=== PATIENT | female | born 1970 | race African-American/Black ===

== ENCOUNTER 2019-10-15 02:01 | Day surgery (SDC) | payer OTHER, SELFPAY ==
[2019-10-13 12:51] VITALS: BMI 37.4
--- NOTE | 2019-10-15 10:00 | WPDANESEPPF ---
Anes - Initial Pre Proc Eval Procedure: Operation Date: 10/15/19 10:00 Proposed Procedures p Esophagogastroduodenoscopy - Randall Bartholomew MD Date/Time: 10/15/19 10:00 Surgeon: Randall Bartholomew MD Pre Op Diagnosis: Epigastric Pain Patient Data Age: 49 Gender: F Height: 5 ft 5 in Weight: 102 kg Allergies Allergy/AdvReac Type Severity Reaction Status Date / Time adhesive tape Allergy Unknown Rash Verified 10/15/19 10:00 Home Medications Medication Instructions Recorded Confirmed Type alprazolam 0.5 mg PO QAM 10/13/19 10/13/19 History cyclobenzaprine 10 mg PO TID PRN 10/13/19 10/13/19 History ergocalciferol (vitamin D2) 50,000 unit PO WEEKLY 10/13/19 10/13/19 History estradiol 1 g VAGINAL 5XW 10/13/19 10/13/19 History hydrocodone-acetaminophen 1 tablet PO TID 10/13/19 10/13/19 History hydroxychloroquine 200 mg PO BID 10/13/19 10/13/19 History levothyroxine 50 mcg PO QAM 10/13/19 10/13/19 History lisinopril 40 mg PO QAM 10/13/19 10/13/19 History metoprolol succinate 200 mg PO HS 10/13/19 10/13/19 History pregabalin 150 mg PO BID 10/13/19 10/13/19 History quetiapine 50 mg PO HS 10/13/19 10/13/19 History ranitidine HCl 150 mg PO BID PRN 10/13/19 10/13/19 History risperidone 1 mg PO BID 10/13/19 10/13/19 History trazodone 150 mg PO HS 10/13/19 10/13/19 History venlafaxine 225 mg PO QAM 10/13/19 10/13/19 History Patient hx anesthesia problems: none Family hx anesthesia problems: none PMFSH Family History Family History Other Family history of malignant neoplasm Hypertension Social History Social History Smoking status: Never smoker Alcohol intake: never Anes - Eval Final PreProcedure Day of Procedure 10/15/19 10:00 Patient weight: obese Heart: regular rate and rhythm Lungs: clear to auscultation Airway: Mallampati scale class II Neurological: alert and oriented ASA classification: III Emergent: no Anesthetic plan: proceed Anesthesia type and monitoring: general GIVS and standard monitoring Informed Consent: The patient's anesthetic plan and its attendant risks and benefits were discussed with the patient/family/POA. Questions were solicited and answers provided to the satisfaction of the patient/family/POA.
[2019-10-15] MEDS: AMPICILLIN 2 GM/NS 100 ML 2 GM/100 ML BAG IVPB (10:03)
[2019-10-15 10:04] VITALS: BMI 37.0
--- NOTE | 2019-10-15 10:13 | PM.HPGS ---
History of Present Illness History of Present Illness Consent: Risks, benefits, and alternatives have been discussed and questions answered. Patient agrees to proceed with procedure. Chief complaint: Epigastric Pain Narrative: Chela Mcnulty is a 49 year old female who developed severe epigastric pain last week. She was seen in emergency room. CT scan was unremarkable that she was told by the emergency room that she needed EGD because there was possibly ?a hole? now she has persistent pain which becomes worse after eating. [facility] Family History Family History Other Family history of malignant neoplasm Hypertension Social History Social History Smoking status: Never smoker Alcohol intake: never Meds Home Medications and Allergies Home Medications Medication Instructions Recorded Confirmed Type alprazolam 0.5 mg PO QAM 10/13/19 10/13/19 History cyclobenzaprine 10 mg PO TID PRN 10/13/19 10/13/19 History ergocalciferol (vitamin D2) 50,000 unit PO WEEKLY 10/13/19 10/13/19 History estradiol 1 g VAGINAL 5XW 10/13/19 10/13/19 History hydrocodone-acetaminophen 1 tablet PO TID 10/13/19 10/13/19 History hydroxychloroquine 200 mg PO BID 10/13/19 10/13/19 History levothyroxine 50 mcg PO QAM 10/13/19 10/13/19 History lisinopril 40 mg PO QAM 10/13/19 10/13/19 History metoprolol succinate 200 mg PO HS 10/13/19 10/13/19 History pregabalin 150 mg PO BID 10/13/19 10/13/19 History quetiapine 50 mg PO HS 10/13/19 10/13/19 History ranitidine HCl 150 mg PO BID PRN 10/13/19 10/13/19 History risperidone 1 mg PO BID 10/13/19 10/13/19 History trazodone 150 mg PO HS 10/13/19 10/13/19 History venlafaxine 225 mg PO QAM 10/13/19 10/13/19 History Allergies Allergy/AdvReac Type Severity Reaction Status Date / Time adhesive tape Allergy Unknown Rash Verified 10/15/19 10:00 Exam Const: General: alert Orientation/consciousness: patient oriented x3 Resp: Auscultation: clear to auscultation bilaterally Cardio: Rhythm: regular rhythm GI: GI Palp: Yes Soft to palpation and No Tenderness to palpation present (GI) Neuro: General: patient oriented x3 Assessment and Plan Assessment and plan (1) Epigastric pain: Code(s): R10.13 - Epigastric pain Status: Acute Assessment and Plan: EGD with possible biopsy or dilatation or cautery.
[2019-10-15] MEDS: LACTATED RINGERS 1,000 ML 150 ML IV CONT (10:15)
[2019-10-15 10:37] VITALS: BP 118/66; PULSE 83; RESP 22; O2SAT 100
[2019-10-15 10:47] VITALS: BP 140/75; PULSE 83; RESP 22; O2SAT 100
[2019-10-15 10:57] VITALS: BP 163/77; PULSE 83; RESP 22; O2SAT 100
[2019-10-15] MEDS: HEPARIN SOD FLUSH 500 UNITS/5 ML SYRINGE IV PUSH (11:10)
== END 2019-10-15 11:21 | disposition home or self-care (01) ==
PROVIDERS: PCP Internal Medicine Infectious Disease; Visit Provider Internal Medicine Gastroenterology
PROC: 0DJ08ZZ Inspection of Upper Intestinal Tract, Via Natural or Artificial Opening Endoscopic (ICD-10-PCS; CPT 43235; principal; 2019-10-15 10:00)
DX: K21.0 Gastro-esophageal reflux disease with esophagitis (principal); I10 Essential (primary) hypertension; E66.9 Obesity, unspecified; Z68.37 Body mass index [BMI] 37.0-37.9, adult
CPT/HCPCS: 43239; 88305; J0290; J2704; J7120

== ENCOUNTER 2020-04-08 17:22 | Outpatient (CLI) | payer OTHER, SELFPAY ==
[2020-04-08 17:43] LABS: Basophils Percent Auto 0.6 % (0.2-1.2); Eosinophils Absolute Auto 0.2 K/mm3 (0-0.3); Eosinophils Percent Auto 2.5 % (0-4.4); Hematocrit 32.6 % (37.0-47.0); Immature Granulocyte Absolute 0.02 K/mm3 (0.00-0.031); Immature Granulocyte Percent A 0.3 % (0-0.5); Lymphocytes Percent Auto 42.8 % (18.3-44.2); Mean Corpuscular HGB Conc 30.7 g/dl (32-36); Mean Corpuscular Hemoglobin 23.9 pg (26-34); Mean Platelet Volume 8.9 fl (7.4-10.4); Monocytes Absolute Auto 0.6 K/mm3 (0.1-0.6); Monocytes Percent Auto 8.3 % (2.6-8.5); Neutrophils Absolute Auto 3.1 K/mm3 (1.3-6.7); Neutrophils Percent Auto 45.5 % (45.5-73.1); Platelet Count Result 295 k/mm3 (150-375); Red Blood Count 4.18 M/mm3 (4.2-5.4); Red Cell Distribution Width 18.6 % (11.5-14.5); White Blood Count 6.8 K/mm3 (4.5-10.0)
[2020-04-08 17:57] LABS: Alanine Aminotransferase 21 U/L (4-35); Albumin Level 3.9 g/dL (3.5-5.1); Alkaline Phosphatase 76 U/L (38-126); Anion Gap 10.3 mmol/L (7-16); Aspartate Amino Transferase 30 U/L (14-36); Bilirubin,Total 0.2 mg/dL (0.2-1.3); Blood Urea Nitrogen 8 mg/dL (7-17); Calcium 9.1 mg/dL (8.4-10.2); Carbon Dioxide 27 mmol/L (22-30); Chloride 104 mmol/L (98-107); Estimated Glomerular Filt Rate > 60; Glucose 98 mg/dL (65-105); Potassium 4.3 mmol/L (3.4-5.0); Sodium 137 mmol/L (137-145)
[2020-04-13 06:03] LABS: CA 27.29 15 U/mL (<38)
== END 2020-04-08 17:23 | disposition home or self-care (01) ==
PROVIDERS: PCP Internal Medicine Infectious Disease; Visit Provider Internal Medicine Hematology & Oncology
DX: C50.412 Malignant neoplasm of upper-outer quadrant of left female breast (principal); Z17.0 Estrogen receptor positive status [ER+]
CPT/HCPCS: 36415; 80053; 85025; 86300

== ENCOUNTER 2020-05-31 01:03 | Outpatient (CLI) | payer OTHER, SELFPAY ==
[2020-05-31 18:01] LABS: SARS-CoV-2 RNA PCR Negative
== END 2020-05-31 01:04 | disposition home or self-care (01) ==
LOC: ANHCOVIDDT 01:04
PROVIDERS: PCP Internal Medicine Infectious Disease; Visit Provider Orthopaedic Surgery
DX: Z01.812 Encounter for preprocedural laboratory examination (principal); Z20.828 Contact with and (suspected) exposure to other viral communicable diseases
CPT/HCPCS: 87635; C9803; U0003

== ENCOUNTER 2020-06-01 19:56 | Emergency (ER) | payer OTHER, SELFPAY ==
--- NOTE | ~2020-06-01 | CT_ITS ---
EXAMINATION: CT abdomen pelvis w con DATE: 06/01/2020 22:46 INDICATION: Right-sided abdominal pain. TECHNIQUE: Computed tomography (CT) of the abdomen and pelvis was performed with 100 mL Omnipaque-350 intravenous contrast. Automated exposure control and iterative reconstruction technique were employe d. The dose-length product was 967.57 mGy-cm. COMPARISON: 03/21/2018 FINDINGS: Minimal atelectasis in the dependent lower lobes. Heart size is normal. No pericardial or pleural eff usion. Bilateral breast implants. Distal tip of a central venous catheter at the superior cavoatrial junction. Cholecystectomy clips at the gallbladder fossa. Liver, pancreas, bilateral adrenal glands a nd kidneys are normal. A few small splenic calcifications consistent with old granulomatous disease. No abnormal bowel wall thickening or obstruction. Fluid in the small bowel and throughout the ascendi ng and transverse colon consistent with diarrhea. Appendix is not visualized and reportedly surgicall y absent. Bladder is normal. The uterus is not identified and has likely been surgically resected. No free intraperitoneal gas or fluid. No pathologically enlarged abdominal or pelvic lymphadenopathy. P ostoperative changes with scarring and surgical clips along the anterior pelvic wall. Moderate to sev ere lower lumbar facet osteoarthritis most prominent on the right at L4-L5. Otherwise mild lumbar spo ndylosis. IMPRESSION: 1. Fluid throughout the nondilated small bowel and proximal half of the colon consistent with diarrhe a. Correlate clinically for enteritis. Reviewed, dictated and finalized at location [facility]. IMPRESSION: 1. Fluid throughout the nondilated small bowel and proximal half of the colon c onsistent with diarrhea. Correlate clinically for enteritis.
--- NOTE | ~2020-06-01 | XR_ITS ---
EXAMINATION: XR chest 1V portable DATE: 06/01/2020 21:51 INDICATION: Port catheter positioning check TECHNIQUE: frontal view of the chest was obtained. COMPARISON: Chest radiograph dated 08/05/2019 FINDINGS: Right internal jugular central venous port catheter with distal tip near the superior cavoatrial junc tion. Subtle opacity left costophrenic angle. Calcified nodule at the left apex consistent with old g ranulomatous disease. No pulmonary edema, pleural effusion or pneumothorax. The cardiomediastinal conchita houette is normal. Reverse left total shoulder arthroplasty. IMPRESSION: 1. Mild opacity at the lateral left lung base most likely lingular atelectasis although differential includes pneumonia. Reviewed, dictated and finalized at location [facility].
[2020-06-01 20:00] VITALS: BP 156/101; PULSE 115; RESP 19; TEMP 36.1; O2SAT 98
[2020-06-01 20:35] LABS: Add Urine Microscopic? YES; Appearance Urine Clear (Clear); Bilirubin Urine Negative (Negative); Blood Urine 1+ (Negative); Color Urine Straw (Yellow); Glucose Urine UA Negative (Negative); Ketones Urine Negative (Negative); Leukocyte Esterase Ur Trace LEU/UL (Negative); Mucus Urine Rare /lpf; Nitrate Urine Negative (Negative); Protein Urine Negative (Negative); RBC Urine 0-2 /hpf (0-2); Specific Grav Ur 1.016 (1.001-1.035); Squamous Epithelial Cell Urine Few /hpf (Few); Urobilinogen Urine Negative mg/dL (<2.0); WBC Urine 0-3 /hpf
[2020-06-01 21:05] VITALS: BP 140/101; PULSE 95; RESP 12; O2SAT 96
[2020-06-01 21:47] LABS: Basophils Percent Auto 0.5 % (0.2-1.2); Eosinophils Absolute Auto 0.1 K/mm3 (0-0.3); Eosinophils Percent Auto 2.1 % (0-4.4); Hematocrit 37.5 % (37.0-47.0); Hemoglobin 11.9 g/dL (12.0-15.0); Immature Granulocyte Absolute 0.01 K/mm3 (0.00-0.031); Immature Granulocyte Percent A 0.2 % (0-0.5); Lymphocytes Absolute Auto 2.28 K/mm3 (0.9-3.2); Mean Corpuscular HGB Conc 31.7 g/dl (32-36); Mean Corpuscular Hemoglobin 25.8 pg (26-34); Mean Corpuscular Volume 81.2 fl (80-100); Mean Platelet Volume 8.9 fl (7.4-10.4); Monocytes Absolute Auto 0.4 K/mm3 (0.1-0.6); Monocytes Percent Auto 7.5 % (2.6-8.5); Neutrophils Percent Auto 50.7 % (45.5-73.1); Platelet Count Result 252 k/mm3 (150-375); Red Blood Count 4.62 M/mm3 (4.2-5.4); Red Cell Distribution Width 17.2 % (11.5-14.5); White Blood Count 5.8 K/mm3 (4.5-10.0)
[2020-06-01] MEDS: MORPHINE SULFATE (*CRX) 4 MG/ML INJ IV PUSH ×2 (21:51→23:17)
[2020-06-01 21:59] LABS: Alanine Aminotransferase 20 U/L (4-35); Albumin Level 4.1 g/dL (3.5-5.1); Alkaline Phosphatase 74 U/L (38-126); Anion Gap 9 mmol/L (8-16); Aspartate Amino Transferase 29 U/L (14-36); Bilirubin,Total 0.4 mg/dL (0.2-1.3); Blood Urea Nitrogen 16 mg/dL (7-17); Calcium 9.2 mg/dL (8.4-10.2); Carbon Dioxide 28 mmol/L (22-30); Chloride 104 mmol/L (98-107); Estimated CRCL calculation 83 ml/min; Estimated Glomerular Filt Rate > 60; Glucose 86 mg/dL (65-105); Lipase 209 U/L (23-300); Potassium 3.9 mmol/L (3.4-5.0); Sodium 141 mmol/L (137-145)
--- NOTE | 2020-06-01 22:03 | ED.GENADULT ---
HPI - General Adult General Chief complaint: Back Pain/Injury Stated complaint: right flank pain Time Seen by Provider: 06/01/20 20:59 History of Present Illness HPI narrative: Patient is a 50-year-old female who presents ER with right-sided abdominal pain. Is in very lateral aspect of the abdomen inferior to the ribs. No radiation. Worse with twisting and moving. No nausea/vomiting. No urinary frequency urgency. She has had no dysuria. No previous kidney stones. Reports her gallbladder is been removed. Patient has had surgery on that part of her body from previous breast cancer issues. Related Data Home Medications Medication Instructions Recorded Confirmed alprazolam 0.5 mg PO QAM 10/13/19 05/18/20 cyclobenzaprine 10 mg PO TID PRN 10/13/19 05/18/20 ergocalciferol (vitamin D2) 50,000 unit PO WEEKLY 10/13/19 05/18/20 hydrocodone-acetaminophen 1 tablet PO TID PRN 10/13/19 05/18/20 hydroxychloroquine 200 mg PO DAILY 10/13/19 05/18/20 levothyroxine 50 mcg PO QAM 10/13/19 05/18/20 lisinopril 40 mg PO QAM 10/13/19 05/18/20 metoprolol succinate 200 mg PO HS 10/13/19 05/18/20 quetiapine 300 mg PO HS 10/13/19 05/18/20 trazodone 150 mg PO HS 10/13/19 05/18/20 venlafaxine 225 mg PO QAM 10/13/19 05/18/20 ferrous sulfate 325 mg PO DAILY 05/18/20 05/18/20 pregabalin [Lyrica] 300 mg PO BID 05/18/20 05/18/20 Allergies Allergy/AdvReac Type Severity Reaction Status Date / Time adhesive tape Allergy Unknown Rash Verified 05/18/20 13:26 Review of Systems Review of Systems: All systems reviewed & are unremarkable except as noted in HPI and below Constitutional: Constitutional: Denies fever(s) and Denies weakness ENT: Denies nasal congestion and Denies sore throat Cardiovascular: Cardiovascular: Denies chest pain, Denies rapid heart rate and Denies radiating jaw, neck or arm pain Respiratory: Respiratory: Denies cough, Denies dyspnea and Denies wheezing Gastrointestinal: Gastrointestinal: Reports abdominal pain, Reports diarrhea, Denies nausea and Denies vomiting Genitourinary: Genitourinary: Denies nocturia and Denies dysuria PMFSH Social History Social History Smoking status: Never smoker Smokeless tobacco user: chewing tobacco Second hand tobacco smoke exposure: No Additional smoking assessment comments: chewed tobacco occassionally as a teen Alcohol intake: unknown Substance use: never Gender identity (if verbalized by the patient): Female Spiritual care concerns: No Exam Narrative: Exam Narrative: GENERAL: Well-appearing, well-nourished, and in no acute distress. HEAD: Normocephalic, atraumatic. CHEST: Clear to auscultation. No respiratory distress. HEART: Regular rate and rhythm. Normal peripheral pulses. ABDOMEN: Soft, tender palpation right lateral abdomen in the mid axillary line without guarding, nondistended. EXTREMITIES: Normal range of motion. No edema. SKIN: Warm, dry, no rash. NEURO: Alert and oriented x3. PSYCH: Normal mood and affect. Course Course Emergency Course: Informed of results. Patient has had diarrhea in the ER. Discharge home. Vital Signs Vital signs: Vital Signs Temperature 97 F L 06/01/20 20:00 Pulse Rate 115 H 06/01/20 20:00 Respiratory Rate 06/01/20 20:00 Blood Pressure 156/101 H 06/01/20 20:00 Pulse Oximetry 98 06/01/20 20:00 Temperature 97 F L 06/01/20 20:00 Pulse Rate 78 06/01/20 23:28 Respiratory Rate 06/01/20 23:28 Blood Pressure 133/87 06/01/20 23:28 Pulse Oximetry 99 06/01/20 23:28 Medical Decision Making Vital Signs Vital Signs: Vital Signs Temperature 97 F L 06/01/20 20:00 Pulse Rate 115 H 06/01/20 20:00 Respiratory Rate 06/01/20 20:00 Blood Pressure 156/101 H 06/01/20 20:00 Pulse Oximetry 98 06/01/20 20:00 Temperature 97 F L 06/01/20 20:00 Pulse Rate 78 06/01/20 23:28 Respiratory Rate 19 06/01/20 23:28 Blood Pressure 133/
--- NOTE | 2020-06-01 22:51 | PC.NURSE ---
Pt requesting more pain medication. ERP notified.
[2020-06-01] MEDS: CENTRAL LINE FLUSH 10 ML IV PUSH (23:08)
[2020-06-01] MEDS: DICYCLOMINE HCL 10 MG CAPSULE 20 MG PO (23:18)
[2020-06-01 23:28] VITALS: BP 133/87; PULSE 78; RESP 19; O2SAT 99
[2020-06-01 23:50] VITALS: BP 131/80; PULSE 77; RESP 12; O2SAT 97
[2020-06-01] MEDS: HEPARIN SOD FLUSH 500 UNITS/5 ML SYRINGE IV PUSH (23:53)
== END 2020-06-01 23:50 | disposition home or self-care (01) ==
PROVIDERS: Emergency Provider Emergency Medicine; PCP Internal Medicine Infectious Disease
DX: K52.9 Noninfective gastroenteritis and colitis, unspecified (principal); R10.9 Unspecified abdominal pain; Z87.891 Personal history of nicotine dependence; R91.8 Other nonspecific abnormal finding of lung field
CPT/HCPCS: 36415; 71045; 74177; 80053; 81001; 83690; 85025; 96374; 96376; 99284; A9270; J2270; Q9967

== ENCOUNTER 2020-07-16 17:55 | Emergency (ER) | payer OTHER, SELFPAY ==
[2020-07-16] VITALS (7 sets, daily range): BP systolic 123–135; BP diastolic 78–97; PULSE 74–96; RESP 14–18; TEMP 36.6; O2SAT 97–99
--- NOTE | ~2020-07-16 | CT_ITS ---
EXAMINATION: CT abdomen pelvis w con DATE: 07/16/2020 20:20 INDICATION: Generalized abdominal pain, lower central abdominal pain. Nausea. TECHNIQUE: Computed tomography (CT) of the abdomen and pelvis was performed with 100 cc Omnipaque 350 intravenous contrast. Automated exposure control and iterative reconstruction technique were employe d. Exam dose: 1022.71 mGy-cm total exam DLP. COMPARISON: 06/01/2020 CT abdomen pelvis FINDINGS: Mild groundglass infiltrates and/or atelectasis in the lower lung zones. Bilateral breast implants. Mild cardiomegaly. No pericardial or pleural effusion. Status post cholecystectomy. No bile duct or pancreatic duct dilatation. No hepatic, splenic, pancrea tic, and adrenal or renal space-occupying mass lesion is detected. No urinary tract calculus or hydro ureteronephrosis. The urinary bladder is unremarkable. Status post hysterectomy. There is a prominent amount of fecal material within the colon but no evidence of bowel obstruction, bowel wall thickening, pneumatosis or intraperitoneal free air. Small fat-containing umbilical hernia. Lower anterior pelvic wall repair. Included skeletal structures are unremarkable. IMPRESSION: Mild groundglass infiltrates and/or atelectasis in the lower lung zones Status post cholecystectomy Status post hysterectomy Mild cardiomegaly Reviewed, dictated and finalized at [facility]. Reviewed, dictated and finalized at location [facility]. 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
[2020-07-16 18:59] LABS: Basophils Percent Auto 0.5 % (0.2-1.2); Eosinophils Absolute Auto 0.1 K/mm3 (0-0.3); Eosinophils Percent Auto 1.4 % (0-4.4); Hematocrit 36.9 % (37.0-47.0); Hemoglobin 11.9 g/dL (12.0-15.0); Immature Granulocyte Absolute 0.02 K/mm3 (0.00-0.031); Immature Granulocyte Percent A 0.3 % (0-0.5); Lymphocytes Absolute Auto 2.06 K/mm3 (0.9-3.2); Mean Corpuscular HGB Conc 32.2 g/dl (32-36); Mean Corpuscular Hemoglobin 26.7 pg (26-34); Mean Corpuscular Volume 82.7 fl (80-100); Mean Platelet Volume 8.4 fl (7.4-10.4); Monocytes Absolute Auto 0.5 K/mm3 (0.1-0.6); Monocytes Percent Auto 6.9 % (2.6-8.5); Neutrophils Absolute Auto 4.6 K/mm3 (1.3-6.7); Neutrophils Percent Auto 62.9 % (45.5-73.1); Platelet Count Result 293 k/mm3 (150-375); Red Blood Count 4.46 M/mm3 (4.2-5.4); Red Cell Distribution Width 16.4 % (11.5-14.5); White Blood Count 7.4 K/mm3 (4.5-10.0)
[2020-07-16 19:04] LABS: Add Urine Microscopic? YES; Appearance Urine Clear (Clear); Bilirubin Urine Negative (Negative); Blood Urine Negative (Negative); Color Urine Yellow (Yellow); Glucose Urine UA Negative (Negative); Ketones Urine Negative (Negative); Leukocyte Esterase Ur 1+ LEU/UL (Negative); Mucus Urine Rare /lpf; Nitrate Urine Negative (Negative); Protein Urine Negative (Negative); RBC Urine 0-2 /hpf (0-2); Specific Grav Ur 1.014 (1.001-1.035); Squamous Epithelial Cell Urine Few /hpf (Few); Urobilinogen Urine Negative mg/dL (<2.0)
[2020-07-16 19:14] LABS: Alanine Aminotransferase 21 U/L (4-35); Albumin Level 4.1 g/dL (3.5-5.1); Alkaline Phosphatase 69 U/L (38-126); Anion Gap 10 mmol/L (8-16); Aspartate Amino Transferase 27 U/L (14-36); Bilirubin,Total 0.3 mg/dL (0.2-1.3); Blood Urea Nitrogen 19 mg/dL (7-17); Carbon Dioxide 25 mmol/L (22-30); Chloride 103 mmol/L (98-107); Estimated CRCL calculation 82 ml/min; Estimated Glomerular Filt Rate > 60; Glucose 109 mg/dL (65-105); Lipase 128 U/L (23-300); Potassium 4.2 mmol/L (3.4-5.0); Sodium 138 mmol/L (137-145)
--- NOTE | 2020-07-16 19:20 | PC.NURSE ---
REPORT TO DARRON GRANADOS AT THIS TIME, HE HAS ASSUMED PT CARE.
[2020-07-16] MEDS: LACTATED RINGERS 1,000 ML 999 ML IV CONT (19:41)
[2020-07-16] MEDS: ONDANSETRON INJ 4 MG/2 ML VIAL IV PUSH (19:42)
[2020-07-16] MEDS: HYDROmorphone HCL INJ (*CRX) 1 MG/ML SYR IV PUSH (19:42)
--- NOTE | 2020-07-16 19:49 | ED.ABDPAIN ---
HPI - Abdominal Pain General Chief Complaint: Abdominal Pain Stated Complaint: abd pain Time Seen by Provider: 07/16/20 19:03 Source: patient Mode of arrival: ambulatory Limitations: no limitations History of Present Illness HPI narrative: This patient is a 50 year old female who presents for evaluation of mid abdominal pain since Sunday. She developed sudden onset pain after having a bowel movement. Her pain has remained constant since Sunday. She has associated nausea but no vomiting. She reports her last bowel movement was 2 days ago but she is passing flatus. She denies fever or chills. She has been taking her chronic hydrocodone and tylenol for her pain without relief. MD elicited complaint: abdominal pain Pain Consistency: constant Related Data Home Medications Medication Instructions Recorded Confirmed alprazolam 0.5 mg PO QAM 10/13/19 05/18/20 cyclobenzaprine 10 mg PO TID PRN 10/13/19 05/18/20 ergocalciferol (vitamin D2) 50,000 unit PO WEEKLY 10/13/19 05/18/20 hydrocodone-acetaminophen 1 tablet PO TID PRN 10/13/19 05/18/20 hydroxychloroquine 200 mg PO DAILY 10/13/19 05/18/20 levothyroxine 50 mcg PO QAM 10/13/19 05/18/20 lisinopril 40 mg PO QAM 10/13/19 05/18/20 metoprolol succinate 200 mg PO HS 10/13/19 05/18/20 quetiapine 300 mg PO HS 10/13/19 05/18/20 trazodone 150 mg PO HS 10/13/19 05/18/20 venlafaxine 225 mg PO QAM 10/13/19 05/18/20 ferrous sulfate 325 mg PO DAILY 05/18/20 05/18/20 pregabalin [Lyrica] 300 mg PO BID 05/18/20 05/18/20 Allergies Allergy/AdvReac Type Severity Reaction Status Date / Time adhesive tape Allergy Unknown Rash Verified 07/16/20 18:09 Review of Systems Review of Systems: All systems reviewed & are unremarkable except as noted in HPI and below Constitutional: Constitutional: Denies chills and Denies fever(s) Gastrointestinal: Gastrointestinal: Reports abdominal pain, Reports nausea and Denies vomiting Genitourinary: Genitourinary: Denies hematuria, Denies dysuria and Denies vaginal discharge Musculoskeletal: Musculoskeletal: Denies back pain [facility] Past Medical History Medical History Breast cancer HTN (hypertension) Lupus (systemic lupus erythematosus) Sepsis Surgical History Surgical History (Updated 07/16/20 @ 19:53 by Cristine Weldon MD) H/O mastectomy H/O: hysterectomy Family History Family History Other Family history of malignant neoplasm Hypertension Social History Social History Smoking status: Never smoker Smokeless tobacco user: chewing tobacco Second hand tobacco smoke exposure: No Additional smoking assessment comments: chewed tobacco occassionally as a teen Alcohol intake: unknown Substance use: never Gender identity (if verbalized by the patient): Female Spiritual care concerns: No Exam Const: General: no acute distress and alert Orientation/consciousness: patient oriented x3 HENMT: Head: atraumatic Face and sinus: face symmetric Mouth: Yes Normal oral and palatal mucosa present and Yes oropharynx normal Eyes: EOM: EOMs intact bilaterally Chest: Chest palpation & inspection: normal inspection of the chest Resp: Effort & Inspection: normal respiratory effort and no retractions Auscultation: clear to auscultation bilaterally Cardio: Rate: regular rate Rhythm: regular rhythm Heart sounds: no murmurs GI: GI Palp: Yes Soft to palpation, Yes Tenderness to palpation present (GI) (Diffuse), No Guarding due to palpation present (GI), No Rigid due to palpation, No Hernia present and No Palpable mass present Skin: General skin exam: normal color Rashes: no rashes Neuro: General: patient oriented x3 and moves all extremities Psych: Mental Status: mental status grossly normal Affect: normal affect Course Vital Signs Vital signs: Vital Signs T
--- NOTE | 2020-07-16 19:55 | ED.ABDPAIN ---
HPI - Abdominal Pain General Chief Complaint: Abdominal Pain Stated Complaint: abd pain Time Seen by Provider: 07/16/20 19:03 Source: patient Mode of arrival: ambulatory Limitations: no limitations History of Present Illness HPI narrative: This patient is a 50 year old female who presents for mid abdominal pain since Sunday. She states this pain started after having a bowel movement, and it has remained constant. She has been taking hydrocodone and tylenol for her pain without relief. She reports nausea but no vomiting. Her last bowel movement was 2 days ago but she reports she is passing flatus. She denies similar pain in the past. MD elicited complaint: abdominal pain Pain Consistency: constant Related Data Home Medications Medication Instructions Recorded Confirmed alprazolam 0.5 mg PO QAM 10/13/19 05/18/20 cyclobenzaprine 10 mg PO TID PRN 10/13/19 05/18/20 ergocalciferol (vitamin D2) 50,000 unit PO WEEKLY 10/13/19 05/18/20 hydrocodone-acetaminophen 1 tablet PO TID PRN 10/13/19 05/18/20 hydroxychloroquine 200 mg PO DAILY 10/13/19 05/18/20 levothyroxine 50 mcg PO QAM 10/13/19 05/18/20 lisinopril 40 mg PO QAM 10/13/19 05/18/20 metoprolol succinate 200 mg PO HS 10/13/19 05/18/20 quetiapine 300 mg PO HS 10/13/19 05/18/20 trazodone 150 mg PO HS 10/13/19 05/18/20 venlafaxine 225 mg PO QAM 10/13/19 05/18/20 ferrous sulfate 325 mg PO DAILY 05/18/20 05/18/20 pregabalin [Lyrica] 300 mg PO BID 05/18/20 05/18/20 Allergies Allergy/AdvReac Type Severity Reaction Status Date / Time adhesive tape Allergy Unknown Rash Verified 07/16/20 18:09 Review of Systems Review of Systems: All systems reviewed & are unremarkable except as noted in HPI and below Constitutional: Constitutional: Denies chills and Denies fever(s) Cardiovascular: Cardiovascular: Denies chest pain Respiratory: Respiratory: Denies cough and Denies dyspnea Gastrointestinal: Gastrointestinal: Reports abdominal pain, Denies diarrhea, Reports nausea and Denies vomiting Genitourinary: Genitourinary: Denies nocturia and Denies dysuria [facility] Past Medical History Medical History (Updated 07/17/20 @ 00:00 by Cornelia Whitney) Breast cancer HTN (hypertension) Lupus (systemic lupus erythematosus) Sepsis Surgical History Surgical History (Updated 07/16/20 @ 19:53 by Cristine Weldon MD) H/O mastectomy H/O: hysterectomy Family History Family History Other Family history of malignant neoplasm Hypertension Social History Social History Smoking status: Never smoker Smokeless tobacco user: chewing tobacco Second hand tobacco smoke exposure: No Additional smoking assessment comments: chewed tobacco occassionally as a teen Alcohol intake: unknown Substance use: never Gender identity (if verbalized by the patient): Female Spiritual care concerns: No Exam Const: General: no acute distress and alert Orientation/consciousness: patient oriented x3 HENMT: Head: atraumatic Face and sinus: face symmetric Throat: posterior oropharynx normal Eyes: EOM: EOMs intact bilaterally Resp: Effort & Inspection: normal respiratory effort and no retractions Auscultation: clear to auscultation bilaterally Cardio: Rate: regular rate Rhythm: regular rhythm Heart sounds: no murmurs GI: GI Palp: Yes Soft to palpation, Yes Tenderness to palpation present (GI) (Diffuse), No Guarding due to palpation present (GI), No Rigid due to palpation and No Hernia present Auscultation: Hypoactive bowel sounds present Skin: General skin exam: normal color Rashes: no rashes Neuro: General: patient oriented x3 and moves all extremities Psych: Mental Status: mental status grossly normal Affect: normal affect Course Reevaluation(s) Reevaluation #1: I discussed with patient about labs and CT . CT shows constipation.She reports she takes a pil
[2020-07-16] MEDS: DICYCLOMINE HCL INJ 20 MG/2 ML VIAL IM (20:58)
[2020-07-16] MEDS: HEPARIN SOD FLUSH 500 UNITS/5 ML SYRINGE (21:43)
== END 2020-07-16 22:00 | disposition home or self-care (01) ==
PROVIDERS: Emergency Medicine; Emergency Provider General Practice; PCP Internal Medicine Infectious Disease
DX: K59.00 Constipation, unspecified (principal); R10.9 Unspecified abdominal pain; M32.9 Systemic lupus erythematosus, unspecified; I10 Essential (primary) hypertension; Z85.3 Personal history of malignant neoplasm of breast; Z90.10 Acquired absence of unspecified breast and nipple; F17.220 Nicotine dependence, chewing tobacco, uncomplicated; I51.7 Cardiomegaly; R91.8 Other nonspecific abnormal finding of lung field
CPT/HCPCS: 36415; 74177; 80053; 81001; 83690; 85025; 96361; 96372; 96374; 96375; 99284; J0500; J1170; J2405; J7120; Q9967

== ENCOUNTER 2020-09-05 18:53 | Emergency (ER) | payer OTHER, SELFPAY ==
--- NOTE | ~2020-09-05 | XR_ITS ---
EXAMINATION: XR chest 1V portable INDICATION: Cough TECHNIQUE: Portable AP chest at 1933 hours COMPARISON: 06/01/2020 FINDINGS: A right internal jugular Port-A-Cath ends with its tip in the distal superior vena cava. Th ere are airspace opacities of the mid and lower lung zones. A mild diffuse interstitial pattern is pr esent. The heart size is normal. Changes of left total shoulder arthroplasty are noted. IMPRESSION: 1. Mild diffuse interstitial pattern and airspace opacities of the mid and lower lung zones which cou ld reflect pulmonary edema and/or pneumonia. Reviewed, dictated and finalized at location A. ERTY CLAIMS MANAGER IMPRESSION: 1. Mild diffuse interstitial pattern and airspace opacities of the mid and lowe r lung zones which could reflect pulmonary edema and/or pneumonia.
[2020-09-05 18:54] VITALS: BP 138/89; PULSE 113; RESP 20; TEMP 37.1; O2SAT 98
[2020-09-05 19:18] VITALS: BP 115/75; PULSE 85; RESP 16; O2SAT 98
--- NOTE | 2020-09-05 19:40 | ED.URI ---
HPI - URI/Sore Throat General Chief Complaint: Upper Respiratory Infection Stated Complaint: fever/covid s/sx Time Seen by Provider: 09/05/20 19:11 Source: patient Mode of arrival: ambulatory Limitations: clinical condition History of Present Illness HPI Narrative: Patient is a 50-year-old female who presents complaining of cough, body aches, chills, and fatigue x3 days. She reports adult son tested positive last week, and has been tested positive yesterday for Covid. Patient is tearful. She denies taking [id number] medications at this time. MD elicited complaint: cough Related Data Home Medications Medication Instructions Recorded Confirmed alprazolam 0.5 mg PO QAM 10/13/19 05/18/20 cyclobenzaprine 10 mg PO TID PRN 10/13/19 05/18/20 ergocalciferol (vitamin D2) 50,000 unit PO WEEKLY 10/13/19 05/18/20 hydrocodone-acetaminophen 1 tablet PO TID PRN 10/13/19 05/18/20 hydroxychloroquine 200 mg PO DAILY 10/13/19 05/18/20 levothyroxine 50 mcg PO QAM 10/13/19 05/18/20 lisinopril 40 mg PO QAM 10/13/19 05/18/20 metoprolol succinate 200 mg PO HS 10/13/19 05/18/20 quetiapine 300 mg PO HS 10/13/19 05/18/20 trazodone 150 mg PO HS 10/13/19 05/18/20 venlafaxine 225 mg PO QAM 10/13/19 05/18/20 ferrous sulfate 325 mg PO DAILY 05/18/20 05/18/20 pregabalin [Lyrica] 300 mg PO BID 05/18/20 05/18/20 Allergies Allergy/AdvReac Type Severity Reaction Status Date / Time adhesive tape Allergy Unknown Rash Verified 07/16/20 18:09 Review of Systems Review of Systems: Narrative: CONSTITUTIONAL: Reports fever, chills, and generalized body aches. EYES: Denies visual changes, redness, or discharge. ENT: Denies rhinorrhea, congestion, sore throat, or otalgia. CARDIOVASCULAR: Denies chest pain, palpitations, or edema. RESPIRATORY: Reports cough and mild dyspnea. GASTROINTESTINAL: Denies abdominal pain, nausea, vomiting, or diarrhea. GENITOURINARY: Denies dysuria or hematuria. SKIN: Denies rash or itching. MUSCULOSKELETAL: Denies back pain, joint pain, or myalgia. NEUROLOGIC: Denies headache, numbness, dizziness, or weakness. PSYCHIATRIC: Denies anxiety or depression. [facility] Past Medical History Medical History Breast cancer HTN (hypertension) Lupus (systemic lupus erythematosus) Sepsis Surgical History Surgical History (Updated 07/16/20 @ 19:53 by Cristine Weldon MD) H/O mastectomy H/O: hysterectomy Family History Family History Other Family history of malignant neoplasm Hypertension Social History Social History Smoking status: Never smoker Smokeless tobacco user: chewing tobacco Second hand tobacco smoke exposure: No Additional smoking assessment comments: chewed tobacco occassionally as a teen Alcohol intake: unknown Substance use: never Gender identity (if verbalized by the patient): Female Spiritual care concerns: No Exam Narrative: Exam Narrative: GENERAL: Well-appearing, well-nourished, and in no acute distress. HEAD: Normocephalic, atraumatic. EYES: No redness or drainage. ENT: Mucous membranes pink and moist. CHEST: No respiratory distress. HEART: Regular rate and rhythm. No murmur appreciated. Normal peripheral pulses. EXTREMITIES: Normal range of motion. No edema. SKIN: Warm, dry, no rash. NEURO: No focal deficits. Alert and oriented x3. Gait steady. PSYCH: Normal affect. No signs of depression or anxiety. Course Vital Signs Vital signs: Vital Signs Temperature 37.1 C 09/05/20 18:54 Pulse Rate 113 H 09/05/20 18:54 Respiratory Rate 20 09/05/20 18:54 Blood Pressure 138/89 09/05/20 18:54 Pulse Oximetry 98 09/05/20 18:54 Temperature 37.1 C 09/05/20 18:54 Pulse Rate 85 09/05/20 19:18 Respiratory Rate 16 09/05/20 19:18 Blood Pressure 115/75 09/05/20 19:18 Pulse Oximetry 98 09/05/20 19:18 Re
[2020-09-05 20:14] VITALS: BP 130/90; PULSE 89; RESP 22; O2SAT 96
[2020-09-06 18:50] LABS: SARS-CoV-2 RNA PCR Positive
== END 2020-09-05 20:17 | disposition home or self-care (01) ==
PROVIDERS: Emergency Provider Nurse Practitioner; PCP Internal Medicine Infectious Disease
DX: U07.1 COVID-19 (principal); J06.9 Acute upper respiratory infection, unspecified; I10 Essential (primary) hypertension; M32.9 Systemic lupus erythematosus, unspecified; Z90.10 Acquired absence of unspecified breast and nipple; Z85.3 Personal history of malignant neoplasm of breast; Z87.891 Personal history of nicotine dependence; R91.8 Other nonspecific abnormal finding of lung field
CPT/HCPCS: 71045; 99283; C9803; U0003

== ENCOUNTER 2021-02-16 18:18 | Emergency (ER) | payer OTHER, SELFPAY ==
--- NOTE | ~2021-02-16 | XR_ITS ---
XR hand RT min 3V DATE: 02/16/2021 19:02 INDICATION: Right hand pain for 2 weeks, mainly of the third digit TECHNIQUE: 3 views of right hand COMPARISON: None FINDINGS: No fracture, dislocation, periosteal reaction or bone destruction. Mild osteoarthritic changes are noted at the first carpometacarpal, first metacarpophalangeal and shun e interphalangeal joints including the distal interphalangeal joints of the second through fourth dig its. IMPRESSION: Polyarticular osteoarthritis, most prominent at the distal interphalangeal joint of third digit Reviewed, dictated and finalized at location A. IMPRESSION: Polyarticular osteoarthritis, most prominent at the distal interpha langeal joint of third digit
[2021-02-16 18:41] VITALS: BP 148/72; PULSE 87; RESP 18; TEMP 36.1; O2SAT 100
--- NOTE | 2021-02-16 19:27 | ED.GENADULT ---
HPI - General Adult General Chief complaint: Extremity Problem,Nontraumatic Stated complaint: right hand swelling Time Seen by Provider: 02/16/21 18:51 Source: patient and RN notes reviewed Mode of arrival: ambulatory Limitations: no limitations History of Present Illness HPI narrative: Patient is a 50-year-old female who presents with right middle digit finger for the last 2-1/2 weeks denies injury or trauma notes aching pain worse with touch and palpation to involve the digit patient has not been seen for this complaint she has taken her home narcotics and pain medication with minimal improvement patient on arrival does not appear distressed denies other injuries or complaints Related Data Home Medications Medication Instructions Recorded Confirmed alprazolam 0.5 mg PO QAM 10/13/19 05/18/20 cyclobenzaprine 10 mg PO TID PRN 10/13/19 05/18/20 ergocalciferol (vitamin D2) 50,000 unit PO WEEKLY 10/13/19 05/18/20 hydrocodone-acetaminophen 1 tablet PO TID PRN 10/13/19 05/18/20 hydroxychloroquine 200 mg PO DAILY 10/13/19 05/18/20 levothyroxine 50 mcg PO QAM 10/13/19 05/18/20 lisinopril 40 mg PO QAM 10/13/19 05/18/20 metoprolol succinate 200 mg PO HS 10/13/19 05/18/20 quetiapine 300 mg PO HS 10/13/19 05/18/20 trazodone 150 mg PO HS 10/13/19 05/18/20 venlafaxine 225 mg PO QAM 10/13/19 05/18/20 ferrous sulfate 325 mg PO DAILY 05/18/20 05/18/20 pregabalin [Lyrica] 300 mg PO BID 05/18/20 05/18/20 Allergies Allergy/AdvReac Type Severity Reaction Status Date / Time adhesive tape Allergy Unknown Rash Verified 02/16/21 18:43 Review of Systems Review of Systems: All systems reviewed & are unremarkable except as noted in HPI and below PMFSH Past Medical History Medical History Breast cancer HTN (hypertension) Lupus (systemic lupus erythematosus) Sepsis Surgical History Surgical History H/O mastectomy H/O: hysterectomy Family History Family History Other Family history of malignant neoplasm Hypertension Social History Social History Smoking status: Never smoker Smokeless tobacco user: chewing tobacco Second hand tobacco smoke exposure: No Additional smoking assessment comments: chewed tobacco occassionally as a teen Alcohol intake: unknown Substance use: never Gender identity (if verbalized by the patient): Female Spiritual care concerns: No Exam Narrative: Exam Narrative: GENERAL: Well-appearing, well-nourished, and in no acute distress. HEAD: Normocephalic, atraumatic. EYES: PERRLA and EOMI. ENT: Nares clear, no rhinorrhea or epistaxis. Mucous membranes moist. CHEST: Clear to auscultation. No respiratory distress. No wheezes rales or rhonchi HEART: Regular rate and rhythm. No murmur heard. EXTREMITIES: Patient with tenderness to palpation of the right middle phalanx there is no deformity there is no pain in the hand or the wrist SKIN: Warm, dry, no rash. NEURO: No focal deficits. Alert and oriented x3. Neurovascularly intact PSYCH: Normal mood and affect. Course Course Emergency Course: Patient in the room no distress aware of case findings treatment plan and diagnosis agreeing to follow-up as instructed or to return if symptoms worsen or concerns made aware of case findings to include x-ray placed in metal finger splint and Kiko wrap Vital Signs Vital signs: Vital Signs Temperature 97.0 F L 02/16/21 18:41 Pulse Rate 87 02/16/21 18:41 Respiratory Rate 18 02/16/21 18:41 Blood Pressure 148/72 H 02/16/21 18:41 Pulse Oximetry 100 02/16/21 18:41 Temperature 97.0 F L 02/16/21 18:41 Pulse Rate 87 02/16/21 18:41 Respiratory Rate 18 02/16/21 18:41 Blood Pressure 148/72 H 02/16/21 18:41 Pulse Oximetry 100 02/16/21 18:41 Medical Decision Making
== END 2021-02-16 19:41 | disposition home or self-care (01) ==
PROVIDERS: Emergency Provider Family Medicine; PCP Internal Medicine Infectious Disease
DX: M79.644 Pain in right finger(s) (principal); I10 Essential (primary) hypertension; Z85.3 Personal history of malignant neoplasm of breast; M32.9 Systemic lupus erythematosus, unspecified; Z90.10 Acquired absence of unspecified breast and nipple; Z87.891 Personal history of nicotine dependence; M19.041 Primary osteoarthritis, right hand
CPT/HCPCS: 29130; 73130; 99283

== ENCOUNTER 2021-03-08 17:55 | Emergency (ER) | payer OTHER, SELFPAY ==
[2021-03-08 18:59] VITALS: BP 164/111; PULSE 90; RESP 18; TEMP 36.9; O2SAT 99
[2021-03-08 21:01] VITALS: BP 169/96; PULSE 95; RESP 22; TEMP 36.4; O2SAT 100
--- NOTE | 2021-03-08 21:33 | PC.NURSE ---
RN Rounding on pt. rooms. pt. called out Excuse me, I have been here longer than those patients are you my nurse and are you going to come see me? RN informed pt. that everyone is going to be seen and RN would be there shortly. 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 pt. 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
--- NOTE | 2021-03-08 22:00 | PC.NURSE ---
RN and office automation technician attempted to close pt. door multiple times for pt. privacy. pt. repeatedly opened her door saying she was claustrophobic.
--- NOTE | 2021-03-08 22:28 | PC.NURSE ---
Pt. stopped RN saying how many more people are in front of me the doctor done skipped me ten times. RN educated pt. that patients are seen and tx based on acuity not first come first serve. pt. states well tell the doctor to come see me please. 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 pt. say well i want to leave let me sign out. Per CRIS PRETTY paperwork does not need to be obtained since the pt. has not been seen by a doctor. pt. ambulated out of ed w/ steady gait and no acute distress.
== END 2021-03-08 23:05 | disposition left against medical advice (07) ==
PROVIDERS: Emergency Provider Emergency Medicine; PCP Internal Medicine Infectious Disease
DX: M54.2 Cervicalgia (principal)
CPT/HCPCS: 99199

== ENCOUNTER 2021-03-14 17:48 | Outpatient (CLI) | payer OTHER, SELFPAY ==
--- NOTE | ~2021-03-14 | XR_ITS ---
EXAMINATION: XR cervical spine 4-5V EXAM DATE: 03/14/2021 18:21 INDICATION: Cervicalgia. TECHNIQUE: Cervical spine frontal, lateral, lateral swimmers, and open-mouth odontoid projections. C omparison is made to prior examination from 04/28/2013. FINDINGS: Interval disc replacement at C5-6. There are moderate-sized endplate osteophytes at C4-5, mild at C3-4. Overall mild to moderate cervical arthropathy. Mild reversal of normal cervical lordosi s. Prevertebral soft tissue and pre-dens space are within normal limits. The odontoid process is inta ct. The lateral masses of C1 line up with C2. Lung apices unremarkable. IMPRESSION: 1. C5-6 disc replacement. 2. Mild to moderate cervical spondylosis. 3. Reversal of normal cervical lordosis. Reviewed, dictated and finalized at location A.
--- NOTE | ~2021-03-14 | XR_ITS ---
EXAMINATION: XR chest 2V EXAM DATE: 03/14/2021 18:21 INDICATION: Cervicalgia. History of pneumonia. TECHNIQUE: Frontal and lateral projections of the chest obtained and reviewed. Comparison is made to prior examination from 09/05/2020. FINDINGS: Resolution of previously seen pneumonia. There is right-sided portacatheter, IJ approach. T here is a left shoulder replacement. Cervical disc replacement. There are cholecystectomy clips. No c onfluent consolidation, pneumothorax or pleural effusion suspected. Cardiomediastinal silhouette is n ormal. Bones are unremarkable. IMPRESSION: 1. No acute cardiopulmonary findings. Reviewed, dictated and finalized at location A.
== END 2021-03-14 17:49 | disposition home or self-care (01) ==
PROVIDERS: PCP Internal Medicine Infectious Disease; Visit Provider Nurse Practitioner Adult Health
DX: Z87.01 Personal history of pneumonia (recurrent) (principal); M47.892 Other spondylosis, cervical region
CPT/HCPCS: 71046; 72050

== ENCOUNTER 2021-04-21 16:08 | Emergency (ER) | payer OTHER, SELFPAY ==
--- NOTE | ~2021-04-21 | XR_ITS ---
XR lumbar spine 2-3V DATE: 04/21/2021 21:53 INDICATION: Lumbar pain. History of malignancy TECHNIQUE: AP, lateral, coned lateral lumbosacral views COMPARISON: 11/30/2017 lumbar spine FINDINGS: There is degenerative disc disease, mild at L1-2, moderate at L2-3 and L3-4, mild at L4-5. There is prominent degenerative change at the apophyseal joints at L4-5 and L5-S1. No fracture or bone destruction or spondylolisthesis. The lumbar pedicles are intact. The sacroiliac joints are intact. Surgical clips, right upper quadrant, consistent with cholecystectomy. Bilateral surgical clips overl nathan the pelvis. IMPRESSION: Mild to moderate degenerative changes Reviewed, dictated and finalized at location A.
--- NOTE | ~2021-04-21 | XR_ITS ---
XR chest 2V DATE: 04/21/2021 23:26 INDICATION: Shortness of breath TECHNIQUE: PA and lateral views COMPARISON: 03/14/2021 2 view chest FINDINGS: Right internal jugular central venous Port-A-Cath; catheter tip overlies superior vena cava . C5-6 cervical disks replacement. Left glenohumeral joint replacement. Normal heart size. There is old pulmonary granulomatous disease including left upper lobe calcified p ulmonary granuloma and calcified left hilar and aortic pulmonary window nodes. No pulmonary infiltrate or consolidation, pleural effusion or pulmonary vascular congestion or pneumo thorax is detected. Status post cholecystectomy. IMPRESSION: No active cardiopulmonary disease Reviewed, dictated and finalized at location A.
[2021-04-21 16:20] VITALS: BP 138/95; PULSE 78; RESP 16; TEMP 37.2; O2SAT 100
[2021-04-21 18:24] LABS: Add Urine Microscopic? YES; Appearance Urine Clear (Clear); Bilirubin Urine Negative (Negative); Blood Urine Negative (Negative); Color Urine Yellow (Yellow); Glucose Urine UA Negative (Negative); Ketones Urine Negative (Negative); Leukocyte Esterase Ur Trace LEU/UL (Negative); Mucus Urine Rare /lpf; Nitrate Urine Negative (Negative); Protein Urine Negative (Negative); RBC Urine 0-2 /hpf (0-2); Specific Grav Ur 1.015 (1.001-1.035); Squamous Epithelial Cell Urine Occasional /hpf (Few); Urobilinogen Urine Negative mg/dL (<2.0); WBC Urine 0-3 /hpf
[2021-04-21 20:07] VITALS: BP 163/90; PULSE 64; TEMP 36.7; O2SAT 100
[2021-04-21 21:11] VITALS: BP 158/101; PULSE 63; RESP 18; O2SAT 100
--- NOTE | 2021-04-21 21:53 | ED.BACK ---
HPI - Back Pain/Injury General Chief Complaint: Back Pain/Injury Stated Complaint: weakness, right hip/leg pain Time Seen by Provider: 04/21/21 21:30 History of Present Illness HPI Narrative: Patient presents low back pain. Reports symptoms present for the past 3 days. She first noticed symptoms when she was outside walking a lot and then developed a limp on the right leg due to pain. Her symptoms got progressively worse so she came in for evaluation. She wears prior history of degenerative disc and had a procedure done in her back. She denies any focal numbness or weakness she denies any difficulty with bowel or bladder control. She had similar low back pain radiating down her leg before thought to be sciatica but has been doing well since. She reports a history of malignancy denies any IV drug use, fevers Related Data Home Medications Medication Instructions Recorded Confirmed alprazolam 0.5 mg PO QAM 10/13/19 05/18/20 cyclobenzaprine 10 mg PO TID PRN 10/13/19 05/18/20 ergocalciferol (vitamin D2) 50,000 unit PO WEEKLY 10/13/19 05/18/20 hydrocodone-acetaminophen 1 tablet PO TID PRN 10/13/19 05/18/20 hydroxychloroquine 200 mg PO DAILY 10/13/19 05/18/20 levothyroxine 50 mcg PO QAM 10/13/19 05/18/20 lisinopril 40 mg PO QAM 10/13/19 05/18/20 metoprolol succinate 200 mg PO HS 10/13/19 05/18/20 quetiapine 300 mg PO HS 10/13/19 05/18/20 trazodone 150 mg PO HS 10/13/19 05/18/20 venlafaxine 225 mg PO QAM 10/13/19 05/18/20 ferrous sulfate 325 mg PO DAILY 05/18/20 05/18/20 pregabalin [Lyrica] 300 mg PO BID 05/18/20 05/18/20 Allergies Allergy/AdvReac Type Severity Reaction Status Date / Time adhesive tape Allergy Unknown Rash Verified 04/21/21 21:24 Review of Systems Review of Systems: CONSTITUTIONAL: Denies fever, chills, or sweats. EYES: Denies visual changes, redness, or discharge. ENT: Denies rhinorrhea, congestion, sore throat, or otalgia. CARDIOVASCULAR: Denies chest pain, palpitations, or edema. RESPIRATORY: Denies cough or dyspnea. GASTROINTESTINAL: Denies abdominal pain, nausea, vomiting, or diarrhea. GENITOURINARY: Denies dysuria or hematuria. SKIN: Denies rash or itching. MUSCULOSKELETAL: Denies joint pain, or myalgia. NEUROLOGIC: Denies headache, numbness, dizziness, or weakness. PSYCHIATRIC: Denies anxiety or depression. All systems reviewed & are unremarkable except as noted in HPI and below PMFSH Past Medical History Medical History Breast cancer HTN (hypertension) Lupus (systemic lupus erythematosus) Sepsis Surgical History Surgical History H/O mastectomy H/O: hysterectomy Family History Family History Other Family history of malignant neoplasm Hypertension Social History Social History Smoking status: Never smoker Smokeless tobacco user: chewing tobacco Second hand tobacco smoke exposure: No Additional smoking assessment comments: chewed tobacco occassionally as a teen Alcohol intake: unknown Substance use: never Gender identity (if verbalized by the patient): Female Spiritual care concerns: No Exam Narrative: GENERAL: Well-appearing, well-nourished, and in no acute distress. HEAD: Normocephalic, atraumatic. EYES: PERRLA and EOMI. ENT: Nares clear, no rhinorrhea or epistaxis. Mucous membranes moist. NECK: Supple. No masses. No JVD EXTREMITIES: 5 out of 5 strength in bilateral lower extremities sensation intact to light touch. SKIN: Warm, dry, no rash. NEURO: No focal deficits. Alert and oriented x3. PSYCH: Normal mood and affect. Course Reevaluation(s) Reevaluation #1: Resutls reviewed with patient pain is better conctrolled pt comfortable with the outpatient plan. Date: 04/22/21 Time: 00:09 Vital Signs Vital signs: Vital Signs Temperature 37.2 C
[2021-04-21] MEDS: KETOROLAC 15 MG/ML VIAL (*BKC) IV PUSH (22:15)
[2021-04-21 22:17] LABS: Basophils Percent Auto 0.5 % (0.2-1.2); Eosinophils Absolute Auto 0.1 K/mm3 (0-0.3); Hematocrit 33.9 % (37.0-47.0); Hemoglobin 10.6 g/dL (12.0-15.0); Immature Granulocyte Absolute 0.01 K/mm3 (0.00-0.031); Immature Granulocyte Percent A 0.2 % (0-0.5); Lymphocytes Absolute Auto 2.42 K/mm3 (0.9-3.2); Lymphocytes Percent Auto 43.8 % (18.3-44.2); Mean Corpuscular HGB Conc 31.3 g/dl (32-36); Mean Corpuscular Hemoglobin 27.1 pg (26-34); Mean Corpuscular Volume 86.7 fl (80-100); Mean Platelet Volume 8.7 fl (7.4-10.4); Monocytes Absolute Auto 0.6 K/mm3 (0.1-0.6); Neutrophils Absolute Auto 2.4 K/mm3 (1.3-6.7); Neutrophils Percent Auto 42.5 % (45.5-73.1); Platelet Count Result 261 k/mm3 (150-375); Red Blood Count 3.91 M/mm3 (4.2-5.4); White Blood Count 5.5 K/mm3 (4.5-10.0)
[2021-04-21 22:26] LABS: Alanine Aminotransferase 22 U/L (4-35); Alkaline Phosphatase 70 U/L (38-126); Anion Gap 4 mmol/L (8-16); Aspartate Amino Transferase 32 U/L (14-36); Bilirubin,Total 0.2 mg/dL (0.2-1.3); Blood Urea Nitrogen 14 mg/dL (7-17); Calcium 9.2 mg/dL (8.4-10.2); Carbon Dioxide 29 mmol/L (22-30); Chloride 102 mmol/L (98-107); Estimated CRCL calculation 79 ml/min; Estimated Glomerular Filt Rate > 60; Glucose 88 mg/dL (65-110); Potassium 3.6 mmol/L (3.4-5.0); Sodium 135 mmol/L (137-145)
[2021-04-21 22:45] VITALS: TEMP 36.7
[2021-04-21] MEDS: MORPHINE SULFATE (*CRX) 4 MG/ML INJ IV PUSH (22:53)
[2021-04-21 22:54] VITALS: BP 143/91; PULSE 78; RESP 20; O2SAT 99
[2021-04-22 00:15] VITALS: BP 166/81; PULSE 54; RESP 18; O2SAT 100
[2021-04-22] MEDS: HEPARIN SODIUM LOCK FLUSH 500 UNITS/5 ML VIAL (00:20)
== END 2021-04-22 00:40 | disposition home or self-care (01) ==
PROVIDERS: Emergency Medicine; Emergency Provider Emergency Medicine; PCP Internal Medicine Infectious Disease
DX: M54.41 Lumbago with sciatica, right side (principal); Z85.3 Personal history of malignant neoplasm of breast; I10 Essential (primary) hypertension; M32.9 Systemic lupus erythematosus, unspecified; Z90.10 Acquired absence of unspecified breast and nipple; Z87.891 Personal history of nicotine dependence
CPT/HCPCS: 36415; 71046; 72100; 80053; 81001; 85025; 96374; 96375; 99284; J1642; J1885; J2270

== ENCOUNTER 2021-05-14 19:42 | Emergency (ER) | payer OTHER, SELFPAY ==
[2021-05-14 19:45] VITALS: BP 159/102; PULSE 63; RESP 18; TEMP 36.6; O2SAT 100
--- NOTE | 2021-05-14 22:00 | ED.GENADULT ---
HPI - General Adult General Chief complaint: Neck Pain/Injury Stated complaint: Neck,back,leg pain with headache Time Seen by Provider: 05/14/21 20:23 Source: patient Mode of arrival: ambulatory Limitations: no limitations History of Present Illness HPI narrative: Patient with history of cervical disc injury and surgery 4 years ago presented with increase in pain with radiation down her arm that has worsened today. Patient denies recent trauma or injury to her neck. Patient states that she took Tylenol ibuprofen and hydrocodone prior to arrival but her symptoms did not remit. Patient denies trouble with swallowing or loss of range of motion. Related Data Home Medications Medication Instructions Recorded Confirmed alprazolam 0.5 mg PO QAM 10/13/19 05/18/20 cyclobenzaprine 10 mg PO TID PRN 10/13/19 05/18/20 ergocalciferol (vitamin D2) 50,000 unit PO WEEKLY 10/13/19 05/18/20 hydrocodone-acetaminophen 1 tablet PO TID PRN 10/13/19 05/18/20 hydroxychloroquine 200 mg PO DAILY 10/13/19 05/18/20 levothyroxine 50 mcg PO QAM 10/13/19 05/18/20 lisinopril 40 mg PO QAM 10/13/19 05/18/20 metoprolol succinate 200 mg PO HS 10/13/19 05/18/20 quetiapine 300 mg PO HS 10/13/19 05/18/20 trazodone 150 mg PO HS 10/13/19 05/18/20 venlafaxine 225 mg PO QAM 10/13/19 05/18/20 ferrous sulfate 325 mg PO DAILY 05/18/20 05/18/20 pregabalin [Lyrica] 300 mg PO BID 05/18/20 05/18/20 buspirone mg 05/14/21 omeprazole 05/14/21 Allergies Allergy/AdvReac Type Severity Reaction Status Date / Time adhesive tape Allergy Unknown Rash Verified 05/14/21 19:56 Review of Systems Review of Systems: CONSTITUTIONAL: Denies fever, chills, or sweats. EYES: Denies visual changes, redness, or discharge. ENT: Denies rhinorrhea, congestion, sore throat, or otalgia. CARDIOVASCULAR: Denies chest pain, palpitations, or edema. RESPIRATORY: Denies cough or dyspnea. GASTROINTESTINAL: Denies abdominal pain, nausea, vomiting, or diarrhea. GENITOURINARY: Denies dysuria or hematuria. SKIN: Denies rash or itching. MUSCULOSKELETAL: Reports radicular neck pain denies NEUROLOGIC: Denies headache, numbness, dizziness, or weakness. PSYCHIATRIC: Denies anxiety or depression. [facility] Past Medical History Medical History (Updated 05/14/21 @ 22:07 by Val Courtney PA-C) Breast cancer Depression GERD (gastroesophageal reflux disease) History of blood transfusion HTN (hypertension) Lupus (systemic lupus erythematosus) Sepsis Thyroid disease Surgical History Surgical History (Updated 05/05/21 @ 15:59 by Carol Valentin) H/O mastectomy H/O: hysterectomy History of appendectomy History of carpal tunnel release History of cholecystectomy Port-A-Cath in place S/P bilateral breast implants S/P cervical spinal fusion S/P shoulder surgery S/P trigger finger release Family History Family History Other Family history of malignant neoplasm Hypertension Social History Social History Smoking status: Never smoker Smokeless tobacco user: chewing tobacco Second hand tobacco smoke exposure: No Additional smoking assessment comments: chewed tobacco occassionally as a teen Alcohol intake: unknown Substance use: never Gender identity (if verbalized by the patient): Female Spiritual care concerns: No Exam Narrative: GENERAL: Well-appearing, well-nourished, and in no acute distress. HEAD: Normocephalic, atraumatic. EYES: PERRLA and EOMI. ENT: Nares clear, no rhinorrhea or epistaxis. Mucous membranes moist. Oropharynx without tonsillar hypertrophy exudate or other lesions. Bilateral TMs pearly aguilera nonbulging NECK: Supple. No adenopathy or masses. No pain with palpation of cervical spine. CHEST: Clear to auscultation. No respiratory distress. No wheezes rales or rhonchi HEART: Regular rate and rhythm. No murmur heard. Normal peripheral pulses. EXTREM
[2021-05-14] MEDS: KETOROLAC 30 MG/ML VIAL (*BKC) IM (22:11)
[2021-05-14] MEDS: methylPREDNISolone SOD SUCC 125 MG VIAL IM (22:11)
[2021-05-14 22:23] VITALS: BP 146/78; PULSE 77; RESP 18; O2SAT 100
== END 2021-05-14 22:23 | disposition home or self-care (01) ==
PROVIDERS: Emergency Provider Emergency Medicine
DX: M54.12 Radiculopathy, cervical region (principal); I10 Essential (primary) hypertension; M32.9 Systemic lupus erythematosus, unspecified; E07.9 Disorder of thyroid, unspecified; K21.9 Gastro-esophageal reflux disease without esophagitis; F32.9 Major depressive disorder, single episode, unspecified; Z85.3 Personal history of malignant neoplasm of breast; Z90.10 Acquired absence of unspecified breast and nipple; Z98.1 Arthrodesis status; Z87.891 Personal history of nicotine dependence; M25.562 Pain in left knee; M25.561 Pain in right knee; W18.39XA Other fall on same level, initial encounter
CPT/HCPCS: 96372; 99284; J1885; J2930

== ENCOUNTER 2021-06-15 15:17 | Outpatient (CLI) | payer OTHER, SELFPAY ==
[2021-06-15 15:56] LABS: Basophils Percent Auto 0.7 % (0.2-1.2); Eosinophils Absolute Auto 0.1 K/mm3 (0-0.3); Eosinophils Percent Auto 1.3 % (0-4.4); Hematocrit 39.9 % (37.0-47.0); Hemoglobin 12.7 g/dL (12.0-15.0); Immature Granulocyte Absolute 0.01 K/mm3 (0.00-0.031); Immature Granulocyte Percent A 0.2 % (0-0.5); Lymphocytes Absolute Auto 2.45 K/mm3 (0.9-3.2); Lymphocytes Percent Auto 40.5 % (18.3-44.2); Mean Corpuscular HGB Conc 31.8 g/dl (32-36); Mean Corpuscular Hemoglobin 27.3 pg (26-34); Mean Corpuscular Volume 85.8 fl (80-100); Monocytes Absolute Auto 0.5 K/mm3 (0.1-0.6); Monocytes Percent Auto 7.4 % (2.6-8.5); Neutrophils Percent Auto 49.9 % (45.5-73.1); Platelet Count Result 247 k/mm3 (150-375); Red Blood Count 4.65 M/mm3 (4.2-5.4); Red Cell Distribution Width 14.7 % (11.5-14.5); White Blood Count 6.1 K/mm3 (4.5-10.0)
[2021-06-15 16:12] LABS: Partial Thromboplastin Time 23.8 SECONDS (22.3-36.8)
== END 2021-06-15 15:18 | disposition home or self-care (01) ==
PROVIDERS: PCP Internal Medicine Infectious Disease; Visit Provider Surgery
DX: T82.9XXA Unspecified complication of cardiac and vascular prosthetic device, implant and graft, initial encounter (principal); Z01.818 Encounter for other preprocedural examination
CPT/HCPCS: 36415; 85025; 85610; 85730

== ENCOUNTER 2021-06-22 01:07 | Day surgery (SDC) | payer OTHER, SELFPAY ==
[2021-06-15 09:31] VITALS: BMI 32.8
--- NOTE | ~2021-06-22 | XR_ITS ---
XR chest port-a-cath/central 06/22/2021 12:36 Indication: Adjusted catheter site. Dyspnea. Procedure: AP portable chest Comparison: Comparison to multiple prior studies sequentially, with oldest reviewed study dated 06/01. Findings: Bibasilar airspace disease, compatible with pneumonia. No pleural effusion or pneumothorax. Portacatheter tip in the SVC. There is a left shoulder arthroplasty. Impression: 1: Bibasilar airspace disease, compatible with pneumonia. Reviewed, dictated and finalized at location B. Impression: 1: Bibasilar airspace disease, compatible with pneumonia.
[2021-06-22 09:20] VITALS: BP 133/73; PULSE 61; RESP 18; TEMP 36.6; O2SAT 99
[2021-06-22] MEDS: LACTATED RINGERS 1,000 ML 30 ML IV CONT (09:50)
[2021-06-22] MEDS: KETOROLAC 15 MG/ML VIAL (*BKC) IV PUSH (10:00)
--- NOTE | 2021-06-22 10:02 | WPDANESEPPF ---
Anes - Initial Pre Proc Eval Procedure: Operation Date: 06/22/21 11:00 Proposed Procedures p Repair Central Venous Access Device with Port - Jonn Huerta DO Date/Time: 06/22/21 10:02 Surgeon: Jonn Huerta DO Pre Op Diagnosis: port malfunction Patient Data Age: 51 Gender: F Height: 1.65 m Weight: 89.7 kg Last Vital Signs Temp 36.6 C 06/22/21 09:20 Pulse 61 06/22/21 09:20 Resp 18 06/22/21 09:20 BP 133/73 06/22/21 09:20 Pulse Ox 99 06/22/21 09:20 Allergies Allergy/AdvReac Type Severity Reaction Status Date / Time adhesive tape Allergy Unknown Rash Verified 06/22/21 09:32 Home Medications Medication Instructions Recorded Confirmed Type cyclobenzaprine 10 mg PO TID PRN 10/13/19 06/22/21 History ergocalciferol (vitamin D2) 50,000 unit PO WEEKLY 10/13/19 06/22/21 History hydrocodone-acetaminophen 1 tablet PO TID PRN 10/13/19 06/22/21 History hydroxychloroquine 200 mg PO DAILY 10/13/19 06/22/21 History levothyroxine 50 mcg PO QAM 10/13/19 06/22/21 History lisinopril 40 mg PO QAM 10/13/19 06/22/21 History metoprolol succinate 200 mg PO HS 10/13/19 06/22/21 History trazodone 150 mg PO HS 10/13/19 06/22/21 History venlafaxine 225 mg PO QAM 10/13/19 06/22/21 History pregabalin [Lyrica] 300 mg PO BID 05/18/20 06/22/21 History polyethylene glycol 3350 [Miralax] 17 g PO BID PRN #119 g 07/16/20 06/22/21 Rx omeprazole 40 mg PO DAILY 05/14/21 06/22/21 History Patient hx anesthesia problems: none Family hx anesthesia problems: none Results Review: All pre-operative results and documents have been reviewed as part of the pre-operative evaluation. [facility] Past Medical History Medical History Breast cancer Depression GERD (gastroesophageal reflux disease) History of blood transfusion HTN (hypertension) Lupus (systemic lupus erythematosus) Sepsis Thyroid disease Surgical History Surgical History H/O mastectomy H/O: hysterectomy History of appendectomy History of carpal tunnel release History of cholecystectomy Port-A-Cath in place S/P bilateral breast implants S/P cervical spinal fusion S/P shoulder surgery S/P trigger finger release Family History Family History Other Family history of malignant neoplasm Hypertension Social History Social History Smoking status: Never smoker Smokeless tobacco user: chewing tobacco Second hand tobacco smoke exposure: No Additional smoking assessment comments: chewed tobacco occassionally as a teen Alcohol intake: never Substance use: never Substance use type: does not use Living arrangements: with family Gender identity (if verbalized by the patient): Female Spiritual care concerns: No Anes - Eval Final PreProcedure Day of Procedure 06/22/21 10:02 Patient weight: obese Heart: regular rate and rhythm Lungs: clear to auscultation Airway: Mallampati scale class II Neurological: alert and oriented Last oral intake: >/= 8 hours ASA classification: III Emergent: no Anesthetic plan: proceed Anesthesia type and monitoring: general GIVS and standard monitoring Results Review: All pre-operative results and documents have been reviewed as part of the pre-operative evaluation. Informed Consent: The patient's anesthetic plan and its attendant risks and benefits were discussed with the patient/family/POA. Questions were solicited and answers provided to the satisfaction of the patient/family/POA.
--- NOTE | 2021-06-22 11:26 | WPDHPUPDATE1 ---
History and Physical Update Update Date/Time: 06/22/21 11:26 History and Physical has been reviewed, including an updated exam of the patient. There are NO changes in the patient's condition. Risks, benefits, and alternatives have been discussed and questions answered. Patient agrees to proceed with procedure.
[2021-06-22] MEDS: ceFAZolin 2 GM/D5W 50 ML 2 GM/50 ML BAG IVPB (11:35)
[2021-06-22] MEDS: LIDO 1%/EPINEPHRINE 1:100,000 50 ML VIAL 10 ML INFILTRATE (11:55)
[2021-06-22] MEDS: HEPARIN SODIUM 5,000 UNITS/ML VIAL 5000 UNITS IRRIGATION (11:55)
[2021-06-22] MEDS: HEPARIN SODIUM, PORCINE 10,000 UNITS/10 ML VIAL 3000 UNITS IV PUSH (12:02)
--- NOTE | 2021-06-22 12:16 | W.PM.PROC2 ---
Procedure Note - Detailed Date of Procedure 06/22/21 Pre-op Diagnosis port malfunction Post-op Diagnosis same Procedure Performed Repair of central venous access device with port Surgeon Jonn Huerta, DO Anesthesia MAC and local (1% lidocaine with epinephrine) Indications This is a 51-year-old woman who presented with frequent problems accessing her right internal jugular Port-A-Cath. The port has been in place for several years, and she is still occasionally needs to have the port accessed because she has poor peripheral venous access for blood draws. The previous x-ray showed that the port tubing appeared in proper position, but the port itself appeared slightly flipped. Discussions were made with the patient about treatment options and decision was made to proceed with repair of central venous access device with port. Findings The right IJ port was identified on the right chest. The port itself appeared to be being pushed slightly cephalad by her breast implants. It was also causing the port to be slightly flipped. The port was removed from its capsule and the capsule was excised and discarded. The port was then repositioned slightly more superior and lateral to where it was sitting just below the inferior margin of the clavicle. This appeared to be proper position without any kinks and the port was aspirated and flushed and appeared to be functioning without difficulty. The port was then secured in place using 3-0 Prolene sutures. An x-ray will be obtained in recovery to ensure that it appears in proper position. Description of Procedure Procedure as well as risks, benefits, and alternatives were discussed with the patient. Written consent was obtained and placed in chart prior to procedure. Patient was brought back to surgical suite. She was placed supine on operating table. Time-out was done to confirm patient and procedure. IV sedation was then administered by the anesthesia department. Her right chest and neck area was prepped and draped in sterile fashion using chlorhexidine prep. 1% lidocaine with epinephrine was infiltrated directly over the port. A 3 cm incision was then made over the port using a 15 blade scalpel. Electrocautery was used for hemostasis and for dissection down through the subcutaneous tissue. The port was encountered and this was carefully freed from the surrounding adhesive capsule. The sutures holding the port place were cut away using suture scissors. This freed up the port completely from within the subcutaneous pocket. The adhesive capsule was then carefully excised using electrocautery. It was noted that the breast implant was just inferior and deep to the port. Care was taken to avoid any injury to the breast implant during the procedure. I then created a pocket just superior and lateral to the breast implant where the port could be placed directly on the pectoral fascia. Once this pocket was created, I placed the port where it was going to be secured and ensured that there were no kinks along the path of the catheter tubing. The port was then secured in place using 3-0 Prolene simple interrupted sutures. The port was then accessed with a Carballo needle. It was aspirated and flushed with heparinized saline. The port functioned with ease. It was then hep-locked with Hep-Lock solution. Alejo's fascia was then reapproximated using 3-0 Vicryl simple interrupted sutures. The skin was then reapproximated using 4-0 Monocryl running subcuticular suture. Exofin glue was then applied on top. The patient was then awakened from anesthesia and transferred to recovery. Chest x-ray was ordered to confirm adequate positioning of the port. Estimated Blood Loss 5 Complications No immediate complications Condition stable Disposition same day
[2021-06-22 12:17] VITALS: BP 127/55; PULSE 68; RESP 12; O2SAT 93
--- NOTE | 2021-06-22 12:28 | SUR.PHASEII ---
Patient getting portable x-ray now.
[2021-06-22 12:35] VITALS: O2SAT 95
[2021-06-22 12:45] VITALS: BP 111/62; PULSE 66
[2021-06-22] MEDS: oxyCODONE HCL (*CRX) 5 MG TAB IR PO (12:50)
[2021-06-22] MEDS: fentaNYL CITRATE INJ (*CRX) 100 MCG/2 ML VIAL 25 MCG IV PUSH (13:07)
--- NOTE | 2021-06-22 13:40 | SUR.PHASEII ---
Patient noncompliant. She tore off her hospital band, got dressed when RN told her not to yet, took off the monitors, and didn't want her discharge paperwork. Patient requested IV pain medicine after RN gave a pain pill in outpatient as well.
== END 2021-06-22 13:21 | disposition home or self-care (01) ==
PROVIDERS: PCP Internal Medicine Infectious Disease; Visit Provider Surgery
PROC: (CPT 36576; principal; 2021-06-22 11:00)
DX: T82.898A Other specified complication of vascular prosthetic devices, implants and grafts, initial encounter (principal); Y83.8 Other surgical procedures as the cause of abnormal reaction of the patient, or of later complication, without mention of misadventure at the time of the procedure; I10 Essential (primary) hypertension; M32.9 Systemic lupus erythematosus, unspecified; K21.9 Gastro-esophageal reflux disease without esophagitis; E07.9 Disorder of thyroid, unspecified; F32.9 Major depressive disorder, single episode, unspecified; Z85.3 Personal history of malignant neoplasm of breast; Z98.82 Breast implant status; Z90.13 Acquired absence of bilateral breasts and nipples; Z98.1 Arthrodesis status; E66.9 Obesity, unspecified; Z68.32 Body mass index [BMI] 32.0-32.9, adult
CPT/HCPCS: 36576; A9270; J0690; J1644; J1885; J2250; J2370; J2405; J2704; J3010; J7030; J7120

== ENCOUNTER 2021-08-05 16:07 | Outpatient (CLI) | payer OTHER, SELFPAY ==
[2021-08-05 17:06] LABS: Alanine Aminotransferase 26 U/L (4-35); Albumin Level 4.1 g/dL (3.5-5.1); Alkaline Phosphatase 64 U/L (38-126); Anion Gap 9 mmol/L (8-16); Aspartate Amino Transferase 32 U/L (14-36); Bilirubin,Total 0.4 mg/dL (0.2-1.3); Blood Urea Nitrogen 19 mg/dL (7-17); Calcium 9.2 mg/dL (8.4-10.2); Carbon Dioxide 25 mmol/L (22-30); Chloride 105 mmol/L (98-107); Estimated Glomerular Filt Rate > 60; Glucose 93 mg/dL (65-110); Sodium 139 mmol/L (137-145)
[2021-08-05 17:07] LABS: Basophils Percent Auto 0.5 % (0.2-1.2); Eosinophils Absolute Auto 0.1 K/mm3 (0-0.3); Eosinophils Percent Auto 1.5 % (0-4.4); Hematocrit 38.3 % (37.0-47.0); Hemoglobin 12.2 g/dL (12.0-15.0); Immature Granulocyte Absolute 0.01 K/mm3 (0.00-0.031); Immature Granulocyte Percent A 0.2 % (0-0.5); Lymphocytes Absolute Auto 2.53 K/mm3 (0.9-3.2); Lymphocytes Percent Auto 42.5 % (18.3-44.2); Mean Corpuscular HGB Conc 31.9 g/dl (32-36); Mean Corpuscular Hemoglobin 27.4 pg (26-34); Mean Corpuscular Volume 86.1 fl (80-100); Mean Platelet Volume 9.1 fl (7.4-10.4); Monocytes Absolute Auto 0.5 K/mm3 (0.1-0.6); Monocytes Percent Auto 8.2 % (2.6-8.5); Neutrophils Absolute Auto 2.8 K/mm3 (1.3-6.7); Neutrophils Percent Auto 47.1 % (45.5-73.1); Platelet Count Result 235 k/mm3 (150-375); Red Blood Count 4.45 M/mm3 (4.2-5.4); Red Cell Distribution Width 14.9 % (11.5-14.5)
[2021-08-10 06:30] LABS: CA 15-3 11 U/mL (<32)
== END 2021-08-05 16:08 | disposition home or self-care (01) ==
LOC: ANHLAB 16:10
PROVIDERS: PCP Internal Medicine Infectious Disease; Visit Provider Internal Medicine Hematology & Oncology
DX: C50.412 Malignant neoplasm of upper-outer quadrant of left female breast (principal); Z17.0 Estrogen receptor positive status [ER+]
CPT/HCPCS: 36415; 80053; 85025; 86300

== ENCOUNTER 2021-08-19 10:48 | Outpatient (CLI) | payer OTHER, SELFPAY ==
--- NOTE | ~2021-08-19 | XR_ITS ---
EXAMINATION: XR hand BI arthritis min 3V, XR wrist RT min 3V, XR wrist LT min 3V EXAM DATE: 08/19/2021 11:09 INDICATION: Bilateral hand, wrist pain. Osteoarthritis. TECHNIQUE: Right hand frontal, lateral and oblique projections obtained and reviewed. Left hand fron candy, lateral and oblique projections obtained and reviewed. Right wrist frontal, frontal with ulnar d eviation, oblique and lateral projections obtained and reviewed. Left wrist frontal, frontal with uln ar deviation, oblique and lateral projections obtained and reviewed. Catchers projection of both hand s. Compared to prior right hand x-ray 02/16/2021. FINDINGS: Right hand and wrist: There is mild to moderate right 3rd distal interphalangeal joint primary osteoa rthritis. There are no bony erosions identified. Scapholunate joint space is maintained. Left hand and wrist: There is mild to moderate left 4th distal interphalangeal primary osteoarthritis . Minimal osteoarthritis at the other distal interphalangeal joints. Scapholunate joint space is ashia ntained. There are no bony erosions identified. IMPRESSION: 1. Mild to moderate right 3rd and left 4th DIP osteoarthritis. 2. Unremarkable wrists. Reviewed, dictated and finalized at location B. MAN IMPRESSION: 1. Mild to moderate right 3rd and left 4th DIP osteoarthritis. 2. Unremarkable wrists. IMPRESSION: 1. Mild to moderate right 3rd and left 4th DIP osteoarthritis. 2. Unremarkable wrists.
== END 2021-08-19 10:49 | disposition home or self-care (01) ==
LOC: ANHIMG 10:52
PROVIDERS: PCP Internal Medicine Infectious Disease; Visit Provider Plastic Surgery
DX: M19.041 Primary osteoarthritis, right hand (principal); M19.031 Primary osteoarthritis, right wrist; M19.042 Primary osteoarthritis, left hand
CPT/HCPCS: 73110; 73130

== ENCOUNTER 2021-09-25 16:11 | Emergency (ER) | payer OTHER, SELFPAY ==
--- NOTE | ~2021-09-25 | XR_ITS ---
EXAMINATION: XR hip RT 2V w AP pelvis INDICATION: Right hip pain TECHNIQUE: AP view the pelvis and two views of the right hip are obtained. COMPARISON: None available FINDINGS: Bone alignment is normal. There is no fracture. Mild lower lumbar spondylosis is noted. The re are surgical clips in the pelvis. IMPRESSION: 1. No acute osseous abnormality. Reviewed, dictated and finalized at location F. ISSION ASSOCIATE
--- NOTE | ~2021-09-25 | XR_ITS ---
EXAMINATION: XR lumbar spine 2-3V DATE: 09/25/2021 17:39 INDICATION: Low back pain TECHNIQUE: Anteroposterior and lateral views of the lumbar spine, and cone-down lateral view of the l umbosacral junction were obtained. COMPARISON: 04/21/2021 FINDINGS: There is no fracture, dislocation, or subluxation. There is unchanged moderate loss of inte rvertebral disc space height at L2-3 and L3-4 and mild loss of disc space height at L1-2 and L4-5. Th e vertebral body heights are maintained. Small degenerative osteophytes project from the anterior end plates of multiple vertebral bodies. There is moderate facet osteoarthritis of the lower lumbar spine . IMPRESSION: 1. Mild lumbar spondylosis without acute findings or significant interval change. Reviewed, dictated and finalized at location F. ECTION TELLER IMPRESSION: 1. Mild lumbar spondylosis without acute findings or significant interval villela mariusz
[2021-09-25 16:16] VITALS: BP 154/90; PULSE 71; RESP 16; TEMP 36.8; O2SAT 99
--- NOTE | 2021-09-25 17:28 | ED.GENADULT ---
HPI - General Adult General Chief complaint: Back Pain/Injury Stated complaint: R leg pain Time Seen by Provider: 09/25/21 16:23 Source: patient Mode of arrival: ambulatory Limitations: no limitations History of Present Illness HPI narrative: Patient presents for evaluation of low back pain with radiation into the right lower extremity. Symptom onset approximately 2 weeks ago, without identified precipitating cause or injury. Pain did worsen in the last 6 days, although there was not any event which seemed to cause worsening pain. Pain is constant, rated 10 out of 10 in severity, with radiation through posterior lateral aspect of right lower extremity which seems to stop at the knee. Specific movements make the symptoms worse. No paresthesias. No bowel incontinence. No saddle anesthesia. She did have an episode of urinary incontinence last night and the night before but also experienced dysuria. She is taking hydrocodone, which she takes for chronic left shoulder and bilateral knee pain. She is also taking Lyrica. These medications do not seem to alleviate her symptoms. She has a sensation that the pain seems to catch . No additional complaints or concerns. Related Data Home Medications Medication Instructions Recorded Confirmed cyclobenzaprine 10 mg PO TID PRN 10/13/19 08/16/21 ergocalciferol (vitamin D2) 50,000 unit PO WEEKLY 10/13/19 08/16/21 hydrocodone-acetaminophen 1 tablet PO TID PRN 10/13/19 08/16/21 hydroxychloroquine 200 mg PO DAILY 10/13/19 08/16/21 levothyroxine 50 mcg PO QAM 10/13/19 08/16/21 lisinopril 40 mg PO QAM 10/13/19 08/16/21 metoprolol succinate 200 mg PO HS 10/13/19 08/16/21 trazodone 150 mg PO HS 10/13/19 08/16/21 venlafaxine 225 mg PO QAM 10/13/19 08/16/21 pregabalin [Lyrica] 300 mg PO BID 05/18/20 08/16/21 omeprazole 40 mg PO DAILY 05/14/21 08/16/21 Allergies Allergy/AdvReac Type Severity Reaction Status Date / Time adhesive tape Allergy Unknown Rash Verified 08/16/21 11:15 Review of Systems Review of Systems: CONSTITUTIONAL: Denies fever, chills, or sweats. EYES: Denies visual changes, redness, or discharge. ENT: Denies rhinorrhea, congestion, sore throat, or otalgia. CARDIOVASCULAR: Denies chest pain, palpitations, or edema. RESPIRATORY: Denies cough or dyspnea. GASTROINTESTINAL: Denies abdominal pain, nausea, vomiting, or diarrhea. GENITOURINARY: Reports dysuria and two episodes of urinary incontinence. Denies hematuria, frequency or hesitancy. SKIN: Denies rash or itching. MUSCULOSKELETAL: Reports low back pain with radiation into right lower extremity. Reports chronic left shoulder and bilateral knee pain NEUROLOGIC: Denies headache, numbness, dizziness, or weakness. PSYCHIATRIC: Denies anxiety or depression. [facility] Past Medical History Medical History Breast cancer Depression GERD (gastroesophageal reflux disease) History of blood transfusion HTN (hypertension) Lupus (systemic lupus erythematosus) Sepsis Thyroid disease Surgical History Surgical History (Updated 09/25/21 @ 17:29 by MICHEL Landaverde, BC) H/O mastectomy H/O: hysterectomy History of appendectomy History of carpal tunnel release History of cholecystectomy History of knee replacement Port-A-Cath in place S/P bilateral breast implants S/P cervical spinal fusion S/P shoulder surgery S/P trigger finger release Family History Family History Other Family history of malignant neoplasm Hypertension Social History Social History Smoking status: Never smoker Smokeless tobacco user: chewing tobacco Second hand tobacco smoke exposure: No Additional smoking assessment comments: chewed tobacco occassionally as a teen Alcohol intake: never Substance use: never Substance use type: does not use Gender identity (if verbal
[2021-09-25] MEDS: methylPREDNISolone SOD SUCC 125 MG VIAL IM (17:59)
[2021-09-25] MEDS: HYDROcodone/acetaminophen (*CRX) 10-325 MG TABLET 1 TAB PO (17:59)
[2021-09-25] MEDS: diazePAM (*CRX) 5 MG TABLET PO (18:10)
[2021-09-25 18:22] LABS: Add Urine Microscopic? YES; Appearance Urine Clear (Clear); Bilirubin Urine Negative (Negative); Blood Urine Negative (Negative); Color Urine Yellow (Yellow); Glucose Urine UA Negative (Negative); Ketones Urine Negative (Negative); Leukocyte Esterase Ur Negative LEU/UL (Negative); Mucus Urine Rare /lpf; Nitrate Urine Negative (Negative); Protein Urine Negative (Negative); Specific Grav Ur 1.018 (1.001-1.035); Squamous Epithelial Cell Urine Few /hpf (Few); Urobilinogen Urine Negative mg/dL (<2.0); WBC Urine 0-3 /hpf
--- NOTE | 2021-09-25 21:09 | PC.NURSE ---
1999- bladder scan post void <60mls unon multiple attempts
== END 2021-09-25 21:05 | disposition home or self-care (01) ==
PROVIDERS: Emergency Provider Nurse Practitioner; PCP Internal Medicine Infectious Disease
DX: M47.26 Other spondylosis with radiculopathy, lumbar region (principal); I10 Essential (primary) hypertension; M32.9 Systemic lupus erythematosus, unspecified; E07.9 Disorder of thyroid, unspecified; K21.9 Gastro-esophageal reflux disease without esophagitis; Z85.3 Personal history of malignant neoplasm of breast; Z90.13 Acquired absence of bilateral breasts and nipples; Z96.659 Presence of unspecified artificial knee joint; Z98.1 Arthrodesis status; Z87.891 Personal history of nicotine dependence
CPT/HCPCS: 72100; 73502; 81001; 96372; 99284; A9270; J2930

== ENCOUNTER 2021-10-24 12:22 | Emergency (ER) | payer OTHER, SELFPAY ==
--- NOTE | ~2021-10-24 | CT_ITS ---
EXAMINATION: CT cervical spine wo con DATE: 10/24/2021 15:23 INDICATION: Neck pain TECHNIQUE: Computed tomography (CT) of the cervical spine was performed without intravenous contrast. The dose-length product (DLP) was 518.36 mGy-cm. Automated exposure control and iterative reconstruc tion technique were employed. COMPARISON: 04/14/2010 FINDINGS: There are changes of anterior fusion at C5-6. The vertebral body heights and alignment are normal. The odontoid is intact. There is no fracture. The prevertebral soft tissues are normal. Small degenerative osteophytes project from the anterior endplates of multiple vertebral bodies. A right i nternal jugular dialysis catheter is noted. There is fibrous stranding of the posterior C1 ring. IMPRESSION: 1. Mild cervical spondylosis without acute findings or significant interval change. Reviewed, dictated and finalized at location F. R SERVICES COORDINATOR IMPRESSION: 1. Mild cervical spondylosis without acute findings or significant interval mel nge.
--- NOTE | ~2021-10-24 | XR_ITS ---
EXAMINATION: XR wrist LT min 3V DATE: 10/24/2021 15:34 INDICATION: Left wrist pain and swelling TECHNIQUE: Posteroanterior, ulnar deviation, oblique, and lateral views of the left wrist were obtain ed. COMPARISON: none FINDINGS: 2 mm ulnar positive variance. Alignment is otherwise normal. There is subtle lucency and sclerosis at the ulnar side of the proximal lunate suggesting cystic change related to ulnocarpal impaction. No f racture. Joint spaces are normal. Mild soft tissue swelling about the ulnar side of the wrist along t he region of the extensor carpi ulnaris tendon. IMPRESSION: 1. 2 mm ulnar positive variance with suggestion of cystic change related to ulnocarpal impaction at t he ulnar side of the proximal lunate. 2. Mild soft tissue swelling at the ulnar side of the wrist region of the extensor carpi ulnaris tend on. Reviewed, dictated and finalized at location A. EGE SPECIALIST IMPRESSION: 1. 2 mm ulnar positive variance with suggestion of cystic change related to uln ocarpal impaction at the ulnar side of the proximal lunate. 2. Mild soft tissue swelling at the ulnar side of the wrist region of the exten sor carpi ulnaris tendon.
[2021-10-24 12:47] VITALS: BP 116/74; PULSE 78; RESP 16; TEMP 37.3; O2SAT 98
[2021-10-24 14:54] VITALS: BP 108/72; PULSE 77; TEMP 36.7; O2SAT 96
[2021-10-24] MEDS: KETOROLAC (*BKC) 60 MG/2 ML VIAL IM (15:36)
[2021-10-24] MEDS: diazePAM (*CRX) 5 MG TABLET PO (15:36)
--- NOTE | 2021-10-24 15:57 | ED.NECK ---
HPI - Neck Pain/Injury General Chief Complaint: Neck Pain/Injury Stated Complaint: L hand pain, neck pain Time Seen by Provider: 10/24/21 14:59 Source: patient and RN notes reviewed Mode of arrival: ambulatory Limitations: no limitations History of Present Illness HPI Narrative: This is a 51 year old female with history of breast cancer in past and chronic pain syndrome who presents for evaluation of neck pain and left wrist pain. Patient reports she has been evaluated by pain management for neck pain. She just finished physical therapy due to her neck pain. She states her pain was resolving but this morning she woke up with neck pain. Her pain is located along posterior muscles . She is having difficulty turning her neck due to pain. She denies focal weakness, numbness or tingling. She denies any trauma. She denies headache, cough , fever. She does wrist left wrist pain that start today as well. She denies arm swelling or weakness Related Data Home Medications Medication Instructions Recorded Confirmed cyclobenzaprine 10 mg PO TID PRN 10/13/19 10/11/21 ergocalciferol (vitamin D2) 50,000 unit PO WEEKLY 10/13/19 10/11/21 hydrocodone-acetaminophen 1 tablet PO TID PRN 10/13/19 10/11/21 hydroxychloroquine 200 mg PO DAILY 10/13/19 10/11/21 levothyroxine 50 mcg PO QAM 10/13/19 10/11/21 lisinopril 40 mg PO QAM 10/13/19 10/11/21 venlafaxine 225 mg PO QAM 10/13/19 10/11/21 pregabalin [Lyrica] 300 mg PO BID 05/18/20 10/11/21 Allergies Allergy/AdvReac Type Severity Reaction Status Date / Time adhesive tape Allergy Unknown Rash Verified 10/11/21 15:11 Review of Systems Review of Systems: All systems reviewed & are unremarkable except as noted in HPI and below PMFSH Past Medical History Medical History Breast cancer Depression GERD (gastroesophageal reflux disease) History of blood transfusion HTN (hypertension) Lupus (systemic lupus erythematosus) Sepsis Thyroid disease Surgical History Surgical History H/O mastectomy H/O: hysterectomy History of appendectomy History of carpal tunnel release History of cholecystectomy History of knee replacement Port-A-Cath in place S/P bilateral breast implants S/P cervical spinal fusion S/P shoulder surgery S/P trigger finger release Family History Family History Other Family history of malignant neoplasm Hypertension Social History Social History Smoking status: Never smoker Smokeless tobacco user: chewing tobacco Second hand tobacco smoke exposure: No Additional smoking assessment comments: chewed tobacco occassionally as a teen Alcohol intake: never Substance use: never Substance use type: does not use Gender identity (if verbalized by the patient): Female Spiritual care concerns: No Exam Const: General: no acute distress and alert Orientation/consciousness: patient oriented x3 Eyes: Pupils: Equal, round and reactive pupils present EOM: EOMs intact bilaterally Neck: Neck: no lymphadenopathy and no meningeal signs Thyroid: thyroid normal Chest: Chest palpation & inspection: normal inspection of the chest Resp: Effort & Inspection: normal respiratory effort and no retractions Auscultation: clear to auscultation bilaterally Cardio: Rate: regular rate Rhythm: regular rhythm Heart sounds: no murmurs GI: GI Palp: Yes Soft to palpation, No Tenderness to palpation present (GI) and No Guarding due to palpation present (GI) Auscultation: normal bowel sounds Back/Spine/Pelvis: Cervical Spine: cervical muscular tenderness and pain with cervical ROM Skin: General skin exam: normal color Rashes: no rashes Neuro: General: patient oriented x3 and moves all extremities Extrem: Other: left wrist with TTP dorsally ulnar
[2021-10-24 17:14] VITALS: BP 107/68; PULSE 75; RESP 18; O2SAT 99
[2021-10-24 17:54] LABS: SARS-CoV-2 RNA PCR Negative
== END 2021-10-24 17:15 | disposition home or self-care (01) ==
LOC: ANHED 15:47
PROVIDERS: Emergency Provider General Practice; PCP Internal Medicine Infectious Disease
DX: M79.12 Myalgia of auxiliary muscles, head and neck (principal); M25.532 Pain in left wrist; Z20.822 Contact with and (suspected) exposure to COVID-19; I10 Essential (primary) hypertension; M32.9 Systemic lupus erythematosus, unspecified; E07.9 Disorder of thyroid, unspecified; K21.9 Gastro-esophageal reflux disease without esophagitis; F32.A Depression, unspecified; Z90.10 Acquired absence of unspecified breast and nipple; Z85.3 Personal history of malignant neoplasm of breast; Z96.659 Presence of unspecified artificial knee joint; Z98.1 Arthrodesis status; F17.220 Nicotine dependence, chewing tobacco, uncomplicated; M47.812 Spondylosis without myelopathy or radiculopathy, cervical region; R93.6 Abnormal findings on diagnostic imaging of limbs
CPT/HCPCS: 72125; 73110; 96372; 99284; A9270; C9803; J1885; U0003; U0005

== ENCOUNTER 2021-10-25 10:24 | Outpatient (CLI) | payer OTHER, SELFPAY ==
--- NOTE | ~2021-10-25 | XR_ITS ---
MODIFIED ESOPHAGRAM HISTORY: Dysphagia. TECHNIQUE: Modified barium esophagram was performed on 10/25/2021. I administered fluoroscopy and perf ormed the exam with speech pathologist. Patient was seated for lateral fluoroscopic imaging for lakhwinder stion of thin liquids, pudding, solids and quantified amounts, followed by thin liquids in uncontroll ed amounts. This was recorded on tape. A single fluoroscopic spot image was also recorded. The amount of fluoroscopy time used during this procedure was 2.0 minutes. FINDINGS: Oral stage: Adequate function. Pharyngeal stage: Adequate function. Cervical/esophageal stage: Adequate function. Incidentally noted C5-C6 prosthetic disc. IMPRESSION: Patient tolerated regular consistency oral feedings in the upright position. Please maulik elate with speech pathologist findings and specific feeding recommendations. Reviewed, dictated and finalized at location A. NSED EMBALMER IMPRESSION: Patient tolerated regular consistency oral feedings in the upright position. Please correlate with speech pathologist findings and specific feedi ng recommendations.
--- NOTE | 2021-10-26 11:03 | STOPEVAL ---
MODIFIED BARIUM SWALLOW EVALUATION: Thank you for referring Chela Mcnulty to [facility].? Attending Provider: Randall Bartholomew MD Modified Barium Swallow Evaluation Recent Swallowing History Reports Dysphagia Yes: choking and gagging; can' t breathe when it feels something is stuck Duration of Dysphagia many years Other Factors Impacting Dysphagia Head/Neck Surgery History of Pneumonia No Reported Difficult Consistencies Solids Intake Method Prior to Swallow Oral Evaluation Diet Prior to Swallow Evaluation Regular, Level 7 Liquid Consistency Prior to Swallow Thin (0) Evaluation Consistency Solid Consistency Method of Presentation Spoon Oral Preparatory Symptoms None Oral Phase Symptoms None Pharyngeal Phase Symptoms None Severity of Vallecular Residue None - 0% No Residue Severity of Pyriform Sinus Residue None - 0% No Residue 8 Point Laryngeal Penetration-Aspiration Material Does Not Enter Airway Scale Cervical/Esophageal Symptoms None Mixed Consistency Method of Presentation Spoon Oral Preparatory Symptoms None Oral Phase Symptoms None Pharyngeal Phase Symptoms None Severity of Vallecular Residue None - 0% No Residue Severity of Pyriform Sinus Residue None - 0% No Residue 8 Point Laryngeal Penetration-Aspiration Material Does Not Enter Airway Scale Cervical/Esophageal Symptoms None Pureed Consistency Method of Presentation Spoon Oral Preparatory Symptoms None Oral Phase Symptoms None Pharyngeal Phase Symptoms None Severity of Vallecular Residue None - 0% No Residue Severity of Pyriform Sinus Residue None - 0% No Residue 8 Point Laryngeal Penetration-Aspiration Material Does Not Enter Airway Scale Cervical/Esophageal Symptoms None Thin Uncontrolled 2 Method of Presentation Straw Oral Preparatory Symptoms None Oral Phase Symptoms None Pharyngeal Phase Symptoms None Severity of Vallecular Residue None - 0% No Residue Severity of Pyriform Sinus Residue None - 0% No Residue 8 Point Laryngeal Penetration-Aspiration Material Does Not Enter Airway Scale Cervical/Esophageal Symptoms None Thin Uncontrolled 1 Method of Presentation Cup Oral Preparatory Symptoms None Oral Phase Symptoms None Pharyngeal Phase Symptoms None Severity of Vallecular Residue None - 0% No Residue Severity of Pyriform Sinus Residue None - 0% No Residue 8 Point Laryngeal Penetration-Aspiration Material Does Not Enter Airway Scale Cervical/Esophageal Symptoms None Thin 5 mL Method of Presentation Spoon Oral Preparatory Symptoms None O
== END 2021-10-25 10:25 | disposition home or self-care (01) ==
LOC: ANHIMG 10:25
PROVIDERS: PCP Internal Medicine Infectious Disease; Visit Provider Internal Medicine Gastroenterology
DX: R13.10 Dysphagia, unspecified (principal)
CPT/HCPCS: 92611

== ENCOUNTER 2021-12-01 13:05 | Outpatient (CLI) | payer OTHER, SELFPAY | END 2021-12-01 13:06 | disposition home or self-care (01) | LOC: ANHAUDIO 13:06 | PROVIDERS: PCP Internal Medicine Infectious Disease; Referring Provider Otolaryngology; Visit Provider Otolaryngology | DX: H91.90 Unspecified hearing loss, unspecified ear (principal) | CPT/HCPCS: 92557; 92567 ==

== ENCOUNTER 2021-12-23 13:20 | Outpatient (CLI) | payer OTHER, SELFPAY ==
--- NOTE | ~2021-12-23 | CT_ITS ---
EXAMINATION: CT pelvis w con DATE: 12/23/2021 14:08 INDICATION: Suprapubic swelling/pain. TECHNIQUE: High resolution computed tomography (CT) of the pelvis was performed with 100 mL Omnipaque -350 intravenous contrast. Additional sagittal and coronal reconstructions were performed. Automated exposure control and iterative reconstruction technique were employed. The dose-length product was 69 6.01 mGy-cm. COMPARISON: None FINDINGS: Postoperative changes along the anterior pelvic wall which could be related to prior panniculectomy. No ventral hernia or abnormal suprapubic masses or fluid collections identified. Bladder is normal. T he uterus is not identified and has likely been surgically resected. Minimal likely physiologic free fluid in the posterior pelvis. Visualized portions bowels are unremarkable with no obstruction. No pa thologically enlarged pelvic or inguinal lymphadenopathy. Moderate to severe bilateral lower lumbar f acet osteoarthritis. Mild bilateral sacroiliac osteoarthritis. IMPRESSION: 1. Postoperative changes along the anterior pelvic wall suggestive of prior panniculectomy. No ventra l hernia or other abnormal masses or fluid collections identified. Reviewed, dictated and finalized at location A. IMPRESSION: 1. Postoperative changes along the anterior pelvic wall suggestive of prior soria niculectomy. No ventral hernia or other abnormal masses or fluid collections id entified.
[2021-12-23 13:48] LABS: Estimated Glomerular Filt Rate > 60
== END 2021-12-23 13:21 | disposition home or self-care (01) ==
LOC: ANHIMG 13:24
PROVIDERS: PCP Internal Medicine Infectious Disease; Visit Provider Nurse Practitioner
DX: R19.00 Intra-abdominal and pelvic swelling, mass and lump, unspecified site (principal)
CPT/HCPCS: 72193; Q9967

== ENCOUNTER 2022-01-06 16:52 | Emergency (ER) | payer OTHER, SELFPAY ==
--- NOTE | ~2022-01-06 | XR_ITS ---
XR chest 2V DATE: 01/06/2022 17:33 INDICATION: Cough, congestion, recent pneumonia. Hypertension. TECHNIQUE: PA and lateral views COMPARISON: 06/22/2021 portable upright AP chest FINDINGS: Right Port-A-Cath catheter tip is situated near superior cavoatrial junction. Left reverse glenohumeral joint replacement. Lower cervical spine surgical fusion. Normal heart size. No hilar or mediastinal enlargement. No pulmonary infiltrate or consolidation, ple ural effusion or pulmonary vascular congestion or pneumothorax. IMPRESSION: No active cardiopulmonary disease Reviewed, dictated and finalized at location A.
--- NOTE | ~2022-01-06 | XR_ITS ---
EXAMINATION: XR lumbar spine 2-3V DATE: 01/06/2022 18:33 INDICATION: Low back pain. TECHNIQUE: 3 views of lumbar spine were obtained. COMPARISON: Lumbar spine radiographs 09/25/2021 FINDINGS: Bone alignment is normal. Vertebral body heights are normal. There is mildly decreased disc height from L2-L3 through L4-L5. There is multilevel facet joint osteoarthritis, severe at multiple levels. Surgical clips in the right upper quadrant are likely from cholecystectomy. IMPRESSION: 1. Mild lumbar spondylosis. Reviewed, dictated and finalized at location A. IMPRESSION: 1. Mild lumbar spondylosis.
[2022-01-06 17:10] VITALS: BP 160/93; PULSE 67; RESP 18; TEMP 36.9; O2SAT 99
--- NOTE | 2022-01-06 17:13 | ECG_ITS ---
Measurements Intervals [place] Rate: 64 P: 53 SD: 188 QRS: -16 QRSD: 97 T: 31 QT: 371 QTc: 385 Interpretive Statements SINUS RHYTHM POSSIBLE LEFT ATRIAL ENLARGEMENT POSSIBLE LEFT VENTRICULAR HYPERTROPHY CANNOT RULE OUT SEPTAL INFARCT, AGE INDETERMINATE MINIMAL Q WAVES- HIGH LATERAL LEADS BORDERLINE ST-T WAVE ABNORMALITY- DIFFUSE LEADS ABNORMAL ECG Electronically Signed On 01-06-2022 19:47:31 CDT by Scottie Montgomery D.O.
--- NOTE | 2022-01-06 17:46 | PC.NURSE ---
Pt also has c/o right low back pain that radiates down her RLE
--- NOTE | 2022-01-06 18:23 | ED.URI ---
HPI - URI/Sore Throat General Chief Complaint: Upper Respiratory Infection Stated Complaint: cough and horseness Time Seen by Provider: 01/06/22 17:55 Source: patient Mode of arrival: ambulatory Limitations: no limitations History of Present Illness HPI Narrative: This is a 51 year old female that presents to the ER for cold symptoms present over the last couple of days. Reports cough, congestion, hoarseness. Reports she has chest pain with coughing. Also reports she slipped and sustained a ground-level fall yesterday. Reports landing on her bottom. She did not hit her head or lose consciousness. Reports that she has had some low back pain radiating down the right leg. Denies fever, shortness of breath, numbness or weakness. Related Data Home Medications Medication Instructions Recorded Confirmed cyclobenzaprine 10 mg PO TID PRN 10/13/19 10/11/21 ergocalciferol (vitamin D2) 50,000 unit PO WEEKLY 10/13/19 10/11/21 hydrocodone-acetaminophen 1 tablet PO TID PRN 10/13/19 10/11/21 hydroxychloroquine 200 mg PO DAILY 10/13/19 10/11/21 levothyroxine 50 mcg PO QAM 10/13/19 10/11/21 lisinopril 40 mg PO QAM 10/13/19 10/11/21 venlafaxine 225 mg PO QAM 10/13/19 10/11/21 pregabalin [Lyrica] 300 mg PO BID 05/18/20 10/11/21 Allergies Allergy/AdvReac Type Severity Reaction Status Date / Time adhesive tape Allergy Unknown Rash Verified 10/11/21 15:11 Review of Systems Review of Systems: CONSTITUTIONAL: Denies fever ENT: Reports congestion CARDIOVASCULAR: Reports chest pain. Denies edema. RESPIRATORY: Reports cough. Denies dyspnea. MUSCULOSKELETAL: Reports back pain, and myalgia. NEUROLOGIC: Denies numbness, or weakness. All systems reviewed & are unremarkable except as noted in HPI and below PMFSH Past Medical History Medical History Breast cancer Depression GERD (gastroesophageal reflux disease) History of blood transfusion HTN (hypertension) Lupus (systemic lupus erythematosus) Sepsis Thyroid disease Surgical History Surgical History H/O mastectomy H/O: hysterectomy History of appendectomy History of carpal tunnel release History of cholecystectomy History of knee replacement Port-A-Cath in place S/P bilateral breast implants S/P cervical spinal fusion S/P shoulder surgery S/P trigger finger release Family History Family History Other Family history of malignant neoplasm Hypertension Social History Social History Smoking status: Never smoker Smokeless tobacco user: chewing tobacco Second hand tobacco smoke exposure: No Additional smoking assessment comments: chewed tobacco occassionally as a teen Alcohol intake: never Substance use: never Substance use type: does not use Gender identity (if verbalized by the patient): Female Spiritual care concerns: No Exam Narrative: GENERAL: Well-appearing, well-nourished, and in no acute distress. HEAD: Normocephalic, atraumatic. EYES: EOMI. ENT: Nares clear, no rhinorrhea or epistaxis. Mucous membranes moist. Oropharynx without tonsillar hypertrophy exudate or other lesions. Bilateral TMs pearly aguilera non-bulging NECK: Supple. No adenopathy or masses. CHEST: Clear to auscultation. No respiratory distress. No wheezes rales or rhonchi HEART: Regular rate and rhythm. No murmur heard. Normal peripheral pulses. BACK: No midline spinal tenderness EXTREMITIES: Normal range of motion. No edema. Strength equal in bilateral lower extremities (5/5) SKIN: Warm, dry, no rash. NEURO: No focal deficits. Alert and oriented x3. PSYCH: Normal mood and affect Course Vital Signs Vital signs: Vital Signs Temperature 98.4 F 01/06/22 17:10 Pulse Rate 67 01/06/22 17:10 Respiratory Rate 18 01/06/22 17:10 Blood Pressure 160/93 H 01/06/22 17:10
[2022-01-06] MEDS: ACETAMINOPHEN 500 MG TABLET 1000 MG PO (19:01)
[2022-01-06 19:02] LABS: Basophils Percent Auto 0.6 % (0.2-1.2); Eosinophils Absolute Auto 0.2 K/mm3 (0-0.3); Eosinophils Percent Auto 2.8 % (0-4.4); Hematocrit 38.2 % (37.0-47.0); Hemoglobin 11.9 g/dL (12.0-15.0); Immature Granulocyte Absolute 0.02 K/mm3 (0.00-0.031); Immature Granulocyte Percent A 0.3 % (0-0.5); Lymphocytes Absolute Auto 2.39 K/mm3 (0.9-3.2); Lymphocytes Percent Auto 37.2 % (18.3-44.2); Mean Corpuscular HGB Conc 31.2 g/dl (32-36); Mean Corpuscular Hemoglobin 26.3 pg (26-34); Mean Corpuscular Volume 84.5 fl (80-100); Monocytes Absolute Auto 0.6 K/mm3 (0.1-0.6); Neutrophils Absolute Auto 3.2 K/mm3 (1.3-6.7); Neutrophils Percent Auto 49.1 % (45.5-73.1); Platelet Count Result 228 k/mm3 (150-375); Red Blood Count 4.52 M/mm3 (4.2-5.4); Red Cell Distribution Width 14.8 % (11.5-14.5); White Blood Count 6.4 K/mm3 (4.5-10.0)
[2022-01-06] MEDS: KETOROLAC 30 MG/ML VIAL (*BKC) IV PUSH (19:02)
[2022-01-06] MEDS: KETOROLAC (*BKC) 60 MG/2 ML VIAL IM (19:04)
[2022-01-06 19:14] LABS: Alanine Aminotransferase 21 U/L (4-35); Albumin Level 4.2 g/dL (3.5-5.1); Alkaline Phosphatase 76 U/L (38-126); Anion Gap 7 mmol/L (8-16); Aspartate Amino Transferase 35 U/L (14-36); Bilirubin,Total 0.3 mg/dL (0.2-1.3); Blood Urea Nitrogen 12 mg/dL (7-17); Calcium 8.6 mg/dL (8.4-10.2); Carbon Dioxide 27 mmol/L (22-30); Chloride 105 mmol/L (98-107); Estimated CRCL calculation 80 ml/min; Estimated Glomerular Filt Rate > 60; Glucose 78 mg/dL (65-110); Potassium 4.1 mmol/L (3.4-5.0); Sodium 139 mmol/L (137-145)
[2022-01-06 19:20] LABS: Influenza A QL RT-PCR Negative (Negative); Influenza B QL RT-PCR Negative (Negative); SARS-CoV-2 RNA PCR Negative
[2022-01-06 19:26] LABS: Troponin I < 0.012 ng/mL (0.000-0.034)
[2022-01-06] MEDS: HEPARIN SODIUM LOCK FLUSH 500 UNITS/5 ML VIAL (20:19)
== END 2022-01-06 20:24 | disposition home or self-care (01) ==
PROVIDERS: Emergency Medicine; Physician Assistant; Emergency Provider Emergency Medicine; PCP Internal Medicine Infectious Disease
DX: B34.9 Viral infection, unspecified (principal); M54.41 Lumbago with sciatica, right side; Z20.822 Contact with and (suspected) exposure to COVID-19; I10 Essential (primary) hypertension; M32.9 Systemic lupus erythematosus, unspecified; E07.9 Disorder of thyroid, unspecified; K21.9 Gastro-esophageal reflux disease without esophagitis; F32.A Depression, unspecified; Z85.3 Personal history of malignant neoplasm of breast; Z90.10 Acquired absence of unspecified breast and nipple; Z96.659 Presence of unspecified artificial knee joint; Z98.1 Arthrodesis status; Z87.891 Personal history of nicotine dependence; M47.816 Spondylosis without myelopathy or radiculopathy, lumbar region; W01.0XXA Fall on same level from slipping, tripping and stumbling without subsequent striking against object, initial encounter
CPT/HCPCS: 36415; 71046; 72100; 80053; 84484; 85025; 87502; 93005; 96372; 96374; 99284; A9270; C9803; J1642; J1885; U0003; U0005

== ENCOUNTER 2022-02-06 12:55 | Outpatient (CLI) | payer OTHER, SELFPAY ==
[2022-02-06 13:26] LABS: Basophils Percent Auto 0.7 % (0.2-1.2); Eosinophils Absolute Auto 0.1 K/mm3 (0-0.3); Eosinophils Percent Auto 2.2 % (0-4.4); Hematocrit 39.8 % (37.0-47.0); Immature Granulocyte Absolute 0.01 K/mm3 (0.00-0.031); Immature Granulocyte Percent A 0.2 % (0-0.5); Lymphocytes Absolute Auto 2.08 K/mm3 (0.9-3.2); Lymphocytes Percent Auto 38.7 % (18.3-44.2); Mean Corpuscular HGB Conc 32.7 g/dl (32-36); Mean Corpuscular Hemoglobin 26.8 pg (26-34); Mean Corpuscular Volume 82.1 fl (80-100); Monocytes Absolute Auto 0.3 K/mm3 (0.1-0.6); Monocytes Percent Auto 6.3 % (2.6-8.5); Neutrophils Absolute Auto 2.8 K/mm3 (1.3-6.7); Neutrophils Percent Auto 51.9 % (45.5-73.1); Platelet Count Result 253 k/mm3 (150-375); Red Blood Count 4.85 M/mm3 (4.2-5.4); Red Cell Distribution Width 15.2 % (11.5-14.5); White Blood Count 5.4 K/mm3 (4.5-10.0)
[2022-02-06 13:44] LABS: Alanine Aminotransferase 22 U/L (6-35); Albumin Level 4.5 g/dL (3.5-5.1); Alkaline Phosphatase 70 U/L (38-126); Anion Gap 11 mmol/L (8-16); Aspartate Amino Transferase 25 U/L (14-36); Bilirubin,Total 0.3 mg/dL (0.2-1.3); Blood Urea Nitrogen 23 mg/dL (7-17); Calcium 8.9 mg/dL (8.4-10.2); Carbon Dioxide 24 mmol/L (22-30); Chloride 106 mmol/L (98-107); Estimated Glomerular Filt Rate > 60; Glucose 118 mg/dL (65-110); Potassium 3.5 mmol/L (3.4-5.0); Sodium 141 mmol/L (137-145)
[2022-02-10 06:22] LABS: CA 15-3 11 U/mL (<32)
== END 2022-02-06 12:56 | disposition home or self-care (01) ==
LOC: ANHLAB 12:57
PROVIDERS: PCP Internal Medicine Infectious Disease; Visit Provider Internal Medicine Hematology & Oncology
DX: C50.412 Malignant neoplasm of upper-outer quadrant of left female breast (principal); Z17.0 Estrogen receptor positive status [ER+]
CPT/HCPCS: 36415; 80053; 85025; 86300

== ENCOUNTER 2022-03-21 13:59 | Outpatient (RCR) | payer OTHER, SELFPAY | END 2022-03-21 23:59 | disposition home or self-care (01) | LOC: ANHAUDIO 13:59 | PROVIDERS: PCP Internal Medicine Infectious Disease; Visit Provider Internal Medicine Infectious Disease | DX: Z46.1 Encounter for fitting and adjustment of hearing aid (principal) | CPT/HCPCS: 99199 ==

== ENCOUNTER 2022-04-17 20:23 | Emergency (ER) | payer OTHER, SELFPAY ==
--- NOTE | ~2022-04-17 | XR_ITS ---
EXAMINATION: XR hip RT 2V w AP pelvis DATE: 04/17/2022 21:20 INDICATION: Pain radiating from the low back to the right hip. TECHNIQUE: An anteroposterior view of the pelvis and 2 views of right hip were obtained. COMPARISON: Pelvis and right hip radiographs 09/25/2021 FINDINGS: Bone alignment is normal. No fracture. There is mild osteoarthritis of the hips. There is m ild lumbar spondylosis. Surgical clips overlie the pelvis. IMPRESSION: 1. Mild osteoarthritis of the hips. Reviewed, dictated and finalized at location A.
--- NOTE | ~2022-04-17 | CT_ITS ---
EXAMINATION: CT lumbar spine wo con DATE: 04/17/2022 21:11 INDICATION: Right-sided low back pain. TECHNIQUE: Computed tomography (CT) of the lumbar spine was performed without intravenous contrast. A utomated exposure control and iterative reconstruction technique were employed. The dose-length produ ct was 1140.79 mGy-cm. COMPARISON: None FINDINGS: There are changes of cholecystectomy. Bone alignment is normal. Vertebral body heights are normal. There is mildly decreased disc height at L2-L3, L3-L4, and L4-L5. The following disc levels a re specifically discussed: L1-L2: The disc does not extend beyond the endplate margin. There is severe right and moderate left f acet joint osteoarthritis. There is no neural foraminal stenosis. There is no central canal stenosis. L2-L3: The disc is bulging. There is moderate right and severe left facet joint osteoarthritis. There is mild bilateral neural foraminal stenosis. There is mild central canal stenosis. L3-L4: The disc is bulging. There is severe bilateral facet joint osteoarthritis. There is mild bilat eral neural foraminal stenosis. There is mild central canal stenosis. L4-L5: The disc is bulging. There is severe bilateral facet joint osteoarthritis. There is mild bilat eral neural foraminal stenosis. There is mild central canal stenosis. L5-S1: The disc is bulging. There is severe bilateral facet joint osteoarthritis. There is mild right and moderate left neural foraminal stenosis. There is mild central canal stenosis. IMPRESSION: 1. Moderate lumbar spondylosis. Reviewed, dictated and finalized at location A.
[2022-04-17 20:15] VITALS: BP 176/113; PULSE 66; RESP 18; TEMP 36.4; O2SAT 98
--- NOTE | 2022-04-17 21:00 | ED.FALL ---
HPI - Fall General Chief Complaint: Fall Stated Complaint: GLF WITH HIP INJURY Time Seen by Provider: 04/17/22 20:37 History of Present Illness HPI Narrative: 52-year-old female brought in by ambulance secondary to a fall at a local store. She states she feels like she stepped on something that was when she slipped and fell. She landed on her right buttock. Before this she was already having some pain into her lower back. Now it seems to be worse and pain to the buttock with some radiation down the right leg. Hurts with any movement of the right lower extremity. She is already had bilateral knee replacements in the past. Did not hit her head had no loss of consciousness. She is got a history of breast cancer. Has a port in place. Related Data Home Medications Medication Instructions Recorded Confirmed cyclobenzaprine 10 mg tablet 10 mg PO TID PRN Muscle Pain 10/13/19 10/11/21 ergocalciferol (vitamin D2) 1,250 50,000 unit PO WEEKLY 10/13/19 10/11/21 mcg (50,000 unit) capsule hydrocodone 5 mg-acetaminophen 325 1 tablet PO TID PRN pain 10/13/19 10/11/21 mg tablet hydroxychloroquine 200 mg tablet 200 mg PO DAILY 10/13/19 10/11/21 levothyroxine 50 mcg tablet 50 mcg PO QAM 10/13/19 10/11/21 lisinopril 40 mg tablet 40 mg PO QAM 10/13/19 10/11/21 venlafaxine 225 mg tablet,extended 225 mg PO QAM 10/13/19 10/11/21 release 24 hr pregabalin 300 mg capsule (Lyrica) 300 mg PO BID 05/18/20 10/11/21 Allergies Allergy/AdvReac Type Severity Reaction Status Date / Time adhesive tape Allergy Unknown Rash Verified 04/17/22 20:25 Review of Systems Review of Systems: CONSTITUTIONAL: Denies fever, chills, or sweats. EYES: Denies visual changes, redness, or discharge. ENT: Denies rhinorrhea, congestion, sore throat, or otalgia. CARDIOVASCULAR: Denies chest pain, palpitations, or edema. RESPIRATORY: Denies cough or dyspnea. GASTROINTESTINAL: Denies abdominal pain, nausea, vomiting, or diarrhea. GENITOURINARY: Denies dysuria or hematuria. SKIN: Denies rash or itching. MUSCULOSKELETAL: Pain to the lower lumbar back more on the right side. Also pain to the right hip region. NEUROLOGIC: Denies headache, numbness, or weakness. PSYCHIATRIC: Denies anxiety or depression. [facility] Past Medical History Medical History Breast cancer Depression GERD (gastroesophageal reflux disease) History of blood transfusion HTN (hypertension) Lupus (systemic lupus erythematosus) Sepsis Thyroid disease Surgical History Surgical History H/O mastectomy H/O: hysterectomy History of appendectomy History of carpal tunnel release History of cholecystectomy History of knee replacement Port-A-Cath in place S/P bilateral breast implants S/P cervical spinal fusion S/P shoulder surgery S/P trigger finger release Family History Family History Other Family history of malignant neoplasm Hypertension Social History Social History Smoking status: Never smoker Smokeless tobacco user: chewing tobacco Second hand tobacco smoke exposure: No Additional smoking assessment comments: chewed tobacco occassionally as a teen Alcohol intake: never Substance use: never Substance use type: does not use Gender identity (if verbalized by the patient): Female Spiritual care concerns: No Exam Narrative: APPEARANCE: Patient appears to be in mild distress secondary to pain. She is obese.. Head Normocephalic and atraumatic. EYES: PERRLA/EOMI, conjunctivae clear. NOSE: Normal with no drainage EARS:TMS clear with [place], with good light reflex. THROAT: Pharynx clear, no exudate. NECK: Supple. No adenopathy, no masses. RESPIRATORY: Airway patent, respirations nonlabored. Clear to auscultation bilaterally, no rales, rhonchi, wheezing. CARDI
--- NOTE | 2022-04-17 21:03 | PC.NURSE ---
PT in catscan / xray at this time.
[2022-04-17] MEDS: KETOROLAC (*BKC) 60 MG/2 ML VIAL IM (21:27)
[2022-04-17] MEDS: CYCLOBENZAPRINE HCL 10 MG TABLET PO (21:28)
[2022-04-17 21:31] VITALS: BP 167/98; PULSE 65; RESP 17; O2SAT 99
== END 2022-04-17 22:42 | disposition home or self-care (01) ==
PROVIDERS: Emergency Provider Emergency Medicine; PCP Internal Medicine Infectious Disease
DX: M51.36 Other intervertebral disc degeneration, lumbar region (principal); S70.01XA Contusion of right hip, initial encounter; F32.9 Major depressive disorder, single episode, unspecified; K21.9 Gastro-esophageal reflux disease without esophagitis; I10 Essential (primary) hypertension; M32.9 Systemic lupus erythematosus, unspecified; Z85.3 Personal history of malignant neoplasm of breast; W01.0XXA Fall on same level from slipping, tripping and stumbling without subsequent striking against object, initial encounter
CPT/HCPCS: 72131; 73502; 96372; 99284; A9270; J1885

== ENCOUNTER 2022-06-13 16:16 | Emergency (ER) | payer OTHER, SELFPAY ==
--- NOTE | ~2022-06-13 | CT_ITS ---
EXAMINATION: CT abd pelvis lumbar w con DATE: 06/13/2022 21:40 INDICATION: flank pain, sepsis TECHNIQUE: Computed tomography (CT) of the lumbar spine, abdomen and pelvis was performed with 100 mL Omnipaque-350 intravenous contrast. Automated exposure control and iterative reconstruction techniqu e were employed. The dose-length product was 1284.40 mGy-cm. COMPARISON: CT lumbar spine 04/17/2022. CT abdomen and pelvis 07/16/2020. FINDINGS: Lower thorax: Right axillary and breast scarring. Bilateral implants. Liver: Normal. Biliary/Gallbladder: Gallbladder is absent. No bile duct dilation. Pancreas: No mass or duct dilation. Spleen: Normal. Adrenals:No mass. Kidneys: No mass, stone, or hydronephrosis. GI tract: Distal esophageal and gastric wall edema. No small or large bowel dilation. Appendix not vi sualized. Mesentery/Peritoneum: No ascites, mass, or free air. Retroperitoneum: No mass. Atherosclerotic abdominal aortic and/or arterial calcifications. Pelvis: Wall thickening with incomplete distention of the bladder. Small volume free pelvic fluid. . Soft Tissues: Soft tissues and body wall unremarkable. Lumbar spine: 5 nonrib-bearing lumbar-type vertebral bodies. Severe multilevel facet arthropathy. No severe central canal or neural foraminal narrowing. Additional visualized bones: No acute osseous finding. IMPRESSION: Esophagitis/gastritis. Cystitis versus incomplete bladder distention. Reviewed, dictated and finalized at location K.
--- NOTE | ~2022-06-13 | XR_ITS ---
EXAM: XR shoulder LT min 2V DATE: 06/13/2022 19:44 HISTORY: left shoulder pain, hx of surgery . COMPARISON: X-ray chest, same date and 01/06/2022. FINDINGS: Interbody device in the cervical spine. Left shoulder arthroplasty, humeral and glenoid com ponents are aligned, without abnormal perihilar hardware lucency or hardware fracture. Normal mineral ization. No osseous fracture or dislocation. No lytic or blastic lesion. Possible soft tissue swellin g about the shoulder. IMPRESSION: Left shoulder arthroplasty, without definite radiographic evidence of hardware-related co mplication, noting that sensitivity would be increased if post operative films are available for comp arison. Reviewed, dictated and finalized at location K. IMPRESSION: Left shoulder arthroplasty, without definite radiographic evidence of hardware-related complication, noting that sensitivity would be increased if post operative films are available for comparison.
--- NOTE | ~2022-06-13 | XR_ITS ---
EXAMINATION: XR chest 1V portable Exam Date/Time: 06/13/2022 19:15 CDT HISTORY: fever AND EXISTING PORT A CATH Comparison: 01/06/2022. RESULT: Lines, tubes, and devices: Accessed implanted port in the right chest, terminates at the cavoatrial junction. Partially visualized left shoulder arthroplasty Lungs and pleura: Low lung volumes with crowding. Cardiomediastinal silhouette: Stable. Other: No acute osseous or upper abdominal finding. IMPRESSION: No acute cardiopulmonary process. Reviewed, dictated and finalized at location K.
[2022-06-13 16:23] VITALS: BP 106/64; PULSE 95; RESP 23; TEMP 38.4; O2SAT 98
[2022-06-13 16:56] LABS: Basophils Absolute Auto 0.1 K/mm3 (0.0-0.1); Basophils Percent Auto 0.4 % (0.2-1.2); Eosinophils Percent Auto 0.3 % (0-4.4); Hematocrit 36.1 % (37.0-47.0); Hemoglobin 11.7 g/dL (12.0-15.0); Immature Granulocyte Absolute 0.05 K/mm3 (0.00-0.031); Immature Granulocyte Percent A 0.4 % (0-0.5); Lymphocytes Absolute Auto 1.59 K/mm3 (0.9-3.2); Lymphocytes Percent Auto 12.6 % (18.3-44.2); Mean Corpuscular HGB Conc 32.4 g/dl (32-36); Mean Corpuscular Hemoglobin 27.3 pg (26-34); Mean Corpuscular Volume 84.1 fl (80-100); Mean Platelet Volume 8.9 fl (7.4-10.4); Monocytes Percent Auto 8.2 % (2.6-8.5); Neutrophils Absolute Auto 9.9 K/mm3 (1.3-6.7); Neutrophils Percent Auto 78.1 % (45.5-73.1); Platelet Count Result 268 k/mm3 (150-375); Red Blood Count 4.29 M/mm3 (4.2-5.4); Red Cell Distribution Width 15.2 % (11.5-14.5); White Blood Count 12.6 K/mm3 (4.5-10.0)
[2022-06-13 17:04] LABS: Lactic Acid Reflex 2.4 mmol/L (0.7-2.0)
[2022-06-13 17:05] LABS: Add Urine Microscopic? YES; Appearance Urine Clear (Clear); Bacteria Urine Trace /hpf; Bilirubin Urine Negative (Negative); Blood Urine Negative (Negative); Color Urine Straw (Yellow); Glucose Urine UA Negative (Negative); Ketones Urine Negative (Negative); Leukocyte Esterase Ur 1+ LEU/UL (Negative); Mucus Urine Rare /lpf; Nitrate Urine Negative (Negative); Protein Urine Negative (Negative); Squamous Epithelial Cell Urine Rare /hpf (Few); Urobilinogen Urine Negative mg/dL (<2.0); WBC Urine 0-3 /hpf
[2022-06-13 17:06] LABS: Specific Grav Ur 1.003 (1.001-1.035)
[2022-06-13 17:07] LABS: INR 1.2; Prothrombin Time 14.7 Seconds (11.1-14.7)
[2022-06-13 17:08] LABS: Partial Thromboplastin Time 29.2 SECONDS (22.3-36.8)
[2022-06-13 17:21] LABS: Alanine Aminotransferase 27 U/L (6-35); Albumin Level 4.3 g/dL (3.5-5.1); Alkaline Phosphatase 92 U/L (38-126); Anion Gap 12 mmol/L (8-16); Aspartate Amino Transferase 29 U/L (14-36); Bilirubin,Total 0.9 mg/dL (0.2-1.3); Blood Urea Nitrogen 12 mg/dL (7-17); Calcium 9.2 mg/dL (8.4-10.2); Carbon Dioxide 25 mmol/L (22-30); Chloride 99 mmol/L (98-107); Estimated CRCL calculation 73 ml/min; Estimated Glomerular Filt Rate > 60; Glucose 98 mg/dL (65-110); Potassium 3.8 mmol/L (3.4-5.0); Sodium 136 mmol/L (137-145)
[2022-06-13 17:59] LABS: CRP 33.9 mg/dL (<1.0)
--- NOTE | 2022-06-13 19:05 | ED.FEVER ---
HPI - Fever General Chief Complaint: Fever Stated Complaint: fever, chills Time Seen by Provider: 06/13/22 18:52 Source: patient Mode of arrival: ambulatory Limitations: no limitations History of Present Illness HPI Narrative: The patient is a 52-year-old female with history of breast cancer (currently in remission), lupus, hypertension, hypothyroidism, recent left shoulder replacement with Dr. Mariano Guzmán in April 2022, presenting to the emergency department for evaluation of left shoulder pain, fever, myalgias. Patient reports that she has had worsening left shoulder pain with difficulty moving the left shoulder over the past 72 hours. Patient reports fever, chills, severe aching pain in the left shoulder. Patient reports that she is also having myalgias including back pain. She denies chest pain or shortness of breath. She denies rhinorrhea, congestion, sore throat. No recent sick contacts. She denies dysuria or hematuria. Patient denies any rashes or lesions. She reports the left shoulder is warm, mildly red. She has not been able to range the left arm secondary to pain. She denies elbow or wrist pain. Related Data Home Medications Medication Instructions Recorded Confirmed cyclobenzaprine 10 mg tablet 10 mg PO TID PRN Muscle Pain 10/13/19 10/11/21 ergocalciferol (vitamin D2) 1,250 50,000 unit PO WEEKLY 10/13/19 10/11/21 mcg (50,000 unit) capsule hydrocodone 5 mg-acetaminophen 325 1 tablet PO TID PRN pain 10/13/19 10/11/21 mg tablet hydroxychloroquine 200 mg tablet 200 mg PO DAILY 10/13/19 10/11/21 levothyroxine 50 mcg tablet 50 mcg PO QAM 10/13/19 10/11/21 lisinopril 40 mg tablet 40 mg PO QAM 10/13/19 10/11/21 venlafaxine 225 mg tablet,extended 225 mg PO QAM 10/13/19 10/11/21 release 24 hr pregabalin 300 mg capsule (Lyrica) 300 mg PO BID 05/18/20 10/11/21 Allergies Allergy/AdvReac Type Severity Reaction Status Date / Time adhesive tape Allergy Unknown Rash Verified 04/17/22 20:25 Review of Systems Review of Systems: CONSTITUTIONAL: Reports fever and chills EYES: Denies visual changes, redness, or discharge. ENT: Denies rhinorrhea, congestion, sore throat, or otalgia. CARDIOVASCULAR: Denies chest pain, palpitations, or edema. RESPIRATORY: Denies cough or dyspnea. GASTROINTESTINAL: Denies abdominal pain, reports nausea without vomiting GENITOURINARY: Denies dysuria or hematuria. SKIN: Denies rash or itching. MUSCULOSKELETAL: Reports back pain, reports left shoulder pain, reports myalgias NEUROLOGIC: Denies headache, numbness, or weakness. [facility] Past Medical History Medical History Breast cancer Depression GERD (gastroesophageal reflux disease) History of blood transfusion HTN (hypertension) Lupus (systemic lupus erythematosus) Sepsis Thyroid disease Surgical History Surgical History H/O mastectomy H/O: hysterectomy History of appendectomy History of carpal tunnel release History of cholecystectomy History of knee replacement Port-A-Cath in place S/P bilateral breast implants S/P cervical spinal fusion S/P shoulder surgery S/P trigger finger release Family History Family History Other Family history of malignant neoplasm Hypertension Social History Social History Smoking status: Never smoker Smokeless tobacco user: chewing tobacco Second hand tobacco smoke exposure: No Additional smoking assessment comments: chewed tobacco occassionally as a teen Alcohol intake: never Substance use: never Substance use type: does not use Gender identity (if verbalized by the patient): Female Spiritual care concerns: No Exam Narrative: GENERAL: Awake, alert, conversant, ill-appearing HEAD: Normocephalic, atraumatic. EYES: PERRLA and EOMI. ENT: Nares clear,
[2022-06-13 19:50] LABS: Influenza A QL RT-PCR Negative (Negative); Influenza B QL RT-PCR Negative (Negative); SARS-CoV-2 RNA PCR Negative
[2022-06-13 19:53] LABS: Reflex Lactic Acid Yes or No Add Lactic
[2022-06-13 20:17] LABS: Lactic Acid 2.8 mmol/L (0.7-2.0)
[2022-06-13 20:40] LABS: Erythrocyte Sedimentation Rate 65 mm/hr (0-20)
[2022-06-13] MEDS: ONDANSETRON INJ 4 MG/2 ML VIAL IV PUSH (20:49)
[2022-06-13] MEDS: MORPHINE SULFATE (*CRX) 4 MG/ML INJ IV PUSH (20:49)
[2022-06-13] MEDS: HYDROmorphone HCL INJ (*CRX) 1 MG/ML SYR 0.5 MG IV PUSH (22:21)
--- NOTE | 2022-06-14 00:03 | PC.NURSE ---
[id number] mechanic from [facility] calls to inform this RN that phone report was not given prior to arrival. Nurse caring for pt is no longer on duty. This RN provided phone report
== END 2022-06-13 22:47 | disposition short-term general hospital (02) ==
PROVIDERS: Emergency Provider Emergency Medicine; PCP Internal Medicine Infectious Disease
DX: A41.9 Sepsis, unspecified organism (principal); R65.20 Severe sepsis without septic shock; M00.812 Arthritis due to other bacteria, left shoulder; Z20.822 Contact with and (suspected) exposure to COVID-19; E03.9 Hypothyroidism, unspecified; I10 Essential (primary) hypertension; K21.9 Gastro-esophageal reflux disease without esophagitis; M32.9 Systemic lupus erythematosus, unspecified; F32.A Depression, unspecified; Z85.3 Personal history of malignant neoplasm of breast; Z96.612 Presence of left artificial shoulder joint; Z90.10 Acquired absence of unspecified breast and nipple; Z96.659 Presence of unspecified artificial knee joint; Z98.1 Arthrodesis status; Z87.891 Personal history of nicotine dependence; K20.90 Esophagitis, unspecified without bleeding; K29.70 Gastritis, unspecified, without bleeding; R93.41 Abnormal radiologic findings on diagnostic imaging of renal pelvis, ureter, or bladder
CPT/HCPCS: 36415; 71045; 72132; 73030; 74177; 80053; 81001; 83605; 85025; 85610; 85652; 85730; 86140; 87040; 87502; 96361; 96365; 96375; 99285; C9803; J0692; J1170; J2270; J2405; J3370; J7030; Q9967; U0003; U0005

== ENCOUNTER 2022-10-10 13:03 | Outpatient (CLI) | payer OTHER, SELFPAY ==
[2022-10-10 13:59] LABS: Basophils Percent Auto 0.7 % (0.2-1.2); Eosinophils Absolute Auto 0.2 K/mm3 (0-0.3); Hematocrit 38.8 % (37.0-47.0); Immature Granulocyte Absolute 0.02 K/mm3 (0.00-0.031); Immature Granulocyte Percent A 0.3 % (0-0.5); Lymphocytes Absolute Auto 2.13 K/mm3 (0.9-3.2); Lymphocytes Percent Auto 36.9 % (18.3-44.2); Mean Corpuscular HGB Conc 30.9 g/dl (32-36); Mean Corpuscular Hemoglobin 25.5 pg (26-34); Mean Corpuscular Volume 82.6 fl (80-100); Mean Platelet Volume 8.5 fl (7.4-10.4); Monocytes Absolute Auto 0.4 K/mm3 (0.1-0.6); Monocytes Percent Auto 7.6 % (2.6-8.5); Neutrophils Absolute Auto 2.9 K/mm3 (1.3-6.7); Neutrophils Percent Auto 50.5 % (45.5-73.1); Platelet Count Result 256 k/mm3 (150-375); Red Cell Distribution Width 18.9 % (11.5-14.5); White Blood Count 5.8 K/mm3 (4.5-10.0)
[2022-10-10 14:17] LABS: Alanine Aminotransferase 26 U/L (6-35); Albumin Level 4.5 g/dL (3.5-5.1); Alkaline Phosphatase 86 U/L (38-126); Anion Gap 7 mmol/L (8-16); Aspartate Amino Transferase 28 U/L (14-36); Bilirubin,Total 0.5 mg/dL (0.2-1.3); Blood Urea Nitrogen 22 mg/dL (7-17); Calcium 9.3 mg/dL (8.4-10.2); Carbon Dioxide 25 mmol/L (22-30); Chloride 103 mmol/L (98-107); Estimated Glomerular Filt Rate > 60; Glucose 95 mg/dL (65-110); Potassium 4.1 mmol/L (3.4-5.0); Sodium 135 mmol/L (137-145)
[2022-10-14 04:16] LABS: CA 15-3 14 U/mL (<32)
== END 2022-10-10 13:04 | disposition home or self-care (01) ==
LOC: ANHLAB 13:04
PROVIDERS: PCP Internal Medicine Infectious Disease; Visit Provider Internal Medicine Hematology & Oncology
DX: C50.412 Malignant neoplasm of upper-outer quadrant of left female breast (principal); Z17.0 Estrogen receptor positive status [ER+]
CPT/HCPCS: 36415; 80053; 85025; 86300

== ENCOUNTER 2022-10-17 13:33 | Outpatient (CLI) | payer OTHER, SELFPAY ==
[2022-10-17 14:29] LABS: Immunoglobulin A 212 mg/dL (70-400); Immunoglobulin G 2337 mg/dL (700-1600); Immunoglobulin M 102 mg/dL (40-230)
[2022-10-20 20:07] LABS: Kappa\\Lambda Light Chains 1.23 (0.26-1.65); Lambda Light Chain 26.2 mg/L (5.7-26.3)
[2022-10-20 21:34] LABS: Albumin 4.3 g/dL (3.8-4.8); Alpha 1 Globulin 0.3 g/dL (0.2-0.3); Alpha 2 Globulin 0.8 g/dL (0.5-0.9); Beta 1 Globulin 0.5 g/dL (0.4-0.6); Protein, Total 8.4 g/dL (6.1-8.1)
== END 2022-10-17 13:34 | disposition home or self-care (01) ==
LOC: ANHLAB 13:34
PROVIDERS: PCP Internal Medicine Infectious Disease; Visit Provider Internal Medicine Hematology & Oncology
DX: R77.9 Abnormality of plasma protein, unspecified (principal)
CPT/HCPCS: 36415; 82784; 83883; 84155; 84165

== ENCOUNTER 2022-11-24 20:21 | Emergency (ER) | payer OTHER, SELFPAY ==
--- NOTE | ~2022-11-24 | XR_ITS ---
XR shoulder RT min 2V DATE: 11/24/2022 20:47 INDICATION: Right shoulder pain. No known injury. Rotator cuff surgery 2 years ago. TECHNIQUE: 4 views COMPARISON: None FINDINGS: There is resection of the lateral aspect of the right clavicle. No fracture or dislocation, periosteal reaction or bone destruction or abnormal soft tissue calcifica tion. IMPRESSION: Postoperative change of the lateral right clavicle Reviewed, dictated and finalized at location A.
[2022-11-24 20:24] VITALS: BP 127/70; PULSE 88; RESP 20; TEMP 36.9; O2SAT 99
--- NOTE | 2022-11-24 20:38 | ED.EXTPRO ---
HPI - Extremity Problem General Chief complaint: Extremity Problem,Nontraumatic Stated complaint: right arm pain Time Seen by Provider: 11/24/22 20:24 History of Present Illness HPI Narrative: This is a 52-year-old female with past medical history of hypertension, who presents the emergency department complaining of sharp, 8/10 right shoulder pain for the past week, worse in the last day. She states the pain is aggravated by movement, particularly lifting objects. The pain radiates towards the right arm and does not move to the chest. It is not exacerbated with physical or emotional exertion. Related Data Home Medications Medication Instructions Recorded Confirmed cyclobenzaprine 10 mg tablet 10 mg PO TID PRN Muscle Pain 10/13/19 10/11/21 ergocalciferol (vitamin D2) 1,250 50,000 unit PO WEEKLY 10/13/19 10/11/21 mcg (50,000 unit) capsule hydrocodone 5 mg-acetaminophen 325 1 tablet PO TID PRN pain 10/13/19 10/11/21 mg tablet hydroxychloroquine 200 mg tablet 200 mg PO DAILY 10/13/19 10/11/21 levothyroxine 50 mcg tablet 50 mcg PO QAM 10/13/19 10/11/21 lisinopril 40 mg tablet 40 mg PO QAM 10/13/19 10/11/21 venlafaxine 225 mg tablet,extended 225 mg PO QAM 10/13/19 10/11/21 release 24 hr pregabalin 300 mg capsule (Lyrica) 300 mg PO BID 05/18/20 10/11/21 Allergies Allergy/AdvReac Type Severity Reaction Status Date / Time adhesive tape Allergy Unknown Rash Verified 11/24/22 20:22 Review of Systems Review of Systems: CONSTITUTIONAL: Denies fever, chills, or sweats. CARDIOVASCULAR: Denies chest pain, palpitations, or edema. RESPIRATORY: Denies cough or dyspnea. GASTROINTESTINAL: Denies abdominal pain, nausea, vomiting, or diarrhea. GENITOURINARY: Denies dysuria or hematuria. SKIN: Denies rash or itching. MUSCULOSKELETAL: Right shoulder pain denies back pain, or myalgia. NEUROLOGIC: Denies headache, numbness, dizziness, or weakness. PSYCHIATRIC: Denies anxiety or depression. [facility] Past Medical History Medical History Breast cancer Depression GERD (gastroesophageal reflux disease) History of blood transfusion HTN (hypertension) Lupus (systemic lupus erythematosus) Sepsis Thyroid disease Surgical History Surgical History H/O mastectomy H/O: hysterectomy History of appendectomy History of carpal tunnel release History of cholecystectomy History of knee replacement Port-A-Cath in place S/P bilateral breast implants S/P cervical spinal fusion S/P shoulder surgery S/P trigger finger release Family History Family History Other Family history of malignant neoplasm Hypertension Social History Social History Smoking status: Never smoker Smokeless tobacco user: chewing tobacco Second hand tobacco smoke exposure: No Additional smoking assessment comments: chewed tobacco occassionally as a teen Alcohol intake: never Substance use: never Substance use type: does not use Living arrangements: with family Gender identity (if verbalized by the patient): Female Spiritual care concerns: No Exam Narrative: GENERAL: Well-appearing, well-nourished, and in no acute distress. HEAD: Normocephalic, atraumatic. EYES: PERRLA and EOMI. NECK: Supple. No adenopathy or masses. No carotid bruits or JVD CHEST: Clear to auscultation. No respiratory distress. No wheezes rales or rhonchi HEART: Regular rate and rhythm. No murmur heard. Normal peripheral pulses. ABDOMEN: Soft, nontender, nondistended, normal active bowel sounds. EXTREMITIES: Tender to palpation over the anterior aspect of the right shoulder, at the insertion of pectoral muscles and biceps. Tenderness exacerbated with flexion of the right arm at the elbow against resistance. Coke can test positive. Range of motion of the
[2022-11-24] MEDS: oxyCODONE HCL (*CRX) 5 MG TAB IR PO (20:53)
[2022-11-24] MEDS: LIDOCAINE 5% PATCH 1 PATCH TRANSDERM (21:30)
[2022-11-24 21:40] VITALS: BP 130/82; PULSE 85; RESP 16; O2SAT 100
== END 2022-11-24 21:40 | disposition home or self-care (01) ==
PROVIDERS: Emergency Provider Preventive Medicine Aerospace Medicine; PCP Internal Medicine Infectious Disease
DX: M25.511 Pain in right shoulder (principal); I10 Essential (primary) hypertension; M32.9 Systemic lupus erythematosus, unspecified; E07.9 Disorder of thyroid, unspecified; F32.A Depression, unspecified; Z85.3 Personal history of malignant neoplasm of breast; K21.9 Gastro-esophageal reflux disease without esophagitis; Z98.1 Arthrodesis status
CPT/HCPCS: 73030; 99283; A9270

== ENCOUNTER 2023-01-22 15:23 | Emergency (ER) | payer OTHER, SELFPAY ==
--- NOTE | ~2023-01-22 | CT_ITS ---
EXAMINATION: CT abdomen pelvis w con DATE: 01/22/2023 22:40 INDICATION: Abdominal pain TECHNIQUE: Computed tomography (CT) of the abdomen and pelvis was performed with 100 mL Omnipaque-350 intravenous contrast. Automated exposure control and iterative reconstruction technique were employe d. The dose-length product was 967.91 mGy-cm. COMPARISON: 06/13/2022. FINDINGS: Lower thorax: Bilateral breast implants. Right axillary scar. Stable lymph node along the lateral mar gin of the right breast implant. Liver: Normal. Biliary/Gallbladder: Gallbladder is absent. No bile duct dilation. Pancreas: No mass or duct dilation. Spleen: Normal. Adrenals:No mass. Kidneys: No mass, stone, or hydronephrosis. GI tract: Mild distal esophageal and gastric wall edema No small or large bowel dilation. Appendix no t visualized. No inflammatory change in the right lower quadrant. Mesentery/Peritoneum: No ascites, mass, or free air. Retroperitoneum: No mass. Atherosclerotic abdominal aortic and/or arterial calcifications. Pelvis: Mild wall thickening in a partially distended urinary bladder. Absent uterus. Trace free pelv ic fluid. Soft Tissues: Small uncomplicated umbilical hernia. Lower abdominal scar. Bones: No acute osseous finding. IMPRESSION: Esophagitis/gastritis. Cystitis versus incomplete bladder distention. Reviewed, dictated and finalized at location K.
[2023-01-22 15:35] VITALS: BP 138/95; PULSE 71; RESP 18; TEMP 36.5; O2SAT 99
[2023-01-22 15:53] LABS: Basophils Absolute Auto 0.1 K/mm3 (0.0-0.1); Basophils Percent Auto 0.8 % (0.2-1.2); Eosinophils Absolute Auto 0.2 K/mm3 (0-0.3); Eosinophils Percent Auto 2.5 % (0-4.4); Hematocrit 40.9 % (37.0-47.0); Immature Granulocyte Absolute 0.01 K/mm3 (0.00-0.031); Immature Granulocyte Percent A 0.2 % (0-0.5); Lymphocytes Absolute Auto 2.29 K/mm3 (0.9-3.2); Lymphocytes Percent Auto 38.2 % (18.3-44.2); Mean Corpuscular HGB Conc 31.8 g/dl (32-36); Mean Corpuscular Hemoglobin 26.1 pg (26-34); Mean Corpuscular Volume 82.1 fl (80-100); Mean Platelet Volume 8.5 fl (7.4-10.4); Monocytes Absolute Auto 0.5 K/mm3 (0.1-0.6); Monocytes Percent Auto 8.3 % (2.6-8.5); Platelet Count Result 317 k/mm3 (150-375); Red Blood Count 4.98 M/mm3 (4.2-5.4); Red Cell Distribution Width 16.6 % (11.5-14.5)
[2023-01-22 15:59] LABS: Appearance Urine Cloudy (Clear); Bacteria Urine Rare /hpf; Bilirubin Urine Negative (Negative); Blood Urine Negative (Negative); Color Urine Dark Yellow (Yellow); Glucose Urine UA Negative (Negative); Ketones Urine Trace mg/dL (Negative); Leukocyte Esterase Ur 3+ LEU/UL (Negative); Nitrate Urine Negative (Negative); Non Pathogenic Casts 0-2; Protein Urine Negative (Negative); RBC Urine 0-2 /hpf (0-2); Specific Grav Ur 1.015 (1.001-1.035); Squamous Epithelial Cell Urine Many /hpf (Few); Urobilinogen Urine 0.2 mg/dL (<2.0); WBC Urine 51-100 /hpf; pH Urine 6.5 (5.0-9.0)
[2023-01-22 16:00] LABS: Alanine Aminotransferase 31 U/L (6-35); Albumin Level 4.7 g/dL (3.5-5.1); Alkaline Phosphatase 78 U/L (38-126); Anion Gap 8 mmol/L (8-16); Aspartate Amino Transferase 30 U/L (14-36); Bilirubin,Total 0.5 mg/dL (0.2-1.3); Blood Urea Nitrogen 12 mg/dL (7-17); Calcium 9.3 mg/dL (8.4-10.2); Carbon Dioxide 27 mmol/L (22-30); Chloride 103 mmol/L (98-107); Estimated CRCL calculation 82 ml/min; Estimated Glomerular Filt Rate > 60; Glucose 96 mg/dL (65-110); Lipase 104 U/L (23-300); Potassium 4.5 mmol/L (3.4-5.0); Sodium 138 mmol/L (137-145)
[2023-01-22 16:23] LABS: Add Urine Microscopic? YES
[2023-01-22 20:27] VITALS: BP 161/87; PULSE 70; RESP 19; TEMP 36.7; O2SAT 98
[2023-01-22 20:28] VITALS: PULSE 71; RESP 19; O2SAT 97
[2023-01-22 21:16] VITALS: BP 145/72; PULSE 77; RESP 23; O2SAT 98
--- NOTE | 2023-01-22 21:58 | ED.GENADULT ---
HPI - General Adult General Chief complaint: Abdominal Pain Stated complaint: abd pain Time Seen by Provider: 01/22/23 20:21 History of Present Illness HPI narrative: This is a 52-year-old female presenting ED with a chief complaint of abdominal pain. Patient states that she has been having crampy abdominal pain in center of her stomach for 3 days. Is nonradiating, 9 out 10 intensity and getting worse. She has never experienced pain like this and there are no exacerbating or alleviating factors. Is associated with nausea and she reports a fever of 101 2 days ago. Last bowel movement was earlier today today and was diarrhea, non-bloody. Patient denies dysuria but does have increased urinary urgency and frequency. She also has some right-sided flank pain x 1 week. Related Data Home Medications Medication Instructions Recorded Confirmed cyclobenzaprine 10 mg tablet 10 mg PO TID PRN Muscle Pain 10/13/19 10/11/21 ergocalciferol (vitamin D2) 1,250 50,000 unit PO WEEKLY 10/13/19 10/11/21 mcg (50,000 unit) capsule hydrocodone 5 mg-acetaminophen 325 1 tablet PO TID PRN pain 10/13/19 10/11/21 mg tablet hydroxychloroquine 200 mg tablet 200 mg PO DAILY 10/13/19 10/11/21 levothyroxine 50 mcg tablet 50 mcg PO QAM 10/13/19 10/11/21 lisinopril 40 mg tablet 40 mg PO QAM 10/13/19 10/11/21 venlafaxine 225 mg tablet,extended 225 mg PO QAM 10/13/19 10/11/21 release 24 hr pregabalin 300 mg capsule (Lyrica) 300 mg PO BID 05/18/20 10/11/21 Allergies Allergy/AdvReac Type Severity Reaction Status Date / Time adhesive tape Allergy Unknown Rash Verified 01/22/23 20:41 [facility] Past Medical History Medical History Breast cancer Depression GERD (gastroesophageal reflux disease) History of blood transfusion HTN (hypertension) Lupus (systemic lupus erythematosus) Sepsis Thyroid disease Surgical History Surgical History H/O mastectomy H/O: hysterectomy History of appendectomy History of carpal tunnel release History of cholecystectomy History of knee replacement Port-A-Cath in place S/P bilateral breast implants S/P cervical spinal fusion S/P shoulder surgery S/P trigger finger release Family History Family History Other Family history of malignant neoplasm Hypertension Social History Social History Smoking status: Never smoker Smokeless tobacco user: chewing tobacco Second hand tobacco smoke exposure: No Additional smoking assessment comments: chewed tobacco occassionally as a teen Alcohol intake: never Substance use: never Substance use type: does not use Living arrangements: with family Gender identity (if verbalized by the patient): Female Spiritual care concerns: No Exam Narrative: APPEARANCE: No apparent distress. Head: atraumatic. EYES: EOMI, NOSE: Atraumatic NECK: Trachea midline RESPIRATORY: No increased rate of breathing, CTA be CARDIOVASCULAR: RRR, No peripheral edema ABDOMINAL: Abdomen is diffusely tender with no guarding or rebound. Right CVA tenderness. MUSCULOSKELETAl: No obvious deformities NEURO: Alert. Moving 4/4 extremities SKIN:: Warm, dry. Normal color PSYCHIATRIC: Normal affect Course Vital Signs Vital signs: Vital Signs Temperature 97.7 F 01/22/23 15:35 Pulse Rate 71 01/22/23 15:35 Respiratory Rate 18 01/22/23 15:35 Blood Pressure 138/95 H 01/22/23 15:35 Pulse Oximetry 99 01/22/23 15:35 Temperature 98.1 F 01/22/23 20:27 Pulse Rate 77 01/22/23 21:16 Respiratory Rate 23 H 01/22/23 21:16 Blood Pressure 145/72 H 01/22/23 21:16 Pulse Oximetry 98 01/22/23 21:16 Medical Decision Making MDM Narrative Medical decision making narrative: -Presentation: 52-year-old female presenting with abdominal pain
[2023-01-22] MEDS: SODIUM CHLORIDE 0.9% IV 2,000 ML 999 ML IV CONT (22:24)
[2023-01-22] MEDS: KETOROLAC 15 MG/ML VIAL (*BKC) IV PUSH (22:26)
[2023-01-22] MEDS: FAMOTIDINE 20 MG/2 ML VIAL IV PUSH (23:08)
[2023-01-22] MEDS: HYDROcodone/acetaminophen (*CRX) 5-325 MG TABLET 1 TAB PO (23:08)
[2023-01-22] MEDS: ONDANSETRON INJ 4 MG/2 ML VIAL IV PUSH (23:08)
[2023-01-23 00:42] VITALS: BP 138/70; PULSE 78; RESP 15; O2SAT 100
== END 2023-01-23 | disposition home or self-care (01) ==
PROVIDERS: Emergency Medicine; Emergency Provider Emergency Medicine; PCP Internal Medicine Infectious Disease
DX: N39.0 Urinary tract infection, site not specified (principal); K29.70 Gastritis, unspecified, without bleeding; G89.29 Other chronic pain; F32.A Depression, unspecified; K21.9 Gastro-esophageal reflux disease without esophagitis; I10 Essential (primary) hypertension; M32.9 Systemic lupus erythematosus, unspecified; Z85.3 Personal history of malignant neoplasm of breast
CPT/HCPCS: 36415; 74177; 80053; 81001; 83690; 85025; 87077; 87086; 87088; 96365; 96366; 96375; 99284; A9270; J0131; J0696; J1885; J2405; J7030; Q9967

== ENCOUNTER 2023-02-22 23:40 | Emergency (ER) | payer OTHER, SELFPAY ==
[2023-02-22 23:44] VITALS: BP 119/78; PULSE 83; RESP 14; TEMP 36.6; O2SAT 95
--- NOTE | 2023-02-22 23:49 | PC.NURSE ---
upon completion of pt. triage. pt. states I don't want to wait all day, I think I'm going to go home PT. ambulated out of ed w/ steady gait. no signs of distress.
== END 2023-02-22 23:49 | disposition left against medical advice (07) ==
PROVIDERS: PCP Internal Medicine Infectious Disease
DX: R10.31 Right lower quadrant pain (principal)
CPT/HCPCS: 99199

== ENCOUNTER 2023-03-09 20:49 | Emergency (ER) | payer OTHER, SELFPAY ==
[2023-03-09] VITALS (10 sets, daily range): BP systolic 146–152; BP diastolic 93–94; PULSE 86; RESP 15; TEMP 36.6; O2SAT 79–100
--- NOTE | ~2023-03-09 | CT_ITS ---
EXAMINATION: CT abdomen pelvis w con DATE: 03/09/2023 22:06 INDICATION: abdominal pain TECHNIQUE: Computed tomography (CT) of the abdomen and pelvis was performed with 100 mL Omnipaque-350 intravenous contrast. Automated exposure control and iterative reconstruction technique were employe d. The dose-length product was 1325.27 mGy-cm. COMPARISON: 01/22/2023. FINDINGS: Lower thorax: Bilateral breast augmentation. Mild peripheral groundglass and reticular opacities. Liver: Normal. Biliary/Gallbladder: Gallbladder is absent. No bile duct dilation. Pancreas: No mass or duct dilation. Spleen: Granulomatous calcifications. Adrenals:No mass. Kidneys: Subcentimeter right midpole hypodensity, too small to characterize but most likely represent s a cyst. No mass, stone, or hydronephrosis. GI tract: Small hiatal hernia. Mild distal esophageal and gastric wall edema No small or large bowel dilation. The appendix is not visualized. Mesentery/Peritoneum: No ascites, mass, or free air. Retroperitoneum: No mass. Atherosclerotic abdominal aortic and/or arterial calcifications. Pelvis: Absent uterus. Mild bladder wall thickening in a partially distended urinary bladder.. Soft Tissues: Small fat-containing uncomplicated umbilical hernia. Diffuse abdominal subcutaneous str anding/scar. Bones: No acute osseous finding. IMPRESSION: Mild/early changes of pneumonitis/fibrosis in the lower lungs, may represent a UIP pattern of disease . Mild esophagitis/gastritis. Cystitis versus incomplete bladder distention. Reviewed, dictated and finalized at location K. IMPRESSION: Mild/early changes of pneumonitis/fibrosis in the lower lungs, may represent a UIP pattern of disease. Mild esophagitis/gastritis. Cystitis versus incomplete bladder distention.
--- NOTE | ~2023-03-09 | CT_ITS ---
EXAMINATION: CT brain wo con DATE: 03/09/2023 21:53 INDICATION: headache . TECHNIQUE: Computed tomography (CT) of the head was performed without intravenous contrast. The mA wa s adjusted according to patient size. Iterative reconstruction technique was employed. The dose-lengt h product was 605.33 mGy-cm. COMPARISON: 08/05/2019. FINDINGS: No acute intracranial hemorrhage or extra-axial fluid collection. No hydrocephalus, mass, or herniation. No acute ischemic infarct. Unremarkable dural venous sinus attenuation. No acute osseous abnormality. The aerated spaces are clear. IMPRESSION: No acute intracranial process. Reviewed, dictated and finalized at location K.
[2023-03-09 21:24] LABS: Add Urine Microscopic? YES; Appearance Urine Clear (Clear); Bacteria Urine None Seen /hpf; Bilirubin Urine Negative (Negative); Blood Urine Negative (Negative); Color Urine Yellow (Yellow); Glucose Urine UA Negative (Negative); Ketones Urine Negative (Negative); Leukocyte Esterase Ur Trace LEU/UL (Negative); Need Manual Microscopic Reviewed; Nitrate Urine Negative (Negative); Non Pathogenic Casts 0-2; Protein Urine Negative (Negative); RBC Urine 0-2 /hpf (0-2); Specific Grav Ur 1.005 (1.001-1.035); Squamous Epithelial Cell Urine Few /hpf (Few); Urobilinogen Urine 0.2 mg/dL (<2.0); WBC Urine 0-5 /hpf
[2023-03-09 21:31] LABS: Basophils Absolute Auto 0.1 K/mm3 (0.0-0.1); Basophils Percent Auto 0.8 % (0.2-1.2); Eosinophils Absolute Auto 0.3 K/mm3 (0-0.3); Eosinophils Percent Auto 4.4 % (0-4.4); Hematocrit 39.3 % (37.0-47.0); Hemoglobin 12.4 g/dL (12.0-15.0); Immature Granulocyte Absolute 0.01 K/mm3 (0.00-0.031); Immature Granulocyte Percent A 0.2 % (0-0.5); Lymphocytes Absolute Auto 2.25 K/mm3 (0.9-3.2); Lymphocytes Percent Auto 35.7 % (18.3-44.2); Mean Corpuscular HGB Conc 31.6 g/dl (32-36); Mean Corpuscular Hemoglobin 26.3 pg (26-34); Mean Corpuscular Volume 83.4 fl (80-100); Mean Platelet Volume 8.7 fl (7.4-10.4); Monocytes Absolute Auto 0.5 K/mm3 (0.1-0.6); Monocytes Percent Auto 7.8 % (2.6-8.5); Neutrophils Absolute Auto 3.2 K/mm3 (1.3-6.7); Neutrophils Percent Auto 51.1 % (45.5-73.1); Platelet Count Result 366 k/mm3 (150-375); Red Blood Count 4.71 M/mm3 (4.2-5.4); Red Cell Distribution Width 15.8 % (11.5-14.5); White Blood Count 6.3 K/mm3 (4.5-10.0)
--- NOTE | 2023-03-09 21:34 | ED.GENADULT ---
HPI - General Adult General Chief complaint: Nausea/Vomiting/Diarrhea Stated complaint: vomiting, sweaty, lower back pain Time Seen by Provider: 03/09/23 21:13 History of Present Illness HPI narrative: Patient 52-year-old female who presents the emergency department with chief complaint of headache nausea vomiting and abdominal pain. Patient reports that she recently had a liposuction procedure to provide material for a reconstructive breast procedure patient states that she has been having a headache for several days reports that she also has been getting nauseated with this patient reports that she had a low-grade fever today that resolved with Tylenol patient denies nuchal rigidity and denies photophobia. Patient reports that she has not had any diarrhea but does report that she has diffuse discomfort throughout her abdomen. Related Data Home Medications Medication Instructions Recorded Confirmed cyclobenzaprine 10 mg tablet 10 mg PO TID PRN Muscle Pain 10/13/19 02/13/23 ergocalciferol (vitamin D2) 1,250 50,000 unit PO WEEKLY 10/13/19 02/13/23 mcg (50,000 unit) capsule hydrocodone 5 mg-acetaminophen 325 1 tablet PO TID PRN pain 10/13/19 02/13/23 mg tablet hydroxychloroquine 200 mg tablet 200 mg PO DAILY 10/13/19 02/13/23 levothyroxine 50 mcg tablet 50 mcg PO QAM 10/13/19 02/13/23 lisinopril 40 mg tablet 40 mg PO QAM 10/13/19 02/13/23 venlafaxine 225 mg tablet,extended 225 mg PO QAM 10/13/19 02/13/23 release 24 hr pregabalin 300 mg capsule (Lyrica) 300 mg PO BID 05/18/20 02/13/23 Allergies Allergy/AdvReac Type Severity Reaction Status Date / Time adhesive tape Allergy Unknown Rash Verified 03/09/23 20:49 Review of Systems Review of Systems: A 10 system review of systems was completed on the patient and is negative except for what is stated in the HPI. Nursing and ancillary documentation was reviewed. [facility] Past Medical History Medical History Breast cancer Depression GERD (gastroesophageal reflux disease) History of blood transfusion HTN (hypertension) Lupus (systemic lupus erythematosus) Sepsis Thyroid disease Surgical History Surgical History H/O mastectomy H/O: hysterectomy History of appendectomy History of carpal tunnel release History of cholecystectomy History of knee replacement Port-A-Cath in place S/P bilateral breast implants S/P cervical spinal fusion S/P shoulder surgery S/P trigger finger release Family History Family History Other Family history of malignant neoplasm Hypertension Social History Social History Smoking status: Never smoker Smokeless tobacco user: chewing tobacco Second hand tobacco smoke exposure: No Additional smoking assessment comments: chewed tobacco occassionally as a teen Alcohol intake: never Substance use: never Substance use type: does not use Living arrangements: with family Gender identity (if verbalized by the patient): Female Spiritual care concerns: No Exam Narrative: GENERAL: Well-appearing, well-nourished, and in no acute distress. HEAD: Normocephalic, atraumatic. EYES: PERRLA and EOMI. ENT: Nares clear, no rhinorrhea or epistaxis. Mucous membranes moist. NECK: Supple. CHEST: Clear to auscultation. No respiratory distress. HEART: Regular rate and rhythm. No murmur heard. Normal peripheral pulses. ABDOMEN: Soft, diffusely tender to palpation, nondistended, normal active bowel sounds. EXTREMITIES: Normal range of motion. No edema. SKIN: Warm, dry, no rash. NEURO: No focal deficits. Alert and oriented x3. PSYCH: Normal mood and affect. Course Vital Signs Vital signs: Vital Signs Temperature 36.6 C 03/09/23 20:50 Pulse Rate 86 03/09/23 20:50 Resp
[2023-03-09 21:43] LABS: Alanine Aminotransferase 30 U/L (6-35); Albumin Level 4.5 g/dL (3.5-5.1); Alkaline Phosphatase 78 U/L (38-126); Anion Gap 9 mmol/L (8-16); Aspartate Amino Transferase 44 U/L (14-36); Bilirubin,Total 0.7 mg/dL (0.2-1.3); Blood Urea Nitrogen 13 mg/dL (7-17); Calcium 9.8 mg/dL (8.4-10.2); Carbon Dioxide 28 mmol/L (22-30); Chloride 106 mmol/L (98-107); Estimated CRCL calculation 75 ml/min; Estimated Glomerular Filt Rate > 60; Glucose 114 mg/dL (65-110); Lipase 116 U/L (23-300); Magnesium 2.1 mg/dL (1.6-2.3); Potassium 3.9 mmol/L (3.4-5.0); Sodium 143 mmol/L (137-145)
[2023-03-09] MEDS: diphenhydrAMINE HCl INJ 50 MG/ML VIAL IV PUSH (22:14)
[2023-03-09] MEDS: PROCHLORPERAZINE EDISYLATE 10 MG/2 ML VIAL IV PUSH (22:14)
[2023-03-09] MEDS: SODIUM CHLORIDE 0.9% IV 1,000 ML 999 ML IV CONT (22:14)
--- NOTE | 2023-03-09 23:05 | PC.NURSE ---
This RN assumed care of patient.
[2023-03-10 00:27] LABS: Reflex Lactic Acid Yes or No Add Lactic
== END 2023-03-09 23:36 | disposition home or self-care (01) ==
PROVIDERS: Emergency Medicine; Emergency Provider Emergency Medicine; PCP Internal Medicine Infectious Disease
DX: R11.2 Nausea with vomiting, unspecified (principal); R51.9 Headache, unspecified; R10.9 Unspecified abdominal pain; K21.9 Gastro-esophageal reflux disease without esophagitis; F32.A Depression, unspecified; I10 Essential (primary) hypertension; M32.9 Systemic lupus erythematosus, unspecified; E07.9 Disorder of thyroid, unspecified; Z85.3 Personal history of malignant neoplasm of breast; Z90.13 Acquired absence of bilateral breasts and nipples; Z90.710 Acquired absence of both cervix and uterus; Z96.659 Presence of unspecified artificial knee joint; Z90.49 Acquired absence of other specified parts of digestive tract; Z98.1 Arthrodesis status
CPT/HCPCS: 36415; 70450; 74177; 80053; 81001; 83605; 83690; 83735; 85025; 85055; 96361; 96374; 96375; 99284; J0780; J1200; J7030; Q9967

== ENCOUNTER 2023-03-17 13:42 | Outpatient (CLI) | payer OTHER, SELFPAY ==
--- NOTE | ~2023-03-17 | MR_ITS ---
EXAMINATION: MR lumbar spine wo con DATE: 03/17/2023 14:21 INDICATION: Spinal stenosis with neurogenic claudication. Low back pain. Bilateral sciatica. TECHNIQUE: Magnetic resonance imaging (MRI) of the lumbar spine was performed without intravenous con trast. Sequences included sagittal T2-weighted FSE, sagittal T2-weighted FS FSE, sagittal T1-weighted FSE, and axial T2-weighted FSE. COMPARISON: Lumbar spine MRI 07/25/2016 FINDINGS: Bone alignment is normal. There is mild chronic anterior wedging of T12 vertebral body. The re is mildly decreased disc height at L2-L3. The distal spinal cord signal intensity is normal. The c onus medullaris is at T12-L1. The following disc levels are specifically discussed: L1-L2: The disc does not extend beyond the endplate margin. There is severe right and moderate left f acet joint osteoarthritis. There is no neural foraminal stenosis. There is no central canal stenosis. L2-L3: The disc is bulging. There is severe bilateral facet joint osteoarthritis. There is mild bilat eral neural foraminal stenosis. There is mild central canal stenosis. L3-L4: The disc is bulging. There is severe bilateral facet joint osteoarthritis. There is mild bilat eral neural foraminal stenosis. There is mild central canal stenosis. L4-L5: The disc is bulging. There is severe bilateral facet joint osteoarthritis. There is mild bilat eral neural foraminal stenosis. There is no central canal stenosis. L5-S1: The disc is bulging. There is severe bilateral facet joint osteoarthritis. There is mild bilat eral neural foraminal stenosis. There is mild central canal stenosis. IMPRESSION: 1. Mild lumbar spondylosis, slightly worsened from 07/25/2016. Reviewed, dictated and finalized at location E.
== END 2023-03-17 13:43 | disposition home or self-care (01) ==
PROVIDERS: PCP Internal Medicine Infectious Disease; Visit Provider Nurse Practitioner Adult Health
DX: M48.062 Spinal stenosis, lumbar region with neurogenic claudication (principal); M47.896 Other spondylosis, lumbar region
CPT/HCPCS: 72148

== ENCOUNTER 2023-04-18 13:55 | Emergency (ER) | payer OTHER, SELFPAY ==
--- NOTE | ~2023-04-18 | XR_ITS ---
EXAMINATION: XR chest 2V DATE: 04/18/2023 14:16 INDICATION: Cough TECHNIQUE: Frontal and lateral views of the chest are obtained COMPARISON: 06/13/2022 FINDINGS: The lungs are free of acute opacities. No pleural effusion or pneumothorax. The cardiomedia stinal silhouette is normal. There is mild thoracic spondylosis. A right internal jugular Port-A-Cath has been removed. There are changes of left shoulder arthroplasty. Surgical clips in the right upper quadrant are likely from prior cholecystectomy. IMPRESSION: 1. No acute cardiopulmonary abnormality. Reviewed, dictated and finalized at location B.
[2023-04-18 14:02] VITALS: BP 129/77; PULSE 62; RESP 12; TEMP 36.6
--- NOTE | 2023-04-18 14:13 | PC.NURSE ---
pt to XRAY via wheelchair at this time
[2023-04-18 14:51] LABS: Influenza A QL RT-PCR Negative (Negative); Influenza B QL RT-PCR Negative (Negative); RSV RNA, RT-PCR Negative (Negative); SARS-CoV-2 RNA PCR Positive (Negative)
--- NOTE | 2023-04-18 15:01 | ED.URI ---
HPI - URI/Sore Throat General Chief Complaint: Upper Respiratory Infection Stated Complaint: Cough, Rib pain, SOB Time Seen by Provider: 04/18/23 14:03 History of Present Illness HPI Narrative: 53-year-old female history of depression, GERD, breast cancer, hypertension, lupus and thyroid disease presents to the emergency room for evaluation of cough, chest discomfort, shortness of breath and body aches. Patient states that she has been taking NSAIDs and her oxycodone for symptoms with little relief. Related Data Home Medications Medication Instructions Recorded Confirmed cyclobenzaprine 10 mg tablet 10 mg PO TID PRN Muscle Pain 10/13/19 02/13/23 ergocalciferol (vitamin D2) 1,250 50,000 unit PO WEEKLY 10/13/19 02/13/23 mcg (50,000 unit) capsule hydrocodone 5 mg-acetaminophen 325 1 tablet PO TID PRN pain 10/13/19 02/13/23 mg tablet hydroxychloroquine 200 mg tablet 200 mg PO DAILY 10/13/19 02/13/23 levothyroxine 50 mcg tablet 50 mcg PO QAM 10/13/19 02/13/23 lisinopril 40 mg tablet 40 mg PO QAM 10/13/19 02/13/23 venlafaxine 225 mg tablet,extended 225 mg PO QAM 10/13/19 02/13/23 release 24 hr pregabalin 300 mg capsule (Lyrica) 300 mg PO BID 05/18/20 02/13/23 Allergies Allergy/AdvReac Type Severity Reaction Status Date / Time adhesive tape Allergy Unknown Rash Verified 04/18/23 14:08 Review of Systems Review of Systems: CONSTITUTIONAL: Denies fever, chills, or sweats. EYES: Denies visual changes, redness, or discharge. ENT: Denies rhinorrhea, congestion, sore throat, or otalgia. CARDIOVASCULAR: Denies chest pain, palpitations, or edema. RESPIRATORY: Denies cough or dyspnea. GASTROINTESTINAL: Denies abdominal pain, nausea, vomiting, or diarrhea. GENITOURINARY: Denies dysuria or hematuria. SKIN: Denies rash or itching. MUSCULOSKELETAL: Reports myalgias NEUROLOGIC: Denies headache, numbness, dizziness, or weakness. PSYCHIATRIC: Denies anxiety or depression. [facility] Past Medical History Medical History Breast cancer Depression GERD (gastroesophageal reflux disease) History of blood transfusion HTN (hypertension) Lupus (systemic lupus erythematosus) Sepsis Thyroid disease Surgical History Surgical History H/O mastectomy H/O: hysterectomy History of appendectomy History of carpal tunnel release History of cholecystectomy History of knee replacement Port-A-Cath in place S/P bilateral breast implants S/P cervical spinal fusion S/P shoulder surgery S/P trigger finger release Family History Family History Other Family history of malignant neoplasm Hypertension Social History Social History Smoking status: Never smoker Smokeless tobacco user: chewing tobacco Second hand tobacco smoke exposure: No Additional smoking assessment comments: chewed tobacco occassionally as a teen Alcohol intake: never Substance use: never Substance use type: does not use Living arrangements: with family Gender identity (if verbalized by the patient): Female Spiritual care concerns: No Exam Narrative: GENERAL: ill-appearing, well-nourished, no physical limitations, and in no acute distress. HEAD: Normocephalic, atraumatic. EYES: Conjunctivae normal, PERRLA and EOMI. CHEST: Clear to auscultation. No respiratory distress. No wheezes rales or rhonchi. No tenderness. HEART: Regular rate and rhythm. No murmur heard. Normal peripheral pulses. EXTREMITIES: Normal range of motion. No edema. No clubbing or cyanosis SKIN: Warm, dry, no rash. No noted wounds NEURO: No focal deficits. Alert and oriented x3. MAEW. CN's II-XI intact bilaterally, normal gait PSYCH: Cooperative. Normal mood and affect. Course Vital Signs Vital signs: Vital Signs Temperature 36.6 C 04/18/23 14:0
[2023-04-18 15:37] VITALS: BP 152/84; PULSE 88; RESP 16; O2SAT 99
== END 2023-04-18 15:38 | disposition home or self-care (01) ==
LOC: ANHED 15:10
PROVIDERS: Emergency Provider Nurse Practitioner Family; PCP Internal Medicine Infectious Disease
DX: U07.1 COVID-19 (principal); I10 Essential (primary) hypertension; E07.9 Disorder of thyroid, unspecified; K21.9 Gastro-esophageal reflux disease without esophagitis; F32.A Depression, unspecified; Z85.3 Personal history of malignant neoplasm of breast; M32.9 Systemic lupus erythematosus, unspecified; F17.220 Nicotine dependence, chewing tobacco, uncomplicated; Z96.659 Presence of unspecified artificial knee joint; Z90.10 Acquired absence of unspecified breast and nipple; Z90.710 Acquired absence of both cervix and uterus; Z90.49 Acquired absence of other specified parts of digestive tract; Z98.1 Arthrodesis status
CPT/HCPCS: 71046; 87637; 99283

== ENCOUNTER 2023-06-18 12:50 | Emergency (ER) | payer OTHER, SELFPAY ==
[2023-06-18] VITALS (27 sets, daily range): BP systolic 98–146; BP diastolic 49–89; PULSE 71–86; RESP 12–22; TEMP 36.6; O2SAT 92–100
--- NOTE | ~2023-06-18 | CT_ITS ---
EXAMINATION: CT brain w con DATE: 06/18/2023 16:18 INDICATION: Seizure TECHNIQUE: Computed tomography (CT) of the head was performed with 100 CC Omnipaque 350 intravenous c ontrast. The mA was adjusted according to patient size. Iterative reconstruction technique was employ ed. Exam dose: 605.33 mGy-cm total exam DLP. COMPARISON: 03/09/2023 CT brain FINDINGS: No intracranial mass lesion or hemorrhage or cerebrovascular accident is detected. No midli ne shift or mass effect. Normal ventricular size. No subdural or epidural hematoma. The mastoid air cells and included paranasal sinuses are normally developed and aerated. No fracture or bone destruction of the cranial vault. There are some chronic ossicles at the superior aspect of the odontoid process of C2, also present on 03/09/2023, corticated. IMPRESSION: No significant intracranial abnormality Reviewed, dictated and finalized at [facility]. Reviewed, dictated and finalized at location [facility].
--- NOTE | ~2023-06-18 | XR_ITS ---
EXAMINATION: XR ribs LT 2V w CXR 2V DATE: 06/18/2023 15:56 INDICATION: Left rib pain. TECHNIQUE: Frontal and lateral views of the chest and 2 views on 3 radiographs of the left ribs were obtained. COMPARISON: Chest 2 views 04/18/2023 FINDINGS: CHEST TWO VIEWS: The lung volumes are small. A calcified left lung nodule and calcified left hilar an d mediastinal lymph nodes are consistent with old granulomatous disease. No pleural effusion or pneum othorax. The heart size is normal. There is a disc replacement in cervical spine. There is a left fredo ulder arthroplasty. Surgical clips in the right upper quadrant are likely from cholecystectomy. LEFT RIBS: There is no rib fracture. IMPRESSION: 1. No rib fracture. Reviewed, dictated and finalized at location [facility]. IMPRESSION: 1. No rib fracture.
--- NOTE | ~2023-06-18 | CT_ITS ---
EXAMINATION: CT abdomen pelvis w con DATE: 06/18/2023 16:17 INDICATION: Epigastric and suprapubic pain. Diarrhea. TECHNIQUE: Computed tomography (CT) of the abdomen and pelvis was performed with 100 mL Omnipaque 350 intravenous contrast. Automated exposure control and iterative reconstruction technique were employe d. The dose-length product was 886.26 mGy-cm. COMPARISON: CT abdomen and pelvis 03/09/2023 FINDINGS: The visualized portions of the lung bases demonstrate mild atelectasis and mild chronic gideon g disease. No pleural effusion. The heart size is normal. No pericardial effusion. There are bilatera l breast implants. The liver is normal. There are changes of cholecystectomy. Calcifications in the s pleen are consistent with old granulomatous disease. The pancreas, adrenal glands, and kidneys are no rmal. There are no dilated loops of bowel. The appendix is not visualized. Aortic atherosclerosis is noted. There are no pathologically enlarged lymph nodes. There is no free intraperitoneal fluid. Ther e is chronic subcutaneous fat stranding in the anterior abdomen which may be changes of abdominoplast y. There is mild thoracic and lumbar spondylosis. IMPRESSION: 1. No specific etiology for the patient's symptoms. 2. Stable mild chronic lung disease. Reviewed, dictated and finalized at location [facility].
--- NOTE | 2023-06-18 13:08 | ECG_ITS ---
Measurements Intervals Adams Rate: 74 P: 55 WY: 177 QRS: -10 QRSD: 98 T: 66 QT: 392 QTc: 436 Interpretive Statements SINUS RHYTHM POSSIBLE LEFT ATRIAL ENLARGEMENT [-0.1mV P-WAVE IN V1/V2] POSSIBLE LEFT VENTRICULAR HYPERTROPHY [VOLTAGE CRITERIA PLUS LAE OR QRS WIDENING] NONSPECIFIC T-WAVE ABNORMALITY ABNORMAL ECG COMPARED TO ECG 01/06/2022 17:18:03 T-WAVE ABNORMALITY NOW PRESENT Electronically Signed On 06-18-2023 17:08:57 CDT by Arden Dove M.D.
[2023-06-18 13:38] LABS: Appearance Urine Cloudy (Clear); Bacteria Urine None Seen /hpf; Bilirubin Urine 1+ (Negative); Blood Urine Negative (Negative); Color Urine Dark Yellow (Yellow); Glucose Urine UA Negative (Negative); Ketones Urine Trace mg/dL (Negative); Leukocyte Esterase Ur 1+ LEU/UL (Negative); Nitrate Urine Negative (Negative); Protein Urine Trace mg/dL (Negative); Specific Grav Ur 1.032 (1.001-1.035); Squamous Epithelial Cell Urine Many /hpf (Few); Urobilinogen Urine 0.2 mg/dL (<2.0); pH Urine 5.5 (5.0-9.0)
[2023-06-18 14:15] LABS: Add Urine Microscopic? YES
--- NOTE | 2023-06-18 15:26 | ED.ABDPAIN ---
HPI - Abdominal Pain General Chief Complaint: Abdominal Pain <Sheri Cortez PA-C - Last Filed: 06/18/23 16:21> Stated Complaint: abd pain <Sheri Cortez PA-C - Last Filed: 06/18/23 16:21> Time Seen by Provider: 06/18/23 15:12 <Sheri Cortez PA-C - Last Filed: 06/18/23 16:21> History of Present Illness HPI narrative: 53 y/o female with a history of left-sided breast cancer, GERD, hypertension, s/p cholecystectomy reports for evaluation for intermittent epigastric and suprapubic abdominal pain x1 month. Patient states the abdominal pain is worse with movement and after eating. She reports associated nausea and 3 episodes of diarrhea daily as well as urinary frequency. She is also reporting pain to her left chest wall in her mid axillary line for the past 2 days. Denies recent injury or trauma. She also is complaining of a knot to her right lower extremity. Again denies recent injury or trauma. She denies fever, chest pain or shortness of breath, vomiting, body aches, dysuria, cough or congestion. <Sheri Cortez PA-C - Last Filed: 06/18/23 16:21> Related Data Home Medications: Home Medications Medication Instructions Recorded Confirmed cyclobenzaprine 10 mg tablet 10 mg PO TID PRN Muscle Pain 10/13/19 02/13/23 ergocalciferol (vitamin D2) 1,250 50,000 unit PO WEEKLY 10/13/19 02/13/23 mcg (50,000 unit) capsule hydrocodone 5 mg-acetaminophen 325 1 tablet PO TID PRN pain 10/13/19 02/13/23 mg tablet hydroxychloroquine 200 mg tablet 200 mg PO DAILY 10/13/19 02/13/23 levothyroxine 50 mcg tablet 50 mcg PO QAM 10/13/19 02/13/23 lisinopril 40 mg tablet 40 mg PO QAM 10/13/19 02/13/23 venlafaxine 225 mg tablet,extended 225 mg PO QAM 10/13/19 02/13/23 release 24 hr pregabalin 300 mg capsule (Lyrica) 300 mg PO BID 05/18/20 02/13/23 <Sheri Cortez PA-C - Last Filed: 06/18/23 16:21> Allergies/Adverse Reactions: Allergies Allergy/AdvReac Type Severity Reaction Status Date / Time adhesive tape Allergy Unknown Rash Verified 06/18/23 16:44 <Sheri Cortez PA-C - Last Filed: 06/18/23 16:21> Review of Systems Review of Systems: CONSTITUTIONAL: Denies fever, chills EYES: Denies visual changes, redness, or discharge. ENT: Denies rhinorrhea, congestion, sore throat, or otalgia. CARDIOVASCULAR: See HPI RESPIRATORY: Denies cough or dyspnea. GASTROINTESTINAL: See HPI GENITOURINARY: See HPI SKIN: Denies rash or itching. MUSCULOSKELETAL: See HPI NEUROLOGIC: Denies headache, numbness, dizziness, or weakness. PSYCHIATRIC: Denies anxiety or depression. <Sheri Cortez PA-C - Last Filed: 06/18/23 16:21> [facility] Past Medical History Medical History: Medical History Breast cancer Depression GERD (gastroesophageal reflux disease) History of blood transfusion HTN (hypertension) Lupus (systemic lupus erythematosus) Sepsis Thyroid disease <Sheri Cortez PA-C - Last Filed: 06/18/23 16:21> Surgical History Surgical History: Surgical History H/O mastectomy H/O: hysterectomy History of appendectomy History of carpal tunnel release History of cholecystectomy History of knee replacement Port-A-Cath in place S/P bilateral breast implants S/P cervical spinal fusion S/P shoulder surgery S/P trigger finger release <Sheri Cortez PA-C - Last Filed: 06/18/23 16:21> Family History Family History: Family History Other Family history of malignant neoplasm Hypertension <Sheri Cortez PA-C - Last Filed: 06/18/23 16:21> Social History Social History: Social History Smoking status: Never smoker Smokeless tobacco user: chewing tobacco Second hand tobacco smoke exposure: No Additional smoking assessme
[2023-06-18] MEDS: FAMOTIDINE 20 MG/2 ML VIAL IV PUSH (15:37)
[2023-06-18] MEDS: ONDANSETRON INJ 4 MG/2 ML VIAL IV PUSH (15:37)
[2023-06-18] MEDS: ACETAMINOPHEN 500 MG TABLET 1000 MG PO (15:37)
[2023-06-18 15:52] LABS: Alanine Aminotransferase 24 U/L (6-35); Albumin Level 4.4 g/dL (3.5-5.1); Alkaline Phosphatase 69 U/L (38-126); Anion Gap 7 mmol/L (8-16); Aspartate Amino Transferase 33 U/L (14-36); Basophils Percent Auto 0.7 % (0.2-1.2); Bilirubin,Total 0.5 mg/dL (0.2-1.3); Blood Urea Nitrogen 18 mg/dL (7-17); Calcium 8.9 mg/dL (8.4-10.2); Carbon Dioxide 24 mmol/L (22-30); Chloride 105 mmol/L (98-107); Eosinophils Absolute Auto 0.2 K/mm3 (0-0.3); Estimated CRCL calculation 66 ml/min; Estimated Glomerular Filt Rate > 60; Glucose 94 mg/dL (65-110); Hematocrit 37.2 % (37.0-47.0); Hemoglobin 11.5 g/dL (12.0-15.0); Immature Granulocyte Absolute 0.02 K/mm3 (0.00-0.031); Immature Granulocyte Percent A 0.3 % (0-0.5); Lipase 93 U/L (23-300); Lymphocytes Absolute Auto 2.44 K/mm3 (0.9-3.2); Lymphocytes Percent Auto 40.5 % (18.3-44.2); Mean Corpuscular HGB Conc 30.9 g/dl (32-36); Mean Corpuscular Hemoglobin 25.1 pg (26-34); Mean Corpuscular Volume 81.2 fl (80-100); Mean Platelet Volume 8.5 fl (7.4-10.4); Monocytes Absolute Auto 0.5 K/mm3 (0.1-0.6); Monocytes Percent Auto 8.3 % (2.6-8.5); Neutrophils Absolute Auto 2.9 K/mm3 (1.3-6.7); Neutrophils Percent Auto 47.2 % (45.5-73.1); Platelet Count Result 296 k/mm3 (150-375); Potassium 4.9 mmol/L (3.4-5.0); Red Blood Count 4.58 M/mm3 (4.2-5.4); Red Cell Distribution Width 17.4 % (11.5-14.5); Sodium 136 mmol/L (137-145)
[2023-06-18 15:56] LABS: Magnesium 2.1 mg/dL (1.6-2.3)
[2023-06-18 16:09] LABS: Troponin I < 0.012 ng/mL (0.000-0.034)
--- NOTE | 2023-06-18 16:13 | ED.ABDPAIN ---
HPI - Abdominal Pain General Chief Complaint: Abdominal Pain Stated Complaint: abd pain Time Seen by Provider: 06/18/23 15:12 Related Data Home Medications Medication Instructions Recorded Confirmed cyclobenzaprine 10 mg tablet 10 mg PO TID PRN Muscle Pain 10/13/19 02/13/23 ergocalciferol (vitamin D2) 1,250 50,000 unit PO WEEKLY 10/13/19 02/13/23 mcg (50,000 unit) capsule hydrocodone 5 mg-acetaminophen 325 1 tablet PO TID PRN pain 10/13/19 02/13/23 mg tablet hydroxychloroquine 200 mg tablet 200 mg PO DAILY 10/13/19 02/13/23 levothyroxine 50 mcg tablet 50 mcg PO QAM 10/13/19 02/13/23 lisinopril 40 mg tablet 40 mg PO QAM 10/13/19 02/13/23 venlafaxine 225 mg tablet,extended 225 mg PO QAM 10/13/19 02/13/23 release 24 hr pregabalin 300 mg capsule (Lyrica) 300 mg PO BID 05/18/20 02/13/23 Allergies Allergy/AdvReac Type Severity Reaction Status Date / Time adhesive tape Allergy Unknown Rash Verified 06/18/23 12:51 PMFSH Past Medical History Medical History Breast cancer Depression GERD (gastroesophageal reflux disease) History of blood transfusion HTN (hypertension) Lupus (systemic lupus erythematosus) Sepsis Thyroid disease Surgical History Surgical History H/O mastectomy H/O: hysterectomy History of appendectomy History of carpal tunnel release History of cholecystectomy History of knee replacement Port-A-Cath in place S/P bilateral breast implants S/P cervical spinal fusion S/P shoulder surgery S/P trigger finger release Family History Family History Other Family history of malignant neoplasm Hypertension Social History Social History Smoking status: Never smoker Smokeless tobacco user: chewing tobacco Second hand tobacco smoke exposure: No Additional smoking assessment comments: chewed tobacco occassionally as a teen Alcohol intake: never Substance use: never Substance use type: does not use Living arrangements: with family Gender identity (if verbalized by the patient): Female Spiritual care concerns: No Course Vital Signs Vital signs: Vital Signs Temperature 97.9 F 06/18/23 13:05 Pulse Rate 84 06/18/23 13:05 Respiratory Rate 20 06/18/23 13:05 Blood Pressure 121/88 06/18/23 13:05 Pulse Oximetry 98 06/18/23 13:05 Oxygen Delivery Room Air 06/18/23 13:05 Temperature 97.9 F 06/18/23 13:05 Pulse Rate 78 06/18/23 15:58 Respiratory Rate 13 06/18/23 15:58 Blood Pressure 127/64 06/18/23 15:58 Pulse Oximetry 97 06/18/23 15:58 Oxygen Delivery Room Air 06/18/23 13:05 MDM - Abdominal Pain Lab Data 06/18/23 15:32 06/18/23 15:32 Labs: Lab Results 06/18/23 06/18/23 06/18/23 Range/Units 13:27 15:32 15:32 WBC 6.0 (4.5-10.0) K/mm3 RBC 4.58 (4.2-5.4) M/mm3 Hgb 11.5 L (12.0-15.0) g/dL Hct 37.2 (37.0-47.0) % MCV 81.2 (80-100) fl MCH 25.1 L (26-34) pg MCHC 30.9 L (32-36) g/dl RDW 17.4 H (11.5-14.5) % Plt Count 296 (150-375) k/mm3 MPV 8.5 (7.4-10.4) fl Immature Gran % (Auto) 0.3 (0-0.5) % Neut % (Auto) 47.2 (45.5-73.1) % Lymph % (Auto) 40.5 (18.3-44.2) % [place] % (Auto) 8.3 (2.6-8.5) % Eos % (Auto) 3.0 (0-4.4) % Baso % (Auto) 0.7 (0.2-1.2) % Lymph # (Auto) 2.44 (0.9-3.2) K/mm3 [place] # (Auto) 0.5 (0.1-0.6) K/mm3 Eos # (Auto) 0.2 (0-0.3) K/mm3 Baso # (Auto) 0.0 (0.0-0.1) K/mm3 Abs Immat Gran (auto) 0.02 (0.00-0.031) K/mm3 Absolute Neuts (auto) 2.9 (1.3-6.7) K/mm3 Absolute Nucleated RBC 0.0 (0.0-0.012) K/mm3 Nucleated RBC % 0.0 (0.0-0.2) % Sodium 136 L (137-145) mmol/L Potassium 4.9 (3.4-5.0) mmol/L Chloride 105 (98-107) mmol/L Carbon Di
[2023-06-18] MEDS: MORPHINE SULFATE (*CRX) 2 MG/ML INJ IV PUSH (16:44)
--- NOTE | 2023-06-18 18:27 | PC.NURSE ---
1826-ATTEMPTED TO DISCHARGE PATIENT. ASKED PATIENT IF SHE WAS FEELING BETTER. PATIENT STATED SHE WAS FEELING BETTER BUT WANTED AN EXPLANATION TO WHY MY BODY IS JUMPING . STATES IT IS HER ENTIRE BODY AND IT HAS BEEN GOING ON FOR TWO DAYS. REASSURED PATIENT I WOULD SPEAK WITH ERP. I SPOKE TO ERP WHO STATES THIS COMPLAINT IS NOT A SEIZURE. ERP SPOKE TO PATIENT AND WILL ORDER ADDITIONAL PAIN MEDICATIONS.
[2023-06-18] MEDS: MORPHINE SULFATE (*CRX) 2 MG/ML INJ 1 MG IV PUSH (18:43)
== END 2023-06-18 19:32 | disposition home or self-care (01) ==
PROVIDERS: Emergency Medicine; Physician Assistant; Emergency Provider Emergency Medicine; PCP Internal Medicine Infectious Disease
DX: N39.0 Urinary tract infection, site not specified (principal); I10 Essential (primary) hypertension; M32.9 Systemic lupus erythematosus, unspecified; E07.9 Disorder of thyroid, unspecified; K21.9 Gastro-esophageal reflux disease without esophagitis; Z96.659 Presence of unspecified artificial knee joint; Z85.3 Personal history of malignant neoplasm of breast; Z87.891 Personal history of nicotine dependence; Z90.49 Acquired absence of other specified parts of digestive tract; Z90.10 Acquired absence of unspecified breast and nipple; Z90.710 Acquired absence of both cervix and uterus; Z98.1 Arthrodesis status; J98.4 Other disorders of lung
CPT/HCPCS: 36415; 70460; 71046; 71100; 74177; 80053; 81001; 83690; 83735; 84484; 85025; 87086; 87088; 87147; 93005; 96374; 96375; 96376; 99284; A9270; J2270; J2405; Q9967

== ENCOUNTER 2023-07-10 12:50 | Outpatient (CLI) | payer OTHER, SELFPAY ==
[2023-07-10 13:18] LABS: Basophils Percent Auto 0.6 % (0.2-1.2); Eosinophils Absolute Auto 0.3 K/mm3 (0-0.3); Eosinophils Percent Auto 4.7 % (0-4.4); Hematocrit 36.5 % (37.0-47.0); Hemoglobin 11.3 g/dL (12.0-15.0); Immature Granulocyte Absolute 0.02 K/mm3 (0.00-0.031); Immature Granulocyte Percent A 0.3 % (0-0.5); Lymphocytes Absolute Auto 2.65 K/mm3 (0.9-3.2); Lymphocytes Percent Auto 41.5 % (18.3-44.2); Mean Corpuscular Hemoglobin 24.6 pg (26-34); Mean Corpuscular Volume 79.5 fl (80-100); Mean Platelet Volume 8.5 fl (7.4-10.4); Monocytes Absolute Auto 0.6 K/mm3 (0.1-0.6); Monocytes Percent Auto 9.4 % (2.6-8.5); Neutrophils Absolute Auto 2.8 K/mm3 (1.3-6.7); Neutrophils Percent Auto 43.5 % (45.5-73.1); Platelet Count Result 304 k/mm3 (150-375); Red Blood Count 4.59 M/mm3 (4.2-5.4); Red Cell Distribution Width 18.6 % (11.5-14.5); White Blood Count 6.4 K/mm3 (4.5-10.0)
[2023-07-10 13:28] LABS: Alanine Aminotransferase 34 U/L (6-35); Albumin Level 4.5 g/dL (3.5-5.1); Alkaline Phosphatase 73 U/L (38-126); Anion Gap 7 mmol/L (8-16); Aspartate Amino Transferase 49 U/L (14-36); Bilirubin,Total 0.5 mg/dL (0.2-1.3); Blood Urea Nitrogen 13 mg/dL (7-17); Carbon Dioxide 27 mmol/L (22-30); Chloride 104 mmol/L (98-107); Estimated Glomerular Filt Rate > 60; Glucose 82 mg/dL (65-110); Potassium 4.3 mmol/L (3.4-5.0); Sodium 138 mmol/L (137-145)
[2023-07-14 09:53] LABS: CA 15-3 12 U/mL (<32)
== END 2023-07-10 12:51 | disposition home or self-care (01) ==
PROVIDERS: PCP Internal Medicine Infectious Disease; Visit Provider Internal Medicine Hematology & Oncology
DX: C50.412 Malignant neoplasm of upper-outer quadrant of left female breast (principal); Z17.0 Estrogen receptor positive status [ER+]
CPT/HCPCS: 36415; 80053; 85025; 86300

== ENCOUNTER 2023-07-13 18:28 | Emergency (ER) | payer OTHER, SELFPAY ==
[2023-07-13 18:39] VITALS: BP 98/59; PULSE 87; RESP 16; TEMP 36.5; O2SAT 98
[2023-07-13 18:42] VITALS: BP 98/59; PULSE 87; RESP 16; TEMP 36.5; O2SAT 98
--- NOTE | 2023-07-13 19:02 | ED.BACK ---
HPI - Back Pain/Injury General Chief Complaint: Extremity Problem,Nontraumatic Stated Complaint: Left Hand/Lower Back Pain Time Seen by Provider: 07/13/23 18:45 Source: patient Mode of arrival: ambulatory Limitations: no limitations History of Present Illness HPI Narrative: Linda is a 53-year-old female patient presenting to the clinic today with complaints of left wrist and low back pain. She reports left wrist/hand pain is been going on x4 days in the low back has been going on for few days as well. She reports she is having right-sided back pain with pain radiating down the right leg. Denies any known injury to her wrist/hand or her back. She denies any saddle anesthesia or loss of bowel bladder. Related Data Home Medications Medication Instructions Recorded Confirmed venlafaxine 225 mg tablet,extended 225 mg PO QAM 10/13/19 07/13/23 release 24 hr pregabalin 300 mg capsule (Lyrica) 300 mg PO BID 05/18/20 07/13/23 aripiprazole 2 mg tablet 2 mg PO DAILY 07/09/23 07/13/23 buspirone 15 mg tablet 15 mg PO BID 07/09/23 07/13/23 famotidine 10 mg tablet 10 mg PO DAILY 07/09/23 07/13/23 Allergies Allergy/AdvReac Type Severity Reaction Status Date / Time adhesive tape Allergy Unknown Rash Verified 07/13/23 18:40 [facility] Past Medical History Medical History Breast cancer Depression GERD (gastroesophageal reflux disease) History of blood transfusion HTN (hypertension) Lupus (systemic lupus erythematosus) Sepsis Thyroid disease Surgical History Surgical History H/O mastectomy H/O: hysterectomy History of appendectomy History of carpal tunnel release History of cholecystectomy History of knee replacement Port-A-Cath in place S/P bilateral breast implants S/P cervical spinal fusion S/P shoulder surgery S/P trigger finger release Family History Family History Other Family history of malignant neoplasm Hypertension Social History Social History Smoking status: Never smoker Second hand tobacco smoke exposure: No Additional smoking assessment comments: chewed tobacco occassionally as a teen Alcohol intake: never Substance use: never Substance use type: does not use Lack of Transportation: No Lack of Food: Sometimes True Current Housing: I Have Housing Concerned About Future Housing: No Difficulty Paying Gas/Electric Bills: No Difficulty Paying for Meds: No Currently Unemployed: No Education: Don't Know Living arrangements: with family Occupation/Education: unemployed Gender identity (if verbalized by the patient): Female Spiritual care concerns: No Comments At the time of my signature, I reviewed and agree with the nursing past medical, surgical, social, and family history. There is no relevant family history pertinent to the patient complaint. Exam Narrative: General: Well-developed, morbidly obese, in no apparent distress Head: Normocephalic, atraumatic. Cardio: Regular rate and rhythm, s1 and s2 normal, no murmur appreciated. Resp: Clear to auscultation bilaterally, no rhonchi, rales, wheezing or rubs. Musculoskeletal: No deformity, mild swelling to the left wrist noted when compared to the right, tender to palpation over the left wrist and proximal hand, positive Yu test, positive Tinel's, grossly normal range of motion with pain, left professor of anthropology strength weaker than the right, tender to palpation over the right lower back- over the musculature, bilateral lower muscle strength strong and equal, negative foot drop, patellar reflexes 1+ bilaterally, straight leg test positive on the right at approximately 60?, peripheral pulse strong, no edema, no cyanosis, normal gait and station Course Course Emergency Course: Portions of t
[2023-07-13 19:10] VITALS: BP 100/61; PULSE 85
== END 2023-07-13 19:10 | disposition home or self-care (01) ==
PROVIDERS: Emergency Provider Nurse Practitioner Family; PCP Internal Medicine Infectious Disease
DX: M77.8 Other enthesopathies, not elsewhere classified (principal); R30.0 Dysuria; M54.41 Lumbago with sciatica, right side; F32.A Depression, unspecified; K21.9 Gastro-esophageal reflux disease without esophagitis; I10 Essential (primary) hypertension; M32.9 Systemic lupus erythematosus, unspecified; E07.9 Disorder of thyroid, unspecified; Z85.3 Personal history of malignant neoplasm of breast; Z90.13 Acquired absence of bilateral breasts and nipples
CPT/HCPCS: 81003; 87086; 87088; 99213; G0463

== ENCOUNTER 2023-10-11 11:47 | Outpatient (CLI) | payer OTHER, SELFPAY ==
[2023-10-11 13:34] LABS: Basophils Absolute Auto 0.1 K/mm3 (0.0-0.1); Basophils Percent Auto 0.6 % (0.2-1.2); Eosinophils Absolute Auto 0.2 K/mm3 (0-0.3); Eosinophils Percent Auto 2.9 % (0-4.4); Hematocrit 37.6 % (37.0-47.0); Hemoglobin 11.9 g/dL (12.0-15.0); Immature Granulocyte Absolute 0.04 K/mm3 (0.00-0.031); Immature Granulocyte Percent A 0.5 % (0-0.5); Lymphocytes Absolute Auto 2.72 K/mm3 (0.9-3.2); Lymphocytes Percent Auto 32.9 % (18.3-44.2); Mean Corpuscular HGB Conc 31.6 g/dl (32-36); Mean Corpuscular Hemoglobin 26.1 pg (26-34); Mean Corpuscular Volume 82.5 fl (80-100); Monocytes Absolute Auto 0.9 K/mm3 (0.1-0.6); Monocytes Percent Auto 10.3 % (2.6-8.5); Neutrophils Absolute Auto 4.4 K/mm3 (1.3-6.7); Neutrophils Percent Auto 52.8 % (45.5-73.1); Platelet Count Result 279 k/mm3 (150-375); Red Blood Count 4.56 M/mm3 (4.2-5.4); Red Cell Distribution Width 16.1 % (11.5-14.5); White Blood Count 8.3 K/mm3 (4.5-10.0)
[2023-10-11 13:43] LABS: Albumin Level 4.4 g/dL (3.5-5.1); Estimated Glomerular Filt Rate > 60; Glucose 85 mg/dL (65-110)
[2023-10-11 13:46] LABS: Urine Cotinine NEGATIVE
[2023-10-11 17:18] LABS: Hemoglobin A1C 5.7 % (<5.7)
== END 2023-10-11 11:48 | disposition home or self-care (01) ==
LOC: ANHSURGERY 11:50
PROVIDERS: PCP Internal Medicine Infectious Disease; Visit Provider Orthopaedic Surgery
DX: T84.012A Broken internal right knee prosthesis, initial encounter (principal)
CPT/HCPCS: 80307; 82040; 82565; 82947; 83036; 85025; 86850; 86900; 86901

== ENCOUNTER 2023-10-29 03:35 | Day surgery (SDC) | payer OTHER, SELFPAY ==
[2023-10-11 11:55] VITALS: BMI 36.8
[2023-10-11 12:15] VITALS: BP 164/108; PULSE 70; RESP 16; TEMP 37.2; O2SAT 95
--- NOTE | 2023-10-11 12:44 | PC.NURSE ---
Addendum entered by Olimpia Colbert RN 10/25/23 09:51: PT TO ARRIVE AT 0600 ON 10/29/23 FOR SURGERY AT 0730. PT HAS BEEN HOLDING ASPIRIN AND VITAMINS/SUPPLEMENTS. Original Note: Report to the Outpatient Waiting Room, entrance under the green pavilion located off [facility], at time _6:00AM on date __10/22/23 . Planned Procedure Time: __7:30AM . Time changes happen often and if your time is changed the preop area will call you the afternoon before. - You and your visitor will be asked to self-screen and do not enter if you have any COVID symptoms. - A mask is optional within the hospital at this time. Patients may have clear liquids (water, carbonated beverages, clear teas, apple juice) until 3 hours prior to surgery with a maximum of 20 ounces. - No food from midnight until time of surgery. Take the following medications with a SIP of water the morning of surgery: __ARIPIPRAZOLE, BUSPIRONE, PREGABALIN,VENLAFAXINE, METOPROLOL,NIFEDIPINE. HYDROCODONE NEEDED DO NOT STOP ANY OF YOUR OTHER PRESCRIPTION MEDICATIONS PRIOR TO SURGERY ?EXCEPT THE FOLLOWING Medications to discontinue per physician __HOLD ASPIRIN AND ALL VITAMINS/SUPPLEMENTS 7 DAYS PRE-OP PER DR GUERRA Date to take last dose___10/14/23 Please no make-up, nail swazi, hairspray, perfume, deodorant, or body powder the day of surgery. No jewelry (including any body piercings) or valuables the day of surgery, leave them at home. Please take a shower or bath the night before, or the morning of, surgery with an antibacterial soap. Wear comfortable, loose fitting clothing. Children are encouraged to wear pajamas. - Jewelry must be removed prior to entering the operating room. Rings and piercings that are not removed may be cut off. - The hospital will not accept responsibility for valuables. - Please leave all valuables, including medications, at home the day of surgery. If you are going home after surgery, a licensed tow motor driver must drive you home. - NO public transportation without another adult if you receive anesthesia. - We recommend that an adult stay with you for 24 hours following discharge. - We also recommend that you do not drive, make important decision, drink alcoholic beverages, or take any drugs that were not prescribed by your health care provider for at least 24 hours after your discharge time. Follow any additional instructions given to you from your surgeon. If you or anyone in your household have experienced Covid symptoms in the past week, please notify your surgeon or the nurse liaison at the phone number below for possible testing. Telephone instructions given to ___PATIENT and asked if any additional questions and then verbalized understanding. Patient advised to call surgeon office or pre surgery nurse liaison [phone] if any additional questions.
--- NOTE | 2023-10-17 07:19 | PM.IMHP ---
H&P: HPI History of Present Illness Date/Time: 10/17/23 07:19 Chief Complaint: Painful right total knee arthroplasty Narrative: Patient underwent total knee arthroplasty bilaterally 4-5 years ago. She is loose in the joint and the knee appears to be unstable. She prevents for presents for revision of her right total knee with a polyethylene exchange. Review of Systems Review of Systems: CONSTITUTIONAL: Denies fever, chills EYES: Denies visual changes, redness, or discharge. ENT: Denies rhinorrhea, congestion, sore throat, or otalgia. CARDIOVASCULAR: See HPI RESPIRATORY: Denies cough or dyspnea. GASTROINTESTINAL: See HPI GENITOURINARY: See HPI SKIN: Denies rash or itching. MUSCULOSKELETAL: See HPI NEUROLOGIC: Denies headache, numbness, dizziness, or weakness. PSYCHIATRIC: Denies anxiety or depression. [facility] Past Medical History Medical History (Updated 07/14/23 @ 00:00 by Cornelia Whitney) Breast cancer Depression GERD (gastroesophageal reflux disease) History of blood transfusion HTN (hypertension) Lupus (systemic lupus erythematosus) Sepsis Thyroid disease Surgical History Surgical History (Updated 07/23/23 @ 11:49 by Ginette Sampson [facility]) H/O mastectomy H/O: hysterectomy History of appendectomy History of carpal tunnel release History of cholecystectomy History of knee replacement 2014 Port-A-Cath in place S/P bilateral breast implants S/P cervical spinal fusion S/P shoulder surgery S/P trigger finger release Family History Family History Other Family history of malignant neoplasm Hypertension Social History Social History Smoking status: Never smoker Second hand tobacco smoke exposure: No Additional smoking assessment comments: chewed tobacco occassionally as a teen Alcohol intake: never Substance use: never Substance use type: does not use Lack of Transportation: No Lack of Food: Sometimes True Current Housing: I Have Housing Concerned About Future Housing: No Difficulty Paying Gas/Electric Bills: No Difficulty Paying for Meds: No Currently Unemployed: No Education: Don't Know Living arrangements: with family Additional living arrangements comments: HUSB AND GRANDSON Occupation/Education: unemployed Gender identity (if verbalized by the patient): Female Spiritual care concerns: No Meds Home Medications and Allergies Home Medications Medication Instructions Recorded Confirmed Type venlafaxine 225 mg tablet,extended 225 mg PO QAM 10/13/19 10/11/23 History release 24 hr pregabalin 300 mg capsule (Lyrica) 300 mg PO BID 05/18/20 10/11/23 History aripiprazole 2 mg tablet 2 mg PO QAM 07/09/23 10/11/23 History buspirone 15 mg tablet 15 mg PO BID 07/09/23 10/11/23 History anastrozole 1 mg tablet 1 mg PO DAILY 10/11/23 10/11/23 History aspirin 325 mg tablet 325 mg PO DAILY 10/11/23 10/11/23 History cyclobenzaprine 10 mg tablet 10 mg PO TID PRN Muscle Spasm 10/11/23 10/11/23 History famotidine 20 mg tablet 20 mg PO QAM 10/11/23 10/11/23 History ferrous sulfate 325 mg (65 mg 325 mg PO DAILY 10/11/23 10/11/23 History iron) tablet (FeroSul) hydrocodone 5 mg-acetaminophen 325 1 tablet PO Q6-8H PRN Pain 10/11/23 10/11/23 History mg tablet hydroxyzine HCl 50 mg tablet 100 mg PO HS 10/11/23 10/11/23 History ketoconazole 2 % topical cream 1 applic topical DAILY 10/11/23 10/11/23 History lisinopril 40 mg tablet 40 mg PO QAM 10/11/23 10/11/23 History metoprolol succinate 200 mg 200 mg PO QAM 10/11/23 10/11/23 History tablet,extended release 24 hr multivitamin 1 tablet PO DAILY 10/11/23 10/11/23 History nifedipine 30 mg tablet,extended 30 mg PO QAM 10/11/23 10/11/23 History release trazodone 150 mg tablet 150 mg PO HS 10/11/23 10/11/23 History vitamin E 1,000 unit tablet 1 tablet PO DAILY 10/11/23 10/11/23 History All
--- NOTE | 2023-10-23 13:25 | PM.IMHP ---
H&P: HPI History of Present Illness Date/Time: 10/23/23 13:25 Chief Complaint: Patient presents for right knee pain from a failed total knee arthroplasty. She has laxity of the knee. Review of Systems Musculoskeletal: Musculoskeletal: Reports arthralgias and Reports joint swelling PMF Past Medical History Medical History (Updated 07/14/23 @ 00:00 by Cornelia Whitney) Breast cancer Depression GERD (gastroesophageal reflux disease) History of blood transfusion HTN (hypertension) Lupus (systemic lupus erythematosus) Sepsis Thyroid disease Surgical History Surgical History (Updated 07/23/23 @ 11:49 by Ginette Sampson, [facility]) H/O mastectomy H/O: hysterectomy History of appendectomy History of carpal tunnel release History of cholecystectomy History of knee replacement 2014 Port-A-Cath in place S/P bilateral breast implants S/P cervical spinal fusion S/P shoulder surgery S/P trigger finger release Family History Family History Other Family history of malignant neoplasm Hypertension Social History Social History Smoking status: Never smoker Second hand tobacco smoke exposure: No Additional smoking assessment comments: chewed tobacco occassionally as a teen Alcohol intake: never Substance use: never Substance use type: does not use Lack of Transportation: No Lack of Food: Sometimes True Current Housing: I Have Housing Concerned About Future Housing: No Difficulty Paying Gas/Electric Bills: No Difficulty Paying for Meds: No Currently Unemployed: No Education: Don't Know Living arrangements: with family Additional living arrangements comments: HUSB AND GRANDSON Occupation/Education: unemployed Gender identity (if verbalized by the patient): Female Spiritual care concerns: No Meds Home Medications and Allergies Home Medications Medication Instructions Recorded Confirmed Type venlafaxine 225 mg tablet,extended 225 mg PO QAM 10/13/19 10/11/23 History release 24 hr pregabalin 300 mg capsule (Lyrica) 300 mg PO BID 05/18/20 10/11/23 History aripiprazole 2 mg tablet 2 mg PO QAM 07/09/23 10/11/23 History buspirone 15 mg tablet 15 mg PO BID 07/09/23 10/11/23 History anastrozole 1 mg tablet 1 mg PO DAILY 10/11/23 10/11/23 History aspirin 325 mg tablet 325 mg PO DAILY 10/11/23 10/11/23 History cyclobenzaprine 10 mg tablet 10 mg PO TID PRN Muscle Spasm 10/11/23 10/11/23 History famotidine 20 mg tablet 20 mg PO QAM 10/11/23 10/11/23 History ferrous sulfate 325 mg (65 mg 325 mg PO DAILY 10/11/23 10/11/23 History iron) tablet (FeroSul) hydrocodone 5 mg-acetaminophen 325 1 tablet PO Q6-8H PRN Pain 10/11/23 10/11/23 History mg tablet hydroxyzine HCl 50 mg tablet 100 mg PO HS 10/11/23 10/11/23 History ketoconazole 2 % topical cream 1 applic topical DAILY 10/11/23 10/11/23 History lisinopril 40 mg tablet 40 mg PO QAM 10/11/23 10/11/23 History metoprolol succinate 200 mg 200 mg PO QAM 10/11/23 10/11/23 History tablet,extended release 24 hr multivitamin 1 tablet PO DAILY 10/11/23 10/11/23 History nifedipine 30 mg tablet,extended 30 mg PO QAM 10/11/23 10/11/23 History release trazodone 150 mg tablet 150 mg PO HS 10/11/23 10/11/23 History vitamin E 1,000 unit tablet 1 tablet PO DAILY 10/11/23 10/11/23 History Allergies Allergy/AdvReac Type Severity Reaction Status Date / Time adhesive tape AdvReac Unknown Rash, Verified 10/11/23 11:59 REDNESS, BURNING Exam Narrative: On exam she has 1 0 to 120?. She has got mild laxity in both flexion and extension particularly flexion. The knee wobbled just a bit as she stretches the ligaments are warm the plastic. Eyes: General: appearance normal, both eyes and all related structures Neck: Neck: supple Resp: Effort & Inspection: normal respiratory effort Cardio: Rate: re
--- NOTE | 2023-10-25 09:53 | PC.NURSE ---
Pt states no changes in medications or health history since initial interview. New pre-op instructions reviewed with pt. Pt denies further questions at this time.
[2023-10-29] VITALS (17 sets, daily range): BP systolic 107–151; BP diastolic 56–90; PULSE 60–96; RESP 12–18; TEMP 36.2–37.2; O2SAT 92–100
--- NOTE | ~2023-10-29 | XR_ITS ---
EXAMINATION: [id number] DATE: 10/29/2023 09:24 INDICATION: Total right knee arthroplasty revision. Postop. TECHNIQUE: 2 views of right knee were obtained. COMPARISON: None. FINDINGS: There is a total right knee arthroplasty with patellar resurfacing in near-anatomic alignme nt. No fracture. No knee joint effusion. Anterior skin hollie are noted. IMPRESSION: 1. Total right knee arthroplasty in near-anatomic alignment. Reviewed, dictated and finalized at location A. [facility]
[2023-10-29] MEDS: ACETAMINOPHEN 500 MG TABLET 1000 MG PO ×3 (06:30→21:01)
--- NOTE | 2023-10-29 06:53 | WPDHPUPDATE1 ---
History and Physical Update Update Date/Time: 10/29/23 06:53 History and Physical has been reviewed, including an updated exam of the patient. There are NO changes in the patient's condition. Risks, benefits, and alternatives have been discussed and questions answered. Patient agrees to proceed with procedure. Higher risk surgery with the patient's history of infection and other medical problems. She understands.
[2023-10-29] MEDS: LACTATED RINGERS 1,000 ML 30 ML IV CONT (07:00)
[2023-10-29] MEDS: VANCOMYCIN 1,500 MG/NS 500 ML BAG 250 MG IVPB (07:10)
[2023-10-29] MEDS: TRANEXAMIC ACID 1,000MG/ISO100 1,000 MG/100 ML BAG 200 MG IVPB (07:10)
--- NOTE | 2023-10-29 07:14 | WPDANESEPPF ---
Anes - Initial Pre Proc Eval Procedure: Operation Date: 10/29/23 07:30 Proposed Procedures p Right Total Knee Revision - Ankur Espinal MD Date/Time: 10/29/23 07:14 Surgeon: Ankur Espinal MD Pre Op Diagnosis: failed Right TKA Patient Data Age: 53 Gender: F Height: 1.65 m Weight: 100.3 kg Last Vital Signs Temp 37.2 C 10/11/23 12:15 Pulse 70 10/11/23 12:15 Resp 16 10/11/23 12:15 BP 164/108 H 10/11/23 12:15 Pulse Ox 95 10/11/23 12:15 O2 Del Method Room Air 10/11/23 12:15 Allergies Allergy/AdvReac Type Severity Reaction Status Date / Time adhesive tape AdvReac Unknown Rash, Verified 10/25/23 09:54 REDNESS, BURNING Home Medications Medication Instructions Recorded Confirmed Type venlafaxine 225 mg tablet,extended 225 mg PO QAM 10/13/19 10/25/23 History release 24 hr pregabalin 300 mg capsule (Lyrica) 300 mg PO BID 05/18/20 10/25/23 History aripiprazole 2 mg tablet 2 mg PO QAM 07/09/23 10/25/23 History buspirone 15 mg tablet 15 mg PO BID 07/09/23 10/25/23 History anastrozole 1 mg tablet 1 mg PO DAILY 10/11/23 10/25/23 History aspirin 325 mg tablet 325 mg PO DAILY 10/11/23 10/25/23 History cyclobenzaprine 10 mg tablet 10 mg PO TID PRN Muscle Spasm 10/11/23 10/25/23 History famotidine 20 mg tablet 20 mg PO QAM 10/11/23 10/25/23 History ferrous sulfate 325 mg (65 mg 325 mg PO DAILY 10/11/23 10/25/23 History iron) tablet (FeroSul) hydrocodone 5 mg-acetaminophen 325 1 tablet PO Q6-8H PRN Pain 10/11/23 10/25/23 History mg tablet hydroxyzine HCl 50 mg tablet 100 mg PO HS 10/11/23 10/25/23 History ketoconazole 2 % topical cream 1 applic topical DAILY 10/11/23 10/25/23 History lisinopril 40 mg tablet 40 mg PO QAM 10/11/23 10/25/23 History metoprolol succinate 200 mg 200 mg PO QAM 10/11/23 10/25/23 History tablet,extended release 24 hr multivitamin 1 tablet PO DAILY 10/11/23 10/25/23 History nifedipine 30 mg tablet,extended 30 mg PO QAM 10/11/23 10/25/23 History release trazodone 150 mg tablet 150 mg PO HS 10/11/23 10/25/23 History vitamin E 1,000 unit tablet 1 tablet PO DAILY 10/11/23 10/25/23 History rivaroxaban 10 mg tablet (Xarelto) 10 mg PO DAILY PE prophylaxis s/p 10/25/23 Rx joint replacement surgery 10 days #10 tabs Patient hx anesthesia problems: none Family hx anesthesia problems: none Results Review: All pre-operative results and documents have been reviewed as part of the pre-operative evaluation. [facility] Past Medical History Medical History Breast cancer Depression GERD (gastroesophageal reflux disease) History of blood transfusion HTN (hypertension) Lupus (systemic lupus erythematosus) Sepsis Thyroid disease Surgical History Surgical History H/O mastectomy H/O: hysterectomy History of appendectomy History of carpal tunnel release History of cholecystectomy History of knee replacement 2014 Port-A-Cath in place S/P bilateral breast implants S/P cervical spinal fusion S/P shoulder surgery S/P trigger finger release Family History Family History Other Family history of malignant neoplasm Hypertension Social History Social History Smoking status: Never smoker Second hand tobacco smoke exposure: No Additional smoking assessment comments: chewed tobacco occassionally as a teen Alcohol intake: never Substance use: never Substance use type: does not use Lack of Transportation: No Lack of Food: Sometimes True Current Housing: I Have Housing Concerned About Future Housing: No Difficulty Paying Gas/Electric Bills: No Difficulty Paying for Meds: No Currently Unemployed: No Education: Don't Know Living arrangements: with family Additional living arrangements commen
[2023-10-29] MEDS: SODIUM CHLORIDE 0.9% IV 37.7 ML, MORPHINE SULFATE INJ (*CRX) 2 MG, ROPivacaine HCL 1% 2... INFILTRATE (08:08)
[2023-10-29] MEDS: ceFAZolin 2 GM/D5W 50 ML 2 GM/50 ML BAG IVPB ×3 (08:11→23:45)
--- NOTE | 2023-10-29 08:30 | P.OP_ITS ---
Procedure Note - Detailed Date of Procedure 10/29/23 Pre-op Diagnosis Failed Right TKA Post-op Diagnosis Same Procedure Performed Revision right total knee. Surgeon Ankur Espinal MD [employer] Anesthesia General Indications Pain and laxity Description of Procedure Patient brought to operating room #8. A general anesthetic was administered. She was sterilely prepped and draped in usual manner. The old incision reopened. Dissection carried down to the fascia. Medial parapatellar incision made. Onlya mild amount of fluid found in the knee. This was sent for culture. A tissue culture ws sent as well because she has had previous infection in her shoulder. I then opened up the knee and removed the liner. The liner was a 12 millimeter . It she had obvious laxity with this liner. I inserted a 14 trial this gave excellent stability and motion. I used a 14AS poly and impacted that into place and locked it. This gave excellent stability motion in all directions. The wound irrigated. Hemostasis obtained. Closed with #2 Vicryl, #2 Quill, 2-0 Vicryl and hollie. A sterile dressing was applied. Patient left the operating in satisfactory condition. [employer] Estimated Blood Loss 50 Drains No Packing No Pathology Yes Complications No immediate complications [facility] Billing Surgery - Charge Forward: Surgery Billing (Revision Right Total Knee [id number])
[2023-10-29] MEDS: HYDROmorphone HCL INJ (*CRX) 1 MG/ML SYR 0.5 MG IV PUSH ×4 (09:16→09:52)
[2023-10-29] MEDS: diphenhydrAMINE HCl INJ 50 MG/ML VIAL 25 MG IV PUSH (11:00)
--- NOTE | 2023-10-29 11:39 | ADMGEN ---
This patient, Chela Mcnulty, was admitted to Medical Room [facility]- at 1130. Patient/family oriented to hospital policies and general routines including ID bracelet, bed and alarms, visiting hours, pain management, procedures, bathroom and other care routines, personal items, smoking policy, room service/diet, and visiting hours. Information on how to activate the Rapid Response Team has been discussed. Patient/Family are encouraged to report perceived risks to care and to ask questions if they do not understand what they are told or what they should do.
[2023-10-29] MEDS: SENNA/DOCUSATE SODIUM TABLET 2 TAB PO ×2 (11:54→16:22)
[2023-10-29] MEDS: PREGABALIN (*CRX) 75 MG CAPSULE 300 MG PO ×2 (11:54→16:22)
[2023-10-29] MEDS: ASPIRIN 325 MG TABLET PO (11:54)
[2023-10-29] MEDS: METOPROLOL SUCCINATE EXT REL 100 MG TABCR 200 MG PO (11:54)
[2023-10-29] MEDS: busPIRone HCL 5 MG TABLET 15 MG PO ×2 (11:54→20:46)
[2023-10-29] MEDS: VENLAFAXINE HCL XR 75 MG CAP.ER.24H 225 MG PO (11:54)
[2023-10-29] MEDS: ANASTROZOLE (*CHEMO) 1 MG TABLET PO (11:54)
[2023-10-29] MEDS: SODIUM CHLORIDE 0.9% IV 1,000 ML 125 ML IV CONT (11:55)
[2023-10-29] MEDS: polyethylene glycoL 3350 17 GM POWD.PACK PO (11:55)
[2023-10-29] MEDS: NIFEdipine 30 MG TAB.ER.24 PO (11:55)
[2023-10-29] MEDS: FAMOTIDINE 20 MG TABLET PO (11:55)
[2023-10-29] MEDS: ARIPiprazole 2 MG TABLET PO (11:55)
[2023-10-29] MEDS: HYDROcodone/acetaminophen (*CRX) 5-325 MG TABLET 1 TAB PO ×3 (11:56→23:44)
--- NOTE | 2023-10-29 14:25 | WPDCN ---
Assessment and Plan Assessment and plan (1) Failed total knee arthroplasty: Code(s): T84.018A - Broken internal joint prosthesis, other site, initial encounter; Z96.659 - Presence of unspecified artificial knee joint Status: Acute Assessment and Plan: Postoperative day 0 status post revision right total knee. Wound care, pain control, and DVT prophylaxis deferred to Dr. Espinal. (2) Hypertension: Code(s): I10 - Essential (primary) hypertension Status: Acute Assessment and Plan: Blood pressures were reviewed and they have been stable postoperative Resume lisinopril 40 mg daily, metoprolol 200 mg daily, and nifedipine 30 mg daily. (3) Gastroesophageal reflux disease: Code(s): K21.9 - Gastro-esophageal reflux disease without esophagitis Status: Acute Assessment and Plan: Continue famotidine 20 mg daily. (4) Iron deficiency anemia: Code(s): D50.9 - Iron deficiency anemia, unspecified Status: Acute Assessment and Plan: Continue ferrous sulfate 325 mg daily. Check hemoglobin and hematocrit in a.m. (5) History of breast cancer: Code(s): Z85.3 - Personal history of malignant neoplasm of breast Status: Acute Assessment and Plan: Continue anastrozole 1 mg daily. Plan Thank you for allowing us to participate in this patient's care. Please do not hesitate to contact us with any questions. HPI Data of Consult Date/Time: 10/29/23 14:25 Requesting Physician: Ankur Espinal MD Consult Narrative Reason for consult: Medical management. Narrative: This is a 54-year-old female who presented today for revision of a failed right total knee arthroplasty. The hospitalist service has been consulted for help managing her medical conditions which include history of breast cancer, hypertension, lupus, sleep apnea, iron deficiency anemia, and anxiety. Surgery was performed under general anesthesia with no immediate complications documented and an estimated blood loss of 50 mL. Postoperatively, pain is pretty well controlled and she is only taking her usual dose of home pain medications. She denies fever, chills, sweats, chest pain, shortness a breath, nausea, and vomiting. No paresthesias, skin color, or temperature changes distal to the surgical site. Regarding her chronic medical conditions, she believes they are well controlled on home medications. She has a diagnosis of sleep apnea but does not use a CPAP at nighttime. No history of DVT/PE. Review of Systems Review of Systems: Twelve systems were reviewed and are negative except for as per HPI. [facility] Past Medical History Medical History Breast cancer Status post bilateral mastectomy and chemo radiation. Depression Gastroesophageal reflux disease Hypertension Iron deficiency anemia History of blood transfusion. Sepsis Systemic lupus erythematosus Thyroid disease Surgical History Surgical History History of appendectomy History of arthroplasty of right knee History of arthroscopy of right knee History of bilateral mastectomy History of carpal tunnel release History of cholecystectomy History of endoscopic sinus surgery History of fusion of cervical spine History of hysterectomy History of repair of right rotator cuff Port-A-Cath in place Status post transverse rectus abdominis muscle flap breast reconstruction Status post trigger finger release Family History Family History Other Family history of malignant neoplasm Hypertension Social History Social History (Updated 10/30/23 @ 00:24 by Yennifer Chase PA-C) Social History: Surrogate medical decision maker: Domingo Mcnulty, spouse. Code status: Full code. Smoking status: Never smoker Second hand tobacco smoke exposure:
[2023-10-29] MEDS: CYCLOBENZAPRINE HCL 10 MG TABLET PO ×2 (15:09→21:59)
[2023-10-29] MEDS: hydrOXYzine HCL 25 MG TABLET 100 MG PO (20:47)
[2023-10-29] MEDS: traZODone HCL 50 MG TABLET 150 MG PO (20:47)
[2023-10-30 04:58] VITALS: BP 114/58; PULSE 97; RESP 16; TEMP 37.1; O2SAT 95
[2023-10-30 05:29] LABS: Basophils Percent Auto 0.2 % (0.2-1.2); Eosinophils Percent Auto 0.1 % (0-4.4); Hematocrit 34.1 % (37.0-47.0); Hemoglobin 10.5 g/dL (12.0-15.0); Immature Granulocyte Absolute 0.03 K/mm3 (0.00-0.031); Immature Granulocyte Percent A 0.3 % (0-0.5); Lymphocytes Absolute Auto 2.37 K/mm3 (0.9-3.2); Lymphocytes Percent Auto 25.3 % (18.3-44.2); Mean Corpuscular HGB Conc 30.8 g/dl (32-36); Mean Corpuscular Hemoglobin 26.3 pg (26-34); Mean Corpuscular Volume 85.3 fl (80-100); Mean Platelet Volume 8.9 fl (7.4-10.4); Monocytes Absolute Auto 0.8 K/mm3 (0.1-0.6); Neutrophils Absolute Auto 6.1 K/mm3 (1.3-6.7); Neutrophils Percent Auto 65.1 % (45.5-73.1); Platelet Count Result 286 k/mm3 (150-375); Red Cell Distribution Width 16.5 % (11.5-14.5); White Blood Count 9.4 K/mm3 (4.5-10.0)
[2023-10-30] MEDS: HYDROcodone/acetaminophen (*CRX) 5-325 MG TABLET 1 TAB PO ×3 (05:32→17:46)
[2023-10-30 05:38] LABS: Anion Gap 8 mmol/L (8-16); Blood Urea Nitrogen 13 mg/dL (7-17); Calcium 8.4 mg/dL (8.4-10.2); Carbon Dioxide 26 mmol/L (22-30); Chloride 106 mmol/L (98-107); Estimated CRCL calculation 80 ml/min; Estimated Glomerular Filt Rate > 60; Glucose 141 mg/dL (65-110); Magnesium 2.1 mg/dL (1.6-2.3); Potassium 3.8 mmol/L (3.4-5.0); Sodium 140 mmol/L (137-145)
--- NOTE | 2023-10-30 07:05 | PM.PNORT ---
Progress Note: A&P Assessment and Plan (1) History of knee replacement procedure of right knee: Code(s): Z96.651 - Presence of right artificial knee joint Status: Acute Assessment and Plan: Patient underwent the revision right total knee. A basically we did a poly swap. This point she would she is stable and can be dismissed home. Despite follow up 10 to 14 days for sutures out. Dismissal medications Gully, Doxycycline, as well as Flexeril. Subjective Subjective Date/Time Seen: 10/30/23 07:05 Post Op day: 1 Principal diagnosis: Revision right total knee Review of Systems Musculoskeletal: Musculoskeletal: Reports arthralgias and Reports joint swelling Exam Narrative: Dressing is intact. Patient is wiggling her toes. Objective Data Vital Signs Vital Signs: Vital Signs - 24 hr 10/29/23 09:04 10/29/23 09:15 10/29/23 09:30 Temperature 98.9 F Pulse Rate 79 67 69 Respiratory Rate 12 12 18 Blood Pressure 151/79 H 107/59 L 132/78 Pulse Oximetry 100 98 99 Oxygen Delivery Simple Face Mask Nasal Cannula Nasal Cannula Oxygen Flow Rate 8 2 2 10/29/23 09:45 10/29/23 10:00 10/29/23 10:15 Temperature Pulse Rate 68 62 77 Respiratory Rate 12 12 18 Blood Pressure 133/86 111/86 146/90 H Pulse Oximetry 99 100 98 Oxygen Delivery Nasal Cannula Nasal Cannula Nasal Cannula Oxygen Flow Rate 2 2 2 10/29/23 10:30 10/29/23 10:45 10/29/23 11:00 Temperature Pulse Rate 64 69 60 Respiratory Rate 12 18 12 Blood Pressure 118/71 120/72 120/70 Pulse Oximetry 100 99 100 Oxygen Delivery Nasal Cannula Nasal Cannula Nasal Cannula Oxygen Flow Rate 2 2 2 10/29/23 11:10 10/29/23 11:43 10/29/23 12:04 Temperature Pulse Rate 68 76 Respiratory Rate 12 16 Blood Pressure 118/71 133/82 Pulse Oximetry 100 92 Oxygen Delivery Nasal Cannula Room Air Oxygen Flow Rate 2 10/29/23 11:58 10/29/23 12:28 10/29/23 13:53 Temperature 97.4 F L 97.3 F L Pulse Rate 69 65 Respiratory Rate 16 18 Blood Pressure 136/80 140/56 L Pulse Oximetry 93 97 Oxygen Delivery Room Air Oxygen Flow Rate 10/29/23 18:08 02/26/24 20:58 10/29/23 23:51 Temperature 97.2 F L 98.2 F 98.8 F Pulse Rate 85 96 84 Respiratory Rate 18 16 16 Blood Pressure 142/76 H 126/72 142/84 H Pulse Oximetry 96 92 92 Oxygen Delivery Oxygen Flow Rate 10/30/23 04:58 Temperature 98.7 F Pulse Rate 97 Respiratory Rate 16 Blood Pressure 114/58 L Pulse Oximetry 95 Oxygen Delivery Oxygen Flow Rate Intake/Output Intake/Output: Intake & Output 10/27/23 10/28/23 10/29/23 10/30/23 23:59 23:59 23:59 23:59 Intake Total 3380 800 Output Total 600 Balance 2780 800 Meds/Results Medications: Active Medications Generic Name Dose Route Start Last Admin Trade Name Freq PRN Reason Stop Dose Admin Acetaminophen 1,000 mg 10/29/23 11:13 10/29/23 21:01 Acetaminophen 500 Mg Tablet PO 1,000 mg Q6H PRN Administration Pain Rated 1-3 Hydrocodone Bitart/Acetaminophen 1 tab 10/29/23 11:13 10/30/23 05:32 Hydrocodone/Acetaminophen (*Crx) 5-325 Mg Tablet PO 1 tab Q6-8H PRN Administration Pain 4-10 Anastrozole 1 mg 10/29/23 11:45 10/29/23 11:54 Anastrozole (*Chemo) 1 Mg Tablet PO 1 mg DAILY HIEU Administration Aripiprazole 2 mg 10/29/23 11:13 10/29/23 11:55 Aripiprazole 2 Mg Tablet PO 2 mg QAM HIEU Administration Aspirin 325 mg 10/29/23 11:13 10/29/23 11:54 Aspirin 325 Mg Tablet PO 325 mg DAILY HIEU Administration Buspirone HCl 15 mg 10/29/23 11:13 10/29/23 20:46 Buspirone Hcl 5 Mg Tablet PO 15 mg Q12HR HIEU Administration Cyclobenzaprine HCl 10 mg 10/29/23 11:13 10/29/23 21:59 Cyclobenzaprine Hcl 10 Mg Tablet PO 10 mg TID PRN Administration Muscle Spasm Famotidine 20 mg 10/29/23 11:13 10/29/23 11:55 Famotidine 20 Mg Tablet PO 20 mg QAM HIEU Administration Ferrous Sulfate 325 mg 10/30/23 09:00 Ferrous Stone
--- NOTE | 2023-10-30 07:08 | PM.DS ---
DS: Admitting Diagnosis Discharge Date 10/29/23 Admitting Diagnosis Failed right total knee DS: Discharge Diagnosis Discharge Diagnosis (1) History of knee replacement procedure of right knee: Code(s): Z96.651 - Presence of right artificial knee joint Status: Acute Plan Revision right total knee DS: Summary Hospital Course Hospital Course: Patient underwent revision total knee arthroplasty on the right for instability. I essentially did a polyethylene exchange and sent the cultures she had very little fluid in the knee. At the end of the procedure the knee was rock stable. Time Spent with Patient Time attestation: Total time spent providing and/or coordinating discharge services: DS: Data Data Completed and Pending Labs on day of discharge: Labs from last 24 hours 10/30/23 10/29/23 04:53 07:14 WBC 9.4 RBC 4.00 L Hgb 10.5 L Hct 34.1 L MCV 85.3 MCH 26.3 MCHC 30.8 L RDW 16.5 H Plt Count 286 MPV 8.9 Immature Gran % (Auto) 0.3 Neut % (Auto) 65.1 Lymph % (Auto) 25.3 [place] % (Auto) 9.0 H Eos % (Auto) 0.1 Baso % (Auto) 0.2 Lymph # (Auto) 2.37 [place] # (Auto) 0.8 H Eos # (Auto) 0.0 Baso # (Auto) 0.0 Abs Immat Gran (auto) 0.03 Absolute Neuts (auto) 6.1 Absolute Nucleated RBC 0.0 Nucleated RBC % 0.0 Sodium 140 Potassium 3.8 Chloride 106 Carbon Dioxide 26 Anion Gap 8 BUN 13 Creatinine 0.80 Estim Creat Clear Calc 80 Estimated GFR > 60 Glucose 141 H Calcium 8.4 Magnesium 2.1 Blood Type B Positive Antibody Screen Negative Discharge Plan Discharge Patient Disposition: Home, Self-Care Discharge Instructions: Dr. Ankur Espinal M.D [id number] [address] POST-OPERATIVE DISCHARGE INSTRUCTIONS TOTAL KNEE ARTHROPLASTY 1. When resting, do not rest in the chair.When resting, lie on your back, with back flat on the couch or bed, with leg elevated above heart to minimize swelling. You may put a pillow under your head. . Significant swelling could indicate a blood clot and if this occurs call the office (or go to the ER) to have a venous ultrasound. Therefore, do not rest in a chair. 2. At least five times a day spend several minutes stretching your knee into flexion while sitting in the chair and also stretching your knee out straight The abilities to bend your knee fulling and straighten your knee fully are two most important knee functions to focus on during your recovery. 3. It is ok to sit in chair to eat, use the toilet and receive a guest and to do your stretching exercises, but, sitting in a chair will cause your leg to swell. Therefore, avoid additional time sitting in the chair. and don't rest in the chair. 4. Wound Care: Nursing will give you an additional Mepilex dressing at the time of discharge. Patient to remove the dressing and apply a new Mepilex dressing at home 7 days after surgery and leave the dressing on until seen in office. 5. May shower with a Mepilex dressing in place.The water will run off the dressing. 6. Unless you are told otherwise, you may put full weight on your operated leg. Use a walker for balance and practice walking as normally as you can, ideally for a few minutes every hour while you are awake. 7. I would advise against putting ice packs on your knee incision. Ice constricts blood flow which can impar healing of the knee incision. IMPORTANT: Remember not to sit in the chair for more than 30 minutes at a time. As a rule, during the first 14 days after surgery, only sit in the chair to work on the chair knee bending stretch exercise, for meals or for use of the restroom. Sitting in the chair promotes significant swelling in the knee and leg which will make your knee stiff and more painful and which simulates having a blood clot in the veins of the leg. If this type of significant diffuse swelling occurs, an ultrasound at the hospital
--- NOTE | 2023-10-30 07:11 | WPDANESPN ---
Anes - Prog Note Post-Op Date/Time: 10/30/23 07:11 Cardiovascular status: normal Respiratory status: normal Airway patency: baseline Mental status: baseline Post-Op hydration status: normal Vital Signs: Last Vital Signs Temp 98.7 F 10/30/23 04:58 Pulse 97 10/30/23 04:58 Resp 16 10/30/23 04:58 BP 114/58 L 10/30/23 04:58 Pulse Ox 95 10/30/23 04:58 O2 Del Method Room Air 10/29/23 13:53 O2 Flow Rate 2 10/29/23 11:10 Pain Score (VAS): 9 I/O: Intake & Output 10/29/23 10/29/23 10/30/23 15:59 23:59 07:59 Intake Total 1390 1989 800 Output Total 600 Balance 790 1989 Laboratory Tests 10/30/23 04:53 10/30/23 04:53 10/29/23 10/30/23 07:14 04:53 WBC 9.4 RBC 4.00 L Hgb 10.5 L Hct 34.1 L MCV 85.3 MCH 26.3 MCHC 30.8 L RDW 16.5 H Plt Count 286 MPV 8.9 Immature Gran % (Auto) 0.3 Neut % (Auto) 65.1 Lymph % (Auto) 25.3 [place] % (Auto) 9.0 H Eos % (Auto) 0.1 Baso % (Auto) 0.2 Lymph # (Auto) 2.37 [place] # (Auto) 0.8 H Eos # (Auto) 0.0 Baso # (Auto) 0.0 Abs Immat Gran (auto) 0.03 Absolute Neuts (auto) 6.1 Absolute Nucleated RBC 0.0 Nucleated RBC % 0.0 Sodium 140 Potassium 3.8 Chloride 106 Carbon Dioxide 26 Anion Gap 8 BUN 13 Creatinine 0.80 Estim Creat Clear Calc 80 Estimated GFR > 60 Glucose 141 H Calcium 8.4 Magnesium 2.1 Blood Type B Positive Antibody Screen Negative Post-procedural complaints: none Patient Feedback: Patient satisfied with anesthetic care.
[2023-10-30 08:58] VITALS: BP 115/55; PULSE 81; TEMP 37.2; O2SAT 94
--- NOTE | 2023-10-30 09:15 | PCOTNOTE ---
The patient treatment was not able to be completed. Patient reports 10/10 pain and waiting on pain medication. Will plan to continue treatment per plan of care.
[2023-10-30] MEDS: busPIRone HCL 5 MG TABLET 15 MG PO (09:26)
[2023-10-30] MEDS: ACETAMINOPHEN 500 MG TABLET 1000 MG PO ×2 (09:27→15:23)
[2023-10-30] MEDS: CYCLOBENZAPRINE HCL 10 MG TABLET PO ×2 (09:27→15:24)
[2023-10-30] MEDS: ASPIRIN 325 MG TABLET PO (09:28)
[2023-10-30] MEDS: lisinopriL 20 MG TABLET 40 MG PO (09:28)
[2023-10-30] MEDS: FERROUS SULFATE 325 MG TABLET DR PO (09:28)
[2023-10-30] MEDS: PREGABALIN (*CRX) 75 MG CAPSULE 300 MG PO ×2 (09:28→17:40)
[2023-10-30] MEDS: NIFEdipine 30 MG TAB.ER.24 PO (09:29)
[2023-10-30] MEDS: ARIPiprazole 2 MG TABLET PO (09:29)
[2023-10-30] MEDS: polyethylene glycoL 3350 17 GM POWD.PACK PO (09:29)
[2023-10-30] MEDS: SENNA/DOCUSATE SODIUM TABLET 2 TAB PO ×2 (09:29→17:40)
[2023-10-30] MEDS: VENLAFAXINE HCL XR 75 MG CAP.ER.24H 225 MG PO (09:29)
[2023-10-30] MEDS: RIVAROXABAN 10 MG TABLET PO (09:29)
[2023-10-30] MEDS: FAMOTIDINE 20 MG TABLET PO (09:29)
[2023-10-30] MEDS: ANASTROZOLE (*CHEMO) 1 MG TABLET PO (09:29)
[2023-10-30] MEDS: ceFAZolin 2 GM/D5W 50 ML 2 GM/50 ML BAG IVPB (09:30)
[2023-10-30 09:33] VITALS: PULSE 88
[2023-10-30] MEDS: METOPROLOL SUCCINATE EXT REL 100 MG TABCR 200 MG PO (09:33)
[2023-10-30 12:58] VITALS: BP 125/68; PULSE 78; RESP 18; TEMP 36.7; O2SAT 94
[2023-10-30 15:23] VITALS: TEMP 36.7
== END 2023-10-30 18:30 | disposition home or self-care (01) ==
LOC: ANHSURGERY 06:14 → ANH2MED 11:30
PROVIDERS: PCP Internal Medicine Infectious Disease; Visit Provider Orthopaedic Surgery
PROC: (CPT 27487; principal; 2023-10-29 07:30)
DX: T84.022A Instability of internal right knee prosthesis, initial encounter (principal); D50.9 Iron deficiency anemia, unspecified; I10 Essential (primary) hypertension; M32.9 Systemic lupus erythematosus, unspecified; E07.9 Disorder of thyroid, unspecified; K21.9 Gastro-esophageal reflux disease without esophagitis; F32.A Depression, unspecified; Z85.3 Personal history of malignant neoplasm of breast; Y83.8 Other surgical procedures as the cause of abnormal reaction of the patient, or of later complication, without mention of misadventure at the time of the procedure; Z92.21 Personal history of antineoplastic chemotherapy; Z90.13 Acquired absence of bilateral breasts and nipples; Z92.3 Personal history of irradiation; Z98.1 Arthrodesis status; Z79.811 Long term (current) use of aromatase inhibitors
CPT/HCPCS: 27486; 36415; 73560; 80048; 83735; 85025; 86850; 86900; 86901; 87070; 87075; 87205; 97110; 97116; 97161; 97165; 97535; A9270; C1713; J0171; J0690; J1100; J1170; J1200; J1885; J2250; J2270; J2371; J2405; J2704; J2795; J3010; J3370; J7030; J7120

== ENCOUNTER 2024-01-03 13:00 | Outpatient (RCR) | payer OTHER, SELFPAY ==
--- NOTE | 2023-11-05 14:17 | PTOPEVAL1 ---
Assessment and note entered by Lázaro Girard, PT Evaluation Information Assessment Status Evaluation Diagnosis Right TKA Revision, Knee pain, Altered Gait Onset 10/29/23 Subjective Information Reports that she has been walking a bit without a cane. She has been losing sleep at night as she is having pain at night and with increased activity. She has history of back pain and surgery on sathya feet which also are affecting her walking. She has been using a walker following her foot surgery. She has stairs in her house and is able to use them but struggles. Reported Pain Level Pain Score 9: Self Report Assessment PT Clinical Summary Patient presents with signs and symptoms typical of total knee revision. Demonstrates edema, weakness, pain, and loss of ROM in both directions . Will benefit from skilled therapy to address deficits to normalize gait pattern and restore functional pain free mobility. Plan of Care Interventions Electrical Stimulation,Gait Training,Manual Therapy,Neuro Re-education,Therapeutic Activities, Therapeutic Exercise PT Services Indicated Yes Treatment Frequency and 2x/week for 12 visits Duration These treatments will address the objective and functional deficits as defined above. The patient will be advanced safely and appropriately in order for the patient to progress towards his/her prior level of function. Additional exercises will be introduced and as well as a comprehensive home exercise program upon discharge, if needed, ?to ensure carryover of functional gains achieved in the clinic. This treatment plan has been reviewed and agreement upon by the patient.
--- NOTE | 2023-11-05 14:17 | OPREHPOC ---
Outpatient Therapy Plan of Care This is a Multidisciplinary Plan of Care that may contain components documented by all disciplines (PT, OT, and ST.) PT Problem 1 PT Problem #1 Knowledge Deficit PT Goal 1 Goal [place] with HEP Target Visit 4 PT Problem 2 PT Problem #2 Pain PT Goal 1 Goal Ambulate for 300' or greater with no pain greater than 3/10 Target Visit 12 PT Problem 3 PT Problem #3 Edema PT Goal 1 Goal Demonstrate 1.5+ cm reduction in knee line edema indicating soft tissue healing Target Visit 12 PT Problem 4 PT Problem #4 Impaired Range of Motion PT Goal 1 Goal Demonstrate 0 degrees of R knee extension to achieve terminal stance of gait Target Visit 12 PT Goal 2 Goal Demonstrate 120 degrees of R knee flexion ROM to improve foot clearance with stairs Target Visit 12 PT Problem 5 PT Problem #5 Impaired Strength PT Goal 1 Goal Improve sathya hip flexion strength to 4+/5 to improve foot clearance Target Visit 12 PT Goal 2 Goal Improve R knee extension strength to 5/5 to improve stability with walking and ADLs Target Visit 12
--- NOTE | 2023-12-06 13:00 | PCPTNOTE ---
Pt canceled and did not give a reason.
--- NOTE | 2023-12-20 13:09 | PCPTNOTE ---
Pt canceled this date. AKS
--- NOTE | 2023-12-25 13:20 | PCPTNOTE ---
Pt canceled due to pain complaints.
--- NOTE | 2024-01-03 13:53 | PTOPEVAL1 ---
Assessment and note entered by Rodolfo Brown Evaluation Information Assessment Status Discharge Diagnosis right TKA revision, knee pain, altered gait Onset 10/29/23 Subjective Information Pt. reports she has been limited due to having been placed NWB on the left foot. She reports that she has been having complications from a prior foot surgery and will need to undergo a second surgery to remove hardware from her foot. She states that she will be having her foot surgery next week. she states that her right knee is a little better since beginning therapy. She states that she has not been exercising often with the right knee due to her complication with her foot. She states that she would like to be discharge from PT as she will be limited due to her upcoming left foot surgery. Reported Pain Level Pain Score 7: Self Report Assessment PT Clinical Summary Pt. progress is hindered due to recently being placed NWB over the left ankle. Pt. demonstrates excellent progress in regards to strength and ROM at the right knee and has met majority of goals in relationship to the knee. At this time pt. will continue with NWB exercise program she was provided on this date until her surgery next week. Plan of Care Interventions Electrical Stimulation,Gait Training,Manual Therapy,Neuro Re-education,Therapeutic Activities, Therapeutic Exercise PT Services Indicated No Treatment Frequency and 2x/week for 12 visits Duration These treatments will address the objective and functional deficits as defined above. The patient will be advanced safely and appropriately in order for the patient to progress towards his/her prior level of function. Additional exercises will be introduced and as well as a comprehensive home exercise program upon discharge, if needed, ?to ensure carryover of functional gains achieved in the clinic. This treatment plan has been reviewed and agreement upon by the patient.
== END 2024-01-03 14:05 | disposition home or self-care (01) ==
LOC: ANHPT 13:00
PROVIDERS: PCP Internal Medicine Infectious Disease; Visit Provider Orthopaedic Surgery
DX: Z48.89 Encounter for other specified surgical aftercare (principal); Z96.651 Presence of right artificial knee joint
CPT/HCPCS: 97014; 97016; 97110; 97140; 97161; 97530; 99199; G0283

== ENCOUNTER 2024-02-15 19:54 | Emergency (ER) | payer OTHER, SELFPAY ==
--- NOTE | ~2024-02-15 | XR_ITS ---
SINGLE AP VIEW PELVIS Ordering provider: Clem Munguia MD History: . Fall . Comparison: April 17, 2022 FINDINGS: BONES: No acute fracture or dislocation. HIP JOINT SPACES: Normal. SACROILIAC JOINT SPACES/LUMBAR SPINE: The sacroiliac joint spaces are normal. Mild degenerative [place] of the visualized lower lumbar spine. PUBIC SYMPHYSIS: Normal. SOFT TISSUES: Normal. IMPRESSION: No acute osseous abnormality pelvis. Reviewed, dictated and finalized at location [facility].
--- NOTE | ~2024-02-15 | CT_ITS ---
CT lumbar spine wo con Ordering provider: Clem Munguia MD History: 53 years Female with . Lower back pain, fall . Comparison: June 13, 2022 Technique: CT lumbar spine without contrast. Radiation reduction technique utilized. DLP 1131.1mGy. FINDINGS: VERTEBRAE: Normal height and alignment. No subluxation or visible acute fracture. DISC SPACES: Narrowing of the disc L2-L3, L3-L4. Vacuum phenomena seen and L5-S1. Multilevel facet j oint disease. T12-L1: No stenosis. L1-L2: No stenosis. L2-L3: No stenosis. Mild disc bulge. L3-L4: No stenosis. Mild diffuse disc bulge L4-L5: No stenosis. Mild diffuse disc bulge L5-S1: No stenosis. Diffuse disc bulge with bilateral narrowing of the foramina and the root dona john PARASPINOUS SOFT TISSUES: Mild atheromatous disease of the abdominal aorta. Bilateral sacroiliacs. IMPRESSION: Multilevel degenerative disc disease with multilevel disc bulges and no significant stenosis. Narrowi ng of the foramina with root compression at the level of L5-S1. Reviewed, dictated and finalized at location [facility]. IMPRESSION: Multilevel degenerative disc disease with multilevel disc bulges and no signifi cant stenosis. Narrowing of the foramina with root compression at the level of L5-S1.
[2024-02-15 20:07] VITALS: BP 143/80; PULSE 88; RESP 16; TEMP 36.6; O2SAT 97
[2024-02-15] MEDS: ACETAMINOPHEN 500 MG TABLET 1000 MG PO (21:14)
[2024-02-15] MEDS: KETOROLAC 30 MG/ML VIAL (*BKC) IM (21:14)
--- NOTE | 2024-02-15 22:44 | ED.GENADULT ---
HPI - General Adult General Chief complaint: Fall Stated complaint: head pain, back pain Time Seen by Provider: 02/15/24 20:44 History of Present Illness HPI narrative: this is a 53-year-old female with chronic pain syndromes on chronic opiate therapy presenting for lower back and head pain. Patient says she fell 2 days ago. She now has a bandlike pain across her lower back. She has been able to ambulate without difficulty and she has no urinary or bowel problems. No weakness to her lower extremities. Patient also has tenderness to her scalp. She has not struck her head. it is painful to touch her scalp. No redness or erythema or swelling. Related Data Home Medications Medication Instructions Recorded Confirmed venlafaxine 225 mg tablet,extended 225 mg PO QAM 10/13/19 11/29/23 release 24 hr pregabalin 300 mg capsule (Lyrica) 300 mg PO BID 05/18/20 11/29/23 aripiprazole 2 mg tablet 2 mg PO QAM 07/09/23 11/29/23 buspirone 15 mg tablet 15 mg PO BID 07/09/23 11/29/23 anastrozole 1 mg tablet 1 mg PO DAILY 10/11/23 11/29/23 aspirin 325 mg tablet 325 mg PO DAILY 10/11/23 11/29/23 famotidine 20 mg tablet 20 mg PO QAM 10/11/23 11/29/23 ferrous sulfate 325 mg (65 mg 325 mg PO DAILY 10/11/23 11/29/23 iron) tablet (FeroSul) hydroxyzine HCl 50 mg tablet 100 mg PO HS 10/11/23 11/29/23 ketoconazole 2 % topical cream 1 applic topical DAILY 10/11/23 11/29/23 lisinopril 40 mg tablet 40 mg PO QAM 10/11/23 11/29/23 metoprolol succinate 200 mg 200 mg PO QAM 10/11/23 11/29/23 tablet,extended release 24 hr multivitamin 1 tablet PO DAILY 10/11/23 11/29/23 nifedipine 30 mg tablet,extended 30 mg PO QAM 10/11/23 11/29/23 release trazodone 150 mg tablet 150 mg PO HS 10/11/23 11/29/23 vitamin E 1,000 unit tablet 1 tablet PO DAILY 10/11/23 11/29/23 hydrocodone bitartrate 20 mg 20 mg PO DAILY 11/29/23 11/29/23 tablet,crush resist,extended rel. 24hr (Hysingla ER) Allergies Allergy/AdvReac Type Severity Reaction Status Date / Time adhesive tape AdvReac Unknown Rash, Verified 11/29/23 10:08 REDNESS, BURNING PMFSH Past Medical History Medical History Breast cancer Status post bilateral mastectomy and chemo radiation. Depression Gastroesophageal reflux disease Hypertension Iron deficiency anemia History of blood transfusion. Sepsis Systemic lupus erythematosus Thyroid disease Surgical History Surgical History History of appendectomy History of arthroplasty of right knee History of arthroscopy of right knee History of bilateral mastectomy History of carpal tunnel release History of cholecystectomy History of endoscopic sinus surgery History of fusion of cervical spine History of hysterectomy History of knee surgery 11/08/23- Rev right TKA History of repair of right rotator cuff Port-A-Cath in place Status post transverse rectus abdominis muscle flap breast reconstruction Status post trigger finger release Family History Family History Other Family history of malignant neoplasm Hypertension Social History Social History Social History: Surrogate medical decision maker: Domingo Mcnulty, spouse. Code status: Full code. Smoking status: Never smoker Second hand tobacco smoke exposure: No Additional smoking assessment comments: chewed tobacco occassionally as a teen Alcohol intake: never Substance use: never Substance use type: does not use Do You Feel Safe in your Home?: Yes Lack of Transportation: No Lack of Food: Never True Current Housing: I Have Housing Concerned About Future Housing: No Difficulty Paying Gas/Electric Bills: No Difficulty Paying for Meds: No Currently Unemployed: YES Education: High School Diploma/GED Difficulty w/ Childcare or Family Care:
[2024-02-15 22:58] VITALS: BP 114/70; PULSE 81; RESP 19; O2SAT 95
== END 2024-02-15 23:07 | disposition home or self-care (01) ==
PROVIDERS: Emergency Provider Emergency Medicine; PCP Internal Medicine Infectious Disease
DX: M54.50 Low back pain, unspecified (principal); G89.4 Chronic pain syndrome; D50.9 Iron deficiency anemia, unspecified; M32.9 Systemic lupus erythematosus, unspecified; E07.9 Disorder of thyroid, unspecified; F32.A Depression, unspecified; Z98.1 Arthrodesis status; Z96.651 Presence of right artificial knee joint; Z85.3 Personal history of malignant neoplasm of breast; Z92.21 Personal history of antineoplastic chemotherapy; Z92.3 Personal history of irradiation; Z87.891 Personal history of nicotine dependence; Z90.13 Acquired absence of bilateral breasts and nipples; Z90.49 Acquired absence of other specified parts of digestive tract; M51.36 Other intervertebral disc degeneration, lumbar region; Z79.899 Other long term (current) drug therapy; Z79.82 Long term (current) use of aspirin
CPT/HCPCS: 72131; 72170; 96372; 99284; A9270; J1885

== ENCOUNTER 2024-04-07 16:24 | Outpatient (CLI) | payer OTHER, SELFPAY ==
[2024-04-07 16:54] LABS: Basophils Percent Auto 0.5 % (0.2-1.2); Eosinophils Absolute Auto 0.1 K/mm3 (0-0.3); Hematocrit 42.8 % (37.0-47.0); Hemoglobin 13.2 g/dL (12.0-15.0); Immature Granulocyte Absolute 0.01 K/mm3 (0.00-0.031); Immature Granulocyte Percent A 0.2 % (0-0.5); Lymphocytes Absolute Auto 2.15 K/mm3 (0.9-3.2); Lymphocytes Percent Auto 36.4 % (18.3-44.2); Mean Corpuscular HGB Conc 30.8 g/dl (32-36); Mean Corpuscular Hemoglobin 27.3 pg (26-34); Mean Corpuscular Volume 88.6 fl (80-100); Mean Platelet Volume 8.5 fl (7.4-10.4); Monocytes Absolute Auto 0.4 K/mm3 (0.1-0.6); Monocytes Percent Auto 6.9 % (2.6-8.5); Neutrophils Absolute Auto 3.3 K/mm3 (1.3-6.7); Platelet Count Result 260 k/mm3 (150-375); Red Blood Count 4.83 M/mm3 (4.2-5.4); Red Cell Distribution Width 15.6 % (11.5-14.5); White Blood Count 5.9 K/mm3 (4.5-10.0)
[2024-04-07 18:36] LABS: Alanine Aminotransferase 23 U/L (6-35); Albumin Level 4.7 g/dL (3.5-5.1); Alkaline Phosphatase 75 U/L (38-126); Anion Gap 14 mmol/L (4-12); Aspartate Amino Transferase 29 U/L (14-36); Bilirubin,Total 0.5 mg/dL (0.2-1.3); Blood Urea Nitrogen 12 mg/dL (7-17); Calcium 9.1 mg/dL (8.4-10.2); Carbon Dioxide 23 mmol/L (22-30); Chloride 100 mmol/L (98-107); Estimated Glomerular Filt Rate > 60; Glucose 122 mg/dL (65-110); Potassium 3.6 mmol/L (3.4-5.0); Sodium 137 mmol/L (137-145)
[2024-04-09 05:54] LABS: CA 15-3 10 U/mL (<32)
== END 2024-04-07 16:25 | disposition home or self-care (01) ==
LOC: ANHLAB 16:27
PROVIDERS: PCP Internal Medicine Infectious Disease; Visit Provider Internal Medicine Hematology & Oncology
DX: C50.412 Malignant neoplasm of upper-outer quadrant of left female breast (principal); Z17.0 Estrogen receptor positive status [ER+]
CPT/HCPCS: 36415; 80053; 85025; 86300

== ENCOUNTER 2024-04-17 17:18 | Emergency (ER) | payer OTHER, SELFPAY ==
[2024-04-17 17:19] VITALS: BP 161/81; PULSE 69; RESP 20; TEMP 36.4; O2SAT 98
--- NOTE | 2024-04-17 17:28 | ED.SKABFB ---
HPI - Skin/Abscess/Foreign Bdy General Chief complaint: Skin/Abscess/Foreign Body Stated complaint: abcess on inner r thigh Time Seen by Provider: 04/17/24 17:27 Source: patient Mode of arrival: ambulatory Limitations: no limitations History of Present Illness HPI narrative: Patient is a 54 y/o female who presents to the ED with c/o abscess. Patient reports she 1st noticed a small abscess to her right inner thigh today while showering. States the area is very painful. Worse with movement. States her attempted to pop the abscess, but was not able to express any drainage. denies history of similar abscesses. Denies fevers. Denies history of diabetes. Related Data Home Medications Medication Instructions Recorded Confirmed venlafaxine 225 mg tablet,extended 225 mg PO QAM 10/13/19 11/29/23 release 24 hr pregabalin 300 mg capsule (Lyrica) 300 mg PO BID 05/18/20 11/29/23 aripiprazole 2 mg tablet 2 mg PO QAM 07/09/23 11/29/23 buspirone 15 mg tablet 15 mg PO BID 07/09/23 11/29/23 anastrozole 1 mg tablet 1 mg PO DAILY 10/11/23 11/29/23 aspirin 325 mg tablet 325 mg PO DAILY 10/11/23 11/29/23 famotidine 20 mg tablet 20 mg PO QAM 10/11/23 11/29/23 ferrous sulfate 325 mg (65 mg 325 mg PO DAILY 10/11/23 11/29/23 iron) tablet (FeroSul) hydroxyzine HCl 50 mg tablet 100 mg PO HS 10/11/23 11/29/23 ketoconazole 2 % topical cream 1 applic topical DAILY 10/11/23 11/29/23 lisinopril 40 mg tablet 40 mg PO QAM 10/11/23 11/29/23 metoprolol succinate 200 mg 200 mg PO QAM 10/11/23 11/29/23 tablet,extended release 24 hr multivitamin 1 tablet PO DAILY 10/11/23 11/29/23 nifedipine 30 mg tablet,extended 30 mg PO QAM 10/11/23 11/29/23 release trazodone 150 mg tablet 150 mg PO HS 10/11/23 11/29/23 vitamin E 1,000 unit tablet 1 tablet PO DAILY 10/11/23 11/29/23 hydrocodone bitartrate 20 mg 20 mg PO DAILY 11/29/23 11/29/23 tablet,crush resist,extended rel. 24hr (Hysingla ER) Allergies Allergy/AdvReac Type Severity Reaction Status Date / Time adhesive tape AdvReac Unknown Rash, Verified 04/17/24 17:43 REDNESS, BURNING Review of Systems Review of Systems: All systems reviewed & are unremarkable except as noted in HPI. All systems reviewed & are unremarkable except as noted in HPI and below PMFSH Past Medical History Medical History Breast cancer Status post bilateral mastectomy and chemo radiation. Depression Gastroesophageal reflux disease Hypertension Iron deficiency anemia History of blood transfusion. Sepsis Systemic lupus erythematosus Thyroid disease Surgical History Surgical History History of appendectomy History of arthroplasty of right knee History of arthroscopy of right knee History of bilateral mastectomy History of carpal tunnel release History of cholecystectomy History of endoscopic sinus surgery History of fusion of cervical spine History of hysterectomy History of knee surgery 11/08/23- Rev right TKA History of repair of right rotator cuff Port-A-Cath in place Status post transverse rectus abdominis muscle flap breast reconstruction Status post trigger finger release Family History Family History Other Family history of malignant neoplasm Hypertension Social History Social History Social History: Surrogate medical decision maker: Domingo [place], spouse. Code status: Full code. Smoking status: Never smoker Second hand tobacco smoke exposure: No Additional smoking assessment comments: chewed tobacco occassionally as a teen Alcohol intake: never Substance use: never Substance use type: does not use Do You Feel Safe in your Home?: Yes Lack of Transportation: No Lack of Food: Never True Current Housing: I Have H
[2024-04-17] MEDS: HYDROcodone/acetaminophen (*CRX) 5-325 MG TABLET 1 TAB PO (17:40)
[2024-04-17] MEDS: SULFAMETHOXAZOLE/TRIMETHOPRIM 800/160 MG DS TABLET 1 TAB PO (17:40)
== END 2024-04-17 18:30 | disposition home or self-care (01) ==
PROVIDERS: Emergency Provider Physician Assistant; PCP Internal Medicine Infectious Disease
DX: L02.415 Cutaneous abscess of right lower limb (principal); Z85.3 Personal history of malignant neoplasm of breast; F32.A Depression, unspecified; K21.9 Gastro-esophageal reflux disease without esophagitis; I10 Essential (primary) hypertension; D64.9 Anemia, unspecified
CPT/HCPCS: 10060; 87070; 87081; 87205; 99283; A9270

== ENCOUNTER 2024-04-26 17:31 | Emergency (ER) | payer OTHER, SELFPAY ==
--- NOTE | ~2024-04-26 | CT_ITS ---
EXAMINATION: CT brain wo con DATE: 04/27/2024 04:30 INDICATION: Intractable headache. TECHNIQUE: Computed tomography (CT) of the head was performed without intravenous contrast. The mA wa s adjusted according to patient size. Iterative reconstruction technique was employed. The dose-lengt h product was 605.33 mGy-cm. COMPARISON: Head CT 06/18/2023 FINDINGS: There is no intracranial hemorrhage, acute infarction, or abnormal intracranial mass lesion . The ventricles are normal in size. There is minimal mucosal thickening in the paranasal sinuses. Th e mastoid air cells are normal. The orbits are normal. IMPRESSION: 1. Normal brain. Reviewed, dictated and finalized at location [facility]. IMPRESSION: 1. Normal brain.
[2024-04-26 17:50] VITALS: BP 170/102; PULSE 88; RESP 16; TEMP 36.8; O2SAT 98
[2024-04-26 21:35] VITALS: BP 180/104; PULSE 79; RESP 17; O2SAT 100
--- NOTE | 2024-04-27 01:33 | ED.NAVMDI ---
HPI - Nausea/Vomiting/Diarrhea General Chief complaint: Nausea/Vomiting/Diarrhea Stated complaint: headache, abd pain, n/v Time Seen by Provider: 04/27/24 01:31 Source: patient and family Mode of arrival: ambulatory Limitations: no limitations History of Present Illness HPI Narrative: Patient presents with complaing of a headache, abdominal pain, nausea, vomiting, and chills of 2 weeks duration. She used to get headaches a long time ago but states that this feels different. Has been trying Tylenol sinus tablets, allergy pills. Had initially presented to [facility] for symptoms where she states her blood pressure was elevated. She was roomed but after waiting some time in the room without seeing a nurse or provider, she stepped out into the [facility] and they seemed confused about who she was and that she was there so she left to come here. No photophobia but headache is associated with phonophobia. No vomiting. Also having rhinrrorhea and some epigastric abdominal pain as well as a cough. No trauma, not on anticoagulation. Had had a borderline fever. No sick contacts. Endorses the back of her head hearing. No unilateral symptoms. Related Data Home Medications Medication Instructions Recorded Confirmed venlafaxine 225 mg tablet,extended 225 mg PO QAM 10/13/19 11/29/23 release 24 hr pregabalin 300 mg capsule (Lyrica) 300 mg PO BID 05/18/20 11/29/23 aripiprazole 2 mg tablet 2 mg PO QAM 07/09/23 11/29/23 buspirone 15 mg tablet 15 mg PO BID 07/09/23 11/29/23 anastrozole 1 mg tablet 1 mg PO DAILY 10/11/23 11/29/23 aspirin 325 mg tablet 325 mg PO DAILY 10/11/23 11/29/23 famotidine 20 mg tablet 20 mg PO QAM 10/11/23 11/29/23 ferrous sulfate 325 mg (65 mg 325 mg PO DAILY 10/11/23 11/29/23 iron) tablet (FeroSul) hydroxyzine HCl 50 mg tablet 100 mg PO HS 10/11/23 11/29/23 ketoconazole 2 % topical cream 1 applic topical DAILY 10/11/23 11/29/23 lisinopril 40 mg tablet 40 mg PO QAM 10/11/23 11/29/23 metoprolol succinate 200 mg 200 mg PO QAM 10/11/23 11/29/23 tablet,extended release 24 hr multivitamin 1 tablet PO DAILY 10/11/23 11/29/23 nifedipine 30 mg tablet,extended 30 mg PO QAM 10/11/23 11/29/23 release trazodone 150 mg tablet 150 mg PO HS 10/11/23 11/29/23 vitamin E 1,000 unit tablet 1 tablet PO DAILY 10/11/23 11/29/23 hydrocodone bitartrate 20 mg 20 mg PO DAILY 11/29/23 11/29/23 tablet,crush resist,extended rel. 24hr (Hysingla ER) Allergies Allergy/AdvReac Type Severity Reaction Status Date / Time adhesive tape AdvReac Unknown Rash, Verified 04/17/24 17:43 REDNESS, BURNING PMFSH Past Medical History Medical History Breast cancer Status post bilateral mastectomy and chemo radiation. Depression Gastroesophageal reflux disease Hypertension Iron deficiency anemia History of blood transfusion. Sepsis Systemic lupus erythematosus Thyroid disease Surgical History Surgical History History of appendectomy History of arthroplasty of right knee History of arthroscopy of right knee History of bilateral mastectomy History of carpal tunnel release History of cholecystectomy History of endoscopic sinus surgery History of fusion of cervical spine History of hysterectomy History of knee surgery 11/08/23- Rev right TKA History of repair of right rotator cuff Port-A-Cath in place Status post transverse rectus abdominis muscle flap breast reconstruction Status post trigger finger release Family History Family History Other Family history of malignant neoplasm Hypertension Social History Social History Social History: Surrogate medical decision maker: Domingo Mcnulty, spouse. Code status: Full code. Smoking status: Never smoker Second hand tobacco smoke exposure: No Additiona
[2024-04-27] MEDS: diphenhydrAMINE HCl INJ 50 MG/ML VIAL 25 MG IV PUSH (03:00)
[2024-04-27] MEDS: PROCHLORPERAZINE EDISYLATE 10 MG/2 ML VIAL IV PUSH (03:00)
[2024-04-27] MEDS: KETOROLAC 15 MG/ML VIAL (*BKC) IV PUSH (03:00)
[2024-04-27] MEDS: ACETAMINOPHEN 500 MG TABLET 1000 MG PO (03:01)
[2024-04-27 03:04] LABS: Add Urine Microscopic? YES; Appearance Urine Clear (Clear); Bacteria Urine None Seen /hpf; Bilirubin Urine Negative (Negative); Blood Urine Negative (Negative); Color Urine Yellow (Yellow); Glucose Urine UA Negative (Negative); Ketones Urine Negative (Negative); Leukocyte Esterase Ur Trace LEU/UL (Negative); Nitrate Urine Negative (Negative); Non Pathogenic Casts 0-2; Protein Urine Negative (Negative); RBC Urine 0-2 /hpf (0-2); Specific Grav Ur 1.013 (1.001-1.035); Squamous Epithelial Cell Urine None Seen /hpf (Few); Urobilinogen Urine 0.2 mg/dL (<2.0); WBC Urine 0-5 /hpf (0-3); pH Urine 6.5 (5.0-9.0)
[2024-04-27] MEDS: SODIUM CHLORIDE 0.9% IV 1,000 ML 999 ML IV CONT (03:26)
[2024-04-27 04:21] LABS: Influenza A QL RT-PCR Negative (Negative); Influenza B QL RT-PCR Negative (Negative); RSV RNA, RT-PCR Negative (Negative); SARS-CoV-2 RNA PCR Negative (Negative)
[2024-04-27] MEDS: MAGNESIUM SULF 1 GM/D5W 100 ML 1 GM/100 ML BAG IVPB (05:05)
[2024-04-27 05:18] LABS: Basophils Percent Auto 0.5 % (0.2-1.2); Eosinophils Absolute Auto 0.1 K/mm3 (0-0.3); Eosinophils Percent Auto 1.7 % (0-4.4); Hematocrit 39.6 % (37.0-47.0); Hemoglobin 12.4 g/dL (12.0-15.0); Immature Granulocyte Absolute 0.02 K/mm3 (0.00-0.031); Immature Granulocyte Percent A 0.3 % (0-0.5); Lymphocytes Absolute Auto 2.49 K/mm3 (0.9-3.2); Lymphocytes Percent Auto 39.3 % (18.3-44.2); Mean Corpuscular HGB Conc 31.3 g/dl (32-36); Mean Corpuscular Hemoglobin 26.9 pg (26-34); Mean Corpuscular Volume 85.9 fl (80-100); Mean Platelet Volume 8.4 fl (7.4-10.4); Monocytes Absolute Auto 0.5 K/mm3 (0.1-0.6); Monocytes Percent Auto 7.1 % (2.6-8.5); Neutrophils Absolute Auto 3.2 K/mm3 (1.3-6.7); Neutrophils Percent Auto 51.1 % (45.5-73.1); Platelet Count Result 256 k/mm3 (150-375); Red Blood Count 4.61 M/mm3 (4.2-5.4); Red Cell Distribution Width 15.6 % (11.5-14.5); White Blood Count 6.3 K/mm3 (4.5-10.0)
[2024-04-27 05:29] LABS: Magnesium 1.9 mg/dL (1.6-2.3)
[2024-04-27 05:44] LABS: Alanine Aminotransferase 19 U/L (6-35); Albumin Level 4.3 g/dL (3.5-5.1); Alkaline Phosphatase 76 U/L (38-126); Anion Gap 13 mmol/L (4-12); Aspartate Amino Transferase 27 U/L (14-36); Bilirubin,Total 0.6 mg/dL (0.2-1.3); Blood Urea Nitrogen 6 mg/dL (7-17); Calcium 8.8 mg/dL (8.4-10.2); Carbon Dioxide 25 mmol/L (22-30); Chloride 104 mmol/L (98-107); Estimated CRCL calculation 71 ml/min; Estimated Glomerular Filt Rate > 60; Glucose 103 mg/dL (65-110); Lipase 114 U/L (23-300); Potassium 3.7 mmol/L (3.4-5.0); Sodium 142 mmol/L (137-145)
[2024-04-27 05:53] VITALS: BP 127/91; PULSE 94; RESP 16; O2SAT 100
[2024-04-27 05:57] VITALS: PULSE 77; RESP 20; TEMP 36.6; O2SAT 99
[2024-04-27] MEDS: dexAMETHasone 2 MG TABLET 10 MG PO (05:59)
== END 2024-04-27 06:11 | disposition home or self-care (01) ==
PROVIDERS: Emergency Provider Student in an Organized Health Care Education/Training Program; PCP Internal Medicine Infectious Disease
DX: R51.9 Headache, unspecified (principal); I10 Essential (primary) hypertension; D50.9 Iron deficiency anemia, unspecified; M32.10 Systemic lupus erythematosus, organ or system involvement unspecified; E07.9 Disorder of thyroid, unspecified; K21.9 Gastro-esophageal reflux disease without esophagitis; Z96.651 Presence of right artificial knee joint; Z98.1 Arthrodesis status; Z85.3 Personal history of malignant neoplasm of breast; Z92.3 Personal history of irradiation; Z92.21 Personal history of antineoplastic chemotherapy; Z87.891 Personal history of nicotine dependence; Z90.13 Acquired absence of bilateral breasts and nipples; Z90.49 Acquired absence of other specified parts of digestive tract; Z79.82 Long term (current) use of aspirin; Z79.899 Other long term (current) drug therapy
CPT/HCPCS: 36415; 70450; 80053; 81001; 83690; 83735; 85025; 87637; 96361; 96365; 96375; 99284; A9270; J0780; J1200; J1885; J3475; J7030; J8540

== ENCOUNTER 2024-05-09 16:44 | Outpatient (CLI) | payer OTHER, SELFPAY ==
--- NOTE | ~2024-05-09 | CT_ITS ---
EXAMINATION:CT diagnostic chest wo con DATE: 05/09/2024 16:59 INDICATION: Dyspnea on exertion. Cough. TECHNIQUE: Computed tomography (CT) of the chest was performed without intravenous contrast. Automate d exposure control and iterative reconstruction technique were employed. The dose-length product (DLP ) was 292.45 mGy-cm. COMPARISON: None. FINDINGS: The lungs demonstrate mild atelectasis. Calcified left lung nodules and calcified left alex r lymph nodes are consistent with old granulomatous disease. No pleural effusion. There is a left fredo ulder arthroplasty. Breast implants are noted. There are changes of cholecystectomy. Calcifications i n the spleen are consistent with old granulomatous disease. There is mild thoracic spondylosis. IMPRESSION: 1. No significant cardiopulmonary disease. Reviewed, dictated and finalized at location A.
== END 2024-05-09 16:45 | disposition home or self-care (01) ==
LOC: ANHIMG 16:45
PROVIDERS: PCP Internal Medicine Infectious Disease; Visit Provider Internal Medicine Pulmonary Disease
DX: T78.40XA Allergy, unspecified, initial encounter (principal); R05.9 Cough, unspecified; D89.9 Disorder involving the immune mechanism, unspecified; C50.912 Malignant neoplasm of unspecified site of left female breast; J43.9 Emphysema, unspecified; R06.09 Other forms of dyspnea
CPT/HCPCS: 71250

== ENCOUNTER 2024-05-19 10:14 | Outpatient (CLI) | payer OTHER, SELFPAY ==
--- NOTE | 2024-05-20 09:17 | WPDPFTINT ---
PFT Procedure Performed PFT Procedure Performed Spirometry with Pre/Post Bronchodilator Plethysmography (Lung Vol) Diffusing Cap (DLCO) Flow Vol Loop PFT Interpretation Lung volumes were measured using body plethysmography. The reduced expiratory reserve volume (ERV) may be attributed to obesity. The other lung volumes are unremarkable. Spirometry results demonstrated normal expiratory flow rates and a FEV1 to FVC ratio of 77%. After bronchodilator administration, there was no significant change in expiratory flow rates. Lung diffusion capacity was normal at 93% of the predicted value, and the flow-volume loop showed no abnormalities. Impression: Spirometry, lung volumes, and lung diffusion capacity all within the normal range.
== END 2024-05-19 10:15 | disposition home or self-care (01) ==
LOC: ANHPFT 10:14
PROVIDERS: PCP Internal Medicine Infectious Disease; Visit Provider Internal Medicine Pulmonary Disease
DX: R05.9 Cough, unspecified (principal); R06.09 Other forms of dyspnea; D89.9 Disorder involving the immune mechanism, unspecified; T78.40XA Allergy, unspecified, initial encounter; C50.912 Malignant neoplasm of unspecified site of left female breast
CPT/HCPCS: 94060; 94726; 94729

== ENCOUNTER 2024-05-24 14:49 | Emergency (ER) | payer OTHER, SELFPAY ==
--- NOTE | ~2024-05-24 | CT_ITS ---
EXAMINATION: CT abdomen pelvis w con DATE: 05/24/2024 20:18 INDICATION: Right-sided abdominal pain TECHNIQUE: Computed tomography (CT) of the abdomen and pelvis was performed with 100 CC Omnipaque 350 intravenous contrast. Automated exposure control and iterative reconstruction technique were employe d. Exam dose: 878.51 mGy-cm total exam DLP. COMPARISON: 06/18/2023 CT abdomen pelvis FINDINGS: There is minimal bilateral dependent lower lobe atelectasis. The included lung bases are cl ear of infiltrate or consolidation. Mild cardiomegaly. No pericardial or pleural effusion. Bilateral breast implants. Diffuse hepatic steatosis. No hepatic space-occupying mass lesion. Status post cholecystectomy. No bile duct or pancreatic duct dilatation. No pancreatic mass lesion or calcification. Small spleen with calcified splenic granulomas. Normal morphology of the adrenal glands. No renal mass lesion or urinary tract calculus is noted on either side. No hydroureteronephrosis. The urinary bladder is relatively evacuated, essentially unremarkable. Status post hysterectomy. There is atherosclerotic calcification but normal caliber of the abdominal aorta. No intraperitoneal or retroperitoneal or pelvic mass lesion or adenopathy or ascites is noted. No bowel obstruction. The cecum extends down into the lower posterior right pelvis. The appendix is n ot visualized. No intraperitoneal free air. Small fat-containing umbilical hernia. No suspicious osteolytic or osteoblastic lesions. Prominent degenerative change of the lumbar apophyseal joints. IMPRESSION: Mild cardiomegaly Hepatic steatosis Status post cholecystectomy Status post hysterectomy Reviewed, dictated and finalized at [facility]. Reviewed, dictated and finalized at location [facility].
[2024-05-24 14:58] VITALS: BP 156/114; PULSE 101; RESP 18; TEMP 36.5; O2SAT 100
--- NOTE | 2024-05-24 16:24 | PC.NURSE ---
This RN attempted peripheral IV access x1 with no success. Pt states Char usually does my IVs. I'm a hard stick. Vascular access called to bedside for peripheral IV placement.
--- NOTE | 2024-05-24 16:52 | ED.ABDPAIN ---
HPI - Abdominal Pain General Chief Complaint: Abdominal Pain <Deric Finch MD - Last Filed: 05/25/24 10:31> Stated Complaint: right flank pain <Deric Finch MD - Last Filed: 05/25/24 10:31> Time Seen by Provider: 05/24/24 15:50 <Deric Finch MD - Last Filed: 05/25/24 10:31> History of Present Illness HPI narrative: Patient is a 54-year-old female who presents to the emergency department this afternoon complaining of right upper quadrant and right flank. Patient states that this pain started approximately 2 weeks ago and has been progressively getting worse. She is also complaining of diarrhea associated with the pain and states that she has been going to the bathroom approximately 5-6 times per day. Admits to mild nausea and vomiting, denies any chest pain or shortness of breath and denies any urinary symptoms including dysuria or hematuria. No additional symptoms or concerns at this time. <Deric Finch MD - Last Filed: 05/25/24 10:31> Related Data Home Medications: Home Medications Medication Instructions Recorded Confirmed venlafaxine 225 mg tablet,extended 225 mg PO QAM 10/13/19 11/29/23 release 24 hr pregabalin 300 mg capsule (Lyrica) 300 mg PO BID 05/18/20 11/29/23 aripiprazole 2 mg tablet 2 mg PO QAM 07/09/23 11/29/23 buspirone 15 mg tablet 15 mg PO BID 07/09/23 11/29/23 anastrozole 1 mg tablet 1 mg PO DAILY 10/11/23 11/29/23 aspirin 325 mg tablet 325 mg PO DAILY 10/11/23 11/29/23 famotidine 20 mg tablet 20 mg PO QAM 10/11/23 11/29/23 ferrous sulfate 325 mg (65 mg 325 mg PO DAILY 10/11/23 11/29/23 iron) tablet (FeroSul) hydroxyzine HCl 50 mg tablet 100 mg PO HS 10/11/23 11/29/23 ketoconazole 2 % topical cream 1 applic topical DAILY 10/11/23 11/29/23 lisinopril 40 mg tablet 40 mg PO QAM 10/11/23 11/29/23 metoprolol succinate 200 mg 200 mg PO QAM 10/11/23 11/29/23 tablet,extended release 24 hr multivitamin 1 tablet PO DAILY 10/11/23 11/29/23 nifedipine 30 mg tablet,extended 30 mg PO QAM 10/11/23 11/29/23 release trazodone 150 mg tablet 150 mg PO HS 10/11/23 11/29/23 vitamin E 1,000 unit tablet 1 tablet PO DAILY 10/11/23 11/29/23 hydrocodone bitartrate 20 mg 20 mg PO DAILY 11/29/23 11/29/23 tablet,crush resist,extended rel. 24hr (Hysingla ER) <Deric Finch MD - Last Filed: 05/25/24 10:31> Allergies/Adverse Reactions: Allergies Allergy/AdvReac Type Severity Reaction Status Date / Time adhesive tape AdvReac Unknown Rash, Verified 04/17/24 17:43 REDNESS, BURNING <Deric Finch MD - Last Filed: 05/25/24 10:31> Review of Systems Review of Systems: All systems are reviewed and are negative unless stated otherwise in the HPI. <Deric Finch MD - Last Filed: 05/25/24 10:31> PMFSH Past Medical History Medical History: Medical History Breast cancer Status post bilateral mastectomy and chemo radiation. Depression Gastroesophageal reflux disease Hypertension Iron deficiency anemia History of blood transfusion. Sepsis Systemic lupus erythematosus Thyroid disease <Deric Finch MD - Last Filed: 05/25/24 10:31> Surgical History Surgical History: Surgical History History of appendectomy History of arthroplasty of right knee History of arthroscopy of right knee History of bilateral mastectomy History of carpal tunnel release History of cholecystectomy History of endoscopic sinus surgery History of fusion of cervical spine History of hysterectomy History of knee surgery 11/08/23- Rev right TKA History of repair of right rotator cuff Port-A-Cath in place Status post transverse rectus abdominis muscle flap breast reconstruction Status post trigger finger release <Deric Finch MD - Last Filed: 05/25/24 10:31> Family History Family History: Family History (Reviewed 05/05
[2024-05-24 17:31] LABS: Basophils Percent Auto 0.4 % (0.2-1.2); Eosinophils Absolute Auto 0.1 K/mm3 (0-0.3); Eosinophils Percent Auto 0.8 % (0-4.4); Hematocrit 42.8 % (37.0-47.0); Immature Granulocyte Absolute 0.02 K/mm3 (0.00-0.031); Immature Granulocyte Percent A 0.3 % (0-0.5); Lymphocytes Absolute Auto 3.03 K/mm3 (0.9-3.2); Lymphocytes Percent Auto 42.4 % (18.3-44.2); Mean Corpuscular HGB Conc 32.7 g/dl (32-36); Mean Corpuscular Hemoglobin 28.2 pg (26-34); Mean Corpuscular Volume 86.3 fl (80-100); Mean Platelet Volume 8.9 fl (7.4-10.4); Monocytes Absolute Auto 0.6 K/mm3 (0.1-0.6); Neutrophils Absolute Auto 3.4 K/mm3 (1.3-6.7); Neutrophils Percent Auto 48.1 % (45.5-73.1); Platelet Count Result 283 k/mm3 (150-375); Red Blood Count 4.96 M/mm3 (4.2-5.4); Red Cell Distribution Width 16.5 % (11.5-14.5); White Blood Count 7.1 K/mm3 (4.5-10.0)
--- NOTE | 2024-05-24 17:41 | PC.NURSE ---
Pt c/o 06/12 right side abdominal pain. Pt requesting pharmacological intervention. MD Finch notified. See MAR.
[2024-05-24 17:53] VITALS: BP 172/93; PULSE 70; RESP 16; O2SAT 99
[2024-05-24] MEDS: ONDANSETRON INJ 4 MG/2 ML VIAL IV PUSH ×2 (17:53→19:34)
[2024-05-24] MEDS: MORPHINE SULFATE (*CRX) 4 MG/ML INJ IV PUSH (17:54)
--- NOTE | 2024-05-24 19:11 | PC.NURSE ---
Pt upset about delay in CT scan. Pt educated that it was d/t lab work needed for scan clotting. Lab re-drawn. Pt continues to complain of 10/10 pain despite intervention. MD Finch at bedside speaking with pt. See MAR for additional intervention. Pt thanked staff for addressing her concerns.
[2024-05-24 19:33] VITALS: BP 170/105; PULSE 76; RESP 20; O2SAT 96
[2024-05-24] MEDS: HYDROmorphone HCL INJ (*CRX) 1 MG/ML SYR 0.5 MG IV PUSH ×2 (19:34→21:20)
[2024-05-24 19:35] LABS: Alanine Aminotransferase 44 U/L (6-35); Albumin Level 4.4 g/dL (3.5-5.1); Alkaline Phosphatase 77 U/L (38-126); Anion Gap 11 mmol/L (4-12); Aspartate Amino Transferase 44 U/L (14-36); Bilirubin,Total 0.4 mg/dL (0.2-1.3); Blood Urea Nitrogen 13 mg/dL (7-17); Calcium 9.1 mg/dL (8.4-10.2); Carbon Dioxide 25 mmol/L (22-30); Chloride 104 mmol/L (98-107); Estimated CRCL calculation 71 ml/min; Estimated Glomerular Filt Rate > 60; Glucose 100 mg/dL (65-110); Lipase 92 U/L (23-300); Magnesium 2.1 mg/dL (1.6-2.3); Potassium 4.3 mmol/L (3.4-5.0); Sodium 140 mmol/L (137-145)
--- NOTE | 2024-05-24 19:40 | PC.NURSE ---
CT notified that CMP has resulted and pt is ready for scan.
--- NOTE | 2024-05-24 20:22 | PC.NURSE ---
Pt had a full hysterectomy. Pt states I just peed and is unable to provide urine sample at this time. CT notified.
[2024-05-24 21:21] VITALS: BP 159/90; PULSE 73; RESP 16; O2SAT 98
[2024-05-24 21:24] LABS: Add Urine Microscopic? NO; Appearance Urine Clear (Clear); Bilirubin Urine Negative (Negative); Blood Urine Negative (Negative); Color Urine Yellow (Yellow); Glucose Urine UA Negative (Negative); Ketones Urine Negative (Negative); Leukocyte Esterase Ur Negative LEU/UL (Negative); Nitrate Urine Negative (Negative); Protein Urine Negative (Negative); Specific Grav Ur > 1.045 (1.001-1.035); Urobilinogen Urine 0.2 mg/dL (<2.0)
[2024-05-24] MEDS: BELLADONNA ALK/PHENOB ELIX 10 ML, MAG HYDROX/ALUMINUM HYD/SIMETH 30 ML, LIDOCAINE HCL 2... PO (22:05)
[2024-05-24 23:12] VITALS: BP 150/82; PULSE 84; RESP 16; O2SAT 96
== END 2024-05-24 23:15 | disposition home or self-care (01) ==
PROVIDERS: Emergency Provider Emergency Medicine; PCP Internal Medicine Infectious Disease
DX: R10.11 Right upper quadrant pain (principal); I10 Essential (primary) hypertension; M32.9 Systemic lupus erythematosus, unspecified; D50.9 Iron deficiency anemia, unspecified; K21.9 Gastro-esophageal reflux disease without esophagitis; E07.9 Disorder of thyroid, unspecified; Z85.3 Personal history of malignant neoplasm of breast; Z98.1 Arthrodesis status; Z96.651 Presence of right artificial knee joint; Z87.891 Personal history of nicotine dependence; Z90.49 Acquired absence of other specified parts of digestive tract; Z90.13 Acquired absence of bilateral breasts and nipples; Z90.710 Acquired absence of both cervix and uterus; I51.7 Cardiomegaly; K76.0 Fatty (change of) liver, not elsewhere classified
CPT/HCPCS: 36415; 74177; 80053; 81003; 83690; 83735; 85025; 96374; 96375; 96376; 99284; A9270; J1170; J2270; J2405; Q9967

== ENCOUNTER 2024-05-27 07:58 | Outpatient (CLI) | payer OTHER, SELFPAY ==
[2024-05-27] MEDS: METHACHOLINE CHLORIDE 18 ML VIAL.NEB INHALATION (10:32)
--- NOTE | 2024-05-27 11:24 | P.METCHAL_ITS ---
Methacholine Procedure Perform Procedure Performed Methacholine Challenge Methacholine Challenge Methacholine Challenge: This is a methacholine challenge test. The test was performed and interpreted in accordance with the 2017 ERS technical standard, endorsed by the ATS, using the GLI 2012 reference equations. Testing was performed with increasing doses of nebulized methacholine following a quadrupling dosage protocol. The methacholine dose was delivered via the [employer] nebulizer using a 1-minutes tidal breathing protocol. The best post-methacholine FEV1 values were used to determine the change from the post diluent FEV1. The delivered dose of methacholine was used to calculate the provocative dose causing a 20% fall in FEV1 (PD20). Findings: Baseline FEV1 2.30 L, 98% predicted. Post diluent FEV1 2.32 L Post 1.81 mcg methacholine FEV1 2.25 L, decreased 3% Post 7.26 mcg methacholine FEV1 2.24 L, decreased 3% Post 29.03 mcg methacholine FEV1 2.06 L, decreased 11% Post 116.1 mcg methacholine FEV1 2.13 L, decreased 13% Post 464.4 mcg methacholine FEV1 1.80 L, decreased 23% Post albuterol nebulization FEV1 2.11 L Impression: The PD20 is 322 mcg which is categorized as borderline airway hyperresponsiveness. There are no prior methacholine challenge studies for comparison
== END 2024-05-27 07:59 | disposition home or self-care (01) ==
LOC: ANHPFT 08:00
PROVIDERS: PCP Internal Medicine Infectious Disease; Visit Provider Internal Medicine Pulmonary Disease
DX: R06.09 Other forms of dyspnea (principal); R05.9 Cough, unspecified; T78.40XA Allergy, unspecified, initial encounter; D89.9 Disorder involving the immune mechanism, unspecified; C50.912 Malignant neoplasm of unspecified site of left female breast; J43.9 Emphysema, unspecified
CPT/HCPCS: 94070; J7674

== ENCOUNTER 2024-09-16 13:21 | Outpatient (CLI) | payer OTHER, SELFPAY ==
[2024-09-16 15:46] LABS: Basophils Percent Auto 0.6 % (0.2-1.2); Eosinophils Absolute Auto 0.1 K/mm3 (0-0.3); Eosinophils Percent Auto 2.1 % (0-4.4); Hematocrit 39.9 % (37.0-47.0); Hemoglobin 12.9 g/dL (12.0-15.0); Immature Granulocyte Absolute 0.03 K/mm3 (0.00-0.031); Immature Granulocyte Percent A 0.4 % (0-0.5); Lymphocytes Percent Auto 38.5 % (18.3-44.2); Mean Corpuscular HGB Conc 32.3 g/dl (32-36); Mean Corpuscular Hemoglobin 27.8 pg (26-34); Mean Platelet Volume 8.5 fl (7.4-10.4); Monocytes Absolute Auto 0.5 K/mm3 (0.1-0.6); Monocytes Percent Auto 7.7 % (2.6-8.5); Neutrophils Absolute Auto 3.4 K/mm3 (1.3-6.7); Neutrophils Percent Auto 50.7 % (45.5-73.1); Platelet Count Result 288 k/mm3 (150-375); Red Blood Count 4.64 M/mm3 (4.2-5.4); Red Cell Distribution Width 15.3 % (11.5-14.5); White Blood Count 6.8 K/mm3 (4.5-10.0)
[2024-09-16 16:08] LABS: Urine Cotinine NEGATIVE
[2024-09-16 16:14] LABS: Albumin Level 4.6 g/dL (3.5-5.1); Estimated Glomerular Filt Rate > 60; Glucose 99 mg/dL (65-110)
[2024-09-16 16:56] LABS: MRSA (PCR) NOT DETECTED (NOT DETECTE)
[2024-09-16 18:54] LABS: Hemoglobin A1C 6.3 % (<5.7)
== END 2024-09-16 13:22 | disposition home or self-care (01) ==
LOC: ANHSURGERY 13:23
PROVIDERS: PCP Internal Medicine Infectious Disease; Visit Provider Orthopaedic Surgery
DX: T84.093A Other mechanical complication of internal left knee prosthesis, initial encounter (principal)
CPT/HCPCS: 80307; 82040; 82565; 82947; 83036; 85025; 87641

== ENCOUNTER 2024-10-02 11:13 | Inpatient (IN) | payer OTHER, SELFPAY ==
[2024-09-16 14:00] VITALS: BMI 38.5
[2024-09-16 14:24] VITALS: BP 149/84; PULSE 80; RESP 16; TEMP 36.6; O2SAT 97
--- NOTE | 2024-09-16 14:54 | PC.NURSE ---
Report to the Outpatient Waiting Room, entrance under the green pavilion located off [facility], at time ___6:00AM____ on date ___10/01/24____. Planned Procedure Time: ___7:30AM .? Time changes happen often and if your time is changed the preop area will call you the afternoon before. - You and your visitor will be asked to self-screen and do not enter if you have any COVID symptoms. Please call surgeon if you need to reschedule. - A mask is optional within the hospital at this time. Patients may have clear liquids (water, carbonated beverages, clear teas, apple juice) until 3 hours prior to surgery with a maximum of 20 ounces. - No food from midnight until time of surgery and no smoking. This includes no chewing gum, candy or mints. Take only the following medications with a SIP of water on the morning of surgery: __ARIPIPRAZOLE, BUPROPION, BUSPIRONE, NIFEDIPINE, VENLAFAXINE. MAY USE ALBUTEROL INHALER AND ONDANSETRON NEEDED DO NOT STOP ANY OF YOUR OTHER PRESCRIPTION MEDICATIONS PRIOR TO SURGERY EXCEPT THE FOLLOWING Medications to discontinue per physician ____HOLD MELOXICAM (NSAIDS) AND VITAMINS/SUPPLEMENTS 7 DAYS PRE-OP - LAST DOSE 09/23/24 Please no make-up, nail kiswahili, hairspray, perfume, deodorant, or body powder the day of surgery.? No jewelry (including any body piercings) or valuables the day of surgery, leave them at home.? Please take a shower or bath the night before, or the morning of, surgery with an antibacterial soap.? Wear comfortable, loose fitting clothing.? Children are encouraged to wear pajamas. - Jewelry must be removed prior to entering the operating room.? Rings and piercings that are not removed may be cut off. - The hospital will not accept responsibility for valuables.? - Please leave all valuables, including medications, at home the day of surgery. If you are going home after surgery, a licensed pizza driver must drive you home.? - NO public transportation without another adult if you receive anesthesia. - We recommend that an adult stay with you for 24 hours following discharge. - We also recommend that you do not drive, make important decision, drink alcoholic beverages, or take any drugs that were not prescribed by your health care provider for at least 24 hours after your discharge time. Follow any additional instructions given to you from your surgeon. Telephone instructions given to ____PATIENT & HUSBAND and asked if any additional questions and then verbalized understanding. Patient advised to call surgeon office or pre surgery nurse liaison [phone] if any additional questions.
--- NOTE | 2024-09-30 07:36 | P.HP_ITS ---
H&P: HPI History of Present Illness Date/Time: 09/30/24 07:36 Chief Complaint: Patient is status post total knee arthroplasty on the left. She has a painful left knee with some instability. She has failed conservative treatment like the knee revised. Review of Systems Musculoskeletal: Musculoskeletal: Reports arthralgias, Reports joint swelling and Reports stiffness [facility] Past Medical History Medical History Iron deficiency anemia History of blood transfusion. Hypertension Systemic lupus erythematosus Gastroesophageal reflux disease Thyroid disease Depression Breast cancer Status post bilateral mastectomy and chemo radiation. Sepsis Surgical History Surgical History History of knee surgery 11/08/23- Rev right TKA History of arthroplasty of right knee History of hysterectomy History of repair of right rotator cuff History of arthroscopy of right knee Status post trigger finger release History of fusion of cervical spine Status post transverse rectus abdominis muscle flap breast reconstruction History of endoscopic sinus surgery History of bilateral mastectomy History of appendectomy History of cholecystectomy History of carpal tunnel release Port-A-Cath in place Family History Family History Other Family history of malignant neoplasm Hypertension Social History Social History (Updated 08/12/24 @ 13:40 by Ginette Sampson CMA) Social History: Surrogate medical decision maker: Domingo Mcnulty, spouse. Code status: Full code. Smoking status: Never smoker Second hand tobacco smoke exposure: No Additional smoking assessment comments: chewed tobacco occassionally as a teen Alcohol intake: never Substance use: never Substance use type: does not use Do You Feel Safe in your Home?: Yes Lack of Transportation: No Lack of Food: Never True Current Housing: I Have Housing Concerned About Future Housing: No Difficulty Paying Gas/Electric Bills: No Difficulty Paying for Meds: No Currently Unemployed: No Education: High School Diploma/GED Difficulty w/ Childcare or Family Care: No Living arrangements: with family Additional living arrangements comments: [facility] Occupation/Education: unemployed Spiritual care concerns: No Meds Home Medications and Allergies Home Medications ?Medication ?Instructions ?Recorded ?Confirmed ?Type venlafaxine 225 mg tablet,extended 225 mg PO QAM 10/13/19 09/16/24 History release 24 hr aripiprazole 2 mg tablet 2 mg PO QAM 07/09/23 09/16/24 History buspirone 15 mg tablet 15 mg PO TID 07/09/23 09/16/24 History famotidine 20 mg tablet 20 mg PO QAM 10/11/23 09/16/24 History ferrous sulfate 325 mg (65 mg 325 mg PO DAILY 10/11/23 09/16/24 History iron) tablet (FeroSul) hydroxyzine HCl 50 mg tablet 100 mg PO HS 10/11/23 09/16/24 History ketoconazole 2 % topical cream 1 applic topical DAILY 10/11/23 09/16/24 History lisinopril 40 mg tablet 40 mg PO QAM 10/11/23 09/16/24 History multivitamin 1 tablet PO DAILY 10/11/23 09/16/24 History nifedipine 30 mg tablet,extended 30 mg PO QAM 10/11/23 09/16/24 History release trazodone 150 mg tablet 150 mg PO HS 10/11/23 09/16/24 History vitamin E 1,000 unit tablet 1 tablet PO DAILY 10/11/23 09/16/24 History acetaminophen 500 mg capsule 1,000 mg (2 x 500 mg) PO Q6H PRN 04/27/24 09/16/24 Rx pain #20 caps albuterol sulfate 90 mcg/actuation 2 puff inhalation Q4-6H PRN 09/16/24 09/16/24 History aerosol inhaler shortness of breath or wheezing bupropion HCl 150 mg 24 hr tablet, 150 mg PO .MORNING 09/16/24 09/16/24 History extended release meloxicam 15 mg tablet 15 mg PO QAM PRN pain 09/16/24 09/16/24 History metoprolol succinate 100 mg 100 mg PO HS 09/16/24 09/16/24 History tablet,extended release 24 hr mirtazapine 15 mg tablet 15 mg PO HS 09/16/24 09/16/24 History omeprazole 40 mg capsule,delayed 40 mg PO QAM 09/16/24 09/16/24 History release ondansetron HCl 8 mg tablet 8 mg PO Q12H PRN nausea and 09/16/24 09/16/24 History vomiting Allergies Allergy/AdvReac Type Severity Reaction Status Date / Time meperidine AdvReac Severe HEADACHE Verified 09/16/24 14:50 scopolamine AdvReac Severe Headache Verified 09/16/24 14:49 adhesive tape AdvReac Unknown Rash, Verified 09/16/24 14:04 REDNESS, BURNING silver (From Tegaderm AG AdvReac BLISTER/REDNESS Verified 09/16/24 14:04 Mesh) AT SITE Exam Narrative: Patient has pain with manipulation of her left knee. The knee rocks a little bit she has a moderate drawer. She exhibits signs of flexion instability. She walks with an antalgic gait. Eyes: General: appearance normal, both eyes and all related structures Neck: Neck: supple Resp: Effort & Inspection: normal respiratory effort Cardio: Rate: regular rate Rhythm: regular rhythm Assessment and Plan Assessment and plan (1) Failed total left knee replacement: Code(s): T84.093A - Other mechanical complication of internal left knee prosthesis, initial encounter Status: Acute Assessment and Plan: Patient has what appears to be flexion instability of her left knee. The knee appears to be lax particularly in flexion. I have it discussed treatment options with her in detail she would like to consider revision. If possible we will try for a poly swap. I have discussed this with her in detail risks benefits limitations and alternatives. Will proceed per her request. She understands it complete revision may be necessary.
[2024-10-01] VITALS (19 sets, daily range): BP systolic 134–187; BP diastolic 76–110; PULSE 75–91; RESP 12–20; TEMP 35.7–36.8; O2SAT 93–100; BMI 38.3
--- OUTSIDE RECORDS SUMMARY | 2024-10-01 01:27 | XMS_ITS | Clinical Summary ---
Author Organization [facility] Address [address] [place] [address] Phone Care Team Providers Care Skills Instructor Name Role Phone LEILANI MABRY, NILESH Primary Care Provider [phone] Reason for Visit and Chief Complaint The Chief Complaint is: FU MEDS ~ADDED TYLENOL 500, TAKING #2 BID Problems Includes: Problems addressed during this encounter and other active Problems Current Visit Onset Date Resolved Date Provider Charla jones Status Chronic Pain Syndrome 07/31/2023 HARLEEN COULTER PMHNP Active Last Documented On 3 1:32PM ; [facility] Plan of Treatment Education and Decision Aids were provided during visit for: Pill Count: two HYSINGLA Last Documented On 4 11:00AM ; [facility] Pill Count: HYDROCODONE ~out of medication Last Documented On 4 11:43AM ; [facility] Assessments Includes: Assessments from this encounter Findings - Systemic lupus erythematosus [M32.9 - Systemic lupus erythematosus, unspecified] - Last Documented On 12/17/2023 1:18PM ; [facility] - Sacroiliitis [M46.1 - Sacroiliitis, not elsewhere classified] - Last Documented On 12/17/2023 1:18PM ; [facility] - Lumbar spondylosis with radiculopathy [M47.26 - Other spondylosis with radiculopathy, lumbar region] - Last Documented On 12/17/2023 1:18PM ; [facility] - Lumbar stenosis with neurogenic claudication [M48.062 - Spinal stenosis, lumbar region with neurogenic claudication] - Last Documented On 12/17/2023 1:18PM ; [facility] - Fibromyalgia [M79.7 - Fibromyalgia] - Last Documented On 12/17/2023 1:18PM ; [facility] - Chronic pain syndrome [G89.4 - Chronic pain syndrome] - Last Documented On 12/17/2023 1:18PM ; [facility] - long-term use of opiate analgesic [Z79.891 - 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 of opiate analgesic] - Last Documented On 12/17/2023 1:18PM ; [facility] Instructions Includes: Instructions from this encounter Education and Decision Aids were provided during visit for: Pill Count: two HYSINGLA Last Documented On 4 11:00AM ; [facility] Pill Count: HYDROCODONE ~out of medication Last Documented On 4 11:43AM ; [facility] Medical Equipment - Implanted Devices Includes: Current Devices No Medical Equipment Recorded Medications Includes: Medications discussed during this encounter and other current Medications Discontinued / Stopped on this date FELISHA SENIOR on 11/14/2023 Hysingla ER 20 MG Oral Table t ER 24 Hour Abuse-Deterrent Provider: FELISHA SENIOR Diagnosis: Spinal stenosis, lumbar region with neurogenic claudication Last Documented On 4 11:11AM By FELISHA SENIOR ; [facility] New / Renewed during this visit FELISHA SENIOR on 12/17/2023 Hysingla ER 20 MG Oral Table t ER 24 Hour Abuse-Deterrent Provider: FELISHA SENIOR 30 day supply: 30 tablet, 0 refills Diagnosis: Spinal stenosis, lumbar region with neurogenic claudication 1 tablet q 24 hours [facility] [address] [facility], [phone] - Last Documented On 4 2:27PM By FELISHA SENIOR ; [facility] Current Medications (continue as prescribed) Narcan 4 MG/0.1ML Nasal Liquid 01/21/2024 [facility] Diagnosis: Spinal stenosis, lumbar region with neurogenic claudication as directed Last Documented On 4 2:31PM [facility] Hysingla ER 20 MG Oral Table t ER 24 Hour Abuse-Deterrent 01/21/2024 [facility] Diagnosis: Spinal stenosis, lumbar region with neurogenic claudication 1 tablet q 24 hours Last Documented On 4 2:31PM [facility] oxyCODONE-Acetaminophen 10-325 MG Oral Tablet 01/15/20 Provider: Diagnosis: Last Documented On 02/01/2024 8:52AM By Lilli MAK ; [facility] traZODone HCl 100 MG Oral Tablet 11/02/2023 Provider : Diagnosis: Last Documented On 4 10:13AM By Lilli MAK ; [facility] Cyclobenzaprine HCl 10 MG Oral Tablet 10/29/2023 Pro vider: REFUGIO AMARO MD Diagnosis: Last Documented On 4 10:15AM By Lilli MAK ; [facility] Ketoconazole 2% External Cream 10/29/2023 Provider: REFUGIO AMARO MD Diagnosis: Last Documented On 4 10:15AM By Lilli MAK ; [facility] hydrOXYzine HCl 50 MG Oral Tablet 10/26/2023 Provide r: Diagnosis: Last Documented On 4 10:16AM By Lilli MAK ; [facility] Anastrozole 1 MG Oral Tablet 10/24/2023 Provider: Diagnosis: Last Documented On 4 10:16AM By Lilli MAK ; [facility] FeroSul 325 (65 Fe) MG Oral Tablet 10/24/2023 Provid er: Diagnosis: Last Documented On 4 10:18AM By Lilli MAK ; [facility] Venlafaxine HCl ER 225 MG Oral Tablet Extended R elease 24 Hour 10/23/2023 Provider: Diagnosis: Last Documented On 4 10:18AM By Lilli MAK ; [facility] Pregabalin 200 MG Oral Capsule 10/08/2023 Provider: FELISHA WU Diagnosis: Fibromyalgia TAKE 1 CAPSULE BY MOUTH TWICE DAILY Last Documented On 4 1:51PM By FELISHA SENIOR ; [facility] Omeprazole 40 MG Oral Capsule Delayed Release 08/11/20 Provider: Diagnosis: Last Documented On 4 10:17AM By Lilli MAK ; [facility] Lisinopril 40 MG Oral Tablet 04/11/2023 Provider: REFUGIO AMARO MD Diagnosis: Last Documented On 3 10:40AM By Lilli MAK ; [facility] Famotidine 20 MG Oral Tablet 01/23/2023 Provider: Diagnosis: Last Documented On 02/05/2023 4:01PM By Lilli MAK ; [facility] ARIPiprazole 2 MG Oral Tablet 01/09/2023 Provider: Diagnosis: Last Documented On 02/05/2023 4:04PM By Lilli MAK ; [facility] busPIRone HCl 15 MG Oral Tablet 09/20/2022 Provider: Diagnosis: Last Documented On 02/05/2023 4:05PM By Lilli MAK ; [facility] NIFEdipine ER 30 MG Oral Tab let Extended Release 24 Hour 05/04/2022 Provider: REFUGIO AMARO MD Diagnosis: Last Documented On 05/09/2022 3:25PM By Lilli MAK ; [facility] Metoprolol Succinate ER 200M G Oral Tablet Extended Release 24 Hour 10/03/2018 Provider: Diagnosis: Last Documented On 9 3:00PM By VENKAT MAK ; [facility] Medications Administered Includes: Administered Medications from this encounter No Administered Medications Recorded Vital Signs Includes: Vital Signs from this encounter Vital Name 12/17/2023 10:57A Temp-Oral (F) 98.6 Height (in) 65 Weight (lb) 215 Body Mass Index 35.8 Body Surface Area 2 Pain Level 8 Last Documented: On 12/17/2023 10:59A M ; [facility] Results Includes: Results discussed during this encounter No Results Recorded For Specified Dates History of Present Illness Includes: History of Present Illness from this encounter HPI - Allergy list reviewed - Allergy list reviewed - Problem list reviewed - Medication reconciliation performed - Medication list reviewed - Prescription Drug Monitoring Program website checked. 11/20/23 - How much of the medication are you taking a day? ONCE A DAY - Last dose of medication? THIS MORNING - Last drug screen appropriate 10/08/23 This visit was conducted with use of interactive audio and video telecommunication system with real time communication between the patient and the provider. All concerns discussed and addressed without physical examination completed. If at any time it was felt patient should be evaluated in the clinic, further arrangements would of been made. Verbal patient consent for visit obtained today. Discussion: Patient is a follow-up for medication. Hysingla 20 mg is prescribed. She had questioned benefit. We discussed increasing Tylenol to 3000 mg per day for additional relief. She has started taking 1 500 mg in the morning and 1 500 mg in the p.m. She reports misunderstanding the direction I had given her. I would like for her to increase Tylenol before considering increasing overall opioid dosage. She was given clear instructions today and voiced understanding. She is also awaiting either knee or foot surgery in the next month. I would like to avoid escalating long- acting opioids prior to the surgery. She continues other medications as prescribed. Prior visit: Patient is a follow up for chronic back pain. Spinal cord stimulation leads were pulled one week ago. She felt it was only 50% effective though there is some question of motivation to remain on opioid medication.She was converted to Hysingla 20mg last month. She questions if it is helping although taking the same dosage of hydrocodone as she has responded to for years, only in once daily ER dosing. She reports taking it only once per day doesn't seem like it will help as she is used to taking it four times daily. We discussed the dosage is similar to that she has always taken, minus tylenol. She can add tylenol up to 3000mg per day. She admits lack of efficacy on her part is likely related to going to once daily dosing. She will continue with medication and we will revisit in 3-4 weeks. Prior note 11/23/23 Dr. Gallardo: Patient returns today 7 days after initiation of a spinal cord summation trial using 28 contact [employer] percutaneous leads. His replacement. Guidance. Patient tolerated the procedure well. Despite multiple efforts approved reprogramming, and a report back to the [employer] packaging sales representative that she was getting approximate 75% overall improvement, she now states today that she only had about 50% improvement in her typical low back and lower 70 pain. She denies any benefit to her bilateral knee pain and notes that she has other joints that are also painful. Ultimately, she does not feel she has had a substantial response and does not feel her response warrants moving forward permanent implantation. Furthermore, she is somewhat concerned about the possibility of infection given her diagnosis of lupus and her history of sepsis after undergoing other minor procedures. Despite our efforts to explain that this would be a low risk and that we would take every precaution to avoid this including preprocedural antibiotic therapy, MRI say testing and close evaluation, she was not reassured. Ultimately, the patient is more interested in getting offer her Hysingla and back onto her hydrocodone. This may be her primary motivation. Failure to respond to spinal cord stimulation may be as a result of this motivation however there is a long history of reduced response to spinal cord stimulation with significant nociceptive pain from arthritic conditions which may also explain her lack of benefit overall. Regardless, she is not interested in moving forward with permanent implantation. Certainly can discuss intrathecal pain pump as an option although she still somewhat concerned about the risk of infection. Patient will return to SHARON Massey discuss medication options or any additional therapies that may be appropriate. Leads were removed intact today without difficulty. No evidence of infection. Lead insertion sites were clean. Triple antibiotic ointment and gauze dressing were applied. Patient will sponge but only for a did an additional 48 hours and can return to showers. She will avoid soaking for a week. PRIOR VISIT (11/07/23): Patient presents in follow up for H & P prior to spinal cord stimulator trial. She describes low back pain with pain radiating to the right lower extremity. Pain worsens with activity, standing and walking. She underwent right knee revision 10/29/23 and is currently in therapy. She tolerated anesthesia with this procedure without difficulties. She has no new health concerns. No shortness of breath, chest pain or stroke like symptoms. I will obtain labs done just prior to this procedure. There was no ekg or chest xray done. We discussed the procedure and she is prepared to proceed. Questions answered. [place] prescription 2/29 from surgeon. Patient reports she didn't pick this up from the pharmacy. However, pharmacy confirms this medication was picked up. I questioned where this medication was and let her know it was picked up from the pharmacy. She states she doesn't know where it was, maybe she took it to the police station, but admits she looks at all medication she takes to the police station for turn in and doesn't recall this being one of them. She is going to check at home and call office. Past note: Ms. Mcnulty returns in follow-up for medication management as well as further discussion of spinal cord stimulation for intractable low back pain with lower extremity. She has discussed option for spinal cord stimulation with Dr. Gallardo and met necessary requirements of psychological evaluation and meeting with the [employer] packaging sales representative. Psychological evaluation revealed no barriers to proceeding with stimulator trial. Patient has failed extensive conservative treatment including steroid injections, multiple rounds of physical therapy (with increased pain), lumbar medial branch blocks, oral and topical analgesics and is currently prescribed opioid analgesics with modest benefit. She does mild lumbar stretches as tolerated 1-2 times per week. Oswestry disability score of 27 (54%); pain limits most of her daily activities. We further discussed stimulator trial/implant process today. She is ready to move forward. She has some concerns that opioid medication will be taken away with the stimulator trial. Reassured patient that the ultimate goal is to reduce opioid requirement in this would be evaluated once the trial/implant is complete. She will need a refill of hydrocodone today. [place] RETAIL EVENT ASSISTANT appropriate. Last UDS appropriate, this will be repeated today. Past note 07/12/23 (Dr. Gallardo): Patient returns in follow-up to discuss spinal cord stimulation as an option for control of her recalcitrant low back and lower extremity pain in a lumbosacral distribution. She is failed to respond epidural steroid injections, physical therapy, lumbar facet medial branch blocks, oral and topical analgesics as well as oral opioid analgesics which are modestly effective in the management of her symptoms. She is interested in pursuing alternative options that would help her reduce reliance on opioid analgesics in the future. We discussed at length the process, expected outcomes and response, risks, benefits and alternatives to spinal cord stimulation as a treatment strategy for her chronic pain. She is provided with additional education information for personal review as well. Appropriate questions were elicited, asked and answered. Her was with her today and participated in this discussion. She understands that we would need to initiate the process with psychological evaluation to ensure candidacy for the device. Once appropriately completed, can proceed with insurance preauthorization. That time we can conduct a trial. Trial was discussed in detail the patient. If the trial is successful for 7 days, she can opt to move forward with permanent placement. That time we can either refer her to surgical consult for paddle lead placement or can move forward with percutaneous lead placement through our facility for permanent implantation. She is in agreement and would like to move forward with the initial steps. Will refer her to Harleen Coulter NP in the psychiatry department for initial psychological screening. Once this is completed and appropriate, we will submit for authorization through her insurance carrier. If approved, we will schedule her for a two lead [employer] spinal cord simulation trial under fluoroscopic guidance. Of note, [place] prescription monitoring database was reviewed and found to be appropriate. There is no evidence of opioid misuse, abuse, addiction or diversion. She is no history of substance abuse, uncontrolled anxiety or depression. PRIOR VISIT (07/05/23): Patient returns in follow-up for medication management. She suffers from chronic low back pain as well as poly arthralgia. Lumbar symptoms radiate to the bilateral lower extremities and predominantly L5 dermatomal pattern. She has failed lumbar epidural injections recently and lumbar medial branch blocks were ineffective in December 2022. Radicular symptoms have been more pronounced the last 6 months. Symptoms worsen with prolonged standing and walking. She has failed physical therapy. Patient requires narcotic medication at this time to control symptoms. We have discussed spinal cord stimulation and she has an appointment next week to further discuss this with Dr. Gallardo. Hydrocodone is used 4 times per day with modest benefit. She would like to continue this medication. She denies any side effects. Last UDS appropriate. We will repeat this today. [facility] appropriate. She has exhibited no signs of misuse or abuse of medication. Past note: Patient presents in follow-up to review imaging and consider treatment options. She continues to complain of right-sided low back pain with pain to the right lower extremity and and L4-5 dermatomal pattern. She denies sensory or motor changes. Pain is limiting her ability to stand or walk any distance. Patient feels pain is progressively worsening. She has done physical therapy multiple times in the past with no benefit. MRI discussed and recommend right L4-5, L5-S1 transforaminal epidural. I have fully answered her questions today. She continues hydrocodone as needed with mild to modest benefit. Less relief as of late. Medication is causing no side effects and does typically help her maintain function levels. Past note: Patient presents in follow-up for medication management. She suffers from chronic pain, particularly low back pain. She does have chronic shoulder pain and has been under the care of an orthopedic for several months. She is currently in physical therapy for this complaint. Low back pain has been worse the last 4-5 months. Pain radiates to the right posterior lateral lower extremity. Symptoms worsen with activity, walking and standing. She has continued home exercises, but formal physical therapy done multiple times in the past has proven to be ineffective. CT scan done in 2021 does show a degree of stenosis. I would like in MRI to better evaluate nerve root compression. Once this is completed, will consider a right sided lumbar epidural injection. She is needing a refill of hydrocodone. She uses this medication 4 times per day with modest benefit. She also takes pregabalin twice daily. Medication allows her to maintain function levels. [place] RETAIL EVENT ASSISTANT is appropriate. UDS was appropriate Past note: Patient presents in follow up for chronic pain. She complains of increased shoulder pain. She has been to the ER for shoulder pain. They gave her lidocaine patches and they are helping some. She has a follow up with ortho this week. Low back has been hurting worse and travels into the buttock. This worsens with activity, walking, standing. She has continued home exercises provided by therapy and myself over 6 months ago. These are providing minimal relief. We had waiting to proceed with lumbar injections until she had healed from left shoulder surgery. She would like to proceed. We discussed medial branch blocks with progression to RF ablation based on response. Past note: Patient presents in follow up for chronic pain. She has increased right sided low back/buttock pain since fall in April. This travels into the posterior thigh on the left. She has attempted lumbar stretches for last 3 months with no benefit. Pain is worse with sitting. She had another shoulder surgery June and is doing some better. We discussed a SI joint injection and she would like to proceed. Hydrocodone is used four times per day with benefit. [place]. Patient is on oral antibiotics until October r/t infection in the shoulder in June. She is under the care of infectious disease. I will obtain these notes before proceeding with any injection. She will call back with his name. Past note: F/U neck and shoulder pain and medication refills. Neck pain remains unchanged. She had a shoulder scope yesterday and anticipates further shoulder surgery once she meets with the surgeon. She also had foot surgery to remove hardware since last visit. We had held off on cervical MBB due to cardiac cath, which she states was ok. We will still need to get this confirmed; however, at this point I would recommend she wait to proceed with cervical treatment until after she is done with her shoulder. Hydrocodone is used four times per day as needed. This helps and allows her to maintain function levels. She was given short prescription of oxycodone post surgery and notified the office of this prescription. Imaging: All relevant imaging available was personally reviewed with the patient today with the following tests and results noted: MRI L spine 04/16/2020: bilateral facet hypertrophy L2-S1, worse at mild foraminal stenosis L 4-S1, moderate right foraminal stenosis L 4-5. X-ray L spine 03/24/2020: multilevel degenerative changes, including degenerative disc disease. Facet arthrosis. MRI L spine 03/17/23: severe bilateral facet osteoarthritis L2-S1. Mild bilateral neural foraminal stenosis L2-S1 mild central canal stenosis L2-3, L3-4 and L5- S1. Spondylosis has slightly worsened since 2016 Location for visit: Provider: Privacy of provider's office. [address] [place] [id number] Patient: Patient personal setting Total time spent with patient via telecommunication minutes Social History Description Last Updated Tobacco non-user 11/07/2023 Last Documented On 4 10:56AM ; [facility] Alcohol 07/31/2023 Last Documented On 4 10:56AM ; [facility] Consuming 5 or more drinks per day None 07/31/2023 Last Documented On 4 10:56AM ; [facility] Current nonsmoker 07/31/2023 Last Documented On 4 10:56AM ; [facility] Drug use 07/31/2023 Last Documented On 4 10:56AM ; [facility] Lives with spouse 07/31/2023 Last Documented On 4 10:56AM ; [facility] Non-smoker 07/31/2023 Last Documented On 4 10:56AM ; [facility] Number of times used recreat ional drug/ prescription drug for nonmedical reason. None 07/31/2023 Last Documented On 4 10:56AM ; [facility] Smoking status : Never smoker 08/07/2019 Last Documented On 4 10:56AM ; [facility] Currently 10/03/2018 Last Documented On 4 10:56AM ; [facility] Procedures and Surgical History Includes: Procedures from this encounter Procedures Code Diagnosis Performing Provider Service Location Service Date CLINIC VISIT [id number] Other spondylosi s with radiculopathy, lumbar region, Systemic lupus erythematosus, unspecified, 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 of opiate analgesic, Spinal stenosis, lumbar region with neurogenic claudication FELISHA R[facility] 12/17/2023 Last Documented On 4 12:11PM ; [facility] use of tobacco assessment performed 1000F Last Documented On 4 10:59AM ; [facility] review of medications documented 1160F Last Documented On 4 10:59AM ; [facility] Clinical summary provided to patient via portal/mailed. ~ Patient understands and agrees with treatment plan. Questions answered Last Documented On 4 11:43AM ; [facility] Medical History Includes: Medical History addressed during this encounter Description Last Updated Reviewed and Unchanged 10/10/2019 Last Documented On 4 10:56AM ; [facility] Currently wearing eyeglasses 10/03/2018 Last Documented On 4 10:56AM ; [facility] Previously 3 time(s) 10/03/2018 Last Documented On 4 10:56AM ; [facility] History of arthritis 10/03/2018 Last Documented On 4 10:56AM ; [facility] History of cancer 10/03/2018 Last Documented On 4 10:56AM ; [facility] History of hypertension 10/03/2018 Last Documented On 4 10:56AM ; [facility] Family History Includes: Family History addressed during this encounter No Family History Recorded Review of Systems Includes: Review of Systems from this encounter Systemic: No fever and no chills. Cardiovascular: No chest pain or discomfort. Pulmonary: No dyspnea. Gastrointestinal: No constipation. Musculoskeletal: Lower back pain. Neurological: No motor disturbances and no sensory disturbances. Psychological: No anxiety and no depression. Skin: No rash. Mental Status Includes: Mental Status from this encounter Description Oriented to time, place, and person No anxiety Functional Status Includes: Functional Status from this encounter No Functional Status Recorded Physical Exam Includes: Physical Exam from this encounter Allergies Includes: Active Allergies Substance Type Reaction Onset Date Resolved Date Statu s Adhesive Tape 1 x5yd Allergy 07/31/2023 Active Last Documented On 4 8:53AM ; [facility] Encounters Encounter Provider Location Date Check-In Time Check-Out Time Diagnosis [facility] FELISHA SENIOR [facility] 12/17/19 24 10:55AM 11:15AM Systemic Lupus Erythematosus,Chr onic Pain Syndrome,Sacroili itis,Fibromyalgia ,Spinal Stenosis Lumbar with Neurogenic Claudication,Spon dylosis with Radiculopathy Lumbar Region,Correction Use of Opiate Analgesic Insurance Includes: Active Insurance Policies Plan Name Member ID Group # Subscriber Relationship Effect nieves Dates 1 - [facility] [id number] KATHY MCNULTY Self Clinical Notes Includes: Clinical Notes from this encounter * Progress note Date Encounter Last Documented by 12/17/2023 TELEHEALTH Last documented on 12/17/2023; 1:18 PM, FELISHA SENIOR; [facility] Active Problems & Conditions - Chronic Pain Syndrome Chief Complaint The Chief Complaint is: FU MEDS ADDED TYLENOL 500, TAKING #2 BID. History of Present Illness - Allergy list reviewed - Allergy list reviewed - Problem list reviewed - Medication reconciliation performed - Medication list reviewed - Prescription Drug Monitoring Program website checked. 11/20/23 - How much of the medication are you taking a day? ONCE A DAY - Last dose of medication? THIS MORNING - Last drug screen appropriate 10/08/23 This visit was conducted with use of interactive audio and video telecommunication system with real time communication between the patient and the provider. All concerns discussed and addressed without physical examination completed. If at any time it was felt patient should be evaluated in the clinic, further arrangements would of been made. Verbal patient consent for visit obtained today. Discussion: Patient is a follow-up for medication. Hysingla 20 mg is prescribed. She had questioned benefit. We discussed increasing Tylenol to 3000 mg per day for additional relief. She has started taking 1 500 mg in the morning and 1 500 mg in the p.m. She reports misunderstanding the direction I had given her. I would like for her to increase Tylenol before considering increasing overall opioid dosage. She was given clear instructions today and voiced understanding. She is also awaiting either knee or foot surgery in the next month. I would like to avoid escalating long- acting opioids prior to the surgery. She continues other medications as prescribed. Prior visit: Patient is a follow up for chronic back pain. Spinal cord stimulation leads were pulled one week ago. She felt it was only 50% effective though there is some question of motivation to remain on opioid medication.She was converted to Hysingla 20mg last month. She questions if it is helping although taking the same dosage of hydrocodone as she has responded to for years, only in once daily ER dosing. She reports taking it only once per day doesn't seem like it will help as she is used to taking it four times daily. We discussed the dosage is similar to that she has always taken, minus tylenol. She can add tylenol up to 3000mg per day. She admits lack of efficacy on her part is likely related to going to once daily dosing. She will continue with medication and we will revisit in 3-4 weeks. Prior note 11/23/23 Dr. Gallardo: Patient returns today 7 days after initiation of a spinal cord summation trial using 28 contact [employer] percutaneous leads. His replacement. Guidance. Patient tolerated the procedure well. Despite multiple efforts approved reprogramming, and a report back to the [employer] packaging sales representative that she was getting approximate 75% overall improvement, she now states today that she only had about 50% improvement in her typical low back and lower 70 pain. She denies any benefit to her bilateral knee pain and notes that she has other joints that are also painful. Ultimately, she does not feel she has had a substantial response and does not feel her response warrants moving forward permanent implantation. Furthermore, she is somewhat concerned about the possibility of infection given her diagnosis of lupus and her history of sepsis after undergoing other minor procedures. Despite our efforts to explain that this would be a low risk and that we would take every precaution to avoid this including preprocedural antibiotic therapy, MRI say testing and close evaluation, she was not reassured. Ultimately, the patient is more interested in getting offer her Hysingla and back onto her hydrocodone. This may be her primary motivation. Failure to respond to spinal cord stimulation may be as a result of this motivation however there is a long history of reduced response to spinal cord stimulation with significant nociceptive pain from arthritic conditions which may also explain her lack of benefit overall. Regardless, she is not interested in moving forward with permanent implantation. Certainly can discuss intrathecal pain pump as an option although she still somewhat concerned about the risk of infection. Patient will return to Essence Rothman, ANP discuss medication options or any additional therapies that may be appropriate. Leads were removed intact today without difficulty. No evidence of infection. Lead insertion sites were clean. Triple antibiotic ointment and gauze dressing were applied. Patient will sponge but only for a did an additional 48 hours and can return to showers. She will avoid soaking for a week. PRIOR VISIT (11/07/23): Patient presents in follow up for H & P prior to spinal cord stimulator trial. She describes low back pain with pain radiating to the right lower extremity. Pain worsens with activity, standing and walking. She underwent right knee revision 10/29/23 and is currently in therapy. She tolerated anesthesia with this procedure without difficulties. She has no new health concerns. No shortness of breath, chest pain or stroke like symptoms. I will obtain labs done just prior to this procedure. There was no ekg or chest xray done. We discussed the procedure and she is prepared to proceed. Questions answered. [place] she had [place] a prescription from surgeon. Patient reports she didn't pick this up from the pharmacy. However, pharmacy confirms this medication was picked up. I questioned where this medication was and let her know it was picked up from the pharmacy. She states she doesn't know where it was, maybe she took it to the police station, but admits she looks at all medication she takes to the police station for turn in and doesn't recall this being one of them. She is going to check at home and call office. Past note: Ms. Mcnulty returns in follow-up for medication management as well as further discussion of spinal cord stimulation for intractable low back pain with lower extremity. She has discussed option for spinal cord stimulation with Dr. Gallardo and met necessary requirements of psychological evaluation and meeting with the [employer] packaging sales representative. Psychological evaluation revealed no barriers to proceeding with stimulator trial. Patient has failed extensive conservative treatment including steroid injections, multiple rounds of physical therapy (with increased pain), lumbar medial branch blocks, oral and topical analgesics and is currently prescribed opioid analgesics with modest benefit. She does mild lumbar stretches as tolerated 1-2 times per week. Oswestry disability score of 27 (54%); pain limits most of her daily activities. We further discussed stimulator trial/implant process today. She is ready to move forward. She has some concerns that opioid medication will be taken away with the stimulator trial. Reassured patient that the ultimate goal is to reduce opioid requirement in this would be evaluated once the trial/implant is complete. She will need a refill of hydrocodone today. [place] [employer]ISTANT appropriate. Last UDS appropriate, this will be repeated today. Past note 07/12/23 (Dr. Gallardo): Patient returns in follow-up to discuss spinal cord stimulation as an option for control of her recalcitrant low back and lower extremity pain in a lumbosacral distribution. She is failed to respond epidural steroid injections, physical therapy, lumbar facet medial branch blocks, oral and topical analgesics as well as oral opioid analgesics which are modestly effective in the management of her symptoms. She is interested in pursuing alternative options that would help her reduce reliance on opioid analgesics in the future. We discussed at length the process, expected outcomes and response, risks, benefits and alternatives to spinal cord stimulation as a treatment strategy for her chronic pain. She is provided with additional education information for personal review as well. Appropriate questions were elicited, asked and answered. Her was with her today and participated in this discussion. She understands that we would need to initiate the process with psychological evaluation to ensure candidacy for the device. Once appropriately completed, can proceed with insurance preauthorization. That time we can conduct a trial. Trial was discussed in detail the patient. If the trial is successful for 7 days, she can opt to move forward with permanent placement. That time we can either refer her to surgical consult for paddle lead placement or can move forward with percutaneous lead placement through our facility for permanent implantation. She is in agreement and would like to move forward with the initial steps. Will refer her to Harleen Coulter NP in the psychiatry department for initial psychological screening. Once this is completed and appropriate, we will submit for authorization through her insurance carrier. If approved, we will schedule her for a two lead [employer] spinal cord simulation trial under fluoroscopic guidance. Of note, [place] prescription monitoring database was reviewed and found to be appropriate. There is no evidence of opioid misuse, abuse, addiction or diversion. She is no history of substance abuse, uncontrolled anxiety or depression. PRIOR VISIT (07/05/23): Patient returns in follow-up for medication management. She suffers from chronic low back pain as well as poly arthralgia. Lumbar symptoms radiate to the bilateral lower extremities and predominantly L5 dermatomal pattern. She has failed lumbar epidural injections recently and lumbar medial branch blocks were ineffective in December 2022. Radicular symptoms have been more pronounced the last 6 months. Symptoms worsen with prolonged standing and walking. She has failed physical therapy. Patient requires narcotic medication at this time to control symptoms. We have discussed spinal cord stimulation and she has an appointment next week to further discuss this with Dr. Gallardo. Hydrocodone is used 4 times per day with modest benefit. She would like to continue this medication. She denies any side effects. Last UDS appropriate. We will repeat this today. [facility] appropriate. She has exhibited no signs of misuse or abuse of medication. Past note: Patient presents in follow-up to review imaging and consider treatment options. She continues to complain of right-sided low back pain with pain to the right lower extremity and and L4-5 dermatomal pattern. She denies sensory or motor changes. Pain is limiting her ability to stand or walk any distance. Patient feels pain is progressively worsening. She has done physical therapy multiple times in the past with no benefit. MRI discussed and recommend right L4-5, L5-S1 transforaminal epidural. I have fully answered her questions today. She continues hydrocodone as needed with mild to modest benefit. Less relief as of late. Medication is causing no side effects and does typically help her maintain function levels. Past note: Patient presents in follow-up for medication management. She suffers from chronic pain, particularly low back pain. She does have chronic shoulder pain and has been under the care of an orthopedic for several months. She is currently in physical therapy for this complaint. Low back pain has been worse the last 4-5 months. Pain radiates to the right posterior lateral lower extremity. Symptoms worsen with activity, walking and standing. She has continued home exercises, but formal physical therapy done multiple times in the past has proven to be ineffective. CT scan done in 2021 does show a degree of stenosis. I would like in MRI to better evaluate nerve root compression. Once this is completed, will consider a right sided lumbar epidural injection. She is needing a refill of hydrocodone. She uses this medication 4 times per day with modest benefit. She also takes pregabalin twice daily. Medication allows her to maintain function levels. [place] [employer] EVENT ASSISTANT is appropriate. UDS was appropriate Past note: Patient presents in follow up for chronic pain. She complains of increased shoulder pain. She has been to the ER for shoulder pain. They gave her lidocaine patches and they are helping some. She has a follow up with ortho this week. Low back has been hurting worse and travels into the buttock. This worsens with activity, walking, standing. She has continued home exercises provided by therapy and myself over 6 months ago. These are providing minimal relief. We had waiting to proceed with lumbar injections until she had healed from left shoulder surgery. She would like to proceed. We discussed medial branch blocks with progression to RF ablation based on response. Past note: Patient presents in follow up for chronic pain. She has increased right sided low back/buttock pain since fall in April. This travels into the posterior thigh on the left. She has attempted lumbar stretches for last 3 months with no benefit. Pain is worse with sitting. She had another shoulder surgery June and is doing some better. We discussed a SI joint injection and she would like to proceed. Hydrocodone is used four times per day with benefit. [place]. Patient is on oral antibiotics until October r/t infection in the shoulder in June. She is under the care of infectious disease. I will obtain these notes before proceeding with any injection. She will call back with his name. Past note: F/U neck and shoulder pain and medication refills. Neck pain remains unchanged. She had a shoulder scope yesterday and anticipates further shoulder surgery once she meets with the surgeon. She also had foot surgery to remove hardware since last visit. We had held off on cervical MBB due to cardiac cath, which she states was ok. We will still need to get this confirmed; however, at this point I would recommend she wait to proceed with cervical treatment until after she is done with her shoulder. Hydrocodone is used four times per day as needed. This helps and allows her to maintain function levels. She was given short prescription of oxycodone post surgery and notified the office of this prescription. Imaging: All relevant imaging available was personally reviewed with the patient today with the following tests and results noted: MRI L spine 04/16/2020: bilateral facet hypertrophy L2-S1, worse at mild foraminal stenosis L 4-S1, moderate right foraminal stenosis L 4-5. X-ray L spine 03/24/2020: multilevel degenerative changes, including degenerative disc disease. Facet arthrosis. MRI L spine 03/17/23: severe bilateral facet osteoarthritis L2-S1. Mild bilateral neural foraminal stenosis L2-S1 mild central canal stenosis L2-3, L3-4 and L5- S1. Spondylosis has slightly worsened since 2016 Past Medical/Surgical History Reported: Medical: Currently wearing eyeglasses. : Previously 3 time(s). Diagnoses: Systemic hypertension. Arthritis. Cancer Reviewed and Unchanged. Current Medication - Anastrozole 1 MG Oral Tablet One tablet daily 30 days, 0 refills - ARIPiprazole 2 MG Oral Tablet One tablet daily 30 days, 0 refills - busPIRone HCl 15 MG Oral Tablet One tablet three times a day 30 days, 0 refills - Cyclobenzaprine HCl 10 MG Oral Tablet One tablet four times a day 14 days, 0 refills - Famotidine 20 MG Oral Tablet One tablet twice a day 30 days, 0 refills - FeroSul 325 (65 Fe) MG Oral Tablet One tablet daily 30 days, 0 refills - hydrOXYzine HCl 50 MG Oral Tablet One tablet daily 30 days, 0 refills - Ketoconazole 2% External Cream as directed 7 days, 0 refills - Lisinopril 40 MG Oral Tablet One tablet daily 90 days, 0 refills - Metoprolol Succinate ER 200MG Oral Tablet Extended Release 24 Hour 200 MG 0 days, 0 refills - NIFEdipine ER 30 MG Oral Tablet Extended Release 24 Hour One tablet daily 30 days, 0 refills - Omeprazole 40 MG Oral Capsule Delayed Release 1 capsule daily 30 days, 0 refills - Pregabalin 200 MG Oral Capsule TAKE 1 CAPSULE BY MOUTH TWICE DAILY, 30 days, 2 refills - traZODone HCl 100 MG Oral Tablet One tablet at bed time 30 days, 0 refills - Venlafaxine HCl ER 225 MG Oral Tablet Extended Release 24 Hour One tablet daily 30 days, 0 refills Social History Tobacco use: Current nonsmoker, non-smoker, and smoking status: Never smoker. Alcohol: Alcohol alcohol use six or more drinks per day 5 or more drinks per day None. Drug Use: Drug use Number of times used recreational drug/ prescription drug for nonmedical reason. None. Housing And Economic Circumstances: Lives with spouse. Marital: Currently . Allergies - Adhesive Tape 1 x5yd Review Of Systems Systemic: No fever and no chills. Cardiovascular: No chest pain or discomfort. Pulmonary: No dyspnea. Gastrointestinal: No constipation. Musculoskeletal: Lower back pain. Neurological: No motor disturbances and no sensory disturbances. Psychological: No anxiety and no depression. Skin: No rash. Physical Findings - Vitals taken 12/17/2023 10:57 am Temp-Oral 98.6 F Height 65 in Weight 215 lbs Body Mass Index 35.8 kg/m2 Body Surface Area 2 m2 Pain Level 8 Pain Level Note LOW BACK, LEFT FOOT, RIGHT KNEE General Appearance: - Normal. - In no acute distress. Neurological: - Oriented to time, place, and person. Psychiatric: - Mood was appropriate to the affect. Vital signs self reported by patient. Full exam not completed with telehealth visit Assessment - Systemic lupus erythematosus [M32.9 - Systemic lupus erythematosus, unspecified] - Sacroiliitis [M46.1 - Sacroiliitis, not elsewhere classified] - Lumbar spondylosis with radiculopathy [M47.26 - Other spondylosis with radiculopathy, lumbar region] - Lumbar stenosis with neurogenic claudication [M48.062 - Spinal stenosis, lumbar region with neurogenic claudication] - Fibromyalgia [M79.7 - Fibromyalgia] - Chronic pain syndrome [G89.4 - Chronic pain syndrome] - long-term use of opiate analgesic [Z79.891 - long-term (current) use of opiate analgesic] Therapy - Clinical summary provided to patient via portal/mailed. Patient understands and agrees with treatment plan. Questions answered. Counseling/Education - Pill Count: two HYSINGLA - Pill Count: HYDROCODONE out of medication Discussed Will continue chronic opioid therapy. Reports improvement in pain. Patient is able to maintain function levels with use of medication management. Reports no adverse side effects. Patient advised of risks and benefits of medication- including tolerance, dependence, addiction, constipation, itching, allergic reactions, sedation, impairment, respiratory depression or failure, development of hyperalgesia Patient was instructed on taking medication correctly; storing medication securely; disposing of medication properly and to never share medication. Increase Tylenol to 3000 mg per day before considering any increase in opioid. Follow-up one month Plan StartCited - Spinal stenosis, lumbar region with neurogenic claudication Hysingla ER 20 MG tablet 1 tablet q 24 hours, 30 days, 0 refills EndCited Practice Management Use of tobacco assessment performed Review of medications documented. Health Reminders - Assess BMI satisfied 12/17/2023. - Assess Need for CT Lung Screen satisfied 12/17/2023. - Assess Tobacco Use satisfied 12/17/2023. User Defined 27 Location for visit: Provider: Privacy of provider's office. [address] [place] [address].[place] [address] Patient: Patient personal setting Total time spent with patient via telecommunication minutes
--- OUTSIDE RECORDS SUMMARY | 2024-10-01 01:27 | XMS_ITS ---
Care Plan - [facility] Created on: October 01, 2024 KATHY MENDENHALL : 1970 Sex: Female Author Organization [facility] Address [address] [place] [address] Phone Care Team Providers Care Industrial Engineering Manager Name Role Phone NILESH DUKE MD Primary Care Provider [phone]
--- OUTSIDE RECORDS SUMMARY | 2024-10-01 01:27 | XMS_ITS | Encounter Summary ---
Author Organization [facility] Address [address] [place] [address] Care Team Providers Care Milling Machine Tender Name Role Phone Key Tolliver MD Primary Care Provider Reason for Visit * Reason Comments Medication Refill Encounter Details Date Type Department Care Team ([facility] Contact Info) Description 11/20/2021 [facility] [id number] [place] [place] [address] Rodolfo Truong MD [address] [place], [place] [id number] Social History Tobacco Use Types Packs/Day Years Used Date Smoking Tobacco: Never Smokeless Tobacco: Never Alcohol Use Standard Drinks/Week Comments No 0 (1 standard drink = 0.6 oz pur e alcohol) Comments No Sex and Gender Information Value Date Recorded Sex Assigned at Not on file Legal Sex Female 1:52 PM RN WELLNESS Gender Identity Not on file Sexual Orientation Not on file documented as of this encounter Plan of Treatment Upcoming Encounters Date Type Department Care Team ([facility] Contact Info) Description 04/14/2025 11:30 AM CDT Office Visit [facility] Oncology and Hematology - [place] [address] [facility] [address] [place] [address] Evan Willis MD [address] [facility] [address] [place] [address] 08/17/2025 1:00 PM RN WELLNESS Office Visit [facility] Plastic Surgery at the [facility] [address] [place] [address] Rodolfo Truong MD [address] [facility] [address] [place] [address] documented as of this encounter Visit Diagnoses Not on filedocumented in this encounter Care Teams Milling Machine Tender Relationship Specialty [place] [address] [place] [address] PCP - General Internal Medicine 11/05/18 documented as of this encounter
--- OUTSIDE RECORDS SUMMARY | 2024-10-01 01:27 | XMS_ITS | Clinical Summary ---
Author Organization [facility] Address [address] [place], [place] [address] [address] Care Team Providers Care Kiln Stacker Name Role Phone Key Tolliver MD Primary Care Provider [phone] Allergies Active Allergy Reactions Criticality Noted Date Comments Adhesive Tape-Silicones Rash,Itching,Other (See Comments) High 09/12/2016 SKIN TURNED RED, AND LOOKED LIKE A BURN, TEGADERM HAD THE WORSE REACTION TEGADERM TEGADERM Other reaction(s): Other (See Comments) SKIN TURNED RED, AND LOOKED LIKE A BURN, TEGADERM HAD THE WORSE REACTION Medications cyclobenzaprine (FLEXERIL) 10 mg tablet 3 times daily as needed. 9 Active pregabalin (LYRICA) 150 mg Capsule Take 150 mg by mouth daily. Active metoprolol succinate (TOPROL XL) 200 mg Extended Release 24 hour tablet Take by mouth daily after supper. 9 Active lisinopriL (PRINIVIL) 40 mg tablet Take by mouth. 9 Active venlafaxine 225 mg Extended Release 24 hour tablet 225 mg. 9 Active venlafaxine (Effexor XR) 150 mg Extended Release 24 hour capsuleIndicati ons:Malignant neoplasm of upper-outer quadrant of left breast in female, estrogen receptor positive (CMS/HCC) Take 1 Capsule (150 mg) by mouth daily. 30 Capsule 5 1 Active estradioL (ESTRACE) 0.01% (0.1 mg/g) vaginal cream Insert 1 Gram vaginally. 1 Active busPIRone (BUSPAR) 10 mg tablet Take 10 mg by mouth. 1 Active hydrOXYzine HCL (ATARAX) 50 mg tablet TAKE 1 TABLET BY MOUTH EVERY DAY AT BEDTIME Active traZODone (DESYREL) 150 mg tablet Take 150 mg by mouth daily at bedtime. 3 Active anastrozole (ARIMIDEX) 1 mg tablet anastrozole 1 mg tablet TAKE 1 TABLET BY MOUTH EVERY DAY 90 Tablet 2 3 Active FeroSuL 325 mg (65 mg iron) tablet take 1 tablet by mouth daily 90 Tablet 1 4 Active vitamin E 1,000 unit Capsule Take 1,000 Units by mouth daily. Active omega-3 fatty acids-fish oil 300-1,000 mg Capsule Take by mouth daily. Active multivitamin,tx -iron-ca-min (THERA-M) 27-0.4 mg Tablet Take 1 Tablet by mouth daily. Active acetaminophen (TYLENOL) 325 mg tablet Active ARIPiprazole (ABILIFY) 2 mg tablet TAKE 1 TABLET BY MOUTH EVERY DAY AFTER A MEAL Active celecoxib (CeleBREX) 200 mg capsule Take 1 Capsule by mouth daily. 3 Active buPROPion HCL (WELLBUTRIN SR) 150 mg Sustained Release 12 hour tablet Take 150 mg by mouth 2 times daily. Active NIFEdipine (PROCARDIA XL) 30 mg Extended Release 24 hour tablet Take 30 mg by mouth daily. Active famotidine (PEPCID) 20 mg tablet Take 20 mg by mouth 2 times daily. Active omeprazole (PriLOSEC) 40 mg Capsule, Delayed Release(E.C.) Take 40 mg by mouth daily. Active oxyCODONE-aceta minophen (PERCOCET) 7.5-325 mg TabletIndicatio ns:Personal history of malignant neoplasm of breast,Personal history of radiation therapy,Acquire d absence of bilateral breasts and nipples Take 1 Tablet by mouth every 4 hours as needed for moderate pain Max Daily Amount: 6 Tablets 30 Tablet 4 Active naloxone (NARCAN) 4 mg/spray [place], Non-Aerosol EMERGENCY USE ONLY: Administer 1 spray (4 mg) in one nostril one time. May repeat in alternating nostrils every 2-3 min until responsive or EMS arrives. 2 Each 3 4 Active oxyCODONE (ROXICODONE) 5 mg tabletIndicatio ns:Personal history of malignant neoplasm of breast Take 1 Tablet (5 mg) by mouth every 4 hours as needed for Pain. 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 12/19/2018 Personal history of radiation therapy 12/19/2018 Aromatase inhibitor use 12/19/2018 History of antineoplastic chemotherapy 9 Obesity (BMI 35.0-39.9 without comorbidity) 12/02 Malignant neoplasm of upper- outer quadrant of left breast in female, estrogen receptor positive 09/13/2016 Benign hypertension 09/13/2016 Acquired hypothyroidism 09/13/2016 Chronic bronchitis 09/13/2016 Situational depression 09/13/2016 Personal history of malignant neoplasm of breast Resolved Problems Problem Noted Date Diagnosed Date Resolved Date Postoperative anemia due to acute blood loss 0 11/27/2019 Lump of left breast 02/27/2019 08/11/20 19 Personal history of irradiat ion, presenting hazards to health 02/17/2020 Encounters Date Type Department Care Team Description 09/16/2024 External Device Data STL ABSTRACTION Provider, Abstract 09/02/2024 Telephone [facility] Plastic Surgery at the [address] [place] [address] Rodolfo Truong MD confirming appointment and insurance 08/18/2024 Telephone [facility] and Hematology - [place] [address] [address] [address] Evan Willis MD Missing ID 08/11/2024 1:00 PM CREW BOAT OPERATOR Office Visit [facility] at the [place] [address] [facility] [address] [address] [facility] [address] [address] [place] [address] Dedra Tillman PA Postoperative follow-up (Primary Dx) 08/11/2024 Refill [facility] at the [facility] [address] [place] [address] Dedra Tillman PA Personal history of malignant neoplasm of breast (Primary Dx) 07/28/2024 8:45 AM CREW BOAT OPERATOR Anesthesia Event [facility] Operating Room [address] [place] [address] Simin Bowie MD 07/28/2024 8:27 AM CREW BOAT OPERATOR - 07/28/2024 10:12 AM CREW BOAT OPERATOR Surgery [facility] Operating Room [address] [place] [address] Rodolfo Truong MD BREAST MAMMARY IMPLANTS REMOVAL OR EXCHANGE 07/28/2024 6:41 AM CREW BOAT OPERATOR - 07/28/2024 12:38 PM CREW BOAT OPERATOR Hospital Encounter [facility] [address] [facility] [address] [facility] [place] [address] Rodolfo Truong MD Personal history of breast cancer Discharge Disposition: Home or Self Care from Last 3 Months Immunizations Immunization Administration Dates Next Due Influenza Seasonal Unspecified Formulation IM Family History Medical History Relation Name Comments Diabetes Maternal Grandmother Unknown Mother murdered Relation Name Status Comments Father Alive Maternal Grandmother Mother Sister Alive Social History Tobacco Use Types Packs/Day Years Used Date Smoking Tobacco: Never Smokeless Tobacco: Never Tobacco Cessation:Counseling Given: Not Answered Alcohol Use Standard Drinks/Week Comments No 0 (1 standard drink = 0.6 oz pur e alcohol) Feeling Safe Answer Date Recorded Are you in a relationship wi th someone who hurts you emotionally and/or physically? No 07/28/2024 Food Insecurity Answer Date Recorded Social/Environmental Concerns No concerns Transportation Needs Answer Date Record ed Social/Environmental Concerns No concerns Housing Stability Answer Date Recorded Social/Environmental Concerns No concerns Utility Needs Answer Date Recorded Social/Environmental Concerns No concerns Comments No Sex and Gender Information Value Date Recorded Sex Assigned at Not on file Legal Sex Female 1:52 PM CREW BOAT OPERATOR Gender Identity Not on file Sexual Orientation Not on file Last Filed Vital Signs Vital Sign Reading Time Taken Comments Blood Pressure 153/86 08/11/2024 12:55 PM CREW BOAT OPERATOR Pulse 88 07/28/2024 12:10 PM CREW BOAT OPERATOR Temperature 36.3 ??C (97.4 ??F) 07/28/2024 12:[address] Respiratory Rate 20 07/28/2024 12:10 PM CREW BOAT OPERATOR Oxygen Saturation 94% 07/28/2024 12:10 PM CREW BOAT OPERATOR Inhaled Oxygen Concentration - - Weight 104.8 kg (231 lb) 08/11/2024 12:55 PM CREW BOAT OPERATOR Height 165.1 cm (5' 5 ) 08/11/2024 12:55 PM CREW BOAT OPERATOR Body Mass Index 38.44 08/11/2024 12:55 PM CREW BOAT OPERATOR Plan of Treatment Upcoming Encounters Date Type Department Care Team (Late st Contact Info) Description 04/14/2025 11:30 AM CDT Office Visit [facility] - [place] [address] [facility] [address] [place] [address] Evan Willis MD [address] [facility] [address] [place] [address] 08/17/2025 1:00 PM CREW BOAT OPERATOR Office Visit [facility] Surgery at the [facility] [address] [facility] [address] [place] [address] Rodolfo Truong MD [address] [facility] [address] [place], [place] [phone] Health Maintenance Due Date Last Done Comments Pre-Diabetes and Diabetes Screening 1969 HEPATITIS B VACCINES (1 of 3 - 19+ 3-dose series) 1988 Preventative Visit-Managed Medicaid 1988 CERVICAL CANCER SCREENING 1999 FIT-DNA Q 3 years 2014 FIT/FOBT Q 1 year 2014 Flex Sig/CT Colonography Q 5 years 2014 ZOSTER VACCINE (1 of 2) 2019 INFLUENZA VACCINE (#1) 2024 9, 05/15/2018, 07/20/2017, Additional history exists BREAST CANCER SCREENING 04/09/2025 04/09/20 24, 03/31/2024, 02/22/2023, Additional history exists COLORECTAL SCREENING 01/01/2027 01/01/2017, 06/23/20 11 Colorectal Cancer Screening 01/01/2027 DTAP/TDAP/TD VACCINES (2 - T d or Tdap) 09/11/2027 09/11/2017 Medical Devices Implanted Type Area Wolf Hunter Device Identifier Shelf Expiration Date Model / Serial / Lot Spray Operator Clip Surgiclip Ii Yordan 9.75in [id number] - [id number] Implanted:Qty: 1 on 10/23/2019 by Rodolfo Truong MD at [facility] Clip N/A: Breast MEDTRONIC - COVIDIEN [id number] 06/02/2024 [id number] / / [id number] Natrelle Inspira Softtouch Breast Implant Implanted:Qty: 1 on 07/28/2024 by Rodolfo Truong MD at [facility] Other Right: Breast [employer]ERGAN- MEDICAL [id number] 10/08/2028 SSX-750 / [id number] / Natrelle Inspira Softtouch Breast Implant Implanted:Qty: 1 on 07/28/2024 by Rodolfo Truong MD at [facility] Other Left: Breast [employer]ERGAN- MEDICAL [id number] 07/16/2026 SS-745 / [id number] / Description:Both Allergan Im plants Requisition,[id number]. Knee Replacement-Yves Plate/ Screws Of Neck Left Shoulder Replacement Explanted Type Area Wolf Hunter Device Identifier Shelf Expiration Date Model / Serial / Lot Tissue Slot Machine Floor Person W/ Suture Tabs Implanted:Qty: 1 on 10/23/2019 by Rodolfo Truong MD at [facility] Explanted:Qty: 1 on 04/06/2020 at [facility] Mammary Left: Breast [employer]ERGAN- MEDICAL [id number] 07/07/2024 133S-MX-1 3-T / [id number] / Description:Filled with 120m l 0.9% NaCl Both Allergan tissue expanders are processed on requisition [id number]. Tissue Slot Machine Floor Person With Suture Tabs Implanted:Qty: 1 on 10/23/2019 by Rodolfo Truong MD at [facility] Explanted:Qty: 1 on 04/06/2020 at [facility] Mammary Right: Breast [employer]- MEDICAL 04/25/2024 133S-MX-1 3-T / [id number] / Description:Requisition # [id number] Natrelle Inspira Softtouch Breast Implant 450cc Implanted:Qty: 1 on 04/06/2020 by Rodolfo Truong MD at [facility] Explanted:Qty: 1 on 08/16/2020 at [facility] Mammary Left: Breast [employer]- MEDICAL [id number] 08/17/2024 SSF-450 / [id number] / Description:Both Allergan Br east Implants are processed on requisition [id number]. Natrelle Inspira Softtouch Breast Implant 525cc Implanted:Qty: 1 on 04/06/2020 by Rodolfo Truong MD at [facility] Explanted:Qty: 1 on 08/16/2020 at [facility] Mammary Right: Breast [employer]ERGAN- MEDICAL [id number] 12/29/2023 SSX-525 / [id number] / Description:Requisition # [id number]. Natrelle Inspira Soft Touch Ssf-560 Implanted:Qty: 1 on 08/16/2020 at [facility] Explanted:Qty: 1 on 02/22/2023 by Rodolfo Truong MD at [facility] Right: Breast [employer]GAN- MEDICAL [id number] 06/21/2024 SSF-560 / [id number] / Description:Requisition # [id number] left breast Imp Breast Inspira Ssx 700ml Ssx-700 - [id number] Explanted:Qty: 1 on 02/22/2023 at [facility] Right: Breast [employer]- MEDICAL 01/04/2026 SSX-700 / [id number] / Natrelle Inspira Softtouch Ssx-615 Implanted:Qty: 1 on 08/16/2020 at [facility] Explanted:Qty: 1 on 02/22/2023 by Rodolfo Truong MD at [facility] Right: Breast [employer]GAN- MEDICAL [id number] 10/15/2024 SSX-615 / [id number] / Description:both Allergan re placement breast implants are processed on requisition [id number]. Imp Breast Inspira Ssf 650ml Ssf-650 - [id number] Implanted:Qty: 1 on 02/22/2023 by [facility] Explanted:Qty: 1 on 07/28/2024 by Rodolfo Truong MD at [facility] Mammary Left: Breast [employer]- MEDICAL 09/11/2027 SSF-650 / [id number] / Imp Breast Inspira Ssx 615ml Ssx-615 - [id number] Implanted:Qty: 1 on 02/22/2023 by [facility] at [facility] Explanted:Qty: 1 on 07/28/2024 by Rodolfo Truong MD at [facility] Mammary Right: Breast [employer]- MEDICAL 10/15/2024 SSX-615 / [id number] / Description:Original implant placed on 08/16/2020 was explanted today but surgeon reimplanted after trying alteratives unsuccessfully. Procedures Procedure Name Priority Date/Time Associated Diagnosis Comments UT INSJ/RPLCMT BREAST IMPLANT May MASTECTOMY 07/28/2024 8:27 AM CREW BOAT OPERATOR Personal history of breast cancer S/P bilateral mastectomy Personal history of radiation exposure POC GLUCOSE Routine 07/28/2024 7:37 AM CREW BOAT OPERATOR ENDOSCOPY, COLON, SCREENING Routine 01/01/2017 MAMMO BILAT DIAGNOSTIC Routine 05/07/2013 from Last 3 Months or Most Recently Relevant to Health Maintenance Results * (ABNORMAL) POC GLUCOSE (07/28/2024 7:37 AM CREW BOAT OPERATOR) GLUCOSE POC 131(H) 74 - 99 mg/dL 07/28/2024 7:37 AM CREW BOAT OPERATOR [facility] SPECIMEN SOURCE, GLUCOSE POC Whole Blood 07/28/2024 7:37 AM CREW BOAT OPERATOR [facility] Blood, whole 07/28/2024 7:37 AM CREW BOAT OPERATOR 07/28/2024 7:45 AM CREW BOAT OPERATOR Rodolfo Truong MD POINT OF CARE TESTING Fi nal Result [facility] CLIA# [id number] [address] [place] [address] * ENDOSCOPY, COLON, SCREENING (01/01/2017) M Brenda Delgado MD GI PROCEDURE ORDERABLES Edited Result - Final [facility] * MAMMO BILAT DIAGNOSTIC (05/07/2013) Anatomical Region Laterality Modality Breast Bilateral Other us Abstract Provider MAMMO ORDERABLES Final Result from Last 3 Months or Most Recently Relevant to Health Maintenance Insurance [facility] MEDICAID RX [place] [employer] (INTERNAL) [facility] Plans RX [employer] Medicaid RX [employer] [facility] [employer] Commercial GENERIC PA[employer]OR [employer] MEDICAID Advance Directives For more information, please contact: [phone] * Full Code (Latest Code Status on File) Date Activated Date Inactivated Comments 09/07/2021 8:04 AM 09/07/2021 5:23 PM * Full Code Date Activated Date Inactivated Comments 02/21/2021 8:31 PM 02/22/2021 7:06 PM * Full Code Date Activated Date Inactivated Comments 04/06/2020 5:32 AM 04/06/2020 1:46 PM * Full Code Date Activated Date Inactivated Comments 10/23/2019 2:10 PM 10/27/2019 4:55 PM * Full Code Date Activated Date Inactivated Comments 10/23/2019 8:44 AM 10/23/2019 2:10 PM Care Teams Kiln Stacker Relationship Specialty Start Date End Date Key Tolliver MD [address] [place] [address] PCP - General Internal Medicine 11/05/18
--- OUTSIDE RECORDS SUMMARY | 2024-10-01 01:27 | XMS_ITS | Clinical Summary ---
Author Organization [facility] Address [address] [place] [address] Phone Care Team Providers Care Business Segment Manager Name Role Phone NILESH DUKE MD Primary Care Provider [phone] Reason for Visit and Chief Complaint * PHONE CALL Problems Includes: Problems addressed during this encounter and other active Problems All Visits Onset Date Resolved Date Provider Condition S tatus Chronic Pain Syndrome 07/31/2023 NURY ECHAVARRIA PMHNP Active Last Documented On 3 1:32PM ; [facility] Plan of Treatment No Plan of Treatment Recorded Assessments Includes: Assessments from this encounter No Assessments Recorded Medical Equipment - Implanted Devices Includes: Current Devices No Medical Equipment Recorded Medications Includes: Medications discussed during this encounter and other current Medications Current Medications (continue as prescribed) Narcan 4 MG/0.1ML Nasal Liquid 01/21/2024 Provider: FELISHA SENIOR Diagnosis: Spinal stenosis, lumbar region with neurogenic claudication as directed Last Documented On 4 2:31PM By FELISHA WUBC ; [facility] Hysingla ER 20 MG Oral Table t ER 24 Hour Abuse-Deterrent 01/21/2024 Provider: FELISHA FREEMAN ANP-BC Diagnosis: Spinal stenosis, lumbar region with neurogenic claudication 1 tablet q 24 hours Last Documented On 4 2:31PM By FELISHA SENIOR ; [facility] oxyCODONE-Acetaminophen 10-325 MG Oral Tablet 01/15/20 24 Provider: Diagnosis: Last Documented On 02/01/2024 8:52AM By Lilli MAK ; [facility] traZODone HCl 100 MG Oral Tablet 11/02/2023 Provider : Diagnosis: Last Documented On 4 10:13AM By Lilli MAK ; [facility] Cyclobenzaprine HCl 10 MG Oral Tablet 10/29/2023 Pro vider: REFUGIO AMARO MD Diagnosis: Last Documented On 4 10:15AM By Lilli MAK ; [facility] Ketoconazole 2% External Cream 10/29/2023 Provider: REFUGIO AMARO MD Diagnosis: Last Documented On 4 10:15AM By Lilli MAK ; [facility] hydrOXYzine HCl 50 MG Oral Tablet 10/26/2023 Provide r: Diagnosis: Last Documented On 4 10:16AM By Lilli MAK ; [facility] Anastrozole 1 MG Oral Tablet 10/24/2023 Provider: Diagnosis: Last Documented On 4 10:16AM By Lilli MAK ; [facility] FeroSul 325 (65 Fe) MG Oral Tablet 10/24/2023 Provid er: Diagnosis: Last Documented On 4 10:18AM By Lilli MAK ; [facility] Venlafaxine HCl ER 225 MG Oral Tablet Extended R elease 24 Hour 10/23/2023 Provider: Diagnosis: Last Documented On 4 10:18AM By Lilli MAK ; [facility] Pregabalin 200 MG Oral Capsule 10/08/2023 Provider: FELISHA SENIOR Diagnosis: Fibromyalgia TAKE 1 CAPSULE BY MOUTH TWICE DAILY Last Documented On 4 1:51PM By FELISHA SENIOR ; [facility] Omeprazole 40 MG Oral Capsule Delayed Release 08/11/20 Provider: Diagnosis: Last Documented On 4 10:17AM By Lilli MAK ; [facility] Lisinopril 40 MG Oral Tablet 04/11/2023 Provider: REFUGIO AMARO MD Diagnosis: Last Documented On 3 10:40AM By Lilli MAK ; [facility] Famotidine 20 MG Oral Tablet 01/23/2023 Provider: Diagnosis: Last Documented On 02/05/2023 4:01PM By Lilli MAK ; [facility] ARIPiprazole 2 MG Oral Tablet 01/09/2023 Provider: Diagnosis: Last Documented On 02/05/2023 4:04PM By Lilli MAK ; [facility] busPIRone HCl 15 MG Oral Tablet 09/20/2022 Provider: Diagnosis: Last Documented On 02/05/2023 4:05PM By Lilli MAK ; [facility] NIFEdipine ER 30 MG Oral Tab let Extended Release 24 Hour 05/04/2022 Provider: REFUGIO AMARO MD Diagnosis: Last Documented On 05/09/2022 3:25PM By Lilli MAK ; [facility] Metoprolol Succinate ER 200M G Oral Tablet Extended Release 24 Hour 10/03/2018 Provider: Diagnosis: Last Documented On 9 3:00PM By VENKAT MAK ; [facility] Medications Administered Includes: Administered Medications from this encounter No Administered Medications Recorded Results Includes: Results discussed during this encounter No Results Recorded For Specified Dates History of Present Illness Includes: History of Present Illness from this encounter No History of Present Illness Recorded Social History Description Last Updated Tobacco non-user 11/07/2023 Last Documented On 4 11:54AM ; [facility] Alcohol 07/31/2023 Last Documented On 4 11:54AM ; [facility] Consuming 5 or more drinks per day None 07/31/2023 Last Documented On 4 11:54AM ; [facility] Current nonsmoker 07/31/2023 Last Documented On 4 11:54AM ; [facility] Drug use 07/31/2023 Last Documented On 4 11:54AM ; [facility] Lives with spouse 07/31/2023 Last Documented On 4 11:54AM ; [facility] Non-smoker 07/31/2023 Last Documented On 4 11:54AM ; [facility] Number of times used recreat ional drug/ prescription drug for nonmedical reason. None 07/31/2023 Last Documented On 4 11:54AM ; [facility] Smoking status : Never smoker 08/07/2019 Last Documented On 4 11:54AM ; [facility] Currently 10/03/2018 Last Documented On 4 11:54AM ; [facility] Medical History Includes: Medical History addressed during this encounter Description Last Updated Reviewed and Unchanged 10/10/2019 Last Documented On 4 11:54AM ; [facility] Currently wearing eyeglasses 10/03/2018 Last Documented On 4 11:54AM ; [facility] Previously 3 time(s) 10/03/2018 Last Documented On 4 11:54AM ; [facility] History of arthritis 10/03/2018 Last Documented On 4 11:54AM ; [facility] History of cancer 10/03/2018 Last Documented On 4 11:54AM ; [facility] History of hypertension 10/03/2018 Last Documented On 4 11:54AM ; [facility] Family History Includes: Family History addressed during this encounter No Family History Recorded Review of Systems Includes: Review of Systems from this encounter No Review of Systems Recorded Mental Status Includes: Mental Status from this encounter No Mental Status Recorded Functional Status Includes: Functional Status from this encounter No Functional Status Recorded Physical Exam Includes: Physical Exam from this encounter No Physical Exam Recorded Allergies Includes: Active Allergies Substance Type Reaction Onset Date Resolved Date Statu s Adhesive Tape 1 x5yd Allergy 07/31/2023 Active Last Documented On 4 8:53AM ; [facility] Encounters Encounter Provider Location Date Check-In Time Check-Out Time Diagnosis * PHONE CALL FELISHA SENIOR 12/21/2023 11:54AM 11:59PM Insurance Includes: Active Insurance Policies Plan Name Member ID Group # Subscriber Relationship Effect nieves Dates - [facility] [id number] KATHY Sanchez Clinical Notes Includes: Clinical Notes from this encounter * Progress note Date Encounter Last Documented by 12/21/2023 * PHONE CALL Last documented on 12/28/2023; 8:42 AM, FELISHA GIBSON ANP-; [facility] Active Problems & Conditions - Chronic Pain Syndrome Chief Complaint Phone Call - Chief Concern: reason for call:pt wanted to let you know she was given tramadol, i just picked it up but tramadol doesn't do anything for me , she just wanted you to be aware she was given this rx, liborios pt phone # for return call:[phone] date/initials:12/21/23, kms. Past Medical/Surgical History Reported: Medical: Currently wearing [...] tablet daily 30 days, 0 refills - Hysingla ER 20 MG Oral Tablet ER 24 Hour Abuse-Deterrent 1 tablet q 24 hours, 30 days, 0 refills - Ketoconazole 2% [...] . Allergies - Adhesive Tape 1 x5yd Health Reminders - Assess Need for CT Lung Screen satisfied 12/21/2023. - Assess Tobacco Use satisfied 12/21/2023.
--- OUTSIDE RECORDS SUMMARY | 2024-10-01 01:27 | XMS_ITS | Clinical Summary ---
Author Organization [facility] Address [address] [place] [address] Phone Care Team Providers Care Locate Technician Name Role Phone Key Tolliver MD Primary Care Provider Allergies No known active allergies Medications No known medications Social History Tobacco Use Types Packs/Day Years Used Date Smoking Tobacco: Never Alcohol Use Standard Drinks/Week Comments Not Currently 0 (1 standard drink = 0.6 oz pur e alcohol) Comments No Sex and Gender Information Value Date Recorded Sex Assigned at Not on file Legal Sex Female 11:30 PM CDT Gender Identity Not on file Sexual Orientation Not on file Last Filed Vital Signs Vital Sign Reading Time Taken Comments Blood Pressure 127/67 03/14/2020 9:53 PM CDT Pulse 77 03/14/2020 9:53 PM CDT Temperature 37.1 ??C (98.8 ??F) 03/14/2020 8:05 PM CD T Respiratory Rate 13 03/14/2020 9:53 PM CDT Oxygen Saturation 97% 03/14/2020 9:53 PM CDT Inhaled Oxygen Concentration - - Weight 65.8 kg (145 lb) 03/14/2020 8:05 PM CDT Height 165.1 cm (5' 5 ) 03/14/2020 8:05 PM CDT Body Mass Index 24.13 03/14/2020 8:05 PM CDT Plan of Treatment Health Maintenance Due Date Last Done Comments Hepatitis C Virus (HCV) Screening 1969 Mammogram Unilateral 1969 TdaP Immunization 1969 Hepatitis B Immunization (1 of 3 - 19+ 3-dose series) 1988 Colonoscopy 2014 Colorectal Cancer Screening 2014 Cologuard 2019 Immunochemical Fecal Occult Blood 2019 Pneumococcal Immunization (5 0+ years) (1 of 1 - PCV) 2019 Zoster Immunization (1 of 2) 2019 Influenza Immunization (#1) 2024 SARS-COV-2 Immunization ( season) 2024 08/03/2021, 12/25/2020, 12/02/2020 Respiratory Syncytial Virus (RSV) Immunization (Adult) (1 - 1-dose 75+ series) 2044 Meningococcal Immunization (ACWY) Aged Out No longer eligible b ased on patient's age to complete this topic Pneumococcal Immunization Combined Aged Out No longer eligible b ased on patient's age to complete this topic Rotavirus Immunization Aged Out No lo nger eligible based on patient's age to complete this topic Insurance MEDICAID [employer] Care Teams Locate Technician Relationship Specialty Start Date End Date Key Tolliver MD [address] [place] [address] PCP - General Internal Medicine 03/14/20
--- OUTSIDE RECORDS SUMMARY | 2024-10-01 01:28 | XMS_ITS | Clinical Summary ---
Author Organization [facility] Address [address] [place] [address] Phone Care Team Providers Care Finance Director Name Role Phone LEILANI MABRY, NILESH Primary Care Provider [phone] Reason for Visit and Chief Complaint RX ISSUE/REFILL Problems Includes: Problems addressed during this encounter and other active Problems All Visits Onset Date Resolved Date Provider Condition S tatus Chronic Pain Syndrome 07/31/2023 NURY ECHAVARRIA PMHNP Active Last Documented On 3 1:32PM ; [facility] Plan of Treatment No Plan [...] On 4 2:31PM By FELISHA WUBC ; [facility] Hysingla ER 20 MG Oral Table t ER 24 Hour Abuse-Deterrent 01/21/2024 Provider: FELISHA HERRERA-BC Diagnosis: Spinal stenosis, lumbar region with neurogenic claudication 1 tablet q 24 hours Last Documented On 4 2:31PM By FELISHA SENIOR ; [facility] oxyCODONE-Acetaminophen 10-325 MG Oral Tablet 05/14/20 24 Provider: Diagnosis: Last Documented On 02/01/2024 8:52AM By Lilli MAK ; [facility] traZODone HCl 100 MG Oral Tablet 11/02/2023 Provider : Diagnosis: Last Documented On 4 10:13AM By Lilli MAK ; [facility] Cyclobenzaprine HCl 10 MG Oral Tablet 10/29/2023 Pro vider: REFUGIO AMARO MD Diagnosis: Last Documented On 4 10:15AM By Lilli MAK ; [facility] Ketoconazole 2% External Cream 10/29/2023 Provider: REFUGIO AMARO MD Diagnosis: Last Documented On 4 10:15AM By Lilli MAK ; [facility] hydrOXYzine HCl 50 MG Oral Tablet 10/26/2023 Provide r: Diagnosis: Last Documented On 4 10:16AM By Lilli MAK ; [facility] Anastrozole 1 MG Oral Tablet 10/24/2023 Provider: Diagnosis: Last Documented On 4 10:16AM By Lilli MAK ; [facility] FeroSul 325 (65 Fe) MG Oral Tablet 10/24/2023 Provid er: Diagnosis: Last Documented On 4 10:18AM By Lilli MAK ; [facility] Venlafaxine HCl ER 225 MG Oral Tablet Extended R elease 24 Hour 10/23/2023 Provider: Diagnosis: Last Documented On 4 10:18AM By Lilli MAK ; [facility] Pregabalin 200 MG Oral Capsule 10/08/2023 Provider: FELISHA SENIOR Diagnosis: Fibromyalgia TAKE 1 CAPSULE BY MOUTH TWICE DAILY Last Documented On 4 1:51PM By FELISHA SENIOR ; [facility] Omeprazole 40 MG Oral Capsule Delayed Release 08/11/20 Provider: Diagnosis: Last Documented On 4 10:17AM By Lilli MAK ; [facility] Lisinopril 40 MG Oral Tablet 04/11/2023 Provider: REFUGIO AMARO MD Diagnosis: Last Documented On 3 10:40AM By Lilli MAK ; [facility] Famotidine 20 MG Oral Tablet 01/23/2023 Provider: Diagnosis: Last Documented On 02/05/2023 4:01PM By Lilli MAK ; [facility] ARIPiprazole 2 MG Oral Tablet 01/09/2023 Provider: Diagnosis: Last Documented On 02/05/2023 4:04PM By Lilli MAK ; [facility] busPIRone HCl 15 MG Oral Tablet 09/20/2022 Provider: Diagnosis: Last Documented On 02/05/2023 4:05PM By Lilli MAK ; [facility] NIFEdipine ER 30 MG Oral Tab let Extended Release 24 Hour 05/04/2022 Provider: REFUGIO AMARO MD Diagnosis: Last Documented On 05/09/2022 3:25PM By Lilli MAK ; [facility] Metoprolol Succinate ER 200M G Oral Tablet Extended Release 24 Hour 10/03/2018 Provider: Diagnosis: Last Documented On 9 3:00PM By VENKAT MAK ; [facility] Medications Administered Includes: Administered Medications from this encounter No Administered Medications Recorded Results Includes: Results discussed during this encounter No Results Recorded For Specified Dates History of Present Illness Includes: History of Present Illness from this encounter No History of Present Illness Recorded Social History Description Last Updated Tobacco non-user 11/07/2023 Last Documented On 4 2:03PM ; [facility] Alcohol 07/31/2023 Last Documented On 4 2:03PM ; [facility] Consuming 5 or more drinks per day None 07/31/2023 Last Documented On 4 2:03PM ; [facility] Current nonsmoker 07/31/2023 Last Documented On 4 2:03PM ; [facility] Drug use 07/31/2023 Last Documented On 4 2:03PM ; [facility] Lives with spouse 07/31/2023 Last Documented On 4 2:03PM ; [facility] Non-smoker 07/31/2023 Last Documented On 4 2:03PM ; [facility] Number of times used recreat ional drug/ prescription drug for nonmedical reason. None 07/31/2023 Last Documented On 4 2:03PM ; [facility] Smoking status : Never smoker 08/07/2019 Last Documented On 4 2:03PM ; [facility] Currently 10/03/2018 Last Documented On 4 2:03PM ; [facility] Medical History Includes: Medical History addressed during this encounter Description Last Updated Reviewed and Unchanged 10/10/2019 Last Documented On 4 2:03PM ; [facility] Currently wearing eyeglasses 10/03/2018 Last Documented On 4 2:03PM ; [facility] Previously 3 time(s) 10/03/2018 Last Documented On 4 2:03PM ; [facility] History of arthritis 10/03/2018 Last Documented On 4 2:03PM ; [facility] History of cancer 10/03/2018 Last Documented On 4 2:03PM ; [facility] History of hypertension 10/03/2018 Last Documented On 4 2:03PM ; [facility] Family History Includes: Family History addressed during [...] Active Last Documented On 4 8:53AM ; [facility] Encounters Encounter Provider Location Date Check-In Time Check-Out Time Diagnosis RX ISSUE/REFILL FELISHA HERRERA-TAMIKO 12/14/2023 2:04PM 11:59PM Insurance Includes: Active Insurance Policies Plan Name Member ID Group # Subscriber Relationship Effect nieves Dates 1 - [facility] [id number] KATHY Sanchez Clinical Notes Includes: Clinical Notes from this encounter * Progress note Date Encounter Last Documented by 12/14/2023 RX ISSUE/REFILL Last documented on 12/17/2023; 2:39 PM, FELISHA GIBSON ANP-; [facility] Active Problems & Conditions - Chronic Pain Syndrome Chief Complaint Phone Call - Chief Concern: Reason for call:RX REFILL Patient is requesting a refill on HYSINGLA ER 20 ~How is medication taken? DAILY ~How many are left?6 Risk Assessment Score: LOW ~[place]11/20/23 Last Office Visit: 11/30/23 TH ~ pt phone # for Return call: ~Last Drug Screen:10/08/23 ~Date/Initials: 12/14/23 CB. Past Medical/Surgical History Reported: Medical: Currently wearing [...] Assess Need for CT Lung Screen satisfied 12/14/2023. - Assess Tobacco Use satisfied 12/14/2023.
--- OUTSIDE RECORDS SUMMARY | 2024-10-01 01:28 | XMS_ITS | Clinical Summary ---
Author Organization [facility] Address [address] [place] [address] Phone Care Team Providers Care Expense Clerk Name Role Phone LEILANI MABRY, NILESH Primary Care Provider [phone] Reason for Visit and Chief Complaint RX ISSUE/REFILL Problems Includes: Problems addressed during this encounter and other active Problems All Visits Onset Date Resolved Date Provider Condition S tatus Chronic Pain Syndrome 07/31/2023 NURY ECHAVARRIA PMHNP Active Last Documented On 3 1:32PM ; [facility] Plan of Treatment No Plan of [...] On 4 2:31PM By FELISHA WUBC ; [facility] Hysingla ER 20 MG Oral Table t ER 24 Hour Abuse-Deterrent 01/21/2024 Provider: FELISHA HERRERA-BC Diagnosis: Spinal stenosis, lumbar region with neurogenic claudication 1 tablet q 24 hours Last Documented On 4 2:31PM By FELISHA SENIOR ; [facility] oxyCODONE-Acetaminophen 10-325 MG Oral Tablet 05/14/20 24 Provider: Diagnosis: Last Documented On 02/01/2024 8:52AM By Lilli MAK ; [facility] traZODone HCl 100 MG Oral Tablet 11/02/2023 Provider : Diagnosis: Last Documented On 4 10:13AM By Lilli MAK ; [facility] Cyclobenzaprine HCl 10 MG Oral Tablet 10/29/2023 Pro vider: REFUGIO AMARO MD Diagnosis: Last Documented On 4 10:15AM By Lilli MAK ; [facility] Ketoconazole 2% External Cream 10/29/2023 Provider: REFUGIO AMARO MD Diagnosis: Last Documented On 4 10:15AM By Lilli MAK ; [facility] hydrOXYzine HCl 50 MG Oral Tablet 10/26/2023 Provide r: Diagnosis: Last Documented On 4 10:16AM By Lilli MAK ; [facility] Anastrozole 1 MG Oral Tablet 10/24/2023 Provider: Diagnosis: Last Documented On 4 10:16AM By Lilli MAK ; [facility] FeroSul 325 (65 Fe) MG Oral Tablet 10/24/2023 Provid er: Diagnosis: Last Documented On 4 10:18AM By Lilli MAK ; [facility] Venlafaxine HCl ER 225 MG Oral Tablet Extended R elease 24 Hour 10/23/2023 Provider: Diagnosis: Last Documented On 4 10:18AM By Lilli MAK ; [facility] Pregabalin 200 MG Oral Capsule 10/08/2023 Provider: FELISHA SENIOR Diagnosis: Fibromyalgia TAKE 1 CAPSULE BY MOUTH TWICE DAILY Last Documented On 4 1:51PM By FELISHA SENIOR ; [facility] Omeprazole 40 MG Oral Capsule Delayed Release 08/11/20 Provider: Diagnosis: Last Documented On 4 10:17AM By Lilli MAK ; [facility] Lisinopril 40 MG Oral Tablet 04/11/2023 Provider: REFUGIO AMARO MD Diagnosis: Last Documented On 3 10:40AM By Lilli MAK ; [facility] Famotidine 20 MG Oral Tablet 01/23/2023 Provider: Diagnosis: Last Documented On 02/05/2023 4:01PM By Lilli MAK ; [facility] ARIPiprazole 2 MG Oral Tablet 01/09/2023 Provider: Diagnosis: Last Documented On 02/05/2023 4:04PM By Lilli MAK ; [facility] busPIRone HCl 15 MG Oral Tablet 09/20/2022 Provider: Diagnosis: Last Documented On 02/05/2023 4:05PM By Lilli MAK ; [facility] NIFEdipine ER 30 MG Oral Tab let Extended Release 24 Hour 05/04/2022 Provider: REFUGIO AMARO MD Diagnosis: Last Documented On 05/09/2022 3:25PM By Lilli MAK ; [facility] Metoprolol Succinate ER 200M G Oral Tablet Extended Release 24 Hour 10/03/2018 Provider: Diagnosis: Last Documented On 9 3:00PM By VENKAT MAK ; [facility] Medications Administered Includes: Administered Medications from this encounter No Administered Medications Recorded Results Includes: Results discussed during this encounter No Results Recorded For Specified Dates History of Present Illness Includes: History of Present Illness from this encounter No History of Present Illness Recorded Social History Description Last Updated Tobacco non-user 11/07/2023 Last Documented On 4 1:35PM ; [facility] Alcohol 07/31/2023 Last Documented On 4 1:35PM ; [facility] Consuming 5 or more drinks per day None 07/31/2023 Last Documented On 4 1:35PM ; [facility] Current nonsmoker 07/31/2023 Last Documented On 4 1:35PM ; [facility] Drug use 07/31/2023 Last Documented On 4 1:35PM ; [facility] Lives with spouse 07/31/2023 Last Documented On 4 1:35PM ; [facility] Non-smoker 07/31/2023 Last Documented On 4 1:35PM ; [facility] Number of times used recreat ional drug/ prescription drug for nonmedical reason. None 07/31/2023 Last Documented On 4 1:35PM ; [facility] Smoking status : Never smoker 08/07/2019 Last Documented On 4 1:35PM ; [facility] Currently 10/03/2018 Last Documented On 4 1:35PM ; [facility] Medical History Includes: Medical History addressed during this encounter Description Last Updated Reviewed and Unchanged 10/10/2019 Last Documented On 4 1:35PM ; [facility] Currently wearing eyeglasses 10/03/2018 Last Documented On 4 1:35PM ; [facility] Previously 3 time(s) 10/03/2018 Last Documented On 4 1:35PM ; [facility] History of arthritis 10/03/2018 Last Documented On 4 1:35PM ; [facility] History of cancer 10/03/2018 Last Documented On 4 1:35PM ; [facility] History of hypertension 10/03/2018 Last Documented On 4 1:35PM ; [facility] Family History Includes: Family History [...] Active Last Documented On 4 8:53AM ; [facility] Encounters Encounter Provider Location Date Check-In Time Check-Out Time Diagnosis RX ISSUE/REFILL FELISHA HERERRA-TAMIKO 01/18/2024 1:35PM 11:59PM Insurance Includes: Active Insurance Policies Plan Name Member ID Group # Subscriber Relationship Effect nieves Dates 1 - [facility] [id number] KATHY Sanchez Clinical Notes Includes: Clinical Notes from this encounter * Progress note Date Encounter Last Documented by 01/18/2024 RX ISSUE/REFILL Last documented on 01/21/2024; 2:27 PM, FELISHA GIBSON ANP-; [facility] Active Problems & Conditions - Chronic Pain Syndrome Chief Complaint Phone Call - Chief Concern: Reason for call:RX REFILL PT CALLED AFTER LUNCH ON SUNDAY. SHE IS AWARE YOU ARE OUT AND WILL NT GET THIS UNTIL SUNDAY. PT ALSO SAID SHE GOT HER OXYCODONE FILLED PRESCRIBED BY DR BARRIOS AND WAS TOLD BY YOU SHE SHOULD TAKE IT WITH HER HYSINGLA. I DO NOT SEE ANY NOTE SAYING . I TOLD PT WE NEEDED TO CHECK WITH YOU . Patient is requesting a refill on HYSINGLA ER 20 ~How is medication taken? DAILY ~How many are left?1 Risk Assessment Score: ~[place]19[place]23 Last Office Visit: 12/17/23 ~ pt phone # for Return call: ~Last Drug Screen:10/08/23 ~Date/Initials: 01/18/24 CB. Past Medical/Surgical History Reported: Medical: Currently [...] . Allergies - Adhesive Tape 1 x5yd Plan StartCited - Spinal stenosis, lumbar region with neurogenic claudication Hysingla ER 20 MG tablet 1 tablet q 24 hours, 30 days, 0 refills Narcan 4 MG/0.1ML each as directed, 30 days, 0 refills EndCited Health Reminders - Assess Need for CT Lung Screen satisfied 01/18/2024. - Assess Tobacco Use satisfied 01/18/2024.
--- OUTSIDE RECORDS SUMMARY | 2024-10-01 01:28 | XMS_ITS | Encounter Summary ---
Author Organization [facility] Address [address] [place] [address] Care Team Providers Care Premises Technician Name Role Phone Key Tolliver MD Primary Care Provider [phone] Reason for Visit * Reason Comments Medication Refill Encounter Details Date Type Department Care Team ([facility] Contact Info) Description 05/11/2020 [facility] [id number] [facility] [address] [place] [address] Rodolfo Truong MD [address] [facility] [address] [place] [address] Malignant neoplasm of upper-outer quadrant of left breast in female, estrogen receptor positive (CMS/HCC) Social History Tobacco Use Types Packs/Day Years Used Date Smoking Tobacco: Never Smokeless Tobacco: Never Alcohol Use Standard Drinks/Week Comments No 0 (1 standard drink = 0.6 oz pur e alcohol) Comments No Sex and Gender Information Value Date Recorded Sex Assigned at Not on file Legal Sex Female 1:52 PM RETURNING OFFICER Gender Identity Not on file Sexual Orientation Not on file COVID-19 Exposure Response Date Recorded In the last month, have you been in contact with someone who was confirmed or suspected to have Coronavirus / COVID-19? No / Unsure 04/29/2020 10:13 AM CDT documented as of this encounter Plan of Treatment Upcoming Encounters Date Type Department Care Team (Late Contact Info) Description 04/14/2025 11:30 AM CDT Office Visit [facility] Oncology and Hematology - [address] [place] [address] Evan Willis MD [address] [place] [address] 08/17/2025 1:00 PM RETURNING OFFICER Office Visit [facility] Plastic Surgery at the [facility] [address] [place] [id number] Rodolfo Truong MD [address] [facility] [address] [place], [place] [id number] documented as of this encounter Visit Diagnoses Diagnosis Malignant neoplasm of upper-outer quadrant of left breast in female, estrogen receptor positive (CMS/HCC) documented in this encounter Care Teams Premises Technician Relationship Specialty Start Date End Date Key Tolliver MD [address] [place] [address] PCP - General Internal Medicine 11/05/18 documented as of this encounter
--- OUTSIDE RECORDS SUMMARY | 2024-10-01 01:28 | XMS_ITS | Clinical Summary ---
Author Organization [facility] Address [address] [place] [address] [place] [address] Care Team Providers Care [employer] Consultant Name Role Phone Unavailable Primary Care Provider Unavailabl e Allergies Active Allergy Reactions Criticality Noted Date Comments Tape Rash Low 09/12/2016 Medications anastrozole 1 MG tablet TAKE 1 TABLET(1 MG) BY MOUTH DAILY 7 Active cholecalciferol (D3-50) 03867 units capsule Take 100,000 Units by mouth once a week. Active cyclobenzaprine 10 MG tablet TK 1/2 TO 1 T PO TID PRN 8 Active ferrous sulfate, 65 mg elemental, 325 (65 FE) MG tablet Take 325 mg by mouth. Active fluoxetine 20 MG capsule TK 2 CS PO QAM AND 1 C PO Q AFTERNOON 0 8 Active fluticasone propionate 50 MCG/ACT nasal spray U 1 SPR NASALLY D 0 8 Active hydroxychloroqu ine 200 MG tablet TAKE 1 TABLET BY MOUTH TWICE DAILY 8 Active levothyroxine 50 MCG tablet Take 50 mcg by mouth. Active lisinopril 20 MG tablet TK 1 T PO QD 8 Active metoprolol tartrate 100 MG tablet TK 1 T PO QD WITH A MEAL 8 Active multi vitamin/mineral s (VITAMINS/WEAVER DOBBY LOOM ALS) tablet Take 1 tablet by mouth. Active omeprazole 40 MG capsule TK ONE C PO QAM 8 Active trazodone 50 MG tablet Take 50 mg by mouth. Active venlafaxine 24 hr 75 MG 24 hr capsule TAKE 1 CAPSULE(75 MG) BY MOUTH DAILY 11/21/201 8 Active Active Problems Problem Noted Date Diagnosed Date Lumbar radiculopathy 08/01/2018 Family History Medical History Relation Comments Diabetes Maternal Grandfather Hypertension Maternal Grandfather Relation Status Comments Maternal Grandfather Social History Tobacco Use Types Packs/Day Years Used Date Smoking Tobacco: Never Smokeless Tobacco: Never Alcohol Use Standard Drinks/Week Comments No 0 (1 standard drink = 0.6 oz pur e alcohol) AUDIT-C Answer Date Recorded Frequency of Alcohol Consumption Never 08/01/2018 Average Number of Drinks Not on file 018 Frequency of Binge Drinking Not on file 07/05 Comments No Sex and Gender Information Value Date Recorded Sex Assigned at Not on file Legal Sex Female 7:50 PM CDT Gender Identity Not on file Sexual Orientation Not on file Last Filed Vital Signs Vital Sign Reading Time Taken Comments Blood Pressure 146/90 08/01/2018 1:02 PM FIRE INSPECTOR Pulse 89 08/01/2018 1:02 PM FIRE INSPECTOR Temperature 36.6 ??C (97.9 ??F) 08/01/2018 1:02 PM CS T Respiratory Rate 20 08/01/2018 1:02 PM FIRE INSPECTOR Oxygen Saturation 100% 08/01/2018 1:02 PM FIRE INSPECTOR Inhaled Oxygen Concentration - - Weight 88 kg (194 lb) 08/01/2018 1:02 PM FIRE INSPECTOR Height 167.6 cm (5' 6 ) 08/01/2018 1:02 PM FIRE INSPECTOR Body Mass Index 31.31 08/01/2018 1:02 PM FIRE INSPECTOR Plan of Treatment Health Maintenance Due Date Last Done Comments Colorectal Cancer Screening Colonoscopy (10 Years) 1969 Annual Physical 1972 Hepatitis C 1987 Hepatitis B Vaccines (1 of 3 - 19+ 3-dose series) 1988 Mammogram Screening 2009 Zoster Vaccines (1 of 2) 2019 COVID-19 Vaccine (2023-2 5 season) 2024 Influenza Adult (#1) 2024 05/15/2018, 07/20/2017 DTaP, Tdap and Td Vaccines ( 2 - Td or Tdap) 09/11/2027 09/11/2017 Meningococcal B Vaccine Aged Out No l onger eligible based on patient's age to complete this topic Meningococcal Vaccine Aged Out No leonel claudia eligible based on patient's age to complete this topic Pneumococcal Vaccine: Pediatrics (0 to 5 Years) and At-Risk Patients (6 to 64 Years) Aged Out No longer eligible b ased on patient's age to complete this topic RSV Immunizations Under 20 Months Aged Out No longer eligible b ased on patient's age to complete this topic Insurance
--- OUTSIDE RECORDS SUMMARY | 2024-10-01 01:28 | XMS_ITS | Encounter Summary ---
Author Organization [facility] Address [address] [place] [address] Care Team Providers Care Child Care Development Specialist Name Role Phone Key Tolliver MD Primary Care Provider [phone] Reason for Visit * Reason Comments Medication Refill Encounter Details Date Type Department Care Team ([facility] Contact Info) Description 11/05/2019 Refill [facility] Plastic Surgery and Burn [address] [address] Rodolfo Truong MD [address] [address] [place] [address] Social History Tobacco Use Types Packs/Day Years Used Date Smoking Tobacco: Never Smokeless Tobacco: Never Alcohol Use Standard Drinks/Week Comments No 0 (1 standard drink = 0.6 oz pur e alcohol) Comments No Sex and Gender Information Value Date Recorded Sex Assigned at Not on file Legal Sex Female 1:52 PM ELEMENTARY SCHOOL REGISTRAR Gender Identity Not on file Sexual Orientation Not on file documented as of this encounter Plan of Treatment Upcoming Encounters Date Type Department Care Team (Late Contact Info) Description 04/14/2025 11:30 AM CDT Office Visit [facility] Oncology and Hematology - [address] [address] [place] [address] Evan Willis MD [address] [facility] [address] [place] [address] 08/17/2025 1:00 PM ELEMENTARY SCHOOL REGISTRAR Office Visit [facility] Plastic Surgery at the [facility] [address] [address] [address] [place] [address] Rodolfo Truong MD [address] [facility] [address] [place] [address] documented as of this encounter Visit Diagnoses Not on filedocumented in this encounter Care Teams Child Care Development Specialist Relationship Specialty Start Date End Date Key Tolliver MD [address] [place] [address] PCP - General Internal Medicine 11/05/18 documented as of this encounter
--- OUTSIDE RECORDS SUMMARY | 2024-10-01 01:28 | XMS_ITS | CONTINUITY OF CARE DOCUMENT ---
Author Name elie delgadillo Address Unknown Organization [facility] Address [address] [place] [address] Phone [phone] Care Team Providers Care Prime Minister Name Role Phone Charles Kingston MD Unavailable [phone] RIGOBERTO SNOWDEN DPM Unavailable REFUGIO AMARO MD Unavailable PROBLEMS Condition Status Date Provider Notes Obesity active Josh Agarwal FAMILY HISTORY OF ISCHEMIC HEART DISEASE completed - Charles Kingston MD CAD-09/13 CATH NEG EF 60 completed - Charles Hernandez i, MD DYSPNEA ON EXERTION completed - Charles Kingston MD SINUS TACHYCARDIA active Brina Devi Family History of CVA or Stroke: completed - Charles Kingston MD Osteoporosis, drug-induced active Clay hyatt MD Stage IIIB ER pos Invasive ductal carcinoma, left breast active Clay Byrne MD COPD active Charles Kingston MD Hypothyroidism active Josh Agarwal Pulmonary hypertension active Charles Dsouza Lupus active Charles Kingstno MD Hypertension active Charles Kingston MD Abnormal EKG active Josh Agarwal Exposure to COVID-19 coronavirus active Charles Kingston MD Shortness of breath active Charles Kingston MD Family History of Hypertension: completed - Charles Kingston MD Family History of Hyperlipidemia: completed - Charles Kingston MD CHEST PAIN-08/12 STRESS ECHO NEG completed - Charles Kingston MD ENCOUNTERS Date Type Provider Location Encounter Diag nosis - In-person encounter Office Visit Charles Kingston MD [facility] Shortness of breath - In-person encounter Office Visit Charles Kingston MD [facility] - In-person encounter Office Visit Charles Kingston MD [facility] - In-person encounter Office Visit Charles Kingston MD [facility] Exposure to COVID-19 coronavirus - In-person encounter Office Visit Charles Kingston MD [facility] CHEST PAIN-08/12 STRESS ECHO NEGDYSPNEA ON EXERTIONAbnormal EKG - In-person encounter Office Visit Charles Kingston MD [facility] Pulmonary hypertensionLupusHypertension - In-person encounter Office Visit Charles Kingston MD [facility] FAMILY HISTORY OF ISCHEMIC HEART DISEASEFamily History of CVA or Stroke:COPDHypothyroidism - In-person encounter Office Visit Clay Byrne MD [facility] - In-person encounter Office Visit Charles Kingston MD [facility] - In-person encounter Office Visit Charles Kingston MD [facility] CAD-09/13 CATH NEG EF 60Family History of Hyperlipidemia:Family History of Hypertension: - In-person encounter Office Visit Clay Byrne MD [facility] Osteoporosis, drug-inducedStage IIIB ER pos Invasive ductal carcinoma, left breast - In-person encounter Office Visit Charles Kingston MD [facility] - In-person encounter Office Visit Charles Kingston MD [facility] SINUS TACHYCARDIA - In-person encounter Office Visit Charles Kingston MD [facility] VITAL SIGNS Date Observation Value Provider Body Mass Index (Ratio) 36.61 kg/m2 Sami Mitchell blood pressure, cuff size regular Fredy Reid blood pressure, diastolic 98 mm[Hg] Fredy dominguez Reid blood pressure, systolic 138 mm[Hg] Ayan Reid pulse rate 67 /min Ellen Reid weight E&M 220 [lb_av] Ellen Reid oxygen saturation, oximetry 98 % Ellen Reid respiratory rate E&M 12 /min Ellen Reid height E&M 65 [in_i] Ellenisabelle Reid Body Mass Index (Ratio) 36.94 kg/m2 Davide aguirre Demetrius blood pressure, diastolic 86 mm[Hg] Li nkLogic blood pressure, systolic 132 mm[Hg] Katt kLogic pulse rate 73 /min Preston y blood pressure, cuff size regular Ja rret blood pressure, diastolic 86 mm[Hg] Ja rret blood pressure, systolic 132 mm[Hg] Jar ret oxygen saturation, oximetry 95 % Preston respiratory rate E&M 16 /min Preston weight E&M 222 [lb_av] Preston y height E&M 65 [in_i] Preston da y Body Mass Index (Ratio) 35.77 kg/m2 Marianne Caceres blood pressure, diastolic 94 mm[Hg] Sa ra Lane blood pressure, systolic 158 mm[Hg] Hector a Lane oxygen saturation, oximetry 95 % Payton [address] respiratory rate E&M 19 /min Payton Si ms pulse rate 82 /min Payton Lane blood pressure, cuff size large Sa ra Lane weight E&M 215 [lb_av] Payton Lane height E&M 65 [in_i] Payton Lane Body Mass Index (Ratio) 34.61 kg/m2 Marianne gould Anayelimeyer blood pressure, diastolic 104 mm[Hg] Li nkLogic blood pressure, systolic 162 mm[Hg] Katt kLogic blood pressure, cuff size large Ke rri Gruenenfelder blood pressure, diastolic 104 mm[Hg] Ke rri Gruenenfelder blood pressure, systolic 162 mm[Hg] Negrita Garrisonnfelder oxygen saturation, oximetry 97 % Kerry Bladimirnfelder respiratory rate E&M 18 /min Kerry G rajienenfelder pulse rate 91 /min Kerry Rodrigoe lder weight E&M 208 [lb_av] Kerry Karinenfe lder height E&M 65 [in_i] Kerry Karinenfe lder Body Mass Index (Ratio) 35.77 kg/m2 Artur micki Stefano blood pressure, diastolic 88 mm[Hg] Abelardo beasley Stefano blood pressure, systolic 127 mm[Hg] Racheal high Stefano weight E&M 215 [lb_av] Josh Lundb erg height E&M 65 [in_i] Josh Pontaba erg Body Mass Index (Ratio) 38.60 kg/m2 Artur micki Stefano blood pressure, cuff size regular Cy nthallie Stovall blood pressure, diastolic 78 mm[Hg] Cy nthia Wilman blood pressure, systolic 142 mm[Hg] Pratibha thirebekah Stovall oxygen saturation, oximetry 96 % Lalita Stovall respiratory rate E&M 16 /min Lalita Stovall pulse rate 80 /min Lalita martinez weight E&M 232 [lb_av] Lalita Phelps l height E&M 65 [in_i] Lalita Phelps l blood pressure, resting Yes [facility] Body Mass Index (Ratio) 34.28 kg/m2 Artur [facility] blood pressure, diastolic 90 mm[Hg] Da ton Arab blood pressure, systolic 158 mm[Hg] Dac ia Lise oxygen saturation, oximetry 97 % Hellen Lise respiratory rate E&M 16 /min Hellen V oss pulse rate 73 /min Hellen Lise weight E&M 206 [lb_av] Hellen Lise height E&M 65 [in_i] Hellen Lise blood pressure, diastolic 90 mm[Hg] Ke becki Dania blood pressure, systolic 130 mm[Hg] Negrita Najera pulse rate 76 /min Kerry Villalta lder oxygen saturation, oximetry 96 % Kerry Najera respiratory rate E&M 16 /min Kerry mejia Body Mass Index (Ratio) 34.11 kg/m2 Kymberly Najera weight E&M 205 [lb_av] Kerry Villalta lder Body Mass Index (Ratio) 34.08 kg/m2 DomingaHarleen Albarran weight E&M 204.8 [lb_av] Kirill diaz blood pressure, diastolic 88 mm[Hg] Me nagelsa Hernandez blood pressure, systolic 130 mm[Hg] Sarina Ng pulse rate 70 /min Leonie Ng oxygen saturation, oximetry 98 % Leonie Ng respiratory rate E&M 15 /min Leonie Booneann Body Mass Index (Ratio) 32.78 kg/m2 Ayana houser Ng weight E&M 197 [lb_av] Leonie Ng blood pressure, diastolic 89 mm[Hg] Me herminio Gibson blood pressure, systolic 140 mm[Hg] Sarina Gibson pulse rate 91 /min Leonie Gibson oxygen saturation, oximetry 97 % Leonie Gibson respiratory rate E&M 16 /min Leonie Gibson Body Mass Index (Ratio) 34.74 kg/m2 Ayana Gibson weight E&M 208.8 [lb_av] Leonie Gibson blood pressure, diastolic 100 mm[Hg] Sourav rickMaria Eugeniakaren SánchezAlbarran blood pressure, systolic 148 mm[Hg] Enma Sánchezenson pulse rate 87 /min Kirill Sánchezsophia rossi oxygen saturation, oximetry 97 % Kirill Albarran respiratory rate E&M 16 /min Pedro Albarran Body Mass Index (Ratio) 34.68 kg/m2 Naya Canseco Albarran weight E&M 208.4 [lb_av] KirillHarleen Sánchez emily Body Mass Index (Ratio) 36.44 kg/m2 Traylor i Dania blood pressure, diastolic, left arm 86 mm [Hg] Kerry Dania blood pressure, systolic, left arm 132 mm [Hg] Kerry Karinenano blood pressure, diastolic, right arm 82 m m[Hg] Kerry Grbismarknenano blood pressure, systolic, right arm 128 m m[Hg] Kerry Gruenenfemiliano blood pressure, diastolic 86 mm[Hg] Ke rri Karinenano blood pressure, systolic 132 mm[Hg] Ker ri Karinenano pulse rate 89 /min Kerry Villalta lder oxygen saturation, oximetry 96 % Kerry Wallacelasthung respiratory rate E&M 16 /min Kerry Abreu rajimarlenyemiliano weight E&M 219 [lb_av] Kerry Villalta lder Body Mass Index (Ratio) 36.07 kg/m2 Marge hyde Mina blood pressure, diastolic 83 mm[Hg] Len sommers Mina blood pressure, systolic 119 mm[Hg] Justin jackson Mina pulse rate 108 /min Kyle Mina oxygen saturation, oximetry 96 % Kyle Mina respiratory rate E&M 20 /min Kyle Mina weight E&M 216 [lb_av] Kyle Mina height E&M 65 [in_i] Kyle Mina blood pressure, diastolic, left arm 69 mm [Hg] Maxine O'Jesse blood pressure, systolic, left arm 117 mm [Hg] Maxine O'Jesse blood pressure, diastolic, right arm 74 m m[Hg] Maxine O'Jesse blood pressure, systolic, right arm 119 m m[Hg] Maxine O'Jesse blood pressure, diastolic 69 mm[Hg] Ma jaquelineha O'Jesse blood pressure, systolic 117 mm[Hg] Enma amezquita O'Jesse pulse rate 91 /min Maxine O'Jesse oxygen saturation, oximetry 97 % Maxine O'Jesse respiratory rate E&M 16 /min Maxine O'Jesse weight E&M 175 [lb_av] Maxine O'Jesse ALLERGIES Allergy Name Onset Date Reaction Criticality Status ADHESIVE TAPE High Criticality activ e RESULTS Date Observation Value Provider Reference Range Interpretation Location prothrombin time (patient) 10.1 s [facility] 9.1-12.0 international normalized ratio (INR) 0.9 [facility] 0.9-1.2 lipoprotein, beta, serum, point, quantitative, calculated 161 mg/dL [facility] 0-99 High HDL cholesterol, serum 60 mg/dL [facility] >39 triglyceride, serum, random 118 mg/dL [facility] 0-149 cholesterol, serum 242 mg/dL [facility] 100-199 High calcium, serum 9.5 mg/dL [facility] 8.7-10.2 carbon dioxide, venous blood 24 mmol/L [facility] 20-29 chloride, serum 103 mmol/L [facility] 96-106 potassium, serum 4.4 mmol/L [facility] 3.5-5.2 sodium, serum 142 mmol/L [facility] [id number] 3320/02/ 17 urea nitrogen/creatinine ratio, serum 18 [facility] 9-23 eGFR if 79 mL/min/{1 .73_m2} [facility] >59 eGFR if not 68 mL/min/{1 .73_m2} [facility] >59 creatinine, serum 0.96 mg/dL [facility] 0.57-1.00 urea nitrogen, blood 17 mg/dL [facility] 6-24 blood glucose, random 92 mg/dL [facility] 65-99 basophil count, absolute 0.0 x10E3/uL [facility] 0.0-0.2 Eosinophil Absolute Count 0.1 X10E3/UL [facility] 0.0-0.4 monocyte count, blood, automated 0.4 X10E3/UL [facility] 0.1-0.9 lymphocyte count, blood, automated 2.2 X10E3/UL [facility] 0.7-3.1 Absolute Neutrophils 2.0 X10E3/UL [facility] 1.4-7.0 basophils as percent of blood leukocytes 1 % [facility] Not Estab. eosinophils as percent of blood leukocytes 2 % [facility] Not Estab. monocytes as percent of blood leukocytes 8 % [facility] Not Estab. lymphocytes as percent of blood leukocytes 47 % [facility] Not Estab. neutrophils as percent of blood leukocytes 42 % [facility] Not Estab. platelet count 276 X10E3/UL [facility] 353-045 5433/02/ 17 red blood cell distribution width 14.0 % [facility] 11.7-15.4 mean corpuscular hemoglobin concentration, RBC 32.1 G/DL [facility] 31.5-35.7 mean corpuscular hemoglobin, RBC 26.4 pg [facility] 26.6-33.0 Low mean corpuscular volume, RBC 83 fL [facility] 79-97 hematocrit, blood 39.0 % [facility] 34.0-46.6 hemoglobin, blood 12.5 g/dL [facility] 11.1-15.9 erythrocyte (RBC) count 4.73 X10E6/UL [facility] 3.77-5.28 leukocyte count, blood 4.8 X10E3/UL [facility] 3.4-10.8 LDL cholesterol, serum 164.8 mg/dL Josh [facility] hemoglobin A1C, blood, as % of total hemoglobin 5.8 % Charles Kingston MD very low density lipoproteins 34.2 mg/dL [facility] 5.0 - 40.0 LDL/HDL (low-density lipoprotein/high-den sity lipoprotein) ratio 2.9 RATIO [facility] - lipoprotein, beta, serum, point, quantitative, calculated 164.8 (?) [facility] 0.0 - 100.0 High HDL cholesterol, serum 56.0 mg/dL [facility] 45.0 - 65.0 cholesterol, serum 255.0 mg/dL [facility] 0.0 - 200.0 High triglyceride, serum, fasting 171.0 mg/dL [facility] 0.0 - 150.0 High urea nitrogen/creatinine ratio, serum 16.3 [facility] - Estimated Glomerular Filtration Rate (calc) 81.7 (?) [facility] 59.0 - chloride, serum 101.8 mmol/L [facility] 98.0 - 107.0 potassium, serum 4.8 mmol/L [facility] 3.5 - 5.1 sodium, serum 143.0 mmol/L [facility] 136.0 - 145.0 creatinine, serum 0.8 mg/dL [facility] 0.5 - 1.0 carbon dioxide, venous blood 20.0 mmol/L [facility] 22.0 - 29.0 Low calcium, serum 10.1 mg/dL [facility] 8.6 - 10.2 urea nitrogen, blood 13.0 mg/dL [facility] 6.0 - 20.0 blood glucose, random 99.0 mg/dL [facility] 74.0 - 99.0 red blood cell distribution width, size density 50.4 fL [facility] - immature granulocytes, percentage of total cells, blood 0.2 % [facility] - nucleated red blood cells as percent of blood leukocytes 0.0 % [facility] - red blood cell (erythrocyte) count, per high power field 0.0 10*3/UL [facility] - eosinophils as percent of blood leukocytes 0.8 % [facility] - neutrophils as percent of blood leukocytes 58.0 % [facility] - Absolute Neutrophils 2.8 CELLS/UL [facility] 1.5 - 7.8 basophils as percent of blood leukocytes 0.4 % [facility] - Absolute Basophils 0.0 CELLS/UL [facility] 0.0 - 0.2 monocytes as percent of blood leukocytes 6.3 % [facility] - Absolute Monocytes 0.3 CELLS/UL [facility] 0.2 - 1.0 lymphocytes as percent of blood leukocytes 34.3 % [facility] - Absolute Lymphocytes 1.6 CELLS/UL [facility] 0.9 - 3.9 mean platelet volume 9.9 (?) [facility] - platelet count 270.0 THOUSAND/ UL [facility] 100.0 - 400.0 mean corpuscular hemoglobin concentration, RBC 30.8 G/DL [facility] 31.0 - 38.0 Low mean corpuscular hemoglobin, RBC 26.9 pg [facility] 25.0 - 35.0 mean corpuscular volume, RBC 87.3 fL [facility] 75.0 - 100.0 hematocrit, blood 43.2 % [facility] 35.0 - 55.0 hemoglobin, blood 13.3 g/dL [facility] 11.5 - 16.5 erythrocyte count, whole blood 5.0 MILLION/U L [facility] 3.5 - 5.5 prothrombin time (patient) 10.1 s [facility] 9.0 - 11.5 international normalized ratio (INR) 0.9 [facility] 0.9 - 1.1 B-type natriuretic peptide 11.7 pg/mL Frank Starkey alanine aminotransferase (SGPT), serum 28 1/L [facility] aspartate aminotransferase (SGOT), serum 18 1/L [facility] creatinine, serum 1.10 mg/dL [facility] urea nitrogen, blood 13.6 mg/dL [facility] carbon dioxide, serum, total 27 mmol/L [facility] chloride, serum 101 mmol/L [facility] potassium, serum 3.7 mmol/L [facility] sodium, serum 138 mmol/L [facility] platelet count 325 10*3/uL Naya Robledo RN hematocrit, blood 38.8 % Naya Robledo RN hemoglobin, blood 13.0 g/dL Naya Robledo RN erythrocyte (RBC) count 4.62 10*6/mm3 Naya Robledo RN leukocyte count, blood 9.3 10*3/mm3 Naya Robledo RN HISTORY OF MEDICATION USE Medication Status Instructions Dates Provider Indications Com ments trazodone 150 mg tablet active Ellen Reid metoprolol succinate 100 mg tablet extended release 24 hr completed Take 1 tablet by mouth once a day 05/13 Ann Rudd metoprolol succinate 200 mg tablet extended release 24 hr completed TAKE 1 TABLET BY MOUTH EVERY DAY 05/13 - 05/13 Ann Rudd FeroSul 325 mg (65 mg iron) tablet active Mackenzie GARCIAP aripiprazole 2 mg tablet active Mackenzie GARCIAP famotidine 20 mg tablet active Mackenzie GARCIAP metoprolol succinate 100 mg tablet extended release 24 hr completed TAKE 1 TABLET BY MOUTH EVERY DAY - 05/13 Ann Rudd metoprolol succinate 200 mg tablet extended release 24 hr completed Take 1 tablet by mouth once a day 04/27 - 04/27 Charles Kingston MD trazodone 150 mg tablet completed TAKE 1 TABLET BY MOUTH EVERY NIGHT AT BEDTIME - 06/02 Ellen Reid estradiol 0.01% (0.1 mg/gram) cream completed INSERT 1 GRAM VAGINALLY TWICE A WEEK - 06/02 Ellen Reid oxybutynin chloride 10 mg tablet extended release 24hr completed TAKE 1 TABLET BY MOUTH ONCE DAILY - 12/02 Mackenzie PEARSON buspirone 10 mg tablet active by mouth twice a day Kerry Najera hydrocodone-acetamin ophen 5-325 mg tablet completed by mouth every six hours - 06/02 Ellen Reid pregabalin 300 mg capsule completed by mouth once a day - 12/02 Mackenzie PEARSON venlafaxine 225 mg tablet extended release 24hr active by mouth once a day Kerry Najera anastrozole 1 mg tablet active Take 1 once a day 09/25 Hellen Lezama venlafaxine 75 mg tablet completed Take 1 once a day 09/25 - 04/27 Hellen Lezama tramadol 50 mg tablet completed Take 1 twice a day 09/25 - 04/27 Hellen Lezama NITROSTAT 0.4 MG SUBLINGUAL TABLET SUBLINGUAL completed One tab. under tongue as needed. May repeat twice in 10 minutes. 03/08 - 04/11 Hellen Lezama LEUPROLIDE ACETATE 1 MG/0.2ML INJECTION KIT completed once a month - 04/11 Hellen Lezama LAXATIVE TABLET completed as needed - 06/02 Ellen Reid DULOXETINE HCL 30 MG ORAL CAPSULE DELAYED RELEASE PARTICLES completed once daily - 04/11 Hellen Lezama cyclobenzaprine 10 mg tablet active three times a day Kirill Albarran lisinopril 40 mg tablet active 1 tablet once a day 09/25 Charles Kingston MD gabapentin 100 mg capsule completed 1 tablet three times a day - 04/27 Kirill Albarran TAMOXIFEN CITRATE 10 MG ORAL TABLET completed take one pill a day 05/27 - 04/11 Kirill Albarran BACLOFEN 10 MG ORAL TABLET completed take as directed 05/27 - 04/11 Hellen Lezama omeprazole 40 mg capsule,delayed release(DR/EC) completed Take 1 capsule once a day - 12/02 Mackenzie Porter [employer] NORCO 10-325 MG ORAL TABLET completed TAKE DIRECTED - 04/11 Hellen Lezama FERROUS GLUCONATE 325 (36 FE) MG TABS completed TAKE ONE TAB DAILY - 04/11 Hellen Lezama NYSTATIN 254991 UNIT/ML MOUTH/THROAT SUSPENSION completed TAKE DIRECTED - 04/11 Kerry Najera metoprolol succinate 200 mg tablet extended release 24 hr completed 1 tablet once a day 09/25 - 04/27 Charles Kingston MD Synthroid 50 mcg tablet active Take 1 tablet once a day Kerry Grconstance XANAX 0.5 MG ORAL TABLET completed TAKE ONE TAB BY MOUTH TWICE DAILY - 04/11 Kirill Albarran hydroxychloroquine 200 mg tablet completed Take 1 tablet by mouth once a day 09/04 - 12/02 Mackenzie Ventimiglia [facility] VITAMIN D (ERGOCALCIFEROL) 76622 UNIT ORAL CAPSULE completed 2 caps once a week - 04/11 Hellenthea Lezama LEXAPRO 10 MG ORAL TABLET completed 1 tab by mouth daily - 04/11 LenDaltonrenetta Mina RANITIDINE HCL 150 MG ORAL TABLET completed 1 tab by mouth twice daily - 04/11 LenDaltonrenetta Enriquez ZOCOR 40 MG ORAL TABLET completed 1 tab by mouth daily - 04/11 Kyle Enriquez LISINOPRIL-HYDROCHLO ROTHIAZIDE 10-12.5 MG ORAL TABLET completed 1 tab by mouth daily - 04/11 Kyle Enriquez BALSALAZIDE DISODIUM 750 MG ORAL CAPSULE completed 3 tab by mouth three times daily - 04/11 Kyle Enriquez SOCIAL HISTORY Date Observation Value Provider personal history of marijuana use no Charles Kingston MD drug use no Charles Kingston MD alcohol use no Charles Kingston MD smoking status Never smoker Charles Dsouza personal history of marijuana use no Mackenzie Ventimiglia [facility] drug use no Mackenzie Ventimig tonny [facility] alcohol use no Mackenzie Ventimig tonny [facility] smoking status Never smoker Mackenzie Ventim iglia [facility] social history reviewed E&M i ewed - no changes required Leisa Caceres number of grandchildren Charles Caceres social history E&M Marital Statu s: L joel with family/friends E thnicity: A lcohol Use - no D rug Use - no Smoking History: P atient has never smoked. Charles Kingston MD social history reviewed E&M revi ewed - no changes required Charles Kingston MD physical exercise, frequency, days per week no Kerry Najera caffeine use, averag e drinks per day 0 /d Kerry Najera smoking status Never smoker Kerry martniez social history reviewed E&M revi ewed - no changes required Josh Agarwal physical exercise, frequency, days per week no Lalita Stovall alcohol use, average drinks per day none Lalita Stovall alcohol use no Lalita Lenin martinez caffeine use, averag e drinks per day 0 /d Lalita Stovall smoking status Never smoker Lalita Macie anderson physical exercise, frequency, days per week no Hellen Lise alcohol use, average drinks per day none Hellen Lise alcohol use no Hellen Lise caffeine use, averag e drinks per day 0 /d Charles Kingston MD smoking status Never smoker Hellen Lise social history reviewed E&M revi ewed - no changes required Charles Kingston MD social history E&M Marital Statu s: L joel with family/friends E thnicity: A lcohol Use - no D rug Use - no Smoking History: Areli snow has never smoked. Charles Kingston MD physical exercise, frequency, days per week no Kerry Najera alcohol use, average drinks per day none Kerry Najera alcohol use no Kerry smith caffeine use, averag e drinks per day no Kerry Najera smoking status Never smoker Kerry martinez social history reviewed E&M revi ewed - no changes required Clay Byrne MD number of grandchildren Clay Byrne MD Josh Stefano social history reviewed E&M revi ewed - no changes required Charles Kingston MD social history E&M Marital Statu s: L joel with family/friends E thnicity: A lcohol Use - no D rug Use - no Smoking History: Patient has never smoked. Charles Kingston MD physical exercise, frequency, days per week no Leonie Hernandez alcohol use, average drinks per day none Leonie Ng alcohol use no Leonie Ng caffeine use, averag e drinks per day no Leonie Booneann smoking status Never smoker Leonie Ochoa karen social history E&M Marital Statu s: L joel with family/friends E thnicity: A lcohol Use - no D rug Use - no Smoking History: P atmicheline has never smoked. Charles Kingston MD smoking status Never smoker Charles Dsouza social history reviewed E&M revi ewed - no changes required Charles Kingston MD social history reviewed E&M revi ewed - no changes required Clay Byrne MD physical exercise, frequency, days per week no Clay Byrne MD alcohol use, average drinks per day none Clay Byrne MD caffeine use, averag e drinks per day no Clay Byrne MD smoking status Never smoker Clay Byrne MD social history E&M Marital Statu s: L joel with family/friends E thnicity: A lcohol Use - no D rug Use - no Smoking History: P atmicheline has never smoked. Clay Byrne MD alcohol use no Clay Dsouza social history reviewed E&M revi ewed - no changes required Brina Devi alcohol use no Kerry smith smoking status Never smoker Kerry martinez social history reviewed E&M reviewed Charles Kingston MD smoking status never smoker Leonie Ochoa karen social history E&M Marital Statu s: Hemant maldonado with family/friends E thnicity: Lauro Hogue RN social history reviewed E&M reviewed Lauro Hogue RN physical exercise, frequency, days per week no [facility] caffeine use, averag e drinks per day no [facility] alcohol use, average drinks per day none [facility] smoking [facility] Date Observation Value Provider assessment of judgme nt and insight E&M Alert and oriented to time, place and person. Mood and affect are normal. Brina Devi assessment of judgme nt and insight E&M Alert and oriented to time, place and person. Mood and affect are normal. Lauro Hogue [employer] HISTORY Family Member Condition First Female Cousin Family History of Br east Cancer Uncle Family History of Ot her Cancer Father Family History of Mi graine: Father Family History of Hy pertension: Father Family History of Hy perlipidemia: Father Family History of CV A or Stroke: Father Family History of Ar thritis: INSURANCE PROVIDERS Payer name Policy type / Coverage type Jerrell red libertarian [place] [employer] MEDICAID (2) Medicaid [id number] ADVANCE DIRECTIVES Name Date DISCUSSED - NO DECISION MADE TREATMENT PLAN Date Name Performer [id number], B P today: 158/94 P rior BP: 162/104 (04/27/2021) Labs Reviewed: C reat: 0.8 (05/11/2016) C hol: 255.0 (05/11/2016) HDL: 56.0 (05/11/2016) T.0 (05/11/2016) Her updated medication list for this problem includes: Metoprolol Succinate 200 Mg Tablet Extended Release 24 Hr (Metoprolol succinate) ..... Take 1 tablet by mouth once a day Lisinopril 40 Mg Tablet (Lisinopril) ..... 1 tablet once a day Leisa Caceres [id number],S, W eight loss advised Leisa Caceres [id number],C, H er updated medication list for this problem includes: Synthroid 50 Mcg Tablet (Levothyroxine) ..... Take 1 tablet once a day Leisa Caceres [id number],C,S till very dyspneic. CT of the chest showed COPD, but no other findings. Echo showed pulmonary hypertension (systolic in the 50s). Renal artery duplex was negative. In view of her continued symptoms and finding of pulmonary hypertension, will proceed to R/L cardiac cath. ProBNP was normal. Leisa Caceres [id number],C,S till very dyspneic. CT of the chest showed COPD, but no other findings. Echo showed pulmonary hypertension (systolic in the 50s). Renal artery duplex was negative. In view of her continued symptoms and finding of pulmonary hypertension, will proceed to R/L cardiac cath. ProBNP was normal. Leisa Caceres [id number],C,Weight loss a dvised Leisa Caceres [id number],C, P FT's showed mild obstructive disease. I recommend pulmonary consultation. Charles Kingston MD [id number],W, For unknown reason she stopped her metoprolol and her BP was markedly elevated today. Will resume metoprolol ER 200mg daily. Will check renal artery duplex and echo. Will obtain chest CT with contrast. B P today: 162/104 P rior BP: 127/88 (07/05/2020) Labs Reviewed: C reat: 0.8 (05/11/2016) C hol: 255.0 (05/11/2016) HDL: 56.0 (05/11/2016) T.0 (05/11/2016) The following medications were removed from the medication list: Metoprolol Succinate 200 Mg Tablet Extended Release 24 Hr (Metoprolol succinate) ..... 1 tablet once a day Her updated medication list for this problem includes: Metoprolol Succinate 200 Mg Tablet Extended Release 24 Hr (Metoprolol succinate) ..... Take 1 tablet by mouth once a day Lisinopril 40 Mg Tablet (Lisinopril) ..... 1 tablet once a day Charles Kingston MD [id number],N,P t had COVID a few months ago. She complains of progressive dyspnea that started a few weeks ago. Will obtain chest CT with contrast. Charles Kingston MD Cardiology:This visi t has been a part of the consistent, comprehensive, and ongoing management of the chronic medical condition(s) listed above for the patient. Her updated medication list for this problem includes: Metoprolol Succinate 100 Mg Tablet Extended Release 24 Hr (Metoprolol succinate) ..... Take 1 tablet by mouth once a day Lisinopril 40 Mg Tablet (Lisinopril) ..... 1 tablet once a day BP today: 138/98 P rior BP: 132/86 (12/03/2023) Labs Reviewed: C reat: 0.96 (10/20/2021) C hol: 242 (10/20/2021) HDL: 60 (10/20/2021) LDL: 161 (10/20/2021) T (10/20/2021) Charles Kingston MD Cardiology Charles Kingston MD Cardiology:on replac ement therapy Charles Kingston MD Cardiology:Continue following with her pulmonary MD for SOB Charles Kingston MD Cardiology:weight loss encourage d Mackenzie Porter [facility] Cardiology:reported on previous CT chest w ill refer to pulmonary Mackenziemadelaine Porter [facility] Cardiology:BP contro lled c ontinue present medication regimen H er updated medication list for this problem includes: Metoprolol Succinate 100 Mg Tablet Extended Release 24 Hr (Metoprolol succinate) ..... Take 1 tablet by mouth every day Lisinopril 40 Mg Tablet (Lisinopril) ..... 1 tablet once a day Mackenzie Porter [facility] Cardiology:only mild per [facility] w ill update echo Mackenziemadelaine Porter [facility] Cardiology: B P today: 158/94 P rior BP: 162/104 (04/27/2021) Labs Reviewed: C reat: 0.8 (05/11/2016) C hol: 255.0 (05/11/2016) HDL: 56.0 (05/11/2016) T.0 (05/11/2016) & #13;Her updated medication list for this problem includes: Metoprolol Succinate 200 Mg Tablet Extended Release 24 Hr (Metoprolol succinate) ..... Take 1 tablet by mouth once a day Lisinopril 40 Mg Tablet (Lisinopril) ..... 1 tablet once a day Leisa Caceres Cardiology: W eight loss advised Leisa Caceres Cardiology: H er updated medication list for this problem includes: Synthroid 50 Mcg Tablet (Levothyroxine) ..... Take 1 tablet once a day Leisa Caceres Cardiology:Still enio y dyspneic. CT of the chest showed COPD, but no other findings. Echo showed pulmonary hypertension (systolic in the 50s). Renal artery duplex was negative. In view of her continued symptoms and finding of pulmonary hypertension, will proceed to R/L cardiac cath. ProBNP was normal. Leisa Caceres Cardiology:Still enio y dyspneic. CT of the chest showed COPD, but no other findings. Echo showed pulmonary hypertension (systolic in the 50s). Renal artery duplex was negative. In view of her continued symptoms and finding of pulmonary hypertension, will proceed to R/L cardiac cath. ProBNP was normal. Leisa Caceres Cardiology Follow up :Weight los s advised Leisa Caceres Cardiology Follow up : P FT's showed mild obstructive disease. I recommend pulmonary consultation. Charles Kingston MD Cardiology Follow up : For unknown reason she stopped her metoprolol and her BP was markedly elevated today. Will resume metoprolol ER 200mg daily. Will check renal artery duplex and echo. Will obtain chest CT with contrast. B P today: 162/104 P rior BP: 127/88 (07/05/2020) Labs Reviewed: C reat: 0.8 (05/11/2016) C hol: 255.0 (05/11/2016) HDL: 56.0 (05/11/2016) T.0 (05/11/2016) The following medications were removed from the medication list: Metoprolol Succinate 200 Mg Tablet Extended Release 24 Hr (Metoprolol succinate) ..... 1 tablet once a day & #13;Her updated medication list for this problem includes: Metoprolol Succinate 200 Mg Tablet Extended Release 24 Hr (Metoprolol succinate) ..... Take 1 tablet by mouth once a day Lisinopril 40 Mg Tablet (Lisinopril) ..... 1 tablet once a day Charles Kingston MD Cardiology Follow up :Pt had COVID a few months ago. She complains of progressive dyspnea that started a few weeks ago. Will obtain chest CT with contrast. Charles Kingston MD Telehealth:She has g ained some weight and we encouraged her to try to lose weight. [facility] Telehealth:Continues to f/u with oncology. [facility] Telehealth:She was t old her HR was high at her oncologist's office but denies chest pain, SOB or palpitations. Continues on Toprol 200mg daily. [facility] Telehealth:BP today (provided by the pt): 127/88 P rior BP: 142/78 (03/12/2019) Her updated medication list for this problem includes: Lisinopril 40 Mg Oral Tablet (Lisinopril) ..... One tab. daily Metoprolol Succinate Er 200 Mg Oral Tablet Extended Release 24 Hour (Metoprolol succinate) ..... One tab. daily [facility] Cardiology follow up :BP today: 142/78 P rior BP: 158/90 (09/25/2018) Her updated medication list for this problem includes: Lisinopril 40 Mg Oral Tablet (Lisinopril) ..... One tab. daily Metoprolol Succinate Er 200 Mg Oral Tablet Extended Release 24 Hour (Metoprolol succinate) ..... One tab. daily [facility] Cardiology follow up :Preop EKG was performed and T-wave inversions were noted. Review of her chart shows these are not new changes. She had a normal cardiac cath in 2016. [facility] Cardiology follow up :Pt is a candidate for shoulder surgery. She jt not have chest pain or SOB. Preop EKG was performed and T-wave inversions were noted. Review of her chart shows these are not new changes. She had a normal cardiac cath in 2016. She is clear for shoulder surgery. [facility] Cardiology follow up :BP today: 158/90 P rior BP: 130/90 (06/19/2016) Her updated medication list for this problem includes: Lisinopril 40 Mg Oral Tablet (Lisinopril) ..... One tab. daily Metoprolol Succinate Er 200 Mg Oral Tablet Extended Release 24 Hour (Metoprolol succinate) ..... One tab. daily [facility] Cardiology follow up :Orders: C omplete Echo (CPT-04437) F VC - 48091 (33475) F RC - 86563 (61630) D LCO - 02238 (27207) 9 9215 HIGH Complex (CPT-34810) P ulmonology (*) [facility] Cardiology follow up :Orders: E KG (CPT-65224) C omplete Echo (CPT-54135) F VC - 40998 (14634) F RC - 19576 (94320) D LCO - 28436 (59185) P ulmonology (*) [facility] Cardiology Follow up:Cardiac cat h was normal. Charles Kingston MD Cardiology Follow up :PFT's showed mild obstructive disease. I recommend pulmonary consultation. Charles Kingston MD Cardiology Follow up :Cardiac cath was normal. PFT's showed mild obstructive disease. I recommend pulmonary consultation. Charles Kingston MD Hem/Onc:As above, sh e is overdue for DEXA scan. Orders: D exa Scan (dexa) 9 9214 MOD Complex (CPT-69976) Clay Byrne MD Hem/Onc:The patient is on adjuvant hormonal therapy with montly leuprolide injections since 2012. She was intolerant tamoxifen secondary to 'passing out episodes'. She will conitnue adjuvant hormonal therapy for at least 5 years. She is overdue for a repeat DEXA scan. She will return in 4 months for follow up. Orders: S NOMED-CT: [id number] Current Medications Documented (SCT-[id number]) C BC (INCLUDES DIFF/PLT) (6399) C OMPREHENSIVE METABOLIC PANEL W/EGFR (94460) V itamin D, 25 Hydroxy (217991) 9 9214 MOD Complex (CPT-57862) Clay Byrne MD Cardiology:Continues to have the same symptoms. Stress echo was negative however 2D echo showed segmental wall motion abnormalities that may indicate CAD. Will proceed to cardiac cath. Josh Agarwal Cardiology:Continues to have the same symptoms. Stress echo was negative however 2D echo showed segmental wall motion abnormalities that may indicate CAD. Will proceed to cardiac cath. Josh Agarwal Cardiology:Associated with chest pain. Charles Kingston MD Cardiology:Orders: C omplete Echo (CPT-97690) S TR - Nuclear (90799) Charles Kingston MD Hem/Onc:Refer back t o Dr. Kingston for evaluation of chest pain. O rders: 9 9245 HIGH Complex (CPT-12187) Clay Byrne MD Hem/Onc:Repeat DEXA scan as patient is on adjuvant antihormonal therapy. 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 She is currently on antihormonal therapy with lupron given side effects of tamoxifen. She will continue monthly leuprolide 3.75 mg IM injections. The patient last DEXA scan was performed in 2012. She will be scheduled for a repeat DEXA scan to rule out drug induced osteoporosis. Orders: 9 9245 HIGH Complex (CPT-97418) Clay Byrne MD Date Name Pulmonology Pulmonology Complete Echo PROTHROMBIN TIME WIT H INR LIPID PANEL CBC (INCLUDES DIFF/P LT) BASIC METABOLIC PANE L W/EGFR Cardiac Cath - L/R - GC BASIC METABOLIC PANE L W/EGFR PROBNP, N TERMINAL CT Chest with contra st Renal Artery Duplex Complete Echo DLCO - 48939 FRC - 94049 FVC - 62205 Complete Echo Vitamin D, 25 Hydrox y COMPREHENSIVE METABO LIC PANEL W/EGFR CBC (INCLUDES DIFF/P LT) Dexa Scan PROTHROMBIN TIME WIT H INR CBC (INCLUDES DIFF/P LT) LIPID PANEL BASIC METABOLIC PANE L W/EGFR Cardiac Cath - Left - GC DLCO - 76597 FRC - 41469 FVC - 64214 STR - Nuclear Complete Echo Dexa Scan B TYPE NATRIURETIC P EPTIDE (BNP) Mobile Cardiac Tele Complete Echo Cardiac Cath - GC HISTORY OF PROCEDURES Procedure Date Procedure Name Provider Procedure Notes S tatus Complex e/m visit add on Charles Kingston MD completed EKG Charles Kingston MD completed EKG Charles Kingston MD completed FVC / MVV with bronchodilator - 83868 Charles Kingston MD completed FRC - 36079 Charles Kingston MD completed SpO2 w/o 6min walk/titration Charles Kingston MD completed DLCO - 41893 Charles Kingston MD complete d EKG Charles Kingston MD completed SNOMED-CT: 816801624 377625 Current Medications Documented Charles Kingston MD completed SNOMED-CT: 457244906 655124 Current Medications Documented Clay Byrne MD completed FVC - 70124 Charles Kingston MD completed FRC - 35072 Charles Kingston MD completed DLCO - 84004 Charles Kingston MD complete d SNOMED-CT: 415239978 704864 Current Medications Documented Charles Kingston MD completed SNOMED-CT: 87638329 Physical Exam, Performed: Pulse Exam of Foot Charles Kingston MD completed EKG Charles Kingston MD completed SNOMED-CT: 930422718 099117 Current Medications Documented Charles Kingston MD completed SNOMED-CT: 271220760 629290 Current Medications Documented Clay Byrne MD completed EKG Charles Kingston MD completed
--- OUTSIDE RECORDS SUMMARY | 2024-10-01 01:28 | XMS_ITS | Data Portability ---
Author Organization [place] - [facility] [employer], Main Office Address [address] [place] [address] Care Team Providers Care Fruit Distributor Name Role Phone KEY AMARO Primary Care Provider KEY AMARO Referring Provider Assessment Encounter Date Assessment Date Assessment LastModified by Organization Details LastModified Time 05/22/2023 05/22/2023 Linda huyen kn ee pain. She is ready to have her knees revised. She would like to consider hopefully just a poly swap. Her sed rate CRP were up a bit but not bad. We will get an aspiration make sure there is nothing else going on. If the aspiration is negative it is probably safe just to change the poly. I will see her back after the aspiration is done we will discuss surgery once again for revising. ray Not available 05/22/2023 15:19:28 04/28/2024 04/28/2024 Assessment: Cough Dyspnea Plan: The following were reviewed and explained to the patient: primary care/referral note PFT 10/14/18 nl FEV1/FVC, FEV1 2.26 L (91%), BD 40 mL = 1%, TLC 4.00 L (75%), DLCO 101%, DLCO /VA 127% Chest CT 07/20/21 mild apical emphysema 2-D echocardiogram 12/25/23 EF 60%, mild LAE As per [facility] pulmonology, she no longer has BIANCA per study in 2022. Cough/Dyspnea workup will be done as follows: Respiratory allergen panel for [facility] Serum IgE Serum total IgG, IgG1, IgG2, IgG3, IgG4 Uwjfe-2-qcssatamiw n phenotype and level TB stimulated gamma interferon B-type natriuretic peptide (BNP) Eosinophil count Methacholine challenge testing Chest CT Advised to continue not to smoke. The patient does not know how to accurately administer the inhaler. Today, the patient was shown how to take this medication. The proper technique for delivering this medication was instructed. The patient expressed a clear understanding and demonstrated back how to use this medication. Without the proper technique, the patient will not reap the benefits of the treatment as the contents of the inhaler will not reach the lower airways as intended to be. Adherence to therapy is advocated. Nonadherence may lead to treatment failure, further progression of the condition, and other complications. Hospitals admissions are often the result of individuals not taking prescription medications accurately. Alternatively, greater adherence to medication regimens have shown to lower rates of hospitalization and decrease total medical costs in patients with chronic medical conditions. Advocated influenza vaccination annually and pneumonia vaccination TOMMIE. Advocated weight loss through diet and exercise. Patient's ideal body weight according to height and gender is up to 135 lbs. Encouraged patient to adjust caloric intake to maintain/achieve ideal body weight, emphasizing on fruits, vegetables, whole grains, and fat-free or low-fat products. These include lean meats, poultry, fish, beans, eggs, and nuts and foods that are low in saturated fats, trans-fats, cholesterol, salt (sodium), and glycemic index. Stressed the importance of regular exercise up to the patient's capacity limits. In this case, we recommend regular (3 x a week or more) weight lifting or other resistance exercise. Patient to monitor BP daily and bring records to PCP for further management. Follow-up: 1 week after methacholine challenge testing Not available 04/28/2024 11:07:51 06/25/2024 06/25/2024 Assessment: Methacholine (+) mild intermittent asthma Mild OSHS, HI = 2 Plan: The following were reviewed and explained to the patient: [facility] diagnostic sleep study 06/24/14 sleep onset = 2.5 minutes, REM onset = 75.5 minutes, AHI = 10, supine AHI = 13, REM AHI = 47, PLMI = 0.0 [facility] titration sleep study 07/13/14 sleep onset = 8 minutes, REM onset = 68.5 minutes, ResMed medium AirFit P10 nasal pillows at 12 cmH2O, PLMI = 0.0 PFT 10/14/18 nl FEV1/FVC, FEV1 2.26 L (91%), BD 40 mL = 1%, TLC 4.00 L (75%), DLCO 101%, DLCO /VA 127% [facility] diagnostic sleep study 07/04/21 sleep onset = 14.5 minutes, REM onset = 266 minutes, HI = 2, PLMI = [address] 07/20/21 mild apical emphysema Chest CT 05/09/24 no acute disease Methacholine challenge 05/27/24 (+) methacholine challenge at level 5 2-D echocardiogram 12/25/23 EF 60%, mild LAE Lab data 04/28/24 multiple environmental allergies The patient is cleared for contemplated breast implant surgery and general anesthesia under Dr. Rodolfo Truong, . The patient will bring inhaler for perioperative use. Aggressive pulmonary toilet is recommended to clear airways of mucus and other secretions by deep breathing, incentive spirometry, postural drainage and percussion. Oxygen supplementation may be necessary to keep saturation between 89-94%. General information on bronchial asthma was covered. Educational video was shown. Peak flow meter usage instructed. Patient's personal best peak flow today is 320 L/min. Patient will monitor peak flow daily at a set time and again when symptoms of chest tightness, cough, dyspnea or wheezing occur. Patient will bring peak flow record to subsequent visits. The color of a traffic light will guide the patient's use of asthma medications: (1) Green means Go Zone. Peak flow: above 80% of personal best. Symptoms: Breathing is good, no cough or wheeze present, patient sleeps through the night and can work and play. Plan: Patient will continue the use of preventative medicine. (2) Yellow means Caution Zone. Peak flow: between 50-80% of personal best. Symptoms: Presence of first signs of a cold, exposure to known trigger, mild wheeze, tight chest and coughing especially night. Plan: Patient will add quick-relief medicine to preventative medicine. (3) Red means Danger Zone. Peak flow: below 50% of personal best. Symptoms: Asthma is getting worse quickly and medicine is not helping, breathing is hard and fast, nose opens widely when breathing, ribs showing when breathing, and patient cannot speak in full sentences. Plan: Patient will get help from a physician immediately. Advised to continue not to smoke. Start albuterol HFA as needed. The patient does not know how to accurately administer the inhaler. Today, the patient was shown how to take this medication. The proper technique for delivering this medication was instructed. The patient expressed a clear understanding and demonstrated back how to use this medication. Without the proper technique, the patient will not reap the benefits of the treatment as the contents of the inhaler will not reach the lower airways as intended to be. Adherence to therapy is advocated. Nonadherence may lead to treatment failure, further progression of the condition, and other complications. Hospitals admissions are often the result of individuals not taking prescription medications accurately. Alternatively, greater adherence to medication regimens have shown to lower rates of hospitalization and decrease total medical costs in patients with chronic medical conditions. Advocated influenza vaccination annually and pneumonia vaccination TOMMIE. Advocated weight loss through diet and exercise. Patient's ideal body weight according to height and gender is up to 135 lbs. Encouraged patient to adjust caloric intake to maintain/achieve ideal body weight, emphasizing on fruits, vegetables, whole grains, and fat-free or low-fat products. These include lean meats, poultry, fish, beans, eggs, and nuts and foods that are low in saturated fats, trans-fats, cholesterol, salt (sodium), and glycemic index. Stressed the importance of regular exercise up to the patient's capacity limits. In this case, we recommend regular (3 x a week or more) weight lifting or other resistance exercise. Patient to monitor BP daily and bring records to PCP for further management. Follow-up: 3 months, September 2024 Not available 06/25/2024 10:53:23 09/24/2024 09/24/2024 Assessment: Methacholine (+) mild persistent asthma Mild OSHS, HI = 2 Plan: The following were reviewed and explained to the patient: [facility] diagnostic sleep study 06/24/14 sleep onset = 2.5 minutes, REM onset = 75.5 minutes, AHI = 10, supine AHI = 13, REM AHI = 47, PLMI = 0.0 [facility] titration sleep study 07/13/14 sleep onset = 8 minutes, REM onset = 68.5 minutes, ResMed medium AirFit P10 nasal pillows at 12 cmH2O, PLMI = 0.0 [facility] diagnostic sleep study 07/04/21 sleep onset = 14.5 minutes, REM onset = 266 minutes, HI = 2, PLMI = 0 PFT 10/14/18 nl FEV1/FVC, FEV1 2.26 L (91%), BD 40 mL = 1%, TLC 4.00 L (75%), DLCO 101%, DLCO /VA 127% Methacholine challenge 05/27/24 (+) methacholine challenge at level [address] 07/20/21 mild apical emphysema Chest CT 05/09/24 no acute disease 2-D echocardiogram 12/25/23 EF 60%, mild LAE Lab data 04/28/24 multiple environmental allergies The patient will bring inhaler for perioperative use. Aggressive pulmonary toilet is recommended to clear airways of mucus and other secretions by deep breathing, incentive spirometry, postural drainage and percussion. Oxygen supplementation may be necessary to keep saturation between 89-94%. General information on bronchial asthma was covered. Educational video was shown. Patient will monitor peak flow daily at a set time and again when symptoms of chest tightness, cough, dyspnea or wheezing occur. Patient will bring peak flow record to subsequent visits. The color of a traffic light will guide the patient's use of asthma medications: (1) Green means Go Zone. Peak flow: above 80% of personal best. Symptoms: Breathing is good, no cough or wheeze present, patient sleeps through the night and can work and play. Plan: Patient will continue the use of preventative medicine. (2) Yellow means Caution Zone. Peak flow: between 50-80% of personal best. Symptoms: Presence of first signs of a cold, exposure to known trigger, mild wheeze, tight chest and coughing especially night. Plan: Patient will add quick-relief medicine to preventative medicine. (3) Red means Danger Zone. Peak flow: below 50% of personal best. Symptoms: Asthma is getting worse quickly and medicine is not helping, breathing is hard and fast, nose opens widely when breathing, ribs showing when breathing, and patient cannot speak in full sentences. Plan: Patient will get help from a physician immediately. Advised to continue not to smoke. Continue albuterol HFA as needed. Start Flovent 44 mcg 2 puffs BID. Gargle after use. The patient does not know how to accurately administer the inhalers. Today, the patient was shown how to take these medications. The proper technique for delivering these medications was instructed. The patient expressed a clear understanding and demonstrated back how to use these medications. Without the proper technique, the patient will not reap the benefits of these medications as the contents will not reach the lower airways as intended to be. Adherence to therapy is advocated. Nonadherence may lead to treatment failure, further progression of the condition, and other complications. Hospitals admissions are often the result of individuals not taking prescription medications accurately. Alternatively, greater adherence to medication regimens have shown to lower rates of hospitalization and decrease total medical costs in patients with chronic medical conditions. Advocated influenza vaccination annually and pneumonia vaccination TOMMIE. Advocated weight loss through diet and exercise. Patient's ideal body weight according to height and gender is up to 135 lbs. Encouraged patient to adjust caloric intake to maintain/achieve ideal body weight, emphasizing on fruits, vegetables, whole grains, and fat-free or low-fat products. These include lean meats, poultry, fish, beans, eggs, and nuts and foods that are low in saturated fats, trans-fats, cholesterol, salt (sodium), and glycemic index. Stressed the importance of regular exercise up to the patient's capacity limits. In this case, we recommend regular (3 x a week or more) weight lifting or other resistance exercise. Patient to monitor BP daily and bring records to PCP for further management. Follow-up: 3 months, December 2024 Not available 09/24/2024 15:29:43 Plan of Treatment Reminders Order Date Submit Date Provider Last Modified By Organization Details Last Modified Time Details Appointments [facility] 15 2024 02:45P Cory Wilson MD Not available Not available Not available Any 15 2024 11:30A Cory Wilson MD Not available Not available Not available Any 2024 02:00P Cory Conteh MD Not available Not available Not available Lab alpha-1- antitryp sin (aat) phenotyp e, serum [email or web address] [place] [address] (Lab), [address] [place], [address], 08/13/2024 14:27:37 BNP (B-type natriure tic peptide) , serum or plasma [facility] [address] [place], [address], 04/28/2024 14:35:58 ige, total, serum 2023 024 2 [facility] (Lab), [address] [place], [address], 08/13/2024 14:27:37 tb (M tubercul osis), ifn-gamm a symone, blood 2023 024 [place] [address] 2 [facility] (Lab), [address] [place], [address], 08/13/2024 14:27:38 eosinoph il count, manual, blood (OBS) 2023 024 [place] [address] 2 [facility] (Lab), [address] [place], [address], 08/13/2024 14:27:38 igg subclass es 1+2+3+4, serum 2023 024 [email or web address] 2 [facility] (Lab), [address] [place], [address], 08/13/2024 14:27:38 respirat ory allergen panel, [facility] A, serum [email or web address] (Lab), [address] [place], [address], 08/13/2024 14:27:38 respirat ory allergen panel - [facility] b 2023 024 2 [facility] (Lab), [address] [place], [address], 08/13/2024 14:27:38 Referral None recorded . Procedures None recorded . Surgeries None recorded . Imaging CT, chest, w/o contrast 2023 024 [facility], [address], [address], 05/13/2024 10:59:19 Medication Orders famotidi ne 40 mg tablet [address] [id number], [address] [place], [place], [id number], 04/25/2024 11:04:35 albutero l sulfate HFA 90 mcg/actu ation aerosol inhaler 2023 024 [id number], [address] [place], [place], [id number], 06/25/2024 10:53:10 albutero l sulfate HFA 90 mcg/actu ation aerosol inhaler 2024 025 [facility] #46045, [address] [place], [place], [id number], 09/24/2024 15:31:56 Flovent HFA 44 mcg/actu ation aerosol inhaler 2024 025 [facility] #43507, [address] [place], [place], [id number], 09/24/2024 15:31:53 Patient TargetsNo targets recorded. Patient Instructions Encounter Date Encounter Id Patient Instructions Last Modified By Organization Details Last Modified Time 02/06/2024 [id number] PT WITRH GERD . TRY OMEPRAZOLE 20 MG OTC , OR TRY FAMOTIDINE 40 MG BID . F/U IN 3 MTHS . [email or web address] Not available 02/06/2024 14:41:56 04/28/2024 [id number] methacholine challenge* EWA Not available 06/19/2024 16:29:29 Reason for Referral None Reported. Results Created Date Observation Date Name Description Value Unit Range Abnormal Flag Note LastModifiedBy Organization Detail LastModifiedTime 05/18/2005/18/2023 C REACT BELLA PROTE IN,UL TRA SENS C-reactive protein 0.75 mg/dL 0.0-0. 5 high Not Available [facility] (Lab) [address] [place], [address], 05/18/2023 15:55:00 05/18/20 23 05/18/2023 SEDIM ENTAT ION RATE erythrocyte sedimentatio n rate 15 mm/HR 0-20 Not Available [facility] (Lab) [address] [place], [address], 05/18/2023 16:10:53 07/04/2007/04/[address] W/DIF F-AUT O color LIGHT- YELLOW Not Available [facility] (Lab) [address] [place], [address], 07/04/2023 13:43:53 07/04/20 23 07/04/[address] W/DIF F-AUT O appearance TURBID abnormal Not Available [facility] (Lab) [address] [place], [address], 07/04/2023 13:43:53 07/04/20 23 07/04/[address] W/DIF F-AUT O volume 1 mL Not Available [facility] (Lab) [address] [place], [address], 07/04/2023 13:43:53 07/04/20 23 07/04/[address] W/DIF F-AUT O WBC, body fluid 2275 /uL Not Available [facility] (Lab) [address] [place], [address], 07/04/2023 13:43:53 07/04/20 23 07/04/[address] W/DIF F-AUT O WBC body fluid-DNR 2.275 Not Available [facility] (Lab) [address] [place], [address], 07/04/2023 13:43:53 07/04/2007/04/[address] W/DIF F-AUT O RBC, body fluid 6000 /uL Not Available [facility] (Lab) [address] [place], [address], 07/04/2023 13:43:53 07/04/20 23 07/04/[address] W/DIF F-AUT O RBC body fluid-DNR 0.006 Not Available [facility] (Lab) [address] [place], [address], 07/04/2023 13:43:53 07/04/2007/04/[address] W/DIF F-AUT O source SYNOVI AL abnormal Not Available [facility] (Lab) [address] [place], [address], 07/04/2023 13:43:53 07/04/2007/04/[address] W/DIF F-AUT O color LIGHT- YELLOW Not Available [facility] (Lab) [address] [place], [address], 07/04/2023 14:45:27 07/04/20 23 07/04/[address] W/DIF F-AUT O appearance TURBID abnormal Not Available [facility] (Lab) [address] [place], [address], 07/04/2023 14:45:27 07/04/20 23 07/04/[address] W/DIF F-AUT O volume 1 mL Not Available [facility] (Lab) [address] [place], [address], 07/04/2023 14:45:27 07/04/20 23 07/04/[address] W/DIF F-AUT O WBC, body fluid 2275 /uL Not Available [facility] (Lab) [address] [place], [address], 07/04/2023 14:45:27 07/04/20 23 07/04/[address] W/DIF F-AUT O WBC body fluid-DNR 2.275 Not Available [facility] (Lab) [address] [place], [address], 07/04/2023 14:45:27 07/04/20 23 07/04/[address] W/DIF F-AUT O RBC, body fluid 6000 /uL Not Available [facility] (Lab) [address] [place], [address], 07/04/2023 14:45:27 07/04/20 23 07/04/[address] W/DIF F-AUT O RBC body fluid-DNR 0.006 Not Available [facility] (Lab) [address] [place], [address], 07/04/2023 14:45:27 07/04/20 23 07/04/[address] W/DIF F-AUT O % poly 14 % Not Available [facility] (Lab) [address] [place], [address], 07/04/2023 14:45:27 07/04/20 23 07/04/[address] W/DIF F-AUT O % mono 86 % Not Available [facility] (Lab) [address] [place], [address], 07/04/2023 14:45:27 07/04/2007/04/[address] W/DIF F-AUT O source SYNOVI AL abnormal Not Available [facility] (Lab) [address] [place], [address], 07/04/2023 14:45:27 05/17/20 23 05/16/2023 XR, knee No observ ation record ed. [email or web address] Not Available 2022 17:12:54 07/05/20 23 07/04/2023 US guide d asp/i nj knee RT [facility] [address], [place] [address] [phone] Patishagufta t Name: CHELA SUMNER Access ion #: [id number] Sex: F : 1969 8 Locati on: RAD Attend ing Physic kathi: BUDDY COLLAZO Orderi ng Physic kathi: BUDDY COLLAZO Exam Date: 023 9:55 AM Exam Name: US GUIDED ASP/IN J KNEE RT Admitt ing Diagno sis(es ): RADIOL OGY REPORT - FINAL EXAM: US GUIDED ASP/IN J KNEE RT HISTOR Y: Right knee aspira tion 53-yea r-old female with right total knee arthro plasty , aspira tion to evalua te for possib le infect ion prior to total knee arthro plasty revisi on. COMPAR ANTONIO: Radiog raphs dated 2022. TECHNI QUE: EXPLAN ATION: The patien t was valeriano t to the ultras ound suite and placed in supine positi on on the ultras ound bed. Risks and benefi ts of knee aspira tion were discus sed with the patien t, includ ing risks of bleedi ng, infect ion, and allerg ic reacti on. The patien t agreed to procee d, giving inform ed consen t. The skin of the right knee was marked , and the patien t agreed this was the correc t side. Time-o ut was perfor med. Page 1 of 2 [facility] CHELA SUMNER Access ion #: [id number] Sex: F : 1969 8 Exam Date: 023 9:55 AM Exam Name: US GUIDED ASP/IN J KNEE RT Admitt ing Diagno sis(es ): PROCED URE: The right knee was preppe d and draped steril jenny with Betadi ne. The skin and subcut aneous tissue s of the supero latera l aspect of the right knee were anesth etized with 1% lidoca ine withou t epinep hrine. An 22 gauge spinal needle was advanc ed in the right knee suprap atella r pouch. Multip le perman ent sonogr aphic images were obtain ed before and during the proced ure. A total of 4 ml of fluid were obtain ed from the right knee joint. Follow ing the aspira tion, the needle was remove d. The skin was cleans ed, and a small bandag e was placed . The patien t tolera ivonne the proced ure well, and there were no immedi ate compli cation s. The aspira ivonne fluid was placed into cultur e tubes and a labora tory tube for cultur e and other labora tory analys is. IMPRES TONE: 1. Succes sful right knee aspira tion, obtain ing 4 ml fluid. 2. Labora tory analys is and cultur e are pendin g. Create d and electr onical ly signed by: Yadiel cortes MD Signed Date: 10:24 AM (CT) Dictat ed by: Yadiel cortes MD DD: 10:24 AM (CT) DT: 10:24 AM (CT) Page [address] (Imaging) [address] [place], [address], 07/05/2023 12:09:44 07/14/2007/14/2023 XR, wrist No observ ation record ed. [address] [place], [address], 07/16/2023 08:42:57 07/14/2007/14/2023 XR, lumba r spine No observ ation record ed. [address] [place], [address], 07/16/2023 08:43:12 04/28/20 24 12/25/2023 US, echoc ardio gram, trans thora cic, compl ete No observ ation record ed. [facility] Not Available 2023 12:21:25 04/28/20 24 07/20/2021 CT, chest , w/ contr ast No observ ation record ed. [facility] Not Available 2023 12:21:25 04/28/20 24 10/14/2018 compl ete PFT w/ [facility] say metry * No observ ation record ed. [facility] Not Available 2023 12:21:25 04/28/20 24 06/24/2014 polys omnog amina, diagn ostic , 6 yrs or older No observ ation record ed. [facility] Not Available 2023 14:24:00 04/28/20 24 07/13/2014 polys omnog amina, titra tion study No observ ation record ed. [facility] Not Available 2023 14:24:00 05/13/20 24 05/09/2024 CT, chest , w/o contr ast No observ ation record ed. [facility] [address] [facility], [place], [address], 05/13/2024 10:59:19 06/19/2005/27/2024 katt rain enge* No observ ation record ed. [facility] (Cardiology & Emg) [address] [place] [address] [place] [address], [id number], 06/19/2024 16:29:29 Result Notes None recorded. Problems Name Problem SNOMED Code Status Onset Date Resolution Date Notes Provider Name and Address Organization Details Recorded Time Acquired bilateral pes planus 3720877696637 9109 Active 2021 Not Available [facility] 3 04:18:31 History of total knee arthroplas ty 1724468140860 Active 2019 Not Available [facility] 3 04:18:31 Trigger finger of left hand 3698665424490 9107 Active 2020 Not Available [facility] 3 04:18:31 Trigger finger of right hand 0460126979764 9101 Active 2019 Not Available [facility] 3 04:18:31 Lupus erythemato rambo 175911266 Active Not Available [facility] 3 04:18:31 Osteoarthr itis of knee 003530686 Active Not Available [facility] 3 04:18:31 Hypertensi ve disorder 17899558 Active Not Available [facility] 3 04:18:32 Hypothyroi dism 55838281 Active Not Available [facility] 3 04:18:32 Acid reflux 962697272 Active Not Available [facility] [facility] 04:18:32 Urge incontinen ce of urine [id number] Active 2022 Not Available [facility] 3 04:18:32 Gastroesop hageal reflux disease without esophagiti s [id number] Active 2022 Not Available [facility] 3 04:18:31 Mild intermitte nt asthma [id number] Active 2023 Vinnie Conteh MD [address] [place], [address] , [facility] 4 10:52:19 Mild persistent asthma [id number] Active 2024 Vinnie Conteh MD [address], [place], [address] , [employer] [facility] 5 15:28:14 Notes:Medical History: Depre ssion/Anxiety COVID infection Rhinitis Eosinophils 50/uL Early REM onset Obesity Methacholine (+) mild intermittent asthma Mild restrictive airflow impairment Hypothyroidism Hyperlipidemia Hypertension EF 60% NATALIA Fatty liver Granulomatous disease (lung, spleen) Urge urinary incontinence SLE Sepsis 2018 Vit D deficiency Osteoporosis Thoracolumbar DDD Pes planus Bilateral trigger finger Procedure History: T&A 2001 Appendectomy 2003 Cholecystectomy 2004 ANN 2007 EGD 2011 Colonoscopy 2011 Left MRM for stage IIIB 2013 Right prophylactic mastectomy 2013 Chemotherapy/Radiation therapy 2014 Right total knee arthroplasty 2015 Left total knee arthroplasty 2016 Cardiac catheterization 2016 BSO 2017 Right foot surgery 2018 Left shoulder arthroplasties 2019, 2020 Bilateral breast implants 2020, 2023 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 Procedures Surgical History Date Name Laterality Status Provider Name and Address Organization Details Recorded Time Hysterectomy completed Not Available [facility] 11/01/2022 09:13:16 Rotator cuff surgery completed Not Available [facility] 11/01/2022 09:13:16 Knee Replacement completed Not Available [facility] 11/01/2022 09:13:16 Carpal tunnel surgery completed Not Available [facility] 11/01/2022 09:13:16 excision of bilateral breasts completed Not Available [facility] 09:13:16 Foot Surgery completed Not Available [facility] 11/01/2022 09:13:16 Endoscopy completed Not Available [facility] 0 11/01/2022 09:13:16 colonoscopy completed Not Available [facility] 11/01/2022 09:13:16 Breast Implants completed Payton Bryson MA [place] - [facility] [employer] [facility] 09/24/2024 15:15:52 Imaging Results Imaging Date Name Status LastModified by Organization Details LastModified Time 05/16/2023 XR, knee completed [facility] Information no t available 05/17/2023 17:12:54 07/04/2023 US guided asp/inj knee RT completed ass4 [facility] (Imaging) [address] [place], [address], 07/05/2023 12:09:44 07/14/2023 XR, wrist completed ass4 [facility] [address] [place], [address], 07/16/2023 08:42:57 07/14/2023 XR, lumbar spine completed ass4 [facility] [address] [place], [address], 07/16/2023 08:43:12 12/25/2023 US, echocardiogram, transthoracic, complete completed [facility] Information not available 04/28/2024 12:21:25 07/20/2021 CT, chest, w/ contrast completed [facility] Information not available 04/28/2024 12:21:25 10/14/2018 complete PFT w/ post bronchodilator spirometry* completed [facility] Information not available 04/28/2024 12:21:25 06/24/2014 polysomnogram, diagnostic, 6 yrs or older completed [facility] Information not available 04/28/2024 14:24:00 07/13/2014 polysomnogram, titration study completed [facility] Information not available 04/28/2024 14:24:00 05/09/2024 CT, chest, w/o contrast completed [facility] [address] [place] [address], [address], 05/13/2024 10:59:19 05/27/2024 methacholine challenge* completed [facility] ([facility] [address], [place], [address], 06/19/2024 16:29:29 Procedure Notes None recorded. Medical Equipment None Reported. Allergies Allergen ID Allergen Name Allergen Category Reaction Reaction Severity Criticality Documentation Date Start Date Code Code System Note Provider Name and Address Organization Details Recorded Time 00612 adhesive tape environme nt,medica tion Not available Not available Not available 04/28/2024 [address] [address] [place], [place] [facility] [email or web address] 10:29:30 Medications Name Sig Start Date Stop Date Status Note LastModified by Organization Details LastModified Time celecoxib 200 mg capsule TAKE 1 CAPSULE BY MOUTH EVERY DAY 04/25 completed Not Available Not Available Not Available cyclobenzap rine 10 mg tablet TAKE 1 TABLET BY MOUTH THREE TIMES DAILY NEEDED FOR MUSCLE SPASM 04/28 completed Not Available Not Available Not Available amoxicillin 500 mg capsule TAKE 1 CAPSULE BY MOUTH TWICE DAILY FOR 5 DAYS 06/01 completed Not Available Not Available Not Available cefazolin 1 gram solution for injection 09/07 completed Not Available Not Available Not Available fluconazole 100 mg tablet 06/19 completed Not Available Not Available Not Available silver sulfadiazin e 1 % topical cream 06/19 completed Not Available Not Available Not Available anastrozole 1 mg tablet TAKE 1 TABLET BY MOUTH DAILY active Not Available Not Available No t Available promethazin e-DM 6.25 mg-15 mg/5 mL oral syrup TAKE 5 ML BY MOUTH EVERY 4 TO 6 HOURS NEEDED FOR COUGH 04/25 completed Not Available Not Available Not Available nystatin 100,000 unit/mL oral suspension 06/19 completed Not Available Not Available Not Available venlafaxine ER 37.5 mg capsule,ext ended release 24 hr TK 1 C PO QAM active Not Available Not Available No t Available acetaminoph en 325 mg tablet 04/25 completed Not Available Not Available Not Available prednisone 10 mg tablet TAKE 1 TAB BY MOUTH 3 TIMES DAILY X 3 DAYS, THEN 1 TAB TWICE DAILY X 2 DAYS, THEN 1 TAB ONCE X 1 DAY 06/01 completed Not Available Not Available Not Available venlafaxine ER 75 mg capsule,ext ended release 24 hr TK 2 CS PO QD active Not Available Not Available No t Available ketoconazol e 2 % shampoo APPLY TOPICALLY TO WET HAIR AND LEAVE IN FOR 30 MINUTES THEN RINSE OUT THREE DAYS A WEEK active Not Available Not Available No t Available quetiapine 300 mg tablet TAKE 1 TABLET BY MOUTH EVERY DAY AT BEDTIME active Not Available Not Available No t Available clindamycin HCl 300 mg capsule TK ONE C PO Q 6 H active Not Available Not Available No t Available Normal Saline Flush 0.9 % injection syringe 06/19 completed Not Available Not Available Not Available trazodone 50 mg tablet TAKE 1 TABLET BY MOUTH EVERY DAY AT BEDTIME 04/25 completed Not Available Not Available Not Available polyethylen e glycol 3350 17 gram oral powder packet 06/19 completed Not Available Not Available Not Available oxybutynin chloride ER 10 mg tablet,exte nded release 24 hr TAKE 1 TABLET BY MOUTH ONCE DAILY 06/01 completed Not Available Not Available Not Available azithromyci n 250 mg tablet TAKE 2 TABLETS BY MOUTH TODAY, THEN TAKE 1 TABLET DAILY FOR 4 DAYS 11/05 completed Not Available Not Available Not Available aspirin 325 mg tablet TAKE 1 TABLET BY MOUTH DAILY 09/24 completed Not Available Not Available Not Available ibuprofen 800 mg tablet TAKE 1 TABLET BY MOUTH THREE TIMES DAILY NEEDED FOR PAIN 09/07 completed Not Available Not Available Not Available metoprolol tartrate 100 mg tablet TK 1 T PO DAILY WITH A MEAL 05/03 completed Not Available Not Available Not Available fluconazole 150 mg tablet 06/19 completed Not Available Not Available Not Available levetiracet am 500 mg tablet 06/19 completed Not Available Not Available Not Available ranitidine 300 mg tablet 06/19 completed Not Available Not Available Not Available cephalexin 250 mg capsule 06/19 completed Not Available Not Available Not Available hydrocodone 5 mg-acetamin ophen 325 mg tablet TAKE 1 TABLET BY MOUTH EVERY 6 HOURS NEEDED FOR SEVERE PAIN. MAX 4 PER DAY 04/25 completed Not Available Not Available Not Available ondansetron HCl 8 mg tablet TAKE 1 TABLET BY MOUTH EVERY 8 HOURS NEEDED FOR NAUSEA OR VOMITING 08/31 completed Not Available Not Available Not Available meloxicam 15 mg tablet TAKE 1 TABLET BY MOUTH DAILY active Not Available Not Available No t Available metoprolol succinate ER 200 mg tablet,exte nded release 24 hr TAKE 1 TABLET BY MOUTH EVERY DAY 06/25 completed Not Available Not Available Not Available phenazopyri dine 200 mg tablet TK 1 T PO TID active Not Available Not Available No t Available Elidel 1 % topical cream 06/19 completed Not Available Not Available Not Available lisinopril 20 mg tablet TK 1 T PO QD 05/03 completed Not Available Not Available Not Available ondansetron HCl 4 mg tablet TAKE 1 TABLET BY MOUTH EVERY 6 HOURS NEEDED FOR NAUSEA OR VOMITING active Not Available Not Available No t Available famotidine 40 mg tablet TAKE 1 TABLET BY MOUTH TWICE DAILY 04/25 completed Not Available Not Available Not Available prednisone 20 mg tablet TAKE 1 TABLET BY MOUTH TWICE DAILY 06/01 completed Not Available Not Available Not Available metoprolol succinate ER 100 mg tablet,exte nded release 24 hr TAKE 1 TABLET BY MOUTH DAILY active Not Available Not Available No t Available quetiapine 200 mg tablet TK 1 T PO QD HS active Not Available Not Available No t Available terconazole 0.8 % vaginal cream 05/03 completed Not Available Not Available Not Available permethrin 5 % topical cream 06/19 completed Not Available Not Available Not Available clindamycin HCl 150 mg capsule 05/03 completed Not Available Not Available Not Available venlafaxine ER 150 mg capsule,ext ended release 24 hr 06/15 completed Not Available Not Available Not Available penicillin V potassium 500 mg tablet TAKE 1 TABLET BY MOUTH TWICE DAILY FOR 10 DAYS DIRECTED 04/25 completed Not Available Not Available Not Available risperidone 0.25 mg tablet 05/03 completed Not Available Not Available Not Available lidocaine HCl 2 % mucosal jelly APPLY TO THE AFFECTED AREA BID active Not Available Not Available No t Available hydroxyzine HCl 50 mg tablet TAKE 2 TABLETS BY MOUTH EVERY DAY AT BEDTIME 04/28 completed Not Available Not Available Not Available nifedipine ER 30 mg tablet,exte nded release TAKE 1 TABLET BY MOUTH EVERY DAY DIRECTED active Not Available Not Available No t Available acetaminoph en 300 mg-codeine 30 mg tablet TAKE 1 TABLET BY MOUTH EVERY 6 HOURS NEEDED FOR PAIN 08/31 completed Not Available Not Available Not Available prochlorper azine maleate 10 mg tablet 06/19 completed Not Available Not Available Not Available ciprofloxac in 500 mg tablet TK 1 T PO Q 12 HOURS FOR 7 DAYS 06/19 completed Not Available Not Available Not Available sulfamethox azole 800 mg-trimetho prim 160 mg tablet TAKE 1 TABLET BY MOUTH EVERY 12 HOURS FOR 7 DAYS 04/28 completed Not Available Not Available Not Available hydrocodone 10 mg-acetamin ophen 325 mg tablet TK 1 T PO TID PRN P 06/19 completed Not Available Not Available Not Available omeprazole 40 mg capsule,del ayed release TAKE 1 CAPSULE BY MOUTH TWICE DAILY 04/28 completed Not Available Not Available Not Available tramadol 50 mg tablet TAKE 1 TABLET BY MOUTH EVERY 6 HOURS NEEDED FOR PAIN 04/28 completed Not Available Not Available Not Available quetiapine 100 mg tablet TK 1 T PO ATN FOR 14 DAYS 06/19 completed Not Available Not Available Not Available acetaminoph en 500 mg tablet TAKE 1 TABLET BY MOUTH EVERY 6 HOURS NEEDED FOR FEVER OR PAIN 05/01 completed Not Available Not Available Not Available amoxicillin 500 mg tablet 06/25 completed Not Available Not Available Not Available vancomycin 125 mg capsule TK ONE C PO QID FOR 10 DAYS active Not Available Not Available No t Available lidocaine-p rilocaine 2.5 %-2.5 % topical cream 06/19 completed Not Available Not Available Not Available ketorolac 10 mg tablet 01/03 completed Not Available Not Available Not Available prednisone 10 mg tablets in a dose pack Take 1 tab by mouth, 3 times a day for 3 daysTake 1 tab by mouth 2 times a day for 2 daysTake 1 tab by mouth once a day for 1 day 06/01 completed Not Available Not Available Not Available cefadroxil 500 mg capsule TAKE 1 CAPSULE BY MOUTH EVERY 12 HOURS FOR 7 DAYS 08/31 completed Not Available Not Available Not Available risperidone 2 mg tablet active Not Available Not Available Not Available meloxicam 7.5 mg tablet 06/19 completed Not Available Not Available Not Available oxycodone-a cetaminophe n 5 mg-325 mg tablet TAKE 1 TO 2 TABLETS BY MOUTH EVERY 4 HOURS NEEDED FOR PAIN 09/07 completed Not Available Not Available Not Available zinc sulfate 50 mg zinc (220 mg) tablet TAKE 1 TABLET BY MOUTH EVERY DAY 04/28 completed Not Available Not Available Not Available alprazolam 0.5 mg tablet TK 1 T PO BID 01/03 completed Not Available Not Available Not Available rifampin 300 mg capsule TAKE 1 CAPSULE BY MOUTH TWICE DAILY FOR 36 DAYS 09/07 completed Not Available Not Available Not Available ceftriaxone 1 gram solution for injection 06/19 completed Not Available Not Available Not Available amoxicillin 875 mg tablet TK 1 T PO BID 06/19 completed Not Available Not Available Not Available alprazolam 0.25 mg tablet 06/19 completed Not Available Not Available Not Available famotidine 20 mg tablet 1 TAB AT BED TIME active Not Available Not Available No t Available metoclopram zarina 5 mg tablet TK 1 T PO Q 6 H PRN FOR NAUSEA/ VOMITING active Not Available Not Available No t Available methocarbam ol 750 mg tablet TAKE 1 TABLET BY MOUTH EVERY 6 HOURS NEEDED FOR MUSCLE SPASMS 04/25 completed Not Available Not Available Not Available Nitrostat 0.4 mg sublingual tablet DISSOLVE 1 T PO UNDER THE TONGUE PRN MAY REPEAT TWICE IN 10 MINUTES active Not Available Not Available No t Available oxycodone-a cetaminophe n 10 mg-325 mg tablet TAKE 1 TABLET BY MOUTH EVERY 6 HOURS NEEDED FOR PAIN 04/28 completed Not Available Not Available Not Available trazodone 100 mg tablet TAKE 1 TABLET BY MOUTH EVERY DAY AT BEDTIME 04/25 completed Not Available Not Available Not Available dicyclomine 20 mg tablet TK 1 T PO QID active Not Available Not Available No t Available Kenalog 10 mg/mL suspension for injection In office injection administe red by the provider 01/03 completed ND: [id number] [phone] Not Available Not Available Not Available amitriptyli ne 10 mg tablet TK 1 T PO HS 06/19 completed Not Available Not Available Not Available phenazopyri dine 100 mg tablet TK 1 T PO TID active Not Available Not Available No t Available baclofen 10 mg tablet TK 1 T PO TID 06/19 completed Not Available Not Available Not Available doxycycline monohydrate 100 mg capsule TK 1 C PO BID 06/19 completed Not Available Not Available Not Available levothyroxi ne 50 mcg tablet TAKE 1 TABLET BY MOUTH EVERY DAY 09/07 completed Not Available Not Available Not Available hydrocodone 7.5 mg-acetamin ophen 325 mg tablet TAKE 1 TABLET BY MOUTH EVERY 4 HOURS NEEDED FOR PAIN 04/28 completed Not Available Not Available Not Available bisacodyl 10 mg rectal suppository TK UTD 06/19 completed Not Available Not Available Not Available cephalexin 500 mg capsule TAKE 1 CAPSULE BY MOUTH EVERY 8 HOURS FOR 10 DAYS 04/25 completed Not Available Not Available Not Available pantoprazol e 40 mg tablet,alisha yed release TAKE 1 TABLET BY MOUTH DAILY 04/25 completed Not Available Not Available Not Available venlafaxine 37.5 mg tablet 06/19 completed Not Available Not Available Not Available hyoscyamine sulfate 0.125 mg tablet TK 1 T PO QID PRF UPSET STOMACH active Not Available Not Available No t Available trazodone 150 mg tablet TAKE 1 TABLET BY MOUTH EVERY NIGHT AT BEDTIME active Not Available Not Available No t Available tobramycin 0.3 % eye drops 05/03 completed Not Available Not Available Not Available ranitidine 150 mg tablet TK 1 T PO QID 05/03 completed Not Available Not Available Not Available dexamethaso ne 4 mg tablet 06/19 completed Not Available Not Available Not Available buspirone 10 mg tablet TAKE 1 TABLET BY MOUTH TWICE DAILY WITH MEALS 06/15 completed Not Available Not Available Not Available lisinopril 10 mg tablet TK 1 T PO QD 06/19 completed Not Available Not Available Not Available prednisone 50 mg tablet 05/03 completed Not Available Not Available Not Available lidocaine 5 % topical patch APPLY 1 PATCH TOPICALLY DAILY *LEAVE ON MOST PAINFUL AREA FOR UP TO 12 HOURS 12/11 completed Not Available Not Available Not Available oxycodone 5 mg capsule TAKE 1 CAPSULE BY MOUTH EVERY 12 HOURS NEEDED FOR PAIN active Not Available Not Available No t Available metoprolol tartrate 50 mg tablet 06/19 completed Not Available Not Available Not Available docusate sodium 100 mg capsule TAKE 1 CAPSULE BY MOUTH DAILY 04/25 completed Not Available Not Available Not Available gabapentin 300 mg capsule 05/03 completed Not Available Not Available Not Available lidocaine HCl 2 % mucosal solution 06/19 completed Not Available Not Available Not Available omeprazole 20 mg capsule,del ayed release TAKE 1 CAPSULE BY MOUTH TWICE DAILY active Not Available Not Available No t Available aspirin 81 mg chewable tablet CHEW AND SWALLOW 1 TABLET BY MOUTH TWICE DAILY active Not Available Not Available No t Available hydroxyzine HCl 25 mg tablet TK 1 T PO Q 6 H PRN active Not Available Not Available No t Available codeine 10 mg-guaifene sin 100 mg/5 mL oral liquid TAKE 10ML( 2 TEASPOONF ULS) BY MOUTH EVERY 4-6 HOURS NEEDED FOR COUGH/CON GESTION 11/10 completed Not Available Not Available Not Available mirtazapine 15 mg tablet TAKE 1 TABLET BY MOUTH EVERY DAY AT BEDTIME FOR DEPRESSIO N OR INSOMNIA active Not Available Not Available No t Available gabapentin 100 mg capsule TK 1 C PO TID 05/03 completed Not Available Not Available Not Available ergocalcife rol (vitamin D2) 1,250 mcg (50,000 unit) capsule TAKE ONE CAPSULE BY MOUTH ONCE A WEEK WITH A MEAL 04/25 completed Not Available Not Available Not Available fluocinolon e 0.01 % topical solution APPLY TOPICALLY TO THE SCALP 1 TO 2 TIMES DAILY NEEDED FOR ITCHING 08/31 completed Not Available Not Available Not Available hydroxychlo roquine 200 mg tablet TAKE 1 TABLET BY MOUTH EVERY DAY 09/07 completed Not Available Not Available Not Available ibuprofen 600 mg tablet TAKE 1 TABLET BY MOUTH EVERY 6 HOURS NEEDED FOR PAIN 08/31 completed Not Available Not Available Not Available polyethylen e glycol 3350 17 gram/dose oral powder active Not Available Not Available Not Available levofloxaci n 500 mg tablet active Not Available Not Available Not Available oxycodone-a cetaminophe n 7.5 mg-325 mg tablet 09/24 completed Not Available Not Available Not Available estradiol 0.01% (0.1 mg/gram) vaginal cream INSERT 1 GRAM VAGINALLY TWICE A WEEK 12/11 completed Not Available Not Available Not Available methylpredn isolone 4 mg tablets in a dose pack FOLLOW PACKAGE DIRECTION S 04/25 completed Not Available Not Available Not Available albuterol sulfate HFA 90 mcg/actuati on aerosol inhaler Inhale 1 puff every 4 hours by inhalatio n route as needed. 2024 active Not Available Not Available Not Avai lable ketoconazol e 2 % topical cream APPLY TOPICALLY TO FACE 1 TO 2 TIMES DAILY FOR RASH 08/31 completed Not Available Not Available Not Available oxybutynin chloride 5 mg tablet TAKE 1 TABLET BY MOUTH TWICE DAILY DIRECTED 04/25 completed Not Available Not Available Not Available ceftriaxone 10 gram solution for injection 06/19 completed Not Available Not Available Not Available lisinopril 40 mg tablet TAKE 1 TABLET BY MOUTH EVERY DAY active Not Available Not Available No t Available ondansetron 4 mg disintegrat ing tablet DISSOLVE 1 TABLET UNDER TONGUE EVERY 8 HOURS NEEDED FOR NAUSEA AND VOMITING 04/25 completed Not Available Not Available Not Available fluoxetine 20 mg capsule TK 2 CS PO QAM AND 1 C PO Q AFTERNOON 06/19 completed Not Available Not Available Not Available fluticasone propionate 50 mcg/actuati on nasal spray,suspe nsion U 1 SPR NASALLY D 06/19 completed Not Available Not Available Not Available risperidone 1 mg tablet TK 1 T PO BID active Not Available Not Available No t Available colestipol 1 gram tablet TAKE 2 TABLETS BY MOUTH EVERY DAY IN THE MORNING 09/07 completed Not Available Not Available Not Available doxycycline hyclate 100 mg tablet TAKE 1 TABLET BY MOUTH DAILY 04/25 completed Not Available Not Available Not Available dicyclomine 10 mg capsule TAKE 1 CAPSULE BY MOUTH THREE TIMES DAILY active Not Available Not Available No t Available tamoxifen 20 mg tablet TK 1 T PO D 06/19 completed Not Available Not Available Not Available naproxen 500 mg tablet TAKE 1 TABLET BY MOUTH TWICE DAILY WITH FOOD 09/07 completed Not Available Not Available Not Available diazepam 5 mg tablet TAKE 1 TABLET BY MOUTH EVERY 8 HOURS NEEDED FOR SPASMS OR DISCOMFOR T 12/11 completed Not Available Not Available Not Available metoclopram zarina 10 mg tablet active Not Available Not Available Not Available amoxicillin 875 mg-potassiu m clavulanate 125 mg tablet TK 1 T PO BID FOR 10 DAYS 06/19 completed Not Available Not Available Not Available buspirone 15 mg tablet TAKE 1 TABLET BY MOUTH THREE TIMES DAILY WITH MEALS active Not Available Not Available No t Available oxycodone 5 mg tablet TAKE 1 TABLET BY MOUTH EVERY 4 HOURS NEEDED FOR PAIN 09/24 completed Not Available Not Available Not Available hydroxyzine pamoate 25 mg capsule TK ONE C PO QID active Not Available Not Available No t Available neomycin-po lymyxin-hyd rocort 3.5 mg-10,000 unit/mL-1 % ear drops,susp 05/03 completed Not Available Not Available Not Available Poly-Iron 150 mg iron capsule 06/19 completed Not Available Not Available Not Available ciprofloxac in 0.3 %-dexametha sone 0.1 % ear drops,suspe nsion INSTILL 4 DROPS IN AD BID 09/24 completed Not Available Not Available Not Available bupropion HCl XL 150 mg 24 hr tablet, extended release TAKE 1 TABLET BY MOUTH EVERY DAY IN THE MORNING FOR DEPRESSIO N active Not Available Not Available No t Available nitrofurant oin monohydrate /macrocryst als 100 mg capsule TAKE 1 CAPSULE BY MOUTH EVERY 12 HOURS FOR 5 DAYS DIRECTED 04/25 completed Not Available Not Available Not Available duloxetine 30 mg capsule,del ayed release TK 1 C PO QD 06/19 completed Not Available Not Available Not Available lactulose 10 gram/15 mL oral solution 06/19 completed Not Available Not Available Not Available Flovent HFA 44 mcg/actuati on aerosol inhaler Inhale 2 puffs twice a day by inhalatio n route. 2024 active Not Available Not Available Not Avai lable pregabalin 75 mg capsule TAKE 1 CAPSULE BY MOUTH TWICE DAILY 06/15 completed Not Available Not Available Not Available pregabalin 150 mg capsule TAKE 1 CAPSULE BY MOUTH TWICE DAILY 06/01 completed Not Available Not Available Not Available pregabalin 200 mg capsule TAKE 1 CAPSULE BY MOUTH TWICE DAILY 04/28 completed Not Available Not Available Not Available chlorhexidi ne gluconate 0.12 % mouthwash RINSE AND GARGLE 15 ML BY MOUTH TWICE DAILY 06/01 completed Not Available Not Available Not Available Amitiza 24 mcg capsule TK 1 C PO BID active Not Available Not Available No t Available lidocaine (PF) 10 mg/mL (1 %) injection solution In office injection administe red by the provider 01/03 completed [facility]: [phone] [phone] [phone] Not Available Not Available Not Available aripiprazol e 2 mg tablet TAKE 1 TABLET BY MOUTH EVERY DAY AFTER A MEAL 04/28 completed Not Available Not Available Not Available quetiapine 50 mg tablet TK 1 T PO QD HS active Not Available Not Available No t Available heparin, porcine (PF) 10 unit/mL intravenous syringe 06/19 completed Not Available Not Available Not Available peg 3350 240 gram-electr olytes 22.72 gram-6.72 g-5.84 g powdr for soln 06/19 completed Not Available Not Available Not Available FeroSul 325 mg (65 mg iron) tablet TAKE 1 TABLET BY MOUTH DAILY active Not Available Not Available No t Available omeprazole 20 mg tablet,alisha yed release TK 1 TO 2 TS PO QD BEFORE A MEAL 06/19 completed Not Available Not Available Not Available oxycodone 20 mg tablet 06/19 completed Not Available Not Available Not Available venlafaxine ER 225 mg tablet,exte nded release 24 hr TAKE 1 TABLET BY MOUTH EVERY DAY IN THE MORNING active Not Available Not Available No t Available Suprep Bowel Prep Kit 17.5 gram-3.13 gram-1.6 gram oral solution DIRECTED 12/07 completed Not Available Not Available Not Available Xarelto 10 mg tablet TAKE 1 TABLET BY MOUTH EVERY DAY 04/28 completed Not Available Not Available Not Available Stimulant Laxative Plus 8.6 mg-50 mg tablet TAKE 1 TABLET BY MOUTH ONCE DAILY active Not Available Not Available No t Available Hysingla ER 20 mg tablet, crush resistant, extended release TAKE 1 TABLET BY MOUTH EVERY 24 HOURS 04/28 completed Not Available Not Available Not Available naloxone 4 mg/actuatio n nasal spray ADMINISTE R 1 SPRAY IN EVERY NOSTRIL. MAY REPEAT ALTERNATE . NOSTILS EVERY 2-3 MINS UNTIL RESPONSIV E active Not Available Not Available No t Available Vitals Date Recorded Body height Body mass index (BMI) Body weight Provider Name and Address Organization Details Last Updated DateTime 05/22/2023 165.1 cm 36.6 kg/m2 96862.32 g AUBREE Pickering - [facility] 05/22/2023 14:49:16 Date Recorded Body height Body mass index (BMI) Body weight Heart rate Oxygen saturation Oxygen saturation in Arterial blood by Pulse oximetry Systolic blood pressure Diastolic blood pressure Provider Name and Address Organization Details Last Updated DateTime 4 165.1 cm 36.6 kg/m2 34777.3 2 g 82 /min 99 % 99 % 132 mm[Hg] 82 mm[Hg] AUBREE Lee [facility] [employer] 14:13:45 Date Recorded Body height Body mass index (BMI) Body weight Body temperature Heart rate Oxygen saturation Oxygen saturation in Arterial blood by Pulse oximetry Systolic blood pressure Diastolic blood pressure Provider Name and Address Organization Details Last Updated DateTime 4 165.1 cm 35.3 kg/m2 11648.5 8 g 98.1 [degF] 74 /min 97 % 97 % 126 mm[Hg] 74 mm[Hg] Payton Bryson MA [facility] [employer] [facility] 4 10:36:49 Date Recorded Heart rate Respiratory rate Provider N josette and Address Organization Details Last Updated DateTime 04/28/2024 74 /min 15 /min Vinnie Conteh MD [address], [place], [address], [facility] [employer] [facility] 04/28/2024 10:49:37 Date Recorded Body height Body mass index (BMI) Body weight Heart rate Oxygen saturation Oxygen saturation in Arterial blood by Pulse oximetry Body temperature Systolic blood pressure Diastolic blood pressure Provider Name and Address Organization Details Last Updated DateTime 4 165.1 cm 37.1 kg/m2 423259. 1 g 68 /min 97 % 97 % 98.3 [degF] 124 mm[Hg] 70 mm[Hg] Jada Crow CMA [facility] [employer] 4 10:27:02 Date Recorded Heart rate Respiratory rate Provider N josette and Address Organization Details Last Updated DateTime 06/25/2024 68 /min 15 /min Vinnie Conteh MD [address], [address], [place], [address], [facility] [employer] [facility] 06/25/2024 10:51:58 Date Recorded Body height Body mass index (BMI) Body weight Body temperature Heart rate Oxygen saturation Oxygen saturation in Arterial blood by Pulse oximetry Systolic blood pressure Diastolic blood pressure Provider Name and Address Organization Details Last Updated DateTime 165.1 cm 39.1 kg/m2 420315. 21 g 97.8 [degF] 72 /min 98 % 98 % 118 mm[Hg] 82 mm[Hg] Payton Bryson MA [facility] 15:18:41 Date Recorded Heart rate Respiratory rate Provider Karen finch and Address Organization Details Last Updated DateTime 09/24/2024 72 /min 15 /min Vinnie Conteh MD [address] [facility], [facility] [address], [place], [address], [facility] 09/24/2024 15:34:46 Social History Question Answer Notes LastModified by Organizat ion Details LastModified Time Tobacco Smoking Status Never Smoker Not Available [employer] 11/01/2022 09:13:04 Do You Have An Advance Directive? No [id number] Information not available 11/01/2022 What Is Your Level Of Alcohol Consumption? None [id number] Information not available 11/01/2022 What Is Your Level Of Caffeine Consumption? None [id number] Information not available 11/01/2022 In The 14 Days Before Symptom Onset, Have You Had Close Contact With A Laboratory-confirm ed COVID-19 While That Case Was Ill? No [id number] Information not available 11/01/2022 In The 14 Days Before Symptom Onset, Have You Had Close Contact With A Person Who Is Under Investigation For COVID-19 While That Person Was Ill? No [id number] Information not available 11/01/2022 Are You Currently Employed? No Information not available 04/28/2024 What Type Of Diet Are You Following? REGULAR [id number] Information not available 11/01/2022 Do You Have An Electrostatic Air Filter? Yes Information not available 04/28/2024 Do You Have A Humidifier? Yes Information not available 04/28/2024 Do You Have Moisture Problems In Your Home? No Information not available 04/28/2024 What Was The Date Of Your Most Recent Tobacco Screening? 09/24/2024 Information not available 09/24/2024 Do You Have Any Pets? No Information not available 04/28/2024 What Is Your Relationship Status? [id number] Information not available 11/01/2022 Do You Use Your Seat Belt Or Car Seat Routinely? Yes Information not available 04/28/2024 Do You Have Smoke And Carbon Monoxide Detectors In Your Home? Yes Information not available 04/28/2024 Are You Passively Exposed To Smoke? No Information no t available 04/28/2024 Do You Feel Stressed (tense, Restless, Nervous, Or Anxious, Or Unable To Sleep At Night)? [id number] Information not available 04/28/2024 Do You Use Any Illicit Or Recreational Drugs? No [id number] Information not available 11/01/2022 Do You Use Sunscreen Routinely? No Information not available 04/28/2024 Has Tobacco Cessation Counseling Been Provided? No [id number] Information not available 11/01/2022 Have You Recently Traveled Abroad? No [id number] Information not available 11/01/2022 Do You Or Have You Ever Used Any Other Forms Of Tobacco Or Nicotine? No [id number] Information not available 11/01/2022 Sex: Female Functional Status Question Answer Note LastModified by Organizat ion Details LastModified Time What is your exercise level? None [id number] Information not available 11/01/2022 Mental Status None recorded. Family History Relationship Description Onset Age of this Age Resolved Age Notes LastModified by Organization Details LastModified Time Maternal Grandmother Heart disease [id number] Not available 11/01/2022 09:13:17 Maternal Aunt Heart disease [id number] Not available 11/01/2022 09:13:17 Father Migraine Not available 0 04/25/2024 13:11:10 Father Hypertensive disorder Not available 2023 13:11:19 Father Hyperlipidem ia Not available 2023 13:11:30 Father Osteoarthrit is Not available 2023 13:11:50 Paternal Grandmother Malignant tumor of breast Not available 2023 10:56:51 Paternal Aunt Malignant tumor of colon Not available 2023 10:57:16 Maternal Uncle Malignant tumor of larynx Not available 2023 10:57:28 Maternal Uncle Malignant tumor of prostate Not available 2023 10:57:39 Daughter Asthma Not available 1 10:41:36 Medical History Condition Response BLINDNESS N KIDNEY STONES N MRSA N CARPAL TUNNEL SYNDROME N LUNG DISEASE/DISORDER N HISTORY OF DRUG ABUSE N RADIATION / CHEMOTHERAPY N COPD N SPORTS INJURY N ANKLE PAIN N BLOOD DISEASES N SCHIZOPHRENIA N SHINGLES N SHOULDER PAIN N BOWEL PROBLEMS N DEPRESSION (INCLUDING POST ) Y STROKE/TIA N ULCERS N KNEE PAIN N BENIGN PROSTATIC HYPERPLASIA N OBESITY N GERD/NAUSEA N ANEURYSM N URINARY/BLADDER/KIDNEY PROBLEMS N CORONARY ARTERY DISEASE (CAD) N ADDICTION CONCERNS N USE OF BLOOD THINNERS N SKIN PROBLEMS N EMPHYSEMA N MUSCLE,JOINT OR BONE PROBLEMS N DVT N STOMACH ULCERS N BLOOD CLOTS N USE OF NSAIDS N CONCUSSION OR SPINAL TRAUMA N NEUROPATHY N AIDS/HIV N FRACTURES N HYPERTENSION Y ELBOW PAIN N TOURETTE'S N Metal allergy N ANXIETY DISORDER N BLOOD TRANSFUSION N ANEMIA/BLOOD DISORDER Y BIPOLAR DISORDER N BRONCHITIS N OSTEOARTHRITIS N TUBERCULOSIS N FOOT PROBLEM N HEART VALVE DISORDERS N ALLERGIES/HAYFEVER N SOFT TISSUE INJURY N INFECTIOUS DISEASE N HEART ARRHYTHMIA N INSOMNIA N HIGH CHOLESTEROL / HYPERLIPIDEMIA N RHEUMATOID ARTHRITIS N EDEMA N CHRONIC PAIN SYNDROME N CAROTID BLOCKAGE N BACK / NECK PROBLEMS N HAVE YOU BEEN HOSPITALIZED OR SEEN IN [facility] IN THE PAST YEAR ? N BURSITIS N HERNIATED DISC N DIALYSIS N FIBROMYALGIA N OSTEOPOROSIS N ARTHRITIS Y NO SIGNIFICANT PAST MEDICAL HISTORY N PERIPHERAL NEUROPATHY N DIABETES, TYPE N HEARTBURN / REFLUX N HEPATITIS / LIVER DISEASE N GOUT N ALZHEIMER'S DISEASE N SLEEP DISORDER N HERPES N HEADACHES/MIGRAINES N SEIZURES/EPILEPSY N VASCULAR DISEASE N Blood Disorder N HIP PAIN N DIZZINESS N HEAD TRAUMA OR INJURY N HEART DISEASE/HEART PROBLEMS N MULTIPLE SCLEROSIS N CANCER: SPECIFY Y CARDIAC ARRHYTHMIA N ANESTHESIA COMPLICATIONS N ATRIAL FIBRILLATION N AUTOIMMUNE DISEASE N Gynecological HistoryNo gynecological history recorded. Obstetrics History GPAL:G 0 P 0 0 0 0 Past Encounters Encounter ID Performer Location Encounter Start Date Encounter Closed Date Diagnosis/Indication Diagnosis SNOMED-CT Code Diagnosis ICD10 Code Diagnosis Note [id number] [facility] [address] [place] [address] 01/25/2021 00:00:00 01/25/2021 16:40:12 [id number] [facility] [address] [place] [address] 04/05/2021 00:00:00 04/05/2021 14:39:42 [id number] [facility] [address] [place] [address] 04/12/2021 00:00:00 04/12/2021 15:46:41 [id number] [facility] [address] [place] [address] 04/19/2021 00:00:00 04/19/2021 14:45:42 [id number] [facility] [address] [place] [address] 05/17/2021 00:00:00 05/31/2021 09:08:02 [id number] _ATHENA_M IGRATION_ DEFAULT_1 _1 , 06/15/2021 00:00:00 06/15/2021 15:14:16 [id number] [facility] [address] [place] [address] 06/21/2021 00:00:00 06/21/2021 14:32:55 [id number] [facility] [address] [place] [address] 08/02/2021 00:00:00 08/08/2021 14:20:31 [id number] [facility] [address] [place] [address] 09/15/2021 00:00:00 09/15/2021 14:30:27 [id number] [facility] [address] [place] [address] 11/17/2021 00:00:00 11/17/2021 15:28:48 [id number] [facility] [place] [address] [place] [address] 12/01/2021 00:00:00 12/01/2021 18:07:39 [id number] [facility] [place] [address] [place] [address] 01/03/2022 00:00:00 01/03/2022 17:30:11 [id number] [facility] [address] [place] [address] 01/26/2022 00:00:00 01/27/2022 07:31:45 [id number] [facility] [address] [place] [address] 02/02/2022 00:00:00 02/03/2022 09:58:36 [id number] [facility] [address] [place] [address] 03/23/2022 00:00:00 03/24/2022 10:00:09 [id number] [facility] [address] [place] [address] 04/04/2022 00:00:00 04/04/2022 15:46:20 [id number] [facility] [address] [place] [address] 06/29/2022 00:00:00 06/29/2022 13:11:09 [id number] [facility] [address] [place] [address] 09/07/2022 00:00:00 09/07/2022 14:14:38 [id number] Ankur Espinal MD [facility] [address] [place] [address] 11/02/2022 14:09:04 11/02/2022 15:07:21 Low back pain 072740465 M54.50 Mechanical complication of implant 322344660 T85.698D Knee joint painful on movement 639124527 M25.569 Spinal hernan nosis of lumbar region 57329832 M48.061 History of left total knee replacement 2511249131 280528 Z96.652 History of right total knee replacement 6942133727 410039 Z96.651 Pain of ri ght shoulder joint 6816470330 2566739 M25.511 Tendinitis of right rotator cuff 8202263035 4488414 M67.813 [id number] Scott Lucas MD [facility] Urology [address], [address] [place] [address] 12/11/2022 14:05:05 12/11/2022 14:38:46 Urge incontinence of urine 49444942 N39.41 Negative ua, low residual, went over options, will try Gemtesa 75 mg a day. [id number] Henna Wilson MD [facility] General Surgery [address] [place], [place] [address]., [facility] [address] [place] [address] 03/14/2023 15:49:07 04/04/2023 13:12:05 Gastroesophageal reflux disease without esophagitis 665139745 K21.9 [id number] Ankur Espinal MD [facility] [place] [address] [place] [address] 03/29/2023 13:07:35 03/29/2023 13:36:11 Low back pain 203144550 M54.50 History of bilateral total knee replacement 9600148196 572834 Z96.653 Bilateral sacroiliac joint pain 3033950326 8528258 M53.3 [id number] Henna Wilson MD [facility] General Surgery [address] [place] [address] Ave[address] [place] [address] 05/16/2023 15:06:28 05/16/2023 15:28:25 Gastroesophageal reflux disease without esophagitis 268933850 K21.9 [id number] MELODIE Abdalla [facility] [address] [place] [address] 05/17/2023 13:06:34 05/17/2023 14:32:54 Pain of right knee joint 1408849943 26045 M25.561 History of bilateral total knee replacement 4893200157 666488 Z96.653 History of right total knee replacement 3637850383 292482 Z96.651 Mechanical complication of implant 183999665 T85.698A T84.039A [id number] Ankur Espinal MD [facility] [place] [address] [place] [address] 05/22/2023 14:43:07 05/22/2023 15:21:27 History of total knee arthroplasty 2400384496 105 Z96.667 [id number] Henna Wilson MD [facility] General Surgery [address] [place] [address] 02/06/2024 14:11:19 02/06/2024 14:44:49 Gastroesophageal reflux disease without esophagitis 750925549 K21.9 [id number] Vinnie Conteh MD [address] [address] 04/28/2024 10:17:28 04/29/2024 08:48:30 Dyspnea on exertion 73922603 R06.09 R05.9 T78.40XA D89.9 C50.912 J43.9 [id number] Vinnie Conteh MD [address] [address] 06/25/2024 10:05:36 06/25/2024 12:53:26 Mild intermittent asthma 784890716 J45.20 [id number] Vinnie Conteh MD [address] [address] 09/24/2024 15:04:24 09/29/2024 14:54:32 Mild persistent asthma 266620151 J45.30 Health Concerns Section Related Observation LastModified by Organization Detai ls LastModified Time None Recorded Concern Status LastModified by Organization Details LastModified Time None Recorded Advance Directives Directive N: Payers Encounter Date Sequence Insurance Name Policy Number Policy Casarez Covered Member ID Casarez Member ID Guarantor Name 05/22/2023 1 [facility] ON OR AFTER 03/03/21 (MEDICAID REPLACEMENT - HMO) Chela Mcnulty [id number] Chela Mcnulty 02/06/2024 1 [facility] ON OR AFTER 03/03/21 (MEDICAID REPLACEMENT - HMO) Chela Mcnulty [id number] Chela Mcnulty 04/28/2024 1 [facility] ON OR AFTER 03/03/21 (MEDICAID REPLACEMENT - HMO) Chela Mcnulty [id number] Chela Mcnulty 06/25/2024 1 [facility] ON OR AFTER 03/03/21 (MEDICAID REPLACEMENT - HMO) Chela Mcnulty [id number] Chela Mcnulty 09/24/2024 1 [facility] ON OR AFTER 03/03/21 (MEDICAID REPLACEMENT - HMO) Chela Mcnulty [id number] Chela Mcnulty Notes Date Note Type Note Provider Name and Address Organization Details Recorded Time 05/22/2023 text/html Patient returns knee pain right greater than left. She has pain in both knees worse with activity somewhat relieved by rest. She has laxity in the knee and has would like to consider revision total knee. Ankur Espinal MD [address] [facility], [facility] [address], [place], [address], [facility] 05/22/2023 15:19:53 02/06/2024 text/html CHELA WAS SEEN IN THE OFFICE TODASY FOR A F/U. PT HAS GERD AND WAS RXED OMEPRAZOLE 40 MG . PT REPORTS THAT INS DENIED IT . SHE DOES NOT HAVE THE MONEY TO BUY IT . SO SHE IS NOT TAKING IT ANY MORE . PT C/O CONSTIPATION . EPIGASTRIC PAIN . SHE TAKES FAMOTIDINE 20 MG AT BED TIME . Henna Wilson MD [address] [facility], [facility] [address], [place], [address], [facility] 02/06/2024 14:42:19 04/28/2024 text/html Primary care/Ref erring provider: Key Amaro MD; Charles Kingston MD Patient is here to go over shortness of breath evaluation/management. Initial development of shortness of breath: 1988Duration of shortness of breath: 30 yearsCondition of shortness of breath: worseningTiming of shortness of breath: noneFrequency: 3 times a dayLimits activities: yesAggravating factors: walking, going up a 7-step staircase, wipingAlleviating factors: rest Modified [employer] [place] (mMRC) Dyspnea Scale - Grade 2Grade 0 ? I only get breathless with strenuous exercise? .Grade 1 ? I get short of breath when hurrying on the level or walking up a slight hill? .Grade 2 ? I walk slower than people of the same age on the level because of breathlessness or have to stop for breath when walking at my own pace on the level? .Grade 3 ? I stop for breath after walking about 100 yards or after a few minutes on the level? .Grade 4 ? I am too breathless to leave the house? or ? I am breathless when dressing? . Treatment history:None Other symptoms:Drooling: noDysarthria: noNeck pain: noOdynophagia: noDysphagia: noWeak mastication: noFacial weakness: noNasal speech: noProtruding tongue: noProductive cough: noWheezing: noChest tightness: yesOrthopnea: noFrequent throat clearing or swallowing: noPalpitations: noHeartburn: noEdema: no Environmental exposures:Nicotine smoke: neverPaint: noDye: noDust mites: yesMold: noDamp basement: noWood burning stove: noAnimal dander: noCockroaches: noPollen: yesArsenic: noAsbestos: noBeryllium: noCadmium: noChromium: noCoal smoke: noDiesel fumes: noNickel: noSilica: noSoot: no EPWORTH SLEEPINESS SCALE (ESS) CHANCE OF DOZING SCORE0 = would never doze1 = slight chance of dozing2 = moderate chance of dozing3 = high chance of dozing SITUATION AND CHANCE OF DOZINGSitting and reading - 3Watching television - 3Sitting inactive in a public place (e.g. a theater or meeting) - 0As a passenger in a car for an hour without a break - 0Lying down to rest in the afternoon when circumstances permit - 0Sitting and talking to someone - 0Sitting quietly after lunch without alcohol - 0In a car, while stopped for a few minutes in the traffic - 0TOTAL SCORE 6Subjectively, patient has a slight chance of dozing. Vinnie Conteh MD [address], [address], [place], [address], [place] [facility] [place] [facility] 04/28/2024 11:11:12 06/25/2024 text/html Primary care/Ref erring provider: Key Amaro MD; Charles Kingston MD Patient is here to go over her lab data, chest CT and methacholine challenge testing as part of her shortness of breath evaluation/management. Initial development of shortness of breath: 1988Duration of shortness of breath: 30 yearsCondition of shortness of breath: worseningTiming of shortness of breath: noneFrequency: 3 times a dayLimits activities: yesAggravating factors: walking, going up a 7-step staircase, wipingAlleviating factors: rest Modified [employer] [place] (mMRC) Dyspnea Scale - Grade 2Grade 0 ? I only get breathless with strenuous exercise? .Grade 1 ? I get short of breath when hurrying on the level or walking up a slight hill? .Grade 2 ? I walk slower than people of the same age on the level because of breathlessness or have to stop for breath when walking at my own pace on the level? .Grade 3 ? I stop for breath after walking about 100 yards or after a few minutes on the level? .Grade 4 ? I am too breathless to leave the house? or ? I am breathless when dressing? . Treatment history:None Other symptoms:Drooling: noDysarthria: noNeck pain: noOdynophagia: noDysphagia: noWeak mastication: noFacial weakness: noNasal speech: noProtruding tongue: noProductive cough: noWheezing: noChest tightness: yesOrthopnea: noFrequent throat clearing or swallowing: noPalpitations: noHeartburn: noEdema: no Environmental exposures:Nicotine smoke: neverPaint: noDye: noDust mites: yesMold: noDamp basement: noWood burning stove: noAnimal dander: noCockroaches: noPollen: yesArsenic: noAsbestos: noBeryllium: noCadmium: noChromium: noCoal smoke: noDiesel fumes: noNickel: noSilica: noSoot: no EPWORTH SLEEPINESS SCALE (ESS) CHANCE OF DOZING SCORE0 = would never doze1 = slight chance of dozing2 = moderate chance of dozing3 = high chance of dozing SITUATION AND CHANCE OF DOZINGSitting and reading -0Watching television - 0Sitting inactive in a public place (e.g. a theater or meeting) - 0As a passenger in a car for an hour without a break - 0Lying down to rest in the afternoon when circumstances permit - 0Sitting and talking to someone - 0Sitting quietly after lunch without alcohol - 1In a car, while stopped for a few minutes in the traffic - 0TOTAL SCORE 1Subjectively, patient has a slight chance of dozing. Vinnie Conteh MD [address] [place] [address], [id number] [place] [facility] [employer] 06/25/2024 10:55:39 09/24/2024 text/html Primary care/Ref erring provider: Key Amaro MD; Charles Kingston MD Patient is here to go over her asthma management. Initial development of shortness of breath: 1988Duration of shortness of breath: 30 yearsCondition of shortness of breath: worseningTiming of shortness of breath: noneFrequency: 3 times a dayLimits activities: yesAggravating factors: walking, going up a 7-step staircase, wipingAlleviating factors: rest Modified [employer] [place] (mMRC) Dyspnea Scale - Grade 2Grade 0 ? I only get breathless with strenuous exercise? .Grade 1 ? I get short of breath when hurrying on the level or walking up a slight hill? .Grade 2 ? I walk slower than people of the same age on the level because of breathlessness or have to stop for breath when walking at my own pace on the level? .Grade 3 ? I stop for breath after walking about 100 yards or after a few minutes on the level? .Grade 4 ? I am too breathless to leave the house? or ? I am breathless when dressing? . Patient's personal best peak flow has increased from 320 to 350 L/min. Treatment history: Albuterol HFA as needed since 2014, uses every day as needed Other symptoms:Drooling: noDysarthria: noNeck pain: noOdynophagia: noDysphagia: noWeak mastication: noFacial weakness: noNasal speech: noProtruding tongue: noProductive cough: noWheezing: noChest tightness: yesOrthopnea: noFrequent throat clearing or swallowing: noPalpitations: noHeartburn: noEdema: no Environmental exposures:Nicotine smoke: neverPaint: noDye: noDust mites: yesMold: noDamp basement: noWood burning stove: noAnimal dander: noCockroaches: noPollen: yesArsenic: noAsbestos: noBeryllium: noCadmium: noChromium: noCoal smoke: noDiesel fumes: noNickel: noSilica: noSoot: no EPWORTH SLEEPINESS SCALE (ESS) CHANCE OF DOZING SCORE0 = would never doze1 = slight chance of dozing2 = moderate chance of dozing3 = high chance of dozing SITUATION AND CHANCE OF DOZINGSitting and reading -0Watching television - 1Sitting inactive in a public place (e.g. a theater or meeting) - 0As a passenger in a car for an hour without a break - 0Lying down to rest in the afternoon when circumstances permit - 1Sitting and talking to someone - 0Sitting quietly after lunch without alcohol - 1In a car, while stopped for a few minutes in the traffic - 0TOTAL SCORE 3Subjectively, patient has a slight chance of dozing. Vinnie Conteh MD [address] [facility], [facility] [address], [place], [address], [facility] [employer] 09/24/2024 15:34:56 OBGyn Episode No OBEpisode recorded.
--- OUTSIDE RECORDS SUMMARY | 2024-10-01 01:28 | XMS_ITS | Clinical Summary ---
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 Warehousing Manager Name Role Phone LEILANI MABRY, NILESH Primary Care Provider [phone] Reason for Visit and Chief Complaint The Chief Complaint is: 1 MO FU Problems Includes: Problems addressed during this encounter and other active Problems Current Visit Onset Date Resolved Date Provider Charla jones Status Chronic Pain Syndrome 07/31/2023 HARLEEN COULTER PMHNP Active Last Documented On 3 1:32PM ; [facility] Plan of Treatment Education and Decision Aids were provided during visit for: Pill Count: 25 HYSINGLA Last Documented On 4 8:54AM ; [facility] Pill Count: two HYSINGLA Last Documented On 4 9:14AM ; [facility] Pill Count: HYDROCODONE ~out of medication Last Documented On 4 9:14AM ; [facility] Assessments Includes: Assessments from this encounter Findings - Systemic lupus erythematosus [M32.9 - Systemic lupus erythematosus, unspecified] - Last Documented On 02/01/2024 9:17AM ; [facility] - Sacroiliitis [M46.1 - Sacroiliitis, not elsewhere classified] - Last Documented On 02/01/2024 9:17AM ; [facility] - Lumbar spondylosis with radiculopathy [M47.26 - Other spondylosis with radiculopathy, lumbar region] - Last Documented On 02/01/2024 9:17AM ; [facility] - Lumbar stenosis with neurogenic claudication [M48.062 - Spinal stenosis, lumbar region with neurogenic claudication] - Last Documented On 02/01/2024 9:17AM ; [facility] - Fibromyalgia [M79.7 - Fibromyalgia] - Last Documented On 02/01/2024 9:17AM ; [facility] - Chronic pain syndrome [G89.4 - Chronic pain syndrome] - Last Documented On 02/01/2024 9:17AM ; [facility] - [facility] use of opiate analgesic [Z79.891 - [facility] (current) use of opiate analgesic] - Last Documented On 02/01/2024 9:17AM ; [facility] Instructions Includes: Instructions from this encounter Education and Decision Aids were provided during visit for: Pill Count: 25 HYSINGLA Last Documented On 8:54AM ; [facility] Pill Count: two HYSINGLA Last Documented On 9:14AM ; [facility] Pill Count: HYDROCODONE ~out of medication Last Documented On 9:14AM ; [facility] Medical Equipment - Implanted Devices Includes: Current Devices No Medical Equipment Recorded Medications Includes: Medications discussed during this encounter and other current Medications Current Medications (continue as prescribed) Narcan 4 MG/0.1ML Nasal Liquid 01/21/2024 Provider: FELISHA SENIOR Diagnosis: Spinal stenosis, lumbar region with neurogenic claudication as directed Last Documented On 4 2:31PM By FELISHA SENIOR ; [facility] Hysingla ER 20 MG Oral Table t ER 24 Hour Abuse-Deterrent 01/21/2024 Provider: FELISHA SENIOR Diagnosis: Spinal stenosis, lumbar region with neurogenic claudication 1 tablet q 24 hours Last Documented On 4 2:31PM By FELISHA SENIOR ; [facility] oxyCODONE-Acetaminophen 10-325 MG Oral Tablet 01/15/20 Provider: Diagnosis: Last Documented On 02/01/2024 8:52AM By Lilli MAK ; [facility] traZODone HCl 100 MG Oral Tablet 11/02/2023 Provider : Diagnosis: Last Documented On 4 10:13AM By Lilli MAK ; [facility] Cyclobenzaprine HCl 10 MG Oral Tablet 10/29/2023 Pro vider: REFUGIO AMARO MD Diagnosis: Last Documented On 4 10:15AM By Lilli MAK ; [facility] Ketoconazole 2% External Cream 10/29/2023 Provider: REFUGIO AMARO MD Diagnosis: Last Documented On 4 10:15AM By Lilli MAK ; [facility] hydrOXYzine HCl 50 MG Oral Tablet 10/26/2023 Provide r: Diagnosis: Last Documented On 4 10:16AM By Lilli MAK ; [facility] Anastrozole 1 MG Oral Tablet 10/24/2023 Provider: Diagnosis: Last Documented On 4 10:16AM By Lilli MAK ; [facility] FeroSul 325 (65 Fe) MG Oral Tablet 10/24/2023 Provid er: Diagnosis: Last Documented On 4 10:18AM By Lilli MAK ; [facility] Venlafaxine HCl ER 225 MG Oral Tablet Extended R elease 24 Hour 10/23/2023 Provider: Diagnosis: Last Documented On 4 10:18AM By Lilli MAK ; [facility] Pregabalin 200 MG Oral Capsule 10/08/2023 Provider: FELISHA HERRERA- Diagnosis: Fibromyalgia TAKE 1 CAPSULE BY MOUTH TWICE DAILY Last Documented On 4 1:51PM By FELISHA SENIOR ; [facility] Omeprazole 40 MG Oral Capsule Delayed Release 08/11/20 Provider: Diagnosis: Last Documented On 4 10:17AM By Lilli MAK ; [facility] Lisinopril 40 MG Oral Tablet 04/11/2023 Provider: REFUGIO AMARO MD Diagnosis: Last Documented On 3 10:40AM By Lilli MAK ; [facility] Famotidine 20 MG Oral Tablet 01/23/2023 Provider: Diagnosis: Last Documented On 02/05/2023 4:01PM By Lilli MAK ; [facility] ARIPiprazole 2 MG Oral Tablet 01/09/2023 Provider: Diagnosis: Last Documented On 02/05/2023 4:04PM By Lilli MAK ; [facility] busPIRone HCl 15 MG Oral Tablet 09/20/2022 Provider: Diagnosis: Last Documented On 02/05/2023 4:05PM By Lilli MAK ; [facility] NIFEdipine ER 30 MG Oral Tab let Extended Release 24 Hour 05/04/2022 Provider: REFUGIO AMARO MD Diagnosis: Last Documented On 05/09/2022 3:25PM By Lilli MAK ; [facility] Metoprolol Succinate ER 200M G Oral Tablet Extended Release 24 Hour 10/03/2018 Provider: Diagnosis: Last Documented On 9 3:00PM By VENKAT MAK ; [facility] Medications Administered Includes: Administered Medications from this encounter No Administered Medications Recorded Vital Signs Includes: Vital Signs from this encounter Vital Name 02/01/2024 08:50A Temp-Oral (F) 98.6 Height (in) 65 Weight (lb) 215 Body Mass Index 35.8 Body Surface Area 2 Pain Level 8 Last Documented: On 02/01/2024 8:51AM ; [facility] Results Includes: Results discussed during this encounter No Results Recorded For Specified Dates History of Present Illness Includes: History of Present Illness from this encounter HPI - Allergy list reviewed - Allergy list reviewed - Problem list reviewed - Medication reconciliation performed - Medication list reviewed - Prescription Drug Monitoring Program website checked. 01/21/24 - Prescription Drug Monitoring Program website checked. 11/20/23 - How much of the medication are you taking a day? ONCE A DAY - Last dose of medication? TODAY - Last dose of medication? THIS MORNING [...] obtained today. Discussion: Patient is a follow-up on medication. She is prescribed Hysingla 20 mg once daily for chronic neck and low back pain. Recently, she underwent foot surgery and has been prescribed oxycodone 10/325 mg by the surgeon. She did notify the office. She is taking this typically 3 times daily. She is still having quite a bit of foot pain. She had a follow-up with orthopedic surgeon this week and plans another follow-up in one month. For now, she will continue with current dosing regimen. She was prescribed Narcan with last prescription. We will follow-up in office in one month. Prior visit 12/17/23: Patient is a follow-up for medication. Hysingla [...] month. I would like to avoid escalating long-acting opioids prior to the surgery. She continues [...] spinal cord summation trial using 28 contact [employer] percutaneous leads. His replacement. Guidance. Patient tolerated the procedure well. Despite multiple efforts approved reprogramming, and a report back to the [employer] career services representative that she was getting approximate 75% [...] home and call office. Past note: Ms. Mendenhall returns in follow-up for medication management as well as further discussion of spinal cord stimulation for intractable low back pain with lower extremity. She has discussed option for spinal cord stimulation with Dr. Gallardo and met necessary requirements of psychological evaluation and meeting with the [employer] career services representative. Psychological evaluation revealed no barriers to [...] will need a refill of hydrocodone today. [place] CUSTOMER RELATIONS COORDINATOR appropriate. Last UDS appropriate, this will be [...] simulation trial under fluoroscopic guidance. Of note, [place] prescription monitoring database was reviewed and found [...] UDS appropriate. We will repeat this today. [facility] appropriate. She has exhibited no signs of [...] allows her to maintain function levels. [place] CUSTOMER RELATIONS COORDINATOR is appropriate. UDS was appropriate Past note: [...] for visit: Provider: Privacy of provider's office. [address] [place] [address] Patient: Patient personal setting Total time spent with patient via telecommunication 15 minutes Social History Description Last Updated Tobacco non-user 11/07/2023 Last Documented On 4 8:46AM ; [facility] Alcohol 07/31/2023 Last Documented On 4 8:46AM ; [facility] Consuming 5 or more drinks per day None 07/31/2023 Last Documented On 4 8:46AM ; [facility] Current nonsmoker 07/31/2023 Last Documented On 4 8:46AM ; [facility] Drug use 07/31/2023 Last Documented On 4 8:46AM ; [facility] Lives with spouse 07/31/2023 Last Documented On 4 8:46AM ; [facility] Non-smoker 07/31/2023 Last Documented On 4 8:46AM ; [facility] Number of times used recreat ional drug/ prescription drug for nonmedical reason. None 07/31/2023 Last Documented On 4 8:46AM ; [facility] Smoking status : Never smoker 08/07/2019 Last Documented On 4 8:46AM ; [facility] Currently 10/03/2018 Last Documented On 4 8:46AM ; [facility] Procedures and Surgical History Includes: Procedures from this encounter Procedures Code Diagnosis Performing Provider Service Location Service Date CLINIC VISIT ([employer]IA 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 ~ Patient understands and agrees with treatment plan. Questions answered Last Documented On 4 9:13AM ; [facility] Medical History Includes: Medical History addressed during this encounter Description Last Updated Reviewed and Unchanged 10/10/2019 Last Documented On 4 8:46AM ; [facility] Currently wearing eyeglasses 10/03/2018 Last Documented On 4 8:46AM ; [facility] Previously 3 time(s) 10/03/2018 Last Documented On 4 8:46AM ; [facility] History of arthritis 10/03/2018 Last Documented On 4 8:46AM ; [facility] History of cancer 10/03/2018 Last Documented On 4 8:46AM ; [facility] History of hypertension 10/03/2018 Last Documented On 4 8:46AM ; [facility] Family History Includes: Family History addressed [...] Active Last Documented On 4 8:53AM ; [facility] Encounters Encounter Provider Location Date Check-In Time Check-Out Time Diagnosis [facility]LE[facility] FELISHA SENIOR [facility] 02/01/20 24 9:00AM 9:23AM Systemic Lupus Erythematosus,Chr onic Pain Syndrome,Sacroili itis,Fibromyalgia ,Spinal Stenosis Lumbar with Neurogenic Claudication,Spon dylosis with Radiculopathy Lumbar Region,Skilled Nursing Use of Opiate Analgesic Insurance Includes: Active Insurance Policies Plan Name Member ID Group # Subscriber Relationship Effect nieves Dates 1 - [employer] [facility] [id number] KATHY MENDENHALL Self Clinical Notes Includes: Clinical Notes from this encounter * Progress note Date Encounter Last Documented by 02/01/2024 TELEHEALTH Last documented on 02/01/2024; 9:17 AM, FELISHA SENIOR; [facility] Active Problems & Conditions - Chronic Pain Syndrome Chief Complaint The Chief Complaint is: 1 MO FU. History of Present Illness - Allergy list reviewed - Allergy list reviewed - Problem list reviewed - Medication reconciliation performed - Medication list reviewed - Prescription Drug Monitoring Program website checked. 01/21/24 - Prescription Drug Monitoring Program website checked. 11/20/23 - How much of the medication are you taking a day? ONCE A DAY - Last dose of medication? TODAY - Last dose of medication? THIS MORNING [...] obtained today. Discussion: Patient is a follow-up on medication. She is prescribed Hysingla 20 mg once daily for chronic neck and low back pain. Recently, she underwent foot surgery and has been prescribed oxycodone 10/325 mg by the surgeon. She did notify the office. She is taking this typically 3 times daily. She is still having quite a bit of foot pain. She had a follow-up with orthopedic surgeon this week and plans another follow-up in one month. For now, she will continue with current dosing regimen. She was prescribed Narcan with last prescription. We will follow-up in office in one month. Prior visit 12/17/23: Patient is a follow-up for medication. Hysingla [...] month. I would like to avoid escalating long-acting opioids prior to the surgery. She continues [...] spinal cord summation trial using 28 contact [employer] percutaneous leads. His replacement. Guidance. Patient tolerated the procedure well. Despite multiple efforts approved reprogramming, and a report back to the [employer] career services representative that she was getting approximate 75% [...] home and call office. Past note: Ms. Mendenhall returns in follow-up for medication management as well as further discussion of spinal cord stimulation for intractable low back pain with lower extremity. She has discussed option for spinal cord stimulation with Dr. Gallardo and met necessary requirements of psychological evaluation and meeting with the [employer] career services representative. Psychological evaluation revealed no barriers to [...] will need a refill of hydrocodone today. [facility] appropriate. Last UDS appropriate, this will be [...] simulation trial under fluoroscopic guidance. Of note, [place] prescription monitoring database was reviewed and found [...] UDS appropriate. We will repeat this today. [facility] appropriate. She has exhibited no signs of [...] Medication allows her to maintain function levels. [place] CUSTOMER RELATIONS COORDINATOR is appropriate. UDS was appropriate Past note: [...] 200 MG 0 days, 0 refills - Narcan 4 MG/0.1ML Nasal Liquid as directed, 30 days, 0 refills - NIFEdipine ER 30 MG Oral Tablet Extended Release 24 Hour One tablet daily 30 days, 0 refills - Omeprazole 40 MG Oral Capsule Delayed Release 1 capsule daily 30 days, 0 refills - oxyCODONE-Acetaminophen 10-325 MG Oral Tablet 1 every 6 hours as needed 10 days, 0 refills - Pregabalin 200 MG [...] No rash. Physical Findings - Vitals taken 02/01/2024 08:50 am Temp-Oral 98.6 F Height 65 in Weight 215 lbs Body Mass Index 35.8 kg/m2 Body Surface Area 2 m2 Pain Level 8 Pain Level Note LEFT FOOT General Appearance: - Normal. - In no [...] syndrome [G89.4 - Chronic pain syndrome] - [facility] use of opiate analgesic [Z79.891 - [facility] (current) use of opiate analgesic] Therapy - Clinical summary provided to patient via portal/mailed. Patient understands and agrees with treatment plan. Questions answered. Counseling/Education - Pill Count: 25 HYSINGLA - Pill Count: two HYSINGLA - Pill [...] medication properly and to never share medication. Follow-up in office one month Call when refill needed. Practice Management Use of tobacco assessment performed Review of medications documented. Health Reminders - Assess BMI satisfied 02/01/2024. - Assess Need for CT Lung Screen satisfied 02/01/2024. - Assess Tobacco Use satisfied 02/01/2024. User Defined 27 Location for visit: Provider: Privacy of provider's office. [address] [place] [id number] Patient: Patient personal setting Total time spent with patient via telecommunication 15 minutes
--- OUTSIDE RECORDS SUMMARY | 2024-10-01 01:29 | XMS_ITS | Referral Summary ---
Author Organization [facility] Address [address] [place] [address] Care Team Providers Care Retort Fireman Name Role Phone Key Tolliver MD Primary Care Provider Pablo Liriano MD Unavailable [phone] Evan Willis MD Unavailable [phone] Charles Kingston MD Unavailable Source Comments [facility],non-owned Affiliates and Associated Physician Practices is amultiple site organization consisting of ambulatory clinics and hospital sitesin [place], [place], [place] and [place]. This disclosure is being madepursuant to the Care Everywhere program and may not contain all information available regarding this patient. Last updated 18.[facility] Encounters Date Type Department Care Team Description 09/17/2024 11:19 AM ASSOCIATE DOCTOR - 09/17/2024 11:59 PM ASSOCIATE DOCTOR Hospital Encounter [facility] [address] [place] [phone] Discharge Disposition: Home or Self Care 09/17/2024 Travel 09/17/2024 11:00 AM ASSOCIATE DOCTOR Office Visit [facility] - Rheumatology [address] [facility] [address] [facility] [place] [phone] Ev Lowery MD Positive double stranded 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 (Primary Dx); Primary osteoarthritis of both hands; Positive JENNIFER (antinuclear antibody); Polyarthralgia 09/16/2024 Travel 07/18/2024 Refill [facility] - Orthopedics [address] [facility] [place] [phone] Deni Chavez MD Refill Request 07/16/2024 Orders Only [facility] - Orthopedic Surgery [address] [place] [address] Zechariah Soto LPN 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 from Last 3 Months Allergies Active Allergy Reactions Criticality Noted Date Comments Adhesive Sensitivity Rash,Skin Reactions High 2016 TEGADERM Other reaction(s): SKIN TURNED RED, AND LOOKED LIKE A BURN, TEGADERM HAD THE WORSE REACTION Medications * Be aware that medications may not be up to date on this document. Alwaysverify current medications with the patient. Medication Sig Dispensed Refills Start Date End Date Status Venlafaxine HCl (VENLAFAXINE ER 24HR) 225 MG tablet Take 1 (one) tablet by mouth daily with breakfast 4 07/01/2019 Active cyclobenzaprine (Flexeril) 10 MG tablet TAKE 1 TABLET BY MOUTH TWICE DAILY NEEDED FOR MUSCLE SPASMS 60 tablet 1 04/26/2022 Active ARIPiprazole (Abilify) 2 MG tablet Take by mouth once daily Active hydrOXYzine HCl (Atarax) 50 MG tablet Take 2 (two) tablets by mouth at bedtime 04/16/2023 Active lisinopril (Prinivil; Zestril) 40 MG tablet Take 1 (one) tablet by mouth once daily Active NIFEdipine CR 24hr (Adalat CC) 30 MG tablet Take 1 (one) tablet by mouth once daily Active pantoprazole EC (Protonix) 40 MG tablet Take 1 (one) tablet by mouth once daily 04/15/2023 Active omeprazole (PriLOSEC) 40 MG capsule Take 1 (one) capsule by mouth 2 times daily Active celecoxib (CeleBREX) 200 MG capsule Take 1 (one) capsule by mouth once daily 03/19/2023 Active methocarbamol (Robaxin) 750 MG tablet Take 1 (one) tablet by mouth every 6 hours as needed for Muscle Spasms 20 tablet 08/10/2023 Active anastrozole (Arimidex) 1 MG tablet Take 1 (one) tablet by mouth once daily 07/17/2023 Active busPIRone (Buspar) 15 MG tablet Take 1 (one) tablet by mouth 3 times daily with meals 05/08/2023 Active ferrous sulfate 325 (65 FE) MG tablet Take 1 (one) tablet by mouth once daily 07/17/2023 Active metoprolol succinate XL 24hr (Toprol XL) 200 MG tablet metoprolol succinate 200 mg tablet extended release 24 hr 07/03/2022 Active traZODone (Desyrel) 150 MG tablet Take 1 (one) tablet by mouth at bedtime 07/18/2023 Active docusate sodium (Colace) 100 MG capsule Take 1 (one) capsule by mouth once daily 30 capsule 01/15/2024 Active naloxone HCl (Narcan) 4 MG/0.1ML nasal spray CALL 911. SPR CONTENTS OF ONE SPRAYER (0.1ML) INTO ONE NOSTRIL. REPEAT IN 2-3 MIN IF SYMPTOMS OF OPIOID EMERGENCY PERSIST, ALTERNATE NOSTRILS Active aspirin (Aspirin) 325 MG tablet Take 1 (one) tablet by mouth once daily 35 tablet 02/20/2024 Active ketoconazole (Nizoral) 2 % shampooIndications :Seborrheic dermatitis Apply to wet hair, leave on for 3 minutes, then rinse; three times weekly. 30 days supply 112 mL 5 03/05/2024 Active Additional Information Patient not taking.Reported on 03/18/2024 ketoconazole (Nizoral) 2 % creamIndications:S eborrheic dermatitis Apply to face 1-2 times daily for rash. 30 days supply. 60 g 3 03/05/2024 Active Additional Information Patient not taking.Reported on 03/18/2024 fluocinolone (Dermotic) 0.01 % otic oilIndications:Ousmane orrheic dermatitis Apply to ears 1-2 times daily as needed for itching. 20 mL 3 03/05/2024 Active Additional Information Patient not taking.Reported on 03/18/2024 fluocinolone acetonide (Synalar) 0.01 % solutionIndication s:Seborrheic dermatitis Apply to scalp 1-2 times daily as needed for itching. 30 days supply. 60 mL 3 03/05/2024 Active Additional Information Patient not taking.Reported on 03/18/2024 buPROPion XL 24hr (Wellbutrin-XL) 150 MG tablet Take 1 (one) tablet by mouth once daily 02/27/2024 Active oxyCODONE, immediate release, (Roxicodone) 5 MG tabletIndications: Orthopedic aftercare Take 1 (one) tablet by mouth every 6 hours as needed for Pain 12 tablet 03/21/2024 Active ondansetron (Zofran) 8 MG tablet Take 1 (one) tablet by mouth every 8 hours as needed for Nausea/Vomiting 42 tablet 1 04/30/2024 Active meloxicam (Mobic) 15 MG tablet TAKE 1 TABLET BY MOUTH DAILY 30 tablet 09/01/2024 Active acetaminophen-code ine (Tylenol #3) 300-30 MG tablet Take 1 (one) tablet by mouth every 6 hours as needed pain 06/13/2024 Active famotidine (Pepcid) 20 MG tablet Take 1 (one) tablet by mouth at bedtime 09/14/2024 Active fish oil/omega-3 fatty acids (Promega;Cardi-Ome ga 3) 1000 MG capsule Take by mouth once daily Active Active Problems Problem Noted Date Diagnosed Date Failed orthopedic implant, initial encounter Incontinence of feces 05/03/2023 05/03/2023 Crampy pain 05/03/2023 05/03/2023 Nausea 05/03/2023 05/03/2023 Peptic ulcer 05/03/2023 05/03/2023 Acid reflux 05/03/2023 05/03/2023 Lupus erythematosus 05/03/2023 05/03/2023 Hypertensive disorder 05/03/2023 05/03/2023 Gastroesophageal reflux disease without esophagi tis 03/14/2023 05/03/2023 Urge incontinence of urine 12/11/202205/03 Arthralgia of right knee 11/01/2022 023 Tendinitis of right rotator cuff 11/01/2022 05/03/2023 Pain in joint of right shoulder 11/01/2022 05/03/2023 Mechanical complication of implant 11/01/2022 05/03/2023 Encounter for care related to Port-a-Cath 2021 Pyogenic arthritis of left s houlder region, due to unspecified organism 06/13/2022 Postoperative visit 01/27/2022 05/03/2023 Acquired pes planus of both feet 12/01/2021 05/03/2023 Orthopedic hardware present 12/01/2021 083 09/2022 Foot pain 12/01/2021 05/03/2023 Pain of both sacroiliac joints 06/21/2021 0 05/03/2023 Pain of right sacroiliac joint 06/21/2021 0 05/03/2023 Infectious disease contact 04/27/2021 Other viral disease contact 04/27/202104/05 Contact with and (suspected) exposure to other viral communicable diseases 04/27/2021 08/09/2023 Trigger finger of left hand 04/19/2021 0809/2022 Family history of stroke 03/30/2021 Family history of hypertension 03/30/2021 Family history of hyperlipidemia 03/30/2021 Atherosclerotic heart diseas e of [place] coronary artery without angina pectoris 03/30/2021 Chest pain, unspecified 03/30/2021 S/P reverse total shoulder arthroplasty, right 0 03/30/2020 Disorder of skin of trunk 03/25/2020 Accidental fall 03/25/2020 Adhesive capsulitis of shoulder 03/25/2020 Brachial neuritis 03/25/2020 Lateral epicondylitis 03/25/2020 Encounter for removal of sutures 03/25/2020 Disorder of shoulder 03/25/2020 Disorder of lower extremity 03/25/2020 Low back pain 03/25/2020 Sprain of sacroiliac ligament 03/25/2020 Derangement of knee 03/25/2020 Overexertion and strenuous movements 03/25/2020 Personal history of irradiat ion, presenting hazards to health 03/25/2020 Primary localized osteoarthritis of pelvic regio n and thigh 03/25/2020 Recurrent dislocation of shoulder region 020 Spinal stenosis of lumbar region 03/25/2020 Shoulder joint pain 03/25/2020 Infection associated with prosthesis of left fredo ulder joint 03/25/2020 Bicipital tenosynovitis 03/25/2020 Disorder of sacrum 03/25/2020 Spinal enthesopathy 03/25/2020 Radiotherapy follow-up 03/25/2020 Postoperative pain 03/25/2020 Pain in limb 03/25/2020 Osteoarthritis of knee 03/25/2020 Knee pain 03/25/2020 Tear of lateral cartilage or meniscus of knee, c urrent 03/25/2020 Arthropathy of hand 03/25/2020 Lumbosacral spondylosis without myelopathy 03/25 Lesion of ulnar nerve 03/25/2020 Infection of venous access port 03/25/2020 Fever, unknown origin 03/25/2020 Enthesopathy of hip region 03/25/2020 Disorder of rotator cuff 03/25/2020 Degeneration of intervertebral disc 03/25/2020 Joint replaced by other means 03/25/2020 Pes planus 03/25/2020 History of total knee arthroplasty 01/27/2020 Symptomatic hypotension 10/24/2019 Trigger finger of right hand 09/11/2019 Pes planovalgus, acquired, right 08/19/2019 Pes planovalgus, acquired, left 08/19/2019 Tightness of both gastrocnemius muscles 08/19/20 19 Subfibular impingement of right lower extremity 08/19/2019 Abnormal EKG 03/12/2019 Muscle spasm 01/09/2019 Shoulder stiffness, left 01/03/2019 Acquired absence of bilateral breasts and nipple s 12/19/2018 Aromatase inhibitor use 12/19/2018 History of antineoplastic chemotherapy 9 Obesity (BMI 35.0-39.9 without comorbidity) 12/02 History of external beam radiation therapy 12/19 History of therapeutic radiation 12/19/2018 Lupus 09/25/2018 Pulmonary hypertension 09/25/2018 Hypertension 09/25/2018 Lumbar radiculopathy 08/01/2018 Myalgia 07/17/2018 Chronic pain 07/17/2018 Encounter for medication monitoring 07/17/2018 Mass of colon 05/12/2018 Pleurisy 03/13/2018 Dysuria 03/13/2018 Positive JENNIFER (antinuclear antibody) 01/18/2018 Pulmonary hypertension 01/18/2018 Arthralgia 01/18/2018 Streptococcal arthritis of knee 10/07/2017 Exacerbation of systemic lupus 10/05/2017 Chronic constipation 09/11/2017 Obstructive sleep apnea 09/11/2017 Depression 09/11/2017 Staphylococcal arthritis of right elbow 07/29/20 17 Cellulitis of forearm, right 07/20/2017 Encounter for monitoring of hydroxychloroquine t herapy 12/25/2016 Chronic bronchitis 09/13/2016 Situational depression 09/13/2016 Malignant neoplasm of upper- outer quadrant of left breast in female, estrogen receptor positive 09/13/2016 Benign hypertension 09/13/2016 Acquired hypothyroidism 09/13/2016 Hypothyroidism 06/19/2016 Chronic obstructive pulmonary disease 06/19/2016 Drug-induced osteoporosis 02/08/2016 Malignant neoplasm of unspec ified site of left female breast 02/08/2016 Hypergammaglobulinemia 09/04/2015 ESR raised 09/04/2015 Vitamin D insufficiency 08/23/2015 History of malignant neoplasm of breast 08/23/20 15 Chronic neck and back pain 11/19/2014 Sinus tachycardia 02/18/2014 Obesity 02/18/2014 GERD (gastroesophageal reflux disease) 3 Malignant neoplasm of breast 05/15/2013 Abdominal pain 05/15/2013 Infected prosthetic knee joint, initial encounte r Streptococcal arthritis of left shoulder Gastrocnemius equinus of right lower extremity Posterior tibial tendinitis of right lower extre mity Chronic left shoulder pain S/P reverse total shoulder arthroplasty, left Failed orthopedic implant Closed displaced fracture of left acromial proce ss Resolved Problems Problem Noted Date Diagnosed Date Resolved Date Diarrhea 05/03/2023 05/03/2023 05/31/2023 UTI (urinary tract infection) 02/02/2016 04/08/2020 Immunizations Name Administration Dates Next Due INFLUENZA VACCINE, TRIV. (AF LURIA, FLUZONE TRIVALENT; 6MO+) (IIV3) 07/04/2019 FLU VACCINE TRI IIV3 SPLIT IM (FLUVIRIN) 014 FLU VACCINE TRI IIV3 SPLIT PF IM (FLUVIRIN) 07/04 INFLUENZA VACCINE 06/17/2020 INFLUENZA VACCINE, QUADR. (F LUZONE; FLULAVAL; FLUARIX; AFLURIA QUADRIVALENT; 6MO+), 0.5 ML (IIV4) 05/15/2018 TDAP (7yrs+) 09/11/2017 Social History Tobacco Use Types Packs/Day Years Used Date Smoking Tobacco: Never Smokeless Tobacco: Never Alcohol Use Standard Drinks/Week Comments No 0 (1 standard drink = 0.6 oz pur e alcohol) AUDIT-C Answer Date Recorded Q1: How often do you have a drink containing alcohol? Never 07/07/2022 Q2: How many drinks containi ng alcohol do you have on a typical day when you are drinking? Patient does not drink Q3: How often do you have si x or more drinks on one occasion? Never 07/07/2022 PHQ-2 Answer Date Recorded PHQ2 TOTAL SCORE 0 05/01/2022 Hunger Vital Sign Answer Date Recorded Within the past 12 months, y ou worried that your food would run out before you got the money to buy more. Never true 07/07/20 22 Within the past 12 months, t he food you bought just didn't last and you didn't have money to get more. Never true 07/07/2022 Sex and Gender Information Value Date Recorded Sex Assigned at Not on file Gender Identity Not on file Sexual Orientation Not on file Last Filed Vital Signs Vital Sign Reading Time Taken Comments Blood Pressure 135/91 09/17/2024 11:02 AM ASSOCIATE DOCTOR Pulse 82 09/17/2024 10:56 AM ASSOCIATE DOCTOR Temperature 36.3 ??C (97.3 ??F) 09/17/2024 10:[address] Respiratory Rate 14 01/17/2024 11:17 AM CDT Oxygen Saturation 95% 03/18/2024 3:10 PM CDT Inhaled Oxygen Concentration 21% 03/21/2019 3 :09 AM CDT Weight 105.7 kg (233 lb) 09/17/2024 10:56 AM ASSOCIATE DOCTOR Height 165.1 cm (5' 5 ) 09/17/2024 10:56 AM ASSOCIATE DOCTOR Body Mass Index 38.77 09/17/2024 10:56 AM ASSOCIATE DOCTOR Functional Status Functional Status Response Date of Assess ment Is person deaf or have serious hearing difficult y? No 06/14/2022 Is person blind or have serious difficulty seein g? No 06/14/2022 Does person have serious dif ficulty walking/climbing stairs? No 06/14/2022 Does person have difficulty dressing/bathing? No 06/14/2022 Does person have difficulty doing errands alone? No 06/14/2022 Cognitive Status Response Date of Assessm ent Does person have difficulty concentrating/remembering/making decisions? No 06/14/2022 Plan of Treatment Upcoming Encounters Date Type Department Care Team (Late st Contact Info) Description 03/11/2025 11:20 AM CDT Office Visit [facility] - Rheumatology [address] [place] [address], [place] [phone] Ev Lowery MD [address] [place] [address] [place] [phone] Goals Goal Patient Goal Type Associated Problems Recent Progress Patient-Stated? Author Mobility General Improving( 1:50 PM CDT) No Coreen Muñoz, DARRON Note: Expected end date: 12/01/2020 The goal is to maintain or improve your mobility at the optimum level for you. Interventions: Mobility General Worsening( 1:20 PM ASSOCIATE DOCTOR) No Lilo Kaminski, DARRON Note: Expected end date: 11/17/2019 The goal is to maintain or improve your mobility at the optimum level for you. Interventions: PAIN General No Shira Sun Note: Expected end date: 01/18/2020 Patient's pain/discomfort is manageable. Interventions: Medical Devices Implanted Type Area Locum Tenens Device Identifier Shelf Expiration Date Model / Serial / Lot Cmnt Bone Plc R+Ggnta 40gm Lf Grn Implanted:Qty: 1 on 10/11/2017 by Rajendra Ingram MD at [facility] Left: Knee [employer] 12/01/2020 [id number] / / [id number] Description:12 BEADS IN LEFT KNEE ON VICRYL SUTURE 21 BEADS IN RIGHT KNEE ON VICRYL SUTURE Brng [id number] Vngrd Arcm Kn Ant Stab Implanted:Qty: 1 on 10/16/2017 by Rajendra Ingram MD at [facility] Left: Knee [employer] 06/09/2022 [id number] / / Brng [id number] Vngrd Arcm Kn Ant Stab Implanted:Qty: 1 on 10/16/2017 by Rajendra Ingram MD at [facility] Right: Knee [employer] 07/25/2022 [id number] / / Cmpnt Tibtry Bmt As Mx Kn Intlk Prm Lck Implanted:Qty: 1 on 10/16/2017 by Rajendra Ingram MD at [facility] Left: Knee [employer] 07/11/2027 [id number] / / Cmpnt Tibtry Bmt As Mx Kn Intlk Prm Lck Implanted:Qty: 1 on 10/16/2017 by Rajendra Ingram MD at [facility] Right: Knee [employer] 06/17/2027 [id number] / / Kam Kn Tot Rev 50% Of 2014 Implanted:Qty: 1 on 10/16/2017 by Rajendra Ingram MD at [facility] Wan [employer]omet KR2 KNEE TO T REV WAN BILL ONLY / / Cmpnt Glnd 38mm Std Glenosphere Sckt Geovany Implanted:Qty: 1 on 03/19/2019 by Pablo Liriano MD at [facility] Left: Shoulder [employer] Inc 11/01/2023 [id number] / / Description:DXTND GLENOSPHER E STD N63UC--84/22 LG Dxtend Mod Cent Epi 1 Ocampo Implanted:Qty: 1 on 03/19/2019 by Pablo Liriano MD at [facility] Left: Shoulder 01/01/2024 1307-20-101 / / Description:delta xtend mudu lar centered epiphysis Global Unite Std Stem Sz 8 Implanted:Qty: 1 on 03/19/2019 by Pablo Liriano MD at [facility] Left: Shoulder 08/02/2027 1100-08-100 / / Description:global unite por ocoat standard stem Dxtend Stand Pe Cup D38 +3mm Implanted:Qty: 1 on 03/19/2019 by Pablo Liriano MD at [facility] Left: Shoulder 1307-38-203 / / [id number] Description:Delta xtend lyudmila ral PE cup standard Sys Shld Tot Arthroplst Rev Implanted:Qty: 1 on 03/19/2019 by Pablo Liriano MD at [facility] Left: Shoulder [employer] S4 DEPUY / / Cmpnt Glnd 27mm Std Geovany Xtend Metaglene Implanted:Qty: 1 on 03/19/2019 by Pablo Liriano MD at [facility] Left: Shoulder [employer] 12/02/2023 1307-60-000 / / Description:DXTEND METAGLENE Dxtend Screw Lock D4.5x36mm Implanted:Qty: 1 on 03/19/2019 by Pablo Liriano MD at [facility] Left: Shoulder 12/02/2023 1307-90-036 / / Description:PACK ACL TISSUE FX CSTM SRG PRC DISP Screw 4.5mm 30mm Shldr Glnd Lck Geovany Implanted:Qty: 1 on 03/19/2019 by Pablo Liriano MD at [facility] Left: Shoulder [employer] 01/01/2024 1307-90-030 / / Description:DXTEND SCREW LOC K D4.5B32FD--95/22 LG 6.5mm Canellous Screw Implanted:Qty: 1 on 10/25/2020 by Anjelica Gutierres MD at [facility] Right: Ankle [employer] 486-55-01 / / 6.5mm Cancellous Screw Implanted:Qty: 1 on 10/25/2020 by Anjelica Gutierres MD at [facility] Right: Ankle [employer] / / Cortical Screw 2.7mm Implanted:Qty: 1 on 10/25/2020 by Anjelica Gutierres MD at [facility] Right: Ankle [employer] 29-0017-085-35 / / Screw 3.5mm 32mm 2.5mm Slf-Tap Sm Hex Implanted:Qty: 2 on 10/25/2020 by Anjelica Gutierres MD at [facility] Right: Ankle [employer] [id number] / / Screw 3.5mm 45mm 2.5mm Slf-Tap Sm Hex Implanted:Qty: 1 on 10/25/2020 by Anjelica Gutierres MD at [facility] Right: Ankle [employer] [id number] / / Graft Bone Alfs + Dbm 1cc Algrf Pst Implanted:Qty: 1 on 10/25/2020 by Anjelica Gutierres MD at [facility] Right: Ankle Allosource 04/08/2021 [id number] / / [id number] Bsplt Glnd 30mm Rsp Shldr P2 Strl Lf Implanted:Qty: 1 on 04/26/2022 by Mariano Guzmán MD at [facility] Left: Shoulder [employer] 03/23/2028 508-32-204 / / [id number] Screw 5mm 14mm Shldr Lck Rsp Glnd Bsplt Implanted:Qty: 1 on 04/26/2022 by Mariano Guzmán MD at [facility] Left: Shoulder [employer] 03/25/2028 506-03-114 / / [id number] Screw 5mm 14mm Shldr Lck Rsp Glnd Bsplt Implanted:Qty: 1 on 04/26/2022 by Mariano Guzmán MD at [facility] Left: Shoulder [employer] 04/05/2028 506-03-114 / / [id number] Screw 5mm 30mm Shldr Lck Rsp Glnd Bsplt Implanted:Qty: 1 on 04/26/2022 by Mariano Guzmán MD at [facility] Left: Shoulder [employer] 03/13/2028 506-03-130 / / [id number] Screw 5mm 30mm Shldr Lck Rsp Glnd Bsplt Implanted:Qty: 1 on 04/26/2022 by Mariano Guzmán MD at [facility] Left: Shoulder [employer] 03/18/2028 506-03-130 / / [id number] Cmnt Bone Djo Srg Cblt 40gm Hvisc Strl Implanted:Qty: 1 on 04/26/2022 by Mariano Guzmán MD at [facility] Left: Shoulder [employer] 03/16/2023 600-15-000 / / [id number] Head Glnd 32mm Rsp Ntrl Shldr Rtn Screw Implanted:Qty: 1 on 04/26/2022 by Mariano Guzmán MD at [facility] Left: Shoulder [employer] 03/22/2028 508-32-101 / / [id number] Ins Sckt Rsp Djo Srg +4mm Hum Hxe+ Implanted:Qty: 1 on 04/26/2022 by Mariano Guzmán MD at [facility] Left: Shoulder [employer] 12/26/2026 509-01-432 / / [id number] Humeral Stem Reverse Size 8mm X 108mm Implanted:Qty: 1 on 04/26/2022 by Mariano Guzmán MD at [facility] Left: Shoulder [employer] 10/05/2027 530-08-108 / / [id number] Rstrc Cmnt Cl Ct 10mm Implanted:Qty: 1 on 04/26/2022 by Mariano Guzmán MD at [facility] Left: Shoulder [employer] 07/03/2024 415-00-100 / / [id number] Rsp Humeral Socket Insert 32mm Semi-Constrain ed Implanted:Qty: 1 on 06/14/2022 by Mariano Guzmán MD at [facility] Left: Shoulder [employer] 08/12/2026 509-01-032 / / [id number] Spcr Hum Djo Srg Rsp +8mm Mnblck Strl Lf Implanted:Qty: 1 on 06/14/2022 by Mariano Guzmán MD at [facility] Left: Shoulder [employer] 04/12/2028 510-08-000 / / [id number] Head Glnd 32mm Rsp Ntrl Shldr Rtn Screw Implanted:Qty: 1 on 06/14/2022 by Mariano Guzmán MD at [facility] Left: Shoulder [employer] 05/17/2028 508-32-101 / / [id number] Screws Implanted:Qty: 1 on 08/10/2023 by Jace Muller MD at [facility] Left: Ankle AR-8935-32 / / Description:3.0-4.0 ARTHREX VENDOR TRAY Screw Implanted:Qty: 1 on 08/10/2023 by Jace Muller MD at [facility] Left: Ankle Arthrex Inc AR-8940-34 / / Description:3.0-4.0 ARTHREX TRAY Kit Bngf 3cc Aug Inj Implanted:Qty: 1 on 01/14/2024 by Jace Muller MD at [facility] Left: Ankle PingSt[employer] Inc 08/30/2026 [id number] / / [id number] Graft Bone Ignite 2 Mini 4cc Pwr Mx - [id number] Implanted:Qty: 1 on 01/14/2024 by Jace Muller MD at [facility] Left: Ankle PingStamp Inc 07/19/2028 [id number] / [id number] / Allosync Pure 5cc Implanted:Qty: 1 on 01/14/2024 by Jace Muller MD at [facility] Left: Ankle Arthrex Inc 08/20/2028 ABS-2009- / / [id number] 7.0 Screw 55 Implanted:Qty: 1 on 01/14/2024 by Jace Muller MD at [facility] Left: Ankle Ar[employer] Inc AR-8770-5H / / 7.0 Screw 40 Implanted:Qty: 1 on 01/14/2024 by Jace Muller MD at [facility] Left: Ankle Ar[employer] Inc AR-8770-40H / / Explanted Type Area Locum Tenens Device Identifier Shelf Expiration Date Model / Serial / Lot Cortical Screw 3.5mm Explanted:Qty: 1 on 10/25/[address] [facility] Right: Ankle [employer] [id number] / / 4.0mm Screw Explanted:Qty: 1 on 08/10/2023 at [facility] Left: Ankle AR-8940-32 / / Screw 3mm 20mm T10 Ft Slf-Tap Lck Strdr Explanted:Qty: 1 on 08/10/2023 by Felipe Bourne MD at [facility] Left: Ankle Ar[employer] Inc AR-8933L-20 / / Screw 3mm 18mm Va Slf-Tap Sld Lck Ankl Explanted:Qty: 1 on 08/10/2023 by Felipe Bourne MD at [facility] Left: Ankle [employer] AR-8933V-18 / / Wire K .062in 6in Fx 2 Troc Explanted:Qty: 2 on 08/10/2023 at [facility] Left: Ankle [employer] [id number] / / Screw 3.5mm 28mm T15 Ft Slf-Tap Sld Hxlb Implanted:Qty: 1 on 08/10/2023 by Jace Muller MD at [facility] Explanted:Qty: 1 on 01/14/2024 by Jace Muller MD at [facility] Left: Ankle Ar[employer] Inc AR-8935CL-2 8 / / Screw 3.5mm 26mm T15 Ft Slf-Tap Sld Hxlb Implanted:Qty: 1 on 08/10/2023 by Jace Muller MD at [facility] Explanted:Qty: 1 on 01/14/2024 by Jace Muller MD at [facility] Left: Ankle Ar[employer] Inc AR-8935CL-2 6 / / Plate Calc 7.5mm Stp Bone Implanted:Qty: 1 on 08/10/2023 by Jace Muller MD at [facility] Explanted:Qty: 1 on 01/14/2024 by Jace Muller MD at [facility] Left: Ankle [employer] [id number] / / 3.5mm Locking Screw Implanted:Qty: 1 on 08/10/2023 by Jace Muller MD at [facility] Explanted:Qty: 1 on 01/14/2024 by Jace Muller MD at [facility] Left: Ankle [id number] 4 / / Description:3.0-4.0 [employer] Screw 3mm 16mm Va Slf-Tap Sld Lck Ankl Implanted:Qty: 1 on 08/10/2023 by Felipe Bourne MD at [facility] Explanted:Qty: 1 on 01/14/2024 by Jace Muller MD at [facility] Left: Ankle [employer] [id number] / / Screw 3mm 20mm Va Slf-Tap Sld Lck Ankl Implanted:Qty: 1 on 08/10/2023 by Felipe Bourne MD at [facility] Explanted:Qty: 1 on 01/14/2024 by Jace Muller MD at [facility] Left: Ankle [employer] [id number] / / Procedures Procedure Name Priority Date/Time Associated Diagnosis Comments URINALYSIS W/MICROSCOPIC REFLEX TO CULTURE Routine 09/17/2024 12:11 PM ASSOCIATE DOCTOR Positive double stranded 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 PROTEIN CREATININE RATIO URINE RANDOM PNL Routine 09/17/2024 12:11 PM ASSOCIATE DOCTOR Positive double stranded 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 CULTURE URINE Routine 09/17/2024 12:11 PM ASSOCIATE DOCTOR Positive double stranded 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 DNA ANTIBODY DS CRITHIDIA TITER Routine 09/17/2024 12:09 PM ASSOCIATE DOCTOR Positive double stranded 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 COMPREHENSIVE METABOLIC PANEL Routine 09/17/2024 12:09 PM ASSOCIATE DOCTOR Positive double stranded 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 CBC W AUTO DIFFERENTIAL Routine 09/17/2024 12:09 PM ASSOCIATE DOCTOR Positive double stranded 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 DNA ANTIBODY DOUBLE STRANDED Routine 09/17/2024 12:09 PM ASSOCIATE DOCTOR Positive double stranded 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 ANTIBODY + HIV P24 AG PANEL AM Draw 10/12/2017 4:43 AM ASSOCIATE DOCTOR HEPATITIS C ANTIBODY Routine 12/27/2015 5:08 PM CDT from Last 3 Months or Most Recently Relevant to Health Maintenance Results * (ABNORMAL) URINALYSIS W/MICROSCOPIC REFLEX TO CULTURE (09/17/2024 12:11 PM ASSOCIATE DOCTOR) Color UA Delilah(A) Straw, Yellow 09/17/2024 12:45 PM ASSOCIATE DOCTOR [facility] Clarity UA Slt Cloudy(A) Clear 09/17/2024 12:45 PM ASSOCIATE DOCTOR [facility] Specific [place] UA 1.032(H) 1.005 - 1.030 09/17/2024 12:45 PM [facility] pH UA 5.0 5.0 - 8.0 pH 09/17/2024 12:45 PM [facility] Protein UA Negative Negative 09/17/2024 12:45 PM ASSOCIATE DOCTOR [facility] Glucose UA Negative Negative 09/17/2024 12:45 PM ASSOCIATE DOCTOR [facility] Ketone UA Negative Negative 09/17/2024 12:45 PM ASSOCIATE DOCTOR [facility] Bilirubin UA Negative Negative 09/17/2024 12:45 PM ASSOCIATE DOCTOR [facility] Blood UA Negative Negative 09/17/2024 12:45 PM [facility] Nitrite UA Negative Negative 09/17/2024 12:45 PM [facility] Leukocyte Esterase 1+(A) Negative 09/17/2024 12:45 PM ASSOCIATE DOCTOR [facility] Urobilinogen UA Negative Negative mg/dL 09/17/2024 12:45 PM ASSOCIATE DOCTOR [facility] RBC UA 3-5 None Seen, 0-2, 3-5 /HPF 09/17/2024 12:45 PM [facility] WBC UA 11-20(A) None Seen, 0-5 /HPF 09/17/2024 12:45 PM [facility] Bacteria UA Trace(A) None /HPF 09/17/2024 12:45 PM [facility] Squamous Epithelial Cells UA >20(A) None Seen, 0-2, 3-5 /HPF 09/17/2024 12:45 PM [facility] Mucus UA 4+ /LPF 09/17/2024 12:45 PM [facility] Hyaline Casts UA 6-10(A) None Seen, 0-2 /LPF 09/17/2024 12:45 PM [facility] Urine URINE SPECIMEN OBTAINED BY CLEAN CATCH PROCEDURE / Unknown Collection / Unknown 09/17/2024 12:11 PM ASSOCIATE DOCTOR 09/17/2024 12:[address] [facility] - 09/17/2024 12:45 PM ASSOCIATE DOCTOR Lab Status, Culture Reflex Indicated. Ev Lowery MD LAB - URINALYSIS ORD ERABLES [facility] [address] [place] [address], [facility] [phone] * (ABNORMAL) CULTURE URINE (09/17/2024 12:11 PM ASSOCIATE DOCTOR) Culture Urine 50,000-100,000 CFU/mL Streptococcus agalactiae (Group B)(A) 09/19/2024 2:45 AM ASSOCIATE DOCTOR [facility] Culture Urine <10,000 CFU/mL urogenital isabell 09/19/2024 2:45 AM ASSOCIATE DOCTOR [facility] Urine URINE SPECIMEN OBTAINED BY CLEAN CATCH PROCEDURE / Unknown Collection / Unknown 09/17/2024 12:11 PM ASSOCIATE DOCTOR 09/17/2024 12:45 PM ASSOCIATE DOCTOR Narrative [facility] - 09/19/2024 2:45 AM ASSOCIATE DOCTOR Susceptibility testing of penicillin, other beta-lactam antibiotics, and vancomycin is not necessary for beta-hemolytic streptococci groups A,B,C and G because resistant strains have not been recognized. Ev Lowery MD LAB - MICROBIOLOGY O RDERABLES [facility] [address] [place] [address], [facility] [phone] * PROTEIN CREATININE RATIO URINE RANDOM PNL (09/17/2024 12:11 PM ASSOCIATE DOCTOR) Pathologist [facility] Protein Urine 28 Not Established mg/dL 09/17/2024 1:06 PM ASSOCIATE DOCTOR [facility] Creatinine Urine 373.79 Not Established mg/dL 09/17/2024 1:06 PM ASSOCIATE DOCTOR [facility] Protein/Creati nine Ratio Urine 0.07 <0.10 09/17/2024 1:06 PM ASSOCIATE DOCTOR [facility] Urine URINE SPECIMEN OBTAINED BY CLEAN CATCH PROCEDURE / Unknown Collection / Unknown 09/17/2024 12:11 PM ASSOCIATE DOCTOR 09/17/2024 12:24 PM ASSOCIATE DOCTOR Ev Lowery MD LAB - URINE CHEMISTR Y ORDERABLES Performing Organization Address City/[facility]/ZIP Co de Phone Number [facility] [address] [place] [address], [facility] [phone] * DNA ANTIBODY DS CRITHIDIA TITER (09/17/2024 12:09 PM ASSOCIATE DOCTOR) dsDNA Antibody IgG <1:10 <1:10 2024 6:12 AM ASSOCIATE DOCTOR [facility] ([facility]) Comment: INTERPRETIVE INFORMATION: Double-Stranded DNA (dsDNA) Antibody, IgG by IFA (using Crithidia luciliae) Positivity for anti-double stranded DNA (anti-dsDNA) IgG antibody is a diagnostic criterion of systemic lupus erythematosus (SLE). The presence of the anti-dsDNA IgG antibody is identified by IFA titer (Crithidia luciliae indirect fluorescent test [AYO'). AYO is highly specific for SLE with a sensitivity of 50-60 percent. Some patients with early or inactive SLE may be positive for anti-dsDNA IgG by JOAQUÍN but negative by AYO. If the AYO result is negative but the patient has a positive JOAQUÍN and clinical suspicion remains, consider antinuclear antibody (JENNIFER) testing by IFA. Additional information and recommendations for testing may be found at [email or web address]. Performed By: [facility] [address] [place] [address] Therapeutic Support Staff: Bogdan Garcia MD, PhD CLIA Number: [id number] Blood BLOOD SPECIMEN / Unknown Lab Venipuncture / Unknown 09/17/2024 12:09 PM ASSOCIATE DOCTOR 09/17/2024 12:24 PM ASSOCIATE DOCTOR Ev Lowery MD LAB - SEROLOGY ORDER [place]USANNE [employer] [facility]) [address] [place] [phone], [facility] * DNA ANTIBODY DOUBLE STRANDED (09/17/2024 12:09 PM ASSOCIATE DOCTOR) Pathologist [facility] dsDNA Antibody 4 0 - 24 IU 09/19/2024 8:29 PM ASSOCIATE DOCTOR [facility] [employer] ([facility]) Comment: INTERPRETIVE INFORMATION: Double-Stranded DNA (dsDNA) Ab IgG JOAQUÍN ??24 IU or less........Negative ??25-30 IU.............Borderline Positive ??30-60 IU.............Low Positive ??60-200 IU............Positive ??201 IU or greater....Strong Positive Positivity for anti-double stranded DNA (anti-dsDNA) IgG antibody is a diagnostic criterion of systemic lupus erythematosus (SLE). Specimens are initially screened by enzyme-linked immunosorbent assay (JOAQUÍN). If ordered as reflex ([id number]), positive JOAQUÍN results (>24 IU) will be reflexed to a highly specific IFA titer (Crithidia luciliae indirect fluorescent test [AYO') for confirmation. Some patients with early or inactive SLE may be positive for anti-dsDNA IgG by JOAQUÍN but negative by AYO. If the patient is negative by AYO but positive by JOAQUÍN and clinical suspicion remains, consider antinuclear antibody (JENNIFER) testing by IFA. Additional information and recommendations for testing may be found at https://[email or web address]/[email or web address]-[email or web address]. Performed By: [facility] [employer] [address] [place] [address] Therapeutic Support Staff: Bogdan Garcia MD, PhD CLIA Number: [id number] Blood BLOOD SPECIMEN / Unknown Lab Venipuncture / Unknown 09/17/2024 12:09 PM ASSOCIATE DOCTOR 09/17/2024 12:24 PM ASSOCIATE DOCTOR Ev Lowery MD LAB - HEMATOLOGY ORD ERABLES [facility] ([facility]) [address] [place] [address], [facility] * (ABNORMAL) CBC WITH DIFFERENTIAL (09/17/2024 12:09 PM ASSOCIATE DOCTOR) WBC 4.9 4.0 - 10.7 x10E9/L 09/17/2024 12:35 PM [facility] RBC Count 4.85 3.90 - 5.20 x10E12/L 09/17/2024 12:35 PM [facility] Hemoglobin 13.2 11.9 - 15.8 g/dL 09/17/2024 12:35 PM [facility] Hematocrit 40.4 34.8 - 46.1 % 09/17/2024 12:35 PM [facility] MCV 83.3 80.0 - 98.0 fL 09/17/2024 12:35 PM [facility] MCH 27.2 26.7 - 33.6 pg 09/17/2024 12:35 PM [facility] MCHC 32.7 31.7 - 36.3 g/dL 09/17/2024 12:35 PM [facility] RDW-CV 15.5(H) 11.3 - 14.8 % 09/17/2024 12:35 PM [facility] Platelet Count 291 150 - 420 x10E9/L 09/17/2024 12:35 PM [facility] MPV 8.6 7.8 - 11.4 fL 09/17/2024 12:35 PM [facility] Neutrophil % 54.0 41.0 - 74.0 % 09/17/2024 12:35 PM [facility] Lymphocyte % 35.9 17.0 - 47.0 % 09/17/2024 12:35 PM [facility] Monocyte % 6.5 3.0 - 11.0 % 09/17/2024 12:35 PM [facility] Eosinophil % 2.8 0.0 - 7.0 % 09/17/2024 12:35 PM [facility] Basophil % 0.4 0.0 - 1.6 % 09/17/2024 12:35 PM [facility] Immature Granulocytes % 0.4 0.0 - 1.0 % 09/17/2024 12:35 PM [facility] Neutrophil Absolute 2.66 1.60 - 7.50 x10E9/L 09/17/2024 12:35 PM [facility] Lymphocyte Absolute 1.77 1.00 - 4.40 x10E9/L 09/17/2024 12:35 PM [facility] Monocyte Absolute 0.32 0.15 - 1.00 x10E9/L 09/17/2024 12:35 PM [facility] Eosinophil Absolute 0.14 0.00 - 0.60 x10E9/L 09/17/2024 12:35 PM [facility] Basophil Absolute 0.02 0.00 - 0.13 x10E9/L 09/17/2024 12:35 PM [facility] Blood BLOOD SPECIMEN / Unknown Lab Venipuncture / Unknown 09/17/2024 12:09 PM ASSOCIATE DOCTOR 09/17/2024 12:29 PM [facility] Ev Lowery MD LAB - HEMATOLOGY ORD ERABLES [facility] [address] [place] [phone], [facility] [phone] * (ABNORMAL) COMPREHENSIVE METABOLIC PANEL (09/17/2024 12:09 PM ASSOCIATE DOCTOR) BUN 17 7 - 26 mg/dL 09/17/2024 1:09 PM [facility] Creatinine 1.03(H) 0.56 - 0.96 mg/dL 09/17/2024 1:09 PM [facility] Sodium 139 136 - 145 mmol/L 09/17/2024 1:09 PM [facility] Potassium 3.9 3.5 - 4.5 mmol/L 09/17/2024 1:09 PM [facility] Chloride 103 98 - 107 mmol/L 09/17/2024 1:09 PM [facility] CO2 24 22 - 29 mmol/L 09/17/2024 1:09 PM [facility] Glucose 98 70 - 99 mg/dL 09/17/2024 1:09 PM [facility] Calcium 9.4 8.4 - 10.2 mg/dL 09/17/2024 1:09 PM [facility] Protein Total 8.2 6.0 - 8.3 g/dL 09/17/2024 1:09 PM [facility] Albumin 4.1 3.4 - 5.0 g/dL 09/17/2024 1:09 PM [facility] Bilirubin Total 0.4 0.2 - 1.2 mg/dL 09/17/2024 1:09 PM [facility] Alkaline Phosphatase 82 40 - 150 U/L 09/17/2024 1:09 PM [facility] ALT 30 5 - 55 U/L 09/17/2024 1:09 PM [facility] AST 32 5 - 34 U/L 09/17/2024 1:09 PM [facility] Anion Gap 12 6 - 16 09/17/2024 1:09 PM [facility] BUN/Creatinine Ratio 17 7 - 23 09/17/2024 1:09 PM [facility] Osmolality Calculated 290 275 - 295 mOsm/kg 09/17/2024 1:09 PM [facility] Albumin/Globulin Ratio 1.0(L) 1.1 - 2.3 09/17/2024 1:09 PM [facility] eGFR by CKD-EPI 64(L) >=90 mL/min/1.7 3 m2 09/17/2024 1:09 PM [facility] Blood BLOOD SPECIMEN / Unknown Lab Venipuncture / Unknown 09/17/2024 12:09 PM ASSOCIATE DOCTOR 09/17/2024 12:29 PM ASSOCIATE DOCTOR Ev Lowery MD LAB - CHEMISTRY [place] [facility] [address] [place] [address], [facility] [phone] * HIV-1 HIV-2 ANTIBODY + HIV P24 AG PANEL (10/12/2017 4:43 AM ASSOCIATE DOCTOR) Pathologist [facility] HIV1/2 Ab + P24 Ag Non Reactive Non Reactive 10/12/2017 11:04 AM ASSOCIATE DOCTOR [facility] Blood BLOOD SPECIMEN / Unknown Venipuncture / Unknown 10/12/2017 4:43 AM ASSOCIATE DOCTOR 10/12/2017 4:57 AM ASSOCIATE DOCTOR Narrative [facility] - 10/12/2017 11:04 AM ASSOCIATE DOCTOR No Laboratory evidence of HIV infection. Singh Moyer MD LAB - CHEMISTRY ORDERABLES Performing Organization Address [facility] Co de Phone Number [facility] [address] [place] [address] * HEPATITIS C ANTIBODY (12/27/2015 5:08 PM CDT) Pathologist [facility] Hepatitis C Antibody Non-react [facility] Comment: Hepatitis C Antibody screen indicates no serologic evidence of past or current infection with Hepatitis C Virus. Patients with unexplained liver disease who are immunocompromised or suspected of having acute Hepatitis C infection may benefit from Nucleic Acid Test (ANNA) for Hepatitis C Viral RNA to confirm Hepatitis C status. Blood specimen (specimen) BLOOD SPECIMEN / Unknown 12/27/2015 5:08 PM CDT 12/27/2015 6:07 PM CDT Citlaly Avalos MD LAB - CHEMISTRY [place] [facility] [address] [place] [address], [facility] [phone] from Last 3 Months or Most Recently Relevant to Health Maintenance Advance Directives * Full Code (Latest Code Status on File) Date Activated Date Inactivated Comments 01/14/2024 11:06 AM 01/17/2024 5:36 PM * Full Code Date Activated Date Inactivated Comments 07/07/2022 6:06 AM 07/10/2022 6:44 PM * Full Code Date Activated Date Inactivated Comments 06/14/2022 7:39 PM 06/20/2022 3:24 PM * Full Code Date Activated Date Inactivated Comments 06/14/2022 12:21 AM 06/14/2022 7:39 PM * Full Code Date Activated Date Inactivated Comments 04/26/2022 8:14 PM 04/27/2022 6:26 PM Care Teams [employer] Relationship Specialty Start Date End Date Key Tolliver MD [address] [place], [place] [phone] PCP - General 10/22/18 Pablo Liriano MD [address] [place], [place] [phone] Orthopedic Surgery 05/22/19 Evan Willis MD [address] [place] [phone] Medical Oncologist Medical Oncology 11/02/21 Charles Kingston MD [address] [place] [phone] Outsole Compressor Cardiology 11/03/21
--- OUTSIDE RECORDS SUMMARY | 2024-10-01 01:29 | XMS_ITS | Clinical Summary ---
Author Organization [facility] Address [address] [place] [address] Care Team Providers Care Chief Nursing Executive Name Role Phone Key Tolliver MD Primary Care Provider Pablo Liriano MD Unavailable Evan Willis MD Unavailable [phone] Charles Kingston MD Unavailable Source Comments [facility],non-owned Affiliates and Associated Physician Practices is amultiple site organization consisting of ambulatory clinics and hospital sitesin [place], [place], [place] and [place]. This disclosure is being madepursuant to the Care Everywhere program and may not contain all information available regarding this patient. Last updated 18.[facility] Allergies Active Allergy Reactions Criticality Noted Date [...] Port-a-Cath 2021 Pyogenic arthritis of left s ulder region, due to unspecified organism 06/13/2022 Postoperative visit 01/27/2022 05/03/2023 Acquired pes planus of both feet 12/01/2021 05/03/2023 Orthopedic hardware present 12/01/202104/05 Foot pain 12/01/2021 05/03/2023 Pain of both sacroiliac joints 06/21/2021 0 05/03/2023 Pain of right sacroiliac joint 06/21/2021 0 05/03/2023 Infectious disease contact 04/27/2021 Other viral disease contact 04/27/202104/05 Contact with and (suspected) exposure to other viral communicable diseases 04/27/2021 08/09/2023 Trigger finger of left hand 04/19/202104/05 Family history of stroke 03/30/2021 Family history of hypertension 03/30/2021 Family history of hyperlipidemia 03/30/2021 Atherosclerotic heart diseas e of [place] coronary artery without angina pectoris 03/30/2021 Chest [...] 05/31/2023 UTI (urinary tract infection) 02/02/2016 04/08/2020 Encounters Date Type Department Care Team Description 09/17/2024 11:19 AM DIESEL ENGINE I PIPE FITTER - 09/17/2024 11:59 PM DIESEL ENGINE I PIPE FITTER Hospital Encounter [facility]RAW [facility] [address] [place] [phone] Discharge Disposition: Home or Self Care 09/17/2024 11:00 AM DIESEL ENGINE I PIPE FITTER Office Visit [facility] - Rheumatology [address] [place] [address], [facility] [place] [phone] Ev Lowery MD Positive double stranded 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 (Primary Dx); Primary osteoarthritis of both hands; Positive JENNIFER (antinuclear antibody); Polyarthralgia 09/17/2024 Travel 09/16/2024 Travel 07/18/2024 Refill [facility] - Orthopedics [address] [place] [phone] Deni Chavez MD Refill Request 07/16/2024 Orders Only [facility] - Orthopedic Surgery [address] [facility], [facility] [address] [place] [address] Zechariah Soto LPN 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 (AF LURIA, FLUZONE TRIVALENT; 6MO+) (IIV3) 07/04/2019 FLU VACCINE TRI IIV3 SPLIT IM (FLUVIRIN) 014 FLU VACCINE TRI IIV3 SPLIT PF IM (FLUVIRIN) 07/04 INFLUENZA VACCINE 06/17/2020 INFLUENZA VACCINE, QUADR. (F LUZONE; FLULAVAL; FLUARIX; AFLURIA QUADRIVALENT; 6MO+), 0.5 ML (IIV4) 05/15/2018 TDAP (7yrs+) 09/11/2017 Family History Medical History Relation Name Comments Hypertension Father CAD (Coronary Artery Disease) Maternal Aunt Diabetes - Type 2 Maternal Aunt Sleep Disorder - Other Maternal Aunt None Known Mother Relation Name Status Comments Father Maternal Aunt Mother Social History Tobacco Use Types Packs/Day Years [...] Comments Blood Pressure 135/91 09/17/2024 11:02 AM DIESEL ENGINE I PIPE FITTER Pulse 82 09/17/2024 10:56 AM DIESEL ENGINE I PIPE FITTER Temperature 36.3 ??C (97.3 ??F) 09/17/2024 10:[address] Respiratory Rate 14 01/17/2024 11:17 AM CDT Oxygen Saturation 95% 03/18/2024 3:10 PM CDT Inhaled Oxygen Concentration 21% 03/21/2019 3 :09 AM CDT Weight 105.7 kg (233 lb) 09/17/2024 10:56 AM DIESEL ENGINE I PIPE FITTER Height 165.1 cm (5' 5 ) 09/17/2024 10:56 AM DIESEL ENGINE I PIPE FITTER Body Mass Index 38.77 09/17/2024 10:56 AM DIESEL ENGINE I PIPE FITTER Plan of Treatment Upcoming Encounters Date Type Department Care Team (Late st Contact Info) Description 03/11/2025 11:20 AM CDT Office Visit [facility] - Rheumatology [address] [place] [address], [place] [address] Ev Lowery MD [address] [place] [address] [place] [address] Health Maintenance Due Date Last Done Comments COLOGUARD (AGES 45-75) - COLON CA SCREENING [address] COLONOGRAPHY - COLON CA SCREENING 1969 FIT - COLON CA SCREENING 1969 FLEX SIG - COLON CA SCREENING 1969 PAP SMEAR 1969 HEPATITIS B VACCINE (1 of 3 - 19+ 3-dose series) 1988 PNEUMOCOCCAL VACCINE 50+ (1 of 2 - PCV) 1988 PNEUMOCOCCAL VACCINE (1 of 2 - PCV) 1988 MAMMOGRAM 05/12/2015 05/12/2013, 05/07/2013 ZOSTER VACCINE (1 of 2) 2019 COVID-19 VACCINE (1 - 2023- season) 2024 INFLUENZA VACCINE (#1) 2024 0, 07/04/2019, 05/15/2018, Additional history exists DEPRESSION SCREENING 09/03/2024 07/18/2022, 07/06/2022, 06/27/2022, Additional history exists COLONOSCOPY - COLON CA SCREENING 01/01/2027 01/01/2017 Colorectal Cancer Screening 01/01/2027 DTAP/TDAP/TD VACCINES (2 - Td or Tdap) 09/11/2027 09/11/2017 SCREENING FOR DIABETES 09/17/2027 5, 07/30/2023, 07/08/2022, Additional history exists HEPATITIS C SCREENING Completed 12/27/2015 HIV SCREENING Completed 10/12/2017 HIB VACCINE Aged Out No longer eligi ble based on patient's age to complete this topic HPV VACCINE Aged Out No longer eligi ble based on patient's age to complete this topic MENINGOCOCCAL (Group B) VACCINE Aged Out No longer eligible based on patient's age to complete this topic MENINGOCOCCAL VACCINE Aged Out No leonel claudia eligible based on patient's age to complete this topic Goals Goal Patient Goal Type Associated Problems Recent Progress Patient-Stated? Author Mobility General Improving( 1:50 PM CDT) No Coreen Muñoz, RN Note: Expected end date: 12/01/2020 The goal is to maintain or improve your mobility at the optimum level for you. Interventions: Mobility General Worsening( 1:20 PM DIESEL ENGINE I PIPE FITTER) No Lilo Kaminski, DARRON Note: Expected end date: 11/17/2019 The goal is to maintain or improve your mobility at the optimum level for you. Interventions: PAIN General No Shira Sun Note: Expected end date: 01/18/2020 Patient's pain/discomfort is manageable. Interventions: Medical Devices Implanted Type Area Shade Cloth Finisher Device Identifier Shelf Expiration Date Model / Serial / Lot Cmnt Bone Plc R+Ggnta 40gm Lf Grn Implanted:Qty: 1 on 10/11/2017 by Rajendra Ingram MD at [facility] [place] Left: Knee [employer] 12/01/2020 [id number] / / [id number] Description:12 BEADS IN LEFT KNEE ON VICRYL SUTURE 21 BEADS IN RIGHT KNEE ON VICRYL SUTURE Brng [id number] Vngrd Arcm Kn Ant Stab Implanted:Qty: 1 on 10/16/2017 by Rajendra Ingram MD at [facility] [place] Left: Knee [employer] 06/09/2022 [id number] / / Brng [id number] Vngrd Arcm Kn Ant Stab Implanted:Qty: 1 on 10/16/2017 by Rajendra Ingram MD at [facility] [place] Right: Knee [employer] 07/25/2022 [id number] / / Cmpnt Tibtry Bmt As Mx Kn Intlk Prm Lck Implanted:Qty: 1 on 10/16/2017 by Rajendra Ingram MD at [facility] [place] Left: Knee [employer] 07/11/2027 [id number] / / Cmpnt Tibtry Bmt As Mx Kn Intlk Prm Lck Implanted:Qty: 1 on 10/16/2017 by Rajendra Ingram MD at [facility] [place] Right: Knee [employer] 06/17/2027 [id number] / / Kam Kn Tot Rev 50% Of 2014 Implanted:Qty: 1 on 10/16/2017 by Rajendra Ingram MD at [facility] Wan [employer] KR2 KNEE TO T REV WAN BILL ONLY / / Cmpnt Glnd 38mm Std Glenosphere Sckt Geovany Implanted:Qty: 1 on 03/19/2019 by Pablo Liriano MD at [facility] [place] Left: Shoulder [employer] 11/01/2023 [id number] / / Description:DXTND GLENOSPHER E STD [id number]--35/22 LG Dxtend Mod Cent Epi 1 Ocampo Implanted:Qty: 1 on 03/19/2019 by Pablo Liriano MD at [facility] [place] Left: Shoulder 01/01/2024 1307-20-101 / / Description:delta xtend mudu lar centered epiphysis Global Unite Std Stem Sz 8 Implanted:Qty: 1 on 03/19/2019 by Pablo Liriano MD at [facility] [place] Left: Shoulder 08/02/2027 1100-08-100 / / Description:global unite por ocoat standard stem Dxtend Stand Pe Cup D38 +3mm Implanted:Qty: 1 on 03/19/2019 by Pablo Liriano MD at [facility] [place] Left: Shoulder 1307-38-203 / / [id number] Description:Delta xtend lyudmila ral PE cup standard Sys Shld Tot Arthroplst Rev Implanted:Qty: 1 on 03/19/2019 by Pablo Liriano MD at [facility] [place] Left: Shoulder [employer] S4 DEPUY / / Cmpnt Glnd 27mm Std Geovany Xtend Metaglene Implanted:Qty: 1 on 03/19/2019 by Pablo Liriano MD at [facility] [place] Left: Shoulder [employer] 12/02/2023 1307-60-000 / / Description:DXTEND METAGLENE Dxtend Screw Lock D4.5x36mm Implanted:Qty: 1 on 03/19/2019 by Pablo Liriano MD at [facility] [place] Left: Shoulder 12/02/2023 1307-90-036 / / Description:PACK ACL TISSUE FX CSTM SRG PRC DISP Screw 4.5mm 30mm Shldr Glnd Lck Geovany Implanted:Qty: 1 on 03/19/2019 by Pablo Liriano MD at [facility] [place] Left: Shoulder [employer] 01/01/2024 1307-90-030 / / Description:DXTEND SCREW LOC K D4.6S44SK--99/22 LG 6.5mm Canellous Screw Implanted:Qty: 1 on 10/25/2020 by Anjelica Gutierres MD at [facility] [place] Right: Ankle [employer] 486-55-01 / / 6.5mm Cancellous Screw Implanted:Qty: 1 on 10/25/2020 by Anjelica Gutierres MD at [facility] [place] Right: Ankle [employer] / / Cortical Screw 2.7mm Implanted:Qty: 1 on 10/25/2020 by Anjelica Gutierres MD at [facility] [place] Right: Ankle [employer] 70-4462-178-35 / / Screw 3.5mm 32mm 2.5mm Slf-Tap Sm Hex Implanted:Qty: 2 on 10/25/2020 by Anjelica Gutierres MD at [facility] [place] Right: Ankle [employer] [id number] / / Screw 3.5mm 45mm 2.5mm Slf-Tap Sm Hex Implanted:Qty: 1 on 10/25/2020 by Anjelica Gutierres MD at [facility] [place] Right: Ankle [employer] [id number] / / Graft Bone Alfs + Dbm 1cc Algrf Pst Implanted:Qty: 1 on 10/25/2020 by Anjelica Gutierres MD at [facility] [place] Right: Ankle [employer] 04/08/2021 [id number] / / [id number] Bsplt Glnd 30mm Rsp Shldr P2 Strl Lf Implanted:Qty: 1 on 04/26/2022 by Mariano Guzmán MD at [facility] Left: Shoulder [employer] 03/23/2028 508-32-204 / / [id number] Screw 5mm 14mm Shldr Lck Rsp Glnd Bsplt Implanted:Qty: 1 on 04/26/2022 by aMriano Guzmán MD at [facility] Left: Shoulder [employer] 03/25/2028 506-03-114 / / [id number] Screw 5mm 14mm Shldr Lck Rsp Glnd Bsplt Implanted:Qty: 1 on 04/26/2022 by Mariano Guzmán MD at [facility] Left: Shoulder [employer] 04/05/2028 506-03-114 / / [id number] Screw 5mm 30mm Shldr Lck Rsp Glnd Bsplt Implanted:Qty: 1 on 04/26/2022 by Mariano Guzmán MD at [facility] Left: Shoulder [employer] 03/13/2028 506-03-130 / / [id number] Screw 5mm 30mm Shldr Lck Rsp Glnd Bsplt Implanted:Qty: 1 on 04/26/2022 by Mariano Guzmán MD at [facility] Left: Shoulder [employer] 03/18/2028 506-03-130 / / [id number] Cmnt Bone Djo Srg Cblt 40gm Hvisc Strl Implanted:Qty: 1 on 04/26/2022 by Mariano Guzmán MD at [facility] Left: Shoulder [employer] 03/16/2023 600-15-000 / / [id number] Head Glnd 32mm Rsp Ntrl Shldr Rtn Screw Implanted:Qty: 1 on 04/26/2022 by Mariano Guzmán MD at [facility] Left: Shoulder [employer] 03/22/2028 508-32-101 / / [id number] Ins Sckt Rsp Djo Srg +4mm Hum Hxe+ Implanted:Qty: 1 on 04/26/2022 by Mariano Guzmán MD at [facility] Left: Shoulder [employer] 12/26/2026 509-01-432 / / [id number] Humeral Stem Reverse Size 8mm X 108mm Implanted:Qty: 1 on 04/26/2022 by Mariano Guzmán MD at [facility] Left: Shoulder [employer] 10/05/2027 530-08-108 / / [id number] Rstrc Cmnt Cl Ct 10mm Implanted:Qty: 1 on 04/26/2022 by Mariano Guzmán MD at [facility] Left: Shoulder [employer] 07/03/2024 415-00-100 / / [id number] Rsp Humeral Socket Insert 32mm Semi-Constrain ed Implanted:Qty: 1 on 06/14/2022 by Mariano Guzmán MD at [facility] Left: Shoulder [employer] 08/12/2026 509-01-032 / / [id number] Spcr Hum Djo Srg Rsp +8mm Mnblck Strl Lf Implanted:Qty: 1 on 06/14/2022 by Mariano Guzmán MD at [facility] Left: Shoulder [employer] 04/12/2028 510-08-000 / / [id number] Head Glnd 32mm Rsp Ntrl Shldr Rtn Screw Implanted:Qty: 1 on 06/14/2022 by Mariano Guzmán MD at [facility] Left: Shoulder [employer] 05/17/2028 508-32-101 / / [id number] Screws Implanted:Qty: 1 on 08/10/2023 by Jace Muller MD at [facility] Left: Ankle AR-8935-32 / / Description:3.0-4.0 ARTHREX VENDOR TRAY Screw Implanted:Qty: 1 on 08/10/2023 by Jace Muller MD at [facility] Left: Ankle Ar[employer]rex Inc AR-8940-34 / / Description:3.0-4.0 ARTHREX TRAY Kit Bngf 3cc Aug Inj Implanted:Qty: 1 on 01/14/2024 by Jace Muller MD at [facility] Left: Ankle [employer] 08/30/2026 [id number] / / [id number] Graft Bone Ignite 2 Mini 4cc Pwr Mx - [id number] Implanted:Qty: 1 on 01/14/2024 by Jace Muller MD at [facility] Left: Ankle [employer] 07/19/2028 [id number] / [id number] / Allosync Pure 5cc Implanted:Qty: 1 on 01/14/2024 by Jace Muller MD at [facility] Left: Ankle [employer] Inc 08/20/2028 ABS / / [id number] 7.0 Screw 55 Implanted:Qty: 1 on 01/14/2024 by Jace Muller MD at [facility] Left: Ankle [employer] Inc AR-8770-5H / / 7.0 Screw 40 Implanted:Qty: 1 on 01/14/2024 by Jace Muller MD at [facility] Left: Ankle [employer] AR-8770-40H / / Explanted Type Area Shade Cloth Finisher Device Identifier Shelf Expiration Date Model / Serial / Lot Cortical Screw 3.5mm Explanted:Qty: 1 on 10/25/2020 at [facility] [place] Right: Ankle [employer] 00-4835-036 -01 / / 4.0mm Screw Explanted:Qty: 1 on 08/10/2023 at [facility] Left: Ankle AR-8940-32 / / Screw 3mm 20mm T10 Ft Slf-Tap Lck Strdr Explanted:Qty: 1 on 08/10/2023 by Felipe Bourne MD at [facility] Left: Ankle [employer] AR-8933L-20 / / Screw 3mm 18mm Va Slf-Tap Sld Lck Ankl Explanted:Qty: 1 on 08/10/2023 by Felipe Bourne MD at [facility] Left: Ankle [employer] AR-8933V-18 / / Wire K .062in 6in Fx 2 Troc Explanted:Qty: 2 on 08/10/2023 at [facility] Left: Ankle [employer] [id number] / / Screw 3.5mm 28mm T15 Ft Slf-Tap Sld Hxlb Implanted:Qty: 1 on 08/10/2023 by Jace Muller MD at [facility] Explanted:Qty: 1 on 01/14/2024 by Jace Muller MD at [facility] Left: Ankle [employer] AR-8935CL-2 8 / / Screw 3.5mm 26mm T15 Ft Slf-Tap Sld Hxlb Implanted:Qty: 1 on 08/10/2023 by Jace Muller MD at [facility] Explanted:Qty: 1 on 01/14/2024 by Jace Muller MD at [facility] Left: Ankle [employer] AR-8935CL-2 6 / / Plate Calc 7.5mm Stp Bone Implanted:Qty: 1 on 08/10/2023 by Jace Muller MD at [facility] Explanted:Qty: 1 on 01/14/2024 by Jace Muller MD at [facility] Left: Ankle [employer] AR-8949-075 / / 3.5mm Locking Screw Implanted:Qty: 1 on 08/10/2023 by Jace Muller MD at [facility] Explanted:Qty: 1 on 01/14/2024 by Jace Muller MD at [facility] Left: Ankle AR-8935CL-2 4 / / Description:3.0-4.0 ARTHREX VENDOR TRAY Screw 3mm 16mm Va Slf-Tap Sld Lck Ankl Implanted:Qty: 1 on 08/10/2023 by Felipe Bourne MD at [facility] Explanted:Qty: 1 on 01/14/2024 by Jace Muller MD at [facility] Left: Ankle [employer] AR-8933V-16 / / Screw 3mm 20mm Va Slf-Tap Sld Lck Ankl Implanted:Qty: 1 on 08/10/2023 by Felipe Bourne MD at [facility] Explanted:Qty: 1 on 01/14/2024 by Jace Muller MD at [facility] Left: Ankle [employer] AR-8933V-20 / / Procedures Procedure Name Priority Date/Time Associated Diagnosis Comments URINALYSIS W/MICROSCOPIC REFLEX TO CULTURE Routine 09/17/2024 12:11 PM DIESEL ENGINE I PIPE FITTER Positive double stranded 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 PROTEIN CREATININE RATIO URINE RANDOM PNL Routine 09/17/2024 12:11 PM DIESEL ENGINE I PIPE FITTER Positive double stranded 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 CULTURE URINE Routine 09/17/2024 12:11 PM DIESEL ENGINE I PIPE FITTER Positive double stranded 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 DNA ANTIBODY DS CRITHIDIA TITER Routine 09/17/2024 12:09 PM DIESEL ENGINE I PIPE FITTER Positive double stranded 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 COMPREHENSIVE METABOLIC PANEL Routine 09/17/2024 12:09 PM DIESEL ENGINE I PIPE FITTER Positive double stranded 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 CBC W AUTO DIFFERENTIAL Routine 09/17/2024 12:09 PM DIESEL ENGINE I PIPE FITTER Positive double stranded 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 DNA ANTIBODY DOUBLE STRANDED Routine 09/17/2024 12:09 PM DIESEL ENGINE I PIPE FITTER Positive double stranded 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 ANTIBODY + HIV P24 AG PANEL AM Draw 10/12/2017 4:43 AM DIESEL ENGINE I PIPE FITTER HEPATITIS C ANTIBODY Routine 12/27/2015 5:08 PM CDT from Last 3 Months or Most Recently Relevant to Health Maintenance Results * (ABNORMAL) URINALYSIS W/MICROSCOPIC REFLEX TO CULTURE (09/17/2024 12:11 PM DIESEL ENGINE I PIPE FITTER) Color UA Delilah(A) Straw, Yellow 09/17/2024 12:45 PM [facility] Clarity UA Slt Cloudy(A) Clear 09/17/2024 12:45 PM [facility] Specific [place] UA 1.032(H) 1.005 - 1.030 09/17/2024 12:45 PM [facility] pH UA 5.0 5.0 - 8.0 pH 09/17/2024 12:45 PM [facility] Protein UA Negative Negative 09/17/2024 12:45 PM [facility] Glucose UA Negative Negative 09/17/2024 12:45 PM [facility] Ketone UA Negative Negative 09/17/2024 12:45 PM [facility] Bilirubin UA Negative Negative 09/17/2024 12:45 PM [facility] Blood UA Negative Negative 09/17/2024 12:45 PM [facility] Nitrite UA Negative Negative 09/17/2024 12:45 PM [facility] Leukocyte Esterase 1+(A) Negative 09/17/2024 12:45 PM [facility] Urobilinogen UA Negative Negative mg/dL 09/17/2024 12:45 PM [facility] RBC UA 3-5 None Seen, 0-2, 3-5 /HPF 09/17/2024 12:45 PM [facility] WBC UA 11-20(A) None Seen, 0-5 /HPF 09/17/2024 12:45 PM [facility] Bacteria UA Trace(A) None /HPF 09/17/2024 12:45 PM [facility] Squamous Epithelial Cells UA >20(A) None Seen, 0-2, 3-5 /HPF 09/17/2024 12:45 PM [facility] Mucus UA 4+ /LPF 09/17/2024 12:45 PM DIESEL ENGINE I PIPE FITTER [facility] Hyaline Casts UA 6-10(A) None Seen, 0-2 /LPF 09/17/2024 12:45 PM DIESEL ENGINE I PIPE FITTER [facility] Urine URINE SPECIMEN OBTAINED BY CLEAN CATCH PROCEDURE / Unknown Collection / Unknown 09/17/2024 12:11 PM DIESEL ENGINE I PIPE FITTER 09/17/2024 12:24 PM DIESEL ENGINE I PIPE FITTER Narrative [facility] - 09/17/2024 12:45 PM DIESEL ENGINE I PIPE FITTER Lab Status, Culture Reflex Indicated. Ev Lowery MD LAB - URINALYSIS ORD ERABLES Performing Organization Address City/[facility]/ZIP Co de Phone Number [facility] [address] [place] [address], [facility] [phone] * (ABNORMAL) CULTURE URINE (09/17/2024 12:11 PM DIESEL ENGINE I PIPE FITTER) Culture Urine 50,000-100,000 CFU/mL Streptococcus agalactiae (Group B)(A) 09/19/2024 2:45 AM DIESEL ENGINE I PIPE FITTER [facility] Culture Urine <10,000 CFU/mL urogenital isabell 09/19/2024 2:45 AM DIESEL ENGINE I PIPE FITTER [facility] Urine URINE SPECIMEN OBTAINED BY CLEAN CATCH PROCEDURE / Unknown Collection / Unknown 09/17/2024 12:11 PM DIESEL ENGINE I PIPE FITTER 09/17/2024 12:45 PM DIESEL ENGINE I PIPE FITTER Narrative [facility] - 09/19/2024 2:45 AM DIESEL ENGINE I PIPE FITTER Susceptibility testing of penicillin, other beta-lactam antibiotics, and vancomycin is not necessary for beta-hemolytic streptococci groups A,B,C and G because resistant strains have not been recognized. Ev Lowery MD LAB - MICROBIOLOGY O RDERABLES [facility] [address] [place] [address], [facility] [phone] * PROTEIN CREATININE RATIO URINE RANDOM PNL (09/17/2024 12:11 PM DIESEL ENGINE I PIPE FITTER) Protein Urine 28 Not Established mg/dL 09/17/2024 1:06 PM DIESEL ENGINE I PIPE FITTER [facility] Creatinine Urine 373.79 Not Established mg/dL 09/17/2024 1:06 PM DIESEL ENGINE I PIPE FITTER [facility] Protein/Creati nine Ratio Urine 0.07 <0.10 09/17/2024 1:06 PM DIESEL ENGINE I PIPE FITTER [facility] Urine URINE SPECIMEN OBTAINED BY CLEAN CATCH PROCEDURE / Unknown Collection / Unknown 09/17/2024 12:11 PM DIESEL ENGINE I PIPE FITTER 09/17/2024 12:24 PM DIESEL ENGINE I PIPE FITTER Ev Lowery MD LAB - URINE CHEMISTR Y ORDERABLES [facility] [address] [place] [id number], [facility] [phone] * DNA ANTIBODY DS CRITHIDIA TITER (09/17/2024 12:09 PM DIESEL ENGINE I PIPE FITTER) dsDNA Antibody IgG <1:10 <1:10 2024 6:12 AM DIESEL ENGINE I PIPE FITTER [facility]) Comment: INTERPRETIVE INFORMATION: Double-Stranded DNA (dsDNA) [...] recommendations for testing may be found at [email or web address]. Performed By: [facility] [address] [place] [id number] Wet Finisher Wool: Bogdan Garcia MD, PhD CLIA Number: [id number] Blood BLOOD SPECIMEN / Unknown Lab Venipuncture / Unknown 09/17/2024 12:09 PM DIESEL ENGINE I PIPE FITTER 09/17/2024 12:24 PM DIESEL ENGINE I PIPE FITTER Ev Lowery MD LAB - SEROLOGY ORDER SUSANNE Performing Organization Address City/[facility] Co de Phone Number [facility]) [address] * DNA ANTIBODY DOUBLE STRANDED (09/17/2024 12:09 PM DIESEL ENGINE I PIPE FITTER) dsDNA Antibody 4 0 - 24 IU 09/19/2024 8:29 PM DIESEL ENGINE I PIPE FITTER [facility] ([facility]) Comment: INTERPRETIVE INFORMATION: Double-Stranded DNA (dsDNA) Ab IgG JOAQUÍN ??24 IU or less........Negative ??25-30 IU.............Borderline Positive ??30-60 IU.............Low Positive ??60-200 IU............Positive ??201 IU or greater....Strong Positive Positivity for anti-double stranded DNA (anti-dsDNA) IgG antibody is a diagnostic criterion of systemic lupus erythematosus (SLE). Specimens are initially screened by enzyme-linked immunosorbent assay (JOAQUÍN). If ordered as reflex ([id number]), positive JOAQUÍN results (>24 IU) will be [...] recommendations for testing may be found at [email or web address]. Performed By: [facility] [address] [place] [address] Wet Finisher Wool: Bogdan Garcia MD, PhD CLIA Number: [id number] Blood BLOOD SPECIMEN / Unknown Lab Venipuncture / Unknown 09/17/2024 12:09 PM DIESEL ENGINE I PIPE FITTER 09/17/2024 12:24 PM DIESEL ENGINE I PIPE FITTER Ev Lowery MD LAB - HEMATOLOGY ORD ERABLES [facility] ([facility]) [address] [place] [address] * (ABNORMAL) CBC WITH DIFFERENTIAL (09/17/2024 12:09 PM [facility]) [facility] WBC 4.9 4.0 - 10.7 x10E9/L 09/17/2024 12:35 PM [facility] RBC Count 4.85 3.90 - 5.20 x10E12/L 09/17/2024 12:35 PM [facility] Hemoglobin 13.2 11.9 - 15.8 g/dL 09/17/2024 12:35 PM [facility] Hematocrit 40.4 34.8 - 46.1 % 09/17/2024 12:35 PM [facility] MCV 83.3 80.0 - 98.0 fL 09/17/2024 12:35 PM [facility] MCH 27.2 26.7 - 33.6 pg 09/17/2024 12:35 PM [facility] MCHC 32.7 31.7 - 36.3 g/dL 09/17/2024 12:35 PM [facility] RDW-CV 15.5(H) 11.3 - 14.8 % 09/17/2024 12:35 PM [facility] Platelet Count 291 150 - 420 x10E9/L 09/17/2024 12:35 PM [facility] MPV 8.6 7.8 - 11.4 fL 09/17/2024 12:35 PM [facility] Neutrophil % 54.0 41.0 - 74.0 % 09/17/2024 12:35 PM [facility] Lymphocyte % 35.9 17.0 - 47.0 % 09/17/2024 12:35 PM [facility] Monocyte % 6.5 3.0 - 11.0 % 09/17/2024 12:35 PM [facility] Eosinophil % 2.8 0.0 - 7.0 % 09/17/2024 12:35 PM [facility] Basophil % 0.4 0.0 - 1.6 % 09/17/2024 12:35 PM [facility] Immature Granulocytes % 0.4 0.0 - 1.0 % 09/17/2024 12:35 PM [facility] Neutrophil Absolute 2.66 1.60 - 7.50 x10E9/L 09/17/2024 12:35 PM [facility] Lymphocyte Absolute 1.77 1.00 - 4.40 x10E9/L 09/17/2024 12:35 PM [facility] Monocyte Absolute 0.32 0.15 - 1.00 x10E9/L 09/17/2024 12:35 PM [facility] Eosinophil Absolute 0.14 0.00 - 0.60 x10E9/L 09/17/2024 12:35 PM [facility] Basophil Absolute 0.02 0.00 - 0.13 x10E9/L 09/17/2024 12:35 PM [facility] Blood BLOOD SPECIMEN / Unknown Lab Venipuncture / Unknown 09/17/2024 12:09 PM [employer] 09/17/2024 12:29 PM [facility] Ev Lowery MD LAB - HEMATOLOGY ORD ERABLES [facility] [address] [place] [address], [facility] [phone] * (ABNORMAL) COMPREHENSIVE METABOLIC PANEL (09/17/2024 12:09 PM [facility]) BUN 17 7 - 26 mg/dL 09/17/2024 1:09 PM [facility] Creatinine 1.03(H) 0.56 - 0.96 mg/dL 09/17/2024 1:09 PM [facility] Sodium 139 136 - 145 mmol/L 09/17/2024 1:09 PM [facility] Potassium 3.9 3.5 - 4.5 mmol/L 09/17/2024 1:09 PM [facility] Chloride 103 98 - 107 mmol/L 09/17/2024 1:09 PM [facility] CO2 24 22 - 29 mmol/L 09/17/2024 1:09 PM [facility] Glucose 98 70 - 99 mg/dL 09/17/2024 1:09 PM [facility] Calcium 9.4 8.4 - 10.2 mg/dL 09/17/2024 1:09 PM [facility] Protein Total 8.2 6.0 - 8.3 g/dL 09/17/2024 1:09 PM [facility] Albumin 4.1 3.4 - 5.0 g/dL 09/17/2024 1:09 PM [facility] Bilirubin Total 0.4 0.2 - 1.2 mg/dL 09/17/2024 1:09 PM [facility] Alkaline Phosphatase 82 40 - 150 U/L 09/17/2024 1:09 PM [facility] ALT 30 5 - 55 U/L 09/17/2024 1:09 PM [facility] AST 32 5 - 34 U/L 09/17/2024 1:09 PM [facility] Anion Gap 12 6 - 16 09/17/2024 1:09 PM [facility] BUN/Creatinine Ratio 17 7 - 23 09/17/2024 1:09 PM [facility] Osmolality Calculated 290 275 - 295 mOsm/kg 09/17/2024 1:09 PM [facility] Albumin/Globulin Ratio 1.0(L) 1.1 - 2.3 09/17/2024 1:09 PM [facility] eGFR by CKD-EPI 64(L) >=90 mL/min/1.7 3 m2 09/17/2024 1:09 PM [facility] Blood BLOOD SPECIMEN / Unknown Lab Venipuncture / Unknown 09/17/2024 12:09 PM [employer] 09/17/2024 12:29 PM [facility] Ev Lowery MD LAB - CHEMISTRY [facility] Organization Address City/State/ZIP Co de Phone Number [facility] [address] [place] [address], [facility] [phone] * HIV-1 HIV-2 ANTIBODY + HIV P24 AG PANEL (10/12/2017 4:43 AM [facility]) HIV1/2 Ab + P24 Ag Non Reactive Non Reactive 10/12/2017 11:04 AM [facility] Blood BLOOD SPECIMEN / Unknown Venipuncture / Unknown 10/12/2017 4:43 AM [employer] 10/12/2017 4:57 AM [employer] Narrative [facility] - 10/12/2017 11:04 AM [employer] No Laboratory evidence of HIV infection. Singh Moyer MD LAB - CHEMISTRY ORDERABLES [facility] [address] [place] [place] [address] * HEPATITIS C ANTIBODY (12/27/2015 5:08 PM CDT) Hepatitis C Antibody Non-react nieves Non-reac tive [facility] Comment: Hepatitis C Antibody screen indicates no [...] Avalos MD LAB - CHEMISTRY [place] [address] [phone] from Last 3 Months or Most Recently [...] 8:14 PM 04/27/2022 6:26 PM Care Teams Chief Nursing Executive Relationship Specialty Start Date End Date Key Tolliver MD [address] [place], [place] [phone] PCP - General 10/22/18 Pablo Liriano MD [address] [place] [address] [phone] Orthopedic Surgery 05/22/19 Evan Willis MD [address] [place] [address] [phone] Medical Oncologist Medical Oncology 11/02/21 Charles Kingston MD [address] [place] [phone] Home Health Registered Nurse Cardiology 11/03/21
--- OUTSIDE RECORDS SUMMARY | 2024-10-01 01:30 | XMS_ITS ---
Author Organization [facility] Address [address] 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 Past Plans No past plan information found. Radiation Treatments * No radiation treatments are documented for this patient in [facility]. Treatments may have been administered in another system. Lifetime Dose Tracking * Chemical Lifetime Dose Automatic Entry Manual Entr y Dose Length Product 810 mGy-cm 810 mGy-cm 0 mGy-cm Resolved Problems Problem Noted Date Diagnosed Date Resolved Date Diarrhea 05/03/2023 05/03/2023 05/31/2023 UTI (urinary tract infection) 02/02/2016 04/08/2020
--- OUTSIDE RECORDS SUMMARY | 2024-10-01 01:30 | XMS_ITS | Patient Health Summary ---
Author Organization [facility] Address [address] [place] [address] Care Team Providers Care Internal Sales Name Role Phone Key Tolliver MD Primary Care Provider Pablo Liriano MD Unavailable [phone] Evan Willis MD Unavailable [phone] Charles Kingston MD Unavailable Note from [facility],non-owned Affiliates and Associated Physician Practices is amultiple site organization consisting of ambulatory clinics and hospital sitesin [place], [place], [place] and [place]. This disclosure is being madepursuant to the Care Everywhere program and may not contain all information available regarding this patient. Last updated 18.[facility] Allergies * Adhesive Sensitivity(Rash,Skin Reactions) -High Criticality * Hydromorphone(Itching) -Medium Criticality,Inactive * Latex(Rash) -Medium Criticality,Inactive * Latex(Unknown),Inactive * Morphine(Itching) -Medium Criticality,Inactive Medications * Be aware that medications may not be up to date on this document. Alwaysverify current medications with the patient. * Venlafaxine HCl (VENLAFAXINE ER 24HR) 225 MG tablet(Started 07/01/2019) Take 1 (one) tablet by mouth daily with breakfast 4 refills left * cyclobenzaprine (Flexeril) 10 MG tablet(Started 04/26/2022) TAKE 1 TABLET BY MOUTH TWICE DAILY NEEDED FOR MUSCLE SPASMS 1 refill by 04/26/2023 * ARIPiprazole (Abilify) 2 MG tablet Take by mouth once daily * hydrOXYzine HCl (Atarax) 50 MG tablet(Started 04/16/2023) Take 2 (two) tablets by mouth at bedtime * lisinopril (Prinivil; Zestril) 40 MG tablet Take 1 (one) tablet by mouth once daily * NIFEdipine CR 24hr (Adalat CC) 30 MG tablet Take 1 (one) tablet by mouth once daily * pantoprazole EC (Protonix) 40 MG tablet(Started 04/15/2023) Take 1 (one) tablet by mouth once daily * omeprazole (PriLOSEC) 40 MG capsule Take 1 (one) capsule by mouth 2 times daily * celecoxib (CeleBREX) 200 MG capsule(Started 03/19/2023) Take 1 (one) capsule by mouth once daily * methocarbamol (Robaxin) 750 MG tablet(Started 08/10/2023) Take 1 (one) tablet by mouth every 6 hours as needed for Muscle Spasms * anastrozole (Arimidex) 1 MG tablet(Started 07/17/2023) Take 1 (one) tablet by mouth once daily * busPIRone (Buspar) 15 MG tablet(Started 05/08/2023) Take 1 (one) tablet by mouth 3 times daily with meals * ferrous sulfate 325 (65 FE) MG tablet(Started 07/17/2023) Take 1 (one) tablet by mouth once daily * metoprolol succinate XL 24hr (Toprol XL) 200 MG tablet(Started 07/03/2022) metoprolol succinate 200 mg tablet extended release 24 hr * traZODone (Desyrel) 150 MG tablet(Started 07/18/2023) Take 1 (one) tablet by mouth at bedtime * docusate sodium (Colace) 100 MG capsule(Started 01/15/2024) Take 1 (one) capsule by mouth once daily * naloxone HCl (Narcan) 4 MG/0.1ML nasal spray CALL 911. SPR CONTENTS OF ONE SPRAYER (0.1ML) INTO ONE NOSTRIL. REPEAT IN 2-3 MIN IF SYMPTOMS OF OPIOID EMERGENCY PERSIST, ALTERNATE NOSTRILS * aspirin (Aspirin) 325 MG tablet(Started 02/20/2024) Take 1 (one) tablet by mouth once daily * ketoconazole (Nizoral) 2 % shampoo(Started 03/05/2024) Apply to wet hair, leave on for 3 minutes, then rinse; three times weekly. 30 days supply 5 refills by 03/05/2025 * ketoconazole (Nizoral) 2 % cream(Started 03/05/2024) Apply to face 1-2 times daily for rash. 30 days supply. 3 refills by 03/05/2025 * fluocinolone (Dermotic) 0.01 % otic oil(Started 03/05/2024) Apply to ears 1-2 times daily as needed for itching. 3 refills by 03/05/2025 * fluocinolone acetonide (Synalar) 0.01 % solution(Started 03/05/2024) Apply to scalp 1-2 times daily as needed for itching. 30 days supply. 3 refills by 03/05/2025 * buPROPion XL 24hr (Wellbutrin-XL) 150 MG tablet(Started 02/27/2024) Take 1 (one) tablet by mouth once daily * oxyCODONE, immediate release, (Roxicodone) 5 MG tablet(Started 03/21/2024) Take 1 (one) tablet by mouth every 6 hours as needed for Pain * ondansetron (Zofran) 8 MG tablet(Started 04/30/2024) Take 1 (one) tablet by mouth every 8 hours as needed for Nausea/Vomiting 1 refill by 04/30/2025 * meloxicam (Mobic) 15 MG tablet(Started 09/01/2024) TAKE 1 TABLET BY MOUTH DAILY * acetaminophen-codeine (Tylenol #3) 300-30 MG tablet(Started 06/13/2024) Take 1 (one) tablet by mouth every 6 hours as needed pain * famotidine (Pepcid) 20 MG tablet(Started 09/14/2024) Take 1 (one) tablet by mouth at bedtime * fish oil/omega-3 fatty acids (Promega;Cardi-Turton 3) 1000 MG capsule Take by mouth once daily Active Problems Problem Noted Date Diagnosed Date [...] hyperlipidemia 03/30/2021 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 (AFLURIA, FLUZONE TRIVALENT; 6MO+) (IIV3)(Given 07/04/2019) * FLU VACCINE TRI IIV3 SPLIT IM (FLUVIRIN)(Given 07/04/2014) * FLU VACCINE TRI IIV3 SPLIT PF IM (FLUVIRIN)(Given 07/20/2017) * INFLUENZA VACCINE(Given 06/17/2020) * INFLUENZA VACCINE, QUADR. (FLUZONE; FLULAVAL; FLUARIX; AFLURIA QUADRIVALENT; 6MO+), 0.5 ML (IIV4)(Given 05/15/2018) * TDAP (7yrs+)(Given 09/11/2017) Social History Tobacco Use Types Packs/Day Years [...] Comments Blood Pressure 135/91 09/17/2024 11:02 AM [facility] Pulse 82 09/17/2024 10:56 AM [facility] Temperature 36.3 ??C (97.3 ??F) 09/17/2024 10:[address] Respiratory Rate 14 01/17/2024 11:17 AM CDT Oxygen Saturation 95% 03/18/2024 3:10 PM CDT Inhaled Oxygen Concentration 21% 03/21/2019 3 :09 AM CDT Weight 105.7 kg (233 lb) 09/17/2024 10:56 AM [facility] Height 165.1 cm (5' 5 ) 09/17/2024 10:56 AM [facility] Body Mass Index 38.77 09/17/2024 10:56 AM [facility] Medical Devices Implanted Type Area Plastic Worker Device Identifier Shelf Expiration Date Model / Serial / Lot Cmnt Bone Plc R+Ggnta 40gm Lf Grn Implanted:Qty: 1 on 10/11/2017 by Rajendra Ingram MD at [facility] Left: Knee [employer] 12/01/2020 [id number] / / [id number] Description:12 BEADS IN LEFT KNEE ON VICRYL SUTURE 21 BEADS IN RIGHT KNEE ON VICRYL SUTURE Brng [id number] Vngrd Arcm Kn Ant Stab Implanted:Qty: 1 on 10/16/2017 by Rajendra Ingram MD at [facility] Left: Knee [employer] 06/09/2022 [id number] / / Brng [id number] Vngrd Arcm Kn Ant Stab Implanted:Qty: 1 on 10/16/2017 by Rajendra Ingram MD at [facility] Right: Knee [employer] 07/25/2022 [id number] / / Cmpnt Tibtry Bmt As Mx Kn Intlk Prm Lck Implanted:Qty: 1 on 10/16/2017 by Rajendra Ingram MD at [facility] Left: Knee [employer] 07/11/2027 [id number] / / Cmpnt Tibtry Bmt As Mx Kn Intlk Prm Lck Implanted:Qty: 1 on 10/16/2017 by Rajendra Ingram MD at [facility] Right: Knee [employer] 06/17/2027 [id number] / / Kam Kn Tot Rev 50% Of 2014 Implanted:Qty: 1 on 10/16/2017 by Rajendra Ingram MD at [facility] Wan [employer] [id number] KNEE TO T REV WAN BILL ONLY / / Cmpnt Glnd 38mm Std Glenosphere Sckt Geovany Implanted:Qty: 1 on 03/19/2019 by Pablo Liriano MD at [facility] Left: Shoulder [employer] 11/01/2023 [id number] / / Description:DXTND GLENOSPHER E STD N24LA--25/22 LG Dxtend Mod Cent Epi 1 Ocampo Implanted:Qty: 1 on 03/19/2019 by Pablo Liriano MD at [facility] Left: Shoulder 01/01/2024 1307-20-101 / / Description:delta xtend mudu lar centered epiphysis Global Unite Std Stem Sz 8 Implanted:Qty: 1 on 03/19/2019 by Pablo Liriano MD at [facility] Left: Shoulder 08/02/2027 1100-08-100 / / Description:global unite por ocoat standard stem Dxtend Stand Pe Cup D38 +3mm Implanted:Qty: 1 on 03/19/2019 by Pablo Liriano MD at [facility] Left: Shoulder 1307-38-203 / / [id number] Description:Delta xtend lyudmila ral PE cup standard Sys Shld Tot Arthroplst Rev Implanted:Qty: 1 on 03/19/2019 by Pablo Liriano MD at [facility] Left: Shoulder [employer] S4 DEPUY / / Cmpnt Glnd 27mm Std Geovany Xtend Metaglene Implanted:Qty: 1 on 03/19/2019 by Pablo Liriano MD at [facility] Left: Shoulder [employer] 12/02/2023 1307-60-000 / / Description:DXTEND METAGLENE Dxtend Screw Lock D4.5x36mm Implanted:Qty: 1 on 03/19/2019 by Pablo Liriano MD at [facility] Left: Shoulder 12/02/2023 1307-90-036 / / Description:PACK ACL TISSUE FX CSTM SRG PRC DISP Screw 4.5mm 30mm Shldr Glnd Lck Geovany Implanted:Qty: 1 on 03/19/2019 by Pablo Liriano MD at [facility] Left: Shoulder [employer] 01/01/2024 1307-90-030 / / Description:DXTEND SCREW LOC K D4.4U20NW--94/22 LG 6.5mm Canellous Screw Implanted:Qty: 1 on 10/25/2020 by Anjelica Gutierres MD at [facility] Right: Ankle [employer] 486-55-01 / / 6.5mm Cancellous Screw Implanted:Qty: 1 on 10/25/2020 by Anjelica Gutierres MD at [facility] Right: Ankle [employer] / / Cortical Screw 2.7mm Implanted:Qty: 1 on 10/25/2020 by Anjelica Gutierres MD at [facility] Right: Ankle [employer] [id number] / / Screw 3.5mm 32mm 2.5mm Slf-Tap Sm Hex Implanted:Qty: 2 on 10/25/2020 by Anjelica Gutierres MD at [facility] Right: Ankle [employer] [id number] / / Screw 3.5mm 45mm 2.5mm Slf-Tap Sm Hex Implanted:Qty: 1 on 10/25/2020 by Anjelica Gutierres MD at [facility] Right: Ankle [employer] [id number] / / Graft Bone Alfs + Dbm 1cc Algrf Pst Implanted:Qty: 1 on 10/25/2020 by Anjelica Gutierres MD at [facility] Right: Ankle [employer] 04/08/2021 [id number] / / [id number] Bsplt Glnd 30mm Rsp Shldr P2 Strl Lf Implanted:Qty: 1 on 04/26/2022 by Mariano Guzmán MD at [facility] Left: Shoulder [employer] 03/23/2028 508-32-204 / / [id number] Screw 5mm 14mm Shldr Lck Rsp Glnd Bsplt Implanted:Qty: 1 on 04/26/2022 by Mariano Guzmán MD at [facility] Left: Shoulder [employer] 03/25/2028 506-03-114 / / [id number] Screw 5mm 14mm Shldr Lck Rsp Glnd Bsplt Implanted:Qty: 1 on 04/26/2022 by Mariano Guzmán MD at [facility] Left: Shoulder [employer] 04/05/2028 506-03-114 / / [id number] Screw 5mm 30mm Shldr Lck Rsp Glnd Bsplt Implanted:Qty: 1 on 04/26/2022 by Mariano Guzmán MD at [facility] Left: Shoulder [employer] 03/13/2028 506-03-130 / / [id number] Screw 5mm 30mm Shldr Lck Rsp Glnd Bsplt Implanted:Qty: 1 on 04/26/2022 by Mariano Guzmán MD at [facility] Left: Shoulder [employer] 03/18/2028 506-03-130 / / [id number] Cmnt Bone Djo Srg Cblt 40gm Hvisc Strl Implanted:Qty: 1 on 04/26/2022 by Mariano Guzmán MD at [facility] Left: Shoulder [employer] 03/16/2023 600-15-000 / / [id number] Head Glnd 32mm Rsp Ntrl Shldr Rtn Screw Implanted:Qty: 1 on 04/26/2022 by Mariano Guzmán MD at [facility] Left: Shoulder [employer] 03/22/2028 508-32-101 / / [id number] Ins Sckt Rsp Djo Srg +4mm Hum Hxe+ Implanted:Qty: 1 on 04/26/2022 by Mariano Guzmán MD at [facility] Left: Shoulder [employer] 12/26/2026 509-01-432 / / [id number] Humeral Stem Reverse Size 8mm X 108mm Implanted:Qty: 1 on 04/26/2022 by Mariano Guzmán MD at [facility] Left: Shoulder [employer] 10/05/2027 530-08-108 / / [id number] Rstrc Cmnt Cl Ct 10mm Implanted:Qty: 1 on 04/26/2022 by Mariano Guzmán MD at [facility] Left: Shoulder [employer] 07/03/2024 415-00-100 / / [id number] Rsp Humeral Socket Insert 32mm Semi-Constrain ed Implanted:Qty: 1 on 06/14/2022 by Mariano Guzmán MD at [facility] Left: Shoulder [employer] 08/12/2026 509-01-032 / / [id number] Spcr Hum Djo Srg Rsp +8mm Mnblck Strl Lf Implanted:Qty: 1 on 06/14/2022 by Mariano Guzmán MD at [facility] Left: Shoulder [employer] 04/12/2028 510-08-000 / / [id number] Head Glnd 32mm Rsp Ntrl Shldr Rtn Screw Implanted:Qty: 1 on 06/14/2022 by Mariano Guzmán MD at [facility] Left: Shoulder [employer] 05/17/2028 508-32-101 / / [id number] Screws Implanted:Qty: 1 on 08/10/2023 by Jace Muller MD at [facility] Left: Ankle AR-8935-32 / / Description:3.0-4.0 ARTHREX VENDOR TRAY Screw Implanted:Qty: 1 on 08/10/2023 by Jace Muller MD at [facility] Left: Ankle Ar[employer] Inc AR-8940-34 / / Description:3.0-4.0 ARTHREX TRAY Kit Bngf 3cc Aug Inj Implanted:Qty: 1 on 01/14/2024 by Jace Muller MD at [facility] Left: Ankle [employer] Inc 08/30/2026 [id number] / / [id number] Graft Bone Ignite 2 Mini 4cc Pwr Mx - [id number] Implanted:Qty: 1 on 01/14/2024 by Jace Muller MD at [facility] Left: Ankle [employer] 07/19/2028 [id number] / [id number] / Allosync Pure 5cc Implanted:Qty: 1 on 01/14/2024 by Jace Muller MD at [facility] Left: Ankle Arthrex Inc 08/20/2028 / / [id number] 7.0 Screw 55 Implanted:Qty: 1 on 01/14/2024 by Jace Muller MD at [facility] Left: Ankle Ar[employer] Inc AR-8770-5H / / 7.0 Screw 40 Implanted:Qty: 1 on 01/14/2024 by Jace Muller MD at [facility] Left: Ankle [employer] AR-8770-40H / / Explanted Type Area Plastic Worker Device Identifier Shelf Expiration Date Model / Serial / Lot Cortical Screw 3.5mm Explanted:Qty: 1 on 10/25/2020 at [facility] Right: Ankle [employer] [id number] / / 4.0mm Screw Explanted:Qty: 1 on 08/10/2023 at [facility] Left: Ankle AR-8940-32 / / Screw 3mm 20mm T10 Ft Slf-Tap Lck Strdr Explanted:Qty: 1 on 08/10/2023 by Felipe Bourne MD at [facility] Left: Ankle [employer] AR-8933L-20 / / Screw 3mm 18mm Va Slf-Tap Sld Lck Ankl Explanted:Qty: 1 on 08/10/2023 by Felipe Bourne MD at [facility] Left: Ankle [employer] AR-8933V-18 / / Wire K .062in 6in Fx 2 Troc Explanted:Qty: 2 on 08/10/2023 at [facility] Left: Ankle [employer] [id number] / / Screw 3.5mm 28mm T15 Ft Slf-Tap Sld Hxlb Implanted:Qty: 1 on 08/10/2023 by Jace Muller MD at [facility] Explanted:Qty: 1 on 01/14/2024 by Jace Muller MD at [facility] Left: Ankle Ar[employer] Inc AR-8935CL-2 8 / / Screw 3.5mm 26mm T15 Ft Slf-Tap Sld Hxlb Implanted:Qty: 1 on 08/10/2023 by Jace Muller MD at [facility] Explanted:Qty: 1 on 01/14/2024 by Jace Muller MD at [facility] Left: Ankle [employer] Inc AR-8935CL-2 6 / / Plate Calc 7.5mm Stp Bone Implanted:Qty: 1 on 08/10/2023 by Jace Muller MD at [facility] Explanted:Qty: 1 on 01/14/2024 by Jace Muller MD at [facility] Left: Ankle [employer] AR-8949-075 / / 3.5mm Locking Screw Implanted:Qty: 1 on 08/10/2023 by Jace Muller MD at [facility] Explanted:Qty: 1 on 01/14/2024 by Jace Muller MD at [facility] Left: Ankle AR-8935CL-2 4 / / Description:3.0-4.0 ARTHREX VENDOR TRAY Screw 3mm 16mm Va Slf-Tap Sld Lck Ankl Implanted:Qty: 1 on 08/10/2023 by Felipe Bourne MD at [facility] Explanted:Qty: 1 on 01/14/2024 by Jace Muller MD at [facility] Left: Ankle [employer] AR-8933V-16 / / Screw 3mm 20mm Va Slf-Tap Sld Lck Ankl Implanted:Qty: 1 on 08/10/2023 by Felipe Bourne MD at [facility] Explanted:Qty: 1 on 01/14/2024 by Jace Muller MD at 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 * COMPREHENSIVE METABOLIC PANEL(Performed 09/17/2024) Performed for Positive double stranded 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 * CBC W AUTO DIFFERENTIAL(Performed 09/17/2024) Performed for Positive double stranded 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 * DNA ANTIBODY DOUBLE STRANDED(Performed 09/17/2024) Performed for Positive double stranded 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 * XR CALCANEUS LEFT 2VW OR MORE(Performed 05/08/2024) Performed for Orthopedic aftercare * XR FOOT LEFT WT BEARING 3VW(Performed 05/08/2024) Performed for Orthopedic aftercare * XR FOOT LEFT WT BEARING 3VW(Performed 03/19/2024) Performed for Orthopedic aftercare * XR CALCANEUS LEFT 2VW OR MORE(Performed 03/19/2024) Performed for Orthopedic aftercare * XR FOOT LEFT WT BEARING 3VW(Performed 02/20/2024) Performed for Orthopedic aftercare * XR CALCANEUS LEFT 2VW OR MORE(Performed 02/20/2024) Performed for Orthopedic aftercare * DNA ANTIBODY DS CRITHIDIA TITER(Performed 02/12/2024) Performed for Positive JENNIFER (antinuclear antibody) * TEIXEIRA/CABLE TELEVISION INSTALLER (GIAN) ANTIBODY IGG(Performed 02/12/2024) Performed for Positive JENNIFER (antinuclear antibody) * SS-A (SJOGREN'S) 52+60 ANTIBODIES(Performed 02/12/2024) Performed for Positive JENNIFER (antinuclear antibody) * URINALYSIS W/MICROSCOPIC REFLEX TO CULTURE(Performed 02/12/2024) Performed for Positive JENNIFER (antinuclear antibody) * SS-B (SJOGREN'S) ANTIBODY(Performed 02/12/2024) Performed for Positive JENNIFER (antinuclear antibody) * COMPLEMENT C4(Performed 02/12/2024) Performed for Positive JENNIFER (antinuclear antibody) * COMPLEMENT C3(Performed 02/12/2024) Performed for Positive JENNIFER (antinuclear antibody) * CHROMATIN ANTIBODY(Performed 02/12/2024) Performed for Positive JENNIFER (antinuclear antibody) * JENNIFER BLOOD SCREEN W/REFLEX TITER(Performed 02/12/2024) Performed for Positive JENNIFER (antinuclear antibody) * DNA ANTIBODY DOUBLE STRANDED(Performed 02/12/2024) Performed for Positive JENNIFER (antinuclear antibody) * PROTEIN CREATININE RATIO URINE RANDOM PNL(Performed 02/12/2024) Performed for Positive JENNIFER (antinuclear antibody) * XR CALCANEUS LEFT 2VW OR MORE(Performed 01/30/2024) Performed for Orthopedic aftercare * XR FOOT LEFT 3VW OR MORE(Performed 01/30/2024) Performed for Orthopedic aftercare * CARDIAC RHYTHM STRIP ORDER(Performed 01/18/2024) * IMAGING/RADIOLOGY/XRAY RESULTS ORDER(Performed 01/18/2024) * URINALYSIS REFLEX MICROSCOPIC REFLEX CULTURE(Performed 01/16/2024) Performed for Urge incontinence of urine * XR FOOT LEFT 3VW OR MORE(Performed 01/14/2024) Performed for Failed orthopedic implant, 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[facility]) * XR CALCANEUS LEFT 2VW OR MORE(Performed 01/14/2024) Performed for Failed orthopedic implant, 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[facility]) * FL ANITA SURGERY(Performed 01/14/2024) Performed for Left foot pain * CULTURE FUNGUS OTHER+FUNGUS SMEAR(Performed 01/14/2024) Performed for Diagnosis unknown * CULTURE TISSUE+GRAM STAIN(Performed 01/14/2024) Performed for Diagnosis unknown * CULTURE AFB+SMEAR(Performed 01/14/2024) Performed for Diagnosis unknown * PERIPHERAL BLOCK(Performed 01/14/2024) * PERIPHERAL BLOCK(Performed 01/14/2024) * OH OSTEOTOMY HEEL BONE(Performed 01/14/2024) * OH REMOVAL DEEP IMPLANT(Performed 01/14/2024) * XR FOOT RIGHT WT BEARING 3VW(Performed 12/18/2023) Performed for Right foot pain * C-REACTIVE PROTEIN(Performed 12/18/2023) Performed for Mechanical complication associated with orthopedic device, sequela * ERYTHROCYTE SEDIMENTATION RATE(Performed 12/18/2023) Performed for Mechanical complication associated with orthopedic device, sequela * XR CALCANEUS LEFT 2VW OR MORE(Performed 12/13/2023) Performed for Acquired pes planus, left * XR FOOT LEFT WT BEARING 3VW(Performed 12/13/2023) Performed for Acquired pes planus, left * XR FOOT LEFT WT BEARING 3VW(Performed 09/27/2023) Performed for Acquired pes planus, left * XR CALCANEUS LEFT 2VW OR MORE(Performed 09/27/2023) Performed for Orthopedic aftercare * XR CALCANEUS LEFT 2VW OR MORE(Performed 08/23/2023) Performed for Acquired pes planus, left * XR FOOT LEFT 3VW OR MORE(Performed 08/23/2023) Performed for Acquired pes planus, left * LARYNGEAL MASK AIRWAY(Performed 08/10/2023) * [place] OSTEOTOMY HEEL BONE(Performed 08/10/2023) Performed for Subluxation of tarsal joint of right foot, initial encounter, Equinus deformity of foot * PERIPHERAL BLOCK(Performed 08/10/2023) * PERIPHERAL BLOCK(Performed 08/10/2023) * PT-INR SLH(Performed 07/30/2023) Performed for Right foot pain * CBC W AUTO DIFFERENTIAL(Performed 07/30/2023) Performed for Right foot pain * BASIC METABOLIC PANEL (CALCIUM TOTAL)(Performed 07/30/2023) Performed for Right foot pain * EKG 12-LEAD(Performed 07/30/2023) Performed for Right foot pain * XR SHOULDER LEFT 2VW OR MORE(Performed 07/17/2023) Performed for 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 * XR CALCANEUS LEFT 2VW OR MORE(Performed 07/04/2023) Performed for Acquired pes planus, left * XR FOOT LEFT WT BEARING 3VW(Performed 07/04/2023) Performed for Acquired pes planus, left * XR ANKLE LEFT 3VW OR MORE(Performed 07/04/2023) Performed for Acquired pes planus, left * MRI FOOT RIGHT WO CONTRAST(Performed 07/01/2023) Performed for Pes planovalgus, acquired, right * MRI FOOT RIGHT WO CONTRAST(Performed 05/27/2023) Performed for Pes planovalgus, acquired, right * CT FOOT RIGHT WO CONTRAST(Performed 04/09/2023) Performed for Right foot pain, Pes planovalgus, acquired, right * XR FOOT RIGHT WT BEARING 3VW(Performed 03/29/2023) Performed for Right foot pain * XR ANKLE RIGHT 3VW OR MORE(Performed 03/29/2023) Performed for Right foot pain * XR LUMBAR SPINE 2 OR 3VW(Performed 03/19/2023) Performed for Low back pain, unspecified back pain laterality, unspecified chronicity, unspecified whether sciatica present * XR SHOULDER LEFT 2VW OR MORE(Performed 01/30/2023) Performed for 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 * XR SHOULDER LEFT 2VW OR MORE(Performed 12/21/2022) Performed for 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 * XR SHOULDER RIGHT 2VW OR MORE(Performed 09/28/2022) Performed for Chronic right shoulder pain * XR SHOULDER LEFT 2VW OR MORE(Performed 09/28/2022) Performed for 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, Infection of prosthetic shoulder joint, 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[facility]) * XR SHOULDER LEFT 2VW OR MORE(Performed 07/18/2022) Performed for 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, Infection of prosthetic shoulder joint, 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[facility]) * REMOVAL CENTRAL VENOUS CATH/PORT (ANY TYPE)(Performed 07/09/2022) * CULTURE HARDWARE(Performed 07/09/2022) Performed for Undiagnosed disease or syndrome present, Infection of venous access port, initial encounter * CBC W/O DIFFERENTIAL(Performed 07/08/2022) Performed for Closed displaced fracture of acromial process of left scapula, initial encounter * BASIC METABOLIC PANEL (CALCIUM TOTAL)(Performed 07/08/2022) Performed for Benign hypertension, Closed displaced fracture of acromial process of left scapula, initial encounter * CULTURE BLOOD(Performed 07/07/2022) Performed for Cellulitis of forearm, right * CULTURE BLOOD(Performed 07/07/2022) Performed for Cellulitis of forearm, right * COMPREHENSIVE METABOLIC PANEL(Performed 07/06/2022) * CBC W AUTO DIFFERENTIAL(Performed 07/06/2022) * URINALYSIS REFLEX MICROSCOPIC REFLEX CULTURE(Performed 07/06/2022) * XR CHEST 2VW(Performed 07/06/2022) Performed for Flank pain * CT RENAL STONE(Performed 07/06/2022) Performed for Flank pain * XR SHOULDER LEFT 2VW OR MORE(Performed 06/27/2022) Performed for 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 * CARDIAC RHYTHM STRIP ORDER(Performed 06/21/2022) * BASIC METABOLIC PANEL (CALCIUM TOTAL)(Performed 06/20/2022) * CBC W AUTO DIFFERENTIAL(Performed 06/20/2022) * DIFFERENTIAL MANUAL(Performed 06/19/2022) * MAGNESIUM BLOOD(Performed 06/19/2022) * BASIC METABOLIC PANEL (CALCIUM TOTAL)(Performed 06/19/2022) * CBC W AUTO DIFFERENTIAL(Performed 06/19/2022) * VANCOMYCIN LEVEL TROUGH(Performed 06/18/2022) * GLUCOSE - POINT OF CARE(Performed 06/18/2022) * BASIC METABOLIC PANEL (CALCIUM TOTAL)(Performed 06/18/2022) * HOME CPAP/BIPAP FOR HOSP USE: NOCTURNAL 02(Performed 06/18/2022) * HOME CPAP/BIPAP FOR HOSP USE: NOCTURNAL 02(Performed 06/17/2022) * HOME CPAP/BIPAP FOR HOSP USE: NOCTURNAL 02(Performed 06/16/2022) * MRI LUMBAR SPINE WWO CONTRAST(Performed 06/15/2022) Performed for Sepsis, due to unspecified organism, unspecified whether acute organ dysfunction present (HCC) * MRI THORACIC SPINE WWO CONT(Performed 06/15/2022) Performed for Sepsis, due to unspecified organism, unspecified whether acute organ dysfunction present (HCC) * VANCOMYCIN LEVEL TROUGH(Performed 06/15/2022) * C-REACTIVE PROTEIN(Performed 06/15/2022) * ERYTHROCYTE SEDIMENTATION RATE(Performed 06/15/2022) * COMPREHENSIVE METABOLIC PANEL(Performed 06/15/2022) * CBC W/O DIFFERENTIAL(Performed 06/15/2022) * HOME CPAP/BIPAP FOR HOSP USE: NOCTURNAL 02(Performed 06/15/2022) * XR SHOULDER LEFT 2VW OR MORE(Performed 06/14/2022) 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) * CULTURE FUNGUS OTHER+FUNGUS SMEAR(Performed 06/14/2022) Performed for Diagnosis unknown * CULTURE TISSUE+GRAM STAIN(Performed 06/14/2022) Performed for Diagnosis unknown * CULTURE AFB+SMEAR(Performed 06/14/2022) Performed for Diagnosis unknown * CULTURE ANAEROBE(Performed 06/14/2022) Performed for Diagnosis unknown * CULTURE FUNGUS OTHER+FUNGUS SMEAR(Performed 06/14/2022) Performed for Diagnosis unknown * CULTURE TISSUE+GRAM STAIN(Performed 06/14/2022) Performed for Diagnosis unknown * CULTURE AFB+SMEAR(Performed 06/14/2022) Performed for Diagnosis unknown * CULTURE ANAEROBE(Performed 06/14/2022) Performed for Diagnosis unknown * CULTURE FUNGUS OTHER+FUNGUS SMEAR(Performed 06/14/2022) Performed for Diagnosis unknown * CULTURE TISSUE+GRAM STAIN(Performed 06/14/2022) Performed for Diagnosis unknown * CULTURE AFB+SMEAR(Performed 06/14/2022) Performed for Diagnosis unknown * CULTURE ANAEROBE(Performed 06/14/2022) Performed for Diagnosis unknown * CULTURE HARDWARE(Performed 06/14/2022) * OH RECONSTR TOTAL SHOULDER IMPLANT(Performed 06/14/2022) * CULTURE BLOOD(Performed 06/14/2022) * CULTURE BLOOD(Performed 06/14/2022) * COMPREHENSIVE METABOLIC PANEL(Performed 06/14/2022) * C-REACTIVE PROTEIN(Performed 06/14/2022) * ERYTHROCYTE SEDIMENTATION RATE(Performed 06/14/2022) * CBC W AUTO DIFFERENTIAL(Performed 06/14/2022) * XR SHOULDER LEFT 2VW OR MORE(Performed 06/06/2022) Performed for S/P reverse total shoulder arthroplasty, left * XR SHOULDER LEFT 2VW OR MORE(Performed 05/11/2022) Performed for S/P reverse total shoulder arthroplasty, left * CARDIAC RHYTHM STRIP ORDER(Performed 05/01/2022) * IMAGING/RADIOLOGY/XRAY RESULTS ORDER(Performed 05/01/2022) * HGB HCT PANEL(Performed 04/27/2022) * CREATININE BLOOD(Performed 04/26/2022) * XR SHOULDER LEFT 1VW(Performed 04/26/2022) Performed for S/P reverse total shoulder arthroplasty, left, Chronic left shoulder pain * FL ANITA SURGERY(Performed 04/26/2022) Performed for Pain * CULTURE ANAEROBE(Performed 04/26/2022) Performed for Aftercare following bilateral shoulder joint replacement surgery * CULTURE ANAEROBE(Performed 04/26/2022) Performed for Aftercare following bilateral shoulder joint replacement surgery * CULTURE WOUND+GRAM STAIN(Performed 04/26/2022) Performed for Aftercare following bilateral shoulder joint replacement surgery * CULTURE ANAEROBE(Performed 04/26/2022) Performed for Aftercare following bilateral shoulder joint replacement surgery * CULTURE TISSUE+GRAM STAIN(Performed 04/26/2022) Performed for S/P reverse total shoulder arthroplasty, left * CULTURE HARDWARE(Performed 04/26/2022) Performed for S/P reverse total shoulder arthroplasty, left * CULTURE TISSUE+GRAM STAIN(Performed 04/26/2022) Performed for S/P reverse total shoulder arthroplasty, left * CULTURE TISSUE+GRAM STAIN(Performed 04/26/2022) Performed for S/P reverse total shoulder arthroplasty, left * CULTURE ANAEROBE(Performed 04/26/2022) Performed for Aftercare following bilateral shoulder joint replacement surgery * CULTURE ANAEROBE(Performed 04/26/2022) Performed for Aftercare following bilateral shoulder joint replacement surgery * CULTURE FUNGUS OTHER+FUNGUS SMEAR(Performed 04/26/2022) Performed for Aftercare following bilateral shoulder joint replacement surgery * CULTURE FLUID+GRAM STAIN(Performed 04/26/2022) Performed for Aftercare following bilateral shoulder joint replacement surgery * CULTURE AFB+SMEAR(Performed 04/26/2022) Performed for Aftercare following bilateral shoulder joint replacement surgery * CULTURE ANAEROBE(Performed 04/26/2022) Performed for Aftercare following bilateral shoulder joint replacement surgery * ARTHROPLASTY TOTAL SHOULDER REVISION(Performed 04/26/2022) Performed for Z96.612 * PERIPHERAL BLOCK(Performed 04/26/2022) * COMPREHENSIVE METABOLIC PANEL(Performed 04/20/2022) Performed for Pre-op testing * CBC W AUTO DIFFERENTIAL(Performed 04/20/2022) Performed for Pre-op testing * EKG 12-LEAD(Performed 04/20/2022) Performed for Pre-op testing * CARDIAC RHYTHM STRIP ORDER(Performed 02/10/2022) * IMAGING/RADIOLOGY/XRAY RESULTS ORDER(Performed 02/09/2022) * CULTURE TISSUE+GRAM STAIN(Performed 02/08/2022) Performed for Diagnosis unknown * CULTURE ANAEROBE(Performed 02/08/2022) Performed for Diagnosis unknown * CULTURE TISSUE+GRAM STAIN(Performed 02/08/2022) Performed for Diagnosis unknown * CULTURE ANAEROBE(Performed 02/08/2022) Performed for Diagnosis unknown * CULTURE TISSUE+GRAM STAIN(Performed 02/08/2022) Performed for Diagnosis unknown * CULTURE ANAEROBE(Performed 02/08/2022) Performed for Diagnosis unknown * CULTURE TISSUE+GRAM STAIN(Performed 02/08/2022) Performed for Diagnosis unknown * CULTURE ANAEROBE(Performed 02/08/2022) Performed for Diagnosis unknown * OH SHOULDER ARTHROSCOPY(Performed 02/08/2022) * PERIPHERAL BLOCK(Performed 02/08/2022) * XR CERVICAL SPINE 2 OR 3VW(Performed 12/26/2021) Performed for Cervicalgia * XR CHEST 2VW(Performed 12/26/2021) Performed for Systemic lupus erythematosus, unspecified SLE type, unspecified organ involvement status (HCC), Right hip pain, Cough * XR PELVIS W BILAT HIP 2VW(Performed 12/26/2021) Performed for Systemic lupus erythematosus, unspecified SLE type, unspecified organ involvement status (HCC), Right hip pain, Cough * URINALYSIS W/MICROSCOPIC NO CULTURE(Performed 12/26/2021) Performed for Systemic lupus erythematosus, unspecified SLE type, unspecified organ involvement status (HCC), Right hip pain, Cough, Cervicalgia * CULTURE URINE(Performed 12/26/2021) Performed for Systemic lupus erythematosus, unspecified SLE type, unspecified organ involvement status (HCC), Right hip pain, Cough, Cervicalgia * COMPLEMENT C4(Performed 12/26/2021) Performed for Systemic lupus erythematosus, unspecified SLE type, unspecified organ involvement status (HCC), Right hip pain, Cough, Cervicalgia * COMPLEMENT C3(Performed 12/26/2021) Performed for Systemic lupus erythematosus, unspecified SLE type, unspecified organ involvement status (HCC), Right hip pain, Cough, Cervicalgia * CBC W AUTO DIFFERENTIAL(Performed 12/26/2021) Performed for Systemic lupus erythematosus, unspecified SLE type, unspecified organ involvement status (HCC), Right hip pain, Cough, Cervicalgia * COMPREHENSIVE METABOLIC PANEL(Performed 12/26/2021) Performed for Systemic lupus erythematosus, unspecified SLE type, unspecified organ involvement status (HCC), Right hip pain, Cough, Cervicalgia * ERYTHROCYTE SEDIMENTATION RATE(Performed 12/26/2021) Performed for Systemic lupus erythematosus, unspecified SLE type, unspecified organ involvement status (HCC), Right hip pain, Cough, Cervicalgia * C-REACTIVE PROTEIN(Performed 12/26/2021) Performed for Systemic lupus erythematosus, unspecified SLE type, unspecified organ involvement status (HCC), Right hip pain, Cough, Cervicalgia * OH DRAIN/INJECT LARGE JOINT/BURSA(Performed 10/04/2021) Performed for Pain due to left shoulder joint prosthesis ([facility]) * LAB RESULTS ORDER(Performed 09/28/2021) * FL JOINT INJECTION OR ASPIRATE(Performed 09/09/2021) Performed for Closed displaced fracture of acromial process of left scapula with delayed healing, subsequent encounter * PROC INJECTION JOINT (SMALL/INTERMED/MAJOR)(Performed 07/28/2021) Performed for Closed displaced fracture of acromial process of left scapula with delayed healing, subsequent encounter * CT SHOULDER LEFT WO CONTRAST(Performed 07/08/2021) Performed for Closed displaced fracture of acromial process of left scapula with delayed healing, subsequent encounter * OH POLYSOM 6/> YRS 4/> SHAYNA(Performed 07/05/2021) Performed for BIANCA (obstructive sleep apnea) * XR SHOULDER LEFT 2VW OR MORE(Performed 06/24/2021) Performed for S/P reverse total shoulder arthroplasty, left, Closed nondisplaced fracture of acromial process of left scapula with routine healing, subsequent encounter * XR FOOT RIGHT 3VW OR MORE(Performed 06/06/2021) Performed for Pes planovalgus, acquired, right, Gastrocnemius equinus of right lower extremity * XR CALCANEUS RIGHT 2VW OR MORE(Performed 06/06/2021) Performed for Pes planovalgus, acquired, right, Gastrocnemius equinus of right lower extremity * XR LUMBAR SPINE 2 OR 3VW(Performed 05/16/2021) Performed for Back pain, unspecified back location, unspecified back pain laterality, unspecified chronicity * CT CERVICAL SPINE WO CONTRAST(Performed 05/13/2021) Performed for Neck pain * XR CHEST 2VW(Performed 05/13/2021) Performed for Neck pain * XR SHOULDER LEFT 2VW OR MORE(Performed 05/11/2021) Performed for S/P reverse total shoulder arthroplasty, left, Left shoulder pain, unspecified chronicity * COMPREHENSIVE METABOLIC PANEL(Performed 04/22/2021) * CBC W AUTO DIFFERENTIAL(Performed 04/22/2021) * XR SHOULDER LEFT 2VW OR MORE(Performed 03/30/2021) Performed for S/P reverse total shoulder arthroplasty, left * XR CALCANEUS RIGHT 2VW OR MORE(Performed 01/20/2021) Performed for Pes planovalgus, acquired, right, Gastrocnemius equinus of right lower extremity, Subfibular impingement of right lower extremity * XR FOOT RIGHT 3VW OR MORE(Performed 01/20/2021) Performed for Pes planovalgus, acquired, right, Gastrocnemius equinus of right lower extremity, Subfibular impingement of right lower extremity * COMPLEMENT C4(Performed 12/10/2020) Performed for Polyarthralgia, Positive JENNIFER (antinuclear antibody), Systemic lupus erythematosus, unspecified SLE type, unspecified organ involvement status (HCC), High risk medication use * COMPLEMENT C3(Performed 12/10/2020) Performed for Polyarthralgia, Positive JENNIFER (antinuclear antibody), Systemic lupus erythematosus, unspecified SLE type, unspecified organ involvement status (HCC), High risk medication use * VITAMIN D 25-HYDROXY(Performed 12/10/2020) Performed for Polyarthralgia, Positive JENNIFER (antinuclear antibody), Systemic lupus erythematosus, unspecified SLE type, unspecified organ involvement status (HCC), High risk medication use * CBC W AUTO DIFFERENTIAL(Performed 12/10/2020) Performed for Polyarthralgia, Positive JENNIFER (antinuclear antibody), Systemic lupus erythematosus, unspecified SLE type, unspecified organ involvement status (HCC), High risk medication use * ERYTHROCYTE SEDIMENTATION RATE(Performed 12/10/2020) Performed for Polyarthralgia, Positive JENNIFER (antinuclear antibody), Systemic lupus erythematosus, unspecified SLE type, unspecified organ involvement status (HCC), High risk medication use * C-REACTIVE PROTEIN(Performed 12/10/2020) Performed for Polyarthralgia, Positive JENNIFER (antinuclear antibody), Systemic lupus erythematosus, unspecified SLE type, unspecified organ involvement status (HCC), High risk medication use * COMPREHENSIVE METABOLIC PANEL(Performed 12/10/2020) Performed for Polyarthralgia, Positive JENNIFER (antinuclear antibody), Systemic lupus erythematosus, unspecified SLE type, unspecified organ involvement status (HCC), High risk medication use * XR FOOT RIGHT WT BEARING 3VW(Performed 12/10/2020) Performed for Posterior tibial tendinitis of right lower extremity, Gastrocnemius equinus of right lower extremity, Pes planus, unspecified laterality * XR SACRUM AND COCCYX(Performed 12/10/2020) Performed for Polyarthralgia * XR CERVICAL SPINE 2 OR 3VW(Performed 12/10/2020) Performed for Polyarthralgia * CARDIAC RHYTHM STRIP ORDER(Performed 10/29/2020) * CARDIAC STRESS TEST ORDER(Performed 10/28/2020) * IMAGING/RADIOLOGY/XRAY RESULTS ORDER(Performed 10/28/2020) * CBC W/O DIFFERENTIAL(Performed 10/26/2020) Performed for S/P reverse total shoulder arthroplasty, right * BASIC METABOLIC PANEL (CALCIUM TOTAL)(Performed 10/26/2020) Performed for S/P reverse total shoulder arthroplasty, right * FL ANITA SURGERY(Performed 10/25/2020) Performed for Pain * ENDOTRACHEAL TUBE NOTE(Performed 10/25/2020) * PERIPHERAL BLOCK(Performed 10/25/2020) * OH GASTROCNEMIUS RECESSION(Performed 10/25/2020) Performed for Diagnosis unknown * COMPLEMENT C4(Performed 08/31/2020) Performed for Positive JENNIFER (antinuclear antibody), Systemic lupus erythematosus, unspecified SLE type, unspecified organ involvement status (HCC), Long-term use of Plaquenil, Encounter for medicationmonitoring, Arthralgia, unspecified joint * COMPLEMENT C3(Performed 08/31/2020) Performed for Positive JENNIFER (antinuclear antibody), Systemic lupus erythematosus, unspecified SLE type, unspecified organ involvement status (HCC), Long-term use of Plaquenil, Encounter for medicationmonitoring, Arthralgia, unspecified joint * URINALYSIS REFLEX TO MICROSCOPIC NO CULTURE(Performed 08/31/2020) Performed for Positive JENNIFER (antinuclear antibody), Systemic lupus erythematosus, unspecified SLE type, unspecified organ involvement status (HCC), Long-term use of Plaquenil, Encounter for medicationmonitoring, Arthralgia, unspecified joint * CBC W AUTO DIFFERENTIAL(Performed 08/31/2020) Performed for Positive JENNIFER (antinuclear antibody), Systemic lupus erythematosus, unspecified SLE type, unspecified organ involvement status (HCC), Long-term use of Plaquenil, Encounter for medicationmonitoring, Arthralgia, unspecified joint * ERYTHROCYTE SEDIMENTATION RATE(Performed 08/31/2020) Performed for Positive JENNIFER (antinuclear antibody), Systemic lupus erythematosus, unspecified SLE type, unspecified organ involvement status (HCC), Long-term use of Plaquenil, Encounter for medicationmonitoring, Arthralgia, unspecified joint * C-REACTIVE PROTEIN(Performed 08/31/2020) Performed for Positive JENNIFER (antinuclear antibody), Systemic lupus erythematosus, unspecified SLE type, unspecified organ involvement status (HCC), Long-term use of Plaquenil, Encounter for medicationmonitoring, Arthralgia, unspecified joint * COMPREHENSIVE METABOLIC PANEL(Performed 08/31/2020) Performed for Positive JENNIFER (antinuclear antibody), Systemic lupus erythematosus, unspecified SLE type, unspecified organ involvement status (HCC), Long-term use of Plaquenil, Encounter for medicationmonitoring, Arthralgia, unspecified joint * XR FOOT RIGHT 3VW OR MORE(Performed 06/08/2020) Performed for Pes planovalgus, acquired, right * MRI ANKLE RIGHT WO CONTRAST(Performed 05/24/2020) Performed for Pes planovalgus, acquired, right * MRI FOOT RIGHT WO CONTRAST(Performed 05/24/2020) Performed for Pes planovalgus, acquired, right * URINALYSIS REFLEX TO MICROSCOPIC NO CULTURE(Performed 03/30/2020) Performed for Positive JENNIFER (antinuclear antibody), Systemic lupus erythematosus, unspecified SLE type, unspecified organ involvement status (HCC), Long-term use of Plaquenil * ERYTHROCYTE SEDIMENTATION RATE(Performed 03/30/2020) Performed for Positive JENNIFER (antinuclear antibody), Systemic lupus erythematosus, unspecified SLE type, unspecified organ involvement status (HCC), Long-term use of Plaquenil * C-REACTIVE PROTEIN(Performed 03/30/2020) Performed for Positive JENNIFER (antinuclear antibody), Systemic lupus erythematosus, unspecified SLE type, unspecified organ involvement status (HCC), Long-term use of Plaquenil * COMPREHENSIVE METABOLIC PANEL(Performed 03/30/2020) Performed for Positive JENNIFER (antinuclear antibody), Systemic lupus erythematosus, unspecified SLE type, unspecified organ involvement status (HCC), Long-term use of Plaquenil * CBC W AUTO DIFFERENTIAL(Performed 03/30/2020) Performed for Positive JENNIFER (antinuclear antibody), Systemic lupus erythematosus, unspecified SLE type, unspecified organ involvement status (HCC), Long-term use of Plaquenil * XR SHOULDER LEFT 2VW OR MORE(Performed 03/30/2020) Performed for S/P reverse total shoulder arthroplasty, left, S/P reverse total shoulder arthroplasty, right * CT FOOT RIGHT WO CONTRAST(Performed 11/19/2019) Performed for Pes planovalgus, acquired, right * XR FOOT RIGHT 3VW OR MORE(Performed 10/21/2019) Performed for Pes planovalgus, acquired, right * XR ANKLE RIGHT 3VW OR MORE(Performed 10/21/2019) Performed for Pes planovalgus, acquired, right * XR ANKLE LEFT 2VW(Performed 10/21/2019) Performed for Pain * XR CERVICAL SPINE 2 OR 3VW(Performed 10/20/2019) Performed for Neck pain * XR SPINE ENTIRE 2 OR 3VW(Performed 10/20/2019) Performed for Neck pain * URINALYSIS REFLEX TO MICROSCOPIC NO CULTURE(Performed 09/30/2019) Performed for Positive JENNIFER (antinuclear antibody), Encounter for medication monitoring, Arthralgia,unspecified joint, Systemic lupus erythematosus, unspecified SLE type, unspecified organ involvement status (HCC) * VITAMIN D 25-HYDROXY(Performed 09/30/2019) Performed for Vitamin D deficiency * TEIXEIRA (SM) ANTIBODY GIAN(Performed 09/30/2019) Performed for Positive JENNIFER (antinuclear antibody), Encounter for medication monitoring, Arthralgia,unspecified joint, Systemic lupus erythematosus, unspecified SLE type, unspecified organ involvement status (HCC) * ERYTHROCYTE SEDIMENTATION RATE(Performed 09/30/2019) Performed for Positive JENNIFER (antinuclear antibody), Encounter for medication monitoring, Arthralgia,unspecified joint, Systemic lupus erythematosus, unspecified SLE type, unspecified organ involvement status (HCC) * C-REACTIVE PROTEIN(Performed 09/30/2019) Performed for Positive JENNIFER (antinuclear antibody), Encounter for medication monitoring, Arthralgia,unspecified joint, Systemic lupus erythematosus, unspecified SLE type, unspecified organ involvement status (HCC) * COMPREHENSIVE METABOLIC PANEL(Performed 09/30/2019) Performed for Positive JENNIFER (antinuclear antibody), Encounter for medication monitoring, Arthralgia,unspecified joint, Systemic lupus erythematosus, unspecified SLE type, unspecified organ involvement status (HCC) * CBC W AUTO DIFFERENTIAL(Performed 09/30/2019) Performed for Positive JENNIFER (antinuclear antibody), Encounter for medication monitoring, Arthralgia,unspecified joint, Systemic lupus erythematosus, unspecified SLE type, unspecified organ involvement status (HCC) * CABLE TELEVISION INSTALLER ANTIBODY(Performed 09/30/2019) Performed for Positive JENNIFER (antinuclear antibody), Encounter for medication monitoring, Arthralgia,unspecified joint, Systemic lupus erythematosus, unspecified SLE type, unspecified organ involvement status (HCC) * SS-B (SJOGREN'S) ANTIBODY(Performed 09/30/2019) Performed for Positive JENNIFER (antinuclear antibody), Encounter for medication monitoring, Arthralgia,unspecified joint, Systemic lupus erythematosus, unspecified SLE type, unspecified organ involvement status (HCC) * SS-A (SJOGREN'S) ANTIBODY(Performed 09/30/2019) Performed for Positive JENNIFER (antinuclear antibody), Encounter for medication monitoring, Arthralgia,unspecified joint, Systemic lupus erythematosus, unspecified SLE type, unspecified organ involvement status (HCC) * RHEUMATOID FACTOR BLOOD QUANTITATIVE(Performed 09/30/2019) Performed for Positive JENNIFER (antinuclear antibody), Encounter for medication monitoring, Arthralgia,unspecified joint, Systemic lupus erythematosus, unspecified SLE type, unspecified organ involvement status (HCC) * CYCLIC CITRUL PEPTIDE ANTIBODY IGG/IGA (CCP)(Performed 09/30/2019) Performed for Positive JENNIFER (antinuclear antibody), Encounter for medication monitoring, Arthralgia,unspecified joint, Systemic lupus erythematosus, unspecified SLE type, unspecified organ involvement status (HCC) * CHROMATIN ANTIBODY(Performed 09/30/2019) Performed for Positive JENNIFER (antinuclear antibody), Encounter for medication monitoring, Arthralgia,unspecified joint, Systemic lupus erythematosus, unspecified SLE type, unspecified organ involvement status (HCC) * HISTONE ANTIBODY(Performed 09/30/2019) Performed for Positive JENNIFER (antinuclear antibody), Encounter for medication monitoring, Arthralgia,unspecified joint, Systemic lupus erythematosus, unspecified SLE type, unspecified organ involvement status (HCC) * DNA ANTIBODY DOUBLE STRANDED(Performed 09/30/2019) Performed for Positive JENNIFER (antinuclear antibody), Encounter for medication monitoring, Arthralgia,unspecified joint, Systemic lupus erythematosus, unspecified SLE type, unspecified organ involvement status (HCC) * COMPLEMENT C4(Performed 09/30/2019) Performed for Positive JENNIFER (antinuclear antibody), Encounter for medication monitoring, Arthralgia,unspecified joint, Systemic lupus erythematosus, unspecified SLE type, unspecified organ involvement status (HCC) * COMPLEMENT C3(Performed 09/30/2019) Performed for Positive JENNIFER (antinuclear antibody), Encounter for medication monitoring, Arthralgia,unspecified joint, Systemic lupus erythematosus, unspecified SLE type, unspecified organ involvement status (HCC) * JENNIFER BLOOD SCREEN W/REFLEX TITER(Performed 09/30/2019) Performed for Positive JENNIFER (antinuclear antibody), Encounter for medication monitoring, Arthralgia,unspecified joint, Systemic lupus erythematosus, unspecified SLE type, unspecified organ involvement status (HCC) * XR FOOT LEFT 3VW OR MORE(Performed 09/30/2019) Performed for Systemic lupus erythematosus, unspecified SLE type, unspecified organ involvement status (HCC), Polyarthralgia * XR HAND RIGHT 3VW OR MORE(Performed 09/30/2019) Performed for Systemic lupus erythematosus, unspecified SLE type, unspecified organ involvement status (HCC), Polyarthralgia * XR HAND LEFT 3VW OR MORE(Performed 09/30/2019) Performed for Systemic lupus erythematosus, unspecified SLE type, unspecified organ involvement status (HCC), Polyarthralgia * XR FOOT RIGHT 3VW OR MORE(Performed 09/30/2019) Performed for Systemic lupus erythematosus, unspecified SLE type, unspecified organ involvement status (HCC), Polyarthralgia * XR CERVICAL SPINE 2 OR 3VW(Performed 06/24/2019) Performed for Postop check * CBC W AUTO DIFFERENTIAL(Performed 05/22/2019) Performed for S/P reverse total shoulder arthroplasty, left * ERYTHROCYTE SEDIMENTATION RATE(Performed 05/22/2019) Performed for S/P reverse total shoulder arthroplasty, left * C-REACTIVE PROTEIN(Performed 05/22/2019) Performed for S/P reverse total shoulder arthroplasty, left * XR SHOULDER LEFT 2VW OR MORE(Performed 05/22/2019) Performed for Postop check * XR SPINE ENTIRE 2 OR 3VW(Performed 05/14/2019) Performed for Back pain, unspecified back location, unspecified back pain laterality, unspecified chronicity * XR LUMBAR SPINE 2 OR 3VW(Performed 05/07/2019) Performed for Low back pain, unspecified back pain laterality, unspecified chronicity, with sciatica presence unspecified * XR SHOULDER LEFT 2VW OR MORE(Performed 04/01/2019) Performed for Osteoarthritis of left glenohumeral joint, Surgery follow-up examination * IMAGING/RADIOLOGY/XRAY RESULTS ORDER(Performed 03/24/2019) * CBC W AUTO DIFFERENTIAL(Performed 03/21/2019) * BASIC METABOLIC PANEL (CALCIUM TOTAL)(Performed 03/21/2019) * URINE MICROSCOPIC ONLY REFLEX TO CULTURE(Performed 03/20/2019) * URINALYSIS REFLEX MICROSCOPIC REFLEX CULTURE(Performed 03/20/2019) * CULTURE URINE(Performed 03/20/2019) * CBC W AUTO DIFFERENTIAL(Performed 03/20/2019) * BASIC METABOLIC PANEL (CALCIUM TOTAL)(Performed 03/20/2019) * XR SHOULDER LEFT 1VW(Performed 03/19/2019) Performed for Shoulder stiffness, left * PERIPHERAL BLOCK(Performed 03/19/2019) * ENDOTRACHEAL TUBE NOTE(Performed 03/19/2019) * ARTHROPLASTY TOTAL SHOULDER (REVERSE)(Performed 03/19/2019) Performed for Diagnosis unknown * XR CHEST 2VW(Performed 2019) Performed for Pre-op testing * EKG 12-LEAD(Performed 2019) Performed for Pre-op testing * PT-INR(Performed 2019) Performed for Pre-op testing * HEMOGLOBIN A1C(Performed 2019) Performed for Pre-op testing * NICOTINE + METABOLITES URINE(Performed 2019) Performed for Pre-op testing * COMPREHENSIVE METABOLIC PANEL(Performed 2019) Performed for Pre-op testing * CBC W AUTO DIFFERENTIAL(Performed 2019) Performed for Pre-op testing * CULTURE MSSA/MRSA(Performed 2019) Performed for Pre-op testing * CARDIAC RHYTHM STRIP ORDER(Performed 01/09/2019) * PERIPHERAL BLOCK(Performed 01/04/2019) * BASIC METABOLIC PANEL (CALCIUM TOTAL)(Performed 01/04/2019) Performed for Hypertension, unspecified type * CBC W AUTO DIFFERENTIAL(Performed 01/04/2019) Performed for Hypertension, unspecified type * CULTURE FUNGUS OTHER+FUNGUS SMEAR(Performed 01/03/2019) Performed for Diagnosis unknown * CULTURE TISSUE+GRAM STAIN(Performed 01/03/2019) Performed for Diagnosis unknown * CULTURE AFB+SMEAR(Performed 01/03/2019) Performed for Diagnosis unknown * CULTURE ANAEROBE(Performed 01/03/2019) Performed for Diagnosis unknown * CULTURE FUNGUS OTHER+FUNGUS SMEAR(Performed 01/03/2019) Performed for Diagnosis unknown * CULTURE TISSUE+GRAM STAIN(Performed 01/03/2019) Performed for Diagnosis unknown * CULTURE AFB+SMEAR(Performed 01/03/2019) Performed for Diagnosis unknown * CULTURE ANAEROBE(Performed 01/03/2019) Performed for Diagnosis unknown * CULTURE FUNGUS OTHER+FUNGUS SMEAR(Performed 01/03/2019) Performed for Diagnosis unknown * CULTURE FLUID+GRAM STAIN(Performed 01/03/2019) Performed for Diagnosis unknown * CULTURE AFB+SMEAR(Performed 01/03/2019) Performed for Diagnosis unknown * CULTURE ANAEROBE(Performed 01/03/2019) Performed for Diagnosis unknown * ENDOTRACHEAL TUBE NOTE(Performed 01/03/2019) * ARTHROSCOPY SHOULDER ACROMIOPLASTY /SUBACROMIAL DECOMPRESSION(Performed 01/03/2019) Performed for Diagnosis unknown * TYPE + SCREEN PANEL(Performed 01/03/2019) * MRI SHOULDER LEFT WO CONTRAST(Performed 12/31/2018) Performed for Chronic left shoulder pain * US JOINT INJECTION OR ASPIRATE(Performed 11/01/2018) Performed for Pain in joint of left shoulder * XR SHOULDER LEFT 2VW OR MORE(Performed 10/22/2018) Performed for Left shoulder pain, unspecified chronicity * MAGNESIUM BLOOD(Performed 05/15/2018) * CBC W/O DIFFERENTIAL(Performed 05/15/2018) * COMPREHENSIVE METABOLIC PANEL(Performed 05/15/2018) * MAGNESIUM BLOOD(Performed 05/14/2018) * COMPREHENSIVE METABOLIC PANEL(Performed 05/14/2018) * CBC W/O DIFFERENTIAL(Performed 05/14/2018) * XR ABDOMEN KUB PORTABLE(Performed 05/13/2018) Performed for Mass of colon * URINALYSIS REFLEX TO MICROSCOPIC NO CULTURE(Performed 05/13/2018) * ERYTHROCYTE SEDIMENTATION RATE(Performed 05/13/2018) * C-REACTIVE PROTEIN(Performed 05/13/2018) * CULTURE BLOOD(Performed 05/13/2018) * CULTURE BLOOD(Performed 05/13/2018) * LACTIC ACID BLOOD(Performed 05/13/2018) * CBC W AUTO DIFFERENTIAL(Performed 05/13/2018) * PT-INR [facility](Performed 05/13/2018) * PHOSPHORUS BLOOD(Performed 05/13/2018) * MAGNESIUM BLOOD(Performed 05/13/2018) * COMPREHENSIVE METABOLIC PANEL(Performed 05/13/2018) * LAB RESULTS ORDER(Performed 04/19/2018) * LAB RESULTS ORDER(Performed 04/03/2018) * LAB RESULTS ORDER(Performed 04/03/2018) * LAB RESULTS ORDER(Performed 04/03/2018) * LAB RESULTS ORDER(Performed 04/03/2018) * LAB RESULTS ORDER(Performed 04/03/2018) * MRI LUMBAR SPINE WO CONTRAST(Performed 12/11/2017) Performed for Infected prosthetic knee joint, 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[facility]), Streptococcal arthritis of left shoulder (HCC) * MRI THORACIC SPINE WO CONTRAST(Performed 12/11/2017) Performed for Infected prosthetic knee joint, 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[facility]), Streptococcal arthritis of left shoulder (HCC) * CREATININE BLOOD - POINT OF CARE (IP)(Performed 12/11/2017) Performed for Infected prosthetic knee joint, 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[facility]) * ERYTHROCYTE SEDIMENTATION RATE(Performed 11/08/2017) * LIPASE BLOOD(Performed 11/08/2017) * COMPREHENSIVE METABOLIC PANEL(Performed 11/08/2017) * CBC W AUTO DIFFERENTIAL(Performed 11/08/2017) * XR CHEST 2VW(Performed 11/08/2017) * LAB RESULTS ORDER(Performed 10/29/2017) * CARDIAC RHYTHM STRIP ORDER(Performed 10/29/2017) * URINALYSIS REFLEX MICROSCOPIC REFLEX CULTURE(Performed 10/25/2017) * CULTURE BLOOD(Performed 10/25/2017) * CBC W AUTO DIFFERENTIAL(Performed 10/25/2017) * MRI LUMBAR SPINE WWO CONTRAST(Performed 10/24/2017) Performed for Bacteremia, Acute low back pain, unspecified back pain laterality, with sciatica presence unspecified * CBC W AUTO DIFFERENTIAL(Performed 10/24/2017) * BASIC METABOLIC PANEL (CALCIUM TOTAL)(Performed 10/23/2017) * CBC W AUTO DIFFERENTIAL(Performed 10/23/2017) * CBC W AUTO DIFFERENTIAL(Performed 10/22/2017) * BASIC METABOLIC PANEL (CALCIUM TOTAL)(Performed 10/21/2017) * CBC W AUTO DIFFERENTIAL(Performed 10/21/2017) * CBC W AUTO DIFFERENTIAL(Performed 10/20/2017) * CULTURE BLOOD(Performed 10/20/2017) * CULTURE BLOOD(Performed 10/19/2017) * CK BLOOD(Performed 10/19/2017) * CBC W AUTO DIFFERENTIAL(Performed 10/19/2017) * BASIC METABOLIC PANEL (CALCIUM TOTAL)(Performed 10/19/2017) * CBC W AUTO DIFFERENTIAL(Performed 10/18/2017) * BASIC METABOLIC PANEL (CALCIUM TOTAL)(Performed 10/18/2017) * MRI SHOULDER LEFT WWO CONT(Performed 10/17/2017) Performed for Streptococcal arthritis of left shoulder (HCC) * HGB HCT PANEL(Performed 10/17/2017) * PREPARE RBC LEUKOREDUCED UNIT(Performed 10/17/2017) * TYPE + SCREEN PANEL(Performed 10/17/2017) * HGB HCT PANEL(Performed 10/17/2017) * COAGULATION PANEL W D-DIMER(Performed 10/17/2017) * PREPARE RBC LEUKOREDUCED UNIT(Performed 10/17/2017) * CBC W AUTO DIFFERENTIAL(Performed 10/17/2017) * BASIC METABOLIC PANEL (CALCIUM TOTAL)(Performed 10/17/2017) * HGB HCT PANEL(Performed 10/16/2017) * PT-INR(Performed 10/16/2017) * CBC W/O DIFFERENTIAL(Performed 10/16/2017) * ENDOTRACHEAL TUBE NOTE(Performed 10/16/2017) * REMOVAL DRUG DELIVERY IMPLANT(Performed 10/16/2017) Performed for Diagnosis unknown * ARTHROPLASTY TOTAL KNEE REVISION(Performed 10/16/2017) Performed for Diagnosis unknown * IRRIGATION AND DEBRIDEMENT KNEE WITH WOUND CLOSURE(Performed 10/16/2017) Performed for Diagnosis unknown * BASIC METABOLIC PANEL (CALCIUM TOTAL)(Performed 10/16/2017) * CBC W AUTO DIFFERENTIAL(Performed 10/16/2017) * GLUCOSE - POINT OF CARE(Performed 10/15/2017) * GLUCOSE - POINT OF CARE(Performed 10/15/2017) * BASIC METABOLIC PANEL (CALCIUM TOTAL)(Performed 10/15/2017) * CBC W AUTO DIFFERENTIAL(Performed 10/15/2017) * GLUCOSE - POINT OF CARE(Performed 10/14/2017) * GLUCOSE - POINT OF CARE(Performed 10/14/2017) * BASIC METABOLIC PANEL (CALCIUM TOTAL)(Performed 10/14/2017) * CBC W AUTO DIFFERENTIAL(Performed 10/14/2017) * GLUCOSE - POINT OF CARE(Performed 10/13/2017) * GLUCOSE - POINT OF CARE(Performed 10/13/2017) * TRANSFUSE RED BLOOD CELL LEUKOREDUCED UNIT(S)(Performed 10/13/2017) * GLUCOSE - POINT OF CARE(Performed 10/13/2017) * PREPARE RBC LEUKOREDUCED UNIT(Performed 10/13/2017) * GLUCOSE - POINT OF CARE(Performed 10/13/2017) * BASIC METABOLIC PANEL (CALCIUM TOTAL)(Performed 10/13/2017) * CBC W AUTO DIFFERENTIAL(Performed 10/13/2017) * GLUCOSE - POINT OF CARE(Performed 10/12/2017) * CULTURE FUNGUS OTHER+FUNGUS SMEAR(Performed 10/12/2017) Performed for Diagnosis unknown * CULTURE TISSUE+GRAM STAIN(Performed 10/12/2017) Performed for Diagnosis unknown * CULTURE AFB+SMEAR(Performed 10/12/2017) Performed for Diagnosis unknown * CULTURE ANAEROBE(Performed 10/12/2017) Performed for Diagnosis unknown * ENDOTRACHEAL TUBE NOTE(Performed 10/12/2017) * ARTHROSCOPY SHOULDER DEBRIDEMENT/SYNOVECTOMY/TENOTOMY(Performed 10/12/2017) Performed for Diagnosis unknown * GLUCOSE - POINT OF CARE(Performed 10/12/2017) * PT PTT PANEL(Performed 10/12/2017) * HIV-1 HIV-2 ANTIBODY + HIV P24 AG PANEL(Performed 10/12/2017) * BASIC METABOLIC PANEL (CALCIUM TOTAL)(Performed 10/12/2017) * CBC W AUTO DIFFERENTIAL(Performed 10/12/2017) * GLUCOSE - POINT OF CARE(Performed 10/11/2017) * CULTURE FUNGUS OTHER+FUNGUS SMEAR(Performed 10/11/2017) Performed for Diagnosis unknown * CULTURE WOUND+GRAM STAIN(Performed 10/11/2017) Performed for Diagnosis unknown * CULTURE AFB+SMEAR(Performed 10/11/2017) Performed for Diagnosis unknown * CULTURE ANAEROBE(Performed 10/11/2017) Performed for Diagnosis unknown * CULTURE FUNGUS OTHER+FUNGUS SMEAR(Performed 10/11/2017) Performed for Diagnosis unknown * CULTURE WOUND+GRAM STAIN(Performed 10/11/2017) Performed for Diagnosis unknown * CULTURE AFB+SMEAR(Performed 10/11/2017) Performed for Diagnosis unknown * CULTURE ANAEROBE(Performed 10/11/2017) Performed for Diagnosis unknown * ENDOTRACHEAL TUBE NOTE(Performed 10/11/2017) * PLACEMENT/CHANGE WOUND VAC(Performed 10/11/2017) Performed for Diagnosis unknown * IRRIGATION/DEBRIDEMENT KNEE WITH PLACEMENT ANTIBIOTIC BEAD/SPACER(Performed 10/11/2017) Performed for Diagnosis unknown * ARTHROTOMY KNEE WITH SYNOVECTOMY ANTERIOR OR POSTERIOR(Performed 10/11/2017) Performed for Diagnosis unknown * GLUCOSE - POINT OF CARE(Performed 10/11/2017) * TYPE + SCREEN PANEL(Performed 10/11/2017) * DIFFERENTIAL MANUAL(Performed 10/11/2017) * BASIC METABOLIC PANEL (CALCIUM TOTAL)(Performed 10/11/2017) * CBC W AUTO DIFFERENTIAL(Performed 10/11/2017) * PT-INR(Performed 10/11/2017) * GLUCOSE - POINT OF CARE(Performed 10/10/2017) * EKG 12-LEAD(Performed 10/10/2017) Performed for Bacteremia * US EXTREMITY LEFT LTD NONVASC(Performed 10/10/2017) Performed for Streptococcal arthritis of knee, unspecified laterality (HCC) * PT PTT PANEL(Performed 10/10/2017) Performed for 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, unspecified laterality (HCC) * ECHOCARDIOGRAM TRANSESOPHAGEAL(Performed 10/10/2017) Performed for Bacteremia * GLUCOSE - POINT OF CARE(Performed 10/10/2017) * DIFFERENTIAL MANUAL(Performed 10/10/2017) * CBC W AUTO DIFFERENTIAL(Performed 10/10/2017) * TSH REFLEX FREE T4(Performed 10/10/2017) * RENAL FUNCTION PANEL(Performed 10/10/2017) * MAGNESIUM BLOOD(Performed 10/10/2017) * GLUCOSE - POINT OF CARE(Performed 10/10/2017) * GLUCOSE - POINT OF CARE(Performed 10/10/2017) * GLUCOSE - POINT OF CARE(Performed 10/09/2017) * GLUCOSE - POINT OF CARE(Performed 10/09/2017) * TRANSFUSE RED BLOOD CELL LEUKOREDUCED UNIT(S)(Performed 10/09/2017) * CT CHEST ABDOMEN PELVIS W CONT(Performed 10/09/2017) Performed for 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, unspecified laterality (HCC) * GLUCOSE - POINT OF CARE(Performed 10/09/2017) * PREPARE RBC LEUKOREDUCED UNIT(Performed 10/09/2017) * TRANSFUSE RED BLOOD CELL LEUKOREDUCED UNIT(S)(Performed 10/09/2017) * GLUCOSE - POINT OF CARE(Performed 10/09/2017) * TYPE + SCREEN PANEL(Performed 10/09/2017) * PREPARE RBC LEUKOREDUCED UNIT(Performed 10/09/2017) * BLOOD TYPE VERIFICATION(Performed 10/09/2017) * DIFFERENTIAL MANUAL(Performed 10/09/2017) * FERRITIN(Performed 10/09/2017) * IRON + TRANSFERRIN PANEL(Performed 10/09/2017) * RENAL FUNCTION PANEL(Performed 10/09/2017) * MAGNESIUM BLOOD(Performed 10/09/2017) * CBC W AUTO DIFFERENTIAL(Performed 10/09/2017) * GLUCOSE - POINT OF CARE(Performed 10/08/2017) * GLUCOSE - POINT OF CARE(Performed 10/08/2017) * XR ABD OBSTRUCTION SERIES 2VW(Performed 10/08/2017) Performed for Ileus (HCC) * GLUCOSE - POINT OF CARE(Performed 10/08/2017) * ECHOCARDIOGRAM 2D WITH DOPPLER(Performed 10/08/2017) Performed for Bacteremia * GLUCOSE - POINT OF CARE(Performed 10/08/2017) * DIFFERENTIAL MANUAL(Performed 10/08/2017) * MAGNESIUM BLOOD(Performed 10/08/2017) * RENAL FUNCTION PANEL(Performed 10/08/2017) * CBC W AUTO DIFFERENTIAL(Performed 10/08/2017) * CULTURE VRE(Performed 10/08/2017) * CULTURE MRSA(Performed 10/08/2017) * CULTURE MRSA(Performed 10/08/2017) * CULTURE BLOOD(Performed 10/08/2017) * XR CHEST 1VW PORTABLE(Performed 10/07/2017) * CULTURE ANAEROBE(Performed 10/07/2017) * CULTURE AEROBIC(Performed 10/07/2017) * CULTURE ANAEROBE(Performed 10/07/2017) * CULTURE AEROBIC(Performed 10/07/2017) * CULTURE AEROBIC(Performed 10/07/2017) * CULTURE BLOOD(Performed 10/07/2017) * CULTURE BLOOD(Performed 10/07/2017) * PTT [facility](Performed 10/07/2017) * PT-INR [facility](Performed 10/07/2017) * DIFFERENTIAL MANUAL(Performed 10/07/2017) * CBC W AUTO DIFFERENTIAL(Performed 10/07/2017) * MAGNESIUM BLOOD(Performed 10/07/2017) * PHOSPHORUS BLOOD(Performed 10/07/2017) * COMPREHENSIVE METABOLIC PANEL(Performed 10/07/2017) * CBC W AUTO DIFFERENTIAL(Performed 10/07/2017) * CULTURE ANAEROBE(Performed 10/06/2017) * CULTURE ANAEROBE(Performed 10/06/2017) * CULTURE AEROBIC(Performed 10/06/2017) * CULTURE AEROBIC(Performed 10/06/2017) * CULTURE ANAEROBE(Performed 10/06/2017) * CULTURE AEROBIC(Performed 10/06/2017) * CULTURE ANAEROBE(Performed 10/06/2017) * CULTURE AEROBIC(Performed 10/06/2017) * PATHOLOGY SMEAR BODY FLUID(Performed 10/06/2017) * PATHOLOGY SMEAR BODY FLUID(Performed 10/06/2017) * CRYSTAL INDENTIFICATION SYNOVIAL FLUID(Performed 10/06/2017) * CRYSTAL INDENTIFICATION SYNOVIAL FLUID(Performed 10/06/2017) * CELL COUNT W DIFF W CRYSTALS SYNOVIAL(Performed 10/06/2017) * CELL COUNT W DIFF W CRYSTALS SYNOVIAL(Performed 10/06/2017) * DIFFERENTIAL MANUAL FLUID(Performed 10/06/2017) * DIFFERENTIAL MANUAL FLUID(Performed 10/06/2017) * CELL COUNT W DIFF W CRYSTALS SYNOVIAL(Performed 10/06/2017) * CELL COUNT W DIFF W CRYSTALS SYNOVIAL(Performed 10/06/2017) * CULTURE ANAEROBE(Performed 10/06/2017) * CULTURE AEROBIC(Performed 10/06/2017) * CROSSMATCH RBC LEUKOREDUCED(Performed 10/06/2017) * TYPE + SCREEN PANEL(Performed 10/06/2017) * DIFFERENTIAL MANUAL(Performed 10/06/2017) * CBC W AUTO DIFFERENTIAL(Performed 10/06/2017) * HISTONE ANTIBODY(Performed 10/06/2017) * BETA-2 GLYCOPROTEIN 1 ANTIBODY IGA(Performed 10/06/2017) * BETA-2 GLYCOPROTEIN 1 ANTIBODY IGM(Performed 10/06/2017) * BETA-2 GLYCOPROTEIN 1 ANTIBODY IGG(Performed 10/06/2017) * PROTEIN ELECTROPHORESIS WO INTERP BLOOD(Performed 10/06/2017) * CARDIOLIPIN ANTIBODY IGA(Performed 10/06/2017) * CARDIOLIPIN ANTIBODY IGG(Performed 10/06/2017) * CARDIOLIPIN ANTIBODY IGM(Performed 10/06/2017) * LUPUS ANTICOAGULANT PANEL(Performed 10/06/2017) * ANGIOTENSIN CONVERTING ENZYME BLOOD(Performed 10/06/2017) * ALDOLASE(Performed 10/06/2017) * CHROMATIN ANTIBODY(Performed 10/06/2017) * RIBOSOMAL P PROTEIN ANTIBODY(Performed 10/06/2017) * RPR(Performed 10/06/2017) * SCLERODERMA 70 (SCL) ANTIBODY(Performed 10/06/2017) * CABLE TELEVISION INSTALLER ANTIBODY(Performed 10/06/2017) * TEIXEIRA (SM) ANTIBODY GIAN(Performed 10/06/2017) * SS-B (SJOGREN'S) ANTIBODY(Performed 10/06/2017) * SS-A (SJOGREN'S) ANTIBODY(Performed 10/06/2017) * CBC W AUTO DIFFERENTIAL(Performed 10/06/2017) * PTT [facility]H(Performed 10/06/2017) * LDH BLOOD(Performed 10/06/2017) * MAGNESIUM BLOOD(Performed 10/06/2017) * PHOSPHORUS BLOOD(Performed 10/06/2017) * COMPREHENSIVE METABOLIC PANEL(Performed 10/06/2017) * PT-INR [facility](Performed 10/06/2017) * MRI THORACIC SPINE WWO CONT(Performed 10/06/2017) * MRI LUMBAR SPINE WWO CONTRAST(Performed 10/06/2017) * MRI CERVICAL SPINE WWO CONT(Performed 10/06/2017) * CULTURE ANAEROBE(Performed 10/05/2017) * CULTURE ANAEROBE(Performed 10/05/2017) * CULTURE AEROBIC(Performed 10/05/2017) * PATHOLOGY SMEAR BODY FLUID(Performed 10/05/2017) * PATHOLOGY SMEAR BODY FLUID(Performed 10/05/2017) * CRYSTAL INDENTIFICATION SYNOVIAL FLUID(Performed 10/05/2017) * CRYSTAL INDENTIFICATION SYNOVIAL FLUID(Performed 10/05/2017) * CELL COUNT W DIFF W CRYSTALS SYNOVIAL(Performed 10/05/2017) * CELL COUNT W DIFF W CRYSTALS SYNOVIAL(Performed 10/05/2017) * DIFFERENTIAL MANUAL FLUID(Performed 10/05/2017) * DIFFERENTIAL MANUAL FLUID(Performed 10/05/2017) * CELL COUNT W DIFF W CRYSTALS SYNOVIAL(Performed 10/05/2017) * CELL COUNT W DIFF W CRYSTALS SYNOVIAL(Performed 10/05/2017) * CULTURE AEROBIC(Performed 10/05/2017) * XR CERVICAL SPINE 2 OR 3VW(Performed 10/05/2017) * XR SHOULDER LEFT 2VW OR MORE(Performed 10/05/2017) * XR KNEE RIGHT 2VW OR LESS(Performed 10/05/2017) * XR KNEE LEFT 2VW OR LESS(Performed 10/05/2017) * XR CHEST 1VW(Performed 10/05/2017) * XR ELBOW RIGHT 3VW OR MORE(Performed 10/05/2017) * XR ELBOW LEFT 2VW(Performed 10/05/2017) * DNA ANTIBODY DOUBLE STRANDED(Performed 10/05/2017) * COMPLEMENT C4(Performed 10/05/2017) * COMPLEMENT C3(Performed 10/05/2017) * XR PELVIS W LEFT HIP 2VW(Performed 10/05/2017) * INFLUENZA A+B PCR(Performed 10/05/2017) * LACTIC ACID BLOOD(Performed 10/05/2017) * HEPATIC FUNCTION PANEL(Performed 10/05/2017) * BASIC METABOLIC PANEL (CALCIUM TOTAL)(Performed 10/05/2017) * LACTIC ACID BLOOD(Performed 10/05/2017) * CULTURE URINE(Performed 10/05/2017) * CULTURE BLOOD(Performed 10/05/2017) * ORGANISM ID REFLEXED(Performed 10/05/2017) * CULTURE BLOOD(Performed 10/05/2017) * URINALYSIS W/MICROSCOPIC NO CULTURE(Performed 10/05/2017) * DIFFERENTIAL MANUAL(Performed 10/05/2017) * CBC W AUTO DIFFERENTIAL(Performed 10/05/2017) * ERYTHROCYTE SEDIMENTATION RATE(Performed 10/05/2017) * CK + CKMB PANEL(Performed 10/05/2017) * C-REACTIVE PROTEIN(Performed 10/05/2017) * LIPASE BLOOD(Performed 10/05/2017) * HCG URINE QUALITATIVE - POCT (IP) [facility](Performed 10/05/2017) * CBC W AUTO DIFFERENTIAL(Performed 10/05/2017) * HCG URINE QUALITATIVE - POCT (IP) [facility](Performed 10/05/2017) * EKG 12-LEAD(Performed 10/05/2017) * VITAMIN D 25-HYDROXY(Performed 09/11/2017) * TSH(Performed 09/11/2017) * LIPID PROFILE(Performed 09/11/2017) * C-REACTIVE PROTEIN(Performed 08/29/2017) * COMPREHENSIVE METABOLIC PANEL(Performed 08/29/2017) * LIPASE BLOOD(Performed 08/29/2017) * CBC W AUTO DIFFERENTIAL(Performed 08/29/2017) * CBC W AUTO DIFFERENTIAL(Performed 08/29/2017) * VAS RIGHT VENOUS DUPLEX UE(Performed 08/29/2017) * XR CHEST 2VW(Performed 08/29/2017) * LAB HISTORICAL RESULTS-ONBASE(Performed 08/22/2017) * LAB HISTORICAL RESULTS-ONBASE(Performed 08/15/2017) * LAB HISTORICAL RESULTS-ONBASE(Performed 08/15/2017) * CBC W AUTO DIFFERENTIAL(Performed 08/01/2017) * CBC W AUTO DIFFERENTIAL(Performed 08/01/2017) * C-REACTIVE PROTEIN(Performed 08/01/2017) * CBC W/O DIFFERENTIAL(Performed 07/29/2017) * BASIC METABOLIC PANEL (CALCIUM TOTAL)(Performed 07/29/2017) * MAGNESIUM BLOOD(Performed 07/29/2017) * VANCOMYCIN LEVEL TROUGH(Performed 07/29/2017) * MAGNESIUM BLOOD(Performed 07/28/2017) * CBC W/O DIFFERENTIAL(Performed 07/28/2017) * MAGNESIUM BLOOD(Performed 07/27/2017) * CBC W/O DIFFERENTIAL(Performed 07/27/2017) * CULTURE FUNGUS OTHER+FUNGUS SMEAR(Performed 07/26/2017) * CULTURE AFB+SMEAR(Performed 07/26/2017) * DIFFERENTIAL MANUAL(Performed 07/26/2017) * CBC W AUTO DIFFERENTIAL(Performed 07/26/2017) * CBC W AUTO DIFFERENTIAL(Performed 07/26/2017) * PHOSPHORUS BLOOD(Performed 07/26/2017) * MAGNESIUM BLOOD(Performed 07/26/2017) * CULTURE ANAEROBE(Performed 07/25/2017) * CULTURE AEROBIC(Performed 07/25/2017) * CULTURE AEROBIC(Performed 07/25/2017) * CULTURE ANAEROBE(Performed 07/25/2017) * VANCOMYCIN LEVEL TROUGH(Performed 07/25/2017) * CBC W AUTO DIFFERENTIAL(Performed 07/25/2017) * CREATININE BLOOD(Performed 07/25/2017) * PHOSPHORUS BLOOD(Performed 07/25/2017) * MAGNESIUM BLOOD(Performed 07/25/2017) * CBC W AUTO DIFFERENTIAL(Performed 07/25/2017) * CT ELBOW RIGHT W CONTRAST(Performed 07/24/2017) * XR WRIST RIGHT 3VW OR MORE(Performed 07/24/2017) * C-REACTIVE PROTEIN(Performed 07/24/2017) * KATHY STAINING PATTERNS REFLEXED(Performed 07/24/2017) * JENNIFER BLOOD SCREEN W/REFLEX TITER(Performed 07/24/2017) * DIFFERENTIAL MANUAL(Performed 07/24/2017) * ERYTHROCYTE SEDIMENTATION RATE(Performed 07/24/2017) * CBC W AUTO DIFFERENTIAL(Performed 07/24/2017) * PHOSPHORUS BLOOD(Performed 07/24/2017) * MAGNESIUM BLOOD(Performed 07/24/2017) * CBC W AUTO DIFFERENTIAL(Performed 07/24/2017) * PHOSPHORUS BLOOD(Performed 07/23/2017) * MAGNESIUM BLOOD(Performed 07/23/2017) * CBC W AUTO DIFFERENTIAL(Performed 07/23/2017) * CBC W AUTO DIFFERENTIAL(Performed 07/23/2017) * EKG 12-LEAD(Performed 07/23/2017) * VANCOMYCIN LEVEL TROUGH(Performed 07/22/2017) * CBC W AUTO DIFFERENTIAL(Performed 07/22/2017) * PHOSPHORUS BLOOD(Performed 07/22/2017) * MAGNESIUM BLOOD(Performed 07/22/2017) * CBC W AUTO DIFFERENTIAL(Performed 07/22/2017) * VANCOMYCIN LEVEL TROUGH(Performed 07/21/2017) * CBC W AUTO DIFFERENTIAL(Performed 07/21/2017) * PHOSPHORUS BLOOD(Performed 07/21/2017) * MAGNESIUM BLOOD(Performed 07/21/2017) * CBC W AUTO DIFFERENTIAL(Performed 07/21/2017) * XR ELBOW RIGHT 2VW(Performed 07/20/2017) * CULTURE URINE(Performed 07/20/2017) * URINALYSIS W/MICROSCOPIC NO CULTURE(Performed 07/20/2017) * CULTURE BLOOD(Performed 07/20/2017) * BASIC METABOLIC PANEL (CALCIUM TOTAL)(Performed 07/20/2017) * ERYTHROCYTE SEDIMENTATION RATE(Performed 07/20/2017) * PHOSPHORUS BLOOD(Performed 07/20/2017) * MAGNESIUM BLOOD(Performed 07/20/2017) * C-REACTIVE PROTEIN(Performed 07/20/2017) * PT-INR [facility](Performed 07/20/2017) * URINALYSIS REFLEX TO MICROSCOPIC NO CULTURE(Performed 05/03/2017) * ALDOLASE(Performed 05/03/2017) * JENNIFER BLOOD SCREEN W/REFLEX TITER(Performed 05/03/2017) * DNA ANTIBODY DOUBLE STRANDED(Performed 05/03/2017) * VITAMIN D 25-HYDROXY(Performed 05/03/2017) * ERYTHROCYTE SEDIMENTATION RATE(Performed 05/03/2017) * C-REACTIVE PROTEIN(Performed 05/03/2017) * COMPLEMENT C4(Performed 05/03/2017) * COMPLEMENT C3(Performed 05/03/2017) * LDH BLOOD(Performed 05/03/2017) * CK BLOOD(Performed 05/03/2017) * COMPREHENSIVE METABOLIC PANEL(Performed 05/03/2017) * CBC W AUTO DIFFERENTIAL(Performed 05/03/2017) * CBC W AUTO DIFFERENTIAL(Performed 05/03/2017) * PATHOLOGY TISSUE(Performed 01/01/2017) * KATHY STAINING PATTERNS REFLEXED(Performed 12/25/2016) * HISTONE ANTIBODY(Performed 12/25/2016) * DNA ANTIBODY DS CRITHIDIA TITER(Performed 12/25/2016) * TEIXEIRA (SM) ANTIBODY GIAN(Performed 12/25/2016) * SS-B (SJOGREN'S) ANTIBODY(Performed 12/25/2016) * SS-A (SJOGREN'S) ANTIBODY(Performed 12/25/2016) * CABLE TELEVISION INSTALLER ANTIBODY(Performed 12/25/2016) * DNA ANTIBODY DOUBLE STRANDED(Performed 12/25/2016) * JENNIFER BLOOD SCREEN W/REFLEX TITER(Performed 12/25/2016) * CHROMATIN ANTIBODY(Performed 12/25/2016) * VITAMIN D 25-HYDROXY(Performed 12/25/2016) * ERYTHROCYTE SEDIMENTATION RATE(Performed 12/25/2016) * C-REACTIVE PROTEIN(Performed 12/25/2016) * COMPLEMENT C4(Performed 12/25/2016) * COMPLEMENT C3(Performed 12/25/2016) * URINALYSIS REFLEX TO MICROSCOPIC NO CULTURE(Performed 12/25/2016) * CULTURE URINE(Performed 12/25/2016) * TSH(Performed 12/21/2016) * FERRITIN(Performed 12/21/2016) * COMPREHENSIVE METABOLIC PANEL(Performed 12/21/2016) * CBC W/O DIFFERENTIAL(Performed 12/21/2016) * URINALYSIS W/MICROSCOPIC NO CULTURE(Performed 12/27/2015) * RIBOSOMAL P PROTEIN ANTIBODY(Performed 12/27/2015) * CHROMATIN ANTIBODY(Performed 12/27/2015) * COMPLEMENT TOTAL(Performed 12/27/2015) * JENNIFER W/REFLEX IFA PATTERN(Performed 12/27/2015) * ERYTHROCYTE SEDIMENTATION RATE(Performed 12/27/2015) * HEPATITIS C ANTIBODY(Performed 12/27/2015) * COMPLEMENT C4(Performed 12/27/2015) * COMPLEMENT C3(Performed 12/27/2015) * COMPREHENSIVE METABOLIC PANEL(Performed 12/27/2015) * PHOSPHORUS BLOOD(Performed 12/27/2015) * MAGNESIUM BLOOD(Performed 12/27/2015) * IGG BLOOD(Performed 12/27/2015) * IGM BLOOD(Performed 12/27/2015) * IGA BLOOD(Performed 12/27/2015) * C-REACTIVE PROTEIN(Performed 12/27/2015) * CBC W AUTO DIFFERENTIAL(Performed 12/27/2015) * CBC W AUTO DIFFERENTIAL(Performed 12/27/2015) * PROTEIN ELECTROPHORESIS WO INTERP BLOOD(Performed 08/23/2015) * DNA ANTIBODY DS CRITHIDIA TITER(Performed 08/23/2015) * IMMUNOFIXATION BLOOD(Performed 08/23/2015) * TISSUE TRANSGLUTAMINASE AB IGG(Performed 08/23/2015) * TISSUE TRANSGLUTAMINASE AB IGA(Performed 08/23/2015) * THYROGLOBULIN ANTIBODY(Performed 08/23/2015) * DNA ANTIBODY DOUBLE STRANDED(Performed 08/23/2015) * JENNIFER W/REFLEX IFA PATTERN(Performed 08/23/2015) * CABLE TELEVISION INSTALLER ANTIBODY(Performed 08/23/2015) * SS-A (SJOGREN'S) ANTIBODY(Performed 08/23/2015) * SS-B (SJOGREN'S) ANTIBODY(Performed 08/23/2015) * TEIXEIRA (SM) ANTIBODY GIAN(Performed 08/23/2015) * THYROID PEROXIDASE ANTIBODY(Performed 08/23/2015) * T4 FREE(Performed 08/23/2015) * TSH(Performed 08/23/2015) * VITAMIN D 25-HYDROXY(Performed 08/23/2015) * IGG BLOOD(Performed 08/23/2015) * IGA BLOOD(Performed 08/23/2015) * IGM BLOOD(Performed 08/23/2015) * C-REACTIVE PROTEIN(Performed 08/23/2015) * COMPREHENSIVE METABOLIC PANEL(Performed 08/23/2015) * ERYTHROCYTE SEDIMENTATION RATE(Performed 08/23/2015) * CBC W AUTO DIFFERENTIAL(Performed 08/23/2015) * JENNIFER BLOOD SCREEN W/REFLEX TITER(Performed 08/23/2015) * CBC W AUTO DIFFERENTIAL(Performed 08/23/2015) * KATHY STAINING PATTERNS REFLEXED(Performed 04/05/2015) * DNA ANTIBODY DOUBLE STRANDED(Performed 04/05/2015) * TEIXEIRA (SM) ANTIBODY GIAN(Performed 04/05/2015) * SS-B (SJOGREN'S) ANTIBODY(Performed 04/05/2015) * SS-A (SJOGREN'S) ANTIBODY(Performed 04/05/2015) * DNA ANTIBODY DS CRITHIDIA TITER(Performed 04/05/2015) * ALDOLASE(Performed 04/05/2015) * COMPLEMENT TOTAL(Performed 04/05/2015) * JENNIFER BLOOD SCREEN W/REFLEX TITER(Performed 04/05/2015) * RIBOSOMAL P PROTEIN ANTIBODY(Performed 04/05/2015) * BETA-2 GLYCOPROTEIN 1 ANTIBODY IGM(Performed 04/05/2015) * BETA-2 GLYCOPROTEIN 1 ANTIBODY IGG(Performed 04/05/2015) * CARDIOLIPIN ANTIBODY IGM(Performed 04/05/2015) * CARDIOLIPIN ANTIBODY IGG(Performed 04/05/2015) * ERYTHROCYTE SEDIMENTATION RATE(Performed 04/05/2015) * CYCLIC CITRULLINATED PEPTIDE(CCP) AB IGG(Performed 04/05/2015) * AURELIANO VIPER VENOM DILUTE(Performed 04/05/2015) * RHEUMATOID FACTOR BLOOD QUANTITATIVE(Performed 04/05/2015) * IGG BLOOD(Performed 04/05/2015) * COMPLEMENT C4(Performed 04/05/2015) * COMPLEMENT C3(Performed 04/05/2015) * COMPREHENSIVE METABOLIC PANEL(Performed 04/05/2015) * PTT SLH(Performed 04/05/2015) * C-REACTIVE PROTEIN(Performed 04/05/2015) * IGM BLOOD(Performed 04/05/2015) * IGA BLOOD(Performed 04/05/2015) * URINALYSIS W/MICROSCOPIC NO CULTURE(Performed 04/05/2015) * CBC W AUTO DIFFERENTIAL(Performed 04/05/2015) * CBC W AUTO DIFFERENTIAL(Performed 04/05/2015) * URINALYSIS REFLEX TO MICROSCOPIC NO CULTURE(Performed 07/24/2014) * DRUG ABUSE PANEL 10-20+ETHANOL URINE NO CONFIRM(Performed 07/24/2014) * PT-INR [facility](Performed 07/24/2014) * CK + CKMB PANEL(Performed 07/24/2014) * TROPONIN I(Performed 07/24/2014) * ALCOHOL ETHYL BLOOD(Performed 07/24/2014) * COMPREHENSIVE METABOLIC PANEL(Performed 07/24/2014) * CBC W AUTO DIFFERENTIAL(Performed 07/24/2014) * CBC W AUTO DIFFERENTIAL(Performed 07/24/2014) * CT HEAD WO CONTRAST(Performed 07/24/2014) * EKG 12-LEAD(Performed 07/24/2014) * PATHOLOGY TISSUE(Performed 04/07/2013) * PATHOLOGY TISSUE(Performed 04/07/2013) * MRI PELVIS WWO CONTRAST(Performed 03/17/2013) * MRI ABDOMEN WWO CONTRAST(Performed 03/17/2013) * CREATININE BLOOD - POCT (IP) [facility](Performed 09/03/1998) Results * (ABNORMAL) URINALYSIS W/MICROSCOPIC REFLEX TO CULTURE (09/17/2024 12:11 PM MANAGER WOUND CARE) Only the most recent of2 resultswithin the time period is included. Color UA Delilah(A) Straw, Yellow 09/17/2024 12:45 PM MANAGER WOUND CARE [facility] Clarity UA t Cloudy(A) Clear 09/17/2024 12:45 PM [facility] Specific Mcloud UA 1.032(H) 1.005 - 1.030 09/17/2024 12:45 PM [facility] pH UA 5.0 5.0 - 8.0 pH 09/17/2024 12:45 PM [facility] Protein UA Negative Negative 09/17/2024 12:45 PM [facility] Glucose UA Negative Negative 09/17/2024 12:45 PM [facility] Ketone UA Negative Negative 09/17/2024 12:45 PM [facility] Bilirubin UA Negative Negative 09/17/2024 12:45 PM [facility] Blood UA Negative Negative 09/17/2024 12:45 PM [facility] Nitrite UA Negative Negative 09/17/2024 12:45 PM [facility] Leukocyte Esterase 1+(A) Negative 09/17/2024 12:45 PM [facility] Urobilinogen UA Negative Negative mg/dL 09/17/2024 12:45 PM [facility] RBC UA 3-5 None Seen, 0-2, 3-5 /HPF 09/17/2024 12:45 PM [facility] WBC UA 11-20(A) None Seen, 0-5 /HPF 09/17/2024 12:45 PM [facility] Bacteria UA Trace(A) None /HPF 09/17/2024 12:45 PM [facility] Squamous Epithelial Cells UA >20(A) None Seen, 0-2, 3-5 /HPF 09/17/2024 12:45 PM [facility] Mucus UA 4+ /LPF 09/17/2024 12:45 PM [facility] Hyaline Casts UA 6-10(A) None Seen, 0-2 /LPF 09/17/2024 12:45 PM [facility] Urine URINE SPECIMEN OBTAINED BY CLEAN CATCH PROCEDURE / Unknown Collection / Unknown 09/17/2024 12:11 PM MANAGER WOUND CARE 09/17/2024 12:24 PM [facility] - 09/17/2024 12:45 PM MANAGER WOUND CARE Lab Status, Culture Reflex Indicated. Ev Lowery MD LAB - URINALYSIS ORD ERABLES [facility] [address] [place] [address], [facility] [phone] * (ABNORMAL) CULTURE URINE (09/17/2024 12:11 PM MANAGER WOUND CARE) Only the most recent of6 resultswithin the time period is included. Culture Urine 50,000-100,000 CFU/mL Streptococcus agalactiae (Group B)(A) 09/19/2024 2:45 AM MANAGER WOUND CARE [facility] Culture Urine <10,000 CFU/mL urogenital isabell 09/19/2024 2:45 AM MANAGER WOUND CARE [facility] Urine URINE SPECIMEN OBTAINED BY CLEAN CATCH PROCEDURE / Unknown Collection / Unknown 09/17/2024 12:11 PM MANAGER WOUND CARE 09/17/2024 12:45 PM MANAGER WOUND CARE Narrative [facility] - 09/19/2024 2:45 AM MANAGER WOUND CARE Susceptibility testing of penicillin, other beta-lactam antibiotics, and vancomycin is not necessary for beta-hemolytic streptococci groups A,B,C and G because resistant strains have not been recognized. Ev Lowery MD LAB - MICROBIOLOGY O RDERABLES Performing Organization Address City/[facility]/ZIP Co de Phone Number [facility] [address] [place], [place] [address] [phone] * PROTEIN CREATININE RATIO URINE RANDOM PNL (09/17/2024 12:11 PM MANAGER WOUND CARE) Only the most recent of2 resultswithin the time period is included. Protein Urine 28 Not Established mg/dL 09/17/2024 1:06 PM MANAGER WOUND CARE [facility] Creatinine Urine 373.79 Not Established mg/dL 09/17/2024 1:06 PM MANAGER WOUND CARE [facility] Protein/Creati nine Ratio Urine 0.07 <0.10 09/17/2024 1:06 PM MANAGER WOUND CARE [facility] Urine URINE SPECIMEN OBTAINED BY CLEAN CATCH PROCEDURE / Unknown Collection / Unknown 09/17/2024 12:11 PM MANAGER WOUND CARE 09/17/2024 12:24 PM MANAGER WOUND CARE Ev Lowery MD LAB - URINE CHEMISTR Y ORDERABLES [address] [address], [facility] [phone] * DNA ANTIBODY DS CRITHIDIA TITER (09/17/2024 12:09 PM MANAGER WOUND CARE) Only the most recent of5 resultswithin the time period is included. dsDNA Antibody IgG <1:10 <1:10 2024 6:12 AM MANAGER WOUND CARE [facility] [employer] ([facility]) Comment: INTERPRETIVE INFORMATION: Double-Stranded DNA (dsDNA) Antibody, [...] recommendations for testing may be found at [email or web address]. Performed By: [facility] [address] [place] [address] Prosthetics Technician: Bogdan Garcia MD, PhD CLIA Number: [id number] Blood BLOOD SPECIMEN / Unknown Lab Venipuncture / Unknown 09/17/2024 12:09 PM MANAGER WOUND CARE 09/17/2024 12:24 PM MANAGER WOUND CARE Ev Lowery MD LAB - SEROLOGY ORDER SUSANNE [employer] [facility]) [address] * DNA ANTIBODY DOUBLE STRANDED (09/17/2024 12:09 PM MANAGER WOUND CARE) Only the most recent of8 resultswithin the time period is included. dsDNA Antibody 4 0 - 24 IU 09/19/2024 8:29 PM MANAGER WOUND CARE [facility] [employer] ([facility]) Comment: INTERPRETIVE INFORMATION: Double-Stranded DNA (dsDNA) Ab IgG JOAQUÍN ??24 IU or less........Negative ??25-30 IU.............Borderline Positive ??30-60 IU.............Low Positive ??60-200 IU............Positive ??201 IU or greater....Strong Positive Positivity for anti-double stranded DNA (anti-dsDNA) IgG antibody is a diagnostic criterion of systemic lupus erythematosus (SLE). Specimens are initially screened by enzyme-linked immunosorbent assay (JOAQUÍN). If ordered as reflex ([id number]), positive JOAQUÍN results (>24 IU) will be [...] recommendations for testing may be found at [email or web address]. Performed By: [facility] [address] [place] [address] Prosthetics Technician: Bogdan Garcia MD, PhD CLIA Number: [id number] Blood BLOOD SPECIMEN / Unknown Lab Venipuncture / Unknown 09/17/2024 12:09 PM MANAGER WOUND CARE 09/17/2024 12:24 PM MANAGER WOUND CARE Ev Lowery MD LAB - HEMATOLOGY ORD ERABLES [facility] [employer] [facility]) [address] * (ABNORMAL) CBC WITH DIFFERENTIAL (09/17/2024 12:09 PM MANAGER WOUND CARE) Only the most recent of70 resultswithin the time period is included. [facility] WBC 4.9 4.0 - 10.7 x10E9/L 09/17/2024 12:35 PM [facility] RBC Count 4.85 3.90 - 5.20 x10E12/L 09/17/2024 12:35 PM [facility] Hemoglobin 13.2 11.9 - 15.8 g/dL 09/17/2024 12:35 PM [facility] Hematocrit 40.4 34.8 - 46.1 % 09/17/2024 12:35 PM [facility] MCV 83.3 80.0 - 98.0 fL 09/17/2024 12:35 PM [facility] MCH 27.2 26.7 - 33.6 pg 09/17/2024 12:35 PM [facility] MCHC 32.7 31.7 - 36.3 g/dL 09/17/2024 12:35 PM [facility] RDW-CV 15.5(H) 11.3 - 14.8 % 09/17/2024 12:35 PM [facility] Platelet Count 291 150 - 420 x10E9/L 09/17/2024 12:35 PM [facility] MPV 8.6 7.8 - 11.4 fL 09/17/2024 12:35 PM [facility] Neutrophil % 54.0 41.0 - 74.0 % 09/17/2024 12:35 PM [facility] Lymphocyte % 35.9 17.0 - 47.0 % 09/17/2024 12:35 PM [facility] Monocyte % 6.5 3.0 - 11.0 % 09/17/2024 12:35 PM [facility] Eosinophil % 2.8 0.0 - 7.0 % 09/17/2024 12:35 PM [facility] Basophil % 0.4 0.0 - 1.6 % 09/17/2024 12:35 PM [facility] Immature Granulocytes % 0.4 0.0 - 1.0 % 09/17/2024 12:35 PM [facility] Neutrophil Absolute 2.66 1.60 - 7.50 x10E9/L 09/17/2024 12:35 PM [facility] Lymphocyte Absolute 1.77 1.00 - 4.40 x10E9/L 09/17/2024 12:35 PM [facility] Monocyte Absolute 0.32 0.15 - 1.00 x10E9/L 09/17/2024 12:35 PM [facility] Eosinophil Absolute 0.14 0.00 - 0.60 x10E9/L 09/17/2024 12:35 PM [facility] Basophil Absolute 0.02 0.00 - 0.13 x10E9/L 09/17/2024 12:35 PM [facility] Blood BLOOD SPECIMEN / Unknown Lab Venipuncture / Unknown 09/17/2024 12:09 PM MANAGER WOUND CARE 09/17/2024 12:29 PM [facility] Ev Lowery MD LAB - HEMATOLOGY ORD ERABLES [facility] [address] [place] [address], [facility] [phone] * (ABNORMAL) COMPREHENSIVE METABOLIC PANEL (09/17/2024 12:09 PM [facility]) Only the most recent of25 resultswithin the time period is included. BUN 17 7 - 26 mg/dL 09/17/2024 1:09 PM [facility] Creatinine 1.03(H) 0.56 - 0.96 mg/dL 09/17/2024 1:09 PM [facility] Sodium 139 136 - 145 mmol/L 09/17/2024 1:09 PM [facility] Potassium 3.9 3.5 - 4.5 mmol/L 09/17/2024 1:09 PM [facility] Chloride 103 98 - 107 mmol/L 09/17/2024 1:09 PM [facility] CO2 24 22 - 29 mmol/L 09/17/2024 1:09 PM [facility] Glucose 98 70 - 99 mg/dL 09/17/2024 1:09 PM [facility] Calcium 9.4 8.4 - 10.2 mg/dL 09/17/2024 1:09 PM [facility] Protein Total 8.2 6.0 - 8.3 g/dL 09/17/2024 1:09 PM [facility] Albumin 4.1 3.4 - 5.0 g/dL 09/17/2024 1:09 PM [facility] Bilirubin Total 0.4 0.2 - 1.2 mg/dL 09/17/2024 1:09 PM [facility] Alkaline Phosphatase 82 40 - 150 U/L 09/17/2024 1:09 PM [facility] ALT 30 5 - 55 U/L 09/17/2024 1:09 PM [facility] AST 32 5 - 34 U/L 09/17/2024 1:09 PM [facility] Anion Gap 12 6 - 16 09/17/2024 1:09 PM [facility] BUN/Creatinine Ratio 17 7 - 23 09/17/2024 1:09 PM [facility] Osmolality Calculated 290 275 - 295 mOsm/kg 09/17/2024 1:09 PM [facility] Albumin/Globulin Ratio 1.0(L) 1.1 - 2.3 09/17/2024 1:09 PM [facility] eGFR by CKD-EPI 64(L) >=90 mL/min/1.7 3 m2 09/17/2024 1:09 PM [facility] Blood BLOOD SPECIMEN / Unknown Lab Venipuncture / Unknown 09/17/2024 12:09 PM MANAGER WOUND CARE 09/17/2024 12:29 PM MANAGER WOUND CARE Ev Lowery MD LAB - CHEMISTRY [facility] Organization Address City/State/ZIP Co de Phone Number [facility] [address] [place] [address], [facility] [phone] * XR Calcaneus Left 2Vw or More (05/08/2024 12:56 PM CDT) Only the most recent of9 resultswithin the time period is included. Anatomical Region Laterality Modality Lower Extremity, Ankle / Foot Ra diographic Imaging 05/08/2024 2:06 PM CDT Impressions 05/08/2024 2:55 PM CDT IMPRESSION: Unchanged alignment. Report dictated by Ramos Galvez MD (residential sales). ICam MD have personally reviewed and interpreted this examination/study. > Interpreting Provider: Cam Nance MD on 05/08/2024 2:55 PM Narrative 05/08/2024 2:55 PM CDT PROCEDURE: ??XR FOOT LEFT WT BEARING 3VW, XR CALCANEUS LEFT 2VW OR MORE, DATE/TIME OF EXAM: ??05/08/2024 12:56 PM, LOCATION ??[facility] INDICATION: Z47.89: Orthopedic aftercare ADDITIONAL CLINICAL INFORMATION: Ordering Provider Reason For Exam: ??post op f/u COMPARISON: None. FINDINGS: Left foot: Redemonstration of postsurgical changes of screw and plate fixation of the first tarsometatarsal joint. Hardware is intact. Osseous alignment is unchanged. No acute fracture or dislocation. Diffuse osteopenia. No soft tissue swelling. Left calcaneus: Redemonstration of postoperative changes from calcaneal osteotomy with screw fixation. Hardware is intact. Osseous alignment is unchanged. No soft tissue swelling. Procedure Note Cam Nance MD - 05/08/2024 PROCEDURE: XR FOOT LEFT WT BEARING 3VW, XR CALCANEUS LEFT 2VW OR MORE, DATE/TIME OF EXAM: 05/08/2024 12:56 PM, LOCATION [facility] INDICATION: Z47.89: Orthopedic aftercare ADDITIONAL CLINICAL INFORMATION: Ordering Provider Reason For Exam: post op f/u COMPARISON: None. FINDINGS: Left foot: Redemonstration of postsurgical changes of screw and plate fixation ofthe first tarsometatarsal joint. Hardware is intact. Osseous alignment is unchanged. No acute fracture or dislocation. Diffuse osteopenia. No soft tissue swelling. Left calcaneus: Redemonstration of postoperative changes from calcaneal osteotomy with screw fixation. Hardware is intact. Osseous alignment is unchanged. Nosoft tissue swelling. IMPRESSION: Unchanged alignment. Report dictated by Ramos Galvez MD (residential sales). I, Cam Nance MD have personally reviewed and interpreted this examination/study. > Interpreting Provider: Cam Nance MD on 05/08/2024 2:55PM Jace Muller MD DIAGNOSTIC IMAGING O RDERABLES * XR Foot Left Wt Bearing 3Vw (05/08/2024 12:56 PM CDT) Only the most recent of6 resultswithin the time period is included. Anatomical Region Laterality Modality Ankle / Foot Radiographic Gely ging 05/08/2024 2:06 PM CDT Impressions 05/08/2024 2:55 PM CDT IMPRESSION: Unchanged alignment. Report dictated by Ramos aGlvez MD (residential sales). I, Cam Nance MD have personally reviewed and interpreted this examination/study. > Interpreting Provider: Cam Nance MD on 05/08/2024 2:55 PM Narrative 05/08/2024 2:55 PM CDT PROCEDURE: ??XR FOOT LEFT WT BEARING 3VW, XR CALCANEUS LEFT 2VW OR MORE, DATE/TIME OF EXAM: ??05/08/2024 12:56 PM, LOCATION ??[facility] INDICATION: Z47.89: Orthopedic aftercare ADDITIONAL CLINICAL INFORMATION: Ordering Provider Reason For Exam: ??post op f/u COMPARISON: None. FINDINGS: Left foot: Redemonstration of postsurgical changes of screw and plate fixation of the first tarsometatarsal joint. Hardware is intact. Osseous alignment is unchanged. No acute fracture or dislocation. Diffuse osteopenia. No soft tissue swelling. Left calcaneus: Redemonstration of postoperative changes from calcaneal osteotomy with screw fixation. Hardware is intact. Osseous alignment is unchanged. No soft tissue swelling. Procedure Note Cam Nance MD - 05/08/2024 PROCEDURE: XR FOOT LEFT WT BEARING 3VW, XR CALCANEUS LEFT 2VW OR MORE, DATE/TIME OF EXAM: 05/08/2024 12:56 PM, LOCATION [facility] INDICATION: Z47.89: Orthopedic aftercare ADDITIONAL CLINICAL INFORMATION: Ordering Provider Reason For Exam: post op f/u COMPARISON: None. FINDINGS: Left foot: Redemonstration of postsurgical changes of screw and plate fixation ofthe first tarsometatarsal joint. Hardware is intact. Osseous alignment is unchanged. No acute fracture or dislocation. Diffuse osteopenia. No soft tissue swelling. Left calcaneus: Redemonstration of postoperative changes from calcaneal osteotomy with screw fixation. Hardware is intact. Osseous alignment is unchanged. Nosoft tissue swelling. IMPRESSION: Unchanged alignment. Report dictated by Ramos Galvez MD (residential sales). I, Cam Nance MD have personally reviewed and interpreted this examination/study. > Interpreting Provider: Cam Nance MD on 05/08/2024 2:55PM Jace Muller MD DIAGNOSTIC IMAGING O RDERABLES * SS-A (SJOGREN'S) 52+60 ANTIBODIES (02/12/2024 4:48 PM CDT) SS-A 52 Antibody 4 0 - 40 AU/mL 02/15/2024 12:48 PM CDT [employer] ([facility]) Comment: INTERPRETIVE INFORMATION: SSA-52 (Ro52) (GIAN) Antibody, IgG ??29 AU/mL or Less ............. Negative ??30 - 40 AU/mL ................ Equivocal ??41 AU/mL or Greater .......... Positive SSA-52 (Ro52) and/or SSA-60 (Ro60) antibodies are associated with a diagnosis of Sjogren syndrome, systemic lupus erythematosus (SLE), and systemic sclerosis. SSA-52 antibody overlaps significantly with the major SSc-related antibodies. SSA-52 (Ro52) antibody occurs frequently in patients with inflammatory myopathies, often in the presence of interstitial lung disease. SS-A 60 Antibody 1 0 - 40 AU/mL 02/15/2024 12:48 PM CDT [employer] ([facility]) Comment: REFERENCE INTERVAL: SSA-60 (Ro60) (GIAN) Antibody, IgG ??29 AU/mL or Less ............. Negative ??30 - 40 AU/mL ................ Equivocal ??41 AU/mL or Greater .......... Positive Performed By: [facility] [address] [place] [address] Prosthetics Technician: Bogdan Garcia MD, PhD CLIA Number: [id number] Blood BLOOD SPECIMEN / Unknown Lab Venipuncture / Unknown 02/12/2024 4:48 PM CDT 02/12/2024 4:51 PM CDT Ev Lowery MD LAB - CHEMISTRY [place] [facility] [employer] [facility] [address] [place] [address], [facility] * TEIXEIRA/CABLE TELEVISION INSTALLER (GIAN) ANTIBODY IGG (02/12/2024 4:48 PM CDT) Pathologist [facility] Teixeira/CABLE TELEVISION INSTALLER (GIAN) Antibody IgG 14 0 - 19 Units 02/15/2024 8:47 AM CDT [facility] [employer] ([facility]) Comment: INTERPRETIVE INFORMATION: Teixeira/CABLE TELEVISION INSTALLER (GIAN) Antibody, IgG ??19 Units or Less ............. Negative ??20 to 39 Units ............... Weak Positive ??40 to 80 Units ............... Moderate Positive ??81 Units or greater .......... Strong Positive Teixeira/CABLE TELEVISION INSTALLER antibodies are frequently seen in patients with mixed connective tissue disease (MCTD) and are also associated with other systemic autoimmune rheumatic diseases (SARDs) such as systemic lupus erythematosus (SLE), systemic sclerosis, and myositis. Antibodies targeting the Teixeira/CABLE TELEVISION INSTALLER antigenic complex also recognize Teixeira antigens, therefore, the Teixeira antibody response must be considered when interpreting these results. Performed By: [facility] [address] [place] [address] Prosthetics Technician: Bogdan Garcia MD, PhD CLIA Number: [id number] Blood BLOOD SPECIMEN / Unknown Lab Venipuncture / Unknown 02/12/2024 4:48 PM CDT 02/12/2024 4:51 PM CDT Ev Lowery MD LAB - CHEMISTRY ORDE RABLES Performing Organization Address [facility]/[facility]/ZIP Co de Phone Number [facility] [employer] ([facility]) [address] * CHROMATIN ANTIBODY (02/12/2024 4:48 PM CDT) Only the most recent of5 resultswithin the time period is included. Chromatin Antibody 6 0 - 19 Units 02/14/2024 11:25 PM CDT [facility] [employer] ([facility]) Comment: INTERPRETIVE INFORMATION: Chromatin Antibody, IgG ??19 Units or less: Negative ??20 - 60 Units: Moderate Positive ??61 Units or greater: Strong Positive The presence of anti-chromatin antibodies may be useful in the diagnosis of systemic lupus erythematosus (SLE) or drug-induced lupus (DIL) and have been reported to be predictive of lupus nephritis, especially when antibody levels are high. Performed By: [facility] [employer] [address] [place] [address] Prosthetics Technician: Bogdan Garcia MD, PhD CLIA Number: [id number] Blood BLOOD SPECIMEN / Unknown Lab Venipuncture / Unknown 02/12/2024 4:48 PM CDT 02/12/2024 4:51 PM CDT Ev Lowery MD LAB - SEROLOGY ORDER SUSANNE Performing Organization Address [facility] [place]/[facility] Co de Phone Number [facility] [employer] [facility]) [address] * JENNIFER BLOOD SCREEN W/REFLEX TITER (02/12/2024 4:48 PM CDT) Only the most recent of7 resultswithin the time period is included. JENNIFER IgG None Detected None Detected 02/14/2024 4:28 PM CDT [facility] ([facility]) Comment: If suspicion of connective tissue disease is strong and JENNIFER EIA is negative, consider testing for EJNNIFER by IFA ([id number]). INTERPRETIVE INFORMATION: Anti-Nuclear Antibodies (JENNIFER), IgG by JOAQUÍN Antinuclear Antibodies (JENNIFER), IgG by JOAQUÍN: JENNIFER specimens are screened using enzyme-linked immunosorbent assay (JOAQUÍN) methodology. All JOAQUÍN results reported as Detected are further tested by indirect fluorescent assay (IFA) using HEp-2 substrate with an IgG-specific conjugate. The JENNIFER JOAQUÍN screen is designed to detect antibodies against dsDNA, histones, SS-A (Ro), SS-B (La), Teixeira, Teixeira/[employer]ABLE TELEVISION INST[employer]ER, Scl-70, Leann-1, centromeric proteins, other antigens extracted from the HEp-2 cell nucleus. JENNIFER JOAQUÍN assays have been reported to have lower sensitivities than JENNIFER IFA for systemic autoimmune rheumatic diseases (SARD). Negative results do not necessarily rule out SARD. Performed By: [facility] [address] [place] [address] Prosthetics Technician: Bogdan Garcia MD, PhD CLIA Number: [id number] Blood BLOOD SPECIMEN / Unknown Lab Venipuncture / Unknown 02/12/2024 4:48 PM CDT 02/12/2024 4:51 PM CDT Ev Lowery MD LAB - CHEMISTRY [facility] Organization Address City/State/ZIP Co de Phone Number [email or web address] [facility] [employer] [facility]) [address] [place] [address] * SS-B (SJOGREN'S) ANTIBODY (02/12/2024 4:48 PM CDT) Only the most recent of6 resultswithin the time period is included. Pathologist [facility] SS-B Antibody 3 0 - 40 AU/mL 02/15/2024 12:48 PM CDT [facility] ([facility]) Comment: INTERPRETIVE INFORMATION: SSB (La) (GIAN) Ab, IgG ??29 AU/mL or Less ............. Negative ??30 - 40 AU/mL ................ Equivocal ??41 AU/mL or Greater .......... Positive SSB (La) antibody is seen in 50-60% of Sjogren syndrome cases and is specific if it is the only GIAN antibody present. 15-25% of patients with systemic lupus erythematosus (SLE) and 5-10% of patients with progressive systemic sclerosis (PSS) also have this antibody. Performed By: [facility] [address] [place] [address] Prosthetics Technician: Bogdan Garcia MD, PhD CLIA Number: [id number] Blood BLOOD SPECIMEN / Unknown Lab Venipuncture / Unknown 02/12/2024 4:48 PM CDT 02/12/2024 4:51 PM CDT Ev Lowery MD LAB - CHEMISTRY [facility] [id number] [place] [address] * COMPLEMENT C4 (02/12/2024 4:48 PM CDT) Only the most recent of10 resultswithin the time period is included. Complement C4 23 15 - 57 mg/dL 02/12/2024 5:24 PM CDT [facility] Blood BLOOD SPECIMEN / Unknown Lab Venipuncture / Unknown 02/12/2024 4:48 PM CDT 02/12/2024 4:57 PM CDT Ev Lowery MD LAB - SEROLOGY ORDER SUSANNE Performing Organization Address City/[facility]/ZIP Co de Phone Number [facility] [address] [place] [address], [place] [phone] * COMPLEMENT C3 (02/12/2024 4:48 PM CDT) Only the most recent of10 resultswithin the time period is included. Complement C3 175 82 - 193 mg/dL 02/12/2024 5:24 PM CDT [facility] Blood BLOOD SPECIMEN / Unknown Lab Venipuncture / Unknown 02/12/2024 4:48 PM CDT 02/12/2024 4:57 PM CDT Ev Lowery MD LAB - CHEMISTRY [facility] [address] [place] [address], [place] [phone] * XR FOOT LEFT 3VW OR MORE (01/30/2024 1:29 PM CDT) Only the most recent of4 resultswithin the time period is included. Anatomical Region Laterality Modality Ankle / Foot Radiographic Gely ging 01/30/2024 2:02 PM CDT Impressions 01/30/2024 2:25 PM CDT IMPRESSION: 1.Interval removal of the previously demonstrated calcaneal internal fixation hardware with interval placement of 2 internal calcaneal screws for calcaneal osteotomy and internal fixation. The hardware appears intact. 2.Redemonstrated arthrodesis of the first tarsometatarsal joint. Report dictated by Nas Sharma MD (residential sales). I, Cam Nance MD have personally reviewed and interpreted this examination/study. > Interpreting Provider: Cam Nance MD on 01/30/2024 2:25 PM Narrative 01/30/2024 2:25 PM CDT PROCEDURE: ??XR FOOT LEFT 3VW OR MORE, XR CALCANEUS LEFT 2VW OR MORE, DATE/TIME OF EXAM: ??01/30/2024 1:29 PM, LOCATION ??[facility] INDICATION: Z47.89: Orthopedic aftercare ADDITIONAL CLINICAL INFORMATION: Ordering Provider Reason For Exam: ??post op COMPARISON: Left foot and calcaneal radiographs dated 12/13/2023. FINDINGS: Postoperative changes of and internal fixation of the first tarsometatarsal joint with a medial plate and screws. The hardware appears intact, the alignment is unchanged. There is been interval removal of a lateral calcaneal plate and screws. There is internal fixation of a calcaneal osteotomy with 2 internal fixation screws. The joint spaces are preserved. The bones are diffusely demineralized, likely disuse. No soft tissue swelling is present. Procedure Note Cam Nance MD - 01/30/2024 PROCEDURE: XR FOOT LEFT 3VW OR MORE, XR CALCANEUS LEFT 2VW OR MORE, DATE/TIME OF EXAM: 01/30/2024 1:29 PM, LOCATION [facility] INDICATION: Z47.89: Orthopedic aftercare ADDITIONAL CLINICAL INFORMATION: Ordering Provider Reason For Exam: post op COMPARISON: Left foot and calcaneal radiographs dated 12/13/2023. FINDINGS: Postoperative changes of and internal fixation of the firsttarsometatarsal joint with a medial plate and screws. The hardware appears intact, the alignment is unchanged. There is been interval removal of a lateral calcaneal plate and screws. There is internal fixation of a calcaneal osteotomy with 2 internal fixation screws. The joint spaces arepreserved. The bones are diffusely demineralized, likely disuse. No soft tissue swelling is present. IMPRESSION: 1.Interval removal of the previously demonstrated calcaneal internal fixation hardware with interval placement of 2 internal calcaneal screws for calcaneal osteotomy and internal fixation. The hardware appearsintact. 2.Redemonstrated arthrodesis of the first tarsometatarsal joint. Report dictated by Nas Sharma MD (residential sales). I, Cam Nance MD have personally reviewed and interpreted this examination/study. > Interpreting Provider: Cam Nance MD on 42:25 PM Jace Muller MD DIAGNOSTIC IMAGING O RDERABLES * CARDIAC RHYTHM STRIP ORDER (01/18/2024 9:43 PM CDT) Only the most recent of7 resultswithin the time period is included. Narrative 01/18/2024 9:43 PM CDT Ordered by an unspecified provider. Scanned Document CARDIAC SERVICES ORD ERABLES * IMAGING RADIOLOGY XRAY RESULTS ORDER (01/18/2024 9:07 PM CDT) Only the most recent of5 resultswithin the time period is included. Anatomical Region Laterality Modality Other Narrative 01/18/2024 9:07 PM CDT Ordered by an unspecified provider. Scanned Document IMAGING * URINALYSIS REFLEX MICROSCOPIC REFLEX CULTURE (01/16/2024 10:16 AM CDT) Only the most recent of4 resultswithin the time period is included. Color UA Straw Straw, Yellow 01/16/2024 10:35 AM CDT [facility] Clarity UA Clear Clear 01/16/2024 10:35 AM CDT [facility] Glucose UA Negative Negative 01/16/2024 10:35 AM CDT [facility] Bilirubin UA Negative Negative 01/16/2024 10:35 AM CDT [facility] Ketone UA Negative Negative 01/16/2024 10:35 AM CDT [facility] Specific Mcloud UA 1.005 1.005 - 1.030 01/16/2024 10:35 AM CDT [facility] Blood UA Negative Negative 01/16/2024 10:35 AM CDT [facility] pH UA 6.0 5.0 - 8.0 pH 01/16/2024 10:35 AM CDT [facility] Protein UA Negative Negative 01/16/2024 10:35 AM CDT [facility] Urobilinogen UA Negative Negative mg/dL 01/16/2024 10:35 AM CDT [facility] Nitrite UA Negative Negative 01/16/2024 10:35 AM CDT [facility] Leukocyte UA Negative Negative 01/16/2024 10:35 AM CDT [facility] Urine Microscopy Urine microscopy not indicated 01/16/2024 10:35 AM CDT [facility] Reflex Status Culture not indicated 01/16/2024 10:35 AM CDT [facility] Urine URINE SPECIMEN OBTAINED BY CLEAN CATCH PROCEDURE / Unknown Collection / Unknown 01/16/2024 10:16 AM CDT 01/16/2024 10:23 AM CDT Narrative [facility] - 01/16/2024 10:35 AM CDT Reinier Bowman MD LAB - URINALYSIS ORDERABLES [facility] [address] [place] [address] * [place] ANITA SURGERY (01/14/2024 9:19 AM CDT) Only the most recent of3 resultswithin the time period is included. Narrative [facility] - 01/14/2024 9:20 AM CDT For details of this study, please see the providers note. Jace Muller MD FLUOROSCOPY ORDERABL ES [facility] [address] [place] [address] * CULTURE FUNGUS OTHER+FUNGUS SMEAR (01/14/2024 8:29 AM CDT) Only the most recent of12 resultswithin the time period is included. Culture No fungus isolated KAM 02/11/2024 5:43 AM CDT [facility] Fungus Stain No yeast or hyphae seen 02/11/2024 5:43 AM CDT [facility] Microbiology BONE SPECIMEN / Unknown 01/14/2024 8:29 AM CDT 01/14/2024 9:41 AM CDT Narrative [facility] - 02/11/2024 5:43 AM CDT Surgical Description: Left Calcaneal Bone Jace Muller MD LAB - MICROBIOLOGY [place] Performing Organization Address [facility] [place]/[facility] Phone Number [facility] [address] [place] [address], [facility] [phone] * CULTURE TISSUE+GRAM STAIN (01/14/2024 8:29 AM CDT) Only the most recent of14 resultswithin the time period is included. Culture No growth KAM 01/17/2024 3:10 PM CDT [facility] Gram Stain No organisms seen 024 3:10 PM CDT [facility] Gram Stain Rare Polymorphonuclear cells 01/17/2024 3:10 PM CDT [facility] Microbiology BONE SPECIMEN / Unknown 01/14/2024 8:29 AM CDT 01/14/2024 9:39 AM CDT Narrative [facility] - 01/17/2024 3:10 PM CDT Surgical Description: Left Calcaneal Bone Jace Muller MD LAB - MICROBIOLOGY [place] Performing Organization Address City/[facility] Co de Phone Number [facility] [address] [place] [address], [facility] [phone] * CULTURE AFB+SMEAR (01/14/2024 8:29 AM CDT) Only the most recent of12 resultswithin the time period is included. Culture No acid-fast bacillus isolated 02/25/2024 10:36 AM CDT [facility] AFB Smear No acid-fast bacilli seen 02/25/2024 10:36 AM CDT [facility] Microbiology BONE SPECIMEN / Unknown 01/14/2024 8:29 AM CDT 01/14/2024 9:39 AM CDT Narrative [facility] - 02/25/2024 10:36 AM CDT Surgical Description: Left Calcaneal Bone Jace Muller MD LAB - MICROBIOLOGY O RDERABLES [facility] [address] [place] [address], [facility] [phone] * Peripheral Nerve Block (01/14/2024 7:36 AM CDT) Narrative Rajendra Marvin MD - 01/14/2024 7:36 AM CDT Rajendra Marvin MD ? 01/14/2024 ??7:38 AM Peripheral ??Nerve Block ?? Procedure: Peripheral Nerve Block Patient Location: ??Pre-op Preprocedure Section: ?? Indications: at surgeon's request and postop pain management. Pre-anesthetic Checklist: Patient identified, IV Checked, Site examined and clear, Risks and benefits discussed, Surgical consent verified, Monitors and equipment, Time-out performed, Informed consent obtained, Pre-op evaluation done, Questions answered/anesthesia questions answered, Allergies reviewed and Removal hand/wrist jewelry Monitors: Pulse Ox. Patient Condition: ??awake Patient Position: sitting Patient Sedated? ??Yes ? Sedation Type: ??mild Procedure Section ?? Laterality: left Block Performed: ??Adductor Canal Prep: ??Chloraprep Strerile Field: gloves, mask and hat/cap Skin localized with: lidocaine (XYLOCAINE) 1 % injection - Infiltration 1 mL - 01/14/2024 7:26:00 AM Needle Length: ??80 mm Catheter?No Ultrasound Guided? ?? Yes ? Technique: ??in plane ? Visualization: ??Preliminary scan performed, Important anatomical structures identified, Needle tip visualized throughout the procedure, Target identified, No intraneural or intravascular puncture occurred, Ultrasound image in chart, Local visualized surrounding nerve on ultrasound and Hydrodissection utilized Injection was made incrementally with constant monitoring and aspirations every 5 mL's Block Agents or Additives used? Yes Block agents used: ropivacaine (NAROPIN) 5 MG/ML (0.5%) injection - Infiltration 20 mL - 01/14/2024 7:30:00 AM Procedure Tolerance: tolerated well Assessment: completed Procedure Start Time: 01/14/2024 7:26 AM. Procedure End Time: 01/14/2024 7:30 AM. Procedure Total Time: 4 ??minutes. Staff Section ? Anesthesia Provider: Rajendra Marvin MD, Performed the procedure Rajendra Marvin MD GENERAL ANESTHESIA O RDERABLES * Peripheral Nerve Block (01/14/2024 7:33 AM CDT) Narrative Rajendra Marvin MD - 01/14/2024 7:33 AM CDT Rajendra Marvin MD ? 01/14/2024 ??7:36 AM Peripheral ??Nerve Block ?? Procedure: Peripheral Nerve Block Patient Location: ??Pre-op Preprocedure Section: ?? Indications: postop pain management. Pre-anesthetic Checklist: Patient identified, IV Checked, Site examined and clear, Risks and benefits discussed, Surgical consent verified, Monitors and equipment, Time-out performed, Informed consent obtained, Pre-op evaluation done, Questions answered/anesthesia questions answered, Allergies reviewed and Removal hand/wrist jewelry Monitors: Pulse Ox. Patient Condition: ??awake Patient Position: sitting Patient Sedated? ??Yes ? Sedation Type: ??mild ? Sedation Agents: ??fentaNYL (PF) (SUBLIMAZE) injection - Intravenous 100 mcg - 01/14/2024 7:20:00 AM midazolam (VERSED) injection - Intravenous 2 mg - 01/14/2024 7:20:00 AM Procedure Section ?? Laterality: left Block Performed: ??Popliteal Prep: ??Chloraprep Strerile Field: gloves, mask and hat/cap Skin localized with: lidocaine (XYLOCAINE) 1 % injection - Infiltration 1 mL - 01/14/2024 7:20:00 AM Needle Length: ??80 mm Catheter?No Ultrasound Guided? ?? Yes ? Technique: ??in plane ? Visualization: ??Preliminary scan performed, Important anatomical structures identified, Needle tip visualized throughout the procedure, Target identified, No intraneural or intravascular puncture occurred, Ultrasound image in chart, Local visualized surrounding nerve on ultrasound and Hydrodissection utilized Injection was made incrementally with constant monitoring and aspirations every 5 mL's Block Agents or Additives used? Yes Block agents used: ropivacaine (NAROPIN) 5 MG/ML (0.5%) injection - Infiltration 40 mL - 01/14/2024 7:25:00 AM Procedure Tolerance: tolerated well Assessment: completed Procedure Start Time: 01/14/2024 7:20 AM. Procedure End Time: 01/14/2024 7:25 AM. Procedure Total Time: 5 ??minutes. Staff Section ? Anesthesia Provider: Rajendra Marvin MD, Performed the procedure Rajendra Marvin MD GENERAL ANESTHESIA O RDERABLES * XR FOOT RIGHT WT BEARING 3VW (12/18/2023 11:56 AM CDT) Only the most recent of3 resultswithin the time period is included. Anatomical Region Laterality Modality Ankle / Foot Radiographic Gely ging 12/18/2023 12:5 2 PM CDT Impressions 12/18/2023 12:53 PM CDT IMPRESSION: Unchanged alignment. > Interpreting Provider: Sampson Greco MD on 12/18/2023 12:53 PM Narrative 12/18/2023 12:53 PM CDT PROCEDURE: ??XR FOOT RIGHT WT BEARING 3VW DATE/TIME OF EXAM: ??12/18/2023 11:57 AM CLINICAL INFORMATION: None relevant/not provided if blank. Indication: M79.671: Right foot pain Additional History: COMPARISON: 03/29/2023 FINDINGS: First tarsometatarsal arthrodesis with a screw and calcaneal osteotomy with a screw redemonstrated. Hardware is intact, osseous alignment is unchanged. There is bony fusion at the first tarsometatarsal joint. There is mild degenerative change at the first metatarsophalangeal joint. There is pes planus. Procedure Note Sampson Greco MD - 12/18/2023 PROCEDURE: XR FOOT RIGHT WT BEARING 3VW DATE/TIME OF EXAM: 12/18/2023 11:57 AM CLINICAL INFORMATION: None relevant/not provided if blank. Indication: M79.671: Right foot pain Additional History: COMPARISON: 03/29/2023 FINDINGS: First tarsometatarsal arthrodesis with a screw and calcaneal osteotomywith a screw redemonstrated. Hardware is intact, osseous alignment isunchanged. There is bony fusion at the first tarsometatarsal joint. There is mild degenerative change at the first metatarsophalangeal joint. There is pes planus. IMPRESSION: Unchanged alignment. > Interpreting Provider: Sampson Greco MD on 12/18/2023 12:53 PM Jace Muller MD DIAGNOSTIC IMAGING O RDERABLES * C-REACTIVE PROTEIN (12/18/2023 11:53 AM CDT) Only the most recent of20 resultswithin the time period is included. C-Reactive Protein 0.5 <=0.5 mg/dL 12/18/2023 12:59 PM CDT [facility] Blood BLOOD SPECIMEN / Unknown Lab Venipuncture / Unknown 12/18/2023 11:53 AM CDT 12/18/2023 12:35 PM CDT Jace Muller [facility] Organization Address City/State/ZIP Co de Phone Number [address] [address], [facility] [phone] * (ABNORMAL) ERYTHROCYTE SEDIMENTATION RATE (12/18/2023 11:53 AM CDT) Only the most recent of19 resultswithin the time period is included. Erythrocyte Sedimentation Rate Westergren 56(H) 0 - 30 MM/HR 12/18/2023 12:52 PM CDT [facility] Blood BLOOD SPECIMEN / Unknown Lab Venipuncture / Unknown 12/18/2023 11:53 AM CDT 12/18/2023 12:35 PM CDT Jace Muller MD LAB - HEMATOLOGY ORD ERABLES [place] [id number] [place] [address], [facility] [phone] * [facility] [employer] (08/10/2023 9:00 AM MANAGER WOUND CARE) Narrative Simone Hanna Anes Asst - 08/10/2023 9:00 AM MANAGER WOUND CARE Simone Hanna Anes Asst ? 08/10/2023 ??9:00 AM LMA Placement Procedure/LDA Note: Patient Location: OR. LMA Insertion Date/Time: ??08/10/2023 8:34 AM Procedure: LMA. Pretreatment: 100% O2 Induction: standard IV Patient position: supine. Mask Ventilation: easy Type: ??gel LMA Size: ??3 Number of Attempts: 1. Placement verified by: direct visualization and CO2 monitor Dentition unchanged? ??Yes Procedure Start Time: 08/10/2023 8:34 AM. Staff Section ? Anesthesia Provider: Simone Hanna Anes Asst, Performed the procedure Kota Gordon MD GENERAL ANESTHESIA O RDERABLES * Peripheral Nerve Block (08/10/2023 8:25 AM MANAGER WOUND CARE) Narrative Kota Gordon MD - 08/10/2023 8:25 AM MANAGER WOUND CARE Kota Gordon MD ? 08/10/2023 ??8:27 AM Peripheral ??Nerve Block ?? Procedure: Peripheral Nerve Block Patient Location: ??Pre-op Preprocedure Section: ?? Indications: at surgeon's request and postop pain management. Pre-anesthetic Checklist: Patient identified, IV Checked, Site examined and clear, Risks and benefits discussed, Surgical consent verified, Monitors and equipment, Time-out performed, Informed consent obtained, Pre-op evaluation done, Questions answered/anesthesia questions answered, Allergies reviewed and Removal hand/wrist jewelry Monitors: BP, Pulse Ox and EKG. Patient Condition: ??sedated, meaningful contact maintained throughout procedure Patient Position: supine Patient Sedated? ??Yes ? Sedation Type: ??moderate Procedure Section ?? Laterality: left Block Performed: ??adductor canal Prep: ??Chloraprep Strerile Field: gloves, mask, hat/cap and patient draped Skin localized with: lidocaine (XYLOCAINE) 1 % injection - Infiltration 1 mL - 08/10/2023 8:13:00 AM Needle Type: ??Echogenic insultaed Needle Gauge: ??21 Needle Length: ??90 mm Needle Depth: ??7 cm Catheter?No Ultrasound Guided? ?? Yes ? Technique: ??in plane ? Visualization: ??Preliminary scan performed, Important anatomical structures identified, Needle tip visualized throughout the procedure, Target identified, No intraneural or intravascular puncture occurred, Ultrasound image in chart, Local visualized surrounding nerve on ultrasound and Hydrodissection utilized Injection was made incrementally with constant monitoring and aspirations every 5 mL's Injection Assessment: ?? Slow fractionated injection Block Agents or Additives used? Yes Block agents used: bupivacaine PF (MARCAINE PF) 0.25 % injection - Infiltration 15 mL - 08/10/2023 8:14:00 AM bupivacaine liposome (EXPAREL) 1.3 % injection - Infiltration 5 mL - 08/10/2023 8:14:00 AM Procedure Tolerance: tolerated well, performed while the patient was sedated and no immediate complications Assessment: completed Procedure Start Time: 08/10/2023 8:09 AM. Procedure End Time: 08/10/2023 8:16 AM. Procedure Total Time: 7 ??minutes. Staff Section ? Anesthesia Provider: Kota Gordon MD, Performed the procedure Additional Comments: Personally performed block at surgeon's request for post op pain. ??. Kota Gordon MD GENERAL ANESTHESIA O RDERABLES * Peripheral Nerve Block (08/10/2023 8:22 AM MANAGER WOUND CARE) Narrative Kota Gordon MD - 08/10/2023 8:22 AM MANAGER WOUND CARE Kota Gordon MD ? 08/10/2023 ??8:25 AM Peripheral ??Nerve Block ?? Procedure: Peripheral Nerve Block Patient Location: ??Pre-op Preprocedure Section: ?? Indications: at surgeon's request and postop pain management. Pre-anesthetic Checklist: Patient identified, IV Checked, Site examined and clear, Risks and benefits discussed, Surgical consent verified, Monitors and equipment, Time-out performed, Informed consent obtained, Pre-op evaluation done, Questions answered/anesthesia questions answered, Allergies reviewed and Removal hand/wrist jewelry Monitors: BP, Pulse Ox and EKG. Patient Condition: ??sedated, meaningful contact maintained throughout procedure Patient Position: right lateral decubitus Patient Sedated? ??Yes ? Sedation Type: ??moderate ? Sedation Agents: ??fentaNYL (PF) (SUBLIMAZE) injection - Intravenous 50 mcg - 08/10/2023 8:09:00 AM midazolam (VERSED) injection - Intravenous 2 mg - 08/10/2023 8:09:00 AM Procedure Section ?? Laterality: left Block Performed: ??popliteal Prep: ??Chloraprep Strerile Field: gloves, mask, hat/cap and patient draped Skin localized with: lidocaine (XYLOCAINE) 1 % injection - Infiltration 1 mL - 08/10/2023 8:10:00 AM Needle Type: ??Echogenic insultaed Needle Gauge: ??21 Needle Length: ??90 mm Catheter?No Ultrasound Guided? ?? Yes ? Technique: ??in plane ? Visualization: ??Preliminary scan performed, Important anatomical structures identified, Needle tip visualized throughout the procedure, Target identified, No intraneural or intravascular puncture occurred, Ultrasound image in chart, Local visualized surrounding nerve on ultrasound and Hydrodissection utilized Injection was made incrementally with constant monitoring and aspirations every 5 mL's Injection Assessment: ?? Slow fractionated injection Block Agents or Additives used? Yes Block agents used: bupivacaine PF (MARCAINE PF) 0.25 % injection - Infiltration 15 mL - 08/10/2023 8:11:00 AM bupivacaine liposome (EXPAREL) 1.3 % injection - Infiltration 5 mL - 08/10/2023 8:11:00 AM Procedure Tolerance: tolerated well, performed while the patient was sedated and no immediate complications Assessment: completed Procedure Start Time: 08/10/2023 8:09 AM. Procedure End Time: 08/10/2023 8:15 AM. Procedure Total Time: 6 ??minutes. Staff Section ? Anesthesia Provider: Kota Gordon MD, Performed the procedure Additional Comments: Personally performed block at surgeon's request for post op pain. ??. Kota Gordon MD GENERAL ANESTHESIA O RDERABLES * PT-INR [facility] (07/30/2023 3:24 PM MANAGER WOUND CARE) Only the most recent of6 resultswithin the time period is included. PT 12.3 12.1 - 14.8 Seconds 07/30/2023 3:59 PM [facility] INR 0.9 See Comment 07/30/2023 3:59 PM [facility] Comment:The suggested therap eutic range for standard coumadin (warfarin) therapy is an INR of 2.0-3.0. For high-risk patients (Mechanical Mitral Valve Prosthesis, etc.), the suggested prophylactic therapeutic range is an INR of 2.5-3.5. Blood BLOOD SPECIMEN / Unknown Lab Venipuncture / Unknown 07/30/2023 3:24 PM MANAGER WOUND CARE 07/30/2023 3:37 PM MANAGER WOUND CARE Jace Muller MD LAB - COAGULATION OR DERABLES Performing Organization Address City/State/[facility] Co de Phone Number [facility] [address] [place] [address], [facility] [phone] * (ABNORMAL) BASIC METABOLIC PANEL (CALCIUM TOTAL) (07/30/2023 3:24 PM MANAGER WOUND CARE) Only the most recent of23 resultswithin the time period is included. BUN 15 7 - 26 mg/dL 07/30/2023 4:05 PM [facility] Creatinine 0.91 0.56 - 0.96 mg/dL 07/30/2023 4:05 PM [facility] Sodium 140 136 - 145 mmol/L 07/30/2023 4:05 PM [facility] Potassium 4.3 3.5 - 4.5 mmol/L 07/30/2023 4:05 PM [facility] Chloride 104 98 - 107 mmol/L 07/30/2023 4:05 PM [facility] CO2 25 22 - 29 mmol/L 07/30/2023 4:05 PM [facility] Glucose 100 70 - 115 mg/dL 07/30/2023 4:05 PM [facility] Calcium 9.7 8.4 - 10.2 mg/dL 07/30/2023 4:05 PM [facility] Anion Gap 11 6 - 16 07/30/2023 4:05 PM [facility] BUN/Creatinine Ratio 16 7 - 23 07/30/2023 4:05 PM [facility] Osmolality Calculated 291 275 - 295 mOsm/kg 07/30/2023 4:05 PM [facility] eGFR by CKD-EPI 75(L) >=90 mL/min/1.7 3 m2 07/30/2023 4:05 PM [facility] Blood BLOOD SPECIMEN / Unknown Lab Venipuncture / Unknown 07/30/2023 3:24 PM MANAGER WOUND CARE 07/30/2023 3:38 PM MANAGER WOUND CARE Jace Muller MD LAB - CHEMISTRY [facility] Organization Address City/State/ZIP Co de Phone Number [facility] [address] [place] [phone], [facility] [phone] * EKG 12-LEAD (07/30/2023 3:21 PM MANAGER WOUND CARE) Only the most recent of7 resultswithin the time period is included. Ventricular Rate 73 BPM [facility] MUSE Atrial Rate 73 BPM [facility] MUSE P-R Interval 186 ms [facility] MUSE QRS Duration ms 94 ms [facility] MUSE Q-T Interval ms 418 ms [facility] MUSE QTC Calculation (Bezet) 460 ms [facility] MUSE Calculated P [place] 69 degrees [facility] MUSE Calculated R [place] 15 degrees [facility] MUSE Calculated T [place] 60 degrees [facility] MUSE Interpretation EKG NORMAL SINUS RHYTHM INCOMPLETE RIGHT BUNDLE BRANCH BLOCK SEPTAL INFARCT , AGE UNDETERMINED ABNORMAL ECG WHEN COMPARED WITH ECG OF 10-MAR-2019 14:31, INCOMPLETE RIGHT BUNDLE BRANCH BLOCK IS NOW PRESENT SEPTAL INFARCT IS NOW PRESENT T WAVE INVERSION NO LONGER EVIDENT IN INFERIOR LEADS T WAVE INVERSION NO LONGER EVIDENT IN ANTERIOR LEADS Confirmed by DURANT ??TUNDE MABRY ([id number]) on 08/02/2023 6:57:51 AM [facility] MUSE 07/30/2023 3:21 PM MANAGER WOUND CARE 08/02/2023 6:57 AM MANAGER WOUND CARE Jace Muller MD ECG ORDERABLES [facility] MUSE * XR SHOULDER LEFT 2VW OR MORE (07/17/2023 1:24 PM MANAGER WOUND CARE) Only the most recent of17 resultswithin the time period is included. Anatomical Region Laterality Modality Upper Extremity Computed Radiogr aphy 07/17/2023 1:34 PM MANAGER WOUND CARE Impressions 07/17/2023 1:34 PM MANAGER WOUND CARE IMPRESSION: Post left shoulder arthroplasty. > Interpreting Provider: Ivis Fuller MD on 07/17/2023 1:34 PM Narrative 07/17/2023 1:34 PM MANAGER WOUND CARE PROCEDURE: ??XR SHOULDER LEFT 2VW OR MORE DATE/TIME OF EXAM: ??07/17/2023 1:25 PM CLINICAL INFORMATION: None relevant/not provided if blank. Indication: Z96.612: Presence of left artificial shoulder joint Additional History: COMPARISON: January 30, 2023 FINDINGS: Postoperative changes of reverse left shoulder arthroplasty are again noted. Alignment is anatomic. No acute fracture or osseous abnormality is seen. Procedure Note Ivis Fuller MD - 07/17/2023 PROCEDURE: XR SHOULDER LEFT 2VW OR MORE DATE/TIME OF EXAM: 07/17/2023 1:25 PM CLINICAL INFORMATION: None relevant/not provided if blank. Indication: Z96.612: Presence of left artificial shoulder joint Additional History: COMPARISON: January 30, 2023 FINDINGS: Postoperative changes of reverse left shoulder arthroplasty are again noted. Alignment is anatomic. No acute fracture or osseous abnormalityis seen. IMPRESSION: Post left shoulder arthroplasty. > Interpreting Provider: Ivis Fuller MD on 07/17/2023 1:34 PM Mariano Guzmán MD DIAGNOSTIC IMAGING O RDERABLES * XR ANKLE LEFT 3VW OR MORE (07/04/2023 2:06 PM CDT) Anatomical Region Laterality Modality Lower Extremity Radiographic Gely ging 07/04/2023 2:13 PM CDT Impressions 07/04/2023 2:15 PM CDT IMPRESSION: No acute osseous abnormality. > Interpreting Provider: Sampson Greco MD on 07/04/2023 2:15 PM Narrative 07/04/2023 2:15 PM CDT PROCEDURE: ??XR ANKLE LEFT 3VW OR MORE, XR CALCANEUS LEFT 2VW OR MORE, XR FOOT LEFT WT BEARING 3VW DATE/TIME OF EXAM: ??07/04/2023 2:06 PM CLINICAL INFORMATION: None relevant/not provided if blank. Indication: M21.42: Acquired pes planus, left Additional History: COMPARISON: Left ankle x-ray dated 10/21/2019. Left foot x-rays dated 09/30/2019. FINDINGS: Left ankle: No fracture or dislocation. The joint spaces are normal. No erosions. Left calcaneus: There is no calcaneal fracture. There is no bone erosion or periosteal reaction. Small posterior calcaneal spur. Left foot: No fracture or dislocation is present. The joint spaces are normal. No erosions are seen. ??Bone density is normal. ??The soft tissues are normal. Procedure Note Sampson Greco MD - 07/04/2023 PROCEDURE: XR ANKLE LEFT 3VW OR MORE, XR CALCANEUS LEFT 2VW OR MORE, XR FOOT LEFT WT BEARING 3VW DATE/TIME OF EXAM: 07/04/2023 2:06 PM CLINICAL INFORMATION: None relevant/not provided if blank. Indication: M21.42: Acquired pes planus, left Additional History: COMPARISON: Left ankle x-ray dated 10/21/2019. Left foot x-rays dated 09/30/2019. FINDINGS: Left ankle: No fracture or dislocation. The joint spaces are normal. No erosions. Left calcaneus: There is no calcaneal fracture. There is no bone erosion or periosteal reaction. Small posterior calcaneal spur. Left foot: No fracture or dislocation is present. The joint spaces are normal. No erosions are seen. Bone density is normal. The soft tissues arenormal. IMPRESSION: No acute osseous abnormality. > Interpreting Provider: Sampson Greco MD on 07/04/2023 2:15 PM Jace Muller MD DIAGNOSTIC IMAGING O RDERABLES * MRI FOOT RIGHT WO CONTRAST (07/01/2023 10:04 AM CDT) Only the most recent of3 resultswithin the time period is included. Anatomical Region Laterality Modality Ankle / Foot Magnetic Resonan ce 07/01/2023 5:04 PM CDT Impressions 07/01/2023 5:42 PM CDT IMPRESSION: 1. Postsurgical changes including calcaneal osteotomy and first tarsometatarsal arthrodesis. Associated metallic artifact. 2. Moderate Achilles tendinopathy. > Interpreting Provider: Sampson Greco MD on 07/01/2023 5:42 PM Narrative 07/01/2023 5:42 PM CDT PROCEDURE: ??MRI FOOT RIGHT WO CONTRAST DATE/TIME OF EXAM: ??07/01/2023 10:04 AM CLINICAL INFORMATION: None relevant/not provided if blank. Indication: M21.41: Pes planovalgus, acquired, right Additional History: COMPARISON: MRI right foot dated 05/27/[address] dated 04/09/2023. Right foot x-rays dated 03/29/2023. TECHNIQUE: MRI of the right foot was performed without contrast. The wzshc-jm-[id number] was set to optimally evaluate the area of clinical concern and includes the midfoot and hindfoot/ankle. FINDINGS: There is calcaneal osteotomy with a screw. There is first tarsometatarsal arthrodesis with a screw. There is associated metallic artifact. There is no fracture or dislocation. The articular cartilage is normal. There is no effusion. There is a moderate-sized spur at the dorsal aspect of the talar head. There is increased signal within the distal aspect of the Achilles tendon compatible with moderate tendinosis (series 4 image 16). Otherwise the the visualized tendons are within normal limits. The plantar fascia is normal. The muscles are normal in bulk. There is mild subcutaneous edema. The anterior talofibular, calcaneofibular, posterior talofibular, and deltoid ligaments are intact. Procedure Note Sampson Greco MD - 07/01/2023 PROCEDURE: MRI FOOT RIGHT WO CONTRAST DATE/TIME OF EXAM: 07/01/2023 10:04 AM CLINICAL INFORMATION: None relevant/not provided if blank. Indication: M21.41: Pes planovalgus, acquired, right Additional History: COMPARISON: MRI right foot dated 05/27/[address] dated 04/09/2023. Right foot x-rays dated 03/29/2023. TECHNIQUE: MRI of the right foot was performed without contrast. The [id number] set to optimally evaluate the area of clinical concern and includes the midfoot and hindfoot/ankle. FINDINGS: There is calcaneal osteotomy with a screw. There is firsttarsometatarsal arthrodesis with a screw. There is associated metallic artifact. There is no fracture or dislocation. The articular cartilage is normal. There is no effusion. There is a moderate-sized spur at the dorsalaspect of the talar head. There is increased signal within the distal aspect of the Achillestendon compatible with moderate tendinosis (series 4 image 16). Otherwise thethe visualized tendons are within normal limits. The plantar fascia isnormal. The muscles are normal in bulk. There is mild subcutaneous edema. The anterior talofibular, calcaneofibular, posterior talofibular, anddeltoid ligaments are intact. IMPRESSION: 1. Postsurgical changes including calcaneal osteotomy and first tarsometatarsal arthrodesis. Associated metallic artifact. 2. Moderate Achilles tendinopathy. > Interpreting Provider: Sampson Greco MD on 07/01/2023 5:42 PM Jace Muller MD MR ORDERABLES * CT FOOT RIGHT WO CONTRAST (04/09/2023 12:18 PM CDT) Only the most recent of2 resultswithin the time period is included. Anatomical Region Laterality Modality Ankle / Foot Computed Tomogra phy 04/09/2023 3:02 PM CDT Narrative 04/10/2023 3:27 AM CDT PROCEDURE: ??CT FOOT RIGHT WO CONTRAST, DATE/TIME OF EXAM: ??04/09/2023 12:19 PM, LOCATION ??[facility] INDICATION: M79.671: Right foot pain M21.41: Pes planovalgus, acquired, right ADDITIONAL CLINICAL INFORMATION: Ordering Provider Reason For Exam: ??flat foot deformity s/p fusion COMPARISON: X-ray right foot dated 03/29/2023, and CT of the right foot dated 11/19/2019 FINDINGS/IMPRESSION: Fixation screw in the calcaneus is unchanged. Instrumented arthrodesis of the first tarsometatarsal joint is also unchanged. Osteophytes at the dorsal aspect of the talonavicular joint is again seen. Pes planovalgus is unchanged. Report dictated by Serge Bell MD (residential sales) Cam Brower MD have personally reviewed and interpreted this examination/study. > Interpreting Provider: Cam Nance MD on 04/10/2023 3:27 AM Procedure Note Cam Nance MD - 04/10/2023 PROCEDURE: CT FOOT RIGHT WO CONTRAST, DATE/TIME OF EXAM: 2:19 PM, LOCATION [facility] INDICATION: M79.671: Right foot pain M21.41: Pes planovalgus, acquired, right ADDITIONAL CLINICAL INFORMATION: Ordering Provider Reason For Exam: flat foot deformity s/p fusion COMPARISON: X-ray right foot dated 03/29/2023, and CT of the right foot dated 11/19/2019 FINDINGS/IMPRESSION: Fixation screw in the calcaneus is unchanged. Instrumented arthrodesisof the first tarsometatarsal joint is also unchanged. Osteophytes at the dorsal aspect of the talonavicular joint is again seen. Pes planovalgusis unchanged. Report dictated by eSrge Bell MD (residential sales) Cam Brower MD have personally reviewed and interpreted this examination/study. > Interpreting Provider: Cam Nance MD on 04/10/2023 3:27AM Jace Muller MD CT ORDERABLES * XR ANKLE RIGHT 3VW OR MORE (03/29/2023 2:53 PM CDT) Only the most recent of2 resultswithin the time period is included. Anatomical Region Laterality Modality Lower Extremity Radiographic Gely ging 03/29/2023 11:3 3 PM CDT Impressions 03/29/2023 11:37 PM CDT IMPRESSION: Right ankle: Ankle mortise is intact. No widening of the distal tibial fibular syndesmosis. No acute fracture. Right foot: Fixation screw in the calcaneus is healed and unchanged. Instrumented arthrodesis of the first tarsal metatarsal joint also healed and unchanged with heterotopic ossification possible synostosis between the first and second metatarsal bases. In the interval, a calcaneal screw was removed as well as 2 screws ??involving the medial midfoot. There is a dorsal talar osteophyte at the talonavicular joint. There is pes planovalgus. > Interpreting Provider: Matt Bernal MD on 03/29/2023 11:37 PM Narrative 03/29/2023 11:37 PM CDT PROCEDURE: ??XR ANKLE RIGHT 3VW OR MORE, XR FOOT RIGHT WT BEARING 3VW DATE/TIME OF EXAM: ??03/29/2023 2:53 PM CLINICAL INFORMATION: None relevant/not provided if blank. Indication: M79.671: Right foot pain Additional History: COMPARISON: 06/06/2021 and 10/21/2019 Procedure Note Matt Bernal MD - 03/29/2023 PROCEDURE: XR ANKLE RIGHT 3VW OR MORE, XR FOOT RIGHT WT BEARING 3VW DATE/TIME OF EXAM: 03/29/2023 2:53 PM CLINICAL INFORMATION: None relevant/not provided if blank. Indication: M79.671: Right foot pain Additional History: COMPARISON: 06/06/2021 and 10/21/2019 IMPRESSION: Right ankle: Ankle mortise is intact. No widening of the distal tibial fibular syndesmosis. No acute fracture. Right foot: Fixation screw in the calcaneus is healed and unchanged. Instrumented arthrodesis of the first tarsal metatarsal joint also healed andunchanged with heterotopic ossification possible synostosis between the first and second metatarsal bases. In the interval, a calcaneal screw was removedas well as 2 screws involving the medial midfoot. There is a dorsal talar osteophyte at the talonavicular joint. There is pes planovalgus. > Interpreting Provider: Matt Bernal MD on 03/29/2023 11:37 PM Jace Muller MD DIAGNOSTIC IMAGING O RDERABLES * XR LUMBAR SPINE 2 OR 3VW (03/19/2023 12:04 PM CDT) Only the most recent of3 resultswithin the time period is included. Anatomical Region Laterality Modality Spine Radiographic Gely ging 03/19/2023 12:4 0 PM CDT Impressions 03/19/2023 12:41 PM CDT IMPRESSION: Degenerative changes. > Interpreting Provider: Sampson Greco MD on 03/19/2023 12:41 PM Narrative 03/19/2023 12:41 PM CDT PROCEDURE: ??XR LUMBAR SPINE 2 OR 3VW DATE/TIME OF EXAM: ??03/19/2023 12:04 PM CLINICAL INFORMATION: None relevant/not provided if blank. Indication: M54.50: Low back pain, unspecified back pain laterality, unspecified chronicity, unspecified whether sciatica present Additional History: COMPARISON: None. FINDINGS: The lumbar lordosis is normal. There is no fracture or subluxation. Mild multilevel degenerative disc disease. Moderate lower lumbar facet arthropathy. Procedure Note Sampson Greco MD - 03/19/2023 PROCEDURE: XR LUMBAR SPINE 2 OR 3VW DATE/TIME OF EXAM: 03/19/2023 12:04 PM CLINICAL INFORMATION: None relevant/not provided if blank. Indication: M54.50: Low back pain, unspecified back pain laterality, unspecified chronicity, unspecified whether sciatica present Additional History: COMPARISON: None. FINDINGS: The lumbar lordosis is normal. There is no fracture or subluxation. Mild multilevel degenerative disc disease. Moderate lower lumbar facet arthropathy. IMPRESSION: Degenerative changes. > Interpreting Provider: Sampson Greco MD on 03/19/2023 12:41 PM Ida Barrett PA-C DIAGNOSTIC IMAGING ORDERABLES * XR SHOULDER RIGHT 2VW OR MORE (09/28/2022 2:59 PM MANAGER WOUND CARE) Anatomical Region Laterality Modality Upper Extremity Radiographic Gely ging 09/28/2022 3:13 PM MANAGER WOUND CARE Impressions 09/28/2022 3:14 PM MANAGER WOUND CARE IMPRESSION: 1. No acute fracture or osseous abnormality. 2. Postoperative changes in the acromioclavicular joint. > Interpreting Provider: Ivis Fuller MD on 09/28/2022 3:14 PM Narrative 09/28/2022 3:14 PM MANAGER WOUND CARE PROCEDURE: ??XR SHOULDER RIGHT 2VW OR MORE, DATE/TIME OF EXAM: ??09/28/2022 3:00 PM, LOCATION ??[facility] INDICATION: M25.511: Pain in right shoulder G89.29: Other chronic pain ADDITIONAL CLINICAL INFORMATION: Ordering Provider Reason For Exam: Technologist Note: Additional: COMPARISON: None. FINDINGS: There appear to be postoperative changes in the acromioclavicular joint. No acute fracture or dislocation is seen. Glenohumeral joint is maintained. No abnormal soft tissue calcifications are noted. Postoperative changes are present in the lower cervical spine. Procedure Note Ivis Fuller MD - 09/28/2022 PROCEDURE: XR SHOULDER RIGHT 2VW OR MORE, DATE/TIME OF EXAM: 09/28/2022 3:00 PM, LOCATION [facility] INDICATION: M25.511: Pain in right shoulder G89.29: Other chronic pain ADDITIONAL CLINICAL INFORMATION: Ordering Provider Reason For Exam: Technologist Note: Additional: COMPARISON: None. FINDINGS: There appear to be postoperative changes in the acromioclavicular joint.No acute fracture or dislocation is seen. Glenohumeral joint is maintained.No abnormal soft tissue calcifications are noted. Postoperative changes are present in the lower cervical spine. IMPRESSION: 1. No acute fracture or osseous abnormality. 2. Postoperative changes in the acromioclavicular joint. > Interpreting Provider: Ivis Fuller MD on 09/28/2022 3:14 PM Mariano Guzmán MD DIAGNOSTIC IMAGING O RDERABLES * CULTURE HARDWARE (07/09/2022 12:00 PM MANAGER WOUND CARE) Only the most recent of3 resultswithin the time period is included. Culture No growth KAM 07/16/2022 9:31 AM MANAGER WOUND CARE [facility] MICROBIOLOGY Microbiology DEVICE / Unknown Collection / Unknown 07/09/2022 12:00 PM MANAGER WOUND CARE 07/09/2022 5:21 PM MANAGER WOUND CARE Christy Dixon DO LAB - MICROBIOLOGY ORDERABLES [facility] MICROBIOLOGY [address] [place], [facility], [facility] [phone] * (ABNORMAL) CBC W/O DIFFERENTIAL (07/08/2022 6:08 AM CDT) Only the most recent of10 resultswithin the time period is included. WBC 4.0(L) 4.4 - 10.7 x10E9/L 07/08/2022 6:31 AM CDT [facility] RBC 3.68(L) 3.80 - 5.20 x10E12/L 07/08/2022 6:31 AM CDT [facility] Hemoglobin 9.6(L) 12.0 - 15.6 gm/dL 07/08/2022 6:31 AM CDT [facility] Hematocrit 31.3(L) 35.9 - 45.5 % 07/08/2022 6:31 AM CDT [facility] MCV 85.1 80.7 - 98.3 fl 07/08/2022 6:31 AM CDT [facility] MCH 26.1(L) 26.7 - 34.0 pg 07/08/2022 6:31 AM CDT [facility] MCHC 30.7(L) 30.8 - 35.9 gm/dL 07/08/2022 6:31 AM CDT [facility] Platelet Count 263 153 - 416 x10E9/L 07/08/2022 6:31 AM CDT [facility] RDW-CV 14.9 12.1 - 14.9 % 07/08/2022 6:31 AM CDT [facility] MPV 8.6(L) 9.4 - 12.9 fl 07/08/2022 6:31 AM CDT [facility] Blood BLOOD SPECIMEN / Unknown Lab Venipuncture / Unknown 07/08/2022 6:08 AM CDT 07/08/2022 6:28 AM CDT Danna Laurent MD LAB - HEMATOLOGY ORD ERABLES [facility] [address] [place] [address] * CULTURE BLOOD (07/07/2022 10:28 AM CDT) Only the most recent of15 resultswithin the time period is included. Culture No growth day 5 KAM 07/12/2022 12:01 PM MANAGER WOUND CARE [facility] MICROBIOLOGY Blood PERIPHERAL BLOOD / Unknown Lab Venipuncture / Unknown 07/07/2022 10:28 AM CDT 07/07/2022 10:33 AM CDT Bradley Mejia MD LAB - MICROBIOLOGY O RDERABLES [facility] MICROBIOLOG[facility] [address] [place] [address], [facility] [phone] * XR CHEST PA AND LATERAL (07/06/2022 4:22 PM CDT) Only the most recent of6 resultswithin the time period is included. Anatomical Region Laterality Modality Chest Radiographic Gely ging 07/06/2022 4:23 PM CDT Impressions 07/06/2022 4:24 PM CDT Impression: No active disease > Interpreting Provider: Edilberto Wallace MD on 07/06/2022 4:24 PM Narrative 07/06/2022 4:24 PM CDT PROCEDURE: ??XR CHEST 2VW, DATE/TIME OF EXAM: ??07/06/2022 4:22 PM, LOCATION [facility] INDICATION: R10.9: Unspecified abdominal pain ADDITIONAL CLINICAL INFORMATION: Ordering Provider Reason For Exam: Technologist Note: Additional: ??Pain at port site. Pain when accessing the site. On home antibiotics, right flank pain times a week COMPARISON: 2019 History: Shortness of breath Findings: The heart size is normal. The pulmonary vessels are normal. The lungs are clear. No lobar consolidation or pleural effusion. No paraspinal soft tissue swelling. No hilar enlargement or major airway displacement. ??Right chest wall port tip supposing SVC. Left reversed shoulder prosthesis. Cervical disc prosthesis. Left upper lobe granuloma. Post cholecystectomy clips. Degenerative changes right shoulder. No thoracic compression deformity. Procedure Note Edilberto Wallace MD - 07/06/2022 PROCEDURE: XR CHEST 2VW, DATE/TIME OF EXAM: 07/06/2022 4:22 PM, LOCATION [facility] INDICATION: R10.9: Unspecified abdominal pain ADDITIONAL CLINICAL INFORMATION: Ordering Provider Reason For Exam: Technologist Note: Additional: Pain at port site. Pain when accessing the site. On home antibiotics, right flank pain times a week COMPARISON: 2019 History: Shortness of breath Findings: The heart size is normal. The pulmonary vessels are normal. The lungsare clear. No lobar consolidation or pleural effusion. No paraspinal soft tissue swelling. No hilar enlargement or major airway displacement.Right chest wall port tip supposing SVC. Left reversed shoulder prosthesis. Cervical disc prosthesis. Left upper lobe granuloma. Postcholecystectomy clips. Degenerative changes right shoulder. No thoracic compression deformity. Impression: No active disease > Interpreting Provider: Edilberto Wallace MD on 07/06/2022 4:24 PM Leisa Jaramillo FASHION ILLUSTRATOR-GRAPHIC PRODUCTION ARTIST DIAGNOSTIC IMAGING ORDERABLES * CT RENAL STONE - suspected stone disease (07/06/2022 4:21 PM CDT) Anatomical Region Laterality Modality Abdomen Computed Tomogra phy 07/06/2022 4:24 PM CDT Impressions 07/06/2022 4:28 PM CDT IMPRESSION: Nonspecific groundglass infiltrates right lower lobe paraspinal. This may just be paraspinal atelectasis. Additional considerations include atypical infiltrate such as viral. No bowel or urinary obstructive or inflammatory process. No right ureterolithiasis evident. > Interpreting Provider: Edilberto Wallace MD on 07/06/2022 4:28 PM Narrative 07/06/2022 4:28 PM CDT PROCEDURE: ??CT RENAL STONE, DATE/TIME OF EXAM: ??07/06/2022 4:22 PM, LOCATION [facility] INDICATION: R10.9: Unspecified abdominal pain ADDITIONAL CLINICAL INFORMATION: Ordering Provider Reason For Exam: Technologist Note: Additional: ??Right flank pain x1 week. On home antibiotics COMPARISON: October 09, 2017 Technique: Axial CT images from the lung bases through the pubic symphysis were obtained without intravenous contrast. Findings: Breast prostheses. Central venous catheter tip supposing the right atrium. There are groundglass infiltrates in the right medial lung base. This may be infectious or inflammatory including the possibility of a viral infection. This best seen image 6 series 3. No pneumoperitoneum. No intrahepatic biliary ductal dilatation. Post cholecystectomy clips. Food material or secretions in the stomach. There is no splenomegaly. No generalized gastric wall thickening. No peripancreatic inflammatory changes. Adrenal glands normal in size. The kidneys show no hydronephrosis or hydroureter. No stone down the pathway of either ureter. The infrarenal abdominal atherosclerotic aorta measures transverse dimension of 2.1 cm. Small bowel transition zone. No generalized small bowel wall thickening. In the pelvis, post hysterectomy. No adnexal mass lesion. There is no inguinal, obturator, or iliac chain adenopathy. Multilevel lumbar facet arthrosis. No compression deformity. No spondylolisthesis. The femoral heads are smooth. Surgical changes to the lower abdominal wall. Procedure Note Edilberto Wallace MD - 07/06/2022 PROCEDURE: CT RENAL STONE, DATE/TIME OF EXAM: 07/06/2022 4:22 PM,LOCATION [facility] INDICATION: R10.9: Unspecified abdominal pain ADDITIONAL CLINICAL INFORMATION: Ordering Provider Reason For Exam: Technologist Note: Additional: Right flank pain x1 week. On home antibiotics COMPARISON: October 09, 2017 Technique: Axial CT images from the lung bases through the pubicsymphysis were obtained without intravenous contrast. Findings: Breast prostheses. Central venous catheter tip supposing the rightatrium. There are groundglass infiltrates in the right medial lung base. Thismay be infectious or inflammatory including the possibility of a viral infection. This best seen image 6 series 3. No pneumoperitoneum. No intrahepatic biliary ductal dilatation. Post cholecystectomy clips. Food material or secretions in the stomach. Thereis no splenomegaly. No generalized gastric wall thickening. Noperipancreatic inflammatory changes. Adrenal glands normal in size. The kidneys show no hydronephrosis or hydroureter. No stone down the pathway of eitherureter. The infrarenal abdominal atherosclerotic aorta measures transverse dimension of 2.1 cm. Small bowel transition zone. No generalized small bowel wall thickening. In the pelvis, post hysterectomy. No adnexal mass lesion. There is no inguinal, obturator, or iliac chain adenopathy. Multilevel lumbar facet arthrosis. No compression deformity. No spondylolisthesis. The femoral heads are smooth. Surgical changes to the lower abdominal wall. IMPRESSION: Nonspecific groundglass infiltrates right lower lobe paraspinal. Thismay just be paraspinal atelectasis. Additional considerations includeatypical infiltrate such as viral. No bowel or urinary obstructive or inflammatory process. No right ureterolithiasis evident. > Interpreting Provider: Edilberto Wallace MD on 07/06/2022 4:28 PM Leisa Jaramillo FASHION ILLUSTRATOR-GRAPHIC PRODUCTION ARTIST CT ORDERABL ES * (ABNORMAL) DIFFERENTIAL MANUAL (06/19/2022 6:07 AM CDT) Only the most recent of10 resultswithin the time period is included. WBC Auto 7.5 x10E9/L 06/19/2022 6:36 AM CDT [facility] WBC Corrected 06/19/2022 6:36 AM CDT [facility] nRBC 06/19/2022 6:36 AM CDT [facility] Neutrophil % Manual 63 44 - 73 % 06/19/2022 6:36 AM CDT [facility] Lymphocytes % Manual 21 20 - 43 % 06/19/2022 6:36 AM CDT [facility] Monocytes % Manual 9 5 - 13 % 06/19/2022 6:36 AM CDT [facility] Eosinophils % Manual 4 0 - 6 % 06/19/2022 6:36 AM CDT [facility] Neutrophils Absolute Manual 4.95 2.01 - 7.14 x10E9/L 06/19/2022 6:36 AM CDT [facility] Lymphocytes Absolute Manual 1.58 1.07 - 3.94 x10E9/L 06/19/2022 6:36 AM CDT [facility] Monocytes Absolute Manual 0.68 0.26 - 1.07 x10E9/L 06/19/2022 6:36 AM CDT [facility] Eosinophils Absolute Manual 0.30 0.00 - 0.47 x10E9/L 06/19/2022 6:36 AM CDT [facility] Band % Manual 3 0 - 11 % 06/19/2022 6:36 AM CDT [facility] Cells Counted 100 # cells 06/19/2022 6:36 AM CDT [facility] Platelet Estimation Normal Normal, Adequate platelets 06/19/2022 6:36 AM CDT [facility] WBC Morph Normal 06/19/2022 6:36 AM CDT [facility] Anisocytosis Occasional (A) None 06/19/2022 6:36 AM CDT [facility] Hypochromia 2+(A) None 06/19/2022 6:36 AM CDT [facility] Blood BLOOD SPECIMEN / Unknown Venipuncture / Unknown 06/19/2022 6:07 AM CDT 06/19/2022 6:12 AM CDT Savi Gotti MD LAB - HEMATOLOGY ORD ERABLES Performing Organization Address City/[facility]/ZIP Co de Phone Number [facility] [address] [place], [place] [id number] * MAGNESIUM BLOOD (06/19/2022 6:07 AM CDT) Only the most recent of20 resultswithin the time period is included. Magnesium 1.9 1.6 - 2.6 mg/dL 06/19/2022 6:31 AM CDT [facility] Blood BLOOD SPECIMEN / Unknown Venipuncture / Unknown 06/19/2022 6:07 AM CDT 06/19/2022 6:12 AM CDT Savi Gotti MD LAB - CHEMISTRY ORDE ISSA Performing Organization Address City/[facility]/ZIP Co de Phone Number [facility] [address] [place] [phone] * VANCOMYCIN LEVEL TROUGH (06/18/2022 9:54 AM CDT) Only the most recent of6 resultswithin the time period is included. Vancomycin Trough 18.8 10.0 - 20.0 ug/mL 06/18/2022 10:18 AM CDT [facility] Blood BLOOD SPECIMEN / Unknown Venipuncture / Unknown 06/18/2022 9:54 AM CDT 06/18/2022 9:59 AM CDT Bradley Mejia MD LAB - CHEMISTRY AVA PARSONS Performing Organization Address [facility] [place]/[facility] Co de Phone Number [facility] [address] [address] * (ABNORMAL) GLUCOSE - POINT OF CARE (06/18/2022 7:24 AM CDT) Only the most recent of25 resultswithin the time period is included. [facility] Glucose WB/POC 112(H) 70 - 106 mg/dL 06/18/2022 7:46 AM CDT [facility] Specimen Type Cap Fingerstick 2021 7:46 AM CDT [facility] Blood BLOOD SPECIMEN / Unknown 06/18/2022 7:24 AM CDT 06/18/2022 7:46 AM CDT Savi Gotti MD LAB - POINT OF CARE ORDERABLES Performing Organization Address [facility] [place]/[facility] Co de Phone Number [facility] [address] [id number] * MRI LUMBAR SPINE WWO CONTRAST (06/15/2022 2:49 PM CDT) Only the most recent of3 resultswithin the time period is included. Anatomical Region Laterality Modality Spine Magnetic Resonan ce 06/15/2022 3:07 PM CDT Impressions 06/15/2022 3:14 PM CDT IMPRESSION: 1. Essentially unremarkable lumbar MRI. No features of discitis-osteomyelitis or evidence of an epidural abscess. 2. Mild lumbar disc degeneration and facet arthropathy without spinal canal stenosis. Mild foraminal narrowing at both L4-5 and L5-S1. > Interpreting Provider: Edil Morrison DO on 06/15/2022 3:14 PM Narrative 06/15/2022 3:14 PM CDT PROCEDURE: ??MRI LUMBAR SPINE WWO CONTRAST, DATE/TIME OF EXAM: ??06/15/2022 2:49 PM, LOCATION ??[facility] INDICATION: Sepsis. Low back pain. Concern for epidural abscess. COMPARISON: Thoracic MRI with contrast 06/15/2022. TECHNIQUE: Multiplanar, MultiPulse sequence imaging of the lumbar spine after the administration of 20 cc of Dotarem. FINDINGS: For purposes of this dictation, the lowest fully formed disc space is considered to be L5-S1. Alignment and curvature is normal. There is no spondylolisthesis. No compression fracture. No concerning marrow replacement. Minor deformity and accompanying subchondral fat deposition on the left at L3. There is very mild edema associated with the opposing facets at L5-S1 reactive secondary to a mild adjacent degenerative facet arthropathy. Mild disc degeneration is present with desiccation and slight loss of disc height. Mild osteophyte formation at L2-3 and L3-4. The conus terminates at L1 and is unremarkable. No cord tethering lesion is noted. No intrathecal or nerve root enhancement is identified. No compressive epidural fluid collection or mass. Individual level analysis: L1-L2: Unremarkable. L2-L3: Minor bulge and facet arthropathy without spinal canal or foraminal stenosis. L3-L4: Annular bulge. No spinal canal or significant foraminal stenosis. L4-5: Annular bulge and facet arthropathy. No spinal canal stenosis. Mild right foraminal narrowing. L5-S1: Annular bulge with facet arthropathy but no spinal canal stenosis. Mild bilateral foraminal narrowing. Paravertebral soft tissues are unremarkable. No paravertebral or psoas muscle myositis or abscess. Procedure Note Edil Morrison DO - 06/15/2022 PROCEDURE: MRI LUMBAR SPINE WWO CONTRAST, DATE/TIME OF EXAM:06/15/2022 2:49 PM, LOCATION [facility] INDICATION: Sepsis. Low back pain. Concern for epidural abscess. COMPARISON: Thoracic MRI with contrast 06/15/2022. TECHNIQUE: Multiplanar, MultiPulse sequence imaging of the lumbar spine after the administration of 20 cc of Dotarem. FINDINGS: For purposes of this dictation, the lowest fully formed disc space is considered to be L5-S1. Alignment and curvature is normal. There is no spondylolisthesis. No compression fracture. No concerning marrow replacement. Minor deformityand accompanying subchondral fat deposition on the left at L3. There is very mild edema associated with the opposing facets at L5-S1 reactivesecondary to a mild adjacent degenerative facet arthropathy. Mild disc degeneration is present with desiccation and slight loss ofdisc height. Mild osteophyte formation at L2-3 and L3-4. The conus terminates at L1 and is unremarkable. No cord tethering lesionis noted. No intrathecal or nerve root enhancement is identified. No compressive epidural fluid collection or mass. Individual level analysis: L1-L2: Unremarkable. L2-L3: Minor bulge and facet arthropathy without spinal canal orforaminal stenosis. L3-L4: Annular bulge. No spinal canal or significant foraminal stenosis. L4-5: Annular bulge and facet arthropathy. No spinal canal stenosis.Mild right foraminal narrowing. L5-S1: Annular bulge with facet arthropathy but no spinal canalstenosis. Mild bilateral foraminal narrowing. Paravertebral soft tissues are unremarkable. No paravertebral or psoas muscle myositis or abscess. IMPRESSION: 1. Essentially unremarkable lumbar MRI. No features of discitis-osteomyelitis or evidence of an epidural abscess. 2. Mild lumbar disc degeneration and facet arthropathy without spinalcanal stenosis. Mild foraminal narrowing at both L4-5 and L5-S1. > Interpreting Provider: Edil Morrison DO on 06/15/2022 3:14 PM Bradley Mejia MD MR ORDERABLES * MRI THORACIC SPINE WWO CONT (06/15/2022 2:27 PM CDT) Only the most recent of2 resultswithin the time period is included. Anatomical Region Laterality Modality Spine Magnetic Resonan ce 06/15/2022 3:01 PM CDT Impressions 06/15/2022 3:07 PM CDT IMPRESSION: 1. Unremarkable MRI of the thoracic spine. No findings of discitis-osteomyelitis or epidural abscess. > Interpreting Provider: Edil Morrison DO on 06/15/2022 3:07 PM Narrative 06/15/2022 3:07 PM CDT PROCEDURE: ??MRI THORACIC SPINE WWO CONT, DATE/TIME OF EXAM: ??06/15/2022 2:28 PM, LOCATION ??[facility] INDICATION: Sepsis. Low back pain. Concern for epidural abscess. COMPARISON: Thoracic MRI 12/11/2017. TECHNIQUE: Multiplanar, MultiPulse sequence imaging of the thoracic spine following administration of 20 cc of Dotarem. FINDINGS: Alignment and curvature is normal. There is no compression fracture. No concerning edema or marrow replacement. Disc heights and signal intensity are within normal limits. No focal disc herniation, significant spinal canal stenosis or spinal cord compression. There is no foraminal narrowing. Thoracic cord is smooth in contour and normal in signal intensity. No intramedullary or intradural extra medullary lesion is noted. There are no enlarged intrathecal flow voids. No compressive epidural fluid collection or mass. No concerning enhancement. The paravertebral soft tissues are unremarkable. Procedure Note Edil Morrison DO - 06/15/2022 PROCEDURE: MRI THORACIC SPINE WWO CONT, DATE/TIME OF EXAM: 06/15/2022 2:28 PM, LOCATION [facility] INDICATION: Sepsis. Low back pain. Concern for epidural abscess. COMPARISON: Thoracic MRI 12/11/2017. TECHNIQUE: Multiplanar, MultiPulse sequence imaging of the thoracic spine following administration of 20 cc of Dotarem. FINDINGS: Alignment and curvature is normal. There is no compression fracture. No concerning edema or marrow replacement. Disc heights and signalintensity are within normal limits. No focal disc herniation, significant spinal canal stenosis or spinalcord compression. There is no foraminal narrowing. Thoracic cord is smooth in contour and normal in signal intensity. No intramedullary or intradural extra medullary lesion is noted. There areno enlarged intrathecal flow voids. No compressive epidural fluidcollection or mass. No concerning enhancement. The paravertebral soft tissues are unremarkable. IMPRESSION: 1. Unremarkable MRI of the thoracic spine. No findings of discitis-osteomyelitis or epidural abscess. > Interpreting Provider: Edil Morrison DO on 06/15/2022 3:07 PM Bradley Mejia MD MR ORDERABLES * CULTURE ANAEROBE (06/14/2022 5:32 PM CDT) Only the most recent of30 resultswithin the time period is included. Culture No anaerobic organisms isolated KAM 06/29/2022 10:02 AM CDT [facility] Microbiology ENTIRE SHOULDER REGION / Unknown 06/14/2022 5:32 PM CDT 06/14/2022 6:54 PM CDT Narrative [facility] - 06/29/2022 10:02 AM CDT Surgical Description: Left Shoulder Suture, Hold Two Weeks For C.Acnes Mariano Guzmán MD LAB - MICROBIOLOGY O RDERABLES [facility] [address] [place] [address], [facility] [phone] * (ABNORMAL) HGB HCT PANEL (04/27/2022 4:47 AM CDT) Only the most recent of4 resultswithin the time period is included. Hemoglobin 10.9(L) 12.0 - 15.6 gm/dL 04/27/2022 5:18 AM CDT [facility] Hematocrit 34.4(L) 35.9 - 45.5 % 04/27/2022 5:18 AM CDT [facility] Blood BLOOD SPECIMEN / Unknown Lab Venipuncture / Unknown 04/27/2022 4:47 AM CDT 04/27/2022 5:10 AM CDT Mariano Guzmán MD LAB - HEMATOLOGY ORD ERABLES Performing Organization Address [facility] [place]/[facility]/ZIP Co de Phone Number [facility] [address] [phone] * (ABNORMAL) CREATININE BLOOD (04/26/2022 8:52 PM CDT) Only the most recent of2 resultswithin the time period is included. Creatinine 0.80 0.57 - 1.11 mg/dL 04/26/2022 9:13 PM CDT [facility] eGFR by CKD-EPI 88(L) >=90 mL/min/1.7 3 m2 04/26/2022 9:13 PM CDT [facility] Blood BLOOD SPECIMEN / Unknown Venipuncture / Unknown 04/26/2022 8:52 PM CDT 04/26/2022 8:59 PM CDT Mariano Guzmán MD LAB - CHEMISTRY ORDAdore PARSONS Performing Organization Address City/[facility]/ZIP Co de Phone Number [facility] [address] [phone] * XR SHOULDER 1 VW LEFT (04/26/2022 7:32 PM CDT) Only the most recent of2 resultswithin the time period is included. Anatomical Region Laterality Modality Upper Extremity Radiographic Gely ging 04/26/2022 8:37 PM CDT Narrative 04/26/2022 8:37 PM CDT PROCEDURE: ??XR SHOULDER LEFT 1VW, DATE/TIME OF EXAM: ??04/26/2022 7:32 PM, LOCATION ??[facility] INDICATION: Z96.612: Presence of left artificial shoulder joint M25.512: Pain in left shoulder G89.29: Other chronic pain COMPARISON: Left shoulder radiographs dated 05/22/2019. FINDINGS/IMPRESSION: There is a left reverse total shoulder arthroplasty. Surrounding subcutaneous emphysema is suggestive of acute postsurgical changes. No evidence of hardware failure, fracture, or dislocation is seen. > Interpreting Provider: Mayra Bell MD on 04/26/2022 8:37 PM Procedure Note Mayra Bell MD - 04/26/2022 PROCEDURE: XR SHOULDER LEFT 1VW, DATE/TIME OF EXAM: 04/26/2022 7:32 PM, LOCATION [facility] INDICATION: Z96.612: Presence of left artificial shoulder joint M25.512: Pain in left shoulder G89.29: Other chronic pain COMPARISON: Left shoulder radiographs dated 05/22/2019. FINDINGS/IMPRESSION: There is a left reverse total shoulder arthroplasty. Surrounding subcutaneous emphysema is suggestive of acute postsurgical changes. No evidence of hardware failure, fracture, or dislocation is seen. > Interpreting Provider: Mayra Bell MD on 04/26/2022 8:37 PM Mariano Guzmán MD DIAGNOSTIC IMAGING O RDERABLES * CULTURE WOUND+GRAM STAIN (04/26/2022 4:36 PM CDT) Only the most recent of3 resultswithin the time period is included. Culture No growth KAM 04/28/2022 10:38 PM CDT [facility] Gram Stain No organisms seen 022 10:38 PM CDT [facility] Gram Stain Rare Polymorphonuclear cells 04/28/2022 10:38 PM CDT [facility] Gram Stain Heavy Red blood cells 04/28/2022 10:38 PM CDT [facility] Microbiology ENTIRE SHOULDER REGION / Unknown 04/26/2022 4:36 PM CDT 04/26/2022 5:20 PM CDT Comment:Pre-op diagnosis: Z96.612 Narrative [facility] - 04/28/2022 10:38 PM CDT Surgical Description: Left Shoulder Sutures Mariano Guzmán MD LAB - MICROBIOLOGY O [place]ANTINO Performing Organization Address City/[facility] Co de Phone Number [facility] [address] [place] [address], [facility] [phone] * CULTURE FLUID+GRAM STAIN (04/26/2022 3:04 PM CDT) Only the most recent of2 resultswithin the time period is included. Culture No growth KAM 04/30/2022 6:28 AM CDT [facility] Gram Stain No organisms seen 022 6:28 AM CDT [facility] Gram Stain Heavy Red blood cells 04/30/2022 6:28 AM CDT [facility] Gram Stain No polymorphonuclear cells 04/30/2022 6:28 AM CDT [facility] Microbiology SYNOVIAL FLUID / Unknown 04/26/2022 3:04 PM CDT 04/26/2022 5:23 PM CDT Comment:Pre-op diagnosis: Z96.612 Narrative [facility] - 04/30/2022 6:28 AM CDT Surgical Description: Left Shoulder Joint Fluid Mariano Guzmán MD LAB - MICROBIOLOGY O [place] Performing Organization Address City/[facility] Co de Phone Number [facility] [address] [place] [address], [facility] [phone] * Peripheral Nerve Block (04/26/2022 12:22 PM CDT) Narrative Delfino Hanley MD - 04/26/2022 12:22 PM CDT Delfino Hanley MD ? 04/26/2022 12:24 PM Peripheral ??Nerve Block ?? Procedure: Peripheral Nerve Block Patient Location: ??Pre-op Preprocedure Section: ?? Indications: at surgeon's request and postop pain management. Pre-anesthetic Checklist: Patient identified, IV Checked, Site examined and clear, Risks and benefits discussed, Surgical consent verified, Monitors and equipment, Time-out performed, Informed consent obtained, Pre-op evaluation done, Questions answered/anesthesia questions answered, Allergies reviewed and Removal hand/wrist jewelry Monitors: Pulse Ox. Patient Condition: ??sedated, meaningful contact maintained throughout procedure Patient Position: supine Patient Sedated? ??Yes ? Sedation Type: ??mild ? Sedation Agents: ??fentaNYL (PF) (SUBLIMAZE) injection, 50 mcg midazolam (VERSED) injection, 2 mg Procedure Section ?? Laterality: left Block Performed: ??interscalene Prep: ??Chloraprep Strerile Field: gloves, mask, hat/cap and sterile ultrasound sleeve Skin localized with: lidocaine (XYLOCAINE) 1 % injection, 4 mL Needle Type: ??nerve stimulator Needle Gauge: ??21 Needle Length: ??50 mm Ultrasound Guided? ?? Yes ? Technique: ??in plane ? Visualization: ??Target identified, Local visualized surrounding nerve on ultrasound, Ultrasound image in chart, Needle tip visualized throughout the procedure and No intraneural or intravascular puncture occurred Injection was made incrementally with constant monitoring and aspirations every 5 mL's Injection Assessment: ?? Slow fractionated injection Block Agents or Additives used? Yes Block agents used: bupivacaine PF (MARCAINE PF) 0.5 % injection, 15 mL bupivacaine liposome (EXPAREL) 1.3 % injection, 10 mL Procedure Tolerance: tolerated well Procedure Start Time: 04/26/2022 12:13 PM. Procedure End Time: 04/26/2022 12:19 PM. Procedure Total Time: 6 ??minutes. Staff Section ? Anesthesia Provider: Delfino Hanley MD, Performed the procedure Delfino Hanley MD GENERAL ANESTH ESIA ORDERABLES * Peripheral Nerve Block (02/08/2022 9:04 AM CDT) Narrative Delfino Hanley MD - 02/08/2022 9:04 AM CDT Delfino Hanley MD ? 02/08/2022 ??9:06 AM Peripheral ??Nerve Block ?? Procedure: Peripheral Nerve Block Patient Location: ??Pre-op Preprocedure Section: ?? Indications: at surgeon's request and postop pain management. Pre-anesthetic Checklist: Patient identified, IV Checked, Site examined and clear, Risks and benefits discussed, Surgical consent verified, Monitors and equipment, Time-out performed, Informed consent obtained, Pre-op evaluation done, Questions answered/anesthesia questions answered, Allergies reviewed and Removal hand/wrist jewelry Monitors: Pulse Ox. Patient Condition: ??sedated, meaningful contact maintained throughout procedure Patient Position: supine Patient Sedated? ??Yes ? Sedation Type: ??mild ? Sedation Agents: ??fentaNYL (PF) (SUBLIMAZE) injection, 100 mcg midazolam (VERSED) injection, 2 mg Procedure Section ?? Laterality: left Block Performed: ??interscalene Prep: ??Chloraprep Strerile Field: gloves, mask, hat/cap and sterile ultrasound sleeve Skin localized with: lidocaine (XYLOCAINE) 1 % injection, 4 mL Needle Type: ??nerve stimulator Needle Gauge: ??21 Needle Length: ??50 mm Catheter?No Ultrasound Guided? ?? Yes ? Technique: ??in plane ? Visualization: ??Target identified, Local visualized surrounding nerve on ultrasound, Ultrasound image in chart, Needle tip visualized throughout the procedure and No intraneural or intravascular puncture occurred Injection was made incrementally with constant monitoring and aspirations every 5 mL's Injection Assessment: ?? Slow fractionated injection Block Agents or Additives used? Yes Block agents used: bupivacaine PF (MARCAINE PF) 0.5 % injection, 15 mL bupivacaine liposome (EXPAREL) 1.3 % injection, 10 mL Procedure Tolerance: tolerated well Procedure Start Time: 02/08/2022 8:46 AM. Procedure End Time: 02/08/2022 8:49 AM. Procedure Total Time: 3 ??minutes. Staff Section ? Anesthesia Provider: Delfino Hanley MD, Performed the procedure Delfino Hanley MD GENERAL ANESTH ESIA ORDERABLES * XR PELVIS W BILAT HIP 2VW (12/26/2021 3:35 PM CDT) Anatomical Region Laterality Modality Pelvis, Lower Extremity Radiogra phic Imaging 12/26/2021 3:39 PM CDT Impressions 12/26/2021 3:56 PM CDT Impression: Normal hips. Report drafted by Jose Helms M.D. (resident) Dr. SAMPSON Brower MD have personally reviewed and interpreted this examination/study. This report was electronically signed by SAMPSON GRECO MD ??on 12/26/2021 3:56 PM . Narrative 12/26/2021 3:56 PM CDT Exam: ??Pelvic and bilateral hip radiographs, 2 views History: ??M32.9: Systemic lupus erythematosus, unspecified SLE type, unspecified organ involvement status M25.551: Right hip pain R05.9: Cough Comparison: Radiographs of the sacrum and coccyx on 12/10/2020 Findings: Clips are seen in the pelvis. No acute fracture or dislocation is seen. The pubic symphysis is normal. The sacroiliac joints are normal. The hip joint spaces are normal. Procedure Note Sampson Greco MD - 12/26/2021 Exam: Pelvic and bilateral hip radiographs, 2 views History: M32.9: Systemic lupus erythematosus, unspecified SLE type, unspecified organ involvement status M25.551: Right hip pain R05.9: Cough Comparison: Radiographs of the sacrum and coccyx on 12/10/2020 Findings: Clips are seen in the pelvis. No acute fracture or dislocation is seen. The pubic symphysis is normal. The sacroiliac joints are normal. The hip joint spaces are normal. Impression: Normal hips. Report drafted by Jose Helms M.D. (resident) Dr. SAMPSON Brower MD have personally reviewed and interpreted this examination/study. This report was electronically signed by SAMPSON GRECO MD on12/26/2021 3:56 PM . Charisma Waggoner MD DIAGNOSTIC IMAG ING ORDERABLES * XR CERVICAL SPINE 2 OR 3VW (12/26/2021 3:35 PM CDT) Only the most recent of5 resultswithin the time period is included. Anatomical Region Laterality Modality Spine Radiographic Gely ging 12/26/2021 3:42 PM CDT Impressions 12/26/2021 4:06 PM CDT IMPRESSION: 1.Mild to moderate degenerative changes. 2.Cervical disc arthroplasty at C5-6. Report drafted by Helen Dorman MD (Technology Risk Intern). I, Dr. SAMPSON GRECO MD have personally reviewed and interpreted this examination/study. This report was electronically signed by SAMPSON GRECO MD ??on 12/26/2021 4:06 PM . Narrative 12/26/2021 4:06 PM CDT EXAMINATION: XR CERVICAL SPINE 2 OR 3VW HISTORY: M54.2: Cervicalgia COMPARISON: CT cervical spine 05/13/2021, cervical spine radiographs dated 12/10/2020. FINDINGS: Patient is status post C5-6 cervical intervertebral disc arthroplasty. No fracture or subluxation. Mild to moderate degenerative changes. Procedure Note Sampson Greco MD - 12/26/2021 EXAMINATION: XR CERVICAL SPINE 2 OR 3VW HISTORY: M54.2: Cervicalgia COMPARISON: CT cervical spine 05/13/2021, cervical spine radiographsdated 12/10/2020. FINDINGS: Patient is status post C5-6 cervical intervertebral disc arthroplasty.No fracture or subluxation. Mild to moderate degenerative changes. IMPRESSION: 1.Mild to moderate degenerative changes. 2.Cervical disc arthroplasty at C5-6. Report drafted by Helen Dorman MD (Technology Risk Intern). Dr. SAMPSON Brower MD have personally reviewed and interpreted this examination/study. This report was electronically signed by SAMPSON GRECO MD on12/26/2021 4:06 PM . Charisma Waggoner MD DIAGNOSTIC IMAG ING ORDERABLES * URINALYSIS W/MICROSCOPIC NO CULTURE (12/26/2021 3:09 PM CDT) Only the most recent of5 resultswithin the time period is included. Color UA Yellow Straw, Yellow 12/26/2021 4:01 PM [facility] Clarity UA Clear Clear 12/26/2021 4:01 PM [facility] Specific Mcloud UA 1.023 1.005 - 1.030 12/26/2021 4:01 PM [facility] pH UA 5.0 5.0 - 8.0 pH 12/26/2021 4:01 PM [facility] Protein UA Negative Negative 12/26/2021 4:01 PM [facility] Glucose UA Negative Negative 12/26/2021 4:01 PM [facility] Ketone UA Negative Negative 12/26/2021 4:01 PM [facility] Bilirubin UA Negative Negative 12/26/2021 4:01 PM [facility] Blood UA Negative Negative 12/26/2021 4:01 PM [facility] Nitrite UA Negative Negative 12/26/2021 4:01 PM [facility] Leukocyte Esterase Negative Negative 12/26/2021 4:01 PM [facility] Urobilinogen UA Negative Negative mg/dL 12/26/2021 4:01 PM [facility] RBC UA 0-2 None Seen, 0-2, 3-5 /HPF 12/26/2021 4:01 PM [facility] WBC UA 0-5 None Seen, 0-5 /HPF 12/26/2021 4:01 PM [facility] Squamous Epithelial Cells UA 0-2 None Seen, 0-2, 3-5 /HPF 12/26/2021 4:01 PM [facility] Mucus UA 1+ /LPF 12/26/2021 4:01 PM [facility] Urine URINE SPECIMEN OBTAINED BY CLEAN CATCH PROCEDURE / Unknown Collection / Unknown 12/26/2021 3:09 PM CDT 12/26/2021 3:49 PM T [facility] - 12/26/2021 4:01 PM [facility] Charisma Waggoner MD LAB - URINALYSI S ORDERABLES [facility] [address] [place] [address], [facility] [phone] * [place] DRAIN/INJECT LARGE JOINT/BURSA (10/04/2021 6:00 PM MANAGER WOUND CARE) Narrative Mariano Guzmán MD - 10/04/2021 6:00 PM MANAGER WOUND CARE Mariano Guzmán MD ? 10/04/2021 ??6:01 PM Under sterile conditions using alcohol prep the left shoulder was injected using a mixture of 2 mL 9 mg Celestone (6 mg/cc) ??and 3 mL of 1% Lidocaine through a posterior approach with a 22g needle. ??The patient tolerated the procedure well. ??No complications occurred. ??A bandaid was applied. ??Appropriate post-injection instructions were given and questions answered. Mariano Guzmán MD PROCEDURE/MINOR SURG ICAL ORDERABLES * LAB RESULTS ORDER (09/28/2021) Only the most recent of8 resultswithin the time period is included. 09/28/2021 Narrative 09/28/2021 Ordered by an unspecified provider. Scanned Document LAB - THERAPEUTIC DR HODA MONITORING ORDERABLES * FL JOINT INJECTION OR ASPIRATE (09/09/2021 1:53 PM MANAGER WOUND CARE) Anatomical Region Laterality Modality Upper Extremity, Lower Extremity, Pelvis, Chest Radiographic Imaging 09/09/2021 2:17 PM MANAGER WOUND CARE Impressions 09/09/2021 2:18 PM MANAGER WOUND CARE Attempted aspiration, no fluid could be obtained. *Reading Radiologist: Edilberto Mujica on 09/09/2021 at 2:18 PM Narrative 09/09/2021 2:18 PM MANAGER WOUND CARE Fluoroscopic left shoulder aspiration Indication: Pain Procedure/Findings: Written informed consent was obtained. Following sterile prep and administration of 1% Lidocaine local anesthesia the left shoulder joint was accessed under fluoroscopic guidance with a 20 gauge needle. No fluid could be obtained. The patient tolerated the procedure well. The patient's medication were reviewed. Procedure Note Edilberto Mujica MD - 09/09/2021 Fluoroscopic left shoulder aspiration Indication: Pain Procedure/Findings: Written informed consent was obtained. Following sterile prep and administration of 1% Lidocaine local anesthesia the left shoulder joint was accessed under fluoroscopic guidance with a 20 gauge needle. No fluid could be obtained. The patient tolerated the procedure well. The patient's medication were reviewed. IMPRESSION Attempted aspiration, no fluid could be obtained. *Reading Radiologist: Edilberto Mujica on 09/09/2021 at 2:18 PM Mariano Guzmán MD FLUOROSCOPY ORDERABL ES * PROC INJECTION JOINT (SMALL/INTERMED/MAJOR) (07/28/2021 7:25 AM MANAGER WOUND CARE) Narrative Simin Reyna MD - 07/28/2021 7:25 AM MANAGER WOUND CARE Simin Reyna MD ? 07/28/2021 ??7:27 AM After risks, benefits, alternatives were discussed, the patient elected to proceed forward with diagnostic lidocaine injection. The appropriate site and side was confirmed with the patient. The left shoulder was prepped with betadine and alcohol. Ethyl Chloride was used to anesthetize the skin.5 cc's of 1% lidocaine without epinephrine was injected into the site of maximal tenderness on the acomion. A sterile bandage was placed. The patient tolerated the procedure well without complications. Post-injection instructions were given to the patient. Simin Reyna MD PROCEDURE/MINOR SURG ICAL ORDERABLES * CT SHOULDER LEFT WO CONTRAST (07/08/2021 1:12 PM CDT) Anatomical Region Laterality Modality Upper Extremity Computed Tomogra phy 07/08/2021 1:47 PM CDT Impressions 07/08/2021 1:58 PM CDT IMPRESSION: 1. Reverse total shoulder arthroplasty. 2. No acute osseous abnormality. 3. Os acromiale. This report was electronically signed by SAMPSON GRECO MD ??on 07/08/2021 1:58 PM . Narrative 07/08/2021 1:58 PM CDT Exam: ??CT SHOULDER LEFT WO CONTRAST History: ??S42.122G: Closed displaced fracture of acromial process of left scapula with delayed healing, subsequent encounter Comparison: Left shoulder radiographs dated 06/24/2021. Left shoulder MRI dated 12/31/2018. TECHNIQUE: Noncontrast axial images were obtained. Sagittal and coronal reconstructions were performed. Findings: Reverse total shoulder arthroplasty is present. There is associated streak artifact. The prosthetic components are intact and there is no periprosthetic lucency. There is no acute fracture or dislocation. There is an os acromiale. Minimal degenerative changes are present at the acromioclavicular joint. The muscles are normal in bulk. Breast implants, a cervical intervertebral disc prosthesis, a left upper lobe granuloma, and calcified left hilar lymph nodes are visible. Procedure Note Sampson Greco MD - 07/08/2021 Exam: CT SHOULDER LEFT WO CONTRAST History: S42.122G: Closed displaced fracture of acromial process ofleft scapula with delayed healing, subsequent encounter Comparison: Left shoulder radiographs dated 06/24/2021. Left shoulderMRI dated 12/31/2018. TECHNIQUE: Noncontrast axial images were obtained. Sagittal and coronal reconstructions were performed. Findings: Reverse total shoulder arthroplasty is present. There is associatedstreak artifact. The prosthetic components are intact and there is no periprosthetic lucency. There is no acute fracture or dislocation. There is an os acromiale. Minimal degenerative changes are present at the acromioclavicular joint. The muscles are normal in bulk. Breastimplants, a cervical intervertebral disc prosthesis, a left upper lobe granuloma, and calcified left hilar lymph nodes are visible. IMPRESSION: 1. Reverse total shoulder arthroplasty. 2. No acute osseous abnormality. 3. Os acromiale. This report was electronically signed by SAMPSON GRECO MD on07/08/2021 1:58 PM . Simin Reyna MD CT ORDERABLES * OH POLYSOM 6/> YRS 4/> SHAYNA (07/05/2021 10:02 AM CDT) Narrative Venkatesh Mejia MD - 07/05/2021 10:02 AM CDT Venkatesh Mejia MD ? 07/05/2021 10:03 AM [facility] Accredited by the [place] [employer] [facility], First Floor [address] [place] [address] Telephone : [phone] ? Medical Records Patient Name: ?Dillan Mcnulty : ??1970 Date of Study: ??07/04/2021 Referring Physician: ??Key Guerrero MD Type of Montage: ??Respiratory Scoring System: ??[facility] FULL NIGHT DIAGNOSTIC POLYSOMNOGRAM INTERPRETATION (07/04/2021) Procedure: The polysomnogram was performed with a electroneurodiagnostic technologist in attendance. ??Central, occipital, and temporal EEG, EOG, submentalis, EMG, nasal thermistor, nasal pressure, thoracoabdominal motion, anterior tibialis EMG, snore sensor, and pulse oximetry were monitored. ??Sleep stages, periodic limb movements, and EEG arousals were scored in 30-second epochs according to the AASM Scoring Manual. ??Apnea-hypopnea index was calculated using the recommended definition of hypopnea for scoring events. ??Data acquisition, collection, and scoring have been validated and clinically correlated. Sleep History: Ms. Chela Mcnulty, a 51 year old female, was referred to the [facility] by Key Guerrero MD for the evaluation of suspected obstructive sleep apnea (BIANCA). Current Outpatient Medications: ?busPIRone (BUSPAR) 10 MG tablet, Take 10 mg by mouth 2 times daily with morning and evening meal, Disp: , Rfl: ?cyclobenzaprine (FLEXERIL) 10 MG tablet, Take 10 mg by mouth as directed , Disp: , Rfl: 3 ?estradiol (ESTRACE) 0.1 MG/GM vaginal cream, Insert 1 g into the vagina Two times a week , Disp: , Rfl: ?famotidine (PEPCID) 40 MG tablet, Take 40 mg by mouth once daily , Disp: , Rfl: ?HYDROcodone-acetaminophen (NORCO) 5-325 MG tablet, Take 1 tablet by mouth every 6 hours as needed, Disp: , Rfl: ?hydroxychloroquine (PLAQUENIL) 200 MG tablet, Take 1 (one) tablet by mouth once daily, Disp: 90 tablet, Rfl: 1 ?levothyroxine (SYNTHROID) 50 MCG tablet, Take 50 mcg by mouth once daily, Disp: , Rfl: ?lisinopril (PRINIVIL; ZESTRIL) 40 MG tablet, Take 40 mg by mouth once daily , Disp: , Rfl: ?methocarbamol (ROBAXIN) 750 MG tablet, Take 1 (one) tablet by mouth every 6 hours as needed for Muscle Spasms, Disp: 20 tablet, Rfl: 0 ?metoprolol succinate XL 24hr (TOPROL XL) 200 MG tablet, Take 0.5 (one-half) tablet by mouth once daily, Disp: 30 tablet, Rfl: 0 ?multivitamin daily (THERAGRAN) tablet, Take 1 tablet by mouth daily with food, Disp: , Rfl: ?omeprazole (PRILOSEC) 40 MG capsule, Take 40 mg by mouth daily before breakfast , Disp: , Rfl: ?oxyCODONE (OXY-IR) 5 MG capsule, Take 1 (one) capsule by mouth every 12 hours as needed for Pain, Disp: 15 capsule, Rfl: 0 ?pregabalin (LYRICA) 150 MG capsule, Take 150 mg by mouth as directed , Disp: , Rfl: ?pregabalin (LYRICA) 75 MG capsule, Take 75 mg by mouth 2 times daily, Disp: , Rfl: ?traZODone (DESYREL) 150 MG tablet, Take 150 mg by mouth nightly as needed , Disp: , Rfl: 3 ?Venlafaxine HCl (VENLAFAXINE ER 24HR) 225 MG tablet, Take 225 mg by mouth daily with breakfast , Disp: , Rfl: 4 ?vitamin D, ergocalciferol, (DRISDOL) 1.25 MG (04883 UT) capsule, Take 50,000 Units by mouth every 7 days , Disp: , Rfl: DIAGNOSTIC STUDY Sleep Architecture: During this diagnostic study, the patient was monitored from 10:23 pm to 6;11 am. The patient slept for 209 minutes and had decreased sleep efficiency of 44.6%. ??The patient's initial sleep latency was within normal limits at 14.5 minutes. ??The initial REM latency was prolonged at 266 minutes. The sleep architecture was as follows: ??stage N1: ??9.8%; stage N2: ??84.9%; stage N3: ??2.9%; stage REM: ??2.4%. Respiratory Analysis: The patient's overall apnea-hypopnea index (AHI) was within normal limits at 1.7 per hour while the respiratory effort-related arousal index was increased at 18.1 per hour. The overall respiratory disturbance index (RDI) was 19.8 per hour. ?? The patient slept entirely in the lateral position during the diagnostic study. ??The REM AHI was 0 per hour while the REM RERA index was 12 per hour. ??There were 0 obstructive apneas, 0 central apneas, 0 mixed apneas, 6 hypopneas, and 63 respiratory effort-related arousals (RERA). ??There was no evidence of periodic breathing. ?? Oximetry Data: The minimum oxygen saturation was within normal limits at 90% during REM sleep and decreased at 85% during non-REM sleep. ??The time spent with oxygen saturation less than 90% was 16.5% of of the total diagnostic recording time. ??However, the time spent hypoxemic on the oximetry graph was most likely artifactual since appeared to occur while awake and was corrected with repositioning the oximeter probe. Snoring Profile: Mild, rare snoring was detected during this study. Periodic Limb Movements: The patient's periodic limb movement index was within normal limits at 0 per hour. ?? EEG Profile: The patient's total arousal index was elevated at 21.5 per hour. ?? Approximately 84% of the arousals was due to respiratory events, 0% was due to leg movements, and 16% was due to spontaneous arousals. ?? There was no epileptiform activity during sleep. Cardiac Profile: EKG showed normal sinus rhythm. ??No clinically significant arrhythmia was noted. Parasomnias: No parasomnia was noted during this diagnostic study. IMPRESSION: 1. ??Moderate upper airway resistance syndrome when sleeping entirely in the lateral position 2. ??Poor sleep efficiency RECOMMENDATIONS: Suggest CPAP or oral appliance therapy if patient has neurocognitive symptoms, mood disorder, insomnia, cardiovascular disease, or diabetes mellitus Venkatesh Baeza ??MD Jackie, MSP, FCCP, [facility] Dog Day Care Attendant, [facility] Professor of Internal Medicine Adjunct Irrigator of Neurology Division of Pulmonary, Critical Care, and Sleep Medicine [facility] This note was electronically signed on 07/05/2021. CC: ??Key Guerrero MD [id number] [facility], ??[place] [id number] Key Guerrero MD Venkatesh Mejia MD PROCEDURE/MINOR ERICKA GICAL ORDERABLES * XR FOOT RIGHT 3VW OR MORE (06/06/2021 1:35 PM CDT) Only the most recent of5 resultswithin the time period is included. Anatomical Region Laterality Modality Ankle / Foot Radiographic Gely ging 06/06/2021 2:38 PM CDT Impressions 06/06/2021 2:40 PM CDT IMPRESSION: First tarsometatarsal arthrodesis and calcaneal osteotomy, unchanged in alignment. This report was electronically signed by SAMPSON GRECO MD ??on 06/06/2021 2:40 PM . Narrative 06/06/2021 2:40 PM CDT Exam: 1. XR CALCANEUS RIGHT 2VW 2. XR FOOT RIGHT 3VW History: ??M21.41: Pes planovalgus, acquired, right M21.6X1: Gastrocnemius equinus of right lower extremity Comparison: Right foot radiographs 12/10/2020 Findings: Right foot: Internal fixation of Lisfranc region with several screws. The hardware is intact and the osseous alignment is unchanged. ??Nonsurgical joint spaces are maintained. A dorsal talar head spur is noted. Right calcaneus: Calcaneal osteotomy with 2 screws is redemonstrated. The screws are intact. One of the screw heads protrudes posteriorly by 5 mm, slightly increased. The osseous alignment is unchanged. No acute fracture identified. Procedure Note Sampson Greco MD - 06/06/2021 Exam: 1. XR CALCANEUS RIGHT 2VW 2. XR FOOT RIGHT 3VW History: M21.41: Pes planovalgus, acquired, right M21.6X1: Gastrocnemius equinus of right lower extremity Comparison: Right foot radiographs 12/10/2020 Findings: Right foot: Internal fixation of Lisfranc region with several screws. The hardwareis intact and the osseous alignment is unchanged. Nonsurgical joint spaces are maintained. A dorsal talar head spur is noted. Right calcaneus: Calcaneal osteotomy with 2 screws is redemonstrated. The screws are intact. One of the screw heads protrudes posteriorly by 5 mm, slightly increased. The osseous alignment is unchanged. No acute fracture identified. IMPRESSION: First tarsometatarsal arthrodesis and calcaneal osteotomy, unchanged in alignment. This report was electronically signed by SAMPSON GRECO MD on06/06/2021 2:40 PM . Yadiel Duffy DO DIAGNOSTIC IMAGING O RDERABLES * XR CALCANEUS RIGHT 2VW OR MORE (06/06/2021 1:35 PM CDT) Only the most recent of2 resultswithin the time period is included. Anatomical Region Laterality Modality Ankle / Foot, Lower Extremity Ra diographic Imaging 06/06/2021 2:38 PM CDT Impressions 06/06/2021 2:40 PM CDT IMPRESSION: First tarsometatarsal arthrodesis and calcaneal osteotomy, unchanged in alignment. This report was electronically signed by SAMPSON GRECO MD ??on 06/06/2021 2:40 PM . Narrative 06/06/2021 2:40 PM CDT Exam: 1. XR CALCANEUS RIGHT 2VW 2. XR FOOT RIGHT 3VW History: ??M21.41: Pes planovalgus, acquired, right M21.6X1: Gastrocnemius equinus of right lower extremity Comparison: Right foot radiographs 12/10/2020 Findings: Right foot: Internal fixation of Lisfranc region with several screws. The hardware is intact and the osseous alignment is unchanged. ??Nonsurgical joint spaces are maintained. A dorsal talar head spur is noted. Right calcaneus: Calcaneal osteotomy with 2 screws is redemonstrated. The screws are intact. One of the screw heads protrudes posteriorly by 5 mm, slightly increased. The osseous alignment is unchanged. No acute fracture identified. Procedure Note Sampson Greco MD - 06/06/2021 Exam: 1. XR CALCANEUS RIGHT 2VW 2. XR FOOT RIGHT 3VW History: M21.41: Pes planovalgus, acquired, right M21.6X1: Gastrocnemius equinus of right lower extremity Comparison: Right foot radiographs 12/10/2020 Findings: Right foot: Internal fixation of Lisfranc region with several screws. The hardwareis intact and the osseous alignment is unchanged. Nonsurgical joint spaces are maintained. A dorsal talar head spur is noted. Right calcaneus: Calcaneal osteotomy with 2 screws is redemonstrated. The screws are intact. One of the screw heads protrudes posteriorly by 5 mm, slightly increased. The osseous alignment is unchanged. No acute fracture identified. IMPRESSION: First tarsometatarsal arthrodesis and calcaneal osteotomy, unchanged in alignment. This report was electronically signed by SAMPSON GRECO MD on06/06/2021 2:40 PM . Yadiel Duffy DO DIAGNOSTIC IMAGING O RDERABLES * CT CERVICAL SPINE NON CONTRAST - suspected c-spine fracture (05/13/2021 9:33 PM CDT) Anatomical Region Laterality Modality Spine Computed Tomogra phy 05/13/2021 9:43 PM CDT Impressions 05/14/2021 10:27 AM CDT IMPRESSION: 1. No acute process is identified. There is no fracture or posterior disc abnormality. 2. The postsurgical changes of prosthetic disc placement at C5-C6 are uncomplicated. The alignment of prosthetic disc is satisfactory. 3. Chronic findings as discussed above. Report drafted by Edie Carter MD (residential sales). I, Dr. CYRUS RODRIGUEZ have personally reviewed and interpreted this examination/study. This report was electronically signed by CYRUS RODRIGUEZ ??on 05/14/2021 10:27 AM . Narrative 05/14/2021 10:27 AM CDT EXAMINATION: CT OF THE CERVICAL SPINE WITHOUT CONTRAST HISTORY: M54.2: Neck pain TECHNIQUE: CT of the cervical spine were performed without contrast according to standard protocol. COMPARISON: None. CORRELATION: Cervical spinal radiograph dated 12/10/2020. FINDINGS: There is gentle cervical kyphosis centered at C5-C6, likely due to flexion of the neck. The previous radiograph demonstrates normal lordosis of cervical spine. A prosthetic disc at C5-C6 is again identified with optimal alignment on the CT images and no evidence of loosening. No fracture, perched facet, or suspicious intrinsic bony lesion is identified. Other than middle atlantoaxial joint osteoarthritis including a small ossicle in apical space and a fusion defect of posterior ring of C1 in the midline, the craniocervical junction appears normal. 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 The spinous process of C2 is not fully developed. The intervertebral disc spaces outside the surgical levels are normal in height. A large anterior endplate osteophyte arises from the inferior endplate of C4. Nonbridging syndesmophyte of C3 is noted. There is segmental calcification of anterior longitudinal ligament at C4-C5 There is a large anterior disc osteophyte at the C4-C5 level. No posterior disc herniation or central canal stenosis is seen. The facets appear normal. The uncovertebral joints appear normal. No neural foraminal stenosis is seen. No soft tissue abnormality is identified. Procedure Note Cyrus Rodriguez MD - 05/14/2021 EXAMINATION: CT OF THE CERVICAL SPINE WITHOUT CONTRAST HISTORY: M54.2: Neck pain TECHNIQUE: CT of the cervical spine were performed without contrast according to standard protocol. COMPARISON: None. CORRELATION: Cervical spinal radiograph dated 12/10/2020. FINDINGS: There is gentle cervical kyphosis centered at C5-C6, likely due toflexion of the neck. The previous radiograph demonstrates normal lordosis of cervical spine. A prosthetic disc at C5-C6 is again identified with optimal alignment on the CT images and no evidence of loosening. No fracture, perched facet,or suspicious intrinsic bony lesion is identified. Other than middle atlantoaxial joint osteoarthritis including a small ossicle in apical space and a fusion defect of posterior ring of C1 in the midline, the craniocervical junction appears normal. A well-corticated small ossific density is seen at the location of the spinous process of C2 suggestiveof a nonunited non-developed ossification center. The spinous process of C2 is not fully developed. The intervertebral disc spaces outside the surgical levels are normal in height. A large anterior endplate osteophyte arises from the inferior endplate of C4. Nonbridging syndesmophyte of C3 is noted. There is segmental calcification of anterior longitudinal ligament at C4-C5 There is a large anterior disc osteophyte at the C4-C5 level. No posterior disc herniation or central canal stenosis is seen. Thefacets appear normal. The uncovertebral joints appear normal. No neuralforaminal stenosis is seen. No soft tissue abnormality is identified. IMPRESSION: 1. No acute process is identified. There is no fracture or posteriordisc abnormality. 2. The postsurgical changes of prosthetic disc placement at C5-C6 are uncomplicated. The alignment of prosthetic disc is satisfactory. 3. Chronic findings as discussed above. Report drafted by Edie Carter MD (residential sales). I, Dr. CYRUS RODRIGUEZ have personally reviewed and interpreted this examination/study. This report was electronically signed by CYRUS RODRIGUEZ on 110:27 AM . Ashok Abdul MD CT ORDERABLES * VITAMIN D 25-HYDROXY (12/10/2020 2:49 PM CDT) Only the most recent of6 resultswithin the time period is included. [facility] Vitamin D, 25 Hydroxy 49.0 See comment: ng/mL 12/10/2020 4:20 PM CDT [facility] Comment: The recommendations for 25-Hydroxy Vitamin D clinical decision points are as follows: ? Deficient: ? <20.0 ng/mL ? Insufficient: ??20.0 - 29.9 ng/mL ? Sufficient: ? > or =30.0 ng/mL If the 25-Hydroxy Vitamin D results are inconsitent with clinical evidence, it is recommended that follow-up testing using a method such as LC/MS/MS be performed to confirm the result. Reference: ?The Endocrine Society Clinical Practice Guidelines. 2010 ? Blood BLOOD SPECIMEN / Unknown Lab Venipuncture / Unknown 12/10/2020 2:49 PM CDT 12/10/2020 3:34 PM CDT Charisma Sherry Waggoner MD LAB - CHEMISTRY ORDERABLES [facility] [address] [place] [id number], [facility] [phone] * XR SACRUM AND COCCYX (12/10/2020 2:40 PM CDT) Anatomical Region Laterality Modality Spine Radiographic Gely ging 12/10/2020 2:46 PM CDT Impressions 12/10/2020 2:55 PM CDT IMPRESSION: Minimal degenerative changes of the bilateral sacroiliac joints. Dictated by Anjelica Kelly DO (resident). I, Dr. SAMPSON GRECO MD have personally reviewed and interpreted this examination/study. This report was electronically signed by SAMPSON GRECO MD ??on 12/10/2020 2:55 PM . Narrative 12/10/2020 2:55 PM CDT ORDER DATE: 12/10/2020 2:40 PM EXAMINATION: XR SACRUM AND COCCYX, 3 views HISTORY: M25.50: Polyarthralgia COMPARISON: CT abdomen/pelvis from 05/12/2018 ([facility]) FINDINGS: No acute fracture is identified. The femoral heads appear well-seated within their respective acetabula. The hip joint spaces are preserved. The pubic symphysis is intact. There are minimal degenerative changes of the bilateral sacroiliac joints with sclerosis. There is no ankylosis, erosion, narrowing, or widening of the SI joints. There are degenerative changes in the imaged lumbar spine. Surgical clips are seen in the pelvis. Procedure Note Sampson Greco MD - 12/10/2020 ORDER DATE: 12/10/2020 2:40 PM EXAMINATION: XR SACRUM AND COCCYX, 3 views HISTORY: M25.50: Polyarthralgia COMPARISON: CT abdomen/pelvis from 05/12/2018 ([facility]) FINDINGS: No acute fracture is identified. The femoral heads appear well-seated within their respective acetabula. The hip joint spaces are preserved.The pubic symphysis is intact. There are minimal degenerative changes of the bilateral sacroiliac joints with sclerosis. There is no ankylosis, erosion, narrowing, or widening of the SI joints. There are degenerative changes in the imaged lumbar spine. Surgical clips are seen in thepelvis. IMPRESSION: Minimal degenerative changes of the bilateral sacroiliac joints. Dictated by Anjelica Kelly DO (resident). I, Dr. SAMPSON GRECO MD have personally reviewed and interpreted this examination/study. This report was electronically signed by SAMPSON GRECO MD on12/10/2020 2:55 PM . Charisma Waggoner MD DIAGNOSTIC IMAG ING ORDERABLES * CARDIAC STRESS TEST ORDER (10/28/2020 8:01 PM MANAGER WOUND CARE) Narrative 10/28/2020 8:01 PM MANAGER WOUND CARE Ordered by an unspecified provider. Scanned Document CARDIAC SERVICES ORD ERABLES * ETT LINE PERFORMABLE (10/25/2020 8:07 AM MANAGER WOUND CARE) Narrative Angie Lanier APRN-CRNA - 10/25/2020 8:07 AM MANAGER WOUND CARE Angie Lanier APRN-CRNA ? 10/25/2020 ??8:08 AM Endotracheal Tube Placement: ? Patient Location: OR. Intubation Event Date/Time: ??10/25/2020 7:44 AM Procedure: intubation ([id number]). Procedure Section: ?? Sedation: under general anesthesia. Indications for Airway Management: ??anesthesia Procedure pretreatments used? ??No Induction: rapid sequence Patient Position: ??sniffing Mask Ventilation: not attempted. Blade Type: Anahi Blade Size: 4 Laryngoscopy View: grade 1 (full cords) Intubation Adjuncts: stylet and cricoid pressure Tube: endotracheal tube Placement: oral Tube type: cuff - inflated Tube Size (MM): 7 Depth of Insertion (CM): 21 Measured From: lips Cuff volume (mL): ??6 Cuff Inflated With: air Number of Attempts: 1. Placement Verified By: direct visualization, bilateral breath sounds, chest auscultation and CO2 monitor Tube secured with: ??adhesive tape. Difficult Airway? ??No. Procedure Start Time: 10/25/2020 7:44 AM. Staff Section ?? Anesthesia Provider: Angie Lanier APRN-[employer] LAW CLERK, Performed the procedure Additional Comments: Atraumatic intubation, dentition and lips same as baseline. Head and neck neutral throughout procedure.. Frida Shaw DO GENERAL ANESTHESIA ORDERABLES * Peripheral Nerve Block (10/25/2020 7:20 AM MANAGER WOUND CARE) Narrative Frida Shaw, DO - 10/25/2020 7:20 AM MANAGER WOUND CARE Frida Shaw, ? 10/25/2020 ??9:04 AM Peripheral ??Nerve Block ?? Procedure: Peripheral Nerve Block Patient Location: ??Pre-op Preprocedure Section: ?? Indications: at surgeon's request, at patient's request and postop pain management. Pre-anesthetic Checklist: Patient identified, IV Checked, Site examined and clear, Risks and benefits discussed, Surgical consent verified, Monitors and equipment, Time-out performed, Informed consent obtained, Pre-op evaluation done, Questions answered/anesthesia questions answered, Allergies reviewed and Removal hand/wrist jewelry Monitors: BP and Pulse Ox. Patient Condition: ??sedated, meaningful contact maintained throughout procedure Patient Position: supine Patient Sedated? ??Yes ? Sedation Type: ??mild ? Sedation Agents: ??fentaNYL (PF) (SUBLIMAZE) injection, 100 mcg midazolam (VERSED) injection, 2 mg Procedure Section ?? Laterality: right Block Performed: ??popliteal and saphenous Prep: ??Chloraprep Strerile Field: gloves, mask and hat/cap Skin localized with: lidocaine (XYLOCAINE) 1 % injection, 1 mL Needle Type: ??Echogenic insultaed Needle Gauge: ??21 Needle Length: ??80 mm Ultrasound Guided? ?? Yes ? Technique: ??in plane Injection was made incrementally with constant monitoring and aspirations every 5 mL's Injection Assessment: ?? Slow fractionated injection Block Agents or Additives used? Yes Block agents used: ropivacaine (NAROPIN) 5 MG/ML (0.5%) injection, 40 mL dexamethasone (DECADRON) injection, 4 mg Procedure Tolerance: tolerated well Assessment: completed Procedure Start Time: 10/25/2020 7:20 AM. Procedure End Time: 10/25/2020 7:29 AM. Procedure Total Time: 9 ??minutes. Staff Section ?? Anesthesia Provider: Frida Shaw DO, Performed the procedure Frida Shaw DO GENERAL ANESTHESIA ORDERABLES * URINALYSIS REFLEX TO MICROSCOPIC NO CULTURE (08/31/2020 2:44 PM MANAGER WOUND CARE) Only the most recent of7 resultswithin the time period is included. Color UA Yellow Straw, Yellow, Colorless 08/31/2020 4:37 PM [facility] Clarity UA Slt Cloudy Clear, Slt Cloudy 08/31/2020 4:37 PM [facility] Specific Mcloud UA 1.021 1.005 - 1.030 08/31/2020 4:37 PM [facility] pH UA 5.0 5.0 - 8.0 pH 08/31/2020 4:37 PM [facility] Protein UA Negative Negative mg/dL 08/31/2020 4:37 PM [facility] Glucose UA Negative Negative mg/dL 08/31/2020 4:37 PM [facility] Ketone UA Negative Negative mg/dL 08/31/2020 4:37 PM [facility] Bilirubin UA Negative Negative mg/dL 08/31/2020 4:37 PM [facility] Blood UA Negative Negative 08/31/2020 4:37 PM [facility] Nitrite UA Negative Negative 08/31/2020 4:37 PM [facility] Leukocyte Esterase Negative Negative 08/31/2020 4:37 PM [facility] Urobilinogen UA Negative Negative mg/dL 08/31/2020 4:37 PM [facility] RBC UA 0-2 None Seen, 0-2, 3-5 /HPF 08/31/2020 4:37 PM [facility] WBC UA 0-5 None Seen, 0-5 /HPF 08/31/2020 4:37 PM [facility] Squamous Epithelial Cells UA 0-2 None Seen, 0-2 /HPF 08/31/2020 4:37 PM [facility] Mucus UA 1+ None, 1+ /LPF 08/31/2020 4:37 PM [facility] Urine URINE SPECIMEN OBTAINED BY CLEAN CATCH PROCEDURE / Unknown Collection / Unknown 08/31/2020 2:44 PM MANAGER WOUND CARE 08/31/2020 4:20 PM MANAGER WOUND CARE Narrative [facility] - 08/31/2020 4:37 PM MANAGER WOUND CARE Charisma Sherry Waggoner MD LAB - URINALYSI S ORDERABLES Performing Organization Address City/State/[facility] Co de Phone Number [facility] [address] [place] [address], [facility] [phone] * MRI ANKLE RIGHT WO CONTRAST (05/24/2020 2:51 PM CDT) Anatomical Region Laterality Modality Ankle / Foot Magnetic Resonan ce 05/26/2020 12:4 8 PM CDT Impressions 05/26/2020 1:40 PM CDT There is partial tear of the posterior tibial tendon. There is a degenerative change of the subtalar joints and mid-tarsal joints which is mild. Edited by Cora Montoya on 05/26/2020 1:12 PM *Reading Radiologist: Ankur Chauhan on 05/26/2020 at 1:40 PM Narrative 05/26/2020 1:40 PM CDT MRI RIGHT ANKLE HISTORY: Pain with questionable posterior tibial tendon tear TECHNIQUE: Routine MR is obtained on a high-field strength magnet without prior imaging for comparison. FINDINGS: Marrow signal intensity is grossly normal. The tibiotalar articulation and talar dome are normal. There is midfoot degenerative change which is mild. No fracture or dislocation or joint effusion is seen. The anterior and posterior tibiofibular and talofibular ligaments are normal. The calcaneofibular ligament is poorly seen but is likely normal. The visualized medial collateral ligaments are normal. There is abnormal enlargement of the posterior tibial tendon and and there is abnormal intrasubstance signal within the posterior tibial tendon distal to the ankle joint. A small amount of fluid is present within the posterior tibial tendon sheath. Otherwise the visualized lateral and medial flexor tendons are normal. The visualized anterior extensor tendons are normal. There is a small amount of fluid within the retrocalcaneal bursa. The Achilles tendon is otherwise normal. The plantar fascia is normal Contents of the tarsal tunnel appear grossly unremarkable. The subtalar joints are mildly degenerative. Procedure Note Ankur Chauhan MD - 05/26/2020 MRI RIGHT ANKLE HISTORY: Pain with questionable posterior tibial tendon tear TECHNIQUE: Routine MR is obtained on a high-field strength magnet without prior imaging for comparison. FINDINGS: Marrow signal intensity is grossly normal. The tibiotalar articulation and talar dome are normal. There is midfoot degenerative change which is mild. No fracture or dislocation or joint effusion is seen. The anterior and posterior tibiofibular and talofibular ligaments are normal. The calcaneofibular ligament is poorly seen but is likely normal. The visualized medial collateral ligaments are normal. There is abnormal enlargement of the posterior tibial tendon and and there is abnormal intrasubstance signal within the posterior tibial tendon distal to the ankle joint. A small amount of fluid is present within the posterior tibial tendon sheath. Otherwise the visualized lateral and medial flexor tendons are normal. The visualized anterior extensor tendons are normal. There is a small amount of fluid within the retrocalcaneal bursa. The Achilles tendon is otherwise normal. The plantar fascia is normal Contents of the tarsal tunnel appear grossly unremarkable. The subtalar joints are mildly degenerative. IMPRESSION There is partial tear of the posterior tibial tendon. There is a degenerative change of the subtalar joints and mid-tarsal joints which is mild. Edited by Cora Montoya on 05/26/2020 1:12 PM *Reading Radiologist: Ankur Chauhan on 05/26/2020 at 1:40 PM Jaja Vale MD MR ORDERABLES * XR ANKLE LEFT 2VW (10/21/2019 2:25 PM MANAGER WOUND CARE) Anatomical Region Laterality Modality Lower Extremity Radiographic Gely ging 10/22/2019 7:46 AM MANAGER WOUND CARE Impressions 10/22/2019 8:03 AM MANAGER WOUND CARE IMPRESSION: Pes planovalgus. This report was electronically signed by SAMPSON GRECO MD ??on 10/22/2019 8:03 AM . Narrative 10/22/2019 8:03 AM MANAGER WOUND CARE Exam: 1. Right foot radiographs 3 view 2. Right ankle radiographs 3 view 3. Bilateral ankle radiograph, single AP weightbearing (Abbey) view History: ??R52: Pain Comparison: None. Findings: Right foot: No fracture or dislocation is seen. The joint spaces are normal. No erosions are present. Early osteophyte formation is noted at the first metatarsophalangeal joint. Pes planus is noted. Right ankle: No fracture or dislocation is present. The joint spaces are normal. No erosions are seen. ??Bone density appears normal. ??The soft tissues are normal. Bilateral ankle: There is mild hindfoot valgus bilaterally. Procedure Note Sampson Greco MD - 10/22/2019 Exam: 1. Right foot radiographs 3 view 2. Right ankle radiographs 3 view 3. Bilateral ankle radiograph, single AP weightbearing ([place]bey) view History: R52: Pain Comparison: None. Findings: Right foot: No fracture or dislocation is seen. The joint spaces are normal. No erosions are present. Early osteophyte formation is noted at the first metatarsophalangeal joint. Pes planus is noted. Right ankle: No fracture or dislocation is present. The joint spaces are normal. No erosions are seen. Bone density appears normal. The soft tissues are normal. Bilateral ankle: There is mild hindfoot valgus bilaterally. IMPRESSION: Pes planovalgus. This report was electronically signed by SAMPSON GRECO MD on10/22/2019 8:03 AM . Anjelica Gutierres MD DIAGNOSTIC IMAGING O RDERABLES * XR SPINE ENTIRE 2 OR 3VW (10/20/2019 2:46 PM MANAGER WOUND CARE) Only the most recent of2 resultswithin the time period is included. Anatomical Region Laterality Modality Spine Radiographic Gely ging 10/20/2019 4:14 PM MANAGER WOUND CARE Impressions 10/21/2019 7:27 AM MANAGER WOUND CARE IMPRESSION: C5-6 intervertebral disc arthroplasty. No significant scoliosis or coronal/sagittal imbalance. Report dictated by Yadiel Lechuga DO (residential sales). I, Dr. SAMPSON GRECO MD have personally reviewed and interpreted this examination/study. This report was electronically signed by SAMPSON GRECO MD ??on 10/21/2019 7:27 AM . Narrative 10/21/2019 7:27 AM MANAGER WOUND CARE EXAMINATION: Entire Spine Radiographs, AP and lateral views, 8 images total HISTORY: M54.2: Neck pain COMPARISON: 05/14/2019. FINDINGS: There is a right internal jugular approach Port-A-Cath with the tip in the superior vena cava. A right total reverse shoulder arthroplasty is partially imaged. Postoperative changes of intervertebral disc arthroplasty at C5-6 are again seen. There is straightening of the cervical lordosis but normal alignment of thoracic and lumbar spine. There is approximately 2 mm retrolisthesis of C5 on C6. There is no significant scoliosis or coronal or sagittal imbalance. There is a small divot in the anterior superior endplate of L3. Mild degenerative changes are again seen. Procedure Note Sampson Greco MD - 10/21/2019 EXAMINATION: Entire Spine Radiographs, AP and lateral views, 8 imagestotal HISTORY: M54.2: Neck pain COMPARISON: 05/14/2019. FINDINGS: There is a right internal jugular approach Port-A-Cath with the tip inthe superior vena cava. A right total reverse shoulder arthroplasty is partially imaged. Postoperative changes of intervertebral disc arthroplasty at C5-6 are again seen. There is straightening of the cervical lordosis but normal alignment of thoracic and lumbar spine. There is approximately 2 mm retrolisthesis of C5 on C6. There is no significant scoliosis or coronal or sagittal imbalance. There is a small divot in the anterior superior endplate ofL3. Mild degenerative changes are again seen. IMPRESSION: C5-6 intervertebral disc arthroplasty. No significant scoliosis or coronal/sagittal imbalance. Report dictated by Yadiel Lechuga DO (residential sales). I, Dr. SAMPSON GRECO MD have personally reviewed and interpreted this examination/study. This report was electronically signed by SAMPSON GRECO MD on10/21/2019 7:27 AM . Radha Larson MD DIAGNOSTIC IMAGING O RDERABLES * CYCLIC CITRUL PEPTIDE ANTIBODY IGG/IGA (CCP) (09/30/2019 1:14 PM MANAGER WOUND CARE) CCP Antibodies IgG/IgA 10 0 - 19 units 10/03/2019 12:06 AM MANAGER WOUND CARE [facility] ([facility]) Comment: ?Negative ? <20 ?Weak positive ?20 - 39 ?Moderate positive ??40 - 59 ?Strong positive ?>59 Blood BLOOD SPECIMEN / Unknown Lab Venipuncture / Unknown 09/30/2019 1:14 PM MANAGER WOUND CARE 09/30/2019 1:34 PM MANAGER WOUND CARE Narrative [facility] ([facility]) - 10/03/2019 12:06 AM MANAGER WOUND CARE Performed at: ??01 - [facility] [address] ??[id number] Tire Wrapper: Wisam Martínez MD, Phone: ??[phone] Andrew Proctor MD LAB - SEROLOGY ORDER SUSANNE Performing Organization Address [facility] [place]/[facility] de Phone Number [facility] ([facility]) [address] [place] [address] * TEIXEIRA (SM) ANTIBODY GIAN (09/30/2019 1:14 PM MANAGER WOUND CARE) Only the most recent of5 resultswithin the time period is included. Teixeira Antibody 4.2 0.0 - 19.9 Units 10/03/2019 2:28 PM MANAGER WOUND CARE [facility] Comment: GIAN Antibody Numeric Result Interpretation: ?<20.0 Units: ??Negative ?20.0 - 39.0 Units: ??Weakly Positive ?>39.0 Units: ??Positive ? Blood BLOOD SPECIMEN / Unknown Lab Venipuncture / Unknown 09/30/2019 1:14 PM MANAGER WOUND CARE 09/30/2019 1:35 PM MANAGER WOUND CARE Andrew Proctor MD LAB - CHEMISTRY [place] Performing Organization Address [facility] [place]/[facility] Co de Phone Number [address] [phone] * (ABNORMAL) CABLE TELEVISION INSTALLER ANTIBODY (09/30/2019 1:14 PM MANAGER WOUND CARE) Only the most recent of4 resultswithin the time period is included. SM/CABLE TELEVISION INSTALLER Antibody 27.1(H) 0.0 - 19.9 Units 10/03/2019 2:28 PM MANAGER WOUND CARE [facility] Comment: GIAN Antibody Numeric Result Interpretation: ?<20.0 Units: ??Negative ?20.0 - 39.0 Units: ??Weakly Positive ?>39.0 Units: ??Positive ? Blood BLOOD SPECIMEN / Unknown Lab Venipuncture / Unknown 09/30/2019 1:14 PM MANAGER WOUND CARE 09/30/2019 1:35 PM MANAGER WOUND CARE Andrew Proctor MD LAB - CHEMISTRY [place] Performing Organization Address City/[facility]/ZIP Co de Phone Number [address] [phone] * RHEUMATOID FACTOR BLOOD QUANTITATIVE (09/30/2019 1:14 PM MANAGER WOUND CARE) Only the most recent of2 resultswithin the time period is included. Pathologist [facility] Rheumatoid Factor <15 <30 IU/mL 09/30/2019 2:24 PM MANAGER WOUND CARE [facility] Blood BLOOD SPECIMEN / Unknown Lab Venipuncture / Unknown 09/30/2019 1:14 PM MANAGER WOUND CARE 09/30/2019 1:35 PM MANAGER WOUND CARE Andrew Proctor MD LAB - CHEMISTRY [place] Performing Organization Address [facility]/ZIP Co de Phone Number [address] [phone] * (ABNORMAL) HISTONE ANTIBODY (09/30/2019 1:14 PM MANAGER WOUND CARE) Only the most recent of3 resultswithin the time period is included. Anti-Histone Antibody 1.9(H) 0.0 - 0.9 Units 10/02/2019 1:08 PM MANAGER WOUND CARE [facility] ([facility]) Comment: ? Negative ?<1.0 ? Weak Positive ?1.0 - 1.5 ? Moderate Positive ??1.6 - 2.5 ? Strong Positive ? >2.5 Blood BLOOD SPECIMEN / Unknown Lab Venipuncture / Unknown 09/30/2019 1:14 PM MANAGER WOUND CARE 09/30/2019 1:35 PM MANAGER WOUND CARE Narrative [facility] ([facility]) - 10/02/2019 1:08 PM MANAGER WOUND CARE Performed at: ??01 - [address] ??[id number] Tire Wrapper: Wisam Martínez MD, Phone: ??[phone] Andrew Proctor MD LAB - CHEMISTRY [place] [facility] ([facility]) [address] [place] [address] * SS-A (SJOGREN'S) ANTIBODY (09/30/2019 1:14 PM MANAGER WOUND CARE) Only the most recent of5 resultswithin the time period is included. SS-A (Ro) Antibody 3.3 0.0 - 19.9 Units 10/03/2019 2:28 PM MANAGER WOUND CARE [facility] Comment: GIAN Antibody Numeric Result Interpretation: ?<20.0 Units: ??Negative ?20.0 - 39.0 Units: ??Weakly Positive ?>39.0 Units: ??Positive ? Blood BLOOD SPECIMEN / Unknown Lab Venipuncture / Unknown 09/30/2019 1:14 PM MANAGER WOUND CARE 09/30/2019 1:34 PM MANAGER WOUND CARE Andrew Proctor MD LAB - [place] [address], [facility] [phone] * XR HAND RIGHT 3VW OR MORE (09/30/2019 12:55 PM MANAGER WOUND CARE) Anatomical Region Laterality Modality Wrist / Hand Radiographic Gely ging 09/30/2019 12:4 7 PM MANAGER WOUND CARE Impressions 09/30/2019 1:00 PM MANAGER WOUND CARE Impression: 1. Right and left hands: Mild osteoarthritis. 2. Right and left feet: No significant arthritis. This report was electronically signed by SAMPSON GRECO MD ??on 09/30/2019 1:00 PM . Narrative 09/30/2019 1:00 PM MANAGER WOUND CARE Exam: 1. XR HAND RIGHT 3VW 2. XR FOOT LEFT 3VW 3. XR HAND LEFT 3VW 4. XR FOOT RIGHT 3VW History: ??M32.9: Systemic lupus erythematosus, unspecified SLE type, unspecified organ involvement status M25.50: Polyarthralgia Comparison: Right and left foot radiographs dated 06/19/2019 from [facility] Findings: Right hand: No fracture or dislocation is present. There is mild osteoarthritis of the third digit distal interphalangeal joint. Otherwise the joint spaces are maintained. No erosions are seen. ??Bone density appears normal. ??The soft tissues are normal. Left hand: No fracture or dislocation is present. There is mild osteoarthritis at the fourth digit distal interphalangeal joint. Otherwise joint spaces are normal. No erosions are seen. ??Bone density appears normal. ??The soft tissues are normal. Right foot: No fracture or dislocation is present. The joint spaces are normal. A large dorsal talar head/neck spur is seen. No erosions are seen. ??Bone density appears normal. ??The soft tissues are normal. Left foot: No fracture or dislocation is present. The joint spaces are normal. No erosions are seen. ??Bone density appears normal. ??The soft tissues are normal. Procedure Note Sampson Greco MD - 09/30/2019 Exam: 1. XR HAND RIGHT 3VW 2. XR FOOT LEFT 3VW 3. XR HAND LEFT 3VW 4. XR FOOT RIGHT 3VW History: M32.9: Systemic lupus erythematosus, unspecified SLE type, unspecified organ involvement status M25.50: Polyarthralgia Comparison: Right and left [facility] Findings: Right hand: No fracture or dislocation is present. There is mild osteoarthritis ofthe third digit distal interphalangeal joint. Otherwise the joint spaces are maintained. No erosions are seen. Bone density appears normal. Thesoft tissues are normal. Left hand: No fracture or dislocation is present. There is mild osteoarthritis atthe fourth digit distal interphalangeal joint. Otherwise joint spaces are normal. No erosions are seen. Bone density appears normal. The soft tissues are normal. Right foot: No fracture or dislocation is present. The joint spaces are normal. A large dorsal talar head/neck spur is seen. No erosions are seen. Bone density appears normal. The soft tissues are normal. Left foot: No fracture or dislocation is present. The joint spaces are normal. No erosions are seen. Bone density appears normal. The soft tissues are normal. Impression: 1. Right and left hands: Mild osteoarthritis. 2. Right and left feet: No significant arthritis. This report was electronically signed by SAMPSON GRECO MD on09/30/2019 1:00 PM . Andrew Proctor MD DIAGNOSTIC IMAGING O RDERABLES * XR HAND LEFT 3VW OR MORE (09/30/2019 12:55 PM MANAGER WOUND CARE) Anatomical Region Laterality Modality Wrist / Hand Radiographic Gely ging 09/30/2019 12:4 7 PM MANAGER WOUND CARE Impressions 09/30/2019 1:00 PM MANAGER WOUND CARE Impression: 1. Right and left hands: Mild osteoarthritis. 2. Right and left feet: No significant arthritis. This report was electronically signed by SAMPSON GRECO MD ??on 09/30/2019 1:00 PM . Narrative 09/30/2019 1:00 PM MANAGER WOUND CARE Exam: 1. XR HAND RIGHT 3VW 2. XR FOOT LEFT 3VW 3. XR HAND LEFT 3VW 4. XR FOOT RIGHT 3VW History: ??M32.9: Systemic lupus erythematosus, unspecified SLE type, unspecified organ involvement status M25.50: Polyarthralgia Comparison: Right and left foot radiographs dated 06/19/2019 from [facility], [facility]. Findings: Right hand: No fracture or dislocation is present. There is mild osteoarthritis of the third digit distal interphalangeal joint. Otherwise the joint spaces are maintained. No erosions are seen. ??Bone density appears normal. ??The soft tissues are normal. Left hand: No fracture or dislocation is present. There is mild osteoarthritis at the fourth digit distal interphalangeal joint. Otherwise joint spaces are normal. No erosions are seen. ??Bone density appears normal. ??The soft tissues are normal. Right foot: No fracture or dislocation is present. The joint spaces are normal. A large dorsal talar head/neck spur is seen. No erosions are seen. ??Bone density appears normal. ??The soft tissues are normal. Left foot: No fracture or dislocation is present. The joint spaces are normal. No erosions are seen. ??Bone density appears normal. ??The soft tissues are normal. Procedure Note Sampson Greco MD - 09/30/2019 Exam: 1. XR HAND RIGHT 3VW 2. XR FOOT LEFT 3VW 3. XR HAND LEFT 3VW 4. XR FOOT RIGHT 3VW History: M32.9: Systemic lupus erythematosus, unspecified SLE type, unspecified organ involvement status M25.50: Polyarthralgia Comparison: [facility] and [facility]. Findings: Right hand: No fracture or dislocation is present. There is mild osteoarthritis ofthe third digit distal interphalangeal joint. Otherwise the joint spaces are maintained. No erosions are seen. Bone density appears normal. Thesoft tissues are normal. Left hand: No fracture or dislocation is present. There is mild osteoarthritis atthe fourth digit distal interphalangeal joint. Otherwise joint spaces are normal. No erosions are seen. Bone density appears normal. The soft tissues are normal. Right foot: No fracture or dislocation is present. The joint spaces are normal. A large dorsal talar head/neck spur is seen. No erosions are seen. Bone density appears normal. The soft tissues are normal. Left foot: No fracture or dislocation is present. The joint spaces are normal. No erosions are seen. Bone density appears normal. The soft tissues are normal. Impression: 1. Right and left hands: Mild osteoarthritis. 2. Right and left feet: No significant arthritis. This report was electronically signed by SAMPSON GRECO MD on09/30/2019 1:00 PM . Andrew Proctor MD DIAGNOSTIC IMAGING O RDERABLES * URINE MICROSCOPIC ONLY REFLEX TO CULTURE (03/20/2019 3:45 PM CDT) Reflex Status Culture to follow 03/20/2019 4:33 PM CDT [facility] RBC UA 0-2 None Seen, 0-2, 3-5 # /hpf 03/20/2019 4:33 PM CDT [facility] WBC UA 0-5 None Seen, 0-5 # /hpf 03/20/2019 4:33 PM CDT [facility] Bacteria UA None Seen None Seen 03/20/2019 4:33 PM CDT [facility] Squamous Epithelial Cells 0-2 None Seen, 0-2, 3-5 /hpf 03/20/2019 4:33 PM CDT [facility] Mucus UA 1+ /LPF 03/20/2019 4:33 PM CDT [facility] Hyaline Casts 0-2 None Seen, 0-2 # /lpf 03/20/2019 4:33 PM CDT [facility] Urine URINE SPECIMEN OBTAINED BY CLEAN CATCH PROCEDURE / Unknown Collection / Unknown 03/20/2019 3:45 PM CDT 03/20/2019 4:11 PM CDT Narrative [facility] - 03/20/2019 4:33 PM CDT Yadiel Moore MD LAB - URINALYSIS ORD ERABLES [facility] [address] [place] [address] * CULTURE MSSA/MRSA (2019 2:23 PM CDT) Culture Negative for Staphylococcus aureus (MRSA/MSSA) KAM 03/12/2019 7:59 AM CDT [facility] Microbiology SPECIMEN FROM NASAL FOSSAE / Unknown Collection / Unknown 2019 2:23 PM CDT 2019 2:44 PM CDT Pablo Liriano MD LAB - MICROBIOLOGY O RDERABLES Performing Organization Address City/[facility]/ZIP Co de Phone Number [facility] [address] [place] [id number] [phone] * HEMOGLOBIN A1C (2019 2:23 PM CDT) Hemoglobin A1c 5.8 4.0 - 6.1 % 2019 3:32 PM CDT [facility] Estimated Average Glucose 120 mg/dL 2019 3:32 PM CDT [facility] Blood BLOOD SPECIMEN / Unknown Venipuncture / Unknown 2019 2:23 PM CDT 2019 2:44 PM CDT Narrative [facility] - 2019 3:32 PM CDT Attention clinician: ??Reference Range has changed. Pablo Liriano MD LAB - CHEMISTRY [facility] [facility] Performing Organization Address City/[facility] Co de Phone Number [facility] [address] [place] [address] * NICOTINE + METABOLITES URINE (2019 2:23 PM CDT) Nicotine Urine None Detected ng/mL 03/14/2019 5:07 PM CDT [facility] ([facility]) Comment: This test was developed and its performance characteristics determined by [facility]. It has not been cleared or approved by the Food and Drug Administration. Nicotine levels greater than 100.0 are consistent with the use of tobacco or tobacco cessation products. Cotinine Urine None Detected ng/mL 03/14/2019 5:07 PM CDT [facility] ([facility]) Comment: This test was developed and its performance characteristics determined by [facility]. It has not been cleared or approved by the Food and Drug Administration. Cotinine levels greater than 200.0 are consistent with the use of tobacco or tobacco cessation products. Urine URINE / Unknown Collection / Unknown 2019 2:23 PM CDT 2019 2:44 PM CDT Narrative [facility] ([facility]) - 03/14/2019 5:07 PM CDT Performed at: ??01 - [facility] [address] ??[id number] [employer]: Wisam Martínez MD, Phone: ??[phone] Pablo Liriano MD LAB - URINE CHEMISTR Y ORDERABLES Performing Organization Address City/[facility]/ZIP Co de Phone Number [facility] ([facility]) [address] [place] [address] * PT-INR (2019 2:23 PM CDT) Only the most recent of3 resultswithin the time period is included. PT 10.4 9.5 - 11.6 sec 2019 2:55 PM CDT [facility] INR 1.0 0.9 - 1.1 2019 2:55 PM CDT [facility] Blood BLOOD SPECIMEN / Unknown Venipuncture / Unknown 2019 2:23 PM CDT 2019 2:44 PM CDT Narrative [facility] - 2019 2:55 PM CDT Conventional Warfarin Anticoagulant Therapy: INR Reference Range: ??2.0-3.0 Intensive Warfarin Anticoagulant Therapy: INR Reference Range: ? 2.5-3.5 Pablo Liriano MD LAB - COAGULATION OR DERABLES [facility] [address] [place] [address] * TYPE + SCREEN PANEL (01/03/2019 12:02 PM CDT) Only the most recent of5 resultswithin the time period is included. ABO B 01/03/2019 12:41 PM CDT [facility] Rh Type Positive 01/03/2019 12:41 PM CDT [facility] Comment:History checked. Antibody Screen Negative 01/03/2019 12:41 PM CDT [facility] Blood Bank BLOOD SPECIMEN / Unknown Venipuncture / Unknown 01/03/2019 12:02 PM CDT 01/03/2019 12:06 PM CDT Nash Gutierrez MD LAB - BLOOD BANK ORD ERABLES [facility] [address] [place], [place] [address] [phone] * MRI SHOULDER LEFT WO CONTRAST (12/31/2018 3:36 PM CDT) Anatomical Region Laterality Modality Upper Extremity Magnetic Resonan ce 12/31/2018 3:39 PM CDT Impressions 12/31/2018 4:03 PM CDT IMPRESSION: 1. Full-thickness rotator cuff tear involving the posterior aspect of the supraspinatus tendon and anterior aspect of the infraspinatus tendon measuring 10 x 8 mm. There is a larger area of partial thickness tear adjacent to this. Mild atrophy of the supraspinatus and infraspinatus muscles. 2. Mild subscapularis tendinosis without tear. 3. Mild tendinosis and tenosynovitis of the long head of the biceps tendon. 4. Severe glenohumeral arthritis with degeneration and degenerative tear of the glenoid labrum. Mild inferior subluxation of the humeral head relative to the glenoid. 5. Os acromiale. 6. Mild acromioclavicular osteoarthritis. Dictated by Nicole Thomas MD (residential sales). I, Dr. SAMPSON GRECO MD have personally reviewed and interpreted this examination/study. This report was electronically signed by SAMPSON GRECO MD ??on 12/31/2018 4:03 PM . Narrative 12/31/2018 4:03 PM CDT EXAMINATION: Magnetic resonance imaging (MRI) of the left shoulder without contrast HISTORY: Chronic left shoulder pain TECHNIQUE: MRI of the left shoulder was performed using multiple pulse sequences in multiple planes without contrast. COMPARISON: Left shoulder radiograph dated on 10/22/2018. FINDINGS: There is mild osteoarthritis of the acromioclavicular joint with subchondral cysts and osteophytes. An os acromiale is noted. The humeral head is mildly subluxed inferiorly relative to the glenoid. There is severe osteoarthritis of the glenohumeral joint with relatively large areas of full-thickness cartilage loss at the anterior-inferior aspect of the joint with [id number] contact, subchondral cysts, bone marrow edema, and osteophytosis. There is degeneration and degenerative tear of the glenoid labrum. A rotator cuff tear is present involving the posterior aspect of the supraspinatus tendon and anterior-superior aspect of the infraspinatus tendon. Both tendons are severely thinned in this region and there is a region of full-thickness tear measuring about 8 mm anteroposterior and 10 mm medial-lateral (series 9 image 10-12, series 7 image 10). There is tendinosis of the supraspinatus and infraspinatus tendons. There is mild atrophy of the supraspinatus muscle and superior aspect of the infraspinatus muscle. There is no disturbance subscapularis tendon. The tendon is thickened consistent with mild tendinosis. The teres minor tendon is normal. The long head of the biceps anchor is intact. There is mild tendinosis of the intra-articular portion of the tendon without tear. There is mildly increased signal within the tendon sheath of long head of the biceps suggesting tenosynovitis. There is minimal fluid in the subacromial-subdeltoid bursa. Marrow signal intensity is otherwise normal. Procedure Note Sampson Greco MD - 12/31/2018 EXAMINATION: Magnetic resonance imaging (MRI) of the left shoulderwithout contrast HISTORY: Chronic left shoulder pain TECHNIQUE: MRI of the left shoulder was performed using multiple pulse sequences in multiple planes without contrast. COMPARISON: Left shoulder radiograph dated on 10/22/2018. FINDINGS: There is mild osteoarthritis of the acromioclavicular joint with subchondral cysts and osteophytes. An os acromiale is noted. The humeral head is mildly subluxed inferiorly relative to the glenoid. There is severe osteoarthritis of the glenohumeral joint with relatively large areas of full-thickness cartilage loss at the anterior-inferior aspect of the joint with gymj-yy-[id number] contact, subchondral cysts, bone marrow edema, and osteophytosis. There is degeneration and degenerative tear of the glenoid labrum. A rotator cuff tear is present involving the posterior aspect of the supraspinatus tendon and anterior-superior aspect of the infraspinatus tendon. Both tendons are severely thinned in this region and there is a region of full-thickness tear measuring about 8 mm anteroposterior and10 mm medial-lateral (series 9 image 10-12, series 7 image 10). There is tendinosis of the supraspinatus and infraspinatus tendons. There is mild atrophy of the supraspinatus muscle and superior aspect of the infraspinatus muscle. There is no disturbance subscapularis tendon. The tendon is thickened consistent with mild tendinosis. The teres minor tendon is normal. The long head of the biceps anchor is intact. There is mild tendinosisof the intra-articular portion of the tendon without tear. There is mildly increased signal within the tendon sheath of long head of the biceps suggesting tenosynovitis. There is minimal fluid in the subacromial-subdeltoid bursa. Marrow signal intensity is otherwise normal. IMPRESSION: 1. Full-thickness rotator cuff tear involving the posterior aspect ofthe supraspinatus tendon and anterior aspect of the infraspinatus tendon measuring 10 x 8 mm. There is a larger area of partial thickness tear adjacent to this. Mild atrophy of the supraspinatus and infraspinatus muscles. 2. Mild subscapularis tendinosis without tear. 3. Mild tendinosis and tenosynovitis of the long head of the bicepstendon. 4. Severe glenohumeral arthritis with degeneration and degenerative tear of the glenoid labrum. Mild inferior subluxation of the humeral head relative to the glenoid. 5. Os acromiale. 6. Mild acromioclavicular osteoarthritis. Dictated by Nicole Thomas MD (residential sales). I, Dr. SAMPSON GRECO MD have personally reviewed and interpreted this examination/study. This report was electronically signed by SAMPSON GRECO MD on12/31/2018 4:03 PM . Pablo Liriano MD MR ORDERABLES * US JOINT INJECTION OR ASPIRATE (11/01/2018 9:00 AM MANAGER WOUND CARE) Narrative [facility] - 11/01/2018 12:49 PM MANAGER WOUND CARE This procedure was performed by an Orthopedic physician in a clinic setting. ??Please see the procedure note. Terrence Donahue DO US ORDERABLES [facility] * XR ABDOMEN KUB PORTABLE (05/13/2018 4:33 PM CDT) Anatomical Region Laterality Modality Radiographic Gely ging 05/13/2018 4:53 PM CDT Impressions 05/14/2018 12:05 PM CDT IMPRESSION: A gastric tube coils in the gastric cardia and terminates in the proximal stomach. Report dictated by Josue Vyas MD (residential sales). I, Dr. BEATA GRULLON have personally reviewed and interpreted this examination/study. This report was electronically signed by BEATA GRULLON ??on 05/14/2018 12:05 PM . Narrative 05/14/2018 12:05 PM CDT EXAMINATION: XR ABDOMEN KUB PORTABLE HISTORY: Enteric tube placement COMPARISON: No prior study is available for comparison. Procedure Note Beata Grullon DO - 05/14/2018 EXAMINATION: XR ABDOMEN KUB PORTABLE HISTORY: Enteric tube placement COMPARISON: No prior study is available for comparison. IMPRESSION: A gastric tube coils in the gastric cardia and terminates in theproximal stomach. Report dictated by Josue Vyas MD (residential sales). IDr. BEATA have personally reviewed and interpreted this examination/study. This report was electronically signed by BEATA GRULLON on 05/14/2018 12:05 PM . Neto Ortega MD DIAGNOSTIC IMAGING O RDERABLES * PHOSPHORUS BLOOD (05/13/2018 2:45 AM CDT) Only the most recent of11 resultswithin the time period is included. Phosphorus 3.4 2.3 - 4.7 mg/dL 05/13/2018 3:06 AM CDT [facility] Blood BLOOD SPECIMEN / Unknown Venipuncture / Unknown 05/13/2018 2:45 AM CDT 05/13/2018 2:49 AM CDT Zechariah Howell MD LAB - CHEMISTRY [facility] [facility] Performing Organization Address City/[facility]/ZIP Co de Phone Number [facility] [address] [place] [address], [facility] [phone] * LACTIC ACID BLOOD (05/13/2018 2:45 AM CDT) Only the most recent of3 resultswithin the time period is included. Lactic Acid-Stat 1.5 0.5 - 2.2 mmol/L 05/13/2018 3:00 AM CDT [facility] Blood BLOOD SPECIMEN / Unknown Venipuncture / Unknown 05/13/2018 2:45 AM CDT 05/13/2018 2:49 AM CDT Zechariah Howell MD LAB - CHEMISTRY [place] Performing Organization Address [facility] [place]/[facility]/[place] [address], [facility] [phone] * MRI LUMBAR SPINE WO CONTRAST (12/11/2017 4:00 PM CDT) Anatomical Region Laterality Modality Spine Magnetic Resonan ce Angiography 12/11/2017 7:27 PM CDT Impressions 12/11/2017 7:37 PM CDT 1. ??Since the recent prior exam L3 superior endplate marrow edema has developed. ??Considerations include acute Schmorl's node, avascular necrosis or bacterial seeding. ??There is no fluid in the adjacent disc and no epidural fluid collection. Narrative 12/11/2017 7:37 PM CDT MRI lumbar spine, noncontrast DATE: 12/11/2017. INDICATION: Back pain, recent bacteremia, history of breast cancer TECHNIQUE: Multiplanar, multisequence nonenhanced lumbar spine MRI. Venous access could not be obtained for contrast comparisons: Lumbar MRI from 10/24/2017. Findings: Since the recent prior study localized marrow edema has developed in the L3 superior endplate asymmetrically towards the left. ??Previously there was only a very small focus of bright T2 signal in this region. For example see image 6 of series 601 or image 4 of series 601. ??There is no intervertebral disc fluid or inflammation. ??No evidence of fracture or epidural fluid collection. The distal cord and cauda equina have normal size and signal intensity. There is no central or neural foraminal stenosis. Procedure Note Jose Antonio Orozco MD - 12/11/2017 MRI lumbar spine, noncontrast DATE: 12/11/2017. INDICATION: Back pain, recent bacteremia, history of breast cancer TECHNIQUE: Multiplanar, multisequence nonenhanced lumbar spine MRI. Venous access could not be obtained for contrast comparisons: Lumbar MRI from 10/24/2017. Findings: Since the recent prior study localized marrow edema has developed in the L3 superior endplate asymmetrically towards the left. Previously there was only a very small focus of bright T2 signal in this region. For example see image 6 of series 601 or image 4 of series 601. There is no intervertebral disc fluid or inflammation. No evidence of fracture or epidural fluid collection. The distal cord and cauda equina have normal size and signal intensity. There is no central or neural foraminal stenosis. IMPRESSION 1. Since the recent prior exam L3 superior endplate marrow edema has developed. Considerations include acute Schmorl's node, avascular necrosis or bacterial seeding. There is no fluid in the adjacent disc and no epidural fluid collection. Tessy Torres MD MR ORDERABLES * MRI THORACIC SPINE WO CONTRAST (12/11/2017 3:59 PM CDT) Anatomical Region Laterality Modality Chest Magnetic Resonan ce Angiography 12/11/2017 7:37 PM CDT Impressions 12/11/2017 7:40 PM CDT 1. ??Unremarkable thoracic spine Narrative 12/11/2017 7:40 PM CDT MRI thoracic spine, noncontrast DATE: 12/11/2017. INDICATION: Back pain, recent history of bacteremia. ??History of breast cancer. TECHNIQUE: Multiplanar, multisequence nonenhanced thoracic spine MRI. IV access could not be obtained for contrast. Comparisons: Recent and prior lumbar MRIs. Findings: The thoracic cord has normal size and signal intensity. ??There is no epidural fluid collection, mass,, stenosis or cord displacement. ??In the lower thoracic spine the ligamentum flavum is mildly hypertrophied at several levels. There is no fracture or subluxation. ??No marrow edema. Procedure Note Jose Antonio Orozco MD - 12/11/2017 MRI thoracic spine, noncontrast DATE: 12/11/2017. INDICATION: Back pain, recent history of bacteremia. History of breast cancer. TECHNIQUE: Multiplanar, multisequence nonenhanced thoracic spine MRI. IV access could not be obtained for contrast. Comparisons: Recent and prior lumbar MRIs. Findings: The thoracic cord has normal size and signal intensity. There is no epidural fluid collection, mass,, stenosis or cord displacement. In the lower thoracic spine the ligamentum flavum is mildly hypertrophied at several levels. There is no fracture or subluxation. No marrow edema. IMPRESSION 1. Unremarkable thoracic spine Tessy Torres MD MR ORDERABLES * CREATININE BLOOD - POINT OF CARE (IP) (12/11/2017 3:02 PM CDT) Creatinine POCT 0.72 0.7 - 1.2 mg/dL [facility] QC Verified Yes Yes HC POC T TESTING Blood BLOOD SPECIMEN / Unknown 12/11/2017 3:02 PM CDT Tessy Torres MD LAB - POINT OF CARE ORDERABLES Performing Organization Address City/[facility]/ZIP Co de Phone Number [facility] [address] [place] [address] * LIPASE BLOOD (11/08/2017 9:24 PM MANAGER WOUND CARE) Only the most recent of3 resultswithin the time period is included. Lipase 191 73 - 393 U/L 11/08/2017 11:02 PM MANAGER WOUND CARE [facility] Blood BLOOD SPECIMEN / Unknown Venipuncture / Unknown 11/08/2017 9:24 PM MANAGER WOUND CARE 11/08/2017 9:31 PM MANAGER WOUND CARE Tanya Fan MD LAB - CHEMISTRY [place] [facility] Performing Organization Address City/[facility]/ZIP Co de Phone Number [facility] [address] [place] [address] * CK BLOOD (10/19/2017 4:11 AM MANAGER WOUND CARE) Only the most recent of2 resultswithin the time period is included. CK 66 35 - 232 U/L 10/19/2017 5:37 AM MANAGER WOUND CARE [facility] Blood BLOOD SPECIMEN / Unknown Venipuncture / Unknown 10/19/2017 4:11 AM MANAGER WOUND CARE 10/19/2017 4:38 AM MANAGER WOUND CARE Lynn Martínez MD LAB - CHEMISTRY OR DERABLES [facility] [address] [place] [address] * MRI SHOULDER LEFT WWO CONT (10/17/2017 4:30 PM MANAGER WOUND CARE) Anatomical Region Laterality Modality Upper Extremity Magnetic Resonan ce 10/18/2017 1:56 PM MANAGER WOUND CARE Impressions 10/18/2017 2:06 PM MANAGER WOUND CARE 1. ??Rim-enhancing fluid in the glenohumeral joint space and the subacromial and subdeltoid bursae. ??Findings are consistent with septic joint and septic bursa. 2. ??Multifocal myositis 3. ??Marrow signal increase in the AC joint is most likely degenerative or reactive. ??No convincing evidence for osteomyelitis. Narrative 10/18/2017 2:06 PM MANAGER WOUND CARE MRI left shoulder, with and without contrast DATE: 10/17/2017. INDICATION: Streptococcal arthritis. TECHNIQUE: Multiplanar, multisequence pre and post gallium enhanced left shoulder MRI utilizing 20 cc of intravenous Dotarem (gadoterate meglumine). COMPARISON: Body CT 10/09/2017. FINDINGS: The subacromial and subdeltoid bursa as are distended with fluid. There is extensive synovial and soft tissue enhancement around the bursae as well as around the joint space. ??The joint is also moderately filled with fluid and with diffuse synovial enhancement. ??A tract of inflammation and small fluid extends anteriorly from the joint towards the skin surface although there is no significant collection of subcutaneous fluid. ??This fluid might be draining to the skin surface. There is no additional small tract of inflammation in the subcutaneous tissues of the posterior shoulder. ??Subcutaneous edema is noted along the posterior surface of the deltoid adjacent to the overlying fatty tissues. There is myositis in the deep portions of the deltoid muscle greater posteriorly. ??There is lesser myositis within the supraspinatus, infraspinatus and subscapularis muscles. Bone marrow signal remains normal in the glenoid, acromion, visualized portions of the clavicle and scapula. ??Slightly elevated signal on either side of the acromioclavicular joint is a typical finding for degenerative change. Scattered areas of elevated T2 signal are noted in the supraspinatus and infraspinatus tendons representing either intrasubstance tearing or degeneration. ??No fiber separation is seen. The long head of the biceps tendon remains intact. Procedure Note Jose Antonio Orozco MD - 10/18/2017 MRI left shoulder, with and without contrast DATE: 10/17/2017. INDICATION: Streptococcal arthritis. TECHNIQUE: Multiplanar, multisequence pre and post gallium enhanced left shoulder MRI utilizing 20 cc of intravenous Dotarem (gadoterate me[place]um[place]). COMPARISON: Body CT 10/09/2017. FINDINGS: The subacromial and subdeltoid bursa as are distended with fluid. There is extensive synovial and soft tissue enhancement around the bursae as well as around the joint space. The joint is also moderately filled with fluid and with diffuse synovial enhancement. A tract of inflammation and small fluid extends anteriorly from the joint towards the skin surface although there is no significant collection of subcutaneous fluid. This fluid might be draining to the skin surface. There is no additional small tract of inflammation in the subcutaneous tissues of the posterior shoulder. Subcutaneous edema is noted along the posterior surface of the deltoid adjacent to the overlying fatty tissues. There is myositis in the deep portions of the deltoid muscle greater posteriorly. There is lesser myositis within the supraspinatus, infraspinatus and subscapularis muscles. Bone marrow signal remains normal in the glenoid, acromion, visualized portions of the clavicle and scapula. Slightly elevated signal on either side of the acromioclavicular joint is a typical finding for degenerative change. Scattered areas of elevated T2 signal are noted in the supraspinatus and infraspinatus tendons representing either intrasubstance tearing or degeneration. No fiber separation is seen. The long head of the biceps tendon remains intact. IMPRESSION 1. Rim-enhancing fluid in the glenohumeral joint space and the subacromial and subdeltoid bursae. Findings are consistent with septic joint and septic bursa. 2. Multifocal myositis 3. Marrow signal increase in the AC joint is most likely degenerative or reactive. No convincing evidence for osteomyelitis. Lynn Martínez MD MR ORDERABLES * TRANSFUSE RED BLOOD CELL UNIT(S) (10/17/2017 2:35 PM MANAGER WOUND CARE) Lynn Martínez MD NURSING - BLOOD OH OD TRANSFUSION * PREPARE (CROSSMATCH) RBC UNIT(S), 1 Units (10/17/2017 9:15 AM MANAGER WOUND CARE) Only the most recent of5 resultswithin the time period is included. Product Code [id number] [facility] Unit Donor # [id number] S [facility] ABO Donor Type B [facility] Rh Type Unit POS [facility] Unit Status Ret'd HC BLO OD BANK LAB ABO Rh Type Unit BPOS [facility] Donor Unit Expiration Date [id number] [facility] Blood Type Barcode 7300 [facility] Blood Bank BLOOD SPECIMEN / Unknown 10/17/2017 9:15 AM MANAGER WOUND CARE Lynn Martínez MD LAB - BLOOD BANK O RDERABLES [facility] [address] [phone] * (ABNORMAL) COAGULATION PANEL W D-DIMER (10/17/2017 8:18 AM MANAGER WOUND CARE) PT 11.6 9.5 - 11.6 sec 10/17/2017 9:29 AM MANAGER WOUND CARE [facility] INR 1.1 0.9 - 1.1 10/17/2017 9:29 AM MANAGER WOUND CARE [facility] PTT 24.1 21.0 - 32.0 sec 10/17/2017 9:29 AM MANAGER WOUND CARE [facility] Fibrinogen >735(H) 200 - 400 mg/dL 10/17/2017 9:29 AM [facility] D-Dimer 11.19(H) 0.17 - 0.5 mg/L FEU 10/17/2017 9:29 AM [facility] Platelet Count 430(H) 153 - 416 x10E9/L 10/17/2017 9:29 AM [facility] Blood BLOOD SPECIMEN / Unknown Venipuncture / Unknown 10/17/2017 8:18 AM MANAGER WOUND CARE 10/17/2017 8:33 AM [facility] Narrative [facility] - 10/17/2017 9:29 AM [facility] Conventional Warfarin Anticoagulant Therapy INR Reference Range: ??2.0-3.0 Intensive Warfarin Anticoagulant Therapy INR Reference Range: ? 2.5-3.5 Heparin Therapeutic Range for PTT: 47.7 - 68.6 seconds. The [employer] D-Dimer assay is intended for use as an aid in diagnosis of venous thromboembolism [(VTE): deep vein thrombosis (DVT), pulmonary embolism (PE), and disseminated intravascular coagulation (DIC)], and has received U.S. Food and Drug Administration (FDA) approval to exclude VTE in patients with low or moderate pretest probability of PE or DVT (per Wells' rules). At a clinical cut-off value 0.50 mg/L FEU, the Negative Predictive Value of this assay is 99.8% for excluding PE and 100% for excluding DVT. A very low percentage of patients with VTE may yield D-Dimer results below the cut-off value. An elevated D-Dimer result has low specificity (40.4% for PE, 35.5% for DVT) and is a poor predictor of VTE. An elevated D-Dimer result may indicate DIC in the appropriate clinical setting. Results of this test should always be interpreted in conjunction with the patient's medical history, clinical presentation, and other findings. Lynn Martínez MD LAB - COAGULATION ORDERABLES [facility] [address] [place] [address] * HIV-1 HIV-2 ANTIBODY + HIV P24 AG PANEL (10/12/2017 4:43 AM [facility]) HIV1/2 Ab + P24 Ag Non Reactive Non Reactive 10/12/2017 11:04 AM MANAGER WOUND CARE [facility] Blood BLOOD SPECIMEN / Unknown Venipuncture / Unknown 10/12/2017 4:43 AM MANAGER WOUND CARE 10/12/2017 4:57 AM MANAGER WOUND CARE Narrative [facility] - 10/12/2017 11:04 AM MANAGER WOUND CARE No Laboratory evidence of HIV infection. Singh Moyer MD LAB - CHEMISTRY ORDERABLES [facility] [address] [place] [address] * PT PTT PANEL (10/12/2017 4:43 AM MANAGER WOUND CARE) Only the most recent of2 resultswithin the time period is included. Pathologist [facility] PT 11.6 9.5 - 11.6 sec 10/12/2017 5:19 AM [facility] INR 1.1 0.9 - 1.1 10/12/2017 5:19 AM [facility] PTT 25.2 21.0 - 32.0 sec 10/12/2017 5:19 AM [facility] Blood BLOOD SPECIMEN / Unknown Venipuncture / Unknown 10/12/2017 4:43 AM MANAGER WOUND CARE 10/12/2017 4:57 AM MANAGER WOUND CARE Narrative [facility] - 10/12/2017 5:19 AM MANAGER WOUND CARE Conventional Warfarin Anticoagulant Therapy: INR Reference Range: ??2.0-3.0 Intensive Warfarin Anticoagulant Therapy: INR Reference Range: ? 2.5-3.5 Heparin Therapeutic Range for PTT: 47.7 - 68.6 seconds. Anibal Muro MD LAB - COAGULATION ORDERABLES [facility] [address] [place] [address] * US EXTREMITY LEFT LTD NONVASC (10/10/2017 12:28 PM MANAGER WOUND CARE) Anatomical Region Laterality Modality Lower Extremity, Upper Extremity Ultrasound 10/10/2017 1:32 PM MANAGER WOUND CARE Impressions 10/10/2017 1:33 PM MANAGER WOUND CARE No definite large shoulder joint effusion or bursal effusion. Further evaluation with CT or MRI could be performed as clinically indicated. Narrative 10/10/2017 1:33 PM MANAGER WOUND CARE Examination: Limited extremity sonogram History: History of septic arthritis and shoulder pain. Evaluation for a large shoulder joint effusion was requested. Findings: Limited real-time grayscale sonography of the left shoulder was performed. Several images were acquired. No large shoulder joint effusion was seen from an anterior approach. No significant fluid was seen extending from between the proximal humerus and the imaged portion of the anterior glenoid or coracoid process. No definite large subacromial subdeltoid bursal fluid collection was seen. Procedure Note Calvin Lama MD - 10/10/2017 Examination: Limited extremity sonogram History: History of septic arthritis and shoulder pain. Evaluation for a large shoulder joint effusion was requested. Findings: Limited real-time grayscale sonography of the left shoulder was performed. Several images were acquired. No large shoulder joint effusion was seen from an anterior approach. No significant fluid was seen extending from between the proximal humerus and the imaged portion of the anterior glenoid or coracoid process. No definite large subacromial subdeltoid bursal fluid collection was seen. IMPRESSION No definite large shoulder joint effusion or bursal effusion. Further evaluation with CT or MRI could be performed as clinically indicated. Vivien Mckeon FASHION ILLUSTRATOR-GRAPHIC PRODUCTION ARTIST US ORDERABL ES * ECHOCARDIOGRAM TRANSESOPHAGEAL (10/10/2017 9:05 AM MANAGER WOUND CARE) 10/10/2017 9:05 AM MANAGER WOUND CARE Narrative [facility] - 10/11/2017 9:56 AM MANAGER WOUND CARE [address] [address] Transesophageal Echocardiogram Doppler and Color Doppler Patient: CHELA MCNULTY MR number: [id number] Height: 65 in Weight: 218 lb BSA: 2.05 m?? Study date: 10-Oct-2017 : 1970 Age: 47 years Gender: Female Race: Black Allergies: ADHESIVE SENSITIVITY Cable Television Installer: ??Eveline Bermudez RDCS Referring Physician: ??Singh Moyer MD Reading Physician: ??Thalia Ahmadi DO Nurse: ??Coleen Goodman, EXTENSION CLERK Performing Physician: ??Thalia Ahmadi, DO Summary: - ??Clinical question: - ??Bacteremia. - ??History: - ??Septic lupus, BIANCA, hypothyroid, hypertension, GERD, breast cancer, chemo and radiation therapy, anxiety, - ??Left ventricle: - ??Systolic function was normal. Ejection fraction was estimated to be 60 %. - ??There were no regional wall motion abnormalities. - ??Wall thickness was normal. - ??Aortic valve: - ??There was no evidence for vegetation. - ??Mitral valve: - ??There was mild regurgitation. - ??There was no evidence for vegetation. - ??Atrial septum: - ??There was a patent foramen ovale. - ??Contrast injection was performed. There was a mettq-mp-stgv shunt, in the baseline state. - ??Tricuspid valve: - ??There was mild regurgitation. Indications: Bacteremia. History: Prior history: Septic lupus, BIANCA, hypothyroid, hypertension, GERD, breast cancer, chemo and radiation therapy, anxiety, Procedure: The procedure was performed in the echo lab. This was a routine study. Consent: Informed consent was obtained and signed. Oral Anesthesia: Cetocaine Almo Oral viscous lidocaine Sedation: Managed by anesthesia, propofol used. Procedure: The transesophageal probe was inserted into the esophagus, then into the fundus of the stomach without complication. The heart was examined in multiplane views. Color flow and pulse wave doppler was performed. The thoracic aorta was examined from the fundus of the stomach to the aortic arch. The transesophageal approach was used. The study included complete spectral Doppler and color Doppler. Systolic blood pressure was 126 mmHg. Diastolic blood pressure was 76 mmHg. Intravenous contrast (agitated saline) was administered to evaluate shunting. Image quality was good. There were no complications during the procedure. Left ventricle: Size was normal. Systolic function was normal. Ejection fraction was estimated to be 60 %. There were no regional wall motion abnormalities. Wall thickness was normal. Aortic valve: The valve was trileaflet. Leaflets exhibited normal thickness and normal cuspal separation. There was no evidence for vegetation. Doppler: There was no regurgitation. Aorta: The root exhibited normal size. There was no atheroma. There was no evidence for dissection. There was no evidence for aneurysm. Mitral valve: Valve structure was normal. There was normal leaflet separation. There was no evidence for vegetation. Doppler: The transmitral velocity was within the normal range. There was no evidence for stenosis. There was mild regurgitation. Left atrium: Size was normal. No thrombus was identified. Appendage: The size was normal. The function was normal (normal emptying velocity). No thrombus was identified. Atrial septum: There was a patent foramen ovale. Contrast injection was performed. There was a ztrlh-ne-zkny shunt, in the baseline state. Right ventricle: The size was normal. Systolic function was normal. Wall thickness was normal. Pulmonic valve: Leaflets exhibited normal thickness, no calcification, and normal cuspal separation. There was no evidence for vegetation. Doppler: There was no regurgitation. Tricuspid valve: The valve structure was normal. There was normal leaflet separation. There was no evidence for vegetation. Doppler: There was mild regurgitation. Right atrium: Size was normal. No thrombus was identified. Pericardium: The pericardium was normal in appearance. Prepared and signed by Thalia Ahmadi DO Signed 11-Oct-2017 09:56:10 Procedure Note Thalia Ahmadi DO - 10/11/2017 [place] [address] Transesophageal Echocardiogram Doppler and Color Doppler Patient: CHELA MCNULTY MR number: [id number] Height: 65 in Weight: 218 lb BSA: 2.05 m?? Study date: 10-Oct-2017 : 1970 Age: 47 years Gender: Female Race: Black Allergies: ADHESIVE SENSITIVITY Cable Television Installer: Eveline Bermudez RDCS Referring Physician: Singh Moyer MD Reading Physician: Thalia Ahmadi DO Nurse: Coleen Goodman RN BSN Performing Physician: Thalia Ahmadi DO Summary: - Clinical question: - Bacteremia. - History: - Septic lupus, BIANCA, hypothyroid, hypertension, GERD, breast cancer, chemo and radiation therapy, anxiety, - Left ventricle: - Systolic function was normal. Ejection fraction was estimated to be 60 %. - There were no regional wall motion abnormalities. - Wall thickness was normal. - Aortic valve: - There was no evidence for vegetation. - Mitral valve: - There was mild regurgitation. - There was no evidence for vegetation. - Atrial septum: - There was a patent foramen ovale. - Contrast injection was performed. There was a ogell-cs-jhdq shunt, in the baseline state. - Tricuspid valve: - There was mild regurgitation. Indications: Bacteremia. History: Prior history: Septic lupus, BIANCA, hypothyroid, hypertension, GERD, breast cancer, chemo and radiation therapy, anxiety, Procedure: The procedure was performed in the echo lab. This was a routine study. Consent: Informed consent was obtained and signed. Oral Anesthesia: Cetocaine Almo Oral viscous lidocaine Sedation: Managed by anesthesia, propofol used. Procedure: The transesophageal probe was inserted into the esophagus, then into the fundus of the stomach without complication. The heart was examined in multiplane views. Color flow and pulse wave doppler was performed. The thoracic aorta was examined from the fundus of the stomach to the aortic arch. The transesophageal approach was used. The study included complete spectral Doppler and color Doppler. Systolic blood pressure was 126 mmHg. Diastolic blood pressure was 76 mmHg. Intravenous contrast (agitated saline) was administered to evaluate shunting. Image quality was good. There were no complications during the procedure. Left ventricle: Size was normal. Systolic function was normal. Ejection fraction was estimated to be 60 %. There were no regional wall motion abnormalities. Wall thickness was normal. Aortic valve: The valve was trileaflet. Leaflets exhibited normal thickness and normal cuspal separation. There was no evidence for vegetation. Doppler: There was no regurgitation. Aorta: The root exhibited normal size. There was no atheroma. There was no evidence for dissection. There was no evidence for aneurysm. Mitral valve: Valve structure was normal. There was normal leaflet separation. There was no evidence for vegetation. Doppler: The transmitral velocity was within the normal range. There was no evidence for stenosis. There was mild regurgitation. Left atrium: Size was normal. No thrombus was identified. Appendage: The size was normal. The function was normal (normal emptying velocity). No thrombus was identified. Atrial septum: There was a patent foramen ovale. Contrast injection was performed. There was a eeqhc-on-hzql shunt, in the baseline state. Right ventricle: The size was normal. Systolic function was normal. Wall thickness was normal. Pulmonic valve: Leaflets exhibited normal thickness, no calcification, and normal cuspal separation. There was no evidence for vegetation. Doppler: There was no regurgitation. Tricuspid valve: The valve structure was normal. There was normal leaflet separation. There was no evidence for vegetation. Doppler: There was mild regurgitation. Right atrium: Size was normal. No thrombus was identified. Pericardium: The pericardium was normal in appearance. Prepared and signed by Thalia Ahmadi DO Signed 11-Oct-2017 09:56:10 Thalia Ahmadi DO ECHO ORDERABLES Performing Organization Address [facility] Co de Phone Number [facility] [address] [place] [address] * TSH REFLEX FREE T4 (10/10/2017 6:44 AM MANAGER WOUND CARE) TSH 0.742 0.358 - 3.740 ulU/mL 10/10/2017 7:37 AM [facility] Blood BLOOD SPECIMEN / Unknown Venipuncture / Unknown 10/10/2017 6:44 AM MANAGER WOUND CARE 10/10/2017 6:56 AM MANAGER WOUND CARE Yojana Browne MD LAB - CHEMISTRY ORDE ISSA Performing Organization Address [facility] Co de Phone Number [facility] [address] [place] [address] * (ABNORMAL) RENAL FUNCTION PANEL (10/10/2017 6:44 AM MANAGER WOUND CARE) Only the most recent of3 resultswithin the time period is included. Glucose 100 74 - 106 mg/dL 10/10/2017 7:50 AM [facility] Sodium 140 136 - 145 mmol/L 10/10/2017 7:50 AM [facility] Potassium 3.6 3.5 - 5.1 mmol/L 10/10/2017 7:50 AM [facility] Chloride 103 98 - 107 mmol/L 10/10/2017 7:50 AM [facility] CO2 32(H) 22 - 31 mmol/L 10/10/2017 7:50 AM [facility] Calcium 8.1(L) 8.5 - 10.1 mg/dL 10/10/2017 7:50 AM [facility] Anion Gap 5(L) 8 - 16 mmol/L 10/10/2017 7:50 AM [facility] BUN 9 7 - 21 mg/dL 10/10/2017 7:50 AM MANAGER WOUND CARE [facility] Creatinine 0.76 0.50 - 1.30 mg/dL 10/10/2017 7:50 AM MANAGER WOUND CARE [facility] Albumin 1.8(L) 3.4 - 5.0 gm/dL 10/10/2017 7:50 AM MANAGER WOUND CARE [facility] Phosphorus 3.8 2.5 - 4.9 mg/dL 10/10/2017 7:50 AM MANAGER WOUND CARE [facility] eGFR by MDRD >60 >60 mL/min/1.7 3m2 10/10/2017 7:50 AM MANAGER WOUND CARE [facility] eGFR by MDRD >60 >60 mL/min/1.7 3m2 10/10/2017 7:50 AM MANAGER WOUND CARE [facility] Blood BLOOD SPECIMEN / Unknown Venipuncture / Unknown 10/10/2017 6:44 AM MANAGER WOUND CARE 10/10/2017 6:56 AM MANAGER WOUND CARE Lynn Martínez MD LAB - CHEMISTRY OR DERABLES Performing Organization Address City/State/[facility] Co de Phone Number [facility] [address] [place] [address] * TRANSFUSE RED BLOOD CELL UNIT(S) (10/09/2017 8:25 PM MANAGER WOUND CARE) Yojana Browne MD NURSING - BLOOD PROD TRANSFUSION * CT CHEST ABDOMEN PELVIS W CONT (10/09/2017 2:16 PM MANAGER WOUND CARE) Anatomical Region Laterality Modality Chest, Abdomen, Pelvis Computed Tomography 10/09/2017 2:21 PM MANAGER WOUND CARE Impressions 10/09/2017 2:35 PM MANAGER WOUND CARE 1. Lung opacities and small effusions most consistent with pulmonary edema. Differential would include generalized pneumonitis. 3. Right chest wall soft tissue defect consistent with recently removed venous access port. CT abdomen and pelvis: The gallbladder is surgically absent. No abnormal dilatation of the biliary tree or common bile duct. The liver size and enhancement is normal. The spleen is unremarkable. The pancreas and adrenal glands are normal. Several wedge shaped perfusion defects are noted in the right mid to lower renal pole. There is no hydronephrosis or intrarenal stone. No perinephric stranding or abscess. Retroperitoneal and mesenteric lymph nodes are small. There is no intraperitoneal abscess or free fluid. The uterus is absent. The urinary bladder is moderately distended but otherwise unremarkable. A cluster of subcutaneous gas droplets are noted in the left anterolateral abdominal wall, most likely at the site of a recent subcutaneous injection. There is fatty stranding in the anterior pelvic wall. The pattern is most congestive of a surgical scar. There is no associated fluid collection. The visualized bony structures including the lumbosacral spine are unremarkable. No bone destruction. No obvious evidence of discitis or epidural fluid collection. IMPRESSION: 1. Right renal perfusion defects most suggestive of pyelonephritis. There is no hydronephrosis or abscess. No renal stones. 2. Other chronic and incidental findings as described. Narrative 10/09/2017 2:[address] chest abdomen and pelvis with contrast DATE: 10/09/2017. INDICATION: Polyarticular septic arthritis including right elbow, left shoulder and bilateral knees.. History of breast cancer. Recently removed Port-A-Cath. TECHNIQUE: Multidetector enhanced CT through the chest, abdomen and pelvis utilizing 100 cc of Omnipaque 350 intravenously and oral contrast. Multiplanar reformations. Comparisons: None. CT CHEST: A soft tissue defect in the right anterior chest wall is consistent with a history of the recently removed Port-A-Cath. There is no surrounding fluid collection indicate abscess. Multifocal hazy opacities are present throughout both lungs with a mild upper lobe predominance and slightly greater on the right. The lung periphery is spared and the overall appearance suggests edema. There are a few additional more focal hazy groundglass opacities in the anterior segment of the upper lobes. Bilateral small pleural effusions layer posteriorly. The heart size is normal. There is no pericardial effusion. No significant mediastinal adenopathy. The largest right axillary node measures 1.4 cm. The bones of thorax are unremarkable. Procedure Note Jose Antonio Orozco MD - 10/09/2017 CT chest abdomen and pelvis with contrast DATE: 10/09/2017. INDICATION: Polyarticular septic arthritis including right elbow, left shoulder and bilateral knees.. History of breast cancer. Recently removed Port-A-Cath. TECHNIQUE: Multidetector enhanced CT through the chest, abdomen and pelvis utilizing 100 cc of Omnipaque 350 intravenously and oral contrast. Multiplanar reformations. Comparisons: None. CT CHEST: A soft tissue defect in the right anterior chest wall is consistent with a history of the recently removed Port-A-Cath. There is no surrounding fluid collection indicate abscess. Multifocal hazy opacities are present throughout both lungs with a mild upper lobe predominance and slightly greater on the right. The lung periphery is spared and the overall appearance suggests edema. There are a few additional more focal hazy groundglass opacities in the anterior segment of the upper lobes. Bilateral small pleural effusions layer posteriorly. The heart size is normal. There is no pericardial effusion. No significant mediastinal adenopathy. The largest right axillary node measures 1.4 cm. The bones of thorax are unremarkable. IMPRESSION 1. Lung opacities and small effusions most consistent with pulmonary edema. Differential would include generalized pneumonitis. 3. Right chest wall soft tissue defect consistent with recently removed venous access port. CT abdomen and pelvis: The gallbladder is surgically absent. No abnormal dilatation of the biliary tree or common bile duct. The liver size and enhancement is normal. The spleen is unremarkable. The pancreas and adrenal glands are normal. Several wedge shaped perfusion defects are noted in the right mid to lower renal pole. There is no hydronephrosis or intrarenal stone. No perinephric stranding or abscess. Retroperitoneal and mesenteric lymph nodes are small. There is no intraperitoneal abscess or free fluid. The uterus is absent. The urinary bladder is moderately distended but otherwise unremarkable. A cluster of subcutaneous gas droplets are noted in the left anterolateral abdominal wall, most likely at the site of a recent subcutaneous injection. There is fatty stranding in the anterior pelvic wall. The pattern is most congestive of a surgical scar. There is no associated fluid collection. The visualized bony structures including the lumbosacral spine are unremarkable. No bone destruction. No obvious evidence of discitis or epidural fluid collection. IMPRESSION: 1. Right renal perfusion defects most suggestive of pyelonephritis. There is no hydronephrosis or abscess. No renal stones. 2. Other chronic and incidental findings as described. Singh Moyer MD CT ORDERABLES * TRANSFUSE RED BLOOD CELL UNIT(S) (10/09/2017 1:07 PM MANAGER WOUND CARE) Hector Schulz MD NURSING - BLOOD PROD TRANSFUSION * BLOOD TYPE VERIFICATION (10/09/2017 5:18 AM MANAGER WOUND CARE) ABO B 10/09/2017 7:02 AM MANAGER WOUND CARE [facility] Rh Type Positive 10/09/2017 7:02 AM [facility] Blood Bank BLOOD SPECIMEN / Unknown Venipuncture / Unknown 10/09/2017 5:18 AM MANAGER WOUND CARE 10/09/2017 6:24 AM MANAGER WOUND CARE Tessy Torres MD LAB - BLOOD BANK ORD IRA Performing Organization Address [facility] Co de Phone Number [facility] [address] [place] [address] * (ABNORMAL) IRON + TRANSFERRIN PANEL (10/09/2017 5:18 AM MANAGER WOUND CARE) Iron 15(L) 50 - 170 ug/dL 10/09/2017 5:54 AM [facility] Transferrin 86.7(L) 250 - 380 mg/dL 10/09/2017 5:54 AM [facility] TIBC Calculated 108(L) 240 - 450 mg/dL 10/09/2017 5:54 AM [facility] Iron Saturation % 14(L) 20 - 50 % 10/09/2017 5:54 AM [facility] Blood BLOOD SPECIMEN / Unknown Venipuncture / Unknown 10/09/2017 5:18 AM MANAGER WOUND CARE 10/09/2017 5:24 AM MANAGER WOUND CARE Yojana Browne MD LAB - CHEMISTRY [place] Performing Organization Address [facility] Co de Phone Number [facility] [address] [place] [address] * (ABNORMAL) FERRITIN (10/09/2017 5:18 AM MANAGER WOUND CARE) Only the most recent of2 resultswithin the time period is included. Ferritin 566(H) 10 - 291 ng/mL 10/09/2017 5:54 AM [facility] Blood BLOOD SPECIMEN / Unknown Venipuncture / Unknown 10/09/2017 5:18 AM MANAGER WOUND CARE 10/09/2017 5:24 AM MANAGER WOUND CARE Yojana Browne MD LAB - CHEMISTRY [place] [facility] [address] [place] [id number] * XR ABD OBSTR SERIES (10/08/2017 5:46 PM MANAGER WOUND CARE) Anatomical Region Laterality Modality Abdomen Radiographic Gely ging 10/08/2017 5:52 PM MANAGER WOUND CARE Narrative 10/08/2017 5:57 PM MANAGER WOUND CARE Obstruction series HISTORY: ileus The bowel gas pattern is grossly normal. There is no evidence of obstruction or free air on limited images. Procedure Note Ankur Chauhan MD - 10/08/2017 Obstruction series HISTORY: ileus The bowel gas pattern is grossly normal. There is no evidence of obstruction or free air on limited images. Yojana Browne MD DIAGNOSTIC IMAGING O RDERABLES * ECHOCARDIOGRAM 2D WITH DOPPLER (10/08/2017 11:46 AM MANAGER WOUND CARE) 10/08/2017 11:4 6 AM MANAGER WOUND CARE Narrative [facility] CARDIOLOGY - 10/08/2017 6:06 PM MANAGER WOUND CARE [facility] [address] [place] [id number] Transthoracic Echocardiogram 2D, M-mode, Doppler, and Color Doppler Patient: CHELA MCNULTY MR number: [id number] Height: 65 in Weight: 198.7 lb BSA: 1.97 m?? Study date: 08-Oct-2017 : 1970 Age: 47 years Gender: Female Race: Black Allergies: ADHESIVE SENSITIVITY [employer] Installer: ??Braxton Sheppard RDCS Referring Physician: ??Singh Moyer MD Reading Physician: ??Zechariah Degroot MD Impressions: The mitral valve appeared thickened in several views. Cannot exclude vegetation. [facility] HAYLEY to further evaluate. Summary: - ??Clinical question: - ??Bacteremia - ??Left ventricle: - ??Size was normal. - ??Systolic function was normal. Ejection fraction was estimated to be 55 %. - ??There were no regional wall motion abnormalities. - ??Wall thickness was normal. - ??Left ventricular diastolic function parameters were normal. - ??Mitral valve: - ??There was mild regurgitation. - ??Left atrium: - ??The atrium was severely dilated. - ??Pulmonary arteries: - ??Systolic pressure was moderately increased. Estimated peak pressure was 60 mmHg. - ??Tricuspid valve: - ??There was moderate regurgitation. - ??Impressions: - ??The mitral valve appeared thickened in several views. Cannot exclude vegetation. [facility] HAYLEY to further evaluate. Recommendations: The clinical service was notified of these findings. Indications: Bacteremia History: Prior history: Vitamin D, Chemotherapy, BIANCA, HTN, Breast Cancer Procedure: The procedure was performed in the echo lab. This was a routine study. The transthoracic approach was used. The study included complete 2D imaging, M-mode, complete spectral Doppler, and color Doppler. Systolic blood pressure was 105 mmHg. Diastolic blood pressure was 64 mmHg. Images were obtained from the parasternal, apical, subcostal, and suprasternal notch acoustic windows. Left ventricle: Size was normal. Systolic function was normal. Ejection fraction was estimated to be 55 %. There were no regional wall motion abnormalities. Wall thickness was normal. Doppler: Left ventricular diastolic function parameters were normal. Aortic valve: The valve was trileaflet. Leaflets exhibited normal thickness and normal cuspal separation. Doppler: There was no stenosis. There was no regurgitation. Aorta: The root exhibited normal size. Mitral valve: There was normal leaflet separation. Doppler: The transmitral velocity was within the normal range. There was no evidence for stenosis. There was mild regurgitation. Left atrium: The atrium was severely dilated. Right ventricle: The size was normal. Systolic function was normal. Wall thickness was normal. Pulmonic valve: Doppler: There was trivial regurgitation. Pulmonary artery: Doppler: Systolic pressure was moderately increased. Estimated peak pressure was 60 mmHg. Tricuspid valve: The valve structure was normal. There was normal leaflet separation. Doppler: The transtricuspid velocity was within the normal range. There was no evidence for tricuspid stenosis. There was moderate regurgitation. Right atrium: Size was normal. Pericardium: The pericardium was normal in appearance. Impressions: The mitral valve appeared thickened in several views. Cannot exclude vegetation. [facility] HAYLEY to further evaluate. System measurement tables 2D LVOT Diam: 2 cm LA Diam: 3.9 cm LAAs A2C: 21.6 cm2 LAAs A4C: 26.8 cm2 LAESV A-L A2C: 78.2 ml LAESV A-L A4C: 98.3 ml LAESV Index (A-L): 48.8 ml/m2 LAESV MOD A2C: 75.5 ml LAESV MOD A4C: 95.5 ml LAESV(A-L): 96.7 ml LALs A2C: 5.1 cm IVSd: 0.7 cm LVIDd: 5.3 cm LVIDs: 4.1 cm LVPWd: 0.6 cm CW AV VTI: 23.9 cm AV Vmax: 1.5 m/s AV Vmean: 1 m/s AV maxP mmHg AV meanP.4 mmHg MV VTI: 22 cm MV Vmax: 1 m/s MV Vmean: 0.6 m/s MV maxP.1 mmHg MV meanP.8 mmHg TR Vmax: 3.3 m/s MM TAPSE: 3.5 cm PW ALINE (VTI): 2.6 cm2 ALINE Vmax: 2.3 cm2 LVOT VTI: 19.3 cm LVOT Vmax: 1.1 m/s LVOT Vmean: 0.7 m/s LVOT maxP.8 mmHg LVOT meanP.1 mmHg MV E/A Ratio: 1.3 MV PHT: 49.7 ms MVA By PHT: 4.4 cm2 LATERAL E': 0.1 m/s LATERAL E/E': 6.6 SEPTAL E': 0.1 m/s SEPTAL E/E': 8.3 Prepared and signed by Zechariah Degroot MD Signed 08-Oct-2017 18:05:52 Procedure Note Zechariah Degroot MD - 10/08/2017 [place] [address] Transthoracic Echocardiogram 2D, M-mode, Doppler, and Color Doppler Patient: CHELA MCNULTY MR number: [id number] Height: 65 in Weight: 198.7 lb BSA: 1.97 m?? Study date: 08-Oct-2017 : 1970 Age: 47 years Gender: Female Race: Black Allergies: ADHESIVE SENSITIVITY [employer] Installer: Braxton Sheppard RDCS Referring Physician: Singh Moyer MD Reading Physician: Zechariah Degroot MD Impressions: The mitral valve appeared thickened in several views. Cannot exclude vegetation. [facility] HAYLEY to further evaluate. Summary: - Clinical question: - Bacteremia - Left ventricle: - Size was normal. - Systolic function was normal. Ejection fraction was estimated to be 55 %. - There were no regional wall motion abnormalities. - Wall thickness was normal. - Left ventricular diastolic function parameters were normal. - Mitral valve: - There was mild regurgitation. - Left atrium: - The atrium was severely dilated. - Pulmonary arteries: - Systolic pressure was moderately increased. Estimated peak pressure was 60 mmHg. - Tricuspid valve: - There was moderate regurgitation. - Impressions: - The mitral valve appeared thickened in several views. Cannot exclude vegetation. [facility] HAYLEY to further evaluate. Recommendations: The clinical service was notified of these findings. Indications: Bacteremia History: Prior history: Vitamin D, Chemotherapy, BIANCA, HTN, Breast Cancer Procedure: The procedure was performed in the echo lab. This was a routine study. The transthoracic approach was used. The study included complete 2D imaging, M-mode, complete spectral Doppler, and color Doppler. Systolic blood pressure was 105 mmHg. Diastolic blood pressure was 64 mmHg. Images were obtained from the parasternal, apical, subcostal, and suprasternal notch acoustic windows. Left ventricle: Size was normal. Systolic function was normal. Ejection fraction was estimated to be 55 %. There were no regional wall motion abnormalities. Wall thickness was normal. Doppler: Left ventricular diastolic function parameters were normal. Aortic valve: The valve was trileaflet. Leaflets exhibited normal thickness and normal cuspal separation. Doppler: There was no stenosis. There was no regurgitation. Aorta: The root exhibited normal size. Mitral valve: There was normal leaflet separation. Doppler: The transmitral velocity was within the normal range. There was no evidence for stenosis. There was mild regurgitation. Left atrium: The atrium was severely dilated. Right ventricle: The size was normal. Systolic function was normal. Wall thickness was normal. Pulmonic valve: Doppler: There was trivial regurgitation. Pulmonary artery: Doppler: Systolic pressure was moderately increased. Estimated peak pressure was 60 mmHg. Tricuspid valve: The valve structure was normal. There was normal leaflet separation. Doppler: The transtricuspid velocity was within the normal range. There was no evidence for tricuspid stenosis. There was moderate regurgitation. Right atrium: Size was normal. Pericardium: The pericardium was normal in appearance. Impressions: The mitral valve appeared thickened in several views. Cannot exclude vegetation. [facility] HAYLEY to further evaluate. System measurement tables 2D LVOT Diam: 2 cm LA Diam: 3.9 cm LAAs A2C: 21.6 cm2 LAAs A4C: 26.8 cm2 LAESV A-L A2C: 78.2 ml LAESV A-L A4C: 98.3 ml LAESV Index (A-L): 48.8 ml/m2 LAESV MOD A2C: 75.5 ml LAESV MOD A4C: 95.5 ml LAESV(A-L): 96.7 ml LALs A2C: 5.1 cm IVSd: 0.7 cm LVIDd: 5.3 cm LVIDs: 4.1 cm LVPWd: 0.6 cm CW AV VTI: 23.9 cm AV Vmax: 1.5 m/s AV Vmean: 1 m/s AV maxP mmHg AV meanP.4 mmHg MV VTI: 22 cm MV Vmax: 1 m/s MV Vmean: 0.6 m/s MV maxP.1 mmHg MV meanP.8 mmHg TR Vmax: 3.3 m/s MM TAPSE: 3.5 cm PW ALINE (VTI): 2.6 cm2 ALINE Vmax: 2.3 cm2 LVOT VTI: 19.3 cm LVOT Vmax: 1.1 m/s LVOT Vmean: 0.7 m/s LVOT maxP.8 mmHg LVOT meanP.1 mmHg MV E/A Ratio: 1.3 MV PHT: 49.7 ms MVA By PHT: 4.4 cm2 LATERAL E': 0.1 m/s LATERAL E/E': 6.6 SEPTAL E': 0.1 m/s SEPTAL E/E': 8.3 Prepared and signed by Zechariah Degroot MD Signed 08-Oct-2017 18:05:52 Lynn Martínez MD ECHO ORDERABLES [facility] [address] [place] [address] * CULTURE VRE (10/08/2017 1:21 AM MANAGER WOUND CARE) Culture Negative for vancomycin-resi stant Enterococci (VRE) KAM 10/09/2017 7:09 AM MANAGER WOUND CARE [facility]CRO[facility] Stool RECTAL SWAB / Unknown Collection / Unknown 10/08/2017 1:21 AM MANAGER WOUND CARE 10/08/2017 1:29 AM MANAGER WOUND CARE Hector Schulz MD LAB - MICROBIOLOGY [place] Performing Organization Address [facility] Co de Phone Number [facility] [address] [place] [address], [facility] [phone] * CULTURE MRSA (10/08/2017 1:21 AM MANAGER WOUND CARE) Only the most recent of2 resultswithin the time period is included. Culture Negative for methicillin-resist ant Staphylococcus aureus (MRSA) KAM 10/09/2017 7:09 AM MANAGER WOUND CARE [facility] Microbiology RECTAL SWAB / Unknown Collection / Unknown 10/08/2017 1:21 AM MANAGER WOUND CARE 10/08/2017 1:29 AM MANAGER WOUND CARE Hector Schulz MD LAB - MICROBIOLOGY [place] Performing Organization Address [facility] de Phone Number [facility] [address] [facility] [address] [address], [facility] [phone] * XR CHEST 1VW PORTABLE (10/07/2017 12:12 PM MANAGER WOUND CARE) Anatomical Region Laterality Modality Chest Other Impressions 10/07/2017 1:16 PM MANAGER WOUND CARE IMPRESSION: Right subclavian central venous catheter port has been removed. A left internal jugular central venous catheter tip projects over the superior vena cava. Surgical clips project over the right hemidiaphragm. Lungs are mildly hypoinflated. Hazy opacities throughout the lungs may represent a combination of atelectasis are infection/inflammation versus pulmonary edema. There is no pleural effusion or pneumothorax. The cardiomediastinal silhouette is normal. Distal right clavicular resection is unchanged. Cervical spine interbody spacer is noted. This report was dictated by Saurabh Mo M.D. (residential sales). I, Dr. EMMA MENDOZA M.D. have personally reviewed and interpreted this examination/study. This report was electronically signed by EMMA MENDOZA M.D. ??on 10/07/2017 1:16 PM . Narrative 10/07/2017 1:16 PM MANAGER WOUND CARE EXAMINATION: Portable AP radiograph of the chest. HISTORY: PACU. intra-op Left IJ central line placement COMPARISON: Comparison is made with chest radiograph from 10/05/2017. FINDINGS/ Procedure Note Emma Mendoza MD - 12/05/2017 EXAMINATION: Portable AP radiograph of the chest. HISTORY: PACU. intra-op Left IJ central line placement COMPARISON: Comparison is made with chest radiograph from 10/05/2017. FINDINGS/ IMPRESSION IMPRESSION: Right subclavian central venous catheter port has been removed. A leftinternal jugular central venous catheter tip projects over the superiorvena cava. Surgical clips project over the right hemidiaphragm. Lungs aremildly hypoinflated. Hazy opacities throughout the lungs may represent a combination of atelectasis areinfection/inflammation versus pulmonary edema. There is no pleuraleffusion or pneumothorax. The cardiomediastinal silhouette is normal.Distal right clavicular resection is unchanged. Cervical spine interbody spacer is noted. This report was dictated by Saurabh Mo M.D. (residential [employer]). I, Dr. EMMA MENDOZA M.D. have personally reviewed and interpreted thisexamination/study. This report was electronically signed by EMMA MENDOZA M.D. on 10/07/20171:16 PM . Lisa Carballo MD DIAGNOSTIC IMAGING O RDERABLES * CULTURE AEROBIC (10/07/2017 11:26 AM MANAGER WOUND CARE) Only the most recent of12 resultswithin the time period is included. Culture Aerobic No Growth [facility] Gram Stain light Polymorphonuclear Cells [facility] Gram Stain light Red Blood Cells [facility] Gram Stain No Organism Seen [facility] Fluid specimen (specimen) 10/07/2017 11:26 AM MANAGER WOUND CARE 10/07/2017 11:59 AM MANAGER WOUND CARE Narrative [facility] - 10/10/2017 10:46 AM MANAGER WOUND CARE Right knee post irrigation Specimen Type->Body Fluid Resulting Lab: ?? [facility] [address] [place] [address] PH: [phone] Resulting Lab: ?? [facility] [address] [place] [address] PH: [phone] Edilberto Alvarez MD LAB - MICROBIOLOGY O RDERABLES Performing Organization Address [facility] Co de Phone Number [address] [phone] * PTT [facility] (10/07/2017 4:50 AM MANAGER WOUND CARE) Only the most recent of3 resultswithin the time period is included. APTT 31.6 23.0 - 38.4 Seconds [facility] Comment:Suggested therapeuti c range for full dose I.V. heparin therapy for venous thromboembolism is 66.0-91.0 seconds. Blood specimen (specimen) BLOOD SPECIMEN / Unknown 10/07/2017 4:50 AM MANAGER WOUND CARE 10/07/2017 5:05 AM MANAGER WOUND CARE Narrative [facility] - 10/07/2017 5:18 AM MANAGER WOUND CARE Please ensure that the aPTT specimen is received in the clinical lab within 1 hour of collection if it is used for therapeutic heparin monitoring. Processing of heparinized specimens older than 1 hour may result in inaccurate test results. Is patient on Heparin, Argatroban or Dabigatran?->N Juan R Dahl MD LAB - COAGULATION ORDERABLES Performing Organization Address [facility] Co de Phone Number [address] [phone] * CRYSTAL INDENTIFICATION SYNOVIAL FLUID (10/06/2017 10:11 AM MANAGER WOUND CARE) Only the most recent of4 resultswithin the time period is included. Crystal Exam Fluid No crystals seen. To be reviewed by pathologist. [facility] Synovial fluid specimen (specimen) (Synovial) 10/06/2017 10:11 AM MANAGER WOUND CARE 10/06/2017 10:33 AM MANAGER WOUND CARE Narrative [facility] - 10/06/2017 11:36 AM MANAGER WOUND CARE Right knee Yadiel Duffy DO LAB - BODY FLUID ORD ERABLES Performing Organization Address [facility]/ZIP Co de Phone Number [address] [phone] * PATHOLOGY SMEAR BODY FLUID (10/06/2017 10:11 AM MANAGER WOUND CARE) Only the most recent of4 resultswithin the time period is included. Pathology Diff Review DIFFERENTIAL REVIEW - CONFIRMED DIFFERENTIAL REVIEW - CONFIRMED [facility] Comment: Clinical History- Ms. Mcnulty is a 47 y/o woman with PMH of breast cancer, lupus on Plaquenil, HTN, HLD, hypothyroidism, reported facet joint replacement, bilateral knee arthoplasty, and recent I&D for septic right elbow who presented to [facility] ED with bilateral neck, bilateral back, bilateral knee, shoulder and bilateral leg pain. The pain began a couple of days ago and worsened to the point that she was unable to ambulate. ??She has chronic back and knee pain, but stated this pain was more severe. ?? She had subjective fevers at home. ?? Morphologic Findings- Review of the left shoulder synovial fluid reveals numerous neutrophils. ??Frequent intra- and extracellular bacteria are identified. ??Crystals are not identified. ??Please correlate these findings clinically and with the results of pending culture. Preliminary results reported to Dr. Maldonado at 1 pm on 10/06/[address] Constance Zhu. ?? This case has been personally reviewed and interpreted by the attending (teaching) pathologist. Mary Zhu MD / Yolanda Slaughter M.D. 10/08/2017. Synovial fluid specimen (specimen) (Synovial) 10/06/2017 10:11 AM MANAGER WOUND CARE 10/06/2017 10:30 AM MANAGER WOUND CARE Narrative [facility] - 10/08/2017 11:17 AM MANAGER WOUND CARE Left shoulder Yadiel Duffy DO LAB - PATHOLOGY/CYTO LOGY ORDERABLES Performing Organization Address [facility]/ZIP Co de Phone Number [address] [phone] * DIFFERENTIAL MANUAL FLUID (10/06/2017 10:11 AM MANAGER WOUND CARE) Only the most recent of4 resultswithin the time period is included. Band Relative % Fluid 4 % [facility] Segs % Fluid 73 % [facility] Synovial Lining Cells % 23 % [facility] Reflex Status Pathology fluid review to follow [facility] Synovial fluid specimen (specimen) (Synovial) 10/06/2017 10:11 AM MANAGER WOUND CARE 10/06/2017 10:30 AM MANAGER WOUND CARE Narrative [facility] - 10/06/2017 11:22 AM MANAGER WOUND CARE Left shoulder Moderate intracellular bacteria seen. Mononuclear cells (Monocytes, Macrophages and Synovial Lining Cells) Ref Range: 25-100 %. No reference ranges established for other cells. Yadiel Duffy DO LAB - BODY FLUID ORD ERABLES [address] [phone] * CELL COUNT W DIFF W CRYSTALS SYNOVIAL (10/06/2017 10:11 AM MANAGER WOUND CARE) Only the most recent of8 resultswithin the time period is included. Synovial fluid specimen (specimen) (Synovial) 10/06/2017 10:11 AM MANAGER WOUND CARE [facility] - 10/08/2017 11:17 AM MANAGER WOUND CARE Left shoulder The following orders were created for panel order Synovial fluid-cell ct, diff & crystals. Procedure ? Abnormality ? Status ? --------- ? ------ ? Synovial fluid-cell ct, d...[[id number]] ??Abnormal ?Final result ? MANUAL DIFFERENTIAL FLUID[[id number]] ? Final result ? PATHOLOGY REVIEW FLUID[[id number]] ?Normal ?Final result ? SYNOVIAL FLUID CRYSTALS[[id number]] ? Final result ? Please view results for these tests on the individual orders. Yadiel Duffy DO LAB - BODY FLUID ORD ERABLES Performing Organization Address [facility] Co de Phone Number [address] * CROSSMATCH RBC LEUKOREDUCED (10/06/2017 6:33 AM MANAGER WOUND CARE) 10/06/2017 6:33 AM MANAGER WOUND CARE 10/06/2017 6:33 AM MANAGER WOUND CARE Narrative [facility] - 10/06/2017 6:33 AM MANAGER WOUND CARE # of Units->2 Juan R Dahl MD LAB - BLOOD BANK O RDERABLES Performing Organization Address [facility] de Phone Number [address] * BETA-2 GLYCOPROTEIN 1 ANTIBODY IGG (10/06/2017 6:15 AM MANAGER WOUND CARE) Only the most recent of2 resultswithin the time period is included. Beta-2 Glycoprotein I Antibody IgG <20.0 <20.0 [facility] Blood specimen (specimen) BLOOD SPECIMEN / Unknown 10/06/2017 6:15 AM MANAGER WOUND CARE 10/06/2017 6:25 AM MANAGER WOUND CARE Juan R Dahl MD LAB - SEROLOGY ORD ERABLES Performing Organization Address [facility] Co de Phone Number [facility] [address] [phone] * BETA-2 GLYCOPROTEIN 1 ANTIBODY IGM (10/06/2017 6:15 AM MANAGER WOUND CARE) Only the most recent of2 resultswithin the time period is included. Beta-2 Glycoprotein Antibody IgM <20.0 <20.0 [facility] Blood specimen (specimen) BLOOD SPECIMEN / Unknown 10/06/2017 6:15 AM MANAGER WOUND CARE 10/06/2017 6:25 AM MANAGER WOUND CARE Juan R Dahl MD LAB - SEROLOGY ORD ERABLES [address] [phone] * (ABNORMAL) PROTEIN ELECTROPHORESIS WO INTERP BLOOD (10/06/2017 6:15 AM MANAGER WOUND CARE) Only the most recent of2 resultswithin the time period is included. Interpretation Serum PE Normal Pattern Normal Pattern [facility] Comment: Serum protein electrophoresis shows characteristic bands corresponding to albumin, alpha and beta globulins and polyclonal immunoglobulins. No monoclonal immunoglobulins detected. ??Non-secretory myeloma (NSM) and light chain only myeloma cannot be excluded on the basis of this result. ??Recommend serum free light chain measurements for complete evaluation of multiple myeloma. ??Measurement of serum free kappa and lambda immunoglobulin light chains can identify all patients with light chain only myeloma and up to 70% of patients with NSM. Sven Horvath MD *The electrophoresis pattern and the interpretation have been reviewed and verified by the teaching physician. Protein Total 5.7(L) 6.0 - 8.3 g/dL [facility] Albumin 2.9(L) 3.3 - 5.6 g/dL [facility] Alpha-1 Globulins 0.3 0.1 - 0.3 g/dL [facility] Alpha-2 Globulins 0.8 0.5 - 1.0 g/dL [facility] Beta Globulins 0.7 0.6 - 1.1 g/dL [facility] Gamma Globulins 1.0 0.6 - 1.6 g/dL [facility] Blood specimen (specimen) BLOOD SPECIMEN / Unknown 10/06/2017 6:15 AM MANAGER WOUND CARE 10/06/2017 6:27 AM MANAGER WOUND CARE Narrative [facility] - 10/09/2017 11:06 [address] W[address]ARE [address]. Oden has independently reviewed this case. ?? ebs Juan R Dahl MD LAB - CHEMISTRY OR DERABLES Performing Organization Address [facility] [place]/[facility] Co de Phone Number [address] [phone] * (ABNORMAL) LUPUS ANTICOAGULANT PANEL (10/06/2017 6:15 AM MANAGER WOUND CARE) Pathologist [facility] APTT 35.8 23.0 - 38.4 Seconds [facility] PT 16.8(H) 12.1 - 14.8 Seconds [facility] INR 1.4 [facility] [place] Buffer 62.[address] [facility] [place] Phospholipid 47.0 Seconds [facility] [place] Delta 15.9(H) <8.0 Seconds [facility] Interpretation [place] Positive (A) Negative [facility] Comment: Lupus Anticoagulants (LA), which are generally not associated with abnormal bleeding, may occur in combination with, as well as mask, a Factor VIII Inhibitor. This may increase the risk of abnormal bleeding. ??In such cases the Factor VIII is usually markedly decreased and does not normalize with test plasma dilution. ??LA are frequently associated with mild prolongation of PT. ??With moderate to marked PT prolongation (INR >1.5), a Factor II deficiency should be ruled out since this may predispose to abnormal bleeding. ??LA/Increased Anticardiolipin Antibodies are often transient and periodic retesting at 6-12 month intervals is recommended. Blood specimen (specimen) BLOOD SPECIMEN / Unknown 10/06/2017 6:15 AM MANAGER WOUND CARE 10/06/2017 6:25 AM MANAGER WOUND CARE Juan R Dahl MD LAB - HEMATOLOGY O RDERABLES Performing Organization Address [facility] [place]/[facility]/ZIP Co de Phone Number [address] [phone] * CARDIOLIPIN ANTIBODY IGA (10/06/2017 6:15 AM MANAGER WOUND CARE) Anticardiolipin Antibody IgA <15.0 <15.0 APL [facility] Blood specimen (specimen) BLOOD SPECIMEN / Unknown 10/06/2017 6:15 AM MANAGER WOUND CARE 10/06/2017 6:25 AM MANAGER WOUND CARE Juan R Dahl MD LAB - SEROLOGY ORD ERABLES [address] [phone] * CARDIOLIPIN ANTIBODY IGM (10/06/2017 6:15 AM MANAGER WOUND CARE) Only the most recent of2 resultswithin the time period is included. Anticardiolipin Antibody IgM <15.0 <15.0 MPL [facility] Blood specimen (specimen) BLOOD SPECIMEN / Unknown 10/06/2017 6:15 AM MANAGER WOUND CARE 10/06/2017 6:25 AM MANAGER WOUND CARE Juan R Dahl MD LAB - SEROLOGY ORD ERABLES Performing Organization Address [facility] [place]/[facility] Co de Phone Number [address] [phone] * CARDIOLIPIN ANTIBODY IGG (10/06/2017 6:15 AM MANAGER WOUND CARE) Only the most recent of2 resultswithin the time period is included. Anticardiolipin Antibody IgG <15.0 <15.0 GPL [facility] Blood specimen (specimen) BLOOD SPECIMEN / Unknown 10/06/2017 6:15 AM MANAGER WOUND CARE 10/06/2017 6:25 AM MANAGER WOUND CARE Juan R Dahl MD LAB - SEROLOGY ORD ERABLES Performing Organization Address [place]/[facility] Co de Phone Number [address] [phone] * RPR (10/06/2017 6:15 AM MANAGER WOUND CARE) RPR Non-reacti ve Non-reacti ve [facility] Blood specimen (specimen) BLOOD SPECIMEN / Unknown 10/06/2017 6:15 AM MANAGER WOUND CARE 10/06/2017 6:27 AM MANAGER WOUND CARE Juan R Dahl MD LAB - CHEMISTRY OR DERABLES Performing Organization Address [facility] [place]/[facility]/ZIP Co de Phone Number [address] [phone] * BETA-2 GLYCOPROTEIN 1 ANTIBODY IGA (10/06/2017 6:15 AM MANAGER WOUND CARE) Beta-2 Glycoprotein I Antibody IgA <20.0 <20.0 [facility] Blood specimen (specimen) BLOOD SPECIMEN / Unknown 10/06/2017 6:15 AM MANAGER WOUND CARE 10/06/2017 6:25 AM MANAGER WOUND CARE Juan R Dahl MD LAB - SEROLOGY ORD ERABLES Performing Organization Address [facility] de Phone Number [address] [phone] * RIBOSOMAL P PROTEIN ANTIBODY (10/06/2017 6:15 AM MANAGER WOUND CARE) Only the most recent of3 resultswithin the time period is included. Anti-Ribosomal P Antibody <0.2 0.0 - 0.9 [facility] ([facility]) Blood specimen (specimen) BLOOD SPECIMEN / Unknown 10/06/2017 6:15 AM MANAGER WOUND CARE 10/06/2017 6:28 AM MANAGER WOUND CARE Narrative [facility] ([facility]) - 10/08/2017 1:08 PM MANAGER WOUND CARE Performed at: ??01 - [facility] [address] [place], [place] ??[id number] [employer] Wrapper: Shady Kent PhD, Phone: ??[phone] Juan R Dahl MD LAB - CHEMISTRY OR DERABLES Performing Organization Address [facility] [place]/[facility] Co de Phone Number [facility]) [address] [place] [address] * SCLERODERMA 70 (SCL) ANTIBODY (10/06/2017 6:15 AM MANAGER WOUND CARE) SCL-70 Antibody 5.1 0.0 - 19.9 Units [facility] Comment: GIAN Antibody Numeric Result Interpretation: ?<20.0 Units: ??Negative ?20.0 - 39.0 Units: ??Weakly Positive ?>39.0 Units: ??Positive ? Blood specimen (specimen) BLOOD SPECIMEN / Unknown 10/06/2017 6:15 AM MANAGER WOUND CARE 10/06/2017 6:27 AM MANAGER WOUND CARE Juan R Dahl MD LAB - CHEMISTRY OR DERABLES Performing Organization Address City/[facility]/ZIP Co de Phone Number [address] [phone] * ANGIOTENSIN CONVERTING ENZYME BLOOD (10/06/2017 6:15 AM MANAGER WOUND CARE) Angiotensin-Con verting Enzyme 30 14 - 82 U/L [facility] ([facility]) Blood specimen (specimen) BLOOD SPECIMEN / Unknown 10/06/2017 6:15 AM MANAGER WOUND CARE 10/06/2017 6:27 AM MANAGER WOUND CARE [facility] - 10/08/2017 3:14 PM MANAGER WOUND CARE Performed at: ??01 - [facility] [address], [place] ??[id number] [employer] Wrapper: Shady Kent PhD, Phone: ??[phone] Juan R Dahl MD LAB - CHEMISTRY OR DERABLES Performing Organization Address City/[facility]/ZIP Co de Phone Number [facility] ([facility]) [address] [place] [address] * ALDOLASE (10/06/2017 6:15 AM MANAGER WOUND CARE) Only the most recent of3 resultswithin the time period is included. Aldolase 6.1 3.3 - 10.3 U/L [facility] ([facility]) Blood specimen (specimen) BLOOD SPECIMEN / Unknown 10/06/2017 6:15 AM MANAGER WOUND CARE 10/06/2017 6:27 AM MANAGER WOUND CARE Narrative [facility] ([facility]) - 10/08/2017 3:14 PM MANAGER WOUND CARE Performed at: ??01 - [facility] [address] [place], [place] ??[id number] [employer] Wrapper: Shady Kent PhD, Phone: ??[phone] Juan R Dahl MD LAB - CHEMISTRY OR DERABLES Performing Organization Address City/[facility]/ZIP Co de Phone Number [facility] ([facility]) [address] [place] [address] * LDH BLOOD (10/06/2017 6:15 AM MANAGER WOUND CARE) Only the most recent of2 resultswithin the time period is included. LDH Total 211 125 - 243 Units/L [facility] Blood specimen (specimen) BLOOD SPECIMEN / Unknown 10/06/2017 6:15 AM MANAGER WOUND CARE 10/06/2017 6:25 AM MANAGER WOUND CARE Juan R Dahl MD LAB - CHEMISTRY OR DERABLES Performing Organization Address [facility] [place]/[facility] Co de Phone Number [address] [phone] * MRI CERVICAL SPINE WWO CONT (10/06/2017 3:05 AM MANAGER WOUND CARE) Anatomical Region Laterality Modality Spine Other Impressions 10/06/2017 10:03 AM MANAGER WOUND CARE IMPRESSION: 1. Multilevel degenerative disc and joint disease as described above without significant central canal or neural foraminal stenosis. 2. No evidence of epidural abscess as clinically queried. This report was approved ??by Venkatesh Huerta ?? on 10/06/2017 8:32 AM . I, Dr. JIMENA ROE M.D. have personally reviewed and interpreted this examination/study. This report was electronically signed by JIMENA ROE M.D. ??on 10/06/2017 10:03 AM . Narrative 10/06/2017 10:03 AM MANAGER WOUND CARE EXAMINATION: Magnetic resonance imaging (MRI) of the cervical, thoracic, and lumbar spine without and with contrast HISTORY: Elevated inflammatory markers. TECHNIQUE: MRI of the cervical, thoracic, and lumbar spine was performed prior to and following the uneventful administration of 8 mL Gadavist intravenous gadolinium contrast according to standard protocol. FINDINGS: No prior study is available for comparison at the time of this dictation. Cervical spine: The alignment is normal. A discectomy at C5-6 creates susceptibility artifact which limits evaluation in this region. Otherwise, the noninstrumented vertebral bodies are normal in height without evidence of compression fractures. Marrow signal intensity is normal. The craniocervical junction and visualized portions of the posterior fossa appear normal. The spinal cord appears normal. No abnormal enhancement is identified. Other than the C5-6 level where a discectomy has been performed, the intervertebral disc heights are normal. A few subcentimeter level 2 and 5 are present. Normal flow voids are identified in the vertebral arteries. C2-3: There is no disc bulge. There is no central canal stenosis. There is no facet osteoarthritis. There is no uncovertebral joint osteoarthritis. There is no neural foraminal stenosis. C3-4: There is no disc bulge. There is no central canal stenosis. There is no facet osteoarthritis. There is mild left uncovertebral joint osteoarthritis. There is mild left neural foraminal stenosis. C4-5: There is no disc bulge. There is no central canal stenosis. There is no facet osteoarthritis. There is no uncovertebral joint osteoarthritis. There is no neural foraminal stenosis. C5-6: There is mild disc bulge. There is mild central canal stenosis. There is mild bilateral facet osteoarthritis. There is no uncovertebral joint osteoarthritis. There is no neural foraminal stenosis. C6-7: There is no disc bulge. There is no central canal stenosis. There is mild bilateral facet osteoarthritis. There is no uncovertebral joint osteoarthritis. There is no neural foraminal stenosis. C7-T1: There is no disc bulge. There is no central canal stenosis. There is no facet osteoarthritis. There is no uncovertebral joint osteoarthritis. There is no neural foraminal stenosis. Thoracic spine: The alignment is normal. Vertebral bodies are normal in height without evidence of compression fractures. Marrow signal intensity is normal. The spinal cord appears normal. No abnormal enhancement is identified. The intervertebral discs appear normal. There is ligamentum flavum thickening at the T9-10 and T11-12 levels. Mild central canal stenosis is present at T11-12 secondary to the ligamentum flavum thickening, particularly on the right. The facets appear normal. No neural foraminal stenosis is seen. Mild bilateral dependent atelectasis is present. Lumbar spine: The alignment is normal. Vertebral bodies are normal in height without evidence of compression fractures. There is a small hemangioma in the L4 vertebral body. Otherwise, the marrow signal intensity is normal. The conus medullaris terminates at the level of L1 and the distal spinal cord signal intensity is normal. No abnormal enhancement is identified. The intervertebral discs are normal in height. No soft tissue abnormality is identified. L1-L2: There is no disc bulge. There is no central canal stenosis. There is mild bilateral facet osteoarthritis. There is no neural foraminal stenosis. L2-L3: There is diffuse disc bulge. There is no central canal stenosis. There is mild bilateral facet osteoarthritis. There is no neural foraminal stenosis. L3-L4: There is diffuse disc bulge. There is no central canal stenosis. There is mild bilateral facet osteoarthritis. There is no neural foraminal stenosis. L4-L5: There is diffuse disc bulge. There is no central canal stenosis. There is mild to moderate bilateral facet osteoarthritis. There is no neural foraminal stenosis. L5-S1: There is no disc bulge. There is no central canal stenosis. There is mild bilateral facet osteoarthritis. There is no neural foraminal stenosis. Procedure Note Jimena Roe MD - 12/05/2017 EXAMINATION: Magnetic resonance imaging (MRI) of the cervical, thoracic,and lumbar spine without and with contrast HISTORY: Elevated inflammatory markers. TECHNIQUE: MRI of the cervical, thoracic, and lumbar spine was performedprior to and following the uneventful administration of 8 mL Gadavistintravenous gadolinium contrast according to standard protocol. FINDINGS: No prior study is available for comparison at the time of thisdictation. Cervical spine: The alignment is normal. A discectomy at C5-6 creates susceptibilityartifact which limits evaluation in this region. Otherwise, thenoninstrumented vertebral bodies are normal in height without evidence ofcompression fractures. Marrow signal intensity is normal. The craniocervical junction and visualized portions of theposterior fossa appear normal. The spinal cord appears normal. No abnormalenhancement is identified. Other than the C5-6 level where a discectomyhas been performed, the intervertebral disc heights are normal. A few subcentimeter level 2 and 5are present. Normal flow voids are identified in the vertebral arteries. C2-3: There is no disc bulge. There is no central canal stenosis. There isno facet osteoarthritis. There is no uncovertebral joint osteoarthritis.There is no neural foraminal stenosis. C3-4: There is no disc bulge. There is no central canal stenosis. There isno facet osteoarthritis. There is mild left uncovertebral jointosteoarthritis. There is mild left neural foraminal stenosis. C4-5: There is no disc bulge. There is no central canal stenosis. There isno facet osteoarthritis. There is no uncovertebral joint osteoarthritis.There is no neural foraminal stenosis. C5-6: There is mild disc bulge. There is mild central canal stenosis.There is mild bilateral facet osteoarthritis. There is no uncovertebraljoint osteoarthritis. There is no neural foraminal stenosis. C6-7: There is no disc bulge. There is no central canal stenosis. There ismild bilateral facet osteoarthritis. There is no uncovertebral jointosteoarthritis. There is no neural foraminal stenosis. C7-T1: There is no disc bulge. There is no central canal stenosis. Thereis no facet osteoarthritis. There is no uncovertebral jointosteoarthritis. There is no neural foraminal stenosis. Thoracic spine: The alignment is normal. Vertebral bodies are normal in height withoutevidence of compression fractures. Marrow signal intensity is normal. Thespinal cord appears normal. No abnormal enhancement is identified. The intervertebral discs appear normal. There is ligamentum flavumthickening at the T9-10 and T11-12 levels. Mild central canal stenosis ispresent at T11-12 secondary to the ligamentum flavum thickening,particularly on the right. The facets appear normal. No neural foraminal stenosis is seen. Mild bilateral dependentatelectasis is present. Lumbar spine: The alignment is normal. Vertebral bodies are normal in height withoutevidence of compression fractures. There is a small hemangioma in the [id number] body. Otherwise, the marrow signal intensity is normal. Theconus medullaris terminates at the level of L1 and the distal spinal cord signal intensity is normal. No abnormalenhancement is identified. The intervertebral discs are normal in height.No soft tissue abnormality is identified. L1-L2: There is no disc bulge. There is no central canal stenosis. Thereis mild bilateral facet osteoarthritis. There is no neural foraminalstenosis. L2-L3: There is diffuse disc bulge. There is no central canal stenosis.There is mild bilateral facet osteoarthritis. There is no neural foraminalstenosis. L3-L4: There is diffuse disc bulge. There is no central canal stenosis.There is mild bilateral facet osteoarthritis. There is no neural foraminalstenosis. L4-L5: There is diffuse disc bulge. There is no central canal stenosis.There is mild to moderate bilateral facet osteoarthritis. There is noneural foraminal stenosis. L5-S1: There is no disc bulge. There is no central canal stenosis. Thereis mild bilateral facet osteoarthritis. There is no neural foraminalstenosis. IMPRESSION IMPRESSION: 1. Multilevel degenerative disc and joint disease as described abovewithout significant central canal or neural foraminal stenosis. 2. No evidence of epidural abscess as clinically queried. This report was approved by Venkatesh Huerta on 10/06/2017 8:[address] JIMENA Brower M.D. have personally reviewed and interpreted thisexamination/study. This report was electronically signed by JIMENA ROE M.D. on 10/06/201710:03 AM . Juan R Dahl MD MR ORDERABLES * XR KNEE RIGHT 2VW OR LESS (10/05/2017 10:26 PM MANAGER WOUND CARE) Anatomical Region Laterality Modality Lower Extremity Other Impressions 10/06/2017 10:46 AM MANAGER WOUND CARE IMPRESSION: Normal postoperative appearance of total knee arthroplasty. Dictated by Lalito Shukla DO (residential sales). Dr. Arsenio Brower M.D. have personally reviewed and interpreted this examination/study. This report was electronically signed by Arsenio PARKER M.D. ??on 10/06/2017 10:46 AM . Narrative 10/06/2017 10:46 AM MANAGER WOUND CARE EXAMINATION: PX KNEE RIGHT 1 OR 2 VW HISTORY: septic joint ro COMPARISON: No prior study is available for comparison. FINDINGS: Postsurgical changes of total knee arthroplasty are identified. There is no evidence of hardware loosening. ??Bone density and texture are normal. No soft tissue swelling is present. Procedure Note Megan Parker MD - 12/05/2017 EXAMINATION: PX KNEE RIGHT 1 OR 2 VW HISTORY: septic joint ro COMPARISON: No prior study is available for comparison. FINDINGS: Postsurgical changes of total knee arthroplasty are identified. There isno evidence of hardware loosening. Bone density and texture are normal.No soft tissue swelling is present. IMPRESSION IMPRESSION: Normal postoperative appearance of total knee arthroplasty. Dictated by Lalito Shukla DO (residential sales). Dr. Arsenio Brower M.D. have personally reviewed and interpreted thisexamination/study. This report was electronically signed by Arsenio PARKER M.D. on10/06/2017 10:46 AM . Palak Joseph MD DIAGNOSTIC IMAGING O RDERABLES * XR KNEE LEFT 2VW OR LESS (10/05/2017 10:25 PM MANAGER WOUND CARE) Anatomical Region Laterality Modality Lower Extremity Other Impressions 10/06/2017 10:47 AM MANAGER WOUND CARE IMPRESSION: Normal postoperative appearance of total knee arthroplasty. Dictated by Lalito Shukla DO (residential sales). Dr. Arsenio Brower M.D. have personally reviewed and interpreted this examination/study. This report was electronically signed by Arsenio PARKER M.D. ??on 10/06/2017 10:47 AM . Narrative 10/06/2017 10:47 AM MANAGER WOUND CARE EXAMINATION: PX KNEE LEFT 1 OR 2 VW HISTORY: Pain. COMPARISON: No prior study is available for comparison. FINDINGS: Postsurgical changes of total knee arthroplasty are identified. There is no evidence of hardware loosening. Bone density and texture are normal. No soft tissue swelling is present. Procedure Note Megan Parker MD - 12/05/2017 EXAMINATION: PX KNEE LEFT 1 OR 2 VW HISTORY: Pain. COMPARISON: No prior study is available for comparison. FINDINGS: Postsurgical changes of total knee arthroplasty are identified. There isno evidence of hardware loosening. Bone density and texture are normal. Nosoft tissue swelling is present. IMPRESSION IMPRESSION: Normal postoperative appearance of total knee arthroplasty. Dictated by Lalito Shukla DO (residential sales). Dr. Arsenio Brower M.D. have personally reviewed and interpreted thisexamination/study. This report was electronically signed by Arsenio PARKER M.D. on10/06/2017 10:47 AM . Palak Joseph MD DIAGNOSTIC IMAGING O RDERABLES * XR CHEST 1VW (10/05/2017 4:03 PM MANAGER WOUND CARE) Anatomical Region Laterality Modality Chest Other Impressions 10/05/2017 4:29 PM MANAGER WOUND CARE IMPRESSION: Comparison is made with the prior examination dated 08/29/2017. A right internal jugular approach venous catheter ends in the superior vena cava. The lung volumes are small. The lungs are free of focal consolidation. No pleural effusion or pneumothorax is seen. The heart size and mediastinal contours are unchanged. Distal right clavicular resection is unchanged. This report was electronically signed by LINDA GUADARRAMA M.D. ??on 10/05/2017 4:29 PM . Narrative 10/05/2017 4:29 PM MANAGER WOUND CARE Exam: Chest 1 view. DATE: 10/05/2017 at 3:59 PM. HISTORY: Hypoxia. Procedure Note Linda Guadarrama MD - 12/05/2017 Exam: Chest 1 view. DATE: 10/05/2017 at 3:59 PM. HISTORY: Hypoxia. IMPRESSION IMPRESSION: Comparison is made with the prior examination dated 08/29/2017. A rightinternal jugular approach venous catheter ends in the superior vena cava.The lung volumes are small. The lungs are free of focal consolidation. Nopleural effusion or pneumothorax is seen. The heart size and mediastinal contours are unchanged. Distalright clavicular resection is unchanged. This report was electronically signed by LINDA GUADARRAMA M.D. on 10/05/20174:29 PM . Palak Joseph MD DIAGNOSTIC IMAGING O RDERABLES * XR ELBOW RIGHT 3VW OR MORE (10/05/2017 1:45 PM MANAGER WOUND CARE) Anatomical Region Laterality Modality Upper Extremity Other Impressions 10/05/2017 2:42 PM MANAGER WOUND CARE IMPRESSION: No acute fracture or dislocation identified. Report dictated by Josue Vyas M.D. ([employer]idential sales). I, Dr. EMMA MENDOZA M.D. have personally reviewed and interpreted this examination/study. This report was electronically signed by EMMA MENDOZA M.D. ??on 10/05/2017 2:42 PM . Narrative 10/05/2017 2:42 PM MANAGER WOUND CARE EXAMINATION: PX ELBOW RIGHT 3+ VW HISTORY: pain COMPARISON: No prior study is available for comparison. FINDINGS: The osseous structures are intact and well aligned without acute fracture or dislocation. The joint spaces are preserved. No joint effusion is seen. Bone density and texture are normal. No soft tissue swelling is present. Procedure Note Emma Mendoza MD - 12/05/2017 EXAMINATION: PX ELBOW RIGHT 3+ VW HISTORY: pain COMPARISON: No prior study is available for comparison. FINDINGS: The osseous structures are intact and well aligned without acute fractureor dislocation. The joint spaces are preserved. No joint effusion is seen.Bone density and texture are normal. No soft tissue swelling is present. IMPRESSION IMPRESSION: No acute fracture or dislocation identified. Report dictated by Josue Vyas M.D. (residential sales). Dr. EMMA Brower M.D. have personally reviewed and interpreted thisexamination/study. This report was electronically signed by EMMA MENDOZA M.D. on 10/05/20172:42 PM . Palak Joseph MD DIAGNOSTIC IMAGING O RDERABLES * XR ELBOW LEFT 2VW (10/05/2017 1:40 PM MANAGER WOUND CARE) Anatomical Region Laterality Modality Upper Extremity Other Impressions 10/05/2017 4:26 PM MANAGER WOUND CARE IMPRESSION: No acute fracture or dislocation identified. Dictated by Ev Avitia MD (residential sales). Dr. LINDA Brower M.D. have personally reviewed and interpreted this examination/study. This report was electronically signed by LINDA GUADARRAMA M.D. ??on 10/05/2017 4:26 PM . Narrative 10/05/2017 4:26 PM MANAGER WOUND CARE EXAMINATION: PX ELBOW LEFT 2 VW HISTORY: pain COMPARISON: No prior study is available for comparison. FINDINGS: The osseous structures are intact and well aligned without acute fracture or dislocation. The joint spaces are preserved. No joint effusion is seen. Bone density and texture are normal. No soft tissue swelling is present. Procedure Note Linda Guadarrama MD - 12/05/2017 EXAMINATION: PX ELBOW LEFT 2 VW HISTORY: pain COMPARISON: No prior study is available for comparison. FINDINGS: The osseous structures are intact and well aligned without acute fractureor dislocation. The joint spaces are preserved. No joint effusion is seen.Bone density and texture are normal. No soft tissue swelling is present. IMPRESSION IMPRESSION: No acute fracture or dislocation identified. Dictated by Ev Avitia MD (residential sales). Dr. LINDA Brower M.D. have personally reviewed and interpreted thisexamination/study. This report was electronically signed by LINDA GUADARRAMA M.D. on 10/05/20174:26 PM . Palak Joseph MD DIAGNOSTIC IMAGING O RDERABLES * XR PELVIS W LEFT HIP 2VW (10/05/2017 1:35 PM MANAGER WOUND CARE) Anatomical Region Laterality Modality Other Impressions 10/05/2017 2:41 PM MANAGER WOUND CARE IMPRESSION: No acute fracture identified. Dictated by Ev Avitia MD (residential sales). Dr. EMMA Brower M.D. have personally reviewed and interpreted this examination/study. This report was electronically signed by EMMA MENDOZA M.D. ??on 10/05/2017 2:41 PM . Narrative 10/05/2017 2:41 PM MANAGER WOUND CARE EXAMINATION: PX HIP LEFT 2 VW W/ PELVIS HISTORY: pain COMPARISON: Comparison is made with a study from FINDINGS: No acute fracture is identified. The femoral heads appear well-seated within their respective acetabula. The pubic symphysis is intact. Bone density and texture are normal. The sacroiliac joints are normal. Procedure Note Emma Mendoza MD - 12/05/2017 EXAMINATION: PX HIP LEFT 2 VW W/ PELVIS HISTORY: pain COMPARISON: Comparison is made with a study from FINDINGS: No acute fracture is identified. The femoral heads appear well-seatedwithin their respective acetabula. The pubic symphysis is intact. Bonedensity and texture are normal. The sacroiliac joints are normal. IMPRESSION IMPRESSION: No acute fracture identified. Dictated by Ev Avitia MD (residential sales). I, Dr. EMMA MENDOZA M.D. have personally reviewed and interpreted thisexamination/study. This report was electronically signed by EMMA MENDOZA M.D. on 10/05/20172:41 PM . Palak Joseph MD DIAGNOSTIC IMAGING O RDERABLES * INFLUENZA A+B PCR (10/05/2017 1:18 PM MANAGER WOUND CARE) [facility] Influenza A Rapid ANASTASIA Negative Negative [facility] Influenza B ANASTASIA Rapid Negative Negative [facility] Nasopharyngeal NASOPHARYNGEAL SWAB / Unknown 10/05/2017 1:18 PM MANAGER WOUND CARE 10/05/2017 1:23 PM MANAGER WOUND CARE Narrative [facility] - 10/05/2017 1:53 PM MANAGER WOUND CARE Assay performed by Nucleic Acid Amplification. Results do not exclude the possibility of a mixed viral infection. NOTE: ??Detecting and identifying specific viral nucleic acids from individuals exhibiting signs and symptoms of respiratory infection aids in the diagnosis of respiratory infection, if used in conjunction with other clinical and laboratory findings. The results of this test should not be used as the sole basis for diagnosis, treatment, or patient management decisions. Palak Joseph MD LAB - MICROBIOLOGY O RDBARBARABLES [address] [phone] * (ABNORMAL) HEPATIC FUNCTION PANEL (10/05/2017 11:25 AM MANAGER WOUND CARE) [facility] Protein Total 6.5 6.0 - 8.3 g/dL [facility] Albumin 2.6(L) 3.4 - 5.0 g/dL [facility] Bilirubin Total 0.9 0.2 - 1.2 mg/dL [facility] Bilirubin Conjugated 0.6(H) 0.0 - 0.5 mg/dL [facility] Bilirubin Unconjugated 0.3 Unconjugated Bilirubin is a calculated value: Reference ranges have not been established. mg/dL [facility] Alkaline Phosphatase 112 40 - 150 Units/L [facility] ALT 39 0 - 55 Units/L [facility] AST 38(H) 5 - 34 Units/L [facility] Albumin/Globulin Ratio 0.7(L) 1.1 - 2.3 [facility] Blood specimen (specimen) BLOOD SPECIMEN / Unknown 10/05/2017 11:25 AM MANAGER WOUND CARE 10/05/2017 11:31 AM MANAGER WOUND CARE Palak Joseph MD LAB - CHEMISTRY [place] [facility] Organization Address City/State/ZIP Co de Phone Number [address] [phone] * (ABNORMAL) ORGANISM ID REFLEXED (10/05/2017 10:18 AM MANAGER WOUND CARE) Staphylococcus Not Detected Not Detected, Invalid, Indeterminate [facility] Staphylococcus aureus Not Detected Not Detected, Indeterminate, Invalid [facility] mecA Methicillin Resistance Not Applicable Not Detected, Indeterminate, Invalid, Not Applicable [facility] Enterococcus Not Detected Not Detected, Indeterminate, Invalid [facility] Van A/B Vancomycin Resistance Not Applicable Not Detected, Indeterminate, Invalid, Not Applicable [facility] Streptococcus Detected(A) Not Detected, Indeterminate, Invalid [facility] Streptococcus pyogenes (Group A) Detected(A) Not Detected, Indeterminate, Invalid [facility] Comment:Group A Strep (Strep tococcus pyogenes) detected, by nucleic acid testing. Drug of Choice: Penicillin or Ampicillin. Non-susceptible isolates are extremely rare. Streptococcus agalactiae (Group B) Not Detected Not Detected, Indeterminate, Invalid [facility] Streptococcus pneumoniae Not Detected Not Detected, Invalid [facility] Listeria monocytogenes Not Detected Not Detected, Indeterminate, Invalid [facility] Enterobacteriaceae Not Detected Not Detected, Indeterminate, Invalid [facility] Enterobacter cloacae complex Not Detected Not Detected, Indeterminate, Invalid [facility] Escherichia coli Not Detected Not Detected, Indeterminate, Invalid [facility] Klebsiella oxytoca Not Detected Not Detected, Indeterminate, Invalid [facility] Klebsiella pneumoniae Not Detected Not Detected, Indeterminate, Invalid [facility] Proteus Species Not Detected Not Detected, Indeterminate, Invalid [facility] Serratia marcescens Not Detected Not Detected , Indeterminate, Invalid [facility] Pseudomonas aeruginosa Not Detected Not Detected, Indeterminate, Invalid [facility] Acinetobacter baumannii Not Detected Not Detected, Indeterminate, Invalid [facility] KPC Not Applicable Not Detected, Indeterminate, Invalid, Not Applicable [facility] Haemophilus Influenzae Not Detected Not Detected, Indeterminate, Invalid [facility] Neisseria meningitidis Not Detected Not Detected, Indeterminate, Invalid [facility] Concetta albicans Not Detected Not Detected, Indeterminate, Invalid [facility] Concetta glabrata Not Detected Not Detected, Indeterminate, Invalid [facility] Concetta krusei Not Detected Not Detected, Indeterminate, Invalid [facility] Concetta parapsilosis Not Detected Not Detecte d, Indeterminate, Invalid [facility] Concetta tropicalis Not Detected Not Detected, Indeterminate, Invalid [facility] Blood specimen (specimen) (Venous, Peripheral) 10/05/2017 10:18 AM MANAGER WOUND CARE 10/05/2017 10:29 AM MANAGER WOUND CARE [facility] - 10/06/2017 12:58 AM MANAGER WOUND CARE Antimicrobial resistance can occur via multiple mechanisms. A Not Detected result for the [employer] Antimicrobial resistance gene assays does not indicate antimicrobial susceptibility. Sub-culturing is required for species identification and susceptibility testing of isolates. Resulting Lab: ?? [facility] MICROBIOLOGY [address] [place] [address] PH: [phone] Palak Joseph MD LAB - MICROBIOLOGY O RDERABLES [address] [phone] * CK + CKMB PANEL (10/05/2017 10:17 AM MANAGER WOUND CARE) Only the most recent of2 resultswithin the time period is included. CK Total 101 30 - 200 Units/L [facility] CK-MB 0.1 0.0 - 6.6 ng/mL [facility] Blood specimen (specimen) BLOOD SPECIMEN / Unknown 10/05/2017 10:17 AM MANAGER WOUND CARE 10/05/2017 10:30 AM MANAGER WOUND CARE Palak Joseph MD LAB - CHEMISTRY [place] Performing Organization Address City/[facility]/ZIP Co de Phone Number [address] [phone] * HCG URINE QUALITATIVE - POCT (IP) [facility] (10/05/2017 10:17 AM MANAGER WOUND CARE) Only the most recent of2 resultswithin the time period is included. Test Urine negative [facility] Urine specimen (specimen) 10/05/2017 10:17 AM MANAGER WOUND CARE Palak Joseph MD LAB - POINT OF CARE ORDERABLES Performing Organization Address [facility] [place]/[facility]/ZIP Co de Phone Number [address] * TSH (09/11/2017 4:02 PM MANAGER WOUND CARE) Only the most recent of3 resultswithin the time period is included. TSH 0.820 0.350 - 4.940 uIU/mL [facility] Blood specimen (specimen) BLOOD SPECIMEN / Unknown 09/11/2017 4:02 PM MANAGER WOUND CARE 09/11/2017 4:15 PM MANAGER WOUND CARE Romi Heredia DO LAB - CHEMISTRY [place] Performing Organization Address [facility] [place]/[facility] Co de Phone Number [address] [phone] * (ABNORMAL) LIPID PROFILE (09/11/2017 4:02 PM MANAGER WOUND CARE) Cholesterol Total 225(H) <200 mg/dL [facility] HDL 53 >40 mg/dL [facility] Comment: ATP III Classification of HDL Cholesterol: ? <40 mg/dL: ??Considered a major risk factor. ? >60 mg/dL: ??Considered a negative risk factor. ? LDL Calculated 141(H) <100 mg/dL [facility] Comment: ATP III Classification of LDL Cholesterol: ?<100 mg/dL: ??Optimal ? 100 - 129 mg/dL: ??Near Optimal/Above Optimal ? 130 - 159 mg/dL: ??Borderline High ? 160 - 189 mg/dL: ??High ?>190 mg/dL: ??Very High ? Triglycerides 154(H) <150 mg/dL [facility] Comment: ATP III Classification of Triglycerides: ?<150 mg/dL: ??Normal ? 150 - 199 mg/dL: ??Borderline High ? 200 - 400 mg/dL: ??High ?>500 mg/dL: ??Very High Blood specimen (specimen) BLOOD SPECIMEN / Unknown 09/11/2017 4:02 PM MANAGER WOUND CARE 09/11/2017 4:15 PM MANAGER WOUND CARE Romi Heredia DO LAB - CHEMISTRY [place] Performing Organization Address [facility] [place]/[facility] Co de Phone Number [facility] [address] [phone] * VAS RIGHT VENOUS DUPLEX UE (08/29/2017 4:17 PM MANAGER WOUND CARE) Anatomical Region Laterality Modality Other Scott Arnold MD VASCULAR LAB ORDERAB LES * LAB HISTORICAL RESULTS-ONBASE (08/22/2017) Only the most recent of3 resultswithin the time period is included. 08/22/2017 Historical Provider LAB - CHEMISTRY Amir[place] Performing Organization Address [facility] [place]/[facility] Co de Phone Number [facility] [address] * CT ELBOW RIGHT W CONTRAST (07/24/2017 1:48 PM MANAGER WOUND CARE) Anatomical Region Laterality Modality Other Impressions 07/24/2017 5:17 PM MANAGER WOUND CARE IMPRESSION: 1. A 3.4 x 1.8 x 1.4 cm collection in the soft tissues overlying the lateral aspect of the elbow joint compatible with abscess. Surrounding subcutaneous edema consistent with cellulitis. 2. Small elbow effusion. This could be reactive or due to septic arthritis. Clinical correlation and joint fluid aspiration could be considered for further evaluation. Dictated by Shefali Chew M.D. ??(Resident). I, Dr. SAMPSON GRECO MD have personally reviewed and interpreted this examination/study. This report was electronically signed by SAMPSON GRECO MD ??on 07/24/2017 5:17 PM . Narrative 07/24/2017 5:17 PM MANAGER WOUND CARE EXAMINATION: Computed tomography of the right elbow with contrast HISTORY: 47-year-old female with right lateral epicondylitis s/p surgical intervention on and right elbow cellulitis, history of breast cancer. TECHNIQUE: Computed tomography of the right elbow was performed following the uneventful administration of 100 mL Omnipaque 350 intravenous contrast according to standard protocol. FINDINGS: Comparison is made with prior right elbow radiographs dated 07/20/2017. Skin irregularity and subcutaneous fat stranding is seen, greatest at the lateral aspect of the elbow where there is a peripherally enhancing fluid collection in the soft tissues measuring 3.4 x 1.4 x 1.8 cm (series 8 image 31, series 10 image 71) compatible with an abscess. There is overlying skin irregularity. This fluid collection immediately overlies the elbow joint. There is a small elbow effusion which could be reactive although septic arthritis cannot be excluded based on imaging. No focal bony erosion is seen in the visualized bones of the distal arm and proximal to mid forearm. There is no fracture or dislocation of the elbow joint. There is mild degenerative change in the elbow with small osteophyte formation. Procedure Note Sampson Greco MD - 11/30/2017 EXAMINATION: Computed tomography of the right elbow with contrast HISTORY: 47-year-old female with right lateral epicondylitis s/p surgicalintervention on and right elbow cellulitis, history of breastcancer. TECHNIQUE: Computed tomography of the right elbow was performed followingthe uneventful administration of 100 mL Omnipaque 350 intravenous contrastaccording to standard protocol. FINDINGS: Comparison is made with prior right elbow radiographs dated109/19/2016. Skin irregularity and subcutaneous fat stranding is seen, greatest at thelateral aspect of the elbow where there is a peripherally enhancing fluidcollection in the soft tissues measuring 3.4 x 1.4 x 1.8 cm (series 8image 31, series 10 image 71) compatible with an abscess. There is overlying skin irregularity. Thisfluid collection immediately overlies the elbow joint. There is a smallelbow effusion which could be reactive although septic arthritis cannot beexcluded based on imaging. No focal bony erosion is seen in the visualized bones of the distal vineet proximal to mid forearm. There is no fracture or dislocation of the elbow joint. There is milddegenerative change in the elbow with small osteophyte formation. IMPRESSION IMPRESSION: 1. A 3.4 x 1.8 x 1.4 cm collection in the soft tissues overlying thelateral aspect of the elbow joint compatible with abscess. Surroundingsubcutaneous edema consistent with cellulitis. 2. Small elbow effusion. This could be reactive or due to septicarthritis. Clinical correlation and joint fluid aspiration could beconsidered for further evaluation. Dictated by Shefali Chew M.D. (Resident). Dr. SAMPSON Brower MD have personally reviewed and interpreted thisexamination/study. This report was electronically signed by SAMPSON GRECO MD on07/24/2017 5:17 PM . Nas Coffman MD CT ORDERABLES * XR WRIST RIGHT 3VW OR MORE (07/24/2017 6:11 AM MANAGER WOUND CARE) Anatomical Region Laterality Modality Wrist / Hand Other Impressions 07/26/2017 3:03 PM MANAGER WOUND CARE Impression: No acute osseous injury. Mild dorsal soft tissue swelling. This report has been dictated by Sandor Connolly M.D. (Resident). Dr. EDGARD Brower MD have personally reviewed and interpreted this examination/study. This report was electronically signed by EDGARD PEREZ MD ??on 07/26/2017 3:03 PM . Narrative 07/26/2017 3:03 PM MANAGER WOUND CARE Exam: ??PX WRIST RIGHT 3+ VW. Date: 07/24/2017 6:12 AM. History: Pain. Comparison: No prior is available for comparison. Findings: No acute fracture or dislocation is identified. The joint spaces are preserved. Bone density and texture are normal. There is mild dorsal soft tissue swelling at the wrist. Procedure Note Edgard Perez MD - 11/30/2017 Exam: PX WRIST RIGHT 3+ VW. Date: 07/24/2017 6:12 AM. History: Pain. Comparison: No prior is available for comparison. Findings: No acute fracture or dislocation is identified. The joint spaces arepreserved. Bone density and texture are normal. There is mild dorsal softtissue swelling at the wrist. IMPRESSION Impression: No acute osseous injury. Mild dorsal soft tissue swelling. This report has been dictated by Sandor Connolly M.D. (Resident). I, Dr. EDGARD PEREZ MD have personally reviewed and interpreted thisexamination/study. This report was electronically signed by EDGARD PEREZ MD on 07/26/20173:03 PM . Nas Coffman MD DIAGNOSTIC IMAGING O RDERABLES * KATHY STAINING PATTERNS REFLEXED (07/24/2017 5:57 AM MANAGER WOUND CARE) Only the most recent of3 resultswithin the time period is included. Speckled Pattern 1:80 [facility] Midbody Pattern 1:80 [facility] Note Comment [facility] Blood specimen (specimen) BLOOD SPECIMEN / Unknown 07/24/2017 5:57 AM MANAGER WOUND CARE 07/24/2017 6:06 AM MANAGER WOUND CARE Narrative [facility] - 07/25/2017 1:11 PM MANAGER WOUND CARE A positive JENNIFER result may occur in healthy individuals (low titer) or be associated with a variety of diseases. ??See interpretation chart which is not all inclusive: Pattern ?Antigen Detected ??Suggested Disease Association ? Homogeneous ??DNA(ds,ss), ? SLE - High titers ? Nucleosomes, ? Histones ?Drug-induced SLE ? Speckled ? Sm, CABLE TELEVISION INSTALLER, SCL-70, ??SLE,MCTD,PSS (diffuse form), ? SS-A/SS-B ? Sjogrens ? Nucleolar ?SCL-70, PM-1/SCL ??High titers Scleroderma, ? PM/DM ? Centromere ?? Centromere ?PSS (limited form) w/Crest ? syndrome variable ? Nuclear Dot ??[id number] ??Primary Biliary Cirrhosis ? Nuclear ?GP210, ?Primary Biliary Cirrhosis Membrane ? stone A,B,C ? Nas Coffman MD LAB - PATHOLOGY/CYTO LOGY ORDERABLES [facility] [address] [place] [id number] * XR ELBOW RIGHT 2VW (07/20/2017 12:24 PM MANAGER WOUND CARE) Anatomical Region Laterality Modality Upper Extremity Other Impressions 07/28/2017 6:02 PM MANAGER WOUND CARE IMPRESSION: No acute fracture or dislocation identified. Dictated by iNcole Thomas MD (residential sales). IDr. EDGARD MD have personally reviewed and interpreted this examination/study. This report was electronically signed by EDGARD PEREZ MD ??on 07/28/2017 6:02 PM . Narrative 07/28/2017 6:02 PM MANAGER WOUND CARE EXAMINATION: PX ELBOW RIGHT 2 VW HISTORY: f/u R effusion COMPARISON: No prior study is available for comparison. FINDINGS: The osseous structures are intact and well aligned without acute fracture or dislocation. The joint spaces are preserved. No joint effusion is seen. Bone density and texture are normal. No soft tissue swelling is present. Procedure Note Edgard Perez MD - 11/30/2017 EXAMINATION: PX ELBOW RIGHT 2 VW HISTORY: f/u R effusion COMPARISON: No prior study is available for comparison. FINDINGS: The osseous structures are intact and well aligned without acute fractureor dislocation. The joint spaces are preserved. No joint effusion is seen.Bone density and texture are normal. No soft tissue swelling is present. IMPRESSION IMPRESSION: No acute fracture or dislocation identified. Dictated by Nicole Thomas MD (residential sales). Dr. EDGARD Brower MD have personally reviewed and interpreted thisexamination/study. This report was electronically signed by EDGARD PEREZ MD on 07/28/20176:02 PM . Clare Reyna MD DIAGNOSTIC IMAGING O RDERABLES * PATHOLOGY TISSUE (01/01/2017 4:18 PM CDT) Only the most recent of3 resultswithin the time period is included. Pathologist [facility] Tissue ACCESSION No: [id number] CLINICAL HISTORY: Abdominal pain. FINAL DIAGNOSIS: DUODENUM, BIOPSY (A): - ??NO PATHOLOGIC DIAGNOSIS STOMACH, ANTRUM, BIOPSY (B): - ??ANTRAL MUCOSA, REACTIVE/CHEMICAL GASTROPATHY STOMACH, FUNDUS, BIOPSY (C): - ??OXYNTIC MUCOSA, REACTIVE/CHEMICAL GASTROPATHY WITH CRYSTALLINE PILL DEBRIS COLON, RANDOM, BIOPSY (D): - ??NO PATHOLOGIC DIAGNOSIS GROSS DESCRIPTION: The specimen is received in four containers fixed in formalin for gross and microscopic examination. ??Each container is labeled with the patient's name, Chela Mcnulty. Specimen A, duodenal erythema biopsy , consists of multiple soft, yellow-harrison tissue fragments ranging in greatest dimension from 0.2 to 0.5 cm, with an aggregate measurement of 0.8 x 0.6 x 0.1 cm. ??The specimen is submitted in toto as cassette A1. Specimen B, antral erythema , consists of two soft, yellow-harrison tissue fragments measuring 0.4 and 0.5 cm in greatest dimension. ??The specimen is submitted in toto as cassette B1. Specimen C, fundic erythema , consists of three soft, yellow-harrison tissue fragments measuring 0.1, 0.3 and 0.4 cm in greatest dimension. ??The specimen is submitted in toto as cassette C1. Specimen D, random colon biopsy , consists of three soft, yellow-harrison tissue fragments measuring 0.3, 0.4 and 0.4 cm in greatest dimension. ??The specimen is submitted in toto as cassette D1. for PF/edk MICROSCOPIC DESCRIPTION: ?No Helicobacter are seen on the H and E stain in the antral (B) and fundic (C) specimens. 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 Some of these tests were developed by our own laboratory and have not been cleared or approved by the US Food and Drug Administration.?The FDA does not require this test to go through premarket FDA review.?These tests are used for clinical purposes. They should not be regarded as investigational or for research.?? This laboratory is certified under the Clinical Laboratory Improvement Amendments (CLIA) as qualified to perform high complexity clinical laboratory testing. This case has been personally reviewed and interpreted by the attending (teaching) pathologist. Final Diagnosis performed by Bárbara Godwin MD. Electronically signed 01/04/2017 [facility] [facility] ([facility]) Other (qualifier value) 01/01/2017 4:18 PM CDT 01/01/2017 5:11 PM CDT Narrative [facility] ([facility]) - 01/04/2017 8:05 PM CDT Abd pain Collection Date->01/01/17 Specimen A->Duodenum erythema Specimen B->Stomach antral erosions/erythema Specimen C->Stomach fundic erythema Specimen D->Colon random M Brenda Delgado MD LAB - PATHOLOGY/CYTO LOGY ORDERABLES [facility] ([facility]) * JENNIFER W/REFLEX IFA PATTERN (12/27/2015 5:08 PM CDT) Only the most recent of2 resultswithin the time period is included. JENNIFER None Detected None Detected [facility] Blood specimen (specimen) BLOOD SPECIMEN / Unknown 12/27/2015 5:08 PM CDT 12/27/2015 6:07 PM CDT Citlaly Bailey MABRY LAB - SEROLOGY ORDER SUSANNE [address] [phone] * (ABNORMAL) COMPLEMENT TOTAL (12/27/2015 5:08 PM CDT) Only the most recent of2 resultswithin the time period is included. Complement Total CH50 >60(H) 42 - 60 U/mL [facility] ([facility]) Blood specimen (specimen) BLOOD SPECIMEN / Unknown 12/27/2015 5:08 PM CDT 12/27/2015 6:07 PM CDT Narrative [facility] ([facility]) - 12/29/2015 3:21 PM CDT Performed at: ??01 - [facility] [address], [place], [place] ??[id number] [employer]ire Wrapper: Shady Kent PhD, Phone: ??[phone] Citlaly Avalos MD LAB - CHEMISTRY [place] [facility] ([facility]) * IGM BLOOD (12/27/2015 5:08 PM CDT) Only the most recent of3 resultswithin the time period is included. IgM 105 22 - 293 mg/dL [facility] Blood specimen (specimen) BLOOD SPECIMEN / Unknown 12/27/2015 5:08 PM CDT 12/27/2015 6:07 PM CDT Citlaly Avalos MD LAB - CHEMISTRY [place] Performing Organization Address City/[facility]/ZIP Co de Phone Number [address] [phone] * (ABNORMAL) IGG BLOOD (12/27/2015 5:08 PM CDT) Only the most recent of3 resultswithin the time period is included. IgG 1,943(H) 540 - 1,822 mg/dL [facility] Blood specimen (specimen) BLOOD SPECIMEN / Unknown 12/27/2015 5:08 PM CDT 12/27/2015 6:07 PM CDT Citlaly Avalos MD LAB - CHEMISTRY [place] Performing Organization Address City/[facility]/ZIP Co de Phone Number [address] [phone] * IGA BLOOD (12/27/2015 5:08 PM CDT) Only the most recent of3 resultswithin the time period is included. IgA 167 87 - 534 mg/dL [facility] Blood specimen (specimen) BLOOD SPECIMEN / Unknown 12/27/2015 5:08 PM CDT 12/27/2015 6:07 PM CDT Citlaly Avalos MD LAB - CHEMISTRY [place] Performing Organization Address City/[facility]/ZIP Co de Phone Number [address] [phone] * HEPATITIS C ANTIBODY (12/27/2015 5:08 PM CDT) [facility] Hepatitis C Antibody Non-react nieves Non-reac tive [facility] Comment: Hepatitis C Antibody screen indicates no [...] Avalos MD LAB - CHEMISTRY [place] Performing Organization Address [facility] Co de Phone Number [address] [phone] * IMMUNOFIXATION (08/23/2015 4:28 PM MANAGER WOUND CARE) [facility] Immunofixation Serum Normal Pattern Normal Pattern [facility] Comment: Serum immunofixation electrophoresis shows polyclonal IgG, IgA, and IgM immunoglobulins. No monoclonal immunoglobulins detected. ??Non-secretory myeloma (NSM) cannot be excluded on the basis of this result. ??Measurements of serum free kappa and lambda immunoglobulin light chains can identify up to 70% of patients with NSM. Jese Kessler, PhD *The electrophoresis pattern and the interpretation have been reviewed and verified by the teaching physician. Blood specimen (specimen) BLOOD SPECIMEN / Unknown 08/23/2015 4:28 PM MANAGER WOUND CARE 08/23/2015 5:16 PM MANAGER WOUND CARE Citlaly Avalos MD LAB - CHEMISTRY [place] Performing Organization Address [facility] Co de Phone Number [place] [id number], [place] [phone] * TISSUE TRANSGLUTAMINASE AB IGG (08/23/2015 4:28 PM MANAGER WOUND CARE) TTG Antibody IgG 5 0 - 5 U/mL [facility] ([place]) Comment: ?Negative ?0 - 5 ?Weak Positive ?? 6 - 9 ?Positive ? >9 Blood specimen (specimen) BLOOD SPECIMEN / Unknown 08/23/2015 4:28 PM MANAGER WOUND CARE 08/23/2015 5:16 PM MANAGER WOUND CARE Narrative [facility] ([facility]) - 08/25/2015 1:17 PM MANAGER WOUND CARE Performed at: ??01 - [facility] [address], [place], [place] ??[id number] [employer] Wrapper: Shady Kent PhD, Phone: ??[phone] Citlaly Bailey MABRY LAB - CHEMISTRY [place] [facility] ([place]) * TISSUE TRANSGLUTAMINASE AB IGA (08/23/2015 4:28 PM MANAGER WOUND CARE) TTG Antibody IgA <2 0 - 3 U/mL [facility] ([place]) Comment: ?Negative ?0 - ??3 ?Weak Positive ?? 4 - 10 ?Positive ? >10 Tissue Transglutaminase (tTG) has been identified as the endomysial antigen. ??Studies have demonstr- ated that endomysial IgA antibodies have over 99% specificity for gluten sensitive enteropathy. Blood specimen (specimen) BLOOD SPECIMEN / Unknown 08/23/2015 4:28 PM MANAGER WOUND CARE 08/23/2015 5:15 PM MANAGER WOUND CARE Narrative [facility] ([employer]) - 08/25/2015 1:17 PM MANAGER WOUND CARE Performed at: ??01 - [address] ??[id number] [employer] Wrapper: Shady Kent PhD, Phone: ??[phone] Citlaly Avalos MD LAB - SEROLOGY ORDER SUSANNE Performing Organization Address [facility] Co de Phone Number [facility] [facility] ([facility] * THYROID PEROXIDASE ANTIBODY (08/23/2015 4:28 PM MANAGER WOUND CARE) Thyroid Peroxidase TPO Antibody 12 0 - 34 IU/mL [facility] ([facility] Blood specimen (specimen) BLOOD SPECIMEN / Unknown 08/23/2015 4:28 PM MANAGER WOUND CARE 08/23/2015 5:15 PM MANAGER WOUND CARE Narrative [facility] ([facility]) - 08/25/2015 6:17 AM MANAGER WOUND CARE Performed at: ??01 - [address] ??[id number] [employer] Wrapper: Shady Kent PhD, Phone: ??[phone] Citlaly Avalos MD LAB - CHEMISTRY [place] Performing Organization Address City/[facility]/ZIP Co de Phone Number [facility] [facility] ([facility] * THYROGLOBULIN ANTIBODY (08/23/2015 4:28 PM MANAGER WOUND CARE) Thyroglobulin Antibody <1.0 0.0 - 0.9 IU/mL [facility] [facility] ([facility]) Comment:Thyroglobulin Antibo dy measured by Sheryl [facility] [employer] Blood specimen (specimen) BLOOD SPECIMEN / Unknown 08/23/2015 4:28 PM MANAGER WOUND CARE 08/23/2015 5:15 PM MANAGER WOUND CARE Narrative [facility] ([place]) - 08/25/2015 1:17 PM MANAGER WOUND CARE Performed at: ??01 - [facility] [address] ??[id number] [employer] Wrapper: Shady Kent PhD, Phone: ??[phone] Citlaly Avalos MD LAB - CHEMISTRY [place] Performing Organization Address City/[facility]/ZIP Co de Phone Number [facility] ([place]) * T4 FREE (08/23/2015 4:28 PM MANAGER WOUND CARE) [facility] T4 Free 0.9 0.7 - 1.5 ng/dL [facility] Blood specimen (specimen) BLOOD SPECIMEN / Unknown 08/23/2015 4:28 PM MANAGER WOUND CARE 08/23/2015 5:15 PM MANAGER WOUND CARE Citlaly Avalos MD LAB - CHEMISTRY [place] Performing Organization Address [facility] Co de Phone Number [address] [phone] * AURELIANO VIPER VENOM DILUTE (04/05/2015 1:31 PM CDT) [facility] APTT 26.3 23.0 - 38.4 Seconds [facility] PT 12.4 12.1 - 14.8 Seconds [facility] LA-DRVVT Screen 1.0 <1.2 [facility] Interpretation Dilute RVV Negative Negative [facility] Blood specimen (specimen) BLOOD SPECIMEN / Unknown 04/05/2015 1:31 PM CDT 04/05/2015 1:55 PM CDT Citlaly Avalos MD LAB - COAGULATION OR DERABLES Performing Organization Address [facility] Co de Phone Number [address] [phone] * CYCLIC CITRUL PEPTIDE AB IGG (CCP) (04/05/2015 1:31 PM CDT) [facility] Antibody IgG 2.7 <5.0 U/mL [facility] Blood specimen (specimen) BLOOD SPECIMEN / Unknown 04/05/2015 1:31 PM CDT 04/05/2015 1:55 PM CDT Citlaly Bailey MABRY LAB - CHEMISTRY [place] [facility] [address] [place] [address] * DRUG ABUSE PANEL 10-20+ETHANOL URINE NO CONFIRM (07/24/2014 8:06 PM MANAGER WOUND CARE) Amphetamines Screen Urine Negative Negative: < 1000 ng/mL [facility] Barbiturates Screen Urine Negative Negative: < 200 ng/mL [facility] Benzodiazepine Screen Urine Negative Negative: < 200 ng/mL [facility] Opiates Urine Negative Negative: < 300 ng/mL [facility] Cocaine Metabolites Urine Negative Negative: < 300 ng/mL [facility] Phencyclidine Screen Urine Negative Negative: < 25 ng/ml [facility] Cannabinoids Screen Urine Negative Negative: <50 ng/mL [facility] Methadone Screen Urine Negative Negative: < 300 ng/mL [facility] Urine specimen (specimen) URINE / Unknown 07/24/2014 8:06 PM MANAGER WOUND CARE 07/24/2014 8:23 PM MANAGER WOUND CARE Narrative [facility] - 07/24/2014 8:33 PM MANAGER WOUND CARE The Urine Toxicology Screening Panel does not screen for Propoxyphene, Meprobamate, Carisoprodol, Trazodone, gnis-xun-tmvwwpo medications and/or volatiles (Acetone, Isopropanol, Methanol or Ethylene Glycol). Ethanol, Salicylate, Acetaminophen, Tricyclic Antidepressants and several therapeutic drugs may be individually assayed in serum or plasma specimen. Toxicology testing by the [facility] is an aid to medical diagnosis and treatment of patients. No documented chain of custody was maintained. Results are intended to be used for clinical purposes only. ? Scott Arnold MD LAB - URINE CHEMISTR Y ORDERABLES Performing Organization Address [facility] Co de Phone Number [address] [phone] * TROPONIN I (07/24/2014 6:06 PM MANAGER WOUND CARE) Pathologist [facility] Troponin I <0.032 <0.032 ng/mL [facility] Blood specimen (specimen) BLOOD SPECIMEN / Unknown 07/24/2014 6:06 PM MANAGER WOUND CARE 07/24/2014 6:24 PM MANAGER WOUND CARE Scott Arnold MD LAB - CHEMISTRY [place] Performing Organization Address [facility] de Phone Number [address] [phone] * ALCOHOL ETHYL BLOOD (07/24/2014 6:06 PM MANAGER WOUND CARE) Pathologist [facility] Interpretation Ethanol None Detected None Detected mg/dL [facility] Comment:Ethanol levels less than 10 mg/dL are resulted as None detected . Blood specimen (specimen) BLOOD SPECIMEN / Unknown 07/24/2014 6:06 PM MANAGER WOUND CARE 07/24/2014 6:24 PM MANAGER WOUND CARE Scott Arnold MD LAB - CHEMISTRY [place] Performing Organization Address [facility] de Phone Number [address] [phone] * CT HEAD WO CONTRAST (07/24/2014 5:44 PM MANAGER WOUND CARE) Anatomical Region Laterality Modality Head Other Impressions 07/24/2014 5:58 PM MANAGER WOUND CARE IMPRESSION: 1. No acute intracranial process. These results were discussed with the emergency room physician caring for the patient by Dr. Barragan on 07/24/1140 5:54 PM. This report was electronically signed by ABEL BARRAGAN M.D. ??on 07/24/2014 5:58 PM . Narrative 07/24/2014 5:58 PM MANAGER WOUND CARE EXAMINATION: Computed tomography (CT) of the head without contrast HISTORY: Headache. TECHNIQUE: CT of the head was performed without contrast according to standard protocol. FINDINGS: No prior study is available for comparison. No acute intra- or extra-axial fluid collections are identified. The ventricles are of normal size, shape, and morphology. The basal cisterns are patent. No mass effect or midline shift is seen. The aguilera-white matter differentiation is normal. The visualized portions of the orbits, paranasal sinuses, and mastoids appear normal. No acute fracture is identified. Procedure Note Abel Barragan MD - 12/01/2017 EXAMINATION: Computed tomography (CT) of the head without contrast HISTORY: Headache. TECHNIQUE: CT of the head was performed without contrast according tostandard protocol. FINDINGS: No prior study is available for comparison. No acute intra- or extra-axial fluid collections are identified. Theventricles are of normal size, shape, and morphology. The basal cisternsare patent. No mass effect or midline shift is seen. The aguilera-white matterdifferentiation is normal. The visualized portions of the orbits, paranasal sinuses, and mastoids appearnormal. No acute fracture is identified. IMPRESSION IMPRESSION: 1. No acute intracranial process. These results were discussed with the emergency room physician caring forthe patient by Dr. Barragan on 07/24/1140 5:54 PM. This report was electronically signed by ABEL BARRAGAN M.D. on 07/24/20145:58 PM . Scott Arnold MD CT ORDERABLES * MRI PELVIS WWO CONTRAST (03/17/2013 10:23 AM CDT) Anatomical Region Laterality Modality Pelvis Other Impressions 03/20/2013 11:27 AM CDT IMPRESSION: 1. No evidence of abdominal or pelvic mass as clinically queried. Bilateral ovaries with cysts are visible. Given the history that a right pelvic mass was seen on outside Hospital CT, Comparison with the outside CT would be helpful. Findings were discussed with Dr. Brenda Delgado of Gastroenterology on 03/17/2013 at 1500 hrs. This report was approved ??by Doug Moya M.D. ?? on 03/17/2013 4:08 PM . I, Dr. LINDA GUADARRAMA M.D. have personally reviewed and interpreted this examination/study. This report was electronically signed by LINDA GUADARRAMA M.D. ??on 03/20/2013 11:27 AM . Narrative 03/20/2013 11:27 AM CDT EXAMINATION: 1. MRI abdomen without and with contrast 2. MRI pelvis without and with contrast HISTORY: ??43-year-old female with possible right pelvic mass seen on CT at an outside hospital TECHNIQUE: MRI of the abdomen and pelvis was performed prior to and following the uneventful administration of 20 ml Magnevist intravenous contrast according to a standard protocol. FINDINGS: The lung bases are clear. The liver is normal. The intrahepatic and extrahepatic bile ducts are not dilated. No arterial enhancing focal intrahepatic lesion is identified. The portal vein and branches are patent. The gallbladder is absent. The pancreas is normal without evidence of peripancreatic fluid. The spleen and adrenal glands are normal. The kidneys are normal in size, shape, position, contour. The bowel loops are normal. The vascular structures are normal. The uterus is surgically absent. The bilateral ovaries are normal in size. Bilateral cysts are seen in the ovaries, measuring up to 1 cm on the left and 1.4 cm on the right. There is a small amount of free pelvic fluid, likely physiologic. No mass is seen in the pelvis as clinically queried. Procedure Note Linda Guadarrama MD - 12/02/2017 EXAMINATION: 1. MRI abdomen without and with contrast 2. MRI pelvis without and with contrast HISTORY: 43-year-old female with possible right pelvic mass seen on CT atan outside hospital TECHNIQUE: MRI of the abdomen and pelvis was performed prior to andfollowing the uneventful administration of 20 ml Magnevist intravenouscontrast according to a standard protocol. FINDINGS: The lung bases are clear. The liver is normal. The intrahepatic and extrahepatic bile ducts are notdilated. No arterial enhancing focal intrahepatic lesion is identified.The portal vein and branches are patent. The gallbladder is absent. Thepancreas is normal without evidence of peripancreatic fluid. The spleen and adrenal glands are normal. Thekidneys are normal in size, shape, position, contour. The bowel loops arenormal. The vascular structures are normal. The uterus is surgically absent. The bilateral ovaries are normal in size.Bilateral cysts are seen in the ovaries, measuring up to 1 cm on the leftand 1.4 cm on the right. There is a small amount of free pelvic fluid,likely physiologic. No mass is seen in the pelvis as clinically queried. IMPRESSION IMPRESSION: 1. No evidence of abdominal or pelvic mass as clinically queried.Bilateral ovaries with cysts are visible. Given the history that a rightpelvic mass was seen on outside Hospital CT, Comparison with the outsideCT would be helpful. Findings were discussed with Dr. Brenda Delgado of Gastroenterology on03/17/2013 at 1500 hrs. This report was approved by Doug Moya M.D. on 03/17/2013 4:08 PM . I, Dr. LINDA GUADARRAMA M.D. have personally reviewed and interpreted thisexamination/study. This report was electronically signed by LINDA GUADARRAMA M.D. on 03/20/201311:27 AM . Cory Delgado MD MR ORDERABLES * MRI ABDOMEN WWO CONTRAST (03/17/2013 10:08 AM CDT) Anatomical Region Laterality Modality Abdomen Other Impressions 03/20/2013 11:27 AM CDT IMPRESSION: 1. No evidence of abdominal or pelvic mass as clinically queried. Bilateral ovaries with cysts are visible. Given the history that a right pelvic mass was seen on outside Hospital CT, Comparison with the outside CT would be helpful. Findings were discussed with Dr. Brenda Delgado of Gastroenterology on 03/17/2013 at 1500 hrs. This report was approved ??by Doug Moya M.D. ?? on 03/17/2013 4:08 PM . I, Dr. LINDA GUADARRAMA M.D. have personally reviewed and interpreted this examination/study. This report was electronically signed by LINDA GUADARRAMA M.D. ??on 03/20/2013 11:27 AM . Narrative 03/20/2013 11:27 AM CDT EXAMINATION: 1. MRI abdomen without and with contrast 2. MRI pelvis without and with contrast HISTORY: ??43-year-old female with possible right pelvic mass seen on CT at an outside hospital TECHNIQUE: MRI of the abdomen and pelvis was performed prior to and following the uneventful administration of 20 ml Magnevist intravenous contrast according to a standard protocol. FINDINGS: The lung bases are clear. The liver is normal. The intrahepatic and extrahepatic bile ducts are not dilated. No arterial enhancing focal intrahepatic lesion is identified. The portal vein and branches are patent. The gallbladder is absent. The pancreas is normal without evidence of peripancreatic fluid. The spleen and adrenal glands are normal. The kidneys are normal in size, shape, position, contour. The bowel loops are normal. The vascular structures are normal. The uterus is surgically absent. The bilateral ovaries are normal in size. Bilateral cysts are seen in the ovaries, measuring up to 1 cm on the left and 1.4 cm on the right. There is a small amount of free pelvic fluid, likely physiologic. No mass is seen in the pelvis as clinically queried. Procedure Note Linda Guadarrama MD - 12/02/2017 EXAMINATION: 1. MRI abdomen without and with contrast 2. MRI pelvis without and with contrast HISTORY: 43-year-old female with possible right pelvic mass seen on CT atan outside hospital TECHNIQUE: MRI of the abdomen and pelvis was performed prior to andfollowing the uneventful administration of 20 ml Magnevist intravenouscontrast according to a standard protocol. FINDINGS: The lung bases are clear. The liver is normal. The intrahepatic and extrahepatic bile ducts are notdilated. No arterial enhancing focal intrahepatic lesion is identified.The portal vein and branches are patent. The gallbladder is absent. Thepancreas is normal without evidence of peripancreatic fluid. The spleen and adrenal glands are normal. Thekidneys are normal in size, shape, position, contour. The bowel loops arenormal. The vascular structures are normal. The uterus is surgically absent. The bilateral ovaries are normal in size.Bilateral cysts are seen in the ovaries, measuring up to 1 cm on the leftand 1.4 cm on the right. There is a small amount of free pelvic fluid,likely physiologic. No mass is seen in the pelvis as clinically queried. IMPRESSION IMPRESSION: 1. No evidence of abdominal or pelvic mass as clinically queried.Bilateral ovaries with cysts are visible. Given the history that a rightpelvic mass was seen on outside Hospital CT, Comparison with the outsideCT would be helpful. Findings were discussed with Dr. Brenda Delgado of Gastroenterology on03/17/2013 at 1500 hrs. This report was approved by Doug Moya M.D. on 03/17/2013 4:08 PM . I, Dr. LINDA GUADARRAMA M.D. have personally reviewed and interpreted thisexamination/study. This report was electronically signed by LINDA GUADARRAMA M.D. on 03/20/201311:27 AM . Authorizing Provider Result Ranulfo Delgado MD MR ORDERABLES * (ABNORMAL) CREATININE BLOOD - POCT (IP) [facility] (09/03/1998 12:00 AM MANAGER WOUND CARE) Creatinine POCT 1.64(A) 0.3 - 1.3 mg/dL [facility] eGFR POCT 55(A) 60 ml/min [facility] 09/03/1998 Cory Deglado MD LAB - POINT OF CARE ORDERABLES [facility] Care Teams Internal Sales Relationship Specialty Start Date End Date Key Tolliver MD [address] [place] [address] [phone] PCP - General 10/22/18 Pablo Liriano MD [address] [place] [address] [phone] Orthopedic Surgery 05/22/19 Evan Willis MD [address] [place] [address] [phone] Medical Oncologist Medical Oncology 11/02/21 Charles Kingston MD [address] [place] [phone] Structural Analysis Engineer Cardiology 11/03/21
--- OUTSIDE RECORDS SUMMARY | 2024-10-01 01:31 | XMS_ITS ---
Author Organization [facility] Address [address] [place] [address] Phone Care Team Providers Care Blower Insulator Name Role Phone LEILANI MABRY, NILESH Primary Care Provider [phone] Problems Includes: Active, inactive, and resolved Problems All Visits Onset Date Resolved Date Provider Condition S tatus Chronic Pain Syndrome 07/31/2023 HARLEEN COULTER PMHNP Active Last Documented On 3 1:32PM ; [facility] Plan of Treatment Referrals To Diagnosis Pain Management [address] [address] - Radiculopathy, lumbar region Note: consent for bilateral L4-5 transforaminal epidural Last Documented On 9 3:07PM ; [facility] Pain Management [address] [address] - Radiculopathy, lumbar region Note: consent for bilateral L4-5 transforaminal epiduralDr Sami Last Documented On 9 9:01AM ; [facility] Pain Management [address] [address] - Spondylosis w/o myelopathy or radiculopathy, cervical region Note: consent for bilateral C5, C6, C7 medial branch blocks Last Documented On 2 10:14AM ; [facility] Pain Management [facility] - [address] [place] [address] - Spondylosis w/o myelopathy or radiculopathy, lumbar region Note: consent for bilateral L3, L4. L5 medial branch blocks Last Documented On 3 10:10AM ; [facility] Psychiatrist HARLEEN OCULTER PMHNP - [facility] - [address] [place] [address] - Chronic pain syndrome Note: Psychological evaluati on for implantable device therapies (spinal cord stimulation).Diagnosis: chronic pain syndrome, lumbosacral spondylosis with stenosis and neurogenic claudication recalcitrant to conservative care. Last Documented On 4 3:51PM ; [facility] Counselor [facility] [place] - [address] [place] [address] - [facility] syndrome [facility] Last Documented On 4 1:40PM ; [facility] Education and Decision Aids were provided during visit for: Pill Count: 25 HYSINGLA Last Documented On 4 8:54AM ; [facility] Pill Count: two HYSINGLA Last Documented On 4 9:14AM ; [facility] Pill Count: HYDROCODONE ~out of medication Last Documented On 4 9:14AM ; [facility] Pill Count: two HYSINGLA Last Documented On 4 11:00AM ; [facility] Pill Count: HYDROCODONE ~out of medication Last Documented On 4 11:43AM ; [facility] Pill Count: HYDROCODONE ~out of medication Last Documented On 4 9:34AM ; [facility] Pill Count: HYDROCODONE ~out of medication Last Documented On 4 10:37AM ; [facility] Pill Count: HYDROCODONE ~out of medication Last Documented On 4 1:44PM ; [facility] Pill Count: two HYDROCODONE Last Documented On 4 1:15PM ; [facility] Patient education about adve rse reactions to medication Last Documented On 3 10:43AM ; [facility] Reviewed side effects and Ri sks/Benefits analysis Last Documented On 3 10:43AM ; [facility] Pill Count: 19 HYDROCODONE Last Documented On 3 2:06PM ; [facility] Pill Count: 19 HYDROCODONE Last Documented On 3 10:39AM ; [facility] Pill Count: 50 HYDROCODONE Last Documented On 3 10:50AM ; [facility] Pill Count: one HYDROCODONE Last Documented On 3 3:49PM ; [facility] Pill Count: six HYDROCODONE Last Documented On 3 10:14AM ; [facility] Pill Count: 38 HYDROCODONE Last Documented On 3 1:23PM ; [facility] Pill Count: 49 HYDROCODONE Last Documented On 2 10:01AM ; [facility] Pill Count: 62 HYDROCODONE Last Documented On 2 3:28PM ; [facility] Pill Count: 61 HYDROCODONE Last Documented On 2 4:14PM ; [facility] Pill Count: 62 HYDROCODONE Last Documented On 2 4:21PM ; [facility] Pill Count: Patient did not bring pain medication to appointment for pill count, per policy. Advised in order to continue to safely prescribe opioids, medication must be brought to each appointment Last Documented On 2 4:14PM ; [facility] Pill Count: 82 HYDROCODONE Last Documented On 2 3:55PM ; [facility] Pill Count: Patient did not bring pain medication to appointment for pill count, per policy. Advised in order to continue to safely prescribe opioids, medication must be brought to each appointment Last Documented On 2 4:19PM ; [facility] Pill Count: Patient did not bring pain medication to appointment for pill count, per policy. Advised in order to continue to safely prescribe opioids, medication must be brought to each appointment Last Documented On 1 1:41PM ; [facility] Pill Count: five Not Appropr iate Had surgery and did not fill the pain med that was given after suregery Last Documented On 1 1:11PM ; [facility] Pill Count: 21 Appropriate Last Documented On 1 3:19PM ; [facility] Pill Count: 21 Appropriate Last Documented On 1 5:34PM ; [facility] Pill Count: 21 Appropriate Last Documented On 1 5:23PM ; [facility] Pill Count: ten Not Appropri ate ; discussed taking only as prescribed for back pain not myalgia symptoms related to covid Last Documented On 1 3:58PM ; [facility] Pill Count: 0 Last Documented On 0 3:51PM ; [facility] Pill Count: Patient did not bring pain medication to appointment for pill count, per policy. Advised in order to continue to safely prescribe opioids, medication must be brought to each appointment Last Documented On 0 3:02PM ; [facility] Pill Count: two Appropriate Last Documented On 0 7:51AM ; [facility] Pill Count: seven Appropriat e Last Documented On 0 10:51AM ; [facility] Pill Count: three Appropriat e Last Documented On 0 12:30PM ; [facility] Pill Count: seven Appropriat e Last Documented On 9 9:53AM ; [facility] Assessments Includes: Assessments for all patient encounters Findings Encounter Date Chronic pain syndrome TELEHEALTH with FELISHA Hemant العراقي [facility] 02/01/2024 Last Documented On 4 9:17AM ; [facility] Fibromyalgia TELEHEALTH with FELISHA L ARTHUR [facility] 02/01/2024 Last Documented On 4 9:17AM ; [facility] 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 TELEHEALTH wit h FELISHA L ARTHUR [facility] 02/01/2024 Last Documented On 4 9:17AM ; [facility] Lumbar spondylosis with radiculopathy TE LEHEALTH with FELISHA L ARTHUR [facility] 02/01/2024 Last Documented On 4 9:17AM ; [facility] Lumbar stenosis with neuroge michelle claudication TELEHEALTH with FELISHA L ARTHUR [facility] 02/01/2024 Last Documented On 4 9:17AM ; [facility] Sacroiliitis TELEHEALTH with FELISHA L ARTHUR [facility] 02/01/2024 Last Documented On 4 9:17AM ; [facility] Systemic lupus erythematosus TELEHEALTH with NAVARRO MOISES L ARTHUR [facility] 02/01/2024 Last Documented On 4 9:17AM ; [facility] Chronic pain syndrome TELEHEALTH with FELISHA L B DULCE [facility] 12/17/2023 Last Documented On 4 1:18PM ; [facility] Fibromyalgia TELEHEALTH with FELISHA L ARTHUR [facility]P-BC 12/17/2023 Last Documented On 4 1:18PM ; [facility] group home use of opiate analgesic TELEHEALTH wit h FELISHA L ARTHUR ANP-BC 12/17/2023 Last Documented On 4 1:18PM ; [facility] Lumbar spondylosis with radiculopathy TE LEHEALTH with FELISHA L ARTHUR ANP-BC 12/17/2023 Last Documented On 4 1:18PM ; [facility] Lumbar stenosis with neuroge michelle claudication TELEHEALTH with FELISHA L ARTHUR ANP-BC 12/17/2023 Last Documented On 4 1:18PM ; [facility] Sacroiliitis TELEHEALTH with FELISHA L ARTHUR ANP-BC 12/17/2023 Last Documented On 4 1:18PM ; [facility] Systemic lupus erythematosus TELEHEALTH with NAVARRO MOISES L ARTHUR ANP-BC 12/17/2023 Last Documented On 4 1:18PM ; [facility] Chronic pain syndrome TELEHEALTH with FELISHA L B DULCE MAR[facility] ANP-BC 11/30/2023 Last Documented On 4 9:40AM ; [facility] Fibromyalgia TELEHEALTH with FELISHA L ARTHUR ANP-BC 11/30/2023 Last Documented On 4 9:40AM ; [facility] 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 TELEHEALTH wit h FELISHA L ARTHUR ANP-BC 11/30/2023 Last Documented On 4 9:40AM ; [facility] Lumbar spondylosis with radiculopathy TE LEHEALTH with FELISHA L ARTHUR ANP-BC 11/30/2023 Last Documented On 4 9:40AM ; [facility] Lumbar stenosis with neuroge michelle claudication TELEHEALTH with FELISHA L ARTHUR ANP-BC 11/30/2023 Last Documented On 4 9:40AM ; [facility] Sacroiliitis TELEHEALTH with FELISHA L ARTHUR ANP-BC 11/30/2023 Last Documented On 4 9:40AM ; [facility] Systemic lupus erythematosus TELEHEALTH with NAVARRO MOISES L ARTHUR ANP-BC 11/30/2023 Last Documented On 4 9:40AM ; [facility] Chronic pain syndrome PAIN MANAGEMENT FOLLOW UP with MAX SINGLETON MD 11/23/2023 Last Documented On 4 6:28PM ; [facility] Fibromyalgia PAIN MANAGEMENT FOLLOW UP with Akosua SINGLETON MD 11/23/2023 Last Documented On 4 6:28PM ; [facility] 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 PAIN M ANAGEMENT FOLLOW UP with MAX SINGLETON MD 11/23/2023 Last Documented On 4 6:28PM ; [facility] Lumbar spondylosis with radiculopathy PA IN MANAGEMENT FOLLOW UP with MAX SINGLETON MD 11/23/2023 Last Documented On 4 6:28PM ; [facility] Lumbar stenosis with neuroge michelle claudication PAIN MANAGEMENT FOLLOW UP with MAX SINGLETON MD 11/23/2023 Last Documented On 4 6:28PM ; [facility] Sacroiliitis PAIN MANAGEMENT FOLLOW UP with Akosua SINGLETON MD 11/23/2023 Last Documented On 4 6:28PM ; [facility] Systemic lupus erythematosus PAIN MANAGE MENT FOLLOW UP with MAX SINGLETON MD 11/23/2023 Last Documented On 4 6:28PM ; [facility] Chronic pain syndrome PAIN MANAGEMENT FO LLOW UP with FELISHA L ARTHUR ANP-BC 11/07/2023 Last Documented On 4 3:07PM ; [facility] Fibromyalgia PAIN MANAGEMENT FOLLOW UP with T MULU L ARTHUR ANP-BC 11/07/2023 Last Documented On 4 3:07PM ; [facility] group home use of opiate analgesic PAIN M ANAGEMENT FOLLOW UP with FELISHA L ARTHUR ANP-BC 11/07/2023 Last Documented On 4 3:07PM ; [facility] Lumbar spondylosis with radiculopathy PA IN MANAGEMENT FOLLOW UP with FELISHA L ARTHUR ANP-BC 11/07/2023 Last Documented On 4 3:07PM ; [facility] Lumbar stenosis with neuroge michelle claudication PAIN MANAGEMENT FOLLOW UP with FELISHA L ARTHUR ANP-BC 11/07/2023 Last Documented On 4 3:07PM ; [facility] Sacroiliitis PAIN MANAGEMENT FOLLOW UP with T UMLU L ARTHUR ANP-BC 11/07/2023 Last Documented On 4 3:07PM ; [facility] Systemic lupus erythematosus PAIN MANAGE MENT FOLLOW UP with FELISHA L ARTHUR ANP-BC 11/07/2023 Last Documented On 4 3:07PM ; [facility] Chronic pain syndrome PAIN MANAGEMENT FO LLOW UP with FELISHA L ARTHUR ANP-BC 10/08/2023 Last Documented On 4 1:55PM ; [facility] Fibromyalgia PAIN MANAGEMENT FOLLOW UP with T MULU L ARTHUR ANP-BC 10/08/2023 Last Documented On 4 1:55PM ; [facility] 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 PAIN M ANAGEMENT FOLLOW UP with FELISHA L ARTHUR ANP-BC 10/08/2023 Last Documented On 4 1:55PM ; [facility] Lumbar spondylosis with radiculopathy PA IN MANAGEMENT FOLLOW UP with FELISHA L ARTHUR ANP-BC 10/08/2023 Last Documented On 4 1:55PM ; [facility] Lumbar stenosis with neuroge michelle claudication PAIN MANAGEMENT FOLLOW UP with FELISHA L ARTHUR ANP-BC 10/08/2023 Last Documented On 4 1:55PM ; [facility] Sacroiliitis PAIN MANAGEMENT FOLLOW UP with Ally ROTHMAN ANP- 10/08/2023 Last Documented On 4 1:55PM ; [facility] Systemic lupus erythematosus PAIN MANAGE MENT FOLLOW UP with FELISHA ZENGS ANP- 10/08/2023 Last Documented On 4 1:55PM ; [facility] [G89.4 - Chronic pain syndro me] chronic pain syndrome PSYCH NEW PATIENT EXAM 17 YEARS AND OLDER with HARLEEN COULTER PMHNP 07/31/2023 Last Documented On 3 2:52PM ; [facility] Chronic pain syndrome PAIN MANAGEMENT FOLLOW UP with MAX SINGLETON MD 07/12/2023 Last Documented On 3 2:54PM ; [facility] Fibromyalgia PAIN MANAGEMENT FOLLOW UP with Akosua SINGLETON MD 07/12/2023 Last Documented On 3 2:54PM ; [facility] 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 PAIN M ANAGEMENT FOLLOW UP with MAX SINGLETON MD 07/12/2023 Last Documented On 3 2:54PM ; [facility] Lumbar spondylosis with radiculopathy PA IN MANAGEMENT FOLLOW UP with MAX SINGLETON MD 07/12/2023 Last Documented On 3 2:54PM ; [facility] Lumbar stenosis with neuroge michelle claudication PAIN MANAGEMENT FOLLOW UP with MAX SINGLETON MD 07/12/2023 Last Documented On 3 2:54PM ; [facility] Sacroiliitis PAIN MANAGEMENT FOLLOW UP with Akosua SINGLETON MD 07/12/2023 Last Documented On 3 2:54PM ; [facility] Systemic lupus erythematosus PAIN MANAGE MENT FOLLOW UP with MAX SINGLETON MD 07/12/2023 Last Documented On 3 2:54PM ; [facility] Chronic pain syndrome PAIN MANAGEMENT FO LLOW UP with [facility]/2023 Last Documented On 3 11:17AM ; [facility] Fibromyalgia PAIN MANAGEMENT FOLLOW UP with Ally ROTHMAN [facility]- 07/05/2023 Last Documented On 3 11:17AM ; [facility] group home use of opiate analgesic PAIN M ANAGEMENT FOLLOW UP with FELISHA L ARTHUR ANP-BC 07/05/2023 Last Documented On 3 11:17AM ; [facility] Lumbar spondylosis with radiculopathy PA IN MANAGEMENT FOLLOW UP with FELISHA L ARTHUR ANP-BC 07/05/2023 Last Documented On 3 11:17AM ; [facility] Lumbar stenosis with neuroge michelle claudication PAIN MANAGEMENT FOLLOW UP with FELISHA L ARTHUR ANP-BC 07/05/2023 Last Documented On 3 11:17AM ; [facility] Sacroiliitis PAIN MANAGEMENT FOLLOW UP with T MULU L ARTHUR ANP-BC 07/05/2023 Last Documented On 3 11:17AM ; [facility] Systemic lupus erythematosus PAIN MANAGE MENT FOLLOW UP with FELISHA L ARTHUR ANP-BC 07/05/2023 Last Documented On 3 11:17AM ; [facility] Cervical spondylosis without myelopathy or radiculopathy TELEHEALTH with FELISHA L ARTHUR ANP-BC 06/05/2023 Last Documented On 3 12:57PM ; [facility] Chronic pain syndrome TELEHEALTH with FELISHA L B DULCE MARIA ANP-BC 06/05/2023 Last Documented On 3 12:57PM ; [facility] Fibromyalgia TELEHEALTH with FELISHA L ARTHUR ANP-BC 06/05/2023 Last Documented On 3 12:57PM ; [facility] group home use of opiate analgesic TELEHEALTH wit h FELISHA L ARTHUR ANP-BC 06/05/2023 Last Documented On 3 12:57PM ; [facility] Lumbar spondylosis with radiculopathy TE LEHEALTH with FELISHA L ARTHUR ANP-BC 06/05/2023 Last Documented On 3 12:57PM ; [facility] Lumbar stenosis with neuroge michelle claudication TELEHEALTH with FELISHA L ARTHUR ANP-BC 06/05/2023 Last Documented On 3 12:57PM ; [facility] Sacroiliitis TELEHEALTH with FELISHA L ARTHUR ANP-BC 06/05/2023 Last Documented On 3 12:57PM ; [facility] Systemic lupus erythematosus TELEHEALTH with NAVARRO MOISES L ARTHUR ANP-BC 06/05/2023 Last Documented On 3 12:57PM ; [facility] Cervical spondylosis without myelopathy or radiculopathy PAIN MANAGEMENT FOLLOW UP with FELISHA L ARTHUR ANP-BC 03/23/2023 Last Documented On 3 11:03AM ; [facility] Chronic pain syndrome PAIN MANAGEMENT FO LLOW UP with FELISHA L ARTHUR ANP-BC 03/23/2023 Last Documented On 3 11:03AM ; [facility] Fibromyalgia PAIN MANAGEMENT FOLLOW UP with T MULU L ARTHUR ANP-BC 03/23/2023 Last Documented On 3 11:03AM ; [facility] group home use of opiate analgesic PAIN M ANAGEMENT FOLLOW UP with FELISHA L ARTHUR ANP-BC 03/23/2023 Last Documented On 3 11:03AM ; [facility] Lumbar spondylosis with radiculopathy PA IN MANAGEMENT FOLLOW UP with FELISHA L ARTHUR ANP-BC 03/23/2023 Last Documented On 3 11:03AM ; [facility] Lumbar stenosis with neuroge michelle claudication PAIN MANAGEMENT FOLLOW UP with FELISHA L ARTHUR ANP-BC 03/23/2023 Last Documented On 3 11:03AM ; [facility] Sacroiliitis PAIN MANAGEMENT FOLLOW UP with T MULU L ARTHUR ANP-BC 03/23/2023 Last Documented On 3 11:03AM ; [facility] Systemic lupus erythematosus PAIN MANAGE MENT FOLLOW UP with FELISHA L ARTHUR ANP-BC 03/23/2023 Last Documented On 3 11:03AM ; [facility] Cervical spondylosis without myelopathy or radiculopathy PAIN MANAGEMENT FOLLOW UP with FELISHA L ARTHUR ANP-BC 02/05/2023 Last Documented On 3 10:23AM ; [facility] Chronic pain syndrome PAIN MANAGEMENT FO LLOW UP with FELISHA L ARTHUR ANP-BC 02/05/2023 Last Documented On 3 10:23AM ; [facility] Fibromyalgia PAIN MANAGEMENT FOLLOW UP with T MULU L ARTHUR ANP-BC 02/05/2023 Last Documented On 3 10:23AM ; [facility] 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 PAIN M ANAGEMENT FOLLOW UP with FELISHA L ARTHUR ANP-BC 02/05/2023 Last Documented On 3 10:23AM ; [facility] Lumbar spondylosis with radiculopathy PA IN MANAGEMENT FOLLOW UP with FELISHA L ARTHUR ANP-BC 02/05/2023 Last Documented On 3 10:23AM ; [facility] Lumbar stenosis with neuroge michelle claudication PAIN MANAGEMENT FOLLOW UP with FELISHA L ARTHUR ANP-BC 02/05/2023 Last Documented On 3 10:23AM ; [facility] Sacroiliitis PAIN MANAGEMENT FOLLOW UP with T MULU L ARTHUR ANP-BC 02/05/2023 Last Documented On 3 10:23AM ; [facility] Systemic lupus erythematosus PAIN MANAGE MENT FOLLOW UP with FELISHA L ARTHUR ANP-BC 02/05/2023 Last Documented On 3 10:23AM ; [facility] Cervical spondylosis without myelopathy or radiculopathy PAIN MANAGEMENT FOLLOW UP with FELISHA L ARTHUR ANP-BC 11/28/2022 Last Documented On 3 2:12PM ; [facility] Cervicalgia PAIN MANAGEMENT FOLLOW UP with T MULU L ARTHUR ANP-BC 11/28/2022 Last Documented On 3 2:12PM ; [facility] Chronic pain syndrome PAIN MANAGEMENT FO LLOW UP with FELISHA L ARTHUR ANP-BC 11/28/2022 Last Documented On 3 2:12PM ; [facility] Fibromyalgia PAIN MANAGEMENT FOLLOW UP with T MULU L ARTHUR ANP-BC 11/28/2022 Last Documented On 3 2:12PM ; [facility] Localized lumbar osteoarthritis PAIN MAN AGEMENT FOLLOW UP with FELISHA L ARTHUR ANP-BC 11/28/2022 Last Documented On 3 2:12PM ; [facility] 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 PAIN M ANAGEMENT FOLLOW UP with FELISHA L ARTHUR ANP-BC 11/28/2022 Last Documented On 3 2:12PM ; [facility] Lumbosacral spinal stenosis PAIN MANAGEM ENT FOLLOW UP with FELISHA L ARTHUR ANP-BC 11/28/2022 Last Documented On 3 2:12PM ; [facility] Sacroiliitis PAIN MANAGEMENT FOLLOW UP with T MULU L ARTHUR ANP-BC 11/28/2022 Last Documented On 3 2:12PM ; [facility] Systemic lupus erythematosus PAIN MANAGE MENT FOLLOW UP with FELISHA L ARTHUR ANP-BC 11/28/2022 Last Documented On 3 2:12PM ; [facility] Cervical spondylosis without myelopathy or radiculopathy PAIN MANAGEMENT FOLLOW UP with FELISHA L ARTHUR ANP-BC 08/17/2022 Last Documented On 2 10:33AM ; [facility] Cervicalgia PAIN MANAGEMENT FOLLOW UP with T MULU L ARTHRU ANP-BC 08/17/2022 Last Documented On 2 10:33AM ; [facility] Chronic pain syndrome PAIN MANAGEMENT FO LLOW UP with FELISHA L ARTHUR ANP-BC 08/17/2022 Last Documented On 2 10:33AM ; [facility] Fibromyalgia PAIN MANAGEMENT FOLLOW UP with T MULU L ARTHUR ANP-BC 08/17/2022 Last Documented On 2 10:33AM ; [facility] Localized lumbar osteoarthritis PAIN MAN AGEMENT FOLLOW UP with FELISHA L ARTHUR ANP-BC 08/17/2022 Last Documented On 2 10:33AM ; [facility] group home use of opiate analgesic PAIN M ANAGEMENT FOLLOW UP with FELISHA L ARTHUR ANP-BC 08/17/2022 Last Documented On 2 10:33AM ; [facility] Lumbosacral spinal stenosis PAIN MANAGEM ENT FOLLOW UP with FELISHA L ARTHUR ANP-BC 08/17/2022 Last Documented On 2 10:33AM ; [facility] Sacroiliitis PAIN MANAGEMENT FOLLOW UP with T MULU L ARTHUR ANP-BC 08/17/2022 Last Documented On 2 10:33AM ; [facility] Systemic lupus erythematosus PAIN MANAGE MENT FOLLOW UP with FELISHA L ARTHUR ANP-BC 08/17/2022 Last Documented On 2 10:33AM ; [facility] Cervical spondylosis without myelopathy or radiculopathy PAIN MANAGEMENT FOLLOW UP with FELISHA L ARTHUR ANP-BC 05/09/2022 Last Documented On 2 3:54PM ; [facility] Cervicalgia PAIN MANAGEMENT FOLLOW UP with T MULU L ARTHUR ANP-BC 05/09/2022 Last Documented On 2 3:54PM ; [facility] Chronic pain syndrome PAIN MANAGEMENT FO LLOW UP with FELISHA L ARTHUR ANP-BC 05/09/2022 Last Documented On 2 3:54PM ; [facility] Fibromyalgia PAIN MANAGEMENT FOLLOW UP with T MULU L ARTHUR ANP-BC 05/09/2022 Last Documented On 2 3:54PM ; [facility] Localized lumbar osteoarthritis PAIN MAN AGEMENT FOLLOW UP with FELISHA L ARTHUR ANP-BC 05/09/2022 Last Documented On 2 3:54PM ; [facility] group home use of opiate analgesic PAIN M ANAGEMENT FOLLOW UP with FELISHA L ARTHUR ANP-BC 05/09/2022 Last Documented On 2 3:54PM ; [facility] Lumbosacral spinal stenosis PAIN MANAGEM ENT FOLLOW UP with FELISHA L ARTHUR ANP-BC 05/09/2022 Last Documented On 2 3:54PM ; [facility] Sacroiliitis PAIN MANAGEMENT FOLLOW UP with T MULU L ARTHUR ANP-BC 05/09/2022 Last Documented On 2 3:54PM ; [facility] Systemic lupus erythematosus PAIN MANAGE MENT FOLLOW UP with FELISHA L ARTHUR ANP-BC 05/09/2022 Last Documented On 2 3:54PM ; [facility] Cervical spondylosis without myelopathy or radiculopathy PAIN MANAGEMENT FOLLOW UP with FELISHA L ARTHUR ANP-BC 02/09/2022 Last Documented On 2 4:29PM ; [facility] Cervicalgia PAIN MANAGEMENT FOLLOW UP with T MULU L ARTHUR ANP-BC 02/09/2022 Last Documented On 2 4:29PM ; [facility] Chronic pain syndrome PAIN MANAGEMENT FO LLOW UP with FELISHA L ARTHUR ANP-BC 02/09/2022 Last Documented On 2 4:29PM ; [facility] Fibromyalgia PAIN MANAGEMENT FOLLOW UP with T MULU L ARTHUR ANP-BC 02/09/2022 Last Documented On 2 4:29PM ; [facility] Localized lumbar osteoarthritis PAIN MAN AGEMENT FOLLOW UP with FELISHA L ARTHUR ANP-BC 02/09/2022 Last Documented On 2 4:29PM ; [facility] 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 PAIN M ANAGEMENT FOLLOW UP with FELISHA L ARTHUR ANP-BC 02/09/2022 Last Documented On 2 4:29PM ; [facility] Lumbosacral spinal stenosis PAIN MANAGEM ENT FOLLOW UP with FELISHA L ARTHUR ANP-BC 02/09/2022 Last Documented On 2 4:29PM ; [facility] Sacroiliitis PAIN MANAGEMENT FOLLOW UP with T MULU L ARTHUR ANP-BC 02/09/2022 Last Documented On 2 4:29PM ; [facility] Systemic lupus erythematosus PAIN MANAGE MENT FOLLOW UP with FELISHA L ARTHUR ANP-BC 02/09/2022 Last Documented On 2 4:29PM ; [facility] Cervical spondylosis without myelopathy or radiculopathy PAIN MANAGEMENT FOLLOW UP with FELISHA L ARTHUR ANP-BC 11/28/2021 Last Documented On 2 4:53PM ; [facility] Cervicalgia PAIN MANAGEMENT FOLLOW UP with T MULU L ARTHUR ANP-BC 11/28/2021 Last Documented On 2 4:53PM ; [facility] Chronic pain syndrome PAIN MANAGEMENT FO LLOW UP with FELISHA L ARTHUR ANP-BC 11/28/2021 Last Documented On 2 4:53PM ; [facility] Fibromyalgia PAIN MANAGEMENT FOLLOW UP with T MULU L ARTHUR ANP-BC 11/28/2021 Last Documented On 2 4:53PM ; [facility] Localized lumbar osteoarthritis PAIN MAN AGEMENT FOLLOW UP with FELISHA L ARTHUR ANP-BC 11/28/2021 Last Documented On 2 4:53PM ; [facility] 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 PAIN M ANAGEMENT FOLLOW UP with FELISHA L ARTHUR ANP-BC 11/28/2021 Last Documented On 2 4:53PM ; [facility] Lumbosacral spinal stenosis PAIN MANAGEM ENT FOLLOW UP with FELISHA L ARTHUR ANP-BC 11/28/2021 Last Documented On 2 4:53PM ; [facility] Sacroiliitis PAIN MANAGEMENT FOLLOW UP with T MULU L ARTHUR ANP-BC 11/28/2021 Last Documented On 2 4:53PM ; [facility] Systemic lupus erythematosus PAIN MANAGE MENT FOLLOW UP with FELISHA L ARTHUR ANP-BC 11/28/2021 Last Documented On 2 4:53PM ; [facility] Cervical spondylosis without myelopathy or radiculopathy PAIN MANAGEMENT FOLLOW UP with FELISHA L ARTHUR ANP-BC 09/21/2021 Last Documented On 2 8:49AM ; [facility] Cervicalgia PAIN MANAGEMENT FOLLOW UP with T MULU L ARTHUR ANP-BC 09/21/2021 Last Documented On 2 8:49AM ; [facility] Chronic pain syndrome PAIN MANAGEMENT FO LLOW UP with FELISHA L ARTHUR ANP-BC 09/21/2021 Last Documented On 2 8:49AM ; [facility] Fibromyalgia PAIN MANAGEMENT FOLLOW UP with T MULU L ARTHUR ANP-BC 09/21/2021 Last Documented On 2 8:49AM ; [facility] Localized lumbar osteoarthritis PAIN MAN AGEMENT FOLLOW UP with FELISHA L ARTHUR ANP-BC 09/21/2021 Last Documented On 2 8:49AM ; [facility] group home use of opiate analgesic PAIN M ANAGEMENT FOLLOW UP with FELISHA L ARTHUR ANP-BC 09/21/2021 Last Documented On 2 8:49AM ; [facility] Lumbosacral spinal stenosis PAIN MANAGEM ENT FOLLOW UP with FELISHA L ARTHUR ANP-BC 09/21/2021 Last Documented On 2 8:49AM ; [facility] Sacroiliitis PAIN MANAGEMENT FOLLOW UP with T MULU L ARTHUR ANP-BC 09/21/2021 Last Documented On 2 8:49AM ; [facility] Systemic lupus erythematosus PAIN MANAGE MENT FOLLOW UP with FELISHA L ARTHUR ANP-BC 09/21/2021 Last Documented On 2 8:49AM ; [facility] Cervical spondylosis without myelopathy or radiculopathy PAIN MANAGEMENT FOLLOW UP with FELISHA L ARTHUR ANP-BC 06/14/2021 Last Documented On 1 9:23AM ; [facility] Cervicalgia PAIN MANAGEMENT FOLLOW UP with T MULU L ARTHUR ANP-BC 06/14/2021 Last Documented On 1 9:23AM ; [facility] Chronic pain syndrome PAIN MANAGEMENT FO LLOW UP with FELISHA L ARTHUR ANP-BC 06/14/2021 Last Documented On 1 9:23AM ; [facility] Fibromyalgia PAIN MANAGEMENT FOLLOW UP with T MULU L ARTHUR ANP-BC 06/14/2021 Last Documented On 1 9:23AM ; [facility] Localized lumbar osteoarthritis PAIN MAN AGEMENT FOLLOW UP with FELISHA L ARTHUR ANP-BC 06/14/2021 Last Documented On 1 9:23AM ; [facility] group home use of opiate analgesic PAIN M ANAGEMENT FOLLOW UP with FELISHA L ARTHUR ANP-BC 06/14/2021 Last Documented On 1 9:23AM ; [facility] Lumbosacral spinal stenosis PAIN MANAGEM ENT FOLLOW UP with FELISHA L ARTHUR ANP-BC 06/14/2021 Last Documented On 1 9:23AM ; [facility] Sacroiliitis PAIN MANAGEMENT FOLLOW UP with T MULU L ARTHUR ANP-BC 06/14/2021 Last Documented On 1 9:23AM ; [facility] Systemic lupus erythematosus PAIN MANAGE MENT FOLLOW UP with FELISHA L ARTHUR ANP-BC 06/14/2021 Last Documented On 1 9:23AM ; [facility] Cervicalgia PAIN MANAGEMENT FOLLOW UP with T MULU L ARTHUR ANP-BC 04/13/2021 Last Documented On 1 12:19PM ; [facility] Chronic pain syndrome PAIN MANAGEMENT FO LLOW UP with FELISHA L ARTHUR ANP-BC 04/13/2021 Last Documented On 1 12:19PM ; [facility] Fibromyalgia PAIN MANAGEMENT FOLLOW UP with T MULU L ARTHUR ANP-BC 04/13/2021 Last Documented On 1 12:19PM ; [facility] Localized lumbar osteoarthritis PAIN MAN AGEMENT FOLLOW UP with FELISHA L ARTHUR ANP-BC 04/13/2021 Last Documented On 1 12:19PM ; [facility] 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 PAIN M ANAGEMENT FOLLOW UP with FELISHA L ARTHUR ANP-BC 04/13/2021 Last Documented On 1 12:19PM ; [facility] Lumbosacral spinal stenosis PAIN MANAGEM ENT FOLLOW UP with FELISHA L ARTHUR ANP-BC 04/13/2021 Last Documented On 1 12:19PM ; [facility] Sacroiliitis PAIN MANAGEMENT FOLLOW UP with T MULU L ARTHUR ANP-BC 04/13/2021 Last Documented On 1 12:19PM ; [facility] Systemic lupus erythematosus PAIN MANAGE MENT FOLLOW UP with FELISHA L ARTHUR ANP-BC 04/13/2021 Last Documented On 1 12:19PM ; [facility] Cervicalgia PAIN MANAGEMENT FOLLOW UP with T MULU L ARTHUR ANP-BC 2021 Last Documented On 1 4:57PM ; [facility] Chronic pain syndrome PAIN MANAGEMENT FO LLOW UP with FELISHA L ARTHUR ANP-BC 2021 Last Documented On 1 4:57PM ; [facility] Fibromyalgia PAIN MANAGEMENT FOLLOW UP with T MULU L ARTHUR ANP-BC 2021 Last Documented On 1 4:57PM ; [facility] Localized lumbar osteoarthritis PAIN MAN AGEMENT FOLLOW UP with FELISHA L ARTHUR ANP-BC 2021 Last Documented On 1 4:57PM ; [facility] 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 PAIN M ANAGEMENT FOLLOW UP with FELISHA L ARTHUR ANP-BC 2021 Last Documented On 1 4:57PM ; [facility] Lumbosacral spinal stenosis PAIN MANAGEM ENT FOLLOW UP with FELISHA L ARTHUR ANP-BC 2021 Last Documented On 1 4:57PM ; [facility] Sacroiliitis PAIN MANAGEMENT FOLLOW UP with T MULU L ARTHUR ANP-BC 2021 Last Documented On 1 4:57PM ; [facility] Systemic lupus erythematosus PAIN MANAGE MENT FOLLOW UP with FELISHA L ARTHUR ANP-BC 2021 Last Documented On 1 4:57PM ; [facility] Cervicalgia PAIN MANAGEMENT FOLLOW UP with T MULU L ARTHUR ANP-BC 01/04/2021 Last Documented On 1 5:35PM ; [facility] Chronic pain syndrome PAIN MANAGEMENT FO LLOW UP with FELISHA L ARTHUR ANP-BC 01/04/2021 Last Documented On 1 5:35PM ; [facility] Fibromyalgia PAIN MANAGEMENT FOLLOW UP with T MULU L ARTHUR ANP-BC 01/04/2021 Last Documented On 1 5:35PM ; [facility] Localized lumbar osteoarthritis PAIN MAN AGEMENT FOLLOW UP with FELISHA L ARTHUR ANP- 01/04/2021 Last Documented On 1 5:35PM ; [facility] group home use of opiate analgesic PAIN M ANAGEMENT FOLLOW UP with FELISHA L ARTHUR ANP- 01/04/2021 Last Documented On 1 5:35PM ; [facility] Lumbosacral spinal stenosis PAIN MANAGEM ENT FOLLOW UP with FELISHA L ARTHUR ANP- 01/04/2021 Last Documented On 1 5:35PM ; [facility] Sacroiliitis PAIN MANAGEMENT FOLLOW UP with T MULU L ARTHUR ANP- 01/04/2021 Last Documented On 1 5:35PM ; [facility] Systemic lupus erythematosus PAIN MANAGE MENT FOLLOW UP with FELISHA L ARTHUR ANP- 01/04/2021 Last Documented On 1 5:35PM ; [facility] Chronic pain syndrome PAIN MANAGEMENT FO LLOW UP with FELISHA L ARTHUR [facility] 10/07/2020 Last Documented On 1 8:11AM ; [facility] Fibromyalgia PAIN MANAGEMENT FOLLOW UP with T MULU L ARTHUR ANP- 10/07/2020 Last Documented On 1 8:11AM ; [facility] Lumbosacral spinal stenosis PAIN MANAGEM ENT FOLLOW [facility] Last Documented On 1 8:11AM ; [facility] Sacroiliitis PAIN MANAGEMENT FOLLOW UP with T MULU L ARTHUR [facility] 10/07/2020 Last Documented On 1 8:11AM ; [facility] Systemic lupus erythematosus PAIN MANAGE MENT FOLLOW UP with [facility]HA L [facility]2020 Last Documented On 1 8:11AM ; [facility] Chronic pain syndrome TELEHEALTH with FELISHA Hemant العراقي [facility] 09/09/2020 Last Documented On 1 4:00PM ; [facility] Fibromyalgia TELEHEALTH with FELISHA L ARTHUR [facility] 09/09/2020 Last Documented On 1 4:00PM ; [facility] Lumbosacral spinal stenosis TELEHEALTH with TAMM IE L ARTHUR ANP-BC 09/09/2020 Last Documented On 1 4:00PM ; [facility] Sacroiliitis TELEHEALTH with FELISHA L ARTHUR ANP-BC 09/09/2020 Last Documented On 1 4:00PM ; [facility] Systemic lupus erythematosus TELEHEALTH with NAVARRO MOISES L ARTHUR ANP-BC 09/09/2020 Last Documented On 1 4:00PM ; [facility] Chronic pain syndrome PAIN MANAGEMENT FO LLOW UP with FELISHA L ARTHUR ANP-BC 06/10/2020 Last Documented On 0 12:01PM ; [facility] Fibromyalgia PAIN MANAGEMENT FOLLOW UP with T MULU L ARTHUR ANP-BC 06/10/2020 Last Documented On 0 12:01PM ; [facility] Lumbosacral spinal stenosis PAIN MANAGEM ENT FOLLOW UP with FELISHA L ARTHUR ANP-BC 06/10/2020 Last Documented On 0 12:01PM ; [facility] Sacroiliitis PAIN MANAGEMENT FOLLOW UP with T MULU L ARTHUR ANP-BC 06/10/2020 Last Documented On 0 12:01PM ; [facility] Systemic lupus erythematosus PAIN MANAGE MENT FOLLOW UP with FELISHA L ARTHUR ANP-BC 06/10/2020 Last Documented On 0 12:01PM ; [facility] Chronic pain syndrome PAIN MANAGEMENT FO LLOW UP with FELISAH L ARTHUR ANP-BC 05/11/2020 Last Documented On 0 3:30PM ; [facility] Fibromyalgia PAIN MANAGEMENT FOLLOW UP with T MULU L ARTHUR ANP-BC 05/11/2020 Last Documented On 0 3:30PM ; [facility] Lumbosacral spinal stenosis PAIN MANAGEM ENT FOLLOW UP with FELISHA L ARTHUR ANP-BC 05/11/2020 Last Documented On 0 3:30PM ; [facility] Sacroiliitis PAIN MANAGEMENT FOLLOW UP with T MULU L ARTHUR ANP-BC 05/11/2020 Last Documented On 0 3:30PM ; [facility] Systemic lupus erythematosus PAIN MANAGE MENT FOLLOW UP with FELISHA L ARTHUR ANP-BC 05/11/2020 Last Documented On 0 3:30PM ; [facility] Chronic pain syndrome PAIN MANAGEMENT FO LLOW UP with FELISHA L ARTHUR ANP- 02/09/2020 Last Documented On 0 7:52AM ; [facility] Fibromyalgia PAIN MANAGEMENT FOLLOW UP with T MULU L ARTHUR ANP- 02/09/2020 Last Documented On 0 7:52AM ; [facility] Lumbosacral spinal stenosis PAIN MANAGEM ENT FOLLOW UP with FELISHA L ARTHUR ANP- 02/09/2020 Last Documented On 0 7:52AM ; [facility] Sacroiliitis PAIN MANAGEMENT FOLLOW UP with T MULU L ARTHUR ANP- 02/09/2020 Last Documented On 0 7:52AM ; [facility] Systemic lupus erythematosus PAIN MANAGE MENT FOLLOW UP with FELISHA L ARTHUR ANP- 02/09/2020 Last Documented On 0 7:52AM ; [facility] Chronic pain syndrome TELEHEALTH with FELISHA L B DULCE [facility] 01/08/2020 Last Documented On 0 11:01AM ; [facility] Fibromyalgia TELEHEALTH with FELISHA L ARTHUR [facility] 01/08/2020 Last Documented On 0 11:01AM ; [facility] Lumbosacral spinal stenosis TELEHEALTH with TAMM IE L [facility]2020 Last Documented On 0 11:01AM ; [facility] Sacroiliitis TELEHEALTH with FELISHA L [facility]/2020 Last Documented On 0 11:01AM ; [facility] Systemic lupus erythematosus TELEHEALTH with NAVARRO MOISES L ARTHUR [facility]08/2020 Last Documented On 0 11:01AM ; [facility] Chronic pain syndrome PAIN MANAGEMENT FO LLOW UP with FELISHA L [facility]TH[facility]/10/2019 Last Documented On 0 12:34PM ; [facility] Fibromyalgia PAIN MANAGEMENT FOLLOW UP with T MULU L ARTHUR ANP- 10/10/2019 Last Documented On 0 12:34PM ; [facility] Lumbosacral spinal stenosis PAIN MANAGEM ENT FOLLOW UP with FELISHA L [facility]/2019 Last Documented On 0 12:34PM ; [facility] Sacroiliitis PAIN MANAGEMENT FOLLOW UP with T MULU L ARTHUR [facility] 10/10/2019 Last Documented On 0 12:34PM ; [facility] Systemic lupus erythematosus PAIN MANAGE MENT FOLLOW UP with FELISHA L ARTHUR [facility] 10/10/2019 Last Documented On 0 12:34PM ; [facility] Chronic pain syndrome PAIN MANAGEMENT FO LLOW UP with FELISHA L ARTHUR [facility] 08/07/2019 Last Documented On 9 9:54AM ; [facility] Fibromyalgia PAIN MANAGEMENT FOLLOW UP with T MULU L ARTHUR [facility] 08/07/2019 Last Documented On 9 9:54AM ; [facility] Lumbosacral spinal stenosis PAIN MANAGEM ENT FOLLOW UP with FELISHA L ARTHUR [facility] 08/07/2019 Last Documented On 9 9:54AM ; [facility] Sacroiliitis PAIN MANAGEMENT FOLLOW UP with T MULU L ARTHUR [facility] 08/07/2019 Last Documented On 9 9:54AM ; [facility] Systemic lupus erythematosus PAIN MANAGE MENT FOLLOW UP with FELISHA L ARTHUR [facility] 08/07/2019 Last Documented On 9 9:54AM ; [facility] Chronic pain syndrome PAIN MANAGEMENT FO LLOW UP with FELISHA L ARTHUR [facility] 06/30/2019 Last Documented On 9 3:12PM ; [facility] Fibromyalgia PAIN MANAGEMENT FOLLOW UP with T MULU L ARTHUR [facility] 06/30/2019 Last Documented On 9 3:12PM ; [facility] Lumbar radiculopathy PAIN MANAGEMENT FOL LOW UP with FELISHA L ARTHUR ANP-BC 06/30/2019 Last Documented On 9 3:12PM ; [facility] Lumbosacral spinal stenosis PAIN MANAGEM ENT FOLLOW UP with FELISHA L ARTHUR ANP-BC 06/30/2019 Last Documented On 9 3:12PM ; [facility] Myalgia PAIN MANAGEMENT FOLLOW UP with T MULU L ARTHUR ANP-BC 06/30/2019 Last Documented On 9 3:12PM ; [facility] Sacroiliitis PAIN MANAGEMENT FOLLOW UP with T MULU L ARTHUR ANP-BC 06/30/2019 Last Documented On 9 3:12PM ; [facility] Systemic lupus erythematosus PAIN MANAGE MENT FOLLOW UP with FELISHA L ARTHUR ANP-BC 06/30/2019 Last Documented On 9 3:12PM ; [facility] Chronic pain syndrome PAIN MANAGEMENT FO LLOW UP with FELISHA L ARTHUR ANP-BC 04/29/2019 Last Documented On 9 3:17PM ; [facility] Fibromyalgia PAIN MANAGEMENT FOLLOW UP with T MULU L ARTHUR ANP-BC 04/29/2019 Last Documented On 9 3:17PM ; [facility] Lumbar radiculopathy PAIN MANAGEMENT FOL LOW UP with FELISHA L ARTHUR ANP-BC 04/29/2019 Last Documented On 9 3:17PM ; [facility] Lumbosacral spinal stenosis PAIN MANAGEM ENT FOLLOW UP with FELISHA L ARTHUR ANP-BC 04/29/2019 Last Documented On 9 3:17PM ; [facility] Myalgia PAIN MANAGEMENT FOLLOW UP with T MULU L ARTHUR ANP-BC 04/29/2019 Last Documented On 9 3:17PM ; [facility] Sacroiliitis PAIN MANAGEMENT FOLLOW UP with T MULU L ARTHUR ANP-BC 04/29/2019 Last Documented On 9 3:17PM ; [facility] Systemic lupus erythematosus PAIN MANAGE MENT FOLLOW UP with FELISHA L ARTHUR ANP-BC 04/29/2019 Last Documented On 9 3:17PM ; [facility] Chronic pain syndrome PAIN MANAGEMENT FO LLOW UP with FELISHA L ARTHUR ANP-BC 02/05/2019 Last Documented On 9 3:56PM ; [facility] Fibromyalgia PAIN MANAGEMENT FOLLOW UP with T MULU L ARTHUR ANP-BC 02/05/2019 Last Documented On 9 3:56PM ; [facility] Lumbar radiculopathy PAIN MANAGEMENT FOL LOW UP with FELISHA L ARTHUR ANP-BC 02/05/2019 Last Documented On 9 3:56PM ; [facility] Lumbosacral spinal stenosis PAIN MANAGEM ENT FOLLOW UP with FELISHA L ARTHUR ANP-BC 02/05/2019 Last Documented On 9 3:56PM ; [facility] Myalgia PAIN MANAGEMENT FOLLOW UP with T MULU L ARTHUR ANP-BC 02/05/2019 Last Documented On 9 3:56PM ; [facility] Sacroiliitis PAIN MANAGEMENT FOLLOW UP with T MULU L ARTHUR ANP-BC 02/05/2019 Last Documented On 9 3:56PM ; [facility] Systemic lupus erythematosus PAIN MANAGE MENT FOLLOW UP with FELISHA L ARTHUR ANP-BC 02/05/2019 Last Documented On 9 3:56PM ; [facility] Chronic pain syndrome PAIN MANAGEMENT FO LLOW UP with FELISHA L ARTHUR ANP-BC 11/28/2018 Last Documented On 9 3:13PM ; [facility] Fibromyalgia PAIN MANAGEMENT FOLLOW UP with T MULU L ARTHUR ANP-BC 11/28/2018 Last Documented On 9 3:13PM ; [facility] Lumbar radiculopathy PAIN MANAGEMENT FOL LOW UP with FELISHA L ARTHUR ANP-BC 11/28/2018 Last Documented On 9 3:13PM ; [facility] Lumbosacral spinal stenosis PAIN MANAGEM ENT FOLLOW UP with FELISHA L ARTHUR ANP-BC 11/28/2018 Last Documented On 9 3:13PM ; [facility] Myalgia PAIN MANAGEMENT FOLLOW UP with T MULU L ARTHUR ANP-BC 11/28/2018 Last Documented On 9 3:13PM ; [facility] Sacroiliitis PAIN MANAGEMENT FOLLOW UP with T MULU L ARTHUR ANP-BC 11/28/2018 Last Documented On 9 3:13PM ; [facility] Systemic lupus erythematosus PAIN MANAGE MENT FOLLOW UP with FELISHA L ARTHUR ANP-BC 11/28/2018 Last Documented On 9 3:13PM ; [facility] Chronic pain syndrome PAIN MANAGEMENT FO LLOW UP with FELISHA L ARTHUR ANP-BC 10/31/2018 Last Documented On 9 2:44PM ; [facility] Fibromyalgia PAIN MANAGEMENT FOLLOW UP with T MULU L ARTHUR ANP-BC 10/31/2018 Last Documented On 9 2:44PM ; [facility] Lumbar radiculopathy PAIN MANAGEMENT FOL LOW UP with FELISHA L ARTHUR ANP-BC 10/31/2018 Last Documented On 9 2:44PM ; [facility] Lumbosacral spinal stenosis PAIN MANAGEM ENT FOLLOW UP with FELISHA L ARTHUR ANP-BC 10/31/2018 Last Documented On 9 2:44PM ; [facility] Myalgia PAIN MANAGEMENT FOLLOW UP with T MULU L ARTHUR ANP-BC 10/31/2018 Last Documented On 9 2:44PM ; [facility] Sacroiliitis PAIN MANAGEMENT FOLLOW UP with T MULU L ARTHUR ANP-BC 10/31/2018 Last Documented On 9 2:44PM ; [facility] Systemic lupus erythematosus PAIN MANAGE MENT FOLLOW UP with FELISHA L ARTHUR ANP-BC 10/31/2018 Last Documented On 9 2:44PM ; [facility] Chronic pain syndrome PAIN MANAGEMENT NE W CONSULT with FELISHA L ARTHUR ANP-BC 10/03/2018 Last Documented On 9 9:56AM ; [facility] Localized lumbar osteoarthritis PAIN MAN AGEMENT NEW CONSULT with FELISHA L ARTHUR ANP-BC 10/03/2018 Last Documented On 9 9:56AM ; [facility] Lumbosacral spinal stenosis PAIN MANAGEM ENT NEW CONSULT with FELISHA ZENGS [facility] 10/03/2018 Last Documented On 9 9:56AM ; [facility] Myalgia PAIN MANAGEMENT NEW CONSULT with FELISHA BHATVINS [facility] 10/03/2018 Last Documented On 9 9:56AM ; [facility] Sacroiliitis PAIN MANAGEMENT NEW CONSULT with FELISHAMOISES BHATVINS [facility] 10/03/2018 Last Documented On 9 9:56AM ; [facility] Systemic lupus erythematosus PAIN MANAGE MENT NEW CONSULT with FELISHAMOISES BHATVINS [facility] 10/03/2018 Last Documented On 9 9:56AM ; [facility] Instructions Includes: Instructions for all patient encounters Education and Decision Aids were provided during visit for: Pill Count: 25 HYSINGLA Last Documented On 4 8:54AM ; [facility] Pill Count: two HYSINGLA Last Documented On 4 9:14AM ; [facility] Pill Count: HYDROCODONE ~out of medication Last Documented On 4 9:14AM ; [facility] [facility] Pill Count: two HYSINGLA Last Documented On 4 11:00AM ; [facility] Pill Count: HYDROCODONE ~out of medication Last Documented On 4 11:43AM ; [facility] Pill Count: HYDROCODONE ~out of medication Last Documented On 4 9:34AM ; [facility] Pill Count: HYDROCODONE ~out of medication Last Documented On 4 10:37AM ; [facility] Pill Count: HYDROCODONE ~out of medication Last Documented On 4 1:44PM ; [facility] Pill Count: two HYDROCODONE Last Documented On 4 1:15PM ; [facility] Patient education about adve rse reactions to medication Last Documented On 3 10:43AM ; [facility] Reviewed side effects and Ri sks/Benefits analysis Last Documented On 3 10:43AM ; [facility] Pill Count: 19 HYDROCODONE Last Documented On 3 2:06PM ; [facility] Pill Count: 19 HYDROCODONE Last Documented On 3 10:39AM ; [facility] Pill Count: 50 HYDROCODONE Last Documented On 3 10:50AM ; [facility] Pill Count: one HYDROCODONE Last Documented On 3 3:49PM ; [facility] Pill Count: six HYDROCODONE Last Documented On 3 10:14AM ; [facility] Pill Count: 38 HYDROCODONE Last Documented On 3 1:23PM ; [facility] Pill Count: 49 HYDROCODONE Last Documented On 2 10:01AM ; [facility] Pill Count: 62 HYDROCODONE Last Documented On 2 3:28PM ; [facility] Pill Count: 61 HYDROCODONE Last Documented On 2 4:14PM ; [facility] Pill Count: 62 HYDROCODONE Last Documented On 2 4:21PM ; [facility] Pill Count: Patient did not bring pain medication to appointment for pill count, per policy. Advised in order to continue to safely prescribe opioids, medication must be brought to each appointment Last Documented On 2 4:14PM ; [facility] Pill Count: 82 HYDROCODONE Last Documented On 2 3:55PM ; [facility] Pill Count: Patient did not bring pain medication to appointment for pill count, per policy. Advised in order to continue to safely prescribe opioids, medication must be brought to each appointment Last Documented On 2 4:19PM ; [facility] Pill Count: Patient did not bring pain medication to appointment for pill count, per policy. Advised in order to continue to safely prescribe opioids, medication must be brought to each appointment Last Documented On 1 1:41PM ; [facility] Pill Count: five Not Appropr iate Had surgery and did not fill the pain med that was given after suregery Last Documented On 1 1:11PM ; [facility] Pill Count: 21 Appropriate Last Documented On 1 3:19PM ; [facility] Pill Count: 21 Appropriate Last Documented On 1 5:34PM ; [facility] Pill Count: 21 Appropriate Last Documented On 1 5:23PM ; [facility] Pill Count: ten Not Appropri ate ; discussed taking only as prescribed for back pain not myalgia symptoms related to covid Last Documented On 1 3:58PM ; [facility] Pill Count: 0 Last Documented On 0 3:51PM ; [facility] Pill Count: Patient did not bring pain medication to appointment for pill count, per policy. Advised in order to continue to safely prescribe opioids, medication must be brought to each appointment Last Documented On 0 3:02PM ; [facility] Pill Count: two Appropriate Last Documented On 0 7:51AM ; [facility] Pill Count: seven Appropriat e Last Documented On 0 10:51AM ; [facility] Pill Count: three Appropriat e Last Documented On 0 12:30PM ; [facility] Pill Count: seven Appropriat e Last Documented On 9 9:53AM ; [facility] Medical Equipment - Implanted Devices Includes: Current and historical Devices No Medical Equipment Recorded Medications Includes: Current and historical Medications Current Medications (continue as prescribed) Narcan 4 MG/0.1ML Nasal Liquid 01/21/2024 Provider: FELISHA SENIOR Diagnosis: Spinal stenosis, lumbar region with neurogenic claudication as directed Last Documented On 4 2:31PM By FELISHA SENIOR ; [facility] Hysingla ER 20 MG Oral Table t ER 24 Hour Abuse-Deterrent 01/21/2024 Provider: FELISHA SENIOR Diagnosis: Spinal stenosis, lumbar region with neurogenic claudication 1 tablet q 24 hours Last Documented On 4 2:31PM By FELISHA SENIOR ; [facility] oxyCODONE-Acetaminophen 10-325 MG Oral Tablet 01/15/20 Provider: Diagnosis: Last Documented On 02/01/2024 8:52AM By Lilli MAK ; [facility] traZODone HCl 100 MG Oral Tablet 11/02/2023 Provider : Diagnosis: Last Documented On 4 10:13AM By Lilli MAK ; [facility] Cyclobenzaprine HCl 10 MG Oral Tablet 10/29/2023 Pro vider: REFUGIO AMARO MD Diagnosis: Last Documented On 4 10:15AM By Lilli MAK ; [facility] Ketoconazole 2% External Cream 10/29/2023 Provider: REFUGIO AMARO MD Diagnosis: Last Documented On 4 10:15AM By Lilli MAK ; [facility] hydrOXYzine HCl 50 MG Oral Tablet 10/26/2023 Provide r: Diagnosis: Last Documented On 4 10:16AM By Lilli MAK ; [facility] Anastrozole 1 MG Oral Tablet 10/24/2023 Provider: Diagnosis: Last Documented On 4 10:16AM By Lilli MAK ; [facility] FeroSul 325 (65 Fe) MG Oral Tablet 10/24/2023 Provid er: Diagnosis: Last Documented On 4 10:18AM By Lilli MAK ; [facility] Venlafaxine HCl ER 225 MG Oral Tablet Extended R elease 24 Hour 10/23/2023 Provider: Diagnosis: Last Documented On 4 10:18AM By Lilli MAK ; [facility] Pregabalin 200 MG Oral Capsule 10/08/2023 [facility] Diagnosis: Fibromyalgia TAKE 1 CAPSULE BY MOUTH TWICE DAILY Last Documented On 4 1:51PM By FELISHA WU ; [facility] Omeprazole 40 MG Oral Capsule Delayed Release 08/11/20 23 Provider: Diagnosis: Last Documented On 4 10:17AM By Lilli MAK ; [facility] Lisinopril 40 MG Oral Tablet 04/11/2023 Provider: REFUGIO AMARO MD Diagnosis: Last Documented On 3 10:40AM By Lilli MAK ; [facility] Famotidine 20 MG Oral Tablet 01/23/2023 Provider: Diagnosis: Last Documented On 02/05/2023 4:01PM By Lilli MAK ; [facility] ARIPiprazole 2 MG Oral Tablet 01/09/2023 Provider: Diagnosis: Last Documented On 02/05/2023 4:04PM By Lilli MAK ; [facility] busPIRone HCl 15 MG Oral Tablet 09/20/2022 Provider: Diagnosis: Last Documented On 02/05/2023 4:05PM By Lilli MKA ; [facility] NIFEdipine ER 30 MG Oral Tab let Extended Release 24 Hour 05/04/2022 Provider: REFUGIO AMARO MD Diagnosis: Last Documented On 05/09/2022 3:25PM By Lilli MAK ; [facility] Metoprolol Succinate ER 200M G Oral Tablet Extended Release 24 Hour 10/03/2018 Provider: Diagnosis: Last Documented On 9 3:00PM By VENKAT MAK ; [facility] Past Medications on file Hysingla ER 20 MG Oral Tablet ER 24 Hour Abuse-Deterrent 12/17/2023 - 01/18/2024 Provider: FELISHA SENIOR Diagnosis: Spinal stenosis, lumbar region with neurogenic claudication 1 tablet q 24 hours Last Documented On 4 2:27PM By FELISHA SENIOR ; [facility] Hysingla ER 20 MG Oral Tablet ER 24 Hour Abuse-Deterrent 11/14/2023 - 12/17/2023 Provider: FELISHA SENIOR Diagnosis: Spinal stenosis, lumbar region with neurogenic claudication 1 tablet q 24 hours Last Documented On 4 11:11AM By FELISHA SENIOR ; [facility] Aspirin 325 MG Oral Tablet 10/28/2023 - 11/07/2023 Pro vider: Diagnosis: Last Documented On 4 10:36AM By FELISHA SENIOR ; [facility] HYDROcodone-Acetaminophen 5- 325 MG Oral Tablet 10/08/2023 - 11/23/2023 Provider: FELISHA SENIOR Diagnosis: Other spondylosis, lumbar region 1 every 6 hours as needed for severe pain, max 4 /day Last Documented On 4 10:38AM By Yojana Shaw RN ; [facility] HYDROcodone-Acetaminophen 5- 325 MG Oral Tablet 09/06/2023 - 10/08/2023 Provider: FELISHA SENIOR Diagnosis: Other spondylosis, lumbar region 1 every 6 hours as needed for severe pain, max 4 /day Last Documented On 4 1:42PM By FELISHA SENIOR ; [facility] HYDROcodone-Acetaminophen 5- 325 MG Oral Tablet 08/06/2023 - 09/04/2023 Provider: FELISHA SENIOR Diagnosis: Other spondylosis, lumbar region 1 every 6 hours as needed for severe pain, max 4 /day Last Documented On 4 8:13AM By FELISHA SENIOR ; [facility] HYDROcodone-Acetaminophen 5- 325 MG Oral Tablet 07/05/2023 - 08/06/2023 Provider: FELISHA SENIOR Diagnosis: Other spondylosis, lumbar region 1 every 6 hours as needed fo r severe pain, max 4/day11 Last Documented On 3 12:26PM By FELISHA SENIOR ; [facility] Pregabalin 200 MG Oral Capsule 07/05/2023 - 10/08/2023 Provider: FELISHA SENIOR Diagnosis: Fibromyalgia TAKE 1 CAPSULE BY MOUTH TWICE DAILY Last Documented On 4 1:42PM By FELISHA SENIOR ; [facility] Pregabalin 200 MG Oral Capsule 06/11/2023 - 07/05/2023 Provider: NYDIA YUN EMERGENCY MEDICINE MEDICAL DIRECTOR-FPA, CUE WORKER-BC Diagnosis: Fibromyalgia TAKE 1 CAPSULE BY MOUTH TWICE DAILY Last Documented On 3 10:52AM By FELISHA SENIOR ; [facility] HYDROcodone-Acetaminophen 5- 325 MG Oral Tablet 06/04/2023 - 07/05/2023 Provider: FELISHA SENIOR Diagnosis: Other spondylosis, lumbar region 1 every 6 hours as needed for severe pain, max 4 /day Last Documented On 3 10:52AM By FELISHA SENIOR ; [facility] HYDROcodone-Acetaminophen 5- 325 MG Oral Tablet 05/08/2023 - 06/04/2023 Provider: NYDIA YUN EMERGENCY MEDICINE MEDICAL DIRECTOR-FPA, BIRD Diagnosis: Other spondylosis, lumbar region 1 every 6 hours as needed fo r severe pain, max 4/day Last Documented On 3 1:44PM By FELISHA SENIOR ; [facility] HYDROcodone-Acetaminophen 5- 325 MG Oral Tablet 04/05/2023 - 05/08/2023 Provider: FELISHA SENIOR Diagnosis: Other spondylosis, lumbar region 1 every 6 hours as needed for severe pain, max 4 /day Last Documented On 3 12:02PM By NYDIA GARCIAP-BC ; [facility] HYDROcodone-Acetaminophen 5- 325 MG Oral Tablet 03/02/2023 - 04/05/2023 Provider: FELISHA SENIOR Diagnosis: Other spondylosis, lumbar region 1 every 6 hours as needed for severe pain, max 4 /day Last Documented On 3 11:56AM By FELISHA SENIOR ; [facility] HYDROcodone-Acetaminophen 5- 325 MG Oral Tablet 02/05/2023 - 03/01/2023 Provider: FELISHA SENIOR Diagnosis: Other spondylosis, lumbar region 1 every 6 hours as needed for severe pain, max 4 /day Last Documented On 3 12:02PM By FELISHA SENIOR ; [facility] Vitamin D (Ergocalciferol) 1 .25 MG (46431 UT) Oral Capsule 01/20/2023 - 11/07/2023 Provider: Diagnosis: Last Documented On 4 10:13AM By Lilli MAK ; [facility] HYDROcodone-Acetaminophen 5- 325 MG Oral Tablet 01/05/2023 - 02/05/2023 Provider: FELISHA SENIOR Diagnosis: Other spondylosis, lumbar region 1 every 6 hours as needed for severe pain, max 4 /day Last Documented On 3 4:23PM By FELISHA SENIOR ; [facility] HYDROcodone-Acetaminophen 5- 325 MG Oral Tablet 12/05/2022 - 01/05/2023 Provider: FELISHA SENIOR Diagnosis: 1 every 6 hours as needed for severe pain, max 4 /day Last Documented On 3 2:45PM By [facility] ; [facility] Pregabalin 200 MG Oral Capsule 11/28/2022 - 06/11/2023 Provider: FELISHA SENIOR Diagnosis: Fibromyalgia TAKE 1 CAPSULE BY MOUTH TWICE DAILY Last Documented On 3 11:59AM [facility] ; [facility] HYDROcodone-Acetaminophen 5- 325 MG Oral Tablet 11/03/2022 - 12/04/2022 Provider: NYDIA FRANKEL CUE WORKER-BC Diagnosis: 1 every 6 hours as needed for severe pain, max 4 /day Last Documented On 3 8:33AM By [facility] ; [facility] HYDROcodone-Acetaminophen 5- 325 MG Oral Tablet 10/06/2022 - 11/03/2022 Provider: NYDIA FRANKEL CUE WORKER-BC Diagnosis: 1 every 6 hours as needed for severe pain Last Documented On 3 1:24PM By NYDIA YUN [facility] ; [facility] Anastrozole 1 MG Oral Tablet 09/19/2022 - 11/07/2023 Areli mooreder: Diagnosis: Last Documented On 4 10:16AM By Lilli Yung Alexi ; [facility] HYDROcodone-Acetaminophen 5- 325 MG Oral Tablet 09/06/2022 - 10/06/2022 Provider: NYDIA FRANKEL CUE WORKER-BC Diagnosis: 1 every 6 hours as needed for severe pain Last Documented On 3 4:40PM By NYDIA YUN [facility] ; [facility] Pregabalin 200 MG Oral Capsule 08/17/2022 - 11/28/2022 Provider: FELISHA WU Diagnosis: Fibromyalgia TAKE 1 CAPSULE BY MOUTH TWICE DAILY Last Documented On 3 2:12PM By FELISHA SENIOR ; [facility] HYDROcodone-Acetaminophen 5- 325 MG Oral Tablet 07/31/2022 - 09/05/2022 Provider: NYDIA YUN APRN-NORYA, CUE WORKER-BC Diagnosis: 1 every 6 hours as needed Last Documented On 3 2:51PM By NYDIA GARCIAP- ; [facility] HYDROcodone-Acetaminophen 5- 325 MG Oral Tablet 06/29/2022 - 07/31/2022 Provider: FELISHA WUBC Diagnosis: 1 every 6 hours as needed Last Documented On 2 12:48PM By NYDIA YUN [facility] ; [facility] Ketoconazole 2% External Cream 05/30/2022 - 03/23/2023 Provider: REFUGIO AMARO MD Diagnosis: Last Documented On 3 10:47AM By Lilli Yung Alexi ; [facility] HYDROcodone-Acetaminophen 5- 325 MG Oral Tablet 05/24/2022 - 06/28/2022 Provider: FELISHA WUBC Diagnosis: 1 every 6 hours as needed Last Documented On 2 1:39PM By FELISHA HERRERA-BC ; [facility] Pregabalin 200 MG Oral Capsule 05/09/2022 - 08/17/2022 Provider: FELISHA WUBC Diagnosis: Fibromyalgia TAKE 1 CAPSULE BY MOUTH TWICE DAILY Last Documented On 2 10:30AM By FELISHA WUBC ; [facility] HYDROcodone-Acetaminophen 5- 325 MG Oral Tablet 04/24/2022 - 05/24/2022 Provider: FELISHA WUBC Diagnosis: 1 every 6 hours as needed Last Documented On 2 3:42PM By FELISHA WUBC ; [facility] HYDROcodone-Acetaminophen 5- 325 MG Oral Tablet 03/20/2022 - 04/24/2022 Provider: FELISHA WUBC Diagnosis: 1 every 6 hours as needed Last Documented On 2 5:32PM By FELISHA WUBC ; [facility] HYDROcodone-Acetaminophen 5- 325 MG Oral Tablet 02/16/2022 - 03/20/2022 Provider: NYDIA G JAMA EMERGENCY MEDICINE MEDICAL DIRECTOR-FPA, CUE WORKER-BC Diagnosis: 1 every 6 hours as needed Last Documented On 2 4:51PM By FELISHA WUBC ; [facility] HYDROcodone-Acetaminophen 5- 325 MG Oral Tablet 01/09/2022 - 02/16/2022 Provider: FELISHA WUBC Diagnosis: 1 every 6 hours as needed Last Documented On 2 10:58AM By NYDIA YUN CUE WORKER-BC ; [facility] HYDROcodone-Acetaminophen 5- 325 MG Oral Tablet 12/09/2021 - 01/06/2022 Provider: FELISHA WUBC Diagnosis: 1 every 6 hours as needed Last Documented On 2 8:16AM By FELISHA HERRERA-BC ; [facility] Pregabalin 200 MG Oral Capsule 11/21/2021 - 05/09/2022 Provider: FELISHA WUBC Diagnosis: TAKE 1 CAPSULE BY MOUTH TWICE DAILY Last Documented On 2 3:53PM By FELISHA HERRERA-BC ; [facility] HYDROcodone-Acetaminophen 5- 325 MG Oral Tablet 11/10/2021 - 12/09/2021 Provider: FELISHA WUBC Diagnosis: 1 every 6 hours as needed Last Documented On 2 11:56AM By FELISHA WUBC ; [facility] HYDROcodone-Acetaminophen 5- 325 MG Oral Tablet 10/13/2021 - 11/10/2021 Provider: FELISHA WUBC Diagnosis: 1 every 6 hours as needed Last Documented On 2 6:01PM By FELIHSA HERRERA-BC ; [facility] HYDROcodone-Acetaminophen 5- 325 MG Oral Tablet 09/06/2021 - 10/12/2021 Provider: FELISHA WUBC Diagnosis: 1 every 6 hours as needed Last Documented On 2 9:12AM By FELISHA WUBC ; [facility] Pregabalin 200 MG Oral Capsule 08/15/2021 - 11/21/2021 Provider: FELISHA WUBC Diagnosis: TAKE 1 CAPSULE BY MOUTH TWICE DAILY Last Documented On 2 11:37AM By FELISHA SENIOR ; [facility] HYDROcodone-Acetaminophen 5- 325 MG Oral Tablet 08/12/2021 - 09/06/2021 Provider: FELISHA SENIOR Diagnosis: Other spondylosis, cervical region 1 every 6 hours as needed Last Documented On 2 5:13PM By FELISHA SENIOR ; [facility] HYDROcodone-Acetaminophen 7. 5-325 MG Oral Tablet 07/11/2021 - 08/12/2021 Provider: FELISHA SENIOR Diagnosis: 1 po tid prn Last Documented On 1 12:06PM By FELISHA SENIOR ; [facility] HYDROcodone-Acetaminophen 7. 5-325 MG Oral Tablet 06/14/2021 - 07/11/2021 Provider: FELISHA SENIOR Diagnosis: Spinal stenosis, lumbosacral region 1 po tid prn Last Documented On 1 3:02PM By FELISHA SENIOR ; [facility] Pregabalin 200 MG Oral Capsule 06/14/2021 - 08/15/2021 Provider: FELISHA SENIOR Diagnosis: Fibromyalgia 1 CAPSULE TWO TIMES A DAY Last Documented On 1 4:32PM By FELISHA SENIOR ; [facility] Anastrozole 1 MG Oral Tablet 06/14/2021 - 02/05/2023 P rokerwinder: Diagnosis: Last Documented On 02/05/2023 4:02PM By Lilli MAK ; [facility] Pregabalin 150 MG Oral Capsule 05/30/2021 - 07/01/2021 Provider: FELISHA SENIOR Diagnosis: TAKE 1 CAPSULE BY MOUTH TWICE DAILY Last Documented On 1 9:21AM By FELISHA SENIOR ; [facility] HYDROcodone-Acetaminophen 5- 325 MG Oral Tablet 05/10/2021 - 07/01/2021 Provider: FELISHA SENIOR Diagnosis: 1 every 6 hours as needed Last Documented On 1 9:22AM By FELISHA SENIOR ; [facility] Pregabalin 150 MG Oral Capsule 04/13/2021 - 05/30/2021 Provider: FELISHA SENIOR Diagnosis: Fibromyalgia 1 CAPSULE TWO TIMES A DAY Last Documented On 1 5:36PM By FELISHA SENIOR ; [facility] Pregabalin 75 MG Oral Capsule 04/13/2021 - 06/14/2021 Provider: FELISHA SENIOR Diagnosis: Fibromyalgia 1 CAPSULE TWO TIMES A DAY Last Documented On 06/14/2021 1:42PM By Lilli MAK ; [facility] HYDROcodone-Acetaminophen 5- 325 MG Oral Tablet 04/13/2021 - 05/05/2021 Provider: FELISHA SENIOR 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, lumbar region 1 every 6 hours as needed Last Documented On 1 10:51AM By FELISHA SENIOR ; [facility] HYDROcodone-Acetaminophen 5- 325 MG Oral Tablet 2021 - 04/13/2021 Provider: FELISHA SENIOR Diagnosis: 1 po q 6-8 hours prn/ max 3 per day Last Documented On 1 1:37PM By FELISHA SENIOR ; [facility] HYDROcodone-Acetaminophen 5- 325 MG Oral Tablet 02/14/2021 - 2021 Provider: FELISHA SENIOR Diagnosis: Cervicalgia 1 po q 6-8 hours prn/ max 3 per day Last Documented On 1 4:57PM By FELISHA SENIOR ; [facility] HYDROcodone-Acetaminophen 5- 325 MG Oral Tablet 01/11/2021 - 02/11/2021 Provider: FELISHA SENIOR Diagnosis: Chronic pain syndrome 1 po q 6-8 hours prn/ max 3 per day Last Documented On 1 10:14AM By FELISHA SENIOR ; [facility] HYDROcodone-Acetaminophen 5- 325 MG Oral Tablet 12/13/2020 - 01/10/2021 Provider: FELISHA SENIOR Diagnosis: Chronic pain syndrome 1 po q 6-8 hours prn/ max 3 per day Last Documented On 1 5:12PM By FELISHA SENIOR ; [facility] HYDROcodone-Acetaminophen 5- 325 MG Oral Tablet 11/15/2020 - 12/13/2020 Provider: FELISHA SENIOR Diagnosis: Chronic pain syndrome 1 po q 6-8 hours prn Last Documented On 1 5:03PM By FELISHA SENIOR ; [facility] HYDROcodone-Acetaminophen 5- 325 MG Oral Tablet 10/07/2020 - 11/15/2020 Provider: FELISHA SENIOR Diagnosis: Chronic pain syndrome 1 po q 6-8 hours prnThis is 15 day rx Last Documented On 1 4:59PM By FELISHA SENIOR ; [facility] Vida 5-325 MG Oral Tablet 09/13/2020 - 2021 Provider: FELISHA SENIOR Diagnosis: Spinal stenosis, lumbosacral region 1 po q 6 hours prn/ not 4 da chano every daylast 30 days Last Documented On 1 3:39PM By FELISHA SENIOR ; [facility] Pregabalin 150 MG Oral Capsule 08/24/2020 - 04/13/2021 Provider: FELISHA SENIOR Diagnosis: Fibromyalgia TAKE 1 CAPSULE BY MOUTH TWICE DAILY Last Documented On 04/13/2021 1:12PM By Jonelle MAK ; [facility] Vida 5-325 MG Oral Tablet 08/09/2020 - 09/13/2020 Provider: FELISHA SENIOR Diagnosis: Spinal stenosis, lumbosacral region 1 po q 6 hours prn/ not 4 da chano every daylast 30 daysto fill 08/11/20 Last Documented On 1 5:32PM By FELISHA SENIOR ; [facility] Vida 5-325 MG Oral Tablet 07/13/2020 - 08/09/2020 Provider: FELISHA SENIOR Diagnosis: Spinal stenosis, lumbosacral region 1 po q 6 hours prn/ not 4 da chano every daylast 30 days Last Documented On 0 6:28PM By FELISHA SENIOR ; [facility] Vida 5-325 MG Oral Tablet 06/10/2020 - 07/12/2020 Provider: FELISHA SENIOR Diagnosis: Spinal stenosis, lumbosacral region 1 po q 6 hours prn/ not 4 da chano every daylast 30 days Last Documented On 0 9:04AM By FELISHA SENIOR ; [facility] Vida 5-325 MG Oral Tablet 05/11/2020 - 06/10/2020 Provider: FELISHA SENIOR Diagnosis: Spinal stenosis, lumbosacral region 1 po q 6 hours prn/ not 4 da chano every daylast 30 days Last Documented On 0 4:06PM By FELISHA SENIOR ; [facility] Pregabalin 150 MG Oral Capsule 05/03/2020 - 08/24/2020 Provider: FELISHA SENIOR Diagnosis: Fibromyalgia TAKE 1 CAPSULE BY MOUTH TWICE DAILY Last Documented On 0 3:10PM By FELISHA SENIOR ; [facility] Vida 5-325 MG Oral Tablet 04/12/2020 - 05/11/2020 Provider: FELISHA SENIOR Diagnosis: Spinal stenosis, lumbosacral region 1 poTID prn Last Documented On 0 3:27PM By FELISHA SENIOR ; [facility] Amitiza 24 MCG Oral Capsule 04/06/2020 - 2021 Provider: FELISHA SENIOR Diagnosis: Constipation, unspecified TAKE 1 CAPSULE BY MOUTH TWICE DAILY Last Documented On 2021 3:29PM By Jonelle MAK ; [facility] Vida 5-325 MG Oral Tablet 03/09/2020 - 04/09/2020 Provider: FELISHA SENIOR Diagnosis: Spinal stenosis, lumbosacral region 1 poTID prnto fill 03/10/20 Last Documented On 0 5:17PM By FELISHA SENIOR ; [facility] Amitiza 24 MCG Oral Capsule 02/09/2020 - 04/06/2020 Provider: FELISHA SENIOR Diagnosis: Constipation, unspecified 1 CAPSULE TWO TIMES A DAY Last Documented On 0 2:59PM By FELISHA SENIOR ; [facility] [facility] Vida 5-325 MG Oral Tablet 02/09/2020 - 03/09/2020 Provider: FELISHA SENIOR Diagnosis: Spinal stenosis, lumbosacral region 1 poTID prn Last Documented On 0 2:43PM By FELISHA SENIOR ; [facility] Pregabalin 150 MG Oral Capsule 01/30/2020 - 05/03/2020 Provider: FELISHA SENIOR Diagnosis: Fibromyalgia 1 CAPSULE TWO TIMES A DAY Last Documented On 0 9:03AM By FELISHA SENIOR ; [facility] Vida 5-325 MG Oral Tablet 01/08/2020 - 02/09/2020 Provider: FELISHA SENIOR Diagnosis: Spinal stenosis, lumbosacral region 1 poTID prnto fill 01/10/20 Last Documented On 0 2:57PM By FELISHA SENIOR ; [facility] Vida 5-325 MG Oral Tablet 12/10/2019 - 01/08/2020 Provider: FELISHA SENIOR Diagnosis: Low back pain 1 poTID prnto fill 12/11/19 Last Documented On 0 10:55AM By FELISHA SENIOR ; [facility] Vida 5-325 MG Oral Tablet 11/11/2019 - 12/09/2019 Provider: FELISHA SENIOR Diagnosis: Low back pain 1 poTID prn Last Documented On 0 2:38PM By FELISHA SENIOR ; [facility] Lyrica 150 MG Oral Capsule 10/10/2019 - 05/11/2020 Provider: FELISHA SENIOR Diagnosis: Fibromyalgia TAKE 1 CAPSULE BY MOUTH TWICE DAILY Last Documented On 0 3:14PM By FELISHA SENIOR ; [facility] Vida 5-325 MG Oral Tablet 10/09/2019 - 11/07/2019 Provider: FELISHA SENIOR Diagnosis: Low back pain 1 poTID prnto fill 10/11/19 Last Documented On 0 10:52AM By FELISHA SENIOR ; [facility] Vida 5-325 MG Oral Tablet 09/08/2019 - 10/08/2019 Provider: FELISHA SENIOR Diagnosis: Low back pain 1 poTID prn Last Documented On 0 8:45AM By FELISHA SENIOR ; [facility] Vida 5-325 MG Oral Tablet 08/07/2019 - 09/08/2019 Provider: FELISHA SENIOR Diagnosis: Low back pain 1 poTID prnto fill 08/08/19 Last Documented On 0 4:55PM By FELISHA SENIOR ; [facility] Lyrica 150 MG Oral Capsule 07/09/2019 - 10/10/2019 Provider: FELISHA SENIOR Diagnosis: Fibromyalgia TAKE 1 CAPSULE BY MOUTH TWICE DAILY Last Documented On 0 12:32PM By FELISHA SENIOR ; [facility] Vida 5-325 MG Oral Tablet 07/09/2019 - 08/07/2019 Provider: FELISHA SENIOR Diagnosis: Low back pain 1 po BID prnto fill 07/10/19 Last Documented On 9 2:09PM By FELISHA SENIOR ; [facility] Vida 5-325 MG Oral Tablet 06/10/2019 - 07/08/2019 Provider: FELISHA SENIOR Diagnosis: Low back pain 1 po BID prn Last Documented On 9 8:51AM By FELISHA SENIOR ; [facility] Lyrica 150 MG Oral Capsule 06/02/2019 - 07/08/2019 Provider: FELISHA SENIOR Diagnosis: Fibromyalgia TAKE 1 CAPSULE BY MOUTH TWICE DAILY Last Documented On 9 8:50AM By FELISHA SENIOR ; [facility] Xanax 0.5 MG Oral Tablet 04/29/2019 - 08/07/2019 Provi pan: FELISHA SENIOR Diagnosis: Low back pain as directed 1 po 1 hour prio r to procedure, 1 po 30 minutes prior to procedure and 1 immediately prior prn Last Documented On 9 2:03PM By FELISHA SENIOR ; [facility] Vida 5-325 MG Oral Tablet 04/29/2019 - 06/10/2019 Provider: FELISHA SENIOR Diagnosis: Low back pain 1 po BID prnto fill 05/01/19 Last Documented On 9 4:12PM By FELISHA SENIOR ; [facility] Vida 5-325MG Oral Tablet 04/03/2019 - 04/29/2019 Provider: FELISHA SENIOR Diagnosis: Low back pain 1 po BID prn Last Documented On 9 3:16PM By FELISHA SENIOR ; [facility] Vida 5-325MG Oral Tablet 2019 - 04/03/2019 Provider: FELISHA SENIOR Diagnosis: Low back pain 1 po BID prn Last Documented On 9 1:55PM By FELISHA SENIOR ; [facility] Lyrica 150MG Oral Capsule 03/03/2019 - 06/02/2019 Provider: FELISHA SENIOR Diagnosis: Fibromyalgia TAKE 1 CAPSULE BY MOUTH TWICE DAILY Last Documented On 9 1:26PM By FELISHA SENIOR ; [facility] Vida 5-325MG Oral Tablet 01/31/2019 - 2019 Provider: FELISHA SENIOR Diagnosis: Low back pain 1 po BID prn Last Documented On 9 9:04AM By FELISHA SENIOR ; [facility] traMADol HCl 50MG Oral Tablet 01/28/2019 - 01/31/2019 Provider: FELISHA SENIOR Diagnosis: Fibromyalgia 1 po BID prn Last Documented On 9 11:57AM By Sydnee MAK ; [facility] Lyrica 150MG Oral Capsule 01/28/2019 - 03/03/2019 Provider: FELISHA SENIOR Diagnosis: Fibromyalgia TAKE 1 CAPSULE BY MOUTH TWICE DAILY Last Documented On 9 8:22AM By FELISHA SENIOR ; [facility] Vida 5-325MG Oral Tablet 12/26/2018 - 01/31/2019 Provider: FELISHA SENIOR Diagnosis: Low back pain 1 po BID prn Last Documented On 9 11:51AM By FELISHA SENIOR ; [facility] Vida 5-325MG Oral Tablet 11/28/2018 - 12/26/2018 Provider: FELISHA SENIOR Diagnosis: Low back pain 1 po BID prn Last Documented On 9 4:54PM By FELISHA SENIOR ; [facility] Lyrica 150MG Oral Capsule, conventional 11/28/2018 - 01/28/2019 Provider: FELISHA SENIOR Diagnosis: Fibromyalgia 1 CAPSULE TWO TIMES A DAY Last Documented On 9 9:31AM By FELISHA SENIOR ; [facility] traMADol HCl 50MG Oral Tablet 10/31/2018 - 01/28/2019 Provider: FELISHA SENIOR Diagnosis: Fibromyalgia as directed 1-2 po TID prn pain Last Documented On 9 3:10PM By FELISHA SENIOR ; [facility] Lyrica 150MG Oral Capsule 10/31/2018 - 11/28/2018 Provider: FELISHA SENIOR Diagnosis: Fibromyalgia 1 CAPSULE TWO TIMES A DAY Last Documented On 9 3:12PM By FELISHA SENIOR ; [facility] Gabapentin 100MG Oral Capsule 10/03/2018 - 06/24/2019 Provider: Diagnosis: 1 morning, 1 at noon, 3 tabs at bedtime Last Documented On 9 2:28PM By FELISHA WU ; [facility] Hydroxychloroquine Sulfate 200MG Oral Tablet 9 - 03/23/2023 Provider: Diagnosis: BID Last Documented On 3 10:47AM By Lilli MAK ; [facility] TraMADol HCl 50MG Oral Tablet 10/03/2018 - 06/25/2019 Provider: Diagnosis: Twice daily Last Documented On 9 11:22AM By FELISHA WU ; [facility] Levothyroxine Sodium 50MCG Oral Tablet 10/03/2018 - Provider: Diagnosis: Last Documented On 3 10:48AM By Lilli MAK ; [facility] Lisinopril 40MG Oral Tablet 10/03/2018 - 07/05/2023 Pr ovider: Diagnosis: Last Documented On 3 10:40AM By Lilli MAK ; [facility] Venlafaxine HCl 75MG Oral Tablet 10/03/2018 - 11/07/19 24 Provider: Diagnosis: Last Documented On 4 10:19AM By Lilli MAK ; [facility] Gabapentin 300MG Oral Capsule 10/03/2018 - 02/05/2019 Provider: FELISHA SENIOR Diagnosis: Systemic lupus erythematosus, unspecified as directed Last Documented On 9 3:41PM By FELISHA SENIOR ; [facility] Omeprazole 40MG Oral Capsule Delayed Release 9 - 02/05/2023 Provider: Diagnosis: Last Documented On 02/05/2023 4:03PM By Lilli MAK ; [facility] Medications Administered Includes: Administered Medications in patient's chart Medications Administered Diagnosis Date Pro vider Ketorolac Tromethamine 30 MG/ML IJ SOLN 0 03/23/2023 FELISHA SENIOR Last Documented On 3 11:03AM By Lilli MAK ; [facility] Vital Signs Includes: Vital Signs from 10/01/2023 through 10/01/2024 Vital Name 02/01/2024 08:50A 12/17/2023 10:57A 11/30/2023 09:08A 11/23/2023 10:38A 11/07/2023 10:08A Body Surface Area 2 2 2 2 2 Pain Level 8 8 8 7 9 Temp-Oral (F) 98.6 98.6 98.6 97.6 Height (in) 65 65 65 65 65 Weight (lb) 215 215 215 216 216 Body Mass Index 35.8 35.8 35.8 35.9 35.9 Oxygen Saturation (%) 95 95 Blood Pressure Sitting L 138/85 BP Cuff Size Regular Pulse Rate-Sitting (bpm) 68 82 Pulse Rhythm Regular Respiration Rate (breaths/min) 20 Blood Pressure Sitting R 120/80 Temp-Temporal 96.5 Last Documented: On 02/01/2024 8:51AM ; [facility] On 12/17/2023 10:59AM ; [facility] On 11/30/2023 9:09AM ; [facility] On 11/23/2023 10:41AM ; [facility] On 11/07/2023 10:12AM ; [facility] Vital Name 10/08/2023 01:09P Body Surface Area 2.1 Pain Level 9 Height (in) 65 Weight (lb) 218 Body Mass Index 36.3 Oxygen Saturation (%) 92 Pulse Rate-Sitting (bpm) 79 Blood Pressure Sitting R 140/96 Temp-Temporal 96.4 Last Documented: On 10/08/2023 1:13PM ; [facility] Results Includes: Results from 10/01/2023 through 10/01/2024 BMP [facility] La boratory Ordered by MAX SINGLETON MD on 11/08/2023 [address] [facility], [place], [address] Collected: 11/08/2023 Report ed: 11/08/2023 15:51 tel: Last Documented On 8:42AM ; [facility] Reviewed on 02/04/2024; All test results are final unless otherwise noted. AGE 53 YEARS None Last Documented On 5:52PM ; [facility] Note: Responsible Observer: (ARC) ANION GAP 17.9 mmol/L (8.0 - 16.0) H (High) Last Documented On 4 5:52PM ; [facility] Note: eGFR INTERPRETATION AGE AVG GFR 20 -29 116 ml/min/1.73 m2 30-39 107 ml/min/1.73 m2 40-49 99 ml/min/1.73 m2 50-59 93 ml/min/1.73 m2 60-69 85 ml/min/1.73 m2 70+ 75 ml/min/1.73 m2 Chronic Kidney Disease-Less than 60 ml/min Kidney Failure-Less than 15 ml/min eGFR not calculated on patients <18 due to calculation differences. Please see the website below for the pediatric GFR calculator. https://www.kidney.org/professionals/kdoqi/gfr_calculatorped Responsible Observer: (ARC) BMP See Note None Last Documented On 4 5:52PM ; [facility] Note: BASIC METABOLIC PANELResponsible O bserver: (ARC) BUN 14 mg/dL (7 - 17) None Last Documented On 4 5:52PM ; [facility] Note: Responsible Observer: (ARC) CALCIUM 9.3 mg/dL (8.9 - 10.0) None Last Documented On 4 5:52PM ; [facility] Note: Responsible Observer: (ARC) CHLORIDE 104 mmol/L (98 - 107) None Last Documented On 4 5:52PM ; [facility] Note: Responsible Observer: (ARC) CREATININE 1.0 mg/dL (0.7 - 1.2) None Last Documented On 4 5:52PM ; [facility] Note: Responsible Observer: (ARC) eGFR. 67 mL/min None Last Documented On 4 5:52PM ; [facility] Note: Responsible Observer: (ARC) GLUCOSE 99 mg/dL (70 - 105) None Last Documented On 4 5:52PM ; [facility] Note: Responsible Observer: (ARC) POTASSIUM 4.9 mmol/L (3.6 - 5.0) None Last Documented On 4 5:52PM ; [facility] Note: Responsible Observer: (ARC) SODIUM 140 mmol/L (137 - 145) None Last Documented On 4 5:52PM ; [facility] Note: Responsible Observer: (ARC) TCO2 23.0 mmol/L (22.0 - 30.0) None Last Documented On 4 5:52PM ; [facility] Note: Responsible Observer: (ARC) Reported Physicians [facility] Liliane hsu Ordered by MAX SINGLETON MD on 11/08/19 24 [address] [facility], [place], [address] Collected: 11/08/2023 Report ed: 11/08/2023 15:51 tel: Last Documented On 4 8:42AM ; [facility] Reviewed on 02/04/2024; All test results are final unless otherwise noted. Reported Physicians See Note None Last Documented On 01/29/2024 5:52PM ; [facility] Note: Reported Physicians:Ordering: MAX SINGLETONAttending: MAX SINGLETONConsulting: REFUGIO AMARO DRUG MONITORING, PANEL 6 WITH CONFIRMATI ON, URINE [employer] Ordered by FELISHA HERRERA-TAMIKO on Collected: 10/08/2023 Reported: 10/14/19 24 22:48 Last Documented On 4 7:56AM ; [facility] Reviewed by FELISHA SENIOR on 10/15/2023; All test results are final unless otherwise noted. Amphetamines NEGATIVE CONFIRMED ng/mL (<500) None Last Documented On 4 11:35PM ; [facility] Amphetamine NEGATIVE ng/mL (<250) None Last Documented On 4 11:35PM ; [facility] Methamphetamine NEGATIVE ng/mL (<250) None Last Documented On 4 11:35PM ; [facility] Barbiturates NEGATIVE ng/mL (<300) None Last Documented On 4 11:35PM ; [facility] Benzodiazepines NEGATIVE ng/mL (<100) None Last Documented On 4 11:35PM ; [facility] Marijuana Metabolite NEGATIVE ng/mL (<20) None Last Documented On 4 11:35PM ; [facility] Cocaine Metabolite NEGATIVE ng/mL (<150) None Last Documented On 4 11:35PM ; [facility] Methadone Metabolite NEGATIVE ng/mL (<100) None Last Documented On 4 11:35PM ; [facility] Opiates POSITIVE ng/mL (<100) A (Abnormal) Last Documented On 4 11:35PM ; [facility] Codeine NEGATIVE ng/mL (<50) None Last Documented On 4 11:35PM ; [facility] Morphine NEGATIVE ng/mL (<50) None Last Documented On 4 11:35PM ; [facility] Hydrocodone 1166 ng/mL (<50) H (High) Last Documented On 4 11:35PM ; [facility] medMATCH Hydrocodone CONSISTENT None Last Documented On 4 11:35PM ; [facility] Hydromorphone 87 ng/mL (<50) H (High) Last Documented On 4 11:35PM ; [facility] medMATCH Hydromorphone CONSISTENT None Last Documented On 4 11:35PM ; [facility] Oxycodone NEGATIVE ng/mL (<100) None Last Documented On 4 11:35PM ; [facility] Phencyclidine NEGATIVE ng/mL (<25) None Last Documented On 4 11:35PM ; [facility] Alcohol Metabolites NEGATIVE ng/mL (<500) None Last Documented On 4 11:35PM ; [facility] 6 Acetylmorphine NEGATIVE ng/mL (<10) None Last Documented On 4 11:35PM ; [facility] pH 7.1 (4.5-9.0) None Last Documented On 4 11:35PM ; [facility] Creatinine 274.6 mg/dL (> or = 20.0) None Last Documented On 4 11:35PM ; [facility] Oxidant NEGATIVE mcg/mL (<200) None Last Documented On 4 11:35PM ; [facility] Norhydrocodone 2244 ng/mL (<50) H (High) Last Documented On 4 11:35PM ; [facility] medMATCH Norhydrocodone CONSISTENT None Last Documented On 4 11:35PM ; [facility] Amphetamines Comments See Note None Last Documented On 10/14/2023 11:35PM ; [facility] Note: See LDT Notes Opiates Comments See Note None Last Documented On 10/14/2023 11:35PM ; [facility] Note: See Opiates Notes, LDT Notes DRUG MONITORING TEMPLATE [employer] Ordered by FELISHA SENIOR on Collected: 10/08/2023 Reported: 10/14/19 24 22:48 Last Documented On 4 7:56AM ; [facility] Reviewed by FELISHA SENIOR on 10/15/2023; All test results are final unless otherwise noted. Notes and Comments See Note None Last Documented On 10/14/2023 11:35PM ; [facility] Note: This drug testing is for medical treatment only.Analysis was performed as non-forensic testing andthese results should be used only by healthcareproviders to render diagnosis or treatment, or tomonitor progress of medical conditions. Opiates Notes:Hydrocodone, Norhydrocodone, Hydromorphone detected is consistent with the use of the drug Hydrocodone. Hydromorphone detected is consistent with the use of the drug Hydromorphone. Hydromorphone can be a prescribed drug and is also a metabolite of Hydrocodone. LDT Notes:Confirmation tests were developed and their analytical performance characteristics have been determined by [employer]. It has not been cleared or approved by the FDA. This assay has been validated pursuant to the CLIA regulations and is used for clinical purposes. medMATCH(R) enables providers to identify if drug useis consistent or inconsistent with a correspondingprescribed medication(s) list. Healthcare Providers needing Interpretation assistance, please contact us at [phone] ( ) M-F, 8am to 10pm EST PRESCRIBED DRUGS, medMATCH(R) [employer] Ordered by FELISHA SENIOR on Collected: 10/08/2023 Reported: 10/14/19 24 22:48 Last Documented On 4 7:56AM ; [facility] Reviewed by FELISHA SENIOR on 10/15/2023; All test results are final unless otherwise noted. Prescribed Drug 6 Hydrocodone None Last Documented On 4 11:35PM ; [facility] medMATCH Summary See Note None Last Documented On 10/14/2023 11:35PM ; [facility] Note: Prescribed Prescribed Not Prescribed Consistent Inconsistent Inconsistent Hydrocodone Reported Physicians [facility] Ordered by FELISHA SENIOR on Collected: 10/08/2023 Reported: 10/14/19 24 23:50 Last Documented On 4 7:56AM ; [facility] Reviewed by FELISHA SENIOR on 10/15/2023; All test results are final unless otherwise noted. Reported Physicians See Note None Last Documented On 10/14/2023 11:35PM ; [facility] Note: Reported Physicians:Ordering: Felisha Rothman History of Present Illness History of Present Illness not supported for this document type No History of Present Illness Recorded Social History Description Last Updated Tobacco non-user 11/07/2023 Last Documented On 4 3:07PM ; [facility] Alcohol 07/31/2023 Last Documented On 3 2:52PM ; [facility] Consuming 5 or more drinks per day None 07/31/2023 Last Documented On 3 2:52PM ; [facility] Current nonsmoker 07/31/2023 Last Documented On 3 2:52PM ; [facility] Currently not in school 07/31/2023 Last Documented On 3 2:52PM ; [facility] Drug use 07/31/2023 Last Documented On 3 2:52PM ; [facility] Lives with spouse 07/31/2023 Last Documented On 3 2:52PM ; [facility] Non-smoker 07/31/2023 Last Documented On 3 2:52PM ; [facility] Not recovering alcoholic 07/31/2023 Last Documented On 3 2:52PM ; [facility] Not recovering from substance abuse 07/05 Last Documented On 3 2:52PM ; [facility] Number of times used recreat ional drug/ prescription drug for nonmedical reason. None 07/31/2023 Last Documented On 3 2:52PM ; [facility] No family problems 07/31/2023 Last Documented On 3 2:52PM ; [facility] No recent emotional stress 07/31/2023 Last Documented On 3 2:52PM ; [facility] Smoking status : Never smoker 08/07/2019 Last Documented On 9 9:54AM ; [facility] Currently 10/03/2018 Last Documented On 9 9:56AM ; [facility] No tobacco use 10/03/2018 Last Documented On 9 9:56AM ; [facility] Procedures and Surgical History Includes: Procedures from 10/01/2023 through 10/01/2024 Procedures Code Diagnosis Performing Provider Service Location Service Date CLINIC VISIT (VIA [employer]) T1015 Spinal stenosis, lumbar region with neurogenic claudication, Other spondylosis with radiculopathy, lumbar region, Fibromyalgia, keno terminal operator (current) use of opiate analgesic FELISHA ROTH[facility] 02/01/2024 Last Documented On 4 5:46PM ; [facility] CLINIC VISIT T1015 Other spondylosi s with radiculopathy, lumbar region, Systemic lupus erythematosus, unspecified, group home (current) use of opiate analgesic, Spinal stenosis, lumbar region with neurogenic claudication FELISHA [facility] 12/17/2023 Last Documented On 4 12:11PM ; [facility] CLINIC VISIT (VIA [employer]) T1015 Spinal stenosis, lumbar region with neurogenic claudication, Other spondylosis with radiculopathy, lumbar region, Fibromyalgia, group home (current) use of opiate analgesic FELISHA L [facility] 11/30/2023 Last Documented On 4 3:47PM ; [facility] CLINIC VISIT T1015 Spinal stenosis, lumbar region with neurogenic claudication, Other spondylosis with radiculopathy, lumbar region, Chronic pain syndrome, keno terminal operator (current) use of opiate analgesic FELISHA L [facility] 11/07/2023 Last Documented On 4 1:03PM ; [facility] CLINIC VISIT T1015 Spinal stenosis, lumbar region with neurogenic claudication, Other spondylosis with radiculopathy, lumbar region, Chronic pain syndrome, group home (current) use of opiate analgesic FELISHA L [facility] 10/08/2023 Last Documented On 4 1:10PM ; [facility] Medical History Includes: Medical History in patient's chart Description Last Updated Reviewed and Unchanged 10/10/2019 Last Documented On 0 12:34PM ; [facility] Currently wearing eyeglasses 10/03/2018 Last Documented On 9 9:56AM ; [facility] Previously 3 time(s) 10/03/2018 Last Documented On 9 9:56AM ; [facility] History of arthritis 10/03/2018 Last Documented On 9 9:56AM ; [facility] History of cancer 10/03/2018 Last Documented On 9 9:56AM ; [facility] History of hypertension 10/03/2018 Last Documented On 9 9:56AM ; [facility] Family History Includes: Family History in patient's chart Description Last Updated Family history of kidney disease 019 Last Documented On 9 9:56AM ; [facility] Father Hypertension 10/03/2018 Last Documented On 9 9:56AM ; [facility] Mother Gun Shot Wound 9 Last Documented On 9 9:56AM ; [facility] Review of Systems Review of Systems not supported for this document type No Review of Systems Recorded Mental Status Description Oriented to time, place, and person No anxiety Functional Status No Functional Status Recorded Physical Exam Physical Exam not supported for this document type No Physical Exam Recorded Allergies Includes: Active, inactive, and resolved Allergies Substance Type Reaction Onset Date Resolved Date Statu s Adhesive Tape 1 x5yd Allergy 07/31/2023 Active Last Documented On 4 8:53AM ; [facility] Encounters Includes: Encounters from 10/01/2023 through 10/01/2024 Encounter Provider Location Date Check-In Time Check-Out Time Diagnosis [facility] 02/01/20 24 12/17/2023 9:00AM 9:23AM Systemic Lupus Erythematosus,Ch ronic Pain Syndrome,Sacroil iitis,Fibromyalg ia,Spinal Stenosis Lumbar with Neurogenic Claudication,Spo ndylosis with Radiculopathy Lumbar Region,Radial Router Operator Use of Opiate Analgesic RX ISSUE/REFILL FELISHA ROTHMAN [facility] 01/18/20 24 12/17/2023 1:35PM 12/17/2023 11:59PM * PHONE CALL FELSIHA ROTHMAN [facility] 12/21/19 24 12/17/2023 11:54AM 12/17/2023 11:59PM TELEHEALTH FELISHAMOISES ROTHMAN [facility]- 12/17/19 10:55AM 11:15AM Systemic Lupus Erythematosus,Ch ronic Pain Syndrome,Sacroil iitis,Fibromyalg ia,Spinal Stenosis Lumbar with Neurogenic Claudication,Spo ndylosis with Radiculopathy Lumbar Region,Nursing Home Use of Opiate Analgesic RX [facility] 24 11/30/2023 2:04PM 11/30/2023 11:59PM TELEHEALTH FELISHAMOISES ROTHMAN [facility]- 11/30/19 9:05AM 9:37AM Systemic Lupus Erythematosus,Ch ronic Pain Syndrome,Sacroil iitis,Fibromyalg ia,Spinal Stenosis Lumbar with Neurogenic Claudication,Spo ndylosis with Radiculopathy Lumbar Region,Radial Router Operator Use of Opiate Analgesic PAIN MANAGEMENT FOLLOW UP MAX SINGLETON MD [facility] 11/23/19 10:35AM 10:57AM Systemic Lupus Erythematosus,Ch ronic Pain Syndrome,Sacroil iitis,Fibromyalg ia,Spinal Stenosis Lumbar with Neurogenic Claudication,Spo ndylosis with Radiculopathy Lumbar Region,Nursing Home Use of Opiate Analgesic * PHONE CALL FELISHA SENIOR 11/23/19 10:53AM 11:59PM POST PROCEDURE PHONE CALL MAX SINGLETON MD 11/19/1911/07/2023 12:29PM 11/07/2023 11:59PM RX ISSUE/REFILL FELISHA SENIOR 11/12/1911/07/2023 9:58AM 11/07/2023 11:59PM * PHONE CALL FELISHA SENIOR 11/07/19 3:02PM 11:59PM PAIN MANAGEMENT FOLLOW [facility] 11/07/19 9:59AM 10:40AM Systemic Lupus Erythematosus,Ch ronic Pain Syndrome,Sacroil iitis,Fibromyalg ia,Spinal Stenosis Lumbar with Neurogenic Claudication,Spo ndylosis with Radiculopathy Lumbar Region,Radial Router Operator Use of Opiate Analgesic PAIN MANAGEMENT FOLLOW UP [facility] 10/08/19 1:03PM 1:42PM Systemic Lupus Erythematosus,Ch ronic Pain Syndrome,Sacroil iitis,Fibromyalg ia,Spinal Stenosis Lumbar with Neurogenic Claudication,Spo ndylosis with Radiculopathy Lumbar Region,Nursing Home Use of Opiate Analgesic Insurance Includes: Active Insurance Policies Plan Name Member ID Group # Subscriber Relationship Effect nieves Dates 1 - [facility] [id number] KATHY Sanchez Clinical Notes Includes: Signed Clinical Notes starting from 09/22/2022 * Progress note Date Encounter Last Documented by 02/01/2024 TELEHEALTH Last documented on 02/01/2024; 9:17 AM, FELISHA SENIOR; [facility] Active Problems & Conditions - [...] in office in one month. Prior visit TH 12/17/23: Patient is a follow-up for medication. [...] in 3-4 weeks. Prior note 11/23/23 Dr. Singleton: Patient returns today 7 days after initiation of a spinal cord summation trial using 28 contact Medtronic percutaneous leads. His replacement. Guidance. Patient tolerated the procedure well. Despite multiple efforts approved reprogramming, and a report back to the [employer] provider service representative that she was getting approximate 75% [...] option for spinal cord stimulation with Dr. Singleton and met necessary requirements of psychological evaluation and meeting with the [employer] provider service representative. Psychological evaluation revealed no barriers to [...] will need a refill of hydrocodone today. [place] JET OPERATOR appropriate. Last UDS appropriate, this will be repeated today. Past note 07/12/23 (Dr. Singleton): Patient returns in follow-up to discuss spinal [...] simulation trial under fluoroscopic guidance. Of note, [place] prescription monitoring database was reviewed and found [...] week to further discuss this with Dr. Singleton. Hydrocodone is used 4 times per day with modest benefit. She would like to continue this medication. She denies any side effects. Last UDS appropriate. We will repeat this today. [facility] appropriate. She has exhibited no signs [...] Medication allows her to maintain function levels. [place] JET OPERATOR is appropriate. UDS was appropriate Past note: [...] syndrome [G89.4 - Chronic pain syndrome] - 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 [Z79.891 - group home (current) use of opiate analgesic] Therapy - [...] for visit: Provider: Privacy of provider's office. [address] [place] [address] [address] [place] [address] Patient: Patient personal setting Total time spent with patient via telecommunication 15 minutes * Progress note Date Encounter Last Documented by 01/18/2024 RX ISSUE/REFILL Last documented on 01/21/2024; 2:27 PM, FELISHA ROTHMAN ANP-; [facility] Active Problems & Conditions - [...] 01/18/2024. - Assess Tobacco Use satisfied 01/18/2024. * Progress note Date Encounter Last Documented by 12/21/2023 * PHONE CALL Last documented on 12/28/2023; 8:42 AM, FELISHA ROTHMAN ANP-; [facility] Active Problems & Conditions - Chronic Pain Syndrome Chief Complaint Phone Call - Chief Concern: reason for call:pt wanted to let you know she was given tramadol, i just picked it up but tramadol doesn't do anything for me , she just wanted you to be aware she was given this rx, liborios pt phone # for return call:[phone] date/initials:12/21/23, s. Past Medical/Surgical History Reported: Medical: Currently wearing [...] 12/21/2023. - Assess Tobacco Use satisfied 12/21/2023. * Progress note Date Encounter Last Documented by 12/17/2023 TELEHEALTH Last documented on 12/17/2023; 1:18 PM, FELISHA HERRERA-; [facility] Active Problems & Conditions - [...] in 3-4 weeks. Prior note 11/23/23 Dr. Singleton: Patient returns today 7 days after initiation of a spinal cord summation trial using 28 contact Medtronic percutaneous leads. His replacement. Guidance. Patient tolerated the procedure well. Despite multiple efforts approved reprogramming, and a report back to the [employer] provider service representative that she was getting approximate 75% [...] option for spinal cord stimulation with Dr. Singleton and met necessary requirements of psychological evaluation and meeting with the [employer] provider service representative. Psychological evaluation revealed no barriers to [...] will need a refill of hydrocodone today. [facility] appropriate. Last UDS appropriate, this will be repeated today. Past note 07/12/23 (Dr. Singleton): Patient returns in follow-up to discuss spinal [...] simulation trial under fluoroscopic guidance. Of note, [place] prescription monitoring database was reviewed and found [...] week to further discuss this with Dr. Singleton. Hydrocodone is used 4 times per day with modest benefit. She would like to continue this medication. She denies any side effects. Last UDS appropriate. We will repeat this today. [facility] appropriate. She has exhibited no signs [...] Medication allows her to maintain function levels. [place] JET OPERATOR is appropriate. UDS was appropriate Past note: [...] syndrome [G89.4 - Chronic pain syndrome] - group home use of opiate analgesic [Z79.891 - group home (current) use of opiate analgesic] Therapy - [...] for visit: Provider: Privacy of provider's office. [address] [place] [id number] Patient: Patient personal setting Total time spent with patient via telecommunication minutes * Progress note Date Encounter Last Documented by 12/14/2023 RX ISSUE/REFILL Last documented on 12/17/2023; 2:39 PM, FELISHA Marcos ARTHUR ANP-; [facility] Active Problems & Conditions - [...] 12/14/2023. - Assess Tobacco Use satisfied 12/14/2023. * Progress note Date Encounter Last Documented by 11/30/2023 TELEHEALTH Last documented on 11/30/2023; 9:40 AM, FELISHA ROTHMAN ANP-; [facility] Active Problems & Conditions - Chronic Pain Syndrome Chief Complaint The Chief Complaint is: 1 WEEK FU FROM SCS TRIAL LEADS REMOVED ON 11/23/23 I'M NOT GONNA GET IT DONE . History of Present Illness - Allergy list reviewed - Allergy list reviewed - Problem list reviewed - Medication reconciliation performed - Medication list reviewed This visit was conducted with use of interactive audio and video telecommunication system with real time communication between the patient and the provider. All concerns discussed and addressed without physical examination completed. If at any time it was felt patient should be evaluated in the clinic, further arrangements would of been made. Verbal patient consent for visit obtained today. Discussion: Patient is a follow up for chronic [...] in 3-4 weeks. Prior note 11/23/23 Dr. Singleton: Patient returns today 7 days after initiation of a spinal cord summation trial using 28 contact Medtronic percutaneous leads. His replacement. Guidance. Patient tolerated the procedure well. Despite multiple efforts approved reprogramming, and a report back to the [employer] provider service representative that she was getting approximate 75% [...] risk of infection. Patient will return to [facility], ANP discuss medication options or any additional [...] she is prepared to proceed. Questions answered. ILP reveals she had filled a prescription from [...] option for spinal cord stimulation with Dr. Singleton and met necessary requirements of psychological evaluation and meeting with the [employer] provider service representative. Psychological evaluation revealed no barriers to [...] will need a refill of hydrocodone today. [place] JET OPERATOR appropriate. Last UDS appropriate, this will be repeated today. Past note 07/12/23 (Dr. Singleton): Patient returns in follow-up to discuss spinal [...] simulation trial under fluoroscopic guidance. Of note, [place] prescription monitoring database was reviewed and found [...] week to further discuss this with Dr. Singleton. Hydrocodone is used 4 times per day with modest benefit. She would like to continue this medication. She denies any side effects. Last UDS appropriate. We will repeat this today. [facility] appropriate. She has exhibited no signs [...] Medication allows her to maintain function levels. [place] JET OPERATOR is appropriate. UDS was appropriate Past note: [...] S1. Spondylosis has slightly worsened since 2016 Test Conclusions PHQ-9 Score: 13 Date: 10/08/23 BPI Score: Date: MiDAS Score: Date: SOAPP-R Score: 8 LOW Date: 10/08/23 CHARLES Score: 27=54% Date:10/08/23 Past Medical/Surgical History Reported: Medical: Currently wearing [...] No rash. Physical Findings - Vitals taken 11/30/2023 09:08 am Temp-Oral 98.6 F Height 65 in Weight 215 lbs Body Mass Index 35.8 kg/m2 Body Surface Area 2 m2 Pain Level 8 Pain Level Note LOW BACK General Appearance: - Normal. - In no [...] syndrome [G89.4 - Chronic pain syndrome] - 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 [Z79.891 - group home (current) use of opiate analgesic] Therapy - Clinical summary provided to patient via portal/mailed. Patient understands and agrees with treatment plan. Questions answered. Counseling/Education - Pill Count: HYDROCODONE out of medication Discussed Continue Hysingla at current dose, this is the same hydrocodone dosage she has taken for years May add tylenol up to 3000mg per day F/U 3-4 weeks. Practice Management Use of tobacco assessment performed Review of medications documented. Health Reminders - Assess BMI satisfied 11/30/2023. - Assess Need for CT Lung Screen satisfied 11/30/2023. - Assess Tobacco Use satisfied 11/30/2023. User Defined 27 Location for visit: Provider: Privacy of provider's office. Patient: Patient personal setting Total time spent with patient via telecommunication 15 minutes * Progress note Date Encounter Last Documented by 11/23/2023 PAIN MANAGEMENT FOLLOW UP Last d ocumented on 11/23/2023; 6:28 PM, MAX SINGLETON MD; [facility] Active Problems & Conditions - Chronic Pain Syndrome Chief Complaint The Chief Complaint is: Patient here today to follow up from SCS trial done on 11/15. Patient reports 50% relief in back pain from this procedure. History of Present Illness KATHY MCNULTY is a 53 year old female. - Allergy list reviewed - Problem list reviewed - Medication reconciliation performed - Medication list reviewed Discussion: Patient returns today 7 days after initiation of a spinal cord summation trial using 28 contact Medtronic percutaneous leads. His replacement. Guidance. Patient tolerated the procedure well. Despite multiple efforts approved reprogramming, and a report back to the [employer] provider service representative that she was getting approximate 75% [...] option for spinal cord stimulation with Dr. Singleton and met necessary requirements of psychological evaluation and meeting with the [employer] provider service representative. Psychological evaluation revealed no barriers to [...] will need a refill of hydrocodone today. [place] JET OPERATOR appropriate. Last UDS appropriate, this will be repeated today. Past note 07/12/23 (Dr. Singleton): Patient returns in follow-up to discuss spinal [...] simulation trial under fluoroscopic guidance. Of note, [place] prescription monitoring database was reviewed and found [...] week to further discuss this with Dr. Singleton. Hydrocodone is used 4 times per day with modest benefit. She would like to continue this medication. She denies any side effects. Last UDS appropriate. We will repeat this today. [facility] appropriate. She has exhibited no signs [...] Medication allows her to maintain function levels. [place] JET OPERATOR is appropriate. UDS was appropriate Past note: [...] S1. Spondylosis has slightly worsened since 2016 Current Medication - Anastrozole 1 MG Oral [...] One tablet daily 30 days, 0 refills Past Medical/Surgical History Reported: Medical: Currently wearing eyeglasses. : Previously 3 time(s). Diagnoses: Systemic hypertension. Arthritis. Cancer Reviewed and Unchanged. Social History Personal: No family problems and no recent emotional stress. Tobacco use: No tobacco use. Current nonsmoker, non-smoker, and smoking status: Never smoker. Alcohol: Alcohol alcohol use six or more drinks per day 5 or more drinks per day None. Not recovering alcoholic. Drug Use: Drug use. Not recovering from substance abuse. Number of times used recreational drug/ prescription drug for nonmedical reason. None. Housing And Economic Circumstances: Lives with spouse. Education: Currently not in school. Marital: Currently . Allergies - Adhesive Tape 1 x5yd Family History Father Hypertension Mother Gun Shot Wound Kidney disease Review Of Systems Systemic: No systemic symptoms other than noted. Feeling tired. No fever, no chills, and no recent weight change. Head: Headache chronic/recurring. Neck: Neck pain. Cardiovascular: No chest pain or discomfort. Pulmonary: No dyspnea. Gastrointestinal: No gastrointestinal symptoms other than noted. Endocrine: No endocrine symptoms other than noted. Hematologic: No easy bleeding and no tendency for easy bruising. Musculoskeletal: Lower back pain, muscle aches, pain localized to one or more joints, and joint swelling localized to one or more joints. Neurological: No fainting passing out with needles or medical procedures, no motor disturbances, and no sensory disturbances. Psychological: Feeling nervous and depression. Skin: No skin symptoms other than noted and no rash. Physical Findings - Vitals taken 11/23/2023 10:38 am BP-Sitting L 138/85 mmHg BP Cuff Size Regular Pulse Rate-Sitting 68 bpm Pulse Rhythm Regular Respiration Rate 20 per min Temp-Oral 97.6 F Height 65 in Weight 216 lbs Body Mass Index 35.9 kg/m2 Body Surface Area 2 m2 Pain Level 7 Oxygen Saturation 95 % Musculoskeletal System: General/bilateral: Musculoskeletal Scales: Value Lumbar oswestry score 54% 27 Psychiatric: Psychiatric: Value PHQ9 score: 13 Constitutional: Well developed. Well nourished. In no acute distress. HEENT: NC/AT. Anicteric. Clear Conjunctiva. PERRLA. MM's pink/moist. No lesions of nasal mucosa. CVS: Normal rate and rhythm. Peripheral pulses palpable in all extremities. Resp. Lungs clear to auscultation. No distress noted. Spine/MSK: Tenderness bilateral lumbar facet joints. Positive facet loading bilaterally, R>L. Positive SLR on right. Decrease lumbar range of motion and extension and rotation bilaterally. Tenderness bilateral SI joints, R>L.Leads were removed intact. No signs of infection, discharge or bleeding. Gait: Not antalgic. No steppage gait. No Trendelenburg gait. No circumspected gait pattern. Heel walk normal. Toe walk normal. Tandem gait normal. Neuro: Awake. Alert. Oriented x3. DTR's intact in all extremities. DTR's equal in all extremities. No focal neurologic deficit. Uise-cv-spsv normal bilaterally. Babinski downgoing. Psych: No apparent distress. Mood normal. Affect normal. No pain behaviors. Skin: No rash. Normal pigmentation. Normal temperature Tests Educational Testing: Questionnaires PHQ-9: Value SOAPP-R: total score 8 Assessment - [M32.9 - Systemic lupus erythematosus, unspecified] Systemic lupus erythematosus - [M46.1 - Sacroiliitis, not elsewhere classified] Sacroiliitis - [M47.26 - Other spondylosis with radiculopathy, lumbar region] Lumbar spondylosis with radiculopathy - [M48.062 - Spinal stenosis, lumbar region with neurogenic claudication] Lumbar stenosis with neurogenic claudication - [M79.7 - Fibromyalgia] Fibromyalgia - [G89.4 - Chronic pain syndrome] Chronic pain syndrome - [Z79.891 - group home (current) use of opiate analgesic] group home use of opiate analgesic Test Conclusions PHQ-9 Score: 13 Date: 10/08/23 BPI Score: Date: MiDAS Score: Date: SOAPP-R Score: 8 LOW Date: 10/08/23 CHARLES Score: 27=54% Date:10/08/23 Therapy - Assessment of suicide risk performed Counseling/Education - Pill Count: HYDROCODONE out of medication Discussed The preoperative H & P is done today in the office. No major problems are found. We will proceed with surgical intervention accordingly. Patient is on chronic opioid therapy and tolerating well with no report of adverse symptoms or side effects. Patient reports improvement in pain and functional capacity. Objective measures of pain interference and physical functioning show clinically significant benefit from therapy. Patient expresses understanding of safe and appropriate use of opioids for analgesia. and demonstrates the same. Random pill counts and urine drug screens have been appropriate. This and review of the [facility] database shows no evidence of misuse, abuse, diversion or signs of addiction/use disorder. Patient advised of risks and benefits of medication including the development of tolerance, dependence, withdrawal, addiction, constipation/obstipation, itching, allergic reactions, sedation, worsening depression/anxiety, hormonal perturbations, cognitive impairment or impairment in judgement, psychomotor slowing/impairment, intoxication, injury/accident, DWI/DUI, respiratory depression or failure, development of hyperalgesia, overdose and . Patient is aware that the combination of opioid medications in any form, whether used over the short term or chronically, with other sedative or psychoactive medication including but not limited to benzodiazepines, muscle relaxants, THC, alcohol, hypnotics/sleep medications or other illicit drugs can result in an increased risk of overdose and and is discouraged. Patient is aware that in all cases the lowest effective dose of opioids should be used and doses should be weaned as tolerated as pain improves. Opioid consent form and patient-physician agreement have been reviewed with the patient with all questions satisfactorily elicited asked and answered. These documents have been signed, witnessed and entered into the patient record with a copy provided to the patient. Patient understands that violation of this agreement could result in discontinuation of controlled substances including opioids and possible dismissal from the practice. Patient was further instructed today on taking medication correctly; storing medication securely; disposing of medication properly. Patient was warned against sharing medication and escalating doses without the prescribing provider's knowledge and instruction. Patient was instructed to call the office directly for refills of any controlled substance 4-5 days in advance to avoid unnecessary delays or disruptions in their dosing.. Plan Patient will follow-up with SHARON Massey discussed medication options or any additional options to include intrathecal pain pump, facet ablations or diagnostic/therapeutic SI joint injections. Practice Management Use of tobacco assessment performed Falls risk assessment not documented patient refused Review of medications documented; Standardized depression screening: positive for symptoms and for adult impression and score 13. Results of this interaction were communicated directly to the patient's referring and/or primary care provider. All imaging studies and test results discussed in the above document were personally reviewed and evaluated by the performing provider. For all patients on acute or chronic opioids, ongoing need for opioid analgesia is assessed at each visit with consideration of discontinuation or wean to lowest effective dose when possible and appropriate. Contents of this document have been edited for correctness, but may be subject to typographical or electronic court recorder errors. Verify all diagnoses, medications, dosages, and patient instructions with patient and/or the originator of this document. Health Reminders - Assess BMI satisfied 11/23/2023. - Assess Tobacco Use satisfied 11/23/2023. - Depression Screening satisfied 11/23/2023. - Follow up plan for Depression Screening satisfied 11/23/2023. * Progress note Date Encounter Last Documented by 11/23/2023 * PHONE CALL Last documented on 11/23/2023; 11:32 AM, FELISHA HERRERA-; [facility] Active Problems & Conditions - Chronic Pain Syndrome Chief Complaint Phone Call - Chief Concern: reason for call:pt lmovm stating that she would like to try the morphine or something else because the hysingla is not working , can't sleep, states she's been in pain ever since i ran out of the Hydrocodone , states she can bring the rest of the Hysingla in, states she has been taking it since the of this month, returned pt's call, robert pt phone # for return call:[phone] date/initials:11-23-23, kms. History of Present Illness Pharmacy name:~location:[facility]. Past Medical/Surgical History Reported: Medical: Currently wearing [...] Adhesive Tape 1 x5yd Plan StartCited - Other PHY ORDER/COMMENT take it with tylenol up to 3000mg per day. She is taking exactly the same dose of hydrocodone as she was on before. EndCited Health Reminders - Assess Need for CT Lung Screen satisfied 11/23/2023. - Assess Tobacco Use satisfied 11/23/2023. * Progress note Date Encounter Last Documented by 11/19/2023 POST PROCEDURE PHONE CALL Last d ocumented on 11/19/2023; 12:33 PM, Yojana Shaw RN; [facility] Top of Document Post-Procedural Patient Screening Questionnaire Date of Procedure: 11/16/23 Procedure: SCS Trial 1. How have you felt since your last procedure? Had some issue with it at first, but after talking with [employer], things are now better. No pain at this time Improved Same Worse 2. Pain level prior to procedure? 9/10 3. Pain level currently? low/10 4. How long after procedure did symptoms begin? Denies Same pain but worse New Symptoms ? If new, describe: Improving Staying the same Getting worse 5. Any post procedure issues with injection? Denies Heat Swelling Soreness Redness Streaking Injection site pain Bleeding Discharge/Drainage 6. Are you experiencing new numbness in the groin or saddle area? Yes No 7.New loss of bowel or bladder control? Yes No 8. Are you having any of the following symptoms? Denies Fever Chills Night Sweats Rigors/Shaking Chills Headaches Neck Stiffness Sensitivity to sound New muscle pain/Stiffness Weakness Nausea Vomiting Diarrhea Dizziness Rash Flushing Mood Irritability Blood Pressure changes Blood sugar changes Completed by Mojgan Shaw RN on 11/19/23 Active Problems & Conditions - Chronic Pain Syndrome Current Medication - Anastrozole 1 MG Oral [...] tablet daily 30 days, 0 refills - HYDROcodone-Acetaminophen 5-325 MG Oral Tablet 1 every 6 hours as needed for severe pain, max 4/day, 30 days, 0 refills - hydrOXYzine HCl [...] One tablet daily 30 days, 0 refills Past Medical/Surgical History Reported: Medical: Currently wearing eyeglasses. : Previously 3 time(s). Diagnoses: Systemic hypertension. Arthritis. Cancer Reviewed and Unchanged. Social History Personal: No family problems and no recent emotional stress. Tobacco use: No tobacco use. Current nonsmoker, non-smoker, and smoking status: Never smoker. Alcohol: Alcohol alcohol use six or more drinks per day 5 or more drinks per day None. Not recovering alcoholic. Drug Use: Drug use. Not recovering from substance abuse. Number of times used recreational drug/ prescription drug for nonmedical reason. None. Housing And Economic Circumstances: Lives with spouse. Education: Currently not in school. Marital: Currently . Allergies - Adhesive Tape 1 x5yd Family History Father Hypertension Mother Gun Shot Wound Kidney disease Health Reminders - Assess Tobacco Use satisfied 11/19/2023. * Progress note Date Encounter Last Documented by 11/12/2023 RX ISSUE/REFILL Last documented on 11/14/2023; 10:09 AM, FELISHA ROTHMAN ANP-; [facility] Active Problems & Conditions - Chronic Pain Syndrome Chief Complaint Phone Call - Chief Concern: reason for call:pt nereidaovm stating that she has only has #7 pills left and has been taking them qid, spw pt, reiterated that per provider, she was only to be taking tid, since it is a higher dose, she states i don't even remember you telling me that, are you being evil to me today, what, you don't love me no more? she then wanted to know when she should call back for new medication, stating well i was there on the , i told her that she was here on the so she went back to her calender to confirm, pt realized she was here on the and reminded me that she took her first pill at 4:24 pm. i explained to her that her current rx should have lasted her 12-13 days and to call back on for new Rx to be filled on the or , and she would have to make them last until then. pt then wanted to know what medication she would be given, I told her Hysingla and went over providers comments, for the second time, in previous task explaining the longer coverage for pain pt's tone of voice dropped lower and she said ok pt phone # for return call:[phone] date/initials:11/12/23, kms. Past Medical/Surgical History Reported: Medical: Currently [...] tablet daily 30 days, 0 refills - HYDROcodone-Acetaminophen 5-325 MG Oral Tablet 1 every 6 hours as needed for severe pain, max 4/day, 30 days, 0 refills - hydrOXYzine HCl [...] 24 hours, 30 days, 0 refills EndCited Health Reminders - Assess Need for CT Lung Screen satisfied 11/12/2023. - Assess Tobacco Use satisfied 11/12/2023. * Progress note Date Encounter Last Documented by 11/07/2023 * PHONE CALL Last documented on 11/08/2023; 4:31 PM, FELISHA HERRERA-; [facility] Active Problems & Conditions - Chronic Pain Syndrome Chief Complaint Phone Call - Chief Concern: reason for call:Patient called, she states that she found the bottle of Hydrocodone 7.5/325 mg. after she returned home. She said there were 40 in the bottle and she has only taken 8 of the 40 pills. She wants to keep in your good graces because she loves her Ms. Carranza and the whole staff. She wants to know if she can take the remaining tablets to the [place] [facility] to dispose of the remainder of the pills? Please advise. pt phone # for return call: date/initials:11/07/2023 CP. History of Present Illness Will convert patient to long acting pain medication at this time r/t recent prescription issues with spouse as well as pain that is 26/03. She is currently on 20mg of hydrocodone per day. Recommending an abuse deterrent medication in form of hysingla ER. This is used once per day. Do not recommend morphine ER as the lowest dose is 10mg more than current dosage. She will continue with current rx she has at home from surgeon. There are currently #38 pills of 7.5/325mg. She will take this 3 times per day until out and then start hysingla. She has 12-13 days of medication and will need to call 4-5 days prior to running out in order to get medication approved. Patient was informed. Past Medical/Surgical History Reported: Medical: Currently wearing [...] tablet daily 30 days, 0 refills - HYDROcodone-Acetaminophen 5-325 MG Oral Tablet 1 every 6 hours as needed for severe pain, max 4/day, 30 days, 0 refills - hydrOXYzine HCl [...] . Allergies - Adhesive Tape 1 x5yd Discussed Will convert patient to long acting pain medication at this time r/t recent prescription issues with spouse as well as pain that is 24/. She is currently on 20mg of hydrocodone per day. Recommending an abuse deterrent medication in form of hysingla ER. This is used once per day. Do not recommend morphine ER as the lowest dose is 10mg more than current dosage. She will continue with current rx she has at home from surgeon. There are currently #38 pills of 7.5/325mg. She will take this 3 times per day until out and then start hysingla. She has 12-13 days of medication and will need to call 4-5 days prior to running out in order to get medication approved. Patient was informed. Plan StartCited - Other PHY ORDER/COMMENT I'm a little concerned with honesty from the patient. She had insisted she didn't get these and now reports she took 8. She didn't take 8 today so they had to of been taken prior, which suggests she knew she had the medication. If not, someone else took them and that needs addressed. Can I ask why she was dishonest about getting the prescription? EndCited Health Reminders - Assess Need for CT Lung Screen satisfied 11/07/2023. - Assess Tobacco Use satisfied 11/07/2023. * Progress note Date Encounter Last Documented by 11/07/2023 PAIN MANAGEMENT FOLLOW UP Last d ocumented on 11/08/2023; 3:07 PM, FELISHA HERRERA-; [facility] Top of Document This document represents the pre-surgical History & Physical for this patient Active Problems & Conditions - Chronic Pain Syndrome Chief Complaint The Chief Complaint is: H&P FOR SCS TRIAL. History of Present Illness - Allergy list reviewed - Problem list reviewed - Medication reconciliation performed - Medication list reviewed - Prescription Drug Monitoring Program website checked. 11/01/23 - How much of the medication are you taking a day? QID - Last dose of medication? - Last drug screen appropriate 10/08/23 Discussion: Patient presents in follow up for H [...] option for spinal cord stimulation with Dr. Singleton and met necessary requirements of psychological evaluation and meeting with the [employer] provider service representative. Psychological evaluation revealed no barriers to [...] will need a refill of hydrocodone today. [place] JET OPERATOR appropriate. Last UDS appropriate, this will be repeated today. Past note 07/12/23 (Dr. Singleton): Patient returns in follow-up to discuss spinal [...] simulation trial under fluoroscopic guidance. Of note, [place] prescription monitoring database was reviewed and found [...] week to further discuss this with Dr. Singleton. Hydrocodone is used 4 times per day with modest benefit. She would like to continue this medication. She denies any side effects. Last UDS appropriate. We will repeat this today. [facility] appropriate. She has exhibited no signs [...] allows her to maintain function levels. [place] JET OPERATOR is appropriate. UDS was appropriate Past note: [...] S1. Spondylosis has slightly worsened since 2016 Test Conclusions PHQ-9 Score: 13 Date: 10/08/23 BPI Score: Date: MiDAS Score: Date: SOAPP-R Score: 8 LOW Date: 10/08/23 CHARLES Score: 27=54% Date:10/08/23 Past Medical/Surgical History Reported: Medical: Currently wearing [...] tablet daily 30 days, 0 refills - HYDROcodone-Acetaminophen 5-325 MG Oral Tablet 1 every 6 hours as needed for severe pain, max 4/day, 30 days, 0 refills - hydrOXYzine HCl [...] . Allergies - Adhesive Tape 1 x5yd Family History Father Hypertension Mother Gun Shot Wound Kidney disease Review Of Systems Systemic: No systemic symptoms other than noted. Feeling tired. No fever, no chills, and no recent weight change. Head: Headache chronic/recurring. Neck: Neck pain. Cardiovascular: No chest pain or discomfort. Pulmonary: No dyspnea. Gastrointestinal: No gastrointestinal symptoms other than noted. Endocrine: No endocrine symptoms other than noted. Hematologic: No easy bleeding and no tendency for easy bruising. Musculoskeletal: Lower back pain, muscle aches, pain localized to one or more joints, and joint swelling localized to one or more joints. Neurological: No fainting passing out with needles or medical procedures, no motor disturbances, and no sensory disturbances. Psychological: Feeling nervous and depression. Skin: No skin symptoms other than noted and no rash. Physical Findings - Vitals taken 11/07/2023 10:08 am BP-Sitting R 120/80 mmHg Pulse Rate-Sitting 82 bpm Temp-Temporal 96.5 F Height 65 in Weight 216 lbs Body Mass Index 35.9 kg/m2 Body Surface Area 2 m2 Pain Level 9 Pain Level Note LOW BACK, RIGHT KNEE, LEFT FOOT Oxygen Saturation 95 % Musculoskeletal System: General/bilateral: Musculoskeletal Scales: Value Lumbar oswestry score 54% 27 Psychiatric: Psychiatric: Value PHQ9 score: 13 Constitutional: Well developed. Well nourished. In no acute distress. HEENT: NC/AT. Anicteric. Clear Conjunctiva. PERRLA. MM's pink/moist. No lesions of nasal mucosa. CVS: Normal rate and rhythm. Peripheral pulses palpable in all extremities. Resp. Lungs clear to auscultation. No distress noted. Spine/MSK: Tenderness bilateral lumbar facet joints. Positive facet loading bilaterally, R>L. Positive SLR on right. Decrease lumbar range of motion and extension and rotation bilaterally. Tenderness bilateral SI joints, R>L. Gait: Not antalgic. No steppage gait. No Trendelenburg gait. No circumspected gait pattern. Heel walk normal. Toe walk normal. Tandem gait normal. Neuro: Awake. Alert. Oriented x3. DTR's intact in all extremities. DTR's equal in all extremities. No focal neurologic deficit. Khlk-[id number] normal bilaterally. Babinski downgoing. Psych: No apparent distress. Mood normal. Affect normal. No pain behaviors. Skin: No rash. Normal pigmentation. Normal temperature Tests Educational Testing: Questionnaires PHQ-9: Value SOAPP-R: total score 8 Assessment - Systemic lupus erythematosus [M32.9 - Systemic lupus erythematosus, unspecified] - Sacroiliitis [M46.1 - Sacroiliitis, not elsewhere classified] - Lumbar spondylosis with radiculopathy [M47.26 - Other spondylosis with radiculopathy, lumbar region] - Lumbar stenosis with neurogenic claudication [M48.062 - Spinal stenosis, lumbar region with neurogenic claudication] - Fibromyalgia [M79.7 - Fibromyalgia] - Chronic pain syndrome [G89.4 - Chronic pain syndrome] - group home use of opiate analgesic [Z79.891 - group home (current) use of opiate analgesic] Therapy - Assessment of suicide risk performed Counseling/Education - Pill Count: HYDROCODONE out of medication Discussed The preoperative H & P is done today in the office. No major problems are found. We will proceed with surgical intervention accordingly. Patient is on chronic opioid therapy and tolerating well with no report of adverse symptoms or side effects. Patient reports improvement in pain and functional capacity. Objective measures of pain interference and physical functioning show clinically significant benefit from therapy. Patient expresses understanding of safe and appropriate use of opioids for analgesia. and demonstrates the same. Random pill counts and urine drug screens have been appropriate. This and review of the [facility] database shows no evidence of misuse, abuse, diversion or signs of addiction/use disorder. Patient advised of risks and benefits of medication including the development of tolerance, dependence, withdrawal, addiction, constipation/obstipation, itching, allergic reactions, sedation, worsening depression/anxiety, hormonal perturbations, cognitive impairment or impairment in judgement, psychomotor slowing/impairment, intoxication, injury/accident, DWI/DUI, respiratory depression or failure, development of hyperalgesia, overdose and . Patient is aware that the combination of opioid medications in any form, whether used over the short term or chronically, with other sedative or psychoactive medication including but not limited to benzodiazepines, muscle relaxants, THC, alcohol, hypnotics/sleep medications or other illicit drugs can result in an increased risk of overdose and and is discouraged. Patient is aware that in all cases the lowest effective dose of opioids should be used and doses should be weaned as tolerated as pain improves. Opioid consent form and patient-physician agreement have been reviewed with the patient with all questions satisfactorily elicited asked and answered. These documents have been signed, witnessed and entered into the patient record with a copy provided to the patient. Patient understands that violation of this agreement could result in discontinuation of controlled substances including opioids and possible dismissal from the practice. Patient was further instructed today on taking medication correctly; storing medication securely; disposing of medication properly. Patient was warned against sharing medication and escalating doses without the prescribing provider's knowledge and instruction. Patient was instructed to call the office directly for refills of any controlled substance 4-5 days in advance to avoid unnecessary delays or disruptions in their dosing.. Patient will proceed with spinal cord stimulator under sedation Patient to call back about recent rx from another provider Risks, benefits and alternatives (including doing nothing) were discussed with the patient who agreed to proceed despite risk and agreement that potential benefits outweighs the chance of significant harm. Hold ASA x 3 days prior to procedure. Instructional handout given and discussed. F/U post procedure Plan StartCited - Other PHY ORDER/COMMENT labs from recent surgery from [facility] Use of tobacco assessment performed Falls risk assessment not documented patient refused Review of medications documented; Standardized depression screening: positive for symptoms and for adult impression and score 13. Results of this interaction were communicated directly to the patient's referring and/or primary care provider. All imaging studies and test results discussed in the above document were personally reviewed and evaluated by the performing provider. For all patients on acute or chronic opioids, ongoing need for opioid analgesia is assessed at each visit with consideration of discontinuation or wean to lowest effective dose when possible and appropriate. Contents of this document have been edited for correctness, but may be subject to typographical or electronic court recorder errors. Verify all diagnoses, medications, dosages, and patient instructions with patient and/or the originator of this document. Health Reminders - Assess BMI satisfied 11/07/2023. - Assess Need for CT Lung Screen satisfied 11/07/2023. - Assess Tobacco Use satisfied 11/07/2023. - Depression Screening satisfied 11/07/2023. - Follow up plan for Depression Screening satisfied 11/07/2023. * Progress note Date Encounter Last Documented by 10/08/2023 PAIN MANAGEMENT FOLLOW UP Last d ocumented on 10/08/2023; 1:55 PM, FELISHA ROTHMAN ANP-; [facility] Active Problems & Conditions - Chronic Pain Syndrome Chief Complaint The Chief Complaint is: 3 MO FU. History of Present Illness - Allergy list reviewed - Problem list reviewed - Medication reconciliation performed - Medication list reviewed - Prescription Drug Monitoring Program website checked. 09/08/23 - How much of the medication are you taking a day? QID - Last dose of medication? 11 AM - Last drug screen appropriate 07/31/23 Discussion: Ms. Mcnulty returns in follow-up for medication management as well as further discussion of spinal cord stimulation for intractable low back pain with lower extremity. She has discussed option for spinal cord stimulation with Dr. Singleton and met necessary requirements of psychological evaluation and meeting with the [employer] provider service representative. Psychological evaluation revealed no barriers to [...] will need a refill of hydrocodone today. [place] JET OPERATOR appropriate. Last UDS appropriate, this will be repeated today. Past note 07/12/23 (Dr. Singleton): Patient returns in follow-up to discuss spinal [...] simulation trial under fluoroscopic guidance. Of note, [place] prescription monitoring database was reviewed and found [...] week to further discuss this with Dr. Singleton. Hydrocodone is used 4 times per day with modest benefit. She would like to continue this medication. She denies any side effects. Last UDS appropriate. We will repeat this today. [facility] appropriate. She has exhibited no signs [...] Medication allows her to maintain function levels. [place] JET OPERATOR is appropriate. UDS was appropriate Past note: [...] S1. Spondylosis has slightly worsened since 2016 Test Conclusions PHQ-9 Score: 13 Date: 10/08/23 BPI Score: Date: MiDAS Score: Date: SOAPP-R Score: 8 LOW Date: 10/08/23 CHARLES Score: 54% Date:10/08/23 Past Medical/Surgical History Reported: Medical: Currently wearing [...] a day 30 days, 0 refills - Famotidine 20 MG Oral Tablet One tablet twice a day 30 days, 0 refills - Lisinopril 40 MG Oral Tablet One tablet daily 90 days, 0 refills - Metoprolol Succinate ER 200MG Oral Tablet Extended Release 24 Hour 200 MG 0 days, 0 refills - NIFEdipine ER 30 MG Oral Tablet Extended Release 24 Hour One tablet daily 30 days, 0 refills - Venlafaxine HCl 75MG Oral Tablet 75 MG 0 days, 0 refills - Vitamin D (Ergocalciferol) 1.25 MG (76703 UT) Oral Capsule as directed 28 days, 0 refills Social History Tobacco use: [...] . Allergies - Adhesive Tape 1 x5yd Family History Father Hypertension Mother Gun Shot Wound Kidney disease Review Of Systems Systemic: No systemic symptoms other than noted. Feeling tired. No fever, no chills, and no recent weight change. Head: Headache chronic/recurring. Neck: Neck pain. Cardiovascular: No chest pain or discomfort. Pulmonary: No dyspnea. Gastrointestinal: No gastrointestinal symptoms other than noted. Endocrine: No endocrine symptoms other than noted. Hematologic: No easy bleeding and no tendency for easy bruising. Musculoskeletal: Lower back pain, muscle aches, pain localized to one or more joints, and joint swelling localized to one or more joints. Neurological: No fainting passing out with needles or medical procedures, no motor disturbances, and no sensory disturbances. Psychological: Feeling nervous and depression. Skin: No skin symptoms other than noted and no rash. Physical Findings - Vitals taken 10/08/2023 01:09 pm BP-Sitting R 140/96 mmHg Pulse Rate-Sitting 79 bpm Temp-Temporal 96.4 F Height 65 in Weight 218 lbs Body Mass Index 36.3 kg/m2 Body Surface Area 2.1 m2 Pain Level 9 Pain Level Note LOW BACK AND LEFT FOOT Oxygen Saturation 92 % Musculoskeletal System: General/bilateral: Musculoskeletal Scales: Value Lumbar oswestry score 54% 27 Psychiatric: Psychiatric: Value PHQ9 score: 13 Constitutional: Well developed. Well nourished. In no acute distress. HEENT: NC/AT. Anicteric. Clear Conjunctiva. PERRLA. MM's pink/moist. No lesions of nasal mucosa. CVS: Peripheral pulses palpable in all extremities. Spine/MSK: Tenderness bilateral lumbar facet joints. Positive facet loading bilaterally, R>L. Positive SLR on right. Decrease lumbar range of motion and extension and rotation bilaterally. Tenderness bilateral SI joints, R>L. Gait: Not antalgic. No steppage gait. No Trendelenburg gait. No circumspected gait pattern. Heel walk normal. Toe walk normal. Tandem gait normal. Neuro: Awake. Alert. Oriented x3. DTR's intact in all extremities. DTR's equal in all extremities. No focal neurologic deficit. [id number]-[id number]-[id number] normal bilaterally. Babinski downgoing. Psych: No apparent distress. Mood normal. Affect normal. No pain behaviors. Skin: No rash. Normal pigmentation. Normal temperature Tests Educational Testing: Questionnaires PHQ-9: Value SOAPP-R: total score 8 Assessment - Systemic lupus erythematosus [M32.9 - Systemic lupus erythematosus, unspecified] - Sacroiliitis [M46.1 - Sacroiliitis, not elsewhere classified] - Lumbar spondylosis with radiculopathy [M47.26 - Other spondylosis with radiculopathy, lumbar region] - Lumbar stenosis with neurogenic claudication [M48.062 - Spinal stenosis, lumbar region with neurogenic claudication] - Fibromyalgia [M79.7 - Fibromyalgia] - Chronic pain syndrome [G89.4 - Chronic pain syndrome] - group home use of opiate analgesic [Z79.891 - group home (current) use of opiate analgesic] Counseling/Education - Pill Count: two HYDROCODONE Discussed Recommend CBT for chronic pain/depression Patient is on chronic opioid therapy and tolerating well with no report of adverse symptoms or side effects. Patient reports improvement in pain and functional capacity. Objective measures of pain interference and physical functioning show clinically significant benefit from therapy. Patient expresses understanding of safe and appropriate use of opioids for analgesia. and demonstrates the same. Random pill counts and urine drug screens have been appropriate. This and review of the [facility] database shows no evidence of misuse, abuse, diversion or signs of addiction/use disorder. Patient advised of risks and benefits of medication including the development of tolerance, dependence, withdrawal, addiction, constipation/obstipation, itching, allergic reactions, sedation, worsening depression/anxiety, hormonal perturbations, cognitive impairment or impairment in judgement, psychomotor slowing/impairment, intoxication, injury/accident, DWI/DUI, respiratory depression or failure, development of hyperalgesia, overdose and . Patient is aware that the combination of opioid medications in any form, whether used over the short term or chronically, with other sedative or psychoactive medication including but not limited to benzodiazepines, muscle relaxants, THC, alcohol, hypnotics/sleep medications or other illicit drugs can result in an increased risk of overdose and and is discouraged. Patient is aware that in all cases the lowest effective dose of opioids should be used and doses should be weaned as tolerated as pain improves. Opioid consent form and patient-physician agreement have been reviewed with the patient with all questions satisfactorily elicited asked and answered. These documents have been signed, witnessed and entered into the patient record with a copy provided to the patient. Patient understands that violation of this agreement could result in discontinuation of controlled substances including opioids and possible dismissal from the practice. Patient was further instructed today on taking medication correctly; storing medication securely; disposing of medication properly. Patient was warned against sharing medication and escalating doses without the prescribing provider's knowledge and instruction. Patient was instructed to call the office directly for refills of any controlled substance 4-5 days in advance to avoid unnecessary delays or disruptions in their dosing.. Risks, benefits and alternatives (including doing nothing) were discussed with the patient who agreed to proceed despite risk and agreement that potential benefits outweighs the chance of significant harm. Recommend spinal cord stimulator trial F/U post procedure Plan StartCited - Chronic pain syndrome Referral: Counselor Instructions: Vinnie Serra- [facility] CBT therapy EndCited StartCited - Fibromyalgia Pregabalin 200 MG capsule TAKE 1 CAPSULE BY MOUTH TWICE DAILY, 30 days, 2 refills EndCited StartCited - group home (current) use of opiate analgesic Lab: PRESCRIBED DRUGS, medMATCH(R) Lab: DRUG MONITORING, PANEL 6 WITH CONFIRMATION, URINE EndCited StartCited - Other spondylosis, lumbar region HYDROcodone-Acetaminophen 5-325 MG tablet 1 every 6 hours as needed for severe pain, max 4/day, 30 days, 0 refills EndCited StartCited - Spinal stenosis, lumbar region with neurogenic claudication Pain Management CPT: Electrode placement- nuerostim Instructions: consent for spinal cord stimulator trial EndCited Practice Management Use of tobacco assessment performed Falls risk assessment not documented patient refused Review of medications documented; Standardized depression screening: positive for symptoms and for adult impression and score 13. Results of this interaction were communicated directly to the patient's referring and/or primary care provider. All imaging studies and test results discussed in the above document were personally reviewed and evaluated by the performing provider. For all patients on acute or chronic opioids, ongoing need for opioid analgesia is assessed at each visit with consideration of discontinuation or wean to lowest effective dose when possible and appropriate. Contents of this document have been edited for correctness, but may be subject to typographical or electronic court recorder errors. Verify all diagnoses, medications, dosages, and patient instructions with patient and/or the originator of this document. Health Reminders - Assess BMI satisfied 10/08/2023. - Assess Need for CT Lung Screen satisfied 10/08/2023. - Assess Tobacco Use satisfied 10/08/2023. - Depression Screening satisfied 10/08/2023.
[2024-10-01] MEDS: ACETAMINOPHEN 500 MG TABLET 1000 MG PO (06:35)
[2024-10-01] MEDS: LACTATED RINGERS 1,000 ML 30 ML IV CONT ×2 (06:45→09:50)
--- NOTE | 2024-10-01 06:49 | WPDHPUPDATE1 ---
History and Physical Update Update Date/Time: 10/01/24 06:49 History and Physical has been reviewed, including an updated exam of the patient. There are NO changes in the patient's condition. Risks, benefits, and alternatives have been discussed and questions answered. Patient agrees to proceed with procedure.
[2024-10-01] MEDS: TRANEXAMIC ACID 1,000MG/ISO100 1,000 MG/100 ML BAG 200 MG IVPB (06:50)
[2024-10-01] MEDS: VANCOMYCIN 1,500 MG/NS 500 ML BAG 250 MG IVPB (06:55)
--- NOTE | 2024-10-01 07:22 | WPDANESEPPF ---
Anes - Initial Pre Proc Eval Procedure: Operation Date: 10/01/24 07:30 Proposed Procedures p Revision Left Total Knee Arthroplasty - Ankur Espinal MD Date/Time: 10/01/24 07:22 Surgeon: Ankur Espinal MD Pre Op Diagnosis: Failed Left Total Knee Patient Data Age: 54 Gender: F Height: 1.66 m Weight: 105.3 kg Last Vital Signs Temp 36.6 C 09/16/24 14:24 Pulse 80 09/16/24 14:24 Resp 16 09/16/24 14:24 BP 149/84 H 09/16/24 14:24 Pulse Ox 97 09/16/24 14:24 O2 Del Method Room Air 09/16/24 14:24 Allergies Allergy/AdvReac Type Severity Reaction Status Date / Time meperidine AdvReac Severe HEADACHE Verified 10/01/24 06:28 scopolamine AdvReac Severe Headache Verified 10/01/24 06:28 adhesive tape AdvReac Unknown Rash, Verified 10/01/24 06:28 REDNESS, BURNING silver (From [employer] AdvReac BLISTER/REDNESS Verified 10/01/24 06:28 Mesh) AT SITE Home Medications ?Medication ?Instructions ?Recorded ?Confirmed ?Type venlafaxine 225 mg tablet,extended 225 mg PO QAM 10/13/19 10/01/24 History release 24 hr aripiprazole 2 mg tablet 2 mg PO QAM 07/09/23 10/01/24 History buspirone 15 mg tablet 15 mg PO TID 07/09/23 10/01/24 History famotidine 20 mg tablet 20 mg PO QAM 10/11/23 10/01/24 History ferrous sulfate 325 mg (65 mg 325 mg PO DAILY 10/11/23 10/01/24 History iron) tablet (FeroSul) hydroxyzine HCl 50 mg tablet 100 mg PO HS 10/11/23 10/01/24 History ketoconazole 2 % topical cream 1 applic topical DAILY 10/11/23 09/16/24 History lisinopril 40 mg tablet 40 mg PO QAM 10/11/23 10/01/24 History multivitamin 1 tablet PO DAILY 10/11/23 10/01/24 History nifedipine 30 mg tablet,extended 30 mg PO QAM 10/11/23 10/01/24 History release trazodone 150 mg tablet 150 mg PO HS 10/11/23 10/01/24 History vitamin E 1,000 unit tablet 1 tablet PO DAILY 10/11/23 10/01/24 History acetaminophen 500 mg capsule 1,000 mg (2 x 500 mg) PO Q6H PRN 04/27/24 09/16/24 Rx pain #20 caps albuterol sulfate 90 mcg/actuation 2 puff inhalation Q4-6H PRN 09/16/24 09/16/24 History aerosol inhaler shortness of breath or wheezing bupropion HCl 150 mg 24 hr tablet, 150 mg PO .MORNING 09/16/24 10/01/24 History extended release meloxicam 15 mg tablet 15 mg PO QAM PRN pain 09/16/24 10/01/24 History metoprolol succinate 100 mg 100 mg PO HS 09/16/24 10/01/24 History tablet,extended release 24 hr mirtazapine 15 mg tablet 15 mg PO HS 09/16/24 10/01/24 History omeprazole 40 mg capsule,delayed 40 mg PO QAM 09/16/24 10/01/24 History release ondansetron HCl 8 mg tablet 8 mg PO Q12H PRN nausea and 09/16/24 09/16/24 History vomiting Patient hx anesthesia problems: none Family hx anesthesia problems: none Results Review: All pre-operative results and documents have been reviewed as part of the pre-operative evaluation. [facility] Past Medical History Medical History Iron deficiency anemia History of blood transfusion. Hypertension Systemic lupus erythematosus Gastroesophageal reflux disease Thyroid disease Depression Breast cancer Status post bilateral mastectomy and chemo radiation. Sepsis Surgical History Surgical History History of knee surgery 11/08/23- Rev right TKA History of arthroplasty of right knee History of hysterectomy History of repair of right rotator cuff History of arthroscopy of right knee Status post trigger finger release History of fusion of cervical spine Status post transverse rectus abdominis muscle flap breast reconstruction History of endoscopic sinus surgery History of bilateral mastectomy History of appendectomy History of cholecystectomy History of carpal tunnel release Port-A-Cath in place Family History Family History Other Family history of malignant neoplasm Hypertension Social History Social History Social History: Surrogate medical decision maker: Domingo Mcnulty, spouse. Code status: Full code. Smoking status: Never smoker Second hand tobacco smoke exposure: No Additional smoking assessment comments: chewed tobacco occassionally as a teen Alcohol intake: never Substance use: never Substance use type: does not use Do You Feel Safe in your Home?: Yes Lack of Transportation: No Lack of Food: Never True Current Housing: I Have Housing Concerned About Future Housing: No Difficulty Paying Gas/Electric Bills: No Difficulty Paying for Meds: No Currently Unemployed: No Education: High School Diploma/GED Difficulty w/ Childcare or Family Care: No Living arrangements: with family Additional living arrangements comments: Lives with spouse. Grandson lives with them Occupation/Education: unemployed Spiritual care concerns: No Anes - Eval Final PreProcedure Day of Procedure 10/01/24 07:22 Patient weight: obese Heart: regular rate and rhythm Lungs: clear to auscultation Airway: Mallampati scale class II Neurological: alert and oriented Last oral intake: >/= 8 hours ASA classification: III Emergent: no Anesthetic plan: proceed Anesthesia type and monitoring: general LMA and standard monitoring Results Review: All pre-operative results and documents have been reviewed as part of the pre-operative evaluation. Informed Consent: The patient's anesthetic plan and its attendant risks and benefits were discussed with the patient/family/POA. Questions were solicited and answers provided to the satisfaction of the patient/family/POA.
[2024-10-01] MEDS: ceFAZolin 2 GM/D5W 50 ML 2 GM/50 ML BAG IVPB ×3 (07:27→23:13)
[2024-10-01] MEDS: SODIUM CHLORIDE 0.9% IV 37.7 ML, MORPHINE SULFATE INJ (*CRX) 2 MG, ROPivacaine HCL 1% 2... INFILTRATE (08:02)
[2024-10-01] MEDS: ceFAZolin SODIUM 1 GM VIAL 2 GM IV PUSH (08:22)
--- NOTE | 2024-10-01 08:27 | P.OP_ITS ---
Procedure Note - Detailed Date of Procedure 10/01/24 Pre-op Diagnosis Failed Left Total Knee Post-op Diagnosis Same Procedure Performed Revision left total knee arthroplasty Surgeon Ankur Espinal MD Balance Recesser Chaitanya Anesthesia General Description of Procedure Patient brought to operating room 7. A general anesthetic was administered. She was sterilely prepped and draped in usual manner. A longitudinal incision made through the old incision. Dissection carried down to the fascia. A medial parapatellar incision made and the patella subluxated laterally. The plastic was removed. The knee opened several millimeters. The knee was debrided of the scarring in the area. Thoroughly irrigated. At this point the size 14 was trialed. This still seemed loose. I went to a 16, which seemed very stable. The size 16 was opened and impacted into place. This gave excellent motion in both flexion and extension, and good stability in both flexion and extension. The wounds were thoroughly irrigated, hemostasis obtained, and closed with #2 Vicryl #1 Quill, 2-0 Vicryl and hollie. A sterile dressing applied. The patient tolerated procedure well and left the operating room in satisfactory condition. Estimated Blood Loss 100 Complications No immediate complications Condition Stable Disposition PACU [facility] Billing Surgery - Charge Forward: Surgery Billing ([id number] Revision TKA 1 component)
[2024-10-01] MEDS: LABETALOL HCL INJ 100 MG/20 ML VIAL IV PUSH (09:12)
--- NOTE | 2024-10-01 09:12 | WPDANESPNB ---
Anes - Peripheral Nerve Block Date/Time: 10/01/24 09:12 I have discussed with the patient/family/POA the placement of a peripheral nerve block for post-operative pain management, including associated risks, benefits, complications, and side effects. Alternative methods of post-operative analgesia were detailed. Questions were solicited and answers provided to the satisfaction of the patient/family/POA. Time-Out: A pre-procedural Time-Out was completed immediately before starting the procedure and confirmed: Patient Identification, Site, Procedure, Patient Position and the Availability of Requisite Equipment. Clinical Indications: Acute post-operative pain management requested by the operative surgeon. Nerve Block Insertion Note Anes-nerve block: adductor canal left Patient position: supine Skin prep: chlorhexidine Needle: 22 gauge, stimulating, insulated echogenic needle. Needle length: 80 mm Technique: ultrasound Technique comment: done in Pacu Injectate: bupivacaine 0.5% with epi 5 mcg/ml (30ml no epi) Observations: tolerated well Complications: none Procedure start time:: 902 Procedure end time:: 909
[2024-10-01] MEDS: fentaNYL CITRATE INJ (*CRX) 100 MCG/2 ML VIAL 25 MCG IV PUSH ×8 (09:18→10:02)
[2024-10-01] MEDS: HYDROmorphone HCL INJ (*CRX) 1 MG/ML SYR 0.5 MG IV PUSH ×4 (09:38→09:54)
[2024-10-01] MEDS: diphenhydrAMINE HCl INJ 50 MG/ML VIAL 25 MG IV PUSH (10:12)
--- NOTE | 2024-10-01 11:52 | P.CONIM_ITS ---
Assessment and Plan Assessment and plan (1) Failed total left knee replacement: Qualifiers: Encounter type: sequela Qualified Code(s): T84.093S - Other mechanical complication of internal left knee prosthesis, sequela Code(s): T84.093A - Other mechanical complication of internal left knee prosthesis, initial encounter Status: Acute Assessment and Plan: - ambulate with assistance and up to chair - use IS - neurovasc checks - see order for intervals - SCDs/ TEDs - resume diet - analgesics and antiemetics p.r.n. - monitor labs in AM - CBC and BMP - bowel regimen: docusate/senna, polyethylene glycol - maintenance fluids: NS 125 mL/hr x8 hrs - PT/OT (2) Iron deficiency anemia: Qualifiers: Iron deficiency anemia type: unspecified iron deficiency Qualified Code(s): D50.9 - Iron deficiency anemia, unspecified Code(s): D50.9 - Iron deficiency anemia, unspecified Status: Chronic Assessment and Plan: - Hgb 12.9, MCHC 32.3, MCV 86.0 - continue home medications: Ferrous sulfate 325 mg daily - trend (3) Hypertension: Qualifiers: Hypertension type: primary hypertension Qualified Code(s): I10 - Ess ential (primary) hypertension Code(s): I10 - Essential (primary) hypertension Status: Chronic Assessment and Plan: - chronic, currently you 147/94 - continue home medications: Lisinopril 40 mg daily, metoprolol XL 100 mg daily, nifedipine 30 mg daily - monitor Plan Diet: Regular GI Prophylaxis: Famotidine p.o. DVT Prophylaxis: SCDs, LISA, Xarelto starting on 10/01/2024 Lines: Peripheral Code Status: Full code HPI Date of Consult Consult date: 10/01/24 Requesting Physician: Ankur Espinal MD Primary Care Provider: Key TolliverManan Consult Narrative Reason for consult: Medical Managment Narrative: 54 y/o F presents here for surgical management of her failed left knee arthroplasty with PMH of iron deficiency anemia, hypertension, systemic lupus erythematosus, hypothyroidism (hx of, no longer on meds), depression, and breast cancer s/p bilateral mastectomy/chemo/radiation. The patient reports she has had ongoing left knee pain and instability. She has previously underwent a total left knee arthroplasty in 2014 and a total right knee arthroplasty in 2016. In both her previous arthroplasties failed. She initially had her right knee revised in January 2024. Despite conservative treatment including PT, steroid injections, and a course of oral steroids. Despite these treatments she continues to have pain. Left knee has also been unstable. Pain is now interfering with using stairs and certain movements would cause pain just to ambulate. The patient has elected to move forward with a revision of her left total knee arthroplasty. She underwent this operation on 10/01/2024 with Teddy MABRY. Postoperatively she reports mild nausea which she reports is typical for her after surgery. She denies numbness She denies any recent changes to her medical history or medications. Preop VS: He 7.8? F, HR 80, RR 16, 149/84, and 97% on RA. Preop workup: No leukocytosis, no anemia, creatinine 0.8 to and GFR >60, A1c 6.3 %, and MRSA PCR negative. Review of Systems Review of Systems: All systems reviewed & are unremarkable except as noted in HPI and below PMFSH Past Medical History Medical History Hypothyroidism, unspecified hx of, no longer on medications Hearing loss Gastroesophageal reflux disease History of breast cancer s/p bilateral mastectomy, chemo, radiation History of revision of total replacement of right knee joint Systemic lupus erythematosus Eczema Pancreatitis COPD (chronic obstructive pulmonary disease) Asthma Migraines Iron deficiency anemia History of blood transfusion. Hypertension Depression Sepsis Surgical History Surgical History History of knee replacement procedure of right knee History of knee surgery 11/08/23- Rev right TKA History of hysterectomy History of repair of right rotator cuff Status post trigger finger release History of fusion of cervical spine Status post transverse rectus abdominis muscle flap breast reconstruction History of endoscopic sinus surgery History of bilateral mastectomy History of appendectomy History of cholecystectomy History of carpal tunnel release Port-A-Cath in place Family History Family History Other Family history of malignant neoplasm Hypertension Social History Social History Social History: Surrogate medical decision maker: Domingo Mcnulty, spouse. Code status: Full code. Smoking status: Never smoker Second hand tobacco smoke exposure: No Additional smoking assessment comments: chewed tobacco occassionally as a teen Alcohol intake: never Substance use: never Substance use type: does not use Do You Feel Safe in your Home?: Yes Lack of Transportation: No Lack of Food: Never True Current Housing: I Have Housing Concerned About Future Housing: No Difficulty Paying Gas/Electric Bills: No Difficulty Paying for Meds: No Currently Unemployed: No Education: High School Diploma/GED Difficulty w/ Childcare or Family Care: No Living arrangements: with family Additional living arrangements comments: Lives with spouse. Grandson lives with them Occupation/Education: unemployed Spiritual care concerns: No Meds Home Medications and Allergies Home Medications ?Medication ?Instructions ?Recorded ?Confirmed ?Type venlafaxine 225 mg tablet,extended 225 mg PO QAM 10/13/19 10/01/24 History release 24 hr aripiprazole 2 mg tablet 2 mg PO QAM 07/09/23 10/01/24 History buspirone 15 mg tablet 15 mg PO TID 07/09/23 10/01/24 History famotidine 20 mg tablet 20 mg PO QAM 10/11/23 10/01/24 History ferrous sulfate 325 mg (65 mg 325 mg PO DAILY 10/11/23 10/01/24 History iron) tablet (FeroSul) hydroxyzine HCl 50 mg tablet 100 mg PO HS 10/11/23 10/01/24 History ketoconazole 2 % topical cream 1 applic topical DAILY 10/11/23 09/16/24 History lisinopril 40 mg tablet 40 mg PO QAM 10/11/23 10/01/24 History multivitamin 1 tablet PO DAILY 10/11/23 10/01/24 History nifedipine 30 mg tablet,extended 30 mg PO QAM 10/11/23 10/01/24 History release trazodone 150 mg tablet 150 mg PO HS 10/11/23 10/01/24 History vitamin E 1,000 unit tablet 1 tablet PO DAILY 10/11/23 10/01/24 History acetaminophen 500 mg capsule 1,000 mg (2 x 500 mg) PO Q6H PRN 04/27/24 09/16/24 Rx pain #20 caps albuterol sulfate 90 mcg/actuation 2 puff inhalation Q4-6H PRN 09/16/24 09/16/24 History aerosol inhaler shortness of breath or wheezing bupropion HCl 150 mg 24 hr tablet, 150 mg PO .MORNING 09/16/24 10/01/24 History extended release meloxicam 15 mg tablet 15 mg PO QAM PRN pain 09/16/24 10/01/24 History metoprolol succinate 100 mg 100 mg PO HS 09/16/24 10/01/24 History tablet,extended release 24 hr mirtazapine 15 mg tablet 15 mg PO HS 09/16/24 10/01/24 History omeprazole 40 mg capsule,delayed 40 mg PO QAM 09/16/24 10/01/24 History release ondansetron HCl 8 mg tablet 8 mg PO Q12H PRN nausea and 09/16/24 09/16/24 History vomiting Allergies Allergy/AdvReac Type Severity Reaction Status Date / Time meperidine AdvReac Severe HEADACHE Verified 10/01/24 06:28 scopolamine AdvReac Severe Headache Verified 10/01/24 06:28 adhesive tape AdvReac Unknown Rash, Verified 10/01/24 06:28 REDNESS, BURNING silver (From [employer] AdvReac BLISTER/REDNESS Verified 10/01/24 06:28 Mesh) AT SITE Vital Signs Vital Signs - 24 hr 10/01/24 06:06 10/01/24 08:52 10/01/24 09:05 Temperature 98.3 F 97.0 F L Pulse Rate 75 79 89 Respiratory Rate 18 18 20 Blood Pressure 149/97 H 182/99 H 187/110 H Pulse Oximetry 97 100 100 Oxygen Delivery Room Air Simple Face Mask Simple Face Mask Oxygen Flow Rate 8 8 10/01/24 09:12 10/01/24 09:20 10/01/24 09:35 Temperature Pulse Rate 76 85 89 Respiratory Rate 18 20 Blood Pressure 174/101 H 184/95 H Pulse Oximetry 99 100 Oxygen Delivery Simple Face Mask Nasal Cannula Oxygen Flow Rate 8 3 10/01/24 09:50 10/01/24 10:05 10/01/24 10:20 Temperature Pulse Rate 89 86 91 Respiratory Rate 16 12 12 Blood Pressure 181/104 H 178/104 H 153/92 H Pulse Oximetry 99 93 95 Oxygen Delivery Nasal Cannula Nasal Cannula Nasal Cannula Oxygen Flow Rate 3 3 3 10/01/24 10:35 Temperature Pulse Rate 87 Respiratory Rate 12 Blood Pressure 147/94 H Pulse Oximetry 95 Oxygen Delivery Nasal Cannula Oxygen Flow Rate 3 Exam Const: General: comfortable and no acute distress Other: , female, nontoxic appearance HENMT: Face/Nose/Sinus: Normal nares present Mouth: Yes moist mucous membranes Eyes: General: appearance normal, both eyes and all related structures Sclera: sclerae normal Pupils: Equal, round and reactive pupils present EOM: EOMs intact bilaterally Neck: Other: more prominent right clavicle, no other abnormalities. Resp: Effort & Inspection: normal respiratory effort Auscultation: clear to auscultation bilaterally Cardio: Rate: regular rate Rhythm: regular rhythm Other: S1-S2 present without murmur, rub, ectopy GI: Other: abdomen mildly tight, normoactive BS in all quads. mild epigastric tenderness. Neuro: Speech: normal speech Motor exam (neuro): 5/5 motor strength present throughout Sensory Exam: normal sensation Other: A&O x4 Extrem: General: normal exam except as noted Other: tenderness over left knee. +swelling to left ankle. Psych: Mental Status: mental status grossly normal Affect: normal affect Other: Good insight and judgment, pleasant Quality VTE Prophylaxis VTE prophylaxis: mechanical ordered and pharmacologic ordered Hospitalist [facility] Advance Care Plan I have confirmed that the patient's Advanced Care Plan is present, code status is documented, or surrogate decision maker is listed in patient medical record.: Yes Medication Reconciliation I have utilized all available resources to obtain, update and review the patients current medications (includes all prescriptions, OTC, herbals, cannabis, and nutritional supplements).: Yes
[2024-10-01] MEDS: FAMOTIDINE 20 MG TABLET PO (14:01)
[2024-10-01] MEDS: SENNA/DOCUSATE SODIUM TABLET 2 TAB PO ×2 (14:01→17:49)
[2024-10-01] MEDS: ARIPiprazole 2 MG TABLET PO (14:01)
[2024-10-01] MEDS: busPIRone HCL 5 MG TABLET 15 MG PO ×2 (14:02→17:49)
[2024-10-01] MEDS: HYDROcodone/acetaminophen (*CRX) 7.5-325 MG TABLET 1 TAB PO ×2 (14:03→20:35)
[2024-10-01] MEDS: SODIUM CHLORIDE 0.9% IV 1,000 ML 125 ML IV CONT (14:06)
[2024-10-01] MEDS: ONDANSETRON INJ 4 MG/2 ML VIAL IV PUSH ×2 (14:22→18:22)
[2024-10-01] MEDS: IBUPROFEN IV 800 MG/200 ML 800 MG/200 ML BAG 400 MG IVPB (17:45)
[2024-10-01] MEDS: CELECOXIB 200 MG CAPSULE PO (17:49)
[2024-10-01] MEDS: RIVAROXABAN 10 MG TABLET PO (17:50)
[2024-10-01] MEDS: METOPROLOL SUCCINATE EXT REL 100 MG TABCR PO (20:34)
[2024-10-01] MEDS: MIRTAZAPINE 15 MG TABLET PO (20:35)
[2024-10-01] MEDS: HYDROmorphone HCL INJ (*CRX) 1 MG/ML SYR IV PUSH (23:13)
[2024-10-02] VITALS (11 sets, daily range): BP systolic 139–172; BP diastolic 69–92; PULSE 67–85; RESP 14–20; TEMP 36.1–36.9; O2SAT 92–98
--- NOTE | ~2024-10-02 | XR_ITS ---
EXAMINATION: [id number] DATE: 10/01/2024 10:07 INDICATION: Postoperative evaluation following left total knee arthroplasty. TECHNIQUE: Anteroposterior and lateral views of the left knee were obtained. COMPARISON: None. FINDINGS: Left total knee arthroplasty with patellar resurfacing appears well seated and in near anatomic align ment. No fractures identified. Anterior skin hollie and expected small amount of postoperative subc utaneous and intra-articular gas. IMPRESSION: 1. Left total knee arthroplasty, negative for postoperative purposes. Reviewed, dictated and finalized at location B. E PREVENTION WORKER
--- NOTE | ~2024-10-02 | XR_ITS ---
CHEST RADIOGRAPH, PA AND LATERAL CLINICAL HISTORY: right upper chest/neck pain, SWELLING . COMPARISON: 04/18/2023 TECHNIQUE: PA and lateral views of the chest. FINDINGS The cardiomediastinal silhouette is unremarkable. The lungs are clear. Visualized osseous structures and soft tissues are unremarkable. IMPRESSION: No focal infiltrate or effusion. Reviewed, dictated and finalized at location A. SUPERVISOR
--- NOTE | ~2024-10-02 | CT_ITS ---
EXAMINATION: CTA chest PE protocol DATE: 10/03/2024 10:59 INDICATION: Right neck pain. Shortness of breath. TECHNIQUE: Computed tomography angiography (CTA) of the chest was performed with 100 mL Omnipaque-350 intravenous contrast timed to evaluate the pulmonary arteries. Coronal maximum intensity projection 3D-reconstructions were created by the technologist. Automated exposure control and iterative reconst ruction technique were employed. The dose-length product was 1425.80 mGy-cm. COMPARISON: Chest CT 05/09/2024 FINDINGS: The lungs demonstrate mild atelectasis. A calcified left lung nodule and calcified left hil ar lymph nodes are consistent with old granulomatous disease. No pleural effusion. The heart size is normal. No pericardial effusion. There are bilateral breast implants. There are changes of cholecyste ctomy. There is diffuse hepatic steatosis. There is no pulmonary embolus. There is a total left shoul pan arthroplasty. There is mild thoracic spondylosis. IMPRESSION: 1. No pulmonary embolus. 2. Diffuse hepatic steatosis. Reviewed, dictated and finalized at location A. BASE COORDINATOR
--- NOTE | ~2024-10-02 | CT_ITS ---
EXAMINATION: CT soft tissue neck w con DATE: 10/03/2024 10:59 INDICATION: Right neck pain. TECHNIQUE: Computed tomography (CT) of the neck was performed with 100 mL Omnipaque-350 intravenous c ontrast. Automated exposure control and iterative reconstruction technique were employed. The dose-le ngth product was 1425.80 mGy-cm. COMPARISON: None FINDINGS: The major salivary glands are normal. There are no pathologically enlarged lymph nodes. Jaqueline ast implants are noted. The pharynx and larynx are normal. There is a total left shoulder arthroplast y. The paranasal sinuses are clear. The mastoid air cells are normal. There is a disc replacement at C5-C6. There is mild cervical spondylosis. IMPRESSION: 1. No specific etiology for the patient's symptoms. Reviewed, dictated and finalized at location A. ING BALL GRADER
[2024-10-02] MEDS: HYDROmorphone HCL INJ (*CRX) 1 MG/ML SYR IV PUSH ×4 (02:37→20:42)
--- NOTE | 2024-10-02 07:19 | PN_ITS ---
This report was moved to the correct visit on 10/08/2024. The original report was signed by Ankur Espinal MD on 10/02/24718. Progress Note: A&P Assessment and Plan (1) History of revision of total replacement of left knee joint: Code(s): Z96.652 - Presence of left artificial knee joint Status: Acute Assessment and Plan: Patient underwent 2 revision of 1 component of the of her left total knee arthroplasty for instability. She has progressed normally postoperatively it can be dismissed home. Subjective Subjective Date/Time Seen: 10/02/24 07:17 Post Op day: 1 Principal diagnosis: Total knee arthroplasty revision left Review of Systems Musculoskeletal: Musculoskeletal: Reports arthralgias, Reports joint swelling and Reports stiffness Exam Narrative: Patient wiggles toes. Appears to be neurologically intact. Is able ambulate with a walker. Dressing is intact. Please be advised this is a medical document. It is intended for [id number] communication. It is written in medical language and may contain unfamiliar abbreviations or verbiage. Medical documents are intended to carry relevant information, facts as evident, and the clinical opinion of the practitioner at the time of the encounter. This report may have been done utilizing a voice recognition system. Attempts have been made to correct errors. However, there may be uncorrected grammatical, spelling, and recognition errors present. The file time of this note does not necessarily represent the time the patient was seen. Report Initialized date/time: Ankur Espinal MD 10/02/24718 Electronically signed by: Ankur Espinal MD 10/02/24718 [facility]
[2024-10-02 07:30] LABS: Basophils Percent Auto 0.4 % (0.2-1.2); Eosinophils Absolute Auto 0.1 K/mm3 (0-0.3); Eosinophils Percent Auto 0.6 % (0-4.4); Hematocrit 35.1 % (37.0-47.0); Hemoglobin 10.9 g/dL (12.0-15.0); Immature Granulocyte Absolute 0.04 K/mm3 (0.00-0.031); Immature Granulocyte Percent A 0.4 % (0-0.5); Lymphocytes Absolute Auto 2.98 K/mm3 (0.9-3.2); Mean Corpuscular HGB Conc 31.1 g/dl (32-36); Mean Corpuscular Volume 86.9 fl (80-100); Mean Platelet Volume 8.7 fl (7.4-10.4); Monocytes Percent Auto 10.5 % (2.6-8.5); Neutrophils Absolute Auto 5.5 K/mm3 (1.3-6.7); Neutrophils Percent Auto 57.1 % (45.5-73.1); Platelet Count Result 248 k/mm3 (150-375); Red Blood Count 4.04 M/mm3 (4.2-5.4); Red Cell Distribution Width 15.8 % (11.5-14.5); White Blood Count 9.6 K/mm3 (4.5-10.0)
[2024-10-02 07:38] LABS: Anion Gap 10 mmol/L (4-12); Blood Urea Nitrogen 7 mg/dL (7-17); Calcium 8.5 mg/dL (8.4-10.2); Carbon Dioxide 25 mmol/L (22-30); Chloride 104 mmol/L (98-107); Estimated CRCL calculation 96 ml/min; Estimated Glomerular Filt Rate > 60; Glucose 117 mg/dL (65-110); Potassium 3.6 mmol/L (3.4-5.0); Sodium 139 mmol/L (137-145)
[2024-10-02] MEDS: VENLAFAXINE HCL XR 75 MG CAP.ER.24H 225 MG PO (08:34)
[2024-10-02] MEDS: ceFAZolin 2 GM/D5W 50 ML 2 GM/50 ML BAG IVPB (08:34)
[2024-10-02] MEDS: polyethylene glycoL 3350 17 GM POWD.PACK PO (08:34)
[2024-10-02] MEDS: busPIRone HCL 5 MG TABLET 15 MG PO ×3 (08:35→18:46)
[2024-10-02] MEDS: lisinopriL 20 MG TABLET 40 MG PO (08:35)
[2024-10-02] MEDS: ARIPiprazole 2 MG TABLET PO (08:35)
[2024-10-02] MEDS: FAMOTIDINE 20 MG TABLET PO (08:35)
[2024-10-02] MEDS: CELECOXIB 200 MG CAPSULE PO ×2 (08:38→18:46)
[2024-10-02] MEDS: HYDROcodone/acetaminophen (*CRX) 7.5-325 MG TABLET 1 TAB PO ×3 (08:38→18:46)
[2024-10-02] MEDS: FERROUS SULFATE 325 MG TABLET DR PO (08:39)
[2024-10-02] MEDS: NIFEdipine 30 MG TAB.ER.24 PO (08:39)
[2024-10-02] MEDS: SENNA/DOCUSATE SODIUM TABLET 2 TAB PO ×2 (08:39→18:47)
[2024-10-02] MEDS: buPROPion HCL XL (24 HR) 150 MG TABCR PO (08:39)
[2024-10-02] MEDS: ALBUTEROL SULFATE (*SP) AEROSOL 1 PUFF 2 PUFF INHALATION (11:55)
--- NOTE | 2024-10-02 12:10 | P.PNIM_ITS ---
Progress Note: A&P Assessment and Plan (1) Failed total left knee replacement: Qualifiers: Encounter type: sequela Qualified Code(s): T84.093S - Other mechanical complication of internal left knee prosthesis, sequela Code(s): T84.093A - Other mechanical complication of internal left knee prosthesis, initial encounter Status: Acute Assessment and Plan: - ambulate with assistance and up to chair - use IS - neurovasc checks - see order for intervals - SCDs/ TEDs - resume diet - analgesics and antiemetics p.r.n. - monitor labs in AM - CBC and BMP - bowel regimen: docusate/senna, polyethylene glycol - maintenance fluids: NS 125 mL/hr x8 hrs - PT/OT (2) Iron deficiency anemia: Qualifiers: Iron deficiency anemia type: unspecified iron deficiency Qualified Code(s): D50.9 - Iron deficiency anemia, unspecified Code(s): D50.9 - Iron deficiency anemia, unspecified Status: Chronic Assessment and Plan: - Hgb 12.9, MCHC 32.3, MCV 86.0 - continue home medications: Ferrous sulfate 325 mg daily - trend (3) Hypertension: Qualifiers: Hypertension type: primary hypertension Qualified Code(s): I10 - Esse ntial (primary) hypertension Code(s): I10 - Essential (primary) hypertension Status: Chronic Assessment and Plan: Blood pressure above goal in the setting of pain - chronic, currently you 147/94 - continue home medications: Lisinopril 40 mg daily, metoprolol XL 100 mg daily, nifedipine 30 mg daily - monitor (4) Neck pain: Code(s): M54.2 - Cervicalgia Status: Acute Assessment and Plan: Right neck, shoulder, and chest TTP with asymmetric appearance of clavicle, question of localized swelling. No obviously enlarged lymph nodes. Hx breast cancer. Reports symptoms that started after breast implant surgery in July and has become gradually more painful, unable to lie on right side. Chest x-ray negative --CT Neck/Chest given hx breast cancer, if negative, plan to follow up with outpatient surgeon (5) Shortness of breath: Code(s): R06.02 - Shortness of breath Status: Acute Assessment and Plan: Reports shortness of breath but no significant wheezing on exam, is tight and feels improved after a breathing treatment --Started Advair 2 puffs BID --Scheduled Nebs q8 --can start steroids if not improved in AM --CT chest with IV contrast, seems more likely asthma exacerbation but has been off anticoagulation until yesterday. Plan Diet: Regular GI Prophylaxis: Famotidine p.o. DVT Prophylaxis: SCDs, LISA, Resumed Xarelto starting on 10/01/2024 Lines: Peripheral Code Status: Full code Time Spent With Patient Time: 58 minutes Subjective Date/time seen: 10/02/24 12:10 Interval history: Reported wheezing, improved with nebs this morning. Takes a steroid inhaler at home, added back Advair and scheduled nebs Reports right neck/chest pain that has been gradually worsening since July after breast implant surgery. Chest x-ray negative, ordered to evaluate asymmetric appearance. Ordered CT neck and chest to further evaluate, also discussed with her that it could be outpatient potentially when stable from a respiratory perspective. Discussed follow up with surgeon Review of Systems Review of Systems: All systems reviewed & are unremarkable except as noted in HPI and below Exam Narrative: General - Awake and alert. No acute distress Eyes - PERRLA, EOM intact ENT - No thrush, No erythema Neck - TTP right neck, tender to clavicle and right sternocleidomastoid, prominent Cardiovascular - RRR no m/r/g, no JVD Lungs: Tight, rare wheezing, no use of accessory muscles, no crackles . Skin - Skin warm and dry, no wounds or rashes Abdomen - Normal bowel sounds, abdomen soft and nontender Extremities - Left knee edema, mild tenderness, no cyanosis or clubbing Musculoskeletal - 5/5 strength, normal range of motion, no swollen or erythematous joints. Neurological ? Alert and oriented x 3, CN 2-12 grossly intact. Psych: Normal mood and affect Objective Data Vital Signs Vital Signs: Vital Signs - 24 hr 10/01/24 12:23 10/01/24 12:59 10/01/24 14:00 Temperature 97.4 F L 97.3 F L Pulse Rate 80 86 Respiratory Rate 20 20 Blood Pressure 151/81 H 165/89 H Pulse Oximetry 100 98 Oxygen Delivery Room Air 10/01/24 16:05 10/01/24 16:23 10/01/24 17:55 Temperature 97.8 F Pulse Rate 86 Respiratory Rate 20 Blood Pressure 160/80 H Pulse Oximetry 97 96 Oxygen Delivery Room Air Room Air 10/01/24 20:00 10/01/24 20:23 10/01/24 20:34 Temperature 97.3 F L Pulse Rate 91 86 Respiratory Rate 14 Blood Pressure 134/90 Pulse Oximetry 99 Oxygen Delivery Room Air 10/01/24 23:42 10/02/24 04:23 10/02/24 08:23 Temperature 97.1 F L 97.0 F L 97.2 F L Pulse Rate 86 70 82 Respiratory Rate 16 14 18 Blood Pressure 135/76 139/84 172/90 H Pulse Oximetry 94 96 98 Oxygen Delivery 10/02/24 11:55 Temperature Pulse Rate 71 Respiratory Rate 18 Blood Pressure Pulse Oximetry Oxygen Delivery Intake/Output Intake/Output: Intake & Output 09/29/24 09/30/24 10/01/24 10/02/24 23:59 23:59 23:59 23:59 Intake Total 2029 1635 Balance 2029 1636 Meds/Results Medications: Active Medications Generic Name Dose Route Start Last Admin Trade Name Freq PRN Reason Stop Dose Admin Hydrocodone Bitart/Acetaminophen 1 tab 10/01/24 10:38 Hydrocodone/Acetaminophen (*Crx) 5-325 Mg Tablet PO Q4H PRN Pain Rated 4-6 Hydrocodone Bitart/Acetaminophen 1 tab 10/01/24 10:38 10/02/24 08:38 Hydrocodone/Acetaminophen (*Crx) 7.5-325 Mg Tablet PO 1 tab Q4H PRN Administration Pain Rated 7-10 Albuterol 2 puff 10/01/24 10:38 10/02/24 11:55 Albuterol Sulfate (*Sp) Aerosol 1 Puff INHALATION 2 puff Q4-6H PRN Administration shortness of breath or wheezing Aripiprazole 2 mg 10/01/24 10:38 10/02/24 08:35 Aripiprazole 2 Mg Tablet PO 2 mg QAM HIEU Administration Bupropion HCl 150 mg 10/02/24 09:00 10/02/24 08:39 Bupropion Hcl Xl (24 Hr) 150 Mg Tabcr PO 150 mg QAM HIEU Administration Buspirone HCl 15 mg 10/01/24 13:00 10/02/24 08:35 Buspirone Hcl 5 Mg Tablet PO 15 mg TID HIEU Administration Celecoxib 200 mg 10/01/24 17:00 10/02/24 08:38 Celecoxib 200 Mg Capsule PO 200 mg BIDWM HIEU Administration Diphenhydramine HCl 25 mg 10/01/24 10:38 Diphenhydramine Hcl Inj 50 Mg/Ml Vial IV PUSH Q6H PRN Itching Famotidine 20 mg 10/01/24 10:38 10/02/24 08:35 Famotidine 20 Mg Tablet PO 20 mg QAM HIEU Administration Ferrous Sulfate 325 mg 10/02/24 09:00 10/02/24 08:39 Ferrous Sulfate [address] PO 325 mg DAILY HIEU Administration Hydromorphone HCl 1 mg 10/01/24 10:38 10/02/24 10:20 Hydromorphone Hcl Inj (*Crx) 1 Mg/Ml Syr IV PUSH 1 mg Q2H PRN Administration Breakthrough Pain Rated 7-10 or NPO Hydromorphone HCl 0.5 mg 10/01/24 10:38 Hydromorphone Hcl Inj (*Crx) 1 Mg/Ml Syr IV PUSH Q2H PRN Breakthrough Pain Rated 4-6 or NPO Ibuprofen 800 mg in 200 mls @ 400 mls/hr 10/01/24 10:38 10/01/24 17:45 Caldolor 800 Mg/200 Ml IVPB 400 mls/hr Q6H PRN Administration Breakthrough Pain Rated 1-3 or NPO Lisinopril 40 mg 10/02/24 09:00 10/02/24 08:35 Lisinopril 20 Mg Tablet PO 40 mg QAM HIEU Administration Metoprolol Succinate 100 mg 10/01/24 21:00 10/01/24 20:34 Metoprolol Succinate Ext Rel 100 Mg Tabcr PO 100 mg HS HIEU Administration Mirtazapine 15 mg 10/01/24 21:00 10/01/24 20:35 Mirtazapine 15 Mg Tablet PO 15 mg HS HIEU Administration Naloxone HCl 0.1 mg 10/01/24 10:38 Naloxone Hcl 0.4 Mg/Ml Vial IV PUSH Q2M PRN Opiate Reversal Nifedipine 30 mg 10/02/24 09:00 10/02/24 08:39 Nifedipine 30 Mg Tab.Er.24 PO 30 mg QAM HIEU Administration Ondansetron HCl 4 mg 10/01/24 10:38 10/01/24 18:22 Ondansetron Inj 4 Mg/2 Ml Vial IV PUSH 4 mg Q4H PRN Administration Nausea And Vomiting Polyethylene Glycol 17 gm 10/02/24 09:00 10/02/24 08:34 Polyethylene Glycol 3350 17 Gm Powd.Pack PO 17 gm QAM HIEU Administration Rivaroxaban 10 mg 10/01/24 17:00 10/01/24 17:50 Rivaroxaban 10 Mg Tablet PO 10/12/24 17:01 10 mg DAILY@17 HIEU Administration Senna/Docusate Sodium 2 tab 10/01/24 10:38 10/02/24 08:39 Senna/Docusate Sodium Tablet PO 2 tab BID HIEU Administration Tramadol HCl 50 mg 10/01/24 10:38 Tramadol Hcl (*Crx) 50 Mg Tablet PO Q4H PRN Pain Rated 1-3 Venlafaxine HCl 225 mg 10/02/24 09:00 10/02/24 08:34 Venlafaxine Hcl Xr 75 Mg Cap.Er.24h PO 225 mg QAM HIEU Administration Radiology Results: ITS Impressions Knee X-Ray 10/01/24 10:15 IMPRESSION: 1. Left total knee arthroplasty, negative for postoperative purposes. Labs Labs: Laboratory Results - last 24 hr 10/02/24 07:12 WBC 9.6 RBC 4.04 L Hgb 10.9 L Hct 35.1 L MCV 86.9 MCH 27.0 MCHC 31.1 L RDW 15.8 H Plt Count 248 MPV 8.7 Immature Gran % (Auto) 0.4 Neut % (Auto) 57.1 Lymph % (Auto) 31.0 [place] % (Auto) 10.5 H Eos % (Auto) 0.6 Baso % (Auto) 0.4 Lymph # (Auto) 2.98 [place] # (Auto) 1.0 H Eos # (Auto) 0.1 Baso # (Auto) 0.0 Abs Immat Gran (auto) 0.04 H Absolute Neuts (auto) 5.5 Absolute Nucleated RBC 0.000 Nucleated RBC % 0.0 Sodium 139 Potassium 3.6 Chloride 104 Carbon Dioxide 25 Anion Gap 10 BUN 7 D Creatinine 0.69 L Estim Creat Clear Calc 96 Estimated GFR > 60 Glucose 117 H Calcium 8.5 Quality VTE Prophylaxis VTE prophylaxis: mechanical ordered and pharmacologic ordered Hospitalist MIPS Advance Care Plan I have confirmed that the patient's Advanced Care Plan is present, code status is documented, or surrogate decision maker is listed in patient medical record.: Yes Medication Reconciliation I have utilized all available resources to obtain, update and review the patients current medications (includes all prescriptions, OTC, herbals, cannabis, and nutritional supplements).: Yes
--- NOTE | 2024-10-02 13:21 | WPDANESPN ---
Anes - Prog Note Post-Op Date/Time: 10/02/24 13:21 Vital Signs: Last Vital Signs Temp 36.5 C 10/02/24 12:23 Pulse 78 10/02/24 12:23 Resp 18 10/02/24 12:23 BP 158/89 H 10/02/24 12:23 Pulse Ox 97 10/02/24 12:23 O2 Del Method Room Air 10/01/24 20:00 O2 Flow Rate 3 10/01/24 10:35 Pain Score (VAS): 3 I/O: Intake & Output 10/01/24 10/02/24 10/02/24 23:59 07:59 15:59 Intake Total 1340 1400 636 Balance 1340 1400 636 Laboratory Tests 10/02/24 07:12 10/02/24 07:12 10/02/24 07:12 WBC 9.6 RBC 4.04 L Hgb 10.9 L Hct 35.1 L MCV 86.9 MCH 27.0 MCHC 31.1 L RDW 15.8 H Plt Count 248 MPV 8.7 Immature Gran % (Auto) 0.4 Neut % (Auto) 57.1 Lymph % (Auto) 31.0 [place] % (Auto) 10.5 H Eos % (Auto) 0.6 Baso % (Auto) 0.4 Lymph # (Auto) 2.98 [place] # (Auto) 1.0 H Eos # (Auto) 0.1 Baso # (Auto) 0.0 Abs Immat Gran (auto) 0.04 H Absolute Neuts (auto) 5.5 Absolute Nucleated RBC 0.000 Nucleated RBC % 0.0 Sodium 139 Potassium 3.6 Chloride 104 Carbon Dioxide 25 Anion Gap 10 BUN 7 D Creatinine 0.69 L Estim Creat Clear Calc 96 Estimated GFR > 60 Glucose 117 H Calcium 8.5 Microbiology 10/01/24 08:18 Knee Left Anaerobic Culture - Preliminary Patient Feedback: Patient satisfied with anesthetic care.
--- NOTE | 2024-10-02 13:41 | PCPTNOTE ---
On 10/02/24, the student, CAITLYN Hines, provided care and completed [facility] documentation on this patient. I have reviewed the student's documentation and agree with the findings.
--- NOTE | 2024-10-02 16:18 | PCPTNOTE ---
On 10/02/24, the student, CAITLYN Hines, provided care and completed [facility] documentation this afternoon on this patient. I have reviewed the student's documentation and agree with the findings.
[2024-10-02] MEDS: RIVAROXABAN 10 MG TABLET PO (18:47)
[2024-10-02] MEDS: FLUTICASONE/SALMETEROL 230-21 MCG INHALER 1 PUFF 2 PUFF INHALATION (19:49)
[2024-10-02] MEDS: IPRATROPIUM 0.5 MG/ALBUTEROL SULFATE 2.5 MG AMPUL.NEB 3 ML INHALATION (19:49)
[2024-10-02] MEDS: METOPROLOL SUCCINATE EXT REL 100 MG TABCR PO (20:45)
[2024-10-02] MEDS: MIRTAZAPINE 15 MG TABLET PO (20:45)
[2024-10-03] VITALS (12 sets, daily range): BP systolic 131–145; BP diastolic 71–77; PULSE 78–111; RESP 14–20; TEMP 36.1–36.2; O2SAT 85–95
[2024-10-03] MEDS: IPRATROPIUM 0.5 MG/ALBUTEROL SULFATE 2.5 MG AMPUL.NEB 3 ML INHALATION ×3 (02:31→14:30)
[2024-10-03] MEDS: HYDROcodone/acetaminophen (*CRX) 7.5-325 MG TABLET 1 TAB PO ×3 (03:41→17:38)
[2024-10-03] MEDS: HYDROmorphone HCL INJ (*CRX) 1 MG/ML SYR IV PUSH ×2 (07:02→13:43)
--- NOTE | 2024-10-03 07:22 | P.PNIM_ITS ---
Progress Note: A&P Assessment and Plan (1) Failed total left knee replacement: Qualifiers: Encounter type: sequela Qualified Code(s): T84.093S - Other mechanical complication of internal left knee prosthesis, sequela Code(s): T84.093A - Other mechanical complication of internal left knee prosthesis, initial encounter Status: Acute Assessment and Plan: - ambulate with assistance and up to chair - use IS - neurovasc checks - see order for intervals - SCDs/ TEDs - resume diet - analgesics and antiemetics p.r.n. - monitor labs in AM - CBC and BMP - bowel regimen: docusate/senna, polyethylene glycol - maintenance fluids: NS 125 mL/hr x8 hrs - PT/OT (2) Iron deficiency anemia: Qualifiers: Iron deficiency anemia type: unspecified iron deficiency Qualified Code(s): D50.9 - Iron deficiency anemia, unspecified Code(s): D50.9 - Iron deficiency anemia, unspecified Status: Chronic Assessment and Plan: H&H trending down - Hgb 12.9, MCHC 32.3, MCV 86.0 - continue home medications: Ferrous sulfate 325 mg daily - following CBC, check iron panel (3) Hypertension: Qualifiers: Hypertension type: primary hypertension Qualified Code(s): I10 - Essential (primary) hypertension Code(s): I10 - Essential (primary) hypertension Status: Chronic Assessment and Plan: Blood pressure above goal in the setting of pain - chronic, currently you 147/94 - continue home medications: Lisinopril 40 mg daily, metoprolol XL 100 mg daily, nifedipine 30 mg daily - monitor (4) Neck pain: Code(s): M54.2 - Cervicalgia Status: Acute Assessment and Plan: Right neck, shoulder, and chest TTP with asymmetric appearance of clavicle, no obviously enlarged lymph nodes. Has right facial swelling. Hx breast cancer. Reports symptoms that started after breast implant surgery in July and has become gradually more painful, unable to lie on right side. Chest x-ray negative --CT Neck/Chest given hx breast cancer, no acute findings or explanation of pain, plan to follow up with outpatient surgeon (5) Shortness of breath: Code(s): R06.02 - Shortness of breath Status: Acute Assessment and Plan: Reports shortness of breath but no significant wheezing on exam, is tight and improving with breathing treatments. Required 2L of O2 with activity --Started Advair 2 puffs BID --Scheduled Nebs q8 --Started Prednisone 40mg daily x5 days --CT chest with IV contrast today to evaluate shortness of breath and chest tenderness. Seems more likely asthma exacerbation --Walking O2 assessment done and required 2L of O2 with activity Plan Diet: Regular GI Prophylaxis: Famotidine p.o. DVT Prophylaxis: SCDs, LISA, Xarelto starting on 10/01/2024 Lines: Peripheral Code Status: Full code Subjective Date/time seen: 10/03/24 15:32 Interval history: Blood pressure 140's/60-70's in the setting of pain Walking O2 completed today since report of shortness of breath with activity, needs 2 liters of oxygen with ambulation. Set up for home CT Neck/Chest for right facial swelling and recent yellow/bloody drainage from ear and gradually increasing pain to right neck and shoulder, resolved with ear drops per patient. CT normal. Can consider adding gabapentin or flexeril for pain Added bentyl for gastric cramping Hospital course: 54 y/o F admitted for left total knee arthroplasty, s/p OR 10/01 for revision of left total knee arthroplasty 10/02 Reported wheezing, improved with nebs. Takes a steroid inhaler at home, added back Advair and scheduled nebs Reports right neck/chest pain that has been gradually worsening since July after breast implant surgery. Chest x-ray negative, ordered to evaluate asymmetric appearance and no acute findings. Ordered CT neck and chest to further evaluate, also discussed with her that it could be outpatient potentially when stable from a respiratory perspective. Discussed follow up with outpatient surgeon Review of Systems Review of Systems: All systems reviewed & are unremarkable except as noted in HPI and below Exam Narrative: General - Awake and alert. No acute distress Eyes - PERRLA, EOM intact ENT - No thrush, No erythema Neck - TTP right neck, tender to clavicle and right sternocleidomastoid, prominent Cardiovascular - RRR no m/r/g, no JVD Lungs: Tight, rare wheezing, no use of accessory muscles, no crackles . Skin - Skin warm and dry, no wounds or rashes Abdomen - Normal bowel sounds, abdomen soft and nontender Extremities - Left knee edema, mild tenderness, no cyanosis or clubbing Musculoskeletal - 5/5 strength, normal range of motion, no swollen or erythematous joints. Neurological ? Alert and oriented x 3, CN 2-12 grossly intact. Psych: Normal mood and affect Objective Data Vital Signs Vital Signs: Vital Signs - 24 hr 10/02/24 08:23 10/02/24 11:55 10/02/24 12:23 Temperature 97.2 F L 97.7 F Pulse Rate 82 71 78 Respiratory Rate 18 18 18 Blood Pressure 172/90 H 158/89 H Pulse Oximetry 98 97 Oxygen Delivery 10/02/24 15:53 10/02/24 19:53 10/02/24 19:54 Temperature 98.4 F Pulse Rate 85 67 Respiratory Rate 18 18 Blood Pressure 151/92 H Pulse Oximetry 94 92 Oxygen Delivery Room Air 10/02/24 20:06 10/02/24 20:40 10/02/24 20:45 Temperature Pulse Rate 82 83 78 Respiratory Rate 18 20 Blood Pressure Pulse Oximetry 93 Oxygen Delivery Room Air 10/02/24 21:46 10/03/24 02:32 10/03/24 02:39 Temperature 97.1 F L Pulse Rate 83 89 87 Respiratory Rate 20 18 18 Blood Pressure 143/69 H Pulse Oximetry 93 Oxygen Delivery 10/03/24 05:27 Temperature 97.0 F L Pulse Rate 93 Respiratory Rate 20 Blood Pressure 145/71 H Pulse Oximetry 91 Oxygen Delivery Intake/Output Intake/Output: Intake & Output 09/30/24 10/01/24 10/02/24 10/03/24 23:59 23:59 23:59 23:59 Intake Total 2029 2508 550 Balance 20298 550 Meds/Results Medications: Active Medications Generic Name Dose Route Start Last Admin Trade Name Freq PRN Reason Stop Dose Admin Hydrocodone Bitart/Acetaminophen 1 tab 10/01/24 10:38 Hydrocodone/Acetaminophen (*Crx) 5-325 Mg Tablet PO Q4H PRN Pain Rated 4-6 Hydrocodone Bitart/Acetaminophen 1 tab 10/01/24 10:38 10/03/24 03:41 Hydrocodone/Acetaminophen (*Crx) 7.5-325 Mg Tablet PO 1 tab Q4H PRN Administration Pain Rated 7-10 Albuterol 2 puff 10/01/24 10:38 10/02/24 11:55 Albuterol Sulfate (*Sp) Aerosol 1 Puff INHALATION 2 puff Q4-6H PRN Administration shortness of breath or wheezing Albuterol/Ipratropium 3 ml 10/02/24 14:00 10/03/24 02:31 Ipratropium 0.5 Mg/Albuterol Sulfate 2.5 Mg Ampul.Neb 3 Ml INHALATION 3 ml Q6HRT HIEU Administration Aripiprazole 2 mg 10/01/24 10:38 10/02/24 08:35 Aripiprazole 2 Mg Tablet PO 2 mg QAM HIEU Administration Bupropion HCl 150 mg 10/02/24 09:00 10/02/24 08:39 Bupropion Hcl Xl (24 Hr) 150 Mg Tabcr PO 150 mg QAM HIEU Administration Buspirone HCl 15 mg 10/01/24 13:00 10/02/24 18:46 Buspirone Hcl 5 Mg Tablet PO 15 mg TID HIEU Administration Celecoxib 200 mg 10/01/24 17:00 10/02/24 18:46 Celecoxib 200 Mg Capsule PO 200 mg BIDWM HIEU Administration Diphenhydramine HCl 25 mg 10/01/24 10:38 Diphenhydramine Hcl Inj 50 Mg/Ml Vial IV PUSH Q6H PRN Itching Famotidine 20 mg 10/01/24 10:38 10/02/24 08:35 Famotidine 20 Mg Tablet PO 20 mg QAM [facility] Administration Ferrous Sulfate 325 mg 10/02/24 09:00 10/02/24 08:39 Ferrous Sulfate [address] PO 325 mg DAILY HIEU Administration Hydromorphone HCl 1 mg 10/01/24 10:38 10/03/24 07:02 Hydromorphone Hcl Inj (*Crx) 1 Mg/Ml Syr IV PUSH 1 mg Q2H PRN Administration Breakthrough Pain Rated 7-10 or NPO Hydromorphone HCl 0.5 mg 10/01/24 10:38 Hydromorphone Hcl Inj (*Crx) 1 Mg/Ml Syr IV PUSH Q2H PRN Breakthrough Pain Rated 4-6 or NPO Ibuprofen 800 mg in 200 mls @ 400 mls/hr 10/01/24 10:38 10/01/24 17:45 Caldolor 800 Mg/200 Ml IVPB 400 mls/hr Q6H PRN Administration Breakthrough Pain Rated 1-3 or NPO Lisinopril 40 mg 10/02/24 09:00 10/02/24 08:35 Lisinopril 20 Mg Tablet PO 40 mg QAM HIEU Administration Metoprolol Succinate 100 mg 10/01/24 21:00 10/02/24 20:45 Metoprolol Succinate Ext Rel 100 Mg Tabcr PO 100 mg HS HIEU Administration Mirtazapine 15 mg 10/01/24 21:00 10/02/24 20:45 Mirtazapine 15 Mg Tablet PO 15 mg HS HIEU Administration Naloxone HCl 0.1 mg 10/01/24 10:38 Naloxone Hcl 0.4 Mg/Ml Vial IV PUSH Q2M PRN Opiate Reversal Nifedipine 30 mg 10/02/24 09:00 10/02/24 08:39 Nifedipine 30 Mg Tab.Er.24 PO 30 mg QAM HIEU Administration Ondansetron HCl 4 mg 10/01/24 10:38 10/01/24 18:22 Ondansetron Inj 4 Mg/2 Ml Vial IV PUSH 4 mg Q4H PRN Administration Nausea And Vomiting Polyethylene Glycol 17 gm 10/02/24 09:00 10/02/24 08:34 Polyethylene Glycol 3350 17 Gm Powd.Pack PO 17 gm QAM HIEU Administration Rivaroxaban 10 mg 10/01/24 17:00 10/02/24 18:47 Rivaroxaban 10 Mg Tablet PO 10/12/24 17:01 10 mg DAILY@17 HIEU Administration Fluticasone/Salmeterol 2 puff 10/02/24 20:00 10/02/24 19:49 Fluticasone/Salmeterol 230-21 Mcg Inhaler 1 Puff INHALATION 2 puff Q12HRT HIEU Administration Senna/Docusate Sodium 2 tab 10/01/24 10:38 10/02/24 18:47 Senna/Docusate Sodium Tablet PO 2 tab BID HIEU Administration Tramadol HCl 50 mg 10/01/24 10:38 Tramadol Hcl (*Crx) 50 Mg Tablet PO Q4H PRN Pain Rated 1-3 Venlafaxine HCl 225 mg 10/02/24 09:00 10/02/24 08:34 Venlafaxine Hcl Xr 75 Mg Cap.Er.24h PO 225 mg QAM HIEU Administration Radiology Results: ITS Impressions Knee X-Ray 10/01/24 10:15 IMPRESSION: 1. Left total knee arthroplasty, negative for postoperative purposes. Chest X-Ray 01/30/25 14:56 IMPRESSION: No focal infiltrate or effusion. Labs Labs: Laboratory Results - last 24 hr 10/02/24 07:12 WBC 9.6 RBC 4.04 L Hgb 10.9 L Hct 35.1 L MCV 86.9 MCH 27.0 MCHC 31.1 L RDW 15.8 H Plt Count 248 MPV 8.7 Immature Gran % (Auto) 0.4 Neut % (Auto) 57.1 Lymph % (Auto) 31.0 [place] % (Auto) 10.5 H Eos % (Auto) 0.6 Baso % (Auto) 0.4 Lymph # (Auto) 2.98 [place] # (Auto) 1.0 H Eos # (Auto) 0.1 Baso # (Auto) 0.0 Abs Immat Gran (auto) 0.04 H Absolute Neuts (auto) 5.5 Absolute Nucleated RBC 0.000 Nucleated RBC % 0.0 Sodium 139 Potassium 3.6 Chloride 104 Carbon Dioxide 25 Anion Gap 10 BUN 7 D Creatinine 0.69 L Estim Creat Clear Calc 96 Estimated GFR > 60 Glucose 117 H Calcium 8.5 Quality VTE Prophylaxis VTE prophylaxis: mechanical ordered and pharmacologic ordered Hospitalist MIPS Advance Care Plan I have confirmed that the patient's Advanced Care Plan is present, code status is documented, or surrogate decision maker is listed in patient medical record.: Yes Medication Reconciliation I have utilized all available resources to obtain, update and review the patients current medications (includes all prescriptions, OTC, herbals, cannabis, and nutritional supplements).: Yes
[2024-10-03 07:57] LABS: Basophils Percent Auto 0.4 % (0.2-1.2); Eosinophils Absolute Auto 0.2 K/mm3 (0-0.3); Eosinophils Percent Auto 2.2 % (0-4.4); Hemoglobin 11.5 g/dL (12.0-15.0); Immature Granulocyte Absolute 0.02 K/mm3 (0.00-0.031); Immature Granulocyte Percent A 0.3 % (0-0.5); Lymphocytes Absolute Auto 2.66 K/mm3 (0.9-3.2); Lymphocytes Percent Auto 33.8 % (18.3-44.2); Mean Corpuscular HGB Conc 31.1 g/dl (32-36); Mean Corpuscular Hemoglobin 27.3 pg (26-34); Mean Corpuscular Volume 87.7 fl (80-100); Mean Platelet Volume 8.6 fl (7.4-10.4); Monocytes Absolute Auto 0.8 K/mm3 (0.1-0.6); Monocytes Percent Auto 10.5 % (2.6-8.5); Neutrophils Absolute Auto 4.2 K/mm3 (1.3-6.7); Neutrophils Percent Auto 52.8 % (45.5-73.1); Platelet Count Result 251 k/mm3 (150-375); Red Blood Count 4.22 M/mm3 (4.2-5.4); Red Cell Distribution Width 15.9 % (11.5-14.5); White Blood Count 7.9 K/mm3 (4.5-10.0)
[2024-10-03] MEDS: FLUTICASONE/SALMETEROL 230-21 MCG INHALER 1 PUFF 2 PUFF INHALATION (08:18)
[2024-10-03 08:20] LABS: Alanine Aminotransferase 22 U/L (6-35); Alkaline Phosphatase 78 U/L (38-126); Anion Gap 7 mmol/L (4-12); Aspartate Amino Transferase 29 U/L (14-36); Bilirubin,Total 0.6 mg/dL (0.2-1.3); Blood Urea Nitrogen 5 mg/dL (7-17); Calcium 8.7 mg/dL (8.4-10.2); Carbon Dioxide 31 mmol/L (22-30); Chloride 102 mmol/L (98-107); Estimated CRCL calculation 109 ml/min; Estimated Glomerular Filt Rate > 60; Glucose 111 mg/dL (65-110); Sodium 140 mmol/L (137-145)
--- NOTE | 2024-10-03 08:21 | PCOTNOTE ---
The patient treatment was not able to be completed. Patient is getting a respiratory treatment and reports she will be leaving after getting a test. Patient reports no concerns. Will plan to continue treatment per plan of care.
[2024-10-03 08:23] LABS: Iron 39 ug/dL (37-170)
[2024-10-03 08:34] LABS: Percent Iron Saturation 18 % (20-50)
[2024-10-03] MEDS: FERROUS SULFATE 325 MG TABLET DR PO (09:52)
[2024-10-03] MEDS: NIFEdipine 30 MG TAB.ER.24 PO (09:52)
[2024-10-03] MEDS: VENLAFAXINE HCL XR 75 MG CAP.ER.24H 225 MG PO (09:52)
[2024-10-03] MEDS: CELECOXIB 200 MG CAPSULE PO ×2 (09:52→17:39)
[2024-10-03] MEDS: SENNA/DOCUSATE SODIUM TABLET 2 TAB PO ×2 (09:52→17:38)
[2024-10-03] MEDS: buPROPion HCL XL (24 HR) 150 MG TABCR PO (09:52)
[2024-10-03] MEDS: FAMOTIDINE 20 MG TABLET PO (09:52)
[2024-10-03] MEDS: polyethylene glycoL 3350 17 GM POWD.PACK PO (09:52)
[2024-10-03] MEDS: ARIPiprazole 2 MG TABLET PO (09:52)
[2024-10-03] MEDS: busPIRone HCL 5 MG TABLET 15 MG PO ×3 (09:52→17:37)
[2024-10-03] MEDS: lisinopriL 20 MG TABLET 40 MG PO (09:52)
--- NOTE | 2024-10-03 10:58 | HOMEO2EVAL ---
Evaluation was performed at [facility] Home Oxygen Evaluation RC: Home Oxygen (O2) Evaluation Start: 10/03/24 09:50 Freq: ONCE Status: Active Protocol: RPE Activity Type Activity Date Activity User E-sign Co-sign Detail Recorded Client Recorded Date Recorded By Document 10/03/24 10:30 RUEL [email or web address] 10/03/24 10:58 RUEL Document 10/03/24 10:33 RUEL [email or web address] 10/03/24 10:58 RUEL Document 10/03/24 10:34 RUEL [email or web address] 10/03/24 10:58 RUEL Document 10/03/24 10:35 RUEL [email or web address] 10/03/24 10:58 RUEL Document 10/03/24 10:45 RUEL [email or web address] 10/03/24 10:58 RUEL 10/03/24 10/03/24 10/03/24 10:30 10:33 10:34 Home O2 Evaluation [Oxygen] -Test Phase Resting Exercise Exercise -Oxygen Delivery Room Air Room Air Nasal Cannula -Oxygen Flow Rate (L/min) 1 [Pulse Oximetry] -Pulse Oximetry (90-100 %) 95 85 L 87 L [Pulse Rate] -Pulse Rate (60-100 beats/min) 80 111 H [Evaluation] -Activity Tolerance [Exercise] -Ambulation Distance (feet) -Ambulation Distance (meters) [Comments] -Home Oxygen Evaluation Comments [Charges] -Evaluation Charges O2 Evaluation by Pulmonary 10/03/24 10/03/24 10:35 10:45 Home O2 Evaluation [Oxygen] -Test Phase Exercise Resting -Oxygen Delivery Nasal Cannula Room Air -Oxygen Flow Rate (L/min) 2 [Pulse Oximetry] -Pulse Oximetry (90-100 %) 92 94 [Pulse Rate] -Pulse Rate (60-100 beats/min) 92 83 [Evaluation] -Activity Tolerance Good [Exercise] -Ambulation Distance (feet) 100 -Ambulation Distance (meters) 30.47 [Comments] -Home Oxygen Evaluation Comments Pt requires 2 liters home O2 with exertion [Charges] -Evaluation Charges
--- NOTE | 2024-10-03 10:59 | PCRCNOTE ---
Pt requires 2 liters home O2 with activity/exertion. RN will call when pt is planning to d/c. At this time, she is unsure if she will be going home yet.
--- NOTE | 2024-10-03 16:46 | PCPTNOTE ---
On 10/03/24, the student, CAITLYN Hines, provided care and completed [facility] documentation on this patient. I have reviewed the student's documentation and agree with the findings.
[2024-10-03] MEDS: RIVAROXABAN 10 MG TABLET PO (17:39)
--- NOTE | 2024-10-07 13:56 | PM.DS ---
DS: Admitting Diagnosis Discharge Date 10/03/24 Admitting Diagnosis Failed left total knee arthroplasty DS: Discharge Diagnosis Discharge Diagnosis (1) Failed total left knee replacement: Qualifiers: Encounter type: sequela Qualified Code(s): T84.093S - Other mechanical complication of internal left knee prosthesis, sequela Code(s): T84.093A - Other mechanical complication of internal left knee prosthesis, initial encounter Status: Acute Assessment and Plan: Patient underwent revision left total knee arthroplasty for instability. DS: Summary Hospital Course Hospital Course: Patient underwent revision left total knee arthroplasty for instability. 4 millimeters more polyethylene were inserted. This gave a very stable knee in both flexion and extension. She is able to ambulate well at this time. Neurologically she is intact. She does use a walker to ambulate. Status at Discharge Functional status at discharge: uses cane/walker Time Spent with Patient Time attestation: Total time spent providing and/or coordinating discharge services: Exam Narrative: Patient is able to wiggle her toes. Neurologically she is intact. She ambulates with a walker. The dressing is dry and intact. DS: Data Data Completed and Pending Labs on day of discharge: Preliminary micro results at discharge 10/01/24 08:18 Aerobic Culture - Preliminary Knee Left Discharge Plan Discharge Attending physician on discharge: Ankur Espinal Consulting providers: Joseph Nuñez; Virginia Mack; Maria Nelson; Trinity Slaughter; Edgard De La Vega; Virginia Avilez; Bogdan Curiel V. Discharging Clinician: Ankur Espinal Anticipated Discharge Date/Time: 10/03/24 17:11 Patient Disposition: Home, Self-Care Activity: no shower Diet: regular Discharge Instructions: Follow up with your PCP in 1-2 weeks. Follow up with Orthopedic surgery as discussed Take prednisone for 5 days and then stop, for shortness of breath You need 2 liters of oxygen with activity. Follow up with your PCP for pulmonary function testing. Follow up with surgery for follow up of the pain to your left chest and shoulder. The CT of your neck and chest was normal so it is likely musculoskeltal (muscle/nerve pain). Your stomach pain will likely improve with time and if you limit opiates ([place]) as much as you can. Added bentyl as needed for stomach cramps. Drink 2 liters of water daily for the next 2 days to protect your kidneys since you had IV contrast with the CT scan POST-OPERATIVE DISCHARGE INSTRUCTIONS TOTAL KNEE ARTHROPLASTY 1. When resting, do not rest in the chair.When resting, lie on your back, with back flat on the couch or bed, with leg elevated above heart to minimize swelling. You may put a pillow under your head. . Significant swelling could indicate a blood clot and if this occurs call the office (or go to the ER) to have a venous ultrasound. Therefore, do not rest in a chair. 2. At least five times a day spend several minutes stretching your knee into flexion while sitting in the chair and also stretching your knee out straight The abilities to bend your knee fulling and straighten your knee fully are two most important knee functions to focus on during your recovery. 3. It is ok to sit in chair to eat, use the toilet and receive a guest and to do your stretching exercises, but, sitting in a chair will cause your leg to swell. Therefore, avoid additional time sitting in the chair. and don't rest in the chair. 4. Wound Care: Nursing will give you an additional Mepilex dressing at the time of discharge. Patient to remove the dressing and apply a new Mepilex dressing at home 7 days after surgery and leave the dressing on until seen in office. 5. May shower with a Mepilex dressing in place.The water will run off the dressing. 6. Unless you are told otherwise, you may put full weight on your operated leg. Use a walker for balance and practice walking as normally as you can, ideally for a few minutes every hour while you are awake. 7. I would advise against putting ice packs on your knee incision. Ice constricts blood flow which can impar healing of the knee incision. Patient Instructions: Antibiotic Form, Rivaroxaban (By mouth) Patient Language: Icelandic Stand Alone Forms: General Discharge Information Follow-up/Referrals: Anitha,Lu Mackey. [Primary Care Provider] - Ankur Espinal MD [Physician] - Discharge Medications: New dicyclomine 20 mg tablet 20 mg PO QID PRN (Reason: abdominal pain) Qty: 30 0RF celecoxib [Celebrex] 200 mg Capsule 200 mg PO BIDWM 30 Days Qty: 60 0RF ipratropium-albuterol 0.5 mg-3 mg(2.5 mg base)/3 mL Solution For Nebulization 3 ml inhalation Q6HRT PRN (Reason: shortness of breath) 30 Days Qty: 180 1RF fluticasone propion-salmeterol [AirDuo RespiClick] 232-14 mcg/actuation aerosol powdr breath activated 1 inh inhalation BID Qty: 1 3RF prednisone 20 mg tablet 40 mg PO DAILY 5 Days Qty: 10 0RF Continued aripiprazole 2 mg tablet 2 mg PO QAM Patient Comments: QAM buspirone 15 mg tablet 15 mg PO TID doxycycline hyclate 100 mg tablet 100 mg PO DAILY Qty: 10 0RF hydrocodone-acetaminophen 7.5-325 mg tablet 1 tablet PO Q4H PRN (Reason: pain) Qty: 40 0RF Xarelto 10 mg tablet 10 mg PO DAILY Qty: 14 0RF Rx Instructions: for 14 days venlafaxine 225 mg tablet extended release 24hr 225 mg PO QAM ketoconazole 2 % cream 1 applic TOPICAL DAILY Rx Instructions: APPLY TO ECZEMA hydroxyzine HCl 50 mg tablet 100 mg PO HS nifedipine 30 mg tablet extended release 30 mg PO QAM famotidine 20 mg tablet 20 mg PO QAM trazodone 150 mg tablet 150 mg PO HS ferrous sulfate [FeroSul] 325 mg (65 mg iron) tablet 325 mg PO DAILY lisinopril 40 mg tablet 40 mg PO QAM multivitamin Tablet 1 tablet PO DAILY acetaminophen 500 mg capsule 1,000 mg PO Q6H PRN (Reason: pain) Qty: 20 0RF albuterol sulfate 90 mcg/actuation HFA aerosol inhaler 2 puff INHALATION Q4-6H PRN (Reason: shortness of breath or wheezing) bupropion HCl 150 mg tablet extended release 24 hr 150 mg PO .MORNING metoprolol succinate 100 mg tablet extended release 24 hr 100 mg PO HS mirtazapine 15 mg tablet 15 mg PO HS omeprazole 40 mg capsule,delayed release(DR/EC) 40 mg PO QAM ondansetron HCl 8 mg tablet 8 mg PO Q12H PRN (Reason: nausea and vomiting) Discontinued vitamin E 1,000 unit Tablet 1 tablet PO DAILY meloxicam 15 mg tablet 15 mg PO QAM PRN (Reason: pain) Date of admission: 10/02/24 11:13 Primary Care Provider: Unruly,Key Admitting Provider: Ankur Espinal Attending physician on admission: Ankur Espinal Condition: Stable
== END 2024-10-03 18:45 | disposition home or self-care (01) | DRG 325 ==
LOC: ANHSURGERY 11:38 → ANH3MEDSUR 11:38
PROVIDERS: Nurse Practitioner Acute Care; Admitting Provider Orthopaedic Surgery; PCP Internal Medicine Infectious Disease; Visit Provider Orthopaedic Surgery
PROC: 0SPD0JZ Removal of Synthetic Substitute from Left Knee Joint, Open Approach (ICD-10-PCS; CPT 27487; principal; 2024-10-01 07:30)
DX: T84.093A Other mechanical complication of internal left knee prosthesis, initial encounter (principal); Z96.653 Presence of artificial knee joint, bilateral; D50.9 Iron deficiency anemia, unspecified; I10 Essential (primary) hypertension; K21.9 Gastro-esophageal reflux disease without esophagitis; M32.9 Systemic lupus erythematosus, unspecified; M54.2 Cervicalgia; Z85.3 Personal history of malignant neoplasm of breast; Z98.1 Arthrodesis status; Z90.49 Acquired absence of other specified parts of digestive tract; Z87.891 Personal history of nicotine dependence; Z79.01 Long term (current) use of anticoagulants
CPT/HCPCS: 36415; 70491; 71046; 71275; 73560; 80048; 80053; 83540; 83550; 83735; 85025; 86850; 86900; 86901; 87070; 87075; 87205; 94618; 94640; 97110; 97116; 97161; 97165; 97530; 97535; A9270; J0171; J0690; J1100; J1171; J1200; J1741; J1885; J2250; J2270; J2405; J2704; J2795; J3010; J3370; J7030; J7120; Q9967

== ENCOUNTER 2024-10-06 12:18 | Outpatient (RCR) | payer OTHER, SELFPAY ==
--- NOTE | 2024-10-02 07:17 | PM.PNORT ---
Progress Note: A&P Assessment and Plan (1) History of revision of total replacement of left knee joint: Code(s): Z96.652 - Presence of left artificial knee joint Status: Acute Assessment and Plan: Patient underwent 2 revision of 1 component of the of her left total knee arthroplasty for instability. She has progressed normally postoperatively it can be dismissed home. Subjective Subjective Date/Time Seen: 10/02/24 07:17 Post Op day: 1 Principal diagnosis: Total knee arthroplasty revision left Review of Systems Musculoskeletal: Musculoskeletal: Reports arthralgias, Reports joint swelling and Reports stiffness Exam Narrative: Patient wiggles toes. Appears to be neurologically intact. Is able ambulate with a walker. Dressing is intact.
--- NOTE | 2024-10-02 07:19 | P.DS_ITS ---
DS: Admitting Diagnosis Discharge Date 10/02/2024 Admitting Diagnosis Failed left total knee arthroplasty DS: Discharge Diagnosis Discharge Diagnosis (1) History of revision of total replacement of left knee joint: Code(s): Z96.652 - Presence of left artificial knee joint Status: Acute Assessment and Plan: Patient underwent revision left total knee arthroplasty for instability. DS: Summary Hospital Course Hospital Course: Patient underwent revision left total knee arthroplasty for instability. 4 millimeters more a poly was placed which should give her a very stable knee in both flexion and extension. She is able a ambulate well. Neurologically she is intact. He does use a walker to ambulate this time. Status at Discharge Functional status at discharge: uses cane/walker Time Spent with Patient Time attestation: Total time spent providing and/or coordinating discharge services: Exam Narrative: Patient is able to wiggle her toes. Neurologically she is intact. She ambulates with a walker. The dressing is dry and intact. Discharge Plan Departure Attending Physician: Ankur Espinal Primary Care Provider: [employer] Consulting providers: Ankur Espinal Prescriptions: New doxycycline hyclate 100 mg tablet 100 mg PO DAILY Qty: 10 0RF hydrocodone-acetaminophen 7.5-325 mg tablet 1 tablet PO Q4H PRN (Reason: pain) Qty: 40 0RF Xarelto 10 mg tablet 10 mg PO DAILY Qty: 14 0RF Rx Instructions: for 14 days Continued aripiprazole 2 mg tablet 2 mg PO QAM Patient Comments: QAM buspirone 15 mg tablet 15 mg PO TID venlafaxine 225 mg tablet extended release 24hr 225 mg PO QAM ketoconazole 2 % cream 1 applic TOPICAL DAILY Rx Instructions: APPLY TO ECZEMA hydroxyzine HCl 50 mg tablet 100 mg PO HS nifedipine 30 mg tablet extended release 30 mg PO QAM famotidine 20 mg tablet 20 mg PO QAM trazodone 150 mg tablet 150 mg PO HS ferrous sulfate [FeroSul] 325 mg (65 mg iron) tablet 325 mg PO DAILY lisinopril 40 mg tablet 40 mg PO QAM multivitamin Tablet 1 tablet PO DAILY vitamin E 1,000 unit Tablet 1 tablet PO DAILY acetaminophen 500 mg capsule 1,000 mg PO Q6H PRN (Reason: pain) Qty: 20 0RF albuterol sulfate 90 mcg/actuation HFA aerosol inhaler 2 puff INHALATION Q4-6H PRN (Reason: shortness of breath or wheezing) bupropion HCl 150 mg tablet extended release 24 hr 150 mg PO .MORNING metoprolol succinate 100 mg tablet extended release 24 hr 100 mg PO HS mirtazapine 15 mg tablet 15 mg PO HS omeprazole 40 mg capsule,delayed release(DR/EC) 40 mg PO QAM meloxicam 15 mg tablet 15 mg PO QAM PRN (Reason: pain) ondansetron HCl 8 mg tablet 8 mg PO Q12H PRN (Reason: nausea and vomiting) Discharge Instructions: Dr. Ankur Espinal M.D [address] [facility] [address] [place] [address] POST-OPERATIVE DISCHARGE INSTRUCTIONS TOTAL KNEE ARTHROPLASTY 1. When resting, do not rest in the chair.When resting, lie on your back, with back flat on the couch or bed, with leg elevated above heart to minimize swelling. You may put a pillow under your head. . Significant swelling could indicate a blood clot and if this occurs call the office (or go to the ER) to have a venous ultrasound. Therefore, do not rest in a chair. 2. At least five times a day spend several minutes stretching your knee into flexion while sitting in the chair and also stretching your knee out straight The abilities to bend your knee fulling and straighten your knee fully are two most important knee functions to focus on during your recovery. 3. It is ok to sit in chair to eat, use the toilet and receive a guest and to do your stretching exercises, but, sitting in a chair will cause your leg to swell. Therefore, avoid additional time sitting in the chair. and don't rest in the chair. 4. Wound Care: Nursing will give you an additional Mepilex dressing at the time of discharge. Patient to remove the dressing and apply a new Mepilex dressing at home 7 days after surgery and leave the dressing on until seen in office. 5. May shower with a Mepilex dressing in place.The water will run off the dressing. 6. Unless you are told otherwise, you may put full weight on your operated leg. Use a walker for balance and practice walking as normally as you can, ideally for a few minutes every hour while you are awake. 7. I would advise against putting ice packs on your knee incision. Ice constricts blood flow which can impar healing of the knee incision. IMPORTANT: Remember not to sit in the chair for more than 30 minutes at a time. As a rule, during the first 14 days after surgery, only sit in the chair to work on the chair knee bending stretch exercise, for meals or for use of the restroom. Sitting in the chair promotes significant swelling in the knee and leg which will make your knee stiff and more painful and which simulates having a blood clot in the veins of the leg. If this type of significant diffuse swelling occurs, an ultrasound at the hospital will be necessary to rule out a blood clot. Be up walking around with the walker for a few minutes every hour while awake and then rest laying on your back on the couch or in bed with your leg elevated on cushions or pillows. Do not rest in the chair.
--- NOTE | 2024-10-06 13:25 | OPREHPOC ---
Outpatient Therapy Plan of Care This is a Multidisciplinary Plan of Care that may contain components documented by all disciplines (PT, OT, and ST.) PT Problem 1 PT Problem #1 Knowledge Deficit PT Goal 1 Goal / Goal Update *indep with HEP Target Visit 8 PT Problem 2 PT Problem #2 Pain PT Goal 1 Goal / Goal Update * decrease pain rating at worst to 6/10 Target Visit 8 PT Problem 3 PT Problem #3 Impaired Flexibility PT Goal 1 Goal / Goal Update increase L knee active ROM, to improve gait and transfer skills: sitting 0' to 125' Target Visit 8 PT Problem 4 PT Problem #4 Impaired Functional Mobility PT Goal 1 Goal / Goal Update * 5 reps sit/stand time of 16 seconds without use of UE, to improve community transfer skills PT Goal 2 Goal / Goal Update * 2 minute walking test distance of 275' Target Visit 8
--- NOTE | 2024-10-06 13:26 | PTOPEVAL1 ---
Assessment and note entered by Milly William, PT Evaluation Information ICD-10 Condition Codes (PT) Pain in left knee M25.562,Encounter for other orthopedic aftercare Z47.89,Aftercare following joint replacement surgery Z47.1 Onset 10-01-24 Subjective Information revision of L TKR on 10-01-24; since home, use wheeled walker, but did not bring today due to problems getting out of house and here for therapy ; have been doing the exercises lying down: ankle, knee bends, strengthen knee and walking; new home oxygen at 2L/min since had knee surgery; activity: prior to surgery used cane; and daughter assist with home tasks; is not working outside of home; 4 entry steps; have basement- rarely go down there due to breathing issues; Reported Pain Level Pain Score Self Report Additional Pain Score Comments pain range in the past day: 6-10/10; with sleeping, pain awakens her 4x/night hydrocodone- 4 x/day and tylenol Assessment PT Clinical Summary Chela has the diagnosis of s/p L TKR revision. The initial knee replacement was 2014. With the hospitalization, she has new home oxygen at 2L/min Her medical history includes R TKR, bilateral foot surgery, L total shoulder, cervical fusion; breast cancer with radiation and chemotherapy. During the evaluation, she had the oxygen at 2L/ min, with increase SOB with supine/sit transfer, LE exercises and gait. Several times, she reported she was nervous about being here and worried to do too much and be SOB. With the evaluation: she came to dept without assistive device; sitting active L knee ROM (-15') to 120' and with supine stretch, extension to (-5'). with the supine mat exercises, she was able to do 10 reps with good control. Skilled PT services are indicated to increase L knee strength and ROM, gait and balance retraining for safety with mobility. Monitor oxygen saturation PRN during sessions, with frequent rests as needed. Education for progression of HEP and gait device use. Plan of Care Interventions Manual Therapy,Neuro Re-education,Patient/ Caregiver Education,Therapeutic Activities, Therapeutic Exercise,Other Other Interventions taping PT Services Indicated Yes Treatment Frequency and 2x/wk for 8 visits Duration These treatments will address the objective and functional deficits as defined above. The patient will be advanced safely and appropriately in order for the patient to progress towards his/her prior level of function. Additional exercises will be introduced and as well as a comprehensive home exercise program upon discharge, if needed, ?to ensure carryover of functional gains achieved in the clinic. This treatment plan has been reviewed and agreement upon by the patient.
--- NOTE | 2024-10-13 13:07 | PCPTNOTE ---
No call No show. AKS
--- NOTE | 2024-10-16 12:53 | PCPTNOTE ---
No call no show. AKS
--- NOTE | 2024-10-20 13:11 | PCPTNOTE ---
Contacted both MD and pt. MD aware that she is not attending Out patient PT. Pt states she has difficulty getting here/OP and trying to get home therapy. Pt to call if she needs our services in the future. GLORIA
--- NOTE | 2024-11-21 12:55 | PTOPDC ---
Assessment and note entered by Milly William, PT Assessment Status Discharge - Pt Not Present ICD-10 Condition Codes (PT) Pain in left knee M25.562,Encounter for other orthopedic aftercare Z47.89,Aftercare following joint replacement surgery Z47.1 Onset 10-01-24 Subjective Information pt was not seen this date. Assessment PT Clinical Summary Chela received the PT evaluation on Oct 06. Then, she did not show for the next 3 scheduled appointments. When she was called, she stated she was going to try and get HH therapy due to problems getting into therapy appts. Discharge PT. The goals were not addressed. Plan of Care PT Services Indicated No
== END 2024-11-21 14:33 | disposition home or self-care (01) ==
LOC: ANHPT 12:18
PROVIDERS: PCP Internal Medicine Infectious Disease; Visit Provider Orthopaedic Surgery
DX: Z47.1 Aftercare following joint replacement surgery (principal); Z96.652 Presence of left artificial knee joint
CPT/HCPCS: 97110; 97161; 97530

== ENCOUNTER 2024-12-09 18:24 | Emergency (ER) | payer OTHER, SELFPAY ==
--- NOTE | ~2024-12-09 | CT_ITS ---
CLINICAL INDICATION: Right flank pain. Personal history of breast cancer post bilateral mastectomy, c hemotherapy and radiation COMPARISON: 05/24/2024. TECHNIQUE: Multiple contiguous axial images of the abdomen and pelvis were performed without the admi nistration of intravenous contrast The dose-length product (DLP) was 973.97 mGy-cm. Automated exposure control and iterative reconstruction technique were employed. FINDINGS/OBSERVATIONS: Visualized lower thorax: The bilateral lung bases are clear. The heart is of normal size, without pericardial effusion. Small hiatal hernia is present. Liver: Punctate calcifications identified within the hepatic parenchyma, suggesting prior granulomato us disease. The remainder of the liver demonstrates otherwise homogeneous attenuation and is enlarged measuring 2 0 cm in longitudinal dimension. Gallbladder and biliary system: The gallbladder is surgically absent. Pancreas: Limited evaluation of the pancreas secondary to the lack of intravenous contrast. Spleen: Punctate calcifications identified within the splenic parenchyma, suggesting prior granulomat ous disease. The remainder of the spleen demonstrates otherwise homogeneous attenuation and is not enlarged. Kidneys: The bilateral kidneys are unremarkable, without hydronephrosis or renal calculi. Adrenal glands: Unremarkable. Gastrointestinal tract: Fecal stasis within the colon. Appendix: Surgically absent. Vasculature: Calcified atherosclerotic disease. Lymph nodes: Limited evaluation without intravenous contrast. Pelvic structures: The bladder is distended, and otherwise unremarkable. The uterus is surgically absent. Body wall and musculoskeletal: Small fat-containing umbilical hernia. Only trace degenerative disease within the lower thoracic and lumbosacral spine. A broad-based disc protrusion is identified at the level of L2/L3 with trace mass effect on the right neural foramen. A right paracentral disc protrusion is identified at the level of L3/L4 with trace mass effect on the right neural foramen. A broad-based disc protrusion is identified at the level of L4/L5 without significant mass effect on either the spinal canal or bilateral neural foramen. No lytic or blastic lesions identified. IMPRESSION: No obstructive uropathy. Trace degenerative disease within the lumbosacral spine at the levels of L2/L3 and L3/L4, as detailed above. Hepatomegaly. Additional findings suggesting prior granulomatous disease. Reviewed, dictated and finalized at location A.
--- NOTE | ~2024-12-09 | CT_ITS ---
EXAMINATION: CT IAC/mastoids BI wo con DATE: 12/09/2024 23:02 INDICATION: TECHNIQUE: Computed tomography (CT) of the temporal bones was performed without intravenous contrast. The dose-length product was 307.68 mGy-cm. COMPARISON: None FINDINGS: No acute intracranial hemorrhage, acute infarction, intracranial masses or abnormal extra axial fluid collection in the visualized portions of the brain. Visualized portions of the ventricles are normal and symmetric. The orbits and paranasal sinuses are normal. RIGHT TEMPORAL BONE: Small amount of cerumen at the right external auditory canal. The tympanic membrane, ossicles and scu david are normal. The mastoid air cells, middle ear cavity including Prussak's space are clear. The ova l window, vestibule, cochlea, semicircular canals, internal auditory canal, vestibular aqueduct and c ourse of the facial nerve are normal. The jugular bulb is unremarkable. LEFT TEMPORAL BONE: The external auditory canal, tympanic membrane, ossicles and scutum are normal. The mastoid air cells , middle ear cavity including Prussak's space are clear. The oval window, vestibule, cochlea, semicir cular canals, internal auditory canal, vestibular aqueduct and course of the facial nerve are normal. The jugular bulb is unremarkable. IMPRESSION: 1. Normal temporal bone CT. Reviewed, dictated and finalized at location B. IMPRESSION: 1. Normal temporal bone CT.
--- OUTSIDE RECORDS SUMMARY | 2024-12-09 18:26 | XMS_ITS | Clinical Summary ---
Author Organization [facility] Address [address] [place] [address] Phone Care Team Providers Care Head Rigger Name Role Phone Key Tolliver MD Primary [...] 77 03/14/2020 9:53 PM CDT Temperature 37.1 C (98.8 F) 03/14/2020 8:05 PM CDT Respiratory Rate 13 03/14/2020 9:53 PM CDT [...] Insurance MEDICAID [employer] Care Teams Head Rigger Relationship Specialty Start Date End Date Key Tolliver MD [address] [place] [address] PCP - General Internal Medicine 03/14/20
--- OUTSIDE RECORDS SUMMARY | 2024-12-09 18:26 | XMS_ITS | Clinical Summary ---
Author Organization [facility] Address [address] [place] [address] Phone Care Team Providers Care Boat Operator Name Role Phone LEILANI MABRY, NILESH Primary Care Provider [phone] Reason for Visit and Chief Complaint RX ISSUE/REFILL Problems Includes: Problems addressed during this encounter and other active Problems All Visits Onset Date Resolved Date Provider Condition S tatus Chronic Pain Syndrome 07/31/2023 NURY ECHAVARRIA PMHNP Active Last Documented On 3 1:32PM ; [facility] Plan of Treatment No Plan of Treatment [...] Last Documented On 4 2:31PM By FELISHA HERRERA-BC ; [facility] Hysingla ER 20 MG Oral Table t ER 24 Hour Abuse-Deterrent 01/21/2024 Provider: FELISHA FREEMAN ANP-BC Diagnosis: Spinal stenosis, lumbar region with neurogenic claudication 1 tablet q 24 hours Last Documented On 4 2:31PM By FELISHA SENIOR ; [facility] oxyCODONE-Acetaminophen 10-325 MG Oral Tablet 05/14/20 24 Provider: Diagnosis: Last Documented On 02/01/2024 8:52AM By Lilli MAK ; [facility] traZODone HCl 100 MG Oral Tablet 11/02/2023 Provider : Diagnosis: Last Documented On 4 10:13AM By Lilli MAK ; [facility] Cyclobenzaprine HCl 10 MG Oral Tablet 10/29/2023 Pro vider: REFUGIO AMARO MD Diagnosis: Last Documented On 4 10:15AM By Lilli MAK ; [facility] Ketoconazole 2% External Cream 10/29/2023 Provider: REFUGIO AMARO MD Diagnosis: Last Documented On 4 10:15AM By Lilli MAK ; [facility] hydrOXYzine HCl 50 MG Oral Tablet 10/26/2023 Provide r: Diagnosis: Last Documented On 4 10:16AM By Lilli MAK ; [facility] Anastrozole 1 MG Oral Tablet 10/24/2023 Provider: Diagnosis: Last Documented On 4 10:16AM By Lilli MAK ; [facility] FeroSul 325 (65 Fe) MG Oral Tablet 10/24/2023 Provid er: Diagnosis: Last Documented On 4 10:18AM By Lilli MAK ; [facility] Venlafaxine HCl ER 225 MG Oral Tablet Extended R elease 24 Hour 10/23/2023 Provider: Diagnosis: Last Documented On 4 10:18AM By Lilli MAK ; [facility] Pregabalin 200 MG Oral Capsule 10/08/2023 Provider: FELISHA SENIOR Diagnosis: Fibromyalgia TAKE 1 CAPSULE BY MOUTH TWICE DAILY Last Documented On 4 1:51PM By FELISHA SENIOR ; [facility] Omeprazole 40 MG Oral Capsule Delayed Release 08/11/20 Provider: Diagnosis: Last Documented On 4 10:17AM By Lilli MAK ; [facility] Lisinopril 40 MG Oral Tablet 04/11/2023 Provider: REFUGIO AMARO MD Diagnosis: Last Documented On 3 10:40AM By Lilli MAK ; [facility] Famotidine 20 MG Oral Tablet 01/23/2023 Provider: Diagnosis: Last Documented On 02/05/2023 4:01PM By Lilli MAK ; [facility] ARIPiprazole 2 MG Oral Tablet 01/09/2023 Provider: Diagnosis: Last Documented On 02/05/2023 4:04PM By Lilli MAK ; [facility] busPIRone HCl 15 MG Oral Tablet 09/20/2022 Provider: Diagnosis: Last Documented On 02/05/2023 4:05PM By Lilli MAK ; [facility] NIFEdipine ER 30 MG Oral Tab let Extended Release 24 Hour 05/04/2022 Provider: REFUGIO AMARO MD Diagnosis: Last Documented On 05/09/2022 3:25PM By Lilli MAK ; [facility] Metoprolol Succinate ER 200M G Oral Tablet Extended Release 24 Hour 10/03/2018 Provider: Diagnosis: Last Documented On 9 3:00PM By VENKAT MAK ; [facility] Medications Administered Includes: Administered Medications from this encounter No Administered Medications Recorded Results Includes: Results discussed during this encounter No Results Recorded For Specified Dates History of Present Illness Includes: History of Present Illness from this encounter No History of Present Illness Recorded Social History Description Last Updated Tobacco non-user 11/07/2023 Last Documented On 4 2:03PM ; [facility] Alcohol 07/31/2023 Last Documented On 4 2:03PM ; [facility] Consuming 5 or more drinks per day None 07/31/2023 Last Documented On 4 2:03PM ; [facility] Current nonsmoker 07/31/2023 Last Documented On 4 2:03PM ; [facility] Drug use 07/31/2023 Last Documented On 4 2:03PM ; [facility] Lives with spouse 07/31/2023 Last Documented On 4 2:03PM ; [facility] Non-smoker 07/31/2023 Last Documented On 4 2:03PM ; [facility] Number of times used recreat ional drug/ prescription drug for nonmedical reason. None 07/31/2023 Last Documented On 4 2:03PM ; [facility] Smoking status : Never smoker 08/07/2019 Last Documented On 4 2:03PM ; [facility] Currently 10/03/2018 Last Documented On 4 2:03PM ; [facility] Medical History Includes: Medical History addressed during this encounter Description Last Updated Reviewed and Unchanged 10/10/2019 Last Documented On 4 2:03PM ; [facility] Currently wearing eyeglasses 10/03/2018 Last Documented On 4 2:03PM ; [facility] Previously 3 time(s) 10/03/2018 Last Documented On 4 2:03PM ; [facility] History of arthritis 10/03/2018 Last Documented On 4 2:03PM ; [facility] History of cancer 10/03/2018 Last Documented On 4 2:03PM ; [facility] History of hypertension 10/03/2018 Last Documented On 4 2:03PM ; [facility] Family History Includes: Family History addressed [...] Active Last Documented On 4 8:53AM ; [facility] Encounters Encounter Provider Location Date Check-In Time Check-Out Time Diagnosis RX ISSUE/REFILL FELISHA HERRERA-TAMIKO 12/14/2023 2:04PM 11:59PM Insurance Includes: Active Insurance Policies Plan Name Member ID Group # Subscriber Relationship Effect nieves Dates 1 - [facility] [id number] KATHY Sanchez Clinical Notes Includes: Clinical Notes from this encounter * Progress note Date Encounter Last Documented by 12/14/2023 RX ISSUE/REFILL Last documented on 12/17/2023; 2:39 PM, FELISHA GIBSON ANP-; [facility] Active Problems & Conditions [...]
--- OUTSIDE RECORDS SUMMARY | 2024-12-09 18:26 | XMS_ITS | Clinical Summary ---
Author Organization [facility] Address [address] [place] [address] Phone Care Team Providers Care Bag Bailer Name Role Phone LEILANI MABRY, NILESH Primary Care Provider [phone] Reason for Visit and Chief Complaint The Chief Complaint is: FU MEDS ~ADDED TYLENOL 500, TAKING #2 BID Problems Includes: Problems addressed during this encounter and other active Problems Current Visit Onset Date Resolved Date Provider Charla jones Status Chronic Pain Syndrome 07/31/2023 HARLEEN COULTER PMHNP Active Last Documented On 3 1:32PM ; [facility] Plan of Treatment Education and Decision Aids were provided during visit for: Pill Count: two HYSINGLA Last Documented On 4 11:00AM ; [facility] Pill Count: HYDROCODONE ~out of medication Last Documented On 4 11:43AM ; [facility] Assessments Includes: Assessments from this encounter Findings - Systemic lupus erythematosus [M32.9 - Systemic lupus erythematosus, unspecified] - Last Documented On 12/17/2023 1:18PM ; [facility] - Sacroiliitis [M46.1 - Sacroiliitis, not elsewhere classified] - Last Documented On 12/17/2023 1:18PM ; [facility] - Lumbar spondylosis with radiculopathy [M47.26 - Other spondylosis with radiculopathy, lumbar region] - Last Documented On 12/17/2023 1:18PM ; [facility] - Lumbar stenosis with neurogenic claudication [M48.062 - Spinal stenosis, lumbar region with neurogenic claudication] - Last Documented On 12/17/2023 1:18PM ; [facility] - Fibromyalgia [M79.7 - Fibromyalgia] - Last Documented On 12/17/2023 1:18PM ; [facility] - Chronic pain syndrome [G89.4 - Chronic pain syndrome] - Last Documented On 12/17/2023 1:18PM ; [facility] - custodial use of opiate analgesic [Z79.891 - custodial (current) use of opiate analgesic] - Last Documented On 12/17/2023 1:18PM ; [facility] Instructions Includes: Instructions from this encounter Education and Decision Aids were provided during visit for: Pill Count: two HYSINGLA Last Documented On 4 11:00AM ; [facility] Pill Count: HYDROCODONE ~out of medication Last Documented On 4 11:43AM ; [facility] Medical Equipment - Implanted Devices Includes: [...] On 4 11:11AM By FELISHA SENIOR ; [facility] New / Renewed during this visit FELISHA SENIOR on 12/17/2023 Hysingla ER 20 MG Oral Table t ER 24 Hour Abuse-Deterrent Provider: FELISHA SENIOR 30 day supply: 30 tablet, 0 refills Diagnosis: Spinal stenosis, lumbar region with neurogenic claudication 1 tablet q 24 hours [facility] [address] [facility], [phone] - Last Documented On 4 2:27PM By FELISHA SENIOR ; [facility] Current Medications (continue as prescribed) Narcan 4 MG/0.1ML Nasal Liquid 01/21/2024 [facility] Diagnosis: Spinal stenosis, lumbar region with neurogenic claudication as directed Last Documented On 4 2:31PM [facility] ; [facility] Hysingla ER 20 MG Oral Table t ER 24 Hour Abuse-Deterrent 01/21/2024 [facility] Diagnosis: Spinal stenosis, lumbar region with neurogenic claudication 1 tablet q 24 hours Last Documented On 4 2:31PM [facility] ; [facility] oxyCODONE-Acetaminophen 10-325 MG Oral Tablet 01/15/20 Provider: Diagnosis: Last Documented On 02/01/2024 8:52AM By Lilli MAK ; [facility] traZODone HCl 100 MG Oral Tablet 11/02/2023 Provider : Diagnosis: Last Documented On 4 10:13AM By Lilli MAK ; [facility] Cyclobenzaprine HCl 10 MG Oral Tablet 10/29/2023 Pro vider: REFUGIO AMARO MD Diagnosis: Last Documented On 4 10:15AM By Lilli MAK ; [facility] Ketoconazole 2% External Cream 10/29/2023 Provider: REFUGIO AMARO MD Diagnosis: Last Documented On 4 10:15AM By Lilli MAK ; [facility] hydrOXYzine HCl 50 MG Oral Tablet 10/26/2023 Provide r: Diagnosis: Last Documented On 4 10:16AM By Lilli MAK ; [facility] Anastrozole 1 MG Oral Tablet 10/24/2023 Provider: Diagnosis: Last Documented On 4 10:16AM By Lilli MAK ; [facility] FeroSul 325 (65 Fe) MG Oral Tablet 10/24/2023 Provid er: Diagnosis: Last Documented On 4 10:18AM By Lilli MAK ; [facility] Venlafaxine HCl ER 225 MG Oral Tablet Extended R elease 24 Hour 10/23/2023 Provider: Diagnosis: Last Documented On 4 10:18AM By Lilli MAK ; [facility] Pregabalin 200 MG Oral Capsule 10/08/2023 Provider: FELISHA WU Diagnosis: Fibromyalgia TAKE 1 CAPSULE BY MOUTH TWICE DAILY Last Documented On 4 1:51PM By FELISHA SENIOR ; [facility] Omeprazole 40 MG Oral Capsule Delayed Release 08/11/20 Provider: Diagnosis: Last Documented On 4 10:17AM By Lilli MAK ; [facility] Lisinopril 40 MG Oral Tablet 04/11/2023 Provider: REFUGIO AMARO MD Diagnosis: Last Documented On 3 10:40AM By Lilli MAK ; [facility] Famotidine 20 MG Oral Tablet 01/23/2023 Provider: Diagnosis: Last Documented On 02/05/2023 4:01PM By Lilli MAK ; [facility] ARIPiprazole 2 MG Oral Tablet 01/09/2023 Provider: Diagnosis: Last Documented On 02/05/2023 4:04PM By Lilli MAK ; [facility] busPIRone HCl 15 MG Oral Tablet 09/20/2022 Provider: Diagnosis: Last Documented On 02/05/2023 4:05PM By Lilli MAK ; [facility] NIFEdipine ER 30 MG Oral Tab let Extended Release 24 Hour 05/04/2022 Provider: REFUGIO AMARO MD Diagnosis: Last Documented On 05/09/2022 3:25PM By Lilli MAK ; [facility] Metoprolol Succinate ER 200M G Oral Tablet Extended Release 24 Hour 10/03/2018 Provider: Diagnosis: Last Documented On 9 3:00PM By VENKAT MAK ; [facility] Medications Administered Includes: Administered Medications from this encounter No Administered Medications Recorded Vital Signs Includes: Vital Signs from this encounter Vital Name 12/17/2023 10:57A Temp-Oral (F) 98.6 Height (in) 65 Weight (lb) 215 Body Mass Index 35.8 Body Surface Area 2 Pain Level 8 Last Documented: On 12/17/2023 10:59A M ; [facility] Results Includes: Results discussed during [...] spinal cord summation trial using 28 contact V[employer] percutaneous leads. His replacement. Guidance. Patient tolerated the procedure well. Despite multiple efforts approved reprogramming, and a report back to the [employer] labor service representative that she was getting approximate [...] psychological evaluation and meeting with the [employer] labor service representative. Psychological evaluation revealed no barriers [...] need a refill of hydrocodone today. [place] ADJUNCT PROFESSOR OF VOICE appropriate. Last UDS appropriate, this will be [...] simulation trial under fluoroscopic guidance. Of note, [place] prescription monitoring database was reviewed and found [...] UDS appropriate. We will repeat this today. [facility] appropriate. She has exhibited no signs of [...] allows her to maintain function levels. [place] ADJUNCT PROFESSOR OF VOICE is appropriate. UDS was appropriate Past note: [...] for visit: Provider: Privacy of provider's office. [address] [place] [id number] Patient: Patient personal setting Total time spent with patient via telecommunication minutes Social History Description Last Updated Tobacco non-user 11/07/2023 Last Documented On 4 10:56AM ; [facility] Alcohol 07/31/2023 Last Documented On 4 10:56AM ; [facility] Consuming 5 or more drinks per day None 07/31/2023 Last Documented On 4 10:56AM ; [facility] Current nonsmoker 07/31/2023 Last Documented On 4 10:56AM ; [facility] Drug use 07/31/2023 Last Documented On 4 10:56AM ; [facility] Lives with spouse 07/31/2023 Last Documented On 4 10:56AM ; [facility] Non-smoker 07/31/2023 Last Documented On 4 10:56AM ; [facility] Number of times used recreat ional drug/ prescription drug for nonmedical reason. None 07/31/2023 Last Documented On 4 10:56AM ; [facility] Smoking status : Never smoker 08/07/2019 Last Documented On 4 10:56AM ; [facility] Currently 10/03/2018 Last Documented On 4 10:56AM ; [facility] Procedures and Surgical History Includes: Procedures from this encounter Procedures Code Diagnosis Performing Provider Service Location Service Date CLINIC VISIT [id number] Other spondylosi s with radiculopathy, lumbar region, Systemic lupus erythematosus, unspecified, custodial (current) use of opiate analgesic, Spinal stenosis, lumbar region with neurogenic claudication FELISHA ROTHMAN ANP[facility] 12/17/2023 Last Documented On 4 12:11PM ; [facility] use of tobacco assessment performed 1000F Last Documented On 4 10:59AM ; [facility] review of medications documented 1160F Last Documented On 4 10:59AM ; [facility] Clinical summary provided to patient via portal/mailed. ~ Patient understands and agrees with treatment plan. Questions answered Last Documented On 4 11:43AM ; [facility] Medical History Includes: Medical History addressed during this encounter Description Last Updated Reviewed and Unchanged 10/10/2019 Last Documented On 4 10:56AM ; [facility] Currently wearing eyeglasses 10/03/2018 Last Documented On 4 10:56AM ; [facility] Previously 3 time(s) 10/03/2018 Last Documented On 4 10:56AM ; [facility] History of arthritis 10/03/2018 Last Documented On 4 10:56AM ; [facility] History of cancer 10/03/2018 Last Documented On 4 10:56AM ; [facility] History of hypertension 10/03/2018 Last Documented On 4 10:56AM ; [facility] Family History Includes: Family History [...] Active Last Documented On 4 8:53AM ; [facility] Encounters Encounter Provider Location Date Check-In Time Check-Out Time Diagnosis TELEHEALTH FELISHA SENIOR [facility] 12/17/19 24 10:55AM 11:15AM Systemic Lupus Erythematosus,Chr onic Pain Syndrome,Sacroili itis,Fibromyalgia ,Spinal Stenosis Lumbar with Neurogenic Claudication,Spon dylosis with Radiculopathy Lumbar Region,Senior Care Use of Opiate Analgesic Insurance Includes: Active Insurance Policies Plan Name Member ID Group # Subscriber Relationship Effect nieves Dates 1 - [facility] [id number] KATHY MCUNLTY Self Clinical Notes Includes: Clinical Notes from this encounter * Progress note Date Encounter Last Documented by 12/17/2023 TELEHEALTH Last documented on 12/17/2023; 1:18 PM, FELISHA SENIOR; [facility] Active Problems & [...] spinal cord summation trial using 28 contact V[employer] percutaneous leads. His replacement. Guidance. Patient tolerated the procedure well. Despite multiple efforts approved reprogramming, and a report back to the [employer] labor service representative that she was getting approximate [...] psychological evaluation and meeting with the [employer] labor service representative. Psychological evaluation revealed no barriers [...] need a refill of hydrocodone today. [place] [employer]JUNCT PROFESSOR OF VOICE appropriate. Last UDS appropriate, this will be [...] simulation trial under fluoroscopic guidance. Of note, [place] prescription monitoring database was reviewed and found [...] UDS appropriate. We will repeat this today. [facility] appropriate. She has exhibited no signs of [...] Medication allows her to maintain function levels. [place] [employer]JUNCT PROFESSOR OF VOICE is appropriate. UDS was appropriate Past note: [...] syndrome [G89.4 - Chronic pain syndrome] - custodial use of opiate analgesic [Z79.891 - rodent exterminator (current) use of opiate analgesic] Therapy - [...] for visit: Provider: Privacy of provider's office. [address] [place] [address].[place] [address] Patient: Patient personal setting Total time spent with patient via telecommunication minutes
--- OUTSIDE RECORDS SUMMARY | 2024-12-09 18:26 | XMS_ITS | Clinical Summary ---
Author Organization [facility] Address [address] [place] [address] Phone Care Team Providers Care Junior Account Executive Name Role Phone LEILANI MABRY, NILESH Primary Care Provider [phone] Reason for Visit and Chief Complaint RX ISSUE/REFILL Problems Includes: Problems addressed during this encounter and other active Problems All Visits Onset Date Resolved Date Provider Condition S tatus Chronic Pain Syndrome 07/31/2023 NURY ECHAVARRIA PMHNP Active Last Documented On 3 1:32PM ; [facility] Plan of Treatment No Plan of [...] On 4 2:31PM By FELISHA HERRERA-BC ; [facility] Hysingla ER 20 MG Oral Table t ER 24 Hour Abuse-Deterrent 01/21/2024 Provider: FELISHA FREEMAN ANP-BC Diagnosis: Spinal stenosis, lumbar region with neurogenic claudication 1 tablet q 24 hours Last Documented On 4 2:31PM By FELISHA SENIOR ; [facility] oxyCODONE-Acetaminophen 10-325 MG Oral Tablet 05/14/20 24 Provider: Diagnosis: Last Documented On 02/01/2024 8:52AM By Lilli MAK ; [facility] traZODone HCl 100 MG Oral Tablet 11/02/2023 Provider : Diagnosis: Last Documented On 4 10:13AM By Lilli MAK ; [facility] Cyclobenzaprine HCl 10 MG Oral Tablet 10/29/2023 Pro vider: REFUGIO AMARO MD Diagnosis: Last Documented On 4 10:15AM By Lilli MAK ; [facility] Ketoconazole 2% External Cream 10/29/2023 Provider: REFUGIO AMARO MD Diagnosis: Last Documented On 4 10:15AM By Lilli MAK ; [facility] hydrOXYzine HCl 50 MG Oral Tablet 10/26/2023 Provide r: Diagnosis: Last Documented On 4 10:16AM By Lilli MAK ; [facility] Anastrozole 1 MG Oral Tablet 10/24/2023 Provider: Diagnosis: Last Documented On 4 10:16AM By Lilli MAK ; [facility] FeroSul 325 (65 Fe) MG Oral Tablet 10/24/2023 Provid er: Diagnosis: Last Documented On 4 10:18AM By Lilli MAK ; [facility] Venlafaxine HCl ER 225 MG Oral Tablet Extended R elease 24 Hour 10/23/2023 Provider: Diagnosis: Last Documented On 4 10:18AM By Lilli MAK ; [facility] Pregabalin 200 MG Oral Capsule 10/08/2023 Provider: FELISHA SENIOR Diagnosis: Fibromyalgia TAKE 1 CAPSULE BY MOUTH TWICE DAILY Last Documented On 4 1:51PM By FELISHA SENIOR ; [facility] Omeprazole 40 MG Oral Capsule Delayed Release 08/11/20 Provider: Diagnosis: Last Documented On 4 10:17AM By Lilli MAK ; [facility] Lisinopril 40 MG Oral Tablet 04/11/2023 Provider: REFUGIO AMARO MD Diagnosis: Last Documented On 3 10:40AM By Lilli MAK ; [facility] Famotidine 20 MG Oral Tablet 01/23/2023 Provider: Diagnosis: Last Documented On 02/05/2023 4:01PM By Lilli MAK ; [facility] ARIPiprazole 2 MG Oral Tablet 01/09/2023 Provider: Diagnosis: Last Documented On 02/05/2023 4:04PM By Lilli MAK ; [facility] busPIRone HCl 15 MG Oral Tablet 09/20/2022 Provider: Diagnosis: Last Documented On 02/05/2023 4:05PM By Lilli MAK ; [facility] NIFEdipine ER 30 MG Oral Tab let Extended Release 24 Hour 05/04/2022 Provider: REFUGIO AMARO MD Diagnosis: Last Documented On 05/09/2022 3:25PM By Lilli MAK ; [facility] Metoprolol Succinate ER 200M G Oral Tablet Extended Release 24 Hour 10/03/2018 Provider: Diagnosis: Last Documented On 9 3:00PM By VENKAT MAK ; [facility] Medications Administered Includes: Administered Medications from this encounter No Administered Medications Recorded Results Includes: Results discussed during this encounter No Results Recorded For Specified Dates History of Present Illness Includes: History of Present Illness from this encounter No History of Present Illness Recorded Social History Description Last Updated Tobacco non-user 11/07/2023 Last Documented On 4 1:35PM ; [facility] Alcohol 07/31/2023 Last Documented On 4 1:35PM ; [facility] Consuming 5 or more drinks per day None 07/31/2023 Last Documented On 4 1:35PM ; [facility] Current nonsmoker 07/31/2023 Last Documented On 4 1:35PM ; [facility] Drug use 07/31/2023 Last Documented On 4 1:35PM ; [facility] Lives with spouse 07/31/2023 Last Documented On 4 1:35PM ; [facility] Non-smoker 07/31/2023 Last Documented On 4 1:35PM ; [facility] Number of times used recreat ional drug/ prescription drug for nonmedical reason. None 07/31/2023 Last Documented On 4 1:35PM ; [facility] Smoking status : Never smoker 08/07/2019 Last Documented On 4 1:35PM ; [facility] Currently 10/03/2018 Last Documented On 4 1:35PM ; [facility] Medical History Includes: Medical History addressed during this encounter Description Last Updated Reviewed and Unchanged 10/10/2019 Last Documented On 4 1:35PM ; [facility] Currently wearing eyeglasses 10/03/2018 Last Documented On 4 1:35PM ; [facility] Previously 3 time(s) 10/03/2018 Last Documented On 4 1:35PM ; [facility] History of arthritis 10/03/2018 Last Documented On 4 1:35PM ; [facility] History of cancer 10/03/2018 Last Documented On 4 1:35PM ; [facility] History of hypertension 10/03/2018 Last Documented On 4 1:35PM ; [facility] Family History Includes: Family History [...] Active Last Documented On 4 8:53AM ; [facility] Encounters Encounter Provider Location Date Check-In Time Check-Out Time Diagnosis RX ISSUE/REFILL FELISHA HERRERA-TAMIKO 01/18/2024 1:35PM 11:59PM Insurance Includes: Active Insurance Policies Plan Name Member ID Group # Subscriber Relationship Effect nieves Dates 1 - [facility] [id number] KATHY Sanchez Clinical Notes Includes: Clinical Notes from this encounter * Progress note Date Encounter Last Documented by 01/18/2024 RX ISSUE/REFILL Last documented on 01/21/2024; 2:27 PM, FELISHA GIBSON ANP-; [facility] Active Problems & Conditions [...]
--- OUTSIDE RECORDS SUMMARY | 2024-12-09 18:26 | XMS_ITS ---
Care Plan - [facility] Created on: December 09, 2024 KATHY MENDENHALL : 1970 Sex: Female Author Organization [facility] Address [address] [place] [address] Phone Care Team Providers Care Voice Systems Engineer Name Role Phone NILESH DUKE MD Primary Care Provider [phone]
--- OUTSIDE RECORDS SUMMARY | 2024-12-09 18:26 | XMS_ITS | Encounter Summary ---
Author Organization [facility] Address [address] [place] [address] Care Team Providers Care Plans Examiner Name Role Phone Key Tolliver MD Primary Care Provider Reason for Visit * Reason Comments Medication Refill Encounter Details Date Type Department Care Team ([facility] Contact Info) Description 11/20/2021 [facility] [id number] [place] [address] Rodolfo Truong MD [address] [place], [place] [id number] Social History Tobacco Use Types Packs/Day Years Used Date Smoking Tobacco: Never Smokeless Tobacco: Never Alcohol Use Standard Drinks/Week Comments No 0 (1 standard drink = 0.6 oz pur e alcohol) Comments No Sex and Gender Information Value Date Recorded Sex Assigned at Not on file Legal Sex Female 1:52 PM EMAIL SPECIALIST Gender Identity Not on file Sexual Orientation Not on file documented as of this encounter Plan of Treatment Upcoming Encounters Date Type Department Care Team ([facility] Contact Info) Description 04/14/2025 11:30 AM CDT Office Visit [facility] Oncology and Hematology - [address] [facility] [place] [address] [place] [address] Evan Willis MD [address] [facility] [address] [place] [address] 08/17/2025 1:00 PM EMAIL SPECIALIST Office Visit [facility] Plastic Surgery at the [facility] [address] [place] [address] Rodolfo Truong MD [address] [facility] [address] [place] [address] documented as of this encounter Visit Diagnoses Not on filedocumented in this encounter Care Teams Plans Examiner Relationship Specialty [place] [address] [place] [id number] PCP - General Internal Medicine 11/05/18 documented as of this encounter
--- OUTSIDE RECORDS SUMMARY | 2024-12-09 18:26 | XMS_ITS | Clinical Summary ---
Author Organization [facility] Address [address] [place] [address] Phone Care Team Providers Care Senior Energy Consultant Name Role Phone NILESH DUKE MD Primary Care Provider [phone] Reason for Visit and Chief Complaint * PHONE CALL Problems Includes: Problems addressed during this encounter and other active Problems All Visits Onset Date Resolved Date Provider Condition S tatus Chronic Pain Syndrome 07/31/2023 NURY ECHAVARRIA PMHNP Active Last Documented On 3 1:32PM ; [facility] Plan of Treatment No Plan of [...] On 4 2:31PM By FELISHA WUBC ; [facility] Hysingla ER 20 MG Oral Table t ER 24 Hour Abuse-Deterrent 01/21/2024 Provider: FELISHA FREEMAN ANP-BC Diagnosis: Spinal stenosis, lumbar region with neurogenic claudication 1 tablet q 24 hours Last Documented On 4 2:31PM By FELISHA SENIOR ; [facility] oxyCODONE-Acetaminophen 10-325 MG Oral Tablet 01/15/20 24 Provider: Diagnosis: Last Documented On 02/01/2024 8:52AM By Lilli MAK ; [facility] traZODone HCl 100 MG Oral Tablet 11/02/2023 Provider : Diagnosis: Last Documented On 4 10:13AM By Lilli MAK ; [facility] Cyclobenzaprine HCl 10 MG Oral Tablet 10/29/2023 Pro vider: REFUGIO AMARO MD Diagnosis: Last Documented On 4 10:15AM By Lilli MAK ; [facility] Ketoconazole 2% External Cream 10/29/2023 Provider: REFUGIO AMARO MD Diagnosis: Last Documented On 4 10:15AM By Lilli MAK ; [facility] hydrOXYzine HCl 50 MG Oral Tablet 10/26/2023 Provide r: Diagnosis: Last Documented On 4 10:16AM By Lilli MAK ; [facility] Anastrozole 1 MG Oral Tablet 10/24/2023 Provider: Diagnosis: Last Documented On 4 10:16AM By Lilli MAK ; [facility] FeroSul 325 (65 Fe) MG Oral Tablet 10/24/2023 Provid er: Diagnosis: Last Documented On 4 10:18AM By Lilli MAK ; [facility] Venlafaxine HCl ER 225 MG Oral Tablet Extended R elease 24 Hour 10/23/2023 Provider: Diagnosis: Last Documented On 4 10:18AM By Lilli MAK ; [facility] Pregabalin 200 MG Oral Capsule 10/08/2023 Provider: FELISHA SENIOR Diagnosis: Fibromyalgia TAKE 1 CAPSULE BY MOUTH TWICE DAILY Last Documented On 4 1:51PM By FELISHA SENIOR ; [facility] Omeprazole 40 MG Oral Capsule Delayed Release 08/11/20 Provider: Diagnosis: Last Documented On 4 10:17AM By Lilli MAK ; [facility] Lisinopril 40 MG Oral Tablet 04/11/2023 Provider: REFUGIO AMARO MD Diagnosis: Last Documented On 3 10:40AM By Lilli MAK ; [facility] Famotidine 20 MG Oral Tablet 01/23/2023 Provider: Diagnosis: Last Documented On 02/05/2023 4:01PM By Lilli MAK ; [facility] ARIPiprazole 2 MG Oral Tablet 01/09/2023 Provider: Diagnosis: Last Documented On 02/05/2023 4:04PM By Lilli MAK ; [facility] busPIRone HCl 15 MG Oral Tablet 09/20/2022 Provider: Diagnosis: Last Documented On 02/05/2023 4:05PM By Lilli MAK ; [facility] NIFEdipine ER 30 MG Oral Tab let Extended Release 24 Hour 05/04/2022 Provider: REFUGIO AMARO MD Diagnosis: Last Documented On 05/09/2022 3:25PM By Lilli MAK ; [facility] Metoprolol Succinate ER 200M G Oral Tablet Extended Release 24 Hour 10/03/2018 Provider: Diagnosis: Last Documented On 9 3:00PM By VENKAT MAK ; [facility] Medications Administered Includes: Administered Medications from this encounter No Administered Medications Recorded Results Includes: Results discussed during this encounter No Results Recorded For Specified Dates History of Present Illness Includes: History of Present Illness from this encounter No History of Present Illness Recorded Social History Description Last Updated Tobacco non-user 11/07/2023 Last Documented On 4 11:54AM ; [facility] Alcohol 07/31/2023 Last Documented On 4 11:54AM ; [facility] Consuming 5 or more drinks per day None 07/31/2023 Last Documented On 4 11:54AM ; [facility] Current nonsmoker 07/31/2023 Last Documented On 4 11:54AM ; [facility] Drug use 07/31/2023 Last Documented On 4 11:54AM ; [facility] Lives with spouse 07/31/2023 Last Documented On 4 11:54AM ; [facility] Non-smoker 07/31/2023 Last Documented On 4 11:54AM ; [facility] Number of times used recreat ional drug/ prescription drug for nonmedical reason. None 07/31/2023 Last Documented On 4 11:54AM ; [facility] Smoking status : Never smoker 08/07/2019 Last Documented On 4 11:54AM ; [facility] Currently 10/03/2018 Last Documented On 4 11:54AM ; [facility] Medical History Includes: Medical History addressed during this encounter Description Last Updated Reviewed and Unchanged 10/10/2019 Last Documented On 4 11:54AM ; [facility] Currently wearing eyeglasses 10/03/2018 Last Documented On 4 11:54AM ; [facility] Previously 3 time(s) 10/03/2018 Last Documented On 4 11:54AM ; [facility] History of arthritis 10/03/2018 Last Documented On 4 11:54AM ; [facility] History of cancer 10/03/2018 Last Documented On 4 11:54AM ; [facility] History of hypertension 10/03/2018 Last Documented On 4 11:54AM ; [facility] Family History Includes: Family History addressed [...] Active Last Documented On 4 8:53AM ; [facility] Encounters Encounter Provider Location Date Check-In Time Check-Out Time Diagnosis * PHONE CALL FELISHA SENIOR 12/21/2023 11:54AM 11:59PM Insurance Includes: Active Insurance Policies Plan Name Member ID Group # Subscriber Relationship Effect nieves Dates - [facility] [id number] KATHY Sanchez Clinical Notes Includes: Clinical Notes from this encounter * Progress note Date Encounter Last Documented by 12/21/2023 * PHONE CALL Last documented on 12/28/2023; 8:42 AM, FELISHA GIBSON ANP-; [facility] Active Problems & Conditions - Chronic Pain Syndrome Chief Complaint Phone Call - Chief Concern: reason for call:pt wanted to let you know she was given tramadol, i just picked it up but tramadol doesn't do anything for me , she just wanted you to be aware she was given this rx, liborios pt phone # for return call:[phone] date/initials:12/21/23, kms. Past Medical/Surgical History Reported: Medical: [...]
--- OUTSIDE RECORDS SUMMARY | 2024-12-09 18:26 | XMS_ITS | Clinical Summary ---
Author Organization [facility] Address [address] [place], [place] [address] [address] Care Team Providers Care Contract Negotiation Manager Name Role Phone Key Tolliver MD Primary Care Provider [phone] Allergies Active Allergy Reactions Criticality Noted Date [...] EVERY DAY 90 Tablet 2 3 Active vitamin E 1,000 unit Capsule Take [...] Tablet 4 Active naloxone (NARCAN) 4 mg/spray [place], Non-Aerosol EMERGENCY USE ONLY: Administer 1 spray [...] Amount: 30 mg 20 Tablet 4 Active FeroSuL 325 mg (65 mg iron) tablet TAKE 1 TABLET BY MOUTH DAILY 90 Tablet 1 5 Active Active Problems Problem Noted Date Diagnosed [...] Encounters Date Type Department Care Team Description 11/20/2024 Telephone [facility] Plastic Surgery at the [facility] [address] [place] [address] Rodolfo Truong MD Wants Appointment 11/08/2024 External Device Data ST[facility] ABSTRACTION Provider, Abstract 11/08/2024 External Device Data [place] ABSTRACTION Provider, Abstract 11/03/2024 Refill [facility] Oncology and Hematology - [facility] Emer[address] [place] [address] Evan Willis MD 10/07/2024 External Device Data [place] ABSTRACTION Provider, Abstract 10/01/2024 External Device Data [place] ABSTRACTION Provider, Abstract 09/16/2024 External Device Data [place] ABSTRACTION Provider, Abstract from Last 3 Months Immunizations Immunization Administration [...] on file Legal Sex Female 1:52 PM PHARM SPEC Gender Identity Not on file Sexual Orientation Not on file Last Filed Vital Signs Vital Sign Reading Time Taken Comments Blood Pressure 153/86 08/11/2024 12:55 PM PHARM SPEC Pulse 88 07/28/2024 12:10 PM PHARM SPEC Temperature 36.3 C (97.4 F) 07/28/2024 12:10 PM PHARM SPEC Respiratory Rate 20 07/28/2024 12:10 PM PHARM SPEC Oxygen Saturation 94% 07/28/2024 12:10 PM PHARM SPEC Inhaled Oxygen Concentration - - Weight 104.8 kg (231 lb) 08/11/2024 12:55 PM PHARM SPEC Height 165.1 cm (5' 5 ) 08/11/2024 12:55 PM PHARM SPEC Body Mass Index 38.44 08/11/2024 12:55 PM PHARM SPEC Plan of Treatment Upcoming Encounters Date Type Department Care Team (Late st Contact Info) Description 04/14/2025 11:30 AM CDT Office Visit [facility] Oncology and Hematology - Teddy [address] [facility] [address] [place] [address] Evan Willis MD [address] [facility] [address] [place] [address] 08/17/2025 1:00 PM PHARM SPEC Office Visit [facility]astic Surgery at the [facility] [address] [facility] [address] [place] [address] Rodolfo Truong MD [address] [address] Health Maintenance Due Date Last Done Comments Pre-Diabetes and Diabetes Screening 1970 HEPATITIS B VACCINES (1 of 3 - 19+ 3-dose series) 1988 FIT-DNA Q 3 years 2014 FIT/FOBT Q 1 year 2014 Flex Sig/CT Colonography Q 5 years 2014 ZOSTER VACCINE (1 of 2) 2019 INFLUENZA VACCINE (#1) 2024 9, 05/15/2018, 07/20/2017, Additional history exists COLORECTAL SCREENING 01/01/2027 01/01/2017, 06/23/20 11 Colorectal Cancer Screening 01/01/2027 DTAP/TDAP/TD VACCINES (2 - T d or Tdap) 09/11/2027 09/11/2017 Medical Devices Implanted Type Area Food Service Specialist Device Identifier Shelf Expiration Date Model / Serial / Lot Semiconductor Processing Technician Clip Surgiclip Ii Yordan 9.75in [id number] - [id number] Implanted:Qty: 1 on 10/23/2019 by Rodolfo Truong MD at [facility] Clip N/A: Breast MEDTRONIC - COVIDIEN [id number] 06/02/2024 [id number] / / [id number] Natrelle Inspira Softtouch Breast Implant Implanted:Qty: 1 on 07/28/2024 by Rodolfo Truong MD at [facility] Other Right: Breast ALLERGAN- MEDICAL [id number] 10/08/2028 SSX-750 / [id number] / Natrelle Inspira Softtouch Breast Implant Implanted:Qty: 1 on 07/28/2024 by Rodolfo Truong MD at [facility] Other Left: Breast ALLERGAN- MEDICAL [id number] 07/16/2026 SSF-745 / [id number] / Description:Both Allergan Im plants Requisition,[id number]. Knee Replacement-Yves Plate/ Screws Of Neck Left Shoulder Replacement Explanted Type Area Food Service Specialist Device Identifier Shelf Expiration Date Model / Serial / Lot Tissue Senior Quality Analyst W/ Suture Tabs Implanted:Qty: 1 on 10/23/2019 by Rodolfo Truong MD at [facility] Explanted:Qty: 1 on 04/06/2020 at [facility] Mammary Left: Breast ALLERGAN- MEDICAL [id number] 07/07/2024 133S-MX-1 3-T / [id number] / Description:Filled with 120m l 0.9% NaCl Both Allergan tissue expanders are processed on requisition [id number]. Tissue Senior Quality Analyst With Suture Tabs Implanted:Qty: 1 on 10/23/2019 by Rodolfo Truong MD at [facility] Explanted:Qty: 1 on 04/06/2020 at [facility] Mammary Right: Breast ALLERGAN- MEDICAL 04/25/2024 133S-MX-1 3-T / [id number] / Description:Requisition # [id number] Natrelle Inspira Softtouch Breast Implant 450cc Implanted:Qty: 1 on 04/06/2020 by Rodolfo Truong MD at [facility] Explanted:Qty: 1 on 08/16/2020 at [facility] Mammary Left: Breast ALLERGAN- MEDICAL [id number] 08/17/2024 SSF-450 / [id number] / Description:Both Allergan Br east Implants are processed on requisition [id number]. Natrelle Inspira Softtouch Breast Implant 525cc Implanted:Qty: 1 on 04/06/2020 by Rodolfo Truong MD at [facility] Explanted:Qty: 1 on 08/16/2020 at [facility] Mammary Right: Breast ALLERGAN- MEDICAL [id number] 12/29/2023 SSX-525 / [id number] / Description:Requisition # [id number]. Natrelle Inspira Soft Touch Ssf-560 Implanted:Qty: 1 on 08/16/2020 at [facility] Explanted:Qty: 1 on 02/22/2023 by Rodolfo Truong MD at [facility] Right: Breast ALLERGAN- MEDICAL [id number] 06/21/2024 SSF-560 / [id number] / Description:Requisition # [id number] left breast Imp Breast Inspira Ssx 700ml Ssx-700 - [id number] Explanted:Qty: 1 on 02/22/2023 at [facility] Mammary Right: Breast ALLERGAN- MEDICAL 01/04/2026 SSX-700 / [id number] / Natrelle Inspira Softtouch Ssx-615 Implanted:Qty: 1 on 08/16/2020 at [facility] Explanted:Qty: 1 on 02/22/2023 by Rodolfo Truong MD at [facility] Mammary Right: Breast ALLERGAN- MEDICAL [id number] 10/15/2024 SSX-615 / [id number] / Description:both Allergan re placement breast implants are processed on requisition [id number]. Imp Breast Inspira Ssf 650ml Ssf-650 - [id number] Implanted:Qty: 1 on 02/22/2023 by Rodolfo Truong MD at [facility] Explanted:Qty: 1 on 07/28/2024 by Rodolfo Truong MD at [facility] Mammary Left: Breast ALLERGAN- MEDICAL 09/11/2027 SSF-650 / [id number] / Imp Breast Inspira Ssx 615ml Ssx-615 - [id number] Implanted:Qty: 1 on 02/22/2023 by Rodolfo Truong MD at [facility] Explanted:Qty: 1 on 07/28/2024 by Rodolfo Truong MD at [facility] Mammary Right: Breast ALLERGAN- MEDICAL 10/15/2024 SSX-615 / [id number] / Description:Original implant placed on 08/16/2020 was explanted today but surgeon reimplanted after trying alteratives unsuccessfully. Procedures Procedure Name Priority Date/Time Associated Diagnosis Comments ENDOSCOPY, COLON, SCREENING Routine 01/01/2017 from Last 3 Months or Most Recently Relevant to Health Maintenance Results * ENDOSCOPY, COLON, SCREENING (01/01/2017) [facility] Brenda Delgado MD GI PROCEDURE ORDERABLES Edited Result - Final [facility] from Last 3 Months or Most Recently Relevant to Health Maintenance Insurance [employer] MEDICAID RX [place] [employer] (INTERNAL) [facility] RX [employer] Medicaid RX [facility] Commercial [place] [address] [facility] MEDICAID Advance Directives For more information, please contact: [phone] * Full Code (Latest Code Status on [...] 8:44 AM 10/23/2019 2:10 PM Care Teams Contract Negotiation Manager Relationship Specialty [place] [address] [place] [address] PCP - General Internal Medicine 11/05/18
--- OUTSIDE RECORDS SUMMARY | 2024-12-09 18:27 | XMS_ITS ---
Author Organization [facility] Address [address] 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 Treatments may have been administered in another system. Lifetime Dose Tracking * Chemical Lifetime Dose Automatic Entry Manual Entr y Dose Length Product 810 mGy-cm 810 mGy-cm 0 mGy-cm Resolved Problems Problem Noted Date Diagnosed Date Resolved Date Diarrhea 05/03/2023 05/03/2023 05/31/2023 UTI (urinary tract infection) 02/02/2016 04/08/2020
--- OUTSIDE RECORDS SUMMARY | 2024-12-09 18:27 | XMS_ITS | Clinical Summary ---
Author Organization [facility] Address [address] [place] [address] Care Team Providers Care Mill Hand Plate Mill Name Role Phone Unavailable Primary Care Provider Unavailabl e Allergies Active Allergy Reactions Criticality Noted Date Comments Tape Rash Low 09/12/2016 Medications anastrozole 1 MG tablet TAKE 1 TABLET(1 MG) BY MOUTH DAILY 7 Active cholecalciferol (D3-50) 02660 units capsule Take 100,000 Units by mouth [...] A MEAL 8 Active multi vitamin/mineral s (VITAMINS/SENIOR PRINCIPAL ALS) tablet Take 1 tablet by mouth. Active omeprazole 40 MG capsule TK ONE C PO QAM 8 Active trazodone 50 MG tablet Take 50 mg by mouth. Active venlafaxine 24 hr 75 MG 24 hr capsule TAKE 1 CAPSULE(75 MG) BY MOUTH DAILY 8 Active Active Problems Problem Noted Date [...] Comments Blood Pressure 146/90 08/01/2018 1:02 PM LEGAL SECRETARY Pulse 89 08/01/2018 1:02 PM LEGAL SECRETARY Temperature 36.6 C (97.9 F) 08/01/2018 1:02 PM LEGAL SECRETARY Respiratory Rate 20 08/01/2018 1:02 PM LEGAL SECRETARY Oxygen Saturation 100% 08/01/2018 1:02 PM LEGAL SECRETARY Inhaled Oxygen Concentration - - Weight 88 kg (194 lb) 08/01/2018 1:02 PM LEGAL SECRETARY Height 167.6 cm (5' 6 ) 08/01/2018 1:02 PM LEGAL SECRETARY Body Mass Index 31.31 08/01/2018 1:02 PM LEGAL SECRETARY Plan of Treatment Health Maintenance Due Date Last Done Comments Colorectal Cancer Screening Colonoscopy (10 Years) 1969 Annual Physical 1972 Hepatitis C 1987 Hepatitis B Vaccines (1 of 3 - 19+ 3-dose series) 1988 Mammogram Screening 2009 Zoster Vaccines (1 of 2) 2019 COVID-19 Vaccine ( - 2023-2 5 season) 2024 DTaP, Tdap and Td Vaccines ( 2 - Td or Tdap) 09/11/2027 09/11/2017 Meningococcal B Vaccine Aged Out No l onger eligible based on patient's age to complete this topic Meningococcal Vaccine Aged Out No leonel claudia eligible based on patient's age to complete this topic Pneumococcal Vaccine: Pediat rics (0 to 5 Years) and At-Risk Patients (6 to 64 Years) Aged Out No longer eligi ble based on patient's age to complete this topic RSV Immunizations Under 20 Months Aged Out No longer eligible based on patient's age to complete this topic [place] [address] [place] [id number]
--- OUTSIDE RECORDS SUMMARY | 2024-12-09 18:27 | XMS_ITS | Encounter Summary ---
Author Organization [facility] Address [address] [place] [address] Care Team Providers Care Supervisor Sewer Maintenance Name Role Phone Key Tolliver MD Primary Care Provider [phone] Reason for Visit * Reason Comments Medication Refill Encounter Details Date Type Department Care Team ([facility] Contact Info) Description 05/11/2020 [facility] [id number] [facility] [address] [place] [address] Rodolfo Truong MD [address] [facility] [address] [place] [address] Malignant neoplasm of upper-outer quadrant [...] on file Legal Sex Female 1:52 PM DIE MAINTENANCE Gender Identity Not on file Sexual Orientation [...] Description 04/14/2025 11:30 AM CDT Office Visit [facility] Oncology and Hematology - Teddy [address] [place] [address] Evan Willis MD [address] [facility] [address] [place] [address] 08/17/2025 1:00 PM DIE MAINTENANCE Office Visit [facility] Plastic Surgery at the [facility] [address] [place] [address] Rodolfo Truong MD [address] [facility] [address] [place], [place] [id number] documented as of this encounter Visit Diagnoses Diagnosis Malignant neoplasm of upper-outer quadrant of left breast in female, estrogen receptor positive (CMS/HCC) documented in this encounter Care Teams Supervisor Sewer Maintenance Relationship Specialty Start Date End Date Key Tolliver MD [address] [place] [address] PCP - General Internal Medicine 11/05/18 documented as of this encounter
--- OUTSIDE RECORDS SUMMARY | 2024-12-09 18:27 | XMS_ITS | Clinical Summary ---
Author Organization [facility] Address [address] [place] [address] Care Team Providers Care Sand Screener Name Role Phone Key Tolliver MD Primary Care Provider Pablo Liriano MD Unavailable [phone] Evan Willis MD Unavailable [phone] Charles Kingston MD Unavailable Source Comments [facility],non-owned Affiliates and Associated Physician Practices is amultiple site organization consisting of ambulatory clinics and hospital sitesin [place], [place], [place] and [place]. This disclosure is being madepursuant to the Care Everywhere program and may not contain all information available regarding this patient. Last updated 18.[facility] Allergies Active Allergy Reactions Criticality Noted [...] capsule Take by mouth once daily Active albuterol HFA (Proventil; Ventolin; Proair) 108 (90 Base) MCG/ACT inhaler Inhale 1 (one) puff by mouth every 4 hours 10/07/2024 Active Flovent HFA 44 MCG/ACT inhaler Inhale 2 (two) puffs by mouth 2 times daily 10/07/2024 Active mirtazapine (Remeron) 15 MG tablet Take 1 (one) tablet by mouth at bedtime Active Active Problems Problem Noted Date Diagnosed [...] 08/09/2023 Trigger finger of left hand 04/19/2021 08/3 09/2022 Family history of stroke 03/30/2021 Family history of hypertension 03/30/2021 Family history of hyperlipidemia 03/30/2021 Atherosclerotic heart diseas e of [place] coronary artery without angina pectoris 03/30/2021 Chest [...] Encounters Date Type Department Care Team Description 11/26/2024 11:33 AM CDT - 11/26/2024 11:59 PM CDT Hospital Encounter [facility] DIAGNOSTIC RAD [facility] [address] [place] [address] Yandel Petersen MD Discharge Disposition: Home or Self Care 11/26/2024 11:30 AM CDT Office Visit [facility] [address] [place] [phone] Yandel Petersen MD Neck pain (Primary Dx); Sternoclavicular joint pain, right 11/26/2024 Travel 10/31/2024 10:51 AM CONTROL TOWER RADIO OPERATOR - 10/31/2024 11:59 PM CONTROL TOWER RADIO OPERATOR Hospital Encounter [facility] DIAGNOSTIC RAD [facility] [address] [place] [address] Vivien Teixeira PA-C Discharge Disposition: Home or Self Care 10/31/2024 10:30 AM CONTROL TOWER RADIO OPERATOR Office Visit [facility] [address] [place] [phone] Vivien Teixeira PA-C Tendinopathy of right rotator cuff (Primary Dx); Chronic right shoulder pain; Pain of right clavicle; Neck pain; Adhesive capsulitis of right shoulder; S/P breast reconstruction, right 10/31/2024 Travel 10/30/2024 Orders Only [facility] [address] [place] [phone] Vivien Teixeira PA-C Right shoulder pain, unspecified chronicity 10/24/2024 Travel 10/19/2024 Refill [facility] [address] [facility] [place] [address] Jace Muller MD Refill Request 09/17/2024 11:19 AM CONTROL TOWER RADIO OPERATOR - 09/17/2024 11:59 PM CONTROL TOWER RADIO OPERATOR Hospital Encounter [facility] LAB OP DRAW STATION [address] [place] [phone] Discharge Disposition: Home or Self Care 09/17/2024 11:00 AM CONTROL TOWER RADIO OPERATOR Office Visit [facility]umat[facility] [address] [facility] [place] [address] Ev Lowery MD Positive double stranded 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 (Primary Dx); Primary osteoarthritis of both hands; Positive JENNIFER (antinuclear antibody); Polyarthralgia 09/17/2024 Travel 09/16/2024 Travel from Last 3 Months Immunizations Name Administration [...] Comments Blood Pressure 135/91 09/17/2024 11:02 AM CONTROL TOWER RADIO OPERATOR Pulse 82 09/17/2024 10:56 AM CONTROL TOWER RADIO OPERATOR Temperature 36.3 C (97.3 F) 09/17/2024 10:56 AM CONTROL TOWER RADIO OPERATOR Respiratory Rate 14 01/17/2024 11:17 AM CDT Oxygen Saturation 95% 03/18/2024 3:10 PM CDT Inhaled Oxygen Concentration 21% 03/21/2019 3 :09 AM CDT Weight 105.7 kg (233 lb) 09/17/2024 10:56 AM CONTROL TOWER RADIO OPERATOR Height 165.1 cm (5' 5 ) 09/17/2024 10:56 AM CONTROL TOWER RADIO OPERATOR Body Mass Index 38.77 09/17/2024 10:56 AM CONTROL TOWER RADIO OPERATOR Plan of Treatment Upcoming Encounters Date Type Department Care Team (Late st Contact Info) Description 12/15/2024 1:20 PM CDT Appointment [facility] CAT SCAN [address] [place] [phone] Yandel Petersen MD [address] [place] [address] 12/15/2024 1:40 PM CDT Appointment [facility] CAT SCAN [facility] [place] [address] Yandel Petersen MD [address] [place] [address] 12/17/2024 11:15 AM CDT Office Visit [facility] [address] [place] [address], [place] [address] Yandel Petersen MD [address] [place] [address] 12/25/2024 3:00 PM CDT Office Visit [facility] - Orthopedic Surgery [address] [place] [address] Mariano Guzmán MD [address] [place] [address] 03/11/2025 11:20 AM CDT Office Visit [facility] - Rheumatology [address] [place] [address], [place] [phone] Ev Lowery MD [address] [place] [address] [place] [address] Health Maintenance Due Date Last Done Comments COLOGUARD (AGES 45-75) - COLON CA SCREENING [address] COLONOGRAPHY - COLON CA SCREENING 1969 FIT - COLON CA SCREENING 1969 FLEX SIG - COLON CA SCREENING 1969 PAP SMEAR 1969 HEPATITIS B VACCINE (1 of 3 - 19+ 3-dose series) 1988 PNEUMOCOCCAL VACCINE 50+ (1 of 2 - PCV) 1988 MAMMOGRAM 05/12/2015 05/12/2013, 05/07/2013 ZOSTER VACCINE (1 of 2) 2019 COVID-19 VACCINE (1 - season) 2024 DEPRESSION SCREENING 09/03/2024 07/18/2022, 07/06/2022, 06/27/2022, Additional history exists INFLUENZA VACCINE (Season Ended) 2025 06/17/2020, 07/04/2019, 05/15/2018, Additional history exists COLONOSCOPY - COLON CA [...] complete this topic MENINGOCOCCAL (Group B) VACCINE SHARED DECISION-MAKING Aged Out No longer eligible based on patient's age to complete this topic MENINGOCOCCAL GROUPS A/C/Y/W VACCINE Aged Out No longer eligible based on patient's age to complete this topic Goals Goal Patient Goal Type Associated Problems Recent Progress Patient-Stated? Author Mobility General Improving( 1:50 PM CDT) No Coreen Muñoz, DARRON Note: Expected end date: 12/01/2020 The goal is to maintain or improve your mobility at the optimum level for you. Interventions: Mobility General Worsening( 1:20 PM CONTROL TOWER RADIO OPERATOR) No Lilo Kaminski, DARRON Note: Expected end date: 11/17/2019 The goal is to maintain or improve your mobility at the optimum level for you. Interventions: PAIN General No Shira Sun Note: Expected end date: 01/18/2020 Patient's pain/discomfort is manageable. Interventions: Medical Devices Implanted Type Area Ammonia Technician Device Identifier Shelf Expiration Date Model / Serial / Lot Cmnt Bone Plc R+Ggnta 40gm Lf Grn Implanted:Qty: 1 on 10/11/2017 by [facility] Left: Knee [employer] 12/01/2020 [id number] / / [id number] Description:12 BEADS IN LEFT KNEE ON VICRYL SUTURE 21 BEADS IN RIGHT KNEE ON VICRYL SUTURE Brng [id number] Vngrd Arcm Kn Ant Stab Implanted:Qty: 1 on 10/16/2017 by Raj[facility] Left: Knee [employer] 06/09/2022 [id number] / / Brng [id number] Vngrd Arcm Kn Ant Stab Implanted:Qty: 1 on 10/16/2017 by Rajendra [facility]gram [facility] Right: Knee [employer] 07/25/2022 [id number] / / Cmpnt Tibtry Bmt As Mx Kn Intlk Prm Lck Implanted:Qty: 1 on 10/16/2017 by Rajendra Ingram [facility] Left: Knee [employer] 07/11/2027 [id number] / / Cmpnt Tibtry Bmt As Mx Kn Intlk Prm Lck Implanted:Qty: 1 on 10/16/2017 by Rajendra Ingram [facility] Right: Knee [employer] 06/17/2027 [id number] / / Kam Kn Tot Rev 50% Of 2014 Implanted:Qty: 1 on 10/16/2017 by Rajendra Ingram [facility] Wan [employer] KR2 KNEE TO T REV WAN BILL ONLY / / Cmpnt Glnd 38mm Std Glenosphere Sckt Geovany Implanted:Qty: 1 on 03/19/2019 by Pablo [facility] Left: Shoulder [employer] Inc 11/01/2023 [id number] / / Description:DXTND GLENOSPHER E STD [id number]--30/22 LG Dxtend Mod Cent Epi 1 Ocampo Implanted:Qty: 1 on 03/19/2019 by Pablo [facility] Left: Shoulder 01/01/2024 1307-20-101 / / Description:delta xtend mudu lar centered epiphysis Global Unite Std Stem Sz 8 Implanted:Qty: 1 on 03/19/2019 by Pablo L[facility]iano MD at [facility] Left: Shoulder 08/02/2027 1100-08-100 / / Description:global unite por ocoat standard stem Dxtend Stand Pe Cup D38 +3mm Implanted:Qty: 1 on 03/19/2019 by Pablo [facility]iano [facility] at [facility] Left: Shoulder 1307-38-203 / / [id number] Description:Delta xtend lyudmila ral PE cup standard Sys Shld Tot Arthroplst Rev Implanted:Qty: 1 on 03/19/2019 by Pablo Liriano MD at [facility] Left: Shoulder [employer] S4 DEPUY / / Cmpnt Glnd 27mm Std Geovany Xtend Metaglene Implanted:Qty: 1 on 03/19/2019 by Pablo L[facility]iano MD at [facility] Left: Shoulder [employer] 12/02/2023 1307-60-000 / / Description:DXTEND METAGLENE Dxtend Screw Lock D4.5x36mm Implanted:Qty: 1 on 03/19/2019 by Pablo [facility]iano [facility] at [facility] Left: Shoulder 12/02/2023 1307-90-036 / / Description:PACK ACL TISSUE FX CSTM SRG PRC DISP Screw 4.5mm 30mm Shldr Glnd Lck Geovany Implanted:Qty: 1 on 03/19/2019 by Pablo [facility] at [facility] Left: Shoulder [employer] 01/01/2024 1307-90-030 / / Description:DXTEND SCREW LOC K D4.1I91OD--06/22 LG 6.5mm Canellous Screw Implanted:Qty: 1 on 10/25/2020 by Anjelica Gutierres [facility] at [facility] Right: Ankle [employer] 486-55-01 / 6.5mm Cancellous Screw Implanted:Qty: 1 on 10/25/2020 by Anjelica Gutierres [facility] at [facility] Right: Ankle [employer] / / Cortical Screw 2.7mm Implanted:Qty: 1 on 10/25/2020 by Anjelica Gutierres MD at [facility] Right: Ankle [employer] [id number] / / Screw 3.5mm 32mm 2.5mm Slf-Tap Sm Hex Implanted:Qty: 2 on 10/25/2020 by Anjelica Gutierres MD at [facility] Right: Ankle [employer] [id number] / / Screw 3.5mm 45mm 2.5mm Slf-Tap Sm Hex Implanted:Qty: 1 on 10/25/2020 by Ajnelica Gutierres MD at [facility] Right: Ankle [employer] [id number] / / Graft Bone Alfs + Dbm 1cc Algrf Pst Implanted:Qty: 1 on 10/25/2020 by Anjelica Gutierres MD at [facility] Right: Ankle Allosource 04/08/2021 [id number] / / [id number] Bsplt Glnd 30mm Rsp Shldr P2 Strl Lf Implanted:Qty: 1 on 04/26/2022 by Mariano Guzmán MD at [facility] Left: Shoulder [employer] 03/23/2028 508-32-204 / / [id number] Screw 5mm 14mm Shldr Lck Rsp Glnd Bsplt Implanted:Qty: 1 on 04/26/2022 by Mariano Guzmán MD at [facility] Left: Shoulder [employer] 03/25/2028 506-03-114 / / [id number] Screw 5mm 14mm Shldr Lck Rsp Glnd Bsplt Implanted:Qty: 1 on 04/26/2022 by Mariano Guzmán MD at [facility] Left: Shoulder [employer] 04/05/2028 506-03-114 / / [id number] Screw 5mm 30mm Shldr Lck Rsp Glnd Bsplt Implanted:Qty: 1 on 04/26/2022 by Mariano Guzmán MD at [facility] Left: Shoulder [employer] 03/13/2028 506-03-130 / / [id number] Screw 5mm 30mm Shldr Lck Rsp Glnd Bsplt Implanted:Qty: 1 on 04/26/2022 by Mariano Guzmán MD at [facility] Left: Shoulder [employer] 03/18/2028 506-03-130 / / [id number] Cmnt Bone Djo Srg Cblt 40gm Hvisc Strl Implanted:Qty: 1 on 04/26/2022 by Mariano Guzmán MD at [facility] Left: Shoulder [employer] 03/16/2023 600-15-000 / / [id number] Head Glnd 32mm Rsp Ntrl Shldr Rtn Screw Implanted:Qty: 1 on 04/26/2022 by Mariano Guzmán MD at [facility] Left: Shoulder [employer] 03/22/2028 508-32-101 / / [id number] Ins Sckt Rsp Djo Srg +4mm Hum Hxe+ Implanted:Qty: 1 on 04/26/2022 by Mariano Guzmán MD at [facility] Left: Shoulder [employer] 12/26/2026 509-01-432 / / [id number] Humeral Stem Reverse Size 8mm X 108mm Implanted:Qty: 1 on 04/26/2022 by Mariano Guzmán MD at [facility] Left: Shoulder [employer] 10/05/2027 530-08-108 / / [id number] Rstrc Cmnt Cl Ct 10mm Implanted:Qty: 1 on 04/26/2022 by Mariano Guzmán MD at [facility] Left: Shoulder [employer] 07/03/2024 415-00-100 / / [id number] Rsp Humeral Socket Insert 32mm Semi-Constrain ed Implanted:Qty: 1 on 06/14/2022 by Mariano Guzmán MD at [facility] Left: Shoulder [employer] 08/12/2026 509-01-032 / / [id number] Spcr Hum Djo Srg Rsp +8mm Mnblck Strl Lf Implanted:Qty: 1 on 06/14/2022 by Mariano Guzmán MD at [facility] Left: Shoulder [employer] 04/12/2028 510-08-000 / / [id number] Head Glnd 32mm Rsp Ntrl Shldr Rtn Screw Implanted:Qty: 1 on 06/14/2022 by Mariano Guzmán MD at [facility] Left: Shoulder [employer] 05/17/2028 508-32-101 / / [id number] Screws Implanted:Qty: 1 on 08/10/2023 by Jace Muller MD at [facility] Left: Ankle AR-8935-32 / / Description:3.0-4.0 ARTHREX VENDOR TRAY Screw Implanted:Qty: 1 on 08/10/2023 by Jace Muller MD at [facility] Left: Ankle Arthrex Inc AR-8940-34 / / Description:3.0-4.0 ARTHREX TRAY Kit Bngf 3cc Aug Inj Implanted:Qty: 1 on 01/14/2024 by Jace Muller MD at [facility] Left: Ankle Consert Inc 08/30/2026 [id number] / / [id number] Graft Bone Ignite 2 Mini 4cc Pwr Mx - [id number] Implanted:Qty: 1 on 01/14/2024 by Jace Muller MD at [facility] Left: Ankle Consert Inc 07/19/2028 [id number] / [id number] / Allosync Pure 5cc Implanted:Qty: 1 on 01/14/2024 by Jace Muller MD at [facility] Left: Ankle Arthrex Inc 08/20/2028 ABS-2010-01 / / [id number] 7.0 Screw 55 Implanted:Qty: 1 on 01/14/2024 by Jace Muller MD at [facility] Left: Ankle Arthrex Inc AR-8770-5H / / 7.0 Screw 40 Implanted:Qty: 1 on 01/14/2024 by Jace Muller MD at [facility] Left: Ankle Ar[employer]rex Inc AR-8770-40H / / Explanted Type Area Ammonia Technician Device Identifier Shelf Expiration Date Model / Serial / Lot Cortical Screw 3.5mm Explanted:Qty: 1 on 10/25/2020 at [facility] Right: Ankle Wan [employer] 00-4835-036 -01 / / 4.0mm Screw Explanted:Qty: 1 on 08/10/2023 at [facility] Left: Ankle AR-8940-32 / / Screw 3mm 20mm T10 Ft Slf-Tap Lck Strdr Explanted:Qty: 1 on 08/10/2023 by Felipe Bourne MD at [facility] Left: Ankle Arth[employer] Inc AR-8933L-20 / / Screw 3mm 18mm Va Slf-Tap Sld Lck Ankl Explanted:Qty: 1 on 08/10/2023 by Felipe Bourne MD at [facility] Left: Ankle Arth[employer] Inc AR-8933V-18 / / Wire K .062in 6in Fx 2 Troc Explanted:Qty: 2 on 08/10/2023 at [facility] Left: Ankle [employer] [id number] / / Screw 3.5mm 28mm T15 Ft Slf-Tap Sld Hxlb Implanted:Qty: 1 on 08/10/2023 by Jace Muller MD at [facility] Explanted:Qty: 1 on 01/14/2024 by Jace Muller MD at [facility] Left: Ankle Ar[employer] Inc AR-8935CL-2 8 / / Screw 3.5mm 26mm T15 Ft Slf-Tap Sld Hxlb Implanted:Qty: 1 on 08/10/2023 by Jace Muller MD at [facility] Explanted:Qty: 1 on 01/14/2024 by Jace Muller MD at [facility] Left: Ankle Ar[employer] Inc AR-8935CL-2 6 / / Plate Calc 7.5mm Stp Bone Implanted:Qty: 1 on 08/10/2023 by Jace Muller MD at [facility] Explanted:Qty: 1 on 01/14/2024 by Jace Muller MD at [facility] Left: Ankle Ar[employer] Inc AR-8949-075 / / 3.5mm Locking Screw Implanted:Qty: 1 on 08/10/2023 by Jace Muller MD at [facility] Explanted:Qty: 1 on 01/14/2024 by Jace Muller MD at [facility] Left: Ankle AR-8935CL-2 4 / / Description:3.0-4.0 ARTHREX VENDOR TRAY Screw 3mm 16mm Va Slf-Tap Sld Lck Ankl Implanted:Qty: 1 on 08/10/2023 by Felipe Bourne MD at [facility] Explanted:Qty: 1 on 01/14/2024 by Jace Muller MD at [facility] Left: Ankle Ar[employer] Inc AR-8933V-16 / / Screw 3mm 20mm Va Slf-Tap Sld Lck Ankl Implanted:Qty: 1 on 08/10/2023 by Felipe Bourne MD at [facility] Explanted:Qty: 1 on 01/14/2024 by Jace Muller MD at [facility] Left: Ankle Ar[employer]rex Inc AR-8933V-20 / / Procedures Procedure Name Priority Date/Time Associated Diagnosis Comments XR CERVICAL SPINE 2 OR 3VW Routine 11/26/2024 11:41 AM CDT Neck pain AR DRAIN/INJECT LARGE JOINT/BURSA Routine 10/31/2024 4:16 PM CONTROL TOWER RADIO OPERATOR Tendinopathy of right rotator cuff XR SHOULDER RIGHT 2VW OR MORE Routine 10/31/2024 10:58 AM CONTROL TOWER RADIO OPERATOR Right shoulder pain, unspecified chronicity URINALYSIS W/MICROSCOPIC REFLEX TO CULTURE Routine 09/17/2024 12:11 PM CONTROL TOWER RADIO OPERATOR Positive double stranded 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 PROTEIN CREATININE RATIO URINE RANDOM PNL Routine 09/17/2024 12:11 PM CONTROL TOWER RADIO OPERATOR Positive double stranded 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 CULTURE URINE Routine 09/17/2024 12:11 PM CONTROL TOWER RADIO OPERATOR Positive double stranded 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 DNA ANTIBODY DS CRITHIDIA TITER Routine 09/17/2024 12:09 PM CONTROL TOWER RADIO OPERATOR Positive double stranded 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 COMPREHENSIVE METABOLIC PANEL Routine 09/17/2024 12:09 PM CONTROL TOWER RADIO OPERATOR Positive double stranded 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 CBC W AUTO DIFFERENTIAL Routine 09/17/2024 12:09 PM CONTROL TOWER RADIO OPERATOR Positive double stranded 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 DNA ANTIBODY DOUBLE STRANDED Routine 09/17/2024 12:09 PM CONTROL TOWER RADIO OPERATOR Positive double stranded 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 ANTIBODY + HIV P24 AG PANEL AM Draw 10/12/2017 4:43 AM CONTROL TOWER RADIO OPERATOR HEPATITIS C ANTIBODY Routine 12/27/2015 5:08 PM CDT from Last 3 Months or Most Recently Relevant to Health Maintenance Results * XR Cervical Spine 2 or 3Vw (11/26/2024 11:41 AM CDT) Anatomical Region Laterality Modality Spine Computed Radiogr aphy 11/26/2024 11:4 0 AM CDT Impressions 11/26/2024 12:35 PM CDT IMPRESSION: 1.Mild to moderate degenerative changes. 2.Cervical disc arthroplasty at C5-6. Report dictated by Helen Dorman MD (radiology physician assistant). Sampson Brower MD have personally reviewed and interpreted this examination/study. > Interpreting Provider: Sampson Pérez MD on 11/26/2024 12:35 PM Narrative 11/26/2024 12:35 PM CDT PROCEDURE: XR CERVICAL SPINE 2 OR 3VW, DATE/TIME OF EXAM: 11/26/2024 11:41 AM, LOCATION [facility] INDICATION: M54.2: Neck pain ADDITIONAL CLINICAL INFORMATION: Ordering Provider Reason For Exam: HX OF SPINAL FUSION Technologist Note: Additional: COMPARISON: Cervical spine x-ray 12/26/2021 FINDINGS: Patient is status post C5-6 cervical intervertebral disc arthroplasty. The alignment is unchanged. No radiographic evidence of acute fracture or subluxation. Mild to moderate degenerative changes. Procedure Note Sampson Pérez MD - 11/26/2024 PROCEDURE: XR CERVICAL SPINE 2 OR 3VW, DATE/TIME OF EXAM: 1:41 AM, LOCATION [facility] INDICATION: M54.2: Neck pain ADDITIONAL CLINICAL INFORMATION: Ordering Provider Reason For Exam: HX OF SPINAL FUSION Technologist Note: Additional: COMPARISON: Cervical spine x-ray 12/26/2021 FINDINGS: Patient is status post C5-6 cervical intervertebral disc arthroplasty.The alignment is unchanged. No radiographic evidence of acute fracture or subluxation. Mild to moderate degenerative changes. IMPRESSION: 1.Mild to moderate degenerative changes. 2.Cervical disc arthroplasty at C5-6. Report dictated by Helen Dorman MD (radiology physician assistant). Sampson Brower MD have personally reviewed and interpreted this examination/study. > Interpreting Provider: Sampson Pérez MD on 11/26/2024 12:35 PM Yandel Petersen MD DIAGNOSTIC GWYN GING ORDERABLES * AR DRAIN/INJECT LARGE JOINT/BURSA (10/31/2024 4:16 PM CONTROL TOWER RADIO OPERATOR) Narrative Vivien Teixeira PA-C - 10/31/2024 4:16 PM CONTROL TOWER RADIO OPERATOR Vivien Teixeira PA-C 10/31/2024 4:17 PM Injection shoulder The patient was offered a cortisone injection into the right shoulder. After discussing the risks and benefits of the procedure, the patient elected to proceed. After sterile preparation, the affected shoulder was injected subacromial with a combination in One syringe: 4mL ropivacaine + 2ml Kenalog (40mg/mL). The patient tolerated the procedure well without complication. There was zero blood loss. Vivien Teixeira PA-C PROCEDURE/MINOR SURG ICAL ORDERABLES * XR Shoulder Right 2Vw or More (10/31/2024 10:58 AM CONTROL TOWER RADIO OPERATOR) Anatomical Region Laterality Modality Upper Extremity Computed Radiogr aphy 10/31/2024 10:5 8 AM CONTROL TOWER RADIO OPERATOR Impressions 10/31/2024 11:01 AM CONTROL TOWER RADIO OPERATOR IMPRESSION: No acute osseous abnormality. > Interpreting Provider: Sampson Pérez MD on 10/31/2024 11:01 AM Narrative 10/31/2024 11:01 AM CONTROL TOWER RADIO OPERATOR PROCEDURE: XR SHOULDER RIGHT 2VW OR MORE DATE/TIME OF EXAM: 10/31/2024 10:58 AM CLINICAL INFORMATION: None relevant/not provided if blank. Indication: M25.511: Right shoulder pain, unspecified chronicity Additional History: COMPARISON: None. FINDINGS: No fracture or dislocation is present. The glenohumeral joint space is normal. There is an inferior glenoid osteophyte. There is lucency and sclerosis at the greater tuberosity of the humerus which may be degenerative or post procedural associated with rotator cuff repair. The acromioclavicular joint is mildly widened and there is contour tapering of the distal clavicle which is probably postsurgical associated with distal clavicle excision. Procedure Note Sampson Pérez MD - 10/31/2024 PROCEDURE: XR SHOULDER RIGHT 2VW OR MORE DATE/TIME OF EXAM: 10/31/2024 10:58 AM CLINICAL INFORMATION: None relevant/not provided if blank. Indication: M25.511: Right shoulder pain, unspecified chronicity Additional History: COMPARISON: None. FINDINGS: No fracture or dislocation is present. The glenohumeral joint space is normal. There is an inferior glenoid osteophyte. There is lucency and sclerosis at the greater tuberosity of the humerus which may be degenerative or post procedural associated with rotator cuff repair. The acromioclavicular joint is mildly widened and there is contour taperingof the distal clavicle which is probably postsurgical associated withdistal clavicle excision. IMPRESSION: No acute osseous abnormality. > Interpreting Provider: Sampson Pérez MD on 10/31/2024 11:01 AM Vivien Teixeira PA-Billy DIAGNOSTIC IMAGING O RDERABLES * (ABNORMAL) URINALYSIS W/MICROSCOPIC REFLEX TO CULTURE (09/17/2024 12:11 PM CONTROL TOWER RADIO OPERATOR) Color UA Delilah(A) Straw, Yellow 09/17/2024 12:45 PM [facility] Clarity UA Slt Cloudy(A) Clear 09/17/2024 12:45 PM [facility] Specific Armour UA 1.032(H) 1.005 - 1.030 09/17/2024 12:45 PM [facility] pH UA 5.0 5.0 - 8.0 pH 09/17/2024 12:45 PM [facility] Protein UA Negative Negative 09/17/2024 12:45 PM [facility] Glucose UA Negative Negative 09/17/2024 12:45 PM [facility] Ketone UA Negative Negative 09/17/2024 12:45 PM [facility] Bilirubin UA Negative Negative 09/17/2024 12:45 PM [facility] Blood UA Negative Negative 09/17/2024 12:45 PM [facility] Nitrite UA Negative Negative 09/17/2024 12:45 PM [facility] Leukocyte Esterase 1+(A) Negative 09/17/2024 12:45 PM [facility] [facility] Urobilinogen UA Negative Negative mg/dL 09/17/2024 12:45 PM [facility] RBC UA 3-5 None Seen, 0-2, 3-5 /HPF 09/17/2024 12:45 PM [facility] WBC UA 11-20(A) None Seen, 0-5 /HPF 09/17/2024 12:45 PM [facility] Bacteria UA Trace(A) None /HPF 09/17/2024 12:45 PM [facility] Squamous Epithelial Cells UA >20(A) None Seen, 0-2, 3-5 /HPF 09/17/2024 12:45 PM CONTROL TOWER RADIO OPERATOR [facility] Mucus UA 4+ /LPF 09/17/2024 12:45 PM CONTROL TOWER RADIO OPERATOR [facility] Hyaline Casts UA 6-10(A) None Seen, 0-2 /LPF 09/17/2024 12:45 PM CONTROL TOWER RADIO OPERATOR [facility] Urine URINE SPECIMEN OBTAINED BY CLEAN CATCH PROCEDURE / Unknown Collection / Unknown 09/17/2024 12:11 PM CONTROL TOWER RADIO OPERATOR 09/17/2024 12:24 PM CONTROL TOWER RADIO OPERATOR Narrative [facility] - 09/17/2024 12:45 PM CONTROL TOWER RADIO OPERATOR Lab Status, Culture Reflex Indicated. Ev Lowery MD LAB - URINALYSIS ORD ERABLES Performing Organization Address City/[facility]/ZIP Co de Phone Number [facility] [address] [place] [address], [facility] [phone] * (ABNORMAL) CULTURE URINE (09/17/2024 12:11 PM CONTROL TOWER RADIO OPERATOR) Culture Urine 50,000-100,000 CFU/mL Streptococcus agalactiae (Group B)(A) 09/19/2024 2:45 AM CONTROL TOWER RADIO OPERATOR [facility] Culture Urine <10,000 CFU/mL urogenital isabell 09/19/2024 2:45 AM CONTROL TOWER RADIO OPERATOR [facility] Urine URINE SPECIMEN OBTAINED BY CLEAN CATCH PROCEDURE / Unknown Collection / Unknown 09/17/2024 12:11 PM CONTROL TOWER RADIO OPERATOR 09/17/2024 12:45 PM CONTROL TOWER RADIO OPERATOR Narrative [facility] - 09/19/2024 2:45 AM CONTROL TOWER RADIO OPERATOR Susceptibility testing of penicillin, other beta-lactam antibiotics, and vancomycin is not necessary for beta-hemolytic streptococci groups A,B,C and G because resistant strains have not been recognized. Ev Lowery MD LAB - MICROBIOLOGY O RDERABLES [facility] [address] [place] [address], [facility] [phone] * PROTEIN CREATININE RATIO URINE RANDOM PNL (09/17/2024 12:11 PM CONTROL TOWER RADIO OPERATOR) Protein Urine 28 Not Established mg/dL 09/17/2024 1:06 PM CONTROL TOWER RADIO OPERATOR [facility] Creatinine Urine 373.79 Not Established mg/dL 09/17/2024 1:06 PM CONTROL TOWER RADIO OPERATOR [facility] Protein/Creati nine Ratio Urine 0.07 <0.10 09/17/2024 1:06 PM CONTROL TOWER RADIO OPERATOR [facility] Urine URINE SPECIMEN OBTAINED BY CLEAN CATCH PROCEDURE / Unknown Collection / Unknown 09/17/2024 12:11 PM CONTROL TOWER RADIO OPERATOR 09/17/2024 12:24 PM CONTROL TOWER RADIO OPERATOR Ev Lowery MD LAB - URINE CHEMISTR Y ORDERABLES [address] [address], [facility] [phone] * DNA ANTIBODY DS CRITHIDIA TITER (09/17/2024 12:09 PM CONTROL TOWER RADIO OPERATOR) dsDNA Antibody IgG <1:10 <1:10 2024 6:12 AM CONTROL TOWER RADIO OPERATOR [employer] [facility] ([facility]) Comment: INTERPRETIVE INFORMATION: Double-Stranded DNA (dsDNA) [...] recommendations for testing may be found at [email or web address].[email or web address]/[email or web address]. Performed By: [employer] [address] [place] [id number] Supervisor Whipped Topping: Bogdan Garcia MD, PhD CLIA Number: [id number] Blood BLOOD SPECIMEN / Unknown Lab Venipuncture / Unknown 09/17/2024 12:09 PM CONTROL TOWER RADIO OPERATOR 09/17/2024 12:24 PM CONTROL TOWER RADIO OPERATOR Ev Lowery MD LAB - SEROLOGY ORDER SUSANNE [employer] [facility]) [address] [place] [address], [facility] * DNA ANTIBODY DOUBLE STRANDED (09/17/2024 12:09 PM CONTROL TOWER RADIO OPERATOR) [facility] dsDNA Antibody 4 0 - 24 IU 09/19/2024 8:29 PM CONTROL TOWER RADIO OPERATOR [employer] ([facility]) Comment: INTERPRETIVE INFORMATION: Double-Stranded DNA (dsDNA) Ab IgG JOAQUÍN 24 IU or less........Negative 25-30 IU.............Borderline Positive 30-60 IU.............Low Positive 60-200 IU............Positive 201 IU or greater....Strong Positive Positivity for anti-double stranded DNA (anti-dsDNA) IgG antibody is a diagnostic criterion of systemic lupus erythematosus (SLE). Specimens are initially screened by enzyme-linked immunosorbent assay (JOAQUÍN). If ordered as reflex ([id number]), positive JOAQUÍN results (>24 IU) will be [...] recommendations for testing may be found at https://[email or web address].[email or web address]/content/[email or web address]. Performed By: [employer] [address] [place] [address] Supervisor Whipped Topping: Bogdan Garcia MD, PhD CLIA Number: [id number] Blood BLOOD SPECIMEN / Unknown Lab Venipuncture / Unknown 09/17/2024 12:09 PM CONTROL TOWER RADIO OPERATOR 09/17/2024 12:24 PM CONTROL TOWER RADIO OPERATOR Ev Lowery MD LAB - HEMATOLOGY ORD ERABLES [facility] ([facility]) [address] [place], [place] [id number], [facility] * (ABNORMAL) CBC WITH DIFFERENTIAL (09/17/2024 12:09 PM [facility]) WBC 4.9 4.0 - 10.7 x10E9/L 09/17/2024 12:35 PM [facility] RBC Count 4.85 3.90 - 5.20 x10E12/L 09/17/2024 12:35 PM [facility] Hemoglobin 13.2 11.9 - 15.8 g/dL 09/17/2024 12:35 PM [facility] Hematocrit 40.4 34.8 - 46.1 % 09/17/2024 12:35 PM [facility] MCV 83.3 80.0 - 98.0 fL 09/17/2024 12:35 PM [facility] MCH 27.2 26.7 - 33.6 pg 09/17/2024 12:35 PM [facility] MCHC 32.7 31.7 - 36.3 g/dL 09/17/2024 12:35 PM [facility] RDW-CV 15.5(H) 11.3 - 14.8 % 09/17/2024 12:35 PM [facility] Platelet Count 291 150 - 420 x10E9/L 09/17/2024 12:35 PM [facility] MPV 8.6 7.8 - 11.4 fL 09/17/2024 12:35 PM [facility] Neutrophil % 54.0 41.0 - 74.0 % 09/17/2024 12:35 PM [facility] Lymphocyte % 35.9 17.0 - 47.0 % 09/17/2024 12:35 PM [facility] Monocyte % 6.5 3.0 - 11.0 % 09/17/2024 12:35 PM [facility] Eosinophil % 2.8 0.0 - 7.0 % 09/17/2024 12:35 PM [facility] Basophil % 0.4 0.0 - 1.6 % 09/17/2024 12:35 PM [facility] Immature Granulocytes % 0.4 0.0 - 1.0 % 09/17/2024 12:35 PM [facility] Neutrophil Absolute 2.66 1.60 - 7.50 x10E9/L 09/17/2024 12:35 PM [facility] Lymphocyte Absolute 1.77 1.00 - 4.40 x10E9/L 09/17/2024 12:35 PM [facility] Monocyte Absolute 0.32 0.15 - 1.00 x10E9/L 09/17/2024 12:35 PM [facility] Eosinophil Absolute 0.14 0.00 - 0.60 x10E9/L 09/17/2024 12:35 PM [facility] Basophil Absolute 0.02 0.00 - 0.13 x10E9/L 09/17/2024 12:35 PM [facility] Blood BLOOD SPECIMEN / Unknown Lab Venipuncture / Unknown 09/17/2024 12:09 PM CONTROL TOWER RADIO OPERATOR 09/17/2024 12:29 PM [facility] Ev Lowery MD LAB - HEMATOLOGY ORD ERABLES [facility] [address] [place] [address], [facility] [phone] * (ABNORMAL) COMPREHENSIVE METABOLIC PANEL (09/17/2024 12:09 PM CONTROL TOWER RADIO OPERATOR) BUN 17 7 - 26 mg/dL 09/17/2024 1:09 PM [facility] Creatinine 1.03(H) 0.56 - 0.96 mg/dL 09/17/2024 1:09 PM [facility] Sodium 139 136 - 145 mmol/L 09/17/2024 1:09 PM [facility] Potassium 3.9 3.5 - 4.5 mmol/L 09/17/2024 1:09 PM [facility] Chloride 103 98 - 107 mmol/L 09/17/2024 1:09 PM [facility] CO2 24 22 - 29 mmol/L 09/17/2024 1:09 PM [facility] Glucose 98 70 - 99 mg/dL 09/17/2024 1:09 PM [facility] Calcium 9.4 8.4 - 10.2 mg/dL 09/17/2024 1:09 PM [facility] Protein Total 8.2 6.0 - 8.3 g/dL 09/17/2024 1:09 PM [facility] Albumin 4.1 3.4 - 5.0 g/dL 09/17/2024 1:09 PM [facility] Bilirubin Total 0.4 0.2 - 1.2 mg/dL 09/17/2024 1:09 PM [facility] Alkaline Phosphatase 82 40 - 150 U/L 09/17/2024 1:09 PM [facility] ALT 30 5 - 55 U/L 09/17/2024 1:09 PM [facility] AST 32 5 - 34 U/L 09/17/2024 1:09 PM [facility] Anion Gap 12 6 - 16 09/17/2024 1:09 PM [facility] BUN/Creatinine Ratio 17 7 - 23 09/17/2024 1:09 PM [facility] Osmolality Calculated 290 275 - 295 mOsm/kg 09/17/2024 1:09 PM [facility] Albumin/Globulin Ratio 1.0(L) 1.1 - 2.3 09/17/2024 1:09 PM [facility] eGFR by CKD-EPI 64(L) >=90 mL/min/1.7 3 m2 09/17/2024 1:09 PM [facility] Blood BLOOD SPECIMEN / Unknown Lab Venipuncture / Unknown 09/17/2024 12:09 PM CONTROL TOWER RADIO OPERATOR 09/17/2024 12:29 PM [facility] Ev Lowery MD LAB - CHEMISTRY [facility] Organization Address City/State/ZIP Co de Phone Number [facility] [address] [place] [phone], [facility] [phone] * HIV-1 HIV-2 ANTIBODY + HIV P24 AG PANEL (10/12/2017 4:43 AM CONTROL TOWER RADIO OPERATOR) HIV1/2 Ab + P24 Ag Non Reactive Non Reactive 10/12/2017 11:04 AM CONTROL TOWER RADIO OPERATOR [facility] Blood BLOOD SPECIMEN / Unknown Venipuncture / Unknown 10/12/2017 4:43 AM CONTROL TOWER RADIO OPERATOR 10/12/2017 4:57 AM CONTROL TOWER RADIO OPERATOR Narrative [facility] - 10/12/2017 11:04 AM CONTROL TOWER RADIO OPERATOR No Laboratory evidence of HIV infection. Singh Moyer MD LAB - CHEMISTRY ORDERABLES [facility] [address] [place] [address] * HEPATITIS C ANTIBODY (12/27/2015 5:08 PM CDT) [facility] Hepatitis C Antibody Non-react [facility] Comment: Hepatitis C Antibody screen indicates no [...] Avalos MD LAB - CHEMISTRY [facility] [address] [phone] from Last 3 Months or Most Recently [...] 8:14 PM 04/27/2022 6:26 PM Care Teams Sand Screener Relationship Specialty Start Date End Date Key Tolliver MD [address] [place] [address] [phone] PCP - General 10/22/18 Pablo Liriano MD [address] [place] [address] [phone] Orthopedic Surgery 05/22/19 Evan Willis MD [address] [place] [address] [phone] Medical Oncologist Medical Oncology 11/02/21 Charles Kingston MD [address] [place] [phone] Dairy Specialist Cardiology 11/03/21
--- OUTSIDE RECORDS SUMMARY | 2024-12-09 18:27 | XMS_ITS | Encounter Summary ---
Author Organization [facility] Address [address] [place] [address] Care Team Providers Care [employer] Name Role Phone Key Tolliver MD Primary Care Provider [phone] Reason for Visit * Reason Comments Medication Refill Encounter Details Date Type Department Care Team ([facility] Contact Info) Description 11/05/2019 Refill [facility] [address] [address] Rodolfo Truong MD [address] [facility] [address] [place] [address] Social History Tobacco Use Types Packs/Day Years Used Date Smoking Tobacco: Never Smokeless Tobacco: Never Alcohol Use Standard Drinks/Week Comments No 0 (1 standard drink = 0.6 oz pur e alcohol) Comments No Sex and Gender Information Value Date Recorded Sex Assigned at Not on file Legal Sex Female 1:52 PM [employer]ESSION[employer] Gender Identity Not on file Sexual Orientation Not on file documented as of this encounter Plan of Treatment Upcoming Encounters Date Type Department Care Team (Late Contact Info) Description 04/14/2025 11:30 AM CDT Office Visit [facility] - [place] [address] [facility] [address] [place] [address] Evan Willis MD [address] [facility] [address] [place] [address] 08/17/2025 1:00 PM TELESALES PROFESSIONAL Office Visit [facility] at the [facility] [address] [facility] [address] [place] [address] Rodolfo Truong MD [address] [facility] [address] [place] [address] documented as of this encounter Visit Diagnoses Not on filedocumented in this encounter Care Teams [employer] Relationship Specialty Start Date End Date Key Tolliver MD [address] [place] [address] PCP - General Internal Medicine 11/05/18 documented as of this encounter
--- OUTSIDE RECORDS SUMMARY | 2024-12-09 18:27 | XMS_ITS | CONTINUITY OF CARE DOCUMENT ---
Author Name elie delgadillo Address Unknown Organization [facility] Address [address] [place] [address] Phone [phone] Care Team Providers Care Print Shop Assistant Name Role Phone Charles Kingston MD Unavailable [phone] RIGOBERTO SNOWDEN DPM Unavailable REFUGIO AMARO MD Unavailable PROBLEMS Condition Status Date Provider Notes Obesity active Josh Agarwal CHEST PAIN-08/12 STRESS ECHO NEG completed - Charles Kingston MD FAMILY HISTORY OF ISCHEMIC HEART DISEASE completed - Charles Kingston MD CAD-09/13 CATH NEG EF 60 completed - Charles Hernandez i, MD DYSPNEA ON EXERTION completed - Charles Kingston MD SINUS TACHYCARDIA active Brina Blunt Family History of CVA or Stroke: completed - Charles Kingston MD Family History of Hyperlipidemia: completed - Charles Kingston MD Family History of Hypertension: completed - Charles Kingston MD Osteoporosis, drug-induced active Clay hyatt MD Stage IIIB ER pos Invasive ductal carcinoma, left breast active Clay Byrne MD COPD active Charles Kingston MD Hypothyroidism active Josh Agarwal Pulmonary hypertension active Charles Ray D Lupus active Charles Kingston MD Hypertension active Charles Kingston MD Abnormal EKG active Josh Agarwal Exposure to COVID-19 coronavirus active Charles Kingston MD Shortness of breath active Charles Kingston MD ENCOUNTERS Date Type Provider Location Encounter Diag nosis - In-person encounter Office Visit Charles Kingston MD [facility] Shortness of breath - In-person encounter Office Visit Charles Kingston MD [facility] - In-person encounter Office Visit Chrales Kingston MD [facility] - In-person encounter Office Visit Charles Kingston MD [facility] Exposure to COVID-19 coronavirus - In-person encounter Office Visit Charles Kingston MD [facility] CHEST PAIN-08/12 STRESS ECHO NEGDYSPNEA ON EXERTIONAbnormal EKG - In-person encounter Office Visit Charles Kingston MD [facility] Pulmonary hypertensionLupusHypertension - In-person encounter Office Visit Charles Kingston MD [facility] FAMILY HISTORY OF ISCHEMIC HEART DISEASEFamily History of CVA or Stroke:COPDHypothyroidism - In-person encounter Office Visit Clay Byrne MD [facility] - In-person encounter Office Visit Charles Kingston MD [facility] - In-person encounter Office Visit Charles Kingston MD [facility] CAD-09/13 CATH NEG EF 60Family History of Hyperlipidemia:Family History of Hypertension: - In-person encounter Office Visit Clay Byrne MD [facility] Osteoporosis, drug-inducedStage IIIB ER pos Invasive ductal carcinoma, left breast - In-person encounter Office Visit Charles Kingston MD [facility] - In-person encounter Office Visit Charles Kingston MD [facility] SINUS TACHYCARDIA - In-person encounter Office Visit Charles Kingston MD [facility] VITAL SIGNS Date Observation Value Provider [...] Lundb erg height E&M 65 [in_i] Josh YUPPTV erg Body Mass Index (Ratio) 38.60 kg/m2 [...] Phelps l blood pressure, resting Yes [facility] Body Mass Index (Ratio) 34.28 kg/m2 Artur [facility] blood pressure, diastolic 90 mm[Hg] Da ton [place] blood pressure, systolic 158 mm[Hg] Dac ia [...] Gibson respiratory rate E&M 16 /min Leonie Gibosn Body Mass Index (Ratio) 34.74 kg/m2 Ayana [...] LinkLogic 3.5-5.2 sodium, serum 142 mmol/L [facility] [phone]/02/ 17 urea nitrogen/creatinine ratio, serum 18 [employer]Logic [...] Not Estab. platelet count 276 X10E3/UL [facility] [phone]/02/ 17 red blood cell distribution width 14.0 [...] 3.4-10.8 LDL cholesterol, serum 164.8 mg/dL Josh [facility] hemoglobin A1C, blood, as [...] as percent of blood leukocytes 0.0 % [facility] - red blood cell (erythrocyte) count, per [...] as percent of blood leukocytes 34.3 % [facility] - Absolute Lymphocytes 1.6 CELLS/UL LinkLogic 0.9 [...] Starkey alanine aminotransferase (SGPT), serum 28 1/L [facility] aspartate aminotransferase (SGOT), serum 18 1/L [facility] creatinine, serum 1.10 mg/dL [facility] urea nitrogen, blood 13.6 mg/dL [facility] carbon dioxide, serum, total 27 mmol/L [facility] chloride, serum 101 mmol/L [facility] potassium, serum 3.7 mmol/L [facility] sodium, serum 138 mmol/L [facility] platelet count 325 10*3/uL Naya Robledo RN [...] once a day - 12/02 Mackenzie Porter PROGRAM DIRECTOR AIR TALENT NORCO 10-325 MG ORAL TABLET completed TAKE DIRECTED - 04/11 Hellen Lezama FERROUS GLUCONATE 325 (36 FE) MG TABS completed TAKE ONE TAB DAILY - 04/11 Hellen Lezama NYSTATIN 232916 UNIT/ML MOUTH/THROAT SUSPENSION completed TAKE DIRECTED - [...] a day 09/04 - 12/02 Mackenzie Ventimiglia [facility] VITAMIN D (ERGOCALCIFEROL) 02870 UNIT ORAL CAPSULE completed 2 caps once a week - 04/11 Hellenthea Lezama LEXAPRO 10 MG ORAL TABLET completed 1 tab by mouth daily - 04/11 LenDaltonrenetta Mina RANITIDINE HCL 150 MG ORAL TABLET completed 1 tab by mouth twice daily - 04/11 LenDaltonrenetta Enriquez ZOCOR 40 MG ORAL TABLET completed 1 tab by mouth daily - 04/11 Kyel Enriquez LISINOPRIL-HYDROCHLO ROTHIAZIDE 10-12.5 MG ORAL TABLET [...] history of marijuana use no Mackenzie Ventimiglia [facility] drug use no Mackenzie Ventimig tonny [facility] alcohol use no Mackenzie Ventimig tonny [facility] smoking status Never smoker Mackenzie Ventim iglia [facility] social history reviewed E&M i ewed - [...] social history E&M Marital Statu s: Hemant maldondao with family/friends E thnicity: Lauro Hogue RN social history reviewed E&M reviewed Lauro Hogue RN physical exercise, frequency, days per week no [employer] caffeine use, averag e drinks per day no [employer] alcohol use, average drinks per day none [facility] smoking status [facility] MENTAL STATUS Date Observation Value Provider assessment of judgme nt and insight E&M Alert and oriented to time, place and person. Mood and affect are normal. Brina Devi assessment of judgme nt and insight E&M Alert and oriented to time, place and person. Mood and affect are normal. 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 Family Member Condition First Female Cousin Family History of Br east Cancer Uncle Family History of Ot her Cancer Father Family History of Mi graine: Father Family History of Hy pertension: Father Family History of Hy perlipidemia: Father Family History of CV A or Stroke: Father Family History of Ar thritis: INSURANCE PROVIDERS Payer name Policy type / Coverage type Jerrell red constitution party ID [employer] MEDICAID (2) Medicaid [id number] ADVANCE DIRECTIVES Name Date DISCUSSED - NO DECISION MADE TREATMENT PLAN Date Name Performer [id number],C, B P today: 158/94 P rior BP: [...] 1 tablet once a day Leisa Caceres [id number],S, W eight loss advised Leisa Caceres [id number],C, H er updated medication list for this problem includes: Synthroid 50 Mcg Tablet (Levothyroxine) ..... Take 1 tablet once a day Leisa Caceres [id number],C,S till very dyspneic. CT of the chest showed COPD, but no other findings. Echo showed pulmonary hypertension (systolic in the 50s). Renal artery duplex was negative. In view of her continued symptoms and finding of pulmonary hypertension, will proceed to R/L cardiac cath. ProBNP was normal. Leisa Caceres [id number],C,S till very dyspneic. CT of the chest showed COPD, but no other findings. Echo showed pulmonary hypertension (systolic in the 50s). Renal artery duplex was negative. In view of her continued symptoms and finding of pulmonary hypertension, will proceed to R/L cardiac cath. ProBNP was normal. Leisa Caceres [id number],C,Weight loss a dvised Leisa Caceres [id number],C, P FT's showed mild obstructive disease. I recommend pulmonary consultation. Charles Kingston MD [id number],W, For unknown reason she stopped her metoprolol [...] tablet once a day Charles Kingston MD [id number],N,P t had COVID a few months ago. [...] MD Cardiology:weight loss encourage d Mackenzie Porter [facility] Cardiology:reported on previous CT chest w ill refer to pulmonary Mackenziemadelaine Porter [facility] Cardiology:BP contro lled c ontinue present medication regimen H er updated medication list for this problem includes: Metoprolol Succinate 100 Mg Tablet Extended Release 24 Hr (Metoprolol succinate) ..... Take 1 tablet by mouth every day Lisinopril 40 Mg Tablet (Lisinopril) ..... 1 tablet once a day Mackenzie Porter [facility] Cardiology:only mild per [facility] w ill update echo Mackenziemadelaine Porter [facility] Cardiology: B P today: 158/94 P rior [...] to R/L cardiac cath. ProBNP was normal. Leias Caceres Cardiology:Still enio y dyspneic. CT of [...] encouraged her to try to lose weight. [facility] Telehealth:Continues to f/u with oncology. [facility] Telehealth:She was t old her HR was high at her oncologist's office but denies chest pain, SOB or palpitations. Continues on Toprol 200mg daily. [facility] Telehealth:BP today (provided by the pt): 127/88 P rior BP: 142/78 (03/12/2019) Her updated medication list for this problem includes: Lisinopril 40 Mg Oral Tablet (Lisinopril) ..... One tab. daily Metoprolol Succinate Er 200 Mg Oral Tablet Extended Release 24 Hour (Metoprolol succinate) ..... One tab. daily Josh [facility] Cardiology follow up :BP today: 142/78 P rior BP: 158/90 (09/25/2018) Her updated medication list for this problem includes: Lisinopril 40 Mg Oral Tablet (Lisinopril) ..... One tab. daily Metoprolol Succinate Er 200 Mg Oral Tablet Extended Release 24 Hour (Metoprolol succinate) ..... One tab. daily Josh [facility] Cardiology follow up :Preop EKG was performed and T-wave inversions were noted. Review of her chart shows these are not new changes. She had a normal cardiac cath in 2016. Josh [facility] Cardiology follow up :Pt is a candidate for shoulder surgery. She jt not have chest pain or SOB. Preop EKG was performed and T-wave inversions were noted. Review of her chart shows these are not new changes. She had a normal cardiac cath in 2016. She is clear for shoulder surgery. [facility] Cardiology follow up :BP today: 158/90 P rior BP: 130/90 (06/19/2016) Her updated medication list for this problem includes: Lisinopril 40 Mg Oral Tablet (Lisinopril) ..... One tab. daily Metoprolol Succinate Er 200 Mg Oral Tablet Extended Release 24 Hour (Metoprolol succinate) ..... One tab. daily [facility] Cardiology follow up :Orders: C omplete Echo (CPT-08778) F VC - 97091 (59589) F RC - 02858 (93736) D LCO - 93019 (84954) 9 9215 HIGH Complex (CPT-31964) P ulmonology (*) [facility] Cardiology follow up :Orders: E KG (CPT-87148) C omplete Echo (CPT-43586) F VC - 95374 (97496) F RC - 90692 (69854) D LCO - 30804 (48328) P ulmonology (*) [facility] Cardiology Follow up:Cardiac cat h was normal. Charles Kingston MD Cardiology Follow up :PFT's showed mild obstructive disease. I recommend pulmonary consultation. Charles Kingston MD Cardiology Follow up :Cardiac cath was normal. PFT's showed mild obstructive disease. I recommend pulmonary consultation. Charles Kingston MD Hem/Onc:As above, sh e is overdue for DEXA scan. Orders: D exa Scan (dexa) 9 9214 MOD Complex (CPT-41298) Clay Byrne MD Hem/Onc:The patient is on adjuvant hormonal therapy with montly leuprolide injections since 2012. She was intolerant tamoxifen secondary to 'passing out episodes'. She will conitnue adjuvant hormonal therapy for at least 5 years. She is overdue for a repeat DEXA scan. She will return in 4 months for follow up. Orders: S NOMED-CT: [id number] Current Medications Documented (SCT-[id number]) C BC (INCLUDES DIFF/PLT) (6399) C OMPREHENSIVE METABOLIC PANEL W/EGFR (17420) V itamin D, 25 Hydroxy (909130) 9 9214 MOD Complex (CPT-24938) Clay Byrne MD Cardiology:Continues to have the [...] Charles Kingston MD Cardiology:Orders: C omplete Echo (CPT-83305) S TR - Nuclear (33811) Charles Kingston MD Hem/Onc:Refer back t o Dr. Kingston for evaluation of chest pain. O rders: 9 9245 HIGH Complex (CPT-20497) Clay Byrne MD Hem/Onc:Repeat DEXA scan as patient is on adjuvant antihormonal therapy. Orders: D exa Scan (dexa) 9 9245 HIGH Complex (CPT-47989) Clay Byrne MD Hem/Onc:The patient is status [...] induced osteoporosis. Orders: 9 9245 HIGH Complex (CPT-54055) Clay Byrne MD Date Name Pulmonology Pulmonology Complete Echo PROTHROMBIN TIME WIT H INR LIPID PANEL CBC (INCLUDES DIFF/P LT) BASIC METABOLIC PANE L W/EGFR Cardiac Cath - L/R - GC BASIC METABOLIC PANE L W/EGFR PROBNP, N TERMINAL CT Chest with contra st Renal Artery Duplex Complete Echo DLCO - 12198 FRC - 15262 FVC - 59851 Complete Echo Vitamin D, 25 Hydrox y COMPREHENSIVE METABO LIC PANEL W/EGFR CBC (INCLUDES DIFF/P LT) Dexa Scan PROTHROMBIN TIME WIT H INR CBC (INCLUDES DIFF/P LT) LIPID PANEL BASIC METABOLIC PANE L W/EGFR Cardiac Cath - Left - GC DLCO - 91658 FRC - 46294 FVC - 27246 STR - Nuclear Complete Echo Dexa Scan B TYPE NATRIURETIC P EPTIDE (BNP) Mobile Cardiac Tele Complete Echo Cardiac Cath - GC HISTORY OF PROCEDURES Procedure Date Procedure Name Provider Procedure Notes S tatus Complex e/m visit add on Charles Kingston MD completed EKG Charles Kingston MD completed EKG Charles Kingston MD completed FVC / MVV with bronchodilator - 06712 Charles Kingston MD completed FRC - 29271 Charles Kingston MD completed SpO2 w/o 6min walk/titration Charles Kingston MD completed DLCO - 79722 Charles Kingston MD complete d EKG Charles Kingston MD completed SNOMED-CT: 360926320 432239 Current Medications Documented Charles Kingston MD completed SNOMED-CT: 212215943 832961 Current Medications Documented Clay Byrne MD completed FVC - 06992 Charles Kingston MD completed FRC - 50720 Charles Kingston MD completed DLCO - 93402 Charles Kingston MD complete d SNOMED-CT: 877300682 188663 Current Medications Documented Charles Kingston MD completed SNOMED-CT: 99293674 Physical Exam, Performed: Pulse Exam of Foot Charles Kingston MD completed EKG Charles Kingston MD completed SNOMED-CT: 445467035 227948 Current Medications Documented Charles Kingston MD completed SNOMED-CT: 338091661 176066 Current Medications Documented Clay Byrne MD completed EKG Charles Kingston MD completed
[2024-12-09 18:32] VITALS: BP 159/87; PULSE 102; RESP 20; TEMP 36.9; O2SAT 97
--- NOTE | 2024-12-09 19:28 | PC.NURSE ---
Pt ambulatory to triage desk stating she was also having UA sx of frequency and R side flank pain. This RN instructed pt to educated provider of sx when she arrives to room in back.
--- OUTSIDE RECORDS SUMMARY | 2024-12-09 22:07 | XMS_ITS | Encounter Summary ---
Author Organization [facility] Address [address] [place] [address] Care Team Providers Care E Mail System Administrator Name Role Phone Key Tolliver MD Primary Care Provider [phone] Reason for Visit * Reason Comments Medication Refill Encounter Details Date Type Department Care Team ([facility] Contact Info) Description 11/20/2021 [facility] [id number] [place] [address] Rodolfo Truong MD [address] [place], [place] [id number] Social History Tobacco Use Types Packs/Day Years Used Date Smoking Tobacco: Never Smokeless Tobacco: Never Alcohol Use Standard Drinks/Week Comments No 0 (1 standard drink = 0.6 oz pur e alcohol) Comments No Sex and Gender Information Value Date Recorded Sex Assigned at Not on file Legal Sex Female 1:52 PM HISTORY TUTOR Gender Identity Not on file Sexual Orientation Not on file documented as of this encounter Plan of Treatment Upcoming Encounters Date Type Department Care Team ([facility] Contact Info) Description 04/14/2025 11:30 AM CDT Office Visit [facility] Oncology and Hematology - [place] [address] [facility] [address] [place] [address] Evan Willis MD [address] [place] [address] 08/17/2025 1:00 PM HISTORY TUTOR Office Visit [facility] Plastic Surgery at the [facility] [address] [place] [address] Rodolfo Truong MD [address] [facility] [address] [place] [address] documented as of this encounter Visit Diagnoses Not on filedocumented in this encounter Care Teams E Mail System Administrator Relationship Specialty [place] [address] [place] [address] PCP - General Internal Medicine 11/05/18 documented as of this encounter
--- OUTSIDE RECORDS SUMMARY | 2024-12-09 22:07 | XMS_ITS ---
Care Plan - [facility] Created on: December 09, 2024 KATHY MENDENHALL : 1970 Sex: Female Author Organization [facility] Address [address] [place] [address] Phone Care Team Providers Care Winding Inspector And Tester Name Role Phone NILESH DUKE MD Primary Care Provider [phone]
--- OUTSIDE RECORDS SUMMARY | 2024-12-09 22:07 | XMS_ITS | Clinical Summary ---
Author Organization [facility] Address [address] [place] [address] Phone Care Team Providers Care Street Openings Inspector Name Role Phone NILESH DUKE MD Primary Care Provider [phone] Reason for Visit and Chief Complaint * PHONE CALL Problems Includes: Problems addressed during this encounter and other active Problems All Visits Onset Date Resolved Date Provider Condition S tatus Chronic Pain Syndrome 07/31/2023 NURY ECHAVARRIA PMHNP Active Last Documented On 3 1:32PM ; [facility] Plan of Treatment No Plan of [...] On 4 2:31PM By FELISHA WUBC ; [facility] Hysingla ER 20 MG Oral Table t ER 24 Hour Abuse-Deterrent 01/21/2024 Provider: FELISHA FREEMAN ANP-BC Diagnosis: Spinal stenosis, lumbar region with neurogenic claudication 1 tablet q 24 hours Last Documented On 4 2:31PM By FELISHA SENIOR ; [facility] oxyCODONE-Acetaminophen 10-325 MG Oral Tablet 01/15/20 24 Provider: Diagnosis: Last Documented On 02/01/2024 8:52AM By Lilli MAK ; [facility] traZODone HCl 100 MG Oral Tablet 11/02/2023 Provider : Diagnosis: Last Documented On 4 10:13AM By Lilli MAK ; [facility] Cyclobenzaprine HCl 10 MG Oral Tablet 10/29/2023 Pro vider: REFUGIO AMARO MD Diagnosis: Last Documented On 4 10:15AM By Lilli MAK ; [facility] Ketoconazole 2% External Cream 10/29/2023 Provider: REFUGIO AMARO MD Diagnosis: Last Documented On 4 10:15AM By Lilli MAK ; [facility] hydrOXYzine HCl 50 MG Oral Tablet 10/26/2023 Provide r: Diagnosis: Last Documented On 4 10:16AM By Lilli MAK ; [facility] Anastrozole 1 MG Oral Tablet 10/24/2023 Provider: Diagnosis: Last Documented On 4 10:16AM By Lilli MAK ; [facility] FeroSul 325 (65 Fe) MG Oral Tablet 10/24/2023 Provid er: Diagnosis: Last Documented On 4 10:18AM By Lilli MAK ; [facility] Venlafaxine HCl ER 225 MG Oral Tablet Extended R elease 24 Hour 10/23/2023 Provider: Diagnosis: Last Documented On 4 10:18AM By Lilli MAK ; [facility] Pregabalin 200 MG Oral Capsule 10/08/2023 Provider: FELISHA SENIOR Diagnosis: Fibromyalgia TAKE 1 CAPSULE BY MOUTH TWICE DAILY Last Documented On 4 1:51PM By FELISHA SENIOR ; [facility] Omeprazole 40 MG Oral Capsule Delayed Release 08/11/20 Provider: Diagnosis: Last Documented On 4 10:17AM By Lilli MAK ; [facility] Lisinopril 40 MG Oral Tablet 04/11/2023 Provider: REFUGIO AMARO MD Diagnosis: Last Documented On 3 10:40AM By Lilli MAK ; [facility] Famotidine 20 MG Oral Tablet 01/23/2023 Provider: Diagnosis: Last Documented On 02/05/2023 4:01PM By Lilli MAK ; [facility] ARIPiprazole 2 MG Oral Tablet 01/09/2023 Provider: Diagnosis: Last Documented On 02/05/2023 4:04PM By Lilli MAK ; [facility] busPIRone HCl 15 MG Oral Tablet 09/20/2022 Provider: Diagnosis: Last Documented On 02/05/2023 4:05PM By Lilli MAK ; [facility] NIFEdipine ER 30 MG Oral Tab let Extended Release 24 Hour 05/04/2022 Provider: REFUGIO AMARO MD Diagnosis: Last Documented On 05/09/2022 3:25PM By Lilli MAK ; [facility] Metoprolol Succinate ER 200M G Oral Tablet Extended Release 24 Hour 10/03/2018 Provider: Diagnosis: Last Documented On 9 3:00PM By VENKAT MAK ; [facility] Medications Administered Includes: Administered Medications from this encounter No Administered Medications Recorded Results Includes: Results discussed during this encounter No Results Recorded For Specified Dates History of Present Illness Includes: History of Present Illness from this encounter No History of Present Illness Recorded Social History Description Last Updated Tobacco non-user 11/07/2023 Last Documented On 4 11:54AM ; [facility] Alcohol 07/31/2023 Last Documented On 4 11:54AM ; [facility] Consuming 5 or more drinks per day None 07/31/2023 Last Documented On 4 11:54AM ; [facility] Current nonsmoker 07/31/2023 Last Documented On 4 11:54AM ; [facility] Drug use 07/31/2023 Last Documented On 4 11:54AM ; [facility] Lives with spouse 07/31/2023 Last Documented On 4 11:54AM ; [facility] Non-smoker 07/31/2023 Last Documented On 4 11:54AM ; [facility] Number of times used recreat ional drug/ prescription drug for nonmedical reason. None 07/31/2023 Last Documented On 4 11:54AM ; [facility] Smoking status : Never smoker 08/07/2019 Last Documented On 4 11:54AM ; [facility] Currently 10/03/2018 Last Documented On 4 11:54AM ; [facility] Medical History Includes: Medical History addressed during this encounter Description Last Updated Reviewed and Unchanged 10/10/2019 Last Documented On 4 11:54AM ; [facility] Currently wearing eyeglasses 10/03/2018 Last Documented On 4 11:54AM ; [facility] Previously 3 time(s) 10/03/2018 Last Documented On 4 11:54AM ; [facility] History of arthritis 10/03/2018 Last Documented On 4 11:54AM ; [facility] History of cancer 10/03/2018 Last Documented On 4 11:54AM ; [facility] History of hypertension 10/03/2018 Last Documented On 4 11:54AM ; [facility] Family History Includes: Family History [...] Active Last Documented On 4 8:53AM ; [facility] Encounters Encounter Provider Location Date Check-In Time Check-Out Time Diagnosis * PHONE CALL FELISHA SENIOR 12/21/2023 11:54AM 11:59PM Insurance Includes: Active Insurance Policies Plan Name Member ID Group # Subscriber Relationship Effect nieves Dates - [facility] [id number] KATHY Sanchez Clinical Notes Includes: Clinical Notes from this encounter * Progress note Date Encounter Last Documented by 12/21/2023 * PHONE CALL Last documented on 12/28/2023; 8:42 AM, FELISHA GIBSON ANP-; [facility] Active Problems & Conditions - Chronic Pain Syndrome Chief Complaint Phone Call - Chief Concern: reason for call:pt wanted to let you know she was given tramadol, i just picked it up but tramadol doesn't do anything for me , she just wanted you to be aware she was given this rx, liborios pt phone # for return call:[phone] date/initials:12/21/23, kms. Past Medical/Surgical History Reported: Medical: [...]
--- OUTSIDE RECORDS SUMMARY | 2024-12-09 22:07 | XMS_ITS | Clinical Summary ---
Author Organization [facility] Address [address] [place] [address] Phone Care Team Providers Care Roof Designer Name Role Phone Key Tolliver MD Primary [...] Insurance MEDICAID [employer] Care Teams Roof Designer Relationship Specialty Start Date End Date Key Tolliver MD [address] [place] [address] PCP - General Internal Medicine 03/14/20
--- OUTSIDE RECORDS SUMMARY | 2024-12-09 22:07 | XMS_ITS | Clinical Summary ---
Author Organization [facility] Address [address] [place], [place] [address] [address] Care Team Providers Care Field Secretary Name Role Phone Key Tolliver MD Primary Care Provider [phone] Allergies Active Allergy Reactions Criticality Noted Date [...] Tablet 4 Active naloxone (NARCAN) 4 mg/spray [place], Non-Aerosol EMERGENCY USE ONLY: Administer 1 spray [...] Type Department Care Team Description 11/20/2024 Telephone [facility] Plastic Surgery at the [facility] Medicine [address] [facility] [address] [place] [address] Rodolfo Truong MD Wants Appointment 11/08/2024 External Device Data STL ABSTRACTION Provider, Abstract 11/08/2024 External Device Data ST[facility] ABSTRACTION Provider, Abstract 11/03/2024 Refill [facility] Oncology and Hematology - [facility] Emery [address] [place] [address] Evan Willis MD 10/07/2024 External [...] on file Legal Sex Female 1:52 PM TRANSIT PROOF MACHINE OPERATOR Gender Identity Not on file Sexual Orientation Not on file Last Filed Vital Signs Vital Sign Reading Time Taken Comments Blood Pressure 153/86 08/11/2024 12:55 PM TRANSIT PROOF MACHINE OPERATOR Pulse 88 07/28/2024 12:10 PM TRANSIT PROOF MACHINE OPERATOR Temperature 36.3 C (97.4 F) 07/28/2024 12:10 PM TRANSIT PROOF MACHINE OPERATOR Respiratory Rate 20 07/28/2024 12:10 PM TRANSIT PROOF MACHINE OPERATOR Oxygen Saturation 94% 07/28/2024 12:10 PM TRANSIT PROOF MACHINE OPERATOR Inhaled Oxygen Concentration - - Weight 104.8 kg (231 lb) 08/11/2024 12:55 PM TRANSIT PROOF MACHINE OPERATOR Height 165.1 cm (5' 5 ) 08/11/2024 12:55 PM TRANSIT PROOF MACHINE OPERATOR Body Mass Index 38.44 08/11/2024 12:55 PM TRANSIT PROOF MACHINE OPERATOR Plan of Treatment Upcoming Encounters Date Type Department Care Team (Late st Contact Info) Description 04/14/2025 11:30 AM CDT Office Visit [facility] Oncology and Hematology - [place] [address] [facility] [address] [place] [address] Evan Willis MD [address] [facility] [address] [place] [address] 08/17/2025 1:00 PM TRANSIT PROOF MACHINE OPERATOR Office Visit [facility] Plastic Surgery at the [facility] [address] [place] [address] Rodolfo Truong MD [address] [employer] [address] Health Maintenance Due Date Last Done Comments [...] 09/11/2027 09/11/2017 Medical Devices Implanted Type Area Color Finisher Device Identifier Shelf Expiration Date Model / Serial / Lot Dry Molder Clip Surgiclip Ii Yordan 9.75in [id number] - [id number] Implanted:Qty: 1 on 10/23/2019 by Rodolfo Truong MD at [facility] Clip N/A: Breast [employer] - COVIDIEN [id number] 06/02/2024 [id number] / / [id number] Natrelle Inspira Softtouch Breast Implant Implanted:Qty: 1 on 07/28/2024 by Rodolfo Truong MD at [facility] Other Right: Breast [employer]ICAL [id number] 10/08/2028 SSX-750 / [id number] / Natrelle Inspira Softtouch Breast Implant Implanted:Qty: 1 on 07/28/2024 by Rodolfo Truong MD at [facility] Other Left: Breast [employer] MEDICAL [id number] 07/16/2026 SSF-745 / [id number] / Description:Both Allergan Im plants Requisition,[id number]. Knee Replacement-Yves Plate/ Screws Of Neck Left Shoulder Replacement Explanted Type Area Color Finisher Device Identifier Shelf Expiration Date Model / Serial / Lot Tissue Gas Controller W/ Suture Tabs Implanted:Qty: 1 on 10/23/2019 by Rodolfo Truong MD at [facility] Explanted:Qty: 1 on 04/06/2020 at [facility] Mammary Left: Breast [employer] MEDICAL [id number] 07/07/2024 133S-MX-1 3-T / [id number] / Description:Filled with 120m l 0.9% NaCl Both Allergan tissue expanders are processed on requisition [id number]. Tissue Gas Controller With Suture Tabs Implanted:Qty: 1 on 10/23/2019 by Rodolfo Truong MD at [facility] Explanted:Qty: 1 on 04/06/2020 at [facility] Mammary Right: Breast [employer] MEDICAL 04/25/2024 133S-MX-1 3-T / [id number] / Description:Requisition # [id number] Natrelle Inspira Softtouch Breast Implant 450cc Implanted:Qty: 1 on 04/06/2020 by Rodolfo Truong MD at [facility] Explanted:Qty: 1 on 08/16/2020 at [facility] Mammary Left: Breast [employer]ICAL [id number] 08/17/2024 SSF-450 / [id number] / Description:Both Allergan Br east Implants are processed on requisition [id number]. Natrelle Inspira Softtouch Breast Implant 525cc Implanted:Qty: 1 on 04/06/2020 by Rodolfo Truong MD at [facility] Explanted:Qty: 1 on 08/16/2020 at [facility] Mammary Right: Breast [employer]ICAL [id number] 12/29/2023 SSX-525 / [id number] / Description:Requisition # [id number]. Natrelle Inspira Soft Touch Ssf-560 Implanted:Qty: 1 on 08/16/2020 at [facility] Explanted:Qty: 1 on 02/22/2023 by Rodolfo Truong MD at [facility] Right: Breast [employer] MEDICAL [id number] 06/21/2024 SSF-560 / [id number] / Description:Requisition # [id number] left breast Imp Breast Inspira Ssx 700ml Ssx-700 - [id number] Explanted:Qty: 1 on 02/22/2023 at [facility] Mammary Right: Breast [employer] MEDICAL 01/04/2026 SSX-700 / [id number] / Natrelle Inspira Softtouch Ssx-615 Implanted:Qty: 1 on 08/16/2020 at [facility] Explanted:Qty: 1 on 02/22/2023 by Rodolfo Truong MD at [facility] Mammary Right: Breast [employer] MEDICAL [id number] 10/15/2024 SSX-615 / [id number] / Description:both Allergan re placement breast implants are processed on requisition [id number]. Imp Breast Inspira Ssf 650ml Ssf-650 - [id number] Implanted:Qty: 1 on 02/22/2023 by Rodolfo Truong MD at [facility] Explanted:Qty: 1 on 07/28/2024 by Rodolfo Truong MD at [facility] Mammary Left: Breast [employer]ICAL 09/11/2027 SSF-650 / [id number] / Imp Breast Inspira Ssx 615ml Ssx-615 - [id number] Implanted:Qty: 1 on 02/22/2023 by Rodolfo Truong MD at [facility] Explanted:Qty: 1 on 07/28/2024 by Rodolfo Truong MD at [facility] Mammary Right: Breast [employer] MEDICAL 10/15/2024 SSX-615 / [id number] / Description:Original implant placed on 08/16/2020 was explanted today but surgeon reimplanted after trying alteratives unsuccessfully. Procedures Procedure Name Priority Date/Time Associated Diagnosis Comments ENDOSCOPY, COLON, SCREENING Routine 01/01/2017 from Last 3 Months or Most Recently Relevant to Health Maintenance Results * ENDOSCOPY, COLON, SCREENING (01/01/2017) [facility] Brenda Delgado MD GI PROCEDURE ORDERABLES Edited Result - Final [facility] from Last 3 Months or Most Recently Relevant to Health Maintenance Insurance [employer] MEDICAID RX [place] [employer] (INTERNAL) [facility] RX [employer] Medicaid RX [facility] [place] [address] [facility] MEDICAID Advance Directives For more information, please contact: [phone] * Full Code (Latest Code Status on [...] 8:44 AM 10/23/2019 2:10 PM Care Teams Field Secretary Relationship Specialty [place] [address] [place] [id number] PCP - General Internal Medicine 11/05/18
--- OUTSIDE RECORDS SUMMARY | 2024-12-09 22:08 | XMS_ITS | Clinical Summary ---
Author Organization [facility] Address [address] [place] [address] Phone Care Team Providers Care Food Safety Technician Name Role Phone LEILANI MABRY, NILESH Primary Care Provider [phone] Reason for Visit and Chief Complaint The Chief Complaint is: FU MEDS ~ADDED TYLENOL 500, TAKING #2 BID Problems Includes: Problems addressed during this encounter and other active Problems Current Visit Onset Date Resolved Date Provider Charla jones Status Chronic Pain Syndrome 07/31/2023 HARLEEN COULTER PMHNP Active Last Documented On 3 1:32PM ; [facility] Plan of Treatment Education and Decision Aids were provided during visit for: Pill Count: two HYSINGLA Last Documented On 4 11:00AM ; [facility] Pill Count: HYDROCODONE ~out of medication Last Documented On 4 11:43AM ; [facility] Assessments Includes: Assessments from this encounter Findings - Systemic lupus erythematosus [M32.9 - Systemic lupus erythematosus, unspecified] - Last Documented On 12/17/2023 1:18PM ; [facility] - Sacroiliitis [M46.1 - Sacroiliitis, not elsewhere classified] - Last Documented On 12/17/2023 1:18PM ; [facility] - Lumbar spondylosis with radiculopathy [M47.26 - Other spondylosis with radiculopathy, lumbar region] - Last Documented On 12/17/2023 1:18PM ; [facility] - Lumbar stenosis with neurogenic claudication [M48.062 - Spinal stenosis, lumbar region with neurogenic claudication] - Last Documented On 12/17/2023 1:18PM ; [facility] - Fibromyalgia [M79.7 - Fibromyalgia] - Last Documented On 12/17/2023 1:18PM ; [facility] - Chronic pain syndrome [G89.4 - Chronic pain syndrome] - Last Documented On 12/17/2023 1:18PM ; [facility] - nursing home use of opiate analgesic [Z79.891 - nursing home (current) use of opiate analgesic] - Last Documented On 12/17/2023 1:18PM ; [facility] Instructions Includes: Instructions from this encounter Education and Decision Aids were provided during visit for: Pill Count: two HYSINGLA Last Documented On 4 11:00AM ; [facility] Pill Count: HYDROCODONE ~out of medication Last Documented On 4 11:43AM ; [facility] Medical Equipment - Implanted Devices [...] 11:11AM By FELISHA SENIOR ; [facility] New / Renewed during this visit FELISHA SENIOR on 12/17/2023 Hysingla ER 20 MG Oral Table t ER 24 Hour Abuse-Deterrent Provider: FELISHA SENIOR 30 day supply: 30 tablet, 0 refills Diagnosis: Spinal stenosis, lumbar region with neurogenic claudication 1 tablet q 24 hours [facility] [address] [facility], [phone] - Last Documented On 4 2:27PM By FELISHA SENIOR ; [facility] Current Medications (continue as prescribed) Narcan 4 MG/0.1ML Nasal Liquid 01/21/2024 [facility] Diagnosis: Spinal stenosis, lumbar region with neurogenic claudication as directed Last Documented On 4 2:31PM [facility] Hysingla ER 20 MG Oral Table t ER 24 Hour Abuse-Deterrent 01/21/2024 [facility] Diagnosis: Spinal stenosis, lumbar region with neurogenic claudication 1 tablet q 24 hours Last Documented On 4 2:31PM [facility] oxyCODONE-Acetaminophen 10-325 MG Oral Tablet 01/15/20 Provider: Diagnosis: Last Documented On 02/01/2024 8:52AM By Lilli MAK ; [facility] traZODone HCl 100 MG Oral Tablet 11/02/2023 Provider : Diagnosis: Last Documented On 4 10:13AM By Lilli MAK ; [facility] Cyclobenzaprine HCl 10 MG Oral Tablet 10/29/2023 Pro vider: REFUGIO AMARO MD Diagnosis: Last Documented On 4 10:15AM By Lilli MAK ; [facility] Ketoconazole 2% External Cream 10/29/2023 Provider: REFUGIO AMARO MD Diagnosis: Last Documented On 4 10:15AM By Lilli MAK ; [facility] hydrOXYzine HCl 50 MG Oral Tablet 10/26/2023 Provide r: Diagnosis: Last Documented On 4 10:16AM By Lilli MAK ; [facility] Anastrozole 1 MG Oral Tablet 10/24/2023 Provider: Diagnosis: Last Documented On 4 10:16AM By Lilli MAK ; [facility] FeroSul 325 (65 Fe) MG Oral Tablet 10/24/2023 Provid er: Diagnosis: Last Documented On 4 10:18AM By Lilli MAK ; [facility] Venlafaxine HCl ER 225 MG Oral Tablet Extended R elease 24 Hour 10/23/2023 Provider: Diagnosis: Last Documented On 4 10:18AM By Lilli MAK ; [facility] Pregabalin 200 MG Oral Capsule 10/08/2023 Provider: FELISHA WU Diagnosis: Fibromyalgia TAKE 1 CAPSULE BY MOUTH TWICE DAILY Last Documented On 4 1:51PM By FELISHA SENIOR ; [facility] Omeprazole 40 MG Oral Capsule Delayed Release 08/11/20 Provider: Diagnosis: Last Documented On 4 10:17AM By Lilli MAK ; [facility] Lisinopril 40 MG Oral Tablet 04/11/2023 Provider: REFUGIO AMARO MD Diagnosis: Last Documented On 3 10:40AM By Lilli AMK ; [facility] Famotidine 20 MG Oral Tablet 01/23/2023 Provider: Diagnosis: Last Documented On 02/05/2023 4:01PM By Lilli MAK ; [facility] ARIPiprazole 2 MG Oral Tablet 01/09/2023 Provider: Diagnosis: Last Documented On 02/05/2023 4:04PM By Lilli MAK ; [facility] busPIRone HCl 15 MG Oral Tablet 09/20/2022 Provider: Diagnosis: Last Documented On 02/05/2023 4:05PM By Lilli MAK ; [facility] NIFEdipine ER 30 MG Oral Tab let Extended Release 24 Hour 05/04/2022 Provider: REFUGIO AMARO MD Diagnosis: Last Documented On 05/09/2022 3:25PM By Lilli MAK ; [facility] Metoprolol Succinate ER 200M G Oral Tablet Extended Release 24 Hour 10/03/2018 Provider: Diagnosis: Last Documented On 9 3:00PM By VENKAT MAK ; [facility] Medications Administered Includes: Administered Medications from this encounter No Administered Medications Recorded Vital Signs Includes: Vital Signs from this encounter Vital Name 12/17/2023 10:57A Temp-Oral (F) 98.6 Height (in) 65 Weight (lb) 215 Body Mass Index 35.8 Body Surface Area 2 Pain Level 8 Last Documented: On 12/17/2023 10:59A M ; [facility] Results Includes: Results [...] spinal cord summation trial using 28 contact [employer] percutaneous leads. His replacement. Guidance. Patient tolerated the procedure well. Despite multiple efforts approved reprogramming, and a report back to the [employer] customer engagement representative that she was getting approximate 75% [...] psychological evaluation and meeting with the [employer] customer engagement representative. Psychological evaluation revealed no barriers to [...] need a refill of hydrocodone today. [place] [employer] appropriate. Last UDS appropriate, this will be [...] simulation trial under fluoroscopic guidance. Of note, [place] prescription monitoring database was reviewed and found [...] UDS appropriate. We will repeat this today. [facility] appropriate. She has exhibited no [...] allows her to maintain function levels. [place] [employer] is appropriate. UDS was appropriate Past note: [...] for visit: Provider: Privacy of provider's office. [address] [place] [id number] Patient: Patient personal setting Total time spent with patient via telecommunication minutes Social History Description Last Updated Tobacco non-user 11/07/2023 Last Documented On 4 10:56AM ; [facility] Alcohol 07/31/2023 Last Documented On 4 10:56AM ; [facility] Consuming 5 or more drinks per day None 07/31/2023 Last Documented On 4 10:56AM ; [facility] Current nonsmoker 07/31/2023 Last Documented On 4 10:56AM ; [facility] Drug use 07/31/2023 Last Documented On 4 10:56AM ; [facility] Lives with spouse 07/31/2023 Last Documented On 4 10:56AM ; [facility] Non-smoker 07/31/2023 Last Documented On 4 10:56AM ; [facility] Number of times used recreat ional drug/ prescription drug for nonmedical reason. None 07/31/2023 Last Documented On 4 10:56AM ; [facility] Smoking status : Never smoker 08/07/2019 Last Documented On 4 10:56AM ; [facility] Currently 10/03/2018 Last Documented On 4 10:56AM ; [facility] Procedures and Surgical History Includes: Procedures from this encounter Procedures Code Diagnosis Performing Provider Service Location Service Date CLINIC VISIT T1015 Other spondylosi s with radiculopathy, lumbar region, Systemic lupus erythematosus, unspecified, nursing home (current) use of opiate analgesic, Spinal stenosis, lumbar region with neurogenic claudication FELISHA ROTHMAN ANP[facility] 12/17/2023 Last Documented On 4 12:11PM ; [facility] use of tobacco assessment performed 1000F Last Documented On 4 10:59AM ; [facility] review of medications documented 1160F Last Documented On 4 10:59AM ; [facility] Clinical summary provided to patient via portal/mailed. ~ Patient understands and agrees with treatment plan. Questions answered Last Documented On 4 11:43AM ; [facility] Medical History Includes: Medical History addressed during this encounter Description Last Updated Reviewed and Unchanged 10/10/2019 Last Documented On 4 10:56AM ; [facility] Currently wearing eyeglasses 10/03/2018 Last Documented On 4 10:56AM ; [facility] Previously 3 time(s) 10/03/2018 Last Documented On 4 10:56AM ; [facility] History of arthritis 10/03/2018 Last Documented On 4 10:56AM ; [facility] History of cancer 10/03/2018 Last Documented On 4 10:56AM ; [facility] History of hypertension 10/03/2018 Last Documented On 4 10:56AM ; [facility] Family History Includes: Family History [...] Documented On 4 8:53AM ; [facility] Encounters Encounter Provider Location Date Check-In Time Check-Out Time Diagnosis TELEHEALTH FELISHA SENIOR [facility] 12/17/19 24 10:55AM 11:15AM Systemic Lupus Erythematosus,Chr onic Pain Syndrome,Sacroili itis,Fibromyalgia ,Spinal Stenosis Lumbar with Neurogenic Claudication,Spon dylosis with Radiculopathy Lumbar Region,Senior Care Use of Opiate Analgesic Insurance Includes: Active Insurance Policies Plan Name Member ID Group # Subscriber Relationship Effect nieves Dates 1 - [facility] [id number] KATHY MCNULTY Self Clinical Notes Includes: Clinical Notes from this encounter * Progress note Date Encounter Last Documented by 12/17/2023 TELEHEALTH Last documented on 12/17/2023; 1:18 PM, FELISHA SENIOR; [facility] Active Problems & [...] spinal cord summation trial using 28 contact [employer] percutaneous leads. His replacement. Guidance. Patient tolerated the procedure well. Despite multiple efforts approved reprogramming, and a report back to the [employer] customer engagement representative that she was getting approximate 75% [...] psychological evaluation and meeting with the [employer] customer engagement representative. Psychological evaluation revealed no barriers to [...] need a refill of hydrocodone today. [place] [employer] appropriate. Last UDS appropriate, this will be [...] simulation trial under fluoroscopic guidance. Of note, [place] prescription monitoring database was reviewed and found [...] UDS appropriate. We will repeat this today. [facility] appropriate. She has exhibited no [...] Medication allows her to maintain function levels. [place] [employer] is appropriate. UDS was appropriate Past note: [...] syndrome [G89.4 - Chronic pain syndrome] - nursing home use of opiate analgesic [Z79.891 - extermination inspector (current) use of opiate analgesic] Therapy - [...] for visit: Provider: Privacy of provider's office. [address] [place] [address].[place] [address] Patient: Patient personal setting Total time spent with patient via telecommunication minutes
--- OUTSIDE RECORDS SUMMARY | 2024-12-09 22:08 | XMS_ITS | Clinical Summary ---
Author Organization [facility] Address [address] [place] [address] Care Team Providers Care Military Technology Manager Name Role Phone Unavailable Primary Care Provider Unavailabl e Allergies Active Allergy Reactions Criticality Noted Date Comments Tape Rash Low 09/12/2016 Medications anastrozole 1 MG tablet TAKE 1 TABLET(1 MG) BY MOUTH DAILY 7 Active cholecalciferol (D3-50) 07986 units capsule Take 100,000 Units by mouth [...] A MEAL 8 Active multi vitamin/mineral s (VITAMINS/SR. MANAGER ALS) tablet Take 1 tablet by mouth. 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 Pulse 89 08/01/2018 1:02 PM [employer]BI[employer] ARCHITECT Temperature 36.6 C (97.9 F) 08/01/2018 1:02 PM [employer]BI[employer] ARCHITECT Respiratory Rate 20 08/01/2018 1:02 PM [employer]BI[employer] ARCHITECT Oxygen Saturation 100% 08/01/2018 1:02 PM [employer] ARCHITECT Inhaled Oxygen Concentration - - Weight 88 kg (194 lb) 08/01/2018 1:02 PM [employer]BI[employer] ARCHITECT Height 167.6 cm (5' 6 ) 08/01/2018 1:02 PM MOBILE SOLUT[employer] ARCHITECT Body Mass Index 31.31 08/01/2018 1:02 PM MOBILE SOLUT[employer] ARCHITECT Plan of Treatment Health Maintenance Due Date [...] patient's age to complete this topic [place] [address] [address] [place] [address]
--- OUTSIDE RECORDS SUMMARY | 2024-12-09 22:08 | XMS_ITS | Clinical Summary ---
Author Organization [facility] Address [address] [place] [address] Phone Care Team Providers Care Public Speaking Instructor Name Role Phone LEILANI MABRY, NILESH Primary Care Provider [phone] Reason for Visit and Chief Complaint RX ISSUE/REFILL Problems Includes: Problems addressed during this encounter and other active Problems All Visits Onset Date Resolved Date Provider Condition S tatus Chronic Pain Syndrome 07/31/2023 NURY ECHAVARRIA PMHNP Active Last Documented On 3 1:32PM ; [facility] Plan of Treatment No Plan of [...] 4 2:31PM By FELISHA HERRERA-BC ; [facility] Hysingla ER 20 MG Oral Table t ER 24 Hour Abuse-Deterrent 01/21/2024 Provider: FELISHA FREEMAN ANP-BC Diagnosis: Spinal stenosis, lumbar region with neurogenic claudication 1 tablet q 24 hours Last Documented On 4 2:31PM By FELISHA SENIOR ; [facility] oxyCODONE-Acetaminophen 10-325 MG Oral Tablet 05/14/20 24 Provider: Diagnosis: Last Documented On 02/01/2024 8:52AM By Lilli MAK ; [facility] traZODone HCl 100 MG Oral Tablet 11/02/2023 Provider : Diagnosis: Last Documented On 4 10:13AM By Lilli MAK ; [facility] Cyclobenzaprine HCl 10 MG Oral Tablet 10/29/2023 Pro vider: REFUGIO AMARO MD Diagnosis: Last Documented On 4 10:15AM By Lilli MAK ; [facility] Ketoconazole 2% External Cream 10/29/2023 Provider: REFUGIO AMARO MD Diagnosis: Last Documented On 4 10:15AM By Lilli MAK ; [facility] hydrOXYzine HCl 50 MG Oral Tablet 10/26/2023 Provide r: Diagnosis: Last Documented On 4 10:16AM By Lilli MAK ; [facility] Anastrozole 1 MG Oral Tablet 10/24/2023 Provider: Diagnosis: Last Documented On 4 10:16AM By Lilli MAK ; [facility] FeroSul 325 (65 Fe) MG Oral Tablet 10/24/2023 Provid er: Diagnosis: Last Documented On 4 10:18AM By Lilli MAK ; [facility] Venlafaxine HCl ER 225 MG Oral Tablet Extended R elease 24 Hour 10/23/2023 Provider: Diagnosis: Last Documented On 4 10:18AM By Lilli MAK ; [facility] Pregabalin 200 MG Oral Capsule 10/08/2023 Provider: FELISHA SENIOR Diagnosis: Fibromyalgia TAKE 1 CAPSULE BY MOUTH TWICE DAILY Last Documented On 4 1:51PM By FELISHA SENIOR ; [facility] Omeprazole 40 MG Oral Capsule Delayed Release 08/11/20 Provider: Diagnosis: Last Documented On 4 10:17AM By Lilli MAK ; [facility] Lisinopril 40 MG Oral Tablet 04/11/2023 Provider: REFUGIO AMARO MD Diagnosis: Last Documented On 3 10:40AM By Lilli MAK ; [facility] Famotidine 20 MG Oral Tablet 01/23/2023 Provider: Diagnosis: Last Documented On 02/05/2023 4:01PM By Lilli MAK ; [facility] ARIPiprazole 2 MG Oral Tablet 01/09/2023 Provider: Diagnosis: Last Documented On 02/05/2023 4:04PM By Lilli MAK ; [facility] busPIRone HCl 15 MG Oral Tablet 09/20/2022 Provider: Diagnosis: Last Documented On 02/05/2023 4:05PM By Lilli MAK ; [facility] NIFEdipine ER 30 MG Oral Tab let Extended Release 24 Hour 05/04/2022 Provider: REFUGIO AMARO MD Diagnosis: Last Documented On 05/09/2022 3:25PM By Lilli MAK ; [facility] Metoprolol Succinate ER 200M G Oral Tablet Extended Release 24 Hour 10/03/2018 Provider: Diagnosis: Last Documented On 9 3:00PM By VENKAT MAK ; [facility] Medications Administered Includes: Administered Medications from this encounter No Administered Medications Recorded Results Includes: Results discussed during this encounter No Results Recorded For Specified Dates History of Present Illness Includes: History of Present Illness from this encounter No History of Present Illness Recorded Social History Description Last Updated Tobacco non-user 11/07/2023 Last Documented On 4 2:03PM ; [facility] Alcohol 07/31/2023 Last Documented On 4 2:03PM ; [facility] Consuming 5 or more drinks per day None 07/31/2023 Last Documented On 4 2:03PM ; [facility] Current nonsmoker 07/31/2023 Last Documented On 4 2:03PM ; [facility] Drug use 07/31/2023 Last Documented On 4 2:03PM ; [facility] Lives with spouse 07/31/2023 Last Documented On 4 2:03PM ; [facility] Non-smoker 07/31/2023 Last Documented On 4 2:03PM ; [facility] Number of times used recreat ional drug/ prescription drug for nonmedical reason. None 07/31/2023 Last Documented On 4 2:03PM ; [facility] Smoking status : Never smoker 08/07/2019 Last Documented On 4 2:03PM ; [facility] Currently 10/03/2018 Last Documented On 4 2:03PM ; [facility] Medical History Includes: Medical History addressed during this encounter Description Last Updated Reviewed and Unchanged 10/10/2019 Last Documented On 4 2:03PM ; [facility] Currently wearing eyeglasses 10/03/2018 Last Documented On 4 2:03PM ; [facility] Previously 3 time(s) 10/03/2018 Last Documented On 4 2:03PM ; [facility] History of arthritis 10/03/2018 Last Documented On 4 2:03PM ; [facility] History of cancer 10/03/2018 Last Documented On 4 2:03PM ; [facility] History of hypertension 10/03/2018 Last Documented On 4 2:03PM ; [facility] Family History Includes: Family History [...] Last Documented On 4 8:53AM ; [facility] Encounters Encounter Provider Location Date Check-In Time Check-Out Time Diagnosis RX ISSUE/REFILL FELISHA HERRERA-TAMIKO 12/14/2023 2:04PM 11:59PM Insurance Includes: Active Insurance Policies Plan Name Member ID Group # Subscriber Relationship Effect nieves Dates 1 - [facility] [id number] KATHY Sanchez Clinical Notes Includes: Clinical Notes from this encounter * Progress note Date Encounter Last Documented by 12/14/2023 RX ISSUE/REFILL Last documented on 12/17/2023; 2:39 PM, FELISHA GIBSON ANP-; [facility] Active Problems & Conditions [...]
--- OUTSIDE RECORDS SUMMARY | 2024-12-09 22:08 | XMS_ITS | Clinical Summary ---
Author Organization [facility] Address [address] [place] [address] Phone Care Team Providers Care Plastic Eye Technician Name Role Phone LEILANI MABRY, NILESH Primary Care Provider [phone] Reason for Visit and Chief Complaint RX ISSUE/REFILL Problems Includes: Problems addressed during this encounter and other active Problems All Visits Onset Date Resolved Date Provider Condition S tatus Chronic Pain Syndrome 07/31/2023 NURY ECHAVARRIA PMHNP Active Last Documented On 3 1:32PM ; [facility] Plan of Treatment No Plan of Treatment [...] 4 2:31PM By FELISHA HERRERA-BC ; [facility] Hysingla ER 20 MG Oral Table t ER 24 Hour Abuse-Deterrent 01/21/2024 Provider: FELISHA FREEMAN ANP-BC Diagnosis: Spinal stenosis, lumbar region with neurogenic claudication 1 tablet q 24 hours Last Documented On 4 2:31PM By FELISHA SENIOR ; [facility] oxyCODONE-Acetaminophen 10-325 MG Oral Tablet 05/14/20 24 Provider: Diagnosis: Last Documented On 02/01/2024 8:52AM By Lilli MAK ; [facility] traZODone HCl 100 MG Oral Tablet 11/02/2023 Provider : Diagnosis: Last Documented On 4 10:13AM By Lilli MAK ; [facility] Cyclobenzaprine HCl 10 MG Oral Tablet 10/29/2023 Pro vider: REFUGIO AMARO MD Diagnosis: Last Documented On 4 10:15AM By Lilli MAK ; [facility] Ketoconazole 2% External Cream 10/29/2023 Provider: REFUGIO AMARO MD Diagnosis: Last Documented On 4 10:15AM By Lilli MAK ; [facility] hydrOXYzine HCl 50 MG Oral Tablet 10/26/2023 Provide r: Diagnosis: Last Documented On 4 10:16AM By Lilli MAK ; [facility] Anastrozole 1 MG Oral Tablet 10/24/2023 Provider: Diagnosis: Last Documented On 4 10:16AM By Lilli MAK ; [facility] FeroSul 325 (65 Fe) MG Oral Tablet 10/24/2023 Provid er: Diagnosis: Last Documented On 4 10:18AM By Lilli MAK ; [facility] Venlafaxine HCl ER 225 MG Oral Tablet Extended R elease 24 Hour 10/23/2023 Provider: Diagnosis: Last Documented On 4 10:18AM By Lilli MAK ; [facility] Pregabalin 200 MG Oral Capsule 10/08/2023 Provider: FELISHA SENIOR Diagnosis: Fibromyalgia TAKE 1 CAPSULE BY MOUTH TWICE DAILY Last Documented On 4 1:51PM By FELISHA SENIOR ; [facility] Omeprazole 40 MG Oral Capsule Delayed Release 08/11/20 Provider: Diagnosis: Last Documented On 4 10:17AM By Lilli MAK ; [facility] Lisinopril 40 MG Oral Tablet 04/11/2023 Provider: REFUGIO AMARO MD Diagnosis: Last Documented On 3 10:40AM By Lilli MAK ; [facility] Famotidine 20 MG Oral Tablet 01/23/2023 Provider: Diagnosis: Last Documented On 02/05/2023 4:01PM By Lilli MAK ; [facility] ARIPiprazole 2 MG Oral Tablet 01/09/2023 Provider: Diagnosis: Last Documented On 02/05/2023 4:04PM By Lilli MAK ; [facility] busPIRone HCl 15 MG Oral Tablet 09/20/2022 Provider: Diagnosis: Last Documented On 02/05/2023 4:05PM By Lilli MAK ; [facility] NIFEdipine ER 30 MG Oral Tab let Extended Release 24 Hour 05/04/2022 Provider: REFUGIO AMARO MD Diagnosis: Last Documented On 05/09/2022 3:25PM By Lilli MAK ; [facility] Metoprolol Succinate ER 200M G Oral Tablet Extended Release 24 Hour 10/03/2018 Provider: Diagnosis: Last Documented On 9 3:00PM By VENKAT MAK ; [facility] Medications Administered Includes: Administered Medications from this encounter No Administered Medications Recorded Results Includes: Results discussed during this encounter No Results Recorded For Specified Dates History of Present Illness Includes: History of Present Illness from this encounter No History of Present Illness Recorded Social History Description Last Updated Tobacco non-user 11/07/2023 Last Documented On 4 1:35PM ; [facility] Alcohol 07/31/2023 Last Documented On 4 1:35PM ; [facility] Consuming 5 or more drinks per day None 07/31/2023 Last Documented On 4 1:35PM ; [facility] Current nonsmoker 07/31/2023 Last Documented On 4 1:35PM ; [facility] Drug use 07/31/2023 Last Documented On 4 1:35PM ; [facility] Lives with spouse 07/31/2023 Last Documented On 4 1:35PM ; [facility] Non-smoker 07/31/2023 Last Documented On 4 1:35PM ; [facility] Number of times used recreat ional drug/ prescription drug for nonmedical reason. None 07/31/2023 Last Documented On 4 1:35PM ; [facility] Smoking status : Never smoker 08/07/2019 Last Documented On 4 1:35PM ; [facility] Currently 10/03/2018 Last Documented On 4 1:35PM ; [facility] Medical History Includes: Medical History addressed during this encounter Description Last Updated Reviewed and Unchanged 10/10/2019 Last Documented On 4 1:35PM ; [facility] Currently wearing eyeglasses 10/03/2018 Last Documented On 4 1:35PM ; [facility] Previously 3 time(s) 10/03/2018 Last Documented On 4 1:35PM ; [facility] History of arthritis 10/03/2018 Last Documented On 4 1:35PM ; [facility] History of cancer 10/03/2018 Last Documented On 4 1:35PM ; [facility] History of hypertension 10/03/2018 Last Documented On 4 1:35PM ; [facility] Family History Includes: Family History [...] Last Documented On 4 8:53AM ; [facility] Encounters Encounter Provider Location Date Check-In Time Check-Out Time Diagnosis RX ISSUE/REFILL FELISHA HERRERA-TAMIKO 01/18/2024 1:35PM 11:59PM Insurance Includes: Active Insurance Policies Plan Name Member ID Group # Subscriber Relationship Effect nieves Dates 1 - [facility] [id number] KATHY Sanchez Clinical Notes Includes: Clinical Notes from this encounter * Progress note Date Encounter Last Documented by 01/18/2024 RX ISSUE/REFILL Last documented on 01/21/2024; 2:27 PM, FELISHA GIBSON ANP-; [facility] Active Problems & [...]
--- OUTSIDE RECORDS SUMMARY | 2024-12-09 22:08 | XMS_ITS | Clinical Summary ---
Author Organization [facility] Address [address] [place] [address] Phone Care Team Providers Care Spaghetti Press Helper Name Role Phone LEILANI MABRY, NILESH Primary Care Provider [phone] Reason for Visit and Chief Complaint The Chief Complaint is: 1 MO FU Problems Includes: Problems addressed during this encounter and other active Problems Current Visit Onset Date Resolved Date Provider Charla jones Status Chronic Pain Syndrome 07/31/2023 HARLEEN COULTER PMHNP Active Last Documented On 3 1:32PM ; [facility] Plan of Treatment Education and Decision Aids were provided during visit for: Pill Count: 25 HYSINGLA Last Documented On 4 8:54AM ; [facility] Pill Count: two HYSINGLA Last Documented On 4 9:14AM ; [facility] Pill Count: HYDROCODONE ~out of medication Last Documented On 4 9:14AM ; [facility] Assessments Includes: Assessments from this encounter Findings - Systemic lupus erythematosus [M32.9 - Systemic lupus erythematosus, unspecified] - Last Documented On 02/01/2024 9:17AM ; [facility] - Sacroiliitis [M46.1 - Sacroiliitis, not elsewhere classified] - Last Documented On 02/01/2024 9:17AM ; [facility] - Lumbar spondylosis with radiculopathy [M47.26 - Other spondylosis with radiculopathy, lumbar region] - Last Documented On 02/01/2024 9:17AM ; [facility] - Lumbar stenosis with neurogenic claudication [M48.062 - Spinal stenosis, lumbar region with neurogenic claudication] - Last Documented On 02/01/2024 9:17AM ; [facility] - Fibromyalgia [M79.7 - Fibromyalgia] - Last Documented On 02/01/2024 9:17AM ; [facility] - Chronic pain syndrome [G89.4 - Chronic pain syndrome] - Last Documented On 02/01/2024 9:17AM ; [facility] - shelter use of opiate analgesic [Z79.891 - terminal makeup operator (current) use of opiate analgesic] - Last Documented On 02/01/2024 9:17AM ; [facility] Instructions Includes: Instructions from this encounter Education and Decision Aids were provided during visit for: Pill Count: 25 HYSINGLA Last Documented On 8:54AM ; [facility] Pill Count: two HYSINGLA Last Documented On 9:14AM ; [facility] Pill Count: HYDROCODONE ~out of medication Last Documented On 9:14AM ; [facility] Medical Equipment - Implanted Devices Includes: Current Devices No Medical Equipment Recorded Medications Includes: Medications discussed during this encounter and other current Medications Current Medications (continue as prescribed) Narcan 4 MG/0.1ML Nasal Liquid 01/21/2024 Provider: FELISHA SENIOR Diagnosis: Spinal stenosis, lumbar region with neurogenic claudication as directed Last Documented On 4 2:31PM By FELISHA SENIOR ; [facility] Hysingla ER 20 MG Oral Table t ER 24 Hour Abuse-Deterrent 01/21/2024 Provider: FELISHA SENIOR Diagnosis: Spinal stenosis, lumbar region with neurogenic claudication 1 tablet q 24 hours Last Documented On 4 2:31PM By FELISHA SENIOR ; [facility] oxyCODONE-Acetaminophen 10-325 MG Oral Tablet 01/15/20 Provider: Diagnosis: Last Documented On 02/01/2024 8:52AM By Lilli MAK ; [facility] traZODone HCl 100 MG Oral Tablet 11/02/2023 Provider : Diagnosis: Last Documented On 4 10:13AM By Lilli MAK ; [facility] Cyclobenzaprine HCl 10 MG Oral Tablet 10/29/2023 Pro vider: REFUGIO AMARO MD Diagnosis: Last Documented On 4 10:15AM By Lilli MAK ; [facility] Ketoconazole 2% External Cream 10/29/2023 Provider: REFUGIO AMARO MD Diagnosis: Last Documented On 4 10:15AM By Lilli MAK ; [facility] hydrOXYzine HCl 50 MG Oral Tablet 10/26/2023 Provide r: Diagnosis: Last Documented On 4 10:16AM By Lilli MAK ; [facility] Anastrozole 1 MG Oral Tablet 10/24/2023 Provider: Diagnosis: Last Documented On 4 10:16AM By Lilli MAK ; [facility] FeroSul 325 (65 Fe) MG Oral Tablet 10/24/2023 Provid er: Diagnosis: Last Documented On 4 10:18AM By Lilli MAK ; [facility] Venlafaxine HCl ER 225 MG Oral Tablet Extended R elease 24 Hour 10/23/2023 Provider: Diagnosis: Last Documented On 4 10:18AM By Lilli MAK ; [facility] Pregabalin 200 MG Oral Capsule 10/08/2023 Provider: FELISHA HERRERA- Diagnosis: Fibromyalgia TAKE 1 CAPSULE BY MOUTH TWICE DAILY Last Documented On 4 1:51PM By FELIHSA SENIOR ; [facility] Omeprazole 40 MG Oral Capsule Delayed Release 08/11/20 Provider: Diagnosis: Last Documented On 4 10:17AM By Lilli MAK ; [facility] Lisinopril 40 MG Oral Tablet 04/11/2023 Provider: REFUGIO AMARO MD Diagnosis: Last Documented On 3 10:40AM By Lilli MAK ; [facility] Famotidine 20 MG Oral Tablet 01/23/2023 Provider: Diagnosis: Last Documented On 02/05/2023 4:01PM By Lilli MAK ; [facility] ARIPiprazole 2 MG Oral Tablet 01/09/2023 Provider: Diagnosis: Last Documented On 02/05/2023 4:04PM By Lilli MAK ; [facility] busPIRone HCl 15 MG Oral Tablet 09/20/2022 Provider: Diagnosis: Last Documented On 02/05/2023 4:05PM By Lilli MAK ; [facility] NIFEdipine ER 30 MG Oral Tab let Extended Release 24 Hour 05/04/2022 Provider: REFUGIO AMARO MD Diagnosis: Last Documented On 05/09/2022 3:25PM By Lilli MAK ; [facility] Metoprolol Succinate ER 200M G Oral Tablet Extended Release 24 Hour 10/03/2018 Provider: Diagnosis: Last Documented On 9 3:00PM By VENKAT MAK ; [facility] Medications Administered Includes: Administered Medications from this encounter No Administered Medications Recorded Vital Signs Includes: Vital Signs from this encounter Vital Name 02/01/2024 08:50A Temp-Oral (F) 98.6 Height (in) 65 Weight (lb) 215 Body Mass Index 35.8 Body Surface Area 2 Pain Level 8 Last Documented: On 02/01/2024 8:51AM ; [facility] Results Includes: Results discussed during this encounter [...] and a report back to the [employer] sales utility representative that she was getting approximate 75% [...] psychological evaluation and meeting with the [employer] sales utility representative. Psychological evaluation revealed no barriers to [...] will need a refill of hydrocodone today. [place] BOWLING PIN REFINISHER appropriate. Last UDS appropriate, this will be [...] simulation trial under fluoroscopic guidance. Of note, [place] prescription monitoring database was reviewed and found [...] UDS appropriate. We will repeat this today. [facility] [place] appropriate. She has exhibited no signs of [...] allows her to maintain function levels. [place] BOWLING PIN REFINISHER is appropriate. UDS was appropriate Past note: [...] for visit: Provider: Privacy of provider's office. [address] [place] [id number] Patient: Patient personal setting Total time spent with patient via telecommunication 15 minutes Social History Description Last Updated Tobacco non-user 11/07/2023 Last Documented On 4 8:46AM ; [facility] Alcohol 07/31/2023 Last Documented On 4 8:46AM ; [facility] Consuming 5 or more drinks per day None 07/31/2023 Last Documented On 4 8:46AM ; [facility] Current nonsmoker 07/31/2023 Last Documented On 4 8:46AM ; [facility] Drug use 07/31/2023 Last Documented On 4 8:46AM ; [facility] Lives with spouse 07/31/2023 Last Documented On 4 8:46AM ; [facility] Non-smoker 07/31/2023 Last Documented On 4 8:46AM ; [facility] Number of times used recreat ional drug/ prescription drug for nonmedical reason. None 07/31/2023 Last Documented On 4 8:46AM ; [facility] Smoking status : Never smoker 08/07/2019 Last Documented On 4 8:46AM ; [facility] Currently 10/03/2018 Last Documented On 4 8:46AM ; [facility] Procedures and Surgical History Includes: Procedures from this encounter Procedures Code Diagnosis Performing Provider Service Location Service Date CLINIC VISIT (VIA [employer]) [id number] Spinal stenosis, lumbar region with neurogenic claudication, Other spondylosis with radiculopathy, lumbar region, Fibromyalgia, terminal makeup operator (current) use of opiate analgesic FELISHA ROTHMAN ANP-[facility] 02/01/2024 Last Documented On 4 5:46PM ; [facility] use of tobacco assessment performed 1000F Last Documented On 4 8:52AM ; [facility] review of medications documented 1160F Last Documented On 4 8:52AM ; [facility] Clinical summary provided to patient via portal/mailed. ~ Patient understands and agrees with treatment plan. Questions answered Last Documented On 4 9:13AM ; [facility] Medical History Includes: Medical History addressed during this encounter Description Last Updated Reviewed and Unchanged 10/10/2019 Last Documented On 4 8:46AM ; [facility] Currently wearing eyeglasses 10/03/2018 Last Documented On 4 8:46AM ; [facility] Previously 3 time(s) 10/03/2018 Last Documented On 4 8:46AM ; [facility] History of arthritis 10/03/2018 Last Documented On 4 8:46AM ; [facility] History of cancer 10/03/2018 Last Documented On 4 8:46AM ; [facility] History of hypertension 10/03/2018 Last Documented On 4 8:46AM ; [facility] Family History Includes: Family History [...] Active Last Documented On 4 8:53AM ; [facility] Encounters Encounter Provider Location Date Check-In Time Check-Out Time Diagnosis [facility] FELISHA SENIOR [facility] 02/01/20 24 9:00AM 9:23AM Systemic Lupus Erythematosus,Chr onic Pain Syndrome,Sacroili itis,Fibromyalgia ,Spinal Stenosis Lumbar with Neurogenic Claudication,Spon dylosis with Radiculopathy Lumbar Region,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 Use of Opiate Analgesic Insurance Includes: Active Insurance Policies Plan Name Member ID Group # Subscriber Relationship Effect nieves Dates 1 - [place] [employer] [facility] [id number] KATHY MENDENHALL Self Clinical Notes Includes: Clinical Notes from this encounter * Progress note Date Encounter Last Documented by 02/01/2024 TELEHEALTH Last documented on 02/01/2024; 9:17 AM, FELISHA SENIOR; [facility] Active Problems & [...] and a report back to the [employer] sales utility representative that she was getting approximate 75% [...] psychological evaluation and meeting with the [employer] sales utility representative. Psychological evaluation revealed no barriers to [...] will need a refill of hydrocodone today. [facility] [place] appropriate. Last UDS appropriate, this will be [...] simulation trial under fluoroscopic guidance. Of note, [place] prescription monitoring database was reviewed and found [...] UDS appropriate. We will repeat this today. [facility] [place] appropriate. She has exhibited no signs of [...] Medication allows her to maintain function levels. [place] BOWLING PIN REFINISHER is appropriate. UDS was appropriate Past note: [...] syndrome [G89.4 - Chronic pain syndrome] - terminal makeup operator use of opiate analgesic [Z79.891 - shelter (current) use of opiate analgesic] Therapy - [...] for visit: Provider: Privacy of provider's office. [address] [place] [id number] Patient: Patient personal setting Total time spent with patient via telecommunication 15 minutes
--- OUTSIDE RECORDS SUMMARY | 2024-12-09 22:08 | XMS_ITS | Encounter Summary ---
Author Organization [facility] Address [address] [place] [address] Care Team Providers Care Station Manager Name Role Phone Key Tolliver MD Primary Care Provider [phone] Reason for Visit * Reason Comments Medication Refill Encounter Details Date Type Department Care Team ([facility] Contact Info) Description 05/11/2020 [facility] [id number] [facility] [address] [place] [address] Rodolfo Truong MD [address] 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 Gender Identity Not on file Sexual Orientation [...] Description 04/14/2025 11:30 AM CDT Office Visit [facility] Oncology and Hematology - [address] [place] [address] Evan Willis MD [address] [facility] [address] [place] [address] 08/17/2025 1:00 PM AUTOMOTIVE INSTRUCTOR Office Visit [facility] Plastic Surgery at the [facility] [address] [place] [phone] Rodolfo Truong MD [address] [facility] [address] [place], [place] [id number] documented as of this encounter Visit Diagnoses Diagnosis Malignant neoplasm of upper-outer quadrant of left breast in female, estrogen receptor positive (CMS/HCC) documented in this encounter Care Teams Station Manager Relationship Specialty Start Date End Date Key Tolliver MD [address] [place] [address] PCP - General Internal Medicine 11/05/18 documented as of this encounter
--- OUTSIDE RECORDS SUMMARY | 2024-12-09 22:08 | XMS_ITS | CONTINUITY OF CARE DOCUMENT ---
Author Name elie delgadillo Address Unknown Organization [facility] Address [address] [place] [address] Phone [phone] Care Team Providers Care Track Subway Repair Supervisor Name Role Phone Charles Kingston MD Unavailable [phone] RIGOBERTO SNOWDEN DPM Unavailable REFUGIO AMARO MD Unavailable [phone] PROBLEMS Condition Status Date Provider Notes Obesity active Josh Agarwal DYSPNEA ON EXERTION completed - Charles Kingston MD Stage IIIB ER pos Invasive ductal carcinoma, left breast active Clay Byrne MD COPD active Charles Kingston MD Hypertension active Charles Kingston MD Abnormal EKG active Josh Agarwal Shortness of breath active Charles Kingston MD Exposure to COVID-19 coronavirus active Charles Kingston MD Lupus active Charles Kingston MD Pulmonary hypertension active Charles Dsouza Hypothyroidism active Josh Agarwal Osteoporosis, drug-induced active Clay hyatt MD Family History of Hypertension: completed - Charles Kingston MD Family History of Hyperlipidemia: completed - Charles Kingston MD Family History of CVA or Stroke: completed - Charles Kingston MD SINUS TACHYCARDIA active Brina Blunt CAD-09/13 CATH NEG EF 60 completed - Charles Hernandez i, MD FAMILY HISTORY OF ISCHEMIC HEART DISEASE completed - Charles Kingston MD CHEST PAIN-08/12 STRESS ECHO NEG completed - Charles Kingston MD ENCOUNTERS Date Type Provider Location Encounter Diag nosis - In-person encounter Office Visit Charles Kingston MD [facility] Shortness of breath - In-person encounter Office Visit Charles Kingston MD [facility] - In-person encounter Office Visit Charles Kingston MD [facility] - In-person encounter Office Visit Charles Kingston MD [facility] Exposure to COVID-19 coronavirus - In-person encounter Office Visit Charles Kingston MD [facility] CHEST PAIN-08/12 STRESS ECHO NEGDYSPNEA ON EXERTIONAbnormal EKG - In-person encounter Office Visit Charles Kingston MD [facility] Pulmonary hypertensionLupusHypertension - In-person encounter Office Visit Charles Kingston MD [facility] FAMILY HISTORY OF ISCHEMIC HEART DISEASEFamily History of CVA or Stroke:COPDHypothyroidism - In-person encounter Office Visit Clay Byrne MD [facility] - In-person encounter Office Visit Charles Kingston MD [facility] - In-person encounter Office Visit Charles Kingston MD [facility] CAD-09/13 CATH NEG EF 60Family History of Hyperlipidemia:Family History of Hypertension: - In-person encounter Office Visit Clay Byrne MD [facility] Osteoporosis, drug-inducedStage IIIB ER pos Invasive ductal carcinoma, left breast - In-person encounter Office Visit Charles Kingston MD [facility] - In-person encounter Office Visit Charles Kingston MD [facility] SINUS TACHYCARDIA - In-person encounter Office Visit Charles Kingston MD [facility] VITAL SIGNS Date Observation Value Provider [...] Lundb erg height E&M 65 [in_i] Josh [email or web address] erg Body Mass Index (Ratio) 38.60 kg/m2 [...] Phelps l blood pressure, resting Yes [facility] Body Mass Index (Ratio) 34.28 kg/m2 Artur [facility] blood pressure, diastolic 90 mm[Hg] Da ton [place] blood pressure, systolic 158 mm[Hg] Dac ia [...] [employer] 3.5-5.2 sodium, serum 142 mmol/L [employer] [phone]/02/ 17 urea nitrogen/creatinine ratio, serum 18 [employer] [...] Not Estab. platelet count 276 X10E3/UL [employer] [phone]/02/ 17 red blood cell distribution width 14.0 [...] 3.4-10.8 LDL cholesterol, serum 164.8 mg/dL Josh [facility] hemoglobin A1C, blood, as % of total [...] as percent of blood leukocytes 0.0 % [facility] - red blood cell (erythrocyte) count, per [...] as percent of blood leukocytes 34.3 % [facility] - Absolute Lymphocytes 1.6 CELLS/UL [employer] 0.9 [...] 1.1 B-type natriuretic peptide 11.7 pg/mL Frank Satrkey alanine aminotransferase (SGPT), serum 28 1/L [facility] aspartate aminotransferase (SGOT), serum 18 1/L [facility] creatinine, serum 1.10 mg/dL [facility] urea nitrogen, blood 13.6 mg/dL [facility] carbon dioxide, serum, total 27 mmol/L [facility] chloride, serum 101 mmol/L [facility] potassium, serum 3.7 mmol/L [facility] sodium, serum 138 mmol/L [facility] platelet count 325 10*3/uL Naya [...] once a day - 12/02 Mackenzie Porter GEAR REPAIR SUPERVISOR NORCO 10-325 MG ORAL TABLET completed TAKE DIRECTED - 04/11 Hellen Lezama FERROUS GLUCONATE 325 (36 FE) MG TABS completed TAKE ONE TAB DAILY - 04/11 Hellen Lezama NYSTATIN [id number] UNIT/ML MOUTH/THROAT SUSPENSION completed TAKE DIRECTED - [...] a day 09/04 - 12/02 Mackenzie Ventimiglia [facility] VITAMIN D (ERGOCALCIFEROL) 82293 UNIT ORAL CAPSULE completed 2 caps once [...] history of marijuana use no Mackenzie Ventimiglia [facility] drug use no Mackenzie Ventimig tonny [facility] alcohol use no Mackenzie Ventimig tonny [facility] smoking status Never smoker Mackenzie Ventim iglia [facility] social history reviewed E&M i ewed - [...] per day none [facility] MENTAL STATUS Date Observation Value Provider assessment of judgme nt and insight E&M Alert and oriented to time, place and person. Mood and affect are normal. Brina Devi assessment of judgme nt and insight E&M Alert and oriented to time, place and person. Mood and affect are normal. 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 DEVELOPER HISTORY Family Member Condition First Female Cousin Family History of Br east Cancer Uncle Family History of Ot her Cancer Father Family History of Mi graine: Father Family History of Hy pertension: Father Family History of Hy perlipidemia: Father Family History of CV A or Stroke: Father Family History of Ar thritis: INSURANCE PROVIDERS Payer name Policy type / Coverage type Jerrell red green party ID [employer] MEDICAID (2) Medicaid [id number] ADVANCE DIRECTIVES Name Date DISCUSSED - NO DECISION MADE TREATMENT PLAN Date Name Performer [id number],C, B P today: 158/94 P rior BP: [...] 1 tablet once a day Leisa Caceres [id number],S, W eight loss advised Leisa Caceres [id number],C, H er updated medication list for this problem includes: Synthroid 50 Mcg Tablet (Levothyroxine) ..... Take 1 tablet once a day Leisa Caceres [id number],C,S till very dyspneic. CT of the chest showed COPD, but no other findings. Echo showed pulmonary hypertension (systolic in the 50s). Renal artery duplex was negative. In view of her continued symptoms and finding of pulmonary hypertension, will proceed to R/L cardiac cath. ProBNP was normal. Leisa Caceres [id number],C,S till very dyspneic. CT of the chest showed COPD, but no other findings. Echo showed pulmonary hypertension (systolic in the 50s). Renal artery duplex was negative. In view of her continued symptoms and finding of pulmonary hypertension, will proceed to R/L cardiac cath. ProBNP was normal. Leisa Caceres [id number],C,Weight loss a dvised Leisa Caceres [id number],C, P FT's showed mild obstructive disease. I recommend pulmonary consultation. Charles Kingston MD [id number],W, For unknown reason she stopped her metoprolol [...] tablet once a day Charles Kingston MD [id number],N,P t had COVID a few months ago. [...] MD Cardiology:weight loss encourage d Mackenzie Porter [facility] Cardiology:reported on previous CT chest w ill refer to pulmonary Mackenziemadelaine Porter [facility] Cardiology:BP contro lled c ontinue present medication regimen H er updated medication list for this problem includes: Metoprolol Succinate 100 Mg Tablet Extended Release 24 Hr (Metoprolol succinate) ..... Take 1 tablet by mouth every day Lisinopril 40 Mg Tablet (Lisinopril) ..... 1 tablet once a day Mackenzie Porter [facility] Cardiology:only mild per [facility] w ill update echo Mackenziemadelaine Porter [facility] Cardiology: B P today: 158/94 P rior [...] encouraged her to try to lose weight. [facility] Telehealth:Continues to f/u with oncology. [facility] Telehealth:She was t old her HR was high at her oncologist's office but denies chest pain, SOB or palpitations. Continues on Toprol 200mg daily. [facility] Telehealth:BP today (provided by the pt): 127/88 P rior BP: 142/78 (03/12/2019) Her updated medication list for this problem includes: Lisinopril 40 Mg Oral Tablet (Lisinopril) ..... One tab. daily Metoprolol Succinate Er 200 Mg Oral Tablet Extended Release 24 Hour (Metoprolol succinate) ..... One tab. daily [facility] Cardiology follow up :BP today: 142/78 P rior BP: 158/90 (09/25/2018) Her updated medication list for this problem includes: Lisinopril 40 Mg Oral Tablet (Lisinopril) ..... One tab. daily Metoprolol Succinate Er 200 Mg Oral Tablet Extended Release 24 Hour (Metoprolol succinate) ..... One tab. daily [facility] Cardiology follow up :Preop EKG was performed and T-wave inversions were noted. Review of her chart shows these are not new changes. She had a normal cardiac cath in 2016. [facility] Cardiology follow up :Pt is a candidate for shoulder surgery. She jt not have chest pain or SOB. Preop EKG was performed and T-wave inversions were noted. Review of her chart shows these are not new changes. She had a normal cardiac cath in 2016. She is clear for shoulder surgery. [facility] Cardiology follow up :BP today: 158/90 P rior BP: 130/90 (06/19/2016) Her updated medication list for this problem includes: Lisinopril 40 Mg Oral Tablet (Lisinopril) ..... One tab. daily Metoprolol Succinate Er 200 Mg Oral Tablet Extended Release 24 Hour (Metoprolol succinate) ..... One tab. daily [facility] Cardiology follow up :Orders: C omplete Echo (CPT-26052) F VC - 93890 (46309) F RC - 55939 (09889) D LCO - 56141 (81559) 9 9215 HIGH Complex (CPT-50155) P ulmonology (*) [facility] Cardiology follow up :Orders: E KG (CPT-16425) C omplete Echo (CPT-53675) F VC - 81578 (44622) F RC - 24740 (39581) D LCO - 20832 (96320) P ulmonology (*) [facility] Cardiology Follow up:Cardiac cat h was normal. Charles Kingston MD Cardiology Follow up :PFT's showed mild obstructive disease. I recommend pulmonary consultation. Charles Kingston MD Cardiology Follow up :Cardiac cath was normal. PFT's showed mild obstructive disease. I recommend pulmonary consultation. Charles Kingston MD Hem/Onc:As above, sh e is overdue for DEXA scan. Orders: D exa Scan (dexa) 9 9214 MOD Complex (CPT-07388) Clay Byrne MD Hem/Onc:The patient is on adjuvant hormonal therapy with montly leuprolide injections since 2012. She was intolerant tamoxifen secondary to 'passing out episodes'. She will conitnue adjuvant hormonal therapy for at least 5 years. She is overdue for a repeat DEXA scan. She will return in 4 months for follow up. Orders: S NOMED-CT: [id number] Current Medications Documented (SCT-[id number]) C BC (INCLUDES DIFF/PLT) (6399) C OMPREHENSIVE METABOLIC PANEL W/EGFR (35930) V itamin D, 25 Hydroxy (336966) 9 9214 MOD Complex (CPT-72513) Clay Byrne MD Cardiology:Continues to have the [...] Charles Kingston MD Cardiology:Orders: C omplete Echo (CPT-65368) S TR - Nuclear (45600) Charles Kingston MD Hem/Onc:Refer back t o Dr. Kingston for evaluation of chest pain. O rders: 9 9245 HIGH Complex (CPT-16745) Clay Byrne MD Hem/Onc:Repeat DEXA scan as patient is on adjuvant antihormonal therapy. Orders: D exa Scan (dexa) 9 9245 HIGH Complex (CPT-95336) Clay Byrne MD Hem/Onc:The patient is status [...] induced osteoporosis. Orders: 9 9245 HIGH Complex (CPT-13765) Clay Byrne MD Date Name Pulmonology Pulmonology Complete Echo PROTHROMBIN TIME WIT H INR LIPID PANEL CBC (INCLUDES DIFF/P LT) BASIC METABOLIC PANE L W/EGFR Cardiac Cath - L/R - GC BASIC METABOLIC PANE L W/EGFR PROBNP, N TERMINAL CT Chest with contra st Renal Artery Duplex Complete Echo DLCO - 16974 FRC - 14229 FVC - 72035 Complete Echo Vitamin D, 25 Hydrox y COMPREHENSIVE METABO LIC PANEL W/EGFR CBC (INCLUDES DIFF/P LT) Dexa Scan PROTHROMBIN TIME WIT H INR CBC (INCLUDES DIFF/P LT) LIPID PANEL BASIC METABOLIC PANE L W/EGFR Cardiac Cath - Left - GC DLCO - 38880 FRC - 93998 FVC - 25888 STR - Nuclear Complete Echo Dexa Scan B TYPE NATRIURETIC P EPTIDE (BNP) Mobile Cardiac Tele Complete Echo Cardiac Cath - GC HISTORY OF PROCEDURES Procedure Date Procedure Name Provider Procedure Notes S tatus Complex e/m visit add on Charles Kingston MD completed EKG Charles Kingston MD completed EKG Charles Kingston MD completed FVC / MVV with bronchodilator - 25053 Charles Kingston MD completed FRC - 36936 Charles Kingston MD completed SpO2 w/o 6min walk/titration Charles Kingston MD completed DLCO - 67166 Charles Kingston MD complete d EKG Charles Kingston MD completed SNOMED-CT: 715006592 358997 Current Medications Documented Charles Kingston MD completed SNOMED-CT: 168286145 651383 Current Medications Documented Clay Byrne MD completed FVC - 86620 Charles Kingston MD completed FRC - 20898 Charles Kingston MD completed DLCO - 76344 Charles Kingston MD complete d SNOMED-CT: 841108416 900571 Current Medications Documented Charles Kingston MD completed SNOMED-CT: 21073623 Physical Exam, Performed: Pulse Exam of Foot Charles Kingston MD completed EKG Charles Kingston MD completed SNOMED-CT: 704672842 028107 Current Medications Documented Charles Kingston MD completed SNOMED-CT: 422623281 321972 Current Medications Documented Clay Byrne MD completed EKG Charles Kingston MD completed
--- OUTSIDE RECORDS SUMMARY | 2024-12-09 22:08 | XMS_ITS | Encounter Summary ---
Author Organization [facility] Address [address] [place] [address] Care Team Providers Care Automotive Worker Foreman Name Role Phone Key Tolliver MD Primary Care Provider [phone] Reason for Visit * Reason Comments Medication Refill Encounter Details Date Type Department Care Team ([facility] Contact Info) Description 11/05/2019 Refill [facility] Plastic Surgery and Burn [address] [address] Rodolfo Truong MD [address] [place] [address] Social History Tobacco Use Types Packs/Day Years Used Date Smoking Tobacco: Never Smokeless Tobacco: Never Alcohol Use Standard Drinks/Week Comments No 0 (1 standard drink = 0.6 oz pur e alcohol) Comments No Sex and Gender Information Value Date Recorded Sex Assigned at Not on file Legal Sex Female 1:52 PM MANAGER FLOOR Gender Identity Not on file Sexual Orientation Not on file documented as of this encounter Plan of Treatment Upcoming Encounters Date Type Department Care Team (Late Contact Info) Description 04/14/2025 11:30 AM CDT Office Visit [facility] Oncology and Hematology - [place] [address] [facility] [address] [place] [address] Evan Willis MD [address] [place] [address] 08/17/2025 1:00 PM MANAGER FLOOR Office Visit [facility] Pl[facility] Surgery at the [facility] [address] [facility] [address] [place] [address] Rodolfo Truong MD [address] [place] [address] documented as of this encounter Visit Diagnoses Not on filedocumented in this encounter Care Teams Automotive Worker Foreman Relationship Specialty Start Date End Date Key Tolliver MD [address] [place] [address] PCP - General Internal Medicine 11/05/18 documented as of this encounter
--- OUTSIDE RECORDS SUMMARY | 2024-12-09 22:09 | XMS_ITS ---
Author Organization [facility] Address [address] 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 Treatments may have been administered in another system. Lifetime Dose Tracking * Chemical Lifetime Dose Automatic Entry Manual Entr y Dose Length Product 810 mGy-cm 810 mGy-cm 0 mGy-cm Resolved Problems Problem Noted Date Diagnosed Date Resolved Date Diarrhea 05/03/2023 05/03/2023 05/31/2023 UTI (urinary tract infection) 02/02/2016 04/08/2020
--- OUTSIDE RECORDS SUMMARY | 2024-12-09 22:09 | XMS_ITS | Clinical Summary ---
Author Organization [facility] Address [address] [facility] [place] [address] Care Team Providers Care Federal Mediation Commissioner Name Role Phone Key Tolliver MD Primary Care Provider Pablo Liriano MD Unavailable [phone] Evan Willis MD Unavailable [phone] Charles Kingston MD Unavailable Source Comments [facility],non-owned Affiliates and Associated Physician Practices is amultiple site organization consisting of ambulatory clinics and hospital sitesin [place], [place] and [place]. This disclosure is being madepursuant to the Care Everywhere program and may not contain all information available regarding this patient. 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 Chest [...] - 11/26/2024 11:59 PM CDT Hospital Encounter [facility] DI[facility]ST[facility] RAD [facility] [address] [place] [address] Yandel Petersen MD Discharge Disposition: Home or Self Care 11/26/2024 11:30 AM CDT Office Visit [facility] [address] [place] [phone] Yandel Petersen MD Neck pain (Primary Dx); Sternoclavicular joint pain, right 11/26/2024 Travel 10/31/2024 10:51 AM [facility] - 10/31/2024 11:59 PM [facility] Hospital Encounter [facility] RAD [facility] [address] [place] [address] Vivien Teixeira PA-C Discharge Disposition: Home or Self Care 10/31/2024 10:30 AM [facility] Office Visit [facility] [address] [place] [phone] Vivien Teixeira PA-C Tendinopathy of right rotator cuff (Primary Dx); Chronic right shoulder pain; Pain of right clavicle; Neck pain; Adhesive capsulitis of right shoulder; S/P breast reconstruction, right 10/31/2024 Travel 10/30/2024 Orders Only [facility] [address] [place] [phone] Vivien Teixeira PA-C Right shoulder pain, unspecified chronicity 10/24/2024 Travel 10/19/2024 Refill [facility] [address] [facility], [place] [address] Jace Muller MD Refill Request 09/17/2024 11:19 AM [facility] - 09/17/2024 11:59 PM [facility] Hospital Encounter [facility] LAB OP DRAW STATION [address] [place] [phone] Discharge Disposition: Home or Self Care 09/17/2024 11:00 AM [facility] Office Visit [facility] Rhe[facility] [address] [facility] [place] [address] Ev Lowery MD Positive double stranded DNA [...] Comments Blood Pressure 135/91 09/17/2024 11:02 AM [facility] Pulse 82 09/17/2024 10:56 AM [facility] Temperature 36.3 C (97.3 F) 09/17/2024 10:56 AM [facility] Respiratory Rate 14 01/17/2024 11:17 AM CDT Oxygen Saturation 95% 03/18/2024 3:10 PM CDT Inhaled Oxygen Concentration 21% 03/21/2019 3 :09 AM CDT Weight 105.7 kg (233 lb) 09/17/2024 10:56 AM [facility] Height 165.1 cm (5' 5 ) 09/17/2024 10:56 AM [facility] Body Mass Index 38.77 09/17/2024 10:56 AM [facility] Plan of Treatment Upcoming Encounters Date Type Department Care Team (Late st Contact Info) Description 12/15/2024 1:20 PM CDT Appointment [facility] CAT SCAN [address] [place] [phone] Yandel Petersen MD [address] [place] [address] 12/15/2024 1:40 PM CDT Appointment [facility] CAT SCAN [facility] [place] [address] Yandel Petersen MD [address] [place] [address] 12/17/2024 11:15 AM CDT Office Visit [facility] [address] [place] [address], [place] [address] Yandel Petersen MD [address] [place] [address] 12/25/2024 3:00 PM CDT Office Visit [facility] - Orthopedic Surgery [address] [place] [address] Mariano Guzmán MD [address] [place] [address] 03/11/2025 11:20 AM CDT Office Visit [facility] - Rheumatology [address] [place] [address], [place] [phone] Ev Lowery MD [address] [place] [address] [place] [address] Health Maintenance Due Date Last [...] you. Interventions: Mobility General Worsening( 1:20 PM [facility]) No Lilo Kaminski, DARRON Note: Expected end date: 11/17/2019 The goal is to maintain or improve your mobility at the optimum level for you. Interventions: PAIN General No Shira Sun Note: Expected end date: 01/18/2020 Patient's pain/discomfort is manageable. Interventions: Medical Devices Implanted Type Area Brick Paving Checker Device Identifier Shelf Expiration Date Model / Serial / Lot Cmnt Bone Plc R+Ggnta 40gm Lf Grn Implanted:Qty: 1 on 10/11/2017 by Rajendra Ingram MD at [facility] Left: Knee Wan [employer] 12/01/2020 [id number] / / [id number] Description:12 BEADS IN LEFT KNEE ON VICRYL SUTURE 21 BEADS IN RIGHT KNEE ON VICRYL SUTURE Brng [id number] Vngrd Arcm Kn Ant Stab Implanted:Qty: 1 on 10/16/2017 by Rajendra Ingram MD at [facility] Left: Knee [employer] 06/09/2022 [id number] / / Brng [id number] Vngrd Arcm Kn Ant Stab Implanted:Qty: 1 on 10/16/2017 by Rajendra Ingram MD at [facility] Right: Knee [employer] 07/25/2022 [id number] / / Cmpnt Tibtry Bmt As Mx Kn Intlk Prm Lck Implanted:Qty: 1 on 10/16/2017 by Rajendra Ingram MD at [facility] Left: Knee [employer] 07/11/2027 [id number] / / Cmpnt Tibtry Bmt As Mx Kn Intlk Prm Lck Implanted:Qty: 1 on 10/16/2017 by Rajendra Ingram MD at [facility] Right: Knee [employer] 06/17/2027 [id number] / / Kam Kn Tot Rev 50% Of 2014 Implanted:Qty: 1 on 10/16/2017 by Rajendra Ingram MD at [facility] Wan [employer]omet KR2 KNEE TO T REV WAN BILL ONLY / / Cmpnt Glnd 38mm Std Glenosphere Sckt Geovany Implanted:Qty: 1 on 03/19/2019 by Pablo Liriano MD at [facility] Left: Shoulder [employer] Inc 11/01/2023 [id number] / / Description:DXTND GLENOSPHER E STD T73BF--79/22 LG Dxtend Mod Cent Epi 1 Ocampo Implanted:Qty: 1 on 03/19/2019 by Pablo Liriano MD at [facility] Left: Shoulder 01/01/2024 1307-20-101 / / Description:delta xtend mudu lar centered epiphysis Global Unite Std Stem Sz 8 Implanted:Qty: 1 on 03/19/2019 by Pablo Liriano MD at [facility] Left: Shoulder 08/02/2027 1100-08-100 / / Description:global unite por ocoat standard stem Dxtend Stand Pe Cup D38 +3mm Implanted:Qty: 1 on 03/19/2019 by Pablo Liriano MD at [facility] Left: Shoulder 1307-38-203 / / [id number] Description:Delta xtend lyudmila ral PE cup standard Sys Shld Tot Arthroplst Rev Implanted:Qty: 1 on 03/19/2019 by Pablo Liriano MD at [facility] Left: Shoulder [employer] S4 DEPUY / / Cmpnt Glnd 27mm Std Geovany Xtend Metaglene Implanted:Qty: 1 on 03/19/2019 by Pablo Liriano MD at [facility] Left: Shoulder [employer] 12/02/2023 1307-60-000 / / Description:DXTEND METAGLENE Dxtend Screw Lock D4.5x36mm Implanted:Qty: 1 on 03/19/2019 by Pablo Liriano MD at [facility] Left: Shoulder 12/02/2023 1307-90-036 / / Description:PACK ACL TISSUE FX CSTM SRG PRC DISP Screw 4.5mm 30mm Shldr Glnd Lck Geovany Implanted:Qty: 1 on 03/19/2019 by Pablo Liriano MD at [facility] Left: Shoulder [employer] 01/01/2024 1307-90-030 / / Description:DXTEND SCREW LOC K D4.1P54CU--75/22 LG 6.5mm Canellous Screw Implanted:Qty: 1 on 10/25/2020 by Anjelica Gutierres MD at [facility] Right: Ankle Wan [employer] 486-55-01 / 6.5mm Cancellous Screw Implanted:Qty: 1 on 10/25/2020 by Anjelica Gutierres MD at [facility] Right: Ankle [employer] / / Cortical Screw 2.7mm Implanted:Qty: 1 on 10/25/2020 by Anjelica Gutierres MD at [facility] Right: Ankle [employer] [id number] / / Screw 3.5mm 32mm 2.5mm Slf-Tap Sm Hex Implanted:Qty: 2 on 10/25/2020 by Anjelica Gutierres MD at [facility] Right: Ankle [employer] [id number] / / Screw 3.5mm 45mm 2.5mm Slf-Tap Sm Hex Implanted:Qty: 1 on 10/25/2020 by Anjelica Gutierres MD at [facility] Right: Ankle Wan [employer] [id number] / / Graft Bone Alfs + Dbm 1cc Algrf Pst Implanted:Qty: 1 on 10/25/2020 by Anjelica Gutierres MD at [facility] Right: Ankle Allosource 04/08/2021 [id number] / / [id number] Bsplt Glnd 30mm Rsp Shldr P2 Strl Lf Implanted:Qty: 1 on 04/26/2022 by Mariano Guzmán MD at [facility] Left: Shoulder [employer] 03/23/2028 508-32-204 / / [id number] Screw 5mm 14mm Shldr Lck Rsp Glnd Bsplt Implanted:Qty: 1 on 04/26/2022 by Mariano Guzmán MD at [facility] Left: Shoulder [employer] 03/25/2028 506-03-114 / / [id number] Screw 5mm 14mm Shldr Lck Rsp Glnd Bsplt Implanted:Qty: 1 on 04/26/2022 by Mariano Guzmán MD at [facility] Left: Shoulder [employer] 04/05/2028 506-03-114 / / [id number] Screw 5mm 30mm Shldr Lck Rsp Glnd Bsplt Implanted:Qty: 1 on 04/26/2022 by Mariano Guzmán MD at [facility] Left: Shoulder [employer] 03/13/2028 506-03-130 / / [id number] Screw 5mm 30mm Shldr Lck Rsp Glnd Bsplt Implanted:Qty: 1 on 04/26/2022 by Mariano Guzmán MD at [facility] Left: Shoulder [employer] 03/18/2028 506-03-130 / / [id number] Cmnt Bone Djo Srg Cblt 40gm Hvisc Strl Implanted:Qty: 1 on 04/26/2022 by Mariano Guzmán MD at [facility] Left: Shoulder [employer] 03/16/2023 600-15-000 / / [id number] Head Glnd 32mm Rsp Ntrl Shldr Rtn Screw Implanted:Qty: 1 on 04/26/2022 by Mariano Guzmán MD at [facility] Left: Shoulder [employer] 03/22/2028 508-32-101 / / [id number] Ins Sckt Rsp Djo Srg +4mm Hum Hxe+ Implanted:Qty: 1 on 04/26/2022 by Mariano Guzmán MD at [facility] Left: Shoulder [employer] 12/26/2026 509-01-432 / / [id number] Humeral Stem Reverse Size 8mm X 108mm Implanted:Qty: 1 on 04/26/2022 by Mariano Guzmán MD at [facility] Left: Shoulder [employer] 10/05/2027 530-08-108 / / [id number] Rstrc Cmnt Cl Ct 10mm Implanted:Qty: 1 on 04/26/2022 by Mariano Guzmán MD at [facility] Left: Shoulder [employer] 07/03/2024 415-00-100 / / [id number] Rsp Humeral Socket Insert 32mm Semi-Constrain ed Implanted:Qty: 1 on 06/14/2022 by Mariano Guzmán MD at [facility] Left: Shoulder [employer] 08/12/2026 509-01-032 / / [id number] Spcr Hum Djo Srg Rsp +8mm Mnblck Strl Lf Implanted:Qty: 1 on 06/14/2022 by Mariano Guzmán MD at [facility] Left: Shoulder [employer] 04/12/2028 510-08-000 / / [id number] Head Glnd 32mm Rsp Ntrl Shldr Rtn Screw Implanted:Qty: 1 on 06/14/2022 by Mariano Guzmán MD at [facility] Left: Shoulder [employer] 05/17/2028 508-32-101 / / [id number] Screws Implanted:Qty: 1 on 08/10/2023 by Jace Muller MD at [facility] Left: Ankle AR-8935-32 / / Description:3.0-4.0 ARTHREX VENDOR TRAY Screw Implanted:Qty: 1 on 08/10/2023 by Jace Muller MD at [facility] Left: Ankle Arthrex Inc AR-8940-34 / / Description:3.0-4.0 ARTHREX TRAY Kit Bngf 3cc Aug Inj Implanted:Qty: 1 on 01/14/2024 by Jace Muller MD at [facility] Left: Ankle LiveAction Inc 08/30/2026 [id number] / / [id number] Graft Bone Ignite 2 Mini 4cc Pwr Mx - [id number] Implanted:Qty: 1 on 01/14/2024 by Jace Muller MD at [facility] Left: Ankle LiveAction Inc 07/19/2028 [id number] / [id number] / Allosync Pure 5cc Implanted:Qty: 1 on 01/14/2024 by Jace Muller MD at [facility] Left: Ankle Arthrex Inc 08/20/2028 ABS-2010-01 / / [id number] 7.0 Screw 55 Implanted:Qty: 1 on 01/14/2024 by Jace Muller MD at [facility] Left: Ankle Arthrex Inc AR-8770-5H / / 7.0 Screw 40 Implanted:Qty: 1 on 01/14/2024 by Jace Muller MD at [facility] Left: Ankle Arthrex Inc AR-8770-40H / / Explanted Type Area Brick Paving Checker Device Identifier Shelf Expiration Date Model / Serial / Lot Cortical Screw 3.5mm Explanted:Qty: 1 on 10/25/2020 at [facility] Right: Ankle Wan [employer]omet 00-4835-036 -01 / / 4.0mm Screw Explanted:Qty: 1 on 08/10/2023 at [facility] Left: Ankle AR-8940-32 / / Screw 3mm 20mm T10 Ft Slf-Tap Lck Strdr Explanted:Qty: 1 on 08/10/2023 by Felipe Bourne MD at [facility] Left: Ankle Arthrex Inc AR-8933L-20 / / Screw 3mm 18mm Va Slf-Tap Sld Lck Ankl Explanted:Qty: 1 on 08/10/2023 by Felipe Bourne MD at [facility] Left: Ankle Arthrex Inc AR-8933V-18 / / Wire K .062in 6in Fx 2 Troc Explanted:Qty: 2 on 08/10/2023 at [facility] Left: Ankle [employer] [id number] / / Screw 3.5mm 28mm T15 Ft Slf-Tap Sld Hxlb Implanted:Qty: 1 on 08/10/2023 by Jace Muller MD at [facility] Explanted:Qty: 1 on 01/14/2024 by Jace Muller MD at [facility] Left: Ankle Arthrex Inc AR-8935CL-2 8 / / Screw 3.5mm 26mm T15 Ft Slf-Tap Sld Hxlb Implanted:Qty: 1 on 08/10/2023 by Jace Muller MD at [facility] Explanted:Qty: 1 on 01/14/2024 by Jace Muller MD at [facility] Left: Ankle Arthrex Inc AR-8935CL-2 6 / / Plate Calc 7.5mm Stp Bone Implanted:Qty: 1 on 08/10/2023 by Jace Muller MD at [facility] Explanted:Qty: 1 on 01/14/2024 by Jace Muller MD at [facility] Left: Ankle Arthrex Inc AR-8949-075 / / 3.5mm Locking Screw Implanted:Qty: 1 on 08/10/2023 by Jace Muller MD at [facility] Explanted:Qty: 1 on 01/14/2024 by Jace Muller MD at [facility] Left: Ankle AR-8935CL-2 4 / / Description:3.0-4.0 ARTHREX VENDOR TRAY Screw 3mm 16mm Va Slf-Tap Sld Lck Ankl Implanted:Qty: 1 on 08/10/2023 by Felipe Bourne MD at [facility] Explanted:Qty: 1 on 01/14/2024 by Jace Muller MD at [facility] Left: Ankle Arthrex Inc AR-8933V-16 / / Screw 3mm 20mm Va Slf-Tap Sld Lck Ankl Implanted:Qty: 1 on 08/10/2023 by Felipe Bourne MD at [facility] Explanted:Qty: 1 on 01/14/2024 by Jace Muller MD at [facility] Left: Ankle Arthrex Inc AR-8933V-20 / / Procedures Procedure Name Priority Date/Time Associated Diagnosis Comments XR CERVICAL SPINE 2 OR 3VW Routine 11/26/2024 11:41 AM CDT Neck pain IN DRAIN/INJECT LARGE JOINT/BURSA Routine 10/31/2024 4:16 PM [facility] Tendinopathy of right rotator cuff XR SHOULDER RIGHT 2VW OR MORE Routine 10/31/2024 10:58 AM [facility] Right shoulder pain, unspecified chronicity URINALYSIS W/MICROSCOPIC REFLEX TO CULTURE Routine 09/17/2024 12:11 PM [facility] Positive double stranded 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 PROTEIN CREATININE RATIO URINE RANDOM PNL Routine 09/17/2024 12:11 PM [facility] Positive double stranded 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 CULTURE URINE Routine 09/17/2024 12:11 PM [facility] Positive double stranded 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 DNA ANTIBODY DS CRITHIDIA TITER Routine 09/17/2024 12:09 PM [facility] Positive double stranded 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 COMPREHENSIVE METABOLIC PANEL Routine 09/17/2024 12:09 PM [facility] Positive double stranded 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 CBC W AUTO DIFFERENTIAL Routine 09/17/2024 12:09 PM [facility] Positive double stranded 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 DNA ANTIBODY DOUBLE STRANDED Routine 09/17/2024 12:09 PM [facility] Positive double stranded 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 ANTIBODY + HIV P24 AG PANEL AM Draw 10/12/2017 4:43 AM [facility] HEPATITIS C ANTIBODY Routine 12/27/2015 5:08 PM [...] C5-6. Report dictated by Helen Dorman MD (residential designer). Sampson Brower MD have personally reviewed and interpreted this examination/study. > Interpreting Provider: Sampson Pérez MD on 11/26/2024 12:35 PM Narrative 11/26/2024 12:35 PM CDT PROCEDURE: XR CERVICAL SPINE 2 OR 3VW, DATE/TIME OF EXAM: 11/26/2024 11:41 AM, LOCATION [facility] INDICATION: M54.2: Neck pain ADDITIONAL CLINICAL [...] 3VW, DATE/TIME OF EXAM: 1:41 AM, LOCATION [facility] INDICATION: M54.2: Neck pain ADDITIONAL CLINICAL [...] C5-6. Report dictated by Helen Dorman MD (residential designer). Sampson Brower MD have personally reviewed and interpreted this examination/study. > Interpreting Provider: Sampson Pérez MD on 11/26/2024 12:35 PM Yandel Petersen MD DIAGNOSTIC GWYN GING ORDERABLES * IN DRAIN/INJECT LARGE JOINT/BURSA (10/31/2024 4:16 PM [facility]) Narrative Vivien Teixeira PA-C - 10/31/2024 4:16 PM [facility] Vivien Teixeira PA-C 10/31/2024 4:17 PM Injection [...] Right 2Vw or More (10/31/2024 10:58 AM [facility]) Anatomical Region Laterality Modality Upper Extremity Computed Radiogr aphy 10/31/2024 10:5 8 AM [facility] Impressions 10/31/2024 11:01 AM [facility] IMPRESSION: No acute osseous abnormality. > Interpreting Provider: Sampson Pérez MD on 10/31/2024 11:01 AM Narrative 10/31/2024 11:01 AM [facility] PROCEDURE: XR SHOULDER RIGHT 2VW OR MORE [...] W/MICROSCOPIC REFLEX TO CULTURE (09/17/2024 12:11 PM [facility]) Color UA Delilah(A) Straw, Yellow 09/17/2024 12:45 PM [facility] Clarity UA Slt Cloudy(A) Clear 09/17/2024 12:45 PM [facility] Specific Bradford UA 1.032(H) 1.005 - 1.030 09/17/2024 12:45 PM [facility] pH UA 5.0 5.0 - 8.0 pH 09/17/2024 12:45 PM [facility] Protein UA Negative Negative 09/17/2024 12:45 PM [facility] Glucose UA Negative Negative 09/17/2024 12:45 PM [facility] Ketone UA Negative Negative 09/17/2024 12:45 PM [facility] Bilirubin UA Negative Negative 09/17/2024 12:45 PM [facility] Blood UA Negative Negative 09/17/2024 12:45 PM [facility] Nitrite UA Negative Negative 09/17/2024 12:45 PM [facility] Leukocyte Esterase 1+(A) Negative 09/17/2024 12:45 PM [facility] Urobilinogen UA Negative Negative mg/dL 09/17/2024 12:45 PM [facility] RBC UA 3-5 None Seen, 0-2, 3-5 /HPF 09/17/2024 12:45 PM [facility] WBC UA 11-20(A) None Seen, 0-5 /HPF 09/17/2024 12:45 PM [facility] Bacteria UA Trace(A) None /HPF 09/17/2024 12:45 PM [facility] Squamous Epithelial Cells UA >20(A) None Seen, 0-2, 3-5 /HPF 09/17/2024 12:45 PM [facility] Mucus UA 4+ /LPF 09/17/2024 12:45 PM [facility] Hyaline Casts UA 6-10(A) None Seen, 0-2 /LPF 09/17/2024 12:45 PM [facility] Urine URINE SPECIMEN OBTAINED BY CLEAN CATCH PROCEDURE / Unknown Collection / Unknown 09/17/2024 12:11 PM [facility] 09/17/2024 12:24 PM [facility] Narrative [facility] - 09/17/2024 12:45 PM [facility] Lab Status, Culture Reflex Indicated. Ev Lowery MD LAB - URINALYSIS ORD ERABLES Performing Organization Address City/[facility]/ZIP Co de Phone Number [facility] [address] [place] [address], [facility] [phone] * (ABNORMAL) CULTURE URINE (09/17/2024 12:11 PM [facility]) Culture Urine 50,000-100,000 CFU/mL Streptococcus agalactiae (Group B)(A) 09/19/2024 2:45 AM [facility] Culture Urine <10,000 CFU/mL urogenital isabell 09/19/2024 2:45 AM [facility] Urine URINE SPECIMEN OBTAINED BY CLEAN CATCH PROCEDURE / Unknown Collection / Unknown 09/17/2024 12:11 PM [facility] 09/17/2024 12:45 PM [facility] Narrative [facility] - 09/19/2024 2:45 AM [facility] Susceptibility testing of penicillin, other beta-lactam antibiotics, and vancomycin is not necessary for beta-hemolytic streptococci groups A,B,C and G because resistant strains have not been recognized. Ev Lowery MD LAB - MICROBIOLOGY O RDERABLES [facility] [address] [place] [address], [facility] [phone] * PROTEIN CREATININE RATIO URINE RANDOM PNL (09/17/2024 12:11 PM [facility]) Protein Urine 28 Not Established mg/dL 09/17/2024 1:06 PM [facility] Creatinine Urine 373.79 Not Established mg/dL 09/17/2024 1:06 PM [facility] Protein/Creati nine Ratio Urine 0.07 <0.10 09/17/2024 1:06 PM [facility] Urine URINE SPECIMEN OBTAINED BY CLEAN CATCH PROCEDURE / Unknown Collection / Unknown 09/17/2024 12:11 PM [facility] 09/17/2024 12:24 PM [facility] Ev Lowery MD LAB - URINE CHEMISTR Y ORDERABLES [address] [address], [facility] [phone] * DNA ANTIBODY DS CRITHIDIA TITER (09/17/2024 12:09 PM [facility]) dsDNA Antibody IgG <1:10 <1:10 2024 6:12 AM [facility] ([facility]) Comment: INTERPRETIVE INFORMATION: Double-Stranded DNA [...] recommendations for testing may be found at [email or web address]. Performed By: [facility] [address] [place] [id number] Police Manager: Bogdan Garcia MD, PhD CLIA Number: [id number] Blood BLOOD SPECIMEN / Unknown Lab Venipuncture / Unknown 09/17/2024 12:09 PM [facility] 09/17/2024 12:24 PM [facility] Ev Lowery MD LAB - SEROLOGY ORDER SUSANNE [facility]) [address] [place] [address], [facility] * DNA ANTIBODY DOUBLE STRANDED (09/17/2024 12:09 PM [facility]) [facility] dsDNA Antibody 4 0 - 24 IU 09/19/2024 8:29 PM [facility] ([facility]) Comment: INTERPRETIVE INFORMATION: Double-Stranded DNA (dsDNA) Ab IgG JOAQUÍN 24 IU or less........Negative 25-30 IU.............Borderline Positive 30-60 IU.............Low Positive 60-200 IU............Positive 201 IU or greater....Strong Positive Positivity for anti-double stranded DNA (anti-dsDNA) IgG antibody is a diagnostic criterion of systemic lupus erythematosus (SLE). Specimens are initially screened by enzyme-linked immunosorbent assay (JOAQUÍN). If ordered as reflex ([id number]), positive JOAQUÍN results (>24 IU) will be [...] recommendations for testing may be found at [email or web address]. Performed By: [facility] [address] [place] [address] Police Manager: Bogdan Garcia MD, PhD CLIA Number: [id number] Blood BLOOD SPECIMEN / Unknown Lab Venipuncture / Unknown 09/17/2024 12:09 PM [facility] 09/17/2024 12:24 PM [facility] Ev Lowery MD LAB - HEMATOLOGY ORD ERABLES [facility] ([facility]) [address] [place], [place] [id number], [facility] * (ABNORMAL) CBC WITH DIFFERENTIAL (09/17/2024 12:09 PM [facility]) WBC 4.9 4.0 - 10.7 x10E9/L 09/17/2024 12:35 PM [facility] RBC Count 4.85 3.90 - 5.20 x10E12/L 09/17/2024 12:35 PM [facility] Hemoglobin 13.2 11.9 - 15.8 g/dL 09/17/2024 12:35 PM [facility] Hematocrit 40.4 34.8 - 46.1 % 09/17/2024 12:35 PM [facility] MCV 83.3 80.0 - 98.0 fL 09/17/2024 12:35 PM [facility] MCH 27.2 26.7 - 33.6 pg 09/17/2024 12:35 PM [facility] [facility] MCHC 32.7 31.7 - 36.3 g/dL 09/17/2024 12:35 PM [facility] RDW-CV 15.5(H) 11.3 - 14.8 % 09/17/2024 12:35 PM [facility] Platelet Count 291 150 - 420 x10E9/L 09/17/2024 12:35 PM [facility] MPV 8.6 7.8 - 11.4 fL 09/17/2024 12:35 PM [facility] Neutrophil % 54.0 41.0 - 74.0 % 09/17/2024 12:35 PM [facility] Lymphocyte % 35.9 17.0 - 47.0 % 09/17/2024 12:35 PM [facility] Monocyte % 6.5 3.0 - 11.0 % 09/17/2024 12:35 PM [facility] Eosinophil % 2.8 0.0 - 7.0 % 09/17/2024 12:35 PM [facility] Basophil % 0.4 0.0 - 1.6 % 09/17/2024 12:35 PM [facility] Immature Granulocytes % 0.4 0.0 - 1.0 % 09/17/2024 12:35 PM [facility] Neutrophil Absolute 2.66 1.60 - 7.50 x10E9/L 09/17/2024 12:35 PM [facility] Lymphocyte Absolute 1.77 1.00 - 4.40 x10E9/L 09/17/2024 12:35 PM [facility] Monocyte Absolute 0.32 0.15 - 1.00 x10E9/L 09/17/2024 12:35 PM [facility] Eosinophil Absolute 0.14 0.00 - 0.60 x10E9/L 09/17/2024 12:35 PM [facility] Basophil Absolute 0.02 0.00 - 0.13 x10E9/L 09/17/2024 12:35 PM [facility] Blood BLOOD SPECIMEN / Unknown Lab Venipuncture / Unknown 09/17/2024 12:09 PM [facility] 09/17/2024 12:29 PM [facility] Ev Lowery MD LAB - HEMATOLOGY ORD ERABLES [facility] [address] [place] [address], [facility] [phone] * (ABNORMAL) COMPREHENSIVE METABOLIC PANEL (09/17/2024 12:09 PM [facility]) BUN 17 7 - 26 mg/dL 09/17/2024 1:09 PM [facility] Creatinine 1.03(H) 0.56 - 0.96 mg/dL 09/17/2024 1:09 PM [facility] Sodium 139 136 - 145 mmol/L 09/17/2024 1:09 PM [facility] Potassium 3.9 3.5 - 4.5 mmol/L 09/17/2024 1:09 PM [facility] Chloride 103 98 - 107 mmol/L 09/17/2024 1:09 PM [facility] CO2 24 22 - 29 mmol/L 09/17/2024 1:09 PM [facility] Glucose 98 70 - 99 mg/dL 09/17/2024 1:09 PM [facility] Calcium 9.4 8.4 - 10.2 mg/dL 09/17/2024 1:09 PM [facility] Protein Total 8.2 6.0 - 8.3 g/dL 09/17/2024 1:09 PM [facility] Albumin 4.1 3.4 - 5.0 g/dL 09/17/2024 1:09 PM [facility] Bilirubin Total 0.4 0.2 - 1.2 mg/dL 09/17/2024 1:09 PM [facility] Alkaline Phosphatase 82 40 - 150 U/L 09/17/2024 1:09 PM [facility] ALT 30 5 - 55 U/L 09/17/2024 1:09 PM [facility] AST 32 5 - 34 U/L 09/17/2024 1:09 PM [facility] Anion Gap 12 6 - 16 09/17/2024 1:09 PM [facility] BUN/Creatinine Ratio 17 7 - 23 09/17/2024 1:09 PM [facility] Osmolality Calculated 290 275 - 295 mOsm/kg 09/17/2024 1:09 PM [facility] Albumin/Globulin Ratio 1.0(L) 1.1 - 2.3 09/17/2024 1:09 PM [facility] eGFR by CKD-EPI 64(L) >=90 mL/min/1.7 3 m2 09/17/2024 1:09 PM [facility] Blood BLOOD SPECIMEN / Unknown Lab Venipuncture / Unknown 09/17/2024 12:09 PM [facility] 09/17/2024 12:29 PM [facility] Ev Lowery MD LAB - CHEMISTRY [facility] Organization Address City/State/ZIP Co de Phone Number [facility] [address] [place] [phone], [facility] [phone] * HIV-1 HIV-2 ANTIBODY + HIV P24 AG PANEL (10/12/2017 4:43 AM [facility]) HIV1/2 Ab + P24 Ag Non Reactive Non Reactive 10/12/2017 11:04 AM [facility] Blood BLOOD SPECIMEN / Unknown Venipuncture / Unknown 10/12/2017 4:43 AM [facility] 10/12/2017 4:57 AM [facility] Narrative [facility] - 10/12/2017 11:04 AM [facility] No Laboratory evidence of HIV infection. Singh Moyer MD LAB - CHEMISTRY ORDERABLES [facility] [address] [place] [address] * HEPATITIS C ANTIBODY (12/27/2015 5:08 PM CDT) [facility] Hepatitis C Antibody Non-react [facility] [...] Avalos MD LAB - CHEMISTRY [facility] [address] [phone] from Last 3 Months or Most Recently [...] 8:14 PM 04/27/2022 6:26 PM Care Teams Federal [employer] Relationship Specialty Start Date End Date Key Tolliver MD [address] [place] [address] [phone] PCP - General 10/22/18 Pablo Liriano MD [address] [place] [address] [phone] Orthopedic Surgery 05/22/19 Evan Willis MD [address] [place] [address] [phone] Medical Oncologist Medical Oncology 11/02/21 Charles Kingston MD [address] [place] [phone] Tone Artist Apprentice Cardiology 11/03/21
--- OUTSIDE RECORDS SUMMARY | 2024-12-09 22:09 | XMS_ITS | Data Portability ---
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 Name Role Phone KEY AMARO Primary Care Provider KEY AMARO Referring Provider [phone] Assessment Encounter Date Assessment Date Assessment LastModified by Organization Details LastModified Time 06/25/2024 06/25/2024 Assessment: Methacholine (+) mild intermittent asthma Mild OSHS, HI = 2 Plan: The following were reviewed and explained to the patient: [facility] diagnostic sleep study 06/24/14 sleep onset = 2.5 minutes, REM onset = 75.5 minutes, AHI = 10, supine AHI = 13, REM AHI = 47, PLMI = 0.0 [facility] titration sleep study 07/13/14 sleep onset = 8 minutes, REM onset = 68.5 minutes, ResMed medium AirFit P10 nasal pillows at 12 cmH2O, PLMI = 0.0 PFT 10/14/18 nl FEV1/FVC, FEV1 2.26 L (91%), BD 40 mL = 1%, TLC 4.00 L (75%), DLCO 101%, DLCO /VA 127% [facility] diagnostic sleep study 07/04/21 sleep onset [...] further management. Follow-up: 3 months, September 2024 [place] Not available 06/25/2024 10:53:23 09/24/2024 09/24/2024 Assessment: Methacholine (+) mild persistent asthma Mild OSHS, HI = 2 Plan: The following were reviewed and explained to the patient: [facility] diagnostic sleep study 06/24/14 sleep onset = 2.5 minutes, REM onset = 75.5 minutes, AHI = 10, supine AHI = 13, REM AHI = 47, PLMI = 0.0 [facility] titration sleep study 07/13/14 sleep onset = 8 minutes, REM onset = 68.5 minutes, ResMed medium AirFit P10 nasal pillows at 12 cmH2O, PLMI = 0.0 [facility] diagnostic sleep study 07/04/21 sleep onset = [...] further management. Follow-up: 3 months, December 2024 [place] Not available 09/24/2024 15:29:43 10/07/2024 10/07/2024 Assessment: Mild atelectasis Methacholine (+) mild persistent asthma Mild OSHS, HI = 2 Plan: The following were reviewed and explained to the patient: [facility] diagnostic sleep study 06/24/14 sleep onset = 2.5 minutes, REM onset = 75.5 minutes, AHI = 10, supine AHI = 13, REM AHI = 47, PLMI = 0.0 [facility] titration sleep study 07/13/14 sleep onset = 8 minutes, REM onset = 68.5 minutes, ResMed medium AirFit P10 nasal pillows at 12 cmH2O, PLMI = 0.0 [facility] diagnostic sleep study 07/04/21 sleep onset = 14.5 minutes, REM onset = 266 minutes, HI = 2, PLMI = 0 2-D echocardiogram 12/25/23 EF 60%, mild LAE Lab data 04/28/24 multiple environmental allergies PFT 10/14/18 nl FEV1/FVC, FEV1 2.26 L (91%), BD 40 mL = 1%, TLC 4.00 L (75%), DLCO 101%, DLCO /VA 127% Methacholine challenge 05/27/24 (+) methacholine challenge at level [address] 07/20/21 mild apical emphysema Chest CT 05/09/[address] disease Chest CT 10/02/24 mild atelectasis, no pulmonary embolism Reassurance that she does not have pulmonary embolism. Continue incentive spirometer x 5 minutes every 2 hours while awake to reverse and prevent further atelectasis. General information on bronchial asthma was covered. Patient will monitor peak flow daily at [...] to smoke. Continue albuterol HFA as needed. Resume Flovent 44 mcg 2 puffs BID. Gargle [...] PCP for further management. Follow-up: 3 months, January 2025 Not available 10/07/2024 12:10:20 Plan of Treatment Reminders Order Date Submit Date Provider Last Modified By Organization Details Last Modified Time Details Appointments Any 15 2024 01:00P Cory Conteh MD Not available Not available Not available Lab cerulopla smin, serum [address] (Lab), [address] [place], [address], 10/23/2024 14:30:54 mitochond rial Ab, serum [address] (Lab), [address] [place], [address], 10/23/2024 14:31:00 smooth muscle Ab, serum [address] (Lab), [address] [place], [address], 10/23/2024 14:31:08 unlisted lab - alpha 1 antitryps in quant [address] (Lab), [address] [place], [address], 10/23/2024 14:31:17 gamma-glu tamyl transfera se (ggt), serum [address] (Lab), [address] [place], [address], 10/23/2024 14:30:29 Referral None recorded. Procedures upper endoscopy procedure (EGD) (PROC) 2024 025 [facility] (Pre-Screen), [address] [place], [address], 10/27/2024 14:05:06 Surgeries None recorded. Imaging CT, angiogram , abdomen, w/ contrast - Please contact patient to schedule 2024 025 [facility] (One Call Scheduling), [address] [place], [address], 12/09/2024 10:30:37 Medication Orders albuterol sulfate HFA 90 mcg/actua tion aerosol inhaler 2024 025 [facility], [address] [place], [place], [id number], 10/07/2024 12:10:32 Flovent HFA 44 mcg/actua tion aerosol inhaler 2024 025 [facility], [address] [place], [place], [id number], 10/07/2024 12:10:26 albuterol sulfate HFA 90 mcg/actua tion aerosol inhaler 2024 025 [facility]92722, [address] [place], [place], [id number], 09/24/2024 15:31:56 Flovent HFA 44 mcg/actua tion aerosol inhaler 2024 025 [facility], [address] [place], [place], [id number], 09/24/2024 15:31:53 albuterol sulfate HFA 90 mcg/actua tion aerosol inhaler 2023 024 [facility], [address] [place], [place], [id number], 06/25/2024 10:53:10 Patient TargetsNo targets recorded. Patient Instructions Encounter Date Encounter Id Patient Instructions Last Modified By Organization Details Last Modified Time 10/22/2024 [id number] [employer] [facility] [email or web address] Not available 0 10/22/2024 13:00:20 PT WITH GERD , DESPITE PPI/ H2RA. RECOMMEND AN EGD . . Risks benefits and complications were explained to the pt. ( BLEEDING PERFORATION , INFECTION , ). PT VERBALIZES UNDERSTANDING AND IS WILLING TO PROCEDE . PT WITH ELEVATED LFTs , CHECK LIVER MARKERS . F/U AFTER PROCEDURE [email or web address] Not available 10/22/2024 13:01:31 11/05/2024 [id number] PT WITH EPIGASTR IC PAIN OUT OF PROPORTION WITH EXAM. PT HAS SLE . NEED TO R/O VASCULAR VS NEURAL ETIOLOGY . RECOMMEND A CTA VS MRA. [email or web address] Not available 11/05/2024 16:07:33 Reason for Referral None Reported. Results Created Date Observation Date Name Description Value Unit Range Abnormal Flag Note LastModifiedBy Organization Detail LastModifiedTime 06/19/20 24 05/27/2024 metha choli ne chall enge* No observ ation record ed. [facility] (Cardiology & Emg) [address], [place], [address], 06/19/2024 16:29:29 10/07/19 25 10/02/2024 CT, angio gram, chest , w/ contr ast No observ ation record ed. [facility] Not Available 2024 13:37:56 Result Notes None recorded. Problems Name Problem SNOMED Code Status Onset Date Resolution Date Notes Provider Name and Address Organization Details Recorded Time Acquired bilateral pes planus 5878553732438 9109 Active 2021 Not Available [facility] 3 04:18:31 History of total knee arthroplas ty 7063095824319 Active 2019 Not Available [facility] 3 04:18:31 Trigger finger of left hand 7624849558095 9107 Active 2020 Not Available [facility] 3 04:18:31 Trigger finger of right hand 8302981273025 9101 Active 2019 Not Available [facility] 3 04:18:31 Lupus erythemato rambo 051106673 Active Not Available [facility] 3 04:18:31 Osteoarthr itis of knee 120600274 Active Not Available [facility] 3 04:18:31 Hypertensi ve disorder 96355135 Active Not Available [facility] 3 04:18:32 Hypothyroi dism 97955749 Active Not Available [facility] 3 04:18:32 Acid reflux 749603491 Active Not Available [facility] 3 04:18:32 Urge incontinen ce of urine 29709405 Active 2022 Not Available [facility] 3 04:18:32 Gastroesop hageal reflux disease without esophagiti s 041423643 Active 2022 Not Available [facility] 3 04:18:31 Mild intermitte nt asthma 964770831 Active 2023 Vinnie Conteh MD [address], [place], [address] , [employer] [facility] 4 10:52:19 Mild persistent asthma 261706702 Active 2024 Vinnie Conteh MD [address], [place], [address] , [employer] [facility] 5 15:28:14 Liver enzymes level above reference range 610001831 Active 2024 Henna Wilson MD [address], [place], [address] , [employer] [facility] 5 12:59:19 Epigastric pain 17516344 Active 2024 Henna Wilson MD [address], [place], [address] , [employer] [facility] 5 12:59:40 Notes:Medical History: Depre ssion/Anxiety COVID infection Rhinitis Eosinophils 50/uL Early REM onset Obesity Methacholine (+) mild persistent asthma Mild restrictive airflow impairment Hypothyroidism Hyperlipidemia Hypertension EF 60% NATALIA Hepatic steatosis Granulomatous disease (lung, spleen) Urge urinary incontinence SLE Sepsis 2018 Vit D deficiency Osteoporosis Thoracolumbar DDD Pes planus Bilateral trigger finger Procedure History: T&A 2000 Appendectomy 2003 Cholecystectomy 2004 ANN 2007 EGD 2011 Colonoscopy 2011 Left MRM for stage IIIB 2013 Right prophylactic mastectomy 2013 Chemotherapy/Radiation therapy 2014 Right total knee arthroplasty 2015 Left total knee arthroplasty 2016 Cardiac catheterization 2016 BSO 2017 Right foot surgery 2018 Left shoulder arthroplasties 2019, 2020 Bilateral breast implants 2023 Left knee revision 2024 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 Procedures Surgical History Date Name Laterality Status Provider Name and Address Organization Details Recorded Time Hysterectomy completed Not Available [facility] 11/01/2022 09:13:16 Rotator cuff surgery completed Not Available [facility] 11/01/2022 09:13:16 Knee Replacement completed Not Available [facility] 11/01/2022 09:13:16 Carpal tunnel surgery completed Not Available [facility] 11/01/2022 09:13:16 excision of bilateral breasts completed Not Available [facility] 09:13:16 Foot Surgery completed Not Available [facility] 11/01/2022 09:13:16 Endoscopy completed Not Available [facility] 0 11/01/2022 09:13:16 colonoscopy completed Not Available [facility] 11/01/2022 09:13:16 Breast Implants completed Payton Bryson MA [employer] 09/24/2024 15:15:52 Imaging Results Imaging Date Name Status LastModified by Organization Details LastModified Time 05/27/2024 methacholine challenge* completed [facility] (Cardiology & Em[facility]) [address], [place], [address], 06/19/2024 16:29:29 10/02/2024 CT, angiogram, chest, w/ contrast completed [facility] Information not available 10/07/2024 13:37:56 Procedure Notes None recorded. Medical Equipment None Reported. Allergies Allergen ID Allergen Name Allergen Category Reaction Reaction Severity Criticality Documentation Date Start Date Code Code System Note Provider Name and Address Organization Details Recorded Time 21264 adhesive tape environme nt,medica tion Not available Not available Not available 04/28/2024 [id number] UNK Payton Bryson MA [facility], [employer] 10:29:30 Medications Name Sig Start Date Stop Date Status Note LastModified by Organization Details LastModified Time celecoxib 200 mg capsule TAKE 1 CAPSULE BY MOUTH TWICE DAILY WITH MEALS active Not Available Not Available No t Available cyclobenzap rine 10 mg tablet TAKE [...] Not Available Not Available No t Available ipratropium 0.5 mg-albutero l 3 mg (2.5 mg base)/3 mL nebulizatio n soln USE 3 ML VIA NEBULIZER EVERY 6 HOURS NEEDED FOR SHORTNESS OF BREATH active Not Available Not Available No t [...] completed Not Available Not Available Not Available sucralfate 100 mg/mL oral suspension active Not Available Not Available N ot Available ondansetron HCl 8 mg tablet TAKE [...] Not Available prednisone 20 mg tablet TAKE 2 TABLETS BY MOUTH DAILY FOR 5 DAYS 10/07 completed Not Available Not Available Not Available [...] Available Not Available famotidine 20 mg tablet TAKE 1 TABLET BY MOUTH AT BEDTIME active Not Available Not Available [...] Available Not Available dicyclomine 20 mg tablet TAKE 1 TABLET BY MOUTH FOUR TIMES DAILY NEEDED FOR ABDOMINAL PAIN active Not Available Not Available No t Available Kenalog 10 mg/mL suspension for injection In office injection administe red by the provider 01/[address] [facility]: 0003- 0494- 20 Not Available Not Available [...] MOUTH EVERY 4 HOURS NEEDED FOR PAIN active Not Available Not Available No t Available bisacodyl 10 mg rectal suppository TK [...] TAKE 1 TABLET BY MOUTH EVERY DAY 10/22 completed Not Available Not Available Not Available ondansetron 4 mg disintegrat ing tablet [...] tablet TAKE 1 TABLET BY MOUTH DAILY 10/07 completed Not Available Not Available Not Available dicyclomine 10 mg capsule TAKE 1 CAPSULE BY MOUTH THREE TIMES DAILY 10/07 completed Not Available Not Available Not Available tamoxifen 20 mg tablet TK 1 [...] Available Not Available Not Available amoxicillin 875 mg-zainiu m clavulanate 125 mg tablet TK 1 [...] DAY IN THE MORNING FOR DEPRESSIO N 10/22 completed Not Available Not Available Not Available nitrofurant oin monohydrate /macrocryst als 100 [...] administe red by the provider 01/[address] [facility]: 0409- 4276- [phone] Not Available Not Available [...] tablet TAKE 1 TABLET BY MOUTH DAILY FOR 14 DAYS active Not Available Not Available No t Available Stimulant Laxative Plus 8.6 mg-50 mg [...] Updated DateTime 4 165.1 cm 37.1 kg/m2 937084. 1 g 68 /min 97 % 97 % 98.3 [degF] 124 mm[Hg] 70 mm[Hg] Jada Crow CMA [facility] [employer] 4 10:27:02 Date Recorded Heart rate Respiratory rate Provider N josette and Address Organization Details Last Updated DateTime 06/25/2024 68 /min 15 /min Vinnie Conteh MD [address] [facility], [facility] [address], [place], [address], [facility] [facility] [employer] 06/25/2024 10:51:58 Date Recorded Body height Body mass index (BMI) Body weight Body temperature Heart rate Oxygen saturation Oxygen saturation in Arterial blood by Pulse oximetry Systolic blood pressure Diastolic blood pressure Provider Name and Address Organization Details Last Updated DateTime 5 165.1 cm 39.1 kg/m2 138064. 21 g 97.8 [degF] 72 /min 98 % 98 % 118 mm[Hg] 82 mm[Hg] Payton Bryson MA [facility] [employer] [facility] 15:18:41 Date Recorded Heart rate Respiratory rate Provider N josette and Address Organization Details Last Updated DateTime 09/24/2024 72 /min 15 /min Vinnie Conteh MD [address] [facility], [address] [place] [facility] 09/24/2024 15:34:46 Date Recorded Body height Body mass index (BMI) Body weight Body temperature Heart rate Oxygen saturation Oxygen saturation in Arterial blood by Pulse oximetry Systolic blood pressure Diastolic blood pressure Provider Name and Address Organization Details Last Updated DateTime 165.1 cm 38.3 kg/m2 722029. 25 g 98.1 [degF] 81 /min 97 % 97 % 118 mm[Hg] 78 mm[Hg] Payton Bryson MA [facility] [employer] 11:55:18 Date Recorded Heart rate Respiratory rate Provider N josette and Address Organization Details Last Updated DateTime 10/07/2024 81 /min 14 /min Vinnie Conteh MD [address] [facility], [address] [place] [facility] 10/07/2024 11:58:55 Date Recorded Body height Body mass index (BMI) Body weight Heart rate Oxygen saturation Oxygen saturation in Arterial blood by Pulse oximetry Systolic blood pressure Diastolic blood pressure Provider Name and Address Organization Details Last Updated DateTime 5 165.1 cm 38.1 kg/m2 519846. 65 g 80 /min 98 % 98 % 120 mm[Hg] 80 mm[Hg] AUBREE Lee [facility] [place] [facility] 12:30:19 Date Recorded Body height Body mass index (BMI) Body weight Heart rate Oxygen saturation Oxygen saturation in Arterial blood by Pulse oximetry Systolic blood pressure Diastolic blood pressure Provider Name and Address Organization Details Last Updated DateTime 165.1 cm 38.1 kg/m2 369755. 65 g 82 /min 99 % 99 % 122 mm[Hg] 82 mm[Hg] AUBREE Lee [place] [facility] [employer] 15:30:34 Social History Question Answer Notes LastModified by Organizat ion Details LastModified Time Tobacco Smoking Status Never Smoker Not Available [facility] 11/01/2022 09:13:04 Do You Have An Advance Directive? No [id number] Information not available 11/01/2022 What Is Your Level Of Alcohol Consumption? None [id number] Information not available 11/01/2022 What Is Your Level Of Caffeine Consumption? None [id number] Information not available 11/01/2022 In The 14 Days Before Symptom Onset, Have You Had Close Contact With A Laboratory-confirm ed COVID-19 While That Case Was Ill? No [id number] Information not available 11/01/2022 In The 14 Days Before Symptom Onset, Have You Had Close Contact With A Person Who Is Under Investigation For COVID-19 While That Person Was Ill? No [id number] Information not available 11/01/2022 Are You Currently Employed? No Information not available 04/28/2024 What Type Of Diet Are You Following? REGULAR [id number] Information not available 11/01/2022 Do You Have An Electrostatic Air Filter? Yes Information not available 04/28/2024 Do You Have A Humidifier? Yes Information not available 04/28/2024 Do You Have Moisture Problems In Your Home? No Information not available 04/28/2024 What Was The Date Of Your Most Recent Tobacco Screening? 10/07/2024 Information not available 10/07/2024 Do You Have Any Pets? No Information not available 04/28/2024 What Is Your Relationship Status? [id number] Information not available 11/01/2022 Do You Use Your Seat Belt Or Car Seat Routinely? Yes Information not available 04/28/2024 Do You Have Smoke And Carbon Monoxide Detectors In Your Home? Yes Information not available 04/28/2024 Are You Passively Exposed To Smoke? No Information no t available 04/28/2024 Do You Feel Stressed (tense, Restless, Nervous, Or Anxious, Or Unable To Sleep At Night)? [id number] Information not available 04/28/2024 Do You Use Any Illicit Or Recreational Drugs? No [id number] Information not available 11/01/2022 Do You Use Sunscreen Routinely? No Information not available 04/28/2024 Has Tobacco Cessation Counseling Been Provided? No [id number] [id number] Information not available 11/01/2022 Have You Recently Traveled Abroad? No [id number] Information not available 11/01/2022 Do You Or Have You Ever Used Any Other Forms Of Tobacco Or Nicotine? No [id number] 026 Information not available 11/01/2022 Sex: Female Functional Status Question Answer Note LastModified by Organizat ion Details LastModified Time What is your exercise level? None [id number] Information not available 11/01/2022 Mental Status None recorded. Family History Relationship Description Onset Age of this Age Resolved Age Notes LastModified by Organization Details LastModified Time Maternal Grandmother Heart disease [id number] Not available 11/01/2022 09:13:17 Maternal Aunt Heart disease [id number] Not available 11/01/2022 09:13:17 Father Migraine Not [...] DISEASE/DISORDER N HISTORY OF DRUG ABUSE N COPD N RADIATION / CHEMOTHERAPY N SPORTS INJURY N ANKLE PAIN N BLOOD DISEASES N SCHIZOPHRENIA N SHINGLES N SHOULDER PAIN N DEPRESSION (INCLUDING POST ) Y BOWEL PROBLEMS N STROKE/TIA N KNEE PAIN N ULCERS N BENIGN PROSTATIC HYPERPLASIA N OBESITY N [...] HAVE YOU BEEN HOSPITALIZED OR SEEN IN [facility] ER IN THE PAST YEAR ? N BURSITIS [...] SNOMED-CT Code Diagnosis ICD10 Code Diagnosis Note [id number] [facility] [address] [facility] [address] [place] [address] 01/25/2021 00:00:00 01/25/2021 16:40:12 [id number] [facility] [address] [facility] [place] [address] 04/05/2021 00:00:00 04/05/2021 14:39:42 [id number] [facility] [address] [facility] [place] [address] 04/12/2021 00:00:00 04/12/2021 15:46:41 [id number] [facility] [address] [place] [address] 04/19/2021 00:00:00 04/19/2021 14:45:42 [id number] [facility] [address] [place] [address] 05/17/2021 00:00:00 05/31/2021 09:08:02 [id number] _ATHENA_M IGRATION_ DEFAULT_1 _1 , 06/15/2021 00:00:00 06/15/2021 15:14:16 [id number] [facility] [address] [place] [address] 06/21/2021 00:00:00 06/21/2021 14:32:55 [id number] [facility] [address] [place] [address] 08/02/2021 00:00:00 08/08/2021 14:20:31 [id number] [facility] [address] [place] [address] 09/15/2021 00:00:00 09/15/2021 14:30:27 [id number] [facility] [address] [place] [address] 11/17/2021 00:00:00 11/17/2021 15:28:48 [id number] [facility] [address] [place] [address] 12/01/2021 00:00:00 12/01/2021 18:07:39 [id number] [facility] [address] [place] [address] 01/03/2022 00:00:00 01/03/2022 17:30:11 [id number] [facility] [address] [place] [address] 01/26/2022 00:00:00 01/27/2022 07:31:45 [id number] [facility] [address] [place] [address] 02/02/2022 00:00:00 02/03/2022 09:58:36 [id number] [facility] [address] [place] [address] 03/23/2022 00:00:00 03/24/2022 10:00:09 [id number] [facility] [address] [place] [address] 04/04/2022 00:00:00 04/04/2022 15:46:20 [id number] [facility] [address] [place] [address] 06/29/2022 00:00:00 06/29/2022 13:11:09 [id number] [facility] [address] [place] [address] 09/07/2022 00:00:00 09/07/2022 14:14:38 [id number] Ankur Espinal MD [facility] [address] [place] [address] 11/02/2022 14:09:04 11/02/2022 15:07:21 Low back pain 409385666 M54.50 Mechanical complication of implant 204934279 T85.698D Knee joint painful on movement 604397883 M25.569 Spinal hernan nosis of lumbar region 22361599 M48.061 History of left total knee replacement 5216821940 212862 Z96.652 History of right total knee replacement 7664438501 121308 Z96.651 Pain of ri ght shoulder joint 8470679597 0401117 M25.511 Tendinitis of right rotator cuff 0594754219 9058151 M67.813 [id number] Scott Lucas MD [facility] [address] [place] [address] 12/11/2022 14:05:05 12/11/2022 14:38:46 Urge incontinence of urine 95108901 N39.41 Negative ua, low residual, went over options, will try Gemtesa 75 mg a day. [id number] Henna Wilson MD [facility] General Surgery [address] [address] 03/14/2023 15:49:07 04/04/2023 13:12:05 Gastroesophageal reflux disease without esophagitis 788340025 K21.9 [id number] Ankur Espinal MD [facility] [address] [place] [address] 03/29/2023 13:07:35 03/29/2023 13:36:11 Low back pain 209640722 M54.50 History of bilateral total knee replacement 2865874904 690638 Z96.653 Bilateral sacroiliac joint pain 4914475480 4225902 M53.3 [id number] Henna Wilson MD [facility] General [facility] [facility], [address] [address] 05/16/2023 15:06:28 05/16/2023 15:28:25 Gastroesophageal reflux disease without esophagitis [id number] K21.9 [id number] MELODIE Abdalla [facility] [place] [address] [place] [address] 05/17/2023 13:06:34 05/17/2023 14:32:54 Pain of right knee joint [id number] M25.561 History of bilateral total knee replacement [id number] 699642 Z96.653 History of right total knee replacement [id number] 690796 Z96.651 Mechanical complication of implant 697753018 T85.698A T84.039A [id number] Ankur Espinal MD [facility] [place] [address] [place] [address] 05/22/2023 14:43:07 05/22/2023 15:21:27 History of total knee arthroplasty [id number] 105 Z96.114 [id number] Henna Wilson MD [facility] General Surgery [address] [place], [place] [address], [address] [address] 02/06/2024 14:11:19 02/06/2024 14:44:49 Gastroesophageal reflux disease without esophagitis [id number] K21.9 [id number] Vinnie Conteh MD [place] [address] 04/28/2024 10:17:28 04/29/2024 08:48:30 Dyspnea on exertion [id number] R06.09 R05.9 T78.40XA D89.9 C50.912 J43.9 [id number] Vinnie Conteh MD [place] [address] 06/25/2024 10:05:36 06/25/2024 12:53:26 Mild intermittent asthma 127725545 J45.20 [id number] Vinnie Conteh MD [place] [address] 09/24/2024 15:04:24 09/29/2024 14:54:32 Mild persistent asthma [id number] J45.30 [id number] Vinnie Conteh MD [address] [address] 10/07/2024 11:33:54 10/07/2024 14:07:21 Mild persistent asthma [id number] J45.30 [id number] Henna Wilson MD [facility] General Surgery [address] [place] [address] 10/22/2024 12:27:09 10/22/2024 12:56:20 Gastroesophageal reflux disease without esophagitis [id number] K21.9 Liver enzy mes level above reference range 232152036 R74.01 Epigastric pain 51156386 R10.13 [id number] Henna Wilson MD [facility] General Surgery [address] [place] [address], [address] [address] 11/05/2024 15:28:46 11/05/2024 16:20:13 Gastroesophageal reflux disease without esophagitis [id number] K21.9 Liver enzy mes level above reference range 002981352 R74.01 Epigastric pain 10819951 R10.13 OUT OF PROPORTION WITH EXAM. Health Concerns Section Related Observation LastModified by Organization Detai ls LastModified Time None Recorded Concern Status LastModified by Organization Details LastModified Time None Recorded Advance Directives Directive N: Payers Encounter Date Sequence Insurance Name Policy Number Policy Casarez Covered Member ID Casarez Member ID Guarantor Name 06/25/2024 1 [facility] ON OR AFTER 03/03/21 (MEDICAID REPLACEMENT - HMO) Chela Mcnulty [id number] Chela Mcnulty 09/24/2024 1 [facility] ON OR AFTER 03/03/21 (MEDICAID REPLACEMENT - HMO) Chela Mcnulty [id number] Chela Mcnulty 10/07/2024 1 [facility] ON OR AFTER 03/03/21 (MEDICAID REPLACEMENT - HMO) Chela Mcnulty [id number] Chela Mcnutly 10/22/2024 1 [facility] ON OR AFTER 03/03/21 (MEDICAID REPLACEMENT - HMO) Chela Mcnulty [id number] Chela Mcnulty 11/05/2024 1 [facility] ON OR AFTER 03/03/21 (MEDICAID REPLACEMENT - HMO) Chela Mcnulty [id number] Chela Mcnulty Notes Date Note Type Note Provider Name and Address Organization Details Recorded Time 06/25/2024 text/html Primary care/Ref erring provider: Key [...] staircase, wipingAlleviating factors: rest Modified [employer] ([employer]) Dyspnea Scale - Grade 2Grade 0 I only get breathless with strenuous exercise .Grade 1 I get short of breath when hurrying on the level or walking up a slight hill .Grade 2 I walk slower than people of the same age on the level because of breathlessness or have to stop for breath when walking at my own pace on the level .Grade 3 I stop for breath after walking about 100 yards or after a few minutes on the level .Grade 4 I am too breathless to leave the house or I am breathless when dressing . Treatment history:None Other symptoms:Drooling: noDysarthria: noNeck [...] slight chance of dozing. Vinnie Conteh MD [address] [place] [address], [facility] [address], [place], [address], [facility] [employer] 06/25/2024 10:55:39 09/24/2024 text/html Primary care/Ref erring [...] staircase, wipingAlleviating factors: rest Modified [employer] ([employer]) Dyspnea Scale - Grade 2Grade 0 I only get breathless with strenuous exercise .Grade 1 I get short of breath when hurrying on the level or walking up a slight hill .Grade 2 I walk slower than people of the same age on the level because of breathlessness or have to stop for breath when walking at my own pace on the level .Grade 3 I stop for breath after walking about 100 yards or after a few minutes on the level .Grade 4 I am too breathless to leave the house or I am breathless when dressing . Patient's personal best peak flow has [...] chance of dozing. Vinnie Conteh MD [address] [facility], [facility] [address], [place], [address], [place] [facility] [employer] 09/24/2024 15:34:56 10/07/2024 text/html Primary care/Ref erring provider: Key Amaro MD; Charles Kingston MD CC: I was hospitalized at [facility] from 10/01/24 to 10/03/24 for left knee revision. I was discharged on 2 Lpm O2 and I am still having exertional dyspnea. The last time I used my Flovent HFA was 2 days before the surgery. Patient is here to go over her asthma management. Initial development of shortness of breath: 1989Duration of shortness of breath: 36 yearsCondition of shortness of breath: stableTiming of shortness of breath: noneFrequency: up to 3 times a dayLimits activities: yesAggravating factors: walking, going up a 7-step staircase, wipingAlleviating factors: rest Modified [employer] ([employer]) Dyspnea Scale - Grade 2Grade 0 I only get breathless with strenuous exercise .Grade 1 I get short of breath when hurrying on the level or walking up a slight hill .Grade 2 I walk slower than people of the same age on the level because of breathlessness or have to stop for breath when walking at my own pace on the level .Grade 3 I stop for breath after walking about 100 yards or after a few minutes on the level .Grade 4 I am too breathless to leave the house or I am breathless when dressing . Patient's personal best peak flow remains at 350 L/min. Treatment history: Albuterol HFA as needed since 2014, uses every day as needed Flovent 44 mcg 2 puffs BID since 09/2024 Other symptoms:Drooling: noDysarthria: noNeck pain: noOdynophagia: noDysphagia: [...] minutes in the traffic - 0TOTAL SCORE 2Subjectively, patient has a slight chance of dozing. Vinnie Conteh MD [address] [place] [address], [place], [address], [facility] 10/07/2024 12:18:38 10/22/2024 text/html CHELA WAS SEEN IN THE OFFICE TODAY FOR A F/U. PT HAS GERD AND IS DOING WELL . PT IS C/O RUQ PAIN AND WAS DX WITH FATTY LIVER . NO LESIONS NOTED ON CT ABD . PT IS S/P LAP ANMA . LABS : AST/ ALT 29/ 43, HEPC AB (-) , HEP B S AG (-), HB 14, PT REPORTS WT 240LBS NOW 229, SHE REPORTS CHRONIC NAUSEA BUT NO VOMITING . PT IS ON OMEPRAZOLE 20 MG BID , FAMOTIDINE 40 MG AT BED TIME . PT REPORTS CHRONIC PYROSIS. Henna Wilson MD [address], [facility] [address], [place], [address], [facility] [employer] [facility] 10/22/2024 13:02:33 11/05/2024 text/html CHELA WAS SEEN IN THE OFFICE TODAY FOR A F/U. PT HAS SLE . PT WAS C/O EPIGASTRIC PAIN DESPITE TAKING OMEPRAZOLE /FAMOTIDINE 40 MG . . SHE IS S/P EGD WITH BX . NOLBERTO TEST WAS NORMAL . SUCRALFATE WAS ADDED TO HER REGIMEN. TODAY REPORTS THAT HER SX ARE NOT CHANGED . SX ARE INCREASED AFTER EATING . Henna Wilson MD [address], [facility] [address], [place], [address], [facility] [employer] [facility] 11/05/2024 16:09:07 OBGyn Episode No OBEpisode recorded.
--- OUTSIDE RECORDS SUMMARY | 2024-12-09 22:10 | XMS_ITS ---
Author Organization [facility] Address [address] [place] [address] Phone Care Team Providers Care Forest Products Teacher Name Role Phone LEILANI MABRY, NILESH Primary Care Provider [phone] Problems Includes: Active, inactive, and resolved Problems All Visits Onset Date Resolved Date Provider Condition S tatus Chronic Pain Syndrome 07/31/2023 HARLEEN COULTER PMHNP Active Last Documented On 3 1:32PM ; [facility] Plan of Treatment Referrals To Diagnosis Pain Management [address] [address] - Radiculopathy, lumbar region Note: consent for bilateral L4-5 transforaminal epidural Last Documented On 9 3:07PM ; [facility] Pain Management [address] [address] - Radiculopathy, lumbar region Note: consent for bilateral L4-5 transforaminal epiduralDr Sami Last Documented On 9 9:01AM ; [facility] Pain Management [address] [address] - Spondylosis w/o myelopathy or radiculopathy, cervical region Note: consent for bilateral C5, C6, C7 medial branch blocks Last Documented On 2 10:14AM ; [facility] Pain Management [facility] - [address] [place] [address] - Spondylosis w/o myelopathy or radiculopathy, lumbar region Note: consent for bilateral L3, L4. L5 medial branch blocks Last Documented On 3 10:10AM ; [facility] Psychiatrist HARLEEN COULTER PMHNP - [facility] - [address] [place] [address] - Chronic pain syndrome Note: Psychological evaluati on for implantable device therapies (spinal cord stimulation).Diagnosis: chronic pain syndrome, lumbosacral spondylosis with stenosis and neurogenic claudication recalcitrant to conservative care. Last Documented On 4 3:51PM ; [facility] Counselor [facility] - [address] [place] [address] - Chronic pain syndrome [facility] Last Documented On 4 1:40PM ; [facility] Education and Decision Aids were provided during visit for: Pill Count: 25 HYSINGLA Last Documented On 4 8:54AM ; [facility] Pill Count: two HYSINGLA Last Documented On 4 9:14AM ; [facility] Pill Count: HYDROCODONE ~out of medication Last Documented On 4 9:14AM ; [facility] Pill Count: two HYSINGLA Last Documented On 4 11:00AM ; [facility] Pill Count: HYDROCODONE ~out of medication Last Documented On 4 11:43AM ; [facility] Pill Count: HYDROCODONE ~out of medication Last Documented On 4 9:34AM ; [facility] Pill Count: HYDROCODONE ~out of medication Last Documented On 4 10:37AM ; [facility] Pill Count: HYDROCODONE ~out of medication Last Documented On 4 1:44PM ; [facility] Pill Count: two HYDROCODONE Last Documented On 4 1:15PM ; [facility] Patient education about adve rse reactions to medication Last Documented On 3 10:43AM ; [facility] Reviewed side effects and Ri sks/Benefits analysis Last Documented On 3 10:43AM ; [facility] Pill Count: 19 HYDROCODONE Last Documented On 3 2:06PM ; [facility] Pill Count: 19 HYDROCODONE Last Documented On 3 10:39AM ; [facility] Pill Count: 50 HYDROCODONE Last Documented On 3 10:50AM ; [facility] Pill Count: one HYDROCODONE Last Documented On 3 3:49PM ; [facility] Pill Count: six HYDROCODONE Last Documented On 3 10:14AM ; [facility] Pill Count: 38 HYDROCODONE Last Documented On 3 1:23PM ; [facility] Pill Count: 49 HYDROCODONE Last Documented On 2 10:01AM ; [facility] Pill Count: 62 HYDROCODONE Last Documented On 2 3:28PM ; [facility] Pill Count: 61 HYDROCODONE Last Documented On 2 4:14PM ; [facility] Pill Count: 62 HYDROCODONE Last Documented On 2 4:21PM ; [facility] Pill Count: Patient did not bring pain medication to appointment for pill count, per policy. Advised in order to continue to safely prescribe opioids, medication must be brought to each appointment Last Documented On 2 4:14PM ; [facility] Pill Count: 82 HYDROCODONE Last Documented On 2 3:55PM ; [facility] Pill Count: Patient did not bring pain medication to appointment for pill count, per policy. Advised in order to continue to safely prescribe opioids, medication must be brought to each appointment Last Documented On 2 4:19PM ; [facility] Pill Count: Patient did not bring pain medication to appointment for pill count, per policy. Advised in order to continue to safely prescribe opioids, medication must be brought to each appointment Last Documented On 1 1:41PM ; [facility] Pill Count: five Not Appropr iate Had surgery and did not fill the pain med that was given after suregery Last Documented On 1 1:11PM ; [facility] Pill Count: 21 Appropriate Last Documented On 1 3:19PM ; [facility] Pill Count: 21 Appropriate Last Documented On 1 5:34PM ; [facility] Pill Count: 21 Appropriate Last Documented On 1 5:23PM ; [facility] Pill Count: ten Not Appropri ate ; discussed taking only as prescribed for back pain not myalgia symptoms related to covid Last Documented On 1 3:58PM ; [facility] Pill Count: 0 Last Documented On 0 3:51PM ; [facility] Pill Count: Patient did not bring pain medication to appointment for pill count, per policy. Advised in order to continue to safely prescribe opioids, medication must be brought to each appointment Last Documented On 0 3:02PM ; [facility] Pill Count: two Appropriate Last Documented On 0 7:51AM ; [facility] Pill Count: seven Appropriat e Last Documented On 0 10:51AM ; [facility] Pill Count: three Appropriat e Last Documented On 0 12:30PM ; [facility] Pill Count: seven Appropriat e Last Documented On 9 9:53AM ; [facility] Assessments Includes: Assessments for all patient encounters Findings Encounter Date Chronic pain syndrome TELEHEALTH with FELISHA Hemant العراقي [facility] 02/01/2024 Last Documented On 4 9:17AM ; [facility] Fibromyalgia TELEHEALTH with FELISHA L ARTHUR [facility] 02/01/2024 Last Documented On 4 9:17AM ; [facility] manager terminal use of opiate analgesic TELEHEALTH wit h FELISHA L ARTHUR [facility] 02/01/2024 Last Documented On 4 9:17AM ; [facility] Lumbar spondylosis with radiculopathy TE LEHEALTH with FELISHA L ARTHUR [facility] 02/01/2024 Last Documented On 4 9:17AM ; [facility] Lumbar stenosis with neuroge michelle claudication TELEHEALTH with FELISHA L ARTHUR [facility] 02/01/2024 Last Documented On 4 9:17AM ; [facility] Sacroiliitis TELEHEALTH with FELISHA L ARTHUR ANP-BC 02/01/2024 Last Documented On 4 9:17AM ; [facility] Systemic lupus erythematosus TELEHEALTH with NAVARRO MOISES L ARTHUR ANP-BC 02/01/2024 Last Documented On 4 9:17AM ; [facility] Chronic pain syndrome TELEHEALTH with FELISHA L B DULCE MARIA ANP-BC 12/17/2023 Last Documented On 4 1:18PM ; [facility] Fibromyalgia TELEHEALTH with FELISHA L ARTHUR ANP-BC 12/17/2023 Last Documented On 4 1:18PM ; [facility] manager terminal use of opiate analgesic TELEHEALTH wit h FELISHA L ARTHUR ANP-BC 12/17/2023 Last Documented On 4 1:18PM ; [facility] Lumbar spondylosis with radiculopathy TE LEHEALTH with FELISHA L ARTHUR ANP-BC 12/17/2023 Last Documented On 4 1:18PM ; [facility] Lumbar stenosis with neuroge michelle claudication TELEHEALTH with FELISHA L ARTHUR ANP-BC 12/17/2023 Last Documented On 4 1:18PM ; [facility] Sacroiliitis TELEHEALTH with FELISHA L ARTHUR ANP-BC 12/17/2023 Last Documented On 4 1:18PM ; [facility] Systemic lupus erythematosus TELEHEALTH with NAVARRO MOISES L ARTHUR ANP-BC 12/17/2023 Last Documented On 4 1:18PM ; [facility] Chronic pain syndrome TELEHEALTH with FELISHA L B DULCE MARIA ANP-BC 11/30/2023 Last Documented On 4 9:40AM ; [facility] Fibromyalgia TELEHEALTH with FELISHA L ARTHUR ANP-BC 11/30/2023 Last Documented On 4 9:40AM ; [facility] manager terminal use of opiate analgesic TELEHEALTH wit h FELISHA L ARTHUR ANP-BC 11/30/2023 Last Documented On 4 9:40AM ; [facility] Lumbar spondylosis with radiculopathy TE LEHEALTH with FELISHA L ARTHUR ANP-BC 11/30/2023 Last Documented On 4 9:40AM ; [facility] Lumbar stenosis with neuroge michelle claudication TELEHEALTH with FELISHA L ARTHUR ANP-BC 11/30/2023 Last Documented On 4 9:40AM ; [facility] Sacroiliitis TELEHEALTH with FELISHA L ARTHUR ANP-BC 11/30/2023 Last Documented On 4 9:40AM ; [facility] Systemic lupus erythematosus TELEHEALTH with NAVARRO MOISES L ARTHUR ANP-BC 11/30/2023 Last Documented On 4 9:40AM ; [facility] Chronic pain syndrome PAIN MANAGEMENT FOLLOW UP with MAX SINGLETON MD 11/23/2023 Last Documented On 4 6:28PM ; [facility] Fibromyalgia PAIN MANAGEMENT FOLLOW UP with Akosua SINGLETON MD 11/23/2023 Last Documented On 4 6:28PM ; [facility] manager terminal use of opiate analgesic PAIN M ANAGEMENT FOLLOW UP with MAX SINGLETON MD 11/23/2023 Last Documented On 4 6:28PM ; [facility] Lumbar spondylosis with radiculopathy PA IN MANAGEMENT FOLLOW UP with MAX SINGLETON MD 11/23/2023 Last Documented On 4 6:28PM ; [facility] Lumbar stenosis with neuroge michelle claudication PAIN MANAGEMENT FOLLOW UP with MAX SINGLETON MD 11/23/2023 Last Documented On 4 6:28PM ; [facility] Sacroiliitis PAIN MANAGEMENT FOLLOW UP with Akosua SINGLETON MD 11/23/2023 Last Documented On 4 6:28PM ; [facility] Systemic lupus erythematosus PAIN MANAGE MENT FOLLOW UP with MAX SINGLETON MD 11/23/2023 Last Documented On 4 6:28PM ; [facility] Chronic pain syndrome PAIN MANAGEMENT FO LLOW UP with FELISHA L ARTHUR ANP-BC 11/07/2023 Last Documented On 4 3:07PM ; [facility] Fibromyalgia PAIN MANAGEMENT FOLLOW UP with T MULU L ARTHUR ANP-BC 11/07/2023 Last Documented On 4 3:07PM ; [facility] senior care use of opiate analgesic PAIN M ANAGEMENT FOLLOW UP with FELISHA L ARTHUR ANP-BC 11/07/2023 Last Documented On 4 3:07PM ; [facility] Lumbar spondylosis with radiculopathy PA IN MANAGEMENT FOLLOW UP with FELISHA L ARTHUR ANP-BC 11/07/2023 Last Documented On 4 3:07PM ; [facility] Lumbar stenosis with neuroge michelle claudication PAIN MANAGEMENT FOLLOW UP with FELISHA L ARTHUR ANP-BC 11/07/2023 Last Documented On 4 3:07PM ; [facility] Sacroiliitis PAIN MANAGEMENT FOLLOW UP with T MULU L ARTHUR ANP-BC 11/07/2023 Last Documented On 4 3:07PM ; [facility] Systemic lupus erythematosus PAIN MANAGE MENT FOLLOW UP with FELISHA L ARTHUR ANP-BC 11/07/2023 Last Documented On 4 3:07PM ; [facility] Chronic pain syndrome PAIN MANAGEMENT FO LLOW UP with FELISHA L ARTHUR ANP-BC 10/08/2023 Last Documented On 4 1:55PM ; [facility] Fibromyalgia PAIN MANAGEMENT FOLLOW UP with T MULU L ARTHUR ANP-BC 10/08/2023 Last Documented On 4 1:55PM ; [facility] manager terminal use of opiate analgesic PAIN M ANAGEMENT FOLLOW UP with FELISHA L ARTHUR ANP-BC 10/08/2023 Last Documented On 4 1:55PM ; [facility] Lumbar spondylosis with radiculopathy PA IN MANAGEMENT FOLLOW UP with FELISHA L ARTHUR ANP-BC 10/08/2023 Last Documented On 4 1:55PM ; [facility] Lumbar stenosis with neuroge michelle claudication PAIN MANAGEMENT FOLLOW UP with FELISHA L ARTHUR ANP-BC 10/08/2023 Last Documented On 4 1:55PM ; [facility] Sacroiliitis PAIN MANAGEMENT FOLLOW UP with Ally ROTHMAN ANP- 10/08/2023 Last Documented On 4 1:55PM ; [facility] Systemic lupus erythematosus PAIN MANAGE MENT FOLLOW UP with FELISHA ZENGS ANP- 10/08/2023 Last Documented On 4 1:55PM ; [facility] [G89.4 - Chronic pain syndro me] chronic pain syndrome PSYCH NEW PATIENT EXAM 17 YEARS AND OLDER with HARLEEN COULTER PMHNP 07/31/2023 Last Documented On 3 2:52PM ; [facility] Chronic pain syndrome PAIN MANAGEMENT FOLLOW UP with MAX SINGLETON MD 07/12/2023 Last Documented On 3 2:54PM ; [facility] Fibromyalgia PAIN MANAGEMENT FOLLOW UP with Akosua SINGLETON MD 07/12/2023 Last Documented On 3 2:54PM ; [facility] senior care use of opiate analgesic PAIN M ANAGEMENT FOLLOW UP with MAX SINGLETON MD 07/12/2023 Last Documented On 3 2:54PM ; [facility] Lumbar spondylosis with radiculopathy PA IN MANAGEMENT FOLLOW UP with MAX SINGLETON MD 07/12/2023 Last Documented On 3 2:54PM ; [facility] Lumbar stenosis with neuroge michelle claudication PAIN MANAGEMENT FOLLOW UP with MAX SINGLETON MD 07/12/2023 Last Documented On 3 2:54PM ; [facility] Sacroiliitis PAIN MANAGEMENT FOLLOW UP with Akosua SINGLETON MD 07/12/2023 Last Documented On 3 2:54PM ; [facility] Systemic lupus erythematosus PAIN MANAGE MENT FOLLOW UP with MAX SINGLETON MD 07/12/2023 Last Documented On 3 2:54PM ; [facility] Chronic pain syndrome PAIN MANAGEMENT FO LLOW [facility] Last Documented On 3 11:17AM ; [facility] Fibromyalgia PAIN MANAGEMENT FOLLOW UP with [facility]- 07/05/2023 Last Documented On 3 11:17AM ; [facility] senior care use of opiate analgesic PAIN M ANAGEMENT FOLLOW UP with FELISHA L ARTHUR ANP-BC 07/05/2023 Last Documented On 3 11:17AM ; [facility] Lumbar spondylosis with radiculopathy PA IN MANAGEMENT FOLLOW UP with FELISHA L ARTHUR ANP-BC 07/05/2023 Last Documented On 3 11:17AM ; [facility] Lumbar stenosis with neuroge michelle claudication PAIN MANAGEMENT FOLLOW UP with FELISHA L ARTHUR ANP-BC 07/05/2023 Last Documented On 3 11:17AM ; [facility] Sacroiliitis PAIN MANAGEMENT FOLLOW UP with T MULU L ARTHUR ANP-BC 07/05/2023 Last Documented On 3 11:17AM ; [facility] Systemic lupus erythematosus PAIN MANAGE MENT FOLLOW UP with FELISHA L ARTHUR ANP-BC 07/05/2023 Last Documented On 3 11:17AM ; [facility] Cervical spondylosis without myelopathy or radiculopathy TELEHEALTH with FELISHA L ARTHUR ANP-BC 06/05/2023 Last Documented On 3 12:57PM ; [facility] Chronic pain syndrome TELEHEALTH with FELISHA L B DULCE MARIA ANP-BC 06/05/2023 Last Documented On 3 12:57PM ; [facility] Fibromyalgia TELEHEALTH with FELISHA L ARTHUR ANP-BC 06/05/2023 Last Documented On 3 12:57PM ; [facility] manager terminal use of opiate analgesic TELEHEALTH wit h FELISHA L ARTHUR ANP-BC 06/05/2023 Last Documented On 3 12:57PM ; [facility] Lumbar spondylosis with radiculopathy TE LEHEALTH with FELISHA L ARTHUR ANP-BC 06/05/2023 Last Documented On 3 12:57PM ; [facility] Lumbar stenosis with neuroge michelle claudication TELEHEALTH with FELIHSA L ARTHUR ANP-BC 06/05/2023 Last Documented On 3 12:57PM ; [facility] Sacroiliitis TELEHEALTH with FELISHA L ARTHUR ANP-BC 06/05/2023 Last Documented On 3 12:57PM ; [facility] Systemic lupus erythematosus TELEHEALTH with NAVARRO MOISES L ARTHUR ANP-BC 06/05/2023 Last Documented On 3 12:57PM ; [facility] Cervical spondylosis without myelopathy or radiculopathy PAIN MANAGEMENT FOLLOW UP with FELISHA L ARTHUR ANP-BC 03/23/2023 Last Documented On 3 11:03AM ; [facility] Chronic pain syndrome PAIN MANAGEMENT FO LLOW UP with FELISHA L ARTHUR ANP-BC 03/23/2023 Last Documented On 3 11:03AM ; [facility] Fibromyalgia PAIN MANAGEMENT FOLLOW UP with T MULU L ARTHUR ANP-BC 03/23/2023 Last Documented On 3 11:03AM ; [facility] senior care use of opiate analgesic PAIN M ANAGEMENT FOLLOW UP with FELISHA L ARTHUR ANP-BC 03/23/2023 Last Documented On 3 11:03AM ; [facility] Lumbar spondylosis with radiculopathy PA IN MANAGEMENT FOLLOW UP with FELISHA L ARTHUR ANP-BC 03/23/2023 Last Documented On 3 11:03AM ; [facility] Lumbar stenosis with neuroge michelle claudication PAIN MANAGEMENT FOLLOW UP with FELISHA L ARTHUR ANP-BC 03/23/2023 Last Documented On 3 11:03AM ; [facility] Sacroiliitis PAIN MANAGEMENT FOLLOW UP with T MULU L ARTHUR ANP-BC 03/23/2023 Last Documented On 3 11:03AM ; [facility] Systemic lupus erythematosus PAIN MANAGE MENT FOLLOW UP with FELISHA L ARTHUR ANP-BC 03/23/2023 Last Documented On 3 11:03AM ; [facility] Cervical spondylosis without myelopathy or radiculopathy PAIN MANAGEMENT FOLLOW UP with FELISHA L ARTHUR ANP-BC 02/05/2023 Last Documented On 3 10:23AM ; [facility] Chronic pain syndrome PAIN MANAGEMENT FO LLOW UP with FELISHA L ARTHUR ANP-BC 02/05/2023 Last Documented On 3 10:23AM ; [facility] Fibromyalgia PAIN MANAGEMENT FOLLOW UP with T MULU L ARTHUR ANP-BC 02/05/2023 Last Documented On 3 10:23AM ; [facility] senior care use of opiate analgesic PAIN M ANAGEMENT FOLLOW UP with FELISHA L ARTHUR ANP-BC 02/05/2023 Last Documented On 3 10:23AM ; [facility] Lumbar spondylosis with radiculopathy PA IN MANAGEMENT FOLLOW UP with FELISHA L ARTHUR ANP-BC 02/05/2023 Last Documented On 3 10:23AM ; [facility] Lumbar stenosis with neuroge michelle claudication PAIN MANAGEMENT FOLLOW UP with FELISHA L ARTHUR ANP-BC 02/05/2023 Last Documented On 3 10:23AM ; [facility] Sacroiliitis PAIN MANAGEMENT FOLLOW UP with T MULU L ARTHUR ANP-BC 02/05/2023 Last Documented On 3 10:23AM ; [facility] Systemic lupus erythematosus PAIN MANAGE MENT FOLLOW UP with FELISHA L ARTHUR ANP-BC 02/05/2023 Last Documented On 3 10:23AM ; [facility] Cervical spondylosis without myelopathy or radiculopathy PAIN MANAGEMENT FOLLOW UP with FELISHA L ARTHUR ANP-BC 11/28/2022 Last Documented On 3 2:12PM ; [facility] Cervicalgia PAIN MANAGEMENT FOLLOW UP with T MULU L ARTHUR ANP-BC 11/28/2022 Last Documented On 3 2:12PM ; [facility] Chronic pain syndrome PAIN MANAGEMENT FO LLOW UP with FELISHA L ARTHUR ANP-BC 11/28/2022 Last Documented On 3 2:12PM ; [facility] Fibromyalgia PAIN MANAGEMENT FOLLOW UP with T MULU L ARTHUR ANP-BC 11/28/2022 Last Documented On 3 2:12PM ; [facility] Localized lumbar osteoarthritis PAIN MAN AGEMENT FOLLOW UP with FELISHA L ARTHUR ANP-BC 11/28/2022 Last Documented On 3 2:12PM ; [facility] manager terminal use of opiate analgesic PAIN M ANAGEMENT FOLLOW UP with FELISHA L ARTHUR ANP-BC 11/28/2022 Last Documented On 3 2:12PM ; [facility] Lumbosacral spinal stenosis PAIN MANAGEM ENT FOLLOW UP with FELISHA L ARTHUR ANP-BC 11/28/2022 Last Documented On 3 2:12PM ; [facility] Sacroiliitis PAIN MANAGEMENT FOLLOW UP with T MULU L ARTHUR ANP-BC 11/28/2022 Last Documented On 3 2:12PM ; [facility] Systemic lupus erythematosus PAIN MANAGE MENT FOLLOW UP with FELISHA L ARTHUR ANP-BC 11/28/2022 Last Documented On 3 2:12PM ; [facility] Cervical spondylosis without myelopathy or radiculopathy PAIN MANAGEMENT FOLLOW UP with FELISHA L ARTHUR ANP-BC 08/17/2022 Last Documented On 2 10:33AM ; [facility] Cervicalgia PAIN MANAGEMENT FOLLOW UP with T MULU L ARTHUR ANP-BC 08/17/2022 Last Documented On 2 10:33AM ; [facility] Chronic pain syndrome PAIN MANAGEMENT FO LLOW UP with FELISHA L ARTHUR ANP-BC 08/17/2022 Last Documented On 2 10:33AM ; [facility] Fibromyalgia PAIN MANAGEMENT FOLLOW UP with T MULU L ARTHUR ANP-BC 08/17/2022 Last Documented On 2 10:33AM ; [facility] Localized lumbar osteoarthritis PAIN MAN AGEMENT FOLLOW UP with FELISHA L ARTHUR ANP-BC 08/17/2022 Last Documented On 2 10:33AM ; [facility] manager terminal use of opiate analgesic PAIN M ANAGEMENT FOLLOW UP with FELISHA L ARTHUR ANP-BC 08/17/2022 Last Documented On 2 10:33AM ; [facility] Lumbosacral spinal stenosis PAIN MANAGEM ENT FOLLOW UP with FELISHA L ARTHUR ANP-BC 08/17/2022 Last Documented On 2 10:33AM ; [facility] Sacroiliitis PAIN MANAGEMENT FOLLOW UP with T MULU L ARTHUR ANP-BC 08/17/2022 Last Documented On 2 10:33AM ; [facility] Systemic lupus erythematosus PAIN MANAGE MENT FOLLOW UP with FELISHA L ARTHUR ANP-BC 08/17/2022 Last Documented On 2 10:33AM ; [facility] Cervical spondylosis without myelopathy or radiculopathy PAIN MANAGEMENT FOLLOW UP with FELISHA L ARTHUR ANP-BC 05/09/2022 Last Documented On 2 3:54PM ; [facility] Cervicalgia PAIN MANAGEMENT FOLLOW UP with T MULU L ARTHUR ANP-BC 05/09/2022 Last Documented On 2 3:54PM ; [facility] Chronic pain syndrome PAIN MANAGEMENT FO LLOW UP with FELISHA L ARTHUR ANP-BC 05/09/2022 Last Documented On 2 3:54PM ; [facility] Fibromyalgia PAIN MANAGEMENT FOLLOW UP with T MULU L ARTHUR ANP-BC 05/09/2022 Last Documented On 2 3:54PM ; [facility] Localized lumbar osteoarthritis PAIN MAN AGEMENT FOLLOW UP with FELISHA L ARTHUR ANP-BC 05/09/2022 Last Documented On 2 3:54PM ; [facility] senior care use of opiate analgesic PAIN M ANAGEMENT FOLLOW UP with FELISHA L ARTHUR ANP-BC 05/09/2022 Last Documented On 2 3:54PM ; [facility] Lumbosacral spinal stenosis PAIN MANAGEM ENT FOLLOW UP with FELISHA L ARTHUR ANP-BC 05/09/2022 Last Documented On 2 3:54PM ; [facility] Sacroiliitis PAIN MANAGEMENT FOLLOW UP with T MULU L ARTHUR ANP-BC 05/09/2022 Last Documented On 2 3:54PM ; [facility] Systemic lupus erythematosus PAIN MANAGE MENT FOLLOW UP with FELISHA L ARTHUR ANP-BC 05/09/2022 Last Documented On 2 3:54PM ; [facility] Cervical spondylosis without myelopathy or radiculopathy PAIN MANAGEMENT FOLLOW UP with FELISHA L ARTHUR ANP-BC 02/09/2022 Last Documented On 2 4:29PM ; [facility] Cervicalgia PAIN MANAGEMENT FOLLOW UP with T MULU L ARTHUR ANP-BC 02/09/2022 Last Documented On 2 4:29PM ; [facility] Chronic pain syndrome PAIN MANAGEMENT FO LLOW UP with FELISHA L ARTHUR ANP-BC 02/09/2022 Last Documented On 2 4:29PM ; [facility] Fibromyalgia PAIN MANAGEMENT FOLLOW UP with T MULU L ARTHUR ANP-BC 02/09/2022 Last Documented On 2 4:29PM ; [facility] Localized lumbar osteoarthritis PAIN MAN AGEMENT FOLLOW UP with FELISHA L ARTHUR ANP-BC 02/09/2022 Last Documented On 2 4:29PM ; [facility] senior care use of opiate analgesic PAIN M ANAGEMENT FOLLOW UP with FELISHA L ARTHUR ANP-BC 02/09/2022 Last Documented On 2 4:29PM ; [facility] Lumbosacral spinal stenosis PAIN MANAGEM ENT FOLLOW UP with FELISHA L ARTHUR ANP-BC 02/09/2022 Last Documented On 2 4:29PM ; [facility] Sacroiliitis PAIN MANAGEMENT FOLLOW UP with T MULU L ARTHUR ANP-BC 02/09/2022 Last Documented On 2 4:29PM ; [facility] Systemic lupus erythematosus PAIN MANAGE MENT FOLLOW UP with FELISHA L ARTHUR ANP-BC 02/09/2022 Last Documented On 2 4:29PM ; [facility] Cervical spondylosis without myelopathy or radiculopathy PAIN MANAGEMENT FOLLOW UP with FELISHA L ARTHUR ANP-BC 11/28/2021 Last Documented On 2 4:53PM ; [facility] Cervicalgia PAIN MANAGEMENT FOLLOW UP with T MULU L ARTHUR ANP-BC 11/28/2021 Last Documented On 2 4:53PM ; [facility] Chronic pain syndrome PAIN MANAGEMENT FO LLOW UP with FELISHA L ARTHUR ANP-BC 11/28/2021 Last Documented On 2 4:53PM ; [facility] Fibromyalgia PAIN MANAGEMENT FOLLOW UP with T MULU L ARTHUR ANP-BC 11/28/2021 Last Documented On 2 4:53PM ; [facility] Localized lumbar osteoarthritis PAIN MAN AGEMENT FOLLOW UP with FELISHA L ARTHUR ANP-BC 11/28/2021 Last Documented On 2 4:53PM ; [facility] senior care use of opiate analgesic PAIN M ANAGEMENT FOLLOW UP with FELISHA L ARTHUR ANP-BC 11/28/2021 Last Documented On 2 4:53PM ; [facility] Lumbosacral spinal stenosis PAIN MANAGEM ENT FOLLOW UP with FELISHA L ARTHUR ANP-BC 11/28/2021 Last Documented On 2 4:53PM ; [facility] Sacroiliitis PAIN MANAGEMENT FOLLOW UP with T MULU L ARTHUR ANP-BC 11/28/2021 Last Documented On 2 4:53PM ; [facility] Systemic lupus erythematosus PAIN MANAGE MENT FOLLOW UP with FELISHA L ARTHUR ANP-BC 11/28/2021 Last Documented On 2 4:53PM ; [facility] Cervical spondylosis without myelopathy or radiculopathy PAIN MANAGEMENT FOLLOW UP with FELISHA L ARTHUR ANP-BC 09/21/2021 Last Documented On 2 8:49AM ; [facility] Cervicalgia PAIN MANAGEMENT FOLLOW UP with T MULU L ARTHUR ANP-BC 09/21/2021 Last Documented On 2 8:49AM ; [facility] Chronic pain syndrome PAIN MANAGEMENT FO LLOW UP with FELISHA L ARTHUR ANP-BC 09/21/2021 Last Documented On 2 8:49AM ; [facility] Fibromyalgia PAIN MANAGEMENT FOLLOW UP with T MULU L ARTHUR ANP-BC 09/21/2021 Last Documented On 2 8:49AM ; [facility] Localized lumbar osteoarthritis PAIN MAN AGEMENT FOLLOW UP with FELISHA L ARTHUR ANP-BC 09/21/2021 Last Documented On 2 8:49AM ; [facility] senior care use of opiate analgesic PAIN M ANAGEMENT FOLLOW UP with FELISHA L ARTHUR ANP-BC 09/21/2021 Last Documented On 2 8:49AM ; [facility] Lumbosacral spinal stenosis PAIN MANAGEM ENT FOLLOW UP with FELISHA L ARTHUR ANP-BC 09/21/2021 Last Documented On 2 8:49AM ; [facility] Sacroiliitis PAIN MANAGEMENT FOLLOW UP with T MULU L ARTHUR ANP-BC 09/21/2021 Last Documented On 2 8:49AM ; [facility] Systemic lupus erythematosus PAIN MANAGE MENT FOLLOW UP with FELISHA L ARTHUR ANP-BC 09/21/2021 Last Documented On 2 8:49AM ; [facility] Cervical spondylosis without myelopathy or radiculopathy PAIN MANAGEMENT FOLLOW UP with FELISHA L ARTHUR ANP-BC 06/14/2021 Last Documented On 1 9:23AM ; [facility] Cervicalgia PAIN MANAGEMENT FOLLOW UP with T MULU L ARTHUR ANP-BC 06/14/2021 Last Documented On 1 9:23AM ; [facility] Chronic pain syndrome PAIN MANAGEMENT FO LLOW UP with FELISHA L ARTHUR ANP-BC 06/14/2021 Last Documented On 1 9:23AM ; [facility] Fibromyalgia PAIN MANAGEMENT FOLLOW UP with T MULU L ARTHUR ANP-BC 06/14/2021 Last Documented On 1 9:23AM ; [facility] Localized lumbar osteoarthritis PAIN MAN AGEMENT FOLLOW UP with FELISHA L ARTHUR ANP-BC 06/14/2021 Last Documented On 1 9:23AM ; [facility] manager terminal use of opiate analgesic PAIN M ANAGEMENT FOLLOW UP with FELISHA L ARTHUR ANP-BC 06/14/2021 Last Documented On 1 9:23AM ; [facility] Lumbosacral spinal stenosis PAIN MANAGEM ENT FOLLOW UP with FELISHA L ARTHUR ANP-BC 06/14/2021 Last Documented On 1 9:23AM ; [facility] Sacroiliitis PAIN MANAGEMENT FOLLOW UP with T MULU L ARTHUR ANP-BC 06/14/2021 Last Documented On 1 9:23AM ; [facility] Systemic lupus erythematosus PAIN MANAGE MENT FOLLOW UP with FELISHA L ARTHUR ANP-BC 06/14/2021 Last Documented On 1 9:23AM ; [facility] Cervicalgia PAIN MANAGEMENT FOLLOW UP with T MULU L ARTHUR ANP-BC 04/13/2021 Last Documented On 1 12:19PM ; [facility] Chronic pain syndrome PAIN MANAGEMENT FO LLOW UP with FELISHA L ARTHUR ANP-BC 04/13/2021 Last Documented On 1 12:19PM ; [facility] Fibromyalgia PAIN MANAGEMENT FOLLOW UP with T MULU L ARTHUR ANP-BC 04/13/2021 Last Documented On 1 12:19PM ; [facility] Localized lumbar osteoarthritis PAIN MAN AGEMENT FOLLOW UP with FELISHA L ARTHUR ANP-BC 04/13/2021 Last Documented On 1 12:19PM ; [facility] senior care use of opiate analgesic PAIN M ANAGEMENT FOLLOW UP with FELISHA L ARTHUR ANP-BC 04/13/2021 Last Documented On 1 12:19PM ; [facility] Lumbosacral spinal stenosis PAIN MANAGEM ENT FOLLOW UP with FELISHA L ARTHUR ANP-BC 04/13/2021 Last Documented On 1 12:19PM ; [facility] Sacroiliitis PAIN MANAGEMENT FOLLOW UP with T MULU L ARTHUR ANP-BC 04/13/2021 Last Documented On 1 12:19PM ; [facility] Systemic lupus erythematosus PAIN MANAGE MENT FOLLOW UP with FELISHA L ARTHUR ANP-BC 04/13/2021 Last Documented On 1 12:19PM ; [facility] Cervicalgia PAIN MANAGEMENT FOLLOW UP with T MULU L ARTHUR ANP-BC 2021 Last Documented On 1 4:57PM ; [facility] Chronic pain syndrome PAIN MANAGEMENT FO LLOW UP with FELISHA L ARTHUR ANP-BC 2021 Last Documented On 1 4:57PM ; [facility] Fibromyalgia PAIN MANAGEMENT FOLLOW UP with T MULU L ARTHUR ANP-BC 2021 Last Documented On 1 4:57PM ; [facility] Localized lumbar osteoarthritis PAIN MAN AGEMENT FOLLOW UP with FELISHA L ARTHUR ANP-BC 2021 Last Documented On 1 4:57PM ; [facility] senior care use of opiate analgesic PAIN M ANAGEMENT FOLLOW UP with FELISHA L ARTHUR ANP-BC 2021 Last Documented On 1 4:57PM ; [facility] Lumbosacral spinal stenosis PAIN MANAGEM ENT FOLLOW UP with FELISHA L ARTHUR ANP-BC 2021 Last Documented On 1 4:57PM ; [facility] Sacroiliitis PAIN MANAGEMENT FOLLOW UP with T MULU L ARTHUR ANP-BC 2021 Last Documented On 1 4:57PM ; [facility] Systemic lupus erythematosus PAIN MANAGE MENT FOLLOW UP with FELISHA L ARTHUR ANP-BC 2021 Last Documented On 1 4:57PM ; [facility] Cervicalgia PAIN MANAGEMENT FOLLOW UP with T MULU L ARTHUR ANP-BC 01/04/2021 Last Documented On 1 5:35PM ; [facility] Chronic pain syndrome PAIN MANAGEMENT FO LLOW UP with FELISHA L ARTHUR ANP-BC 01/04/2021 Last Documented On 1 5:35PM ; [facility] Fibromyalgia PAIN MANAGEMENT FOLLOW UP with T MULU L ARTHUR ANP-BC 01/04/2021 Last Documented On 1 5:35PM ; [facility] Localized lumbar osteoarthritis PAIN MAN AGEMENT FOLLOW UP with FELISHA L ARTHUR ANP- 01/04/2021 Last Documented On 1 5:35PM ; [facility] manager terminal use of opiate analgesic PAIN M ANAGEMENT FOLLOW UP with FELISHA L ARTHUR ANP- 01/04/2021 Last Documented On 1 5:35PM ; [facility] Lumbosacral spinal stenosis PAIN MANAGEM ENT FOLLOW UP with FELISHA L ARTHUR ANP- 01/04/2021 Last Documented On 1 5:35PM ; [facility] Sacroiliitis PAIN MANAGEMENT FOLLOW UP with T MULU L ARTHUR ANP- 01/04/2021 Last Documented On 1 5:35PM ; [facility] Systemic lupus erythematosus PAIN MANAGE MENT FOLLOW UP with FELISHA L ARTHUR ANP- 01/04/2021 Last Documented On 1 5:35PM ; [facility] Chronic pain syndrome PAIN MANAGEMENT FO LLOW UP with FELISHA L ARTHUR [facility] 10/07/2020 Last Documented On 1 8:11AM ; [facility] Fibromyalgia PAIN MANAGEMENT FOLLOW UP with T MULU L ARTHUR ANP- 10/07/2020 Last Documented On 1 8:11AM ; [facility] Lumbosacral spinal stenosis PAIN MANAGEM ENT [facility] Last Documented On 1 8:11AM ; [facility] Sacroiliitis PAIN MANAGEMENT FOLLOW UP with T MULU L ARTHUR [facility] 10/07/2020 Last Documented On 1 8:11AM ; [facility] Systemic lupus erythematosus PAIN MANAGE MENT FOLLOW [facility] Last Documented On 1 8:11AM ; [facility] Chronic pain syndrome TELEHEALTH with FELISHA Hemant العراقي [facility] 09/09/2020 Last Documented On 1 4:00PM ; [facility] Fibromyalgia TELEHEALTH with FELISHA L ARTHUR [facility] 09/09/2020 Last Documented On 1 4:00PM ; [facility] Lumbosacral spinal stenosis TELEHEALTH with TAMM IE L ARTHUR ANP-BC 09/09/2020 Last Documented On 1 4:00PM ; [facility] Sacroiliitis TELEHEALTH with FELISHA L ARTHUR ANP-BC 09/09/2020 Last Documented On 1 4:00PM ; [facility] Systemic lupus erythematosus TELEHEALTH with NAVARRO MOISES L ARTHUR ANP-BC 09/09/2020 Last Documented On 1 4:00PM ; [facility] Chronic pain syndrome PAIN MANAGEMENT FO LLOW UP with FELISHA L ARTHUR ANP-BC 06/10/2020 Last Documented On 0 12:01PM ; [facility] Fibromyalgia PAIN MANAGEMENT FOLLOW UP with T MULU L ARTHUR ANP-BC 06/10/2020 Last Documented On 0 12:01PM ; [facility] Lumbosacral spinal stenosis PAIN MANAGEM ENT FOLLOW UP with FELISHA L ARTHUR ANP-BC 06/10/2020 Last Documented On 0 12:01PM ; [facility] Sacroiliitis PAIN MANAGEMENT FOLLOW UP with T MULU L ARTHUR ANP-BC 06/10/2020 Last Documented On 0 12:01PM ; [facility] Systemic lupus erythematosus PAIN MANAGE MENT FOLLOW UP with FELISHA L ARTHUR ANP-BC 06/10/2020 Last Documented On 0 12:01PM ; [facility] Chronic pain syndrome PAIN MANAGEMENT FO LLOW UP with FELISHA L ARTHUR ANP-BC 05/11/2020 Last Documented On 0 3:30PM ; [facility] Fibromyalgia PAIN MANAGEMENT FOLLOW UP with T MULU L ARTHUR ANP-BC 05/11/2020 Last Documented On 0 3:30PM ; [facility] Lumbosacral spinal stenosis PAIN MANAGEM ENT FOLLOW UP with FELISHA L ARTHUR ANP-BC 05/11/2020 Last Documented On 0 3:30PM ; [facility] Sacroiliitis PAIN MANAGEMENT FOLLOW UP with T MULU L ARTHUR ANP-BC 05/11/2020 Last Documented On 0 3:30PM ; [facility] Systemic lupus erythematosus PAIN MANAGE MENT FOLLOW UP with FELISHA L ARTHUR ANP-BC 05/11/2020 Last Documented On 0 3:30PM ; [facility] Chronic pain syndrome PAIN MANAGEMENT FO LLOW UP with FELISHA L ARTHUR ANP- 02/09/2020 Last Documented On 0 7:52AM ; [facility] Fibromyalgia PAIN MANAGEMENT FOLLOW UP with T MULU L ARTHUR ANP- 02/09/2020 Last Documented On 0 7:52AM ; [facility] Lumbosacral spinal stenosis PAIN MANAGEM ENT FOLLOW UP with FELISHA L ARTHUR ANP- 02/09/2020 Last Documented On 0 7:52AM ; [facility] Sacroiliitis PAIN MANAGEMENT FOLLOW UP with T MULU L ARTHUR ANP- 02/09/2020 Last Documented On 0 7:52AM ; [facility] Systemic lupus erythematosus PAIN MANAGE MENT FOLLOW UP with FELISHA L ARTHUR ANP- 02/09/2020 Last Documented On 0 7:52AM ; [facility] Chronic pain syndrome TELEHEALTH with FELISHA L B DULCE MARIA [facility] 01/08/2020 Last Documented On 0 11:01AM ; [facility] Fibromyalgia TELEHEALTH with FELISHA L ARTHUR [facility] 01/08/2020 Last Documented On 0 11:01AM ; [facility] Lumbosacral spinal stenosis [facility]HEALTH [facility]2020 Last Documented On 0 11:01AM ; [facility] Sacroiliitis TELEHEALTH [facility]2020 Last Documented On 0 11:01AM ; [facility] Systemic lupus erythematosus TELEHEALTH with NAVARRO MOISES L [facility]2020 Last Documented On 0 11:01AM ; [facility] Chronic pain syndrome PAIN MANAGEMENT FO LLOW UP [facility]2019 Last Documented On 0 12:34PM ; [facility] Fibromyalgia PAIN MANAGEMENT FOLLOW UP with T MULU L ARTHUR ANP- 10/10/2019 Last Documented On 0 12:34PM ; [facility] Lumbosacral spinal stenosis PAIN MANAGEM ENT FOLLOW UP [facility] Last Documented On 0 12:34PM ; [facility] Sacroiliitis PAIN MANAGEMENT FOLLOW UP with T MULU L ARTHUR [facility] 10/10/2019 Last Documented On 0 12:34PM ; [facility] Systemic lupus erythematosus PAIN MANAGE MENT FOLLOW UP with FELISHA L ARTHUR [facility] 10/10/2019 Last Documented On 0 12:34PM ; [facility] Chronic pain syndrome PAIN MANAGEMENT FO LLOW UP with FELISHA L ARTHUR [facility] 08/07/2019 Last Documented On 9 9:54AM ; [facility] Fibromyalgia PAIN MANAGEMENT FOLLOW UP with T MULU L ARTHUR [facility] 08/07/2019 Last Documented On 9 9:54AM ; [facility] Lumbosacral spinal stenosis PAIN MANAGEM ENT FOLLOW UP with FELISHA L ARTHUR [facility] 08/07/2019 Last Documented On 9 9:54AM ; [facility] Sacroiliitis PAIN MANAGEMENT FOLLOW UP with T MULU L ARTHUR [facility] 08/07/2019 Last Documented On 9 9:54AM ; [facility] Systemic lupus erythematosus PAIN MANAGE MENT FOLLOW UP with FELISHA L ARTHUR [facility] 08/07/2019 Last Documented On 9 9:54AM ; [facility] Chronic pain syndrome PAIN MANAGEMENT FO LLOW UP with FELISHA L ARTHRU [facility] 06/30/2019 Last Documented On 9 3:12PM ; [facility] Fibromyalgia PAIN MANAGEMENT FOLLOW UP with T MULU L ARTHUR [facility] 06/30/2019 Last Documented On 9 3:12PM ; [facility] Lumbar radiculopathy PAIN MANAGEMENT FOL LOW UP with FELISHA L ARTHUR ANP-BC 06/30/2019 Last Documented On 9 3:12PM ; [facility] Lumbosacral spinal stenosis PAIN MANAGEM ENT FOLLOW UP with FELISHA L ARTHUR ANP-BC 06/30/2019 Last Documented On 9 3:12PM ; [facility] Myalgia PAIN MANAGEMENT FOLLOW UP with T MULU L ARTHUR ANP-BC 06/30/2019 Last Documented On 9 3:12PM ; [facility] Sacroiliitis PAIN MANAGEMENT FOLLOW UP with T MULU L ARTHUR ANP-BC 06/30/2019 Last Documented On 9 3:12PM ; [facility] Systemic lupus erythematosus PAIN MANAGE MENT FOLLOW UP with FELISHA L ARTHUR ANP-BC 06/30/2019 Last Documented On 9 3:12PM ; [facility] Chronic pain syndrome PAIN MANAGEMENT FO LLOW UP with FELISHA L ARTHUR ANP-BC 04/29/2019 Last Documented On 9 3:17PM ; [facility] Fibromyalgia PAIN MANAGEMENT FOLLOW UP with T MULU L ARTHUR ANP-BC 04/29/2019 Last Documented On 9 3:17PM ; [facility] Lumbar radiculopathy PAIN MANAGEMENT FOL LOW UP with FELISHA L ARTHUR ANP-BC 04/29/2019 Last Documented On 9 3:17PM ; [facility] Lumbosacral spinal stenosis PAIN MANAGEM ENT FOLLOW UP with FELISHA L ARTHUR ANP-BC 04/29/2019 Last Documented On 9 3:17PM ; [facility] Myalgia PAIN MANAGEMENT FOLLOW UP with T MULU L ARTHUR ANP-BC 04/29/2019 Last Documented On 9 3:17PM ; [facility] Sacroiliitis PAIN MANAGEMENT FOLLOW UP with T MULU L ARTHUR ANP-BC 04/29/2019 Last Documented On 9 3:17PM ; [facility] Systemic lupus erythematosus PAIN MANAGE MENT FOLLOW UP with FELISHA L ARTHUR ANP-BC 04/29/2019 Last Documented On 9 3:17PM ; [facility] Chronic pain syndrome PAIN MANAGEMENT FO LLOW UP with FELISHA L ARTHUR ANP-BC 02/05/2019 Last Documented On 9 3:56PM ; [facility] Fibromyalgia PAIN MANAGEMENT FOLLOW UP with T MULU L ARTHUR ANP-BC 02/05/2019 Last Documented On 9 3:56PM ; [facility] Lumbar radiculopathy PAIN MANAGEMENT FOL LOW UP with FELISHA L ARTHUR ANP-BC 02/05/2019 Last Documented On 9 3:56PM ; [facility] Lumbosacral spinal stenosis PAIN MANAGEM ENT FOLLOW UP with FELISHA L ARTHUR ANP-BC 02/05/2019 Last Documented On 9 3:56PM ; [facility] Myalgia PAIN MANAGEMENT FOLLOW UP with T MULU L ARTHUR ANP-BC 02/05/2019 Last Documented On 9 3:56PM ; [facility] Sacroiliitis PAIN MANAGEMENT FOLLOW UP with T MULU L ARTHUR ANP-BC 02/05/2019 Last Documented On 9 3:56PM ; [facility] Systemic lupus erythematosus PAIN MANAGE MENT FOLLOW UP with FELISHA L ARTHUR ANP-BC 02/05/2019 Last Documented On 9 3:56PM ; [facility] Chronic pain syndrome PAIN MANAGEMENT FO LLOW UP with FELISHA L ARTHUR ANP-BC 11/28/2018 Last Documented On 9 3:13PM ; [facility] Fibromyalgia PAIN MANAGEMENT FOLLOW UP with T MULU L ARTHUR ANP-BC 11/28/2018 Last Documented On 9 3:13PM ; [facility] Lumbar radiculopathy PAIN MANAGEMENT FOL LOW UP with FELISHA L ARTHUR ANP-BC 11/28/2018 Last Documented On 9 3:13PM ; [facility] Lumbosacral spinal stenosis PAIN MANAGEM ENT FOLLOW UP with FELISHA L ARTHUR ANP-BC 11/28/2018 Last Documented On 9 3:13PM ; [facility] Myalgia PAIN MANAGEMENT FOLLOW UP with T MULU L ARTHUR ANP-BC 11/28/2018 Last Documented On 9 3:13PM ; [facility] Sacroiliitis PAIN MANAGEMENT FOLLOW UP with T MULU L ARTHUR ANP-BC 11/28/2018 Last Documented On 9 3:13PM ; [facility] Systemic lupus erythematosus PAIN MANAGE MENT FOLLOW UP with FELISHA L ARTHUR ANP-BC 11/28/2018 Last Documented On 9 3:13PM ; [facility] Chronic pain syndrome PAIN MANAGEMENT FO LLOW UP with FELISHA L ARTHUR ANP-BC 10/31/2018 Last Documented On 9 2:44PM ; [facility] Fibromyalgia PAIN MANAGEMENT FOLLOW UP with T MULU L ARTHUR ANP-BC 10/31/2018 Last Documented On 9 2:44PM ; [facility] Lumbar radiculopathy PAIN MANAGEMENT FOL LOW UP with FELISHA L ARTHUR ANP-BC 10/31/2018 Last Documented On 9 2:44PM ; [facility] Lumbosacral spinal stenosis PAIN MANAGEM ENT FOLLOW UP with FELISHA L ARTHUR ANP-BC 10/31/2018 Last Documented On 9 2:44PM ; [facility] Myalgia PAIN MANAGEMENT FOLLOW UP with T MULU L ARTHUR ANP-BC 10/31/2018 Last Documented On 9 2:44PM ; [facility] Sacroiliitis PAIN MANAGEMENT FOLLOW UP with T MULU L ARTHUR ANP-BC 10/31/2018 Last Documented On 9 2:44PM ; [facility] Systemic lupus erythematosus PAIN MANAGE MENT FOLLOW UP with FELISHA L ARTHUR ANP-BC 10/31/2018 Last Documented On 9 2:44PM ; [facility] Chronic pain syndrome PAIN MANAGEMENT NE W CONSULT with FELISHA L ARTHUR ANP-BC 10/03/2018 Last Documented On 9 9:56AM ; [facility] Localized lumbar osteoarthritis PAIN MAN AGEMENT NEW CONSULT with FELISHA L ARTHUR ANP-BC 10/03/2018 Last Documented On 9 9:56AM ; [facility] Lumbosacral spinal stenosis PAIN MANAGEM ENT NEW CONSULT with FELISHA ZENGS [facility] 10/03/2018 Last Documented On 9 9:56AM ; [facility] Myalgia PAIN MANAGEMENT NEW CONSULT with FELISHA BHATVINS [facility] 10/03/2018 Last Documented On 9 9:56AM ; [facility] Sacroiliitis PAIN MANAGEMENT NEW CONSULT with FELISHAMOISES BHATVINS [facility] 10/03/2018 Last Documented On 9 9:56AM ; [facility] Systemic lupus erythematosus PAIN MANAGE MENT NEW CONSULT with FELISHAMOISES BHATVINS [facility] 10/03/2018 Last Documented On 9 9:56AM ; [facility] Instructions Includes: Instructions for all patient encounters Education and Decision Aids were provided during visit for: Pill Count: 25 HYSINGLA Last Documented On 4 8:54AM ; [facility] Pill Count: two HYSINGLA Last Documented On 4 9:14AM ; [facility] Pill Count: HYDROCODONE ~out of medication Last Documented On 4 9:14AM ; [facility] Pill Count: two HYSINGLA Last Documented On 4 11:00AM ; [facility] Pill Count: HYDROCODONE ~out of medication Last Documented On 4 11:43AM ; [facility] Pill Count: HYDROCODONE ~out of medication Last Documented On 4 9:34AM ; [facility] Pill Count: HYDROCODONE ~out of medication Last Documented On 4 10:37AM ; [facility] Pill Count: HYDROCODONE ~out of medication Last Documented On 4 1:44PM ; [facility] Pill Count: two HYDROCODONE Last Documented On 4 1:15PM ; [facility] Patient education about adve rse reactions to medication Last Documented On 3 10:43AM ; [facility] Reviewed side effects and Ri sks/Benefits analysis Last Documented On 3 10:43AM ; [facility] Pill Count: 19 HYDROCODONE Last Documented On 3 2:06PM ; [facility] Pill Count: 19 HYDROCODONE Last Documented On 3 10:39AM ; [facility] Pill Count: 50 HYDROCODONE Last Documented On 3 10:50AM ; [facility] Pill Count: one HYDROCODONE Last Documented On 3 3:49PM ; [facility] Pill Count: six HYDROCODONE Last Documented On 3 10:14AM ; [facility] Pill Count: 38 HYDROCODONE Last Documented On 3 1:23PM ; [facility] Pill Count: 49 HYDROCODONE Last Documented On 2 10:01AM ; [facility] Pill Count: 62 HYDROCODONE Last Documented On 2 3:28PM ; [facility] Pill Count: 61 HYDROCODONE Last Documented On 2 4:14PM ; [facility] Pill Count: 62 HYDROCODONE Last Documented On 2 4:21PM ; [facility] Pill Count: Patient did not bring pain medication to appointment for pill count, per policy. Advised in order to continue to safely prescribe opioids, medication must be brought to each appointment Last Documented On 2 4:14PM ; [facility] Pill Count: 82 HYDROCODONE Last Documented On 2 3:55PM ; [facility] Pill Count: Patient did not bring pain medication to appointment for pill count, per policy. Advised in order to continue to safely prescribe opioids, medication must be brought to each appointment Last Documented On 2 4:19PM ; [facility] Pill Count: Patient did not bring pain medication to appointment for pill count, per policy. Advised in order to continue to safely prescribe opioids, medication must be brought to each appointment Last Documented On 1 1:41PM ; [facility] Pill Count: five Not Appropr iate Had surgery and did not fill the pain med that was given after suregery Last Documented On 1 1:11PM ; [facility] Pill Count: 21 Appropriate Last Documented On 1 3:19PM ; [facility] Pill Count: 21 Appropriate Last Documented On 1 5:34PM ; [facility] Pill Count: 21 Appropriate Last Documented On 1 5:23PM ; [facility] Pill Count: ten Not Appropri ate ; discussed taking only as prescribed for back pain not myalgia symptoms related to covid Last Documented On 1 3:58PM ; [facility] Pill Count: 0 Last Documented On 0 3:51PM ; [facility] Pill Count: Patient did not bring pain medication to appointment for pill count, per policy. Advised in order to continue to safely prescribe opioids, medication must be brought to each appointment Last Documented On 0 3:02PM ; [facility] Pill Count: two Appropriate Last Documented On 0 7:51AM ; [facility] Pill Count: seven Appropriat e Last Documented On 0 10:51AM ; [facility] Pill Count: three Appropriat e Last Documented On 0 12:30PM ; [facility] Pill Count: seven Appropriat e Last Documented On 9 9:53AM ; [facility] Medical Equipment - [...] SENIOR ; [facility] oxyCODONE-Acetaminophen 10-325 MG Oral Tablet 01/15/20 Provider: Diagnosis: Last Documented On 02/01/2024 8:52AM By Lilli MAK ; [facility] traZODone HCl 100 MG Oral Tablet 11/02/2023 Provider : Diagnosis: Last Documented On 4 10:13AM By Lilli MAK ; [facility] Cyclobenzaprine HCl 10 MG Oral Tablet 10/29/2023 Pro vider: REFUGIO AMARO MD Diagnosis: Last Documented On 4 10:15AM By Lilli MAK ; [facility] Ketoconazole 2% External Cream 10/29/2023 Provider: REFUGIO AMARO MD Diagnosis: Last Documented On 4 10:15AM By Lilli MAK ; [facility] hydrOXYzine HCl 50 MG Oral Tablet 10/26/2023 Provide r: Diagnosis: Last Documented On 4 10:16AM By Lilli MAK ; [facility] Anastrozole 1 MG Oral Tablet 10/24/2023 Provider: Diagnosis: Last Documented On 4 10:16AM By Lilli MAK ; [facility] FeroSul 325 (65 Fe) MG Oral Tablet 10/24/2023 Provid er: Diagnosis: Last Documented On 4 10:18AM By Lilli MAK ; [facility] Venlafaxine HCl ER 225 MG Oral Tablet Extended R elease 24 Hour 10/23/2023 Provider: Diagnosis: Last Documented On 4 10:18AM By Lilli MAK ; [facility] Pregabalin 200 MG Oral Capsule 10/08/2023 [facility] Diagnosis: Fibromyalgia TAKE 1 CAPSULE BY MOUTH TWICE DAILY Last Documented On 4 1:51PM By FELISHA WU ; [facility] Omeprazole 40 MG Oral Capsule Delayed Release 08/11/20 23 Provider: Diagnosis: Last Documented On 4 10:17AM By Lilli MAK ; [facility] Lisinopril 40 MG Oral Tablet 04/11/2023 Provider: REUFGIO AMARO MD Diagnosis: Last Documented On 3 10:40AM By Lilli MAK ; [facility] Famotidine 20 MG Oral Tablet 01/23/2023 Provider: Diagnosis: Last Documented On 02/05/2023 4:01PM By Lilli MAK ; [facility] ARIPiprazole 2 MG Oral Tablet 01/09/2023 Provider: Diagnosis: Last Documented On 02/05/2023 4:04PM By Lilli MAK ; [facility] busPIRone HCl 15 MG Oral Tablet 09/20/2022 Provider: Diagnosis: Last Documented On 02/05/2023 4:05PM By Lilli MAK ; [facility] NIFEdipine ER 30 MG Oral Tab let Extended Release 24 Hour 05/04/2022 Provider: REFUGIO AMARO MD Diagnosis: Last Documented On 05/09/2022 3:25PM By Lilli MAK ; [facility] Metoprolol Succinate ER 200M G Oral Tablet Extended Release 24 Hour 10/03/2018 Provider: Diagnosis: Last Documented On 9 3:00PM By VENKAT MAK ; [facility] Past Medications on file Hysingla ER 20 MG Oral Tablet ER 24 Hour Abuse-Deterrent 12/17/2023 - 01/18/2024 Provider: FELISHA SENIOR Diagnosis: Spinal stenosis, lumbar region with neurogenic claudication 1 tablet q 24 hours Last Documented On 4 2:27PM By FELISHA SENIOR ; [facility] Hysingla ER 20 MG Oral Tablet ER 24 Hour Abuse-Deterrent 11/14/2023 - 12/17/2023 Provider: FELISHA SENIOR Diagnosis: Spinal stenosis, lumbar region with neurogenic claudication 1 tablet q 24 hours Last Documented On 4 11:11AM By FELISHA SENIOR ; [facility] Aspirin 325 MG Oral Tablet 10/28/2023 - 11/07/2023 Pro vider: Diagnosis: Last Documented On 4 10:36AM By FELISHA SENIOR ; [facility] HYDROcodone-Acetaminophen 5- 325 MG Oral Tablet 10/08/2023 - 11/23/2023 Provider: FELISHA SENIOR Diagnosis: Other spondylosis, lumbar region 1 every 6 hours as needed for severe pain, max 4 /day Last Documented On 4 10:38AM By Yojana Shaw RN ; [facility] HYDROcodone-Acetaminophen 5- 325 MG Oral Tablet 09/06/2023 - 10/08/2023 Provider: FELISHA SENIOR Diagnosis: Other spondylosis, lumbar region 1 every 6 hours as needed for severe pain, max 4 /day Last Documented On 4 1:42PM By FELISHA SENIOR ; [facility] HYDROcodone-Acetaminophen 5- 325 MG Oral Tablet 08/06/2023 - 09/04/2023 Provider: FELISHA SENIOR Diagnosis: Other spondylosis, lumbar region 1 every 6 hours as needed for severe pain, max 4 /day Last Documented On 4 8:13AM By FELISHA SENIOR ; [facility] HYDROcodone-Acetaminophen 5- 325 MG Oral Tablet 07/05/2023 - 08/06/2023 Provider: FELISHA SENIOR Diagnosis: Other spondylosis, lumbar region 1 every 6 hours as needed fo r severe pain, max 4/day11 Last Documented On 3 12:26PM By FELISHA SENIOR ; [facility] Pregabalin 200 MG Oral Capsule 07/05/2023 - 10/08/2023 Provider: FELISHA SENIOR Diagnosis: Fibromyalgia TAKE 1 CAPSULE BY MOUTH TWICE DAILY Last Documented On 4 1:42PM By FELISHA SENIOR ; [facility] Pregabalin 200 MG Oral Capsule 06/11/2023 - 07/05/2023 Provider: NYDIA YUN OCCASIONAL BABYSITTER-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, [employer] PROGRAMMER-BC Diagnosis: Fibromyalgia TAKE 1 CAPSULE BY MOUTH TWICE DAILY Last Documented On 3 10:52AM By FELISHA SENIOR ; [facility] HYDROcodone-Acetaminophen 5- 325 MG Oral Tablet 06/04/2023 - 07/05/2023 Provider: FELISHA SENIOR Diagnosis: Other spondylosis, lumbar region 1 every 6 hours as needed for severe pain, max 4 /day Last Documented On 3 10:52AM By FELISHA SENIOR ; [facility] HYDROcodone-Acetaminophen 5- 325 MG Oral Tablet 05/08/2023 - 06/04/2023 Provider: NYDIA YUN OCCASIONAL BABYSITTER-FPA, BIRD Diagnosis: Other spondylosis, lumbar region 1 every 6 hours as needed fo r severe pain, max 4/day Last Documented On 3 1:44PM By FELISHA SENIOR ; [facility] HYDROcodone-Acetaminophen 5- 325 MG Oral Tablet 04/05/2023 - 05/08/2023 Provider: FELISHA SENIOR Diagnosis: Other spondylosis, lumbar region 1 every 6 hours as needed for severe pain, max 4 /day Last Documented On 3 12:02PM By NYDIA GARCIAP-BC ; [facility] HYDROcodone-Acetaminophen 5- 325 MG Oral Tablet 03/02/2023 - 04/05/2023 Provider: FELISHA SENIOR Diagnosis: Other spondylosis, lumbar region 1 every 6 hours as needed for severe pain, max 4 /day Last Documented On 3 11:56AM By FELISHA SENIOR ; [facility] HYDROcodone-Acetaminophen 5- 325 MG Oral Tablet 02/05/2023 - 03/01/2023 Provider: FELISHA SENIOR Diagnosis: Other spondylosis, lumbar region 1 every 6 hours as needed for severe pain, max 4 /day Last Documented On 3 12:02PM By FELISHA SENIOR ; [facility] Vitamin D (Ergocalciferol) 1 .25 MG (54256 UT) Oral Capsule 01/20/2023 - 11/07/2023 Provider: Diagnosis: Last Documented On 4 10:13AM By Lilli MAK ; [facility] HYDROcodone-Acetaminophen 5- 325 MG Oral Tablet 01/05/2023 - 02/05/2023 Provider: FELISHA SENIOR Diagnosis: Other spondylosis, lumbar region 1 every 6 hours as needed for severe pain, max 4 /day Last Documented On 3 4:23PM By FELISHA SENIOR ; [facility] HYDROcodone-Acetaminophen 5- 325 MG Oral Tablet 12/05/2022 - 01/05/2023 Provider: FELISHA SENIOR Diagnosis: 1 every 6 hours as needed for severe pain, max 4 /day Last Documented On 3 2:45PM [facility] ; [facility] Pregabalin 200 MG Oral Capsule 11/28/2022 - 06/11/2023 Provider: FELISHA SENIOR Diagnosis: Fibromyalgia TAKE 1 CAPSULE BY MOUTH TWICE DAILY Last Documented On 3 11:59AM [facility] ; [facility] HYDROcodone-Acetaminophen 5- 325 MG Oral Tablet 11/03/2022 - 12/04/2022 Provider: NYDIA FRANKEL [employer]-BC Diagnosis: 1 every 6 hours as needed for severe pain, max 4 /day Last Documented On 3 8:33AM By [facility] ; [facility] HYDROcodone-Acetaminophen 5- 325 MG Oral Tablet 10/06/2022 - 11/03/2022 Provider: NYDIA FRANKEL [employer] PRO[employer]MER-BC Diagnosis: 1 every 6 hours as needed for severe pain Last Documented On 3 1:24PM By NYDIA YUN [facility] ; [facility] Anastrozole 1 MG Oral Tablet 09/19/2022 - 11/07/2023 Areli mooreder: Diagnosis: Last Documented On 4 10:16AM By Lilli Yung Alexi ; [facility] HYDROcodone-Acetaminophen 5- 325 MG Oral Tablet 09/06/2022 - 10/06/2022 Provider: NYDIA FRANKEL [employer]-BC Diagnosis: 1 every 6 hours as needed for severe pain Last Documented On 3 4:40PM By NYDIA YUN [facility] ; [facility] Pregabalin 200 MG Oral Capsule 08/17/2022 - 11/28/2022 Provider: FELISHA WU Diagnosis: Fibromyalgia TAKE 1 CAPSULE BY MOUTH TWICE DAILY Last Documented On 3 2:12PM By FELISHA SENIOR ; [facility] HYDROcodone-Acetaminophen 5- 325 MG Oral Tablet 07/31/2022 - 09/05/2022 Provider: NYDIA YUN APRN-NORYA, [employer] PROGRAMMER-BC Diagnosis: 1 every 6 hours as needed Last Documented On 3 2:51PM By NYDIA GARCIAP- ; [facility] HYDROcodone-Acetaminophen 5- 325 MG Oral Tablet 06/29/2022 - 07/31/2022 Provider: FELISHA WUBC Diagnosis: 1 every 6 hours as needed Last Documented On 2 12:48PM By NYDIA YUN [facility] ; [facility] Ketoconazole 2% External Cream 05/30/2022 - 03/23/2023 Provider: REFUGIO AMARO MD Diagnosis: Last Documented On 3 10:47AM By Lilli Yung Alexi ; [facility] HYDROcodone-Acetaminophen 5- 325 MG Oral Tablet 05/24/2022 - 06/28/2022 Provider: FELISHA WUBC Diagnosis: 1 every 6 hours as needed Last Documented On 2 1:39PM By FELISHA HERRERA-BC ; [facility] Pregabalin 200 MG Oral Capsule 05/09/2022 - 08/17/2022 Provider: FELISHA WUBC Diagnosis: Fibromyalgia TAKE 1 CAPSULE BY MOUTH TWICE DAILY Last Documented On 2 10:30AM By FELISHA WUBC ; [facility] HYDROcodone-Acetaminophen 5- 325 MG Oral Tablet 04/24/2022 - 05/24/2022 Provider: FELISHA WUBC Diagnosis: 1 every 6 hours as needed Last Documented On 2 3:42PM By FELISHA WUBC ; [facility] HYDROcodone-Acetaminophen 5- 325 MG Oral Tablet 03/20/2022 - 04/24/2022 Provider: FELISHA WUBC Diagnosis: 1 every 6 hours as needed Last Documented On 2 5:32PM By FELISHA WUBC ; [facility] HYDROcodone-Acetaminophen 5- 325 MG Oral Tablet 02/16/2022 - 03/20/2022 Provider: NYDIA G JAMA OCCASIONAL BABYSITTER-FPA, PLC PROGRAMMER-BC Diagnosis: 1 every 6 hours as needed Last Documented On 2 4:51PM By FELISHA WUBC ; [facility] HYDROcodone-Acetaminophen 5- 325 MG Oral Tablet 01/09/2022 - 02/16/2022 Provider: FELISHA WUBC Diagnosis: 1 every 6 hours as needed Last Documented On 2 10:58AM By NYDIA YUN PLC PROGRAMMER-BC ; [facility] HYDROcodone-Acetaminophen 5- 325 MG Oral Tablet 12/09/2021 - 01/06/2022 Provider: FELISHA WUBC Diagnosis: 1 every 6 hours as needed Last Documented On 2 8:16AM By FELISHA HERRERA-BC ; [facility] Pregabalin 200 MG Oral Capsule 11/21/2021 - 05/09/2022 Provider: FELISHA WUBC Diagnosis: TAKE 1 CAPSULE BY MOUTH TWICE DAILY Last Documented On 2 3:53PM By FELISHA HERRERA-BC ; [facility] HYDROcodone-Acetaminophen 5- 325 MG Oral Tablet 11/10/2021 - 12/09/2021 Provider: FELISHA WUBC Diagnosis: 1 every 6 hours as needed Last Documented On 2 11:56AM By FELISHA WUBC ; [facility] HYDROcodone-Acetaminophen 5- 325 MG Oral Tablet 10/13/2021 - 11/10/2021 Provider: FELISHA WUBC Diagnosis: 1 every 6 hours as needed Last Documented On 2 6:01PM By FELISHA HERRERA-BC ; [facility] HYDROcodone-Acetaminophen 5- 325 MG Oral Tablet 09/06/2021 - 10/12/2021 Provider: FELISHA WUBC Diagnosis: 1 every 6 hours as needed Last Documented On 2 9:12AM By FELISHA WUBC ; [facility] Pregabalin 200 MG Oral Capsule 08/15/2021 - 11/21/2021 Provider: FELISHA WUBC Diagnosis: TAKE 1 CAPSULE BY MOUTH TWICE DAILY Last Documented On 2 11:37AM By FELISHA SENIOR ; [facility] HYDROcodone-Acetaminophen 5- 325 MG Oral Tablet 08/12/2021 - 09/06/2021 Provider: FELISHA SENIOR Diagnosis: Other spondylosis, cervical region 1 every 6 hours as needed Last Documented On 2 5:13PM By FELISHA SENIOR ; [facility] HYDROcodone-Acetaminophen 7. 5-325 MG Oral Tablet 07/11/2021 - 08/12/2021 Provider: FELISHA SENIOR Diagnosis: 1 po tid prn Last Documented On 1 12:06PM By FELISHA SENIOR ; [facility] HYDROcodone-Acetaminophen 7. 5-325 MG Oral Tablet 06/14/2021 - 07/11/2021 Provider: FELISHA SENIOR Diagnosis: Spinal stenosis, lumbosacral region 1 po tid prn Last Documented On 1 3:02PM By FELISHA SENIOR ; [facility] Pregabalin 200 MG Oral Capsule 06/14/2021 - 08/15/2021 Provider: FELISHA SENIOR Diagnosis: Fibromyalgia 1 CAPSULE TWO TIMES A DAY Last Documented On 1 4:32PM By FELISHA SENIOR ; [facility] Anastrozole 1 MG Oral Tablet 06/14/2021 - 02/05/2023 P rokerwinder: Diagnosis: Last Documented On 02/05/2023 4:02PM By Lilli MAK ; [facility] Pregabalin 150 MG Oral Capsule 05/30/2021 - 07/01/2021 Provider: FELISHA SENIOR Diagnosis: TAKE 1 CAPSULE BY MOUTH TWICE DAILY Last Documented On 1 9:21AM By FELISHA SENIOR ; [facility] HYDROcodone-Acetaminophen 5- 325 MG Oral Tablet 05/10/2021 - 07/01/2021 Provider: FELISHA SENIOR Diagnosis: 1 every 6 hours as needed Last Documented On 1 9:22AM By FELISHA SENIOR ; [facility] Pregabalin 150 MG Oral Capsule 04/13/2021 - 05/30/2021 Provider: FELISHA SENIOR Diagnosis: Fibromyalgia 1 CAPSULE TWO TIMES A DAY Last Documented On 1 5:36PM By FELISHA SENIOR ; [facility] Pregabalin 75 MG Oral Capsule 04/13/2021 - 06/14/2021 Provider: FELISHA SENIOR Diagnosis: Fibromyalgia 1 CAPSULE TWO TIMES A DAY Last Documented On 06/14/2021 1:42PM By Lilli MAK ; [facility] HYDROcodone-Acetaminophen 5- 325 MG Oral Tablet 04/13/2021 - 05/05/2021 Provider: FELISHA SENIOR 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, lumbar region 1 every 6 hours as needed Last Documented On 1 10:51AM By FELISHA SENIOR ; [facility] HYDROcodone-Acetaminophen 5- 325 MG Oral Tablet 2021 - 04/13/2021 Provider: FELISHA SENIOR Diagnosis: 1 po q 6-8 hours prn/ max 3 per day Last Documented On 1 1:37PM By FELISHA SENIOR ; [facility] HYDROcodone-Acetaminophen 5- 325 MG Oral Tablet 02/14/2021 - 2021 Provider: FELISHA SENIOR Diagnosis: Cervicalgia 1 po q 6-8 hours prn/ max 3 per day Last Documented On 1 4:57PM By FELISHA SENIOR ; [facility] HYDROcodone-Acetaminophen 5- 325 MG Oral Tablet 01/11/2021 - 02/11/2021 Provider: FELISHA SENIOR Diagnosis: Chronic pain syndrome 1 po q 6-8 hours prn/ max 3 per day Last Documented On 1 10:14AM By FELISHA SENIOR ; [facility] HYDROcodone-Acetaminophen 5- 325 MG Oral Tablet 12/13/2020 - 01/10/2021 Provider: FELISHA SENIOR Diagnosis: Chronic pain syndrome 1 po q 6-8 hours prn/ max 3 per day Last Documented On 1 5:12PM By FELISHA SENIOR ; [facility] HYDROcodone-Acetaminophen 5- 325 MG Oral Tablet 11/15/2020 - 12/13/2020 Provider: FELISHA SENIOR Diagnosis: Chronic pain syndrome 1 po q 6-8 hours prn Last Documented On 1 5:03PM By FELISHA SENIOR ; [facility] HYDROcodone-Acetaminophen 5- 325 MG Oral Tablet 10/07/2020 - 11/15/2020 Provider: FELISHA SENIOR Diagnosis: Chronic pain syndrome 1 po q 6-8 hours prnThis is 15 day rx Last Documented On 1 4:59PM By FELISHA SENIOR ; [facility] [place] 5-325 MG Oral Tablet 09/13/2020 - 2021 Provider: FELISHA SENIOR Diagnosis: Spinal stenosis, lumbosacral region 1 po q 6 hours prn/ not 4 da chano every daylast 30 days Last Documented On 1 3:39PM By FELISHA SENIOR ; [facility] Pregabalin 150 MG Oral Capsule 08/24/2020 - 04/13/2021 Provider: FELISHA SENIOR Diagnosis: Fibromyalgia TAKE 1 CAPSULE BY MOUTH TWICE DAILY Last Documented On 04/13/2021 1:12PM By Jonelle MAK ; [facility] [place] 5-325 MG Oral Tablet 08/09/2020 - 09/13/2020 Provider: FELISHA SENIOR Diagnosis: Spinal stenosis, lumbosacral region 1 po q 6 hours prn/ not 4 da chano every daylast 30 daysto fill 08/11/20 Last Documented On 1 5:32PM By FELISHA SENIOR ; [facility] [place] 5-325 MG Oral Tablet 07/13/2020 - 08/09/2020 Provider: FELISHA SENIOR Diagnosis: Spinal stenosis, lumbosacral region 1 po q 6 hours prn/ not 4 da chano every daylast 30 days Last Documented On 0 6:28PM By FELISHA SENIOR ; [facility] [place] 5-325 MG Oral Tablet 06/10/2020 - 07/12/2020 Provider: FELISHA SENIOR Diagnosis: Spinal stenosis, lumbosacral region 1 po q 6 hours prn/ not 4 da chano every daylast 30 days Last Documented On 0 9:04AM By FELISHA SENIOR ; [facility] [place] 5-325 MG Oral Tablet 05/11/2020 - 06/10/2020 Provider: FELISHA SENIOR Diagnosis: Spinal stenosis, lumbosacral region 1 po q 6 hours prn/ not 4 da chano every daylast 30 days Last Documented On 0 4:06PM By FELISHA SENIOR ; [facility] Pregabalin 150 MG Oral Capsule 05/03/2020 - 08/24/2020 Provider: FELISHA SENIOR Diagnosis: Fibromyalgia TAKE 1 CAPSULE BY MOUTH TWICE DAILY Last Documented On 0 3:10PM By FELISHA SENIOR ; [facility] [place] 5-325 MG Oral Tablet 04/12/2020 - 05/11/2020 Provider: FELISHA SENIOR Diagnosis: Spinal stenosis, lumbosacral region 1 poTID prn Last Documented On 0 3:27PM By FELISHA SENIOR ; [facility] Amitiza 24 MCG Oral Capsule 04/06/2020 - 2021 Provider: FELISHA SENIOR Diagnosis: Constipation, unspecified TAKE 1 CAPSULE BY MOUTH TWICE DAILY Last Documented On 2021 3:29PM By Jonelle MAK ; [facility] [place] 5-325 MG Oral Tablet 03/09/2020 - 04/09/2020 Provider: FELISHA SENIOR Diagnosis: Spinal stenosis, lumbosacral region 1 poTID prnto fill 03/10/20 Last Documented On 0 5:17PM By FELISHA SENIOR ; [facility] Amitiza 24 MCG Oral Capsule 02/09/2020 - 04/06/2020 Provider: FELISHA SENIOR Diagnosis: Constipation, unspecified 1 CAPSULE TWO TIMES A DAY Last Documented On 0 2:59PM By FELISHA SENIOR ; [facility] [place] 5-325 MG Oral Tablet 02/09/2020 - 03/09/2020 Provider: FELISHA SENIOR Diagnosis: Spinal stenosis, lumbosacral region 1 poTID prn Last Documented On 0 2:43PM By FELISHA SENIOR ; [facility] Pregabalin 150 MG Oral Capsule 01/30/2020 - 05/03/2020 Provider: FELISHA SENIOR Diagnosis: Fibromyalgia 1 CAPSULE TWO TIMES A DAY Last Documented On 0 9:03AM By FELISHA SENIOR ; [facility] [place] 5-325 MG Oral Tablet 01/08/2020 - 02/09/2020 Provider: FELISHA SENIOR Diagnosis: Spinal stenosis, lumbosacral region 1 poTID prnto fill 01/10/20 Last Documented On 0 2:57PM By FELISHA SENIOR ; [facility] [place] 5-325 MG Oral Tablet 12/10/2019 - 01/08/2020 Provider: FELISHA SENIOR Diagnosis: Low back pain 1 poTID prnto fill 12/11/19 Last Documented On 0 10:55AM By FELISHA SENIOR ; [facility] [place] 5-325 MG Oral Tablet 11/11/2019 - 12/09/2019 Provider: FELISHA SENIOR Diagnosis: Low back pain 1 poTID prn Last Documented On 0 2:38PM By FELISHA SENIOR ; [facility] Lyrica 150 MG Oral Capsule 10/10/2019 - 05/11/2020 Provider: FELISHA SENIOR Diagnosis: Fibromyalgia TAKE 1 CAPSULE BY MOUTH TWICE DAILY Last Documented On 0 3:14PM By FELISHA SENIOR ; [facility] [place] 5-325 MG Oral Tablet 10/09/2019 - 11/07/2019 Provider: FELISHA SENIOR Diagnosis: Low back pain 1 poTID prnto fill 10/11/19 Last Documented On 0 10:52AM By FELISHA SENIOR ; [facility] [place] 5-325 MG Oral Tablet 09/08/2019 - 10/08/2019 Provider: FELISHA SENIOR Diagnosis: Low back pain 1 poTID prn Last Documented On 0 8:45AM By FELISHA SENIOR ; [facility] [place] 5-325 MG Oral Tablet 08/07/2019 - 09/08/2019 Provider: FELISHA SENIOR Diagnosis: Low back pain 1 poTID prnto fill 08/08/19 Last Documented On 0 4:55PM By FELISHA SENIOR ; [facility] Lyrica 150 MG Oral Capsule 07/09/2019 - 10/10/2019 Provider: EFLISHA SENIOR Diagnosis: Fibromyalgia TAKE 1 CAPSULE BY MOUTH TWICE DAILY Last Documented On 0 12:32PM By FELISHA SENIOR ; [facility] [place] 5-325 MG Oral Tablet 07/09/2019 - 08/07/2019 Provider: FELISHA SENIOR Diagnosis: Low back pain 1 po BID prnto fill 07/10/19 Last Documented On 9 2:09PM By FELISHA SENIOR ; [facility] [place] 5-325 MG Oral Tablet 06/10/2019 - 07/08/2019 Provider: FELISHA SENIOR Diagnosis: Low back pain 1 po BID prn Last Documented On 9 8:51AM By FELISHA SENIOR ; [facility] Lyrica 150 MG Oral Capsule 06/02/2019 - 07/08/2019 Provider: FELISHA SENIOR Diagnosis: Fibromyalgia TAKE 1 CAPSULE BY MOUTH TWICE DAILY Last Documented On 9 8:50AM By FELISHA SENIOR ; [facility] Xanax 0.5 MG Oral Tablet 04/29/2019 - 08/07/2019 Provi pan: FELISHA SENIOR Diagnosis: Low back pain as directed 1 po 1 hour prio r to procedure, 1 po 30 minutes prior to procedure and 1 immediately prior prn Last Documented On 9 2:03PM By FELISHA SENIOR ; [facility] [place] 5-325 MG Oral Tablet 04/29/2019 - 06/10/2019 Provider: FELISHA SENIOR Diagnosis: Low back pain 1 po BID prnto fill 05/01/19 Last Documented On 9 4:12PM By FELISHA SENIOR ; [facility] [place] 5-325MG Oral Tablet 04/03/2019 - 04/29/2019 Provider: FELISHA SENIOR Diagnosis: Low back pain 1 po BID prn Last Documented On 9 3:16PM By FELISHA SENIOR ; [facility] [place] 5-325MG Oral Tablet 2019 - 04/03/2019 Provider: FELISHA SENIOR Diagnosis: Low back pain 1 po BID prn Last Documented On 9 1:55PM By FELISHA SENIOR ; [facility] Lyrica 150MG Oral Capsule 03/03/2019 - 06/02/2019 Provider: FELISHA SENIOR Diagnosis: Fibromyalgia TAKE 1 CAPSULE BY MOUTH TWICE DAILY Last Documented On 9 1:26PM By FELISHA SENIOR ; [facility] [place] 5-325MG Oral Tablet 01/31/2019 - 2019 Provider: FELISHA SENIOR Diagnosis: Low back pain 1 po BID prn Last Documented On 9 9:04AM By FELISHA SENIOR ; [facility] traMADol HCl 50MG Oral Tablet 01/28/2019 - 01/31/2019 Provider: FELISHA SENIOR Diagnosis: Fibromyalgia 1 po BID prn Last Documented On 9 11:57AM By Sydnee MAK ; [facility] Lyrica 150MG Oral Capsule 01/28/2019 - 03/03/2019 Provider: FELISHA SENIOR Diagnosis: Fibromyalgia TAKE 1 CAPSULE BY MOUTH TWICE DAILY Last Documented On 9 8:22AM By FELISHA SENIOR ; [facility] [place] 5-325MG Oral Tablet 12/26/2018 - 01/31/2019 Provider: FELISHA SENIOR Diagnosis: Low back pain 1 po BID prn Last Documented On 9 11:51AM By FELISHA SENIOR ; [facility] [place] 5-325MG Oral Tablet 11/28/2018 - 12/26/2018 Provider: FELISHA SENIOR Diagnosis: Low back pain 1 po BID prn Last Documented On 9 4:54PM By FELISHA SENIOR ; [facility] Lyrica 150MG Oral Capsule, conventional 11/28/2018 - 01/28/2019 Provider: FELISHA SENIOR Diagnosis: Fibromyalgia 1 CAPSULE TWO TIMES A DAY Last Documented On 9 9:31AM By FELIHSA SENIOR ; [facility] traMADol HCl 50MG Oral Tablet 10/31/2018 - 01/28/2019 Provider: FELISHA SENIOR Diagnosis: Fibromyalgia as directed 1-2 po TID prn pain Last Documented On 9 3:10PM By FELISHA SENIOR ; [facility] Lyrica 150MG Oral Capsule 10/31/2018 - 11/28/2018 Provider: FELISHA SENIOR Diagnosis: Fibromyalgia 1 CAPSULE TWO TIMES A DAY Last Documented On 9 3:12PM By FELISHA SENIOR ; [facility] Gabapentin 100MG Oral Capsule 10/03/2018 - 06/24/2019 Provider: Diagnosis: 1 morning, 1 at noon, 3 tabs at bedtime Last Documented On 9 2:28PM By FELISHA WU ; [facility] Hydroxychloroquine Sulfate 200MG Oral Tablet 9 - 03/23/2023 Provider: Diagnosis: BID Last Documented On 3 10:47AM By Lilli MAK ; [facility] TraMADol HCl 50MG Oral Tablet 10/03/2018 - 06/25/2019 Provider: Diagnosis: Twice daily Last Documented On 9 11:22AM By FELISHA WU ; [facility] Levothyroxine Sodium 50MCG Oral Tablet 10/03/2018 - Provider: Diagnosis: Last Documented On 3 10:48AM By Lilli MAK ; [facility] Lisinopril 40MG Oral Tablet 10/03/2018 - 07/05/2023 Pr ovider: Diagnosis: Last Documented On 3 10:40AM By Lilli MAK ; [facility] Venlafaxine HCl 75MG Oral Tablet 10/03/2018 - 11/07/19 24 Provider: Diagnosis: Last Documented On 4 10:19AM By Lilli MAK ; [facility] Gabapentin 300MG Oral Capsule 10/03/2018 - 02/05/2019 Provider: FELISHA SENIOR Diagnosis: Systemic lupus erythematosus, unspecified as directed Last Documented On 9 3:41PM By FELISHA SENIOR ; [facility] Omeprazole 40MG Oral Capsule Delayed Release 9 - 02/05/2023 Provider: Diagnosis: Last Documented On 02/05/2023 4:03PM By Lilli MAK ; [facility] Medications Administered Includes: Administered Medications in patient's chart Medications Administered Diagnosis Date Pro vider Ketorolac Tromethamine 30 MG/ML IJ SOLN 0 03/23/2023 FELISHA SENIOR Last Documented On 3 11:03AM By Lilli MAK ; [facility] Vital Signs Includes: Vital Signs from 12/10/2023 through 12/09/2024 Vital Name 02/01/2024 08:50A 12/17/2023 10: 57A Temp-Oral (F) 98.6 98.6 Height (in) 65 65 Weight (lb) 215 215 Body Mass Index 35.8 35.8 Body Surface Area 2 2 Pain Level 8 8 Last Documented: On 02/01/2024 8:51AM ; [facility] On 12/17/2023 10:59AM ; [facility] Results Includes: Results from 12/10/2023 through 12/09/2024 No Results Recorded For Specified Dates History of Present Illness History of Present Illness not supported for this document type No History of Present Illness Recorded Social History Description Last Updated Tobacco non-user 11/07/2023 Last Documented On 4 3:07PM ; [facility] Alcohol 07/31/2023 Last Documented On 3 2:52PM ; [facility] Consuming 5 or more drinks per day None 07/31/2023 Last Documented On 3 2:52PM ; [facility] Current nonsmoker 07/31/2023 Last Documented On 3 2:52PM ; [facility] Currently not in school 07/31/2023 Last Documented On 3 2:52PM ; [facility] Drug use 07/31/2023 Last Documented On 3 2:52PM ; [facility] Lives with spouse 07/31/2023 Last Documented On 3 2:52PM ; [facility] Non-smoker 07/31/2023 Last Documented On 3 2:52PM ; [facility] Not recovering alcoholic 07/31/2023 Last Documented On 3 2:52PM ; [facility] Not recovering from substance abuse 07/05 Last Documented On 3 2:52PM ; [facility] Number of times used recreat ional drug/ prescription drug for nonmedical reason. None 07/31/2023 Last Documented On 3 2:52PM ; [facility] No family problems 07/31/2023 Last Documented On 3 2:52PM ; [facility] No recent emotional stress 07/31/2023 Last Documented On 3 2:52PM ; [facility] Smoking status : Never smoker 08/07/2019 Last Documented On 9 9:54AM ; [facility] Currently 10/03/2018 Last Documented On 9 9:56AM ; [facility] No tobacco use 10/03/2018 Last Documented On 9 9:56AM ; [facility] Procedures and Surgical History Includes: Procedures from 12/10/2023 through 12/09/2024 Procedures Code Diagnosis Performing Provider Service Location Service Date CLINIC VISIT ([facility]IA [employer]) T1015 Spinal stenosis, lumbar region with neurogenic claudication, Other spondylosis with radiculopathy, lumbar region, Fibromyalgia, manager terminal (current) use of opiate analgesic [facility] 02/01/2024 Last Documented On 4 5:46PM ; [facility] CLINIC VISIT T1015 Other spondylosi s with radiculopathy, lumbar region, Systemic lupus erythematosus, unspecified, manager terminal (current) use of opiate analgesic, Spinal stenosis, lumbar region with neurogenic claudication [facility] 12/17/2023 Last Documented On 4 12:11PM ; [facility] Medical History Includes: Medical History in patient's chart Description Last Updated Reviewed and Unchanged 10/10/2019 Last Documented On 0 12:34PM ; [facility] Currently wearing eyeglasses 10/03/2018 Last Documented On 9 9:56AM ; [facility] Previously 3 time(s) 10/03/2018 Last Documented On 9 9:56AM ; [facility] History of arthritis 10/03/2018 Last Documented On 9 9:56AM ; [facility] History of cancer 10/03/2018 Last Documented On 9 9:56AM ; [facility] History of hypertension 10/03/2018 Last Documented On 9 9:56AM ; [facility] Family History Includes: Family History in patient's chart Description Last Updated Family history of kidney disease 019 Last Documented On 9 9:56AM ; [facility] Father Hypertension 10/03/2018 Last Documented On 9 9:56AM ; [facility] Mother Gun Shot Wound 9 Last Documented On 9 9:56AM ; [facility] Review of Systems Review of Systems not [...] Active Last Documented On 4 8:53AM ; [facility] Encounters Includes: Encounters from 12/10/2023 through 12/09/2024 Encounter Provider Location Date Check-In Time Check-Out Time Diagnosis [employer] FELISHA ROTHMAN [facility]- 02/01/20 24 12/17/2023 9:00AM 9:23AM Systemic Lupus Erythematosus,Ch ronic Pain Syndrome,Sacroil iitis,Fibromyalg ia,Spinal Stenosis Lumbar with Neurogenic Claudication,Spo ndylosis with Radiculopathy Lumbar Region,Valuer Use of Opiate Analgesic RX ISSUE/REFILL FELISHA ROTHMAN [facility] 01/18/20 24 12/17/2023 1:35PM 12/17/2023 11:59PM * PHONE CALL FELISHA ROTHMAN [facility] 12/21/19 24 12/17/2023 11:54AM 12/17/2023 11:59PM [employer]HE[employer] FELISHA ROTHMAN [facility]- 12/17/19 24 10:55AM 11:15AM Systemic Lupus Erythematosus,Ch ronic Pain Syndrome,Sacroil iitis,Fibromyalg ia,Spinal Stenosis Lumbar with Neurogenic Claudication,Spo ndylosis with Radiculopathy Lumbar Region,Prison Use of Opiate Analgesic RX [facility] 11/30/2023 2:04PM 11/30/2023 11:59PM Insurance Includes: Active Insurance Policies Plan Name Member ID Group # Subscriber Relationship Effect nieves Dates 1 - [facility] [id number] KATHY MCNULTY Self Clinical Notes Includes: Signed Clinical Notes starting from 09/22/2022 * Progress note Date Encounter Last Documented by 02/01/2024 TELEHEALTH Last documented on 02/01/2024; 9:17 AM, FELISHA ROTHMAN ANP-; [facility] Active Problems & Conditions - [...] and a report back to the [employer] quality control representative that she was getting approximate 75% [...] psychological evaluation and meeting with the [employer] quality control representative. Psychological evaluation revealed no barriers to [...] need a refill of hydrocodone today. [place] [employer] appropriate. Last UDS appropriate, this will [...] UDS appropriate. We will repeat this today. [facility] appropriate. She has exhibited no [...] allows her to maintain function levels. [place] [employer] OPERATOR is appropriate. UDS was appropriate Past [...] syndrome [G89.4 - Chronic pain syndrome] - senior care use of opiate analgesic [Z79.891 - manager terminal (current) use of opiate analgesic] Therapy - [...] visit: Provider: Privacy of provider's office. [address] [place] [address].[place] [address] Patient: Patient personal setting Total time spent with patient via telecommunication 15 minutes * Progress note Date Encounter Last Documented by 01/18/2024 RX ISSUE/REFILL Last documented on 01/21/2024; 2:27 PM, FELISHA ROTHMAN ANP-; [facility] Active Problems & Conditions - [...] Last documented on 12/28/2023; 8:42 AM, FELISHA HERRERA-; [facility] Active Problems & Conditions - Chronic Pain Syndrome Chief Complaint Phone Call - Chief Concern: reason for call:pt wanted to let you know she was given tramadol, i just picked it up but tramadol doesn't do anything for me , she just wanted you to be aware she was given this rx, kms pt phone # for return call:[phone] date/initials:12/21/23, kms. Past Medical/Surgical History Reported: Medical: [...] Last documented on 12/17/2023; 1:18 PM, FELISHA ROTHMAN ANP-; [facility] Active Problems & Conditions - [...] and a report back to the [employer] quality control representative that she was getting approximate 75% [...] psychological evaluation and meeting with the [employer] quality control representative. Psychological evaluation revealed no barriers to [...] need a refill of hydrocodone today. [place] [employer] OPERATOR appropriate. Last UDS appropriate, this will [...] UDS appropriate. We will repeat this today. [facility] appropriate. She has exhibited no [...] allows her to maintain function levels. [place] [employer] OPERATOR is appropriate. UDS was appropriate Past [...] syndrome [G89.4 - Chronic pain syndrome] - manager terminal use of opiate analgesic [Z79.891 - senior care (current) use of opiate analgesic] Therapy - [...] visit: Provider: Privacy of provider's office. [address] [place] [address]., [place] [address] Patient: Patient personal setting Total time spent with patient via telecommunication minutes * Progress note Date Encounter Last Documented by 12/14/2023 RX ISSUE/REFILL Last documented on 12/17/2023; 2:39 PM, FELISHA ROTHMAN ANP-; [facility] Active Problems & Conditions - [...]
[2024-12-09] MEDS: KETOROLAC 30 MG/ML VIAL (*BKC) IM (23:13)
[2024-12-09 23:17] VITALS: BP 162/94; PULSE 84; RESP 17; O2SAT 100
--- NOTE | 2024-12-09 23:17 | ED_ITS ---
HPI - Headache General Chief Complaint: Headache Stated Complaint: EARA PAIN Time Seen by Provider: 12/09/24 21:56 Source: patient Mode of arrival: ambulatory Limitations: no limitations History of Present Illness HPI Narrative: This is a 54-year-old female, with history of breast cancer, hypothyroidism who presents to the emergency department complaining bilateral ear pain greater on the right, increased urinary frequency associated with right flank pain and suprapubic tenderness. The patient states her flank pain and urinary frequency has been going on for approximately 2 weeks. She describes pain as cramping, rated 7/10 associated with some nausea. She denies associated fevers, chills, or vomiting. She describes her ear pain is sharp, rated 8/10, aggravated by any touch. She denies loss of hearing, ringing in the ears or vertigo. She has no other complaints at this time. Related Data Home Medications ?Medication ?Instructions ?Recorded ?Confirmed ?Last Taken ?Type venlafaxine 225 mg tablet,extended 225 mg PO QAM 10/13/19 10/16/24 09/30/24 History release 24 hr aripiprazole 2 mg tablet 2 mg PO QAM 07/09/23 10/16/24 09/30/24 History buspirone 15 mg tablet 15 mg PO TID 07/09/23 10/16/24 09/30/24 History famotidine 20 mg tablet 20 mg PO QAM 10/11/23 10/16/24 09/30/24 History ferrous sulfate 325 mg (65 mg 325 mg PO DAILY 10/11/23 10/16/24 09/23/24 History iron) tablet (FeroSul) hydroxyzine HCl 50 mg tablet 100 mg PO 10/11/23 10/16/24 09/30/24 History ketoconazole 2 % topical cream 1 applic topical DAILY 10/11/23 10/16/24 Unknown History lisinopril 40 mg tablet 40 mg PO QAM 10/11/23 10/16/24 09/30/24 History multivitamin 1 tablet PO DAILY 10/11/23 10/16/24 09/23/24 History nifedipine 30 mg tablet,extended 30 mg PO QAM 10/11/23 10/16/24 09/30/24 History release trazodone 150 mg tablet 150 mg PO 10/11/23 10/16/24 09/30/24 History albuterol sulfate 90 mcg/actuation 2 puff inhalation Q4-6H PRN 09/16/24 10/16/24 Unknown History aerosol inhaler shortness of breath or wheezing bupropion HCl 150 mg 24 hr tablet, 150 mg PO .MORNING 09/16/24 10/16/24 09/30/24 History extended release metoprolol succinate 100 mg 100 mg PO HS 09/16/24 10/16/24 09/30/24 History tablet,extended release 24 hr mirtazapine 15 mg tablet 15 mg PO HS 09/16/24 10/16/24 09/30/24 History omeprazole 40 mg capsule,delayed 40 mg PO QAM 09/16/24 10/16/24 09/30/24 History release ondansetron HCl 8 mg tablet 8 mg PO Q12H PRN nausea and 09/16/24 10/16/24 Unknown History vomiting Allergies Allergy/AdvReac Type Severity Reaction Status Date / Time meperidine AdvReac Severe HEADACHE Verified 12/10/24 00:47 scopolamine AdvReac Severe Headache Verified 12/10/24 00:47 adhesive tape AdvReac Unknown Rash, Verified 12/10/24 00:47 REDNESS, BURNING silver (From Tegaderm AG AdvReac BLISTER/REDNESS Verified 12/10/24 00:47 Mesh) AT SITE Review of Systems 2 Review of Systems: All systems reviewed & are unremarkable except as noted in HPI and below PMFSH Past Medical History Medical History Hypothyroidism, unspecified hx of, no longer on medications Hearing loss Gastroesophageal reflux disease History of breast cancer s/p bilateral mastectomy, chemo, radiation History of revision of total replacement of right knee joint Systemic lupus erythematosus Eczema Pancreatitis COPD (chronic obstructive pulmonary disease) Asthma Migraines Iron deficiency anemia History of blood transfusion. Hypertension Depression Sepsis Surgical History Surgical History History of knee replacement procedure of right knee History of knee surgery 11/08/23- Rev right TKA History of hysterectomy History of repair of right rotator cuff Status post trigger finger release History of fusion of cervical spine Status post transverse rectus abdominis muscle flap breast reconstruction History of endoscopic sinus surgery History of bilateral mastectomy History of appendectomy History of cholecystectomy History of carpal tunnel release Port-A-Cath in place Family History Family History Other Family history of malignant neoplasm Hypertension Social History Social History Social History: Surrogate medical decision maker: Domingo Mcnulty, spouse. Code status: Full code. Smoking status: Never smoker Second hand tobacco smoke exposure: No Additional smoking assessment comments: chewed tobacco occassionally as a teen Alcohol intake: never Substance use: never Substance use type: does not use Do You Feel Safe in your Home?: Yes Lack of Transportation: No Lack of Food: Never True Current Housing: I Have Housing Concerned About Future Housing: No Difficulty Paying Gas/Electric Bills: No Difficulty Paying for Meds: No Currently Unemployed: No Education: Decline to Answer Difficulty w/ Childcare or Family Care: No Living arrangements: with family Additional living arrangements comments: HUSB Occupation/Education: unemployed Spiritual care concerns: No Exam 2 Narrative: GENERAL: Well-developed, well-nourished, and in no acute distress. HEAD: Normocephalic, atraumatic. EYES: PERRLA and EOMI. ENT: Nares clear, no rhinorrhea or epistaxis. Mucous membranes moist. Oropharynx without tonsillar hypertrophy exudate or other lesions. Right TM erythematous and somewhat bulging. Left TM normal. No swelling or bogginess of the bilateral mastoids, though there is tenderness. NECK: Supple. Tender anterior cervical lymphadenopathy, greater on the right than the left CHEST: Clear to auscultation. No respiratory distress. No wheezes rales or rhonchi HEART: Regular rate and rhythm. No murmur heard. Normal peripheral pulses. ABDOMEN: Soft, suprapubic tenderness to palpation, without rebound or guarding, nondistended, normal active bowel sounds. Mild right CVA tenderness no left CVA tenderness EXTREMITIES: Normal range of motion. No edema. SKIN: Warm, dry, no rash. NEURO: Alert and oriented x3. No focal deficit. Moving all 4 limbs spontaneously PSYCH: Normal mood and affect. Course Course Emergency Course: 00:31 - CBC unremarkable. Chemistries demonstrate mild hyperkalemia with potassium of 3.3 but is otherwise unremarkable. CT abdomen pelvis negative for acute intra-abdominal process. STAT Rad interpretation of internal auditory canal CTA not concerning for mass or obvious mastoid infection. Urinalysis overall not consistent with urinary tract infection, however given the patient's symptoms and otitis media, will treat with an antibiotic that will cover both. I discussed the findings and recommendations with the patient. Discussed return and emergency precautions including signs/symptoms of focal neural deficit, acute abdomen and intractable vomiting. The patient voiced understanding and agreement with the plan. All questions answered to her satisfaction. Vital Signs Vital signs: Vital Signs Temperature 98.4 F 12/09/24 18:32 Pulse Rate 102 H 12/09/24 18:32 Respiratory Rate 20 12/09/24 18:32 Blood Pressure 159/87 H 12/09/24 18:32 Pulse Oximetry 97 12/09/24 18:32 Temperature 98.4 F 12/09/24 18:32 Pulse Rate 99 12/10/24 00:47 Respiratory Rate 19 12/10/24 00:47 Blood Pressure 150/88 H 12/10/24 00:47 Pulse Oximetry 99 12/10/24 00:47 MDM - Headache MDM Narrative Medical decision making narrative: Plan: Imaging, labs, pain control, reassess Differential Diagnosis Differential diagnosis: Likely other (UTI, intracranial mass, mastoiditis, pyelonephritis, nephrolithiasis, otitis media, other) Lab Data 12/09/24 23:46 12/09/24 23:46 Labs: Lab Results 12/09/24 12/09/24 Range/Units 23:20 23:46 WBC 8.1 (4.5-10.0) K/mm3 RBC 4.90 (4.2-5.4) M/mm3 Hgb 13.4 (12.0-15.0) g/dL Hct 42.1 (37.0-47.0) % MCV 85.9 (80-100) fl MCH 27.3 (26-34) pg MCHC 31.8 L (32-36) g/dl RDW 15.4 H (11.5-14.5) % Plt Count 286 (150-375) k/mm3 MPV 8.5 (7.4-10.4) fl Immature Gran % (Auto) 1.7 H (0-0.5) % Neut % (Auto) 46.2 (45.5-73.1) % Lymph % (Auto) 42.9 (18.3-44.2) % [place] % (Auto) 8.1 (2.6-8.5) % Eos % (Auto) 0.7 (0-4.4) % Baso % (Auto) 0.4 (0.2-1.2) % Lymph # (Auto) 3.49 H (0.9-3.2) K/mm3 [place] # (Auto) 0.7 H (0.1-0.6) K/mm3 Eos # (Auto) 0.1 (0-0.3) K/mm3 Baso # (Auto) 0.0 (0.0-0.1) K/mm3 Abs Immat Gran (auto) 0.14 H (0.00-0.031) K/mm3 Absolute Neuts (auto) 3.8 (1.3-6.7) K/mm3 Absolute Nucleated RBC 0.000 (0.0-0.012) K/mm3 Nucleated RBC % 0.0 (0.0-0.2) % Sodium 142 (137-145) mmol/L Potassium 3.3 L (3.4-5.0) mmol/L Chloride 104 (98-107) mmol/L Carbon Dioxide 24 (22-30) mmol/L Anion Gap 14 H (4-12) mmol/L BUN 12 D (7-17) mg/dL Creatinine 0.76 (0.7-1.0) mg/dL Estim Creat Clear Calc 87 ml/min Estimated GFR > 60 (59 - ) Glucose 96 (65-110) mg/dL Calcium 9.2 (8.4-10.2) mg/dL Total Bilirubin 0.5 (0.2-1.3) mg/dL AST 30 (14-36) U/L ALT 33 (6-35) U/L Alkaline Phosphatase 84 (38-126) U/L Total Protein 9.0 H (6.3-8.2) g/dL Albumin 4.6 (3.5-5.1) g/dL Urine Color Yellow (Yellow) Urine Appearance Clear (Clear) Urine pH 6.0 (5.0-9.0) Ur Specific [place] 1.020 (1.001-1.035) Urine Protein 2+ H (Negative) mg/dL Urine Glucose (UA) Negative (Negative) mg/dL Urine Ketones Negative (Negative) mg/dL Ur Blood (Man) Negative (Negative) Urine Nitrate Negative (Negative) Urine Bilirubin Negative (Negative) Urine Urobilinogen 0.2 (<2.0) mg/dL Leukocyte Esterase Rfl Negative (Negative) RAEGAN/UL Urine RBC 0-2 (0-2) /hpf Urine WBC 0-5 (0-3) /hpf Ur Squamous Epith Cells Occasional (Few) /hpf Urine Bacteria None seen /hpf Urine Casts 0-2 Discharge Plan Discharge Clinical Impression: Acute right otitis media, Suprapubic abdominal pain, Dysuria Acute ear pain Qualifiers: Laterality: bilateral Qualified Code(s): H92.03 - Otalgia, bilateral Patient Disposition: Home Condition: Stable Instructions: Antibiotic Form, Urinary Tract Infection in Women (ED), Ear Infection (ED) Additional Instructions: You were seen in the emergency department. Your exam appears consistent with a middle ear infection. Your symptoms are consistent with a urinary tract infection with 0 0 your urinalysis was reassuring. A scan of the abdomen was not concerning for kidney stone. A scan of the ears was not concerning for infection of the bone. I recommend a course of oral antibiotics, decongestants and follow- up with your primary care doctor. If you develop loss of hearing, weakness/numbness, severe abdominal pain with fevers, persistent vomiting, or if you have other emergent concerns for life, limb, or eyesight, return to the emergency department. Patient Language: Romanian Prescriptions: New cefpodoxime 200 mg tablet 200 mg PO Q12H Qty: 14 0RF Rx Instructions: must administer with a meal/food No Action aripiprazole 2 mg tablet 2 mg PO QAM Patient Comments: QAM buspirone 15 mg tablet 15 mg PO TID doxycycline hyclate 100 mg tablet 100 mg PO DAILY Qty: 10 0RF hydrocodone-acetaminophen 7.5-325 mg tablet 1 tablet PO Q4H PRN (Reason: pain) Qty: 40 0RF Xarelto 10 mg tablet 10 mg PO DAILY Qty: 14 0RF Rx Instructions: for 14 days venlafaxine 225 mg tablet extended release 24hr 225 mg PO QAM ketoconazole 2 % cream 1 applic TOPICAL DAILY Rx Instructions: APPLY TO ECZEMA hydroxyzine HCl 50 mg tablet 100 mg PO HS nifedipine 30 mg tablet extended release 30 mg PO QAM famotidine 20 mg tablet 20 mg PO QAM trazodone 150 mg tablet 150 mg PO HS ferrous sulfate [FeroSul] 325 mg (65 mg iron) tablet 325 mg PO DAILY lisinopril 40 mg tablet 40 mg PO QAM multivitamin Tablet 1 tablet PO DAILY acetaminophen 500 mg capsule 1,000 mg PO Q6H PRN (Reason: pain) Qty: 20 0RF albuterol sulfate 90 mcg/actuation HFA aerosol inhaler 2 puff INHALATION Q4-6H PRN (Reason: shortness of breath or wheezing) bupropion HCl 150 mg tablet extended release 24 hr 150 mg PO .MORNING metoprolol succinate 100 mg tablet extended release 24 hr 100 mg PO HS mirtazapine 15 mg tablet 15 mg PO HS omeprazole 40 mg capsule,delayed release(DR/EC) 40 mg PO QAM ondansetron HCl 8 mg tablet 8 mg PO Q12H PRN (Reason: nausea and vomiting) dicyclomine 20 mg tablet 20 mg PO QID PRN (Reason: abdominal pain) Qty: 30 0RF celecoxib [Celebrex] 200 mg Capsule 200 mg PO BIDWM 30 Days Qty: 60 0RF ipratropium-albuterol 0.5 mg-3 mg(2.5 mg base)/3 mL Solution For Nebulization 3 ml inhalation Q6HRT PRN (Reason: shortness of breath) 30 Days Qty: 180 1RF fluticasone propion-salmeterol [AirDuo RespiClick] 232-14 mcg/actuation aerosol powdr breath activated 1 inh inhalation BID Qty: 1 3RF prednisone 20 mg tablet 40 mg PO DAILY 5 Days Qty: 10 0RF Follow-up/Referrals: Unruly,Manan Mackey [Primary Care Provider] - 1 Week Time of Disposition: 00:30
[2024-12-09 23:31] LABS: Add Urine Microscopic? YES; Appearance Urine Clear (Clear); Bacteria Urine None Seen /hpf; Bilirubin Urine Negative (Negative); Blood Urine Negative (Negative); Color Urine Yellow (Yellow); Glucose Urine UA Negative (Negative); Ketones Urine Negative (Negative); Leukocyte Esterase Ur Negative LEU/UL (Negative); Nitrate Urine Negative (Negative); Non Pathogenic Casts 0-2; Protein Urine 2+ mg/dL (Negative); RBC Urine 0-2 /hpf (0-2); Squamous Epithelial Cell Urine Occasional /hpf (Few); Urobilinogen Urine 0.2 mg/dL (<2.0); WBC Urine 0-5 /hpf (0-3)
[2024-12-10] LABS: Basophils Percent Auto 0.4 % (0.2-1.2); Eosinophils Absolute Auto 0.1 K/mm3 (0-0.3); Eosinophils Percent Auto 0.7 % (0-4.4); Hematocrit 42.1 % (37.0-47.0); Hemoglobin 13.4 g/dL (12.0-15.0); Immature Granulocyte Absolute 0.14 K/mm3 (0.00-0.031); Immature Granulocyte Percent A 1.7 % (0-0.5); Lymphocytes Absolute Auto 3.49 K/mm3 (0.9-3.2); Lymphocytes Percent Auto 42.9 % (18.3-44.2); Mean Corpuscular HGB Conc 31.8 g/dl (32-36); Mean Corpuscular Hemoglobin 27.3 pg (26-34); Mean Corpuscular Volume 85.9 fl (80-100); Mean Platelet Volume 8.5 fl (7.4-10.4); Monocytes Absolute Auto 0.7 K/mm3 (0.1-0.6); Monocytes Percent Auto 8.1 % (2.6-8.5); Neutrophils Absolute Auto 3.8 K/mm3 (1.3-6.7); Neutrophils Percent Auto 46.2 % (45.5-73.1); Platelet Count Result 286 k/mm3 (150-375); Red Cell Distribution Width 15.4 % (11.5-14.5); White Blood Count 8.1 K/mm3 (4.5-10.0)
[2024-12-10 00:03] LABS: Alanine Aminotransferase 33 U/L (6-35); Albumin Level 4.6 g/dL (3.5-5.1); Alkaline Phosphatase 84 U/L (38-126); Anion Gap 14 mmol/L (4-12); Aspartate Amino Transferase 30 U/L (14-36); Bilirubin,Total 0.5 mg/dL (0.2-1.3); Blood Urea Nitrogen 12 mg/dL (7-17); Calcium 9.2 mg/dL (8.4-10.2); Carbon Dioxide 24 mmol/L (22-30); Chloride 104 mmol/L (98-107); Estimated CRCL calculation 87 ml/min; Estimated Glomerular Filt Rate > 60; Glucose 96 mg/dL (65-110); Potassium 3.3 mmol/L (3.4-5.0); Sodium 142 mmol/L (137-145)
[2024-12-10] MEDS: oxyCODONE/ACETAMINOPHEN (*CRX) 5-325 MG TABLET 1 TABLET PO (00:26)
[2024-12-10 00:47] VITALS: BP 150/88; PULSE 99; RESP 19; O2SAT 99
== END 2024-12-10 00:48 | disposition home or self-care (01) ==
PROVIDERS: Emergency Provider Preventive Medicine Aerospace Medicine; PCP Internal Medicine Infectious Disease
DX: H66.91 Otitis media, unspecified, right ear (principal); R10.30 Lower abdominal pain, unspecified; R30.0 Dysuria; H92.03 Otalgia, bilateral; E03.9 Hypothyroidism, unspecified; K21.9 Gastro-esophageal reflux disease without esophagitis; Z85.3 Personal history of malignant neoplasm of breast; M32.9 Systemic lupus erythematosus, unspecified; J44.9 Chronic obstructive pulmonary disease, unspecified; D64.9 Anemia, unspecified; I10 Essential (primary) hypertension; F32.A Depression, unspecified
CPT/HCPCS: 36415; 70480; 74176; 80053; 81001; 85025; 96372; 99284; A9270; J1885

== ENCOUNTER 2025-02-06 15:21 | Emergency (ER) | payer OTHER, SELFPAY ==
--- NOTE | ~2025-02-06 | CT_ITS ---
EXAMINATION: CT abdomen pelvis wo con DATE: 02/06/2025 15:59 INDICATION: r/o kidney stone TECHNIQUE: Computed tomography (CT) of the abdomen and pelvis was performed without intravenous contr ast. Automated exposure control and iterative reconstruction technique were employed. The dose-length product was 884.77 mGy-cm. COMPARISON: 12/09/2024. FINDINGS: Lower thorax: Subsegmental, scattered peripheral patchy groundglass opacities, most notably in the ri ght medial lung base. Bilateral breast augmentation. Liver: Enlarged. Diffuse fatty infiltration. Biliary/Gallbladder: Gallbladder is absent. No bile duct dilation. Pancreas: No mass or duct dilation. Spleen: Normal. Adrenals:No mass. Kidneys: No suspicious mass, obstructing stone, or hydronephrosis. GI tract: No small or large bowel dilation. Appendix not confidently identified. Mesentery/Peritoneum: No ascites, mass, or free air. Retroperitoneum: No mass. Pelvis: Mostly empty her bladder. Absent uterus. Bilateral ovaries not confidently identified. Soft Tissues: Soft tissues and body wall unremarkable. Transverse scar over the lower abdomen. Small, uncomplicated fat-containing umbilical hernia. Bones: No acute osseous finding. IMPRESSION: Scattered small foci of patchy groundglass opacities in the lungs, may represent inflammation/infecti on. Hepatomegaly with steatosis. Otherwise, no acute abdominal pelvic process detected. Reviewed, dictated and finalized at location K. IMPRESSION: Scattered small foci of patchy groundglass opacities in the lungs, may represen t inflammation/infection. Hepatomegaly with steatosis. Otherwise, no acute abdominal pelvic process detected.
[2025-02-06 15:22] VITALS: BP 186/102; PULSE 99; RESP 18; TEMP 36.6; O2SAT 100
--- OUTSIDE RECORDS SUMMARY | 2025-02-06 15:23 | XMS_ITS | Clinical Summary ---
Author Organization [facility] Address [address] [place] [address] Phone Care Team Providers Care Superintendent [employer] Name Role Phone Key Tolliver MD Primary [...] 8:05 PM CDT Height 165.1 cm (5' 5) 03/14/2020 8:05 PM CDT Body Mass Index [...] Insurance [employer] Care Teams [employer] Relationship Specialty Start Date End Date Key Tolliver MD [address] [place] [address] PCP - General Internal Medicine 03/14/20
--- OUTSIDE RECORDS SUMMARY | 2025-02-06 15:24 | XMS_ITS | Data Portability ---
Author Organization [place] [facility] [place], Main Office Address [address] [place] [address] Care Team Providers Care Steam Room Attendant Name Role Phone KEY AMARO Primary Care Provider KEY AMARO Referring Provider Assessment Encounter Date Assessment Date Assessment LastModified by Organization Details LastModified Time 10/07/2024 10/07/2024 Assessment: Mild atelectasis Methacholine (+) mild persistent asthma Mild OSHS, HI = 2 Plan: The following were reviewed and explained to the patient: [facility] diagnostic sleep study 06/24/14 sleep onset = 2.5 minutes, REM onset = 75.5 minutes, AHI = 10, supine AHI = 13, REM AHI = 47, PLMI = 0.0 [facility] titration sleep study 07/13/14 sleep onset = 8 minutes, REM onset = 68.5 minutes, ResMed medium AirFit P10 nasal pillows at 12 cmH2O, PLMI = 0.0 [facility] diagnostic sleep study 07/04/21 sleep onset [...] further management. Follow-up: 3 months, January 2025 [email or web address] Not available 10/07/2024 12:10:20 01/06/2025 01/06/2025 Assessment: Mild atelectasis Methacholine (+) mild persistent asthma Mild OSHS, HI = 2 Plan: The following were reviewed and explained to the patient: [facility] diagnostic sleep study 06/24/14 sleep onset = 2.5 minutes, REM onset = 75.5 minutes, AHI = 10, supine AHI = 13, REM AHI = 47, PLMI = 0.0 [facility] titration sleep study 07/13/14 sleep onset = 8 minutes, REM onset = 68.5 minutes, ResMed medium AirFit P10 nasal pillows at 12 cmH2O, PLMI = 0.0 [facility] diagnostic sleep study 07/04/21 sleep onset [...] CT 10/02/24 mild atelectasis, no pulmonary embolism Continue incentive spirometer x 5 minutes every [...] to smoke. Continue albuterol HFA as needed. Continue Flovent HFA but increase from 44 mcg to 110 mcg 2 puffs BID. Gargle after use. [...] PCP for further management. Follow-up: 3 months, April 2025 Not available 01/06/2025 14:34:27 02/04/2025 02/04/2025 54-year-old charles sanchez presents for evaluation of her right lower leg. She reports this has been going on since 2019 when she had foot arch reconstruction surgery. It has been getting worse over the past couple of months. It is located over the Achilles and bothers her with ankle movement and walking as well as pushing the gas and brake pedals in her car. She has tried Tylenol and using some ice without significant improvement. She currently rates her pain 7/10. She has a history of a right TKA as well as foot reconstruction. Review of systems per patient questionnaire Physical exam: She has tenderness over the Achilles tendon and muscle tendon junction. Pain with resisted plantar flexion and passive dorsiflexion. She has sensation intact to light touch, 2+ DP pulse. Previous incisions well healed. X-rays were reviewed of the tib-fib, demonstrating postsurgical changes, no acute bony abnormality She has Achilles tendinitis. We will continue conservative management with a home exercise program as she did not want formal physical therapy. We will also give her an order for meloxicam and recommendation for Voltaren gel. We will see her back in 4-6 weeks for recheck. We discussed that Achilles tendinitis usually resolves on its own without requiring surgery, but can take some time to do so. She is in agreement with the plan. [email or web address] Not available 02/04/2025 17:35:17 Plan of Treatment Reminders Order Date Submit Date Provider Last Modified By Organization Details Last Modified Time Details Appointments New Patient 15 2024 01:30P Cory Bella MD Not available Not available Not available Lab yessenia serrano, serum 2024 [email or web address] [facility] (Lab), [address] [place], [address], 10/23/2024 14:30:54 mitochond rial Ab, serum [address] (Lab), [address] [place], [address], 10/23/2024 14:31:00 smooth muscle Ab, serum [address] (Lab), [address] [place], [address], 10/23/2024 14:31:08 unlisted lab - alpha 1 antitryps in quant [address] (Lab), [address] [place], [address], 10/23/2024 14:31:17 gamma-glu tamyl transfera se (ggt), serum [address] [place] [address] (Lab), [address] [place], [address], 10/23/2024 14:30:29 Referral None recorded. Procedures upper endoscopy procedure (EGD) (PROC) 2024 025 [facility] (Pre-Screen), [address] [place], [address], 10/27/2024 14:05:06 Surgeries None recorded. Imaging XR, tibia + fibula 2024 025 [facility] Priscilla Mccarthy, [address], [place], [address], 02/05/2025 08:21:09 CT, angiogram , abdomen, w/ contrast - Please contact patient to schedule [address] [place] [address] ([facility]), [address] [place], [address], 12/22/2024 08:05:16 Medication Orders meloxicam 15 mg tablet 2024 025 [email or web address] [id number], [address] [place], [id number], 02/04/2025 17:40:53 albuterol sulfate HFA 90 mcg/actua tion aerosol inhaler 2024 025 [facility] #05968, [address] [place], [place], [id number], 02/04/2025 15:12:53 Flovent HFA 110 mcg/actua tion aerosol inhaler 2024 025 [facility], [address] [place], [place], [id number], 01/06/2025 14:29:35 albuterol sulfate HFA 90 mcg/actua tion aerosol inhaler 2024 025 [email or web address] [facility] #62227, [address] [place], [place], [id number], 02/04/2025 15:12:53 Flovent HFA 44 mcg/actua tion aerosol inhaler 2024 025 [facility], [address] [place], [place], [id number], 10/07/2024 12:10:26 Patient TargetsNo targets recorded. Patient Instructions Encounter Date Encounter Id Patient Instructions Last Modified By Organization Details Last Modified Time 10/22/2024 [id number] REFLUX DIET [email or web address] Not available 0 10/22/2024 13:00:20 PT WITH GERD , DESPITE PPI/ H2RA. RECOMMEND AN EGD . . Risks benefits and complications were explained to the pt. ( BLEEDING PERFORATION , INFECTION , ). PT VERBALIZES UNDERSTANDING AND IS WILLING TO PROCEDE . PT WITH ELEVATED LFTs , CHECK LIVER MARKERS . F/U AFTER PROCEDURE Not available 10/22/2024 13:01:31 11/05/2024 [id number] PT WITH EPIGASTR IC PAIN OUT OF PROPORTION WITH EXAM. PT HAS SLE . NEED TO R/O VASCULAR VS NEURAL ETIOLOGY . RECOMMEND A CTA VS MRA. [email or web address] Not available 11/05/2024 16:07:33 Reason for Referral None Reported. Results Created Date Observation Date Name Description Value Unit Range Abnormal Flag Note LastModifiedBy Organization Detail LastModifiedTime 10/07/1910/02/2024 CT, angio gram, chest , w/ contr ast No observ ation record ed. BARCODE Not Available 2024 13:37:56 12/16/1912/12/2024 CT, abdom en + pelvi s, w/ contr ast No observ ation record ed. [email or web address] Not Available 2024 08:46:43 02/05/20 XR, tibia + fibul a No observ ation record ed. [facility] [place] [address], [place], [address], 02/04/2025 15:17:14 Result Notes None recorded. Problems Name Problem SNOMED Code Status Onset Date Resolution Date Notes Provider Name and Address Organization Details Recorded Time Acquired bilateral pes planus 4867990512661 9109 Active 2021 Not Available [facility] 3 04:18:31 History of total knee arthroplas ty 3085595203088 Active 2019 Not Available [facility] 3 04:18:31 Trigger finger of left hand 6117570978095 9107 Active 2020 Not Available [facility] 3 04:18:31 Trigger finger of right hand 7774729930893 9101 Active 2019 Not Available [facility] 3 04:18:31 Lupus erythemato rambo 995355037 Active Not Available [facility] 3 04:18:31 Osteoarthr itis of knee 759187382 Active Not Available [facility] 3 04:18:31 Hypertensi ve disorder 34279276 Active Not Available [facility] 3 04:18:32 Hypothyroi dism 43162038 Active Not Available [facility] 3 04:18:32 Acid reflux 416032339 Active Not Available [facility] 3 04:18:32 Urge incontinen ce of urine 20829883 Active 2022 Not Available [facility] 3 04:18:32 Gastroesop hageal reflux disease without esophagiti s 680098265 Active 2022 Not Available [facility] 3 04:18:31 Mild intermitte nt asthma 071317950 Active 2023 Vinnie Conteh MD [address], [address], [place], [address] , [place] [facility] 4 10:52:19 Mild persistent asthma 334629641 Active 2024 Vinnie Conteh MD [address], [address], [place], [address] , [place] [facility] 5 15:28:14 Liver enzymes level above reference range 034111110 Active 2024 Henna Wilson MD [address], [address], [place], [address] , [facility] 5 12:59:19 Epigastric pain 13569432 Active 2024 Henna Wilson MD [address], [address], [place], [address] , [facility] 5 12:59:40 Painless rectal bleeding 824980970 Active 2024 AUBREE Lee null, [facility] 5 12:08:45 Pain in right lower limb 177546427 Active 2024 Opal White null, [facility] 5 15:16:37 Pain of right lower leg 3973650295411 08 Active 2024 Opal White null, [facility] 5 15:16:53 Notes:Medical History: Depre ssion/Anxiety COVID infection Rhinitis Eosinophils 50/uL Early REM onset Obesity Methacholine (+) mild persistent asthma Mild restrictive airflow impairment Hypothyroidism Hyperlipidemia Hypertension EF 60% NATALIA Hepatic steatosis Granulomatous disease (lung, spleen) Urge urinary incontinence SLE Sepsis 2018 Vit D deficiency Osteoporosis Thoracolumbar DDD Pes planus Bilateral trigger finger Procedure History: T&A 2001 Appendectomy 2002 Cholecystectomy 2003 ANN 2006 EGD 2010 Colonoscopy 2010 Left MRM for stage IIIB 2013 Right prophylactic mastectomy 2013 Chemotherapy/Radiation therapy 2014 Right total knee arthroplasty 2015 Left total knee arthroplasty 2016 Cardiac catheterization 2016 BSO 2017 Right foot surgery 2018 Left shoulder arthroplasties 2019, 2020 Bilateral breast implants 2020, 2023 Left knee revision 2024 Occupational History: Disabled [employer] Problem Notes None recorded. Procedures Surgical History Date Name Laterality Status Provider Name and Address Organization Details Recorded Time 10/04/19 appendectomy completed Opal White [facility] 02/04/2025 15:14:33 Hysterectomy completed Not Available [facility] 11/01/2022 09:13:16 Rotator cuff surgery completed Not Available [facility] 11/01/2022 09:13:16 Knee Replacement completed Not Available [facility] 11/01/2022 09:13:16 Carpal tunnel surgery completed Not Available [facility] 11/01/2022 09:13:16 excision of bilateral breasts completed Not Available [facility] 11/01/2022 09:13:16 Foot Surgery completed Not Available [facility] 11/01/2022 09:13:16 Endoscopy completed Not Available [place] [address] 11/01/2022 09:13:16 colonoscopy completed Not Available [facility] 11/01/2022 09:13:16 Breast Implants completed Payton fernández MA [facility] 09/24/2024 15:15:52 total shoulder replacement completed Opal White [facility] 02/04/2025 15:15:03 Spinal Fusion completed Opal White [facility] 02/04/2025 15:15:23 Imaging Results None recorded. Procedure Notes None recorded. Medical Equipment None Reported. Allergies Allergen ID Allergen Name Allergen Category Reaction Reaction Severity Criticality Documentation Date Start Date Code Code System Note Provider Name and Address Organization Details Recorded Time 73811 adhesive tape environme nt,medica tion Not available Not available Not available 04/28/2024 60817 UNK Payton Bryson MA null, [place] [facility] 10:29:30 Medications Name Sig Start Date Stop Date Status Note LastModified by Organization Details LastModified Time celecoxib 200 mg capsule TAKE 1 CAPSULE BY MOUTH TWICE DAILY WITH MEALS 01/06 completed Not Available Not Available Not Available [...] tablet TAKE 1 TABLET BY MOUTH DAILY 01/06 completed Not Available Not Available Not Available promethazin e-DM 6.25 mg-15 mg/5 mL [...] 6 HOURS NEEDED FOR SHORTNESS OF BREATH 01/06 completed Not Available Not Available Not Available ketoconazol e 2 % shampoo APPLY TOPICALLY TO WET HAIR AND LEAVE IN FOR 30 MINUTES THEN RINSE OUT THREE DAYS A WEEK 01/06 completed Not Available Not Available Not Available quetiapine 300 mg tablet TAKE 1 [...] Not Available sucralfate 100 mg/mL oral suspension 01/06 completed Not Available Not Available Not Available ondansetron HCl 8 mg tablet TAKE 1 TABLET BY MOUTH EVERY 8 HOURS NEEDED FOR NAUSEA OR VOMITING 08/31 completed Not Available Not Available Not Available meloxicam 15 mg tablet Take 1 tablet every day by oral route. 2024 active Not Available Not Available Not Avai lable metoprolol succinate ER 200 mg tablet,exte nded [...] TABLET BY MOUTH THREE TIMES DAILY NEEDED 01/06 completed Not Available Not Available Not Available Ear Wax Removal Drops 6.5 % INSTILL 5 DROPS INTO THE AFFECTED EARS TWICE DAILY 01/06 completed Not Available Not Available Not Available Kenalog 10 mg/mL suspension for injection In office injection administe red by the provider 01/03 completed [facility]: [id number] Not Available Not Available [...] MOUTH EVERY 4 HOURS NEEDED FOR PAIN 01/06 completed Not Available Not Available Not Available [...] Available Not Available Not Available fluticasone propionate 44 mcg/actuati on HFA aerosol inhaler INHALE 2 PUFFS BY MOUTH TWICE DAILY active Not Available Not Available No t Available oxycodone 5 mg capsule TAKE 1 CAPSULE BY MOUTH EVERY 12 HOURS NEEDED FOR PAIN active Not Available Not Available No t Available metoprolol tartrate 50 mg tablet 06/19 completed Not Available Not Available Not Available docusate sodium 100 mg capsule TAKE 1 CAPSULE BY MOUTH DAILY 08/23 /2024 completed Not Available Not Available Not Available gabapentin 300 mg capsule 05/03 completed Not Available Not Available Not Available lidocaine HCl 2 % mucosal solution 06/19 completed Not Available Not Available Not Available omeprazole 20 mg capsule,del ayed release TAKE 1 TO 2 CAPSULES BY MOUTH EVERY DAY BEFORE A MEAL active Not Available Not Available No t [...] Not Available Not Available Not Available bisacodyl 5 mg tablet,alisha yed release TAKE 4 TABLETS BY MOUTH AT 3PM WITH 8OZ OF WATER 01/06 completed Not Available Not Available Not Available [...] e glycol 3350 17 gram/dose oral powder FOLLOW INSTRUCTI ONS GIVEN BY THE OFFICE 01/06 completed Not Available Not Available Not Available levofloxaci [...] sulfate HFA 90 mcg/actuati on aerosol inhaler INHALE 1 PUFF BY MOUTH EVERY 4 HOURS NEEDED 02/04 completed Not Available Not Available Not Available ketoconazol e 2 % topical cream APPLY [...] Available Not Available Not Available fluticasone propionate 110 mcg/actuati on HFA aerosol inhaler INHALE 2 PUFFS BY MOUTH TWICE DAILY active Not Available Not Available No t Available naproxen 500 mg tablet TAKE 1 [...] BY MOUTH THREE TIMES DAILY WITH MEALS 01/06 completed Not Available Not Available Not Available oxycodone 5 mg tablet TAKE 1 [...] % ear drops,suspe nsion INSTILL 4 DROPS INTO RIGHT EAR TWICE DAILY X7DAYS 01/06 completed Not Available Not Available Not Available bupropion HCl XL 150 mg 24 hr tablet, extended release TAKE 1 TABLET BY MOUTH EVERY DAY IN THE MORNING FOR DEPRESSIO N 01/06 completed Not Available Not Available Not Available [...] Not Available Not Available Not Available pregabalin 75 mg capsule TAKE 1 CAPSULE [...] administe red by the provider 01/03 completed [facility]: [id number] [phone]- [id number] Not Available Not [...] TABLET BY MOUTH DAILY FOR 14 DAYS 01/06 completed Not Available Not Available Not Available Stimulant Laxative Plus 8.6 mg-50 mg tablet TAKE 1 TABLET BY MOUTH ONCE DAILY active Not Available Not Available No t Available potassium chloride ER 20 mEq tablet,exte nded release TAKE 2 TABLETS BY MOUTH EVERY DAY AROUND THE CLOCK FOR 1 DAY 01/06 completed Not Available Not Available Not Available Hysingla ER 20 mg tablet, crush resistant, extended release TAKE 1 TABLET BY MOUTH EVERY 24 HOURS 04/28 completed Not Available Not Available Not Available naloxone 4 mg/actuatio n nasal spray ADMINISTE R 1 SPRAY IN EVERY NOSTRIL. MAY REPEAT ALTERNATE . NOSTILS EVERY 2-3 MINS UNTIL RESPONSIV E 01/06 completed Not Available Not Available Not Available Vitals Date Recorded Heart rate Respiratory rate Provider N josette and Address Organization Details Last Updated DateTime 10/07/2024 81 /min 14 /min Vinnie Conteh MD [address], [address], [place], [address], [facility] 10/07/2024 11:58:55 Date Recorded Body height Body mass index (BMI) Body weight Body temperature Heart rate Oxygen saturation Oxygen saturation in Arterial blood by Pulse oximetry Systolic blood pressure Diastolic blood pressure Provider Name and Address Organization Details Last Updated DateTime 165.1 cm 38.3 kg/m2 521391. 25 g 98.1 [degF] 81 /min 97 % 97 % 118 mm[Hg] 78 mm[Hg] Payton Bryson MA [employer] [facility] 11:55:18 Date Recorded Body height Body mass index (BMI) Body weight Heart rate Oxygen saturation Oxygen saturation in Arterial blood by Pulse oximetry Systolic blood pressure Diastolic blood pressure Provider Name and Address Organization Details Last Updated DateTime 165.1 cm 38.1 kg/m2 927592. 65 g 80 /min 98 % 98 % 120 mm[Hg] 80 mm[Hg] AUBREE Lee [facility] 12:30:19 Date Recorded Body height Body mass index (BMI) Body weight Heart rate Oxygen saturation Oxygen saturation in Arterial blood by Pulse oximetry Systolic blood pressure Diastolic blood pressure Provider Name and Address Organization Details Last Updated DateTime 165.1 cm 38.1 kg/m2 645480. 65 g 82 /min 99 % 99 % 122 mm[Hg] 82 mm[Hg] AUBREE Lee [facility] 15:30:34 Date Recorded Heart rate Heart rate Respiratory rate Provider Name and Address Organization Details Last Updated DateTime 01/06/2025 91 /min 91 /min 15 /min Vinnie Conteh MD [address], [address], [place], [address], [employer] [facility] 01/06/2025 14:20:35 Date Recorded Body height Body mass index (BMI) Body weight Body temperature Oxygen saturation Oxygen saturation in Arterial blood by Pulse oximetry Systolic blood pressure Diastolic blood pressure Provider Name and Address Organization Details Last Updated DateTime 165.1 cm 38.1 kg/m2 607221. 65 g 98.5 [degF] 96 % 96 % 138 mm[Hg] 82 mm[Hg] Janet Zimmer MA [facility] [employer] [facility] 14:10:00 Date Recorded Body height Body mass index (BMI) Body weight Provider Name and Address Organization Details Last Updated DateTime 02/04/2025 165.1 cm 38.3 kg/m2 554866.25 g Opal White [facility] [employer] [facility] 02/04/2025 15:11:41 Social History Question Answer Notes LastModified by Organizat ion Details LastModified Time Tobacco Smoking Status Never Smoker Not Available [facility] 11/01/2022 09:13:04 Do You Have An Advance Directive? No [id number] Information not available 11/01/2022 What Is Your Level Of Caffeine Consumption? None [id number] Information not available 11/01/2022 In The 14 Days Before Symptom Onset, Have You Had Close Contact With A Laboratory-confirm ed COVID-19 While That Case Was Ill? No [id number] Information not available 11/01/2022 In The 14 Days Before Symptom Onset, Have You Had Close Contact With A Person Who Is Under Investigation For COVID-19 While That Person Was Ill? No [id number] Information not available 11/01/2022 What Type Of Diet Are You Following? REGULAR [id number] Information not available 11/01/2022 Do You Have An Electrostatic Air Filter? Yes Information not available 04/28/2024 Do You Have A Humidifier? Yes Information not available 04/28/2024 Do You Have Moisture Problems In Your Home? No Information not available 04/28/2024 What Was The Date Of Your Most Recent Tobacco Screening? 02/04/2025 [email or web address] Information not available 02/04/2025 Do You Have Any Pets? No Information not available 04/28/2024 What Is Your Relationship Status? [id number] Information not available 11/01/2022 Do You Use Your Seat Belt Or Car Seat Routinely? Yes Information not available 04/28/2024 Do You Have Smoke And Carbon Monoxide Detectors In Your Home? Yes Information not available 04/28/2024 Are You Passively Exposed To Smoke? No Information no t available 04/28/2024 Do You Use Sunscreen Routinely? No Information not available 04/28/2024 Has Tobacco Cessation Counseling Been Provided? No [id number] Information not available 11/01/2022 Have You Recently Traveled Abroad? No [id number] Information not available 11/01/2022 Sex: Female Functional Status Question Answer Note LastModified by Organizat ion Details LastModified Time Do you use any illicit or recreational drugs? No [id number] Information not available 11/01/2022 Do you or have you ever used any other forms of tobacco or nicotine? No [id number] Information not available 11/01/2022 What is your level of alcohol consumption? None [id number] Information not available 11/01/2022 Are you currently employed? No Information not available 04/28/2024 Have you been exposed to chemicals or toxins? No not that aware of [email or web address] Information not available 01/06/2025 What is your exercise level? None [id number] Information not available 11/01/2022 Mental Status Question Answer Note LastModified by Organization D etails LastModified Time Do you feel stressed (tense, restless, nervous, or anxious, or unable to sleep at night)? [id number] Information not available 04/28/2024 Family History Relationship Description Onset Age of this Age Resolved Age Notes LastModified by Organization Details LastModified Time Maternal Grandmother Heart disease [id number] Not available 11/01/2022 09:13:17 Maternal Aunt Heart disease [id number] Not available 11/01/2022 09:13:17 Father Migraine Not [...] Not available 2023 10:57:28 Maternal Uncle Malignant neoplasm of prostate Not available 2023 10:57:39 Daughter Asthma Not available 1 10:41:36 Medical History Condition Response BLINDNESS N KIDNEY STONES N MRSA N CARPAL TUNNEL SYNDROME N LUNG DISEASE/DISORDER N HISTORY OF DRUG ABUSE N RADIATION / CHEMOTHERAPY N COPD N SPORTS INJURY N ANKLE PAIN N BLOOD DISEASES N SCHIZOPHRENIA N SHINGLES N BOWEL PROBLEMS N SHOULDER PAIN N DEPRESSION (INCLUDING POST ) Y STROKE/TIA N KNEE PAIN N ULCERS N [...] N NEUROPATHY N AIDS/HIV N FRACTURES N ELBOW PAIN N HYPERTENSION Y TOURETTE'S N ANXIETY DISORDER N Metal allergy N BLOOD TRANSFUSION N ANEMIA/BLOOD DISORDER Y BIPOLAR DISORDER N BRONCHITIS N OSTEOARTHRITIS N TUBERCULOSIS N FOOT PROBLEM N HEART VALVE DISORDERS N ALLERGIES/HAYFEVER N SOFT TISSUE INJURY N INFECTIOUS DISEASE N HEART ARRHYTHMIA N INSOMNIA N RHEUMATOID ARTHRITIS N HIGH CHOLESTEROL / HYPERLIPIDEMIA N EDEMA N CHRONIC PAIN SYNDROME N CAROTID BLOCKAGE N BACK / NECK PROBLEMS N HAVE YOU BEEN HOSPITALIZED OR SEEN IN [facility] IN THE PAST YEAR ? N BURSITIS N HERNIATED DISC N DIALYSIS N FIBROMYALGIA N OSTEOPOROSIS N ARTHRITIS Y NO SIGNIFICANT PAST MEDICAL HISTORY N PERIPHERAL NEUROPATHY N DIABETES, TYPE N HEARTBURN / REFLUX N HEPATITIS / LIVER DISEASE N GOUT N SLEEP DISORDER N ALZHEIMER'S DISEASE N HERPES N SEIZURES/EPILEPSY N HEADACHES/MIGRAINES N VASCULAR DISEASE N HIP PAIN N Blood Disorder N DIZZINESS N HEAD TRAUMA OR INJURY N HEART DISEASE/HEART PROBLEMS N MULTIPLE SCLEROSIS N CARDIAC ARRHYTHMIA N CANCER: SPECIFY Y ANESTHESIA COMPLICATIONS N ATRIAL FIBRILLATION N AUTOIMMUNE DISEASE N Gynecological HistoryNo gynecological history recorded. Obstetrics History GPAL:G 0 P 0 0 0 0 Past Encounters Encounter ID Performer Location Encounter Start Date Encounter Closed Date Diagnosis/Indication Diagnosis SNOMED-CT Code Diagnosis ICD10 Code Diagnosis Note [id number] Ankur Espinal MD [facility] [address] [place] [place] [address] 01/25/2021 00:00:00 01/25/2021 16:40:12 [id number] Ankur Espinal MD [facility] [address] [place] [address] 04/05/2021 00:00:00 04/05/2021 14:39:42 [id number] Ankur Espinal MD [facility] [address] [place] [address] 04/12/2021 00:00:00 04/12/2021 15:46:41 [id number] Ankur Espinal MD [facility] [address] [place] [address] 04/19/2021 00:00:00 04/19/2021 14:45:42 [id number] Ankur Espinal MD [facility] [address] [place] [address] 05/17/2021 00:00:00 05/31/2021 09:08:02 [id number] _ATHN_MIGR ATION_1 _ATHENA_M IGRATION_ DEFAULT_1 _1 , 06/15/2021 00:00:00 06/15/2021 15:14:16 [id number] Ankur Espinal MD [facility] [place] [address] [place] [place] [address] 06/21/2021 00:00:00 06/21/2021 14:32:55 [id number] Ankur Espinal MD [facility] [place] [address] [place] [address] 08/02/2021 00:00:00 08/08/2021 14:20:31 [id number] Ankur Espinal MD [facility] [address] [place] [address] 09/15/2021 00:00:00 09/15/2021 14:30:27 [id number] Ankur Espinal MD [facility] [place] [address] [place] [address] 11/17/2021 00:00:00 11/17/2021 15:28:48 [id number] [facility] [place] [address] [place] [address] 12/01/2021 00:00:00 12/01/2021 18:07:39 [id number] Ankur Espinal MD [facility] [place] [address] [place] [address] 01/03/2022 00:00:00 01/03/2022 17:30:11 [id number] [facility] [place] [address] [place] [address] 01/26/2022 00:00:00 01/27/2022 07:31:45 [id number] [facility] [place] [address] [place] [address] 02/02/2022 00:00:00 02/03/2022 09:58:36 [id number] [facility] [place] [address] [place] [address] 03/23/2022 00:00:00 03/24/2022 10:00:09 [id number] Ankur Espinal MD [facility] [place] [address] [place] [address] 04/04/2022 00:00:00 04/04/2022 15:46:20 [id number] Ankur Espinal MD [facility] [place] [address] [place] [address] 06/29/2022 00:00:00 06/29/2022 13:11:09 [id number] Ankur Espinal MD [facility] [place] [address] [place] [address] 09/07/2022 00:00:00 09/07/2022 14:14:38 [id number] Ankur Espinal MD [facility] [place] [address] [place] [address] 11/02/2022 14:09:04 11/02/2022 15:07:21 Low back pain [id number] M54.50 Mechanical complication of implant 561631715 T85.698D Knee joint painful on movement 942531510 M25.569 Spinal hernan nosis of lumbar region 47568903 M48.061 History of left total knee replacement 3751866166 048431 Z96.652 History of right total knee replacement 1953057065 114358 Z96.651 Pain of ri ght shoulder joint 5167457357 4183332 M25.511 Tendinitis of right rotator cuff 9324181116 1357666 M67.813 [id number] Scott Lucas MD [facility] [address] [place] [address] 12/11/2022 14:05:05 12/11/2022 14:38:46 Urge incontinence of urine 13542282 N39.41 Negative ua, low residual, went over options, will try Gemtesa 75 mg a day. [id number] Henna Wilson MD [facility] General Surgery [address] [place] [address] 03/14/2023 15:49:07 04/04/2023 13:12:05 Gastroesophageal reflux disease without esophagitis 264837480 K21.9 [id number] Ankur Espinal MD [facility] [place] [address] [place] [address] 03/29/2023 13:07:35 03/29/2023 13:36:11 Low back pain 795021195 M54.50 History of bilateral total knee replacement 0230994132 158598 Z96.653 Bilateral sacroiliac joint pain 2174376001 9895849 M53.3 [id number] Henna Wilson MD [facility] General Surgery [address] [address] 05/16/2023 15:06:28 05/16/2023 15:28:25 Gastroesophageal reflux disease without esophagitis 067984633 K21.9 [id number] Ankur Espinal MD [facility] [place] [address] [place] [address] 05/17/2023 13:06:34 05/17/2023 14:32:54 Pain of right knee joint 6504729487 34743 M25.561 History of bilateral total knee replacement 5014309721 474831 Z96.653 History of right total knee replacement 3646421452 622356 Z96.651 Mechanical complication of implant 460321086 T85.698A T84.039A [id number] Ankur Espinal MD [facility] [place] [address] [place] [address] 05/22/2023 14:43:07 05/22/2023 15:21:27 History of total knee arthroplasty 5509210336 105 Z96.096 [id number] Henna Wilson MD [facility] General Surgery [address] [place] [address] 02/06/2024 14:11:19 02/06/2024 14:44:49 Gastroesophageal reflux disease without esophagitis 093878079 K21.9 [id number] Vinnie Conteh MD [facility] [address] 04/28/2024 10:17:28 04/29/2024 08:48:30 Dyspnea on exertion 05241343 R06.09 R05.9 T78.40XA D89.9 C50.912 J43.9 [id number] Vinnie Conteh MD [facility] [address] [address] 06/25/2024 10:05:36 06/25/2024 12:53:26 Mild intermittent asthma 954565491 J45.20 [id number] Vinnie Conteh MD [facility] [address] [address] 09/24/2024 15:04:24 09/29/2024 14:54:32 Mild persistent asthma 121266061 J45.30 [id number] Vinnie Conteh MD [address] [address] 10/07/2024 11:33:54 10/07/2024 14:07:21 Mild persistent asthma 061799086 J45.30 [id number] Henna Wilson MD [facility] General Surgery [address] [place] [address] 10/22/2024 12:27:09 10/22/2024 12:56:20 Gastroesophageal reflux disease without esophagitis 876121427 K21.9 Liver enzy mes level above reference range 792201225 R74.01 Epigastric pain 44098827 R10.13 [id number] Henna Wilson MD [facility] General Surgery [address] [place] [address] 11/05/2024 15:28:46 11/05/2024 16:20:13 Gastroesophageal reflux disease without esophagitis 327625237 K21.9 Liver enzy mes level above reference range 055369140 R74.01 Epigastric pain 01747248 R10.13 OUT OF PROPORTION WITH EXAM. [id number] Vinnie Conteh MD [facility] [address] [place] [address] 01/06/2025 13:57:27 01/06/2025 14:40:37 Mild persistent asthma 683791513 J45.30 [id number] Yadiel Guzman MD [facility] [place] [address] [place] [address] 02/04/2025 14:57:59 02/04/2025 16:01:27 Pain of right lower leg 5984797056 87512 M79.661 Health Concerns Section Related Observation LastModified by Organization Detai ls LastModified Time None Recorded Concern Status LastModified by Organization Details LastModified Time None Recorded Advance Directives Directive N: Payers Encounter Date Sequence Insurance Name Policy Number Policy Casarez Covered Member ID Casarez Member ID Guarantor Name 10/07/2024 1 [facility] ON OR AFTER 03/03/21 (MEDICAID REPLACEMENT - HMO) Chela Mcnulty [id number] Chela Mcnulty 10/22/2024 1 [facility] ON OR AFTER 03/03/21 (MEDICAID REPLACEMENT - HMO) Chela Mcnulty [id number] Chela Mcnulty 11/05/2024 1 [facility] ON OR AFTER 03/03/21 (MEDICAID REPLACEMENT - HMO) Chela Mcnulty [id number] Chela Mcnulty 01/06/2025 1 [facility] ON OR AFTER 03/03/21 (MEDICAID REPLACEMENT - HMO) Chela Mcnulty [id number] Chela Mcnulty 02/04/2025 1 [facility] ON OR AFTER 03/03/21 (MEDICAID REPLACEMENT - HMO) Chela Mcnulty [id number] Chela Mcnulty Notes Date Note Type Note Provider Name and Address Organization Details Recorded Time 10/07/2024 text/html Primary care/Ref erring provider: Key Amaro MD; Charles Kingston MD CC: I was hospitalized at [facility] from 10/01/24 to 10/03/24 for left knee [...] staircase, wipingAlleviating factors: rest Modified [employer] ([employer]) Dyspnea Scale - Grade 2Grade 0 [...] slight chance of dozing. Vinnie Conteh MD [address] [place] [address], [facility] [address], [place], [address], [place] [facility] 10/07/2024 12:18:38 10/22/2024 text/html CHELA WAS SEEN IN THE OFFICE TODAY FOR A F/U. PT HAS GERD AND IS DOING WELL . PT IS C/O RUQ PAIN AND WAS DX WITH FATTY LIVER . NO LESIONS NOTED ON CT ABD . PT IS S/P LAP ANAM . LABS : AST/ ALT 29/ 43, HEPC AB (-) , HEP B S AG (-), HB 14, PT REPORTS WT 240LBS NOW 229, SHE REPORTS CHRONIC NAUSEA BUT NO VOMITING . PT IS ON OMEPRAZOLE 20 MG BID , FAMOTIDINE 40 MG AT BED TIME . PT REPORTS CHRONIC PYROSIS. Henna Wilson MD [address], [place], [address], [facility] 10/22/2024 13:02:33 11/05/2024 text/html CHELA WAS SEEN [...] AFTER EATING . Henna Wilson MD [address], [place], [address], [facility] 11/05/2024 16:09:07 01/06/2025 text/html Primary care/Ref erring provider: Key Amaro MD; Charles Kingston MD CC: I am still having exertional dyspnea going from bedroom to bathroom but I keep forgetting to use my rescue inhaler. I need a stronger maintenance inhaler. Patient is here to go over her asthma management. Initial development of shortness of breath: 1989Duration of shortness of breath: 37 yearsCondition of shortness of breath: stableTiming of shortness of breath: noneFrequency: up to 3 times a dayLimits activities: yesAggravating factors: walking, going up a 7-step staircase, wipingAlleviating factors: rest Modified [employer] ([employer]) Dyspnea Scale - Grade 2Grade 0 [...] history: Albuterol HFA as needed since 2014, last used in December 2024 Flovent HFA 44 mcg 2 puffs BID 09/2024-01/2025 Other symptoms:Drooling: noDysarthria: noNeck pain: noOdynophagia: noDysphagia: [...] in the afternoon when circumstances permit - 2Sitting and talking to someone - 0Sitting quietly after lunch without alcohol - 2In a car, while stopped for a few minutes in the traffic - 0TOTAL SCORE 4Subjectively, patient has a slight chance of dozing. Vinnie Conteh MD [address] [place] [address], [facility] [address], [place], [address], [facility] [place] [facility] 01/06/2025 14:34:38 OBGyn Episode No OBEpisode recorded.
--- NOTE | 2025-02-06 15:28 | ED_ITS ---
HPI - Back Pain/Injury General Chief Complaint: Back Pain/Injury <Amanda Whittaker MAINTENANCE SUPERVISOR 2ND SHIFT - Last Filed: 02/06/25 15:31> Stated Complaint: back pain <Amanda Whittaker APRN - Last Filed: 02/06/25 15:31> Time Seen by Provider: 02/06/25 15:25 <Amanda Whittaker MAINTENANCE SUPERVISOR 2ND SHIFT - Last Filed: 02/06/25 15:31> Focused HPI: Patient is a 54-year-old female who presents to the ER with 3 weeks of right back, flank, and lower abdominal pain. She reports the pain became significantly worse this morning. Patient reports it hurts to sit. She endorses recent urinary urgency and frequency. Patient endorses a history of high blood pressure, asthma, and breast cancer. She denies any shortness of breath, chest pain, or numbness/tingling in her extremities GENERAL: Well-appearing, well-nourished, and in mild distress d/t pain. HEAD: Normocephalic, atraumatic. CHEST: Clear to auscultation. ?No respiratory distress. HEART: Regular rate and rhythm.? NEURO: ?Alert and oriented x3. Patient screened in triage and initial orders placed.? ?Additional care and disposition to be based upon?diagnostic testing and treatment. <Amanda Whittaker APRN - Last Filed: 02/06/25 15:31> History of Present Illness HPI Narrative: 54-year-old female with history of chronic pain on narcotics presents to the emergency department for back pain over the past 3 months. Patient states the pain starts in her back and radiates down her right buttock and into her leg. She states that time she has tingling but no numbness to her leg. She denies saddle anesthesia, injury or trauma, fever, leg weakness or numbness. She states over the past couple of weeks she has developed some urinary frequency and suprapubic pain. She denies dysuria or urinary retention. Denies bowel incontinence. She has not been on any recent steroids or immunosuppressants. Denies IVDU. Patient has been seen several times in our ED over the past few years for similar symptoms. Her PCP manages her chronic pain. She is currently taking hydrocodone for shoulder pain, and is also reportedly on meloxicam and Lyrica. <Sheri Cortez PA-C - Last Filed: 02/06/25 19:57> Related Data Home Medications: Home Medications ?Medication ?Instructions ?Recorded ?Confirmed ?Last Taken ?Type venlafaxine 225 mg tablet,extended 225 mg PO QAM 10/13/19 12/18/24 09/30/24 History release 24 hr famotidine 20 mg tablet 20 mg PO QAM 10/11/23 12/18/24 09/30/24 History ferrous sulfate 325 mg (65 mg 325 mg PO DAILY 10/11/23 12/18/24 09/23/24 History iron) tablet (FeroSul) multivitamin 1 tablet PO DAILY 10/11/23 12/18/24 09/23/24 History nifedipine 30 mg tablet,extended 30 mg PO QAM 10/11/23 12/18/24 09/30/24 History release trazodone 150 mg tablet 150 mg PO HS 10/11/23 12/18/24 09/30/24 History albuterol sulfate 90 mcg/actuation 2 puff inhalation Q4-6H PRN 09/16/24 12/18/24 Unknown History aerosol inhaler shortness of breath or wheezing metoprolol succinate 100 mg 100 mg PO HS 09/16/24 12/18/24 09/30/24 History tablet,extended release 24 hr mirtazapine 15 mg tablet 15 mg PO HS 09/16/24 12/18/24 09/30/24 History omeprazole 40 mg capsule,delayed 40 mg PO QAM 09/16/24 12/18/24 09/30/24 History release <Amanda Whittaker APRN - Last Filed: 02/06/25 15:31> Allergies/Adverse Reactions: Allergies Allergy/AdvReac Type Severity Reaction Status Date / Time meperidine AdvReac Severe HEADACHE Verified 12/18/24 07:09 scopolamine AdvReac Severe Headache Verified 12/18/24 07:09 adhesive tape AdvReac Unknown Rash, Verified 12/18/24 07:09 REDNESS, BURNING silver (From Tegaderm AG AdvReac BLISTER/REDNESS Verified 12/18/24 07:09 Mesh) AT SITE <Amanda Whittaker APRN - Last Filed: 02/06/25 15:31> Review of Systems Review of Systems: All systems reviewed & are unremarkable except as noted in HPI and below <Sheri Cortez PA-C - Last Filed: 02/06/25 19:57> [facility] Past Medical History Medical History: Medical History Hypothyroidism, unspecified hx of, no longer on medications Hearing loss Gastroesophageal reflux disease History of breast cancer s/p bilateral mastectomy, chemo, radiation History of revision of total replacement of right knee joint Systemic lupus erythematosus Eczema Pancreatitis COPD (chronic obstructive pulmonary disease) Asthma Migraines Iron deficiency anemia History of blood transfusion. Hypertension Depression Sepsis <Amanda Whittaker, KELLIE - Last Filed: 02/06/25 15:31> Surgical History Surgical History: Surgical History History of knee replacement procedure of right knee History of knee surgery 11/08/23- Rev right TKA History of hysterectomy History of repair of right rotator cuff Status post trigger finger release History of fusion of cervical spine Status post transverse rectus abdominis muscle flap breast reconstruction History of endoscopic sinus surgery History of bilateral mastectomy History of appendectomy History of cholecystectomy History of carpal tunnel release Port-A-Cath in place <Amanda Whittaker, KELLIE - Last Filed: 02/06/25 15:31> Family History Family History: Family History Other Family history of malignant neoplasm Hypertension <Amanda Whittaker, MAINTENANCE SUPERVISOR 2ND SHIFT - Last Filed: 02/06/25 15:31> Social History Social History: Social History Social History: Surrogate medical decision maker: Domingo Mcnulty, spouse. Code status: Full code. Smoking status: Never smoker Second hand tobacco smoke exposure: No Additional smoking assessment comments: chewed tobacco occassionally as a teen Alcohol intake: never Substance use: never Substance use type: does not use Do You Feel Safe in your Home?: Yes Lack of Transportation: No Lack of Food: Never True Current Housing: I Have Housing Concerned About Future Housing: No Difficulty Paying Gas/Electric Bills: No Difficulty Paying for Meds: No Currently Unemployed: No Education: Decline to Answer Difficulty w/ Childcare or Family Care: No Living arrangements: with family Additional living arrangements comments: HUSB Occupation/Education: unemployed Spiritual care concerns: No <Amanda Whittaker APRN - Last Filed: 02/06/25 15:31> Exam Narrative: GENERAL: Well-appearing, well-nourished, and in no acute distress. HEAD: Normocephalic, atraumatic. EYES: EOMI. ENT: Nares clear, no rhinorrhea or epistaxis. Mucous membranes moist. NECK: Supple. BACK: Tenderness to the lumbar spine and right paraspinous muscles with no overlying skin changes, crepitus, step-offs or deformities. Positive right straight leg raise. CHEST: Clear to auscultation. No respiratory distress. HEART: Regular rate and rhythm. No murmur heard. Normal peripheral pulses. ABDOMEN: Normoactive bowel sounds. Abdomen soft with mild tenderness to the suprapubic region. No rebound, guarding or rigidity. No CVA tenderness. EXTREMITIES: Normal range of motion. No edema. SKIN: Warm, dry, no rash. NEURO: No focal deficits. Alert and oriented x3. BLE strength 5/5. No saddle anesthesia, sensation intact throughout. <Sheri Cortez PA-C - Last Filed: 02/06/25 19:57> Course SUPERVISOR CELL OPERATION/PA Physician Supervision Patient's HPI, Exam, and MDM were reviewed and I agreed with the workup and disposition done in the emergency department by the MLP. I was available for consultation, but was not directly involved with patient's care nor did I evaluate the patient. <Winston Rollins MD - Last Filed: 02/07/25 06:50> Vital Signs Vital signs: Vital Signs Temperature 36.6 C 02/06/25 15:22 Pulse Rate 99 02/06/25 15:22 Respiratory Rate 18 02/06/25 15:22 Blood Pressure 186/102 H 02/06/25 15:22 Pulse Oximetry 100 02/06/25 15:22 Oxygen Delivery Room Air 02/06/25 15:22 Temperature 36.3 C L 02/06/25 17:32 Pulse Rate 75 02/06/25 19:28 Respiratory Rate 16 02/06/25 19:28 Blood Pressure 147/88 H 02/06/25 19:28 Pulse Oximetry 97 02/06/25 19:28 Oxygen Delivery Room Air 02/06/25 15:22 <Amanda Whittaker APRN - Last Filed: 02/06/25 15:31> Vital Signs Temperature 36.6 C 02/06/25 15:22 Pulse Rate 99 02/06/25 15:22 Respiratory Rate 18 02/06/25 15:22 Blood Pressure 186/102 H 02/06/25 15:22 Pulse Oximetry 100 02/06/25 15:22 Oxygen Delivery Room Air 02/06/25 15:22 Temperature 36.3 C L 02/06/25 17:32 Pulse Rate 75 02/06/25 19:28 Respiratory Rate 16 02/06/25 19:28 Blood Pressure 147/88 H 02/06/25 19:28 Pulse Oximetry 97 02/06/25 19:28 Oxygen Delivery Room Air 02/06/25 15:22 <Sheri Cortez PA-C - Last Filed: 02/06/25 19:57> Vital Signs Temperature 36.6 C 02/06/25 15:22 Pulse Rate 99 02/06/25 15:22 Respiratory Rate 18 02/06/25 15:22 Blood Pressure 186/102 H 02/06/25 15:22 Pulse Oximetry 100 02/06/25 15:22 Oxygen Delivery Room Air 02/06/25 15:22 Temperature 36.3 C L 02/06/25 17:32 Pulse Rate 75 02/06/25 19:28 Respiratory Rate 16 02/06/25 19:28 Blood Pressure 147/88 H 02/06/25 19:28 Pulse Oximetry 97 02/06/25 19:28 Oxygen Delivery Room Air 02/06/25 15:22 <Winston Rollins MD - Last Filed: 02/07/25 06:50> MDM - Back Pain/Injury MDM Narrative Medical decision making narrative: 54-year-old female with history of chronic pain on narcotics and hypertension presents to the emergency department for low back pain that wraps to the right buttock and radiates down the right leg for the past 3 months. No injury or trauma. She is also endorsing urinary frequency and suprapubic pain for the past couple of weeks. Vitals with hypertension. Patient is afebrile and nontoxic appearing. Exam is significant for the above. She is neurologically intact. No saddle anesthesia. She does have a positive right straight leg raise. Per chart review patient has been seen in our ED several times over the past few years for the same complaint. CT abdomen pelvis without contrast obtained in triage to rule out a kidney stone which shows scattered small foci of patchy ground-glass opacities in the lungs which may represent inflammation or infection. Patient denies any signs or symptoms of pneumonia. CT also shows hepatomegaly with steatosis otherwise no acute abdominal or pelvic process is detected. UA with trace ketones, no UTI. Post void bladder scan obtained to ensure patient is not retaining which shows 0mls. Presentation consistent with lumbar radiculopathy. Patient was given IM Decadron, Tylenol and Flexeril in the ED. She is also requesting lidocaine patches (allergy to adhesives but states she has tolerated these fine before.) She was advised to continue her narcotics and Lyrica at home. Will also add on steroids for home. Advised to follow closely with her PCP. Strict ED return precautions discussed. She is agreeable with the plan verbalized understanding. Discharged in stable condition. <Sheri Cortez PA-C - Last Filed: 02/06/25 19:57> Lab Data Labs: Lab Results 02/06/25 Range/Units 18:49 Urine Color Yellow (Yellow) Urine Appearance Clear (Clear) Urine pH 6.0 (5.0-9.0) Ur Specific [place] 1.031 (1.001-1.035) Urine Protein Negative (Negative) mg/dL Urine Glucose (UA) Negative (Negative) mg/dL Urine Ketones Trace H (Negative) mg/dL Ur Blood (Man) Negative (Negative) Urine Nitrate Negative (Negative) Urine Bilirubin Negative (Negative) Urine Urobilinogen 0.2 (<2.0) mg/dL Leukocyte Esterase Rfl Negative (Negative) RAEAGN/UL <Amanda Whittaker APRN - Last Filed: 02/06/25 15:31> Lab Results 02/06/25 Range/Units 18:49 Urine Color Yellow (Yellow) Urine Appearance Clear (Clear) Urine pH 6.0 (5.0-9.0) Ur Specific [place] 1.031 (1.001-1.035) Urine Protein Negative (Negative) mg/dL Urine Glucose (UA) Negative (Negative) mg/dL Urine Ketones Trace H (Negative) mg/dL Ur Blood (Man) Negative (Negative) Urine Nitrate Negative (Negative) Urine Bilirubin Negative (Negative) Urine Urobilinogen 0.2 (<2.0) mg/dL Leukocyte Esterase Rfl Negative (Negative) RAEGAN/UL <Sheri Cortez PA-C - Last Filed: 02/06/25 19:57> Lab Results 02/06/25 Range/Units 18:49 Urine Color Yellow (Yellow) Urine Appearance Clear (Clear) Urine pH 6.0 (5.0-9.0) Ur Specific [place] 1.031 (1.001-1.035) Urine Protein Negative (Negative) mg/dL Urine Glucose (UA) Negative (Negative) mg/dL Urine Ketones Trace H (Negative) mg/dL Ur Blood (Man) Negative (Negative) Urine Nitrate Negative (Negative) Urine Bilirubin Negative (Negative) Urine Urobilinogen 0.2 (<2.0) mg/dL Leukocyte Esterase Rfl Negative (Negative) RAEGAN/UL <Winston Rollins MD - Last Filed: 02/07/25 06:50> Discharge Plan Discharge Clinical Impression: Lumbar radiculopathy, Hepatic steatosis <Amanda Whittaker APRN - Last Filed: 02/06/25 15:31> Patient Disposition: Home <Amanda Whittaker APRN - Last Filed: 02/06/25 15:31> Condition: Stable <Amanda Whittaker APRN - Last Filed: 02/06/25 15:31> Instructions: Antibiotic Form, Lumbar Radiculopathy (ED), Lower Back Exercises (ED) <Amanda Whittaker APRN - Last Filed: 02/06/25 15:31> Additional Instructions: You were evaluated in the emergency department for back pain. Your presentation is consistent with sciatica as discussed. Please follow-up closely with her PCP and continue with physical therapy. Take medications as directed. Return to the emergency department if you develop a fever, weakness or numbness of your legs, numbness of your groin, you lose control of her bowel or bladder, or other concerning symptoms. <Amanda Whittaker APRN - Last Filed: 02/06/25 15:31> Patient Language: Kyrgyz <Amanda Whittaker APRN - Last Filed: 02/06/25 15:31> Prescriptions: New cyclobenzaprine 10 mg tablet 10 mg PO TID PRN (Reason: muscle spasm) Qty: 14 0RF prednisone 20 mg tablet 40 mg PO DAILY Qty: 10 0RF lidocaine 5 % adhesive patch,medicated 1 patch topical DAILY Qty: 15 0RF Rx Instructions: leave on most painful area for up to 12 hrs. do not use more than 1 patch in a 24-hour period. No Action doxycycline hyclate 100 mg tablet 100 mg PO DAILY Qty: 10 0RF venlafaxine 225 mg tablet extended release 24hr 225 mg PO QAM nifedipine 30 mg tablet extended release 30 mg PO QAM famotidine 20 mg tablet 20 mg PO QAM trazodone 150 mg tablet 150 mg PO HS ferrous sulfate [FeroSul] 325 mg (65 mg iron) tablet 325 mg PO DAILY multivitamin Tablet 1 tablet PO DAILY albuterol sulfate 90 mcg/actuation HFA aerosol inhaler 2 puff INHALATION Q4-6H PRN (Reason: shortness of breath or wheezing) metoprolol succinate 100 mg tablet extended release 24 hr 100 mg PO HS mirtazapine 15 mg tablet 15 mg PO HS omeprazole 40 mg capsule,delayed release(DR/EC) 40 mg PO QAM dicyclomine 20 mg tablet 20 mg PO QID PRN (Reason: abdominal pain) Qty: 30 0RF celecoxib [Celebrex] 200 mg Capsule 200 mg PO BIDWM 30 Days Qty: 60 0RF <Amanda Whittaker APRN - Last Filed: 02/06/25 15:31> Follow-up/Referrals: Unruly,Manan Mackey [Primary Care Provider] - <Amanda Whittaker APRN - Last Filed: 02/06/25 15:31>
[2025-02-06 17:32] VITALS: BP 155/103; PULSE 81; RESP 20; TEMP 36.3; O2SAT 96
[2025-02-06] MEDS: KETOROLAC (*BKC) 60 MG/2 ML VIAL IM (18:29)
--- OUTSIDE RECORDS SUMMARY | 2025-02-06 18:33 | XMS_ITS | Clinical Summary ---
Author Organization [facility] Address [address] [place] [address] Phone Care Team Providers Care Microwave Engineer Name Role Phone Key Tolliver MD Primary [...] Insurance MEDICAID [employer] Care Teams Microwave Engineer Relationship Specialty Start Date End Date Key Tolliver MD [address] [place] [address] PCP - General Internal Medicine 03/14/20
[2025-02-06 19:08] LABS: Add Urine Microscopic? NO; Appearance Urine Clear (Clear); Bilirubin Urine Negative (Negative); Blood Urine Negative (Negative); Color Urine Yellow (Yellow); Glucose Urine UA Negative (Negative); Ketones Urine Trace mg/dL (Negative); Leukocyte Esterase Ur Negative LEU/UL (Negative); Nitrate Urine Negative (Negative); Protein Urine Negative (Negative); Specific Grav Ur 1.031 (1.001-1.035); Urobilinogen Urine 0.2 mg/dL (<2.0)
[2025-02-06] MEDS: ACETAMINOPHEN 500 MG TABLET 1000 MG PO (19:15)
[2025-02-06] MEDS: CYCLOBENZAPRINE HCL 10 MG TABLET PO (19:15)
[2025-02-06] MEDS: dexAMETHasone SOD PHOS INJ 10 MG/ML 1 ML VIAL IM (19:17)
[2025-02-06 19:28] VITALS: BP 147/88; PULSE 75; RESP 16; O2SAT 97
--- NOTE | 2025-02-06 19:31 | PC.NURSE ---
Received report from DARRON Moreno for cont. of care. Pt AOx4 lying on stretcher c/o 10/10 lower back pain, non-radiating. Refer to MAR for medication administration. Bladder scan for PRV done at bedside with 0ml noted.
== END 2025-02-06 20:22 | disposition home or self-care (01) ==
PROVIDERS: Registered Nurse; Emergency Provider Physician Assistant; PCP Internal Medicine Infectious Disease
DX: M54.16 Radiculopathy, lumbar region (principal); K76.0 Fatty (change of) liver, not elsewhere classified; J44.9 Chronic obstructive pulmonary disease, unspecified; I10 Essential (primary) hypertension; M32.9 Systemic lupus erythematosus, unspecified; D50.9 Iron deficiency anemia, unspecified; G89.29 Other chronic pain; F32.A Depression, unspecified; Z96.651 Presence of right artificial knee joint; Z98.1 Arthrodesis status; Z85.3 Personal history of malignant neoplasm of breast; Z90.13 Acquired absence of bilateral breasts and nipples; Z92.21 Personal history of antineoplastic chemotherapy; Z92.3 Personal history of irradiation; Z87.891 Personal history of nicotine dependence; Z90.710 Acquired absence of both cervix and uterus; Z90.49 Acquired absence of other specified parts of digestive tract; Z79.891 Long term (current) use of opiate analgesic; Z79.899 Other long term (current) drug therapy
CPT/HCPCS: 74176; 81003; 96372; 99284; A9270; J1100; J1885

== ENCOUNTER → 2025-04-17 14:24 | Outpatient (CLI) | payer OTHER, SELFPAY ==
--- NOTE | ~2025-04-17 | XR_ITS ---
XR clavicle RT 04/17/2025 14:44 Indication: Right shoulder pain Procedure: 2 views right clavicle Comparison: 12/18/2024 Findings: There is a distal clavicular osteotomy. No acute fracture, subluxation or dislocation. Surr ounding soft tissues and osseous structures are unremarkable. There is moderate glenohumeral joint os teoarthritis. Impression: 1: Moderate right glenohumeral joint osteoarthritis. 2: Status post right clavicular osteotomy. Reviewed, dictated and finalized at location A. Impression: 1: Moderate right glenohumeral joint osteoarthritis. 2: Status post right clavicular osteotomy.
== END ==
PROVIDERS: PCP Internal Medicine Infectious Disease; Visit Provider Internal Medicine Infectious Disease
DX: M19.011 Primary osteoarthritis, right shoulder (principal)
CPT/HCPCS: 73000

== ENCOUNTER 2025-05-21 14:07 | Outpatient (CLI) | payer OTHER, SELFPAY ==
--- NOTE | ~2025-05-21 | MR_ITS ---
EXAMINATION: MR shoulder RT wo con DATE: 05/21/2025 14:42 INDICATION: Right shoulder pain. TECHNIQUE: Magnetic resonance imaging (MRI) of the right shoulder was performed without intravenous contrast. Sequences included axial PD-weighted FS FSE, coronal oblique PD-weighted FS FSE and T2-weighted FS FSE, and sagittal oblique T2-weighted FS FSE and T1-weighted FSE. COMPARISON: Right clavicle radiographs 04/17/2025 FINDINGS: Coracoacromial arch: The acromion undersurface is curved in morphology (type II). There are changes of distal clavicle resection. There is mild subacromial/subdeltoid bursitis. Rotator cuff: There is moderate supraspinatus and infraspinatus tendinopathy. Teres minor tendon is normal. There is mild subscapularis tendinopathy. There is increased T2-weighted signal intensity at the infraspinatus myotendinous junction, consistent with mild strain. There is mild fatty atrophy of infraspinatus muscle belly. Biceps tendon and glenoid labrum: Biceps tendon is in bicipital groove. There is mild intra-articular biceps tendinopathy. There is degenerative tearing of the glenoid labrum. Fluid: There is no glenohumeral joint effusion. Bones/cartilage: There is partial-thickness cartilage loss of glenoid. There is cartilage surface irregularity of humeral head. Osteophytes are noted. IMPRESSION: 1. Moderate rotator cuff tendinopathy. No tear. 2. Mild strain of infraspinatus muscle (grade 1). 3. Mild glenohumeral joint chondrosis. 4. Mild intra-articular biceps tendinopathy. 5. Mild subacromial/subdeltoid bursitis. Reviewed, dictated and finalized at location E.
--- OUTSIDE RECORDS SUMMARY | 2025-05-21 14:11 | XMS_ITS | Encounter Summary ---
Author Organization [facility] Address [address] [place] [address] Care Team Providers Care Assembly Line Supervisor Name Role Phone Key Tolliver MD Primary Care Provider [phone] Reason for Visit * Reason Comments Medication Refill Encounter Details Date Type Department Care Team ([facility] Contact Info) Description 11/20/2021 [facility] [id number] [place] [address] [place] [address] Rodolfo Truong MD [email or web address] [place], [place] [id number] Social History Tobacco Use Types Packs/Day Years Used Date Smoking Tobacco: Never Smokeless Tobacco: Never Alcohol Use Standard Drinks/Week Comments No 0 (1 standard drink = 0.6 oz pur e alcohol) Comments No Sex and Gender Information Value Date Recorded Sex Assigned at Not on file Legal Sex Female 1:52 PM ELECTRONICS LEAD Gender Identity Not on file Sexual Orientation Not on file documented as of this encounter Plan of Treatment Upcoming Encounters Date Type Department Care Team ([facility] Contact Info) Description 06/25/2025 2:00 PM CDT Office Visit [facility] Oncology and Hematology - [address] [facility] [address] [place] [address] Evan Willis MD [address] [facility] [address] [place] [address] 08/17/2025 1:00 PM ELECTRONICS LEAD Office Visit [facility] Plastic Surgery at the [facility] [address] [place] [address] Rodolfo Truong MD [address] [facility] [address] [place] [address] documented as of this encounter Visit Diagnoses Not on filedocumented in this encounter Care Teams Assembly Line Supervisor Relationship Specialty [place] [address] [place] [id number] PCP - General Internal Medicine 11/05/18 documented as of this encounter
--- OUTSIDE RECORDS SUMMARY | 2025-05-21 14:11 | XMS_ITS | Clinical Summary ---
Author Organization [facility] Address [address] [place] [address] Phone Care Team Providers Care Mine Engineering Supervisor Name Role Phone Key Tolliver MD [...] Comments Hepatitis C Virus (HCV) Screening 1969 TdaP Immunization 1969 Hepatitis B Immunization (1 of 3 - 19+ 3-dose series) 1988 Cologuard 2014 Colonoscopy 2014 Colorectal Cancer Screening 2014 Immunochemical Fecal Occult Blood 2014 Pneumococcal Immunization (5 0+ years) (1 of 1 - PCV) 2019 Zoster Immunization (1 of 2) 2019 SARS-COV-2 Immunization (4 - 2023- season) 2024 08/03/2021, 12/25/2020, 12/02/2020 Influenza Immunization (#1) 2025 Respiratory Syncytial Virus (RSV) Immunization (Adult) (1 - 1-dose 75+ series) 2044 Human Papillomavirus (HPV) Immunization Aged Out No longer eligible b ased on patient's age to complete this topic Meningococcal Immunization (ACWY) Aged Out No longer eligible b ased on patient's age to complete this topic Rotavirus Immunization Aged Out No lo nger eligible based on patient's age to complete this topic Insurance MED[employer]ID [employer] Care Teams Mine Engineering Supervisor Relationship Specialty Start Date End Date Key Tolliver MD [address] [place] [address] PCP - General Internal Medicine 03/14/20
--- OUTSIDE RECORDS SUMMARY | 2025-05-21 14:11 | XMS_ITS | Clinical Summary ---
Author Organization [facility] Address [address] [place], [place] [address] [address] Care Team Providers Care Toppiece Chopper Name Role Phone Key Tolliver MD Primary Care Provider [phone] Allergies Active Allergy Reactions Criticality Noted Date [...] Tablet 4 Active naloxone (NARCAN) 4 mg/spray [place], Non-Aerosol EMERGENCY USE ONLY: Administer 1 spray [...] Encounters Date Type Department Care Team Description 05/06/2025 External Device Data ST[facility] ABSTRACTION Provider, Abstract 04/22/2025 External Device Data ST[facility] ABSTRACTION Provider, Abstract 04/14/2025 Telephone [facility] at the [facility] Medicine [address] [facility] [address] [place] [address] Rodolfo Truong MD wants a referral 04/10/2025 Orders Only [facility] - [facility] [address] [place] [address] Evan Willis MD Malignant neoplasm of upper-outer quadrant of left breast in female, estrogen receptor positive (CMS/HCC) (Primary Dx) 04/08/2025 External Device Data STL ABSTRACTION Provider, Abstract [...] No 07/28/2024 Food Insecurity Answer Date Recorded Patient needs follow up regardin 01/03/2025 Transportation Needs Answer Date Record ed Patient needs follow up regardin 01/03/2025 Housing Stability Answer Date Recorded Social/Environmental Concerns No concerns Utility Needs Answer Date Recorded Patient needs follow up regardin 01/03/2025 Comments No Sex and Gender Information Value Date Recorded Sex Assigned at Not on file Legal Sex Female 1:52 PM PACKING MACHINE CAN FEEDER Gender Identity Not on file Sexual Orientation Not on file Last Filed Vital Signs Vital Sign Reading Time Taken Comments Blood Pressure 153/86 08/11/2024 12:55 PM PACKING MACHINE CAN FEEDER Pulse 88 07/28/2024 12:10 PM PACKING MACHINE CAN FEEDER Temperature 36.3 C (97.4 F) 07/28/2024 12:10 PM PACKING MACHINE CAN FEEDER Respiratory Rate 20 07/28/2024 12:10 PM PACKING MACHINE CAN FEEDER Oxygen Saturation 94% 07/28/2024 12:10 PM PACKING MACHINE CAN FEEDER Inhaled Oxygen Concentration - - Weight 104.8 kg (231 lb) 08/11/2024 12:55 PM PACKING MACHINE CAN FEEDER Height 165.1 cm (5' 5) 08/11/2024 12:55 PM PACKING MACHINE CAN FEEDER Body Mass Index 38.44 08/11/2024 12:55 PM PACKING MACHINE CAN FEEDER Plan of Treatment Upcoming Encounters Date Type Department Care Team (Late st Contact Info) Description 06/25/2025 2:00 PM CDT [facility] Visit [facility] - Teddy [address] [facility] [address] [place] [address] Evan Willis MD [address] [facility] [address] [place] [address] 08/17/2025 1:00 PM PACKING MACHINE CAN FEEDER Office [facility] the [facility] [address] [facility] [address] [place] [address] Rodolfo Truong MD [address] [address] Health Maintenance Due Date Last Done Comments Pre-Diabetes and Diabetes Screening 1970 HEPATITIS B VACCINES (1 of 3 - 19+ 3-dose series) 1988 FIT-DNA Q 3 years 2014 FIT/FOBT Q 1 year 2014 Flex Sig/CT Colonography Q 5 years 2014 ZOSTER VACCINE (1 of 2) 2019 INFLUENZA VACCINE (#1) 2025 9, 05/15/2018, 07/20/2017, Additional history exists COLORECTAL SCREENING 01/01/2027 01/01/2017, 06/23/20 11 Colorectal Cancer Screening 01/01/2027 DTAP/TDAP/TD VACCINES (2 - T d or Tdap) 09/11/2027 09/11/2017 Medical Devices Implanted Type Area Ice Guard Tester Device Identifier Shelf Expiration Date Model / Serial / Lot Manager Of Internal Clip Surgiclip Ii Yordan 9.75in [id number] - [id number] Implanted:Qty: 1 on 10/23/2019 by Rodolfo Truong MD at [facility] Clip N/A: Breast MEDTRONIC - COVIDIEN [id number] 06/02/2024 [id number] / / [id number] Natrelle Inspira Softtouch Breast Implant Implanted:Qty: 1 on 07/28/2024 by Rodolfo Truong MD at [facility] Other Right: Breast ALLERGAN- MEDICAL [id number] 10/08/2028 SSX-750 / [id number] / Natrelle Inspira Softtouch Breast Implant Implanted:Qty: 1 on 07/28/2024 by Rodolfo Truong MD at [facility] Other Left: Breast ALLERGAN- MEDICAL [id number] 07/16/2026 SSF-745 / [id number] / Description:Both Allergan Im plants Requisition,[id number]. Knee Replacement-Yves Plate/ Screws Of Neck Left Shoulder Replacement Explanted Type Area Ice Guard Tester Device Identifier Shelf Expiration Date Model / Serial / Lot Tissue Recreational Aide W/ Suture Tabs Implanted:Qty: 1 on 10/23/2019 by Rodolfo Truong MD at [facility] Explanted:Qty: 1 on 04/06/2020 at [facility] Mammary Left: Breast ALLERGAN- MEDICAL [id number] 07/07/2024 133S-MX-1 3-T / [id number] / Description:Filled with 120m l 0.9% NaCl Both Allergan tissue expanders are processed on requisition [id number]. Tissue Recreational Aide With Suture Tabs Implanted:Qty: 1 on 10/23/2019 by Rodolfo Truong MD at [facility] Explanted:Qty: 1 on 04/06/2020 at [facility] Mammary Right: Breast ALLERGAN- MEDICAL 04/25/2024 133S-MX-1 3-T / [id number] / Description:Requisition # [id number] Natrelle Inspira Softtouch Breast Implant 450cc Implanted:Qty: 1 on 04/06/2020 by Rodolfo Truong MD at [facility] Explanted:Qty: 1 on 08/16/2020 at [facility] Mammary Left: Breast ALLERGAN- MEDICAL [id number] 08/17/2024 SSF-450 / [id number] / Description:Both Allergan Br east Implants are processed on requisition [id number]. Natrelle Inspira Softtouch Breast Implant 525cc Implanted:Qty: 1 on 04/06/2020 by Rodolfo Truong MD at [facility] Explanted:Qty: 1 on 08/16/2020 at [facility] Mammary Right: Breast ALLERGAN- MEDICAL [id number] 12/29/2023 SSX-525 / [id number] / Description:Requisition # [id number]. Natrelle Inspira Soft Touch Ssf-560 Implanted:Qty: 1 on 08/16/2020 at [facility] Explanted:Qty: 1 on 02/22/2023 by Rodolfo Truong MD at [facility] [place] Right: Breast ALLERGAN- MEDICAL [id number] 06/21/2024 SSF-560 / [id number] / Description:Requisition # [id number] left breast Imp Breast Inspira Ssx 700ml Ssx-700 - [id number] Explanted:Qty: 1 on 02/22/2023 at [facility] [place] Right: Breast ALLERGAN- MEDICAL 01/04/2026 SSX-700 / [id number] / Natrelle Inspira Softtouch Ssx-615 Implanted:Qty: 1 on 08/16/2020 at [facility] Explanted:Qty: 1 on 02/22/2023 by Rodolfo Truong MD at [facility] [place] Right: Breast ALLERGAN- MEDICAL [id number] 10/15/2024 SSX-615 / [id number] / Description:both Allergan re placement breast implants are processed on requisition [id number]. Imp Breast Inspira Ssf 650ml Ssf-650 - [id number] Implanted:Qty: 1 on 02/22/2023 by Rod[place]fo Tru[place] [facility] [place]ed:Qty: 1 on 07/28/2024 by Rodolfo Truong MD at [facility] Mammary Left: Breast ALLERGAN- MEDICAL 09/11/2027 SSF-650 / [id number] / Imp Breast Inspira Ssx 615ml Ssx-615 - [id number] Implanted:Qty: 1 on 02/22/2023 by Rodolfo Tru[place] [facility] [place]ed:Qty: 1 on 07/28/2024 by Rodolfo Truong MD at [facility] Mammary Right: Breast ALLERGAN- MEDICAL 10/15/2024 SSX-615 / [id number] / Description:Original implant placed on 08/16/2020 was explanted today but surgeon reimplanted after trying alteratives unsuccessfully. Procedures Procedure Name Priority Date/Time Associated Diagnosis Comments ENDOSCOPY, COLON, SCREENING Routine 01/01/2017 from Last 3 Months or Most Recently Relevant to Health Maintenance Results * ENDOSCOPY, COLON, SCREENING (01/01/2017) [facility] Brenda Delgado MD GI PROCEDURE ORDERABLES Edited Result - Final [facility] from Last 3 Months or Most Recently Relevant to Health Maintenance Insurance [employer] MEDICAID RX [place] [employer] (INTERNAL) [facility] RX [employer] Medicaid RX [facility] [place] [address] [facility] MEDICAID Advance Directives For more information, please contact: [phone] * Full Code (Latest Code Status on [...] 8:44 AM 10/23/2019 2:10 PM Care Teams Toppiece Chopper Relationship Specialty [place] [address] [place] [phone] PCP - General Internal Medicine 11/05/18
--- OUTSIDE RECORDS SUMMARY | 2025-05-21 14:11 | XMS_ITS | Encounter Summary ---
Author Organization [facility] Address [address] [facility] [place] [address] Care Team Providers Care Audiovisual Aids Technician Name Role Phone Key Tolliver MD Primary Care Provider Pablo Liriano MD Unavailable [phone] Evan Willis MD Unavailable [phone] Charles Kingston MD Unavailable Reason for Visit * Reason Onset Date Comments Question 02/20/2025 Encounter Details Date Type Department Care Team (Late st Contact Info) Description 02/20/2025 Telephone [facility] - Orthopedic Surgery [address], [facility] [address] [place] [address] Tamie Olivas, DARRON Question Social History Tobacco Use Types Packs/Day Years [...] money to get more. Never true 07/07/2022 Comments No Sex and Gender Information Value Date Recorded Sex Assigned at Not on file Legal Sex Female 11:[address] MAINTENANCE CREW WORKER Gender Identity Not on file Sexual Orientation Not on file Occupation Industry Job Start Date Job End Date Unemployed - on disability Not on file Not on file N ot on file documented as of this encounter Functional Status * Is person deaf or have serious hearing difficulty? Answer Date of Assessment Author No 06/14/2022 12:15 AM CDT Haylie Quijano RN * Is person blind or have serious difficulty seeing? Answer Date of Assessment Author No 06/14/2022 12:15 AM CDT Haylie Quijano RN * Does person have serious difficulty walking/climbing stairs? Answer Date of Assessment Author No 06/14/2022 12:15 AM CDT Haylie Quijano RN * Does person have difficulty dressing/bathing? Answer Date of Assessment Author No 06/14/2022 12:15 AM RALPHT Haylie Quijano RN * Does person have difficulty doing errands alone? Answer Date of Assessment Author No 06/14/2022 12:15 AM CDT Haylie Quijano RN documented as of this encounter Mental Status * Does person have difficulty concentrating/remembering/making decisions? Answer Entry Date Author No 06/14/2022 12:15 AM CDT Haylie Quijano RN documented in this encounter Plan of Treatment Upcoming Encounters Date Type Department Care Team (Late st Contact Info) Description 05/28/2025 2:30 PM CDT Office Visit [facility] - Orthopedic Surgery [address] [place] [address] Yandel Petersen MD [address] [place] [address] 03/11/2026 2:00 PM CDT Office Visit [facility] - Rheumatology [address] [facility] [place] [address] Ev Lowery MD [facility] [facility] [address]L [place] [address] documented as of this encounter Goals Goal Patient Goal Type Associated Problems Recent Progress Patient-Stated? Author Mobility General Improving( 1:50 PM CDT) No Coreen Muñoz, RN Note: Expected end date: 12/01/2020 The goal is to maintain or improve your mobility at the optimum level for you. Interventions: Mobility General Worsening( 1:[address] MAINTENANCE CREW WORKER) No Lilo Kaminski, DARRON Note: Expected end date: 11/17/2019 The goal is to maintain or improve your mobility at the optimum level for you. Interventions: PAIN General No Shira Sun Note: Expected end date: 01/18/2020 Patient's pain/discomfort is manageable. Interventions: documented as of this encounter Visit Diagnoses Not on filedocumented in this encounter Care Teams Audiovisual Aids Technician Relationship Specialty Start Date End Date Key Tolliver MD [address] [place] [address] [phone] PCP - General 10/22/18 Pablo Liriano MD [address] [place] [address] [phone] Orthopedic Surgery 05/22/19 Evan Willis MD [address] [place] [address] [phone] Medical Oncologist Medical Oncology 11/02/21 Charles Kingston MD [address] [phone] Trading Floor Operator Cardiology 11/03/21 documented as of this encounter
--- OUTSIDE RECORDS SUMMARY | 2025-05-21 14:11 | XMS_ITS ---
Author Organization [facility] Address [address] 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 Past Treatment and Therapy Plans No past plan information found. Lifetime Dose Tracking * Chemical Lifetime Dose Automatic Entry Manual Entr y Dose Length Product 2,252.5 mGy-cm 2,252.5 mGy-cm 0 mG y-cm Resolved Problems Problem Noted Date Diagnosed Date Resolved Date Diarrhea 05/03/2023 05/03/2023 05/31/2023 UTI (urinary tract infection) 02/02/2016 04/08/2020
--- OUTSIDE RECORDS SUMMARY | 2025-05-21 14:11 | XMS_ITS | Clinical Summary ---
Author Organization [facility] Address [address] [place] [address] Care Team Providers Care Multicultural Manager Name Role Phone Key Tolliver MD Primary Care Provider Pablo Liriano MD Unavailable Evan Willis MD Unavailable Charles Kingston MD Unavailable Source Comments [facility],non-owned Affiliates and Associated Physician Practices is amultiple site organization consisting of ambulatory clinics and hospital sitesin [place], [place], [place] and [place]. This disclosure is being madepursuant to the Care Everywhere program and may not contain all information available regarding this patient. Last updated 18.[facility] Allergies Active Allergy Reactions Criticality Noted Date Comments Adhesive Sensitivity Rash,Skin Reactions High 2016 TEGADERM Other reaction(s): SKIN TURNED RED, AND LOOKED LIKE A BURN, TEGADERM HAD THE WORSE REACTION Medications * Be aware that medications may not be up to date on this document. Alwaysverify current medications with the patient. Venlafaxine HCl (VENLAFAXINE ER 24HR) 225 MG tablet Take 1 (one) tablet by mouth daily with breakfast 4 9 Active cyclobenzaprine (Flexeril) 10 MG tablet TAKE 1 TABLET BY MOUTH TWICE DAILY NEEDED FOR MUSCLE SPASMS 60 tablet 1 2 Active ARIPiprazole (Abilify) 2 MG tablet Take by mouth once daily Active hydrOXYzine HCl (Atarax) 50 MG tablet Take 2 (two) tablets by mouth at bedtime 3 Active lisinopril (Prinivil; Zestril) 40 MG tablet Take 1 (one) tablet by mouth once daily Active NIFEdipine CR 24hr (Adalat CC) 30 MG tablet Take 1 (one) tablet by mouth once daily Active pantoprazole EC (Protonix) 40 MG tablet Take 1 (one) tablet by mouth once daily 3 Active omeprazole (PriLOSEC) 40 MG capsule Take 1 (one) capsule by mouth 2 times daily Active celecoxib (CeleBREX) 200 MG capsule Take 1 (one) capsule by mouth once daily 3 Active methocarbamol (Robaxin) 750 MG tablet Take 1 (one) tablet by mouth every 6 hours as needed for Muscle Spasms 20 tablet 3 Active Additional Information Patient not taking.Reported on 03/12/2025 anastrozole (Arimidex) 1 MG tablet Take 1 (one) tablet by mouth once daily 3 Active busPIRone (Buspar) 15 MG tablet Take 1 (one) tablet by mouth 3 times daily with meals 3 Active ferrous sulfate 325 (65 FE) MG tablet Take 1 (one) tablet by mouth once daily 3 Active metoprolol succinate XL 24hr (Toprol XL) 200 MG tablet metoprolol succinate 200 mg tablet extended release 24 hr 2 Active traZODone (Desyrel) 150 MG tablet Take 1 (one) tablet by mouth at bedtime 3 Active docusate sodium (Colace) 100 MG capsule Take 1 (one) capsule by mouth once daily 30 capsule 4 Active naloxone HCl (Narcan) 4 MG/0.1ML nasal spray CALL 911. SPR CONTENTS OF ONE SPRAYER (0.1ML) INTO ONE NOSTRIL. REPEAT IN 2-3 MIN IF SYMPTOMS OF OPIOID EMERGENCY PERSIST, ALTERNATE NOSTRILS Active aspirin (Aspirin) 325 MG tablet Take 1 (one) tablet by mouth once daily 35 tablet 4 Active Additional Information Patient not taking.Reported on 03/12/2025 ketoconazole (Nizoral) 2 % shampooIndicati ons:Seborrheic dermatitis Apply to wet hair, leave on for 3 minutes, then rinse; three times weekly. 30 days supply 112 mL 5 4 Active Additional Information Patient not taking.Reported on 03/12/2025 ketoconazole (Nizoral) 2 % creamIndication s:Seborrheic dermatitis Apply to face 1-2 times daily for rash. 30 days supply. 60 g 3 4 Active fluocinolone (Dermotic) 0.01 % otic oilIndications: Seborrheic dermatitis Apply to ears 1-2 times daily as needed for itching. 20 mL 3 4 Active fluocinolone acetonide (Synalar) 0.01 % solutionIndicat ions:Seborrheic dermatitis Apply to scalp 1-2 times daily as needed for itching. 30 days supply. 60 mL 3 4 Active buPROPion XL 24hr (Wellbutrin-XL) 150 MG tablet Take 1 (one) tablet by mouth once daily 4 Active oxyCODONE, immediate release, (Roxicodone) 5 MG tabletIndicatio ns:Orthopedic aftercare Take 1 (one) tablet by mouth every 6 hours as needed for Pain 12 tablet 4 Active ondansetron (Zofran) 8 MG tablet Take 1 (one) tablet by mouth every 8 hours as needed for Nausea/Vomiting 42 tablet 1 4 Active meloxicam (Mobic) 15 MG tablet TAKE 1 TABLET BY MOUTH DAILY 30 tablet 4 Active acetaminophen-c odeine (Tylenol #3) 300-30 MG tablet Take 1 (one) tablet by mouth every 6 hours as needed pain 4 Active famotidine (Pepcid) 20 MG tablet Take 1 (one) tablet by mouth at bedtime 5 Active fish oil/omega-3 fatty acids (Promega;Cardi- Graham 3) 1000 MG capsule Take by mouth once daily Active albuterol HFA (Proventil; Ventolin; Proair) 108 (90 Base) MCG/ACT inhaler Inhale 1 (one) puff by mouth every 4 hours 5 Active Flovent HFA 44 MCG/ACT inhaler Inhale 2 (two) puffs by mouth 2 times daily 5 Active mirtazapine (Remeron) 15 MG tablet Take 1 (one) tablet by mouth at bedtime Active sucralfate (Carafate) 1 GM/10ML suspension Active potassium chloride ER (K-TAB) 20 MEQ tablet TAKE 2 TABLETS BY MOUTH EVERY DAY AROUND THE CLOCK FOR 1 DAY Active polyethylene glycol 3350 (Miralax) 17 GM/SCOOP powder FOLLOW INSTRUCTIONS GIVEN BY THE OFFICE 5 Active dicyclomine (Bentyl) 20 MG tablet Take 1 (one) tablet by mouth 3 times daily as needed Active ciprofloxacin-d exAMETHasone (Ciprodex) 0.3-0.1 % otic suspension INSTILL 4 DROPS INTO RIGHT EAR TWICE DAILY X7DAYS Active carbamide peroxide (Debrox) 6.5 % otic solution INSTILL 5 DROPS INTO THE AFFECTED EARS TWICE DAILY Active bisacodyl EC 5 MG tablet TAKE 4 TABLETS BY MOUTH AT 3PM WITH 8OZ OF WATER 5 Active HYDROcodone-satish taminophen (Eitzen) 5-325 MG tabletIndicatio ns:Chronic left shoulder pain,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 Take 1 (one) tablet to 2 (two) tablets by mouth every 4 hours as needed for Pain 30 tablet 5 Active Additional Information Patient not taking.Reported on 03/12/2025 predniSONE (Deltasone) 20 MG tablet Take 2 (two) tablets by mouth once daily 5 Active Active Problems Problem Noted Date [...] hyperlipidemia 03/30/2021 Atherosclerotic heart diseas e of [place] coronary artery without angina pectoris 03/30/2021 Chest [...] Encounters Date Type Department Care Team Description 03/12/2025 2:40 PM CDT Office Visit [facility] - Rheumatology [address] [place] [address], [place] [address] Ev Lowery MD 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 ) 02/20/2025 Telephone [facility] - Orthopedic Surgery [address] [place] [address] Tamie Olivas, RN Question 02/20/2025 Telephone [facility] - Orthopedic Surgery [address] [place] [address] Tamie Olivas, DARRON Question 02/20/2025 Telephone [facility] - Orthopedic Surgery [address] [place] [address] Tamie Olivas, DARRON Question 02/20/2025 Telephone [facility] - Orthopedic Surgery [address] [place] [address] Tamie Olivas, DARRON Question from Last 3 Months Immunizations Immunization Administration Dates Next Due INFLUENZA VACCINE, TRIV. [...] occasion? Never 07/07/2022 PHQ-2 Answer Date Recorded Patient Health Questionnaire-2 Score 0 03/12/2025 Hunger Vital Sign Answer Date Recorded Within the past 12 months, y ou worried that your food would run out before you got the money to buy more. Never true 07/07/20 Within the past 12 months, t he food you bought just didn't last and you didn't have money to get more. Never true 07/07/2022 Comments No Sex and Gender Information Value Date Recorded Sex Assigned at Not on file Legal Sex Female 11:46 AM DISTRICT BRANCH MANAGER Gender Identity Not on file Sexual Orientation Not on file Occupation Industry Job Start Date Job End Date Unemployed - on disability Not on file Not on file N ot on file Last Filed Vital Signs Vital Sign Reading Time Taken Comments Blood Pressure 143/100 03/12/2025 2:22 PM CDT Pulse 89 03/12/2025 2:22 PM CDT Temperature 36.1 C (96.9 F) 03/12/2025 2:22 PM CDT Respiratory Rate 16 03/12/2025 2:22 PM CDT Oxygen Saturation 96% 03/12/2025 2:22 PM CDT Inhaled Oxygen Concentration 21% 03/21/2019 3 :09 AM CDT Weight 103 kg (227 lb) 03/12/2025 2:22 PM CDT Height 165.1 cm (5' 5) 03/12/2025 2:22 PM CDT Body Mass Index 37.77 03/12/2025 2:22 PM CDT Plan of Treatment Upcoming Encounters Date Type Department Care Team (Late st Contact Info) Description 05/28/2025 2:30 PM CDT Office Visit [facility] - Orthopedic Surgery [address] [place] [id number] Yandel Petersen MD [address] [place] [address] 03/11/2026 2:00 PM CDT Office Visit [facility] - Rheumatology [facility] [facility], [place] [phone] Ev Lowery MD [address] [place] [address] [place] [phone] Health Maintenance Due Date Last Done Comments COLOGUARD (AGES 45-75) - COLON CA SCREENING 1969 CT COLONOGRAPHY - COLON CA SCREENING 1969 FIT - COLON CA SCREENING 1969 FLEX SIG - COLON CA SCREENING 1969 HEPATITIS B VACCINE (1 of 3 - 19+ 3-dose series) 1988 PNEUMOCOCCAL VACCINE 50+ (1 of 2 - PCV) 1988 MAMMOGRAM 05/12/2015 05/12/2013, 05/07/2013 ZOSTER VACCINE (1 of 2) 2019 COVID-19 VACCINE (1 - season) 2025 INFLUENZA VACCINE (#1) 2025 0, 07/04/2019, 05/15/2018, Additional history exists COLON MONITORING 01/01/2027 01/01/2017 COLONOSCOPY - COLON CA SCREENING 01/01/2027 01/01/2017 Colorectal Cancer Screening 01/01/2027 DTAP/TDAP/TD VACCINES (2 - Td or Tdap) 09/11/2027 09/11/2017 SCREENING FOR DIABETES 09/17/2027 5, 07/30/2023, 07/08/2022, Additional history exists HEPATITIS C SCREENING Completed 12/27/2015 HIV SCREENING Completed 10/12/2017 DEPRESSION SCREENING Completed 03/12/2025, 07/18/2022, 07/06/2022, Additional history exists HIB VACCINE Aged Out No longer eligi [...] General Improving( 1:50 PM CDT) No Coreen Muñzo, DARRON Note: Expected end date: 12/01/2020 The goal is to maintain or improve your mobility at the optimum level for you. Interventions: Mobility General Worsening( 1:20 PM DISTRICT BRANCH MANAGER) No Lilo Kaminski, DARRON Note: Expected end date: 11/17/2019 The goal is to maintain or improve your mobility at the optimum level for you. Interventions: PAIN General No Shira Sun Note: Expected end date: 01/18/2020 Patient's pain/discomfort is manageable. Interventions: Medical Devices Implanted Type Area Real Estate Recruiter Device Identifier Shelf Expiration Date Model / Serial / Lot Cmnt Bone Plc R+Ggnta 40gm Lf Grn Implanted:Qty: 1 on 10/11/2017 by Rajendra Ingram MD at [facility] Left: Knee [employer] 12/01/2020 [id number] / / [id number] Description:12 BEADS IN LEFT KNEE ON VICRYL SUTURE 21 BEADS IN RIGHT KNEE ON VICRYL SUTURE Brng [id number] Vngrd Arcm Kn Ant Stab Implanted:Qty: 1 on 10/16/2017 by Rajendra Ingram MD at [facility] Left: Knee [employer] 06/09/2022 [id number] / / Brng [id number] Vngrd Arcm Kn Ant Stab Implanted:Qty: 1 on 10/16/2017 by Rajendra Ingram MD at [facility] Right: Knee [employer] 07/25/2022 [id number] / / Cmpnt Tibtry Bmt As Mx Kn Intlk Prm Lck Implanted:Qty: 1 on 10/16/2017 by Rajendra Ingram MD at [facility] Left: Knee [employer] 07/11/2027 [id number] / / Cmpnt Tibtry Bmt As Mx Kn Intlk Prm Lck Implanted:Qty: 1 on 10/16/2017 by Rajendra Ingram MD at [facility] Right: Knee [employer] 06/17/2027 [id number] / / Kam Kn Tot Rev 50% Of 2014 Implanted:Qty: 1 on 10/16/2017 by Rajendra Ingram MD at [facility] Wan [employer] KR2 KNEE TO T REV WNA BILL ONLY / / Cmpnt Glnd 38mm Std Glenosphere Sckt Geovany Implanted:Qty: 1 on 03/19/2019 by Pablo Liriano MD at [facility] Left: Shoulder [employer] Inc 11/01/2023 [id number] / / Description:DXTND GLENOSPHER E STD P32JB--27/22 LG Dxtend Mod Cent Epi 1 Ocampo Implanted:Qty: 1 on 03/19/2019 by Pablo Liriano MD at [facility] Left: Shoulder 01/01/2024 1307-20-101 / / Description:delta xtend mudu lar centered epiphysis Global Unite Std Stem Sz 8 Implanted:Qty: 1 on 03/19/2019 by Pablo Liriano MD at [facility] Left: Shoulder 08/02/2027 1100-08-100 / / Description:global unite por ocoat standard stem Dxtend Stand Pe Cup D38 +3mm Implanted:Qty: 1 on 03/19/2019 by Pablo Liriano MD at [facility] Left: Shoulder 1307-38-203 / / [id number] Description:Delta xtend lyudmila ral PE cup standard Sys Shld Tot Arthroplst Rev Implanted:Qty: 1 on 03/19/2019 by Pablo Liriano MD at [facility] Left: Shoulder [employer] S4 DEPUY / / Cmpnt Glnd 27mm Std Geovany Xtend Metaglene Implanted:Qty: 1 on 03/19/2019 by Pablo Liriano MD at [facility] Left: Shoulder [employer] 12/02/2023 1307-60-000 / / Description:DXTEND METAGLENE Dxtend Screw Lock D4.5x36mm Implanted:Qty: 1 on 03/19/2019 by Pablo Liriano MD at [facility] Left: Shoulder 12/02/2023 1307-90-036 / / Description:PACK ACL TISSUE FX CSTM SRG PRC DISP Screw 4.5mm 30mm Shldr Glnd Lck Geovany Implanted:Qty: 1 on 03/19/2019 by Pablo Liriano MD at [facility] Left: Shoulder [employer] 01/01/2024 1307-90-030 / / Description:DXTEND SCREW LOC K D4.2X82WF--51/22 LG 6.5mm Canellous Screw Implanted:Qty: 1 on 10/25/2020 by Anjelica Gutierres MD at [facility] Right: Ankle [employer] 486-55-01 / / 6.5mm Cancellous Screw Implanted:Qty: 1 on 10/25/2020 by Anjelica Gutierres MD at [facility] Right: Ankle [employer] / / Cortical Screw 2.7mm Implanted:Qty: 1 on 10/25/2020 by Anjelica Gutierres MD at [facility] Right: Ankle [employer] [id number] / / Screw 3.5mm 32mm 2.5mm Slf-Tap Sm Hex Implanted:Qty: 2 on 10/25/2020 by Anjelica Gutierres MD at [facility] Right: Ankle [employer] [id number] / / Screw 3.5mm 45mm 2.5mm Slf-Tap Sm Hex Implanted:Qty: 1 on 10/25/2020 by Anjelica Gutierres MD at [facility] Right: Ankle [employer] [id number] / / Graft Bone Alfs + Dbm 1cc Algrf Pst Implanted:Qty: 1 on 10/25/2020 by Anjelica Gutierres MD at [facility] Right: Ankle [employer]osource 04/08/2021 [id number] / / [id number] Bsplt Glnd 30mm Rsp Shldr P2 Strl Lf Implanted:Qty: 1 on 04/26/2022 by Mariano Guzmán MD at [facility] Left: Shoulder [employer] 03/23/2028 508-32-204 / / [id number] Screw 5mm 14mm Shldr Lck Rsp Glnd Bsplt Implanted:Qty: 1 on 04/26/2022 by Mariano Guzmán MD at [facility] Left: Shoulder [employer] 03/25/2028 506-03-114 / / [id number] Screw 5mm 14mm Shldr Lck Rsp Glnd Bsplt Implanted:Qty: 1 on 04/26/2022 by Mariano Guzmán MD at [facility] Left: Shoulder [employer] 04/05/2028 506-03-114 / / [id number] Screw 5mm 30mm Shldr Lck Rsp Glnd Bsplt Implanted:Qty: 1 on 04/26/2022 by Mariano Guzmán MD at [facility] Left: Shoulder [employer] 03/13/2028 506-03-130 / / [id number] Screw 5mm 30mm Shldr Lck Rsp Glnd Bsplt Implanted:Qty: 1 on 04/26/2022 by Mariano Guzmán MD at [facility] Left: Shoulder [employer] 03/18/2028 506-03-130 / / [id number] Cmnt Bone Djo Srg Cblt 40gm Hvisc Strl Implanted:Qty: 1 on 04/26/2022 by Mariano Guzmán MD at [facility] Left: Shoulder [employer] 03/16/2023 600-15-000 / / [id number] Head Glnd 32mm Rsp Ntrl Shldr Rtn Screw Implanted:Qty: 1 on 04/26/2022 by Mariano Guzmán MD at [facility] Left: Shoulder [employer] 03/22/2028 508-32-101 / / [id number] Ins Sckt Rsp Djo Srg +4mm Hum Hxe+ Implanted:Qty: 1 on 04/26/2022 by Mariano Guzmán MD at [facility] Left: Shoulder [employer] 12/26/2026 509-01-432 / / [id number] Humeral Stem Reverse Size 8mm X 108mm Implanted:Qty: 1 on 04/26/2022 by Mariano Guzmán MD at [facility] Left: Shoulder [employer] 10/05/2027 530-08-108 / / [id number] Rstrc Cmnt Cl Ct 10mm Implanted:Qty: 1 on 04/26/2022 by Mariano Guzmán MD at [facility] Left: Shoulder [employer] 07/03/2024 415-00-100 / / [id number] Rsp Humeral Socket Insert 32mm Semi-Constrain ed Implanted:Qty: 1 on 06/14/2022 by Mariano Guzmán MD at [facility] Left: Shoulder [employer] 08/12/2026 509-01-032 / / [id number] Spcr Hum Djo Srg Rsp +8mm Mnblck Strl Lf Implanted:Qty: 1 on 06/14/2022 by Mariano Guzmán MD at [facility] Left: Shoulder [employer] 04/12/2028 510-08-000 / / [id number] Head Glnd 32mm Rsp Ntrl Shldr Rtn Screw Implanted:Qty: 1 on 06/14/2022 by Mariano Guzmán MD at [facility] Left: Shoulder [employer] 05/17/2028 508-32-101 / / [id number] Screws Implanted:Qty: 1 on 08/10/2023 by Jace Muller MD at [facility] Left: Ankle AR-8935-32 / / Description:3.0-4.0 ARTHREX VENDOR TRAY Screw Implanted:Qty: 1 on 08/10/2023 by Jace Muller MD at [facility] Left: Ankle Arthrex Inc AR-8940-34 / / Description:3.0-4.0 ARTHREX TRAY Kit Bngf 3cc Aug Inj Implanted:Qty: 1 on 01/14/2024 by Jace Muller MD at [facility] Left: Ankle [employer] Inc 08/30/2026 [id number] / / [id number] Graft Bone Ignite 2 Mini 4cc Pwr Mx - [id number] Implanted:Qty: 1 on 01/14/2024 by Jace Muller MD at [facility] Left: Ankle [employer] Inc 07/19/2028 [id number] / [id number] / Allosync Pure 5cc Implanted:Qty: 1 on 01/14/2024 by Jace Muller MD at [facility] Left: Ankle Arthrex Inc 08/20/2028 ABS / / [id number] 7.0 Screw 55 Implanted:Qty: 1 on 01/14/2024 by Jace Muller MD at [facility] Left: Ankle Arthrex Inc AR-8770-5H / / 7.0 Screw 40 Implanted:Qty: 1 on 01/14/2024 by Jace Muller MD at [facility] Left: Ankle Arthrex Inc AR-8770-40H / / Explanted Type Area Real Estate Recruiter Device Identifier Shelf Expiration Date Model / Serial / Lot Cortical Screw 3.5mm Explanted:Qty: 1 on 10/25/2020 at [facility] Right: Ankle [employer] [id number] / / 4.0mm Screw Explanted:Qty: 1 on 08/10/2023 at [facility] Left: Ankle AR-8940-32 / / Screw 3mm 20mm T10 Ft Slf-Tap Lck Strdr Explanted:Qty: 1 on 08/10/2023 by Felipe Bourne MD at [facility] Left: Ankle Arthrex Inc AR-8933L-20 / / Screw 3mm 18mm Va Slf-Tap Sld Lck Ankl Explanted:Qty: 1 on 08/10/2023 by Felipe Bourne MD at [facility] Left: Ankle Arth[employer] Inc AR-8933V-18 / / Wire K .062in 6in Fx 2 Troc Explanted:Qty: 2 on 08/10/2023 at [facility] Left: Ankle [employer] [id number] / / Screw 3.5mm 28mm T15 Ft Slf-Tap Sld Hxlb Implanted:Qty: 1 on 08/10/2023 by Jace Muller MD at [facility] Explanted:Qty: 1 on 01/14/2024 by Jace Muller MD at [facility] Left: Ankle Ar[employer]rex Inc AR-8935CL-2 8 / / Screw 3.5mm 26mm T15 Ft Slf-Tap Sld Hxlb Implanted:Qty: 1 on 08/10/2023 by Jace Muller MD at [facility] Explanted:Qty: 1 on 01/14/2024 by Jace Muller MD at [facility] Left: Ankle Ar[employer] Inc AR-8935CL-2 6 / / Plate Calc 7.5mm Stp Bone Implanted:Qty: 1 on 08/10/2023 by Jace Muller MD at [facility] Explanted:Qty: 1 on 01/14/2024 by Jace Muller MD at [facility] Left: Ankle Ar[employer] Inc AR-8949-075 / / 3.5mm Locking Screw Implanted:Qty: 1 on 08/10/2023 by Jace Muller MD at [facility] Explanted:Qty: 1 on 01/14/2024 by Jace Muller MD at [facility] Left: Ankle AR-8935CL-2 4 / / Description:3.0-4.0 ARTHREX VENDOR TRAY Screw 3mm 16mm Va Slf-Tap Sld Lck Ankl Implanted:Qty: 1 on 08/10/2023 by Felipe Bourne MD at [facility] Explanted:Qty: 1 on 01/14/2024 by Jace Muller MD at [facility] Left: Ankle Ar[employer] Inc AR-8933V-16 / / Screw 3mm 20mm Va Slf-Tap Sld Lck Ankl Implanted:Qty: 1 on 08/10/2023 by Felipe Bourne MD at [facility] Explanted:Qty: 1 on 01/14/2024 by Jace Muller MD at [facility] Left: Ankle Ar[employer]rex Inc AR-8933V-20 / / Procedures Procedure Name Priority Date/Time Associated Diagnosis Comments COMPREHENSIVE METABOLIC PANEL Routine 09/17/2024 12:09 PM DISTRICT BRANCH MANAGER Positive double stranded 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 ANTIBODY + HIV P24 AG PANEL AM Draw 10/12/2017 4:43 AM DISTRICT BRANCH MANAGER HEPATITIS C ANTIBODY Routine 12/27/2015 5:08 PM CDT from Last 3 Months or Most Recently Relevant to Health Maintenance Results * (ABNORMAL) COMPREHENSIVE METABOLIC PANEL (09/17/2024 12:09 PM DISTRICT BRANCH MANAGER) BUN 17 7 - 26 mg/dL 09/17/2024 1:09 PM DISTRICT BRANCH MANAGER [facility] Creatinine 1.03(H) 0.56 - 0.96 mg/dL 09/17/2024 1:09 PM [facility] Sodium 139 136 - 145 mmol/L 09/17/2024 1:09 PM [facility] Potassium 3.9 3.5 - 4.5 mmol/L 09/17/2024 1:09 PM [facility] Chloride 103 98 - 107 mmol/L 09/17/2024 1:09 PM [facility] CO2 24 22 - 29 mmol/L 09/17/2024 1:09 PM [facility] Glucose 98 70 - 99 mg/dL 09/17/2024 1:09 PM [facility] Calcium 9.4 8.4 - 10.2 mg/dL 09/17/2024 1:09 PM [facility] Protein Total 8.2 6.0 - 8.3 g/dL 09/17/2024 1:09 PM [facility] Albumin 4.1 3.4 - 5.0 g/dL 09/17/2024 1:09 PM [facility] Bilirubin Total 0.4 0.2 - 1.2 mg/dL 09/17/2024 1:09 PM [facility] Alkaline Phosphatase 82 40 - 150 U/L 09/17/2024 1:09 PM [facility] ALT 30 5 - 55 U/L 09/17/2024 1:09 PM [facility] AST 32 5 - 34 U/L 09/17/2024 1:09 PM [facility] Anion Gap 12 6 - 16 09/17/2024 1:09 PM [facility] BUN/Creatinine Ratio 17 7 - 23 09/17/2024 1:09 PM [facility] Osmolality Calculated 290 275 - 295 mOsm/kg 09/17/2024 1:09 PM [facility] Albumin/Globulin Ratio 1.0(L) 1.1 - 2.3 09/17/2024 1:09 PM [facility] eGFR by CKD-EPI 64(L) >=90 mL/min/1.7 3 m2 09/17/2024 1:09 PM [facility] Blood BLOOD SPECIMEN / Unknown Lab Venipuncture / Unknown 09/17/2024 12:09 PM DISTRICT BRANCH MANAGER 09/17/2024 12:29 PM DISTRICT BRANCH MANAGER Result [facility] Ev Lowery MD LAB - CHEMISTRY ORDERABLES Fi nal Result [facility] [address] [place] [address], [facility] [phone] * HIV-1 HIV-2 ANTIBODY + HIV P24 AG PANEL (10/12/2017 4:43 AM DISTRICT BRANCH MANAGER) [facility] HIV1/2 Ab + P24 Ag Non Reactive Non Reactive 10/12/2017 11:04 AM DISTRICT BRANCH MANAGER [facility] Blood BLOOD SPECIMEN / Unknown Venipuncture / Unknown 10/12/2017 4:43 AM DISTRICT BRANCH MANAGER 10/12/2017 4:57 AM DISTRICT BRANCH MANAGER Narrative [facility] - 10/12/2017 11:04 AM DISTRICT BRANCH MANAGER No Laboratory evidence of HIV infection. Result [facility] Singh Moyer MD LAB - CHEMISTRY ORDERAB LES Final Result Performing Organization Address [facility]/ZIP Co de Phone Number [facility] [address] [place] [address] * HEPATITIS C ANTIBODY (12/27/2015 5:08 PM CDT) [facility] Hepatitis C Antibody Non-react nieves Non-reac tive [facility] [employer] Comment: Hepatitis C Antibody screen indicates no [...] CDT Citlaly Avalos MD LAB - CHEMISTRY ORDERABLES Fi nal Result Performing Organization Address City/[facility]/ZIP Co de Phone Number [facility] [address] [place] [address], [facility] [phone] from Last 3 Months or Most Recently Relevant to Health Maintenance Insurance [facility] Advance Directives * Full Code (Latest Code [...] 8:14 PM 04/27/2022 6:26 PM Care Teams Multicultural Manager Relationship Specialty Start Date End Date Key Tolliver MD [address] [place], [place] [id number] PCP - General 10/22/18 Pablo Liriano MD [address] [place] [address] [phone] Orthopedic Surgery 05/22/19 [place] [address] [place] [address] [phone] Medical Oncologist Medical Oncology 11/02/21 Charles Kingston MD [facility] [address] [phone] Warehouse Stocker Cardiology 11/03/21
--- OUTSIDE RECORDS SUMMARY | 2025-05-21 14:12 | XMS_ITS | Clinical Summary ---
Author Organization [facility] Address [address] [place] [address] Care Team Providers Care Telephone Triage Nurse Name Role Phone Unavailable Primary Care Provider Unavailabl e Allergies Active Allergy Reactions Criticality Noted Date Comments Tape Rash Low 09/12/2016 Medications anastrozole 1 MG tablet TAKE 1 TABLET(1 MG) BY MOUTH DAILY 7 Active cholecalciferol (D3-50) 23024 units capsule Take 100,000 Units by mouth [...] A MEAL 8 Active multi vitamin/mineral s (VITAMINS/AGRICULTURE RESEARCH DIRECTOR ALS) tablet Take 1 tablet by mouth. [...] Comments Blood Pressure 146/90 08/01/2018 1:02 PM CROSSING SUPERVISOR Pulse 89 08/01/2018 1:02 PM CROSSING SUPERVISOR Temperature 36.6 C (97.9 F) 08/01/2018 1:02 PM CROSSING SUPERVISOR Respiratory Rate 20 08/01/2018 1:02 PM CROSSING SUPERVISOR Oxygen Saturation 100% 08/01/2018 1:02 PM CROSSING SUPERVISOR Inhaled Oxygen Concentration - - Weight 88 kg (194 lb) 08/01/2018 1:02 PM CROSSING SUPERVISOR Height 167.6 cm (5' 6) 08/01/2018 1:02 PM CROSSING SUPERVISOR Body Mass Index 31.31 08/01/2018 1:02 PM CROSSING SUPERVISOR Plan of Treatment Health Maintenance Due Date Last Done Comments Colorectal Cancer Screening Colonoscopy (10 Years) 1969 Annual Physical 1972 Hepatitis C 1987 Hepatitis B Vaccines (1 of 3 - 19+ 3-dose series) 1988 Mammogram Screening 2009 Pneumococcal Vaccine: 50+ Ye ars (1 of 1 - PCV) 2019 Zoster Vaccines (1 of 2) 2019 COVID-19 Vaccine (1 - 2023-2 5 season) 2025 DTaP, Tdap and Td Vaccines ( 2 [...] patient's age to complete this topic Insurance [employer]
--- OUTSIDE RECORDS SUMMARY | 2025-05-21 14:12 | XMS_ITS | Clinical Summary ---
Author Organization [facility] Address [address] [place] [address] Care Team Providers Care Spanish Medical Interpreter Name Role Phone Key Tolliver MD Primary Care Provider Allergies Active Allergy Reactions Criticality Noted Date Comments Hydromorphone Itching Medium Reaction: ITCHING Morphine Itching High Reaction: ITCHING Medications ferrous sulfate 325 mg (65 mg of elemental iron) tabletIndications :Iron Deficiency Anemia Take 1 tablet (65 mg of elemental iron total) by mouth daily with breakfast Active famotidine (PEPCID) 20 mg tablet Take 1 tablet (20 mg total) by mouth 2 (two) times a day Active metoprolol (LOPRESSOR) 100 mg tablet Take 1 tablet (100 mg total) by mouth 2 (two) times a day Active mirtazapine (REMERON) 15 mg tablet Take 1 tablet (15 mg total) by mouth nightly Active omeprazole (PriLOSEC) 40 mg capsule Take 1 capsule (40 mg total) by mouth daily Active venlafaxine 225 mg tablet extended release 24hr 24 hr tablet Take 1 tablet (225 mg total) by mouth daily Active traZODone (DESYREL) 150 mg tablet Take 1 tablet (150 mg total) by mouth nightly Active NIFEdipine (NIFEdipine XL) 90 mg 24 hr tablet Take 1 tablet (90 mg total) by mouth daily 90 tablet 3 5 12/09/19 26 Active albuterol HFA (PROVENTIL HFA,VENTOLIN HFA,PROAIR HFA) 90 mcg/actuation inhaler INHALE 1 PUFF BY MOUTH EVERY 4 HOURS NEEDED Active losartan (COZAAR) 25 mg tabletIndications :Essential hypertension Take 1 tablet (25 mg total) by mouth daily 90 tablet 3 5 04/13/[address] (VOLTAREN) 75 mg EC tablet Take 1 tablet (75 mg total) by mouth 2 (two) times a day as needed for pain 60 tablet 5 Active Active Problems Problem Noted Date Diagnosed Date Essential hypertension 12/08/2024 BAEZ (dyspnea on exertion) 12/08/2024 Hypercholesteremia 12/08/2024 Severe obesity 12/08/2024 Encounters Date Type Department Care Team Description 05/14/2025 2:33 PM CDT - 05/14/2025 11:59 PM CDT Hospital En[facility] [address] [place] [phone] Discharge Disposition: Discharge to home or self care 05/14/2025 2:33 PM CDT - 05/14/2025 11:59 PM CDT Hospital Encounter [facility] [address] [place] [phone] Discharge Disposition: Discharge to home or self care 05/14/2025 2:00 PM CDT Office Visit [facility] Orthopedics and Sports Medicine at [address] [address] Jace Muller MD Pain in left foot (Primary Dx); Peroneal tendonitis of left lower leg 04/13/2025 12:00 PM CDT Office Visit [facility] Cardiology [address] [facility] [address] [place] [phone] Marialuisa Anglin MD Essential hypertension (Primary Dx); BAEZ (dyspnea on exertion); Hypercholesteremia 03/26/2025 Telephone [facility] Neurology [facility] [address] [place] [phone] Provider, MD Viktor Scheduling Appointments (REFERRAL APPOINTMENT ) from Last 3 Months Surgical History Surgery Date Site/Laterality Comments CONTRAST INJECTION EVALUATIO N CENTRAL VENOUS ACCESS DEVICE 09/15/2013 N/A IR FINE NEEDLE ASPIRATION W IMAGE GUIDANCE 05/16/2013 N/A FLUORO GUIDED ASPIRATION OR INJECTION LARGE JOINT BILATERAL 09/09/2021 Bilateral Medical History Medical History Date Comments Hypertension Anxiety Depression Asthma Family History Medical History Relation Name Comments Hypertension Father Diabetes Half-Sister 1 Hypertension Half-Sister 1 Arthritis Half-Sister 2 No Known Problems Mother Relation Name Status Comments Father Alive Half-Sister 1 Alive Half-Sister 2 Alive Mother Social History Tobacco Use Types Packs/Day Years Used Date Smoking Tobacco: Never Smokeless Tobacco: Never Tobacco Cessation:Counseling Given: Not Answered Comments Unknown Sex and Gender Information Value Date Recorded Sex Assigned at Not on file 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 Gender Identity Not on file Sexual Orientation Not on file Obstetrics History Last Filed Vital Signs Vital Sign Reading Time Taken Comments Blood Pressure 138/80 04/13/2025 11:54 AM CDT Pulse 85 04/13/2025 11:54 AM CDT Temperature - - Respiratory Rate - - Oxygen Saturation 96% 04/13/2025 11:54 AM CDT Inhaled Oxygen Concentration - - Weight 104.8 kg (231 lb) 05/14/2025 2:08 PM CDT Height 165.1 cm (5' 5) 05/14/2025 2:08 PM CDT Body Mass Index 38.44 05/14/2025 2:08 PM CDT Plan of Treatment Health Maintenance Due Date Last Done Comments Cervical Cancer Screening 1969 Depression Screening 1969 Hepatitis C Screening 1969 Hepatitis B Screening 1987 Regular Well Visit/Exam 18-64 1987 Breast Cancer Screening-Mammogram 05/07/2014 013 Zoster Vaccine (1 of 2) 2019 Colon Cancer Screening-Colonoscopy 06/23/2021 06/23/2011 Covid-19 Vaccine (2024-10 6 season) 2025 08/03/2021, 12/25/2020, 12/02/2020 Influenza Vaccine (#1) 2025 4, 08/22/2023, 08/23/2022, Additional history exists DTaP/Tdap/Td Vaccine (3 - Td or Tdap) 09/11/2027 09/11/2017, 09/04/2016 Colon Cancer Screening-CT Colonography Discontinued 06/23/2011 Colon Cancer Screening-DNA Stool Discontinued 06/23/20 Colon Cancer Screening-FIT Discontinued 06/23/2011 Colon Cancer Screening-Sigmoidoscopy Discontinued 06/23/2011 Pneumococcal vaccine <65 Completed 08/22/2023 Procedures Procedure Name Priority Date/Time Associated Diagnosis Comments XR FOOT LEFT 3 OR MORE VIEWS Schedule Routine, Read Routine (OP Routine) 05/14/2025 2:59 PM CDT Pain in left foot XR CALCANEUS LEFT 2 OR MORE VIEWS Schedule Routine, Read Routine (OP Routine) 05/14/2025 2:59 PM CDT Pain in left foot SCREENING MAMMOGRAM W CHRIS Routine 05/07/2013 1:59 PM CDT COLONOSCOPY 06/23/2011 12:00 AM CDT from Last 3 Months or Most Recently Relevant to Health Maintenance Results * XR Foot Left 3 or More Views (05/14/2025 2:59 PM CDT) Anatomical Region Laterality Modality Lower Extremities, Foot Left Computed Radiography Narrative 05/14/2025 2:59 PM CDT Healed first TMT fusion, no talar plantar flexion or forefoot abduction us Jace Muller MD IMG XR PROCEDURES Vivian l Result * XR Calcaneus Left 2 or More Views (05/14/2025 2:59 PM CDT) Anatomical Region Laterality Modality Lower Extremities, Foot Left Computed Radiography Narrative 05/14/2025 2:59 PM CDT Healed MDCO us Jace Muller MD IMG XR PROCEDURES Vivian l Result * Screening Mammogram W Chris (05/07/2013 1:59 PM CDT) Anatomical Region Laterality Modality Breast N/A Mammography 05/07/2013 1:59 PM CDT Narrative 05/08/2013 12:19 PM CDT YUNG MONAHAN M.D. BEATA MARINELLI M.D. FINAL REPORT The radiology attending physician has personally reviewed this study, and has reviewed and/or edited this written report and agrees with it. ACC# Date Time Exam [id number] May 07, 2013 13:59:00 [facility] [id number] Bilateral Tomosynthesis Technologist(s): Ashley Batista; ; [id number] May 07, 2013 13:59:00 [facility] [id number] Diag Mammogram Bilateral Technologist(s): Ashley Batista; ; [id number] May 07, 2013 14:24:00 [facility] [id number] Sono Breast (Unilateral) L EXAMINATION: BILATERAL FULL FIELD DIGITAL DIAGNOSTIC MAMMOGRAM, DIGITAL BREAST TOMOSYNTHESIS, AND LEFT BREAST SONOGRAM HISTORY: 43-year-old woman being seen in the breast surgery clinic today for additional evaluation of palpable left breast masses. MAMMOGRAM TECHNIQUE: Bilateral CC and MLO views were obtained utilizing full field digital mammography. Additional spot magnification views of the left breast were performed. Digital breast tomosynthesis was also performed and reviewed as a part of this examination. COMPARISON: Comparison is made to diagnostic mammogram and accompanying ultrasound performed at [facility] [place] on 04/28/2013. BREAST PARENCHYMAL COMPOSITION: Heterogeneously dense, which could obscure detection of small masses. MAMMOGRAM FINDINGS: No suspicious abnormality is seen in the right breast on mammogram. Within the left breast, there is skin thickening. There is an ill-defined mass with microcalcifications in the upper outer quadrant. SONOGRAM FINDINGS: Directed sonogram of the left breast demonstrates extensive hypoechoic masses from the 11 through 2:30 o'clock positions with evidence of intraductal extension. The largest of these masses measures 3.2 cm at the 2:30 o'clock position, 4 cm from the nipple. A mass at the 12 o'clock position, 4 cm from the nipple measures approximately 1.9 cm and a third mass at the 11 o'clock position measures approximately 1.3 cm. Directed sonogram of the left axilla demonstrates an abnormal lymph node with marked cortical thickening. IMPRESSION: 1. Numerous hypoechoic masses in the left breast as described, with evidence of intraductal extension. These would be amenable to ultrasound-guided core needle biopsy. To demonstrate extent of disease, consider biopsy of masses at both the 11:30 and 2:30 o'clock positions. 2. Abnormal left axillary lymph node is amenable to ultrasound-guided fine needle aspiration. 3. Contrast-enhanced breast MRI can be performed to demonstrate extent of disease. The above findings and recommendations were discussed with the patient at the conclusion of the examination and written report was submitted to Dr. Palmer. The patient has been scheduled to return to the [facility] for an ultrasound-guided core needle biopsy of the left breast and ultrasound-guided fine needle aspiration of the left axilla on 05/12/2013 at 12:30 p.m. OVERALL FINAL ASSESSMENT: BI-RADS Category 5: Highly suggestive of malignancy. Requested By: Yeni Palmer MD, PHD Dictated By: BEATA MARINELLI M.D. on May 07 2013 5:25P This document has been electronically signed by: YUNG MONAHAN M.D. on May 08 2013 12:19P Procedure Note Provider, MD Viktor - 12/28/2016 YUNG MONAHAN M.D. BEATA MARINELLI M.D. FINAL REPORT The radiology attending physician has personally reviewed this study, and has reviewed and/or edited this written report and agrees with it. ACC# Date Time Exam [id number] May 07, 2013 13:59:00 [facility] [id number] Bilateral Tomosynthesis Technologist(s): Ashley Batista; ; [id number] May 07, 2013 13:59:00 [facility] [id number] Diag Mammogram Bilateral Technologist(s): Ashley Batista; ; [id number] May 07, 2013 14:24:00 [facility] [id number] Sono Breast (Unilateral) L EXAMINATION: BILATERAL FULL FIELD DIGITAL DIAGNOSTIC MAMMOGRAM, DIGITAL BREAST TOMOSYNTHESIS, AND LEFT BREAST SONOGRAM HISTORY: 43-year-old woman being seen in the breast surgery clinic today for additional evaluation of palpable left breast masses. MAMMOGRAM TECHNIQUE: Bilateral CC and MLO views were obtained utilizing full field digital mammography. Additional spot magnification views of the left breast were performed. Digital breast tomosynthesis was also performed and reviewed as a part of this examination. COMPARISON: Comparison is made to diagnostic mammogram and accompanying ultrasound performed at [facility] on 04/28/2013. BREAST PARENCHYMAL COMPOSITION: Heterogeneously dense, which could obscure detection of small masses. MAMMOGRAM FINDINGS: No suspicious abnormality is seen in the right breast on mammogram. Within the left breast, there is skin thickening. There is an ill-defined mass with microcalcifications in the upper outer quadrant. SONOGRAM FINDINGS: Directed sonogram of the left breast demonstrates extensive hypoechoic masses from the 11 through 2:30 o'clock positions with evidence of intraductal extension. The largest of these masses measures 3.2 cm at the 2:30 o'clock position, 4 cm from the nipple. A mass at the 12 o'clock position, 4 cm from the nipple measures approximately 1.9 cm and a third mass at the 11 o'clock position measures approximately 1.3 cm. Directed sonogram of the left axilla demonstrates an abnormal lymph node with marked cortical thickening. IMPRESSION: 1. Numerous hypoechoic masses in the left breast as described, with evidence of intraductal extension. These would be amenable to ultrasound-guided core needle biopsy. To demonstrate extent of disease, consider biopsy of masses at both the 11:30 and 2:30 o'clock positions. 2. Abnormal left axillary lymph node is amenable to ultrasound-guided fine needle aspiration. 3. Contrast-enhanced breast MRI can be performed to demonstrate extent of disease. The above findings and recommendations were discussed with the patient at the conclusion of the examination and written report was submitted to Dr. Palmer. The patient has been scheduled to return to the [facility] for an ultrasound-guided core needle biopsy of the left breast and ultrasound-guided fine needle aspiration of the left axilla on 05/12/2013 at 12:30 p.m. OVERALL FINAL ASSESSMENT: BI-RADS Category 5: Highly suggestive of malignancy. Requested By: Yeni Palmer MD, PHD Dictated By: BEATA MARINELLI M.D. on May 07 2013 5:25P This document has been electronically signed by: YUNG MONAHAN M.D. on May 08 2013 12:19P us Historical Provider MD ESTEVEZ MAMMO PROCEDURES Vivian l Result * COLONOSCOPY (06/23/2011 12:00 AM CDT) Anatomical Region Laterality Modality Other Narrative 06/23/2011 12:00 AM CDT Ordered by an unspecified provider. Procedure Note Provider, Viktor, - 06/23/2011 12:00 AM CDT PROCEDURE REPORT Patient: CHELA MENDENHALL Account: [id number] Room No: 2619-01 : 1970 Patient Type: IP Attend.: Peter Fowler M.D. Admit Date: 06/22/2011 Dict.: Glen Huddleston M.D. Disch. Date: NAME OF PROCEDURE: Colonoscopy with biopsy. DATE OF OPERATION: 06/23/2011. INDICATIONS: Abdominal pain, blood in the stool. BRIEF HISTORY AND PHYSICAL: The patient is a 41-year-old white femalewith acute abdominal pain for the last two days with occult blood in thestool. She has nausea and diarrhea. In the past, she has a episodes of pain andshe has a vague history of colitis in the past. PROCEDURE: Sedation for this procedure was provided by anesthesiaservice. The procedure of colonoscopy, including indications and technique and possible complications of bleeding, infection, perforation requiringsurgery, was explained to the patient and consent was obtained. All vital signswere monitored during the procedure. Rectal examination prior to colonoscopywas unremarkable. The scope was introduced into the rectum and advanced allthe way to the cecum which was identified by the ileal cecal valve and appendiceal orifice. The terminal ileum was intubated for about 5 cmand appeared normal. The entire visualized colon and mucosa appeared unremarkable. At some areas, there was noticed some mild mucosal edemaof questionable significance vs mild mucosal inflammation. Random colonbiopsy throughout the colon was performed. The rectum and retroflex view ofthe rectum were unremarkable. Otherwise there were no clear inflammatory changes and no polyps and no mass lesions noted. IMPRESSION: Unremarkable colonoscopy. RECOMMENDATIONS 1. Follow pathology report. 2. Small bowel series tomorrow. 3. Continue clear liquid diet and pain control for now. 4. Follow clinical progress. Glen Huddleston M.D. AK/cl TD: 06/23/2011 15:33 PROCEDURE REPORT Authenticated by Glen Huddleston MD On 07/04/2011 12:56:13 PM us Historical Provider MD ENDOSCOPY PROCEDURES Vivian l Result from Last 3 Months or Most Recently Relevant to Health Maintenance Insurance [facility] Care Teams Spanish Medical Interpreter Relationship Specialty Start Date End Date Key Tolliver MD [address] [place] [id number] PCP - General Internal Medicine 12/08/24
--- OUTSIDE RECORDS SUMMARY | 2025-05-21 14:12 | XMS_ITS | Encounter Summary ---
Author Organization [facility] Address [address] [place] [address] Care Team Providers Care Screw Machine Repairer Name Role Phone Key Tolliver MD Primary Care Provider [phone] Reason for Visit * Reason Comments Medication Refill Encounter Details Date Type Department Care Team ([facility] Contact Info) Description 11/05/2019 Refill [facility] Plastic Surgery and Burn [address] [address] Rodolfo Truong MD [address] [facility] [address] [place] [address] Social History Tobacco Use Types Packs/Day Years Used Date Smoking Tobacco: Never Smokeless Tobacco: Never Alcohol Use Standard Drinks/Week Comments No 0 (1 standard drink = 0.6 oz pur e alcohol) Comments No Sex and Gender Information Value Date Recorded Sex Assigned at Not on file 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 Gender Identity Not on file Sexual Orientation Not on file documented as of this encounter Plan of Treatment Upcoming Encounters Date Type Department Care Team ([facility] Contact Info) Description 06/25/2025 2:00 PM CDT Office Visit [facility] Oncology and Hematology - [address] [facility] [address] [place] [address] Eavn Willis MD [address] [facility] [address] [place] [address] 08/17/2025 1:00 PM AERIAL LINEMAN Office Visit [facility] Plastic Surgery at the [facility] [address] [facility] [address] [place] [address] Rodolfo Truong MD [address] [facility] [address] [place] [address] documented as of this encounter Visit Diagnoses Not on filedocumented in this encounter Care Teams Screw Machine Repairer Relationship Specialty Start Date End Date Key Tolliver MD [address] [place] [address] PCP - General Internal Medicine 11/05/18 documented as of this encounter
--- OUTSIDE RECORDS SUMMARY | 2025-05-21 14:12 | XMS_ITS | Encounter Summary ---
Author Organization [facility] Address [address] [place] [address] Care Team Providers Care Candy Maker Name Role Phone Key Tolliver MD Primary Care Provider [phone] Reason for Visit * Reason Comments Medication Refill Encounter Details Date Type Department Care Team ([facility] Contact Info) Description 05/11/2020 [facility] [id number] 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 No / Unsure 04/29/2020 10:13 AM CDT documented as of this encounter Plan of Treatment Upcoming Encounters Date Type Department Care Team ([facility] Contact Info) Description 06/25/2025 2:00 PM CDT Office Visit [facility] Oncology and Hematology - [address] [place] [address] Evan Willis MD [address] [facility] [address] [place] [address] 08/17/2025 1:00 PM SHIP CAPTAIN Office Visit [facility] Plastic Surgery at the [facility] [address] [place] [phone] Rodolfo Truong MD [address] [facility] [address] [place], [place] [phone] documented as of this encounter Visit Diagnoses Diagnosis Malignant neoplasm of upper-outer quadrant of left breast in female, estrogen receptor positive (CMS/HCC) documented in this encounter Care Teams Candy Maker Relationship Specialty Start Date End Date Key Tolliver MD [address] [place] [address] PCP - General Internal Medicine 11/05/18 documented as of this encounter
== END 2025-05-21 14:08 | disposition home or self-care (01) ==
PROVIDERS: PCP Internal Medicine Infectious Disease; Visit Provider Orthopaedic Surgery
DX: M25.511 Pain in right shoulder (principal)
CPT/HCPCS: 73221

== ENCOUNTER 2025-06-15 14:35 | Outpatient (CLI) | payer OTHER, SELFPAY ==
--- NOTE | ~2025-06-15 | MR_ITS ---
MR breast BI wo/w con 06/22/2025 9:03 CDT INDICATION: Acquired absence of bilateral breasts and nipples personal history of malignant neoplasm of the breasts. Evaluate for mass. TECHNIQUE: MRI of the breasts perform using standard protocol pre-and post IV contrast with the following sequences: Axial T2 STIR, axial T1, axial vibrant T1 with fat suppression precontrast and multiphasic postcontrast. 20 cc MultiHance administered intravenously. Study not tailored for breast implant rupture evaluation. Recommend dedicated MRI examination utilizing appropriate protocol if there is continuing concern for implant rupture. COMPARISON: Comparison to multiple prior studies sequentially, with oldest reviewed study dated 04/28/2013. No recent examinations are available for comparison. FINDINGS: Bilateral breast implants are present. No definite evidence of intracapsular or extracapsular rupture is identified; however, the study is not tailored for optimal assessment of implant integrity. There is mild diffuse. Plain enhancement bilaterally, which may be be nonspecific and can reflect postsurgical or inflammatory change. Breast parenchyma: There is moderate bilateral background enhancement. No new or suspicious enhancing mass or non mass enhancement is identified in either breast. Chest wall and axilla no abnormal enhancing chest wall lesion or axillary lymphadenopathy is detected. IMPRESSION: 1: No definite MRI evidence of implant rupture; however, the study is not optimized for implant evaluation, and a dedicated noncontrast silicone implant protocol MRI would be required for definitive assessment. 2: Mild diffuse. Plan enhancement, likely nonspecific postsurgical or inflammatory change. 3: No suspicious enhancing mass identified. Routine yearly screening mammogram and regular clinical breast examination are recommended. BI-RADS CATEGORY 2 - BENIGN FINDINGS Reviewed, dictated and finalized at location O. IMPRESSION: 1: No definite MRI evidence of implant rupture; however, the study is not optim ized for implant evaluation, and a dedicated noncontrast silicone implant rock col MRI would be required for definitive assessment. 2: Mild diffuse. Plan enhancement, likely nonspecific postsurgical or inflamma tory change. 3: No suspicious enhancing mass identified. Routine yearly screening mammogram and regular clinical breast examination are recommended. BI-RADS CATEGORY 2 - BENIGN FINDINGS
--- OUTSIDE RECORDS SUMMARY | 2025-06-15 15:37 | XMS_ITS | Encounter Summary ---
Author Organization [facility] Address [address] [place] [address] Care Team Providers Care Dianetic Counselor Name Role Phone Key Tolliver MD Primary Care Provider Pablo Liriano MD Unavailable [phone] Evan Willis MD Unavailable [phone] Charles Kingston MD Unavailable Reason for Visit * Reason Onset Date Comments Question 02/20/2025 Encounter Details Date Type Department Care Team (Late st Contact Info) Description 02/20/2025 Telephone [facility] - Orthopedic Surgery [address], [facility] [address] [place] [address] Tamie Olivas, DARRON Question Social [...] on file 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 Gender Identity Not on file Sexual Orientation [...] of Assessment Author No 06/14/2022 12:15 AM Haylie Ngo RN * Does person have difficulty doing [...] Care Team (Late st Contact Info) Description 09/23/2025 11:30 AM CERTIFIED PROFESSIONAL ERGONOMIST Office Visit [facility] - Orthopedics [address] [facility] [place] [address] Yandel Petersen MD [address] [place] [address] 03/11/2026 2:00 PM CDT Office Visit [facility] - Rheumatology [address] [facility] [place] [address] Ev Lowery MD [facility] [facility] 2L [place] [phone] documented as of this encounter Goals Goal Patient Goal Type Associated Problems Recent Progress Patient-Stated? Author Mobility General Improving( 1:50 PM CDT) No Coreen Muñoz, RN Note: Expected end date: 12/01/2020 The goal is to maintain or improve your mobility at the optimum level for you. Interventions: Mobility General Worsening( 1:20 PM CERTIFIED PROFESSIONAL ERGONOMIST) No Lilo Kamniski, DARRON Note: Expected end date: 11/17/2019 The goal is to maintain or improve your mobility at the optimum level for you. Interventions: PAIN General No Shira Sun, DARRON Note: Expected end date: 01/18/2020 Patient's pain/discomfort is manageable. Interventions: documented as of this encounter Visit Diagnoses Not on filedocumented in this encounter Care Teams Dianetic Counselor Relationship Specialty Start Date End Date Key Tolliver MD [address] [place] [phone] PCP - General 10/22/18 Pablo Liriano MD [address] [place] [address] [phone] Orthopedic Surgery 05/22/19 Evan Willis MD [address] [place] [address] [id number] Medical Oncologist Medical Oncology 11/02/21 Charles Kingston MD [address] [place] [phone] A&P Technician Cardiology 11/03/21 documented as of this encounter
--- OUTSIDE RECORDS SUMMARY | 2025-06-15 15:37 | XMS_ITS | Clinical Summary ---
Author Organization [facility] Address [address] [place], [place] [address] [address] Care Team Providers Care Respiratory Care Faculty Name Role Phone Key Tolliver MD Primary Care Provider [phone] Allergies Active Allergy Reactions Criticality Noted Date [...] Tablet 4 Active naloxone (NARCAN) 4 mg/spray [place], Non-Aerosol EMERGENCY USE ONLY: Administer 1 spray [...] Data STL ABSTRACTION Provider, Abstract 04/14/2025 Telephone [facility] Plastic Surgery at the 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 Gender Identity Not on file Sexual Orientation Not on file Last Filed Vital Signs Vital Sign Reading Time Taken Comments Blood Pressure 153/86 08/11/2024 12:55 PM FOSTER CARE SOCIAL WORKER Pulse 88 07/28/2024 12:10 PM FOSTER CARE SOCIAL WORKER Temperature 36.3 C (97.4 F) 07/28/2024 12:10 PM FOSTER CARE SOCIAL WORKER Respiratory Rate 20 07/28/2024 12:10 PM FOSTER CARE SOCIAL WORKER Oxygen Saturation 94% 07/28/2024 12:10 PM FOSTER CARE SOCIAL WORKER Inhaled Oxygen Concentration - - Weight 104.8 kg (231 lb) 08/11/2024 12:55 PM FOSTER CARE SOCIAL WORKER Height 165.1 cm (5' 5) 08/11/2024 12:55 PM FOSTER CARE SOCIAL WORKER Body Mass Index 38.44 08/11/2024 12:55 PM FOSTER CARE SOCIAL WORKER Plan of Treatment Upcoming Encounters Date Type Department Care Team (Late st Contact Info) Description 06/25/2025 2:00 PM CDT Office Visit [facility] Oncology and Hematology - [place] [address] [facility] [address] [place] [address] Evan Willis MD [address] [facility] [address] [place] [address] 08/17/2025 1:00 PM FOSTER CARE SOCIAL WORKER Office Visit [facility] Plastic Surgery at the [facility] [address] [facility] [address] [place] [address] Rodolfo Truong MD [address] [address] Health Maintenance Due Date Last Done Comments [...] 09/11/2027 09/11/2017 Medical Devices Implanted Type Area Supervisor Plastics Device Identifier Shelf Expiration Date Model / Serial / Lot Tire Room Supervisor Clip Surgiclip Ii Yordan 9.75in [id number] - [id number] Implanted:Qty: 1 on 10/23/2019 by Rodolfo Truong MD at [facility] Clip N/A: Breast [employer] - COVIDIEN [id number] 06/02/2024 [id number] / / [id number] Natrelle Inspira Softtouch Breast Implant Implanted:Qty: 1 on 07/28/2024 by Rodolfo Truong MD at [facility] Other Right: Breast [employer]ICAL [id number] 10/08/2028 SSX-750 / [id number] / Natrelle Inspira Softtouch Breast Implant Implanted:Qty: 1 on 07/28/2024 by Rodolfo Truong MD at [facility] Other Left: Breast [employer]- MEDICAL [id number] 07/16/2026 SSF-745 / [id number] / Description:Both Allergan Im plants Requisition,[id number]. Knee Replacement-Yves Plate/ Screws Of Neck Left Shoulder Replacement Explanted Type Area Supervisor Plastics Device Identifier Shelf Expiration Date Model / Serial / Lot Tissue Climatologist W/ Suture Tabs Implanted:Qty: 1 on 10/23/2019 by Rodolfo Truong MD at [facility] Explanted:Qty: 1 on 04/06/2020 at [facility] Mammary Left: Breast [employer]- MEDICAL [id number] 07/07/2024 133S-MX-1 3-T / [id number] / Description:Filled with 120m l 0.9% NaCl Both Allergan tissue expanders are processed on requisition [id number]. Tissue Climatologist With Suture Tabs Implanted:Qty: 1 on 10/23/2019 by Rodolfo Truong MD at [facility] Explanted:Qty: 1 on 04/06/2020 at [facility] Mammary Right: Breast [employer]- MEDICAL 04/25/2024 133S-MX-1 3-T / [id number] / Description:Requisition # [id number] Natrelle Inspira Softtouch Breast Implant 450cc Implanted:Qty: 1 on 04/06/2020 by Rodolfo Truong MD at [facility] Explanted:Qty: 1 on 08/16/2020 at [facility] Mammary Left: Breast [employer]ICAL [id number] 08/17/2024 SSF-450 / [id number] / Description:Both Allergan Br east Implants are processed on requisition [id number]. Natrelle Inspira Softtouch Breast Implant 525cc Implanted:Qty: 1 on 04/06/2020 by Rodolfo Truong MD at [facility] Explanted:Qty: 1 on 08/16/2020 at [facility] Mammary Right: Breast [employer]- MEDICAL [id number] 12/29/2023 SSX-525 / [id number] / Description:Requisition # [id number]. Natrelle Inspira Soft Touch Ssf-560 Implanted:Qty: 1 on 08/16/2020 at [facility] Explanted:Qty: 1 on 02/22/2023 by Rodolfo Truong MD at [facility] Right: Breast [employer]- MEDICAL [id number] 06/21/2024 SSF-560 / [id number] / Description:Requisition # [id number] left breast Imp Breast Inspira Ssx 700ml Ssx-700 - [id number] Explanted:Qty: 1 on 02/22/2023 at [facility] Right: Breast [employer]- MEDICAL 01/04/2026 SSX-700 / [id number] / Natrelle Inspira Softtouch Ssx-615 Implanted:Qty: 1 on 08/16/2020 at [facility] Explanted:Qty: 1 on 02/22/2023 by Rodolfo Truong MD at [facility] Right: Breast [employer]- [employer]ICAL [id number] 10/15/2024 SSX-615 / [id number] / Description:both Allergan re placement breast implants are processed on requisition [id number]. Imp Breast Inspira Ssf 650ml Ssf-650 - [id number] Implanted:Qty: 1 on 02/22/2023 by Rodolfo Truong MD at [facility] Explanted:Qty: 1 on 07/28/2024 by Rodolfo Truong MD at [facility] Mammary Left: Breast [employer]- MEDICAL 09/11/2027 SSF-650 / [id number] / Imp Breast Inspira Ssx 615ml Ssx-615 - [id number] Implanted:Qty: 1 on 02/22/2023 by Rodolfo Truong MD at [facility] Explanted:Qty: 1 on 07/28/2024 by Rodolfo Truong MD at [facility] Mammary Right: Breast [employer]- MEDICAL 10/15/2024 SSX-615 / [id number] / Description:Original implant placed on 08/16/2020 was explanted today but surgeon reimplanted after trying alteratives unsuccessfully. Procedures Procedure Name Priority Date/Time Associated Diagnosis Comments ENDOSCOPY, COLON, SCREENING Routine 01/01/2017 from Last 3 Months or Most Recently Relevant to Health Maintenance Results * ENDOSCOPY, COLON, SCREENING (01/01/2017) [facility] Brenda Delgado MD GI PROCEDURE ORDERABLES Edited Result - Final [facility] from Last 3 Months or Most Recently Relevant to Health Maintenance Insurance [employer] MEDICAID RX [place] [employer] (INTERNAL) [facility] RX [employer] Medicaid RX [facility] [place] [address] [facility] MEDICAID Advance Directives For more information, please contact: [phone] * Full Code (Latest Code Status on [...] 8:44 AM 10/23/2019 2:10 PM Care Teams Respiratory Care Faculty Relationship Specialty [place] [address] [place] [phone] PCP - General Internal Medicine 11/05/18
--- OUTSIDE RECORDS SUMMARY | 2025-06-15 15:37 | XMS_ITS | Clinical Summary ---
Author Organization [facility] Address [address] [place] [address] Phone Care Team Providers Care Client Account Representative Name Role Phone Key Tolliver MD Primary [...] (1 of 2) 2019 Influenza Immunization (#1) 2025 SARS-COV-2 Immunization ( - 2024- season) 2025 08/03/2021, 12/25/2020, 12/02/2020 Respiratory Syncytial Virus (RSV) [...] Insurance MEDICAID [employer] Care Teams Client Account Representative Relationship Specialty Start Date End Date Key Tolliver MD [address] [place] [address] PCP - General Internal Medicine 03/14/20
--- OUTSIDE RECORDS SUMMARY | 2025-06-15 15:38 | XMS_ITS | Clinical Summary ---
Author Organization [facility] Address [address] [place] [address] Care Team Providers Care Machine Shop Apprentice Name Role Phone Key Tolliver MD Primary Care Provider Pablo Liriano MD Unavailable [phone] Evan Willis MD Unavailable [phone] Charles Kingston MD Unavailable Source Comments [facility],non-owned Affiliates and Associated Physician Practices is amultiple site organization consisting of ambulatory clinics and hospital sitesin [place], [place], [place] and [place]. This disclosure is being madepursuant to the Care Everywhere program and may not contain all information available regarding this patient. 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 95 capsule 5 06/30/20 25 Active Active Problems Problem Noted Date Diagnosed [...] disease contact 04/27/2021 Other viral disease contact 04/27/2021 0809/2022 Contact with and (suspected) exposure to other viral communicable diseases 04/27/2021 08/09/2023 Trigger finger of left hand 04/19/202104/05 Family history of stroke 03/30/2021 Family history of hypertension 03/30/2021 Family history of hyperlipidemia 03/30/2021 Atherosclerotic heart diseas e of [place] coronary artery without angina pectoris 03/30/2021 Chest [...] Encounters Date Type Department Care Team Description 06/10/2025 Telephone [facility] - Orthopedics [address] [facility], [place] [address] Myriam Roman, RN Appointment 06/05/2025 Telephone [facility] [address] [facility], [facility] [place] [address] Myriam Roman cylinder head assembler 05/28/2025 2:30 PM CDT Office Visit [facility] - Orthopedic Surgery [address] [place] [address] Yandel Petersen MD Lumbar pain (Primary Dx); Lumbar radiculopathy; Status post cervical disc replacement; Pain in joint of right shoulder 05/28/2025 1:00 PM CDT - 05/28/2025 11:59 PM CDT Hospital Encounter [facility] - Orthopedics [address] [place] [address] Yandel Petersen MD Discharge Disposition: Home or Self Care 05/28/2025 Travel from Last 3 Months Immunizations Immunization Administration [...] on file Legal Sex Female 11:46 AM BODY CORPORATE MANAGER Gender Identity Not on file Sexual [...] st Contact Info) Description 09/23/2025 11:30 AM BODY CORPORATE MANAGER Office Visit [facility] - Orthopedics [address] [facility], [facility] [place] [address] Yandel Petersen MD [address] [place] [address] 03/11/2026 2:00 PM CDT Office Visit [facility] - Rheumatology [facility] [facility], [place] [address] Ev Lowery MD [facility] [place] [phone] Health Maintenance Due Date Last Done Comments COLOGUARD (AGES 45-75) - COLON CA SCREENING 1969 CT COLONOGRAPHY - COLON CA SCREENING 1969 FIT - COLON CA SCREENING 1969 FLEX SIG - COLON CA SCREENING 1969 HEPATITIS B VACCINE (1 of 3 - 19+ 3-dose series) 1988 PNEUMOCOCCAL VACCINE 50+ (1 of 2 - PCV) 1988 MAMMOGRAM 05/07/2015 05/07/2013, 12/2012, 05/07/2013 ZOSTER VACCINE (1 of 2) 2019 COVID-19 VACCINE ( - season) 2025 08/03/2021, 12/25/2020, 12/02/2020 INFLUENZA VACCINE (#1) 2025 2, 05/23/2021, 06/28/2020, Additional history exists COLON MONITORING 01/01/2027 01/01/2017 [...] General Improving( 1:50 PM CDT) No Coreen Muñoz RN Note: Expected end date: 12/01/2020 The goal is to maintain or improve your mobility at the optimum level for you. Interventions: Mobility General Worsening( 1:20 PM BODY CORPORATE MANAGER) No Lilo Kaminski, DARRON Note: Expected end date: 11/17/2019 The goal is to maintain or improve your mobility at the optimum level for you. Interventions: PAIN General No Shira Sun RN Note: Expected end date: 01/18/2020 Patient's pain/discomfort is manageable. Interventions: Medical Devices Implanted Type Area Crab Meat Processor Device Identifier Shelf Expiration Date Model / Serial / Lot Cmnt Bone Plc R+Ggnta 40gm Lf Grn Implanted:Qty: 1 on 10/11/2017 by Rajendra Ingram MD at [facility] Left: Knee [employer] 12/01/2020 [id number] / / [id number] Description:12 BEADS IN LEFT KNEE ON VICRYL SUTURE 21 BEADS IN RIGHT KNEE ON VICRYL SUTURE Brng [id number] Vngrd Arcm Kn Ant Stab Implanted:Qty: 1 on 10/16/2017 by Rajendra Ingram MD at [facility] Left: Knee [employer] 06/09/2022 [id number] / / Brng [id number] Vngrd Arcm Kn Ant Stab Implanted:Qty: 1 on 10/16/2017 by Rajendra Ingram MD at [facility] Right: Knee [employer] 07/25/2022 [id number] / / Cmpnt Tibtry Bmt As Mx Kn Intlk Prm Lck Implanted:Qty: 1 on 10/16/2017 by Rajendra Ingram MD at [facility] Left: Knee [employer] 07/11/2027 [id number] / / Cmpnt Tibtry Bmt As Mx Kn Intlk Prm Lck Implanted:Qty: 1 on 10/16/2017 by Rajendra Ingram MD at [facility] Right: Knee [employer] 06/17/2027 [id number] / / Kam Kn Tot Rev 50% Of 2013 Implanted:Qty: 1 on 10/16/2017 by Rajendra Ingram MD at [facility] Wan [employer] KR2 KNEE TO T REV WAN BILL ONLY / / Cmpnt Glnd 38mm Std Glenosphere Sckt Geovany Implanted:Qty: 1 on 03/19/2019 by Pablo Liriano MD at [facility] Left: Shoulder [employer] Inc 11/01/2023 [id number] / / Description:DXTND GLENOSPHER E STD [id number]--26/22 LG Dxtend Mod Cent Epi 1 Ocampo Implanted:Qty: 1 on 03/19/2019 by Pablo Liriano MD at [facility] Left: Shoulder 01/01/2024 1307-20-101 / / Description:delta xtend mudu lar centered epiphysis Global Unite Std Stem Sz 8 Implanted:Qty: 1 on 03/19/2019 by Pablo Liriano MD at [facility] Left: Shoulder 08/02/2027 1100-08-100 / / Description:global unite por ocoat standard stem Dxtend Stand Pe Cup D38 +3mm Implanted:Qty: 1 on 03/19/2019 by Pablo Liriano MD at [facility] Left: Shoulder 1307-38-203 / / [id number] Description:Delta xtend lyudmila ral PE cup standard Sys Shld Tot Arthroplst Rev Implanted:Qty: 1 on 03/19/2019 by Pablo Liriano MD at [facility] Left: Shoulder [employer] S4 DEPUY / / Cmpnt Glnd 27mm Std Geovany Xtend Metaglene Implanted:Qty: 1 on 03/19/2019 by Pablo Liriano MD at [facility] Left: Shoulder [employer] 12/02/2023 1307-60-000 / / Description:DXTEND METAGLENE Dxtend Screw Lock D4.5x36mm Implanted:Qty: 1 on 03/19/2019 by Pablo Liriano MD at [facility] Left: Shoulder 12/02/2023 1307-90-036 / / Description:PACK ACL TISSUE FX CSTM SRG PRC DISP Screw 4.5mm 30mm Shldr Glnd Lck Geovany Implanted:Qty: 1 on 03/19/2019 by Pablo Liriano MD at [facility] Left: Shoulder [employer] 01/01/2024 1307-90-030 / / Description:DXTEND SCREW LOC K D4.1H37XG--77/22 LG 6.5mm Canellous Screw Implanted:Qty: 1 on 10/25/2020 by Anjelica Gutierres MD at [facility] Right: Ankle [employer] 486-55-01 / / 6.5mm Cancellous Screw Implanted:Qty: 1 on 10/25/2020 by Anjelica Gutierres MD at [facility] Right: Ankle [employer] / / Cortical Screw 2.7mm Implanted:Qty: 1 on 10/25/2020 by Anjelica Gutierres MD at [facility] Right: Ankle [employer] [id number] / / Screw 3.5mm 32mm 2.5mm Slf-Tap Sm Hex Implanted:Qty: 2 on 10/25/2020 by Anjelica Gutierres MD at [facility] Right: Ankle [employer] [id number] / / Screw 3.5mm 45mm 2.5mm Slf-Tap Sm Hex Implanted:Qty: 1 on 10/25/2020 by Anjelica Gutierres MD at [facility] Right: Ankle [employer] [id number] / / Graft Bone Alfs + Dbm 1cc Algrf Pst Implanted:Qty: 1 on 10/25/2020 by Anjelica Gutierres MD at [facility] Right: Ankle Allosource 04/08/2021 [id number] / / [id number] Bsplt Glnd 30mm Rsp Shldr P2 Strl Lf Implanted:Qty: 1 on 04/26/2022 by Mariano Guzmán MD at [facility] Left: Shoulder [employer] 03/23/2028 508-32-204 / / [id number] Screw 5mm 14mm Shldr Lck Rsp Glnd Bsplt Implanted:Qty: 1 on 04/26/2022 by Mariano Guzmán MD at [facility] Left: Shoulder [employer] 03/25/2028 506-03-114 / / [id number] Screw 5mm 14mm Shldr Lck Rsp Glnd Bsplt Implanted:Qty: 1 on 04/26/2022 by Mariano Guzmán MD at [facility] Left: Shoulder [employer] 04/05/2028 506-03-114 / / [id number] Screw 5mm 30mm Shldr Lck Rsp Glnd Bsplt Implanted:Qty: 1 on 04/26/2022 by Mariano Guzmán MD at [facility] Left: Shoulder [employer] 03/13/2028 506-03-130 / / [id number] Screw 5mm 30mm Shldr Lck Rsp Glnd Bsplt Implanted:Qty: 1 on 04/26/2022 by Mariano Guzmán MD at [facility] Left: Shoulder [employer] 03/18/2028 506-03-130 / / [id number] Cmnt Bone Djo Srg Cblt 40gm Hvisc Strl Implanted:Qty: 1 on 04/26/2022 by Mariano Guzmán MD at [facility] Left: Shoulder [employer] 03/16/2023 600-15-000 / / [id number] Head Glnd 32mm Rsp Ntrl Shldr Rtn Screw Implanted:Qty: 1 on 04/26/2022 by Mariano Guzmán MD at [facility] Left: Shoulder [employer] 03/22/2028 508-32-101 / / [id number] Ins Sckt Rsp Djo Srg +4mm Hum Hxe+ Implanted:Qty: 1 on 04/26/2022 by Mariano Guzmán MD at [facility] Left: Shoulder [employer] 12/26/2026 509-01-432 / / [id number] Humeral Stem Reverse Size 8mm X 108mm Implanted:Qty: 1 on 04/26/2022 by Mariano Guzmán MD at [facility] Left: Shoulder [employer] 10/05/2027 530-08-108 / / [id number] Rstrc Cmnt Cl Ct 10mm Implanted:Qty: 1 on 04/26/2022 by Mariano Guzmán MD at [facility] Left: Shoulder [employer] 07/03/2024 415-00-100 / / [id number] Rsp Humeral Socket Insert 32mm Semi-Constrain ed Implanted:Qty: 1 on 06/14/2022 by Mariano Guzmán MD at [facility] Left: Shoulder [employer] 08/12/2026 509-01-032 / / [id number] Spcr Hum Djo Srg Rsp +8mm Mnblck Strl Lf Implanted:Qty: 1 on 06/14/2022 by Mariano Guzmán MD at [facility] Left: Shoulder [employer] 04/12/2028 510-08-000 / / [id number] Head Glnd 32mm Rsp Ntrl Shldr Rtn Screw Implanted:Qty: 1 on 06/14/2022 by Mariano Guzmán MD at [facility] Left: Shoulder [employer] 05/17/2028 508-32-101 / / [id number] Screws Implanted:Qty: 1 on 08/10/2023 by Jace Muller MD at [facility] Left: Ankle AR-8935-32 / / Description:3.0-4.0 ARTHREX VENDOR TRAY Screw Implanted:Qty: 1 on 08/10/2023 by Jace Muller MD at [facility] Left: Ankle Arthrex Inc AR-8940-34 / / Description:3.0-4.0 ARTHREX TRAY Kit Bngf 3cc Aug Inj Implanted:Qty: 1 on 01/14/2024 by Jace Muller MD at [facility] Left: Ankle Cortona3D 08/30/2026 [id number] / / [id number] Graft Bone Ignite 2 Mini 4cc Pwr Mx - [id number] Implanted:Qty: 1 on 01/14/2024 by Jace Muller MD at [facility] Left: Ankle Luxul Wireless Inc 07/19/2028 [id number] / [id number] / Allosync Pure 5cc Implanted:Qty: 1 on 01/14/2024 by Jace Muller MD at [facility] Left: Ankle Arthrex Inc 08/20/2028 ABS-2010-01 / / [id number] 7.0 Screw 55 Implanted:Qty: 1 on 01/14/2024 by Jace Muller MD at [facility] Left: Ankle Arthrex Inc AR-8770-5H / / 7.0 Screw 40 Implanted:Qty: 1 on 01/14/2024 by Jace Muller MD at [facility] Left: Ankle Arthrex Inc AR-8770-40H / / Explanted Type Area Crab Meat Processor Device Identifier Shelf Expiration Date Model / Serial / Lot Cortical Screw 3.5mm Explanted:Qty: 1 on 10/25/2020 at [facility] Right: Ankle Wan [employer]omet [id number] / / 4.0mm Screw Explanted:Qty: 1 on 08/10/2023 at [facility] Left: Ankle AR-8940-32 / / Screw 3mm 20mm T10 Ft Slf-Tap Lck Strdr Explanted:Qty: 1 on 08/10/2023 by Felipe Bourne MD at [facility] Left: Ankle Arthrex Inc AR-8933L-20 / / Screw 3mm 18mm Va Slf-Tap Sld Lck Ankl Explanted:Qty: 1 on 08/10/2023 by Felipe Bourne MD at [facility] Left: Ankle Arthrex Inc AR-8933V-18 / / Wire K .062in 6in Fx 2 Troc Explanted:Qty: 2 on 08/10/2023 at [facility] Left: Ankle [employer] [id number] / / Screw 3.5mm 28mm T15 Ft Slf-Tap Sld Hxlb Implanted:Qty: 1 on 08/10/2023 by Jace Muller MD at [facility] Explanted:Qty: 1 on 01/14/2024 by Jace Muller MD at [facility] Left: Ankle Arthrex Inc AR-8935CL-2 8 / / Screw 3.5mm 26mm T15 Ft Slf-Tap Sld Hxlb Implanted:Qty: 1 on 08/10/2023 by Jace Muller MD at [facility] Explanted:Qty: 1 on 01/14/2024 by Jace Muller MD at [facility] Left: Ankle Arthrex Inc AR-8935CL-2 6 / / Plate Calc 7.5mm Stp Bone Implanted:Qty: 1 on 08/10/2023 by Jace Muller MD at [facility] Explanted:Qty: 1 on 01/14/2024 by Jace Muller MD at [facility] Left: Ankle Arthrex Inc AR-8949-075 / / 3.5mm Locking Screw Implanted:Qty: 1 on 08/10/2023 by Jace Muller MD at [facility] Explanted:Qty: 1 on 01/14/2024 by Jace Muller MD at [facility] Left: Ankle AR-8935CL-2 4 / / Description:3.0-4.0 ARTHREX VENDOR TRAY Screw 3mm 16mm Va Slf-Tap Sld Lck Ankl Implanted:Qty: 1 on 08/10/2023 by Felipe Bourne MD at [facility] Explanted:Qty: 1 on 01/14/2024 by Jace Muller MD at [facility] Left: Ankle Arthrex Inc AR-8933V-16 / / Screw 3mm 20mm Va Slf-Tap Sld Lck Ankl Implanted:Qty: 1 on 08/10/2023 by Felipe Bourne MD at [facility] Explanted:Qty: 1 on 01/14/2024 by Jace Muller MD at [facility] Left: Ankle Arthrex Inc AR-8933V-20 / / Procedures Procedure Name Priority Date/Time Associated Diagnosis Comments XR LUMBAR SPINE 2 OR 3VW Routine 05/28/2025 1:05 PM CDT Lumbar pain COMPREHENSIVE METABOLIC PANEL Routine 09/17/2024 12:09 PM BODY CORPORATE MANAGER Positive double stranded 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 ANTIBODY + HIV P24 AG PANEL AM Draw 10/12/2017 4:43 AM BODY CORPORATE MANAGER HEPATITIS C ANTIBODY Routine 12/27/2015 5:08 PM CDT from Last 3 Months or Most Recently Relevant to Health Maintenance Results * XR Lumbar Spine 2 or 3Vw (05/28/2025 1:05 PM CDT) Anatomical Region Laterality Modality Spine Radiographic Gely ging 05/28/2025 1:07 PM CDT Narrative 05/28/2025 1:08 PM CDT Procedure: XR LUMBAR SPINE 2 OR 3VW Exam Date: 05/28/2025 1:05 PM Location: [facility] Indication: M54.50: Lumbar pain Findings/impression: The study is compared to an old exam from February 2025. Minimal anterolisthesis of L5 on S1 is again noted. The remaining vertebral bodies are normally aligned. The vertebral bodies are of normal height. There is mild disc space narrowing throughout the lumbar spine with mild endplate spurring. There are moderate degenerative changes of the facet joints. Overall, there has been no significant interval change. > Interpreting Provider: Julio C Light MD on 05/28/2025 1:08 PM Procedure Note Julio C Light MD - 05/28/2025 Procedure: XR LUMBAR SPINE 2 OR 3VW Exam Date: 05/28/2025 1:05 PM Location: [facility] Indication: M54.50: Lumbar pain Findings/impression: The study is compared to an old exam from February 2025. Minimal anterolisthesis of L5 on S1 is again noted. The remaining vertebralbodies are normally aligned. The vertebral bodies are of normal height. Thereis mild disc space narrowing throughout the lumbar spine with mild endplate spurring. There are moderate degenerative changes of the facet joints. Overall, there has been no significant interval change. > Interpreting Provider: Julio C Light MD on 05/28/2025 1:08 PM Yandel Petersen MD DIAGNOSTIC IMAGING ORD ERABLES Final Result * (ABNORMAL) COMPREHENSIVE METABOLIC PANEL (09/17/2024 12:09 PM BODY CORPORATE MANAGER) BUN 17 7 - 26 mg/dL 09/17/2024 1:09 PM BODY CORPORATE MANAGER [facility] Creatinine 1.03(H) 0.56 - 0.96 [...] Lab Venipuncture / Unknown 09/17/2024 12:09 PM [facility] 09/17/2024 12:29 PM BODY CORPORATE MANAGER Ev Lowery MD LAB - CHEMISTRY ORDERABLES Fi nal Result Performing Organization Address [facility]/ZIP Co de Phone Number [facility] [address] [place] [address], [facility] [phone] * HIV-1 HIV-2 ANTIBODY + HIV P24 AG PANEL (10/12/2017 4:43 AM BODY CORPORATE MANAGER) [facility] HIV1/2 Ab + P24 Ag Non Reactive Non Reactive 10/12/2017 11:04 AM BODY CORPORATE MANAGER [facility] Blood BLOOD SPECIMEN / Unknown Venipuncture / Unknown 10/12/2017 4:43 AM BODY CORPORATE MANAGER 10/12/2017 4:57 AM BODY CORPORATE MANAGER Narrative [facility] - 10/12/2017 11:04 AM BODY CORPORATE MANAGER No Laboratory evidence of HIV infection. Result [facility] Singh Moyer MD LAB - CHEMISTRY ORDERAB LES Final Result Performing Organization Address [facility] Co de Phone Number [facility] [address] [place] [address] * HEPATITIS C ANTIBODY (12/27/2015 5:08 PM CDT) [facility] Hepatitis C Antibody Non-react [facility] Comment: Hepatitis C Antibody screen indicates [...] ORDERABLES Fi nal Result Performing Organization Address [facility]/ZIP Co de Phone Number [facility] [address] [place] [address], [facility] [phone] from Last 3 Months or Most Recently Relevant to Health Maintenance Insurance [facility] Advance Directives * Full Code (Latest Code [...] 8:14 PM 04/27/2022 6:26 PM Care Teams Machine Shop Apprentice Relationship Specialty Start Date End Date Key Tolliver MD [address] [place], [place] [id number] PCP - General 10/22/18 Pablo Liriano MD [address] [place] [address] [phone] Orthopedic Surgery 05/22/19 Evan Willis MD [address] [place] [phone] Medical Oncologist Medical Oncology 11/02/21 Charles Kingston MD [facility] [address] [address] Tank House Supervisor Cardiology 11/03/21
--- OUTSIDE RECORDS SUMMARY | 2025-06-15 15:38 | XMS_ITS | Encounter Summary ---
Author Organization [facility] Address [address] [place] [address] Care Team Providers Care Asset Protection Assistant Name Role Phone Key Tolliver MD Primary Care Provider [phone] Reason for Visit * Reason Comments Medication Refill Encounter Details Date Type Department Care Team ([facility] Contact Info) Description 11/20/2021 [facility] [id number] [place] [address] Rodolfo Truong MD [address] [place], [place] [id number] Social History Tobacco Use Types Packs/Day Years Used Date Smoking Tobacco: Never Smokeless Tobacco: Never Alcohol Use Standard Drinks/Week Comments No 0 (1 standard drink = 0.6 oz pur e alcohol) Comments No Sex and Gender Information Value Date Recorded Sex Assigned at Not on file Legal Sex Female 1:52 PM STEEL RULE DIE MAKER APPRENTICE Gender Identity Not on file Sexual Orientation Not on file documented as of this encounter Plan of Treatment Upcoming Encounters Date Type Department Care Team ([facility] Contact Info) Description 06/25/2025 2:00 PM CDT Office Visit [facility] Oncology and Hematology - [place] [address] [place] [address] [facility] [address] [place] [address] Evan Willis MD [address] [facility] [address] [place] [address] 08/17/2025 1:00 PM STEEL RULE DIE MAKER APPRENTICE Office Visit [facility] Plastic Surgery at the [facility] [address] [place] [address] Rodolfo Truong MD [address] [facility] [address] [place] [address] documented as of this encounter Visit Diagnoses Not on filedocumented in this encounter Care Teams Asset Protection Assistant Relationship Specialty [place] [address] [place] [address] PCP - General Internal Medicine 11/05/18 documented as of this encounter
--- OUTSIDE RECORDS SUMMARY | 2025-06-15 15:38 | XMS_ITS | Patient Health Record ---
Author Organization [facility] As [facility]ew[facility] Address [address] [facility] [address] [place] [address] Care Team Providers Care Assistant Executive Housekeeper Name Role Phone Kate Burgos Unavailable [phone] Reason For Referral No Information Medications Medication SIG (Take, Route, Frequency, Duration) Notes Start Date End Date Status QUEtiapine Fumarate 100 MG Tablet Oral Active SEROquel 50 MG Tablet Oral Active Cyclobenzaprine HCl 10 MG Tablet Oral Active Metoprolol Tartrate 100 MG Tablet Oral Active Lidocaine 5% Patch External A ctive Ondansetron HCl 4 MG Tablet Oral Active Baclofen 10 MG Tablet Oral Active Lisinopril 10 MG Tablet Oral Active Amitriptyline HCl 10 MG Tablet Oral Active Cymbalta 30 MG Capsule Delayed Release Particles Oral Active Sulfamethoxazole-Trimet hoprim 800-160 MG Tablet Oral Active Gabapentin 100 MG Capsule Oral Active ALPRAZolam 0.5 MG Tablet Oral Active traZODone HCl 50 MG Tablet Oral Active DULoxetine HCl 30 MG Capsule Delayed Release Particles Oral Active Omeprazole 40 MG Capsule Delayed Release Oral Acti ve HYDROCODONE 10 MG-ACETAMINOPHEN 325 MG/15 ML (15 ML) ORAL SOLUTION *Reorder from shopandsave for eRx and Interaction Alerts* Active Dicyclomine HCl 20 MG Tablet Oral Active SEROquel 100 MG Tablet Oral Active Ferrous Sulfate 325 (65 Fe) MG Tablet Oral Active Plan Of Treatment No Information
--- OUTSIDE RECORDS SUMMARY | 2025-06-15 15:38 | XMS_ITS | Encounter Summary ---
Author Organization [facility] Healthcare Address [address] [place], [place] [id number] Care Team Providers Care Blood Bank Calendar Control Clerk Name Role Phone Key Tolliver MD Primary Care Provider Reason for Visit * Reason Onset Date Comments Test Results 06/09/2025 Results MRI Brai n and EEG Encounter Details Date Type Department Care Team ([facility] Contact Info) Description 06/09/2025 Results Follow-Up [facility] Neurology [address] [place] [phone] Peggy Reid MA EEG Social History Tobacco Use Types Packs/Day Years Used Date Smoking Tobacco: Never Smokeless Tobacco: Never Personal Safety Answer Date Recorded Have you ever been in or are you currently in a harmful physical or emotional relationship or is someone making you feel afraid or unsafe? Denies 06/11/2025 Comments Unknown Sex and Gender Information Value Date Recorded Sex Assigned at Not on file Legal Sex Female 6:25 PM PATTERN SETTER Gender Identity Not on file Sexual Orientation Not on file documented as of this encounter Miscellaneous Notes * Telephone Encounter - Peggy Reid MA - 06/09/2025 10:07 AM CDT Patient was give her results as follows. Please let her/son know that MRI brain is overall normal. EEG is normal and during the test, it captures her typical episode of speech disturbances and thereis no evidence of seizure or brain wave abnormality during the event. Thus the episode she was having is not related to seizure or neurological disorder and likely attributed from her underlying psychiatric comorbidity. Advise to continue follow up with psychiatrist. Patient stated that she will be seeing her Psych. Doctor in 3 months. * Telephone Encounter - Peggy Reid MA - 06/09/2025 10:06 AM CDT ----- Message from Linden Walter MD sent at 06/09/2025 9:47 AM CDT ----- Please let her/son know that MRI brain is overall normal. EEG is normal and during the test, it captures her typical episode of speech disturbances and thereis no evidence of seizure or brain wave abnormality during the event. Thus the episode she was having is not related to seizure or neurological disorder and likely attributed from her underlying psychiatric comorbidity. Advise to continue follow up with psychiatrist. ----- Message ----- From: Pasha Law MD Sent: 06/08/2025 4:32 PM CDT To: Linden Walter MD documented in this encounter Plan of Treatment Not on file documented as of this encounter Visit Diagnoses Not on filedocumented in this encounter Care Teams Blood Bank Calendar Control Clerk Relationship Specialty [place] [address] [place] [address] PCP - General Internal Medicine 12/08/24 documented as of this encounter
--- OUTSIDE RECORDS SUMMARY | 2025-06-15 15:38 | XMS_ITS | Encounter Summary ---
Author Organization [facility] Address [address] [place] [address] Care Team Providers Care Script Reader Name Role Phone Key Tolliver MD Primary Care Provider [phone] Reason for Visit * Reason Comments Medication Refill Encounter Details Date Type Department Care Team ([facility] Contact Info) Description 05/11/2020 [facility] [id number] [facility] [address] [place] [address] Rodolfo Truong MD [address] [facility] [address] [place] [address] Malignant neoplasm of upper-outer quadrant [...] on file 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 [address] [place] [id number] Rodolfo Truong MD [address] [facility] [address] [place], [place] [id number] documented as of this encounter Visit Diagnoses Diagnosis Malignant neoplasm of upper-outer quadrant of left breast in female, estrogen receptor positive (CMS/HCC) documented in this encounter Care Teams Script Reader Relationship Specialty Start Date End Date Key Tolliver MD [address] [place] [address] PCP - General Internal Medicine 11/05/18 documented as of this encounter
--- OUTSIDE RECORDS SUMMARY | 2025-06-15 15:38 | XMS_ITS ---
Author Organization [facility] Address [address] [place] [address] Care Team Providers Care Classics Professor Name Role Phone Key Tolliver MD Primary Care Provider Pablo Liriano MD Unavailable Evan Willis MD Unavailable [phone] Charles Kingston MD Unavailable Active Problems [...] hyperlipidemia 03/30/2021 Atherosclerotic heart diseas e of [place] coronary artery without angina pectoris 03/30/2021 Chest [...]
--- OUTSIDE RECORDS SUMMARY | 2025-06-15 15:38 | XMS_ITS | Clinical Summary ---
Author Organization [facility] Address [address] [place] [address] Care Team Providers Care Postpartum Nurse Name Role Phone Unavailable Primary Care Provider Unavailabl e Allergies Active Allergy Reactions Criticality Noted Date Comments Tape Rash Low 09/12/2016 Medications anastrozole 1 MG tablet TAKE 1 TABLET(1 MG) BY MOUTH DAILY 7 Active cholecalciferol (D3-50) 63426 units capsule Take 100,000 Units by mouth [...] A MEAL 8 Active multi vitamin/mineral s (VITAMINS/MECHANICAL TECHNOLOGIST ALS) tablet Take 1 tablet by mouth. [...] Comments Blood Pressure 146/90 08/01/2018 1:[address] JUDGE Pulse 89 08/01/2018 1:[address] JUDGE Temperature 36.6 C (97.9 F) 08/01/2018 1:[address] JUDGE Respiratory Rate 20 08/01/2018 1:[address] JUDGE Oxygen Saturation 100% 08/01/2018 1:[address] JUDGE Inhaled Oxygen Concentration - - Weight 88 kg (194 lb) 08/01/2018 1:[address] JUDGE Height 167.6 cm (5' 6) 08/01/2018 1:[address] JUDGE Body Mass Index 31.31 08/01/2018 1:[address] JUDGE Plan of Treatment Health Maintenance Due Date Last Done Comments Colorectal Cancer Screening Colonoscopy (10 Years) 1969 Annual Physical 1972 Hepatitis C 1987 Hepatitis B Vaccines (1 of 3 - 19+ 3-dose series) 1988 Mammogram Screening 2009 Pneumococcal Vaccine: 50+ Years (1 of 1 - PCV) 2019 Zoster Vaccines (1 of 2) 2019 COVID-19 Vaccine (1 - 2023-2 5 season) 2025 Influenza Adult (#1) 2025 05/15/2018, 07/20/2017 DTaP, Tdap and Td Vaccines [...] patient's age to complete this topic [place] [address] [place] [address]
--- OUTSIDE RECORDS SUMMARY | 2025-06-15 15:38 | XMS_ITS | Clinical Summary ---
Author Organization [facility] Address [address] [place] [address] Care Team Providers Care Supervisor Feed House Name Role Phone Key Tolliver MD Primary Care Provider Allergies Active Allergy Reactions Criticality Noted Date Comments Hydromorphone Itching Medium Reaction: ITCHING Morphine Itching High Reaction: ITCHING Medications ferrous sulfate 325 mg (65 mg of elemental iron) tabletIndication s:Iron Deficiency Anemia Take 1 tablet (65 mg [...] HOURS NEEDED Active losartan (COZAAR) 25 mg tabletIndication s:Essential hypertension Take 1 tablet (25 mg total) by mouth daily 90 tablet 3 5 04/13/20 26 Active ketorolac (TORADOL) 10 mg tablet Take 1 tablet (10 mg total) by mouth every 6 (six) hours as needed for pain 20 tablet 5 Active lidocaine (LIDODERM) 5 %Indications:Lucero n Place 1 patch on the skin daily for 12 hours Use patch for 12 hours on, 12 hours off. Discard after each use 7 patch 5 Active cyclobenzaprine (FLEXERIL) 10 mg tablet Take 1 tablet (10 mg total) by mouth 3 (three) times a day as needed for muscle spasms for up to 30 doses 30 tablet [address] (VOLTAREN) 75 mg EC tablet Take 1 tablet (75 mg total) by mouth 2 (two) times a day as needed for pain 60 tablet 5 06/11/20 25 Discontin ued(Alter samuel therapy) Active Problems Problem Noted Date Diagnosed Date Altered mental status 06/08/2025 Essential hypertension 12/08/2024 BAEZ (dyspnea on exertion) 12/08/2024 Hypercholesteremia 12/08/2024 Severe obesity 12/08/2024 Encounters Date Type Department Care Team Description 06/11/2025 4:25 PM CDT - 06/11/2025 4:42 PM CDT Emergency [facility] Emergency Department [address] [place] [address] Fall, 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Primary Dx); Acute right-sided low back pain with right-sided sciatica; Sprain of left ankle, unspecified ligament, initial encounter Discharge Disposition: Discharge to home or self care 06/09/2025 Results Follow-Up [facility] Neurology [address] [place] [phone] Peggy Reid MA EEG 06/08/2025 2:28 PM CDT - 06/08/2025 11:59 PM CDT Hospital Encounter [facility] MRI [address] [place] [address] Altered mental status, unspecified altered mental status type Discharge Disposition: Discharge to home or self care 06/08/2025 1:13 PM CDT - 06/08/2025 11:59 PM CDT Hospital Encounter [facility] Cardiac Testing [address] [place] [address] Altered mental status, unspecified altered mental status type Discharge Disposition: Discharge to home or self care 05/27/2025 Telephone [facility] Neurology [address] [place] [phone] Linden Walter Si, MD Scheduling Appointments (CALL SCHEDULING ) 05/26/2025 1:30 PM CDT Office Visit [facility] Neurology [address] [place] [phone] Linden Walter Si, MD Altered mental status, unspecified altered mental status type (Primary Dx); Stuttering 05/14/2025 2:33 PM CDT - 05/14/2025 11:59 PM CDT Hospital Encounter [facility] [address] [place] [phone] Discharge Disposition: Discharge to home or self care 05/14/2025 2:33 PM CDT - 05/14/2025 11:59 PM CDT Hospital Encounter [facility] [address] [place] [phone] Discharge Disposition: Discharge to home or self care 05/14/2025 2:00 PM CDT Office Visit [facility] Orthopedics and Sports Medicine at [address] [phone] Jace Muller MD Pain in left foot (Primary Dx); Peroneal tendonitis of left lower leg 04/13/2025 12:00 PM CDT Office Visit [facility] Cardiology [address] [place] [address] Marialuisa Anglin MD Essential hypertension (Primary Dx); BAEZ (dyspnea on exertion); Hypercholesteremia 03/26/2025 Telephone [facility] Neurology [address] [facility] [address] [place] [address] Provider, MD Viktor Scheduling Appointments (REFERRAL [...] Tobacco: Never Tobacco Cessation:Counseling Given: Not Answered Personal Safety Answer Date Recorded Have you ever been in or are you currently in a harmful physical or emotional relationship or is someone making you feel afraid or unsafe? Denies 06/11/2025 Comments Unknown Sex and Gender Information Value Date Recorded Sex Assigned at Not on file Legal Sex Female 6:[address] [employer] Gender Identity Not on file Sexual Orientation Not on file Obstetrics History Last Filed Vital Signs Vital Sign Reading Time Taken Comments Blood Pressure 157/75 06/11/2025 4:42 PM CDT Pulse 80 06/11/2025 4:42 PM CDT Temperature 36.3 C (97.4 F) 06/11/2025 3:16 PM CDT Respiratory Rate 18 06/11/2025 4:42 PM CDT Oxygen Saturation 98% 06/11/2025 4:42 PM CDT Inhaled Oxygen Concentration - - Weight 104.3 kg (230 lb) 05/26/2025 1:38 PM CDT Height 165.1 cm (5' 5) 05/26/2025 1:38 PM CDT Body Mass Index 38.27 05/26/2025 1:38 PM CDT Plan of Treatment Health Maintenance Due Date Last Done Comments Cervical Cancer Screening 1970 Depression Screening 1970 Hepatitis C Screening 1970 Hepatitis B Screening 1987 Regular Well Visit/Exam 18-64 1987 Breast Cancer Screening-Mammogram 05/07/2014 013 Zoster Vaccine (1 of 2) 2019 Colon Cancer Screening-Colonoscopy 06/23/2021 06/23/2011 Covid-19 Vaccine (4 - 2024-2 6 season) 2025 08/03/2021, 12/25/2020, 12/02/2020 Influenza Vaccine (#1) 2025 4, 08/22/2023, 08/23/2022, Additional history exists DTaP/Tdap/Td Vaccine (3 - Td or Tdap) 09/11/2027 09/11/2017, 09/04/2016 Colon Cancer Screening-CT Colonography Discontinued 06/23/2011 Colon Cancer Screening-DNA Stool Discontinued 06/23/20 11 Colon Cancer Screening-FIT Discontinued 06/23/2011 Colon Cancer Screening-Sigmoidoscopy Discontinued 06/23/2011 Pneumococcal vaccine <65 Completed 08/22/2023 Procedures Procedure Name Priority Date/Time Associated Diagnosis Comments CT LUMBAR SPINE WO CONTRAST ED 06/11/2025 4:04 PM CDT XR ANKLE LEFT 3 OR MORE VIEWS ED 06/11/2025 3:53 PM CDT MRI BRAIN WO CONTRAST Schedule Routine, Read Routine (OP Routine) 06/08/2025 3:02 PM CDT Altered mental status, unspecified altered mental status type EEG Routine 06/08/2025 2:03 PM CDT Altered mental status, unspecified altered mental status type XR FOOT LEFT 3 OR MORE VIEWS Schedule Routine, Read Routine (OP Routine) 05/14/2025 2:59 PM CDT Pain in left foot XR CALCANEUS LEFT 2 OR MORE VIEWS Schedule Routine, Read Routine (OP Routine) 05/14/2025 2:59 PM CDT Pain in left foot SCREENING MAMMOGRAM W SHA Routine 05/07/2013 1:59 PM CDT COLONOSCOPY 06/23/2011 12:00 AM CDT from Last 3 Months or Most Recently Relevant to Health Maintenance Results * CT Lumbar Spine WO Contrast (06/11/2025 4:04 PM CDT) Anatomical Region Laterality Modality Spine N/A Computed Tomogra phy 06/11/2025 4:11 PM CDT Narrative 06/11/2025 4:15 PM CDT EXAM DESCRIPTION: CT LUMBAR SPINE WO CONTRAST REASON FOR STUDY: Persistent right lower back pain and left ankle swelling since fall from unspecified height 2 weeks ago. No provided history of radiculopathy. No provided past medical or surgical history. TECHNIQUE: Axial images acquired through the lumbar spine without intravenous contrast. Reconstructed coronal and sagittal MPR images reviewed. All images stored on PACS. Automated exposure control was used as a dose optimization technique for this examination. COMPARISON: No prior imaging of the lumbar spine available at time of interpretation. FINDINGS: SEGMENTATION: No lumbosacral transitional anatomy. The lowest fully formed intervertebral disc level is labeled L5-S1. ALIGNMENT: Normal. VERTEBRAE: No acute fracture. Vertebral body heights maintained. Spondylosis. DISC HEIGHT: Multilevel variable loss of intervertebral disc height; vacuum disc phenomenon at L5-S1. HARDWARE: None in the lumbar spine. INDIVIDUAL DISC LEVELS: No osseous spinal canal stenosis. Multilevel variable osseous neural foraminal stenosis, maximal at left L5-S1. VISUALIZED RIBS: No acute fracture. SOFT TISSUES: No acute abnormality. OTHER: No other significant finding. IMPRESSION: No acute fracture or subluxation of the lumbar spine with spondylosis and degenerative disc disease. THIS IS AN ELECTRONICALLY VERIFIED FINAL REPORT 06/11/2025 4:15 PM - Electronically signed by Naveen Dash M.D. WILY: WILY Report ID: [id number] Reading Location: [id number] Procedure Note Naveen Dash MD - 06/11/2025 EXAM DESCRIPTION: CT LUMBAR SPINE WO CONTRAST REASON FOR STUDY: Persistent right lower back pain and left ankle swelling since fall from unspecified height 2 weeks ago. No provided history of radiculopathy. No provided past medical or surgical history. TECHNIQUE: Axial images acquired through the lumbar spine withoutintravenous contrast. Reconstructed coronal and sagittal MPR images reviewed. Allimages stored on PACS. Automated exposure control was used as a dose optimization technique forthis examination. COMPARISON: No prior imaging of the lumbar spine available at time of interpretation. FINDINGS: SEGMENTATION: No lumbosacral transitional anatomy. The lowest fullyformed intervertebral disc level is labeled L5-S1. ALIGNMENT: Normal. VERTEBRAE: No acute fracture. Vertebral body heights maintained. Spondylosis. DISC HEIGHT: Multilevel variable loss of intervertebral disc height;vacuum disc phenomenon at L5-S1. HARDWARE: None in the lumbar spine. INDIVIDUAL DISC LEVELS: No osseous spinal canal stenosis. Multilevel variable osseous neural foraminal stenosis, maximal at left L5-S1. VISUALIZED RIBS: No acute fracture. SOFT TISSUES: No acute abnormality. OTHER: No other significant finding. IMPRESSION: No acute fracture or subluxation of the lumbar spine with spondylosisand degenerative disc disease. THIS IS AN ELECTRONICALLY VERIFIED FINAL REPORT 06/11/2025 4:15 PM - Electronically signed by Naveen Dash M.D. WILY: WILY Report ID: [id number] Reading Location: [id number] Rashawn Cloud NP IM CT PROCEDURES Final Result * XR Ankle Left 3 or More Views (06/11/2025 3:53 PM CDT) Anatomical Region Laterality Modality Lower Extremities, Ankle Left Compute d Radiography 06/11/2025 3:5 7 PM CDT Narrative 06/11/2025 4:02 PM CDT EXAM DESCRIPTION: XR ANKLE LEFT 3 OR MORE VIEWS REASON FOR STUDY: pain Pt to ED via POV. Per Pt she fell 2 weeks ago and has had continued pain to her right lumbar down to her right leg. Pt reports swelling to her left ankle swelling since the fall as well TECHNIQUE: 3 radiographic view(s) of the left ankle . COMPARISON: 05/14/2025 FINDINGS: Stable internal fixation of the foot. No perihardware lucency. No acute fracture or malalignment. Ankle mortise is normal. Soft tissues are unremarkable. IMPRESSION: No acute osseous abnormality. THIS IS AN ELECTRONICALLY VERIFIED FINAL REPORT 06/11/2025 4:02 PM - Electronically signed by Jose Chan M.D. KR: JAKE Report ID: [id number] Reading Location: [id number] Procedure Note Jose Chan MD - 06/11/2025 EXAM DESCRIPTION: XR ANKLE LEFT 3 OR MORE VIEWS REASON FOR STUDY: pain Pt to ED via POV. Per Pt she fell 2 weeks ago and has had continued painto her right lumbar down to her right leg. Pt reports swelling to her leftankle swelling since the fall as well TECHNIQUE: 3 radiographic view(s) of the left ankle . COMPARISON: 05/14/2025 FINDINGS: Stable internal fixation of the foot. No perihardware lucency. No acute fracture or malalignment. Ankle mortise is normal. Soft tissues are unremarkable. IMPRESSION: No acute osseous abnormality. THIS IS AN ELECTRONICALLY VERIFIED FINAL REPORT 06/11/2025 4:02 PM - Electronically signed by Jose Chan M.D. KR: JAKE Report ID: [id number] Reading Location: [id number] us Rashawn Cloud EMPLOYMENT LEGAL ASSISTANT IMG XR PROCEDURES Final Result * MRI Brain WO Contrast (06/08/2025 3:02 PM CDT) Anatomical Region Laterality Modality Head and Neck N/A Magnetic Resonan ce 06/08/2025 9:01 PM CDT Narrative 06/08/2025 9:10 PM CDT EXAM DESCRIPTION: MRI BRAIN WO CONTRAST REASON FOR STUDY: Mental status change, unknown cause Pt is having episodes of dementia and acting like she is a child for past few months. PT doesn't recall episodes. They are per her daughter TECHNIQUE: Multiplanar imaging includes non-contrasted T1, T2, FLAIR, and diffusion with ADC map sequences. Additional sequence(s) sensitive to blood products. Images stored on PACS. COMPARISON: None available. FINDINGS: CEREBRUM: No hemorrhage, edema, or mass effect. WHITE MATTER: Normal. POSTERIOR FOSSA: Brainstem and cerebellum appear unremarkable. DIFFUSION IMAGING: No recent infarction. EXTRAAXIAL SPACES: No hemorrhage. No mass. BRAIN VOLUME: Within normal limits for age. PITUITARY: Unremarkable. VASCULATURE: No flow disturbance identified. ORBITS: No masses. Globes normal. PARANASAL SINUSES AND MASTOIDS: Well-aerated with no fluid levels. No mucosa thickening. OTHER: No other significant finding. IMPRESSION: No acute intracranial abnormality. Unremarkable MRI of the brain without contrast. THIS IS AN ELECTRONICALLY VERIFIED FINAL REPORT 06/08/2025 9:10 PM - Electronically signed by Rodolfo Tapia M.D. T: Report ID: [id number] Reading Location: [id number] Procedure Note Rodolfo Tapia, DO - 06/08/2025 EXAM DESCRIPTION: MRI BRAIN WO CONTRAST REASON FOR STUDY: Mental status change, unknown cause Pt is having episodes of dementia and acting like she is a child for pastfew months. PT doesn't recall episodes. They are per her daughter TECHNIQUE: Multiplanar imaging includes non-contrasted T1, T2, FLAIR, and diffusion with ADC map sequences. Additional sequence(s) sensitive toblood products. Images stored on PACS. COMPARISON: None available. FINDINGS: CEREBRUM: No hemorrhage, edema, or mass effect. WHITE MATTER: Normal. POSTERIOR FOSSA: Brainstem and cerebellum appear unremarkable. DIFFUSION IMAGING: No recent infarction. EXTRAAXIAL SPACES: No hemorrhage. No mass. BRAIN VOLUME: Within normal limits for age. PITUITARY: Unremarkable. VASCULATURE: No flow disturbance identified. ORBITS: No masses. Globes normal. PARANASAL SINUSES AND MASTOIDS: Well-aerated with no fluid levels. Nomucosa thickening. OTHER: No other significant finding. IMPRESSION: No acute intracranial abnormality. Unremarkable MRI of thebrain without contrast. THIS IS AN ELECTRONICALLY VERIFIED FINAL REPORT 06/08/2025 9:10 PM - Electronically signed by Rodolfo Tapia M.D. T: Report ID: [id number] Reading Location: [place] [address] Linden Walter MD IMG MRI PROCEDURES Final Result * EEG (06/08/2025 2:03 PM CDT) Anatomical Region Laterality Modality EEG Narrative 06/08/2025 1:30 PM CDT Pasha Law MD 06/08/2025 4:29 PM Reason for exam: transient episodes of altered awareness Technical: This is a digitally recorded electroencephalogram. It was just over 28 minutes long. The international 10-20 electrode placement system is used for scalp electrode placement. Eighteen channels of scalp EEG are recorded. One channel was used for EOG. Another channel was used for ECG. The data are stored digitally and reviewed in reformatted montages for optimal display. Background: 8-9 hertz alpha background activity was seen. Maximal over the posterior head region. These activities are symmetric on both sides. They attenuated with eye opening. Shortly after photic finished patient had 1 of her typical episodes per description. She appeared confused, was wringing her hands together, then began making sounds, followed by reciting her ABCs and repeating that she knows her ABCs. This lasted about 5 minutes. She had normal awake EEG throughout the event without any abnormal correlate. She then appeared to come out of the episode and was back to baseline, denies recall of the event. Description: No focal slowing was seen. Patient entered into periods of drowsiness. Hyperventilation was not performed due to patient's clinical condition. Photic stimulation was performed without any additional abnormalities. Impression: Normal EEG. Patient had 1 of her typical spells, and there was no electrographic correlate. No focal slowing, no seizure like activity was observed. Correlation with clinical findings is needed. us Linden Walter MD NEUROLOGY ORDERABLES Final Resul t * XR Foot Left 3 or More [...] Vivian l Result * Screening Mammogram W Sha (05/07/2013 1:59 PM CDT) Anatomical Region Laterality Modality Breast N/A Mammography 05/07/2013 1:59 PM CDT Narrative 05/08/2013 12:19 PM CDT YUNG MONAHAN M.D. BEATA MARINELLI M.D. FINAL REPORT The radiology attending physician has personally reviewed this study, and has reviewed and/or edited this written report and agrees with it. ACC# Date Time Exam [id number] May 07, 2013 13:59:00 [facility] [id number] Bilateral Tomosynthesis Technologist(s): Ashley Batista; ; [id number] May 07, 2013 13:59:00 [facility] [id number] Diag Mammogram Bilateral Technologist(s): Ashley Batista; ; [id number] May 07, 2013 14:24:00 [facility] [id number] Sono Breast (Unilateral) L EXAMINATION: BILATERAL FULL [...] diagnostic mammogram and accompanying ultrasound performed at [facility] on 04/28/2013. BREAST PARENCHYMAL COMPOSITION: Heterogeneously dense, [...] has been scheduled to return to the [facility] for an ultrasound-guided core needle biopsy of [...] agrees with it. ACC# Date Time Exam [id number] May 07, 2013 13:59:00 [facility] [id number] Bilateral Tomosynthesis Technologist(s): Ashley Batista; ; [id number] May 07, 2013 13:59:00 [facility] [id number] Diag Mammogram Bilateral Technologist(s): Ashley Batista; ; [id number] May 07, 2013 14:24:00 [facility] [id number] Sono Breast (Unilateral) L EXAMINATION: BILATERAL FULL [...] diagnostic mammogram and accompanying ultrasound performed at [facility] [place] on 04/28/2013. BREAST PARENCHYMAL COMPOSITION: Heterogeneously dense, [...] has been scheduled to return to the [facility] for an ultrasound-guided core needle biopsy of [...] MONAHAN M.D. on May 08 2013 12:19P Historical Provider MD ESTEVEZ MAMMO PROCEDURES Vivian l Result * COLONOSCOPY (06/23/2011 12:00 AM CDT) Anatomical Region Laterality Modality Other Narrative 06/23/2011 12:00 AM CDT Ordered by an unspecified provider. Procedure Note Provider, MD Viktor - 06/23/2011 12:00 AM CDT PROCEDURE REPORT Patient: CHELA MCNULTY Account: [id number] Room No: 2619-01 : 1970 Patient Type: [...] 4. Follow clinical progress. Glen Huddleston M.D. BABAR/nicci TD: 06/23/2011 15:33 PROCEDURE REPORT Authenticated by Glen Huddleston MD On 07/04/2011 12:56:13 PM Historical Provider ENDOSCOPY PROCEDURES Vivian l Result from Last 3 Months or Most Recently Relevant to Health Maintenance Insurance [facility] Care Teams Supervisor Feed House Relationship Specialty Start Date End Date Key Tolliver MD [address] [place] [id number] PCP - General Internal Medicine 12/08/24
--- OUTSIDE RECORDS SUMMARY | 2025-06-15 15:38 | XMS_ITS | Encounter Summary ---
Author Organization [facility] Address [address] [place] [address] Care Team Providers Care Client Executive Name Role Phone Key Tolliver MD Primary Care Provider [phone] Reason for Visit * Reason Comments Medication Refill Encounter Details Date Type Department Care Team ([facility] Contact Info) Description 11/05/2019 Refill [facility] Plastic Surgery and Burn [address] [address] Rodolfo Truong MD [address] [facility] [address] [place] [address] Social History Tobacco Use Types Packs/Day Years Used Date Smoking Tobacco: Never Smokeless Tobacco: Never Alcohol Use Standard Drinks/Week Comments No 0 (1 standard drink = 0.6 oz pur e alcohol) Comments No Sex and Gender Information Value Date Recorded Sex Assigned at Not on file Legal Sex Female 1:52 PM [employer] CONT[employer] DEVEL[employer] Gender Identity Not on file Sexual Orientation Not on file documented as of this encounter Plan of Treatment Upcoming Encounters Date Type Department Care Team ([facility] Contact Info) Description 06/25/2025 2:00 PM CDT Office Visit [facility] Oncology and Hematology - [place] [address] [facility] [address] [place] [address] Evan Willis MD [address] [facility] [address] [place] [address] 08/17/2025 1:00 PM WEB CONTENT DEVELOPER Office Visit [facility] Plastic Surgery at the [facility] [address] [facility] [address] [place] [address] Rodolfo Truong MD [address] [facility] [address] [place] [address] documented as of this encounter Visit Diagnoses Not on filedocumented in this encounter Care Teams Client Executive Relationship Specialty Start Date End Date Key Tolliver MD [address] [place] [address] PCP - General Internal Medicine 11/05/18 documented as of this encounter
== END 2025-06-15 14:36 | disposition home or self-care (01) ==
PROVIDERS: PCP Internal Medicine Infectious Disease; Visit Provider Plastic Surgery
DX: Z90.13 Acquired absence of bilateral breasts and nipples (principal); Z85.3 Personal history of malignant neoplasm of breast
CPT/HCPCS: 77049; A9577; C8908

== ENCOUNTER 2025-06-16 16:20 | Outpatient (CLI) | payer OTHER, SELFPAY ==
[2025-06-16 16:49] LABS: Hematocrit 40.5 % (37.0-47.0); Hemoglobin 13.0 g/dL (12.0-15.0); Immature Granulocyte Percent A 0.3 % (0-0.5); Lymphocytes Absolute Auto 2.74 K/mm3 (0.9-3.2); Mean Corpuscular HGB Conc 32.1 g/dl (32-36); Mean Corpuscular Hemoglobin 27.1 pg (26-34); Mean Corpuscular Volume 84.6 fl (80-100); Nucleated Red Blood Cells Absolute Auto 0.000 K/mm3 (0.0-0.012); Nucleated Red Blood Cells Perc 0.0 % (0.0-0.2); Platelet Count Result 302 k/mm3 (150-375); Red Blood Count 4.79 M/mm3 (4.2-5.4); White Blood Count 7.2 K/mm3 (4.5-10.0)
[2025-06-16 17:02] LABS: Alanine Aminotransferase 42 U/L (6-35); Albumin Level 4.3 g/dL (3.5-5.1); Alkaline Phosphatase 81 U/L (38-126); Anion Gap 9 mmol/L (4-12); Aspartate Amino Transferase 40 U/L (14-36); Bilirubin,Total 0.6 mg/dL (0.2-1.3); Blood Urea Nitrogen 14 mg/dL (7-17); Calcium 9.0 mg/dL (8.4-10.2); Carbon Dioxide 27 mmol/L (22-30); Chloride 102 mmol/L (98-107); Estimated Glomerular Filt Rate > 60; Glucose 101 mg/dL (65-110); Potassium 4.3 mmol/L (3.4-5.0); Sodium 138 mmol/L (137-145); Total Protein 8.7 g/dL (6.3-8.2)
--- OUTSIDE RECORDS SUMMARY | 2025-06-16 17:36 | XMS_ITS | Clinical Summary ---
Author Organization [facility] Address [address] [place] [address] Phone Care Team Providers Care Skull Splitter Name Role Phone LEILANI MABRY, NILESH Primary Care Provider [phone] Reason for Visit and Chief Complaint RX ISSUE/REFILL Problems Includes: Problems addressed during this encounter and other active Problems All Visits Onset Date Resolved Date Provider Condition S tatus Chronic Pain Syndrome 07/31/2023 NURY ECHAVARRIA PMHNP Active Last Documented On 3 1:32PM ; [facility] Plan of Treatment [...] On 4 2:31PM By FELISHA HERRERA-BC ; [facility] Hysingla ER 20 MG Oral Table t ER 24 Hour Abuse-Deterrent 01/21/2024 Provider: FELISHA FREEMAN ANP-BC Diagnosis: Spinal stenosis, lumbar region with neurogenic claudication 1 tablet q 24 hours Last Documented On 4 2:31PM By FELISHA SENIOR ; [facility] oxyCODONE-Acetaminophen 10-325 MG Oral Tablet 05/14/20 24 Provider: Diagnosis: Last Documented On 02/01/2024 8:52AM By Lilli MAK ; [facility] traZODone HCl 100 MG Oral Tablet 11/02/2023 Provider : Diagnosis: Last Documented On 4 10:13AM By Lilli MAK ; [facility] Cyclobenzaprine HCl 10 MG Oral Tablet 10/29/2023 Pro vider: REFUGIO AMARO MD Diagnosis: Last Documented On 4 10:15AM By Lilli MAK ; [facility] Ketoconazole 2% External Cream 10/29/2023 Provider: REFUGIO AMARO MD Diagnosis: Last Documented On 4 10:15AM By Lilli MAK ; [facility] hydrOXYzine HCl 50 MG Oral Tablet 10/26/2023 Provide r: Diagnosis: Last Documented On 4 10:16AM By Lilli MAK ; [facility] Anastrozole 1 MG Oral Tablet 10/24/2023 Provider: Diagnosis: Last Documented On 4 10:16AM By Lilli MAK ; [facility] FeroSul 325 (65 Fe) MG Oral Tablet 10/24/2023 Provid er: Diagnosis: Last Documented On 4 10:18AM By Lilli MAK ; [facility] Venlafaxine HCl ER 225 MG Oral Tablet Extended R elease 24 Hour 10/23/2023 Provider: Diagnosis: Last Documented On 4 10:18AM By Lilli MAK ; [facility] Pregabalin 200 MG Oral Capsule 10/08/2023 Provider: FELISHA SENIOR Diagnosis: Fibromyalgia TAKE 1 CAPSULE BY MOUTH TWICE DAILY Last Documented On 4 1:51PM By FELISHA SENIOR ; [facility] Omeprazole 40 MG Oral Capsule Delayed Release 08/11/20 Provider: Diagnosis: Last Documented On 4 10:17AM By Lilli MAK ; [facility] Lisinopril 40 MG Oral Tablet 04/11/2023 Provider: REFUGIO AMARO MD Diagnosis: Last Documented On 3 10:40AM By Lilli MAK ; [facility] Famotidine 20 MG Oral Tablet 01/23/2023 Provider: Diagnosis: Last Documented On 02/05/2023 4:01PM By Lilli MAK ; [facility] ARIPiprazole 2 MG Oral Tablet 01/09/2023 Provider: Diagnosis: Last Documented On 02/05/2023 4:04PM By Lilli MAK ; [facility] busPIRone HCl 15 MG Oral Tablet 09/20/2022 Provider: Diagnosis: Last Documented On 02/05/2023 4:05PM By Lilli MAK ; [facility] NIFEdipine ER 30 MG Oral Tab let Extended Release 24 Hour 05/04/2022 Provider: REFUGIO AMARO MD Diagnosis: Last Documented On 05/09/2022 3:25PM By Lilli MAK ; [facility] Metoprolol Succinate ER 200M G Oral Tablet Extended Release 24 Hour 10/03/2018 Provider: Diagnosis: Last Documented On 9 3:00PM By VENKAT MAK ; [facility] Medications Administered Includes: Administered Medications from this encounter No Administered Medications Recorded Results Includes: Results discussed during this encounter No Results Recorded For Specified Dates History of Present Illness Includes: History of Present Illness from this encounter No History of Present Illness Recorded Social History Description Last Updated Tobacco non-user 11/07/2023 Last Documented On 4 2:03PM ; [facility] Alcohol 07/31/2023 Last Documented On 4 2:03PM ; [facility] Consuming 5 or more drinks per day None 07/31/2023 Last Documented On 4 2:03PM ; [facility] Current nonsmoker 07/31/2023 Last Documented On 4 2:03PM ; [facility] Drug use 07/31/2023 Last Documented On 4 2:03PM ; [facility] Lives with spouse 07/31/2023 Last Documented On 4 2:03PM ; [facility] Non-smoker 07/31/2023 Last Documented On 4 2:03PM ; [facility] Number of times used recreat ional drug/ prescription drug for nonmedical reason. None 07/31/2023 Last Documented On 4 2:03PM ; [facility] Smoking status : Never smoker 08/07/2019 Last Documented On 4 2:03PM ; [facility] Currently 10/03/2018 Last Documented On 4 2:03PM ; [facility] Medical History Includes: Medical History addressed during this encounter Description Last Updated Reviewed and Unchanged 10/10/2019 Last Documented On 4 2:03PM ; [facility] Currently wearing eyeglasses 10/03/2018 Last Documented On 4 2:03PM ; [facility] Previously 3 time(s) 10/03/2018 Last Documented On 4 2:03PM ; [facility] History of arthritis 10/03/2018 Last Documented On 4 2:03PM ; [facility] History of cancer 10/03/2018 Last Documented On 4 2:03PM ; [facility] History of hypertension 10/03/2018 Last Documented On 4 2:03PM ; [facility] Family History Includes: Family [...] Date Resolved Date Statu s Adhesive Tape 1x5yd Allergy 07/31/2023 Active Last Documented On 4 8:53AM ; [facility] Encounters Encounter Provider Location Date Check-In Time Check-Out Time Diagnosis RX ISSUE/REFILL FELISHA HERRERA-TAMIKO 12/14/2023 2:04PM 11:59PM Insurance Includes: Active Insurance Policies Plan Name Member ID Group # Subscriber Relationship Effect nieves Dates 1 - [facility] [id number] KATHY Sanchez Clinical Notes Includes: Clinical Notes from this encounter * Progress note Date Encounter Last Documented by 12/14/2023 RX ISSUE/REFILL Last documented on 12/17/2023; 2:39 PM, FELISHA GIBSON ANP-; [facility] Active Problems [...] Marital: Currently . Allergies - Adhesive Tape 1x5yd Health Reminders - Assess Need for CT Lung Screen satisfied 12/14/2023. - Assess Tobacco Use satisfied 12/14/2023.
--- OUTSIDE RECORDS SUMMARY | 2025-06-16 17:36 | XMS_ITS | Clinical Summary ---
Author Organization [facility] Address [address] [place] [address] Phone Care Team Providers Care Zinc Plate Grainer Name Role Phone LEILANI MABRY, NILESH Primary Care Provider [phone] Reason for Visit and Chief Complaint The Chief Complaint is: 1 MO FU Problems Includes: Problems addressed during this encounter and other active Problems Current Visit Onset Date Resolved Date Provider Charla jones Status Chronic Pain Syndrome 07/31/2023 HARLEEN COULTER PMHNP Active Last Documented On 3 1:32PM ; [facility] Plan of Treatment Education and Decision Aids were provided during visit for: Pill Count: 25 HYSINGLA Last Documented On 4 8:54AM ; [facility] Pill Count: two HYSINGLA Last Documented On 4 9:14AM ; [facility] Pill Count: HYDROCODONE ~out of medication Last Documented On 4 9:14AM ; [facility] Assessments Includes: Assessments from this encounter Findings - Systemic lupus erythematosus [M32.9 - Systemic lupus erythematosus, unspecified] - Last Documented On 02/01/2024 9:17AM ; [facility] - Sacroiliitis [M46.1 - Sacroiliitis, not elsewhere classified] - Last Documented On 02/01/2024 9:17AM ; [facility] - Lumbar spondylosis with radiculopathy [M47.26 - Other spondylosis with radiculopathy, lumbar region] - Last Documented On 02/01/2024 9:17AM ; [facility] - Lumbar stenosis with neurogenic claudication [M48.062 - Spinal stenosis, lumbar region with neurogenic claudication] - Last Documented On 02/01/2024 9:17AM ; [facility] - Fibromyalgia [M79.7 - Fibromyalgia] - Last Documented On 02/01/2024 9:17AM ; [facility] - Chronic pain syndrome [G89.4 - Chronic pain syndrome] - Last Documented On 02/01/2024 9:17AM ; [facility] - FDC use of opiate analgesic [Z79.891 - FDC (current) use of opiate analgesic] - Last Documented On 02/01/2024 9:17AM ; [facility] Instructions Includes: Instructions from this encounter Education and Decision Aids were provided during visit for: Pill Count: 25 HYSINGLA Last Documented On 8:54AM ; [facility] Pill Count: two HYSINGLA Last Documented On 9:14AM ; [facility] Pill Count: HYDROCODONE ~out of medication Last Documented On 9:14AM ; [facility] Medical Equipment - Implanted Devices Includes: Current Devices No Medical Equipment Recorded Medications Includes: Medications discussed during this encounter and other current Medications Current Medications (continue as prescribed) Narcan 4 MG/0.1ML Nasal Liquid 01/21/2024 Provider: FELISHA SENIOR Diagnosis: Spinal stenosis, lumbar region with neurogenic claudication as directed Last Documented On 4 2:31PM By FELISHA SENIOR ; [facility] Hysingla ER 20 MG Oral Table t ER 24 Hour Abuse-Deterrent 01/21/2024 Provider: FELISHA SENIOR Diagnosis: Spinal stenosis, lumbar region with neurogenic claudication 1 tablet q 24 hours Last Documented On 4 2:31PM By FELISHA SENIOR ; [facility] oxyCODONE-Acetaminophen 10-325 MG Oral Tablet 01/15/20 Provider: Diagnosis: Last Documented On 02/01/2024 8:52AM By Lilli MAK ; [facility] traZODone HCl 100 MG Oral Tablet 11/02/2023 Provider : Diagnosis: Last Documented On 4 10:13AM By Lilli MAK ; [facility] Cyclobenzaprine HCl 10 MG Oral Tablet 10/29/2023 Pro vider: REFUGIO AMARO MD Diagnosis: Last Documented On 4 10:15AM By Lilli MAK ; [facility] Ketoconazole 2% External Cream 10/29/2023 Provider: REFUGIO AMARO MD Diagnosis: Last Documented On 4 10:15AM By Lilli MAK ; [facility] hydrOXYzine HCl 50 MG Oral Tablet 10/26/2023 Provide r: Diagnosis: Last Documented On 4 10:16AM By Lilli MAK ; [facility] Anastrozole 1 MG Oral Tablet 10/24/2023 Provider: Diagnosis: Last Documented On 4 10:16AM By Lilli MAK ; [facility] FeroSul 325 (65 Fe) MG Oral Tablet 10/24/2023 Provid er: Diagnosis: Last Documented On 4 10:18AM By Lilli MAK ; [facility] Venlafaxine HCl ER 225 MG Oral Tablet Extended R elease 24 Hour 10/23/2023 Provider: Diagnosis: Last Documented On 4 10:18AM By Lilli MAK ; [facility] Pregabalin 200 MG Oral Capsule 10/08/2023 Provider: FELISHA HERRERA- Diagnosis: Fibromyalgia TAKE 1 CAPSULE BY MOUTH TWICE DAILY Last Documented On 4 1:51PM By FELISHA SENIOR ; [facility] Omeprazole 40 MG Oral Capsule Delayed Release 08/11/20 Provider: Diagnosis: Last Documented On 4 10:17AM By Lilli MAK ; [facility] Lisinopril 40 MG Oral Tablet 04/11/2023 Provider: REFUGIO AMARO MD Diagnosis: Last Documented On 3 10:40AM By Lilli MAK ; [facility] Famotidine 20 MG Oral Tablet 01/23/2023 Provider: Diagnosis: Last Documented On 02/05/2023 4:01PM By Lilli MAK ; [facility] ARIPiprazole 2 MG Oral Tablet 01/09/2023 Provider: Diagnosis: Last Documented On 02/05/2023 4:04PM By Lilli MAK ; [facility] busPIRone HCl 15 MG Oral Tablet 09/20/2022 Provider: Diagnosis: Last Documented On 02/05/2023 4:05PM By Lilli MAK ; [facility] NIFEdipine ER 30 MG Oral Tab let Extended Release 24 Hour 05/04/2022 Provider: REFUGIO AMARO MD Diagnosis: Last Documented On 05/09/2022 3:25PM By Lilli MAK ; [facility] Metoprolol Succinate ER 200M G Oral Tablet Extended Release 24 Hour 10/03/2018 Provider: Diagnosis: Last Documented On 9 3:00PM By VENKAT MAK ; [facility] Medications Administered Includes: Administered Medications from this encounter No Administered Medications Recorded Vital Signs Includes: Vital Signs from this encounter Vital Name 02/01/2024 08:50A Temp-Oral (F) 98.6 Height (in) 65 Weight (lb) 215 Body Mass Index 35.8 Body Surface Area 2 Pain Level 8 Last Documented: On 02/01/2024 8:51AM ; [facility] Results Includes: Results discussed during this [...] and a report back to the [employer] direct marketing representative that she was getting approximate 75% [...] psychological evaluation and meeting with the [employer] direct marketing representative. Psychological evaluation revealed no barriers to [...] will need a refill of hydrocodone today. [place] [employer] appropriate. Last UDS appropriate, this will be [...] simulation trial under fluoroscopic guidance. Of note, [place] prescription monitoring database was reviewed and found [...] UDS appropriate. We will repeat this today. [facility] appropriate. She has exhibited no signs [...] allows her to maintain function levels. [place] [employer] is appropriate. UDS was appropriate Past note: [...] for visit: Provider: Privacy of provider's office. [address] [place] [id number] Patient: Patient personal setting Total time spent with patient via telecommunication 15 minutes Social History Description Last Updated Tobacco non-user 11/07/2023 Last Documented On 4 8:46AM ; [facility] Alcohol 07/31/2023 Last Documented On 4 8:46AM ; [facility] Consuming 5 or more drinks per day None 07/31/2023 Last Documented On 4 8:46AM ; [facility] Current nonsmoker 07/31/2023 Last Documented On 4 8:46AM ; [facility] Drug use 07/31/2023 Last Documented On 4 8:46AM ; [facility] Lives with spouse 07/31/2023 Last Documented On 4 8:46AM ; [facility] Non-smoker 07/31/2023 Last Documented On 4 8:46AM ; [facility] Number of times used recreat ional drug/ prescription drug for nonmedical reason. None 07/31/2023 Last Documented On 4 8:46AM ; [facility] Smoking status : Never smoker 08/07/2019 Last Documented On 4 8:46AM ; [facility] Currently 10/03/2018 Last Documented On 4 8:46AM ; [facility] Procedures and Surgical History Includes: Procedures from this encounter Procedures Code Diagnosis Performing Provider Service L ocation Service Date use of tobacco assessment performed 1000F Last Documented On 4 8:52AM ; [facility] review of medications documented 1160F Last Documented On 4 8:52AM ; [facility] Clinical summary provided to patient via portal/mailed. ~ Patient understands and agrees with treatment plan. Questions answered Last Documented On 4 9:13AM ; [facility] Medical History Includes: Medical History addressed during this encounter Description Last Updated Reviewed and Unchanged 10/10/2019 Last Documented On 4 8:46AM ; [facility] Currently wearing eyeglasses 10/03/2018 Last Documented On 4 8:46AM ; [facility] Previously 3 time(s) 10/03/2018 Last Documented On 4 8:46AM ; [facility] History of arthritis 10/03/2018 Last Documented On 4 8:46AM ; [facility] History of cancer 10/03/2018 Last Documented On 4 8:46AM ; [facility] History of hypertension 10/03/2018 Last Documented On 4 8:46AM ; [facility] Family History Includes: Family History [...] Documented On 4 8:53AM ; [facility] Encounters Encounter Provider Location Date Check-In Time Check-Out Time Diagnosis [facility] 02/01/20 24 9:00AM 9:23AM Systemic Lupus Erythematosus,Chr onic Pain Syndrome,Sacroili itis,Fibromyalgia ,Spinal Stenosis Lumbar with Neurogenic Claudication,Spon dylosis with Radiculopathy Lumbar Region,Senior Living Use of Opiate Analgesic Insurance Includes: Active Insurance Policies Plan Name Member ID Group # Subscriber Relationship Effect nieves Dates 1 - [facility] [id number] KATYH MENDENHALL Self Clinical Notes Includes: Clinical Notes from this encounter * Progress note Date Encounter Last Documented by 02/01/2024 TELEHEALTH Last documented on 02/01/2024; 9:17 AM, FELISHA SENIOR; [facility] Active Problems & Conditions - Chronic Pain [...] spinal cord summation trial using 28 contact [employer] percutaneous leads. His replacement. Guidance. Patient tolerated the procedure well. Despite multiple efforts approved reprogramming, and a report back to the [employer] direct marketing representative that she was getting approximate 75% [...] of infection. Patient will return to Essence Rothman ANP discuss medication options or any additional [...] psychological evaluation and meeting with the [employer] direct marketing representative. Psychological evaluation revealed no barriers to [...] will need a refill of hydrocodone today. [place] [employer] appropriate. Last UDS appropriate, this will be [...] simulation trial under fluoroscopic guidance. Of note, [place] prescription monitoring database was reviewed and found [...] UDS appropriate. We will repeat this today. [facility] appropriate. She has exhibited no signs [...] allows her to maintain function levels. [place] [employer] is appropriate. UDS was appropriate Past note: [...] Currently . Allergies - Adhesive Tape 1x5yd Review Of Systems Systemic: No fever and [...] syndrome [G89.4 - Chronic pain syndrome] - technician terminal and repeater use of opiate analgesic [Z79.891 - technician terminal and repeater (current) use of opiate analgesic] Therapy - [...] for visit: Provider: Privacy of provider's office. [address] [place] [id number] Patient: Patient personal setting Total time spent with patient via telecommunication 15 minutes
--- OUTSIDE RECORDS SUMMARY | 2025-06-16 17:37 | XMS_ITS | Clinical Summary ---
Author Organization [facility] Address [address] [place] [address] Phone Care Team Providers Care Asset Coordinator Name Role Phone LEILANI MABRY, NILESH Primary Care Provider [phone] Reason for Visit and Chief Complaint RX ISSUE/REFILL Problems Includes: Problems addressed during this encounter and other active Problems All Visits Onset Date Resolved Date Provider Condition S tatus Chronic Pain Syndrome 07/31/2023 NURY ECHAVARRIA PMHNP Active Last Documented On 3 1:32PM ; [facility] Plan of Treatment No Plan of [...] On 4 2:31PM By FELISHA HERRERA-BC ; [facility] Hysingla ER 20 MG Oral Table t ER 24 Hour Abuse-Deterrent 01/21/2024 Provider: FELISHA FREEMAN ANP-BC Diagnosis: Spinal stenosis, lumbar region with neurogenic claudication 1 tablet q 24 hours Last Documented On 4 2:31PM By FELISHA SENIOR ; [facility] oxyCODONE-Acetaminophen 10-325 MG Oral Tablet 05/14/20 24 Provider: Diagnosis: Last Documented On 02/01/2024 8:52AM By Lilli MAK ; [facility] traZODone HCl 100 MG Oral Tablet 11/02/2023 Provider : Diagnosis: Last Documented On 4 10:13AM By Lilli MAK ; [facility] Cyclobenzaprine HCl 10 MG Oral Tablet 10/29/2023 Pro vider: REFUGIO AMARO MD Diagnosis: Last Documented On 4 10:15AM By Lilli MAK ; [facility] Ketoconazole 2% External Cream 10/29/2023 Provider: REFUGIO AMARO MD Diagnosis: Last Documented On 4 10:15AM By Lilli MAK ; [facility] hydrOXYzine HCl 50 MG Oral Tablet 10/26/2023 Provide r: Diagnosis: Last Documented On 4 10:16AM By Lilli MAK ; [facility] Anastrozole 1 MG Oral Tablet 10/24/2023 Provider: Diagnosis: Last Documented On 4 10:16AM By Lilli MAK ; [facility] FeroSul 325 (65 Fe) MG Oral Tablet 10/24/2023 Provid er: Diagnosis: Last Documented On 4 10:18AM By Lilli MAK ; [facility] Venlafaxine HCl ER 225 MG Oral Tablet Extended R elease 24 Hour 10/23/2023 Provider: Diagnosis: Last Documented On 4 10:18AM By Lilli MAK ; [facility] Pregabalin 200 MG Oral Capsule 10/08/2023 Provider: FELISHA SENIOR Diagnosis: Fibromyalgia TAKE 1 CAPSULE BY MOUTH TWICE DAILY Last Documented On 4 1:51PM By FELISHA SENIOR ; [facility] Omeprazole 40 MG Oral Capsule Delayed Release 08/11/20 Provider: Diagnosis: Last Documented On 4 10:17AM By Lilli MAK ; [facility] Lisinopril 40 MG Oral Tablet 04/11/2023 Provider: REFUGIO AMARO MD Diagnosis: Last Documented On 3 10:40AM By Lilli MAK ; [facility] Famotidine 20 MG Oral Tablet 01/23/2023 Provider: Diagnosis: Last Documented On 02/05/2023 4:01PM By Lilli MAK ; [facility] ARIPiprazole 2 MG Oral Tablet 01/09/2023 Provider: Diagnosis: Last Documented On 02/05/2023 4:04PM By Lilli MAK ; [facility] busPIRone HCl 15 MG Oral Tablet 09/20/2022 Provider: Diagnosis: Last Documented On 02/05/2023 4:05PM By Lilli MAK ; [facility] NIFEdipine ER 30 MG Oral Tab let Extended Release 24 Hour 05/04/2022 Provider: REFUGIO AMARO MD Diagnosis: Last Documented On 05/09/2022 3:25PM By Lilli MAK ; [facility] Metoprolol Succinate ER 200M G Oral Tablet Extended Release 24 Hour 10/03/2018 Provider: Diagnosis: Last Documented On 9 3:00PM By VENKAT MAK ; [facility] Medications Administered Includes: Administered Medications from this encounter No Administered Medications Recorded Results Includes: Results discussed during this encounter No Results Recorded For Specified Dates History of Present Illness Includes: History of Present Illness from this encounter No History of Present Illness Recorded Social History Description Last Updated Tobacco non-user 11/07/2023 Last Documented On 4 1:35PM ; [facility] Alcohol 07/31/2023 Last Documented On 4 1:35PM ; [facility] Consuming 5 or more drinks per day None 07/31/2023 Last Documented On 4 1:35PM ; [facility] Current nonsmoker 07/31/2023 Last Documented On 4 1:35PM ; [facility] Drug use 07/31/2023 Last Documented On 4 1:35PM ; [facility] Lives with spouse 07/31/2023 Last Documented On 4 1:35PM ; [facility] Non-smoker 07/31/2023 Last Documented On 4 1:35PM ; [facility] Number of times used recreat ional drug/ prescription drug for nonmedical reason. None 07/31/2023 Last Documented On 4 1:35PM ; [facility] Smoking status : Never smoker 08/07/2019 Last Documented On 4 1:35PM ; [facility] Currently 10/03/2018 Last Documented On 4 1:35PM ; [facility] Medical History Includes: Medical History addressed during this encounter Description Last Updated Reviewed and Unchanged 10/10/2019 Last Documented On 4 1:35PM ; [facility] Currently wearing eyeglasses 10/03/2018 Last Documented On 4 1:35PM ; [facility] Previously 3 time(s) 10/03/2018 Last Documented On 4 1:35PM ; [facility] History of arthritis 10/03/2018 Last Documented On 4 1:35PM ; [facility] History of cancer 10/03/2018 Last Documented On 4 1:35PM ; [facility] History of hypertension 10/03/2018 Last Documented On 4 1:35PM ; [facility] Family History Includes: Family History addressed during [...] Active Last Documented On 4 8:53AM ; [facility] Encounters Encounter Provider Location Date Check-In Time Check-Out Time Diagnosis RX ISSUE/REFILL FELISHA HERRERA-TAMIKO 01/18/2024 1:35PM 11:59PM Insurance Includes: Active Insurance Policies Plan Name Member ID Group # Subscriber Relationship Effect nieves Dates 1 - [facility] [id number] KATHY Sanchez Clinical Notes Includes: Clinical Notes from this encounter * Progress note Date Encounter Last Documented by 01/18/2024 RX ISSUE/REFILL Last documented on 01/21/2024; 2:27 PM, FELISHAAdore GIBSON ANP-; [facility] Active Problems & Conditions [...] Currently . Allergies - Adhesive Tape 1x5yd Plan StartCited - Spinal stenosis, lumbar region with neurogenic claudication Hysingla ER 20 MG tablet 1 tablet q 24 hours, 30 days, 0 refills Narcan 4 MG/0.1ML each as directed, 30 days, 0 refills EndCited Health Reminders - Assess Need for CT Lung Screen satisfied 01/18/2024. - Assess Tobacco Use satisfied 01/18/2024.
--- OUTSIDE RECORDS SUMMARY | 2025-06-16 17:37 | XMS_ITS ---
Author Organization [facility] Address [address] [place] [address] Phone Care Team Providers Care Project Construction Assistant Manager Name Role Phone LEILANI MABRY, NILESH Primary Care Provider [phone] Problems Includes: Active, inactive, and resolved Problems All Visits Onset Date Resolved Date Provider Condition S tatus Chronic Pain Syndrome 07/31/2023 NURY ECHAVARRIA PMHNP Active Last Documented On 3 1:32PM ; [facility] Plan of Treatment Referrals To Diagnosis Pain Management [address] [address] - Radiculopathy, lumbar region Note: consent for bilateral L4-5 transforaminal epidural Last Documented On 9 3:07PM ; [facility] Pain Management [address] [address] - Radiculopathy, lumbar region Note: consent for bilateral L4-5 transforaminal epiduralDr Sami Last Documented On 9 9:01AM ; [facility] Pain Management [address] [address] - Spondylosis w/o myelopathy or radiculopathy, cervical region Note: consent for bilateral C5, C6, C7 medial branch blocks Last Documented On 2 10:14AM ; [facility] Pain Management [facility] - [address] [place] [address] - Spondylosis w/o myelopathy or radiculopathy, lumbar region Note: consent for bilateral L3, L4. L5 medial branch blocks Last Documented On 3 10:10AM ; [facility] Psychiatrist NURY ECHAVARRIA PMHNP - [facility] - [address] [place] [address] - Chronic pain syndrome Note: Psychological evaluati on for implantable device therapies (spinal cord stimulation).Diagnosis: chronic pain syndrome, lumbosacral spondylosis with stenosis and neurogenic claudication recalcitrant to conservative care. Last Documented On 4 3:51PM ; [facility] Counselor [facility] - [address] [place] [address] - Chronic [facility] syndrome [facility] Last Documented On 4 1:40PM ; [facility] Education and Decision Aids were provided during visit for: Pill Count: 25 HYSINGLA Last Documented On 4 8:54AM ; [facility] Pill Count: two HYSINGLA Last Documented On 4 9:14AM ; [facility] Pill Count: HYDROCODONE ~out of medication Last Documented On 4 9:14AM ; [facility] Pill Count: two HYSINGLA Last Documented On 4 11:00AM ; [facility] Pill Count: HYDROCODONE ~out of medication Last Documented On 4 11:43AM ; [facility] Pill Count: HYDROCODONE ~out of medication Last Documented On 4 9:34AM ; [facility] Pill Count: HYDROCODONE ~out of medication Last Documented On 4 10:37AM ; [facility] Pill Count: HYDROCODONE ~out of medication Last Documented On 4 1:44PM ; [facility] Pill Count: two HYDROCODONE Last Documented On 4 1:15PM ; [facility] Patient education about adve rse reactions to medication Last Documented On 3 10:43AM ; [facility] Reviewed side effects and Ri sks/Benefits analysis Last Documented On 3 10:43AM ; [facility] Pill Count: 19 HYDROCODONE Last Documented On 3 2:06PM ; [facility] Pill Count: 19 HYDROCODONE Last Documented On 3 10:39AM ; [facility] Pill Count: 50 HYDROCODONE Last Documented On 3 10:50AM ; [facility] Pill Count: one HYDROCODONE Last Documented On 3 3:49PM ; [facility] Pill Count: six HYDROCODONE Last Documented On 3 10:14AM ; [facility] Pill Count: 38 HYDROCODONE Last Documented On 3 1:23PM ; [facility] Pill Count: 49 HYDROCODONE Last Documented On 2 10:01AM ; [facility] Pill Count: 62 HYDROCODONE Last Documented On 2 3:28PM ; [facility] Pill Count: 61 HYDROCODONE Last Documented On 2 4:14PM ; [facility] Pill Count: 62 HYDROCODONE Last Documented On 2 4:21PM ; [facility] Pill Count: Patient did not bring pain medication to appointment for pill count, per policy. Advised in order to continue to safely prescribe opioids, medication must be brought to each appointment Last Documented On 2 4:14PM ; [facility] Pill Count: 82 HYDROCODONE Last Documented On 2 3:55PM ; [facility] Pill Count: Patient did not bring pain medication to appointment for pill count, per policy. Advised in order to continue to safely prescribe opioids, medication must be brought to each appointment Last Documented On 2 4:19PM ; [facility] Pill Count: Patient did not bring pain medication to appointment for pill count, per policy. Advised in order to continue to safely prescribe opioids, medication must be brought to each appointment Last Documented On 1 1:41PM ; [facility] Pill Count: five Not Appropr iate Had surgery and did not fill the pain med that was given after suregery Last Documented On 1 1:11PM ; [facility] Pill Count: 21 Appropriate Last Documented On 1 3:19PM ; [facility] Pill Count: 21 Appropriate Last Documented On 1 5:34PM ; [facility] Pill Count: 21 Appropriate Last Documented On 1 5:23PM ; [facility] Pill Count: ten Not Appropri ate ; discussed taking only as prescribed for back pain not myalgia symptoms related to covid Last Documented On 1 3:58PM ; [facility] Pill Count: 0 Last Documented On 0 3:51PM ; [facility] Pill Count: Patient did not bring pain medication to appointment for pill count, per policy. Advised in order to continue to safely prescribe opioids, medication must be brought to each appointment Last Documented On 0 3:02PM ; [facility] Pill Count: two Appropriate Last Documented On 0 7:51AM ; [facility] Pill Count: seven Appropriat e Last Documented On 0 10:51AM ; [facility] Pill Count: three Appropriat e Last Documented On 0 12:30PM ; [facility] Pill Count: seven Appropriat e Last Documented On 9 9:53AM ; [facility] Assessments Includes: Assessments for all patient encounters Findings Encounter Date Chronic pain syndrome TELEHEALTH with FELISHA Hemant العراقي [facility] 02/01/2024 Last Documented On 4 9:17AM ; [facility] Fibromyalgia TELEHEALTH with FELISHA L ARTHUR [facility] 02/01/2024 Last Documented On 4 9:17AM ; [facility]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 TELEHEALTH wit h FELISHA L ARTHUR [facility] 02/01/2024 Last Documented On 4 9:17AM ; [facility] Lumbar spondylosis with radiculopathy TE LEHEALTH with FELISHA L ARTHUR [facility] 02/01/2024 Last Documented On 4 9:17AM ; [facility] Lumbar stenosis with neuroge michelle claudication TELEHEALTH with FELISHA L ARTHUR [facility] 02/01/2024 Last Documented On 4 9:17AM ; [facility] Sacroiliitis TELEHEALTH with FELISHA L ARTHUR [facility]P-BC 02/01/2024 Last Documented On 4 9:17AM ; [facility] Systemic lupus erythematosus TELEHEALTH with NAVARRO MOISES L ARTHUR ANP-BC 02/01/2024 Last Documented On 4 9:17AM ; [facility] Chronic pain syndrome TELEHEALTH with FELISHA L B DULCE MARIA ANP-BC 12/17/2023 Last Documented On 4 1:18PM ; [facility] Fibromyalgia TELEHEALTH with FELISHA L ARTHUR ANP-BC 12/17/2023 Last Documented On 4 1:18PM ; [facility] nursing home use of opiate analgesic TELEHEALTH wit h FELISHA L ARTHUR ANP-BC 12/17/2023 Last Documented On 4 1:18PM ; [facility] Lumbar spondylosis with radiculopathy TE LEHEALTH with FELISHA L ARTHUR ANP-BC 12/17/2023 Last Documented On 4 1:18PM ; [facility] Lumbar stenosis with neuroge michelle claudication TELEHEALTH with FELISHA L ARTHUR ANP-BC 12/17/2023 Last Documented On 4 1:18PM ; [facility] Sacroiliitis TELEHEALTH with FELISHA L ARTHUR ANP-BC 12/17/2023 Last Documented On 4 1:18PM ; [facility] Systemic lupus erythematosus TELEHEALTH with NAVARRO MOISES L ARTHUR ANP-BC 12/17/2023 Last Documented On 4 1:18PM ; [facility] Chronic pain syndrome TELEHEALTH with FELISHA L B DULCE MARIA ANP-BC 11/30/2023 Last Documented On 4 9:40AM ; [facility] Fibromyalgia TELEHEALTH with FELISHA L ARTHUR ANP-BC 11/30/2023 Last Documented On 4 9:40AM ; [facility]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 TELEHEALTH wit h FELISHA L ARTHUR ANP-BC 11/30/2023 Last Documented On 4 9:40AM ; [facility] Lumbar spondylosis with radiculopathy TE LEHEALTH with FELISHA L ARTHUR ANP-BC 11/30/2023 Last Documented On 4 9:40AM ; [facility] Lumbar stenosis with neuroge michelle claudication TELEHEALTH with FELISHA L ARTHUR ANP-BC 11/30/2023 Last Documented On 4 9:40AM ; [facility] Sacroiliitis TELEHEALTH with FELISHA L ARTHUR ANP-BC 11/30/2023 Last Documented On 4 9:40AM ; [facility] Systemic lupus erythematosus TELEHEALTH with NAVARRO MOISES L ARTHUR ANP-BC 11/30/2023 Last Documented On 4 9:40AM ; [facility] Chronic pain syndrome PAIN MANAGEMENT FOLLOW UP with MAX SINGLETON MD 11/23/2023 Last Documented On 4 6:28PM ; [facility] Fibromyalgia PAIN MANAGEMENT FOLLOW UP with Akosua SINGLETON MD 11/23/2023 Last Documented On 4 6:28PM ; [facility]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 PAIN M ANAGEMENT FOLLOW UP with MAX SINGLETON MD 11/23/2023 Last Documented On 4 6:28PM ; [facility] Lumbar spondylosis with radiculopathy PA IN MANAGEMENT FOLLOW UP with MAX SINGLETON MD 11/23/2023 Last Documented On 4 6:28PM ; [facility] Lumbar stenosis with neuroge michelle claudication PAIN MANAGEMENT FOLLOW UP with MAX SINGLETON MD 11/23/2023 Last Documented On 4 6:28PM ; [facility] Sacroiliitis PAIN MANAGEMENT FOLLOW UP with Akosua SINGLETON MD 11/23/2023 Last Documented On 4 6:28PM ; [facility] Systemic lupus erythematosus PAIN MANAGE MENT FOLLOW UP with MAX SINGLETON MD 11/23/2023 Last Documented On 4 6:28PM ; [facility] Chronic pain syndrome PAIN MANAGEMENT FO LLOW UP with FELISHA L ARTHUR ANP-BC 11/07/2023 Last Documented On 4 3:07PM ; [facility] Fibromyalgia PAIN MANAGEMENT FOLLOW UP with T MULU L ARTHUR ANP-BC 11/07/2023 Last Documented On 4 3:07PM ; [facility] nursing home use of opiate analgesic PAIN M ANAGEMENT FOLLOW UP with FELISHA L ARTHUR ANP-BC 11/07/2023 Last Documented On 4 3:07PM ; [facility] Lumbar spondylosis with radiculopathy PA IN MANAGEMENT FOLLOW UP with FELISHA L ARTHUR ANP-BC 11/07/2023 Last Documented On 4 3:07PM ; [facility] Lumbar stenosis with neuroge michelle claudication PAIN MANAGEMENT FOLLOW UP with FELISHA L ARTHUR ANP-BC 11/07/2023 Last Documented On 4 3:07PM ; [facility] Sacroiliitis PAIN MANAGEMENT FOLLOW UP with T MULU L ARTHUR ANP-BC 11/07/2023 Last Documented On 4 3:07PM ; [facility] Systemic lupus erythematosus PAIN MANAGE MENT FOLLOW UP with FELISHA L ARTHUR ANP-BC 11/07/2023 Last Documented On 4 3:07PM ; [facility] Chronic pain syndrome PAIN MANAGEMENT FO LLOW UP with FELISHA L ARTHUR ANP-BC 10/08/2023 Last Documented On 4 1:55PM ; [facility] Fibromyalgia PAIN MANAGEMENT FOLLOW UP with T MULU L ARTHUR ANP-BC 10/08/2023 Last Documented On 4 1:55PM ; [facility]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 PAIN M ANAGEMENT FOLLOW UP with FEILSHA L ARTHUR ANP-BC 10/08/2023 Last Documented On 4 1:55PM ; [facility] Lumbar spondylosis with radiculopathy PA IN MANAGEMENT FOLLOW UP with FELISHA L ARTHUR ANP-BC 10/08/2023 Last Documented On 4 1:55PM ; [facility] Lumbar stenosis with neuroge michelle claudication PAIN MANAGEMENT FOLLOW UP with FELISHA L ARTHUR ANP-BC 10/08/2023 Last Documented On 4 1:55PM ; [facility] Sacroiliitis PAIN MANAGEMENT FOLLOW UP with Ally GIBSON ANP- 10/08/2023 Last Documented On 4 1:55PM ; [facility] Systemic lupus erythematosus PAIN MANAGE MENT FOLLOW UP with FELISHA ZENGS ANP- 10/08/2023 Last Documented On 4 1:55PM ; [facility] [G89.4 - Chronic pain syndro me] chronic pain syndrome PSYCH NEW PATIENT EXAM 17 YEARS AND OLDER with NURY ECHAVARRIA PMHNP 07/31/2023 Last Documented On 3 2:52PM ; [facility] Chronic pain syndrome PAIN MANAGEMENT FOLLOW UP with MAX SINGLETON MD 07/12/2023 Last Documented On 3 2:54PM ; [facility] Fibromyalgia PAIN MANAGEMENT FOLLOW UP with Akosua SINGLETON MD 07/12/2023 Last Documented On 3 2:54PM ; [facility]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 PAIN M ANAGEMENT FOLLOW UP with MAX SINGLETON MD 07/12/2023 Last Documented On 3 2:54PM ; [facility] Lumbar spondylosis with radiculopathy PA IN MANAGEMENT FOLLOW UP with MAX SINGLETON MD 07/12/2023 Last Documented On 3 2:54PM ; [facility] Lumbar stenosis with neuroge michelle claudication PAIN MANAGEMENT FOLLOW UP with MAX SINGLETON MD 07/12/2023 Last Documented On 3 2:54PM ; [facility] Sacroiliitis PAIN MANAGEMENT FOLLOW UP with Akosua SINGLETON MD 07/12/2023 Last Documented On 3 2:54PM ; [facility] Systemic lupus erythematosus PAIN MANAGE MENT FOLLOW UP with MAX SINGLETON MD 07/12/2023 Last Documented On 3 2:54PM ; [facility] Chronic pain syndrome PAIN MANAGEMENT FO LLOW UP [facility] Last Documented On 3 11:17AM ; [facility] Fibromyalgia PAIN MANAGEMENT FOLLOW UP with Ally GIBSON [facility]- 07/05/2023 Last Documented On 3 11:17AM ; [facility] nursing home use of opiate analgesic PAIN M ANAGEMENT FOLLOW UP with FELISHA L ARTHUR ANP-BC 07/05/2023 Last Documented On 3 11:17AM ; [facility] Lumbar spondylosis with radiculopathy PA IN MANAGEMENT FOLLOW UP with FELISHA L ARTHUR ANP-BC 07/05/2023 Last Documented On 3 11:17AM ; [facility] Lumbar stenosis with neuroge michelle claudication PAIN MANAGEMENT FOLLOW UP with FELISHA L ARTHUR ANP-BC 07/05/2023 Last Documented On 3 11:17AM ; [facility] Sacroiliitis PAIN MANAGEMENT FOLLOW UP with T MULU L ARTHUR ANP-BC 07/05/2023 Last Documented On 3 11:17AM ; [facility] Systemic lupus erythematosus PAIN MANAGE MENT FOLLOW UP with FELISHA L ARTHUR ANP-BC 07/05/2023 Last Documented On 3 11:17AM ; [facility] Cervical spondylosis without myelopathy or radiculopathy TELEHEALTH with FELISHA L ARTHUR ANP-BC 06/05/2023 Last Documented On 3 12:57PM ; [facility] Chronic pain syndrome TELEHEALTH with FELISHA L B DULCE MARIA ANP-BC 06/05/2023 Last Documented On 3 12:57PM ; [facility] Fibromyalgia TELEHEALTH with FELISHA L ARTHUR ANP-BC 06/05/2023 Last Documented On 3 12:57PM ; [facility] nursing home use of opiate analgesic TELEHEALTH wit h FELISHA L ARTHUR ANP-BC 06/05/2023 Last Documented On 3 12:57PM ; [facility] Lumbar spondylosis with radiculopathy TE LEHEALTH with FELISHA L ARTHUR ANP-BC 06/05/2023 Last Documented On 3 12:57PM ; [facility] Lumbar stenosis with neuroge michelle claudication TELEHEALTH with FELISHA L ARTHUR ANP-BC 06/05/2023 Last Documented On 3 12:57PM ; [facility] Sacroiliitis TELEHEALTH with FELISHA L ARTHUR ANP-BC 06/05/2023 Last Documented On 3 12:57PM ; [facility] Systemic lupus erythematosus TELEHEALTH with NAVARRO MOISES L ARTHUR ANP-BC 06/05/2023 Last Documented On 3 12:57PM ; [facility] Cervical spondylosis without myelopathy or radiculopathy PAIN MANAGEMENT FOLLOW UP with FELISHA L ARTHUR ANP-BC 03/23/2023 Last Documented On 3 11:03AM ; [facility] Chronic pain syndrome PAIN MANAGEMENT FO LLOW UP with FELISHA L ARTHUR ANP-BC 03/23/2023 Last Documented On 3 11:03AM ; [facility] Fibromyalgia PAIN MANAGEMENT FOLLOW UP with T MULU L ARTHUR ANP-BC 03/23/2023 Last Documented On 3 11:03AM ; [facility] nursing home use of opiate analgesic PAIN M ANAGEMENT FOLLOW UP with FELISHA L ARTHUR ANP-BC 03/23/2023 Last Documented On 3 11:03AM ; [facility] Lumbar spondylosis with radiculopathy PA IN MANAGEMENT FOLLOW UP with FELISHA L ARTHUR ANP-BC 03/23/2023 Last Documented On 3 11:03AM ; [facility] Lumbar stenosis with neuroge michelle claudication PAIN MANAGEMENT FOLLOW UP with FELISHA L ARTHUR ANP-BC 03/23/2023 Last Documented On 3 11:03AM ; [facility] Sacroiliitis PAIN MANAGEMENT FOLLOW UP with T MULU L ARTHUR ANP-BC 03/23/2023 Last Documented On 3 11:03AM ; [facility] Systemic lupus erythematosus PAIN MANAGE MENT FOLLOW UP with FELISHA L ARTHUR ANP-BC 03/23/2023 Last Documented On 3 11:03AM ; [facility] Cervical spondylosis without myelopathy or radiculopathy PAIN MANAGEMENT FOLLOW UP with FELISHA L ARTHUR ANP-BC 02/05/2023 Last Documented On 3 10:23AM ; [facility] Chronic pain syndrome PAIN MANAGEMENT FO LLOW UP with FELISHA L ARTHUR ANP-BC 02/05/2023 Last Documented On 3 10:23AM ; [facility] Fibromyalgia PAIN MANAGEMENT FOLLOW UP with T MULU L ARTHUR ANP-BC 02/05/2023 Last Documented On 3 10:23AM ; [facility]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 PAIN M ANAGEMENT FOLLOW UP with FELISHA L ARTHUR ANP-BC 02/05/2023 Last Documented On 3 10:23AM ; [facility] Lumbar spondylosis with radiculopathy PA IN MANAGEMENT FOLLOW UP with FELISHA L ARTHUR ANP-BC 02/05/2023 Last Documented On 3 10:23AM ; [facility] Lumbar stenosis with neuroge michelle claudication PAIN MANAGEMENT FOLLOW UP with FELISHA L ARTHUR ANP-BC 02/05/2023 Last Documented On 3 10:23AM ; [facility] Sacroiliitis PAIN MANAGEMENT FOLLOW UP with T MULU L ARTHUR ANP-BC 02/05/2023 Last Documented On 3 10:23AM ; [facility] Systemic lupus erythematosus PAIN MANAGE MENT FOLLOW UP with FELISHA L ARTHUR ANP-BC 02/05/2023 Last Documented On 3 10:23AM ; [facility] Cervical spondylosis without myelopathy or radiculopathy PAIN MANAGEMENT FOLLOW UP with FELISHA L ARTHUR ANP-BC 11/28/2022 Last Documented On 3 2:12PM ; [facility] Cervicalgia PAIN MANAGEMENT FOLLOW UP with T MULU L ARTHUR ANP-BC 11/28/2022 Last Documented On 3 2:12PM ; [facility] Chronic pain syndrome PAIN MANAGEMENT FO LLOW UP with FELISHA L ARTHUR ANP-BC 11/28/2022 Last Documented On 3 2:12PM ; [facility] Fibromyalgia PAIN MANAGEMENT FOLLOW UP with T MULU L ARTHUR ANP-BC 11/28/2022 Last Documented On 3 2:12PM ; [facility] Localized lumbar osteoarthritis PAIN MAN AGEMENT FOLLOW UP with FELISHA L ARTHUR ANP-BC 11/28/2022 Last Documented On 3 2:12PM ; [facility]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 PAIN M ANAGEMENT FOLLOW UP with FELISHA L ARTHUR ANP-BC 11/28/2022 Last Documented On 3 2:12PM ; [facility] Lumbosacral spinal stenosis PAIN MANAGEM ENT FOLLOW UP with FELISHA L ARTHUR ANP-BC 11/28/2022 Last Documented On 3 2:12PM ; [facility] Sacroiliitis PAIN MANAGEMENT FOLLOW UP with T MULU L ARTHUR ANP-BC 11/28/2022 Last Documented On 3 2:12PM ; [facility] Systemic lupus erythematosus PAIN MANAGE MENT FOLLOW UP with FELISHA L ARTHUR ANP-BC 11/28/2022 Last Documented On 3 2:12PM ; [facility] Cervical spondylosis without myelopathy or radiculopathy PAIN MANAGEMENT FOLLOW UP with FELISHA L ARTHUR ANP-BC 08/17/2022 Last Documented On 2 10:33AM ; [facility] Cervicalgia PAIN MANAGEMENT FOLLOW UP with T MULU L ARTHUR ANP-BC 08/17/2022 Last Documented On 2 10:33AM ; [facility] Chronic pain syndrome PAIN MANAGEMENT FO LLOW UP with FELISHA L ARTHUR ANP-BC 08/17/2022 Last Documented On 2 10:33AM ; [facility] Fibromyalgia PAIN MANAGEMENT FOLLOW UP with T MULU L ARTHUR ANP-BC 08/17/2022 Last Documented On 2 10:33AM ; [facility] Localized lumbar osteoarthritis PAIN MAN AGEMENT FOLLOW UP with FELISHA L ARTHUR ANP-BC 08/17/2022 Last Documented On 2 10:33AM ; [facility] nursing home use of opiate analgesic PAIN M ANAGEMENT FOLLOW UP with FELISHA L ARTHUR ANP-BC 08/17/2022 Last Documented On 2 10:33AM ; [facility] Lumbosacral spinal stenosis PAIN MANAGEM ENT FOLLOW UP with FELISHA L ARTHUR ANP-BC 08/17/2022 Last Documented On 2 10:33AM ; [facility] Sacroiliitis PAIN MANAGEMENT FOLLOW UP with T MULU L ARTHUR ANP-BC 08/17/2022 Last Documented On 2 10:33AM ; [facility] Systemic lupus erythematosus PAIN MANAGE MENT FOLLOW UP with FELISHA L ARTHUR ANP-BC 08/17/2022 Last Documented On 2 10:33AM ; [facility] Cervical spondylosis without myelopathy or radiculopathy PAIN MANAGEMENT FOLLOW UP with FELISHA L ARTHUR ANP-BC 05/09/2022 Last Documented On 2 3:54PM ; [facility] Cervicalgia PAIN MANAGEMENT FOLLOW UP with T MULU L ARTHUR ANP-BC 05/09/2022 Last Documented On 2 3:54PM ; [facility] Chronic pain syndrome PAIN MANAGEMENT FO LLOW UP with FELISHA L ARTHUR ANP-BC 05/09/2022 Last Documented On 2 3:54PM ; [facility] Fibromyalgia PAIN MANAGEMENT FOLLOW UP with T MULU L ARTHUR ANP-BC 05/09/2022 Last Documented On 2 3:54PM ; [facility] Localized lumbar osteoarthritis PAIN MAN AGEMENT FOLLOW UP with FELISHA L ARTHUR ANP-BC 05/09/2022 Last Documented On 2 3:54PM ; [facility] nursing home use of opiate analgesic PAIN M ANAGEMENT FOLLOW UP with FELISHA L ARTHUR ANP-BC 05/09/2022 Last Documented On 2 3:54PM ; [facility] Lumbosacral spinal stenosis PAIN MANAGEM ENT FOLLOW UP with FELISHA L ARTHUR ANP-BC 05/09/2022 Last Documented On 2 3:54PM ; [facility] Sacroiliitis PAIN MANAGEMENT FOLLOW UP with T MULU L ARTHUR ANP-BC 05/09/2022 Last Documented On 2 3:54PM ; [facility] Systemic lupus erythematosus PAIN MANAGE MENT FOLLOW UP with FELISHA L ARTHUR ANP-BC 05/09/2022 Last Documented On 2 3:54PM ; [facility] Cervical spondylosis without myelopathy or radiculopathy PAIN MANAGEMENT FOLLOW UP with FELISHA L ARTHUR ANP-BC 02/09/2022 Last Documented On 2 4:29PM ; [facility] Cervicalgia PAIN MANAGEMENT FOLLOW UP with T MULU L ARTHUR ANP-BC 02/09/2022 Last Documented On 2 4:29PM ; [facility] Chronic pain syndrome PAIN MANAGEMENT FO LLOW UP with FELISHA L ARTHUR ANP-BC 02/09/2022 Last Documented On 2 4:29PM ; [facility] Fibromyalgia PAIN MANAGEMENT FOLLOW UP with T MULU L ARTHUR ANP-BC 02/09/2022 Last Documented On 2 4:29PM ; [facility] Localized lumbar osteoarthritis PAIN MAN AGEMENT FOLLOW UP with FELISHA L ARTHUR ANP-BC 02/09/2022 Last Documented On 2 4:29PM ; [facility]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 PAIN M ANAGEMENT FOLLOW UP with FELISHA L ARTHUR ANP-BC 02/09/2022 Last Documented On 2 4:29PM ; [facility] Lumbosacral spinal stenosis PAIN MANAGEM ENT FOLLOW UP with FELISHA L ARTHUR ANP-BC 02/09/2022 Last Documented On 2 4:29PM ; [facility] Sacroiliitis PAIN MANAGEMENT FOLLOW UP with T MULU L ARTHUR ANP-BC 02/09/2022 Last Documented On 2 4:29PM ; [facility] Systemic lupus erythematosus PAIN MANAGE MENT FOLLOW UP with FELISHA L ARTHUR ANP-BC 02/09/2022 Last Documented On 2 4:29PM ; [facility] Cervical spondylosis without myelopathy or radiculopathy PAIN MANAGEMENT FOLLOW UP with FELISHA L ARTHUR ANP-BC 11/28/2021 Last Documented On 2 4:53PM ; [facility] Cervicalgia PAIN MANAGEMENT FOLLOW UP with T MULU L ARTHUR ANP-BC 11/28/2021 Last Documented On 2 4:53PM ; [facility] Chronic pain syndrome PAIN MANAGEMENT FO LLOW UP with FELISHA L ARTHUR ANP-BC 11/28/2021 Last Documented On 2 4:53PM ; [facility] Fibromyalgia PAIN MANAGEMENT FOLLOW UP with T MULU L ARTHUR ANP-BC 11/28/2021 Last Documented On 2 4:53PM ; [facility] Localized lumbar osteoarthritis PAIN MAN AGEMENT FOLLOW UP with FELISHA L ARTHUR ANP-BC 11/28/2021 Last Documented On 2 4:53PM ; [facility]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 PAIN M ANAGEMENT FOLLOW UP with FELISHA L ARTHUR ANP-BC 11/28/2021 Last Documented On 2 4:53PM ; [facility] Lumbosacral spinal stenosis PAIN MANAGEM ENT FOLLOW UP with FELISHA L ARTHUR ANP-BC 11/28/2021 Last Documented On 2 4:53PM ; [facility] Sacroiliitis PAIN MANAGEMENT FOLLOW UP with T MULU L ARTHUR ANP-BC 11/28/2021 Last Documented On 2 4:53PM ; [facility] Systemic lupus erythematosus PAIN MANAGE MENT FOLLOW UP with FELISHA L ARTHUR ANP-BC 11/28/2021 Last Documented On 2 4:53PM ; [facility] Cervical spondylosis without myelopathy or radiculopathy PAIN MANAGEMENT FOLLOW UP with FELISHA L ARTHUR ANP-BC 09/21/2021 Last Documented On 2 8:49AM ; [facility] Cervicalgia PAIN MANAGEMENT FOLLOW UP with T MULU L ARTHUR ANP-BC 09/21/2021 Last Documented On 2 8:49AM ; [facility] Chronic pain syndrome PAIN MANAGEMENT FO LLOW UP with FELISHA L ARTHUR ANP-BC 09/21/2021 Last Documented On 2 8:49AM ; [facility] Fibromyalgia PAIN MANAGEMENT FOLLOW UP with T MULU L ARTHUR ANP-BC 09/21/2021 Last Documented On 2 8:49AM ; [facility] Localized lumbar osteoarthritis PAIN MAN AGEMENT FOLLOW UP with FELISHA L ARTHUR ANP-BC 09/21/2021 Last Documented On 2 8:49AM ; [facility] nursing home use of opiate analgesic PAIN M ANAGEMENT FOLLOW UP with FELISHA L ARTHUR ANP-BC 09/21/2021 Last Documented On 2 8:49AM ; [facility] Lumbosacral spinal stenosis PAIN MANAGEM ENT FOLLOW UP with FELISHA L ARTHUR ANP-BC 09/21/2021 Last Documented On 2 8:49AM ; [facility] Sacroiliitis PAIN MANAGEMENT FOLLOW UP with T MULU L ARTHUR ANP-BC 09/21/2021 Last Documented On 2 8:49AM ; [facility] Systemic lupus erythematosus PAIN MANAGE MENT FOLLOW UP with FELISHA L ARTHUR ANP-BC 09/21/2021 Last Documented On 2 8:49AM ; [facility] Cervical spondylosis without myelopathy or radiculopathy PAIN MANAGEMENT FOLLOW UP with FELISHA L ARTHUR ANP-BC 06/14/2021 Last Documented On 1 9:23AM ; [facility] Cervicalgia PAIN MANAGEMENT FOLLOW UP with T MULU L ARTHUR ANP-BC 06/14/2021 Last Documented On 1 9:23AM ; [facility] Chronic pain syndrome PAIN MANAGEMENT FO LLOW UP with FELISHA L ARTHUR ANP-BC 06/14/2021 Last Documented On 1 9:23AM ; [facility] Fibromyalgia PAIN MANAGEMENT FOLLOW UP with T MULU L ARTHUR ANP-BC 06/14/2021 Last Documented On 1 9:23AM ; [facility] Localized lumbar osteoarthritis PAIN MAN AGEMENT FOLLOW UP with FELISHA L ARTHUR ANP-BC 06/14/2021 Last Documented On 1 9:23AM ; [facility] nursing home use of opiate analgesic PAIN M ANAGEMENT FOLLOW UP with FELISHA L ARTHUR ANP-BC 06/14/2021 Last Documented On 1 9:23AM ; [facility] Lumbosacral spinal stenosis PAIN MANAGEM ENT FOLLOW UP with FELISHA L ARTHUR ANP-BC 06/14/2021 Last Documented On 1 9:23AM ; [facility] Sacroiliitis PAIN MANAGEMENT FOLLOW UP with T MULU L ARTHUR ANP-BC 06/14/2021 Last Documented On 1 9:23AM ; [facility] Systemic lupus erythematosus PAIN MANAGE MENT FOLLOW UP with FELISHA L ARTHUR ANP-BC 06/14/2021 Last Documented On 1 9:23AM ; [facility] Cervicalgia PAIN MANAGEMENT FOLLOW UP with T MULU L ARTHUR ANP-BC 04/13/2021 Last Documented On 1 12:19PM ; [facility] Chronic pain syndrome PAIN MANAGEMENT FO LLOW UP with FELISHA L ARTHUR ANP-BC 04/13/2021 Last Documented On 1 12:19PM ; [facility] Fibromyalgia PAIN MANAGEMENT FOLLOW UP with T MULU L ARTHUR ANP-BC 04/13/2021 Last Documented On 1 12:19PM ; [facility] Localized lumbar osteoarthritis PAIN MAN AGEMENT FOLLOW UP with FELISHA L ARTHUR ANP-BC 04/13/2021 Last Documented On 1 12:19PM ; [facility]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 PAIN M ANAGEMENT FOLLOW UP with FELISHA L ARTHUR ANP-BC 04/13/2021 Last Documented On 1 12:19PM ; [facility] Lumbosacral spinal stenosis PAIN MANAGEM ENT FOLLOW UP with FELISHA L ARTHUR ANP-BC 04/13/2021 Last Documented On 1 12:19PM ; [facility] Sacroiliitis PAIN MANAGEMENT FOLLOW UP with T MULU L ARTHUR ANP-BC 04/13/2021 Last Documented On 1 12:19PM ; [facility] Systemic lupus erythematosus PAIN MANAGE MENT FOLLOW UP with FELISHA L ARTHUR ANP-BC 04/13/2021 Last Documented On 1 12:19PM ; [facility] Cervicalgia PAIN MANAGEMENT FOLLOW UP with T MLUU L ARTHUR ANP-BC 2021 Last Documented On 1 4:57PM ; [facility] Chronic pain syndrome PAIN MANAGEMENT FO LLOW UP with FELISHA L ARTHUR ANP-BC 2021 Last Documented On 1 4:57PM ; [facility] Fibromyalgia PAIN MANAGEMENT FOLLOW UP with T MULU L ARTHUR ANP-BC 2021 Last Documented On 1 4:57PM ; [facility] Localized lumbar osteoarthritis PAIN MAN AGEMENT FOLLOW UP with FELISHA L ARTHUR ANP-BC 2021 Last Documented On 1 4:57PM ; [facility]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 PAIN M ANAGEMENT FOLLOW UP with FELISHA L ARTHUR ANP-BC 2021 Last Documented On 1 4:57PM ; [facility] Lumbosacral spinal stenosis PAIN MANAGEM ENT FOLLOW UP with FELISHA L ARTHUR ANP-BC 2021 Last Documented On 1 4:57PM ; [facility] Sacroiliitis PAIN MANAGEMENT FOLLOW UP with T MULU L ARTHUR ANP-BC 2021 Last Documented On 1 4:57PM ; [facility] Systemic lupus erythematosus PAIN MANAGE MENT FOLLOW UP with FELISHA L ARTHUR ANP-BC 2021 Last Documented On 1 4:57PM ; [facility] Cervicalgia PAIN MANAGEMENT FOLLOW UP with T MULU L ARTHUR ANP-BC 01/04/2021 Last Documented On 1 5:35PM ; [facility] Chronic pain syndrome PAIN MANAGEMENT FO LLOW UP with FELISHA L ARTHUR ANP-BC 01/04/2021 Last Documented On 1 5:35PM ; [facility] Fibromyalgia PAIN MANAGEMENT FOLLOW UP with T MULU L ARTHUR ANP-BC 01/04/2021 Last Documented On 1 5:35PM ; [facility] Localized lumbar osteoarthritis PAIN MAN AGEMENT FOLLOW UP with FELISHA L ARTHUR ANP- 01/04/2021 Last Documented On 1 5:35PM ; [facility] nursing home use of opiate analgesic PAIN M ANAGEMENT FOLLOW UP with FELISHA L ARTHUR ANP- 01/04/2021 Last Documented On 1 5:35PM ; [facility] Lumbosacral spinal stenosis PAIN MANAGEM ENT FOLLOW UP with FELISHA L ARTHUR ANP- 01/04/2021 Last Documented On 1 5:35PM ; [facility] Sacroiliitis PAIN MANAGEMENT FOLLOW UP with T MULU L ARTHUR ANP- 01/04/2021 Last Documented On 1 5:35PM ; [facility] Systemic lupus erythematosus PAIN MANAGE MENT FOLLOW UP with FELISHA L ARTHUR ANP- 01/04/2021 Last Documented On 1 5:35PM ; [facility] Chronic pain syndrome PAIN MANAGEMENT FO LLOW UP with FELISHA L ARTHUR [facility] 10/07/2020 Last Documented On 1 8:11AM ; [facility] Fibromyalgia PAIN MANAGEMENT FOLLOW UP with T MULU L ARTHUR ANP- 10/07/2020 Last Documented On 1 8:11AM ; [facility] Lumbosacral spinal stenosis PAIN MANAGEM ENT [facility] Last Documented On 1 8:11AM ; [facility] Sacroiliitis PAIN MANAGEMENT FOLLOW UP with T MULU L ARTHUR [facility] 10/07/2020 Last Documented On 1 8:11AM ; [facility] Systemic lupus erythematosus PAIN MANAGE MENT FOLLOW UP [facility]2020 Last Documented On 1 8:11AM ; [facility] Chronic pain syndrome TELEHEALTH with FELISHA Hemant العراقي [facility] 09/09/2020 Last Documented On 1 4:00PM ; [facility] Fibromyalgia TELEHEALTH with FELISHA L ARTHUR [facility] 09/09/2020 Last Documented On 1 4:00PM ; [facility] Lumbosacral spinal stenosis TELEHEALTH with TAMM IE L ARTHUR ANP-BC 09/09/2020 Last Documented On 1 4:00PM ; [facility] Sacroiliitis TELEHEALTH with FELISHA L ARTHUR ANP-BC 09/09/2020 Last Documented On 1 4:00PM ; [facility] Systemic lupus erythematosus TELEHEALTH with NAVARRO MOISES L ARTHUR ANP-BC 09/09/2020 Last Documented On 1 4:00PM ; [facility] Chronic pain syndrome PAIN MANAGEMENT FO LLOW UP with FELISHA L ARTHUR ANP-BC 06/10/2020 Last Documented On 0 12:01PM ; [facility] Fibromyalgia PAIN MANAGEMENT FOLLOW UP with T MULU L ARTHUR ANP-BC 06/10/2020 Last Documented On 0 12:01PM ; [facility] Lumbosacral spinal stenosis PAIN MANAGEM ENT FOLLOW UP with FELISHA L ARTHUR ANP-BC 06/10/2020 Last Documented On 0 12:01PM ; [facility] Sacroiliitis PAIN MANAGEMENT FOLLOW UP with T MULU L ARTHUR ANP-BC 06/10/2020 Last Documented On 0 12:01PM ; [facility] Systemic lupus erythematosus PAIN MANAGE MENT FOLLOW UP with FELISHA L ARTHUR ANP-BC 06/10/2020 Last Documented On 0 12:01PM ; [facility] Chronic pain syndrome PAIN MANAGEMENT FO LLOW UP with FELISHA L ARTHUR ANP-BC 05/11/2020 Last Documented On 0 3:30PM ; [facility] Fibromyalgia PAIN MANAGEMENT FOLLOW UP with T MULU L ARTHUR ANP-BC 05/11/2020 Last Documented On 0 3:30PM ; [facility] Lumbosacral spinal stenosis PAIN MANAGEM ENT FOLLOW UP with FELISHA L ARTHUR ANP-BC 05/11/2020 Last Documented On 0 3:30PM ; [facility] Sacroiliitis PAIN MANAGEMENT FOLLOW UP with T MULU L ARTHUR ANP-BC 05/11/2020 Last Documented On 0 3:30PM ; [facility] Systemic lupus erythematosus PAIN MANAGE MENT FOLLOW UP with FELISHA L ARTHUR ANP-BC 05/11/2020 Last Documented On 0 3:30PM ; [facility] Chronic pain syndrome PAIN MANAGEMENT FO LLOW UP with FELISHA L ARTHUR ANP- 02/09/2020 Last Documented On 0 7:52AM ; [facility] Fibromyalgia PAIN MANAGEMENT FOLLOW UP with T MULU L ARTHUR ANP- 02/09/2020 Last Documented On 0 7:52AM ; [facility] Lumbosacral spinal stenosis PAIN MANAGEM ENT FOLLOW UP with FELISHA L ARTHUR ANP- 02/09/2020 Last Documented On 0 7:52AM ; [facility] Sacroiliitis PAIN MANAGEMENT FOLLOW UP with T MULU L ARTHUR ANP- 02/09/2020 Last Documented On 0 7:52AM ; [facility] Systemic lupus erythematosus PAIN MANAGE MENT FOLLOW UP with FELISHA L ARTHUR ANP- 02/09/2020 Last Documented On 0 7:52AM ; [facility] Chronic pain syndrome TELEHEALTH with FELISHA L B DULCE MARIA [facility] 01/08/2020 Last Documented On 0 11:01AM ; [facility] Fibromyalgia TELEHEALTH with FELISHA L ARTHUR [facility] 01/08/2020 Last Documented On 0 11:01AM ; [facility] Lumbosacral spinal stenosis TELEHEALTH with TAMM IE [facility]2020 Last Documented On 0 11:01AM ; [facility] Sacroiliitis TELEHEALTH with [facility]2020 Last Documented On 0 11:01AM ; [facility] Systemic lupus erythematosus TELEHEALTH with NAVARRO MOISES [facility]2020 Last Documented On 0 11:01AM ; [facility] Chronic pain syndrome PAIN MANAGEMENT FO LLOW UP with [facility]HA [facility]/10[facility]2019 Last Documented On 0 12:34PM ; [facility] Fibromyalgia PAIN MANAGEMENT FOLLOW UP with T MULU L ARTHUR ANP- 10/10/2019 Last Documented On 0 12:34PM ; [facility] Lumbosacral spinal stenosis PAIN MANAGEM ENT FOLLOW UP with [facility]HA [facility]2019 Last Documented On 0 12:34PM ; [facility] Sacroiliitis PAIN MANAGEMENT FOLLOW UP with T MULU L ARTHUR [facility] 10/10/2019 Last Documented On 0 12:34PM ; [facility] Systemic lupus erythematosus PAIN MANAGE MENT FOLLOW UP with FELISHA L ARTHUR [facility] 10/10/2019 Last Documented On 0 12:34PM ; [facility] Chronic pain syndrome PAIN MANAGEMENT FO LLOW UP with FELISHA L ARTHUR [facility] 08/07/2019 Last Documented On 9 9:54AM ; [facility] Fibromyalgia PAIN MANAGEMENT FOLLOW UP with T MULU L ARTHUR [facility] 08/07/2019 Last Documented On 9 9:54AM ; [facility] Lumbosacral spinal stenosis PAIN MANAGEM ENT FOLLOW UP with FELISHA L ARTHUR [facility] 08/07/2019 Last Documented On 9 9:54AM ; [facility] Sacroiliitis PAIN MANAGEMENT FOLLOW UP with T MULU L ARTHUR [facility] 08/07/2019 Last Documented On 9 9:54AM ; [facility] Systemic lupus erythematosus PAIN MANAGE MENT FOLLOW UP with FELISHA L ARTHUR [facility] 08/07/2019 Last Documented On 9 9:54AM ; [facility] Chronic pain syndrome PAIN MANAGEMENT FO LLOW UP with FELISHA L ARTHUR [facility] 06/30/2019 Last Documented On 9 3:12PM ; [facility] Fibromyalgia PAIN MANAGEMENT FOLLOW UP with T MULU L ARTHUR [facility] 06/30/2019 Last Documented On 9 3:12PM ; [facility] Lumbar radiculopathy PAIN MANAGEMENT FOL LOW UP with FELISHA L ARTHUR ANP-BC 06/30/2019 Last Documented On 9 3:12PM ; [facility] Lumbosacral spinal stenosis PAIN MANAGEM ENT FOLLOW UP with FELISHA L ARTHUR ANP-BC 06/30/2019 Last Documented On 9 3:12PM ; [facility] Myalgia PAIN MANAGEMENT FOLLOW UP with T MULU L ARTHUR ANP-BC 06/30/2019 Last Documented On 9 3:12PM ; [facility] Sacroiliitis PAIN MANAGEMENT FOLLOW UP with T MULU L ARTHUR ANP-BC 06/30/2019 Last Documented On 9 3:12PM ; [facility] Systemic lupus erythematosus PAIN MANAGE MENT FOLLOW UP with FELISHA L ARTHUR ANP-BC 06/30/2019 Last Documented On 9 3:12PM ; [facility] Chronic pain syndrome PAIN MANAGEMENT FO LLOW UP with FELISHA L ARTHUR ANP-BC 04/29/2019 Last Documented On 9 3:17PM ; [facility] Fibromyalgia PAIN MANAGEMENT FOLLOW UP with T MULU L ARTHUR ANP-BC 04/29/2019 Last Documented On 9 3:17PM ; [facility] Lumbar radiculopathy PAIN MANAGEMENT FOL LOW UP with FELISHA L ARTHUR ANP-BC 04/29/2019 Last Documented On 9 3:17PM ; [facility] Lumbosacral spinal stenosis PAIN MANAGEM ENT FOLLOW UP with FELISHA L ARTHUR ANP-BC 04/29/2019 Last Documented On 9 3:17PM ; [facility] Myalgia PAIN MANAGEMENT FOLLOW UP with T MULU L ARTHUR ANP-BC 04/29/2019 Last Documented On 9 3:17PM ; [facility] Sacroiliitis PAIN MANAGEMENT FOLLOW UP with T MULU L ARTHUR ANP-BC 04/29/2019 Last Documented On 9 3:17PM ; [facility] Systemic lupus erythematosus PAIN MANAGE MENT FOLLOW UP with FELISHA L ARHTUR ANP-BC 04/29/2019 Last Documented On 9 3:17PM ; [facility] Chronic pain syndrome PAIN MANAGEMENT FO LLOW UP with FELISHA L ARTHUR ANP-BC 02/05/2019 Last Documented On 9 3:56PM ; [facility] Fibromyalgia PAIN MANAGEMENT FOLLOW UP with T MULU L ARTHUR ANP-BC 02/05/2019 Last Documented On 9 3:56PM ; [facility] Lumbar radiculopathy PAIN MANAGEMENT FOL LOW UP with FELISHA L ARTHUR ANP-BC 02/05/2019 Last Documented On 9 3:56PM ; [facility] Lumbosacral spinal stenosis PAIN MANAGEM ENT FOLLOW UP with FELISHA L ARTHUR ANP-BC 02/05/2019 Last Documented On 9 3:56PM ; [facility] Myalgia PAIN MANAGEMENT FOLLOW UP with T MULU L ARTHUR ANP-BC 02/05/2019 Last Documented On 9 3:56PM ; [facility] Sacroiliitis PAIN MANAGEMENT FOLLOW UP with T MULU L ARTHUR ANP-BC 02/05/2019 Last Documented On 9 3:56PM ; [facility] Systemic lupus erythematosus PAIN MANAGE MENT FOLLOW UP with FELISHA L ARTHUR ANP-BC 02/05/2019 Last Documented On 9 3:56PM ; [facility] Chronic pain syndrome PAIN MANAGEMENT FO LLOW UP with FELISHA L ARTHUR ANP-BC 11/28/2018 Last Documented On 9 3:13PM ; [facility] Fibromyalgia PAIN MANAGEMENT FOLLOW UP with T MULU L ARTHUR ANP-BC 11/28/2018 Last Documented On 9 3:13PM ; [facility] Lumbar radiculopathy PAIN MANAGEMENT FOL LOW UP with FELISHA L ARTHUR ANP-BC 11/28/2018 Last Documented On 9 3:13PM ; [facility] Lumbosacral spinal stenosis PAIN MANAGEM ENT FOLLOW UP with FELISHA L ARTHUR ANP-BC 11/28/2018 Last Documented On 9 3:13PM ; [facility] Myalgia PAIN MANAGEMENT FOLLOW UP with T MULU L ARTHUR ANP-BC 11/28/2018 Last Documented On 9 3:13PM ; [facility] Sacroiliitis PAIN MANAGEMENT FOLLOW UP with T MULU L ARTHUR ANP-BC 11/28/2018 Last Documented On 9 3:13PM ; [facility] Systemic lupus erythematosus PAIN MANAGE MENT FOLLOW UP with FELISHA L ARTHUR ANP-BC 11/28/2018 Last Documented On 9 3:13PM ; [facility] Chronic pain syndrome PAIN MANAGEMENT FO LLOW UP with FELISHA L ARTHUR ANP-BC 10/31/2018 Last Documented On 9 2:44PM ; [facility] Fibromyalgia PAIN MANAGEMENT FOLLOW UP with T MULU L ARTHUR ANP-BC 10/31/2018 Last Documented On 9 2:44PM ; [facility] Lumbar radiculopathy PAIN MANAGEMENT FOL LOW UP with FELISHA L ARTHUR ANP-BC 10/31/2018 Last Documented On 9 2:44PM ; [facility] Lumbosacral spinal stenosis PAIN MANAGEM ENT FOLLOW UP with FELISHA L RATHUR ANP-BC 10/31/2018 Last Documented On 9 2:44PM ; [facility] Myalgia PAIN MANAGEMENT FOLLOW UP with T MULU L ARTHUR ANP-BC 10/31/2018 Last Documented On 9 2:44PM ; [facility] Sacroiliitis PAIN MANAGEMENT FOLLOW UP with T MULU L ARTHUR ANP-BC 10/31/2018 Last Documented On 9 2:44PM ; [facility] Systemic lupus erythematosus PAIN MANAGE MENT FOLLOW UP with FELISHA L ARTHUR ANP-BC 10/31/2018 Last Documented On 9 2:44PM ; [facility] Chronic pain syndrome PAIN MANAGEMENT NE W CONSULT with FELISHA L ARTHUR ANP-BC 10/03/2018 Last Documented On 9 9:56AM ; [facility] Localized lumbar osteoarthritis PAIN MAN AGEMENT NEW CONSULT with FELISHA L ARTHUR ANP-BC 10/03/2018 Last Documented On 9 9:56AM ; [facility] Lumbosacral spinal stenosis PAIN MANAGEM ENT NEW CONSULT with FELISHA ZENGS [facility] 10/03/2018 Last Documented On 9 9:56AM ; [facility] Myalgia PAIN MANAGEMENT NEW CONSULT with FELISHA BHATVINS [facility] 10/03/2018 Last Documented On 9 9:56AM ; [facility] Sacroiliitis PAIN MANAGEMENT NEW CONSULT with FELISHAMOISES BHATVINS [facility] 10/03/2018 Last Documented On 9 9:56AM ; [facility] Systemic lupus erythematosus PAIN MANAGE MENT NEW CONSULT with FELISHAMOISES BHATVINS [facility] 10/03/2018 Last Documented On 9 9:56AM ; [facility] Instructions Includes: Instructions for all patient encounters Education and Decision Aids were provided during visit for: Pill Count: 25 HYSINGLA Last Documented On 4 8:54AM ; [facility] Pill Count: two HYSINGLA Last Documented On 4 9:14AM ; [facility] Pill Count: HYDROCODONE ~out of medication Last Documented On 4 9:14AM ; [facility] Pill Count: two HYSINGLA Last Documented On 4 11:00AM ; [facility] [facility] Pill Count: HYDROCODONE ~out of medication Last Documented On 4 11:43AM ; [facility] Pill Count: HYDROCODONE ~out of medication Last Documented On 4 9:34AM ; [facility] Pill Count: HYDROCODONE ~out of medication Last Documented On 4 10:37AM ; [facility] Pill Count: HYDROCODONE ~out of medication Last Documented On 4 1:44PM ; [facility] Pill Count: two HYDROCODONE Last Documented On 4 1:15PM ; [facility] Patient education about adve rse reactions to medication Last Documented On 3 10:43AM ; [facility] Reviewed side effects and Ri sks/Benefits analysis Last Documented On 3 10:43AM ; [facility] Pill Count: 19 HYDROCODONE Last Documented On 3 2:06PM ; [facility] Pill Count: 19 HYDROCODONE Last Documented On 3 10:39AM ; [facility] Pill Count: 50 HYDROCODONE Last Documented On 3 10:50AM ; [facility] Pill Count: one HYDROCODONE Last Documented On 3 3:49PM ; [facility] Pill Count: six HYDROCODONE Last Documented On 3 10:14AM ; [facility] Pill Count: 38 HYDROCODONE Last Documented On 3 1:23PM ; [facility] Pill Count: 49 HYDROCODONE Last Documented On 2 10:01AM ; [facility] Pill Count: 62 HYDROCODONE Last Documented On 2 3:28PM ; [facility] Pill Count: 61 HYDROCODONE Last Documented On 2 4:14PM ; [facility] Pill Count: 62 HYDROCODONE Last Documented On 2 4:21PM ; [facility] Pill Count: Patient did not bring pain medication to appointment for pill count, per policy. Advised in order to continue to safely prescribe opioids, medication must be brought to each appointment Last Documented On 2 4:14PM ; [facility] Pill Count: 82 HYDROCODONE Last Documented On 2 3:55PM ; [facility] Pill Count: Patient did not bring pain medication to appointment for pill count, per policy. Advised in order to continue to safely prescribe opioids, medication must be brought to each appointment Last Documented On 2 4:19PM ; [facility] Pill Count: Patient did not bring pain medication to appointment for pill count, per policy. Advised in order to continue to safely prescribe opioids, medication must be brought to each appointment Last Documented On 1 1:41PM ; [facility] Pill Count: five Not Appropr iate Had surgery and did not fill the pain med that was given after suregery Last Documented On 1 1:11PM ; [facility] Pill Count: 21 Appropriate Last Documented On 1 3:19PM ; [facility] Pill Count: 21 Appropriate Last Documented On 1 5:34PM ; [facility] Pill Count: 21 Appropriate Last Documented On 1 5:23PM ; [facility] Pill Count: ten Not Appropri ate ; discussed taking only as prescribed for back pain not myalgia symptoms related to covid Last Documented On 1 3:58PM ; [facility] Pill Count: 0 Last Documented On 0 3:51PM ; [facility] Pill Count: Patient did not bring pain medication to appointment for pill count, per policy. Advised in order to continue to safely prescribe opioids, medication must be brought to each appointment Last Documented On 0 3:02PM ; [facility] Pill Count: two Appropriate Last Documented On 0 7:51AM ; [facility] Pill Count: seven Appropriat e Last Documented On 0 10:51AM ; [facility] Pill Count: three Appropriat e Last Documented On 0 12:30PM ; [facility] Pill Count: seven Appropriat e Last Documented On 9 9:53AM ; [facility] Medical Equipment - Implanted Devices Includes: Current and historical Devices No Medical Equipment Recorded Medications Includes: Current and historical Medications Current Medications (continue as prescribed) Narcan 4 MG/0.1ML Nasal Liquid 01/21/2024 Provider: FELISHA SENIOR Diagnosis: Spinal stenosis, lumbar region with neurogenic claudication as directed Last Documented On 4 2:31PM By FELISHA SENIOR ; [facility] Hysingla ER 20 MG Oral Table t ER 24 Hour Abuse-Deterrent 01/21/2024 Provider: FELISHA SENIOR Diagnosis: Spinal stenosis, lumbar region with neurogenic claudication 1 tablet q 24 hours Last Documented On 4 2:31PM By FELISHA SENIOR ; [facility] oxyCODONE-Acetaminophen 10-325 MG Oral Tablet 01/15/20 Provider: Diagnosis: Last Documented On 02/01/2024 8:52AM By Lilli MAK ; [facility] traZODone HCl 100 MG Oral Tablet 11/02/2023 Provider : Diagnosis: Last Documented On 4 10:13AM By Lilli MAK ; [facility] Cyclobenzaprine HCl 10 MG Oral Tablet 10/29/2023 Pro vider: REFUGIO AMARO MD Diagnosis: Last Documented On 4 10:15AM By Lilli MAK ; [facility] Ketoconazole 2% External Cream 10/29/2023 Provider: REFUGIO AMARO MD Diagnosis: Last Documented On 4 10:15AM By Lilli MAK ; [facility] hydrOXYzine HCl 50 MG Oral Tablet 10/26/2023 Provide r: Diagnosis: Last Documented On 4 10:16AM By Lilli MAK ; [facility] Anastrozole 1 MG Oral Tablet 10/24/2023 Provider: Diagnosis: Last Documented On 4 10:16AM By Lilli MAK ; [facility] FeroSul 325 (65 Fe) MG Oral Tablet 10/24/2023 Provid er: Diagnosis: Last Documented On 4 10:18AM By Lilli MAK ; [facility] Venlafaxine HCl ER 225 MG Oral Tablet Extended R elease 24 Hour 10/23/2023 Provider: Diagnosis: Last Documented On 4 10:18AM By Lilli MAK ; [facility] Pregabalin 200 MG Oral Capsule 10/08/2023 [facility] Diagnosis: Fibromyalgia TAKE 1 CAPSULE BY MOUTH TWICE DAILY Last Documented On 4 1:51PM By FELISHA WU ; [facility] Omeprazole 40 MG Oral Capsule Delayed Release 08/11/20 23 Provider: Diagnosis: Last Documented On 4 10:17AM By Lilli MAK ; [facility] Lisinopril 40 MG Oral Tablet 04/11/2023 Provider: REFUGIO AMARO MD Diagnosis: Last Documented On 3 10:40AM By Lilli MAK ; [facility] Famotidine 20 MG Oral Tablet 01/23/2023 Provider: Diagnosis: Last Documented On 02/05/2023 4:01PM By Lilli MAK ; [facility] ARIPiprazole 2 MG Oral Tablet 01/09/2023 Provider: Diagnosis: Last Documented On 02/05/2023 4:04PM By Lilli MAK ; [facility] busPIRone HCl 15 MG Oral Tablet 09/20/2022 Provider: Diagnosis: Last Documented On 02/05/2023 4:05PM By Lilli MAK ; [facility] NIFEdipine ER 30 MG Oral Tab let Extended Release 24 Hour 05/04/2022 Provider: REFUGIO AMARO MD Diagnosis: Last Documented On 05/09/2022 3:25PM By Lilli MAK ; [facility] Metoprolol Succinate ER 200M G Oral Tablet Extended Release 24 Hour 10/03/2018 Provider: Diagnosis: Last Documented On 9 3:00PM By VENKAT MAK ; [facility] Past Medications on file Hysingla ER 20 MG Oral Tablet ER 24 Hour Abuse-Deterrent 12/17/2023 - 01/18/2024 Provider: FELISHA SENIOR Diagnosis: Spinal stenosis, lumbar region with neurogenic claudication 1 tablet q 24 hours Last Documented On 4 2:27PM By FELISHA SENIOR ; [facility] Hysingla ER 20 MG Oral Tablet ER 24 Hour Abuse-Deterrent 11/14/2023 - 12/17/2023 Provider: FELISHA SENIOR Diagnosis: Spinal stenosis, lumbar region with neurogenic claudication 1 tablet q 24 hours Last Documented On 4 11:11AM By FELISHA SENIOR ; [facility] Aspirin 325 MG Oral Tablet 10/28/2023 - 11/07/2023 Pro vider: Diagnosis: Last Documented On 4 10:36AM By FELISHA SENIOR ; [facility] HYDROcodone-Acetaminophen 5- 325 MG Oral Tablet 10/08/2023 - 11/23/2023 Provider: FELISHA SENIOR Diagnosis: Other spondylosis, lumbar region 1 every 6 hours as needed for severe pain, max 4 /day Last Documented On 4 10:38AM By Yojana Shaw RN ; [facility] HYDROcodone-Acetaminophen 5- 325 MG Oral Tablet 09/06/2023 - 10/08/2023 Provider: FELISHA SENIOR Diagnosis: Other spondylosis, lumbar region 1 every 6 hours as needed for severe pain, max 4 /day Last Documented On 4 1:42PM By FELISHA SENIOR ; [facility] HYDROcodone-Acetaminophen 5- 325 MG Oral Tablet 08/06/2023 - 09/04/2023 Provider: FELISHA SENIOR Diagnosis: Other spondylosis, lumbar region 1 every 6 hours as needed for severe pain, max 4 /day Last Documented On 4 8:13AM By FELISHA SENIOR ; [facility] HYDROcodone-Acetaminophen 5- 325 MG Oral Tablet 07/05/2023 - 08/06/2023 Provider: FELISHA SENIOR Diagnosis: Other spondylosis, lumbar region 1 every 6 hours as needed fo r severe pain, max 4/day11 Last Documented On 3 12:26PM By FELISHA SENIOR ; [facility] Pregabalin 200 MG Oral Capsule 07/05/2023 - 10/08/2023 Provider: FELISHA SENIOR Diagnosis: Fibromyalgia TAKE 1 CAPSULE BY MOUTH TWICE DAILY Last Documented On 4 1:42PM By FELISHA SENIOR ; [facility] Pregabalin 200 MG Oral Capsule 06/11/2023 - 07/05/2023 Provider: NYDIA YUN COUNSELING SERVICES DIRECTOR-FPA, [employer] Diagnosis: Fibromyalgia TAKE 1 CAPSULE BY MOUTH TWICE DAILY Last Documented On 3 10:52AM By FELISHA SENIOR ; [facility] HYDROcodone-Acetaminophen 5- 325 MG Oral Tablet 06/04/2023 - 07/05/2023 Provider: FELISHA SENIOR Diagnosis: Other spondylosis, lumbar region 1 every 6 hours as needed for severe pain, max 4 /day Last Documented On 3 10:52AM By FELISHA SENIOR ; [facility] HYDROcodone-Acetaminophen 5- 325 MG Oral Tablet 05/08/2023 - 06/04/2023 Provider: NYDIA YUN COUNSELING SERVICES DIRECTOR-FPA, BIRD Diagnosis: Other spondylosis, lumbar region 1 every 6 hours as needed fo r severe pain, max 4/day Last Documented On 3 1:44PM By FELISHA SENIOR ; [facility] HYDROcodone-Acetaminophen 5- 325 MG Oral Tablet 04/05/2023 - 05/08/2023 Provider: FELISHA SENIOR Diagnosis: Other spondylosis, lumbar region 1 every 6 hours as needed for severe pain, max 4 /day Last Documented On 3 12:02PM By NYDIA GARCIAP-BC ; [facility] HYDROcodone-Acetaminophen 5- 325 MG Oral Tablet 03/02/2023 - 04/05/2023 Provider: FELISHA SENIOR Diagnosis: Other spondylosis, lumbar region 1 every 6 hours as needed for severe pain, max 4 /day Last Documented On 3 11:56AM By FELISHA SENIOR ; [facility] HYDROcodone-Acetaminophen 5- 325 MG Oral Tablet 02/05/2023 - 03/01/2023 Provider: FELISHA SENIOR Diagnosis: Other spondylosis, lumbar region 1 every 6 hours as needed for severe pain, max 4 /day Last Documented On 3 12:02PM By FELISHA SENIOR ; [facility] Vitamin D (Ergocalciferol) 1 .25 MG (88618 UT) Oral Capsule 01/20/2023 - 11/07/2023 Provider: Diagnosis: Last Documented On 4 10:13AM By Lilli MAK ; [facility] HYDROcodone-Acetaminophen 5- 325 MG Oral Tablet 01/05/2023 - 02/05/2023 Provider: FELISHA SENIOR Diagnosis: Other spondylosis, lumbar region 1 every 6 hours as needed for severe pain, max 4 /day Last Documented On 3 4:23PM By FELISHA SENIOR ; [facility] HYDROcodone-Acetaminophen 5- 325 MG Oral Tablet 12/05/2022 - 01/05/2023 Provider: FELISHA SENIOR Diagnosis: 1 every 6 hours as needed for severe pain, max 4 /day Last Documented On 3 2:45PM [facility] ; [facility] Pregabalin 200 MG Oral Capsule 11/28/2022 - 06/11/2023 Provider: FELISHA SENIOR Diagnosis: Fibromyalgia TAKE 1 CAPSULE BY MOUTH TWICE DAILY Last Documented On 3 11:59AM [facility] ; [facility] HYDROcodone-Acetaminophen 5- 325 MG Oral Tablet 11/03/2022 - 12/04/2022 Provider: NYDIA FRANKEL [employer] Diagnosis: 1 every 6 hours as needed for severe pain, max 4 /day Last Documented On 3 8:33AM By [facility] ; [facility] HYDROcodone-Acetaminophen 5- 325 MG Oral Tablet 10/06/2022 - 11/03/2022 Provider: NYDIA FRANKEL [employer] Diagnosis: 1 every 6 hours as needed for severe pain Last Documented On 3 1:24PM By NYDIA YUN [facility] ; [facility] Anastrozole 1 MG Oral Tablet 09/19/2022 - 11/07/2023 Areli mooreder: Diagnosis: Last Documented On 4 10:16AM By Lilli Yung Alexi ; [facility] HYDROcodone-Acetaminophen 5- 325 MG Oral Tablet 09/06/2022 - 10/06/2022 Provider: NYDIA FRANKEL [employer] Diagnosis: 1 every 6 hours as needed for severe pain Last Documented On 3 4:40PM By NYDIA YUN [facility] ; [facility] Pregabalin 200 MG Oral Capsule 08/17/2022 - 11/28/2022 Provider: FELISHA WU Diagnosis: Fibromyalgia TAKE 1 CAPSULE BY MOUTH TWICE DAILY Last Documented On 3 2:12PM By FELISHA SENIOR ; [facility] HYDROcodone-Acetaminophen 5- 325 MG Oral Tablet 07/31/2022 - 09/05/2022 Provider: NYDIA YUN APRN-NORYA, [employer] Diagnosis: 1 every 6 hours as needed Last Documented On 3 2:51PM By NYDIA GARCIAP- ; [facility] HYDROcodone-Acetaminophen 5- 325 MG Oral Tablet 06/29/2022 - 07/31/2022 Provider: FELISHA WUBC Diagnosis: 1 every 6 hours as needed Last Documented On 2 12:48PM By NYDIA YUN [facility] ; [facility] Ketoconazole 2% External Cream 05/30/2022 - 03/23/2023 Provider: REFUGIO AMARO MD Diagnosis: Last Documented On 3 10:47AM By Lilli Yung Alexi ; [facility] HYDROcodone-Acetaminophen 5- 325 MG Oral Tablet 05/24/2022 - 06/28/2022 Provider: FELISHA WUBC Diagnosis: 1 every 6 hours as needed Last Documented On 2 1:39PM By FELISHA HERRERA-BC ; [facility] Pregabalin 200 MG Oral Capsule 05/09/2022 - 08/17/2022 Provider: FELISHA WUBC Diagnosis: Fibromyalgia TAKE 1 CAPSULE BY MOUTH TWICE DAILY Last Documented On 2 10:30AM By FELISHA WUBC ; [facility] HYDROcodone-Acetaminophen 5- 325 MG Oral Tablet 04/24/2022 - 05/24/2022 Provider: FELISHA WUBC Diagnosis: 1 every 6 hours as needed Last Documented On 2 3:42PM By FELISHA WUBC ; [facility] HYDROcodone-Acetaminophen 5- 325 MG Oral Tablet 03/20/2022 - 04/24/2022 Provider: FELISHA WUBC Diagnosis: 1 every 6 hours as needed Last Documented On 2 5:32PM By FELISHA WUBC ; [facility] HYDROcodone-Acetaminophen 5- 325 MG Oral Tablet 02/16/2022 - 03/20/2022 Provider: NYDIA G 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, [employer] Diagnosis: 1 every 6 hours as needed Last Documented On 2 4:51PM By FELISHA WUBC ; [facility] HYDROcodone-Acetaminophen 5- 325 MG Oral Tablet 01/09/2022 - 02/16/2022 Provider: FELISHA WUBC Diagnosis: 1 every 6 hours as needed Last Documented On 2 10:58AM By NYDIA YUN [employer]-BC ; [facility] HYDROcodone-Acetaminophen 5- 325 MG Oral Tablet 12/09/2021 - 01/06/2022 Provider: FELISHA WUBC Diagnosis: 1 every 6 hours as needed Last Documented On 2 8:16AM By FELISHA HERRERA-BC ; [facility] Pregabalin 200 MG Oral Capsule 11/21/2021 - 05/09/2022 Provider: FELISHA WUBC Diagnosis: TAKE 1 CAPSULE BY MOUTH TWICE DAILY Last Documented On 2 3:53PM By FELISHA HERRERA-BC ; [facility] HYDROcodone-Acetaminophen 5- 325 MG Oral Tablet 11/10/2021 - 12/09/2021 Provider: FELISHA WUBC Diagnosis: 1 every 6 hours as needed Last Documented On 2 11:56AM By FELISHA WUBC ; [facility] HYDROcodone-Acetaminophen 5- 325 MG Oral Tablet 10/13/2021 - 11/10/2021 Provider: FELISHA WUBC Diagnosis: 1 every 6 hours as needed Last Documented On 2 6:01PM By FELISHA HERRERA-BC ; [facility] HYDROcodone-Acetaminophen 5- 325 MG Oral Tablet 09/06/2021 - 10/12/2021 Provider: FELISHA WUBC Diagnosis: 1 every 6 hours as needed Last Documented On 2 9:12AM By FELISHA WUBC ; [facility] Pregabalin 200 MG Oral Capsule 08/15/2021 - 11/21/2021 Provider: FELISHA WUBC Diagnosis: TAKE 1 CAPSULE BY MOUTH TWICE DAILY Last Documented On 2 11:37AM By FELISHA SENIOR ; [facility] HYDROcodone-Acetaminophen 5- 325 MG Oral Tablet 08/12/2021 - 09/06/2021 Provider: FELISHA SENIOR Diagnosis: Other spondylosis, cervical region 1 every 6 hours as needed Last Documented On 2 5:13PM By FELISHA SENIOR ; [facility] HYDROcodone-Acetaminophen 7. 5-325 MG Oral Tablet 07/11/2021 - 08/12/2021 Provider: FELISHA SENIOR Diagnosis: 1 po tid prn Last Documented On 1 12:06PM By FELISHA SENIOR ; [facility] HYDROcodone-Acetaminophen 7. 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: Last Documented On 02/05/2023 4:02PM By Lilli MAK ; [facility] Pregabalin 150 MG Oral Capsule 05/30/2021 - 07/01/2021 Provider: FELISHA SENIOR Diagnosis: TAKE 1 CAPSULE BY MOUTH TWICE DAILY Last Documented On 1 9:21AM By FELISHA SENIOR ; [facility] HYDROcodone-Acetaminophen 5- 325 MG Oral Tablet 05/10/2021 - 07/01/2021 Provider: FELISHA SENIOR Diagnosis: 1 every 6 hours as needed Last Documented On 1 9:22AM By FELISHA SENIOR ; [facility] Pregabalin 150 MG Oral Capsule 04/13/2021 - 05/30/2021 Provider: FELISHA SENIOR Diagnosis: Fibromyalgia 1 CAPSULE TWO TIMES A DAY Last Documented On 1 5:36PM By FELISHA SENIOR ; [facility] Pregabalin 75 MG Oral Capsule 04/13/2021 - 06/14/2021 Provider: FELISHA SENIOR Diagnosis: Fibromyalgia 1 CAPSULE TWO TIMES A DAY Last Documented On 06/14/2021 1:42PM By Lilli MAK ; [facility] HYDROcodone-Acetaminophen 5- 325 MG Oral Tablet 04/13/2021 - 05/05/2021 Provider: FELISHA SENIOR 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, lumbar region 1 every 6 hours as needed Last Documented On 1 10:51AM By FELISHA SENIOR ; [facility] HYDROcodone-Acetaminophen 5- 325 MG Oral Tablet 2021 - 04/13/2021 Provider: FELISHA SENIOR Diagnosis: 1 po q 6-8 hours prn/ max 3 per day Last Documented On 1 1:37PM By FELISHA SEINOR ; [facility] HYDROcodone-Acetaminophen 5- 325 MG Oral Tablet 02/14/2021 - 2021 Provider: FELISHA SENIOR Diagnosis: Cervicalgia 1 po q 6-8 hours prn/ max 3 per day Last Documented On 1 4:57PM By FELISHA SENIOR ; [facility] HYDROcodone-Acetaminophen 5- 325 MG Oral Tablet 01/11/2021 - 02/11/2021 Provider: FELISHA SENIOR Diagnosis: Chronic pain syndrome 1 po q 6-8 hours prn/ max 3 per day Last Documented On 1 10:14AM By FELISHA SENIOR ; [facility] HYDROcodone-Acetaminophen 5- 325 MG Oral Tablet 12/13/2020 - 01/10/2021 Provider: FELISHA SENIOR Diagnosis: Chronic pain syndrome 1 po q 6-8 hours prn/ max 3 per day Last Documented On 1 5:12PM By FELISHA SENIOR ; [facility] HYDROcodone-Acetaminophen 5- 325 MG Oral Tablet 11/15/2020 - 12/13/2020 Provider: FELISHA SENIOR Diagnosis: Chronic pain syndrome 1 po q 6-8 hours prn Last Documented On 1 5:03PM By FELISHA SENIOR ; [facility] HYDROcodone-Acetaminophen 5- 325 MG Oral Tablet 10/07/2020 - 11/15/2020 Provider: FELISHA SENIOR Diagnosis: Chronic pain syndrome 1 po q 6-8 hours prnThis is 15 day rx Last Documented On 1 4:59PM By FELISHA SENIOR ; [facility] [place] 5-325 MG Oral Tablet 09/13/2020 - 2021 Provider: FELISHA SENIOR Diagnosis: Spinal stenosis, lumbosacral region 1 po q 6 hours prn/ not 4 da chano every daylast 30 days Last Documented On 1 3:39PM By FELISHA SENIOR ; [facility] Pregabalin 150 MG Oral Capsule 08/24/2020 - 04/13/2021 Provider: FELISHA SENIOR Diagnosis: Fibromyalgia TAKE 1 CAPSULE BY MOUTH TWICE DAILY Last Documented On 04/13/2021 1:12PM By Jonelle MAK ; [facility] [place] 5-325 MG Oral Tablet 08/09/2020 - 09/13/2020 Provider: FELISHA SENIOR Diagnosis: Spinal stenosis, lumbosacral region 1 po q 6 hours prn/ not 4 da chano every daylast 30 daysto fill 08/11/20 Last Documented On 1 5:32PM By FELISHA SENIOR ; [facility] [place] 5-325 MG Oral Tablet 07/13/2020 - 08/09/2020 Provider: FELISHA SENIOR Diagnosis: Spinal stenosis, lumbosacral region 1 po q 6 hours prn/ not 4 da chano every daylast 30 days Last Documented On 0 6:28PM By FELISHA SENIOR ; [facility] [place] 5-325 MG Oral Tablet 06/10/2020 - 07/12/2020 Provider: FELISHA SENIOR Diagnosis: Spinal stenosis, lumbosacral region 1 po q 6 hours prn/ not 4 da chano every daylast 30 days Last Documented On 0 9:04AM By FELISHA SENIOR ; [facility] [place] 5-325 MG Oral Tablet 05/11/2020 - 06/10/2020 Provider: FELISHA SENIOR Diagnosis: Spinal stenosis, lumbosacral region 1 po q 6 hours prn/ not 4 da chano every daylast 30 days Last Documented On 0 4:06PM By FELISHA SENIOR ; [facility] Pregabalin 150 MG Oral Capsule 05/03/2020 - 08/24/2020 Provider: FELISHA SENIOR Diagnosis: Fibromyalgia TAKE 1 CAPSULE BY MOUTH TWICE DAILY Last Documented On 0 3:10PM By FELISHA SENIOR ; [facility] [place] 5-325 MG Oral Tablet 04/12/2020 - 05/11/2020 Provider: FELISHA SENIOR Diagnosis: Spinal stenosis, lumbosacral region 1 poTID prn Last Documented On 0 3:27PM By FELISHA SENIOR ; [facility] [place] 24 MCG Oral Capsule 04/06/2020 - 2021 Provider: FELISHA SENIOR Diagnosis: Constipation, unspecified TAKE 1 CAPSULE BY MOUTH TWICE DAILY Last Documented On 2021 3:29PM By Jonelle MAK ; [facility] [place] 5-325 MG Oral Tablet 03/09/2020 - 04/09/2020 Provider: FELISHA SENIOR Diagnosis: Spinal stenosis, lumbosacral region 1 poTID prnto fill 03/10/20 Last Documented On 0 5:17PM By FELISHA SENIOR ; [facility] [place] 24 MCG Oral Capsule 02/09/2020 - 04/06/2020 Provider: FELISHA SENIOR Diagnosis: Constipation, unspecified 1 CAPSULE TWO TIMES A DAY Last Documented On 0 2:59PM By FELISHA SENIOR ; [facility] [place] 5-325 MG Oral Tablet 02/09/2020 - 03/09/2020 Provider: FELISHA SENIOR Diagnosis: Spinal stenosis, lumbosacral region 1 poTID prn Last Documented On 0 2:43PM By FELISHA SENIOR ; [facility] Pregabalin 150 MG Oral Capsule 01/30/2020 - 05/03/2020 Provider: FELISHA SENIOR Diagnosis: Fibromyalgia 1 CAPSULE TWO TIMES A DAY Last Documented On 0 9:03AM By FELISHA SENIOR ; [facility] [place] 5-325 MG Oral Tablet 01/08/2020 - 02/09/2020 Provider: FELISHA SENIOR Diagnosis: Spinal stenosis, lumbosacral region 1 poTID prnto fill 01/10/20 Last Documented On 0 2:57PM By FELISHA SENIOR ; [facility] [place] 5-325 MG Oral Tablet 12/10/2019 - 01/08/2020 Provider: FELISHA SENIOR Diagnosis: Low back pain 1 poTID prnto fill 12/11/19 Last Documented On 0 10:55AM By FELISHA SENIOR ; [facility] [place] 5-325 MG Oral Tablet 11/11/2019 - 12/09/2019 Provider: FELISHA SENIOR Diagnosis: Low back pain 1 poTID prn Last Documented On 0 2:38PM By FELISHA SENIOR ; [facility] [place] 150 MG Oral Capsule 10/10/2019 - 05/11/2020 Provider: FELISHA SENIOR Diagnosis: Fibromyalgia TAKE 1 CAPSULE BY MOUTH TWICE DAILY Last Documented On 0 3:14PM By FELISHA SENIOR ; [facility] [place] 5-325 MG Oral Tablet 10/09/2019 - 11/07/2019 Provider: FELISHA SENIOR Diagnosis: Low back pain 1 poTID prnto fill 10/11/19 Last Documented On 0 10:52AM By FELISHA SENIOR ; [facility] [place] 5-325 MG Oral Tablet 09/08/2019 - 10/08/2019 Provider: FELISHA SENIOR Diagnosis: Low back pain 1 poTID prn Last Documented On 0 8:45AM By FELISHA SENIOR ; [facility] [place] 5-325 MG Oral Tablet 08/07/2019 - 09/08/2019 Provider: FELISHA SENIOR Diagnosis: Low back pain 1 poTID prnto fill 08/08/19 Last Documented On 0 4:55PM By FELISHA SENIOR ; [facility] Ly[place] 150 MG Oral Capsule 07/09/2019 - 10/10/2019 Provider: FELISHA SENIOR Diagnosis: Fibromyalgia TAKE 1 CAPSULE BY MOUTH TWICE DAILY Last Documented On 0 12:32PM By FELISHA SENIOR ; [facility] [place] 5-325 MG Oral Tablet 07/09/2019 - 08/07/2019 Provider: FELISHA SENIOR Diagnosis: Low back pain 1 po BID prnto fill 07/10/19 Last Documented On 9 2:09PM By FELISHA SENIOR ; [facility] [place] 5-325 MG Oral Tablet 06/10/2019 - 07/08/2019 Provider: FELISHA SENIOR Diagnosis: Low back pain 1 po BID prn Last Documented On 9 8:51AM By FELISHA SENIOR ; [facility] Ly[place] 150 MG Oral Capsule 06/02/2019 - 07/08/2019 Provider: FELISHA SENIOR Diagnosis: Fibromyalgia TAKE 1 CAPSULE BY MOUTH TWICE DAILY Last Documented On 9 8:50AM By FELISHA SENIOR ; [facility] Xanax 0.5 MG Oral Tablet 04/29/2019 - 08/07/2019 Provi pan: FELISHA SENIOR Diagnosis: Low back pain as directed 1 po 1 hour prio r to procedure, 1 po 30 minutes prior to procedure and 1 immediately prior prn Last Documented On 9 2:03PM By FELISHA SENIOR ; [facility] [place] 5-325 MG Oral Tablet 04/29/2019 - 06/10/2019 Provider: FELISHA SENIOR Diagnosis: Low back pain 1 po BID prnto fill 05/01/19 Last Documented On 9 4:12PM By FELISHA SENIOR ; [facility] [place] 5-325MG Oral Tablet 04/03/2019 - 04/29/2019 Provider: FELISHA SENIOR Diagnosis: Low back pain 1 po BID prn Last Documented On 9 3:16PM By FELISHA SENIOR ; [facility] [place] 5-325MG Oral Tablet 2019 - 04/03/2019 Provider: FELISHA SENIOR Diagnosis: Low back pain 1 po BID prn Last Documented On 9 1:55PM By FELISHA SENIOR ; [facility] Ly[place] 150MG Oral Capsule 03/03/2019 - 06/02/2019 Provider: FELISHA SENIOR Diagnosis: Fibromyalgia TAKE 1 CAPSULE BY MOUTH TWICE DAILY Last Documented On 9 1:26PM By FELISHA SENIOR ; [facility] [place] 5-325MG Oral Tablet 01/31/2019 - 2019 Provider: FELISHA SENIOR Diagnosis: Low back pain 1 po BID prn Last Documented On 9 9:04AM By FELISHA SENIOR ; [facility] traMADol HCl 50MG Oral Tablet 01/28/2019 - 01/31/2019 Provider: FELISHA SENIOR Diagnosis: Fibromyalgia 1 po BID prn Last Documented On 9 11:57AM By Sydnee MAK ; [facility] [place] 150MG Oral Capsule 01/28/2019 - 03/03/2019 Provider: FELISHA SENIOR Diagnosis: Fibromyalgia TAKE 1 CAPSULE BY MOUTH TWICE DAILY Last Documented On 9 8:22AM By FELISHA SENIOR ; [facility] [place] 5-325MG Oral Tablet 12/26/2018 - 01/31/2019 Provider: FELISHA SENIOR Diagnosis: Low back pain 1 po BID prn Last Documented On 9 11:51AM By FELISHA SENIOR ; [facility] [place] 5-325MG Oral Tablet 11/28/2018 - 12/26/2018 Provider: FELISHA SENIOR Diagnosis: Low back pain 1 po BID prn Last Documented On 9 4:54PM By FELISHA SENIOR ; [facility] Lyrica 150MG Oral Capsule, conventional 11/28/2018 - 01/28/2019 Provider: FELISHA SENIOR Diagnosis: Fibromyalgia 1 CAPSULE TWO TIMES A DAY Last Documented On 9 9:31AM By FELISHA SENIOR ; [facility] traMADol HCl 50MG Oral Tablet 10/31/2018 - 01/28/2019 Provider: FELISHA SENIOR Diagnosis: Fibromyalgia as directed 1-2 po TID prn pain Last Documented On 9 3:10PM By FELISHA SENIOR ; [facility] [place] 150MG Oral Capsule 10/31/2018 - 11/28/2018 Provider: FELISHA SENIOR Diagnosis: Fibromyalgia 1 CAPSULE TWO TIMES A DAY Last Documented On 9 3:12PM By FELISHA SENIOR ; [facility] Gabapentin 100MG Oral Capsule 10/03/2018 - 06/24/2019 Provider: Diagnosis: 1 morning, 1 at noon, 3 tabs at bedtime Last Documented On 9 2:28PM By FELISHA WU ; [facility] Hydroxychloroquine Sulfate 200MG Oral Tablet 9 - 03/23/2023 Provider: Diagnosis: BID Last Documented On 3 10:47AM By Lilli MAK ; [facility] TraMADol HCl 50MG Oral Tablet 10/03/2018 - 06/25/2019 Provider: Diagnosis: Twice daily Last Documented On 9 11:22AM By FELISHA WU ; [facility] Levothyroxine Sodium 50MCG Oral Tablet 10/03/2018 - Provider: Diagnosis: Last Documented On 3 10:48AM By Lilli MAK ; [facility] Lisinopril 40MG Oral Tablet 10/03/2018 - 07/05/2023 Pr ovider: Diagnosis: Last Documented On 3 10:40AM By Lilli MAK ; [facility] Venlafaxine HCl 75MG Oral Tablet 10/03/2018 - 11/07/19 24 Provider: Diagnosis: Last Documented On 4 10:19AM By Lilli MAK ; [facility] Gabapentin 300MG Oral Capsule 10/03/2018 - 02/05/2019 Provider: FELISHA SENIOR Diagnosis: Systemic lupus erythematosus, unspecified as directed Last Documented On 9 3:41PM By FELISHA SENIOR ; [facility] Omeprazole 40MG Oral Capsule Delayed Release 9 - 02/05/2023 Provider: Diagnosis: Last Documented On 02/05/2023 4:03PM By Lilli AMK ; [facility] Medications Administered Includes: Administered Medications in patient's chart Medications Administered Diagnosis Date Pro vider Ketorolac Tromethamine 30 MG/ML IJ SOLN 0 03/23/2023 FELISHA SENIOR Last Documented On 3 11:03AM By Lilli MAK ; [facility] Results Includes: Results from 06/16/2024 through 06/16/2025 No Results Recorded For Specified Dates History of Present Illness History of Present Illness not supported for this document type No History of Present Illness Recorded Social History Description Last Updated Tobacco non-user 11/07/2023 Last Documented On 4 3:07PM ; [facility] Alcohol 07/31/2023 Last Documented On 3 2:52PM ; [facility] Consuming 5 or more drinks per day None 07/31/2023 Last Documented On 3 2:52PM ; [facility] Current nonsmoker 07/31/2023 Last Documented On 3 2:52PM ; [facility] Currently not in school 07/31/2023 Last Documented On 3 2:52PM ; [facility] Drug use 07/31/2023 Last Documented On 3 2:52PM ; [facility] Lives with spouse 07/31/2023 Last Documented On 3 2:52PM ; [facility] Non-smoker 07/31/2023 Last Documented On 3 2:52PM ; [facility] Not recovering alcoholic 07/31/2023 Last Documented On 3 2:52PM ; [facility] Not recovering from substance abuse 07/05 Last Documented On 3 2:52PM ; [facility] Number of times used recreat ional drug/ prescription drug for nonmedical reason. None 07/31/2023 Last Documented On 3 2:52PM ; [facility] No family problems 07/31/2023 Last Documented On 3 2:52PM ; [facility] No recent emotional stress 07/31/2023 Last Documented On 3 2:52PM ; [facility] Smoking status : Never smoker 08/07/2019 Last Documented On 9 9:54AM ; [facility] Currently 10/03/2018 Last Documented On 9 9:56AM ; [facility] No tobacco use 10/03/2018 Last Documented On 9 9:56AM ; [facility] Medical History Includes: Medical History in patient's chart Description Last Updated Reviewed and Unchanged 10/10/2019 Last Documented On 0 12:34PM ; [facility] Currently wearing eyeglasses 10/03/2018 Last Documented On 9 9:56AM ; [facility] Previously 3 time(s) 10/03/2018 Last Documented On 9 9:56AM ; [facility] History of arthritis 10/03/2018 Last Documented On 9 9:56AM ; [facility] History of cancer 10/03/2018 Last Documented On 9 9:56AM ; [facility] History of hypertension 10/03/2018 Last Documented On 9 9:56AM ; [facility] Family History Includes: Family History in patient's chart Description Last Updated Family history of kidney disease 019 Last Documented On 9 9:56AM ; [facility] Father Hypertension 10/03/2018 Last Documented On 9 9:56AM ; [facility] Mother Gun Shot Wound 9 Last Documented On 9 9:56AM ; [facility] Review of Systems Review of Systems not [...] Active Last Documented On 4 8:53AM ; [facility] Insurance Includes: Active Insurance Policies Plan Name Member ID Group # Subscriber Relationship Effect nieves Dates 1 - [facility] [id number] KATHY Sanchez Clinical Notes Includes: Signed Clinical Notes starting from 09/22/2022 No Clinical Notes Recorded
--- OUTSIDE RECORDS SUMMARY | 2025-06-16 17:37 | XMS_ITS | Clinical Summary ---
Author Organization [facility] Address [address] [place] [address] Phone Care Team Providers Care [employer] Name Role Phone NILESH DUKE MD Primary Care Provider [phone] Reason for Visit and Chief Complaint * PHONE CALL Problems Includes: Problems addressed during this encounter and other active Problems All Visits Onset Date Resolved Date Provider Condition S tatus Chronic Pain Syndrome 07/31/2023 NURY ECHAVARRIA PMHNP Active Last Documented On 3 1:32PM ; [facility] Plan of Treatment No Plan of [...] On 4 2:31PM By FELISHA WUBC ; [facility] Hysingla ER 20 MG Oral Table t ER 24 Hour Abuse-Deterrent 01/21/2024 Provider: FELISHA FREEMAN ANP-BC Diagnosis: Spinal stenosis, lumbar region with neurogenic claudication 1 tablet q 24 hours Last Documented On 4 2:31PM By FELISHA SENIOR ; [facility] oxyCODONE-Acetaminophen 10-325 MG Oral Tablet 01/15/20 24 Provider: Diagnosis: Last Documented On 02/01/2024 8:52AM By Lilli MAK ; [facility] traZODone HCl 100 MG Oral Tablet 11/02/2023 Provider : Diagnosis: Last Documented On 4 10:13AM By Lilli MAK ; [facility] Cyclobenzaprine HCl 10 MG Oral Tablet 10/29/2023 Pro vider: REFUGIO AMARO MD Diagnosis: Last Documented On 4 10:15AM By Lilli MAK ; [facility] Ketoconazole 2% External Cream 10/29/2023 Provider: REFUGIO AMARO MD Diagnosis: Last Documented On 4 10:15AM By Lilli MAK ; [facility] hydrOXYzine HCl 50 MG Oral Tablet 10/26/2023 Provide r: Diagnosis: Last Documented On 4 10:16AM By Lilli MAK ; [facility] Anastrozole 1 MG Oral Tablet 10/24/2023 Provider: Diagnosis: Last Documented On 4 10:16AM By Lilli MAK ; [facility] FeroSul 325 (65 Fe) MG Oral Tablet 10/24/2023 Provid er: Diagnosis: Last Documented On 4 10:18AM By Lilli MAK ; [facility] Venlafaxine HCl ER 225 MG Oral Tablet Extended R elease 24 Hour 10/23/2023 Provider: Diagnosis: Last Documented On 4 10:18AM By Lilli MAK ; [facility] Pregabalin 200 MG Oral Capsule 10/08/2023 Provider: FELISHA SENIOR Diagnosis: Fibromyalgia TAKE 1 CAPSULE BY MOUTH TWICE DAILY Last Documented On 4 1:51PM By FELISHA SENIOR ; [facility] Omeprazole 40 MG Oral Capsule Delayed Release 08/11/20 Provider: Diagnosis: Last Documented On 4 10:17AM By Lilli MAK ; [facility] Lisinopril 40 MG Oral Tablet 04/11/2023 Provider: REFUGIO AMARO MD Diagnosis: Last Documented On 3 10:40AM By Lilli MAK ; [facility] Famotidine 20 MG Oral Tablet 01/23/2023 Provider: Diagnosis: Last Documented On 02/05/2023 4:01PM By Lilli MAK ; [facility] ARIPiprazole 2 MG Oral Tablet 01/09/2023 Provider: Diagnosis: Last Documented On 02/05/2023 4:04PM By Lilli MAK ; [facility] busPIRone HCl 15 MG Oral Tablet 09/20/2022 Provider: Diagnosis: Last Documented On 02/05/2023 4:05PM By Lilli MAK ; [facility] NIFEdipine ER 30 MG Oral Tab let Extended Release 24 Hour 05/04/2022 Provider: REFUGIO AMARO MD Diagnosis: Last Documented On 05/09/2022 3:25PM By Lilli MAK ; [facility] Metoprolol Succinate ER 200M G Oral Tablet Extended Release 24 Hour 10/03/2018 Provider: Diagnosis: Last Documented On 9 3:00PM By VENKAT MAK ; [facility] Medications Administered Includes: Administered Medications from this encounter No Administered Medications Recorded Results Includes: Results discussed during this encounter No Results Recorded For Specified Dates History of Present Illness Includes: History of Present Illness from this encounter No History of Present Illness Recorded Social History Description Last Updated Tobacco non-user 11/07/2023 Last Documented On 4 11:54AM ; [facility] Alcohol 07/31/2023 Last Documented On 4 11:54AM ; [facility] Consuming 5 or more drinks per day None 07/31/2023 Last Documented On 4 11:54AM ; [facility] Current nonsmoker 07/31/2023 Last Documented On 4 11:54AM ; [facility] Drug use 07/31/2023 Last Documented On 4 11:54AM ; [facility] Lives with spouse 07/31/2023 Last Documented On 4 11:54AM ; [facility] Non-smoker 07/31/2023 Last Documented On 4 11:54AM ; [facility] Number of times used recreat ional drug/ prescription drug for nonmedical reason. None 07/31/2023 Last Documented On 4 11:54AM ; [facility] Smoking status : Never smoker 08/07/2019 Last Documented On 4 11:54AM ; [facility] Currently 10/03/2018 Last Documented On 4 11:54AM ; [facility] Medical History Includes: Medical History addressed during this encounter Description Last Updated Reviewed and Unchanged 10/10/2019 Last Documented On 4 11:54AM ; [facility] Currently wearing eyeglasses 10/03/2018 Last Documented On 4 11:54AM ; [facility] Previously 3 time(s) 10/03/2018 Last Documented On 4 11:54AM ; [facility] History of arthritis 10/03/2018 Last Documented On 4 11:54AM ; [facility] History of cancer 10/03/2018 Last Documented On 4 11:54AM ; [facility] History of hypertension 10/03/2018 Last Documented On 4 11:54AM ; [facility] Family History Includes: Family History addressed during [...] Active Last Documented On 4 8:53AM ; [facility] Encounters Encounter Provider Location Date Check-In Time Check-Out Time Diagnosis * PHONE CALL FELISHA HERRERA-TAMIKO 12/21/2023 11:54AM 11:59PM Insurance Includes: Active Insurance Policies Plan Name Member ID Group # Subscriber Relationship Effect nieves Dates - [facility] [id number] KATHY Sanchez Clinical Notes Includes: Clinical Notes from this encounter * Progress note Date Encounter Last Documented by 12/21/2023 * PHONE CALL Last documented on 12/28/2023; 8:42 AM, FELISHA GIBSON ANP-; [facility] Active Problems & Conditions - Chronic Pain Syndrome Chief Complaint Phone Call - Chief Concern: reason for call:pt wanted to let you know she was given tramadol, i just picked it up but tramadol doesn't do anything for me, she just wanted you to be aware she was given this rx, michelle pt phone # for return call:[phone] date/initials:12/21/23, kms. Past Medical/Surgical History Reported: Medical: [...]
--- OUTSIDE RECORDS SUMMARY | 2025-06-16 17:37 | XMS_ITS ---
Care Plan - [facility] Created on: June 16, 2025 KATHY MENDENHALL : 1970 Sex: Female Author Organization [facility] Address [address] [place] [address] Phone Care Team Providers Care Layout Worker Name Role Phone NILESH DUKE MD Primary Care Provider [phone]
== END 2025-06-16 16:21 | disposition home or self-care (01) ==
LOC: ANHLAB 16:25
PROVIDERS: PCP Internal Medicine Infectious Disease; Visit Provider Internal Medicine Hematology & Oncology
DX: C50.412 Malignant neoplasm of upper-outer quadrant of left female breast (principal); Z17.0 Estrogen receptor positive status [ER+]
CPT/HCPCS: 36415; 80053; 85025; 86300

== ENCOUNTER 2025-06-17 14:02 | Emergency (ER) | payer OTHER, SELFPAY ==
[2025-06-17] VITALS (11 sets, daily range): BP systolic 111–153; BP diastolic 57–108; PULSE 75–83; RESP 14–22; TEMP 36.4; O2SAT 92–100
--- NOTE | ~2025-06-17 | CT_ITS ---
EXAMINATION: CT lumbar spine wo con COMPARISON: None HISTORY: tailbone injury, fall TECHNIQUE: Axial images were obtained through the spine without IV contrast. Coronal, sagittal reconstruction images were obtained from the axial views. CT scan performed using dose optimization techniques including the following automated exposure control; adjustment of mA and/or kV; use of iterative reconstruction technique. Automatic exposure control was used to reduce radiation dose. Permanent radiation dose record is archived to PACS. FINDINGS: The vertebral heights are intact. No fracture or subluxation. Moderate loss of disc height at L5-S1 L2-3 and L3-4 with moderate canal and foraminal stenosis most marked at L5-S1, outpatient MRI is suggested. Soft tissues unremarkable. Impression: No acute abnormality. Reviewed, dictated and finalized at location P. Impression: No acute abnormality.
--- NOTE | 2025-06-17 15:59 | ED.BACK ---
HPI - Back Pain/Injury General Chief Complaint: Back Pain/Injury Stated Complaint: tail bone pain from fall march, incontinence Time Seen by Provider: 06/17/25 15:33 History of Present Illness HPI Narrative: 55-year-old female with a past medical history including hypertension and COPD presenting to the emergency department today with pain in her back as well as some urinary incontinence issues. Patient states that she fell onto her tailbone and the end of March several months ago. She has been doing with pain in her tailbone ever since and having worsening pain now radiating towards her bilateral thighs posteriorly. No neuropathy or numbness tingling or weakness in the extremities and she is still ambulatory but states it hurts to lay on her back. This is been going on since March and she has been treating herself with [id number] medications without any relief of symptoms. Over last week she started developing urinary complaints where she has insensate loss of control of her bladder occasionally. She knows when she has to go the bathroom and she completes urination without difficulty and then states that sometime shortly thereafter she notes that she is incontinent to more urine and does not feel this. No saddle anesthesias and she has full sensation in her genitourinary region and rectal region. No stool incontinence. No new injuries. No subjective infection symptoms such as fever chills or nausea. Was otherwise in her normal state of health. Related Data Home Medications ?Medication ?Instructions ?Recorded ?Confirmed ?Last Taken ?Type venlafaxine 225 mg tablet,extended 225 mg PO QAM 10/13/19 04/28/25 09/30/24 History release 24 hr famotidine 20 mg tablet 20 mg PO QAM 10/11/23 04/28/25 09/30/24 History ferrous sulfate 325 mg (65 mg 325 mg PO DAILY 10/11/23 04/28/25 09/23/24 History iron) tablet (FeroSul) multivitamin 1 tablet PO DAILY 10/11/23 04/28/25 09/23/24 History nifedipine 30 mg tablet,extended 30 mg PO QAM 10/11/23 04/28/25 09/30/24 History release trazodone 150 mg tablet 150 mg PO HS 10/11/23 04/28/25 09/30/24 History albuterol sulfate 90 mcg/actuation 2 puff inhalation Q4-6H PRN 09/16/24 04/28/25 Unknown History aerosol inhaler shortness of breath or wheezing metoprolol succinate 100 mg 100 mg PO HS 09/16/24 04/28/25 09/30/24 History tablet,extended release 24 hr mirtazapine 15 mg tablet 15 mg PO HS 09/16/24 04/28/25 09/30/24 History omeprazole 40 mg capsule,delayed 40 mg PO QAM 09/16/24 04/28/25 09/30/24 History release Allergies Allergy/AdvReac Type Severity Reaction Status Date / Time meperidine AdvReac Severe HEADACHE Verified 06/17/25 14:06 scopolamine AdvReac Severe Headache Verified 06/17/25 14:06 adhesive tape AdvReac Unknown Rash, Verified 06/17/25 14:06 REDNESS, BURNING silver (From Tegaderm AG AdvReac BLISTER/REDNESS Verified 06/17/25 14:06 Mesh) AT SITE Review of Systems Review of Systems: As reviewed above in HPI [facility] Past Medical History Medical History History of breast cancer s/p bilateral mastectomy, chemo, radiation Hypothyroidism, unspecified hx of, no longer on medications Hearing loss Gastroesophageal reflux disease History of revision of total replacement of right knee joint Systemic lupus erythematosus Eczema Pancreatitis COPD (chronic obstructive pulmonary disease) Asthma Migraines Iron deficiency anemia History of blood transfusion. Hypertension Depression Sepsis Surgical History Surgical History History of knee replacement procedure of right knee History of knee surgery 11/08/23- Rev right TKA History of hysterectomy History of repair of right rotator cuff Status post trigger finger release History of fusion of cervical spine Status post transverse rectus abdominis muscle flap breast reconstruction History of endoscopic sinus surgery History of bilateral mastectomy History of appendectomy History of cholecystectomy History of carpal tunnel release Port-A-Cath in place Family History Family History Other Family history of malignant neoplasm Hypertension Social History Social History Social History: Surrogate medical decision maker: Domingo Mcnulty, spouse. Code status: Full code. Smoking status: Never smoker Second hand tobacco smoke exposure: No Additional smoking assessment comments: chewed tobacco occassionally as a teen Alcohol intake: never Substance use: never Substance use type: does not use Do You Feel Safe in your Home?: Yes Lack of Transportation: No Lack of Food: Never True Current Housing: I Have Housing Concerned About Future Housing: No Difficulty Paying Gas/Electric Bills: No Difficulty Paying for Meds: No Currently Unemployed: No Education: Decline to Answer Difficulty w/ Childcare or Family Care: No Living arrangements: with family Additional living arrangements comments: [facility] Occupation/Education: unemployed Spiritual care concerns: No Exam Narrative: GENERAL: [Well-appearing, well-nourished, and in no acute distress.] HEAD: [Normocephalic, atraumatic.] EYES: [PERRLA and EOMI.] ENT: Nares clear, no rhinorrhea or epistaxis. Mucous membranes moist. NECK: Supple. CHEST: [Clear to auscultation. No respiratory distress.] HEART: [Regular rate and rhythm]. No murmur heard. [Normal peripheral pulses.] ABDOMEN: [Soft, nondistended], [nontender], [No rigidity or guarding] EXTREMITIES: Normal range of motion. [No edema.] Positive straight leg raise bilaterally. Midline lumbar spinal tenderness without any deformity overlying skin changes. SKIN: Warm, dry, no rash. NEURO: No focal neurological deficits and she has full strength and sensation throughout both legs and upper extremities. EHL and FHL 5/5 strength, sensation intact without any paresthesias or numbness in the bilateral legs or genital urinary/saddle region. PSYCH: [Normal mood and affect.] Course Vital Signs Vital signs: Vital Signs Temperature 36.4 C L 06/17/25 14:10 Pulse Rate 75 06/17/25 14:10 Respiratory Rate 20 06/17/25 14:10 Blood Pressure 146/84 H 06/17/25 14:10 Pulse Oximetry 92 06/17/25 14:10 Oxygen Delivery Room Air 06/17/25 14:10 Temperature 36.4 C L 06/17/25 14:10 Pulse Rate 80 06/17/25 20:12 Respiratory Rate 17 06/17/25 20:12 Blood Pressure 153/108 H 06/17/25 20:12 Pulse Oximetry 100 06/17/25 20:12 Oxygen Delivery Room Air 06/17/25 14:10 MDM - Back Pain/Injury MDM Narrative Medical decision making narrative: 55-year-old female with a past medical history including hypertension and COPD presenting to the emergency department today with pain in her back as well as some urinary incontinence issues. Patient states that she fell onto her tailbone and the end of March several months ago. She has been doing with pain in her tailbone ever since and having worsening pain now radiating towards her bilateral thighs posteriorly. No neuropathy or numbness tingling or weakness in the extremities and she is still ambulatory but states it hurts to lay on her back. This is been going on since March and she has been treating herself with [id number] medications without any relief of symptoms. Over last week she started developing urinary complaints where she has insensate loss of control of her bladder occasionally. She knows when she has to go the bathroom and she completes urination without difficulty and then states that sometime shortly thereafter she notes that she is incontinent to more urine and does not feel this. No saddle anesthesias and she has full sensation in her genitourinary region and rectal region. No stool incontinence. No new injuries. No subjective infection symptoms such as fever chills or nausea. Was otherwise in her normal state of health. Patient has an unremarkable neurological examination with full strength and sensation throughout both arms and legs. No weakness in the toes, no sensory deficits in the feet or genitourinary region. No saddle anesthesias. Some midline tenderness to palpation where she injured herself several months ago but no overlying skin changes or deformity. Hemodynamically stable. Patient just went to the bathroom prior to my arrival so we will obtain a postvoid residual as well as blood work a CT scan of the lumbar region for evaluation of any bony anomalies, fractures or any obvious signs of acute injury. She does have positive straight leg raise bilaterally. Postvoid residual was done and showed 0 cc in the bladder which is reassuring that she likely does not have acute neurological dysfunction or cord compression/nerve compression. Likely pain mediated from her injury. Will obtain workup and give her analgesia with re-evaluation. Patient had significant pain control after multiple liver medications including Decadron Dilaudid and Toradol. Ambulatory with a steady gait without any ataxia or antalgic gait. No neurological deficits on re-evaluation. Patient updated on the CT scan shows no acute abnormality. Will have her follow-up with her PCP for outpatient evaluation an outpatient MRI and given her strict return precautions. Her incontinence issues could be very well secondary to other process unrelated to her back pain especially with her reassuring neurological function imaging results and clinical assessment today. We did discuss strict return precautions which she verbalized understanding prior to discharge home. Medical Records Attestation: I reviewed the patient's medical records. Lab Data Attestation: I reviewed the patient's lab results. 06/17/25 16:32 06/17/25 16:32 Labs: Lab Results 06/17/25 06/17/25 Range/Units 16:10 16:32 WBC 6.1 (4.5-10.0) K/mm3 RBC 4.53 (4.2-5.4) M/mm3 Hgb 12.4 (12.0-15.0) g/dL Hct 38.4 (37.0-47.0) % MCV 84.8 (80-100) fl MCH 27.4 (26-34) pg MCHC 32.3 (32-36) g/dl RDW 14.6 H (11.5-14.5) % Plt Count 291 (150-375) k/mm3 MPV 8.5 (7.4-10.4) fl Immature Gran % (Auto) 0.3 (0-0.5) % Neut % (Auto) 41.3 L (45.5-73.1) % Lymph % (Auto) 45.9 H (18.3-44.2) % Winston % (Auto) 10.3 H (2.6-8.5) % Eos % (Auto) 1.5 (0-4.4) % Baso % (Auto) 0.7 (0.2-1.2) % Lymph # (Auto) 2.82 (0.9-3.2) K/mm3 Winston # (Auto) 0.6 (0.1-0.6) K/mm3 Eos # (Auto) 0.1 (0-0.3) K/mm3 Baso # (Auto) 0.0 (0.0-0.1) K/mm3 Abs Immat Gran (auto) 0.02 (0.00-0.031) K/mm3 Absolute Neuts (auto) 2.5 (1.3-6.7) K/mm3 Absolute Nucleated RBC 0.000 (0.0-0.012) K/mm3 Nucleated RBC % 0.0 (0.0-0.2) % PT 13.1 (11.1-14.7) Seconds INR 1.0 APTT 23.3 (22.3-36.8) Seconds Sodium 137 (137-145) mmol/L Potassium 4.1 (3.4-5.0) mmol/L Chloride 100 (98-107) mmol/L Carbon Dioxide 25 (22-30) mmol/L Anion Gap 12 (4-12) mmol/L BUN 17 (7-17) mg/dL Creatinine 0.85 (0.7-1.0) mg/dL Estim Creat Clear Calc 74 ml/min Estimated GFR > 60 (59 - ) Glucose 87 (65-110) mg/dL Calcium 9.1 (8.4-10.2) mg/dL Urine Color Yellow (Yellow) Urine Appearance Clear (Clear) Urine pH 5.5 (5.0-9.0) Ur Specific Hardin 1.017 (1.001-1.035) Urine Protein Negative (Negative) mg/dL Urine Glucose (UA) Negative (Negative) mg/dL Urine Ketones Negative (Negative) mg/dL Ur Blood (Man) Negative (Negative) Urine Nitrate Negative (Negative) Urine Bilirubin Negative (Negative) Urine Urobilinogen 0.2 (<2.0) mg/dL Leukocyte Esterase Rfl 2+ H (Negative) RAEGAN/UL Urine RBC 0-2 (0-2) /hpf Urine WBC 6-10 H (0-3) /hpf Ur Squamous Epith Cells Moderate (Few) /hpf Urine Bacteria None seen /hpf Urine Casts 0-2 Imaging Data Attestation: I personally reviewed and interpreted this imaging study as follows: My impression: Impressions Lumbar Spine CT 06/17/25 17:24 Impression: No acute abnormality. Discharge Plan Discharge Clinical Impression: Back pain, Intermittent urinary incontinence Patient Disposition: Home Condition: Stable Instructions: Antibiotic Form, Urinary Incontinence (ED), Acute Low Back Pain (ED) Additional Instructions: Your CT scan shows no acute abnormalities and your laboratory studies are reassuring without any acute abnormalities. Back pain likely musculoskeletal strain. No neurological findings on your workup for evaluation today. The occasional urinary incontinence likely is unrelated and should be evaluated by her primary doctor but you would also benefit from an outpatient MRI evaluation of your lumbar spine for further evaluation and treatment options. We will send you home with some steroids and pain control medications in the interim. Return to the ER if you have increased pain in your back, you develop lower extremity weakness/numbness/paralysis, you have numbness or tingling in your private parts, or you are unable to control your ability to urinate/stool. Patient Language: Mongolian Prescriptions: New methocarbamol 750 mg tablet 750 mg PO TID PRN (Reason: pain) Qty: 20 0RF lidocaine 5 % adhesive patch,medicated 1 patch topical DAILY Qty: 15 0RF Rx Instructions: leave on most painful area for up to 12 hrs oxycodone 5 mg tablet 5 mg PO Q8H PRN (Reason: pain) Qty: 10 0RF prednisone 50 mg tablet 50 mg PO DAILY 5 Days Qty: 5 0RF No Action venlafaxine 225 mg tablet extended release 24hr 225 mg PO QAM nifedipine 30 mg tablet extended release 30 mg PO QAM famotidine 20 mg tablet 20 mg PO QAM trazodone 150 mg tablet 150 mg PO HS ferrous sulfate [FeroSul] 325 mg (65 mg iron) tablet 325 mg PO DAILY multivitamin Tablet 1 tablet PO DAILY albuterol sulfate 90 mcg/actuation HFA aerosol inhaler 2 puff INHALATION Q4-6H PRN (Reason: shortness of breath or wheezing) metoprolol succinate 100 mg tablet extended release 24 hr 100 mg PO HS mirtazapine 15 mg tablet 15 mg PO HS omeprazole 40 mg capsule,delayed release(DR/EC) 40 mg PO QAM Follow-up/Referrals: Unruly,Manan Mackey [Primary Care Provider] Time of Disposition: 19:58
--- NOTE | 2025-06-17 16:07 | PC.NURSE ---
Pt a difficult stick for IV access and blood draw. Vascular access to attempt.
--- OUTSIDE RECORDS SUMMARY | 2025-06-17 16:19 | XMS_ITS | Clinical Summary ---
Author Organization [facility] Address [address] [place] [address] Phone Care Team Providers Care Store Group Manager Name Role Phone LEILANI MABRY, NILESH Primary Care Provider [phone] Reason for Visit and Chief Complaint The Chief Complaint is: FU MEDS ~ADDED TYLENOL 500, TAKING #2 BID Problems Includes: Problems addressed during this encounter and other active Problems Current Visit Onset Date Resolved Date Provider Charla jones Status Chronic Pain Syndrome 07/31/2023 HARLEEN COULTER PMHNP Active Last Documented On 3 1:32PM ; [facility] Plan of Treatment Education and Decision Aids were provided during visit for: Pill Count: two HYSINGLA Last Documented On 4 11:00AM ; [facility] Pill Count: HYDROCODONE ~out of medication Last Documented On 4 11:43AM ; [facility] Assessments Includes: Assessments from this encounter Findings - Systemic lupus erythematosus [M32.9 - Systemic lupus erythematosus, unspecified] - Last Documented On 12/17/2023 1:18PM ; [facility] - Sacroiliitis [M46.1 - Sacroiliitis, not elsewhere classified] - Last Documented On 12/17/2023 1:18PM ; [facility] - Lumbar spondylosis with radiculopathy [M47.26 - Other spondylosis with radiculopathy, lumbar region] - Last Documented On 12/17/2023 1:18PM ; [facility] - Lumbar stenosis with neurogenic claudication [M48.062 - Spinal stenosis, lumbar region with neurogenic claudication] - Last Documented On 12/17/2023 1:18PM ; [facility] - Fibromyalgia [M79.7 - Fibromyalgia] - Last Documented On 12/17/2023 1:18PM ; [facility] - Chronic pain syndrome [G89.4 - Chronic pain syndrome] - Last Documented On 12/17/2023 1:18PM ; [facility] - [facility] use of opiate analgesic [Z79.891 - long term care social worker (current) use of opiate analgesic] - Last Documented On 12/17/2023 1:18PM ; [facility] Instructions Includes: Instructions from this encounter Education and Decision Aids were provided during visit for: Pill Count: two HYSINGLA Last Documented On 4 11:00AM ; [facility] Pill Count: HYDROCODONE ~out of medication Last Documented On 4 11:43AM ; [facility] Medical Equipment - Implanted Devices Includes: [...] On 4 11:11AM By FELISHA SENIOR ; [facility] New / Renewed during this visit FELISHA SENIOR on 12/17/2023 Hysingla ER 20 MG Oral Table t ER 24 Hour Abuse-Deterrent Provider: FELISHA SENIOR 30 day supply: 30 tablet, 0 refills Diagnosis: Spinal stenosis, lumbar region with neurogenic claudication 1 tablet q 24 hours [facility]: [facility] - [address] [facility], [id number] - Last Documented On 4 2:27PM By FELISHA SENIOR ; [facility] Current Medications (continue as prescribed) Narcan 4 MG/0.1ML Nasal Liquid 01/21/2024 [facility] Diagnosis: Spinal stenosis, lumbar region with neurogenic claudication as directed Last Documented On 4 2:31PM [facility] ; [facility] Hysingla ER 20 MG Oral Table t ER 24 Hour Abuse-Deterrent 01/21/2024 Provider: [facility] Diagnosis: Spinal stenosis, lumbar region with neurogenic claudication 1 tablet q 24 hours Last Documented On 4 2:31PM [facility] ; [facility] oxyCODONE-Acetaminophen 10-325 MG Oral Tablet 01/15/20 Provider: Diagnosis: Last Documented On 02/01/2024 8:52AM By Lilli MAK ; [facility] traZODone HCl 100 MG Oral Tablet 11/02/2023 Provider : Diagnosis: Last Documented On 4 10:13AM By Lilli MAK ; [facility] Cyclobenzaprine HCl 10 MG Oral Tablet 10/29/2023 Pro vider: REFUGIO AMARO MD Diagnosis: Last Documented On 4 10:15AM By Lilli MAK ; [facility] Ketoconazole 2% External Cream 10/29/2023 Provider: REFUGIO AMARO MD Diagnosis: Last Documented On 4 10:15AM By Lilli MAK ; [facility] hydrOXYzine HCl 50 MG Oral Tablet 10/26/2023 Provide r: Diagnosis: Last Documented On 4 10:16AM By Lilli MAK ; [facility] Anastrozole 1 MG Oral Tablet 10/24/2023 Provider: Diagnosis: Last Documented On 4 10:16AM By Lilli MAK ; [facility] FeroSul 325 (65 Fe) MG Oral Tablet 10/24/2023 Provid er: Diagnosis: Last Documented On 4 10:18AM By Lilli MAK ; [facility] Venlafaxine HCl ER 225 MG Oral Tablet Extended R elease 24 Hour 10/23/2023 Provider: Diagnosis: Last Documented On 4 10:18AM By Lilli MAK ; [facility] Pregabalin 200 MG Oral Capsule 10/08/2023 Provider: FELISHA WU Diagnosis: Fibromyalgia TAKE 1 CAPSULE BY MOUTH TWICE DAILY Last Documented On 4 1:51PM By FELISHA SENIOR ; [facility] Omeprazole 40 MG Oral Capsule Delayed Release 08/11/20 Provider: Diagnosis: Last Documented On 4 10:17AM By Lilli MAK ; [facility] Lisinopril 40 MG Oral Tablet 04/11/2023 Provider: REFUGIO AMARO MD Diagnosis: Last Documented On 3 10:40AM By Lilli MAK ; [facility] Famotidine 20 MG Oral Tablet 01/23/2023 Provider: Diagnosis: Last Documented On 02/05/2023 4:01PM By Lilli MAK ; [facility] ARIPiprazole 2 MG Oral Tablet 01/09/2023 Provider: Diagnosis: Last Documented On 02/05/2023 4:04PM By Lilli MAK ; [facility] busPIRone HCl 15 MG Oral Tablet 09/20/2022 Provider: Diagnosis: Last Documented On 02/05/2023 4:05PM By Lilli MAK ; [facility] NIFEdipine ER 30 MG Oral Tab let Extended Release 24 Hour 05/04/2022 Provider: REFUGIO AMARO MD Diagnosis: Last Documented On 05/09/2022 3:25PM By Lilli MAK ; [facility] Metoprolol Succinate ER 200M G Oral Tablet Extended Release 24 Hour 10/03/2018 Provider: Diagnosis: Last Documented On 9 3:00PM By VENKAT MAK ; [facility] Medications Administered Includes: Administered Medications from this encounter No Administered Medications Recorded Vital Signs Includes: Vital Signs from this encounter Vital Name 12/17/2023 10:57A Temp-Oral (F) 98.6 Height (in) 65 Weight (lb) 215 Body Mass Index 35.8 Body Surface Area 2 Pain Level 8 Last Documented: On 12/17/2023 10:59A M ; [facility] Results Includes: Results [...] spinal cord summation trial using 28 contact [employer] percutaneous leads. His replacement. Guidance. Patient tolerated the procedure well. Despite multiple efforts approved reprogramming, and a report back to the [employer] guest experience representative that she was getting approximate 75% [...] psychological evaluation and meeting with the [employer] guest experience representative. Psychological evaluation revealed no barriers to [...] need a refill of hydrocodone today. [place] [employer] appropriate. Last UDS appropriate, this will be [...] simulation trial under fluoroscopic guidance. Of note, [place] prescription monitoring database was reviewed and found [...] UDS appropriate. We will repeat this today. [facility] appropriate. She has exhibited no [...] allows her to maintain function levels. [place] [employer] is appropriate. UDS was appropriate Past note: [...] for visit: Provider: Privacy of provider's office. [address] [place] [id number] Patient: Patient personal setting Total time spent with patient via telecommunication minutes Social History Description Last Updated Tobacco non-user 11/07/2023 Last Documented On 4 10:56AM ; [facility] Alcohol 07/31/2023 Last Documented On 4 10:56AM ; [facility] Consuming 5 or more drinks per day None 07/31/2023 Last Documented On 4 10:56AM ; [facility] Current nonsmoker 07/31/2023 Last Documented On 4 10:56AM ; [facility] Drug use 07/31/2023 Last Documented On 4 10:56AM ; [facility] Lives with spouse 07/31/2023 Last Documented On 4 10:56AM ; [facility] Non-smoker 07/31/2023 Last Documented On 4 10:56AM ; [facility] Number of times used recreat ional drug/ prescription drug for nonmedical reason. None 07/31/2023 Last Documented On 4 10:56AM ; [facility] Smoking status : Never smoker 08/07/2019 Last Documented On 4 10:56AM ; [facility] Currently 10/03/2018 Last Documented On 4 10:56AM ; [facility] Procedures and Surgical History Includes: Procedures from this encounter Procedures Code Diagnosis Performing Provider Service L ocation Service Date use of tobacco assessment performed 1000F Last Documented On 4 10:59AM ; [facility] review of medications documented 1160F Last Documented On 4 10:59AM ; [facility] Clinical summary provided to patient via portal/mailed. ~ Patient understands and agrees with treatment plan. Questions answered Last Documented On 4 11:43AM ; [facility] Medical History Includes: Medical History addressed during this encounter Description Last Updated Reviewed and Unchanged 10/10/2019 Last Documented On 4 10:56AM ; [facility] Currently wearing eyeglasses 10/03/2018 Last Documented On 4 10:56AM ; [facility] Previously 3 time(s) 10/03/2018 Last Documented On 4 10:56AM ; [facility] History of arthritis 10/03/2018 Last Documented On 4 10:56AM ; [facility] History of cancer 10/03/2018 Last Documented On 4 10:56AM ; [facility] History of hypertension 10/03/2018 Last Documented On 4 10:56AM ; [facility] Family History Includes: Family History addressed [...] Active Last Documented On 4 8:53AM ; [facility] Encounters Encounter Provider Location Date Check-In Time Check-Out Time Diagnosis TELEHEALTH FELISHA SENIOR [facility] 12/17/19 24 10:55AM 11:15AM Systemic Lupus Erythematosus,Chr onic Pain Syndrome,Sacroili itis,Fibromyalgia ,Spinal Stenosis Lumbar with Neurogenic Claudication,Spon dylosis with Radiculopathy Lumbar Region,Genetic Counsellor Use of Opiate Analgesic Insurance Includes: Active Insurance Policies Plan Name Member ID Group # Subscriber Relationship Effect nieves Dates 1 - [facility] [id number] KATHY MCNULTY Self Clinical Notes Includes: Clinical Notes from this encounter * Progress note Date Encounter Last Documented by 12/17/2023 TELEHEALTH Last documented on 12/17/2023; 1:18 PM, FELISHA SENIOR; [facility] Active Problems & [...] and a report back to the [employer] guest experience representative that she was getting approximate 75% [...] psychological evaluation and meeting with the [employer] guest experience representative. Psychological evaluation revealed no barriers to [...] will need a refill of hydrocodone today. [place] [employer] appropriate. Last UDS appropriate, this will be [...] simulation trial under fluoroscopic guidance. Of note, [place] prescription monitoring database was reviewed and found [...] UDS appropriate. We will repeat this today. [facility] appropriate. She has exhibited no [...] allows her to maintain function levels. [place] [employer] is appropriate. UDS was appropriate Past note: [...] syndrome [G89.4 - Chronic pain syndrome] - long term care social worker use of opiate analgesic [Z79.891 - [place] [...] for visit: Provider: Privacy of provider's office. [address] [place] [address]., [place] [address] Patient: Patient personal setting Total time spent with patient via telecommunication minutes
--- OUTSIDE RECORDS SUMMARY | 2025-06-17 16:19 | XMS_ITS | Encounter Summary ---
Author Organization [facility] Address [address] [place] [address] Care Team Providers Care Advanced Practice Rn Name Role Phone Key Tolliver MD Primary Care Provider [phone] Reason for Visit * Reason Comments Medication Refill Encounter Details Date Type Department Care Team ([facility] Contact Info) Description 11/20/2021 Refill [facility] [id number] [place] [place] [address] Rodolfo Truong MD [address] [place], [place] [id number] Social History Tobacco Use Types Packs/Day Years Used Date Smoking Tobacco: Never Smokeless Tobacco: Never Alcohol Use Standard Drinks/Week Comments No 0 (1 standard drink = 0.6 oz pur e alcohol) Comments No Sex and Gender Information Value Date Recorded Sex Assigned at Not on file Legal Sex Female 1:52 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 Gender Identity Not on file Sexual Orientation Not on file documented as of this encounter Plan of Treatment Upcoming Encounters Date Type Department Care Team ([facility] Contact Info) Description 06/25/2025 2:00 PM CDT Office Visit [facility] Oncology and Hematology - [place] [address] [place] [address] [facility] [address] [place] [address] Evan Willis MD [address] [facility] [address] [place] [address] 08/17/2025 1:00 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 Office Visit [facility] Plastic Surgery at the [facility] [address] [place] [address] Rodolfo Truong MD [address] [facility] [address] [place] [address] documented as of this encounter Visit Diagnoses Not on filedocumented in this encounter Care Teams Advanced Practice Rn Relationship Specialty [place] [address] [place] [phone] PCP - General Internal Medicine 11/05/18 documented as of this encounter
--- OUTSIDE RECORDS SUMMARY | 2025-06-17 16:19 | XMS_ITS | Clinical Summary ---
Author Organization [facility] Address [address] [place] [address] Phone Care Team Providers Care Fabrication Welder Name Role Phone Key Tolliver MD Primary [...] Insurance MEDICAID [employer] Care Teams Fabrication Welder Relationship Specialty Start Date End Date Key Tolliver MD [address] [place] [address] PCP - General Internal Medicine 03/14/20
--- OUTSIDE RECORDS SUMMARY | 2025-06-17 16:19 | XMS_ITS | Clinical Summary ---
Author Organization [facility] Address [address] [place] [address] Phone Care Team Providers Care Traffic Checker Name Role Phone LEILANI MABRY, NILESH Primary Care Provider [phone] Reason for Visit and Chief Complaint The Chief Complaint is: 1 MO FU Problems Includes: Problems addressed during this encounter and other active Problems Current Visit Onset Date Resolved Date Provider Charla jones Status Chronic Pain Syndrome 07/31/2023 HARLEEN COULTER PMHNP Active Last Documented On 3 1:32PM ; [facility] Plan of Treatment Education and Decision Aids were provided during visit for: Pill Count: 25 HYSINGLA Last Documented On 4 8:54AM ; [facility] Pill Count: two HYSINGLA Last Documented On 4 9:14AM ; [facility] Pill Count: HYDROCODONE ~out of medication Last Documented On 4 9:14AM ; [facility] Assessments Includes: Assessments from this encounter Findings - Systemic lupus erythematosus [M32.9 - Systemic lupus erythematosus, unspecified] - Last Documented On 02/01/2024 9:17AM ; [facility] - Sacroiliitis [M46.1 - Sacroiliitis, not elsewhere classified] - Last Documented On 02/01/2024 9:17AM ; [facility] - Lumbar spondylosis with radiculopathy [M47.26 - Other spondylosis with radiculopathy, lumbar region] - Last Documented On 02/01/2024 9:17AM ; [facility] - Lumbar stenosis with neurogenic claudication [M48.062 - Spinal stenosis, lumbar region with neurogenic claudication] - Last Documented On 02/01/2024 9:17AM ; [facility] - Fibromyalgia [M79.7 - Fibromyalgia] - Last Documented On 02/01/2024 9:17AM ; [facility] - Chronic pain syndrome [G89.4 - Chronic pain syndrome] - Last Documented On 02/01/2024 9:17AM ; [facility] - USP use of opiate analgesic [Z79.891 - USP (current) use of opiate analgesic] - Last Documented On 02/01/2024 9:17AM ; [facility] Instructions Includes: Instructions from this encounter Education and Decision Aids were provided during visit for: Pill Count: 25 HYSINGLA Last Documented On 8:54AM ; [facility] Pill Count: two HYSINGLA Last Documented On 9:14AM ; [facility] Pill Count: HYDROCODONE ~out of medication Last Documented On 9:14AM ; [facility] Medical Equipment - Implanted Devices Includes: Current Devices No Medical Equipment Recorded Medications Includes: Medications discussed during this encounter and other current Medications Current Medications (continue as prescribed) Narcan 4 MG/0.1ML Nasal Liquid 01/21/2024 Provider: FELISHA SENIOR Diagnosis: Spinal stenosis, lumbar region with neurogenic claudication as directed Last Documented On 4 2:31PM By FELISHA SENIOR ; [facility] Hysingla ER 20 MG Oral Table t ER 24 Hour Abuse-Deterrent 01/21/2024 Provider: FELISHA SENIOR Diagnosis: Spinal stenosis, lumbar region with neurogenic claudication 1 tablet q 24 hours Last Documented On 4 2:31PM By FELISHA SENIOR ; [facility] oxyCODONE-Acetaminophen 10-325 MG Oral Tablet 01/15/20 Provider: Diagnosis: Last Documented On 02/01/2024 8:52AM By Lilli MAK ; [facility] traZODone HCl 100 MG Oral Tablet 11/02/2023 Provider : Diagnosis: Last Documented On 4 10:13AM By Lilli MAK ; [facility] Cyclobenzaprine HCl 10 MG Oral Tablet 10/29/2023 Pro vider: REFUGIO AMARO MD Diagnosis: Last Documented On 4 10:15AM By Lilli MAK ; [facility] Ketoconazole 2% External Cream 10/29/2023 Provider: REFUGIO AMARO MD Diagnosis: Last Documented On 4 10:15AM By Lilli MAK ; [facility] hydrOXYzine HCl 50 MG Oral Tablet 10/26/2023 Provide r: Diagnosis: Last Documented On 4 10:16AM By Lilli MAK ; [facility] Anastrozole 1 MG Oral Tablet 10/24/2023 Provider: Diagnosis: Last Documented On 4 10:16AM By Lilli MAK ; [facility] FeroSul 325 (65 Fe) MG Oral Tablet 10/24/2023 Provid er: Diagnosis: Last Documented On 4 10:18AM By Lilli MAK ; [facility] Venlafaxine HCl ER 225 MG Oral Tablet Extended R elease 24 Hour 10/23/2023 Provider: Diagnosis: Last Documented On 4 10:18AM By Lilli MAK ; [facility] Pregabalin 200 MG Oral Capsule 10/08/2023 Provider: FELISHA HERRERA- Diagnosis: Fibromyalgia TAKE 1 CAPSULE BY MOUTH TWICE DAILY Last Documented On 4 1:51PM By FELISHA SENIOR ; [facility] Omeprazole 40 MG Oral Capsule Delayed Release 08/11/20 Provider: Diagnosis: Last Documented On 4 10:17AM By Lilli MAK ; [facility] Lisinopril 40 MG Oral Tablet 04/11/2023 Provider: REFUGIO AMARO MD Diagnosis: Last Documented On 3 10:40AM By Lilli MAK ; [facility] Famotidine 20 MG Oral Tablet 01/23/2023 Provider: Diagnosis: Last Documented On 02/05/2023 4:01PM By Lilli MAK ; [facility] ARIPiprazole 2 MG Oral Tablet 01/09/2023 Provider: Diagnosis: Last Documented On 02/05/2023 4:04PM By Lilli MAK ; [facility] busPIRone HCl 15 MG Oral Tablet 09/20/2022 Provider: Diagnosis: Last Documented On 02/05/2023 4:05PM By Lilli MAK ; [facility] NIFEdipine ER 30 MG Oral Tab let Extended Release 24 Hour 05/04/2022 Provider: REFUGIO AMARO MD Diagnosis: Last Documented On 05/09/2022 3:25PM By Lilli MAK ; [facility] Metoprolol Succinate ER 200M G Oral Tablet Extended Release 24 Hour 10/03/2018 Provider: Diagnosis: Last Documented On 9 3:00PM By VENKAT MAK ; [facility] Medications Administered Includes: Administered Medications from this encounter No Administered Medications Recorded Vital Signs Includes: Vital Signs from this encounter Vital Name 02/01/2024 08:50A Temp-Oral (F) 98.6 Height (in) 65 Weight (lb) 215 Body Mass Index 35.8 Body Surface Area 2 Pain Level 8 Last Documented: On 02/01/2024 8:51AM ; [facility] Results Includes: Results discussed during this [...] and a report back to the [employer] asset protection representative that she was getting approximate 75% [...] psychological evaluation and meeting with the [employer] asset protection representative. Psychological evaluation revealed no barriers to [...] need a refill of hydrocodone today. [place] MENTAL HYGIENE CONSULTANT appropriate. Last UDS appropriate, this will be [...] will repeat this today. [facility] appropriate. She has exhibited no signs [...] allows her to maintain function levels. [place] MENTAL HYGIENE CONSULTANT is appropriate. UDS was appropriate Past note: [...] for visit: Provider: Privacy of provider's office. [address] [place] [address] Patient: Patient personal setting Total time spent with patient via telecommunication 15 minutes Social History Description Last Updated Tobacco non-user 11/07/2023 Last Documented On 4 8:46AM ; [facility] Alcohol 07/31/2023 Last Documented On 4 8:46AM ; [facility] Consuming 5 or more drinks per day None 07/31/2023 Last Documented On 4 8:46AM ; [facility] Current nonsmoker 07/31/2023 Last Documented On 4 8:46AM ; [facility] Drug use 07/31/2023 Last Documented On 4 8:46AM ; [facility] Lives with spouse 07/31/2023 Last Documented On 4 8:46AM ; [facility] Non-smoker 07/31/2023 Last Documented On 4 8:46AM ; [facility] Number of times used recreat ional drug/ prescription drug for nonmedical reason. None 07/31/2023 Last Documented On 4 8:46AM ; [facility] Smoking status : Never smoker 08/07/2019 Last Documented On 4 8:46AM ; [facility] Currently 10/03/2018 Last Documented On 4 8:46AM ; [facility] Procedures and Surgical History Includes: Procedures from this encounter Procedures Code Diagnosis Performing Provider Service L ocation Service Date use of tobacco assessment performed 1000F Last Documented On 4 8:52AM ; [facility] review of medications documented 1160F Last Documented On 4 8:52AM ; [facility] Clinical summary provided to patient via portal/mailed. ~ Patient understands and agrees with treatment plan. Questions answered Last Documented On 4 9:13AM ; [facility] Medical History Includes: Medical History addressed during this encounter Description Last Updated Reviewed and Unchanged 10/10/2019 Last Documented On 4 8:46AM ; [facility] Currently wearing eyeglasses 10/03/2018 Last Documented On 4 8:46AM ; [facility] Previously 3 time(s) 10/03/2018 Last Documented On 4 8:46AM ; [facility] History of arthritis 10/03/2018 Last Documented On 4 8:46AM ; [facility] History of cancer 10/03/2018 Last Documented On 4 8:46AM ; [facility] History of hypertension 10/03/2018 Last Documented On 4 8:46AM ; [facility] Family History Includes: Family History addressed [...] Active Last Documented On 4 8:53AM ; [facility] Encounters Encounter Provider Location Date Check-In Time Check-Out Time Diagnosis [facility] 02/01/20 24 9:00AM 9:23AM Systemic Lupus Erythematosus,Chr onic Pain Syndrome,Sacroili itis,Fibromyalgia ,Spinal Stenosis Lumbar with Neurogenic Claudication,Spon dylosis with Radiculopathy Lumbar Region,Jail Use of Opiate Analgesic Insurance Includes: Active Insurance Policies Plan Name Member ID Group # Subscriber Relationship Effect nieves Dates 1 - [facility] [id number] KATHY MENDENHALL Self Clinical Notes Includes: Clinical Notes from this encounter * Progress note Date Encounter Last Documented by 02/01/2024 TELEHEALTH Last documented on 02/01/2024; 9:17 AM, FELISHA SENIOR; [facility] Active Problems & Conditions - Chronic Pain [...] spinal cord summation trial using 28 contact [employer] percutaneous leads. His replacement. Guidance. Patient tolerated the procedure well. Despite multiple efforts approved reprogramming, and a report back to the [employer] asset protection representative that she was getting approximate 75% [...] psychological evaluation and meeting with the [employer] asset protection representative. Psychological evaluation revealed no barriers to [...] need a refill of hydrocodone today. [place] MENTAL HYGIENE CONSULTANT appropriate. Last UDS appropriate, this will be [...] will repeat this today. [facility] appropriate. She has exhibited no signs [...] allows her to maintain function levels. [place] MENTAL HYGIENE CONSULTANT is appropriate. UDS was appropriate Past note: [...] syndrome [G89.4 - Chronic pain syndrome] - truck terminal manager use of opiate analgesic [Z79.891 - truck terminal manager (current) use of opiate analgesic] Therapy - [...] for visit: Provider: Privacy of provider's office. [address] [place] [address] Patient: Patient personal setting Total time spent with patient via telecommunication 15 minutes
--- OUTSIDE RECORDS SUMMARY | 2025-06-17 16:19 | XMS_ITS | Encounter Summary ---
Author Organization [facility] Address [address] [place] [address] Care Team Providers Care Criminal Intelligence Analyst Name Role Phone Key Tolliver MD Primary Care Provider Pablo Liriano MD Unavailable Evan Willis MD Unavailable [phone] Charles Kingston MD Unavailable Reason for Visit * Reason Onset Date Comments Question 02/20/2025 Encounter Details Date Type Department Care Team (Late st Contact Info) Description 02/20/2025 Telephone [facility] - Orthopedic Surgery [address], [facility] [address] [place] [address] Tamie Olivas, DARRON Question Social [...] on file Legal Sex Female 11:46 AM JAW SKINNER Gender Identity Not on file Sexual Orientation [...] st Contact Info) Description 09/23/2025 11:30 AM JAW SKINNER Office Visit [facility] - Orthopedics [address] [facility] [place] [address] Yandel Petersen MD [address] [place] [address] 03/11/2026 2:00 PM CDT Office Visit [facility] - Rheumatology [address] [facility] [place] [address] Ev Lowery MD [facility] [address] [place] [address] documented as of this encounter Goals Goal Patient Goal Type Associated Problems Recent Progress Patient-Stated? Author Mobility General Improving( 1:50 PM CDT) No Coreen Muñoz, RN Note: Expected end date: 12/01/2020 The goal is to maintain or improve your mobility at the optimum level for you. Interventions: Mobility General Worsening( 1:20 PM JAW SKINNER) No Lilo Kaminski, DARRON Note: Expected end date: 11/17/2019 The goal is to maintain or improve your mobility at the optimum level for you. Interventions: PAIN General No Shira Sun, DARRON Note: Expected end date: 01/18/2020 Patient's pain/discomfort is manageable. Interventions: documented as of this encounter Visit Diagnoses Not on filedocumented in this encounter Care Teams Criminal Intelligence Analyst Relationship Specialty Start Date End Date Key Tolliver MD [address] [place] [phone] PCP - General 10/22/18 Pablo Liriano MD [address] [place] [address] [phone] Orthopedic Surgery 05/22/19 Evan Willis MD [address] [place] [address] [phone] Medical Oncologist Medical Oncology 11/02/21 Charles Kingston MD [address] [phone] Vending Machine Host/Hostess Cardiology 11/03/21 documented as of this encounter
--- OUTSIDE RECORDS SUMMARY | 2025-06-17 16:19 | XMS_ITS | Clinical Summary ---
Author Organization [facility] Address [address] [place], [place] [address] [address] Care Team Providers Care Sensitized Paper Tester Name Role Phone Key Tolliver MD Primary Care Provider [phone] Allergies Active Allergy Reactions Criticality Noted Date [...] Tablet 4 Active naloxone (NARCAN) 4 mg/spray [place], Non-Aerosol EMERGENCY USE ONLY: Administer 1 spray [...] Encounters Date Type Department Care Team Description 06/17/2025 Orders Only [facility] Oncology and Hematology - [address] [place] [address] Evan Willis MD 05/06/2025 External Device Data STL ABSTRACTION Provider, Abstract 04/22/2025 External Device Data STL ABSTRACTION Provider, Abstract 04/14/2025 Telephone [facility] Plastic Surgery at the [facility] [address] [facility] [address] [place] [address] Rodolfo Truong MD wants a referral 04/10/2025 Orders Only [facility] Oncology and Hematology - [address] [place] [address] Evan Willis MD Malignant neoplasm of upper-outer [...] on file Legal Sex Female 1:52 PM MAIL DELIVERER Gender Identity Not on file Sexual Orientation Not on file Last Filed Vital Signs Vital Sign Reading Time Taken Comments Blood Pressure 153/86 08/11/2024 12:55 PM MAIL DELIVERER Pulse 88 07/28/2024 12:10 PM MAIL DELIVERER Temperature 36.3 C (97.4 F) 07/28/2024 12:10 PM MAIL DELIVERER Respiratory Rate 20 07/28/2024 12:10 PM MAIL DELIVERER Oxygen Saturation 94% 07/28/2024 12:10 PM MAIL DELIVERER Inhaled Oxygen Concentration - - Weight 104.8 kg (231 lb) 08/11/2024 12:55 PM MAIL DELIVERER Height 165.1 cm (5' 5) 08/11/2024 12:55 PM MAIL DELIVERER Body Mass Index 38.44 08/11/2024 12:55 PM MAIL DELIVERER Plan of Treatment Upcoming Encounters Date Type Department Care Team (Late st Contact Info) Description 06/25/2025 2:00 PM CDT Office Visit [facility] Oncology and Hematology - [address] [place] [address] Evan Willis MD [address] [facility] [address] [place] [address] 08/17/2025 1:00 PM MAIL DELIVERER Office Visit [facility] Plastic Surgery at the [facility] Medicine [address] [place] [address] Rodolfo Truong MD [address] [facility] [address] [place] [address] Health Maintenance Due Date Last Done Comments Pre-Diabetes and Diabetes Screening 1970 HEPATITIS B VACCINES (1 of 3 - 19+ 3-dose series) 1988 FIT-DNA Q 3 years 2014 FIT/FOBT Q 1 year 2014 Flex Sig/CT Colonography Q 5 years 2014 ZOSTER VACCINE (1 of 2) 2019 INFLUENZA VACCINE (#1) 2025 , 05/15/2018, 07/20/2017, Additional history exists COLORECTAL SCREENING 01/01/2027 01/01/2017, 06/23/20 11 Colorectal Cancer Screening 01/01/2027 DTAP/TDAP/TD VACCINES (2 - T d or Tdap) 09/11/2027 09/11/2017 Medical Devices Implanted Type Area Combine Driver Device Identifier Shelf Expiration Date Model / Serial / Lot Document Control Manager Clip Surgiclip Ii Yordan 9.75in [id number] - [id number] Implanted:Qty: 1 on 10/23/2019 by Rodolfo Truong MD at [facility] Clip N/A: Breast [employer] - COVIDIEN [id number] 06/02/2024 [id number] / / [id number] Natrelle Inspira Softtouch Breast Implant Implanted:Qty: 1 on 07/28/2024 by Rodolfo Truong MD at [facility] Other Right: Breast [employer]- MEDICAL [id number] 10/08/2028 SSX-750 / [id number] / Natrelle Inspira Softtouch Breast Implant Implanted:Qty: 1 on 07/28/2024 by Rodolfo Truong MD at [facility] Other Left: Breast [employer]- MEDICAL [id number] 07/16/2026 SSF-745 / [id number] / Description:Both Allergan Im plants Requisition,[id number]. Knee Replacement-Yves Plate/ Screws Of Neck Left Shoulder Replacement Explanted Type Area Combine Driver Device Identifier Shelf Expiration Date Model / Serial / Lot Tissue Rn Invasive W/ Suture Tabs Implanted:Qty: 1 on 10/23/2019 by Rodolfo Truong MD at [facility] Explanted:Qty: 1 on 04/06/2020 at [facility] Mammary Left: Breast [employer]- MEDICAL [id number] 07/07/2024 133S-MX-1 3-T / [id number] / Description:Filled with 120m l 0.9% NaCl Both Allergan tissue expanders are processed on requisition [id number]. Tissue Rn Invasive With Suture Tabs Implanted:Qty: 1 on 10/23/2019 by Rodolfo Truong MD at [facility] Explanted:Qty: 1 on 04/06/2020 at [facility] Mammary Right: Breast [employer]- MEDICAL 04/25/2024 133S-MX-1 3-T / [id number] / Description:Requisition # [id number] Natrelle Inspira Softtouch Breast Implant 450cc Implanted:Qty: 1 on 04/06/2020 by Rodolfo Truong MD at [facility] Explanted:Qty: 1 on 08/16/2020 at [facility] Mammary Left: Breast [employer]- MEDICAL [id number] 08/17/2024 SSF-450 / [id number] / Description:Both Allergan Br east Implants are processed on requisition [id number]. Natrelle Inspira Softtouch Breast Implant 525cc Implanted:Qty: 1 on 04/06/2020 by Rodolfo Truong MD at [facility] Explanted:Qty: 1 on 08/16/2020 at [facility] Mammary Right: Breast [employer]- MEDICAL [id number] 12/29/2023 SSX-525 / [id number] / Description:Requisition # [id number]. Natrelle Inspira Soft Touch Ssf-560 Implanted:Qty: 1 on 08/16/2020 at [facility] Explanted:Qty: 1 on 02/22/2023 by Rodolfo Truong MD at [facility] Mammary Right: Breast [employer]- MEDICAL [id number] 06/21/2024 SSF-560 / [id number] / Description:Requisition # [id number] left breast Imp Breast Inspira Ssx 700ml Ssx-700 - [id number] Explanted:Qty: 1 on 02/22/2023 at [facility] Right: Breast [employer]- MEDICAL 01/04/2026 SSX-700 / [id number] / Natrelle Inspira Softtouch Ssx-615 Implanted:Qty: 1 on 08/16/2020 at [facility] Explanted:Qty: 1 on 02/22/2023 by Rodolfo Truong MD at [facility] Right: Breast [employer]- MEDICAL [id number] 10/15/2024 SSX-615 / [id number] / Description:both Allergan re placement breast implants are processed on requisition [id number]. Imp Breast Inspira Ssf 650ml Ssf-650 - [id number] Implanted:Qty: 1 on 02/22/2023 by Rodolfo Truong MD at [facility] Explanted:Qty: 1 on 07/28/2024 by Rodolfo Truong MD at [facility] Mammary Left: Breast [employer]- MEDICAL 09/11/2027 SSF-650 / [id number] / Imp Breast Inspira Ssx 615ml Ssx-615 - [id number] Implanted:Qty: 1 on 02/22/2023 by Rodolfo Truong MD at [facility] Explanted:Qty: 1 on 07/28/2024 by Rodolfo Truong MD at [facility] Right: Breast [employer]- MEDICAL 10/15/2024 SSX-615 / [id number] / Description:Original implant placed on 08/16/2020 was explanted today but surgeon reimplanted after trying alteratives unsuccessfully. Procedures Procedure Name Priority Date/Time Associated Diagnosis Comments COMPREHENSIVE METABOLIC PANEL Routine 06/16/2025 7:55 AM CDT ENDOSCOPY, COLON, SCREENING Routine 01/01/2017 from Last 3 Months or Most Recently Relevant to Health Maintenance Results * COMPREHENSIVE METABOLIC PANEL (06/16/2025 7:55 AM CDT) Blood us Evan Willis MD CHEMISTRY ORDERABLES Final Resu lt * ENDOSCOPY, COLON, SCREENING (01/01/2017) Cory Delgado MD GI PROCEDURE ORDERABLES Edited Result - Final [facility] from Last 3 Months or Most Recently Relevant to Health Maintenance Insurance [employer] MEDICA[employer] RX [place] [employer] (INTERNAL) [facility] Plans RX [employer] Medicaid RX [employer] [facility] [employer] Commercial GENERIC PAYOR MEDICAID Advance Directives For more information, please contact: [phone] * Full Code (Latest Code Status on [...] 8:44 AM 10/23/2019 2:10 PM Care Teams Sensitized Paper Tester Relationship Specialty Start Date End Date Key Tolliver MD [address] [place] [address] PCP - General Internal Medicine 11/05/18
--- OUTSIDE RECORDS SUMMARY | 2025-06-17 16:19 | XMS_ITS | Patient Health Record ---
Author Organization [facility] Address [address] [facility] [address] [place] [address] Care Team Providers Care Puttier Name Role Phone Kate Burgos Unavailable [phone] Reason For Referral No Information Medications Medication [...] ML (15 ML) ORAL SOLUTION *Reorder from [employer] for eRx and Interaction Alerts* Active Dicyclomine HCl 20 MG Tablet Oral Active SEROquel 100 MG Tablet Oral Active Ferrous Sulfate 325 (65 Fe) MG Tablet Oral Active Plan Of Treatment No Information
--- OUTSIDE RECORDS SUMMARY | 2025-06-17 16:19 | XMS_ITS | Clinical Summary ---
Author Organization [facility] Address [address] [facility] [place] [address] Care Team Providers Care Charge Auditor Name Role Phone Key Tolliver MD Primary Care Provider Pablo Liriano MD Unavailable [phone] Evan Willis MD Unavailable [phone] Charles Kingston MD Unavailable Source Comments [facility],non-owned Affiliates and Associated Physician Practices is amultiple site organization consisting of ambulatory clinics and hospital sitesin [place], [place], [place] and [place]. This disclosure is being madepursuant to the Care Everywhere program and may not contain all information available regarding this patient. 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 Chest [...] Telephone [facility] [address] [place] [phone] Myriam Roman, RN Appointment 06/05/2025 Telephone [facility] [address] [place] [place] [phone] Myriam Roman outsole flexer 05/28/2025 2:30 PM CDT Office Visit [facility] - Orthopedic Surgery [address] [place] [phone] Yandel Petersen MD Lumbar pain (Primary Dx); Lumbar radiculopathy; Status post cervical disc replacement; Pain in joint of right shoulder 05/28/2025 1:00 PM CDT - 05/28/2025 11:59 PM CDT Hospital Encounter [facility] [address] [place] [phone] Yandel Petersen MD Discharge Disposition: Home or [...] on file Legal Sex Female 11:46 AM BRIDGE OPERATOR Gender Identity Not on file Sexual [...] st Contact Info) Description 09/23/2025 11:30 AM BRIDGE OPERATOR Office Visit [facility] [address] [place] [address] Yandel Petersen MD [address] [place] [address] 03/11/2026 2:00 PM CDT Office Visit [facility] - Rheumatology [facility] [place] [address] Ev Lowery MD [facility] [place] [phone] Health Maintenance Due Date Last Done Comments [...] you. Interventions: Mobility General Worsening( 1:20 PM BRIDGE OPERATOR) No Lilo Kaminski, DARRON Note: Expected end date: 11/17/2019 The goal is to maintain or improve your mobility at the optimum level for you. Interventions: PAIN General No Shira Sun RN Note: Expected end date: 01/18/2020 Patient's pain/discomfort is manageable. Interventions: Medical Devices Implanted Type Area Integrated Marketing Specialist Device Identifier Shelf Expiration Date Model / Serial / Lot Cmnt Bone Plc R+Ggnta 40gm Lf Grn Implanted:Qty: 1 on 10/11/2017 by Rajendra Ingram MD at [facility] Left: Knee [employer] 12/01/2020 [id number] / / [id number] Description:12 BEADS IN LEFT KNEE ON VICRYL SUTURE 21 BEADS IN RIGHT KNEE ON VICRYL SUTURE Brng [id number] Vngrd Arcm Kn Ant Stab Implanted:Qty: 1 on 10/16/2017 by Rajendra Ingram MD at [facility] Left: Knee [employer] 06/09/2022 [id number] / / Brng [id number] Vngrd Arcm Kn Ant Stab Implanted:Qty: 1 on 10/16/2017 by Rajendra Ingram MD at [facility] Right: Knee [employer] 07/25/2022 [id number] / / Cmpnt Tibtry Bmt As Mx Kn Intlk Prm Lck Implanted:Qty: 1 on 10/16/2017 by Rajendra Ingram MD at [facility] Left: Knee [employer] 07/11/2027 [id number] / / Cmpnt Tibtry Bmt As Mx Kn Intlk Prm Lck Implanted:Qty: 1 on 10/16/2017 by Rajendra Ingram MD at [facility] Right: Knee [employer] 06/17/2027 [id number] / / Kam Kn Tot Rev 50% Of 2013 Implanted:Qty: 1 on 10/16/2017 by Rajendra Ingram MD at [facility] [employer] KR2 KNEE TO T REV WAN BILL ONLY / / Cmpnt Glnd 38mm Std Glenosphere Sckt Geovany Implanted:Qty: 1 on 03/19/2019 by Pablo Lirinao MD at [facility] Left: Shoulder [employer] Inc 11/01/2023 [id number] / / Description:DXTND GLENOSPHER E STD [id number]--27/22 LG Dxtend Mod Cent Epi 1 [place] Implanted:Qty: 1 on 03/19/2019 by Pablo Liriano MD at [facility] Left: Shoulder 01/01/2024 1307-20-101 / / Description:delta xtend mudu lar centered epiphysis Global Unite Std Stem Sz 8 Implanted:Qty: 1 on 03/19/2019 by Pablo Liriano MD at [facility] Left: Shoulder 08/02/2027 1100-08-100 / / Description:global unite por ocoat standard stem Dxtend Stand Pe Cup D38 +3mm Implanted:Qty: 1 on 03/19/2019 by Pablo Liriano MD at [facility] Left: Shoulder 1307-38-203 / / [id number] Description:Delta xtend lyudmila ral PE cup standard Sys Shld Tot Arthroplst Rev Implanted:Qty: 1 on 03/19/2019 by Pablo Liriano MD at [facility] Left: Shoulder [employer] S4 DEPUY / / Cmpnt Glnd 27mm Std Geovany Xtend Metaglene Implanted:Qty: 1 on 03/19/2019 by Pablo Liriano MD at [facility] Left: Shoulder [employer] 12/02/2023 1307-60-000 / / Description:DXTEND METAGLENE Dxtend Screw Lock D4.5x36mm Implanted:Qty: 1 on 03/19/2019 by Pablo Liriano MD at [facility] Left: Shoulder 12/02/2023 1307-90-036 / / Description:PACK ACL TISSUE FX CSTM SRG PRC DISP Screw 4.5mm 30mm Shldr Glnd Lck Geovany Implanted:Qty: 1 on 03/19/2019 by Pablo Liriano MD at [facility] Left: Shoulder [employer] 01/01/2024 1307-90-030 / / Description:DXTEND SCREW LOC K D4.9H57IM--24/22 LG 6.5mm Canellous Screw Implanted:Qty: 1 on 10/25/2020 by Anjelica Gutierres MD at [facility] Right: Ankle [employer] 486-55-01 / / 6.5mm Cancellous Screw Implanted:Qty: 1 on 10/25/2020 by Anjelica Gutierres MD at [facility] Right: Ankle [employer] / / Cortical Screw 2.7mm Implanted:Qty: 1 on 10/25/2020 by Anjelica Gutierres MD at [facility] Right: Ankle [employer] [id number] / / Screw 3.5mm 32mm 2.5mm Slf-Tap Sm Hex Implanted:Qty: 2 on 10/25/2020 by Anjelica Gutierres MD at [facility] Right: Ankle [employer] [id number] / / Screw 3.5mm 45mm 2.5mm Slf-Tap Sm Hex Implanted:Qty: 1 on 10/25/2020 by Anjelica Gutierres MD at [facility] Right: Ankle [employer] [id number] / / Graft Bone Alfs + Dbm 1cc Algrf Pst Implanted:Qty: 1 on 10/25/2020 by Anjelica Gutierres MD at [facility] Right: Ankle Allosource 04/08/2021 [id number] / / [id number] Bsplt Glnd 30mm Rsp Shldr P2 Strl Lf Implanted:Qty: 1 on 04/26/2022 by Mariano Guzmán MD at [facility] Left: Shoulder [employer] 03/23/2028 508-32-204 / / [id number] Screw 5mm 14mm Shldr Lck Rsp Glnd Bsplt Implanted:Qty: 1 on 04/26/2022 by Mariano Guzmán MD at [facility] Left: Shoulder [employer] 03/25/2028 506-03-114 / / [id number] Screw 5mm 14mm Shldr Lck Rsp Glnd Bsplt Implanted:Qty: 1 on 04/26/2022 by Mariano Guzmán MD at [facility] Left: Shoulder [employer] 04/05/2028 506-03-114 / / [id number] Screw 5mm 30mm Shldr Lck Rsp Glnd Bsplt Implanted:Qty: 1 on 04/26/2022 by Mariano Guzmán MD at [facility] Left: Shoulder [employer] 03/13/2028 506-03-130 / / [id number] Screw 5mm 30mm Shldr Lck Rsp Glnd Bsplt Implanted:Qty: 1 on 04/26/2022 by Mariano Guzmán MD at [facility] Left: Shoulder [employer] 03/18/2028 506-03-130 / / [id number] Cmnt Bone Djo Srg Cblt 40gm Hvisc Strl Implanted:Qty: 1 on 04/26/2022 by Mariano Guzmán MD at [facility] Left: Shoulder [employer] 03/16/2023 600-15-000 / / [id number] Head Glnd 32mm Rsp Ntrl Shldr Rtn Screw Implanted:Qty: 1 on 04/26/2022 by Mariano Guzmán MD at [facility] Left: Shoulder [employer] 03/22/2028 508-32-101 / / [id number] Ins Sckt Rsp Djo Srg +4mm Hum Hxe+ Implanted:Qty: 1 on 04/26/2022 by Mariano Guzmán MD at [facility] Left: Shoulder [employer] 12/26/2026 509-01-432 / / [id number] Humeral Stem Reverse Size 8mm X 108mm Implanted:Qty: 1 on 04/26/2022 by Mariano Guzmán MD at [facility] Left: Shoulder [employer] 10/05/2027 530-08-108 / / [id number] Rstrc Cmnt Cl Ct 10mm Implanted:Qty: 1 on 04/26/2022 by Mariano Guzmán MD at [facility] Left: Shoulder [employer] 07/03/2024 415-00-100 / / [id number] Rsp Humeral Socket Insert 32mm Semi-Constrain ed Implanted:Qty: 1 on 06/14/2022 by Mariano Guzmán MD at [facility] Left: Shoulder [employer] 08/12/2026 509-01-032 / / [id number] Spcr Hum Djo Srg Rsp +8mm Mnblck Strl Lf Implanted:Qty: 1 on 06/14/2022 by Mariano Guzmán MD at [facility] Left: Shoulder [employer] 04/12/2028 510-08-000 / / [id number] Head Glnd 32mm Rsp Ntrl Shldr Rtn Screw Implanted:Qty: 1 on 06/14/2022 by Mariano Guzmán MD at [facility] Left: Shoulder [employer] 05/17/2028 508-32-101 / / [id number] Screws Implanted:Qty: 1 on 08/10/2023 by Jace Muller MD at [facility] Left: Ankle AR-8935-32 / / Description:3.0-4.0 ARTHREX VENDOR TRAY Screw Implanted:Qty: 1 on 08/10/2023 by Jace Muller MD at [facility] Left: Ankle Arthrex Inc AR-8940-34 / / Description:3.0-4.0 ARTHREX TRAY Kit Bngf 3cc Aug Inj Implanted:Qty: 1 on 01/14/2024 by Jace Muller MD at [facility] Left: Ankle Treehouse 08/30/2026 [id number] / / [id number] Graft Bone Ignite 2 Mini 4cc Pwr Mx - [id number] Implanted:Qty: 1 on 01/14/2024 by Jace Muller MD at [facility] Left: Ankle Spectropath Inc 07/19/2028 [id number] / [id number] / Allosync Pure 5cc Implanted:Qty: 1 on 01/14/2024 by Jace Muller MD at [facility] Left: Ankle Arthrex Inc 08/20/2028 ABS-2010-01 / / [id number] 7.0 Screw 55 Implanted:Qty: 1 on 01/14/2024 by Jace Muller MD at [facility] Left: Ankle Arthrex Inc AR-8770-5H / / 7.0 Screw 40 Implanted:Qty: 1 on 01/14/2024 by Jace Muller MD at [facility] Left: Ankle Arthrex Inc AR-8770-40H / / Explanted Type Area Integrated Marketing Specialist Device Identifier Shelf Expiration Date Model / Serial / Lot Cortical Screw 3.5mm Explanted:Qty: 1 on 10/25/2020 at [facility] Right: Ankle [employer] [id number] / / 4.0mm Screw Explanted:Qty: 1 on 08/10/2023 at [facility] Left: Ankle AR-8940-32 / / Screw 3mm 20mm T10 Ft Slf-Tap Lck Strdr Explanted:Qty: 1 on 08/10/2023 by Felipe Bourne MD at [facility] Left: Ankle Arthrex Inc AR-8933L-20 / / Screw 3mm 18mm Va Slf-Tap Sld Lck Ankl Explanted:Qty: 1 on 08/10/2023 by Felipe Bourne MD at [facility] Left: Ankle Arthrex Inc AR-8933V-18 / / Wire K .062in 6in Fx 2 Troc Explanted:Qty: 2 on 08/10/2023 at [facility] Left: Ankle [employer] [id number] / / Screw 3.5mm 28mm T15 Ft Slf-Tap Sld Hxlb Implanted:Qty: 1 on 08/10/2023 by Jace Muller MD at [facility] Explanted:Qty: 1 on 01/14/2024 by Jace Muller MD at [facility] Left: Ankle Arthrex Inc AR-8935CL-2 8 / / Screw 3.5mm 26mm T15 Ft Slf-Tap Sld Hxlb Implanted:Qty: 1 on 08/10/2023 by Jace Muller MD at [facility] Explanted:Qty: 1 on 01/14/2024 by Jace Muller MD at [facility] Left: Ankle Arthrex Inc AR-8935CL-2 6 / / Plate Calc 7.5mm Stp Bone Implanted:Qty: 1 on 08/10/2023 by Jace Muller MD at [facility] Explanted:Qty: 1 on 01/14/2024 by Jace Muller MD at [facility] Left: Ankle Arthrex Inc AR-8949-075 / / 3.5mm Locking Screw Implanted:Qty: 1 on 08/10/2023 by Jace Muller MD at [facility] Explanted:Qty: 1 on 01/14/2024 by Jace Muller MD at [facility] Left: Ankle AR-8935CL-2 4 / / Description:3.0-4.0 ARTHREX VENDOR TRAY Screw 3mm 16mm Va Slf-Tap Sld Lck Ankl Implanted:Qty: 1 on 08/10/2023 by Felipe Bourne MD at [facility] Explanted:Qty: 1 on 01/14/2024 by Jace Muller MD at [facility] Left: Ankle Ar[employer]rex Inc AR-8933V-16 / / Screw 3mm 20mm Va Slf-Tap Sld Lck Ankl Implanted:Qty: 1 on 08/10/2023 by Felipe Bourne MD at [facility] Explanted:Qty: 1 on 01/14/2024 by Jace Muller MD at [facility] Left: Ankle Arthrex Inc AR-8933V-20 / / Procedures Procedure Name Priority Date/Time Associated Diagnosis Comments XR LUMBAR SPINE 2 OR 3VW Routine 05/28/2025 1:05 PM CDT Lumbar pain COMPREHENSIVE METABOLIC PANEL Routine 09/17/2024 12:09 PM BRIDGE OPERATOR Positive double stranded 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 ANTIBODY + HIV P24 AG PANEL AM Draw 10/12/2017 4:43 AM BRIDGE OPERATOR HEPATITIS C ANTIBODY Routine 12/27/2015 5:08 PM CDT from Last 3 Months or Most Recently Relevant to Health Maintenance Results * XR Lumbar Spine 2 or 3Vw (05/28/2025 1:05 PM CDT) Anatomical Region Laterality Modality Spine Radiographic Gely ging 05/28/2025 1:07 PM CDT Narrative 05/28/2025 1:08 PM CDT Procedure: XR LUMBAR SPINE 2 OR 3VW Exam Date: 05/28/2025 1:05 PM Location: [facility] Indication: M54.50: Lumbar pain Findings/impression: The study [...] 3VW Exam Date: 05/28/2025 1:05 PM Location: [facility] Indication: M54.50: Lumbar pain Findings/impression: The study [...] (ABNORMAL) COMPREHENSIVE METABOLIC PANEL (09/17/2024 12:09 PM BRIDGE OPERATOR) BUN 17 7 - 26 mg/dL 09/17/2024 1:09 PM BRIDGE OPERATOR [facility] Creatinine 1.03(H) 0.56 - 0.96 mg/dL 09/17/2024 1:09 PM [facility] Sodium 139 136 - 145 mmol/L 09/17/2024 1:09 PM [facility] Potassium 3.9 3.5 - 4.5 mmol/L 09/17/2024 1:09 PM [facility] Chloride 103 98 - 107 mmol/L 09/17/2024 1:09 PM [facility] CO2 24 22 - 29 mmol/L 09/17/2024 1:09 PM [facility] Glucose 98 70 - 99 mg/dL 09/17/2024 1:09 PM [facility] Calcium 9.4 8.4 - 10.2 mg/dL 09/17/2024 1:09 PM [facility] Protein Total 8.2 6.0 - 8.3 g/dL 09/17/2024 1:09 PM [facility] Albumin 4.1 3.4 - 5.0 g/dL 09/17/2024 1:09 PM [facility] Bilirubin Total 0.4 0.2 - 1.2 mg/dL 09/17/2024 1:09 PM [facility] Alkaline Phosphatase 82 40 - 150 U/L 09/17/2024 1:09 PM [facility] ALT 30 5 - 55 U/L 09/17/2024 1:09 PM [facility] AST 32 5 - 34 U/L 09/17/2024 1:09 PM [facility] Anion Gap 12 6 - 16 09/17/2024 1:09 PM [facility] BUN/Creatinine Ratio 17 7 - 23 09/17/2024 1:09 PM [facility] Osmolality Calculated 290 275 - 295 mOsm/kg 09/17/2024 1:09 PM [facility] Albumin/Globulin Ratio 1.0(L) 1.1 - 2.3 09/17/2024 1:09 PM [facility] eGFR by CKD-EPI 64(L) >=90 mL/min/1.7 3 m2 09/17/2024 1:09 PM [facility] Blood BLOOD SPECIMEN / Unknown Lab Venipuncture / Unknown 09/17/2024 12:09 PM [facility] 09/17/2024 12:29 PM BRIDGE OPERATOR Ev Lowery MD LAB - CHEMISTRY ORDERABLES Fi nal Result Performing Organization Address [facility]/ZIP Co de Phone Number [facility] [address] [place] [address], [facility] [phone] * HIV-1 HIV-2 ANTIBODY + HIV P24 AG PANEL (10/12/2017 4:43 AM BRIDGE OPERATOR) [facility] HIV1/2 Ab + P24 Ag Non Reactive Non Reactive 10/12/2017 11:04 AM BRIDGE OPERATOR [facility] Blood BLOOD SPECIMEN / Unknown Venipuncture / Unknown 10/12/2017 4:43 AM BRIDGE OPERATOR 10/12/2017 4:57 AM BRIDGE OPERATOR Narrative [facility] - 10/12/2017 11:04 AM BRIDGE OPERATOR No Laboratory evidence of HIV infection. Result [facility] Singh Moyer MD LAB - CHEMISTRY ORDERAB LES Final Result Performing Organization Address [facility] Co de Phone Number [facility] [address] [place] [address] * HEPATITIS C ANTIBODY (12/27/2015 5:08 PM CDT) [facility] Hepatitis C Antibody Non-react [facility] Comment: Hepatitis C Antibody screen indicates [...] ORDERABLES Fi nal Result Performing Organization Address [facility]/ZIP Co de Phone Number [facility] [address] [place] [address], [facility] [phone] from Last 3 Months or Most Recently Relevant to Health Maintenance Insurance [facility] Advance Directives * Full Code (Latest Code [...] 8:14 PM 04/27/2022 6:26 PM Care Teams Charge Auditor Relationship Specialty Start Date End Date Key Tolliver MD [address] [place], [place] [phone] PCP - General 10/22/18 Pablo Liriano MD [address] [place] [address] [phone] Orthopedic Surgery 05/22/19 Evan Willis MD [address] [place] [address] [phone] Medical Oncologist Medical Oncology 11/02/21 Charles Kingston MD [facility] [address] [address] Tool Planner Cardiology 11/03/21
--- OUTSIDE RECORDS SUMMARY | 2025-06-17 16:19 | XMS_ITS | Data Portability ---
Author Organization [place] [facility] [employer], Main Office Address [address] [place] [address] Care Team Providers Care Data Scientist Name Role Phone KEY AMARO Primary Care Provider [phone] KEY AMARO Referring Provider Assessment Encounter Date Assessment Date Assessment LastModified by Organization Details LastModified Time 01/06/2025 01/06/2025 Assessment: Mild atelectasis Methacholine (+) mild persistent asthma Mild OSHS, HI = 2 Plan: The following were reviewed and explained to the patient: [facility] diagnostic sleep study 06/24/14 sleep onset = 2.5 minutes, REM onset = 75.5 minutes, AHI = 10, supine AHI = 13, REM AHI = 47, PLMI = 0.0 [facility] titration sleep study 07/13/14 sleep onset = [...] the plan. [email or web address] Not available 02/04/2025 17:35:17 04/08/2025 04/08/2025 Assessment: Mild atelectasis Methacholine (+) mild persistent asthma Mild OSHS, HI = 2 Plan: The following were reviewed and explained to the patient: [facility] diagnostic sleep study 06/24/14 sleep onset = 2.5 minutes, REM onset = 75.5 minutes, AHI = 10, supine AHI = 13, REM AHI = 47, PLMI = 0.0 [facility] titration sleep study 07/13/14 sleep onset = [...] immediately. Advised to continue not to smoke. Complete PFTs one week before return. Continue albuterol HFA as needed. Continue Flovent HFA 110 mcg 2 puffs BID. Gargle after [...] records to PCP for further management. Follow-up: 6 months, October 2025 [facility] Not available 04/08/2025 15:55:39 Plan of Treatment Reminders Order Date Submit Date Provider Last Modified By Organization Details Last Modified Time Details Appointments Any 30 2025 01:00P Cory Conteh MD Not available Not available Not available Lab None recorded. Referral None recorded. Procedures None recorded. Surgeries None recorded. Imaging XR, tibia + fibula 2024 025 [facility] [place], [address], [place], [address], 02/05/2025 08:21:09 Medication Orders albuterol sulfate HFA 90 mcg/actua tion aerosol inhaler 2024 025 [facility] #41768, [address] [place], [place], [id number], 04/08/2025 15:47:30 Flovent HFA 110 mcg/actua tion aerosol inhaler 2024 025 [facility] [address] [place], [place], [id number], 04/08/2025 15:47:35 meloxicam 15 mg tablet [address] [facility] #65084, [address] [place], [place], [id number], 04/08/2025 15:09:53 albuterol sulfate HFA 90 mcg/actua tion aerosol inhaler [email or web address] [facility] #29753, [address] [place], [place], [id number], 02/04/2025 15:12:53 Flovent HFA 110 mcg/actua tion aerosol inhaler 2024 025 [facility] #73027, [address] [place], [place], [id number], 01/06/2025 14:29:35 Patient TargetsNo targets recorded. Patient Instructions Encounter Date Encounter Id Patient Instructions Last Modified By Organization Details Last Modified Time 02/19/2025 [id number] we will start wi th a sinus CT. Not available 02/19/2025 14:47:45 04/08/2025 [id number] complete PFT w/ post bronchodilator spirometry* Not available 04/08/2025 15:47:25 05/14/2025 [id number] we have recommended a bite split but if ths is effective we will send her to a dentist for a custom molded splint Not available 05/14/2025 16:47:06 Reason for Referral None Reported. Results Created Date Observation Date Name Description Value Unit Range Abnormal Flag Note LastModifiedBy Organization Detail LastModifiedTime 12/16/1912/12/2024 CT, abdom en + pelvi s, w/ contr ast No observ ation record ed. [email or web address] Not Available 2024 08:46:43 02/05/20 XR, tibia + fibul a No observ ation record ed. [facility] [place] [address], [place], [address], 02/04/2025 15:17:14 03/05/20 25 03/05/2025 CT, maxil lofac ial, w/o contr ast [facility] [address] [address] Patien t Name: CHELA SUMNER Access ion #: [id number] Sex: F : 1969 7 Dictat ed By: Ankur butt Attend ing Physic kathi: HONEY DUMONT [facility] Physic kathi: TIM EVANS Exam Date: 2024 10:08 AM Exam Name: CT MAXILL OFACIA L WO Admitt ing Diagno sis(es ): Examin ation: CT MAXILL OFACIA L WO CLINIC AL INDICA TION: Chroni c sinusi tis. COMPAR ANTONIO: None. CONTRA ST USED: None. TECHNI QUE: A plain CT study of the sinus is perfor med. Techni que for this CT scan was done using princi ples of ALARA (As Low As Reason ably Achiev able). Multip lanar recons tructi ons were obtain ed. FINDIN GS: Both fronta l, ethmoi d, maxill edi and spheno id sinuse s appear clear. Right silvano bullos a. No apprec iable mucosa l thicke lopez or fluid accumu lation is seen. The bony outlin es of parana radha sinuse s appear intact . No obviou s bone erosio n or destru ction is seen. The ayala cordell and cribri form plates appear normal . The sectio n throug h the orbit reveal s normal retrob ulbar struct ures on either side. IMPRES TONE: No eviden ce of sinusi tis. Ryan onical ly Signed 03/05/20 13:49 Charity Davis onical ly Signed by: Ankur butt at 2024 13:49: [address] (Imaging) [address] [place], [address], 03/09/2025 16:07:00 03/05/20 25 03/05/2025 CT, sinus es, w/o contr ast No observ ation record ed. [address] ([employer]) [address] [place], [address], 03/05/2025 16:19:53 03/31/20 25 03/05/2025 CT, sinus es, w/o contr ast No observ ation record ed. [address] ([employer]) [address] [place], [address], 03/31/2025 16:14:00 Result Notes Documentation Provider Name and Address Organization Details Recorded Time Ct, Maxillofacial, W/o Contrast : [facility] [address] [place] [address] Patient Name: CHELA MCNULTY Sex: F : 1970 Dictated By: Ankur Noel Attending Physician: CATRACHO DUMONT Ordering Physician: TIM BELLA Exam Date: 03/05/2025 10:08 AM Exam Name: CT MAXILLOFACIAL WO Admitting Diagnosis(es): Examination: CT MAXILLOFACIAL WO CLINICAL INDICATION: Chronic sinusitis. COMPARISON: None. CONTRAST USED: None. TECHNIQUE: A plain CT study of the sinus is performed. Technique for this CT scan was done using principles of ALARA (As Low As Reasonably Achievable). Multiplanar reconstructions were obtained. FINDINGS: Both frontal, ethmoid, maxillary and sphenoid sinuses appear clear. Right silvano bullosa. No appreciable mucosal thickening or fluid accumulation is seen. The bony outlines of paranasal sinuses appear intact. No obvious bone erosion or destruction is seen. The ayala cordell and cribriform plates appear normal. The section through the orbit reveals normal retrobulbar structures on either side. IMPRESSION: No evidence of sinusitis. Electronically Signed 03/05/2025 13:49 Bert Pascual Mel Olsen RN [facility], [employer] 03/09/2025 16:07:00 Problems Name Problem SNOMED Code Status Onset Date Resolution Date Notes Provider Name and Address Organization Details Recorded Time Lupus erythematos 293190775 Active MD Nicole Nunez [address], [place], [address], [employer] 17:07:42 Osteoarthri tis of knee 151918481 Active Vinnie Conteh MD [address], [place], [address], [employer] [facility] 17:07:39 Hypertensiv e disorder 34378825 Active MD [address], [place], [address], [employer] [facility] 17:07:47 Hypothyroid ism 08427747 Active Vinnie Conteh MD [address], [place], [address], [employer] [facility] 17:07:45 Trigger finger of right hand 3614418784967 9101 Active 2019 MD Nicole Nunez [address], [place], [address], [employer] [facility] 17:07:35 History of total knee arthroplast y 2711850021099 Active 2019 MD Nicole [address], [place], [address], [employer] [facility] 17:07:50 Trigger finger of left hand 1543246402840 9107 Active 2020 Vinnie Conteh MD [address] [address] [address], [place], [address], [employer] [facility] 17:07:37 Acquired bilateral pes planus 7871423293147 9109 Active 2021 Vinnie Conteh MD [address], [place], [address], [employer] [facility] 17:07:56 Urge incontinenc e of urine 16164673 Active 2022 Vinnie Conteh MD [address] [address], [place], [address], [employer] [facility] 17:08:10 Gastroesoph ageal reflux disease without esophagitis 263530898 Active 2022 Vinnie Conteh MD [address] [address], [place], [address], [employer] 17:07:54 Mild persistent asthma 411965089 Active 2024 Vinnie Conteh MD [address] [address], [place], [address], [employer] 5 17:07:41 Pain of right temporomand ibular joint 3882351482257 9107 Active 2024 Tim Bella MD [address] [address], [place], [address], [employer] [facility] 16:46:36 Notes:Medical History: Depre ssion/Anxiety COVID infection Rhinitis Eosinophils 50/uL Early REM onset Obesity Methacholine (+) mild persistent asthma Mild restrictive airflow impairment Hypothyroidism Hyperlipidemia Hypertension EF 60% NATALIA Hepatic steatosis Granulomatous disease (lung, spleen) Urge urinary incontinence SLE Sepsis 2018 Vit D deficiency Osteoporosis Thoracolumbar DDD Pes planus Bilateral trigger fingers Procedure History: T&A 2001 Appendectomy 2003 Cholecystectomy 2004 ANN 2007 EGD 2010 Colonoscopy 2010 Left MRM for stage IIIB 2013 Right prophylactic mastectomy 2013 Chemotherapy/Radiation therapy 2014 Right total knee arthroplasty 2015 Left total knee arthroplasty 2016 Cardiac catheterization 2016 BSO 2017 Right foot surgery 2017 Left shoulder arthroplasties 2019, 2020 Bilateral breast implants 2023 Left knee revision 2024 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 Procedures Surgical History Date Name Laterality Status Provider Name and Address Organization Details Recorded Time 10/04/19 appendectomy completed Opal White [place] [facility] [place] [facility] 02/04/2025 15:14:33 Hysterectomy completed Not Available [facility] 11/01/2022 09:13:16 Rotator cuff surgery completed Not Available [facility] 11/01/2022 09:13:16 Knee Replacement completed Not Available [facility] 11/01/2022 09:13:16 Carpal tunnel surgery completed Not Available [facility] 11/01/2022 09:13:16 excision of bilateral breasts completed Not Available [facility] 09:13:16 Foot Surgery completed Not Available [facility] 11/01/2022 09:13:16 Endoscopy completed Not Available [place] [address] 11/01/2022 09:13:16 colonoscopy completed Not Available [facility] 11/01/2022 09:13:16 Breast Implants completed Payton fernández MA [facility] [place] [facility] 09/24/2024 15:15:52 [facility] [place] [facility] 02/04/2025 15:15:03 Spinal Fusion completed Opal White [place] Am[place] [facility] [place] [facility] 02/04/2025 15:15:23 tonsillectomy completed Mel Olsen RN [facility] [employer] [facility] 02/19/2025 14:31:25 Imaging Results None recorded. Procedure Notes None recorded. Medical Equipment None Reported. Allergies Allergen ID Allergen Name Allergen Category Reaction Reaction Severity Criticality Documentation Date Start Date Code Code System Note Provider Name and Address Organization Details Recorded Time 84595 adhesive tape environme nt,medica tion Not available Not available Not available 04/28/2024 ITCHI NG, RED Mel Olsen RN [facility], [facility] [place] [facility] 14:32:13 Medications Name Sig Start Date Stop Date Status Note LastModified by Organization Details LastModified Time celecoxib 200 mg capsule TAKE 1 CAPSULE BY MOUTH TWICE DAILY WITH MEALS 01/06 completed Not Available Not Available Not Available cyclobenzap rine 10 mg tablet TAKE 1 TABLET BY MOUTH THREE TIMES DAILY NEEDED FOR MUSCLE SPASM active Not Available Not Available No t Available amoxicillin 500 mg capsule TAKE 1 [...] completed Not Available Not Available Not Available cefpodoxime 200 mg tablet TAKE 1 TABLET BY MOUTH EVERY 12 HOURS active Not Available Not Available No t Available oxybutynin chloride ER 10 mg tablet,exte [...] mg-acetamin ophen 325 mg tablet TAKE 1 TO 2 TABLETS BY MOUTH EVERY 4 HOURS NEEDED FOR PAIN 02/19 completed Not Available Not Available Not Available sucralfate 100 mg/mL oral suspension SHAKE LIQUID AND TAKE 10 ML(1 GRAM) BY MOUTH THREE TIMES DAILY FOR STOMACH ACID OR REFLUX active Not Available Not Available No t Available ondansetron HCl 8 mg tablet TAKE [...] Available No t Available metoprolol succinate ER 100 mg tablet,exte [...] Available hydroxyzine HCl 50 mg tablet TAKE 1 TABLET BY MOUTH EVERY DAY AT BEDTIME active Not Available Not Available No t Available nifedipine ER 30 mg tablet,exte nded [...] TABLET BY MOUTH EVERY 8 HOURS NEEDED active Not Available Not Available No t Available quetiapine 100 mg tablet TK 1 [...] administe red by the provider 01/03 completed [facility]: 0003- 0494- 20 Not Available Not Available [...] 5 % topical patch APPLY 1 PATCH EVERY DAY FOR UP TO 12 HOURS AND REMOVE FOR 12 HOURS 02/19 completed Not Available Not Available Not Available fluticasone propionate 44 mcg/actuati on HFA aerosol inhaler INHALE 2 PUFFS BY MOUTH TWICE DAILY 04/08 completed Not Available Not Available Not Available [...] Available Not Available gabapentin 300 mg capsule active Not Available Not Available Not Available lidocaine HCl 2 % mucosal solution 06/19 completed Not Available Not Available Not Available omeprazole 20 mg capsule,del ayed release TAKE 1 TO 2 CAPSULES BY MOUTH EVERY DAY BEFORE A MEAL 2024 active Not Available Not Available Not Avai lable aspirin 81 mg chewable tablet CHEW AND [...] TABLET BY MOUTH EVERY NIGHT AT BEDTIME 04/08 completed Not Available Not Available Not Available gabapentin 100 mg capsule TK 1 [...] FOLLOW INSTRUCTI ONS GIVEN BY THE OFFICE 2024 active Not Available Not Available Not Avai lable levofloxaci n 500 mg tablet active Not [...] PUFF BY MOUTH EVERY 4 HOURS NEEDED active Not Available Not Available No t Available ketoconazol e 2 % topical cream [...] Available Not Available Not Available amoxicillin 875 mg-sujey m clavulanate 125 mg tablet TK 1 [...] administe red by the provider 01/03 completed [facility]: 0409- 4276- 17 Not Available Not Available [...] Not Available Vitals Date Recorded Heart rate Heart rate Respiratory rate Provider Name and Address Organization Details Last Updated DateTime 01/06/2025 91 /min 91 /min 15 /min Vninie Conteh MD [address], [facility] [address], [place], [address], [facility] [employer] [facility] 01/06/2025 14:20:35 Date Recorded Body height Body mass index (BMI) Body weight Body temperature Oxygen saturation Oxygen saturation in Arterial blood by Pulse oximetry Systolic And Diastolic Provider Name and Address Organization Details Last Updated DateTime 165.1 cm 38.1 kg/m2 948643. 65 g 98.5 [degF] 96 % 96 % 138/82 mm[Hg] Janet Zimmer MA [facility] [employer] 14:10:00 Date Recorded Body height Body mass index (BMI) Body weight Provider Name and Address Organization Details Last Updated DateTime 02/04/2025 165.1 cm 38.3 kg/m2 771152.25 g Opal White [facility] [employer] 02/04/2025 15:11:41 Date Recorded Body height Body mass index (BMI) Body weight Body temperature Provider Name and Address Organization Details Last Updated DateTime 02/19/2025 165.1 cm 38.6 kg/m2 704810.43 g 98 [degF] Mel Olsen RN [facility] [employer] 02/19/2025 14:36:46 Date Recorded Heart rate Respiratory rate Provider N josette and Address Organization Details Last Updated DateTime 04/08/2025 77 /min 14 /min Vinnie Conteh MD [address], [facility] [address], [place], [address], [facility] [employer] 04/08/2025 15:55:15 Date Recorded Body height Body mass index (BMI) Body weight Body temperature Heart rate Oxygen saturation Oxygen saturation in Arterial blood by Pulse oximetry Systolic And Diastolic Provider Name and Address Organization Details Last Updated DateTime 165.1 cm 38.8 kg/m2 307698. 02 g 98 [degF] 77 /min 96 % 96 % 124/82 mm[Hg] Payton Bryson MA [facility] [employer] 15:14:26 Date Recorded Body height Body mass index (BMI) Body weight Body temperature Provider Name and Address Organization Details Last Updated DateTime 05/14/2025 165.1 cm 38.3 kg/m2 199534.25 g 97.7 [degF] Mel Olsen RN [place] [facility] [place] [facility] 05/14/2025 16:37:15 Social History Question Answer Notes LastModified by Organizat ion Details LastModified Time Tobacco Smoking Status Never Smoker Not Available [facility] 11/01/2022 09:13:04 Do You Have An Advance Directive? No [id number] Information not available 11/01/2022 What Is Your Level Of Caffeine Consumption? None [id number] Information not available 11/01/2022 In The 14 Days Before Symptom Onset, Have You Had Close Contact With A Laboratory-confirm ed COVID-19 While That Case Was Ill? No [id number] Information not available 11/01/2022 In The 14 Days Before Symptom Onset, Have You Had Close Contact With A Person Who Is Under Investigation For COVID-19 While That Person Was Ill? No [id number] Information not available 11/01/2022 What Type Of Diet Are You Following? REGULAR [id number] 026 Information not available 11/01/2022 Do You Have An Electrostatic Air Filter? Yes Information not available 04/28/2024 Do You Have A Humidifier? Yes Information not available 04/28/2024 Do You Have Moisture Problems In Your Home? No Information not available 04/28/2024 What Was The Date Of Your Most Recent Tobacco Screening? 04/08/2025 Information not available 04/08/2025 Do You Have Any Pets? No Information not available 04/28/2024 What Is Your Relationship Status? [id number] Information not available 11/01/2022 Do You [...] Has Tobacco Cessation Counseling Been Provided? No [id number] 026 Information not available 11/01/2022 Have You Recently Traveled Abroad? No [id number] 026 Information not available 11/01/2022 Sex: Female Functional Status Question Answer Note LastModified by Organizat ion Details LastModified Time Do you use any illicit or recreational drugs? No [id number] Information not available 11/01/2022 Do you or have you ever used any other forms of tobacco or nicotine? No [id number] 026 Information not available 11/01/2022 What is your level of alcohol consumption? None [id number] 026 Information not available 11/01/2022 Are you currently employed? No Information not available 04/28/2024 Have you been exposed to chemicals or toxins? No not that aware of [email or web address] Information not available 01/06/2025 What is your exercise level? None [id number] 026 Information not available 11/01/2022 Mental Status Question Answer Note LastModified by Organization D etails LastModified Time Do you feel stressed (tense, restless, nervous, or anxious, or unable to sleep at night)? [id number] Information not available 04/28/2024 Family History Relationship Description Onset Age of this Age Resolved Age Notes LastModified by Organization Details LastModified Time Maternal Grandmother Heart disease [id number] Not available 11/01/2022 09:13:17 Maternal Aunt Heart disease [id number] Not available 11/01/2022 09:13:17 Father Migraine Not available 0 04/25/2024 13:11:10 Father Hypertensive disorder Not available 2023 13:11:19 Father Hyperlipidem ia Not available 2023 13:11:30 Father Osteoarthrit is Not available 2023 13:11:50 Paternal Grandmother Malignant neoplasm of breast Not available 2023 10:56:51 Paternal Aunt Malignant neoplasm of colon Not available 2023 10:57:16 Maternal Uncle Malignant neoplasm of larynx Not available 2023 10:57:28 Maternal [...] HAVE YOU BEEN HOSPITALIZED OR SEEN IN [facility] ER IN THE PAST YEAR ? N [...] Diagnosis SNOMED-CT Code Diagnosis ICD10 Code Diagnosis IMO Codes Diagnosis Note [id number] Ankur Espinal MD [facility] [place] [address] [place] [address] 01/25/2021 00:00:00 01/25/2021 16:40:12 [id number] Ankur Espinal MD Guer[facility] [place] [address] [place] [address] 04/05/2021 00:00:00 04/05/2021 14:39:42 [id number] Ankur Espinal MD [facility] [place] [address] [place] [address] 04/12/2021 00:00:00 04/12/2021 15:46:41 [id number] Ankur Espinal MD [facility] [place] [address] [place] [address] 04/19/2021 00:00:00 04/19/2021 14:45:42 [id number] Ankur Espinal MD [facility] [place] [address] [place] [address] 05/17/2021 00:00:00 05/31/2021 09:08:02 [id number] _ATHN_MIGR ATION_1 _ATHENA_M IGRATION_ DEFAULT_1 _1 , 06/15/2021 00:00:00 06/15/2021 15:14:16 [id number] Ankur Espinal MD [facility] [place] [address] [place] [address] 06/21/2021 00:00:00 06/21/2021 14:32:55 [id number] Ankur Espinal MD [facility] [place] [address] [place] [address] 08/02/2021 00:00:00 08/08/2021 14:20:31 [id number] Ankur Espinal MD [facility] [place] [address] [place] [address] 09/15/2021 00:00:00 09/15/2021 14:30:27 [id number] Ankur Espinal MD [facility] [place] [address] [place] [address] 11/17/2021 00:00:00 11/17/2021 15:28:48 [id number] [facility] [place] [address] [place] [address] 12/01/2021 00:00:00 12/01/2021 18:07:39 [id number] Ankur Espinal MD [facility] [place] [address] [place] [address] 01/03/2022 00:00:00 01/03/2022 17:30:11 [id number] [facility] [place] [address] [place] [address] 01/26/2022 00:00:00 01/27/2022 07:31:45 [id number] [facility] [place] [address] [place] [address] 02/02/2022 00:00:00 02/03/2022 09:58:36 [id number] [facility] [place] [address] [place] [address] 03/23/2022 00:00:00 03/24/2022 10:00:09 [id number] Ankur Espinal MD [facility] [place] [address] [place] [address] 04/04/2022 00:00:00 04/04/2022 15:46:20 [id number] Ankur Espinal MD [facility] [place] [address] [place] [address] 06/29/2022 00:00:00 06/29/2022 13:11:09 [id number] Ankur Espinal MD [facility] [place] [address] [place] [address] 09/07/2022 00:00:00 09/07/2022 14:14:38 [id number] Ankur Espinal MD [facility] [place] [address] [place] [address] 11/02/2022 14:09:04 11/02/2022 15:07:21 Low back pain 672963064 M54.50 Mechanical complication of implant 744947956 T85.698D Knee joint painful on movement 184853015 M25.569 Spinal hernan nosis of lumbar region 50714227 M48.061 History of left total knee replacement 3850304848 037388 Z96.652 History of right total knee replacement 1996267639 736755 Z96.651 Pain of ri ght shoulder joint 9972765926 0022354 M25.511 Tendinitis of right rotator cuff 0170257783 0242104 M67.813 [id number] Scott Lucas MD [facility] [address] [place] [address] [address] 12/11/2022 14:05:05 12/11/2022 14:38:46 Urge incontinence of urine 12774938 N39.41 Negative ua, low residual, went over options, will try Gemtesa 75 mg a day. [id number] Henna Wilson MD [facility] General Surgery [address] [place] [address] 03/14/2023 15:49:07 04/04/2023 13:12:05 Gastroesophageal reflux disease without esophagitis [id number] K21.9 [id number] Ankur Espinal MD [facility] [place] [place] [address] [place] [address] 03/29/2023 13:07:35 03/29/2023 13:36:11 Low back pain [id number] M54.50 History of bilateral total knee replacement [id number] 471568 Z96.653 Bilateral sacroiliac joint pain [id number] 7530317 M53.3 [id number] Henna Wilson MD [facility] General Surgery [address] [place] [address] 05/16/2023 15:06:28 05/16/2023 15:28:25 Gastroesophageal reflux disease without esophagitis [id number] K21.9 [id number] Ankur Espinal MD [facility] [place] [address] [place] [address] 05/17/2023 13:06:34 05/17/2023 14:32:54 Pain of right knee joint 0716613155 28060 M25.561 History of bilateral total knee replacement 1558342547 780836 Z96.653 History of right total knee replacement 4280038211 603713 Z96.651 Mechanical complication of implant 323618391 T85.698A T84.039A [id number] Ankur Espinal MD [facility] [place] [address] [place] [address] 05/22/2023 14:43:07 05/22/2023 15:21:27 History of total knee arthroplasty 4764935798 105 Z96.679 [id number] Henna Wilson MD [facility] General Surgery [address] [place] [address] 02/06/2024 14:11:19 02/06/2024 14:44:49 Gastroesophageal reflux disease without esophagitis 649766450 K21.9 [id number] Vinnie Conteh MD [facility] [address] [address] 04/28/2024 10:17:28 04/29/2024 08:48:30 Dyspnea on exertion 54968312 R06.09 R05.9 T78.40XA D89.9 C50.912 J43.9 [id number] Vinnie Conteh MD [facility] [address] [address] 06/25/2024 10:05:36 06/25/2024 12:53:26 Mild intermittent asthma 260332955 J45.20 [id number] Vinnie Conteh MD [facility] [address] [address] 09/24/2024 15:04:24 09/29/2024 14:54:32 Mild persistent asthma 737391957 J45.30 [id number] Vinnie Conteh MD [facility] [address] [address] 10/07/2024 11:33:54 10/07/2024 14:07:21 Mild persistent asthma 624426315 J45.30 [id number] Henna Wilson MD [facility] General Surgery [address] [place] [address] Ave[address] [place] [address] 10/22/2024 12:27:09 10/22/2024 12:56:20 Gastroesophageal reflux disease without esophagitis 913281721 K21.9 Liver enzy mes level above reference range 719698998 R74.01 Epigastric pain 11786151 R10.13 [id number] Henna Wilson MD [facility] General Surgery [address] [place] [address] 1 11/05/2024 15:28:46 11/05/2024 16:20:13 Gastroesophageal reflux disease without esophagitis 663751077 K21.9 Liver enzy mes level above reference range 514269438 R74.01 Epigastric pain 73463415 R10.13 OUT OF PROPORTION WITH EXAM. [id number] Vinnie Conteh MD [place] [address] 01/06/2025 13:57:27 01/06/2025 14:40:37 Mild persistent asthma 550027542 J45.30 [id number] Yadiel Guzman MD [facility] [place] [address] [place] [address] 02/04/2025 14:57:59 02/04/2025 16:01:27 Pain of right lower leg 0527254092 73470 79.605 [id number] Tim Bella MD [facility] [place] [address] [place] [address] 02/19/2025 14:21:47 02/20/2025 07:58:13 Chronic sinusitis 42500037 J32.9 [id number] [id number] Vinnie Conteh MD [facility] [address] 04/08/2025 14:56:06 04/08/2025 18:27:16 Mild persistent asthma 124866332 J45.30 [id number] Tim Bella MD [facility] [place] [address] [place] [address] 05/14/2025 16:31:42 05/15/2025 08:40:45 Pain of right temporomandibular joint 7512848401 3356532 M26.621 75670181 Health Concerns Section Related Observation LastModified by Organization Detai ls LastModified Time None Recorded Concern Status LastModified by Organization Details LastModified Time None Recorded Advance Directives Directive N: Payers Insurance Date Sequence Insurance Name Policy Number Policy Casarez Covered Member ID Casarez Member ID Guarantor Name 06/03/2025 1 [facility] - DOS ON OR AFTER 21 (MEDICAID REPLACEMENT - HMO) Chela Mcnulty [id number] Chela Mcnulty Notes Date Note Type Note Provider Name and Address Organization Details Recorded Time 01/06/2025 text/html Primary care/Referring provider: Key Amaro MD; Charles Kingston MD [...] staircase, wipingAlleviating factors: rest Modified [employer] [place] ([employer]) Dyspnea Scale - Grade 2Grade 0 [...] of dozing. Vinnie Conteh MD [address], [place], [address], [facility] [employer] 01/06/2025 14:34:38 02/19/2025 text/html this patient reports a history of sinus surgery in 1999. Currently she has sinus congestion and facial pressure. This is mostly on the right side. She also has headaches. She has had some right ear pain as well. This has been going on for over a year Tim Bella MD [address], [place], [address], [place] - [facility] 02/19/2025 14:48:14 04/08/2025 text/html Primary care/Referring provider: Key Amaro MD; Charles Kingston MD CC: The higher dose of Flovent is more helpful. Patient is here to go over her asthma management. Initial development of shortness of breath: 1989Duration of shortness of breath: 37 yearsCondition of shortness of breath: stableTiming of shortness of breath: noneFrequency: up to 3 times a dayLimits activities: yesAggravating factors: walking, going up a 7-step staircase, wipingAlleviating factors: rest Modified [employer] [place] ([employer]) Dyspnea Scale - Grade 2Grade 0 [...] Flovent HFA 44 mcg 2 puffs BID 09/2024-01/2025Flovent FMC603 mcg 2 puffs BID since 01/2025 Other symptoms:Drooling: noDysarthria: noNeck pain: noOdynophagia: noDysphagia: [...] of dozing. Vinnie Conteh MD [address], [place] [address], [place], [address], [place] [employer] 04/08/2025 15:56:30 05/14/2025 text/html the CT scan was normal and the patient continues to report pain with chewing on the right side. Discussed her hearing but she insists that her hearing is normal. Tim Bella MD [address], [facility] [address], [place], [address], [place] [facility] [employer] 05/14/2025 16:47:30 OBGyn Episode No OBEpisode recorded.
--- OUTSIDE RECORDS SUMMARY | 2025-06-17 16:19 | XMS_ITS ---
Author Organization [facility] Address [address] 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
--- OUTSIDE RECORDS SUMMARY | 2025-06-17 16:20 | XMS_ITS | Clinical Summary ---
Author Organization [facility] Address [address] [place] [address] Phone Care Team Providers Care Butt Welder Name Role Phone NILESH DUKE MD Primary Care Provider [phone] Reason for Visit and Chief Complaint * PHONE CALL Problems Includes: Problems addressed during this encounter and other active Problems All Visits Onset Date Resolved Date Provider Condition S tatus Chronic Pain Syndrome 07/31/2023 NURY ECHAVARRIA PMHNP Active Last Documented On 3 1:32PM ; [facility] Plan of Treatment No Plan [...] On 4 2:31PM By FELISHA WUBC ; [facility] Hysingla ER 20 MG Oral Table t ER 24 Hour Abuse-Deterrent 01/21/2024 Provider: FELISHA FREEMAN ANP-BC Diagnosis: Spinal stenosis, lumbar region with neurogenic claudication 1 tablet q 24 hours Last Documented On 4 2:31PM By FELISHA SENIOR ; [facility] oxyCODONE-Acetaminophen 10-325 MG Oral Tablet 01/15/20 24 Provider: Diagnosis: Last Documented On 02/01/2024 8:52AM By Lilli MAK ; [facility] traZODone HCl 100 MG Oral Tablet 11/02/2023 Provider : Diagnosis: Last Documented On 4 10:13AM By Lilli MAK ; [facility] Cyclobenzaprine HCl 10 MG Oral Tablet 10/29/2023 Pro vider: REFUGIO AMARO MD Diagnosis: Last Documented On 4 10:15AM By Lilli MAK ; [facility] Ketoconazole 2% External Cream 10/29/2023 Provider: REFUGIO AMARO MD Diagnosis: Last Documented On 4 10:15AM By Lilli MAK ; [facility] hydrOXYzine HCl 50 MG Oral Tablet 10/26/2023 Provide r: Diagnosis: Last Documented On 4 10:16AM By Lilli MAK ; [facility] Anastrozole 1 MG Oral Tablet 10/24/2023 Provider: Diagnosis: Last Documented On 4 10:16AM By Lilli MAK ; [facility] FeroSul 325 (65 Fe) MG Oral Tablet 10/24/2023 Provid er: Diagnosis: Last Documented On 4 10:18AM By Lilli MAK ; [facility] Venlafaxine HCl ER 225 MG Oral Tablet Extended R elease 24 Hour 10/23/2023 Provider: Diagnosis: Last Documented On 4 10:18AM By Lilli MAK ; [facility] Pregabalin 200 MG Oral Capsule 10/08/2023 Provider: FELISHA SENIOR Diagnosis: Fibromyalgia TAKE 1 CAPSULE BY MOUTH TWICE DAILY Last Documented On 4 1:51PM By FELISHA SENIOR ; [facility] Omeprazole 40 MG Oral Capsule Delayed Release 08/11/20 Provider: Diagnosis: Last Documented On 4 10:17AM By Lilli MAK ; [facility] Lisinopril 40 MG Oral Tablet 04/11/2023 Provider: REFUGIO AMARO MD Diagnosis: Last Documented On 3 10:40AM By Lilli MAK ; [facility] Famotidine 20 MG Oral Tablet 01/23/2023 Provider: Diagnosis: Last Documented On 02/05/2023 4:01PM By Lilli MAK ; [facility] ARIPiprazole 2 MG Oral Tablet 01/09/2023 Provider: Diagnosis: Last Documented On 02/05/2023 4:04PM By Lilli MAK ; [facility] busPIRone HCl 15 MG Oral Tablet 09/20/2022 Provider: Diagnosis: Last Documented On 02/05/2023 4:05PM By Lilli MAK ; [facility] NIFEdipine ER 30 MG Oral Tab let Extended Release 24 Hour 05/04/2022 Provider: REFUGIO AMARO MD Diagnosis: Last Documented On 05/09/2022 3:25PM By Lilli MAK ; [facility] Metoprolol Succinate ER 200M G Oral Tablet Extended Release 24 Hour 10/03/2018 Provider: Diagnosis: Last Documented On 9 3:00PM By VENKAT MAK ; [facility] Medications Administered Includes: Administered Medications from this encounter No Administered Medications Recorded Results Includes: Results discussed during this encounter No Results Recorded For Specified Dates History of Present Illness Includes: History of Present Illness from this encounter No History of Present Illness Recorded Social History Description Last Updated Tobacco non-user 11/07/2023 Last Documented On 4 11:54AM ; [facility] Alcohol 07/31/2023 Last Documented On 4 11:54AM ; [facility] Consuming 5 or more drinks per day None 07/31/2023 Last Documented On 4 11:54AM ; [facility] Current nonsmoker 07/31/2023 Last Documented On 4 11:54AM ; [facility] Drug use 07/31/2023 Last Documented On 4 11:54AM ; [facility] Lives with spouse 07/31/2023 Last Documented On 4 11:54AM ; [facility] Non-smoker 07/31/2023 Last Documented On 4 11:54AM ; [facility] Number of times used recreat ional drug/ prescription drug for nonmedical reason. None 07/31/2023 Last Documented On 4 11:54AM ; [facility] Smoking status : Never smoker 08/07/2019 Last Documented On 4 11:54AM ; [facility] Currently 10/03/2018 Last Documented On 4 11:54AM ; [facility] Medical History Includes: Medical History addressed during this encounter Description Last Updated Reviewed and Unchanged 10/10/2019 Last Documented On 4 11:54AM ; [facility] Currently wearing eyeglasses 10/03/2018 Last Documented On 4 11:54AM ; [facility] Previously 3 time(s) 10/03/2018 Last Documented On 4 11:54AM ; [facility] History of arthritis 10/03/2018 Last Documented On 4 11:54AM ; [facility] History of cancer 10/03/2018 Last Documented On 4 11:54AM ; [facility] History of hypertension 10/03/2018 Last Documented On 4 11:54AM ; [facility] Family History Includes: Family History addressed [...] Active Last Documented On 4 8:53AM ; [facility] Encounters Encounter Provider Location Date Check-In Time Check-Out Time Diagnosis * PHONE CALL FELISHA HERRERA-TAMIKO 12/21/2023 11:54AM 11:59PM Insurance Includes: Active Insurance Policies Plan Name Member ID Group # Subscriber Relationship Effect nieves Dates - [facility] [id number] KATHY Sanchez Clinical Notes Includes: Clinical Notes from this encounter * Progress note Date Encounter Last Documented by 12/21/2023 * PHONE CALL Last documented on 12/28/2023; 8:42 AM, FELISHA GIBSON ANP-; [facility] Active Problems & Conditions - Chronic Pain Syndrome Chief Complaint Phone Call - Chief Concern: reason for call:pt wanted to let you know she was given tramadol, i just picked it up but tramadol doesn't do anything for me, she just wanted you to be aware she was given this rx, michelle pt phone # for return call:[phone] date/initials:12/21/23, kms. Past Medical/Surgical History Reported: Medical: [...]
--- OUTSIDE RECORDS SUMMARY | 2025-06-17 16:20 | XMS_ITS | Encounter Summary ---
Author Organization [facility] Address [address] [place] [address] Care Team Providers Care Poultry Hatchery Man Name Role Phone Key Tolliver MD Primary Care Provider [phone] Reason for Visit * Reason Comments Medication Refill Encounter Details Date Type Department Care Team ([facility] Contact Info) Description 05/11/2020 [facility] [address] [address] [place] [address] Rodolfo Truong MD [address] [facility] [facility] [address] [place] [address] Malignant neoplasm of upper-outer quadrant [...] on file Legal Sex Female 1:52 PM LACE PINNER Gender Identity Not on file Sexual Orientation Not on file COVID-19 Exposure Response Date Recorded In the last month, have you been in contact with someone who was confirmed or suspected to have Coronavirus / COVID-19? No / Unsure 04/29/2020 10:13 AM CDT documented as of this encounter Plan of Treatment Upcoming Encounters Date Type Department Care Team ([facility] Contact Info) Description 06/25/2025 2:00 PM CDT Office Visit [facility] Oncology and Hematology - [place] [address] [place] [address] Evan Willis MD [address] [facility] [address] [place] [address] 08/17/2025 1:00 PM LACE PINNER Office Visit [facility] Plastic Surgery at the [facility] [address] [place] [phone] Rodolfo Truong MD [address] [facility] [address] [place], [place] [phone] documented as of this encounter Visit Diagnoses Diagnosis Malignant neoplasm of upper-outer quadrant of left breast in female, estrogen receptor positive (CMS/HCC) documented in this encounter Care Teams Poultry Hatchery Man Relationship Specialty Start Date End Date Key Tolliver MD [address] [place] [address] PCP - General Internal Medicine 11/05/18 documented as of this encounter
--- OUTSIDE RECORDS SUMMARY | 2025-06-17 16:21 | XMS_ITS | Encounter Summary ---
Author Organization [facility] [employer] [facility] Address [address] [place] [address] Care Team Providers Care Integration Lead Name Role Phone Key Tolliver MD Primary Care Provider [phone] Encounter Details Date Type Department Care Team ([facility] Contact Info) Description 06/17/2025 Orders Only [facility] Oncology and Hematology - [address] [place] [address] [place] [address] [place] [address] [address] [place] [address] Social History Tobacco Use Types Packs/Day Years [...] on file Legal Sex Female 1:52 PM MARKETING AND OUTREACH COORDINATOR Gender Identity Not on file Sexual Orientation Not on file documented as of this encounter Plan of Treatment Upcoming Encounters Date Type Department Care Team ([facility] Contact Info) Description 06/25/2025 2:00 PM CDT Office Visit [facility] Oncology and Hematology - [address] [place] [address] Evan Willis MD [address] [place] [address] 08/17/2025 1:00 PM MARKETING AND OUTREACH COORDINATOR Office Visit [facility] Plastic Surgery at the [facility] [address] [facility] [address] [place] [address] Rodolfo Truong MD [address] [place], [place] [phone] documented as of this encounter Procedures Procedure Name Priority Date/Time Associated Diagnosis Comments COMPREHENSIVE METABOLIC PANEL Routine 06/16/2025 7:55 AM CDT documented in this encounter Results * COMPREHENSIVE METABOLIC PANEL (06/16/2025 7:55 AM CDT) Blood Evan Willis MD CHEMISTRY ORDERABLES Final Resu lt documented in this encounter Visit Diagnoses Not on filedocumented in this encounter Care Teams Integration Lead Relationship Specialty Start Date End Date Key Tolliver MD [address] [place] [phone] PCP - General Internal Medicine 11/05/18 documented as of this encounter
--- OUTSIDE RECORDS SUMMARY | 2025-06-17 16:21 | XMS_ITS | Clinical Summary ---
Author Organization [facility] Address [address] [place] [address] Care Team Providers Care Band Shover Name Role Phone Key Tolliver MD Primary [...] CDT - 06/11/2025 4:42 PM CDT Emergency [facility] Emergency Department [address] [place] [address] Fall, 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Primary Dx); Acute right-sided low back pain with right-sided sciatica; Sprain of left ankle, unspecified ligament, initial encounter Discharge Disposition: Discharge to home or self care 06/09/2025 Results Follow-Up [facility] Neurology [address] [place] [phone] Peggy Reid MA EEG 06/08/2025 2:28 PM CDT - 06/08/2025 11:59 PM CDT Hospital Encounter [facility] MRI [address] [place] [address] Altered mental status, unspecified altered mental status type Discharge Disposition: Discharge to home or self care 06/08/2025 1:13 PM CDT - 06/08/2025 11:59 PM CDT Hospital Encounter [facility] Cardiac Testing [address] [place] [address] Altered mental status, unspecified altered mental status type Discharge Disposition: Discharge to home or self care 05/27/2025 Telephone [facility] [address] [place] [phone] Linden Walter Si, MD Scheduling Appointments (CALL SCHEDULING ) 05/26/2025 1:30 PM CDT Office Visit [facility] [address] [place] [phone] Linden Walter Si, MD Altered mental status, unspecified altered mental status type (Primary Dx); Stuttering 05/14/2025 2:33 PM CDT - 05/14/2025 11:59 PM CDT Hospital Encounter [facility] [address] [place] [phone] Discharge Disposition: Discharge to home or self care 05/14/2025 2:33 PM CDT - 05/14/2025 11:59 PM CDT Hospital Encounter [facility] [address] [place] [phone] Discharge Disposition: Discharge to home or self care 05/14/2025 2:00 PM CDT Office Visit [facility] at [address] [phone] Jace Muller MD Pain in left foot (Primary Dx); Peroneal tendonitis of left lower leg 04/13/2025 12:00 PM CDT Office Visit [facility] Cardiology [address] [place] [address] Marialuisa Anglin MD Essential hypertension (Primary Dx); BAEZ (dyspnea on exertion); Hypercholesteremia 03/26/2025 Telephone [facility] Neurology [address] [place] [address] Provider, MD Viktor Scheduling Appointments [...] on file Legal Sex Female 6:25 PM MEDIA ASSOCIATE Gender Identity Not on file Sexual Orientation [...] Naveen Dash M.D. WILY: WILY Report ID: [id number] Reading Location: [id number] Procedure Note Naveen Dash MD - 06/11/2025 [...] Naveen Dash M.D. WILY: WILY Report ID: [id number] Reading Location: [place] [address] Rashawn Cloud NP [facility] CT PROCEDURES Final Result * XR Ankle Left 3 or More Views (06/11/2025 3:53 PM CDT) Anatomical Region Laterality Modality Lower Extremities, Ankle Left Compute d Radiography 06/11/2025 3:57 PM CDT Narrative 06/11/2025 4:02 PM CDT [...] Jose Chan M.D. KR: JAKE Report ID: [id number] Reading Location: [id number] Procedure Note Jose Chan MD - 06/11/2025 [...] Jose Chan M.D. KR: JAKE Report ID: [id number] Reading Location: [id number] us Rashawn Cloud DUDE RANCH MANAGER IMG XR PROCEDURES Final Result * MRI [...] by Rodolfo Tapia M.D. T: Report ID: [id number] Reading Location: [id number] Procedure Note Rodolfo Tapia, - 06/08/2025 EXAM DESCRIPTION: MRI BRAIN WO [...] by Rodolfo Tapia M.D. T: Report ID: [id number] Reading Location: [place] [address] Linden Walter MD IMG MRI PROCEDURES Final [...] agrees with it. ACC# Date Time Exam [id number] May 07, 2013 13:59:00 [facility] [id number] Bilateral Tomosynthesis Technologist(s): Ashley Batista; ; [id number] May 07, 2013 13:59:00 [facility] [id number] Diag Mammogram Bilateral Technologist(s): Ashley Batista; ; [id number] May 07, 2013 14:24:00 [facility] [id number] Sono Breast (Unilateral) L EXAMINATION: BILATERAL FULL [...] diagnostic mammogram and accompanying ultrasound performed at [facility] on 04/28/2013. BREAST PARENCHYMAL COMPOSITION: Heterogeneously dense, [...] has been scheduled to return to the [facility] for an ultrasound-guided core needle biopsy of [...] agrees with it. ACC# Date Time Exam [id number] May 07, 2013 13:59:00 [facility] [id number] Bilateral Tomosynthesis Technologist(s): Ashley Batista; ; [id number] May 07, 2013 13:59:00 [facility] [id number] Diag Mammogram Bilateral Technologist(s): Ashley Batista; ; [id number] May 07, 2013 14:24:00 [facility] [id number] Sono Breast (Unilateral) L EXAMINATION: BILATERAL FULL [...] diagnostic mammogram and accompanying ultrasound performed at [facility] on 04/28/2013. BREAST PARENCHYMAL COMPOSITION: Heterogeneously dense, [...] has been scheduled to return to the [facility] for an ultrasound-guided core needle biopsy of [...] CDT PROCEDURE REPORT Patient: CHELA MCNULTY Account: [id number] Room No: 2619-01 : 1970 Patient Type: Attend.: Peter Fowler M.D. Admit Date: 06/22/2011 [...] Most Recently Relevant to Health Maintenance Insurance [facility] Care Teams Band Shover Relationship Specialty Start Date End Date Key Tolliver MD [address] [place] [id number] PCP - General Internal Medicine 12/08/24
--- OUTSIDE RECORDS SUMMARY | 2025-06-17 16:21 | XMS_ITS | Encounter Summary ---
Author Organization [facility] Healthcare Address [address] [place], [place] [address] Care Team Providers Care Cyber Security Specialist Name Role Phone Key Tolliver MD Primary Care Provider Reason for Visit * Reason Onset Date Comments Test Results 06/09/2025 Results MRI Brai n and EEG Encounter Details Date Type Department Care Team ([facility] Contact Info) Description 06/09/2025 Results Follow-Up [facility] Neurology [address] [place] [phone] Peggy Reid MA EEG Social History [...] on file Legal Sex Female 6:25 PM KEY ACCOUNT REPRESENTATIVE Gender Identity Not on file Sexual Orientation [...] on filedocumented in this encounter Care Teams Cyber Security Specialist Relationship Specialty [place] [address] [place] [address] PCP - General Internal Medicine 12/08/24 documented as of this encounter
--- OUTSIDE RECORDS SUMMARY | 2025-06-17 16:21 | XMS_ITS | Clinical Summary ---
Author Organization [facility] Address [address] [place] [address] Care Team Providers Care Admitting Representative Name Role Phone Unavailable Primary Care Provider Unavailabl e Allergies Active Allergy Reactions Criticality Noted Date Comments Tape Rash Low 09/12/2016 Medications anastrozole 1 MG tablet TAKE 1 TABLET(1 MG) BY MOUTH DAILY 7 Active cholecalciferol (D3-50) 52793 units capsule Take 100,000 Units by mouth [...] A MEAL 8 Active multi vitamin/mineral s (VITAMINS/VETERANS' COORDINATOR ALS) tablet Take 1 tablet by mouth. [...] Comments Blood Pressure 146/90 08/01/2018 1:02 PM BLACKSMITH HAMMER OPERATOR Pulse 89 08/01/2018 1:02 PM BLACKSMITH HAMMER OPERATOR Temperature 36.6 C (97.9 F) 08/01/2018 1:02 PM BLACKSMITH HAMMER OPERATOR Respiratory Rate 20 08/01/2018 1:02 PM BLACKSMITH HAMMER OPERATOR Oxygen Saturation 100% 08/01/2018 1:02 PM BLACKSMITH HAMMER OPERATOR Inhaled Oxygen Concentration - - Weight 88 kg (194 lb) 08/01/2018 1:02 PM BLACKSMITH HAMMER OPERATOR Height 167.6 cm (5' 6) 08/01/2018 1:02 PM BLACKSMITH HAMMER OPERATOR Body Mass Index 31.31 08/01/2018 1:02 PM BLACKSMITH HAMMER OPERATOR Plan of Treatment Health Maintenance Due Date [...] patient's age to complete this topic Insurance [place] [address] [address]
--- OUTSIDE RECORDS SUMMARY | 2025-06-17 16:21 | XMS_ITS | Encounter Summary ---
Author Organization [facility] Address [address] [place] [address] Care Team Providers Care Gifts Officer Name Role Phone Key Tolliver MD Primary Care Provider [phone] Reason for Visit * Reason Comments Medication Refill Encounter Details Date Type Department Care Team ([facility] Contact Info) Description 11/05/2019 Refill [facility] [address] [phone] Rodolfo Truong MD [address] [facility] [address] [place] [address] Social History Tobacco Use Types Packs/Day Years Used Date Smoking Tobacco: Never Smokeless Tobacco: Never Alcohol Use Standard Drinks/Week Comments No 0 (1 standard drink = 0.6 oz pur e alcohol) Comments No Sex and Gender Information Value Date Recorded Sex Assigned at Not on file Legal Sex Female 1:52 PM PHARMACOVIGILANCE SCIENTIST Gender Identity Not on file Sexual Orientation Not on file documented as of this encounter Plan of Treatment Upcoming Encounters Date Type Department Care Team ([facility] Contact Info) Description 06/25/2025 2:00 PM CDT Office Visit [facility] Oncology [facility] Hematology - [place] [address] [facility] [address] [place] [address] Evan Willis MD [address] [facility] [facility] [address] [place] [address] 08/17/2025 1:00 PM PHARMACOVIGILANCE SCIENTIST Office Visit [facility] Surgery at the [facility] [address] [facility] [address] [place] [address] Rodoflo Truong MD [address] [facility] [address] [place] [address] documented as of this encounter Visit Diagnoses Not on filedocumented in this encounter Care Teams Gifts Officer Relationship Specialty Start Date End Date Key Tolliver MD [address] [place] [address] PCP - General Internal Medicine 11/05/18 documented as of this encounter
[2025-06-17 16:22] LABS: Add Urine Microscopic? YES; Appearance Urine Clear (Clear); Glucose Urine UA Negative (Negative); Leukocyte Esterase Ur 2+ LEU/UL (Negative); Nitrate Urine Negative (Negative); Non Pathogenic Casts 0-2; Specific Grav Ur 1.017 (1.001-1.035)
[2025-06-17 16:42] LABS: Hematocrit 38.4 % (37.0-47.0); Hemoglobin 12.4 g/dL (12.0-15.0); Immature Granulocyte Percent A 0.3 % (0-0.5); Lymphocytes Absolute Auto 2.82 K/mm3 (0.9-3.2); Mean Corpuscular HGB Conc 32.3 g/dl (32-36); Mean Corpuscular Hemoglobin 27.4 pg (26-34); Mean Corpuscular Volume 84.8 fl (80-100); Nucleated Red Blood Cells Absolute Auto 0.000 K/mm3 (0.0-0.012); Nucleated Red Blood Cells Perc 0.0 % (0.0-0.2); Platelet Count Result 291 k/mm3 (150-375); Red Blood Count 4.53 M/mm3 (4.2-5.4); White Blood Count 6.1 K/mm3 (4.5-10.0)
[2025-06-17 16:54] LABS: Anion Gap 12 mmol/L (4-12); Blood Urea Nitrogen 17 mg/dL (7-17); Calcium 9.1 mg/dL (8.4-10.2); Carbon Dioxide 25 mmol/L (22-30); Chloride 100 mmol/L (98-107); Estimated CRCL calculation 74 ml/min; Estimated Glomerular Filt Rate > 60; Glucose 87 mg/dL (65-110); INR 1.0; Potassium 4.1 mmol/L (3.4-5.0); Prothrombin Time 13.1 Seconds (11.1-14.7); Sodium 137 mmol/L (137-145)
[2025-06-17 16:55] LABS: Partial Thromboplastin Time 23.3 Seconds (22.3-36.8)
[2025-06-17] MEDS: KETOROLAC 15 MG/ML VIAL (*BKC) IV PUSH (17:01)
[2025-06-17] MEDS: MORPHINE SULFATE (*CRX) 4 MG/ML INJ IV PUSH (17:01)
--- OUTSIDE RECORDS SUMMARY | 2025-06-17 17:42 | XMS_ITS ---
Author Organization [facility] Address [address] [place] [address] Care Team Providers Care Space Systems Operations Superintendent Name Role Phone Key Tolliver MD Primary Care Provider Pablo Liriano MD Unavailable Evan Willis MD Unavailable [phone] Charles Kingston MD Unavailable Active Problems [...] hyperlipidemia 03/30/2021 Atherosclerotic heart diseas e of [place] coronary artery without angina pectoris 03/30/2021 Chest [...]
--- OUTSIDE RECORDS SUMMARY | 2025-06-17 17:42 | XMS_ITS ---
Author Organization [facility] Address [address] [place] [address] Phone Care Team Providers Care Manager Market Intelligence Name Role Phone LEILANI MABRY, NILESH Primary Care Provider [phone] Problems Includes: Active, inactive, and resolved Problems All Visits Onset Date Resolved Date Provider Condition S tatus Chronic Pain Syndrome 07/31/2023 NURY ECHAVARRIA PMHNP Active Last Documented On 3 1:32PM ; [facility] Plan of Treatment Referrals To Diagnosis Pain Management [address] [address] - Radiculopathy, lumbar region Note: consent for bilateral L4-5 transforaminal epidural Last Documented On 9 3:07PM ; [facility] Pain Management [address] [address] - Radiculopathy, lumbar region Note: consent for bilateral L4-5 transforaminal epiduralDr Sami Last Documented On 9 9:01AM ; [facility] Pain Management [address] [address] - Spondylosis w/o myelopathy or radiculopathy, cervical region Note: consent for bilateral C5, C6, C7 medial branch blocks Last Documented On 2 10:14AM ; [facility] Pain Management [facility] - [address] [place] [address] - Spondylosis w/o myelopathy or radiculopathy, lumbar region Note: consent for bilateral L3, L4. L5 medial branch blocks Last Documented On 3 10:10AM ; [facility] Psychiatrist NURY ECHAVARRIA PMHNP - [facility] - [address] [place] [address] - Chronic pain syndrome Note: Psychological evaluati on for implantable device therapies (spinal cord stimulation).Diagnosis: chronic pain syndrome, lumbosacral spondylosis with stenosis and neurogenic claudication recalcitrant to conservative care. Last Documented On 4 3:51PM ; [facility] Counselor [facility] - [address] [place] [address] - Chronic pain syndrome [facility] Last Documented On 4 1:40PM ; [facility] Education and Decision Aids were provided during visit for: Pill Count: 25 HYSINGLA Last Documented On 4 8:54AM ; [facility] Pill Count: two HYSINGLA Last Documented On 4 9:14AM ; [facility] Pill Count: HYDROCODONE ~out of medication Last Documented On 4 9:14AM ; [facility] Pill Count: two HYSINGLA Last Documented On 4 11:00AM ; [facility] Pill Count: HYDROCODONE ~out of medication Last Documented On 4 11:43AM ; [facility] Pill Count: HYDROCODONE ~out of medication Last Documented On 4 9:34AM ; [facility] Pill Count: HYDROCODONE ~out of medication Last Documented On 4 10:37AM ; [facility] Pill Count: HYDROCODONE ~out of medication Last Documented On 4 1:44PM ; [facility] Pill Count: two HYDROCODONE Last Documented On 4 1:15PM ; [facility] Patient education about adve rse reactions to medication Last Documented On 3 10:43AM ; [facility] Reviewed side effects and Ri sks/Benefits analysis Last Documented On 3 10:43AM ; [facility] Pill Count: 19 HYDROCODONE Last Documented On 3 2:06PM ; [facility] Pill Count: 19 HYDROCODONE Last Documented On 3 10:39AM ; [facility] Pill Count: 50 HYDROCODONE Last Documented On 3 10:50AM ; [facility] Pill Count: one HYDROCODONE Last Documented On 3 3:49PM ; [facility] Pill Count: six HYDROCODONE Last Documented On 3 10:14AM ; [facility] Pill Count: 38 HYDROCODONE Last Documented On 3 1:23PM ; [facility] Pill Count: 49 HYDROCODONE Last Documented On 2 10:01AM ; [facility] Pill Count: 62 HYDROCODONE Last Documented On 2 3:28PM ; [facility] Pill Count: 61 HYDROCODONE Last Documented On 2 4:14PM ; [facility] Pill Count: 62 HYDROCODONE Last Documented On 2 4:21PM ; [facility] Pill Count: Patient did not bring pain medication to appointment for pill count, per policy. Advised in order to continue to safely prescribe opioids, medication must be brought to each appointment Last Documented On 2 4:14PM ; [facility] Pill Count: 82 HYDROCODONE Last Documented On 2 3:55PM ; [facility] Pill Count: Patient did not bring pain medication to appointment for pill count, per policy. Advised in order to continue to safely prescribe opioids, medication must be brought to each appointment Last Documented On 2 4:19PM ; [facility] Pill Count: Patient did not bring pain medication to appointment for pill count, per policy. Advised in order to continue to safely prescribe opioids, medication must be brought to each appointment Last Documented On 1 1:41PM ; [facility] Pill Count: five Not Appropr iate Had surgery and did not fill the pain med that was given after suregery Last Documented On 1 1:11PM ; [facility] Pill Count: 21 Appropriate Last Documented On 1 3:19PM ; [facility] Pill Count: 21 Appropriate Last Documented On 1 5:34PM ; [facility] Pill Count: 21 Appropriate Last Documented On 1 5:23PM ; [facility] Pill Count: ten Not Appropri ate ; discussed taking only as prescribed for back pain not myalgia symptoms related to covid Last Documented On 1 3:58PM ; [facility] Pill Count: 0 Last Documented On 0 3:51PM ; [facility] Pill Count: Patient did not bring pain medication to appointment for pill count, per policy. Advised in order to continue to safely prescribe opioids, medication must be brought to each appointment Last Documented On 0 3:02PM ; [facility] Pill Count: two Appropriate Last Documented On 0 7:51AM ; [facility] Pill Count: seven Appropriat e Last Documented On 0 10:51AM ; [facility] Pill Count: three Appropriat e Last Documented On 0 12:30PM ; [facility] Pill Count: seven Appropriat e Last Documented On 9 9:53AM ; [facility] Assessments Includes: Assessments for all patient encounters Findings Encounter Date Chronic pain syndrome TELEHEALTH with FELISHA Hemant العراقي [facility] 02/01/2024 Last Documented On 4 9:17AM ; [facility] Fibromyalgia TELEHEALTH with FELISHA L ARTHUR [facility] 02/01/2024 Last Documented On 4 9:17AM ; [facility] 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 TELEHEALTH wit h FELISHA L ARTHUR [facility] 02/01/2024 Last Documented On 4 9:17AM ; [facility] Lumbar spondylosis with radiculopathy TE LEHEALTH with FELISHA L ARTHUR [facility] 02/01/2024 Last Documented On 4 9:17AM ; [facility] Lumbar stenosis with neuroge michelle claudication TELEHEALTH with FELISHA L ARTHUR [facility] 02/01/2024 Last Documented On 4 9:17AM ; [facility] Sacroiliitis TELEHEALTH with FELISHA L ARTHUR [facility] 02/01/2024 Last Documented On 4 9:17AM ; [facility] Systemic lupus erythematosus TELEHEALTH with NAVARRO MOISES L ARTHUR [facility]P-[facility] 02/01/2024 Last Documented On 4 9:17AM ; [facility] Chronic pain syndrome TELEHEALTH with FELISHA L B DULCE MARIA ANP-BC 12/17/2023 Last Documented On 4 1:18PM ; [facility] Fibromyalgia TELEHEALTH with FELISHA L ARTHUR ANP-BC 12/17/2023 Last Documented On 4 1:18PM ; [facility] USP use of opiate analgesic TELEHEALTH wit h FELISHA L ARTHUR ANP-BC 12/17/2023 Last Documented On 4 1:18PM ; [facility] Lumbar spondylosis with radiculopathy TE LEHEALTH with FELISHA L ARTHUR ANP-BC 12/17/2023 Last Documented On 4 1:18PM ; [facility] Lumbar stenosis with neuroge michelle claudication TELEHEALTH with FELISHA L ARTHUR ANP-BC 12/17/2023 Last Documented On 4 1:18PM ; [facility] Sacroiliitis TELEHEALTH with FELISHA L ARTHUR ANP-BC 12/17/2023 Last Documented On 4 1:18PM ; [facility] Systemic lupus erythematosus TELEHEALTH with NAVARRO MOISES L ARTHUR ANP-BC 12/17/2023 Last Documented On 4 1:18PM ; [facility] Chronic pain syndrome TELEHEALTH with FELISHA L B DULCE MARIA ANP-BC 11/30/2023 Last Documented On 4 9:40AM ; [facility] Fibromyalgia TELEHEALTH with FELISHA L ARTHUR ANP-BC 11/30/2023 Last Documented On 4 9:40AM ; [facility] 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 TELEHEALTH wit h FELISHA L ARTHUR ANP-BC 11/30/2023 Last Documented On 4 9:40AM ; [facility] Lumbar spondylosis with radiculopathy TE LEHEALTH with FELIHSA L ARTHUR ANP-BC 11/30/2023 Last Documented On 4 9:40AM ; [facility] Lumbar stenosis with neuroge michelle claudication TELEHEALTH with FELISHA L ARTHUR ANP-BC 11/30/2023 Last Documented On 4 9:40AM ; [facility] Sacroiliitis TELEHEALTH with FELISHA L ARTHUR ANP-BC 11/30/2023 Last Documented On 4 9:40AM ; [facility] Systemic lupus erythematosus TELEHEALTH with NAVARRO MOISES L ARTHUR ANP-BC 11/30/2023 Last Documented On 4 9:40AM ; [facility] Chronic pain syndrome PAIN MANAGEMENT FOLLOW UP with MAX SINGLETON MD 11/23/2023 Last Documented On 4 6:28PM ; [facility] Fibromyalgia PAIN MANAGEMENT FOLLOW UP with Akosua SINGLETON MD 11/23/2023 Last Documented On 4 6:28PM ; [facility] 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 PAIN M ANAGEMENT FOLLOW UP with MAX SINGLETON MD 11/23/2023 Last Documented On 4 6:28PM ; [facility] Lumbar spondylosis with radiculopathy PA IN MANAGEMENT FOLLOW UP with MAX SINGLETON MD 11/23/2023 Last Documented On 4 6:28PM ; [facility] Lumbar stenosis with neuroge michelle claudication PAIN MANAGEMENT FOLLOW UP with MAX SINGLETON MD 11/23/2023 Last Documented On 4 6:28PM ; [facility] Sacroiliitis PAIN MANAGEMENT FOLLOW UP with Akosua SINGLETON MD 11/23/2023 Last Documented On 4 6:28PM ; [facility] Systemic lupus erythematosus PAIN MANAGE MENT FOLLOW UP with MAX SINGLETON MD 11/23/2023 Last Documented On 4 6:28PM ; [facility] Chronic pain syndrome PAIN MANAGEMENT FO LLOW UP with FELISHA L ARTHUR ANP-BC 11/07/2023 Last Documented On 4 3:07PM ; [facility] Fibromyalgia PAIN MANAGEMENT FOLLOW UP with T MULU L ARTHUR ANP-BC 11/07/2023 Last Documented On 4 3:07PM ; [facility] USP use of opiate analgesic PAIN M ANAGEMENT FOLLOW UP with FELISHA L ARTHUR ANP-BC 11/07/2023 Last Documented On 4 3:07PM ; [facility] Lumbar spondylosis with radiculopathy PA IN MANAGEMENT FOLLOW UP with FELISHA L ARTHUR ANP-BC 11/07/2023 Last Documented On 4 3:07PM ; [facility] Lumbar stenosis with neuroge michelle claudication PAIN MANAGEMENT FOLLOW UP with FELISHA L ARTHUR ANP-BC 11/07/2023 Last Documented On 4 3:07PM ; [facility] Sacroiliitis PAIN MANAGEMENT FOLLOW UP with T MULU L ARTHUR ANP-BC 11/07/2023 Last Documented On 4 3:07PM ; [facility] Systemic lupus erythematosus PAIN MANAGE MENT FOLLOW UP with FELISHA L ARTHUR ANP-BC 11/07/2023 Last Documented On 4 3:07PM ; [facility] Chronic pain syndrome PAIN MANAGEMENT FO LLOW UP with FELISHA L ARTHUR ANP-BC 10/08/2023 Last Documented On 4 1:55PM ; [facility] Fibromyalgia PAIN MANAGEMENT FOLLOW UP with T MULU L ARTHUR ANP-BC 10/08/2023 Last Documented On 4 1:55PM ; [facility] 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 PAIN M ANAGEMENT FOLLOW UP with FELISHA L ARTHUR ANP-BC 10/08/2023 Last Documented On 4 1:55PM ; [facility] Lumbar spondylosis with radiculopathy PA IN MANAGEMENT FOLLOW UP with FELISHA L ARTHUR ANP-BC 10/08/2023 Last Documented On 4 1:55PM ; [facility] Lumbar stenosis with neuroge michelle claudication PAIN MANAGEMENT FOLLOW UP with FELISHA L ARTHUR ANP-BC 10/08/2023 Last Documented On 4 1:55PM ; [facility] Sacroiliitis PAIN MANAGEMENT FOLLOW UP with Ally GIBSON ANP- 10/08/2023 Last Documented On 4 1:55PM ; [facility] Systemic lupus erythematosus PAIN MANAGE MENT FOLLOW UP with FELISHA ZENGS ANP- 10/08/2023 Last Documented On 4 1:55PM ; [facility] [G89.4 - Chronic pain syndro me] chronic pain syndrome PSYCH NEW PATIENT EXAM 17 YEARS AND OLDER with NURY ECHAVARRIA PMHNP 07/31/2023 Last Documented On 3 2:52PM ; [facility] Chronic pain syndrome PAIN MANAGEMENT FOLLOW UP with MAX SINGLETON MD 07/12/2023 Last Documented On 3 2:54PM ; [facility] Fibromyalgia PAIN MANAGEMENT FOLLOW UP with Akosua SINGLETON MD 07/12/2023 Last Documented On 3 2:54PM ; [facility] 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 PAIN M ANAGEMENT FOLLOW UP with MAX SINGLETON MD 07/12/2023 Last Documented On 3 2:54PM ; [facility] Lumbar spondylosis with radiculopathy PA IN MANAGEMENT FOLLOW UP with MAX SINGLETON MD 07/12/2023 Last Documented On 3 2:54PM ; [facility] Lumbar stenosis with neuroge michelle claudication PAIN MANAGEMENT FOLLOW UP with MAX SINGLETON MD 07/12/2023 Last Documented On 3 2:54PM ; [facility] Sacroiliitis PAIN MANAGEMENT FOLLOW UP with Akosua SINGLETON MD 07/12/2023 Last Documented On 3 2:54PM ; [facility] Systemic lupus erythematosus PAIN MANAGE MENT FOLLOW UP with MAX SINGLETON MD 07/12/2023 Last Documented On 3 2:54PM ; [facility] Chronic pain syndrome PAIN MANAGEMENT FO LLOW UP [facility]2023 Last Documented On 3 11:17AM ; [facility] Fibromyalgia PAIN MANAGEMENT FOLLOW UP with Ally GIBSON [facility]- 07/05/2023 Last Documented On 3 11:17AM ; [facility] USP use of opiate analgesic PAIN M ANAGEMENT FOLLOW UP with FELISHA L ARTHUR ANP-BC 07/05/2023 Last Documented On 3 11:17AM ; [facility] Lumbar spondylosis with radiculopathy PA IN MANAGEMENT FOLLOW UP with FELISHA L ARTHUR ANP-BC 07/05/2023 Last Documented On 3 11:17AM ; [facility] Lumbar stenosis with neuroge michelle claudication PAIN MANAGEMENT FOLLOW UP with FELISHA L ARTHUR ANP-BC 07/05/2023 Last Documented On 3 11:17AM ; [facility] Sacroiliitis PAIN MANAGEMENT FOLLOW UP with T MULU L ARTHUR ANP-BC 07/05/2023 Last Documented On 3 11:17AM ; [facility] Systemic lupus erythematosus PAIN MANAGE MENT FOLLOW UP with FELISHA L ARTHUR ANP-BC 07/05/2023 Last Documented On 3 11:17AM ; [facility] Cervical spondylosis without myelopathy or radiculopathy TELEHEALTH with FELISHA L ARTHUR ANP-BC 06/05/2023 Last Documented On 3 12:57PM ; [facility] Chronic pain syndrome TELEHEALTH with FELISHA L B DULCE MARIA ANP-BC 06/05/2023 Last Documented On 3 12:57PM ; [facility] Fibromyalgia TELEHEALTH with FELISHA L ARTHUR ANP-BC 06/05/2023 Last Documented On 3 12:57PM ; [facility] USP use of opiate analgesic TELEHEALTH wit h FELISHA L ARTHUR ANP-BC 06/05/2023 Last Documented On 3 12:57PM ; [facility] Lumbar spondylosis with radiculopathy TE LEHEALTH with FELISHA L ARTHUR ANP-BC 06/05/2023 Last Documented On 3 12:57PM ; [facility] Lumbar stenosis with neuroge michelle claudication TELEHEALTH with FELISHA L ARTHUR ANP-BC 06/05/2023 Last Documented On 3 12:57PM ; [facility] Sacroiliitis TELEHEALTH with FELISHA L ARTHUR ANP-BC 06/05/2023 Last Documented On 3 12:57PM ; [facility] Systemic lupus erythematosus TELEHEALTH with NAVARRO MOISES L ARTHUR ANP-BC 06/05/2023 Last Documented On 3 12:57PM ; [facility] Cervical spondylosis without myelopathy or radiculopathy PAIN MANAGEMENT FOLLOW UP with FELISHA L ARTHUR ANP-BC 03/23/2023 Last Documented On 3 11:03AM ; [facility] Chronic pain syndrome PAIN MANAGEMENT FO LLOW UP with FELISHA L ARTHUR ANP-BC 03/23/2023 Last Documented On 3 11:03AM ; [facility] Fibromyalgia PAIN MANAGEMENT FOLLOW UP with T MULU L ARTHUR ANP-BC 03/23/2023 Last Documented On 3 11:03AM ; [facility] USP use of opiate analgesic PAIN M ANAGEMENT FOLLOW UP with FELISHA L ARTHUR ANP-BC 03/23/2023 Last Documented On 3 11:03AM ; [facility] Lumbar spondylosis with radiculopathy PA IN MANAGEMENT FOLLOW UP with FELISHA L ARTHUR ANP-BC 03/23/2023 Last Documented On 3 11:03AM ; [facility] Lumbar stenosis with neuroge michelle claudication PAIN MANAGEMENT FOLLOW UP with FELISHA L ARTHUR ANP-BC 03/23/2023 Last Documented On 3 11:03AM ; [facility] Sacroiliitis PAIN MANAGEMENT FOLLOW UP with T MULU L ARTHUR ANP-BC 03/23/2023 Last Documented On 3 11:03AM ; [facility] Systemic lupus erythematosus PAIN MANAGE MENT FOLLOW UP with FELISHA L ARTHUR ANP-BC 03/23/2023 Last Documented On 3 11:03AM ; [facility] Cervical spondylosis without myelopathy or radiculopathy PAIN MANAGEMENT FOLLOW UP with FELISHA L ARTHUR ANP-BC 02/05/2023 Last Documented On 3 10:23AM ; [facility] Chronic pain syndrome PAIN MANAGEMENT FO LLOW UP with FELISHA L ARTHUR ANP-BC 02/05/2023 Last Documented On 3 10:23AM ; [facility] Fibromyalgia PAIN MANAGEMENT FOLLOW UP with T MULU L ARTHUR ANP-BC 02/05/2023 Last Documented On 3 10:23AM ; [facility] 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 PAIN M ANAGEMENT FOLLOW UP with FELISHA L ARTHUR ANP-BC 02/05/2023 Last Documented On 3 10:23AM ; [facility] Lumbar spondylosis with radiculopathy PA IN MANAGEMENT FOLLOW UP with FELISHA L ARTHUR ANP-BC 02/05/2023 Last Documented On 3 10:23AM ; [facility] Lumbar stenosis with neuroge michelle claudication PAIN MANAGEMENT FOLLOW UP with FELISHA L ARTHUR ANP-BC 02/05/2023 Last Documented On 3 10:23AM ; [facility] Sacroiliitis PAIN MANAGEMENT FOLLOW UP with T MULU L ARTHUR ANP-BC 02/05/2023 Last Documented On 3 10:23AM ; [facility] Systemic lupus erythematosus PAIN MANAGE MENT FOLLOW UP with FELISHA L ARTHUR ANP-BC 02/05/2023 Last Documented On 3 10:23AM ; [facility] Cervical spondylosis without myelopathy or radiculopathy PAIN MANAGEMENT FOLLOW UP with FELISHA L ARTHUR ANP-BC 11/28/2022 Last Documented On 3 2:12PM ; [facility] Cervicalgia PAIN MANAGEMENT FOLLOW UP with T MULU L ARTHUR ANP-BC 11/28/2022 Last Documented On 3 2:12PM ; [facility] Chronic pain syndrome PAIN MANAGEMENT FO LLOW UP with FELISHA L ARTHUR ANP-BC 11/28/2022 Last Documented On 3 2:12PM ; [facility] Fibromyalgia PAIN MANAGEMENT FOLLOW UP with T MULU L ARTHUR ANP-BC 11/28/2022 Last Documented On 3 2:12PM ; [facility] Localized lumbar osteoarthritis PAIN MAN AGEMENT FOLLOW UP with FELISHA L ARTHUR ANP-BC 11/28/2022 Last Documented On 3 2:12PM ; [facility] 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 PAIN M ANAGEMENT FOLLOW UP with FELISHA L ARTHUR ANP-BC 11/28/2022 Last Documented On 3 2:12PM ; [facility] Lumbosacral spinal stenosis PAIN MANAGEM ENT FOLLOW UP with FELISHA L ARTHUR ANP-BC 11/28/2022 Last Documented On 3 2:12PM ; [facility] Sacroiliitis PAIN MANAGEMENT FOLLOW UP with T MULU L ARTHUR ANP-BC 11/28/2022 Last Documented On 3 2:12PM ; [facility] Systemic lupus erythematosus PAIN MANAGE MENT FOLLOW UP with FELISHA L ARTHUR ANP-BC 11/28/2022 Last Documented On 3 2:12PM ; [facility] Cervical spondylosis without myelopathy or radiculopathy PAIN MANAGEMENT FOLLOW UP with FELISHA L ARTHUR ANP-BC 08/17/2022 Last Documented On 2 10:33AM ; [facility] Cervicalgia PAIN MANAGEMENT FOLLOW UP with T MULU L ARTHUR ANP-BC 08/17/2022 Last Documented On 2 10:33AM ; [facility] Chronic pain syndrome PAIN MANAGEMENT FO LLOW UP with FELISHA L ARTHUR ANP-BC 08/17/2022 Last Documented On 2 10:33AM ; [facility] Fibromyalgia PAIN MANAGEMENT FOLLOW UP with T MULU L ARTHUR ANP-BC 08/17/2022 Last Documented On 2 10:33AM ; [facility] Localized lumbar osteoarthritis PAIN MAN AGEMENT FOLLOW UP with FELISHA L ARTHUR ANP-BC 08/17/2022 Last Documented On 2 10:33AM ; [facility] USP use of opiate analgesic PAIN M ANAGEMENT FOLLOW UP with FELISHA L ARTHUR ANP-BC 08/17/2022 Last Documented On 2 10:33AM ; [facility] Lumbosacral spinal stenosis PAIN MANAGEM ENT FOLLOW UP with FELISHA L ARTHUR ANP-BC 08/17/2022 Last Documented On 2 10:33AM ; [facility] Sacroiliitis PAIN MANAGEMENT FOLLOW UP with T MULU L ARTHUR ANP-BC 08/17/2022 Last Documented On 2 10:33AM ; [facility] Systemic lupus erythematosus PAIN MANAGE MENT FOLLOW UP with FELISHA L ARTHUR ANP-BC 08/17/2022 Last Documented On 2 10:33AM ; [facility] Cervical spondylosis without myelopathy or radiculopathy PAIN MANAGEMENT FOLLOW UP with FELISHA L ARTHUR ANP-BC 05/09/2022 Last Documented On 2 3:54PM ; [facility] Cervicalgia PAIN MANAGEMENT FOLLOW UP with T MULU L ARTHUR ANP-BC 05/09/2022 Last Documented On 2 3:54PM ; [facility] Chronic pain syndrome PAIN MANAGEMENT FO LLOW UP with FELISHA L ARTHUR ANP-BC 05/09/2022 Last Documented On 2 3:54PM ; [facility] Fibromyalgia PAIN MANAGEMENT FOLLOW UP with T MULU L ARTHUR ANP-BC 05/09/2022 Last Documented On 2 3:54PM ; [facility] Localized lumbar osteoarthritis PAIN MAN AGEMENT FOLLOW UP with FELISHA L ARTHUR ANP-BC 05/09/2022 Last Documented On 2 3:54PM ; [facility] [facility] USP use of opiate analgesic PAIN M ANAGEMENT FOLLOW UP with FELISHA L ARTHUR ANP-BC 05/09/2022 Last Documented On 2 3:54PM ; [facility] Lumbosacral spinal stenosis PAIN MANAGEM ENT FOLLOW UP with FELISHA L ARTHUR ANP-BC 05/09/2022 Last Documented On 2 3:54PM ; [facility] Sacroiliitis PAIN MANAGEMENT FOLLOW UP with T MULU L ARTHUR ANP-BC 05/09/2022 Last Documented On 2 3:54PM ; [facility] Systemic lupus erythematosus PAIN MANAGE MENT FOLLOW UP with FELISHA L ARTHUR ANP-BC 05/09/2022 Last Documented On 2 3:54PM ; [facility] Cervical spondylosis without myelopathy or radiculopathy PAIN MANAGEMENT FOLLOW UP with FELISHA L ARTHUR ANP-BC 02/09/2022 Last Documented On 2 4:29PM ; [facility] Cervicalgia PAIN MANAGEMENT FOLLOW UP with T MULU L ARTHUR ANP-BC 02/09/2022 Last Documented On 2 4:29PM ; [facility] Chronic pain syndrome PAIN MANAGEMENT FO LLOW UP with FELISHA L ARTHUR ANP-BC 02/09/2022 Last Documented On 2 4:29PM ; [facility] Fibromyalgia PAIN MANAGEMENT FOLLOW UP with T MULU L ARTHUR ANP-BC 02/09/2022 Last Documented On 2 4:29PM ; [facility] Localized lumbar osteoarthritis PAIN MAN AGEMENT FOLLOW UP with FELISHA L ARTHUR ANP-BC 02/09/2022 Last Documented On 2 4:29PM ; [facility] 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 PAIN M ANAGEMENT FOLLOW UP with FELISHA L ARTHUR ANP-BC 02/09/2022 Last Documented On 2 4:29PM ; [facility] Lumbosacral spinal stenosis PAIN MANAGEM ENT FOLLOW UP with FELISHA L ARTHUR ANP-BC 02/09/2022 Last Documented On 2 4:29PM ; [facility] Sacroiliitis PAIN MANAGEMENT FOLLOW UP with T MULU L ARTHUR ANP-BC 02/09/2022 Last Documented On 2 4:29PM ; [facility] Systemic lupus erythematosus PAIN MANAGE MENT FOLLOW UP with FELISHA L ARTHUR ANP-BC 02/09/2022 Last Documented On 2 4:29PM ; [facility] Cervical spondylosis without myelopathy or radiculopathy PAIN MANAGEMENT FOLLOW UP with FELISHA L ARTHUR ANP-BC 11/28/2021 Last Documented On 2 4:53PM ; [facility] Cervicalgia PAIN MANAGEMENT FOLLOW UP with T MULU L ARTHUR ANP-BC 11/28/2021 Last Documented On 2 4:53PM ; [facility] Chronic pain syndrome PAIN MANAGEMENT FO LLOW UP with FELISHA L ARTHUR ANP-BC 11/28/2021 Last Documented On 2 4:53PM ; [facility] Fibromyalgia PAIN MANAGEMENT FOLLOW UP with T MULU L ARTHUR ANP-BC 11/28/2021 Last Documented On 2 4:53PM ; [facility] Localized lumbar osteoarthritis PAIN MAN AGEMENT FOLLOW UP with FELISHA L ARTHUR ANP-BC 11/28/2021 Last Documented On 2 4:53PM ; [facility] 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 PAIN M ANAGEMENT FOLLOW UP with FELISHA L ARTHUR ANP-BC 11/28/2021 Last Documented On 2 4:53PM ; [facility] Lumbosacral spinal stenosis PAIN MANAGEM ENT FOLLOW UP with FELISHA L ARTHUR ANP-BC 11/28/2021 Last Documented On 2 4:53PM ; [facility] Sacroiliitis PAIN MANAGEMENT FOLLOW UP with T MULU L ARTHUR ANP-BC 11/28/2021 Last Documented On 2 4:53PM ; [facility] Systemic lupus erythematosus PAIN MANAGE MENT FOLLOW UP with FELISHA L ARTHUR ANP-BC 11/28/2021 Last Documented On 2 4:53PM ; [facility] Cervical spondylosis without myelopathy or radiculopathy PAIN MANAGEMENT FOLLOW UP with FELISHA L ARTHUR ANP-BC 09/21/2021 Last Documented On 2 8:49AM ; [facility] Cervicalgia PAIN MANAGEMENT FOLLOW UP with T MULU L ARTHUR ANP-BC 09/21/2021 Last Documented On 2 8:49AM ; [facility] Chronic pain syndrome PAIN MANAGEMENT FO LLOW UP with FELISHA L ARTHUR ANP-BC 09/21/2021 Last Documented On 2 8:49AM ; [facility] Fibromyalgia PAIN MANAGEMENT FOLLOW UP with T MULU L ARTHUR ANP-BC 09/21/2021 Last Documented On 2 8:49AM ; [facility] Localized lumbar osteoarthritis PAIN MAN AGEMENT FOLLOW UP with FELISHA L ARTHUR ANP-BC 09/21/2021 Last Documented On 2 8:49AM ; [facility] USP use of opiate analgesic PAIN M ANAGEMENT FOLLOW UP with FELISHA L ARTHUR ANP-BC 09/21/2021 Last Documented On 2 8:49AM ; [facility] Lumbosacral spinal stenosis PAIN MANAGEM ENT FOLLOW UP with FELISHA L ARTHUR ANP-BC 09/21/2021 Last Documented On 2 8:49AM ; [facility] Sacroiliitis PAIN MANAGEMENT FOLLOW UP with T MULU L ARTHUR ANP-BC 09/21/2021 Last Documented On 2 8:49AM ; [facility] Systemic lupus erythematosus PAIN MANAGE MENT FOLLOW UP with FELISHA L ARTHUR ANP-BC 09/21/2021 Last Documented On 2 8:49AM ; [facility] Cervical spondylosis without myelopathy or radiculopathy PAIN MANAGEMENT FOLLOW UP with FELISHA L ARTHUR ANP-BC 06/14/2021 Last Documented On 1 9:23AM ; [facility] Cervicalgia PAIN MANAGEMENT FOLLOW UP with T MULU L ARTHUR ANP-BC 06/14/2021 Last Documented On 1 9:23AM ; [facility] Chronic pain syndrome PAIN MANAGEMENT FO LLOW UP with FELISHA L ARTHUR ANP-BC 06/14/2021 Last Documented On 1 9:23AM ; [facility] Fibromyalgia PAIN MANAGEMENT FOLLOW UP with T MULU L ARTHUR ANP-BC 06/14/2021 Last Documented On 1 9:23AM ; [facility] Localized lumbar osteoarthritis PAIN MAN AGEMENT FOLLOW UP with FELISHA L ARTHUR ANP-BC 06/14/2021 Last Documented On 1 9:23AM ; [facility] USP use of opiate analgesic PAIN M ANAGEMENT FOLLOW UP with FELISHA L ARTHUR ANP-BC 06/14/2021 Last Documented On 1 9:23AM ; [facility] Lumbosacral spinal stenosis PAIN MANAGEM ENT FOLLOW UP with FELISHA L ARTHUR ANP-BC 06/14/2021 Last Documented On 1 9:23AM ; [facility] Sacroiliitis PAIN MANAGEMENT FOLLOW UP with T MULU L ARTHUR ANP-BC 06/14/2021 Last Documented On 1 9:23AM ; [facility] Systemic lupus erythematosus PAIN MANAGE MENT FOLLOW UP with FELISHA L ARTHUR ANP-BC 06/14/2021 Last Documented On 1 9:23AM ; [facility] Cervicalgia PAIN MANAGEMENT FOLLOW UP with T MULU L ARTHUR ANP-BC 04/13/2021 Last Documented On 1 12:19PM ; [facility] Chronic pain syndrome PAIN MANAGEMENT FO LLOW UP with FELISHA L ARTHUR ANP-BC 04/13/2021 Last Documented On 1 12:19PM ; [facility] Fibromyalgia PAIN MANAGEMENT FOLLOW UP with T MULU L ARTHUR ANP-BC 04/13/2021 Last Documented On 1 12:19PM ; [facility] Localized lumbar osteoarthritis PAIN MAN AGEMENT FOLLOW UP with FELISHA L ARTHUR ANP-BC 04/13/2021 Last Documented On 1 12:19PM ; [facility] 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 PAIN M ANAGEMENT FOLLOW UP with FELISHA L ARTHUR ANP-BC 04/13/2021 Last Documented On 1 12:19PM ; [facility] Lumbosacral spinal stenosis PAIN MANAGEM ENT FOLLOW UP with FELISHA L ARTHUR ANP-BC 04/13/2021 Last Documented On 1 12:19PM ; [facility] Sacroiliitis PAIN MANAGEMENT FOLLOW UP with T MULU L ARTHUR ANP-BC 04/13/2021 Last Documented On 1 12:19PM ; [facility] Systemic lupus erythematosus PAIN MANAGE MENT FOLLOW UP with FELISHA L ARTHUR ANP-BC 04/13/2021 Last Documented On 1 12:19PM ; [facility] Cervicalgia PAIN MANAGEMENT FOLLOW UP with T MULU L ARTHUR ANP-BC 2021 Last Documented On 1 4:57PM ; [facility] Chronic pain syndrome PAIN MANAGEMENT FO LLOW UP with FELISHA L ARTHUR ANP-BC 2021 Last Documented On 1 4:57PM ; [facility] Fibromyalgia PAIN MANAGEMENT FOLLOW UP with T MULU L ARTHUR ANP-BC 2021 Last Documented On 1 4:57PM ; [facility] Localized lumbar osteoarthritis PAIN MAN AGEMENT FOLLOW UP with FELISHA L ARTHUR ANP-BC 2021 Last Documented On 1 4:57PM ; [facility] 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 PAIN M ANAGEMENT FOLLOW UP with FELISHA L ARTHUR ANP-BC 2021 Last Documented On 1 4:57PM ; [facility] Lumbosacral spinal stenosis PAIN MANAGEM ENT FOLLOW UP with FELISHA L ARTHUR ANP-BC 2021 Last Documented On 1 4:57PM ; [facility] Sacroiliitis PAIN MANAGEMENT FOLLOW UP with T MULU L ARTHUR ANP-BC 2021 Last Documented On 1 4:57PM ; [facility] Systemic lupus erythematosus PAIN MANAGE MENT FOLLOW UP with FELISHA L ARTHRU ANP-BC 2021 Last Documented On 1 4:57PM ; [facility] Cervicalgia PAIN MANAGEMENT FOLLOW UP with T MULU L ARTHUR ANP-BC 01/04/2021 Last Documented On 1 5:35PM ; [facility] Chronic pain syndrome PAIN MANAGEMENT FO LLOW UP with FELISHA L ARTHUR ANP-BC 01/04/2021 Last Documented On 1 5:35PM ; [facility] Fibromyalgia PAIN MANAGEMENT FOLLOW UP with T MULU L ARTHUR ANP-BC 01/04/2021 Last Documented On 1 5:35PM ; [facility] Localized lumbar osteoarthritis PAIN MAN AGEMENT FOLLOW UP with FELISHA L ARTHUR ANP- 01/04/2021 Last Documented On 1 5:35PM ; [facility] USP use of opiate analgesic PAIN M ANAGEMENT FOLLOW UP with FELISHA L ARTHUR ANP- 01/04/2021 Last Documented On 1 5:35PM ; [facility] Lumbosacral spinal stenosis PAIN MANAGEM ENT FOLLOW UP with FELISHA L ARTHUR ANP- 01/04/2021 Last Documented On 1 5:35PM ; [facility] Sacroiliitis PAIN MANAGEMENT FOLLOW UP with T MULU L ARTHUR ANP- 01/04/2021 Last Documented On 1 5:35PM ; [facility] Systemic lupus erythematosus PAIN MANAGE MENT FOLLOW UP with FELISHA L ARTHUR ANP- 01/04/2021 Last Documented On 1 5:35PM ; [facility] Chronic pain syndrome PAIN MANAGEMENT FO LLOW UP with FELISHA L ARTHUR [facility] 10/07/2020 Last Documented On 1 8:11AM ; [facility] Fibromyalgia PAIN MANAGEMENT FOLLOW UP with T MULU L ARTHUR ANP- 10/07/2020 Last Documented On 1 8:11AM ; [facility] Lumbosacral spinal stenosis PAIN MANAGEM ENT FOLLOW UP with [facility] Last Documented On 1 8:11AM ; [facility] Sacroiliitis PAIN MANAGEMENT FOLLOW UP with T MULU L ARTHUR [facility] 10/07/2020 Last Documented On 1 8:11AM ; [facility] Systemic lupus erythematosus PAIN MANAGE MENT FOLLOW UP with FELISHA L [facility]/07/2020 Last Documented On 1 8:11AM ; [facility] Chronic pain syndrome TELEHEALTH with FELISHA Hemant العراقي [facility] 09/09/2020 Last Documented On 1 4:00PM ; [facility] Fibromyalgia TELEHEALTH with FELISHA L ARTHUR [facility] 09/09/2020 Last Documented On 1 4:00PM ; [facility] Lumbosacral spinal stenosis TELEHEALTH with TAMM IE L ARTHUR ANP-BC 09/09/2020 Last Documented On 1 4:00PM ; [facility] Sacroiliitis TELEHEALTH with FELISHA L ARTHUR ANP-BC 09/09/2020 Last Documented On 1 4:00PM ; [facility] Systemic lupus erythematosus TELEHEALTH with NAVARRO MOISES L ARTHUR ANP-BC 09/09/2020 Last Documented On 1 4:00PM ; [facility] Chronic pain syndrome PAIN MANAGEMENT FO LLOW UP with FELISHA L ARTHUR ANP-BC 06/10/2020 Last Documented On 0 12:01PM ; [facility] Fibromyalgia PAIN MANAGEMENT FOLLOW UP with T MULU L ARTHUR ANP-BC 06/10/2020 Last Documented On 0 12:01PM ; [facility] Lumbosacral spinal stenosis PAIN MANAGEM ENT FOLLOW UP with FELISHA L ARTHUR ANP-BC 06/10/2020 Last Documented On 0 12:01PM ; [facility] Sacroiliitis PAIN MANAGEMENT FOLLOW UP with T MULU L ARTHUR ANP-BC 06/10/2020 Last Documented On 0 12:01PM ; [facility] Systemic lupus erythematosus PAIN MANAGE MENT FOLLOW UP with FELISHA L ARTHUR ANP-BC 06/10/2020 Last Documented On 0 12:01PM ; [facility] Chronic pain syndrome PAIN MANAGEMENT FO LLOW UP with FELISHA L ARTHUR ANP-BC 05/11/2020 Last Documented On 0 3:30PM ; [facility] Fibromyalgia PAIN MANAGEMENT FOLLOW UP with T MULU L ARTHUR ANP-BC 05/11/2020 Last Documented On 0 3:30PM ; [facility] Lumbosacral spinal stenosis PAIN MANAGEM ENT FOLLOW UP with FELISHA L ARTHUR ANP-BC 05/11/2020 Last Documented On 0 3:30PM ; [facility] Sacroiliitis PAIN MANAGEMENT FOLLOW UP with T MULU L ARTHUR ANP-BC 05/11/2020 Last Documented On 0 3:30PM ; [facility] Systemic lupus erythematosus PAIN MANAGE MENT FOLLOW UP with FELISHA L ARTHUR ANP-BC 05/11/2020 Last Documented On 0 3:30PM ; [facility] Chronic pain syndrome PAIN MANAGEMENT FO LLOW UP with FELISHA L ARTHUR ANP- 02/09/2020 Last Documented On 0 7:52AM ; [facility] Fibromyalgia PAIN MANAGEMENT FOLLOW UP with T MULU L ARTHUR ANP- 02/09/2020 Last Documented On 0 7:52AM ; [facility] Lumbosacral spinal stenosis PAIN MANAGEM ENT FOLLOW UP with FELISHA L ARTHUR ANP- 02/09/2020 Last Documented On 0 7:52AM ; [facility] Sacroiliitis PAIN MANAGEMENT FOLLOW UP with T MULU L ARTHUR ANP- 02/09/2020 Last Documented On 0 7:52AM ; [facility] Systemic lupus erythematosus PAIN MANAGE MENT FOLLOW UP with FELISHA L ARTHUR ANP- 02/09/2020 Last Documented On 0 7:52AM ; [facility] Chronic pain syndrome TELEHEALTH with FELISHA L B DULCE MARIA [facility] 01/08/2020 Last Documented On 0 11:01AM ; [facility] Fibromyalgia TELEHEALTH with FELISHA L ARTHUR [facility] 01/08/2020 Last Documented On 0 11:01AM ; [facility] Lumbosacral spinal stenosis TELEHEALTH with TAMM IE L ARTHUR [facility] 01/08/2020 Last Documented On 0 11:01AM ; [facility] Sacroiliitis TELEHEALTH with FELISHA L ARTHUR [facility] 01/08/2020 Last Documented On 0 11:01AM ; [facility] Systemic lupus erythematosus TELEHEALTH with NAVARRO MOISES L ARTHUR [facility] 01/08/2020 Last Documented On 0 11:01AM ; [facility] Chronic pain syndrome PAIN MANAGEMENT FO LLOW UP with FELISHA L ARTHUR [facility] 10/10/2019 Last Documented On 0 12:34PM ; [facility] Fibromyalgia PAIN MANAGEMENT FOLLOW UP with T MULU L ARTHUR ANP- 10/10/2019 Last Documented On 0 12:34PM ; [facility] Lumbosacral spinal stenosis PAIN MANAGEM ENT FOLLOW UP with FELISHA L ARTHUR [facility] 10/10/2019 Last Documented On 0 12:34PM ; [facility] Sacroiliitis PAIN MANAGEMENT FOLLOW UP with T MULU L ARTHUR [facility] 10/10/2019 Last Documented On 0 12:34PM ; [facility] Systemic lupus erythematosus PAIN MANAGE MENT FOLLOW UP with FELISHA L ARTHUR [facility] 10/10/2019 Last Documented On 0 12:34PM ; [facility] Chronic pain syndrome PAIN MANAGEMENT FO LLOW UP with FELISHA L ARTHUR [facility] 08/07/2019 Last Documented On 9 9:54AM ; [facility] Fibromyalgia PAIN MANAGEMENT FOLLOW UP with T MULU L ARTHUR [facility] 08/07/2019 Last Documented On 9 9:54AM ; [facility] Lumbosacral spinal stenosis PAIN MANAGEM ENT FOLLOW UP with FELISHA L ARTHUR [facility] 08/07/2019 Last Documented On 9 9:54AM ; [facility] Sacroiliitis PAIN MANAGEMENT FOLLOW UP with T MULU L ARTHUR [facility] 08/07/2019 Last Documented On 9 9:54AM ; [facility] Systemic lupus erythematosus PAIN MANAGE MENT FOLLOW UP with FELISHA L ARTHUR [facility] 08/07/2019 Last Documented On 9 9:54AM ; [facility] Chronic pain syndrome PAIN MANAGEMENT FO LLOW UP with FELISHA L ARTHUR [facility] 06/30/2019 Last Documented On 9 3:12PM ; [facility] Fibromyalgia PAIN MANAGEMENT FOLLOW UP with T MULU L ARTHUR [facility] 06/30/2019 Last Documented On 9 3:12PM ; [facility] Lumbar radiculopathy PAIN MANAGEMENT FOL LOW UP with FELISHA L ARTHUR ANP-BC 06/30/2019 Last Documented On 9 3:12PM ; [facility] Lumbosacral spinal stenosis PAIN MANAGEM ENT FOLLOW UP with FELISHA L ARTHUR ANP-BC 06/30/2019 Last Documented On 9 3:12PM ; [facility] Myalgia PAIN MANAGEMENT FOLLOW UP with T MULU L ARTHUR ANP-BC 06/30/2019 Last Documented On 9 3:12PM ; [facility] Sacroiliitis PAIN MANAGEMENT FOLLOW UP with T MULU L ARTHUR ANP-BC 06/30/2019 Last Documented On 9 3:12PM ; [facility] Systemic lupus erythematosus PAIN MANAGE MENT FOLLOW UP with FELISHA L ARTHUR ANP-BC 06/30/2019 Last Documented On 9 3:12PM ; [facility] Chronic pain syndrome PAIN MANAGEMENT FO LLOW UP with FELISHA L ARTHUR ANP-BC 04/29/2019 Last Documented On 9 3:17PM ; [facility] Fibromyalgia PAIN MANAGEMENT FOLLOW UP with T MULU L ARTHUR ANP-BC 04/29/2019 Last Documented On 9 3:17PM ; [facility] Lumbar radiculopathy PAIN MANAGEMENT FOL LOW UP with FELISHA L ARTHUR ANP-BC 04/29/2019 Last Documented On 9 3:17PM ; [facility] Lumbosacral spinal stenosis PAIN MANAGEM ENT FOLLOW UP with FELISHA L ARTHUR ANP-BC 04/29/2019 Last Documented On 9 3:17PM ; [facility] Myalgia PAIN MANAGEMENT FOLLOW UP with T MULU L ARTHUR ANP-BC 04/29/2019 Last Documented On 9 3:17PM ; [facility] Sacroiliitis PAIN MANAGEMENT FOLLOW UP with T MULU L ARTHUR ANP-BC 04/29/2019 Last Documented On 9 3:17PM ; [facility] Systemic lupus erythematosus PAIN MANAGE MENT FOLLOW UP with FELISHA L ARTHUR ANP-BC 04/29/2019 Last Documented On 9 3:17PM ; [facility] Chronic pain syndrome PAIN MANAGEMENT FO LLOW UP with FEILSHA L ARTHUR ANP-BC 02/05/2019 Last Documented On 9 3:56PM ; [facility] Fibromyalgia PAIN MANAGEMENT FOLLOW UP with T MULU L ARTHUR ANP-BC 02/05/2019 Last Documented On 9 3:56PM ; [facility] Lumbar radiculopathy PAIN MANAGEMENT FOL LOW UP with FELISHA L ARTHUR ANP-BC 02/05/2019 Last Documented On 9 3:56PM ; [facility] Lumbosacral spinal stenosis PAIN MANAGEM ENT FOLLOW UP with FELISHA L ARTHUR ANP-BC 02/05/2019 Last Documented On 9 3:56PM ; [facility] Myalgia PAIN MANAGEMENT FOLLOW UP with T MULU L ARTHUR ANP-BC 02/05/2019 Last Documented On 9 3:56PM ; [facility] Sacroiliitis PAIN MANAGEMENT FOLLOW UP with T MULU L ARTHUR ANP-BC 02/05/2019 Last Documented On 9 3:56PM ; [facility] Systemic lupus erythematosus PAIN MANAGE MENT FOLLOW UP with FELISHA L ARTHUR ANP-BC 02/05/2019 Last Documented On 9 3:56PM ; [facility] Chronic pain syndrome PAIN MANAGEMENT FO LLOW UP with FELISHA L ARTHUR ANP-BC 11/28/2018 Last Documented On 9 3:13PM ; [facility] Fibromyalgia PAIN MANAGEMENT FOLLOW UP with T MULU L ARTHUR ANP-BC 11/28/2018 Last Documented On 9 3:13PM ; [facility] Lumbar radiculopathy PAIN MANAGEMENT FOL LOW UP with FELISHA L ARTHUR ANP-BC 11/28/2018 Last Documented On 9 3:13PM ; [facility] Lumbosacral spinal stenosis PAIN MANAGEM ENT FOLLOW UP with FELISHA L ARTHUR ANP-BC 11/28/2018 Last Documented On 9 3:13PM ; [facility] Myalgia PAIN MANAGEMENT FOLLOW UP with T MULU L ARTHUR ANP-BC 11/28/2018 Last Documented On 9 3:13PM ; [facility] Sacroiliitis PAIN MANAGEMENT FOLLOW UP with T MULU L ARTHUR ANP-BC 11/28/2018 Last Documented On 9 3:13PM ; [facility] Systemic lupus erythematosus PAIN MANAGE MENT FOLLOW UP with FELISHA L ARTHUR ANP-BC 11/28/2018 Last Documented On 9 3:13PM ; [facility] Chronic pain syndrome PAIN MANAGEMENT FO LLOW UP with FELISHA L ARTHUR ANP-BC 10/31/2018 Last Documented On 9 2:44PM ; [facility] Fibromyalgia PAIN MANAGEMENT FOLLOW UP with T MULU L ARTHUR ANP-BC 10/31/2018 Last Documented On 9 2:44PM ; [facility] Lumbar radiculopathy PAIN MANAGEMENT FOL LOW UP with FELISHA L ARTHUR ANP-BC 10/31/2018 Last Documented On 9 2:44PM ; [facility] Lumbosacral spinal stenosis PAIN MANAGEM ENT FOLLOW UP with FELISHA L ARTHUR ANP-BC 10/31/2018 Last Documented On 9 2:44PM ; [facility] Myalgia PAIN MANAGEMENT FOLLOW UP with T MULU L ARTHUR ANP-BC 10/31/2018 Last Documented On 9 2:44PM ; [facility] Sacroiliitis PAIN MANAGEMENT FOLLOW UP with T MULU L ARTHUR ANP-BC 10/31/2018 Last Documented On 9 2:44PM ; [facility] Systemic lupus erythematosus PAIN MANAGE MENT FOLLOW UP with FELISHA L ARTHUR ANP-BC 10/31/2018 Last Documented On 9 2:44PM ; [facility] Chronic pain syndrome PAIN MANAGEMENT NE W CONSULT with FELISHA L ARTHUR ANP-BC 10/03/2018 Last Documented On 9 9:56AM ; [facility] Localized lumbar osteoarthritis PAIN MAN AGEMENT NEW CONSULT with FELISHA L ARTHUR ANP-BC 10/03/2018 Last Documented On 9 9:56AM ; [facility] Lumbosacral spinal stenosis PAIN MANAGEM ENT NEW CONSULT with FELISHA ZENGS [facility] 10/03/2018 Last Documented On 9 9:56AM ; [facility] Myalgia PAIN MANAGEMENT NEW CONSULT with FELISHA BHATVINS [facility] 10/03/2018 Last Documented On 9 9:56AM ; [facility] Sacroiliitis PAIN MANAGEMENT NEW CONSULT with FELISHAMOISES BHATVINS [facility] 10/03/2018 Last Documented On 9 9:56AM ; [facility] Systemic lupus erythematosus PAIN MANAGE MENT NEW CONSULT with FELISHAMOISES BHATVINS [facility] 10/03/2018 Last Documented On 9 9:56AM ; [facility] Instructions Includes: Instructions for all patient encounters Education and Decision Aids were provided during visit for: Pill Count: 25 HYSINGLA Last Documented On 4 8:54AM ; [facility] Pill Count: two HYSINGLA Last Documented On 4 9:14AM ; [facility] Pill Count: HYDROCODONE ~out of medication Last Documented On 4 9:14AM ; [facility] Pill Count: two HYSINGLA Last Documented On 4 11:00AM ; [facility] Pill Count: HYDROCODONE ~out of medication Last Documented On 4 11:43AM ; [facility] Pill Count: HYDROCODONE ~out of medication Last Documented On 4 9:34AM ; [facility] Pill Count: HYDROCODONE ~out of medication Last Documented On 4 10:37AM ; [facility] Pill Count: HYDROCODONE ~out of medication Last Documented On 4 1:44PM ; [facility] Pill Count: two HYDROCODONE Last Documented On 4 1:15PM ; [facility] Patient education about adve rse reactions to medication Last Documented On 3 10:43AM ; [facility] Reviewed side effects and Ri sks/Benefits analysis Last Documented On 3 10:43AM ; [facility] Pill Count: 19 HYDROCODONE Last Documented On 3 2:06PM ; [facility] Pill Count: 19 HYDROCODONE Last Documented On 3 10:39AM ; [facility] Pill Count: 50 HYDROCODONE Last Documented On 3 10:50AM ; [facility] Pill Count: one HYDROCODONE Last Documented On 3 3:49PM ; [facility] Pill Count: six HYDROCODONE Last Documented On 3 10:14AM ; [facility] Pill Count: 38 HYDROCODONE Last Documented On 3 1:23PM ; [facility] Pill Count: 49 HYDROCODONE Last Documented On 2 10:01AM ; [facility] Pill Count: 62 HYDROCODONE Last Documented On 2 3:28PM ; [facility] Pill Count: 61 HYDROCODONE Last Documented On 2 4:14PM ; [facility] Pill Count: 62 HYDROCODONE Last Documented On 2 4:21PM ; [facility] Pill Count: Patient did not bring pain medication to appointment for pill count, per policy. Advised in order to continue to safely prescribe opioids, medication must be brought to each appointment Last Documented On 2 4:14PM ; [facility] Pill Count: 82 HYDROCODONE Last Documented On 2 3:55PM ; [facility] Pill Count: Patient did not bring pain medication to appointment for pill count, per policy. Advised in order to continue to safely prescribe opioids, medication must be brought to each appointment Last Documented On 2 4:19PM ; [facility] Pill Count: Patient did not bring pain medication to appointment for pill count, per policy. Advised in order to continue to safely prescribe opioids, medication must be brought to each appointment Last Documented On 1 1:41PM ; [facility] Pill Count: five Not Appropr iate Had surgery and did not fill the pain med that was given after suregery Last Documented On 1 1:11PM ; [facility] Pill Count: 21 Appropriate Last Documented On 1 3:19PM ; [facility] Pill Count: 21 Appropriate Last Documented On 1 5:34PM ; [facility] Pill Count: 21 Appropriate Last Documented On 1 5:23PM ; [facility] Pill Count: ten Not Appropri ate ; discussed taking only as prescribed for back pain not myalgia symptoms related to covid Last Documented On 1 3:58PM ; [facility] Pill Count: 0 Last Documented On 0 3:51PM ; [facility] Pill Count: Patient did not bring pain medication to appointment for pill count, per policy. Advised in order to continue to safely prescribe opioids, medication must be brought to each appointment Last Documented On 0 3:02PM ; [facility] Pill Count: two Appropriate Last Documented On 0 7:51AM ; [facility] Pill Count: seven Appropriat e Last Documented On 0 10:51AM ; [facility] Pill Count: three Appropriat e Last Documented On 0 12:30PM ; [facility] Pill Count: seven Appropriat e Last Documented On 9 9:53AM ; [facility] Medical Equipment - Implanted Devices Includes: Current and historical Devices No Medical Equipment Recorded Medications Includes: Current and historical Medications Current Medications (continue as prescribed) Narcan 4 MG/0.1ML Nasal Liquid 01/21/2024 Provider: FELISHA SENIOR Diagnosis: Spinal stenosis, lumbar region with neurogenic claudication as directed Last Documented On 4 2:31PM By FELISHA SENIOR ; [facility] Hysingla ER 20 MG Oral Table t ER 24 Hour Abuse-Deterrent 01/21/2024 Provider: FELISHA SENIOR Diagnosis: Spinal stenosis, lumbar region with neurogenic claudication 1 tablet q 24 hours Last Documented On 4 2:31PM By FELISHA SENIOR ; [facility] oxyCODONE-Acetaminophen 10-325 MG Oral Tablet 01/15/20 Provider: Diagnosis: Last Documented On 02/01/2024 8:52AM By Lilli MAK ; [facility] traZODone HCl 100 MG Oral Tablet 11/02/2023 Provider : Diagnosis: Last Documented On 4 10:13AM By Lilli MAK ; [facility] Cyclobenzaprine HCl 10 MG Oral Tablet 10/29/2023 Pro vider: REFUGIO AMARO MD Diagnosis: Last Documented On 4 10:15AM By Lilli MAK ; [facility] Ketoconazole 2% External Cream 10/29/2023 Provider: REFUGIO AMARO MD Diagnosis: Last Documented On 4 10:15AM By Lilli MAK ; [facility] hydrOXYzine HCl 50 MG Oral Tablet 10/26/2023 Provide r: Diagnosis: Last Documented On 4 10:16AM By Lilli MAK ; [facility] Anastrozole 1 MG Oral Tablet 10/24/2023 Provider: Diagnosis: Last Documented On 4 10:16AM By Lilli MAK ; [facility] FeroSul 325 (65 Fe) MG Oral Tablet 10/24/2023 Provid er: Diagnosis: Last Documented On 4 10:18AM By Lilli MAK ; [facility] Venlafaxine HCl ER 225 MG Oral Tablet Extended R elease 24 Hour 10/23/2023 Provider: Diagnosis: Last Documented On 4 10:18AM By Lilli MAK ; [facility] Pregabalin 200 MG Oral Capsule 10/08/2023 Provider: [facility] Diagnosis: Fibromyalgia TAKE 1 CAPSULE BY MOUTH TWICE DAILY Last Documented On 4 1:51PM By FELISHA WU ; [facility] Omeprazole 40 MG Oral Capsule Delayed Release 08/11/20 23 Provider: Diagnosis: Last Documented On 4 10:17AM By Lilli MAK ; [facility] Lisinopril 40 MG Oral Tablet 04/11/2023 Provider: REFUGIO AMARO MD Diagnosis: Last Documented On 3 10:40AM By Lilli MAK ; [facility] Famotidine 20 MG Oral Tablet 01/23/2023 Provider: Diagnosis: Last Documented On 02/05/2023 4:01PM By Lilli MAK ; [facility] ARIPiprazole 2 MG Oral Tablet 01/09/2023 Provider: Diagnosis: Last Documented On 02/05/2023 4:04PM By Lilli MAK ; [facility] busPIRone HCl 15 MG Oral Tablet 09/20/2022 Provider: Diagnosis: Last Documented On 02/05/2023 4:05PM By Lilli MAK ; [facility] NIFEdipine ER 30 MG Oral Tab let Extended Release 24 Hour 05/04/2022 Provider: REFUGIO AMARO MD Diagnosis: Last Documented On 05/09/2022 3:25PM By Lilli MAK ; [facility] Metoprolol Succinate ER 200M G Oral Tablet Extended Release 24 Hour 10/03/2018 Provider: Diagnosis: Last Documented On 9 3:00PM By VENKAT MAK ; [facility] Past Medications on file Hysingla ER 20 MG Oral Tablet ER 24 Hour Abuse-Deterrent 12/17/2023 - 01/18/2024 Provider: FELISHA SENIOR Diagnosis: Spinal stenosis, lumbar region with neurogenic claudication 1 tablet q 24 hours Last Documented On 4 2:27PM By FELISHA SENIOR ; [facility] Hysingla ER 20 MG Oral Tablet ER 24 Hour Abuse-Deterrent 11/14/2023 - 12/17/2023 Provider: FELISHA SENIOR Diagnosis: Spinal stenosis, lumbar region with neurogenic claudication 1 tablet q 24 hours Last Documented On 4 11:11AM By FELISHA SENIOR ; [facility] Aspirin 325 MG Oral Tablet 10/28/2023 - 11/07/2023 Pro vider: Diagnosis: Last Documented On 4 10:36AM By FELISHA SENIOR ; [facility] HYDROcodone-Acetaminophen 5- 325 MG Oral Tablet 10/08/2023 - 11/23/2023 Provider: FELISHA SENIOR Diagnosis: Other spondylosis, lumbar region 1 every 6 hours as needed for severe pain, max 4 /day Last Documented On 4 10:38AM By Yojana Shaw RN ; [facility] HYDROcodone-Acetaminophen 5- 325 MG Oral Tablet 09/06/2023 - 10/08/2023 Provider: FELISHA SENIOR Diagnosis: Other spondylosis, lumbar region 1 every 6 hours as needed for severe pain, max 4 /day Last Documented On 4 1:42PM By FELISHA SENIOR ; [facility] HYDROcodone-Acetaminophen 5- 325 MG Oral Tablet 08/06/2023 - 09/04/2023 Provider: FELISHA SENIOR Diagnosis: Other spondylosis, lumbar region 1 every 6 hours as needed for severe pain, max 4 /day Last Documented On 4 8:13AM By FELISHA SENIOR ; [facility] HYDROcodone-Acetaminophen 5- 325 MG Oral Tablet 07/05/2023 - 08/06/2023 Provider: FELISHA SENIOR Diagnosis: Other spondylosis, lumbar region 1 every 6 hours as needed fo r severe pain, max 4/day11 Last Documented On 3 12:26PM By FELISHA SENIOR ; [facility] Pregabalin 200 MG Oral Capsule 07/05/2023 - 10/08/2023 Provider: FELISHA SENIOR Diagnosis: Fibromyalgia TAKE 1 CAPSULE BY MOUTH TWICE DAILY Last Documented On 4 1:42PM By FELISHA SENIOR ; [facility] Pregabalin 200 MG Oral Capsule 06/11/2023 - 07/05/2023 Provider: NYDIA YUN [employer], 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 Diagnosis: Fibromyalgia TAKE 1 CAPSULE BY MOUTH TWICE DAILY Last Documented On 3 10:52AM By FELISHA SENIOR ; [facility] HYDROcodone-Acetaminophen 5- 325 MG Oral Tablet 06/04/2023 - 07/05/2023 Provider: FELISHA SENIOR Diagnosis: Other spondylosis, lumbar region 1 every 6 hours as needed for severe pain, max 4 /day Last Documented On 3 10:52AM By FELISHA SENIOR ; [facility] HYDROcodone-Acetaminophen 5- 325 MG Oral Tablet 05/08/2023 - 06/04/2023 Provider: NYDIA YUN [employer], BIRD Diagnosis: Other spondylosis, lumbar region 1 every 6 hours as needed fo r severe pain, max 4/day Last Documented On 3 1:44PM By FELISHA SENIOR ; [facility] HYDROcodone-Acetaminophen 5- 325 MG Oral Tablet 04/05/2023 - 05/08/2023 Provider: FELISHA SENIOR Diagnosis: Other spondylosis, lumbar region 1 every 6 hours as needed for severe pain, max 4 /day Last Documented On 3 12:02PM By NYDIA GARCIAP-BC ; [facility] HYDROcodone-Acetaminophen 5- 325 MG Oral Tablet 03/02/2023 - 04/05/2023 Provider: FELISHA SENIOR Diagnosis: Other spondylosis, lumbar region 1 every 6 hours as needed for severe pain, max 4 /day Last Documented On 3 11:56AM By FELISHA SENIOR ; [facility] HYDROcodone-Acetaminophen 5- 325 MG Oral Tablet 02/05/2023 - 03/01/2023 Provider: FELISHA SENIOR Diagnosis: Other spondylosis, lumbar region 1 every 6 hours as needed for severe pain, max 4 /day Last Documented On 3 12:02PM By FELISHA SENIOR ; [facility] Vitamin D (Ergocalciferol) 1 .25 MG (12665 UT) Oral Capsule 01/20/2023 - 11/07/2023 Provider: Diagnosis: Last Documented On 4 10:13AM By Lilli MAK ; [facility] HYDROcodone-Acetaminophen 5- 325 MG Oral Tablet 01/05/2023 - 02/05/2023 Provider: FELISHA SENIOR Diagnosis: Other spondylosis, lumbar region 1 every 6 hours as needed for severe pain, max 4 /day Last Documented On 3 4:23PM By FELISHA SENIOR ; [facility] HYDROcodone-Acetaminophen 5- 325 MG Oral Tablet 12/05/2022 - 01/05/2023 Provider: FELISHA SENIOR Diagnosis: 1 every 6 hours as needed for severe pain, max 4 /day Last Documented On 3 2:45PM By [facility] ; [facility] Pregabalin 200 MG Oral Capsule 11/28/2022 - 06/11/2023 Provider: FELISHA SENIOR Diagnosis: Fibromyalgia TAKE 1 CAPSULE BY MOUTH TWICE DAILY Last Documented On 3 11:59AM [facility] ; [facility] HYDROcodone-Acetaminophen 5- 325 MG Oral Tablet 11/03/2022 - 12/04/2022 Provider: NYDIA FRANKEL 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 Diagnosis: 1 every 6 hours as needed for severe pain, max 4 /day Last Documented On 3 8:33AM By [facility]HA [facility] ; [facility] HYDROcodone-Acetaminophen 5- 325 MG Oral Tablet 10/06/2022 - 11/03/2022 Provider: NYDIA FRANKEL 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 Diagnosis: 1 every 6 hours as needed for severe pain Last Documented On 3 1:24PM By NYDIA YUN [facility] ; [facility] Anastrozole 1 MG Oral Tablet 09/19/2022 - 11/07/2023 Areli mooreder: Diagnosis: Last Documented On 4 10:16AM By Lilli Yung Alexi ; [facility] HYDROcodone-Acetaminophen 5- 325 MG Oral Tablet 09/06/2022 - 10/06/2022 Provider: NYDIA FRANKEL 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 Diagnosis: 1 every 6 hours as needed for severe pain Last Documented On 3 4:40PM By NYDIA YUN [facility] ; [facility] Pregabalin 200 MG Oral Capsule 08/17/2022 - 11/28/2022 Provider: FELISHA WU Diagnosis: Fibromyalgia TAKE 1 CAPSULE BY MOUTH TWICE DAILY Last Documented On 3 2:12PM By FELISHA SENIOR ; [facility] HYDROcodone-Acetaminophen 5- 325 MG Oral Tablet 07/31/2022 - 09/05/2022 Provider: NYDIA YUN APRN-NORYA, 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 Diagnosis: 1 every 6 hours as needed Last Documented On 3 2:51PM By NYDIA GARCIAP- ; [facility] HYDROcodone-Acetaminophen 5- 325 MG Oral Tablet 06/29/2022 - 07/31/2022 Provider: FELISHA WUBC Diagnosis: 1 every 6 hours as needed Last Documented On 2 12:48PM By NYDIA YUN [facility] ; [facility] Ketoconazole 2% External Cream 05/30/2022 - 03/23/2023 Provider: REFUGIO AMARO MD Diagnosis: Last Documented On 3 10:47AM By Lilli Yung Alexi ; [facility] HYDROcodone-Acetaminophen 5- 325 MG Oral Tablet 05/24/2022 - 06/28/2022 Provider: FELISHA WUBC Diagnosis: 1 every 6 hours as needed Last Documented On 2 1:39PM By FELISHA HERRERA-BC ; [facility] Pregabalin 200 MG Oral Capsule 05/09/2022 - 08/17/2022 Provider: FELISHA WUBC Diagnosis: Fibromyalgia TAKE 1 CAPSULE BY MOUTH TWICE DAILY Last Documented On 2 10:30AM By FELISHA WUBC ; [facility] HYDROcodone-Acetaminophen 5- 325 MG Oral Tablet 04/24/2022 - 05/24/2022 Provider: FELISHA WUBC Diagnosis: 1 every 6 hours as needed Last Documented On 2 3:42PM By FELISHA WUBC ; [facility] HYDROcodone-Acetaminophen 5- 325 MG Oral Tablet 03/20/2022 - 04/24/2022 Provider: FELISHA WUBC Diagnosis: 1 every 6 hours as needed Last Documented On 2 5:32PM By FELISHA WUBC ; [facility] HYDROcodone-Acetaminophen 5- 325 MG Oral Tablet 02/16/2022 - 03/20/2022 Provider: NYDIA G JAMA [employer], 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 Diagnosis: 1 every 6 hours as needed Last Documented On 2 4:51PM By FELISHA WUBC ; [facility] HYDROcodone-Acetaminophen 5- 325 MG Oral Tablet 01/09/2022 - 02/16/2022 Provider: FELISHA WUBC Diagnosis: 1 every 6 hours as needed Last Documented On 2 10:58AM By NYDIA YUN 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 ; [facility] HYDROcodone-Acetaminophen 5- 325 MG Oral Tablet 12/09/2021 - 01/06/2022 Provider: FELISHA WUBC Diagnosis: 1 every 6 hours as needed Last Documented On 2 8:16AM By FELISHA HERRERA-BC ; [facility] Pregabalin 200 MG Oral Capsule 11/21/2021 - 05/09/2022 Provider: FELISHA WUBC Diagnosis: TAKE 1 CAPSULE BY MOUTH TWICE DAILY Last Documented On 2 3:53PM By FELISHA HERRERA-BC ; [facility] HYDROcodone-Acetaminophen 5- 325 MG Oral Tablet 11/10/2021 - 12/09/2021 Provider: FELISHA WUBC Diagnosis: 1 every 6 hours as needed Last Documented On 2 11:56AM By FELISHA WUBC ; [facility] HYDROcodone-Acetaminophen 5- 325 MG Oral Tablet 10/13/2021 - 11/10/2021 Provider: FELISHA WUBC Diagnosis: 1 every 6 hours as needed Last Documented On 2 6:01PM By FELISHA HERRERA-BC ; [facility] HYDROcodone-Acetaminophen 5- 325 MG Oral Tablet 09/06/2021 - 10/12/2021 Provider: FELISHA WUBC Diagnosis: 1 every 6 hours as needed Last Documented On 2 9:12AM By FELISHA WUBC ; [facility] Pregabalin 200 MG Oral Capsule 08/15/2021 - 11/21/2021 Provider: FELISHA WUBC Diagnosis: TAKE 1 CAPSULE BY MOUTH TWICE DAILY Last Documented On 2 11:37AM By FELISHA SENIOR ; [facility] HYDROcodone-Acetaminophen 5- 325 MG Oral Tablet 08/12/2021 - 09/06/2021 Provider: FELISHA SENIOR Diagnosis: Other spondylosis, cervical region 1 every 6 hours as needed Last Documented On 2 5:13PM By FELISHA SENIOR ; [facility] HYDROcodone-Acetaminophen 7. 5-325 MG Oral Tablet 07/11/2021 - 08/12/2021 Provider: FELISHA SENIOR Diagnosis: 1 po tid prn Last Documented On 1 12:06PM By FELISHA SENIOR ; [facility] HYDROcodone-Acetaminophen 7. 5-325 MG Oral Tablet 06/14/2021 - 07/11/2021 Provider: FELISHA SENIOR Diagnosis: Spinal stenosis, lumbosacral region 1 po tid prn Last Documented On 1 3:02PM By FELISHA SENIOR ; [facility] Pregabalin 200 MG Oral Capsule 06/14/2021 - 08/15/2021 Provider: FELISHA SENIOR Diagnosis: Fibromyalgia 1 CAPSULE TWO TIMES A DAY Last Documented On 1 4:32PM By FELISHA SENIOR ; [facility] Anastrozole 1 MG Oral Tablet 06/14/2021 - 02/05/2023 P rokerwinder: Diagnosis: Last Documented On 02/05/2023 4:02PM By Lilli MAK ; [facility] Pregabalin 150 MG Oral Capsule 05/30/2021 - 07/01/2021 Provider: FELISHA SENIOR Diagnosis: TAKE 1 CAPSULE BY MOUTH TWICE DAILY Last Documented On 1 9:21AM By FELISHA SENIOR ; [facility] HYDROcodone-Acetaminophen 5- 325 MG Oral Tablet 05/10/2021 - 07/01/2021 Provider: FELISHA SENIOR Diagnosis: 1 every 6 hours as needed Last Documented On 1 9:22AM By FELISHA SENIOR ; [facility] Pregabalin 150 MG Oral Capsule 04/13/2021 - 05/30/2021 Provider: FELIHSA SENIOR Diagnosis: Fibromyalgia 1 CAPSULE TWO TIMES A DAY Last Documented On 1 5:36PM By FELISHA SENIOR ; [facility] Pregabalin 75 MG Oral Capsule 04/13/2021 - 06/14/2021 Provider: FELISHA SENIOR Diagnosis: Fibromyalgia 1 CAPSULE TWO TIMES A DAY Last Documented On 06/14/2021 1:42PM By Lilli MAK ; [facility] HYDROcodone-Acetaminophen 5- 325 MG Oral Tablet 04/13/2021 - 05/05/2021 Provider: FELISHA SENIOR 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, lumbar region 1 every 6 hours as needed Last Documented On 1 10:51AM By FELISHA SENIOR ; [facility] HYDROcodone-Acetaminophen 5- 325 MG Oral Tablet 2021 - 04/13/2021 Provider: FELISHA SENIOR Diagnosis: 1 po q 6-8 hours prn/ max 3 per day Last Documented On 1 1:37PM By FELISHA SENIOR ; [facility] HYDROcodone-Acetaminophen 5- 325 MG Oral Tablet 02/14/2021 - 2021 Provider: FELISHA SENIOR Diagnosis: Cervicalgia 1 po q 6-8 hours prn/ max 3 per day Last Documented On 1 4:57PM By FELISHA SENIOR ; [facility] HYDROcodone-Acetaminophen 5- 325 MG Oral Tablet 01/11/2021 - 02/11/2021 Provider: FELISHA SENIOR Diagnosis: Chronic pain syndrome 1 po q 6-8 hours prn/ max 3 per day Last Documented On 1 10:14AM By FELISHA SENIOR ; [facility] HYDROcodone-Acetaminophen 5- 325 MG Oral Tablet 12/13/2020 - 01/10/2021 Provider: FELISHA SENIOR Diagnosis: Chronic pain syndrome 1 po q 6-8 hours prn/ max 3 per day Last Documented On 1 5:12PM By FELISHA SENIOR ; [facility] HYDROcodone-Acetaminophen 5- 325 MG Oral Tablet 11/15/2020 - 12/13/2020 Provider: FELISHA SENIOR Diagnosis: Chronic pain syndrome 1 po q 6-8 hours prn Last Documented On 1 5:03PM By FELISHA SENIOR ; [facility] HYDROcodone-Acetaminophen 5- 325 MG Oral Tablet 10/07/2020 - 11/15/2020 Provider: FELISHA SENIOR Diagnosis: Chronic pain syndrome 1 po q 6-8 hours prnThis is 15 day rx Last Documented On 1 4:59PM By FELISHA SENIOR ; [facility] [place] 5-325 MG Oral Tablet 09/13/2020 - 2021 Provider: FELISHA SENIOR Diagnosis: Spinal stenosis, lumbosacral region 1 po q 6 hours prn/ not 4 da chano every daylast 30 days Last Documented On 1 3:39PM By FELISHA SENIOR ; [facility] Pregabalin 150 MG Oral Capsule 08/24/2020 - 04/13/2021 Provider: FELISHA SENIOR Diagnosis: Fibromyalgia TAKE 1 CAPSULE BY MOUTH TWICE DAILY Last Documented On 04/13/2021 1:12PM By Jonelle MAK ; [facility] [place] 5-325 MG Oral Tablet 08/09/2020 - 09/13/2020 Provider: FELISHA SENIOR Diagnosis: Spinal stenosis, lumbosacral region 1 po q 6 hours prn/ not 4 da chano every daylast 30 daysto fill 08/11/20 Last Documented On 1 5:32PM By FELISHA SENIOR ; [facility] [place] 5-325 MG Oral Tablet 07/13/2020 - 08/09/2020 Provider: FELISHA SENIOR Diagnosis: Spinal stenosis, lumbosacral region 1 po q 6 hours prn/ not 4 da chano every daylast 30 days Last Documented On 0 6:28PM By FELISHA SENIOR ; [facility] [place] 5-325 MG Oral Tablet 06/10/2020 - 07/12/2020 Provider: FELISHA SENIOR Diagnosis: Spinal stenosis, lumbosacral region 1 po q 6 hours prn/ not 4 da chano every daylast 30 days Last Documented On 0 9:04AM By FELISHA SENIOR ; [facility] [place] 5-325 MG Oral Tablet 05/11/2020 - 06/10/2020 Provider: FELISHA SENIOR Diagnosis: Spinal stenosis, lumbosacral region 1 po q 6 hours prn/ not 4 da chano every daylast 30 days Last Documented On 0 4:06PM By FELISHA SENIOR ; [facility] Pregabalin 150 MG Oral Capsule 05/03/2020 - 08/24/2020 Provider: FELISHA SENIOR Diagnosis: Fibromyalgia TAKE 1 CAPSULE BY MOUTH TWICE DAILY Last Documented On 0 3:10PM By FELISHA SENIOR ; [facility] [place] 5-325 MG Oral Tablet 04/12/2020 - 05/11/2020 Provider: FELISHA SENIOR Diagnosis: Spinal stenosis, lumbosacral region 1 poTID prn Last Documented On 0 3:27PM By FELISHA SENIOR ; [facility] Amit[place] 24 MCG Oral Capsule 04/06/2020 - 2021 Provider: FELISHA SENIOR Diagnosis: Constipation, unspecified TAKE 1 CAPSULE BY MOUTH TWICE DAILY Last Documented On 2021 3:29PM By Jonelle MAK ; [facility] [facility] [place] 5-325 MG Oral Tablet 03/09/2020 - 04/09/2020 Provider: FELISHA SENIOR Diagnosis: Spinal stenosis, lumbosacral region 1 poTID prnto fill 03/10/20 Last Documented On 0 5:17PM By FELISHA SENIOR ; [facility] Amitiza 24 MCG Oral Capsule 02/09/2020 - 04/06/2020 Provider: FELISHA SENIOR Diagnosis: Constipation, unspecified 1 CAPSULE TWO TIMES A DAY Last Documented On 0 2:59PM By FELISHA SENIOR ; [facility] [place] 5-325 MG Oral Tablet 02/09/2020 - 03/09/2020 Provider: FELISHA SENIOR Diagnosis: Spinal stenosis, lumbosacral region 1 poTID prn Last Documented On 0 2:43PM By FELISHA SENIOR ; [facility] Pregabalin 150 MG Oral Capsule 01/30/2020 - 05/03/2020 Provider: FELISHA SENIOR Diagnosis: Fibromyalgia 1 CAPSULE TWO TIMES A DAY Last Documented On 0 9:03AM By FELISHA SENIOR ; [facility] [place] 5-325 MG Oral Tablet 01/08/2020 - 02/09/2020 Provider: FELISHA SENOIR Diagnosis: Spinal stenosis, lumbosacral region 1 poTID prnto fill 01/10/20 Last Documented On 0 2:57PM By FELISHA SENIOR ; [facility] [place] 5-325 MG Oral Tablet 12/10/2019 - 01/08/2020 Provider: FELISHA SENIOR Diagnosis: Low back pain 1 poTID prnto fill 12/11/19 Last Documented On 0 10:55AM By FELISHA SENIOR ; [facility] [place] 5-325 MG Oral Tablet 11/11/2019 - 12/09/2019 Provider: FELISHA SENIOR Diagnosis: Low back pain 1 poTID prn Last Documented On 0 2:38PM By FELISHA SENIOR ; [facility] Lyrica 150 MG Oral Capsule 10/10/2019 - 05/11/2020 Provider: FELISHA SENIOR Diagnosis: Fibromyalgia TAKE 1 CAPSULE BY MOUTH TWICE DAILY Last Documented On 0 3:14PM By FELISHA SENIOR ; [facility] [place] 5-325 MG Oral Tablet 10/09/2019 - 11/07/2019 Provider: FELISHA SENIOR Diagnosis: Low back pain 1 poTID prnto fill 10/11/19 Last Documented On 0 10:52AM By FELISHA SENIOR ; [facility] [place] 5-325 MG Oral Tablet 09/08/2019 - 10/08/2019 Provider: FELISHA SENIOR Diagnosis: Low back pain 1 poTID prn Last Documented On 0 8:45AM By FELISHA SENIOR ; [facility] [place] 5-325 MG Oral Tablet 08/07/2019 - 09/08/2019 Provider: FELISHA SENIOR Diagnosis: Low back pain 1 poTID prnto fill 08/08/19 Last Documented On 0 4:55PM By FELISHA SENIOR ; [facility] Lyrica 150 MG Oral Capsule 07/09/2019 - 10/10/2019 Provider: FELISHA SENIOR Diagnosis: Fibromyalgia TAKE 1 CAPSULE BY MOUTH TWICE DAILY Last Documented On 0 12:32PM By FELISHA SENIOR ; [facility] [place] 5-325 MG Oral Tablet 07/09/2019 - 08/07/2019 Provider: FELISHA SENIOR Diagnosis: Low back pain 1 po BID prnto fill 07/10/19 Last Documented On 9 2:09PM By FELISHA SENIOR ; [facility] [place] 5-325 MG Oral Tablet 06/10/2019 - 07/08/2019 Provider: FELISHA SENIOR Diagnosis: Low back pain 1 po BID prn Last Documented On 9 8:51AM By FELISHA SENIOR ; [facility] Lyrica 150 MG Oral Capsule 06/02/2019 - 07/08/2019 Provider: FELISHA SENIOR Diagnosis: Fibromyalgia TAKE 1 CAPSULE BY MOUTH TWICE DAILY Last Documented On 9 8:50AM By FELISHA SENIOR ; [facility] Xanax 0.5 MG Oral Tablet 04/29/2019 - 08/07/2019 Provi pan: FELISHA SENIOR Diagnosis: Low back pain as directed 1 po 1 hour prio r to procedure, 1 po 30 minutes prior to procedure and 1 immediately prior prn Last Documented On 9 2:03PM By FELISHA SENIOR ; [facility] [place] 5-325 MG Oral Tablet 04/29/2019 - 06/10/2019 Provider: FELISHA SENIOR Diagnosis: Low back pain 1 po BID prnto fill 05/01/19 Last Documented On 9 4:12PM By FELISHA SENIOR ; [facility] [place] 5-325MG Oral Tablet 04/03/2019 - 04/29/2019 Provider: FELISHA SENIOR Diagnosis: Low back pain 1 po BID prn Last Documented On 9 3:16PM By FELISHA SENIOR ; [facility] [place] 5-325MG Oral Tablet 2019 - 04/03/2019 Provider: FELISHA SENIOR Diagnosis: Low back pain 1 po BID prn Last Documented On 9 1:55PM By FELISHA SENIOR ; [facility] Lyrica 150MG Oral Capsule 03/03/2019 - 06/02/2019 Provider: FELISHA SENIOR Diagnosis: Fibromyalgia TAKE 1 CAPSULE BY MOUTH TWICE DAILY Last Documented On 9 1:26PM By FELISHA SENIOR ; [facility] [place] 5-325MG Oral Tablet 01/31/2019 - 2019 Provider: FELISHA SENIOR Diagnosis: Low back pain 1 po BID prn Last Documented On 9 9:04AM By FELISHA SENIOR ; [facility] traMADol HCl 50MG Oral Tablet 01/28/2019 - 01/31/2019 Provider: FELISHA SENIOR Diagnosis: Fibromyalgia 1 po BID prn Last Documented On 9 11:57AM By Sydnee MAK ; [facility] Lyrica 150MG Oral Capsule 01/28/2019 - 03/03/2019 Provider: FELISHA SENIOR Diagnosis: Fibromyalgia TAKE 1 CAPSULE BY MOUTH TWICE DAILY Last Documented On 9 8:22AM By FLEISHA SENIOR ; [facility] [place] 5-325MG Oral Tablet 12/26/2018 - 01/31/2019 Provider: FELISHA SENIOR Diagnosis: Low back pain 1 po BID prn Last Documented On 9 11:51AM By FELISHA SENIOR ; [facility] [place] 5-325MG Oral Tablet 11/28/2018 - 12/26/2018 Provider: FELISHA SENIOR Diagnosis: Low back pain 1 po BID prn Last Documented On 9 4:54PM By FELISHA SENIOR ; [facility] Lyrica 150MG Oral Capsule, conventional 11/28/2018 - 01/28/2019 Provider: FELISHA SENIOR Diagnosis: Fibromyalgia 1 CAPSULE TWO TIMES A DAY Last Documented On 9 9:31AM By FELISHA SENIOR ; [facility] traMADol HCl 50MG Oral Tablet 10/31/2018 - 01/28/2019 Provider: FELISHA SENIOR Diagnosis: Fibromyalgia as directed 1-2 po TID prn pain Last Documented On 9 3:10PM By FELISHA SENIOR ; [facility] Ly[place] 150MG Oral Capsule 10/31/2018 - 11/28/2018 Provider: FELISHA SENIOR Diagnosis: Fibromyalgia 1 CAPSULE TWO TIMES A DAY Last Documented On 9 3:12PM By FELISHA SENIOR ; [facility] Gabapentin 100MG Oral Capsule 10/03/2018 - 06/24/2019 Provider: Diagnosis: 1 morning, 1 at noon, 3 tabs at bedtime Last Documented On 9 2:28PM By FELISHA WU ; [facility] Hydroxychloroquine Sulfate 200MG Oral Tablet 9 - 03/23/2023 Provider: Diagnosis: BID Last Documented On 3 10:47AM By Lilli MAK ; [facility] TraMADol HCl 50MG Oral Tablet 10/03/2018 - 06/25/2019 Provider: Diagnosis: Twice daily Last Documented On 9 11:22AM By FELISHA WU ; [facility] Levothyroxine Sodium 50MCG Oral Tablet 10/03/2018 - Provider: Diagnosis: Last Documented On 3 10:48AM By Lilli MAK ; [facility] Lisinopril 40MG Oral Tablet 10/03/2018 - 07/05/2023 Pr ovider: Diagnosis: Last Documented On 3 10:40AM By Lilli MAK ; [facility] Venlafaxine HCl 75MG Oral Tablet 10/03/2018 - 11/07/19 24 Provider: Diagnosis: Last Documented On 4 10:19AM By Lilli MAK ; [facility] Gabapentin 300MG Oral Capsule 10/03/2018 - 02/05/2019 Provider: FELISHA SENIOR Diagnosis: Systemic lupus erythematosus, unspecified as directed Last Documented On 9 3:41PM By FELISHA SENIOR ; [facility] Omeprazole 40MG Oral Capsule Delayed Release 9 - 02/05/2023 Provider: Diagnosis: Last Documented On 02/05/2023 4:03PM By Lilli MAK ; [facility] Medications Administered Includes: Administered Medications in patient's chart Medications Administered Diagnosis Date Pro vider Ketorolac Tromethamine 30 MG/ML IJ SOLN 0 03/23/2023 FELISHA SENIOR Last Documented On 3 11:03AM By Lilli MAK ; [facility] Results Includes: Results from 06/17/2024 through 06/17/2025 No Results Recorded For Specified Dates History of Present Illness History of Present Illness not supported for this document type No History of Present Illness Recorded Social History Description Last Updated Tobacco non-user 11/07/2023 Last Documented On 4 3:07PM ; [facility] Alcohol 07/31/2023 Last Documented On 3 2:52PM ; [facility] Consuming 5 or more drinks per day None 07/31/2023 Last Documented On 3 2:52PM ; [facility] Current nonsmoker 07/31/2023 Last Documented On 3 2:52PM ; [facility] Currently not in school 07/31/2023 Last Documented On 3 2:52PM ; [facility] Drug use 07/31/2023 Last Documented On 3 2:52PM ; [facility] Lives with spouse 07/31/2023 Last Documented On 3 2:52PM ; [facility] Non-smoker 07/31/2023 Last Documented On 3 2:52PM ; [facility] Not recovering alcoholic 07/31/2023 Last Documented On 3 2:52PM ; [facility] Not recovering from substance abuse 07/05 Last Documented On 3 2:52PM ; [facility] Number of times used recreat ional drug/ prescription drug for nonmedical reason. None 07/31/2023 Last Documented On 3 2:52PM ; [facility] No family problems 07/31/2023 Last Documented On 3 2:52PM ; [facility] No recent emotional stress 07/31/2023 Last Documented On 3 2:52PM ; [facility] Smoking status : Never smoker 08/07/2019 Last Documented On 9 9:54AM ; [facility] Currently 10/03/2018 Last Documented On 9 9:56AM ; [facility] No tobacco use 10/03/2018 Last Documented On 9 9:56AM ; [facility] Medical History Includes: Medical History in patient's chart Description Last Updated Reviewed and Unchanged 10/10/2019 Last Documented On 0 12:34PM ; [facility] Currently wearing eyeglasses 10/03/2018 Last Documented On 9 9:56AM ; [facility] Previously 3 time(s) 10/03/2018 Last Documented On 9 9:56AM ; [facility] History of arthritis 10/03/2018 Last Documented On 9 9:56AM ; [facility] History of cancer 10/03/2018 Last Documented On 9 9:56AM ; [facility] History of hypertension 10/03/2018 Last Documented On 9 9:56AM ; [facility] Family History Includes: Family History in patient's chart Description Last Updated Family history of kidney disease 019 Last Documented On 9 9:56AM ; [facility] Father Hypertension 10/03/2018 Last Documented On 9 9:56AM ; [facility] Mother Gun Shot Wound 9 Last Documented On 9 9:56AM ; [facility] Review of Systems Review of Systems [...] Active Last Documented On 4 8:53AM ; [facility] Insurance Includes: Active Insurance Policies Plan Name Member ID Group # Subscriber Relationship Effect nieves Dates 1 - [facility] [id number] KATHY Sanchez Clinical Notes Includes: Signed Clinical Notes starting from 09/22/2022 No Clinical Notes Recorded
--- OUTSIDE RECORDS SUMMARY | 2025-06-17 17:42 | XMS_ITS | Encounter Summary ---
Author Organization [facility] Address [address] [place] [address] Care Team Providers Care Certified Health Education Specialist Name Role Phone Key Tolliver MD Primary Care Provider Pablo Liriano MD Unavailable [phone] Evan Willis MD Unavailable [phone] Charles Kingston MD Unavailable Reason for Visit * Reason Onset Date Comments Question 02/20/2025 Encounter Details Date Type Department Care Team (Late st Contact Info) Description 02/20/2025 Telephone [facility] - Orthopedic Surgery [address] [facility] [address] [place] [address] Tamie Olivas, DARRON Question Social [...] on file Legal Sex Female 11:46 AM CAR BRACER Gender Identity Not on file Sexual Orientation [...] st Contact Info) Description 09/23/2025 11:30 AM CAR BRACER Office Visit [facility] - Orthopedics [address] [facility] [place] [address] Yandel Petersen MD [address] [place] [address] 03/11/2026 2:00 PM CDT Office Visit [facility] - Rheumatology [address] [facility] [place] [address] Ev Lowery MD [facility] [facility] [address] [place] [phone] documented as of this encounter Goals Goal Patient Goal Type Associated Problems Recent Progress Patient-Stated? Author Mobility General Improving( 1:50 PM CDT) No Coreen Muñoz, RN Note: Expected end date: 12/01/2020 The goal is to maintain or improve your mobility at the optimum level for you. Interventions: Mobility General Worsening( 1:20 PM CAR BRACER) No Lilo Kaminski, DARRON Note: Expected end date: 11/17/2019 The goal is to maintain or improve your mobility at the optimum level for you. Interventions: PAIN General No Shira Sun, DARRON Note: Expected end date: 01/18/2020 Patient's pain/discomfort is manageable. Interventions: documented as of this encounter Visit Diagnoses Not on filedocumented in this encounter Care Teams Certified Health Education Specialist Relationship Specialty Start Date End Date Key Tolliver MD [address] [place] [address] [phone] PCP - General 10/22/18 Pablo Liriano MD [address] [place] [address] [id number] Orthopedic Surgery 05/22/19 Evan Willis MD [address] [place] [address] [phone] Medical Oncologist Medical Oncology 11/02/21 Charles Kingston MD [address] [phone] Clinical Practitioner Cardiology 11/03/21 documented as of this encounter
--- OUTSIDE RECORDS SUMMARY | 2025-06-17 17:42 | XMS_ITS | Encounter Summary ---
Author Organization [facility] Address [address] [place] [address] Care Team Providers Care Traffic Clerk Name Role Phone Key Tolliver MD Primary Care Provider [phone] Reason for Visit * Reason Comments Medication Refill Encounter Details Date Type Department Care Team ([facility] Contact Info) Description 11/20/2021 [facility] [id number] [place] [place] [address] Rodolfo Truong MD [address] [place], [place] [id number] Social History Tobacco Use Types Packs/Day Years Used Date Smoking Tobacco: Never Smokeless Tobacco: Never Alcohol Use Standard Drinks/Week Comments No 0 (1 standard drink = 0.6 oz pur e alcohol) Comments No Sex and Gender Information Value Date Recorded Sex Assigned at Not on file Legal Sex Female 1:52 PM DULSER Gender Identity Not on file Sexual Orientation Not on file documented as of this encounter Plan of Treatment Upcoming Encounters Date Type Department Care Team ([facility] Contact Info) Description 06/25/2025 2:00 PM CDT Office Visit [facility] Oncology and Hematology - [place] [address] [place] [address] [facility] [address] [place] [address] Evan Willis MD [address] [facility] [address] [place] [address] 08/17/2025 1:00 PM DULSER Office Visit [facility] Plastic Surgery at the [facility] [address] [place] [address] Rodolfo Truong MD [address] [facility] [address] [place] [address] documented as of this encounter Visit Diagnoses Not on filedocumented in this encounter Care Teams Traffic Clerk Relationship Specialty [place] [address] [place] [phone] PCP - General Internal Medicine 11/05/18 documented as of this encounter
--- OUTSIDE RECORDS SUMMARY | 2025-06-17 17:42 | XMS_ITS | Clinical Summary ---
Author Organization [facility] Address [address] [place] [address] Phone Care Team Providers Care Backup Engineer Name Role Phone LEILANI MABRY, NILESH Primary Care Provider [phone] Reason for Visit and Chief Complaint The Chief Complaint is: 1 MO FU Problems Includes: Problems addressed during this encounter and other active Problems Current Visit Onset Date Resolved Date Provider Charla jones Status Chronic Pain Syndrome 07/31/2023 HARLEEN COULTER PMHNP Active Last Documented On 3 1:32PM ; [facility] Plan of Treatment Education and Decision Aids were provided during visit for: Pill Count: 25 HYSINGLA Last Documented On 4 8:54AM ; [facility] Pill Count: two HYSINGLA Last Documented On 4 9:14AM ; [facility] Pill Count: HYDROCODONE ~out of medication Last Documented On 4 9:14AM ; [facility] Assessments Includes: Assessments from this encounter Findings - Systemic lupus erythematosus [M32.9 - Systemic lupus erythematosus, unspecified] - Last Documented On 02/01/2024 9:17AM ; [facility] - Sacroiliitis [M46.1 - Sacroiliitis, not elsewhere classified] - Last Documented On 02/01/2024 9:17AM ; [facility] - Lumbar spondylosis with radiculopathy [M47.26 - Other spondylosis with radiculopathy, lumbar region] - Last Documented On 02/01/2024 9:17AM ; [facility] - Lumbar stenosis with neurogenic claudication [M48.062 - Spinal stenosis, lumbar region with neurogenic claudication] - Last Documented On 02/01/2024 9:17AM ; [facility] - Fibromyalgia [M79.7 - Fibromyalgia] - Last Documented On 02/01/2024 9:17AM ; [facility] - Chronic pain syndrome [G89.4 - Chronic pain syndrome] - Last Documented On 02/01/2024 9:17AM ; [facility] - [facility] use of opiate analgesic [Z79.891 - [facility] (current) use of opiate analgesic] - Last Documented On 02/01/2024 9:17AM ; [facility] Instructions Includes: Instructions from this encounter Education and Decision Aids were provided during visit for: Pill Count: 25 HYSINGLA Last Documented On 8:54AM ; [facility] Pill Count: two HYSINGLA Last Documented On 9:14AM ; [facility] Pill Count: HYDROCODONE ~out of medication Last Documented On 9:14AM ; [facility] Medical Equipment - Implanted Devices Includes: Current Devices No Medical Equipment Recorded Medications Includes: Medications discussed during this encounter and other current Medications Current Medications (continue as prescribed) Narcan 4 MG/0.1ML Nasal Liquid 01/21/2024 Provider: FELISHA SENIOR Diagnosis: Spinal stenosis, lumbar region with neurogenic claudication as directed Last Documented On 4 2:31PM By FELISHA SENIOR ; [facility] Hysingla ER 20 MG Oral Table t ER 24 Hour Abuse-Deterrent 01/21/2024 Provider: FELISHA SENIOR Diagnosis: Spinal stenosis, lumbar region with neurogenic claudication 1 tablet q 24 hours Last Documented On 4 2:31PM By FELSIHA SENIOR ; [facility] oxyCODONE-Acetaminophen 10-325 MG Oral Tablet 01/15/20 Provider: Diagnosis: Last Documented On 02/01/2024 8:52AM By Lilli MAK ; [facility] traZODone HCl 100 MG Oral Tablet 11/02/2023 Provider : Diagnosis: Last Documented On 4 10:13AM By Lilli MAK ; [facility] Cyclobenzaprine HCl 10 MG Oral Tablet 10/29/2023 Pro vider: REFUGIO AMARO MD Diagnosis: Last Documented On 4 10:15AM By Lilli MAK ; [facility] Ketoconazole 2% External Cream 10/29/2023 Provider: REFUGIO AMARO MD Diagnosis: Last Documented On 4 10:15AM By Lilli MAK ; [facility] hydrOXYzine HCl 50 MG Oral Tablet 10/26/2023 Provide r: Diagnosis: Last Documented On 4 10:16AM By Lilli MAK ; [facility] Anastrozole 1 MG Oral Tablet 10/24/2023 Provider: Diagnosis: Last Documented On 4 10:16AM By Lilli MAK ; [facility] FeroSul 325 (65 Fe) MG Oral Tablet 10/24/2023 Provid er: Diagnosis: Last Documented On 4 10:18AM By Lilli MAK ; [facility] Venlafaxine HCl ER 225 MG Oral Tablet Extended R elease 24 Hour 10/23/2023 Provider: Diagnosis: Last Documented On 4 10:18AM By Lilli MAK ; [facility] Pregabalin 200 MG Oral Capsule 10/08/2023 Provider: FELISHA HERRERA- Diagnosis: Fibromyalgia TAKE 1 CAPSULE BY MOUTH TWICE DAILY Last Documented On 4 1:51PM By FELISHA SENIOR ; [facility] Omeprazole 40 MG Oral Capsule Delayed Release 08/11/20 Provider: Diagnosis: Last Documented On 4 10:17AM By Lilli MAK ; [facility] Lisinopril 40 MG Oral Tablet 04/11/2023 Provider: REFUGIO AMARO MD Diagnosis: Last Documented On 3 10:40AM By Lilli MAK ; [facility] Famotidine 20 MG Oral Tablet 01/23/2023 Provider: Diagnosis: Last Documented On 02/05/2023 4:01PM By Lilli MAK ; [facility] ARIPiprazole 2 MG Oral Tablet 01/09/2023 Provider: Diagnosis: Last Documented On 02/05/2023 4:04PM By Lilli MAK ; [facility] busPIRone HCl 15 MG Oral Tablet 09/20/2022 Provider: Diagnosis: Last Documented On 02/05/2023 4:05PM By Lilli MAK ; [facility] NIFEdipine ER 30 MG Oral Tab let Extended Release 24 Hour 05/04/2022 Provider: REFUGIO AMARO MD Diagnosis: Last Documented On 05/09/2022 3:25PM By Lilli MAK ; [facility] Metoprolol Succinate ER 200M G Oral Tablet Extended Release 24 Hour 10/03/2018 Provider: Diagnosis: Last Documented On 9 3:00PM By VENKAT MAK ; [facility] Medications Administered Includes: Administered Medications from this encounter No Administered Medications Recorded Vital Signs Includes: Vital Signs from this encounter Vital Name 02/01/2024 08:50A Temp-Oral (F) 98.6 Height (in) 65 Weight (lb) 215 Body Mass Index 35.8 Body Surface Area 2 Pain Level 8 Last Documented: On 02/01/2024 8:51AM ; [facility] Results Includes: Results discussed during this encounter [...] and a report back to the [employer] electroplating sales representative that she was getting approximate [...] psychological evaluation and meeting with the [employer] electroplating sales representative. Psychological evaluation revealed no barriers [...] will need a refill of hydrocodone today. [place] QUOTATION CHECKER appropriate. Last UDS appropriate, this will be [...] simulation trial under fluoroscopic guidance. Of note, [place] prescription monitoring database was reviewed and found [...] UDS appropriate. We will repeat this today. [facility], [place] appropriate. She has exhibited no signs of [...] allows her to maintain function levels. [place] QUOTATION CHECKER is appropriate. UDS was appropriate Past note: [...] for visit: Provider: Privacy of provider's office. [address] [place] [id number] Patient: Patient personal setting Total time spent with patient via telecommunication 15 minutes Social History Description Last Updated Tobacco non-user 11/07/2023 Last Documented On 4 8:46AM ; [facility] Alcohol 07/31/2023 Last Documented On 4 8:46AM ; [facility] Consuming 5 or more drinks per day None 07/31/2023 Last Documented On 4 8:46AM ; [facility] Current nonsmoker 07/31/2023 Last Documented On 4 8:46AM ; [facility] Drug use 07/31/2023 Last Documented On 4 8:46AM ; [facility] Lives with spouse 07/31/2023 Last Documented On 4 8:46AM ; [facility] Non-smoker 07/31/2023 Last Documented On 4 8:46AM ; [facility] Number of times used recreat ional drug/ prescription drug for nonmedical reason. None 07/31/2023 Last Documented On 4 8:46AM ; [facility] Smoking status : Never smoker 08/07/2019 Last Documented On 4 8:46AM ; [facility] Currently 10/03/2018 Last Documented On 4 8:46AM ; [facility] Procedures and Surgical History Includes: Procedures from this encounter Procedures Code Diagnosis Performing Provider Service L ocation Service Date use of tobacco assessment performed 1000F Last Documented On 4 8:52AM ; [facility] review of medications documented 1160F Last Documented On 4 8:52AM ; [facility] Clinical summary provided to patient via portal/mailed. ~ Patient understands and agrees with treatment plan. Questions answered Last Documented On 4 9:13AM ; [facility] Medical History Includes: Medical History addressed during this encounter Description Last Updated Reviewed and Unchanged 10/10/2019 Last Documented On 4 8:46AM ; [facility] Currently wearing eyeglasses 10/03/2018 Last Documented On 4 8:46AM ; [facility] Previously 3 time(s) 10/03/2018 Last Documented On 4 8:46AM ; [facility] History of arthritis 10/03/2018 Last Documented On 4 8:46AM ; [facility] History of cancer 10/03/2018 Last Documented On 4 8:46AM ; [facility] History of hypertension 10/03/2018 Last Documented On 4 8:46AM ; [facility] Family History Includes: Family History addressed during [...] Active Last Documented On 4 8:53AM ; [facility] Encounters Encounter Provider Location Date Check-In Time Check-Out Time Diagnosis [facility] 02/01/20 24 9:00AM 9:23AM Systemic Lupus Erythematosus,Chr onic Pain Syndrome,Sacroili itis,Fibromyalgia ,Spinal Stenosis Lumbar with Neurogenic Claudication,Spon dylosis with Radiculopathy Lumbar Region,Correction Use of Opiate Analgesic Insurance Includes: Active Insurance Policies Plan Name Member ID Group # Subscriber Relationship Effect nieves Dates 1 - [employer] [id number] KATHY MENDENHALL Self Clinical Notes Includes: Clinical Notes from this encounter * Progress note Date Encounter Last Documented by 02/01/2024 TELEHEALTH Last documented on 02/01/2024; 9:17 AM, FELISHA SENIOR; [facility] Active Problems & Conditions - [...] spinal cord summation trial using 28 contact [employer] percutaneous leads. His replacement. Guidance. Patient tolerated the procedure well. Despite multiple efforts approved reprogramming, and a report back to the [employer] electroplating sales representative that she was getting approximate [...] psychological evaluation and meeting with the [employer] electroplating sales representative. Psychological evaluation revealed no barriers [...] will need a refill of hydrocodone today. [place] QUOTATION CHECKER appropriate. Last UDS appropriate, this will be [...] simulation trial under fluoroscopic guidance. Of note, [place] prescription monitoring database was reviewed and found [...] UDS appropriate. We will repeat this today. [facility], [place] appropriate. She has exhibited no signs of [...] allows her to maintain function levels. [place] QUOTATION CHECKER is appropriate. UDS was appropriate Past note: [...] [G89.4 - Chronic pain syndrome] - terminal carman use of opiate analgesic [Z79.891 - terminal carman (current) use of opiate analgesic] Therapy - [...] for visit: Provider: Privacy of provider's office. [address] [place] [address] Patient: Patient personal setting Total time spent with patient via telecommunication 15 minutes
--- OUTSIDE RECORDS SUMMARY | 2025-06-17 17:42 | XMS_ITS | Clinical Summary ---
Author Organization [facility] Address [address] [place] [address] Phone Care Team Providers Care Senior Controls Analyst Name Role Phone LEILANI MABRY, NILESH Primary Care Provider [phone] Reason for Visit and Chief Complaint RX ISSUE/REFILL Problems Includes: Problems addressed during this encounter and other active Problems All Visits Onset Date Resolved Date Provider Condition S tatus Chronic Pain Syndrome 07/31/2023 NURY ECHAVARRIA PMHNP Active Last Documented On 3 1:32PM ; [facility] Plan of Treatment No Plan of Treatment [...] On 4 2:31PM By FELISHA HERRERA-BC ; [facility] Hysingla ER 20 MG Oral Table t ER 24 Hour Abuse-Deterrent 01/21/2024 Provider: FELISHA FREEMAN ANP-BC Diagnosis: Spinal stenosis, lumbar region with neurogenic claudication 1 tablet q 24 hours Last Documented On 4 2:31PM By FELISHA SENIOR ; [facility] oxyCODONE-Acetaminophen 10-325 MG Oral Tablet 05/14/20 24 Provider: Diagnosis: Last Documented On 02/01/2024 8:52AM By Lilli MAK ; [facility] traZODone HCl 100 MG Oral Tablet 11/02/2023 Provider : Diagnosis: Last Documented On 4 10:13AM By Lilli MAK ; [facility] Cyclobenzaprine HCl 10 MG Oral Tablet 10/29/2023 Pro vider: REFUGIO AMARO MD Diagnosis: Last Documented On 4 10:15AM By Lilli MAK ; [facility] Ketoconazole 2% External Cream 10/29/2023 Provider: REFUGIO AMARO MD Diagnosis: Last Documented On 4 10:15AM By Lilli MAK ; [facility] hydrOXYzine HCl 50 MG Oral Tablet 10/26/2023 Provide r: Diagnosis: Last Documented On 4 10:16AM By Lilli MAK ; [facility] Anastrozole 1 MG Oral Tablet 10/24/2023 Provider: Diagnosis: Last Documented On 4 10:16AM By Lilli MAK ; [facility] FeroSul 325 (65 Fe) MG Oral Tablet 10/24/2023 Provid er: Diagnosis: Last Documented On 4 10:18AM By Llili MAK ; [facility] Venlafaxine HCl ER 225 MG Oral Tablet Extended R elease 24 Hour 10/23/2023 Provider: Diagnosis: Last Documented On 4 10:18AM By Lilli MAK ; [facility] Pregabalin 200 MG Oral Capsule 10/08/2023 Provider: FELISHA SENIOR Diagnosis: Fibromyalgia TAKE 1 CAPSULE BY MOUTH TWICE DAILY Last Documented On 4 1:51PM By FELISHA SENIOR ; [facility] Omeprazole 40 MG Oral Capsule Delayed Release 08/11/20 Provider: Diagnosis: Last Documented On 4 10:17AM By Lilli MAK ; [facility] Lisinopril 40 MG Oral Tablet 04/11/2023 Provider: REFUGIO AMARO MD Diagnosis: Last Documented On 3 10:40AM By Lilli MAK ; [facility] Famotidine 20 MG Oral Tablet 01/23/2023 Provider: Diagnosis: Last Documented On 02/05/2023 4:01PM By Lilli MAK ; [facility] ARIPiprazole 2 MG Oral Tablet 01/09/2023 Provider: Diagnosis: Last Documented On 02/05/2023 4:04PM By Lilli MAK ; [facility] busPIRone HCl 15 MG Oral Tablet 09/20/2022 Provider: Diagnosis: Last Documented On 02/05/2023 4:05PM By Lilli MAK ; [facility] NIFEdipine ER 30 MG Oral Tab let Extended Release 24 Hour 05/04/2022 Provider: ERFUGIO AMARO MD Diagnosis: Last Documented On 05/09/2022 3:25PM By Lilli MAK ; [facility] Metoprolol Succinate ER 200M G Oral Tablet Extended Release 24 Hour 10/03/2018 Provider: Diagnosis: Last Documented On 9 3:00PM By VENKAT MAK ; [facility] Medications Administered Includes: Administered Medications from this encounter No Administered Medications Recorded Results Includes: Results discussed during this encounter No Results Recorded For Specified Dates History of Present Illness Includes: History of Present Illness from this encounter No History of Present Illness Recorded Social History Description Last Updated Tobacco non-user 11/07/2023 Last Documented On 4 2:03PM ; [facility] Alcohol 07/31/2023 Last Documented On 4 2:03PM ; [facility] Consuming 5 or more drinks per day None 07/31/2023 Last Documented On 4 2:03PM ; [facility] Current nonsmoker 07/31/2023 Last Documented On 4 2:03PM ; [facility] Drug use 07/31/2023 Last Documented On 4 2:03PM ; [facility] Lives with spouse 07/31/2023 Last Documented On 4 2:03PM ; [facility] Non-smoker 07/31/2023 Last Documented On 4 2:03PM ; [facility] Number of times used recreat ional drug/ prescription drug for nonmedical reason. None 07/31/2023 Last Documented On 4 2:03PM ; [facility] Smoking status : Never smoker 08/07/2019 Last Documented On 4 2:03PM ; [facility] Currently 10/03/2018 Last Documented On 4 2:03PM ; [facility] Medical History Includes: Medical History addressed during this encounter Description Last Updated Reviewed and Unchanged 10/10/2019 Last Documented On 4 2:03PM ; [facility] Currently wearing eyeglasses 10/03/2018 Last Documented On 4 2:03PM ; [facility] Previously 3 time(s) 10/03/2018 Last Documented On 4 2:03PM ; [facility] History of arthritis 10/03/2018 Last Documented On 4 2:03PM ; [facility] History of cancer 10/03/2018 Last Documented On 4 2:03PM ; [facility] History of hypertension 10/03/2018 Last Documented On 4 2:03PM ; [facility] Family History Includes: Family History addressed [...] Active Last Documented On 4 8:53AM ; [facility] Encounters Encounter Provider Location Date Check-In Time Check-Out Time Diagnosis RX ISSUE/REFILL FELISHA HERRERA-TAMIKO 12/14/2023 2:04PM 11:59PM Insurance Includes: Active Insurance Policies Plan Name Member ID Group # Subscriber Relationship Effect nieves Dates 1 - [facility] [id number] KATHY Sanchez Clinical Notes Includes: Clinical Notes from this encounter * Progress note Date Encounter Last Documented by 12/14/2023 RX ISSUE/REFILL Last documented on 12/17/2023; 2:39 PM, FELISHA GIBSON ANP-; [facility] Active Problems & Conditions [...]
--- OUTSIDE RECORDS SUMMARY | 2025-06-17 17:42 | XMS_ITS ---
Care Plan - [facility] Created on: June 17, 2025 KATHY MENDENHALL : 1970 Sex: Female Author Organization [facility] Address [address] [place] [address] Phone Care Team Providers Care Set Decorator Name Role Phone NILESH DUKE MD Primary Care Provider [phone]
--- OUTSIDE RECORDS SUMMARY | 2025-06-17 17:42 | XMS_ITS | Clinical Summary ---
Author Organization [facility] Address [address] [place] [address] Care Team Providers Care Director Of Market Research Name Role Phone Key Tolliver MD Primary Care Provider Pablo Liriano MD Unavailable [phone] Evan Willis MD Unavailable [phone] Charles Kingston MD Unavailable Source Comments [facility],non-owned Affiliates and Associated Physician Practices is amultiple site organization consisting of ambulatory clinics and hospital sitesin [place], [place], [place] and [place]. This disclosure is being madepursuant to the Care Everywhere program and may not contain all information available regarding this patient. 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 Chest [...] Telephone [facility] [address] [place] [phone] Myriam Roman, RN Appointment 06/05/2025 Telephone [facility] [address] [facility], [place] [place] [phone] Myriam Roman wrap checker 05/28/2025 2:30 PM CDT Office Visit [facility] - Orthopedic Surgery [address] [place] [phone] Yandel Petersen MD Lumbar pain (Primary Dx); Lumbar radiculopathy; Status post cervical disc replacement; Pain in joint of right shoulder 05/28/2025 1:00 PM CDT - 05/28/2025 11:59 PM CDT Hospital Encounter [facility] [address], [address] [place] [phone] Yandel Petersen MD Discharge Disposition: Home or [...] on file Legal 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 Gender Identity Not on file Sexual Orientation [...] st Contact Info) Description 09/23/2025 11:30 AM 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 Interventions: PAIN General No Shira Sun RN Note: Expected end date: 01/18/2020 Patient's pain/discomfort is manageable. Interventions: Medical Devices Implanted Type Area Front Desk Receptionist Device Identifier Shelf Expiration Date Model / Serial / Lot Cmnt Bone Plc R+Ggnta 40gm Lf Grn Implanted:Qty: 1 on 10/11/2017 by Rajendra Ingram MD at [facility] Left: Knee [employer] 12/01/2020 [id number] / / [id number] Description:12 BEADS IN LEFT KNEE ON VICRYL SUTURE 21 BEADS IN RIGHT KNEE ON VICRYL SUTURE Brng [id number] Vngrd Arcm Kn Ant Stab Implanted:Qty: 1 on 10/16/2017 by Rajendra Ingram MD at [facility] Left: Knee [employer] 06/09/2022 [id number] / / Brng [id number] Vngrd Arcm Kn Ant Stab Implanted:Qty: 1 on 10/16/2017 by Rajendra Ingram MD at [facility] Right: Knee [employer] 07/25/2022 [id number] / / Cmpnt Tibtry Bmt As Mx Kn Intlk Prm Lck Implanted:Qty: 1 on 10/16/2017 by Rajendra Ingram MD at [facility] Left: Knee [employer] 07/11/2027 [id number] / / Cmpnt Tibtry Bmt As Mx Kn Intlk Prm Lck Implanted:Qty: 1 on 10/16/2017 by Rajendra Ingram MD at [facility] Right: Knee [employer] 06/17/2027 [id number] / / Kam Kn Tot Rev 50% Of 2013 Implanted:Qty: 1 on 10/16/2017 by Rajendra Ingram MD at [facility] Wan [employer] KR2 KNEE TO T REV WAN BILL ONLY / / Cmpnt Glnd 38mm Std Glenosphere Sckt Geovany Implanted:Qty: 1 on 03/19/2019 by Pablo Liriano MD at [facility] Left: Shoulder Dep[employer] Inc 11/01/2023 [id number] / / Description:DXTND GLENOSPHER E STD R08KV--73/22 LG Dxtend Mod Cent Epi 1 Ocampo Implanted:Qty: 1 on 03/19/2019 by Pablo Liriano MD at [facility] Left: Shoulder 01/01/2024 1307-20-101 / / Description:delta xtend mudu lar centered epiphysis Global Unite Std Stem Sz 8 Implanted:Qty: 1 on 03/19/2019 by Pablo Liriano MD at [facility] Left: Shoulder 08/02/2027 1100-08-100 / / Description:global unite por ocoat standard stem Dxtend Stand Pe Cup D38 +3mm Implanted:Qty: 1 on 03/19/2019 by Pablo Liriano MD at [facility] Left: Shoulder 1307-38-203 / / [id number] Description:Delta xtend lyudmila ral PE cup standard Sys Shld Tot Arthroplst Rev Implanted:Qty: 1 on 03/19/2019 by Pablo Liriano MD at [facility] Left: Shoulder [employer] S4 DEPUY / / Cmpnt Glnd 27mm Std Geovany Xtend Metaglene Implanted:Qty: 1 on 03/19/2019 by Pablo Liriano MD at [facility] Left: Shoulder [employer] 12/02/2023 1307-60-000 / / Description:DXTEND METAGLENE Dxtend Screw Lock D4.5x36mm Implanted:Qty: 1 on 03/19/2019 by Pablo Liriano MD at [facility] Left: Shoulder 12/02/2023 1307-90-036 / / Description:PACK ACL TISSUE FX CSTM SRG PRC DISP Screw 4.5mm 30mm Shldr Glnd Lck Geovany Implanted:Qty: 1 on 03/19/2019 by Pablo Liriano MD at [facility] Left: Shoulder [employer] 01/01/2024 1307-90-030 / / Description:DXTEND SCREW LOC K D4.3E79GW--50/22 LG 6.5mm Canellous Screw Implanted:Qty: 1 on 10/25/2020 by Anjelica Gutierres MD at [facility] Right: Ankle [employer] 486-55-01 / / 6.5mm Cancellous Screw Implanted:Qty: 1 on 10/25/2020 by Anjelica Gutierres MD at [facility] Right: Ankle Wna Biomet / / Cortical Screw 2.7mm Implanted:Qty: 1 on 10/25/2020 by Anjelica Gutierres MD at [facility] Right: Ankle [employer] 01-5960-247-35 / / Screw 3.5mm 32mm 2.5mm Slf-Tap Sm Hex Implanted:Qty: 2 on 10/25/2020 by Anjelica Gutierres MD at [facility] Right: Ankle [employer] [id number] / / Screw 3.5mm 45mm 2.5mm Slf-Tap Sm Hex Implanted:Qty: 1 on 10/25/2020 by Anjelica Gutierres MD at [facility] Right: Ankle [employer] [id number] / / Graft Bone Alfs + Dbm 1cc Algrf Pst Implanted:Qty: 1 on 10/25/2020 by Anjelica Gutierres MD at [facility] Right: Ankle Allosource 04/08/2021 [id number] / / [id number] Bsplt Glnd 30mm Rsp Shldr P2 Strl Lf Implanted:Qty: 1 on 04/26/2022 by Mariano Guzmán MD at [facility] Left: Shoulder [employer] 03/23/2028 508-32-204 / / [id number] Screw 5mm 14mm Shldr Lck Rsp Glnd Bsplt Implanted:Qty: 1 on 04/26/2022 by Mariano Guzmán MD at [facility] Left: Shoulder [employer] 03/25/2028 506-03-114 / / [id number] Screw 5mm 14mm Shldr Lck Rsp Glnd Bsplt Implanted:Qty: 1 on 04/26/2022 by Mariano Guzmán MD at [facility] Left: Shoulder [employer] 04/05/2028 506-03-114 / / [id number] Screw 5mm 30mm Shldr Lck Rsp Glnd Bsplt Implanted:Qty: 1 on 04/26/2022 by Mariano Guzmán MD at [facility] Left: Shoulder [employer] 03/13/2028 506-03-130 / / [id number] Screw 5mm 30mm Shldr Lck Rsp Glnd Bsplt Implanted:Qty: 1 on 04/26/2022 by Mariano Guzmán MD at [facility] Left: Shoulder [employer] 03/18/2028 506-03-130 / / [id number] Cmnt Bone Djo Srg Cblt 40gm Hvisc Strl Implanted:Qty: 1 on 04/26/2022 by Mariano Guzmán MD at [facility] Left: Shoulder [employer] 03/16/2023 600-15-000 / / [id number] Head Glnd 32mm Rsp Ntrl Shldr Rtn Screw Implanted:Qty: 1 on 04/26/2022 by Mariano Guzmán MD at [facility] Left: Shoulder [employer] 03/22/2028 508-32-101 / / [id number] Ins Sckt Rsp Djo Srg +4mm Hum Hxe+ Implanted:Qty: 1 on 04/26/2022 by Mariano Guzmán MD at [facility] Left: Shoulder [employer] 12/26/2026 509-01-432 / / [id number] Humeral Stem Reverse Size 8mm X 108mm Implanted:Qty: 1 on 04/26/2022 by Mariano Guzmán MD at [facility] Left: Shoulder [employer] 10/05/2027 530-08-108 / / [id number] Rstrc Cmnt Cl Ct 10mm Implanted:Qty: 1 on 04/26/2022 by Mariano Guzmán MD at [facility] Left: Shoulder [employer] 07/03/2024 415-00-100 / / [id number] Rsp Humeral Socket Insert 32mm Semi-Constrain ed Implanted:Qty: 1 on 06/14/2022 by Mariano Guzmán MD at [facility] Left: Shoulder [employer] 08/12/2026 509-01-032 / / [id number] Spcr Hum Djo Srg Rsp +8mm Mnblck Strl Lf Implanted:Qty: 1 on 06/14/2022 by Mariano Guzmán MD at [facility] Left: Shoulder [employer] 04/12/2028 510-08-000 / / [id number] Head Glnd 32mm Rsp Ntrl Shldr Rtn Screw Implanted:Qty: 1 on 06/14/2022 by Mariano Guzmán MD at [facility] Left: Shoulder [employer] 05/17/2028 508-32-101 / / [id number] Screws Implanted:Qty: 1 on 08/10/2023 by Jace Muller MD at [facility] Left: Ankle AR-8935-32 / / Description:3.0-4.0 ARTHREX VENDOR TRAY Screw Implanted:Qty: 1 on 08/10/2023 by Jace Muller MD at [facility] Left: Ankle Arthrex Inc AR-8940-34 / / Description:3.0-4.0 ARTHREX TRAY Kit Bngf 3cc Aug Inj Implanted:Qty: 1 on 01/14/2024 by Jace Muller MD at [facility] Left: Ankle BroadLight 08/30/2026 [id number] / / [id number] Graft Bone Ignite 2 Mini 4cc Pwr Mx - [id number] Implanted:Qty: 1 on 01/14/2024 by Jace Muller MD at [facility] Left: Ankle Yandex Inc 07/19/2028 [id number] / [id number] / Allosync Pure 5cc Implanted:Qty: 1 on 01/14/2024 by Jace Muller MD at [facility] Left: Ankle Arthrex Inc 08/20/2028 ABS-2010-01 / / [id number] 7.0 Screw 55 Implanted:Qty: 1 on 01/14/2024 by Jace Muller MD at [facility] Left: Ankle Arthrex Inc AR-8770-5H / / 7.0 Screw 40 Implanted:Qty: 1 on 01/14/2024 by Jace Muller MD at [facility] Left: Ankle Arthrex Inc AR-8770-40H / / Explanted Type Area Front Desk Receptionist Device Identifier Shelf Expiration Date Model / Serial / Lot Cortical Screw 3.5mm Explanted:Qty: 1 on 10/25/2020 at [facility] Right: Ankle Wan [employer] 00-4835-036 -01 / / 4.0mm Screw Explanted:Qty: 1 on 08/10/2023 at [facility] Left: Ankle AR-8940-32 / / Screw 3mm 20mm T10 Ft Slf-Tap Lck Strdr Explanted:Qty: 1 on 08/10/2023 by Felipe Bourne MD at [facility] Left: Ankle Arthrex Inc AR-8933L-20 / / Screw 3mm 18mm Va Slf-Tap Sld Lck Ankl Explanted:Qty: 1 on 08/10/2023 by Felipe Bourne MD at [facility] Left: Ankle Arthrex Inc AR-8933V-18 / / Wire K .062in 6in Fx 2 Troc Explanted:Qty: 2 on 08/10/2023 at [facility] Left: Ankle [employer] [id number] / / Screw 3.5mm 28mm T15 Ft Slf-Tap Sld Hxlb Implanted:Qty: 1 on 08/10/2023 by Jace Muller MD at [facility] Explanted:Qty: 1 on 01/14/2024 by Jace Muller MD at [facility] Left: Ankle Arthrex Inc AR-8935CL-2 8 / / Screw 3.5mm 26mm T15 Ft Slf-Tap Sld Hxlb Implanted:Qty: 1 on 08/10/2023 by Jace Muller MD at [facility] Explanted:Qty: 1 on 01/14/2024 by Jace Muller MD at [facility] Left: Ankle Arthrex Inc AR-8935CL-2 6 / / Plate Calc 7.5mm Stp Bone Implanted:Qty: 1 on 08/10/2023 by Jace Muller MD at [facility] Explanted:Qty: 1 on 01/14/2024 by Jace Muller MD at [facility] Left: Ankle Arthrex Inc AR-8949-075 / / 3.5mm Locking Screw Implanted:Qty: 1 on 08/10/2023 by Jace Muller MD at [facility] Explanted:Qty: 1 on 01/14/2024 by Jace Muller MD at [facility] Left: Ankle AR-8935CL-2 4 / / Description:3.0-4.0 ARTHREX VENDOR TRAY Screw 3mm 16mm Va Slf-Tap Sld Lck Ankl Implanted:Qty: 1 on 08/10/2023 by Felipe Bourne MD at [facility] Explanted:Qty: 1 on 01/14/2024 by Jace Muller MD at [facility] Left: Ankle Arthrex Inc AR-8933V-16 / / Screw 3mm 20mm Va Slf-Tap Sld Lck Ankl Implanted:Qty: 1 on 08/10/2023 by Felipe Bourne MD at [facility] Explanted:Qty: 1 on 01/14/2024 by Jace Muller MD at [facility] Left: Ankle Arthrex Inc AR-8933V-20 / / Procedures Procedure Name Priority Date/Time Associated Diagnosis Comments XR LUMBAR SPINE 2 OR 3VW Routine 05/28/2025 1:05 PM CDT Lumbar pain COMPREHENSIVE METABOLIC PANEL Routine 09/17/2024 12:09 PM 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.] 3VW Exam Date: 05/28/2025 1:05 PM Location: [facility] Indication: M54.50: Lumbar pain Findings/impression: The [...] (ABNORMAL) COMPREHENSIVE METABOLIC PANEL (09/17/2024 12:09 PM 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) BUN 17 7 - 26 mg/dL 09/17/2024 1:09 PM 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 [facility] Creatinine 1.03(H) 0.56 - 0.96 mg/dL 09/17/2024 1:09 PM [facility] Sodium 139 136 - 145 mmol/L 09/17/2024 1:09 PM [facility] Potassium 3.9 3.5 - 4.5 mmol/L 09/17/2024 1:09 PM [facility] Chloride 103 98 - 107 mmol/L 09/17/2024 1:09 PM [facility] CO2 24 22 - 29 mmol/L 09/17/2024 1:09 PM [facility] Glucose 98 70 - 99 mg/dL 09/17/2024 1:09 PM [facility] Calcium 9.4 8.4 - 10.2 mg/dL 09/17/2024 1:09 PM [facility] Protein Total 8.2 6.0 - 8.3 g/dL 09/17/2024 1:09 PM [facility] Albumin 4.1 3.4 - 5.0 g/dL 09/17/2024 1:09 PM [facility] Bilirubin Total 0.4 0.2 - 1.2 mg/dL 09/17/2024 1:09 PM [facility] Alkaline Phosphatase 82 40 - 150 U/L 09/17/2024 1:09 PM [facility] ALT 30 5 - 55 U/L 09/17/2024 1:09 PM [facility] AST 32 5 - 34 U/L 09/17/2024 1:09 PM [facility] Anion Gap 12 6 - 16 09/17/2024 1:09 PM [facility] BUN/Creatinine Ratio 17 7 - 23 09/17/2024 1:09 PM [facility] Osmolality Calculated 290 275 - 295 mOsm/kg 09/17/2024 1:09 PM [facility] Albumin/Globulin Ratio 1.0(L) 1.1 - 2.3 09/17/2024 1:09 PM [facility] eGFR by CKD-EPI 64(L) >=90 mL/min/1.7 3 m2 09/17/2024 1:09 PM [facility] Blood BLOOD SPECIMEN / Unknown Lab Venipuncture / Unknown 09/17/2024 12:09 PM [facility] 09/17/2024 12:29 PM 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 Ev Lowery MD LAB - CHEMISTRY ORDERABLES Fi nal Result Performing Organization Address [facility]/ZIP Co de Phone Number [facility] [address] [place] [address], [facility] [phone] * HIV-1 HIV-2 ANTIBODY + HIV P24 AG PANEL (10/12/2017 4:43 AM 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) [facility] HIV1/2 Ab + P24 Ag Non Reactive Non Reactive 10/12/2017 11:04 AM 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 [facility] Blood BLOOD SPECIMEN / Unknown Venipuncture / Unknown 10/12/2017 4:43 AM 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 10/12/2017 4:57 AM 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 Narrative [facility] - 10/12/2017 11:04 AM 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 No Laboratory evidence of HIV infection. Result [facility] Singh Moyer MD LAB - CHEMISTRY ORDERAB LES Final Result Performing Organization Address [facility] Co de Phone Number [facility] [address] [place] [address] * HEPATITIS C ANTIBODY (12/27/2015 5:08 PM CDT) [facility] Hepatitis C Antibody Non-react [facility][1] Comment: Hepatitis C Antibody screen indicates no [...] ORDERABLES Fi nal Result Performing Organization Address [facility]/ZIP Co de Phone Number [facility] [address] [place] [address], [facility] [phone] from Last 3 Months or Most Recently Relevant to Health Maintenance [facility] Advance Directives * Full Code (Latest Code [...] 8:14 PM 04/27/2022 6:26 PM Care Teams Director Of Market Research Relationship Specialty Start Date End Date Key Tolliver MD [address] [place], [place] [phone] PCP - General 10/22/18 Pablo Liriano MD [address] [place] [address] [phone] Orthopedic Surgery 05/22/19 Evan Willis MD [address] [place] [address] [phone] Medical Oncologist Medical Oncology 11/02/21 Charles Kingston MD [facility] [address] [address] Substitute Bus Driver Cardiology 11/03/21
--- OUTSIDE RECORDS SUMMARY | 2025-06-17 17:42 | XMS_ITS | Clinical Summary ---
Author Organization [facility] Address [address] [place] [address] Phone Care Team Providers Care Oil Well Fishing Tool Operator Name Role Phone LEILANI MABRY, NILESH Primary Care Provider [phone] Reason for Visit and Chief Complaint The Chief Complaint is: FU MEDS ~ADDED TYLENOL 500, TAKING #2 BID Problems Includes: Problems addressed during this encounter and other active Problems Current Visit Onset Date Resolved Date Provider Charla jones Status Chronic Pain Syndrome 07/31/2023 HARLEEN COULTER PMHNP Active Last Documented On 3 1:32PM ; [facility] Plan of Treatment Education and Decision Aids were provided during visit for: Pill Count: two HYSINGLA Last Documented On 4 11:00AM ; [facility] Pill Count: HYDROCODONE ~out of medication Last Documented On 4 11:43AM ; [facility] Assessments Includes: Assessments from this encounter Findings - Systemic lupus erythematosus [M32.9 - Systemic lupus erythematosus, unspecified] - Last Documented On 12/17/2023 1:18PM ; [facility] - Sacroiliitis [M46.1 - Sacroiliitis, not elsewhere classified] - Last Documented On 12/17/2023 1:18PM ; [facility] - Lumbar spondylosis with radiculopathy [M47.26 - Other spondylosis with radiculopathy, lumbar region] - Last Documented On 12/17/2023 1:18PM ; [facility] - Lumbar stenosis with neurogenic claudication [M48.062 - Spinal stenosis, lumbar region with neurogenic claudication] - Last Documented On 12/17/2023 1:18PM ; [facility] - Fibromyalgia [M79.7 - Fibromyalgia] - Last Documented On 12/17/2023 1:18PM ; [facility] - Chronic pain syndrome [G89.4 - Chronic pain syndrome] - Last Documented On 12/17/2023 1:18PM ; [facility] - intermediate use of opiate analgesic [Z79.891 - terminal gauger supervisor (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) use of opiate analgesic] - Last Documented On 12/17/2023 1:18PM ; [facility] Instructions Includes: Instructions from this encounter Education and Decision Aids were provided during visit for: Pill Count: two HYSINGLA Last Documented On 4 11:00AM ; [facility] Pill Count: HYDROCODONE ~out of medication Last Documented On 4 11:43AM ; [facility] Medical Equipment - Implanted Devices Includes: [...] 11:11AM By FELISHA SENIOR ; [facility] New / Renewed during this visit FELISHA SENIOR on 12/17/2023 Hysingla ER 20 MG Oral Table t ER 24 Hour Abuse-Deterrent Provider: FELISHA SENIOR 30 day supply: 30 tablet, 0 refills Diagnosis: Spinal stenosis, lumbar region with neurogenic claudication 1 tablet q 24 hours [facility] [address] [facility], [phone] - Last Documented On 4 2:27PM By FELISHA SENIOR ; [facility] Current Medications (continue as prescribed) Narcan 4 MG/0.1ML Nasal Liquid 01/21/2024 [facility] Diagnosis: Spinal stenosis, lumbar region with neurogenic claudication as directed Last Documented On 4 2:31PM [facility] Hysingla ER 20 MG Oral Table t ER 24 Hour Abuse-Deterrent 01/21/2024 Provider[facility] Diagnosis: Spinal stenosis, lumbar region with neurogenic claudication 1 tablet q 24 hours Last Documented On 4 2:31PM By [facility] oxyCODONE-Acetaminophen 10-325 MG Oral Tablet 01/15/20 Provider: Diagnosis: Last Documented On 02/01/2024 8:52AM By Lilli MAK ; [facility] traZODone HCl 100 MG Oral Tablet 11/02/2023 Provider : Diagnosis: Last Documented On 4 10:13AM By Lilli MAK ; [facility] Cyclobenzaprine HCl 10 MG Oral Tablet 10/29/2023 Pro vider: REFUGIO AMARO MD Diagnosis: Last Documented On 4 10:15AM By Lilli MAK ; [facility] Ketoconazole 2% External Cream 10/29/2023 Provider: REFUGIO AMARO MD Diagnosis: Last Documented On 4 10:15AM By Lilli MAK ; [facility] hydrOXYzine HCl 50 MG Oral Tablet 10/26/2023 Provide r: Diagnosis: Last Documented On 4 10:16AM By Lilli MAK ; [facility] Anastrozole 1 MG Oral Tablet 10/24/2023 Provider: Diagnosis: Last Documented On 4 10:16AM By Lilli MAK ; [facility] FeroSul 325 (65 Fe) MG Oral Tablet 10/24/2023 Provid er: Diagnosis: Last Documented On 4 10:18AM By Lilli MAK ; [facility] Venlafaxine HCl ER 225 MG Oral Tablet Extended R elease 24 Hour 10/23/2023 Provider: Diagnosis: Last Documented On 4 10:18AM By Lilli MAK ; [facility] Pregabalin 200 MG Oral Capsule 10/08/2023 Provider: FELISHA WU Diagnosis: Fibromyalgia TAKE 1 CAPSULE BY MOUTH TWICE DAILY Last Documented On 4 1:51PM By FELISHA SENIOR ; [facility] Omeprazole 40 MG Oral Capsule Delayed Release 08/11/20 Provider: Diagnosis: Last Documented On 4 10:17AM By Lilli MAK ; [facility] Lisinopril 40 MG Oral Tablet 04/11/2023 Provider: REFUGIO AMARO MD Diagnosis: Last Documented On 3 10:40AM By Lilli MAK ; [facility] Famotidine 20 MG Oral Tablet 01/23/2023 Provider: Diagnosis: Last Documented On 02/05/2023 4:01PM By Lilli MAK ; [facility] ARIPiprazole 2 MG Oral Tablet 01/09/2023 Provider: Diagnosis: Last Documented On 02/05/2023 4:04PM By Lilli MAK ; [facility] busPIRone HCl 15 MG Oral Tablet 09/20/2022 Provider: Diagnosis: Last Documented On 02/05/2023 4:05PM By Lilli MAK ; [facility] NIFEdipine ER 30 MG Oral Tab let Extended Release 24 Hour 05/04/2022 Provider: REFUGIO AMARO MD Diagnosis: Last Documented On 05/09/2022 3:25PM By Lilli MAK ; [facility] Metoprolol Succinate ER 200M G Oral Tablet Extended Release 24 Hour 10/03/2018 Provider: Diagnosis: Last Documented On 9 3:00PM By VENKAT MAK ; [facility] Medications Administered Includes: Administered Medications from this encounter No Administered Medications Recorded Vital Signs Includes: Vital Signs from this encounter Vital Name 12/17/2023 10:57A Temp-Oral (F) 98.6 Height (in) 65 Weight (lb) 215 Body Mass Index 35.8 Body Surface Area 2 Pain Level 8 Last Documented: On 12/17/2023 10:59A M ; [facility] Results Includes: Results [...] spinal cord summation trial using 28 contact [employer] percutaneous leads. His replacement. Guidance. Patient tolerated the procedure well. Despite multiple efforts approved reprogramming, and a report back to the [employer] b2b sales representative that she was getting approximate [...] psychological evaluation and meeting with the [employer] b2b sales representative. Psychological evaluation revealed no barriers [...] need a refill of hydrocodone today. [place] OVEN PRESS TENDER appropriate. Last UDS appropriate, this will be [...] UDS appropriate. We will repeat this today. [facility] appropriate. She has exhibited no signs [...] allows her to maintain function levels. [place] OVEN PRESS TENDER is appropriate. UDS was appropriate Past note: [...] for visit: Provider: Privacy of provider's office. [address] [place] [id number] Patient: Patient personal setting Total time spent with patient via telecommunication minutes Social History Description Last Updated Tobacco non-user 11/07/2023 Last Documented On 4 10:56AM ; [facility] Alcohol 07/31/2023 Last Documented On 4 10:56AM ; [facility] Consuming 5 or more drinks per day None 07/31/2023 Last Documented On 4 10:56AM ; [facility] Current nonsmoker 07/31/2023 Last Documented On 4 10:56AM ; [facility] Drug use 07/31/2023 Last Documented On 4 10:56AM ; [facility] Lives with spouse 07/31/2023 Last Documented On 4 10:56AM ; [facility] Non-smoker 07/31/2023 Last Documented On 4 10:56AM ; [facility] Number of times used recreat ional drug/ prescription drug for nonmedical reason. None 07/31/2023 Last Documented On 4 10:56AM ; [facility] Smoking status : Never smoker 08/07/2019 Last Documented On 4 10:56AM ; [facility] Currently 10/03/2018 Last Documented On 4 10:56AM ; [facility] Procedures and Surgical History Includes: Procedures from this encounter Procedures Code Diagnosis Performing Provider Service L ocation Service Date use of tobacco assessment performed 1000F Last Documented On 4 10:59AM ; [facility] review of medications documented 1160F Last Documented On 4 10:59AM ; [facility] Clinical summary provided to patient via portal/mailed. ~ Patient understands and agrees with treatment plan. Questions answered Last Documented On 4 11:43AM ; [facility] Medical History Includes: Medical History addressed during this encounter Description Last Updated Reviewed and Unchanged 10/10/2019 Last Documented On 4 10:56AM ; [facility] Currently wearing eyeglasses 10/03/2018 Last Documented On 4 10:56AM ; [facility] Previously 3 time(s) 10/03/2018 Last Documented On 4 10:56AM ; [facility] History of arthritis 10/03/2018 Last Documented On 4 10:56AM ; [facility] History of cancer 10/03/2018 Last Documented On 4 10:56AM ; [facility] History of hypertension 10/03/2018 Last Documented On 4 10:56AM ; [facility] Family History Includes: Family History addressed [...] Documented On 4 8:53AM ; [facility] Encounters Encounter Provider Location Date Check-In Time Check-Out Time Diagnosis TELE[employer] FELISHA SENIOR [facility] 12/17/19 24 10:55AM 11:15AM Systemic Lupus Erythematosus,Chr onic Pain Syndrome,Sacroili itis,Fibromyalgia ,Spinal Stenosis Lumbar with Neurogenic Claudication,Spon dylosis with Radiculopathy Lumbar Region,Electronic Court Recorder Use of Opiate Analgesic Insurance Includes: Active Insurance Policies Plan Name Member ID Group # Subscriber Relationship Effect nieves Dates 1 - [facility] [id number] KATHY MCNULTY Self Clinical Notes Includes: Clinical Notes from this encounter * Progress note Date Encounter Last Documented by 12/17/2023 TELEHEALTH Last documented on 12/17/2023; 1:18 PM, FELISHA SENIOR; [facility] Active Problems & [...] and a report back to the [employer] b2b sales representative that she was getting approximate [...] psychological evaluation and meeting with the [employer] b2b sales representative. Psychological evaluation revealed no barriers [...] will need a refill of hydrocodone today. [place] OVEN PRESS TENDER appropriate. Last UDS appropriate, this will be [...] UDS appropriate. We will repeat this today. [facility] appropriate. She has exhibited no signs [...] allows her to maintain function levels. [place] OVEN PRESS TENDER is appropriate. UDS was appropriate Past note: [...] [G89.4 - Chronic pain syndrome] - terminal gauger supervisor use of opiate analgesic [Z79.891 - intermediate (current) use of opiate analgesic] Therapy - [...] for visit: Provider: Privacy of provider's office. [address] [place] [address]., [place] [address] Patient: Patient personal setting Total time spent with patient via telecommunication minutes
--- OUTSIDE RECORDS SUMMARY | 2025-06-17 17:42 | XMS_ITS | Clinical Summary ---
Author Organization [facility] Address [address] [place] [address] Phone Care Team Providers Care Deputy Fire Chief Name Role Phone Key Tolliver MD Primary [...] Insurance MEDICAID [employer] Care Teams Deputy Fire Chief Relationship Specialty Start Date End Date Key Tolliver MD [address] [place] [address] PCP - General Internal Medicine 03/14/20
--- OUTSIDE RECORDS SUMMARY | 2025-06-17 17:42 | XMS_ITS | Clinical Summary ---
Author Organization [facility] Address [address] [place], [place] [address] [address] Care Team Providers Care Fruit And Vegetable Factory Worker Name Role Phone Key Tolliver MD Primary Care Provider [phone] Allergies Active Allergy Reactions Criticality Noted Date [...] Tablet 4 Active naloxone (NARCAN) 4 mg/spray [place], Non-Aerosol EMERGENCY USE ONLY: Administer 1 [...] Department Care Team Description 06/17/2025 Orders Only [facility] Oncology and Hematology - [address] [place] [address] Evan Willis MD 05/06/2025 External Device Data ST[facility] ABSTRACTION Provider, Abstract 04/22/2025 External Device Data [place] ABSTRACTION Provider, Abstract 04/14/2025 Telephone [facility] Plastic Surgery at the [facility] [address] [facility] [address] [place] [address] Rodolfo Truong MD wants a referral 04/10/2025 Orders Only [facility] Oncology and Hematology - [address] [place] [address] Evan Willis MD Malignant neoplasm of upper-outer [...] on file Legal Sex Female 1:52 PM IRON PLASTIC BULLET MAKER Gender Identity Not on file Sexual Orientation Not on file Last Filed Vital Signs Vital Sign Reading Time Taken Comments Blood Pressure 153/86 08/11/2024 12:55 PM IRON PLASTIC BULLET MAKER Pulse 88 07/28/2024 12:10 PM IRON PLASTIC BULLET MAKER Temperature 36.3 C (97.4 F) 07/28/2024 12:10 PM IRON PLASTIC BULLET MAKER Respiratory Rate 20 07/28/2024 12:10 PM IRON PLASTIC BULLET MAKER Oxygen Saturation 94% 07/28/2024 12:10 PM IRON PLASTIC BULLET MAKER Inhaled Oxygen Concentration - - Weight 104.8 kg (231 lb) 08/11/2024 12:55 PM IRON PLASTIC BULLET MAKER Height 165.1 cm (5' 5) 08/11/2024 12:55 PM IRON PLASTIC BULLET MAKER Body Mass Index 38.44 08/11/2024 12:55 PM IRON PLASTIC BULLET MAKER Plan of Treatment Upcoming Encounters Date Type Department Care Team (Late st Contact Info) Description 06/25/2025 2:00 PM CDT Office Visit [facility] Oncology and Hematology - [address] [place] [address] Evan Willis MD [address] [facility] [address] [place] [address] 08/17/2025 1:00 PM IRON PLASTIC BULLET MAKER Office Visit [facility] Plastic Surgery at the [facility] [address] [place] [address] Rodolfo Truong MD [address] [facility] [address] [place] [address] Health Maintenance Due Date Last Done Comments [...] 09/11/2027 09/11/2017 Medical Devices Implanted Type Area Research Environmental Engineer Device Identifier Shelf Expiration Date Model / Serial / Lot Coat Fitter Clip Surgiclip Ii Yordan 9.75in [id number] - [id number] Implanted:Qty: 1 on 10/23/2019 by Rodolfo Truong MD at [facility] Clip N/A: Breast [employer] - COVIDIEN [id number] 06/02/2024 [id number] / / [id number] Natrelle Inspira Softtouch Breast Implant Implanted:Qty: 1 on 07/28/2024 by Rodolfo Truong MD at [facility] Other Right: Breast [employer]- MEDICAL [id number] 10/08/2028 SSX-750 / [id number] / Natrelle Inspira Softtouch Breast Implant Implanted:Qty: 1 on 07/28/2024 by Rodolfo Truong MD at [facility] Other Left: Breast [employer]- MEDICAL [id number] 07/16/2026 SSF-745 / [id number] / Description:Both Allergan Im plants Requisition,[id number]. Knee Replacement-Yves Plate/ Screws Of Neck Left Shoulder Replacement Explanted Type Area Research Environmental Engineer Device Identifier Shelf Expiration Date Model / Serial / Lot Tissue Information Assoc W/ Suture Tabs Implanted:Qty: 1 on 10/23/2019 by Rodolfo Truong MD at [facility] Explanted:Qty: 1 on 04/06/2020 at [facility] Mammary Left: Breast [employer]- MEDICAL [id number] 07/07/2024 133S-MX-1 3-T / [id number] / Description:Filled with 120m l 0.9% NaCl Both Allergan tissue expanders are processed on requisition [id number]. Tissue Information Assoc With Suture Tabs Implanted:Qty: 1 on 10/23/2019 by Rodolfo Truong MD at [facility] Explanted:Qty: 1 on 04/06/2020 at [facility] Mammary Right: Breast [employer]- MEDICAL 04/25/2024 133S-MX-1 3-T / [id number] / Description:Requisition # [id number] Natrelle Inspira Softtouch Breast Implant 450cc Implanted:Qty: 1 on 04/06/2020 by Rodolfo Truong MD at [facility] Explanted:Qty: 1 on 08/16/2020 at [facility] Mammary Left: Breast [employer]- MEDICAL [id number] 08/17/2024 SSF-450 / [id number] / Description:Both Allergan Br east Implants are processed on requisition [id number]. Natrelle Inspira Softtouch Breast Implant 525cc Implanted:Qty: 1 on 04/06/2020 by Rodolfo Truong MD at [facility] Explanted:Qty: 1 on 08/16/2020 at [facility] Mammary Right: Breast [employer]- MEDICAL [id number] 12/29/2023 SSX-525 / [id number] / Description:Requisition # [id number]. Natrelle Inspira Soft Touch Ssf-560 Implanted:Qty: 1 on 08/16/2020 at [facility] Explanted:Qty: 1 on 02/22/2023 by Rodolfo Truong MD at [facility] Mammary Right: Breast [employer]- MEDICAL [id number] 06/21/2024 SSF-560 / [id number] / Description:Requisition # [id number] left breast Imp Breast Inspira Ssx 700ml Ssx-700 - [id number] Explanted:Qty: 1 on 02/22/2023 at [facility] Right: Breast [employer]- MEDICAL 01/04/2026 SSX-700 / [id number] / Natrelle Inspira Softtouch Ssx-615 Implanted:Qty: 1 on 08/16/2020 at [facility] Explanted:Qty: 1 on 02/22/2023 by Rodolfo Truong MD at [facility] Right: Breast [employer]- MEDICAL [id number] 10/15/2024 SSX-615 / [id number] / Description:both Allergan re placement breast implants are processed on requisition [id number]. Imp Breast Inspira Ssf 650ml Ssf-650 - [id number] Implanted:Qty: 1 on 02/22/2023 by Rodolfo Truong MD at [facility] Explanted:Qty: 1 on 07/28/2024 by Rodolfo Truong MD at [facility] Mammary Left: Breast [employer]- MEDICAL 09/11/2027 SSF-650 / [id number] / Imp Breast Inspira Ssx 615ml Ssx-615 - [id number] Implanted:Qty: 1 on 02/22/2023 by Rodolfo Truong MD at [facility] Explanted:Qty: 1 on 07/28/2024 by Rodolfo Truong MD at [facility] Right: Breast [employer]- MEDICAL 10/15/2024 SSX-615 / [id number] / Description:Original implant placed on 08/16/2020 was [...] [facility] RX [employer] Medicaid RX [employer] [facility] [employer] Commercial GENERIC PAYOR MEDICAID Advance Directives For more information, please contact: [phone] * Full Code (Latest Code Status on [...] 8:44 AM 10/23/2019 2:10 PM Care Teams Fruit And Vegetable Factory Worker Relationship Specialty Start Date End Date Key Tolliver MD [address] [place] [address] PCP - General Internal Medicine 11/05/18
--- OUTSIDE RECORDS SUMMARY | 2025-06-17 17:43 | XMS_ITS | Encounter Summary ---
Author Organization [facility] Address [address] [place], [place] [id number] Care Team Providers Care Chemist Biological Name Role Phone Key Tolliver MD Primary Care Provider Reason for Visit * Reason Onset Date Comments Test Results 06/09/2025 Results MRI Brai n and EEG Encounter Details Date Type Department Care Team ([facility] Contact Info) Description 06/09/2025 Results Follow-Up [facility] Neurology [address] [place] [phone] Peggy Reid MA EEG Social History [...] on file Legal Sex Female 6: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
--- OUTSIDE RECORDS SUMMARY | 2025-06-17 17:43 | XMS_ITS | Clinical Summary ---
Author Organization [facility] Address [address] [place] [address] Care Team Providers Care Paint Mixer Name Role Phone Key Tolliver MD Primary [...] CDT - 06/11/2025 4:42 PM CDT Emergency [facility] Emergency Department [address] [place] [address] Fall, 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Primary Dx); Acute right-sided low back pain with right-sided sciatica; Sprain of left ankle, unspecified ligament, initial encounter Discharge Disposition: Discharge to home or self care 06/09/2025 Results Follow-Up [facility] Neurology [address] [place] [phone] Peggy Reid MA EEG 06/08/2025 2:28 PM CDT - 06/08/2025 11:59 PM CDT Hospital Encounter [facility] MRI [address] [place] [address] Altered mental status, unspecified altered mental status type Discharge Disposition: Discharge to home or self care 06/08/2025 1:13 PM CDT - 06/08/2025 11:59 PM CDT Hospital Encounter [facility] Cardiac Testing [address] [place] [address] Altered mental status, unspecified altered mental status type Discharge Disposition: Discharge to home or self care 05/27/2025 Telephone [facility] Neurology [address] [place] [phone] Linden Walter Si, MD Scheduling Appointments (CALL SCHEDULING ) 05/26/2025 1:30 PM CDT Office Visit [facility] Neurology [address] [place] [phone] Linden Walter Si, MD Altered mental status, unspecified altered mental status type (Primary Dx); Stuttering 05/14/2025 2:33 PM CDT - 05/14/2025 11:59 PM CDT Hospital Encounter [facility] [address] [place] [phone] Discharge Disposition: Discharge to home or self care 05/14/2025 2:33 PM CDT - 05/14/2025 11:59 PM CDT Hospital Encounter [facility] [address] [place] [phone] Discharge Disposition: Discharge to home or self care 05/14/2025 2:00 PM CDT Office Visit [facility] Orthopedics and Sports Medicine at [address] [address] Jace Muller MD Pain in left foot (Primary Dx); Peroneal tendonitis of left lower leg 04/13/2025 12:00 PM CDT Office Visit [facility] Cardiology [address] [place] [address] Marialuisa Anglni MD Essential hypertension (Primary Dx); BAEZ (dyspnea on exertion); Hypercholesteremia 03/26/2025 Telephone [facility] Neurology [address] [place] [address] Provider, MD Viktor Scheduling Appointments [...] on file Legal Sex Female 6:25 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 WILY: WILY Report ID: [id number] Reading Location: [id number] Procedure Note Naveen Dash MD - 06/11/2025 [...] Naveen Dash M.D. WILY: WILY Report ID: [id number] Reading Location: [place] [address] Rashawn Cloud NP [facility] [place] [facility] CT PROCEDURES Final Result * XR Ankle [...] Jose Chan M.D. KR: JAKE Report ID: [id number] Reading Location: [id number] Procedure Note Jose Chan MD - 06/11/2025 [...] Jose Chan M.D. KR: JAKE Report ID: [id number] Reading Location: [id number] us Rashawn Cloud HOSPICE EXECUTIVE DIRECTOR IMG XR PROCEDURES Final Result * MRI [...] by Rodolfo Tapia M.D. T: Report ID: [id number] Reading Location: [id number] Procedure Note Rodolfo Tapia, - 06/08/2025 EXAM [...] by Rodolfo Tapia M.D. T: Report ID: [id number] Reading Location: [place] [address] Linden Walter MD IMG MRI PROCEDURES Final [...] agrees with it. ACC# Date Time Exam [id number] May 07, 2013 13:59:00 [facility] [id number] Bilateral Tomosynthesis Technologist(s): Ashley Batista; ; [id number] May 07, 2013 13:59:00 [facility] [id number] Diag Mammogram Bilateral Technologist(s): Ashley Batista; ; [id number] May 07, 2013 14:24:00 [facility] [id number] Sono Breast (Unilateral) L EXAMINATION: BILATERAL FULL [...] diagnostic mammogram and accompanying ultrasound performed at [facility] on 04/28/2013. BREAST PARENCHYMAL COMPOSITION: [...] been scheduled to return to the [facility] for an ultrasound-guided core needle [...] agrees with it. ACC# Date Time Exam [id number] May 07, 2013 13:59:00 [facility] [id number] Bilateral Tomosynthesis Technologist(s): Ashley Batista; ; [id number] May 07, 2013 13:59:00 [facility] [id number] Diag Mammogram Bilateral Technologist(s): Ashley Batista; ; [id number] May 07, 2013 14:24:00 [facility] [id number] Sono Breast (Unilateral) L EXAMINATION: BILATERAL FULL [...] diagnostic mammogram and accompanying ultrasound performed at [facility] [place] on 04/28/2013. BREAST PARENCHYMAL COMPOSITION: Heterogeneously dense, [...] been scheduled to return to the [facility] for an ultrasound-guided core needle [...] CDT PROCEDURE REPORT Patient: CHELA MCNULTY Account: [id number] Room No: 2619-01 : 1970 Patient Type: [...] Most Recently Relevant to Health Maintenance Insurance [facility] Care Teams Paint Mixer Relationship Specialty Start Date End Date Key Tolliver MD [address] [place] [id number] PCP - General Internal Medicine 12/08/24
--- OUTSIDE RECORDS SUMMARY | 2025-06-17 17:43 | XMS_ITS | Encounter Summary ---
Author Organization [facility] Address [address] [place] [address] Care Team Providers Care Cloth Pattern Maker Name Role Phone Key Tolliver MD Primary Care Provider [phone] Reason for Visit * Reason Comments Medication Refill Encounter Details Date Type Department Care Team ([facility] Contact Info) Description 05/11/2020 Refill [id number] [id number] [facility] [address] [place] [address] Rodolfo Truong MD [address] [facility] [address] [place] [address] Malignant neoplasm of upper-outer quadrant [...] on file Legal 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 No / Unsure 04/29/2020 10:13 AM CDT documented as of this encounter Plan of Treatment Upcoming Encounters Date Type Department Care Team ([facility] Contact Info) Description 06/25/2025 2:00 PM CDT Office Visit [facility] Oncology and Hematology - Teddy Emery Becerra [address] [place] [address] Evan Willis MD [address] [facility] [address] [place] [address] 08/17/2025 1:00 PM DRILLING AND PRODUCTION SUPERINTENDENT Office Visit [facility] Plastic Surgery at the [facility] [address] [place] [phone] Rodolfo Truong MD [address] [facility] [address] [place], [place] [phone] documented as of this encounter Visit Diagnoses Diagnosis Malignant neoplasm of upper-outer quadrant of left breast in female, estrogen receptor positive (CMS/HCC) documented in this encounter Care Teams Cloth Pattern Maker Relationship Specialty Start Date End Date Key Tolliver MD [address] [place] [address] PCP - General Internal Medicine 11/05/18 documented as of this encounter
--- OUTSIDE RECORDS SUMMARY | 2025-06-17 17:43 | XMS_ITS | Clinical Summary ---
Author Organization [facility] Address [address] [place] [address] Phone Care Team Providers Care Field Marketing Associate Name Role Phone NILESH DUKE MD Primary Care Provider [phone] Reason for Visit and Chief Complaint * PHONE CALL Problems Includes: Problems addressed during this encounter and other active Problems All Visits Onset Date Resolved Date Provider Condition S tatus Chronic Pain Syndrome 07/31/2023 NURY ECHAVARRIA PMHNP Active Last Documented On 3 1:32PM ; [facility] Plan of Treatment No Plan of [...] On 4 2:31PM By FELISHA WUBC ; [facility] Hysingla ER 20 MG Oral Table t ER 24 Hour Abuse-Deterrent 01/21/2024 Provider: FELISHA FREEMAN ANP-BC Diagnosis: Spinal stenosis, lumbar region with neurogenic claudication 1 tablet q 24 hours Last Documented On 4 2:31PM By FELISHA SENIOR ; [facility] oxyCODONE-Acetaminophen 10-325 MG Oral Tablet 01/15/20 24 Provider: Diagnosis: Last Documented On 02/01/2024 8:52AM By Lilli MAK ; [facility] traZODone HCl 100 MG Oral Tablet 11/02/2023 Provider : Diagnosis: Last Documented On 4 10:13AM By Lilli MAK ; [facility] Cyclobenzaprine HCl 10 MG Oral Tablet 10/29/2023 Pro vider: REFUGIO AMARO MD Diagnosis: Last Documented On 4 10:15AM By Lilli MAK ; [facility] Ketoconazole 2% External Cream 10/29/2023 Provider: REFUGIO AMARO MD Diagnosis: Last Documented On 4 10:15AM By Lilli MAK ; [facility] hydrOXYzine HCl 50 MG Oral Tablet 10/26/2023 Provide r: Diagnosis: Last Documented On 4 10:16AM By Lilli MAK ; [facility] Anastrozole 1 MG Oral Tablet 10/24/2023 Provider: Diagnosis: Last Documented On 4 10:16AM By Lilli MAK ; [facility] FeroSul 325 (65 Fe) MG Oral Tablet 10/24/2023 Provid er: Diagnosis: Last Documented On 4 10:18AM By Lilli MAK ; [facility] Venlafaxine HCl ER 225 MG Oral Tablet Extended R elease 24 Hour 10/23/2023 Provider: Diagnosis: Last Documented On 4 10:18AM By Lilli MAK ; [facility] Pregabalin 200 MG Oral Capsule 10/08/2023 Provider: FELISHA SENIOR Diagnosis: Fibromyalgia TAKE 1 CAPSULE BY MOUTH TWICE DAILY Last Documented On 4 1:51PM By FELISHA SENIOR ; [facility] Omeprazole 40 MG Oral Capsule Delayed Release 08/11/20 Provider: Diagnosis: Last Documented On 4 10:17AM By Lilli MAK ; [facility] Lisinopril 40 MG Oral Tablet 04/11/2023 Provider: REFUGIO AAMRO MD Diagnosis: Last Documented On 3 10:40AM By Lilli MAK ; [facility] Famotidine 20 MG Oral Tablet 01/23/2023 Provider: Diagnosis: Last Documented On 02/05/2023 4:01PM By Lilli MAK ; [facility] ARIPiprazole 2 MG Oral Tablet 01/09/2023 Provider: Diagnosis: Last Documented On 02/05/2023 4:04PM By Lilli MAK ; [facility] busPIRone HCl 15 MG Oral Tablet 09/20/2022 Provider: Diagnosis: Last Documented On 02/05/2023 4:05PM By Lilli MAK ; [facility] NIFEdipine ER 30 MG Oral Tab let Extended Release 24 Hour 05/04/2022 Provider: REFUGIO AMARO MD Diagnosis: Last Documented On 05/09/2022 3:25PM By Lilli MAK ; [facility] Metoprolol Succinate ER 200M G Oral Tablet Extended Release 24 Hour 10/03/2018 Provider: Diagnosis: Last Documented On 9 3:00PM By VENKAT MAK ; [facility] Medications Administered Includes: Administered Medications from this encounter No Administered Medications Recorded Results Includes: Results discussed during this encounter No Results Recorded For Specified Dates History of Present Illness Includes: History of Present Illness from this encounter No History of Present Illness Recorded Social History Description Last Updated Tobacco non-user 11/07/2023 Last Documented On 4 11:54AM ; [facility] Alcohol 07/31/2023 Last Documented On 4 11:54AM ; [facility] Consuming 5 or more drinks per day None 07/31/2023 Last Documented On 4 11:54AM ; [facility] Current nonsmoker 07/31/2023 Last Documented On 4 11:54AM ; [facility] Drug use 07/31/2023 Last Documented On 4 11:54AM ; [facility] Lives with spouse 07/31/2023 Last Documented On 4 11:54AM ; [facility] Non-smoker 07/31/2023 Last Documented On 4 11:54AM ; [facility] Number of times used recreat ional drug/ prescription drug for nonmedical reason. None 07/31/2023 Last Documented On 4 11:54AM ; [facility] Smoking status : Never smoker 08/07/2019 Last Documented On 4 11:54AM ; [facility] Currently 10/03/2018 Last Documented On 4 11:54AM ; [facility] Medical History Includes: Medical History addressed during this encounter Description Last Updated Reviewed and Unchanged 10/10/2019 Last Documented On 4 11:54AM ; [facility] Currently wearing eyeglasses 10/03/2018 Last Documented On 4 11:54AM ; [facility] Previously 3 time(s) 10/03/2018 Last Documented On 4 11:54AM ; [facility] History of arthritis 10/03/2018 Last Documented On 4 11:54AM ; [facility] History of cancer 10/03/2018 Last Documented On 4 11:54AM ; [facility] History of hypertension 10/03/2018 Last Documented On 4 11:54AM ; [facility] Family History Includes: Family History [...] Documented On 4 8:53AM ; [facility] Encounters Encounter Provider Location Date Check-In Time Check-Out Time Diagnosis * PHONE CALL FELISHA HERRERA-TAMIKO 12/21/2023 11:54AM 11:59PM Insurance Includes: Active Insurance Policies Plan Name Member ID Group # Subscriber Relationship Effect nieves Dates - [facility] [id number] KATHY Sanchez Clinical Notes Includes: Clinical Notes from this encounter * Progress note Date Encounter Last Documented by 12/21/2023 * PHONE CALL Last documented on 12/28/2023; 8:42 AM, FELISHA GIBSON ANP-; [facility] Active Problems & Conditions - Chronic Pain Syndrome Chief Complaint Phone Call - Chief Concern: reason for call:pt wanted to let you know she was given tramadol, i just picked it up but tramadol doesn't do anything for me, she just wanted you to be aware she was given this rx, michelle pt phone # for return call:[phone] date/initials:12/21/23, kms. Past Medical/Surgical History Reported: Medical: [...]
--- OUTSIDE RECORDS SUMMARY | 2025-06-17 17:43 | XMS_ITS | Encounter Summary ---
Author Organization [facility] Address [address] [place] [address] Care Team Providers Care Cloth Shader Name Role Phone Key Tolliver MD Primary Care Provider [phone] Reason for Visit * Reason Comments Medication Refill Encounter Details Date Type Department Care Team ([facility] Contact Info) Description 11/05/2019 Refill [facility] Plastic Surgery and Burn [address] [address] Rodolfo Truong MD [address] 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 [address] [place] [address] Evan Willis MD [address] [facility] [address] [place] [address] 08/17/2025 1:00 PM INSPECTOR SUBASSEMBLY Office Visit [facility] Plastic Surgery at the [facility] [address] [facility] [address] [address] [place] [address] Rodolfo Truong MD [address] [facility] [address] [place] [address] documented as of this encounter Visit Diagnoses Not on filedocumented in this encounter Care Teams Cloth Shader Relationship Specialty Start Date End Date Key Tolliver MD [address] [place] [address] PCP - General Internal Medicine 11/05/18 documented as of this encounter
--- OUTSIDE RECORDS SUMMARY | 2025-06-17 17:43 | XMS_ITS | Clinical Summary ---
Author Organization [facility] Address [address] [place] [address] Care Team Providers Care Surface Boss Name Role Phone Unavailable Primary Care Provider Unavailabl e Allergies Active Allergy Reactions Criticality Noted Date Comments Tape Rash Low 09/12/2016 Medications anastrozole 1 MG tablet TAKE 1 TABLET(1 MG) BY MOUTH DAILY 7 Active cholecalciferol (D3-50) 14061 units capsule Take 100,000 Units by mouth [...] A MEAL 8 Active multi vitamin/mineral s (VITAMINS/ENVIRONMENTAL RESOURCE SPECIALIST ALS) tablet Take 1 tablet by mouth. [...] Comments Blood Pressure 146/90 08/01/2018 1:02 PM HAND CUTTER Pulse 89 08/01/2018 1:02 PM HAND CUTTER Temperature 36.6 C (97.9 F) 08/01/2018 1:02 PM HAND CUTTER Respiratory Rate 20 08/01/2018 1:02 PM HAND CUTTER Oxygen Saturation 100% 08/01/2018 1:02 PM HAND CUTTER Inhaled Oxygen Concentration - - Weight 88 kg (194 lb) 08/01/2018 1:02 PM HAND CUTTER Height 167.6 cm (5' 6) 08/01/2018 1:02 PM HAND CUTTER Body Mass Index 31.31 08/01/2018 1:02 PM HAND CUTTER Plan of Treatment Health Maintenance Due Date [...] patient's age to complete this topic [place] [address] [place] [address]
--- OUTSIDE RECORDS SUMMARY | 2025-06-17 17:43 | XMS_ITS | Clinical Summary ---
Author Organization [facility] Address [address] [place] [address] Phone Care Team Providers Care Dispatcher Maintenance Name Role Phone LEILANI MABRY, NILESH Primary Care Provider [phone] Reason for Visit and Chief Complaint RX ISSUE/REFILL Problems Includes: Problems addressed during this encounter and other active Problems All Visits Onset Date Resolved Date Provider Condition S tatus Chronic Pain Syndrome 07/31/2023 NURY ECHAVARRIA PMHNP Active Last Documented On 3 1:32PM ; [facility] Plan of Treatment No Plan of Treatment [...] On 4 2:31PM By FELISHA HERRERA-BC ; [facility] Hysingla ER 20 MG Oral Table t ER 24 Hour Abuse-Deterrent 01/21/2024 Provider: FELISHA FREEMAN ANP-BC Diagnosis: Spinal stenosis, lumbar region with neurogenic claudication 1 tablet q 24 hours Last Documented On 4 2:31PM By FELISHA SENIOR ; [facility] oxyCODONE-Acetaminophen 10-325 MG Oral Tablet 05/14/20 24 Provider: Diagnosis: Last Documented On 02/01/2024 8:52AM By Lilli MAK ; [facility] traZODone HCl 100 MG Oral Tablet 11/02/2023 Provider : Diagnosis: Last Documented On 4 10:13AM By Lilli MAK ; [facility] Cyclobenzaprine HCl 10 MG Oral Tablet 10/29/2023 Pro vider: REFUGIO AMARO MD Diagnosis: Last Documented On 4 10:15AM By Lilli MAK ; [facility] Ketoconazole 2% External Cream 10/29/2023 Provider: REFUGIO AMARO MD Diagnosis: Last Documented On 4 10:15AM By Lilli MAK ; [facility] hydrOXYzine HCl 50 MG Oral Tablet 10/26/2023 Provide r: Diagnosis: Last Documented On 4 10:16AM By Lilli MAK ; [facility] Anastrozole 1 MG Oral Tablet 10/24/2023 Provider: Diagnosis: Last Documented On 4 10:16AM By Lilli MAK ; [facility] FeroSul 325 (65 Fe) MG Oral Tablet 10/24/2023 Provid er: Diagnosis: Last Documented On 4 10:18AM By Lilli MAK ; [facility] Venlafaxine HCl ER 225 MG Oral Tablet Extended R elease 24 Hour 10/23/2023 Provider: Diagnosis: Last Documented On 4 10:18AM By Lilli MAK ; [facility] Pregabalin 200 MG Oral Capsule 10/08/2023 Provider: FELISHA SENIOR Diagnosis: Fibromyalgia TAKE 1 CAPSULE BY MOUTH TWICE DAILY Last Documented On 4 1:51PM By FELISHA SENIOR ; [facility] Omeprazole 40 MG Oral Capsule Delayed Release 08/11/20 Provider: Diagnosis: Last Documented On 4 10:17AM By Lilli MAK ; [facility] Lisinopril 40 MG Oral Tablet 04/11/2023 Provider: REFUGIO AMARO MD Diagnosis: Last Documented On 3 10:40AM By Lilli MAK ; [facility] Famotidine 20 MG Oral Tablet 01/23/2023 Provider: Diagnosis: Last Documented On 02/05/2023 4:01PM By Lilli MAK ; [facility] ARIPiprazole 2 MG Oral Tablet 01/09/2023 Provider: Diagnosis: Last Documented On 02/05/2023 4:04PM By Lilli MAK ; [facility] busPIRone HCl 15 MG Oral Tablet 09/20/2022 Provider: Diagnosis: Last Documented On 02/05/2023 4:05PM By Lilli MAK ; [facility] NIFEdipine ER 30 MG Oral Tab let Extended Release 24 Hour 05/04/2022 Provider: REFUGIO AMARO MD Diagnosis: Last Documented On 05/09/2022 3:25PM By Lilli MAK ; [facility] Metoprolol Succinate ER 200M G Oral Tablet Extended Release 24 Hour 10/03/2018 Provider: Diagnosis: Last Documented On 9 3:00PM By VENKAT MAK ; [facility] Medications Administered Includes: Administered Medications from this encounter No Administered Medications Recorded Results Includes: Results discussed during this encounter No Results Recorded For Specified Dates History of Present Illness Includes: History of Present Illness from this encounter No History of Present Illness Recorded Social History Description Last Updated Tobacco non-user 11/07/2023 Last Documented On 4 1:35PM ; [facility] Alcohol 07/31/2023 Last Documented On 4 1:35PM ; [facility] Consuming 5 or more drinks per day None 07/31/2023 Last Documented On 4 1:35PM ; [facility] Current nonsmoker 07/31/2023 Last Documented On 4 1:35PM ; [facility] Drug use 07/31/2023 Last Documented On 4 1:35PM ; [facility] Lives with spouse 07/31/2023 Last Documented On 4 1:35PM ; [facility] Non-smoker 07/31/2023 Last Documented On 4 1:35PM ; [facility] Number of times used recreat ional drug/ prescription drug for nonmedical reason. None 07/31/2023 Last Documented On 4 1:35PM ; [facility] Smoking status : Never smoker 08/07/2019 Last Documented On 4 1:35PM ; [facility] Currently 10/03/2018 Last Documented On 4 1:35PM ; [facility] Medical History Includes: Medical History addressed during this encounter Description Last Updated Reviewed and Unchanged 10/10/2019 Last Documented On 4 1:35PM ; [facility] Currently wearing eyeglasses 10/03/2018 Last Documented On 4 1:35PM ; [facility] Previously 3 time(s) 10/03/2018 Last Documented On 4 1:35PM ; [facility] History of arthritis 10/03/2018 Last Documented On 4 1:35PM ; [facility] History of cancer 10/03/2018 Last Documented On 4 1:35PM ; [facility] History of hypertension 10/03/2018 Last Documented On 4 1:35PM ; [facility] Family History Includes: Family History [...] Active Last Documented On 4 8:53AM ; [facility] Encounters Encounter Provider Location Date Check-In Time Check-Out Time Diagnosis RX ISSUE/REFILL FELISHA HERRERA-TAMIKO 01/18/2024 1:35PM 11:59PM Insurance Includes: Active Insurance Policies Plan Name Member ID Group # Subscriber Relationship Effect nieves Dates 1 - [facility] [id number] KATHY Sanchez Clinical Notes Includes: Clinical Notes from this encounter * Progress note Date Encounter Last Documented by 01/18/2024 RX ISSUE/REFILL Last documented on 01/21/2024; 2:27 PM, FELISHAAdore GIBSON ANP-; [facility] Active Problems & Conditions [...]
--- OUTSIDE RECORDS SUMMARY | 2025-06-17 17:43 | XMS_ITS | Encounter Summary ---
Author Organization [facility] [employer] [facility] Address [address] [place] [address] Care Team Providers Care Escape Wheel Tooth Cutter Name Role Phone Key Tolliver MD Primary Care Provider [phone] Encounter Details Date Type Department Care Team ([facility] Contact Info) Description 06/17/2025 Orders Only [facility] Oncology and Hematology - [address] [place] [address] [place] [address] [place] [address] [address] [place] [address] Social History Tobacco Use Types [...] on file Legal Sex Female 1:52 PM MEDICAL WRITER Gender Identity Not on file Sexual Orientation Not on file documented as of this encounter Plan of Treatment Upcoming Encounters Date Type Department Care Team ([facility] Contact Info) Description 06/25/2025 2:00 PM CDT Office Visit [facility] Oncology and Hematology - [address] [place] [address] Evan Willis MD [address] [facility] [address] [place] [address] 08/17/2025 1:00 PM MEDICAL WRITER Office Visit [facility] Plastic Surgery at the [facility] [address] [facility] [place] [phone] Rodolfo Truong MD [address] [facility] [address] [place], [place] [phone] documented as of this encounter Procedures Procedure Name Priority Date/Time Associated Diagnosis Comments COMPREHENSIVE METABOLIC PANEL Routine 06/16/2025 7:55 AM CDT documented in this encounter Results * COMPREHENSIVE METABOLIC PANEL (06/16/2025 7:55 AM CDT) Blood Evan Willis MD CHEMISTRY ORDERABLES Final Resu lt documented in this encounter Visit Diagnoses Not on filedocumented in this encounter Care Teams Escape Wheel Tooth Cutter Relationship Specialty Start Date End Date Key Tolliver MD [address] [place] [phone] PCP - General Internal Medicine 11/05/18 documented as of this encounter
[2025-06-17] MEDS: HYDROmorphone HCL INJ (*CRX) 1 MG/ML SYR IV PUSH (18:34)
[2025-06-17] MEDS: dexAMETHasone SOD PHOS INJ 10 MG/ML 1 ML VIAL IV PUSH (18:35)
--- NOTE | 2025-06-17 20:08 | PC.NURSE ---
pt ambulated to the bathroom without assistance. pt states she is feeling better and would like to be discharged. EDP made aware
== END 2025-06-17 20:14 | disposition home or self-care (01) ==
PROVIDERS: Emergency Provider Student in an Organized Health Care Education/Training Program; PCP Internal Medicine Infectious Disease
DX: S39.92XA Unspecified injury of lower back, initial encounter (principal); R32 Unspecified urinary incontinence; J44.9 Chronic obstructive pulmonary disease, unspecified; I10 Essential (primary) hypertension; E03.9 Hypothyroidism, unspecified; D50.9 Iron deficiency anemia, unspecified; M32.9 Systemic lupus erythematosus, unspecified; K21.9 Gastro-esophageal reflux disease without esophagitis; F32.A Depression, unspecified; Z96.651 Presence of right artificial knee joint; Z85.3 Personal history of malignant neoplasm of breast; Z92.21 Personal history of antineoplastic chemotherapy; Z92.3 Personal history of irradiation; Z87.891 Personal history of nicotine dependence; Z90.13 Acquired absence of bilateral breasts and nipples; Z90.710 Acquired absence of both cervix and uterus; Z90.49 Acquired absence of other specified parts of digestive tract; W19.XXXA Unspecified fall, initial encounter
CPT/HCPCS: 36415; 72131; 80048; 81001; 85025; 85610; 85730; 96374; 96375; 99284; J1100; J1171; J1885; J2270

== ENCOUNTER 2025-07-29 17:33 | Emergency (ER) | payer OTHER, SELFPAY ==
[2025-07-29] VITALS (10 sets, daily range): BP systolic 109–169; BP diastolic 63–99; PULSE 86–97; RESP 16–20; TEMP 36.4–36.6; O2SAT 93–100
--- NOTE | ~2025-07-29 | CT_ITS ---
EXAMINATION: CT angiogram, abdomen and pelvis, GI bleed protocol: DATE: 07/29/2025. INDICATION: Possible rectal bleeding. TECHNIQUE: CT angiogram was performed with 100 cc of IV contrast were obtained. COMPARISON: CT abdomen dated 02/06/2025. FINDINGS: No acute findings at the lung bases. Moderate hepatomegaly with diffuse fatty liver. Normal size spleen. Gallbladder is absent. Pancreas shows no acute findings. Kidneys do not show calculi are obstruction. No evidence of active extravasation of arterial contrast within the bowel. Impaction of the rectosigmoid. No free fluid or free air. IMPRESSION: 1. No acute findings in the upper abdomen and pelvis. No active extravasation of arterial contrast within the bowel. 2. Fecal impaction of the sigmoid. 3. Hepatomegaly with fatty liver. Reviewed, dictated and finalized at location [facility] IMPRESSION: 1. No acute findings in the upper abdomen and pelvis. No active extravasation o f arterial contrast within the bowel. 2. Fecal impaction of the sigmoid. 3. Hepatomegaly with fatty liver.
--- OUTSIDE RECORDS SUMMARY | 2025-07-29 17:36 | XMS_ITS | Encounter Summary ---
Author Organization [facility] Address [address] [place] [address] Care Team Providers Care Manager Lsw Name Role Phone Key Tolliver MD Primary Care Provider Pablo Liriano MD Unavailable [phone] Evan Willis MD Unavailable [phone] Charles Kingston MD Unavailable Reason for Visit * Reason Onset Date Comments Question 02/20/2025 Encounter Details Date Type Department Care Team (Late st Contact Info) Description 02/20/2025 Telephone [facility] - Orthopedic Surgery [address] [address] Tamie Olivas, RN Question Social History Tobacco Use Types Packs/Day [...] on file Legal Sex Female 11:46 AM US CUSTOMS AND BORDER OFFICER Gender Identity Not on file Sexual [...] No 06/14/2022 12:15 AM Haylie Ngo RN documented as of this encounter Mental Status * Does person have difficulty concentrating/remembering/making decisions? Answer Entry Date Author No 06/14/2022 12:15 AM Haylie Ngo RN documented in this encounter Plan of Treatment Upcoming Encounters Date Type Department Care Team (Latest Contact Info) Description 09/09/2025 11:15 AM US CUSTOMS AND BORDER OFFICER Office Visit [facility] - Orthopedics [address] [facility] [place] [address] Yandel Petersen MD [address] [place] [address] 10/14/2025 7:20 AM US CUSTOMS AND BORDER OFFICER Hospital Encounter [facility] Op [address] [address] Mariano Guzmán MD [address] [address] Surgery General 10/14/2025 7:20 AM US CUSTOMS AND BORDER OFFICER - 10/14/2025 9:08 AM US CUSTOMS AND BORDER OFFICER Surgery [facility] [place] [facility] [address] [address] Mariano Guzmán MD [address] [place] [address] ARTHROSCOPY SHOULDER BICEP TENODESIS, DEBRIDEMENT 10/22/2025 2:40 PM US CUSTOMS AND BORDER OFFICER Office Visit [facility] - Orthopedic Surgery [address] [place] [phone] Mariano Guzmán MD [address] [address] 03/11/2026 2:00 PM CDT Office Visit [facility] - Rheumatology [address] [place] [address], [place] [phone] Ev Lowery MD [address] [place] [address] [place] [phone] Scheduled Procedures Name Priority Associated Diagnoses Date/Ti me ARTHROSCOPY SHOULDER BICEP TENODESIS Chronic pain in right shoulder Biceps tendinitis of right shoulder 10/14/2025 7:20 AM US CUSTOMS AND BORDER OFFICER documented as of this encounter Goals Goal Patient Goal Type Associated Problems Recent Progress Patient-Stated? Author Mobility General Improving( 1:50 PM CDT) Coreen Rider, RN Note: Expected end date: 12/01/2020 The goal is to maintain or improve your mobility at the optimum level for you. Interventions: Mobility General Worsening( 1:20 PM US CUSTOMS AND BORDER OFFICER) No Lilo Kaminski RN Note: Expected end date: 11/17/2019 The goal is to maintain or improve your mobility at the optimum level for you. Interventions: PAIN General No Shira Sun RN Note: Expected end date: 01/18/2020 Patient's pain/discomfort is manageable. Interventions: documented as of this encounter Visit Diagnoses Not on filedocumented in this encounter Care Teams Manager Lsw Relationship Specialty Start Date End Date Key Tolliver MD [address] [place] [phone] PCP - General 10/22/18 Pablo Liriano MD [address] [place] [phone] Orthopedic Surgery 05/22/19 Evan Willis MD [address] [place] [phone] Medical Oncologist Medical Oncology 11/02/21 Charles Kingston MD [address] [place] [phone] Harp Regulator Cardiology 11/03/21 documented as of this encounter
--- OUTSIDE RECORDS SUMMARY | 2025-07-29 17:36 | XMS_ITS | Encounter Summary ---
Author Organization [facility] Address [address] [place] [address] Care Team Providers Care Digital Marketing Consultant Name Role Phone Key Tolliver MD Primary Care Provider Pablo Liriano MD Unavailable [phone] Evan Willis MD Unavailable [phone] Charles Kingston MD Unavailable Reason for Visit * Reason Comments Refill Request Encounter Details Date Type Department Care Team (Late st Contact Info) Description 06/27/2025 Refill [facility] - Orthopedic Surgery [address] [place] [phone] Latrice Salinas MD [address] [facility] [place] [address] Refill Request Social History Tobacco Use Types Packs/Day Years [...] on file Legal Sex Female 11:46 AM DIRECTOR DATA ANALYTICS Gender Identity Not on file Sexual Orientation [...] Ngo RN * Does person have difficulty dressing/bathing? Answer Date of Assessment Author No 06/14/2022 12:15 AM Haylie Ngo RN * Does person have difficulty doing errands alone? Answer Date of Assessment Author No 06/14/2022 12:15 AM Haylie Ngo RN documented as of this encounter Mental Status * Does person have difficulty concentrating/remembering/making decisions? Answer Entry Date Author No 06/14/2022 12:15 AM Hayile Ngo RN documented in this encounter Plan of Treatment Upcoming Encounters Date Type Department Care Team (Latest Contact Info) Description 09/09/2025 11:15 AM DIRECTOR DATA ANALYTICS Office Visit [facility] - Orthopedics [address] [facility] [place] [address] Yandel Petersen MD [address] [place] [address] 10/14/2025 7:20 AM DIRECTOR DATA ANALYTICS Hospital Encounter [facility] [address] [address] Mariano Guzmán MD [address] [place] [address] Surgery General 10/14/2025 7:20 AM DIRECTOR DATA ANALYTICS - 10/14/2025 9:08 AM DIRECTOR DATA ANALYTICS Surgery [facility] [address] [address] Mariano Guzmán MD [address] [address] ARTHROSCOPY SHOULDER BICEP TENODESIS, DEBRIDEMENT 10/22/2025 2:40 PM DIRECTOR DATA ANALYTICS Office Visit [facility] - Orthopedic Surgery [address] [place] [phone] Mariano Guzmán MD [address] [place] [address] 03/11/2026 2:00 PM CDT [facility] [address] [place] [address], [facility] [place] [phone] Ev Lowery MD [address] [place] [address] [place] [phone] Scheduled Procedures Name Priority Associated Diagnoses Date/Ti me ARTHROSCOPY SHOULDER BICEP TENODESIS Chronic pain in right shoulder Biceps tendinitis of right shoulder 10/14/2025 7:20 AM DIRECTOR DATA ANALYTICS documented as of this encounter Goals Goal Patient Goal Type Associated Problems Recent Progress Patient-Stated? Author Mobility General Improving( 1:50 PM CDT) Coreen Rider, RN Note: Expected end date: 12/01/2020 The goal is to maintain or improve your mobility at the optimum level for you. Interventions: Mobility General Worsening( 1:20 PM DIRECTOR DATA ANALYTICS) Lilo Xiong, DARRON Note: Expected end date: 11/17/2019 The goal is to maintain or improve your mobility at the optimum level for you. Interventions: PAIN General No Shira Sun RN Note: Expected end date: 01/18/2020 Patient's pain/discomfort is manageable. Interventions: documented as of this encounter Visit Diagnoses Diagnosis Lumbar pain Lumbago Chronic pain in right shoulder Pain in joint, shoulder region Biceps tendinitis of right shoulder documented in this encounter Care Teams Digital Marketing Consultant Relationship Specialty [place] [address] [place] [phone] PCP - General 10/22/18 aPblo Liriano MD [address] [place] [phone] Orthopedic Surgery 05/22/19 Evan Willis MD [address] [place] [phone] Medical Oncologist Medical Oncology 11/02/21 Charles Kingston MD [address] [place] [phone] Nailhead Setter Cardiology 11/03/21 documented as of this encounter
--- OUTSIDE RECORDS SUMMARY | 2025-07-29 17:36 | XMS_ITS | Clinical Summary ---
Author Organization [facility] Address [address] [place] [address] Care Team Providers Care Limousine Driver Name Role Phone Unavailable Primary Care Provider Unavailabl e Allergies Active Allergy Reactions Criticality Noted Date Comments Tape Rash Low 09/12/2016 Medications anastrozole 1 MG tablet TAKE 1 TABLET(1 MG) BY MOUTH DAILY 7 Active cholecalciferol (D3-50) 57640 units capsule Take 100,000 Units by mouth [...] A MEAL 8 Active multi vitamin/mineral s (VITAMINS/APPRAISER TIMBER ALS) tablet Take 1 tablet by mouth. [...] Comments Blood Pressure 146/90 08/01/2018 1:02 PM [facility] Pulse 89 08/01/2018 1:02 PM [facility] Temperature 36.6 C (97.9 F) 08/01/2018 1:02 PM [facility] Respiratory Rate 20 08/01/2018 1:02 PM [facility] Oxygen Saturation 100% 08/01/2018 1:02 PM [facility] Inhaled Oxygen Concentration - - Weight 88 kg (194 lb) 08/01/2018 1:02 PM [facility] Height 167.6 cm (5' 6) 08/01/2018 1:02 PM [facility] Body Mass Index 31.31 08/01/2018 1:02 PM [facility] Plan of Treatment Health Maintenance Due Date Last Done Comments Colorectal Cancer Screening Colonoscopy (10 Years) 1969 Annual Physical 1972 COVID-19 Vaccine (#1) 1974 Hepatitis C 1987 Hepatitis B Vaccines (1 of 3 - 19+ 3-dose series) 1988 Mammogram Screening 2009 Pneumococcal Vaccine: 50+ Years (1 of 1 - PCV) 2019 Zoster Vaccines (1 of 2) 2019 Influenza Adult (#1) 2025 05/15/2018, 07/20/2017 DTaP, Tdap and Td Vaccines ( 2 - Td or Tdap) 09/11/2027 09/11/2017 Hepatitis A Vaccines Aged Out No long er eligible based on patient's age to complete this topic Meningococcal B Vaccine Aged Out No l onger eligible based on patient's age to complete this topic Meningococcal Vaccine Aged Out No leonel claudia eligible based on patient's age to complete this topic RSV Immunizations Under 20 Months Aged Out No longer eligible b ased on patient's age to complete this topic Insurance
--- OUTSIDE RECORDS SUMMARY | 2025-07-29 17:36 | XMS_ITS | Clinical Summary ---
Author Organization [facility] Address [address] [place] [address] Care Team Providers Care Lubricating Specialist Name Role Phone Key Tolliver MD Primary Care Provider Pablo Liriano MD Unavailable [phone] Evan Willis MD Unavailable [phone] Charles Kingston MD Unavailable Source Comments [facility],non-owned Affiliates and Associated Physician Practices is amultiple site organization consisting of ambulatory clinics and hospital sitesin [place], [place], [place] and [place]. This disclosure is being madepursuant to the Care Everywhere program and may not contain all information available regarding this patient. Last updated 18.[facility] Allergies Active Allergy Reactions Criticality Noted Date [...] tablet by mouth daily with breakfast 4 07/01/20 19 Active cyclobenzaprine (Flexeril) 10 MG tablet TAKE 1 TABLET BY MOUTH TWICE DAILY NEEDED FOR MUSCLE SPASMS 60 tablet 1 04/26/20 22 Active ARIPiprazole (Abilify) 2 MG tablet Take by mouth once daily Active hydrOXYzine HCl (Atarax) 50 MG tablet Take 2 (two) tablets by mouth at bedtime 04/16/20 23 Active lisinopril (Prinivil; Zestril) 40 MG tablet Take 1 (one) tablet by mouth once daily Active NIFEdipine CR 24hr (Adalat CC) 30 MG tablet Take 1 (one) tablet by mouth once daily Active pantoprazole EC (Protonix) 40 MG tablet Take 1 (one) tablet by mouth once daily 04/15/20 23 Active omeprazole (PriLOSEC) 40 MG capsule Take 1 (one) capsule by mouth 2 times daily Active celecoxib (CeleBREX) 200 MG capsule Take 1 (one) capsule by mouth once daily 03/19/20 23 Active methocarbamol (Robaxin) 750 MG tablet Take 1 (one) tablet by mouth every 6 hours as needed for Muscle Spasms 20 tablet 08/10/20 23 Active Additional Information Patient not taking.Reported on 07/09/2025 anastrozole (Arimidex) 1 MG tablet Take 1 (one) tablet by mouth once daily 07/17/20 23 Active busPIRone (Buspar) 15 MG tablet Take 1 (one) tablet by mouth 3 times daily with meals 05/08/20 23 Active ferrous sulfate 325 (65 FE) MG tablet Take 1 (one) tablet by mouth once daily 07/17/20 23 Active metoprolol succinate XL 24hr (Toprol XL) 200 MG tablet metoprolol succinate 200 mg tablet extended release 24 hr 07/03/20 22 Active traZODone (Desyrel) 150 MG tablet Take 1 (one) tablet by mouth at bedtime 07/18/20 23 Active docusate sodium (Colace) 100 MG capsule Take 1 (one) capsule by mouth once daily 30 capsule 01/15/20 24 Active naloxone HCl (Narcan) 4 MG/0.1ML nasal spray CALL 911. SPR CONTENTS OF ONE SPRAYER (0.1ML) INTO ONE NOSTRIL. REPEAT IN 2-3 MIN IF SYMPTOMS OF OPIOID EMERGENCY PERSIST, ALTERNATE NOSTRILS Active aspirin (Aspirin) 325 MG tablet Take 1 (one) tablet by mouth once daily 35 tablet 02/20/20 24 Active Additional Information Patient not taking.Reported on 07/09/2025 ketoconazole (Nizoral) 2 % shampooIndicati ons:Seborrheic dermatitis Apply to wet hair, leave on for 3 minutes, then rinse; three times weekly. 30 days supply 112 mL 5 03/05/20 24 Active Additional Information Patient not taking.Reported on 07/09/2025 ketoconazole (Nizoral) 2 % creamIndication s:Seborrheic dermatitis Apply to face 1-2 times daily for rash. 30 days supply. 60 g 3 03/05/20 24 Active fluocinolone (Dermotic) 0.01 % otic oilIndications: Seborrheic dermatitis Apply to ears 1-2 times daily as needed for itching. 20 mL 3 03/05/20 24 Active fluocinolone acetonide (Synalar) 0.01 % solutionIndicat ions:Seborrheic dermatitis Apply to scalp 1-2 times daily as needed for itching. 30 days supply. 60 mL 3 03/05/20 24 Active buPROPion XL 24hr (Wellbutrin-XL) 150 MG tablet Take 1 (one) tablet by mouth once daily 02/27/20 24 Active oxyCODONE, immediate release, (Roxicodone) 5 MG tabletIndicatio ns:Orthopedic aftercare Take 1 (one) tablet by mouth every 6 hours as needed for Pain 12 tablet 03/21/20 24 Active ondansetron (Zofran) 8 MG tablet Take 1 (one) tablet by mouth every 8 hours as needed for Nausea/Vomiting 42 tablet 1 04/30/20 24 Active meloxicam (Mobic) 15 MG tablet TAKE 1 TABLET BY MOUTH DAILY 30 tablet 09/01/20 24 Active acetaminophen-c odeine (Tylenol #3) 300-30 MG tablet Take 1 (one) tablet by mouth every 6 hours as needed pain 06/13/20 24 Active famotidine (Pepcid) 20 MG tablet Take 1 (one) tablet by mouth at bedtime 09/14/19 25 Active fish oil/omega-3 fatty acids (Promega;Cardi- Willis 3) 1000 MG capsule Take by mouth once daily Active albuterol HFA (Proventil; Ventolin; Proair) 108 (90 Base) MCG/ACT inhaler Inhale 1 (one) puff by mouth every 4 hours 10/07/19 25 Active Flovent HFA 44 MCG/ACT inhaler Inhale 2 (two) puffs by mouth 2 times daily 10/07/19 25 Active mirtazapine (Remeron) 15 MG tablet Take 1 (one) tablet by mouth at bedtime Active sucralfate (Carafate) 1 GM/10ML suspension Active potassium chloride ER (K-TAB) 20 MEQ tablet TAKE 2 TABLETS BY MOUTH EVERY DAY AROUND THE CLOCK FOR 1 DAY Active polyethylene glycol 3350 (Miralax) 17 GM/SCOOP powder FOLLOW INSTRUCTIONS GIVEN BY THE OFFICE 12/12/19 25 Active dicyclomine (Bentyl) 20 MG tablet Take [...] MOUTH AT 3PM WITH 8OZ OF WATER 12/12/19 25 Active predniSONE (Deltasone) 20 MG tablet Take 2 (two) tablets by mouth once daily 02/07/20 25 Active losartan (Cozaar) 25 MG tablet Take 1 (one) tablet by mouth once daily 04/13/20 25 026 Active gabapentin (Neurontin) 300 MG capsuleIndicati ons:Lumbar pain Take 1 (one) capsule by mouth at bedtime for 1 day, THEN 1 (one) capsule 2 times daily for 2 days, THEN 1 (one) capsule 3 times daily for 30 days. 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 Take 1 (one) tablet to 2 (two) tablets by mouth every 4 hours as needed for Pain 30 tablet 02/04/20 25 025 Discontin ued(Reord er) Active Problems Problem Noted Date Diagnosed Date Biceps tendinitis of right shoulder 07/20/2025 Chronic pain in right shoulder 07/15/2025 Failed orthopedic implant, initial encounter Incontinence of [...] Port-a-Cath 2021 Pyogenic arthritis of left s [facility], due to unspecified organism 06/13/2022 Postoperative [...] hyperlipidemia 03/30/2021 Atherosclerotic heart diseas e of [place] coronary artery without angina pectoris 03/30/2021 Chest [...] Encounters Date Type Department Care Team Description 07/20/2025 Telephone [facility] - Orthopedic Surgery [address] [phone] Mariano Guzmán MD Surgery Scheduling 07/16/2025 11:37 AM SOCIAL MEDIA MANAGER - 07/16/2025 11:59 PM SOCIAL MEDIA MANAGER Hospital Encounter [facility] Imaging Services - [address] [address] Yandel Petersen MD Discharge Disposition: Home or Self Care 07/16/2025 11:37 AM SOCIAL MEDIA MANAGER - 07/16/2025 11:59 PM SOCIAL MEDIA MANAGER Hospital Encounter [facility] Imaging Services - [address] [address] Yandel Petersen MD Discharge Disposition: Home or Self Care 07/16/2025 Orders Only [facility] - Orthopedics [address] [place] [phone] Myriam Roman RN Neck pain ; Hx of cervical spine surgery; Lumbar pain; Lumbar radiculopathy 07/15/2025 Orders Only [facility] - Orthopedic Surgery [facility] [address] [phone] Mariano Guzmán MD Chronic pain in right shoulder ; Biceps tendinitis of right shoulder 07/09/2025 1:00 PM SOCIAL MEDIA MANAGER Office Visit [facility] - Orthopedic Surgery [address] [phone] Mariano Guzmán MD 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); Biceps tendinitis of right shoulder; Osteoarthritis of right glenohumeral joint 07/09/2025 Refill [facility] - Orthopedic Surgery [facility] [address] [facility] [address] [place] [phone] Zechariah Soto LPN MEDICATION REFILL 07/09/2025 Travel 06/30/2025 Orders Only [facility] - Orthopedic Surgery [facility] [place] [phone] Yandel Petersen MD Neck pain ; Hx of cervical spine surgery; Lumbar pain; Lumbar radiculopathy 06/30/2025 Orders Only [facility] - Orthopedics [address] [place] [phone] Myriam Roman, DARRON Lumbar pain; Neck pain; Hx of cervical spine surgery 06/27/2025 Refill [facility] - Orthopedic Surgery [address] [place] [phone] Latrice Salinas MD Refill Request 06/10/2025 Telephone [facility] - Orthopedics [address] [place] [phone] Myriam Roman, RN Appointment 06/05/2025 Telephone [facility] Physician [facility] - Orthopedics [address] [place] [phone] Myriam Roman, durable medical equipment technician 05/28/2025 2:30 PM CDT Office Visit [facility] Physician [facility] - Orthopedic Surgery [address] [place] [phone] Yandel Petersen MD Lumbar pain (Primary Dx); Lumbar radiculopathy; Status post cervical disc replacement; Pain in joint of right shoulder 05/28/2025 1:00 PM CDT - 05/28/2025 11:59 PM CDT Hospital Encounter [facility] Phys[facility] - Orthopedics [address] [place] [address] [address] [place] [phone] Yandel Petersen MD Discharge Disposition: Home or [...] on file Legal Sex Female 11:46 AM SOCIAL MEDIA MANAGER Gender Identity Not on file Sexual [...] AM CDT Weight 103 kg (227 lb) 07/09/2025 12:56 PM SOCIAL MEDIA MANAGER Height 165.1 cm (5' 5) 07/09/2025 12:56 PM SOCIAL MEDIA MANAGER Body Mass Index 37.77 07/09/2025 12:56 PM SOCIAL MEDIA MANAGER Plan of Treatment Upcoming Encounters Date Type Department Care Team (Latest Contact Info) Description 09/09/2025 11:15 AM SOCIAL MEDIA MANAGER Office Visit [facility] - Orthopedics [address] [place] [phone] Yandel Petersen MD [address] [place] [address] 10/14/2025 7:20 AM SOCIAL MEDIA MANAGER Hospital Encounter [facility] [address] [address] Mariano Guzmán MD [address] [place] [address] Surgery General 10/14/2025 7:20 AM SOCIAL MEDIA MANAGER - 10/14/2025 9:08 AM SOCIAL MEDIA MANAGER Surgery [facility] [address] [address] Mariano Guzmán MD [address] [phone] ARTHROSCOPY SHOULDER BICEP TENODESIS, DEBRIDEMENT 10/22/2025 2:40 PM SOCIAL MEDIA MANAGER Office Visit [facility] - Orthopedic Surgery [address] [phone] Mariano Guzmán MD [address] [address] 03/11/2026 2:00 PM CDT Office Visit [facility] - Rheumatology [address] [place] [address], [place] [phone] Ev Lowery MD [address] [place] [address] [address] [facility] [phone] Scheduled Procedures Name Priority Associated Diagnoses Date/Ti me ARTHROSCOPY SHOULDER BICEP TENODESIS Chronic pain in right shoulder Biceps tendinitis of right shoulder 10/14/2025 7:20 AM SOCIAL MEDIA MANAGER Health Maintenance Due Date Last Done Comments [...] you. Interventions: Mobility General Worsening( 1:20 PM SOCIAL MEDIA MANAGER) No Lilo Kaminski RN Note: Expected end date: 11/17/2019 The goal is to maintain or improve your mobility at the optimum level for you. Interventions: PAIN General No Shira Sun RN Note: Expected end date: 01/18/2020 Patient's pain/discomfort is manageable. Interventions: Medical Devices Implanted Type Area Regional Facilities Manager Device Identifier Shelf Expiration Date Model / Serial / Lot Cmnt Bone Plc R+Ggnta 40gm Lf Grn Implanted:Qty: 1 on 10/11/2017 by Rajendra Ingram MD at [facility] Left: Knee [employer] 12/01/2020 [id number] / / [id number] Description:12 BEADS IN LEFT KNEE ON VICRYL SUTURE 21 BEADS IN RIGHT KNEE ON VICRYL SUTURE Brng [id number] Vngrd Arcm Kn Ant Stab Implanted:Qty: 1 on 10/16/2017 by Rajendra Ingram MD at [facility] Left: Knee [employer] 06/09/2022 [id number] / / Brng [id number] Vngrd Arcm Kn Ant Stab Implanted:Qty: 1 on 10/16/2017 by Rajendra Ingram MD at [facility] Right: Knee [employer] 07/25/2022 [id number] / / Cmpnt Tibtry Bmt As Mx Kn Intlk Prm Lck Implanted:Qty: 1 on 10/16/2017 by Rajendra Ingram MD at [facility] Left: Knee [employer] 07/11/2027 [id number] / / Cmpnt Tibtry Bmt As Mx Kn Intlk Prm Lck Implanted:Qty: 1 on 10/16/2017 by Rajendra Ingram MD at [facility] Right: Knee [employer] 06/17/2027 [id number] / / Kam Kn Tot Rev 50% Of 2014 Implanted:Qty: 1 on 10/16/2017 by Rajendra Ingram MD at [facility] Wan [employer] KR2 KNEE TO T REV WAN BILL ONLY / / Cmpnt Glnd 38mm Std Glenosphere Sckt Geovany Implanted:Qty: 1 on 03/19/2019 by Pablo Liriano MD at [facility] Left: Shoulder [employer] Inc 11/01/2023 [id number] / / Description:DXTND GLENOSPHER E STD O08SL--32/22 LG Dxtend Mod Cent Epi 1 Ocampo Implanted:Qty: 1 on 03/19/2019 by Pablo Liriano MD at [facility] Left: Shoulder 01/01/2024 1307-20-101 / / Description:delta xtend mudu lar centered epiphysis Global Unite Std Stem Sz 8 Implanted:Qty: 1 on 03/19/2019 by Pablo Liriano MD at [facility] Left: Shoulder 08/02/2027 1100-08-100 / / Description:global unite por ocoat standard stem Dxtend Stand Pe Cup D38 +3mm Implanted:Qty: 1 on 03/19/2019 by Pablo Liriano MD at [facility] Left: Shoulder 1307-38-203 / / [id number] Description:Delta xtend lyudmila ral PE cup standard Sys Shld Tot Arthroplst Rev Implanted:Qty: 1 on 03/19/2019 by Pablo Liriano MD at [facility] Left: Shoulder [employer] S4 DEPUY / / Cmpnt Glnd 27mm Std Geovany Xtend Metaglene Implanted:Qty: 1 on 03/19/2019 by Pablo Liriano MD at [facility] Left: Shoulder [employer] 12/02/2023 1307-60-000 / / Description:DXTEND METAGLENE Dxtend Screw Lock D4.5x36mm Implanted:Qty: 1 on 03/19/2019 by Pablo Liriano MD at [facility] Left: Shoulder 12/02/2023 1307-90-036 / / Description:PACK ACL TISSUE FX CSTM SRG PRC DISP Screw 4.5mm 30mm Shldr Glnd Lck Geovany Implanted:Qty: 1 on 03/19/2019 by Pablo Liriano MD at [facility] Left: Shoulder [employer] 01/01/2024 1307-90-030 / / Description:DXTEND SCREW LOC K D4.0F07DL--07/22 LG 6.5mm Canellous Screw Implanted:Qty: 1 on 10/25/2020 by Anjelica Gutierres MD at [facility] Right: Ankle [employer] 486-55-01 / / 6.5mm Cancellous Screw Implanted:Qty: 1 on 10/25/2020 by Anjelica Gutierres MD at [facility] Right: Ankle [employer] / / Cortical Screw 2.7mm Implanted:Qty: 1 on 10/25/2020 by Anjelica Gutierres MD at [facility] Right: Ankle [employer] 30-6129-837-35 / / Screw 3.5mm 32mm 2.5mm Slf-Tap Sm Hex Implanted:Qty: 2 on 10/25/2020 by Anjelica Gutierres MD at [facility] Right: Ankle [employer] [id number] / / Screw 3.5mm 45mm 2.5mm Slf-Tap Sm Hex Implanted:Qty: 1 on 10/25/2020 by Anjelica Gutierres MD at [facility] Right: Ankle [employer] [id number] / / Graft Bone Alfs + Dbm 1cc Algrf Pst Implanted:Qty: 1 on 10/25/2020 by Anjelica Gutierrse MD at [facility] Right: Ankle Allosource 04/08/2021 [id number] / / [id number] Bsplt Glnd 30mm Rsp Shldr P2 Strl Lf Implanted:Qty: 1 on 04/26/2022 by Mariano Guzmán MD at [facility] Left: Shoulder [employer] 03/23/2028 508-32-204 / / [id number] Screw 5mm 14mm Shldr Lck Rsp Glnd Bsplt Implanted:Qty: 1 on 04/26/2022 by Mariano Guzmán MD at [facility] Left: Shoulder [employer] 03/25/2028 506-03-114 / / [id number] Screw 5mm 14mm Shldr Lck Rsp Glnd Bsplt Implanted:Qty: 1 on 04/26/2022 by Mariano Guzmán MD at [facility] Left: Shoulder [employer] 04/05/2028 506-03-114 / / [id number] Screw 5mm 30mm Shldr Lck Rsp Glnd Bsplt Implanted:Qty: 1 on 04/26/2022 by Mariano Guzmán MD at [facility] [place] Left: Shoulder [employer] 03/13/2028 506-03-130 / / [id number] Screw 5mm 30mm Shldr Lck Rsp Glnd Bsplt Implanted:Qty: 1 on 04/26/2022 by Mariano Guzmán MD at [facility] [place] Left: Shoulder [employer] 03/18/2028 506-03-130 / / [id number] Cmnt Bone Djo Srg Cblt 40gm Hvisc Strl Implanted:Qty: 1 on 04/26/2022 by Mariano Guzmán MD at [facility] Left: Shoulder [employer] 03/16/2023 600-15-000 / / [id number] Head Glnd 32mm Rsp Ntrl Shldr Rtn Screw Implanted:Qty: 1 on 04/26/2022 by Mariano Guzmán MD at [facility] [place] Left: Shoulder [employer] 03/22/2028 508-32-101 / / [id number] Ins Sckt Rsp Djo Srg +4mm Hum Hxe+ Implanted:Qty: 1 on 04/26/2022 by Mariano Guzmán MD at [facility] Left: Shoulder [employer] 12/26/2026 509-01-432 / / [id number] Humeral Stem Reverse Size 8mm X 108mm Implanted:Qty: 1 on 04/26/2022 by Mariano Guzmán MD at [facility] Left: Shoulder [employer] 10/05/2027 530-08-108 / / [id number] Rstrc Cmnt Cl Ct 10mm Implanted:Qty: 1 on 04/26/2022 by Mariano Guzmán MD at [facility] [place] Left: Shoulder [employer] 07/03/2024 415-00-100 / / [id number] Rsp Humeral Socket Insert 32mm Semi-Constrain ed Implanted:Qty: 1 on 06/14/2022 by Mariano Guzmán MD at [facility] Left: Shoulder [employer] 08/12/2026 509-01-032 / / [id number] Spcr Hum Djo Srg Rsp +8mm Mnblck Strl Lf Implanted:Qty: 1 on 06/14/2022 by Mariano Guzmán MD at [facility] [place] Left: Shoulder [employer] 04/12/2028 510-08-000 / / [id number] Head Glnd 32mm Rsp Ntrl Shldr Rtn Screw Implanted:Qty: 1 on 06/14/2022 by Mariano Guzmán MD at [facility] [place] Left: Shoulder [employer] 05/17/2028 508-32-101 / / [id number] Screws Implanted:Qty: 1 on 08/10/2023 by Jace Muller MD at [facility] Left: Ankle AR-8935-32 / / Description:3.0-4.0 ARTHREX VENDOR TRAY Screw Implanted:Qty: 1 on 08/10/2023 by Jace Muller MD at [facility] Left: Ankle Arthrex Inc AR-8940-34 / / Description:3.0-4.0 ARTHREX TRAY Kit Bngf 3cc Aug Inj Implanted:Qty: 1 on 01/14/2024 by Jace Muller MD at [facility] Left: Ankle Miiix Inc 08/30/2026 [id number] / / [id number] Graft Bone Ignite 2 Mini 4cc Pwr Mx - [id number] Implanted:Qty: 1 on 01/14/2024 by Jace Muller MD at [facility] Left: Ankle Miiix Inc 07/19/2028 [id number] / [id number] / Allosync Pure 5cc Implanted:Qty: 1 on 01/14/2024 by Jace Muller MD at [facility] Left: Ankle Arthrex Inc 08/20/2028 ABS-2009-05 / / [id number] 7.0 Screw 55 Implanted:Qty: 1 on 01/14/2024 by Jace Muller MD at [facility] Left: Ankle Arthrex Inc AR-8770-5H / / 7.0 Screw 40 Implanted:Qty: 1 on 01/14/2024 by Jace Muller MD at [facility] Left: Ankle Ar[employer] Inc AR-8770-40H / / Explanted Type Area Regional Facilities Manager Device Identifier Shelf Expiration Date Model / Serial / Lot Cortical Screw 3.5mm Explanted:Qty: 1 on 10/25/2020 at [facility] Right: Ankle [employer] [id number] / / 4.0mm Screw Explanted:Qty: 1 on 08/10/2023 at [facility] Left: Ankle AR-8940-32 / / Screw 3mm 20mm T10 Ft Slf-Tap Lck Strdr Explanted:Qty: 1 on 08/10/2023 by Felipe Bourne MD at [facility] Left: Ankle Ar[employer] Inc AR-8933L-20 / / Screw 3mm 18mm Va Slf-Tap Sld Lck Ankl Explanted:Qty: 1 on 08/10/2023 by Felipe Bourne MD at [facility] Left: Ankle Ar[employer] Inc AR-8933V-18 / / Wire K .062in 6in Fx 2 Troc Explanted:Qty: 2 on 08/10/2023 at [facility] Left: Ankle [employer] [id number] / / Screw 3.5mm 28mm T15 Ft Slf-Tap Sld Hxlb Implanted:Qty: 1 on 08/10/2023 by Jace Muller MD at [facility] Explanted:Qty: 1 on 01/14/2024 by Jace Muller MD at [facility] Left: Ankle Ar[employer] Inc AR-8935CL-2 8 / / Screw 3.5mm 26mm T15 Ft Slf-Tap Sld Hxlb Implanted:Qty: 1 on 08/10/2023 by Jace Muller MD at [facility] Explanted:Qty: 1 on 01/14/2024 by Jace Muller MD at [facility] [place] Left: Ankle Ar[employer] Inc AR-8935CL-2 6 / / Plate Calc 7.5mm Stp Bone Implanted:Qty: 1 on 08/10/2023 by Jace Muller MD at [facility] Explanted:Qty: 1 on 01/14/2024 by Jace Muller MD at [facility] Left: Ankle Ar[employer] Inc AR-8949-075 / / 3.5mm Locking Screw Implanted:Qty: 1 on 08/10/2023 by Jace Muller MD at [facility] Explanted:Qty: 1 on 01/14/2024 by Jace Muller MD at [facility] Left: Ankle AR-8935CL-2 4 / / Description:3.0-4.0 ARTHREX VENDOR TRAY Screw 3mm 16mm Va Slf-Tap Sld Lck Ankl Implanted:Qty: 1 on 08/10/2023 by Felipe Bourne MD at [facility] Explanted:Qty: 1 on 01/14/2024 by Jace Muller MD at [facility] [place] Left: Ankle Ar[employer] Inc AR-8933V-16 / / Screw 3mm 20mm Va Slf-Tap Sld Lck Ankl Implanted:Qty: 1 on 08/10/2023 by Felipe Bourne MD at [facility] Explanted:Qty: 1 on 01/14/2024 by Jace Muller MD at [facility] Left: Ankle Ar[employer] Inc AR-8933V-20 / / Procedures Procedure Name Priority Date/Time Associated Diagnosis Comments MRI LUMBAR SPINE WO CONTRAST Routine 07/16/2025 1:13 PM SOCIAL MEDIA MANAGER Lumbar pain Lumbar radiculopathy MRI CERVICAL SPINE WO CONTRAST Routine 07/16/2025 12:40 PM SOCIAL MEDIA MANAGER Neck pain Hx of cervical spine surgery XR LUMBAR SPINE 2 OR 3VW Routine 05/28/2025 1:05 PM CDT Lumbar pain COMPREHENSIVE METABOLIC PANEL Routine 09/17/2024 12:09 PM SOCIAL MEDIA MANAGER 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 2.The lower cord and conus are normal and are not compressed. 3.Advanced facet osteoarthritis bilaterally at L5-S1, on the right side at L4-L5 and on the right side at L3-L4. 4.Otherwise unremarkable for age. Please see text for details. > Interpreting Provider: Cyrus Rdoriguez MD on 07/16/2025 1:36 PM Narrative 07/16/2025 1:36 PM SOCIAL MEDIA MANAGER PROCEDURE: MRI LUMBAR SPINE WO CONTRAST DATE/TIME OF EXAM: 07/16/2025 1:13 PM CLINICAL INFORMATION: None relevant/not provided if blank. Indication: M54.50: Lumbar pain M54.16: Lumbar radiculopathy MRI OF THE LUMBAR SPINE WITHOUT CONTRAST HISTORY: M54.50: Lumbar pain; M54.16: Lumbar radiculopathy. Lumbar radiculopathy, chronic low back pain. History recent fall. Pain persistent despite 6 weeks of treatment. TECHNIQUE: MRI of the lumbar spine was performed without contrast according to standard protocol on a 1.0 Rosa Maira open Godwin MRI scanner. COMPARISON: Lumbar spine radiographs, 05/28/2025 FINDINGS: The alignment is normal. Vertebral bodies are normal in height. No fracture, spondylolisthesis, marrow edema or a malignant marrow replacing process is identified. Marrow signal intensity is normal. The conus medullaris terminates at the level of L1-L2 and is normal. The imaged lower thoracic spinal cord is normal and is not compressed. Normal The intervertebral disc spaces are normal in height and there is no evidence of endplate osteophytosis or significant desiccation of the discs to indicate significant degenerative disc disease. T9-T10 and T10-T11: These are only imaged in sagittal plane and appear normal on sagittal images. T11-T12, T12-L1 and L1-L2: The discs, central canal, lower cord, conus, neural foramina and exiting nerves are within normal limits. Mild age appropriate facet osteoarthritis is seen at each of these levels. L2-L3, L3-L4, L4-L5 and L5-S1: The discs, central canal, lateral recesses, traversing nerves, neural foramina and exiting nerves are normal. Facet osteoarthritis is advanced bilaterally at L5-S1, left more than right, right L4-L5 and right L3-L4. There are varying degrees of mild facet osteoarthritis at the L2-L3 through L4-L5 levels. The subcutaneous fat, psoas muscles and the imaged retroperitoneal soft tissues are within normal limits. The posterior paravertebral muscles appear normal. Procedure Note Cyrus Rodriguez MD - 07/16/2025 PROCEDURE: MRI LUMBAR SPINE WO CONTRAST DATE/TIME OF EXAM: 07/16/2025 1:13 PM CLINICAL INFORMATION: None relevant/not provided if blank. Indication: M54.50: Lumbar pain M54.16: Lumbar radiculopathy MRI OF THE LUMBAR SPINE WITHOUT CONTRAST HISTORY: M54.50: Lumbar pain; M54.16: Lumbar radiculopathy. Lumbar radiculopathy, chronic low back pain. History recent fall. Painpersistent despite 6 weeks of treatment. TECHNIQUE: MRI of the lumbar spine was performed without contrastaccording to standard protocol on a 1.0 [facility] MRI scanner. COMPARISON: Lumbar spine radiographs, 05/28/2025 FINDINGS: The alignment is normal. Vertebral bodies are normal in height. No fracture, spondylolisthesis, marrow edema or a malignant marrowreplacing process is identified. Marrow signal intensity is normal. The conus medullaris terminates at the level of L1-L2 and is normal. The imaged lower thoracic spinal cord is normal and is not compressed. Normal The intervertebral disc spaces are normal in height and there is no evidence of endplate osteophytosis or significant desiccation of thediscs to indicate significant degenerative disc disease. T9-T10 and T10-T11: These are only imaged in sagittal plane and appear normal on sagittal images. T11-T12, T12-L1 and L1-L2: The discs, central canal, lower cord, conus, neural foramina and exiting nerves are within normal limits. Mild age appropriate facet osteoarthritis is seen at each of these levels. L2-L3, L3-L4, L4-L5 and L5-S1: The discs, central canal, lateralrecesses, traversing nerves, neural foramina and exiting nerves are normal. Facet osteoarthritis is advanced bilaterally at L5-S1, left more than right, right L4-L5 and right L3-L4. There are varying degrees of mildfacet osteoarthritis at the L2-L3 through L4-L5 levels. The subcutaneous fat, psoas muscles and the imaged retroperitoneal soft tissues are within normal limits. The posterior paravertebral muscles appear normal. IMPRESSION: 1.Negative for fracture, suspicious intrinsic bony lesion, posteriordisc herniation or neural impingement, throughout. 2.The lower cord and conus are normal and are not compressed. 3.Advanced facet osteoarthritis bilaterally at L5-S1, on the right sideat L4-L5 and on the right side at L3-L4. 4.Otherwise unremarkable for age. Please see text for details. > Interpreting Provider: Cyrus Rodriguez MD on 07/16/2025 1:36 PM Yandel Petersen MD MR ORDERABLES Final Result * MRI Cervical Spine Wo Contrast (07/16/2025 12:40 PM SOCIAL MEDIA MANAGER) Anatomical Region Laterality Modality Pelvis Magnetic Resonan ce 07/16/2025 12:4 8 PM SOCIAL MEDIA MANAGER Impressions 07/16/2025 12:53 PM SOCIAL MEDIA MANAGER IMPRESSION: 1.The postsurgical changes of prosthetic device placement at C5-C6 are similar to the CT examination and given that associated misregistration artifact, no complications are evident. 2.A straightening of the cervical spine is similar to the prior study and can be positional, developmental or represent muscle spasm. 3.Otherwise, normal examination without degenerative changes or traumatic sequela. In particular, the cord is normal and there is no evidence of neural impingement, throughout. > Interpreting Provider: Cyrus Rodriguez MD on 07/16/2025 12:53 PM Narrative 07/16/2025 12:53 PM SOCIAL MEDIA MANAGER PROCEDURE: MRI CERVICAL SPINE WO CONTRAST DATE/TIME OF EXAM: 07/16/2025 12:40 PM CLINICAL INFORMATION: None relevant/not provided if blank. Indication: M54.2: Neck pain Z98.890: Hx of cervical spine surgery EXAMINATION: MRI OF THE CERVICAL SPINE WITHOUT CONTRAST HISTORY: M54.2: Neck pain; Z98.890: Hx of cervical spine surgery. Chronic neck pain after recent fall. History of previous cervical spine surgery. TECHNIQUE: MRI of the cervical spine was performed without contrast according to standard protocol on a 1.0 [facility] MRI scanner. COMPARISON: CT cervical spine without contrast, 12/15/2024 FINDINGS: There is a prosthetic device at C5-C6 causing significant misregistration artifact obscuring the adjacent vertebral bodies. Straightening of cervical spine has not changed and there is no evidence of a scoliosis. The visible vertebral bodies are normal in height. No fracture, spondylolisthesis, marrow edema or a malignant marrow replacing process is identified. The craniocervical junction and visualized portions of the posterior fossa appear normal. The visible intervertebral discs are normal in height. Visible marrow signal intensity is normal. The spinal cord appears normal in size, contour and signal intensity and it is not compressed. The anterior and posterior longitudinal ligaments as well as the posterior ligamentous complex appear intact. No evidence of posterior disc abnormality, epidural lesions/hemorrhage, spinal stenosis, cord abnormality, neural foraminal stenosis or neural impingement, throughout the entire cervical spine on axial and sagittal images or the imaged portion of the upper thoracic spine at the T1-T2, T2-T3 and T3-T4 levels on the sagittal images. The facets and uncovertebral joints are normal at all cervical levels on sagittal and axial images. No soft tissue abnormality is identified, especially the prevertebral soft tissues. Normal flow voids are identified in the vertebral arteries. The left vertebral artery is dominant. Procedure Note Cyrus Rodriguez MD - 07/16/2025 PROCEDURE: MRI CERVICAL SPINE WO CONTRAST DATE/TIME OF EXAM: 07/16/2025 12:40 PM CLINICAL INFORMATION: None relevant/not provided if blank. Indication: M54.2: Neck pain Z98.890: Hx of cervical spine surgery EXAMINATION: MRI OF THE CERVICAL SPINE WITHOUT CONTRAST HISTORY: M54.2: Neck pain; Z98.890: Hx of cervical spine surgery.Chronic neck pain after recent fall. History of previous cervical spine surgery. TECHNIQUE: MRI of the cervical spine was performed without contrast according to standard protocol on a 1.0 Rosa Maria open Godwin MRIscanner. COMPARISON: CT cervical spine without contrast, 12/15/2024 FINDINGS: There is a prosthetic device at C5-C6 causing significantmisregistration artifact obscuring the adjacent vertebral bodies. Straightening ofcervical spine has not changed and there is no evidence of a scoliosis. Thevisible vertebral bodies are normal in height. No fracture, spondylolisthesis, marrow edema or a malignant marrow replacing process is identified. The craniocervical junction and visualized portions of the posterior fossa appear normal. The visible intervertebral discs are normal in height. Visible marrow signal intensity is normal. The spinal cord appears normal in size, contour and signal intensity andit is not compressed. The anterior and posterior longitudinal ligaments as well as the posterior ligamentous complex appear intact. No evidence of posterior disc abnormality, epidural lesions/hemorrhage, spinal stenosis, cord abnormality, neural foraminal stenosis or neural impingement, throughout the entire cervical spine on axial and sagittal images or the imaged portion of the upper thoracic spine at the T1-T2, T2-T3 and T3-T4 levels on the sagittal images. The facets anduncovertebral joints are normal at all cervical levels on sagittal and axial images. No soft tissue abnormality is identified, especially the prevertebralsoft tissues. Normal flow voids are identified in the vertebral arteries. The left vertebral artery is dominant. IMPRESSION: 1.The postsurgical changes of prosthetic device placement at C5-C6 are similar to the CT examination and given that associated misregistration artifact, no complications are evident. 2.A straightening of the cervical spine is similar to the prior studyand can be positional, developmental or represent muscle spasm. 3.Otherwise, normal examination without degenerative changes ortraumatic sequela. In particular, the cord is normal and there is no evidence of neural impingement, throughout. > Interpreting Provider: Cyrus Rodriguez MD on 07/16/2025 12:53 PM us Yandel Petersen MD MR ORDERABLES Final Result * XR Lumbar Spine 2 or 3Vw (05/28/2025 1:05 PM CDT) Anatomical Region Laterality Modality Spine Radiographic Gely ging 05/28/2025 1:07 PM CDT Narrative 05/28/2025 1:08 PM CDT Procedure: XR LUMBAR SPINE 2 OR 3VW Exam Date: 05/28/2025 1:05 PM Location: [facility] Indication: M54.50: Lumbar pain Findings/impression: The [...] 3VW Exam Date: 05/28/2025 1:05 PM Location: [facility] Indication: M54.50: Lumbar pain Findings/impression: The [...] C Light MD on 05/28/2025 1:08 PM us Yandel Petersen MD DIAGNOSTIC IMAGING ORD ERABLES Final Result * (ABNORMAL) COMPREHENSIVE METABOLIC PANEL (09/17/2024 12:09 PM SOCIAL MEDIA MANAGER) BUN 17 7 - 26 mg/dL 09/17/2024 1:09 PM SOCIAL MEDIA MANAGER [facility] Creatinine 1.03(H) 0.56 - [...] Lab Venipuncture / Unknown 09/17/2024 12:09 PM [facility] 09/17/2024 12:29 PM SOCIAL MEDIA MANAGER us Ev Lowery MD LAB - CHEMISTRY ORDERABLES Fi nal Result Performing Organization Address [facility]/ZIP Co de Phone Number [facility] [address] [place] [address], [facility] [phone] * HIV-1 HIV-2 ANTIBODY + HIV P24 AG PANEL (10/12/2017 4:43 AM SOCIAL MEDIA MANAGER) HIV1/2 Ab + P24 Ag Non Reactive Non Reactive 10/12/2017 11:04 AM SOCIAL MEDIA MANAGER [facility] Blood BLOOD SPECIMEN / Unknown Venipuncture / Unknown 10/12/2017 4:43 AM SOCIAL MEDIA MANAGER 10/12/2017 4:57 AM SOCIAL MEDIA MANAGER Narrative [facility] - 10/12/2017 11:04 AM SOCIAL MEDIA MANAGER No Laboratory evidence of HIV infection. Singh Moyer MD LAB - CHEMISTRY ORDERAB LES Final Result Performing Organization Address [facility] Co de Phone Number [facility] [address] [place] [address] * HEPATITIS C ANTIBODY (12/27/2015 5:08 PM CDT) Pathologist [facility] Hepatitis C Antibody Non-react [facility] Comment: Hepatitis C Antibody screen indicates no [...] 5:08 PM CDT 12/27/2015 6:07 PM CDT us Citlaly Avalos MD LAB - CHEMISTRY ORDERABLES Fi nal Result Performing Organization Address [facility]/ZIP Co de Phone Number [facility] [address] [place] [address], [facility] [phone] from Last 3 Months or Most Recently Relevant to Health Maintenance Insurance [facility] Advance Directives * Full Code (Latest [...] 8:14 PM 04/27/2022 6:26 PM Care Teams Lubricating Specialist Relationship Specialty [place] [address] [place] [address] [phone] PCP - General 10/22/18 [place] [address] [place] [address] [phone] Orthopedic Surgery 05/22/19 [place] [address] [place] [address] [phone] Medical Oncologist Medical Oncology 11/02/21 Charles Kingston MD [facility] [address] [phone] Chemist Water Purification Cardiology 11/03/21
--- OUTSIDE RECORDS SUMMARY | 2025-07-29 17:36 | XMS_ITS | Encounter Summary ---
Author Organization [facility] Address [address] [place] [address] Care Team Providers Care Gasoline Finisher Name Role Phone Key Tolliver MD Primary Care Provider [phone] Reason for Visit * Reason Comments Medication Refill Encounter Details Date Type Department Care Team ([facility] Contact Info) Description 11/20/[address] 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 Gender Identity Not on file Sexual Orientation Not on file documented as of this encounter Plan of Treatment Upcoming Encounters Date Type Department Care Team (Late Contact Info) Description 12/24/2025 2:15 PM CDT Office Visit [facility] Oncology and Hematology - [place] [address] [place] [address] Evan Willis MD [address] [facility] [address] [place] [address] documented as of this encounter Visit Diagnoses Not on filedocumented in this encounter Care Teams Gasoline Finisher Relationship Specialty Start Date End Date Key Tolliver MD [address] [place] [address] PCP - General Internal Medicine 11/05/18 documented as of this encounter
--- OUTSIDE RECORDS SUMMARY | 2025-07-29 17:36 | XMS_ITS | Clinical Summary ---
Author Organization [facility] Address [address] [facility] [place] [address] Care Team Providers Care Limehouse Worker Name Role Phone Key Tolliver MD Primary Care Provider [phone] Allergies Active Allergy Reactions Criticality Noted Date Comments Adhesive Tape-Silicones Rash,Itching,Other (See Comments) High 09/12/2016 SKIN TURNED RED, AND LOOKED LIKE A BURN, TEGADERM HAD THE WORSE REACTION TEGADERM TEGADERM Other reaction(s): Other (See Comments) SKIN TURNED RED, AND LOOKED LIKE A BURN, TEGADERM HAD THE WORSE REACTION Medications cyclobenzaprine (FLEXERIL) 10 mg tablet 3 times daily as needed. 9 Active metoprolol succinate (TOPROL XL) 200 mg Extended Release 24 hour tablet Take by mouth daily after supper. 9 Active venlafaxine 225 mg Extended Release 24 hour tablet 225 mg. 9 Active venlafaxine (Effexor XR) 150 mg Extended Release 24 hour capsuleIndicati ons:Malignant neoplasm of upper-outer quadrant of left breast in female, estrogen receptor positive (CMS/HCC) Take 1 Capsule (150 mg) by mouth daily. 30 Capsule 5 1 Active hydrOXYzine HCL (ATARAX) 50 mg tablet TAKE 1 TABLET BY MOUTH EVERY DAY AT BEDTIME Active omega-3 fatty acids-fish oil 300-1,000 mg Capsule Take by mouth daily. Active ARIPiprazole (ABILIFY) 2 mg tablet TAKE 1 TABLET BY MOUTH EVERY DAY AFTER A MEAL Active celecoxib (CeleBREX) 200 mg capsule Take 1 Capsule by mouth daily. 3 Active NIFEdipine (PROCARDIA XL) 30 mg Extended Release 24 hour tablet Take 30 mg by mouth daily. Active famotidine (PEPCID) 20 mg tablet Take 20 mg by mouth 2 times daily. Active omeprazole (PriLOSEC) 40 mg Capsule, Delayed Release(E.C.) Take 40 mg by mouth daily. Active naloxone (NARCAN) 4 mg/spray [place], Non-Aerosol EMERGENCY USE ONLY: Administer 1 spray [...] Encounters Date Type Department Care Team Description 07/21/2025 External Device Data STL ABSTRACTION Provider, Abstract 06/25/2025 2:00 PM CDT Office Visit [facility] Oncology and Hematology - [place] [address] [place] [address] Evan Willis MD Malignant neoplasm of upper-outer quadrant of left breast in female, estrogen receptor positive (CMS/HCC) (Primary Dx) 06/18/2025 Orders Only [facility] Oncology and Hematology - [place] [address] [place] [address] Evan Willis MD 06/17/2025 Orders Only [facility] Oncology and Hematology - [place] [address] [place] [address] Evan Willis MD 05/06/2025 External Device Data [...] on file 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 Gender Identity Not on file Sexual Orientation Not on file Last Filed Vital Signs Vital Sign Reading Time Taken Comments Blood Pressure 140/102 06/25/2025 1:57 PM CDT manual Pulse 79 06/25/2025 1:51 PM CDT Temperature 36.4 C (97.6 F) 06/25/2025 1:51 PM CDT Respiratory Rate 15 06/25/2025 1:51 PM CDT Oxygen Saturation 93% 06/25/2025 1:51 PM CDT Inhaled Oxygen Concentration - - Weight 103.5 kg (228 lb 3.2 oz) 06/25/2025 1:51 PM CDT Height 165.1 cm (5' 5) 08/11/2024 12:5 5 PM LEAD OPERATOR Body Mass Index 37.97 08/11/2024 12:55 PM LEAD OPERATOR Plan of Treatment Upcoming Encounters Date Type Department Care Team (Late st Contact Info) Description 12/24/2025 2:15 PM CDT Office Visit [facility] Oncology and Hematology - [place] [address] [place] [address] Evan Willis MD [address] [facility] [place] [address] Health Maintenance Due Date Last Done Comments [...] 09/11/2027 09/11/2017 Medical Devices Implanted Type Area Lead Radiologic Technologist Device Identifier Shelf Expiration Date Model / Serial / Lot Roofing Plant Supervisor Clip Surgiclip Ii Yordan 9.75in [id number] - [id number] Implanted:Qty: 1 on 10/23/2019 by Rodolfo Truong MD at [facility] Clip N/A: Breast [employer] - [employer]EN [id number] 06/02/2024 [id number] / / [id number] Natrelle Inspira Softtouch Breast Implant Implanted:Qty: 1 on 07/28/2024 by Rodolfo Truong MD at [facility] Other Right: Breast [employer] [id number] 10/08/2028 SSX-750 / [id number] / Natrelle Inspira Softtouch Breast Implant Implanted:Qty: 1 on 07/28/2024 by Rodolfo Truong MD at [facility] Other Left: Breast [employer]ICAL [id number] 07/16/2026 SSF-745 / [id number] / Description:Both Allergan Im plants Requisition,[id number]. Knee Replacement-Yves Plate/ Screws Of Neck Left Shoulder Replacement Explanted Type Area Lead Radiologic Technologist Device Identifier Shelf Expiration Date Model / Serial / Lot Tissue Manager Private W/ Suture Tabs Implanted:Qty: 1 on 10/23/2019 by Rodolfo Truong MD at [facility] Explanted:Qty: 1 on 04/06/2020 at [facility] Mammary Left: Breast [employer]ICAL [id number] 07/07/2024 133S-MX-1 3-T / [id number] / Description:Filled with 120m l 0.9% NaCl Both Allergan tissue expanders are processed on requisition [id number]. Tissue Manager Private With Suture Tabs Implanted:Qty: 1 on 10/23/2019 by Rodolfo Truong MD at [facility] Explanted:Qty: 1 on 04/06/2020 at [facility] Mammary Right: Breast [employer]- MEDICAL 04/25/2024 133S-MX-1 3-T / [id number] / Description:Requisition # [id number] Natrelle Inspira Softtouch Breast Implant 450cc Implanted:Qty: 1 on 04/06/2020 by Rodolfo Truong MD at [facility] Explanted:Qty: 1 on 08/16/2020 at [facility] Mammary Left: Breast [employer]ICAL [id number] 08/17/2024 SSF-450 / [id number] / Description:Both Allergan Br east Implants are processed on requisition [id number]. Natrelle Inspira Softtouch Breast Implant 525cc Implanted:Qty: 1 on 04/06/2020 by Rodolfo Truong MD at [facility] Explanted:Qty: 1 on 08/16/2020 at [facility] Mammary Right: Breast [employer]ICAL [id number] 12/29/2023 SSX-525 / [id number] / Description:Requisition # [id number]. Natrelle Inspira Soft Touch Ssf-560 Implanted:Qty: 1 on 08/16/2020 at [facility] Explanted:Qty: 1 on 02/22/2023 by Rodolfo Truong MD at [facility] Right: Breast [employer]ICAL [id number] 06/21/2024 SSF-560 / [id number] / Description:Requisition # [id number] left breast Imp Breast Inspira Ssx 700ml Ssx-700 - [id number] Explanted:Qty: 1 on 02/22/2023 at [facility] Right: Breast [employer] MEDICAL 01/04/2026 SSX-700 / [id number] / Natrelle Inspira Softtouch Ssx-615 Implanted:Qty: 1 on 08/16/2020 at [facility] Explanted:Qty: 1 on 02/22/2023 by Rodolfo Truong MD at [facility] Right: Breast [employer]ICAL [id number] 10/15/2024 SSX-615 / [id number] / Description:both Allergan re placement breast implants are processed on requisition [id number]. Imp Breast Inspira Ssf 650ml Ssf-650 - [id number] Implanted:Qty: 1 on 02/22/2023 by Rodolfo Truong MD at [facility] Explanted:Qty: 1 on 07/28/2024 by Rodolfo Truong MD at [facility] Left: Breast [employer]ICAL 09/11/2027 SSF-650 / [id number] / Imp Breast Inspira Ssx 615ml Ssx-615 - [id number] Implanted:Qty: 1 on 02/22/2023 by Rodolfo Truong MD at [facility] Explanted:Qty: 1 on 07/28/2024 by Rodolfo Truong MD at [facility] Right: Breast [employer]ICAL 10/15/2024 SSX-615 / [id number] / Description:Original implant placed on 08/16/2020 was explanted today but surgeon reimplanted after trying alteratives unsuccessfully. Procedures Procedure Name Priority Date/Time Associated Diagnosis Comments CHG CA 15 3 Routine 06/16/2025 11:39 AM CDT COMPREHENSIVE METABOLIC PANEL Routine 06/16/2025 7:55 AM CDT ENDOSCOPY, COLON, SCREENING Routine 01/01/2017 from Last 3 Months or Most Recently Relevant to Health Maintenance Results * CHG CA 15 3 (06/16/2025 11:39 AM CDT) us Evan Willis MD [facility]G - LABORATORY Final Result * COMPREHENSIVE METABOLIC PANEL (06/16/2025 7:55 AM CDT) Blood us Evan Willis MD CHEMISTRY ORDERABLES Final Resu lt * ENDOSCOPY, COLON, SCREENING (01/01/2017) us Cory Delgado MD GI PROCEDURE ORDERABLES Edited Result - Final [facility] from Last 3 Months or Most Recently Relevant to Health Maintenance Insurance MEDICAID RX [place] [employer] (INTERNAL) [facility] RX [employer] Medicaid RX [facility] [employer] Commercial GENERIC PAYOR [facility] HEALTH PLAN MEDICAID Advance Directives For more information, please contact: [phone] * Full Code (Latest Code Status on [...] 8:44 AM 10/23/2019 2:10 PM Care Teams Limehouse Worker Relationship Specialty [place] [address] [place] [phone] PCP - General Internal Medicine 11/05/18
--- OUTSIDE RECORDS SUMMARY | 2025-07-29 17:36 | XMS_ITS | Encounter Summary ---
Author Organization [facility] Address [address] [place] [address] Care Team Providers Care Promotion Writer Name Role Phone Key Tolliver MD Primary Care Provider [phone] Reason for Visit * Reason Comments Medication Refill Encounter Details Date Type Department Care Team ([facility] Contact Info) Description 11/05/2019 Refill [facility] Plastic Surgery and Burn [address] [address] Rodolfo Truong MD [address] [facility] [address] [place] [address] Social History Tobacco Use Types Packs/Day Years Used Date Smoking Tobacco: Never Smokeless Tobacco: Never Alcohol Use Standard Drinks/Week Comments No 0 (1 standard drink = 0.6 oz pur e alcohol) Comments No Sex and Gender Information Value Date Recorded Sex Assigned at Not on file Legal Sex Female 1:52 PM PULL UP HAND Gender Identity Not on file Sexual Orientation Not on file documented as of this encounter Plan of Treatment Upcoming Encounters Date Type Department Care Team (Late Contact Info) Description 12/24/2025 2:15 PM CDT Office Visit [facility] Oncology and Hematology - [place] [address] [facility] [address] [place] [address] Evan Willis MD [address] [facility] [address] [place] [address] documented as of this encounter Visit Diagnoses Not on filedocumented in this encounter Care Teams Promotion Writer Relationship Specialty Start Date End Date Key Tolliver MD [address] [place] [address] PCP - General Internal Medicine 11/05/18 documented as of this encounter
--- OUTSIDE RECORDS SUMMARY | 2025-07-29 17:36 | XMS_ITS | Clinical Summary ---
Author Organization [facility] Address [address] [place] [address] Care Team Providers Care Testing Projects Administrator Name Role Phone Key Tolliver MD [...] 20 tablet 5 Active lidocaine (LIDODERM) 5 %Indications:Pain Place 1 patch on the skin daily for 12 hours Use patch for 12 hours on, 12 hours off. Discard after each use 7 patch 5 Active cyclobenzaprine (FLEXERIL) 10 mg tablet Take 1 tablet (10 mg total) by mouth 3 (three) times a day as needed for muscle spasms for up to 30 doses 30 tablet 5 Active Active Problems Problem Noted Date Diagnosed Date Altered mental status 06/08/2025 Essential hypertension 12/08/2024 BAEZ (dyspnea on exertion) 12/08/2024 Hypercholesteremia 12/08/2024 Severe obesity 12/08/2024 Encounters Date Type Department Care Team Description 06/11/2025 4:25 PM CDT - 06/11/2025 4:42 PM CDT Emergency [facility] Emergency Department [address] [place] [address] Fall, 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Primary Dx); Acute right-sided low back pain with right-sided sciatica; Sprain of left ankle, unspecified ligament, initial encounter Discharge Disposition: Discharge to home or self care 06/09/2025 Results Follow-Up [facility] Neurology [address] [facility] [address] [place] [phone] Peggy Reid MA EEG 06/08/2025 2:28 PM CDT - 06/08/2025 11:59 PM CDT Hospital Encounter [facility] MRI [address] [place] [address] Altered mental status, unspecified altered mental status type Discharge Disposition: Discharge to home or self care 06/08/2025 1:13 PM CDT - 06/08/2025 11:59 PM CDT Hospital Encounter [facility] Cardiac Testing [address] [place] [address] Altered mental status, unspecified altered mental status type Discharge Disposition: Discharge to home or self care 05/27/2025 Telephone [facility] Neurology [address] [place] [phone] Linden Walter Si, MD Scheduling Appointments (CALL SCHEDULING ) 05/26/2025 1:30 PM CDT Office Visit [facility] Neurology [address] [place] [phone] Linden Walter Si, MD Altered mental status, unspecified altered mental status type (Primary Dx); Stuttering 05/14/2025 2:33 PM CDT - 05/14/2025 11:59 PM CDT Hospital Encounter [facility] [address] [place] [phone] Discharge Disposition: Discharge to home or self care 05/14/2025 2:33 PM CDT - 05/14/2025 11:59 PM CDT Hospital Encounter [facility] [address] [place] [phone] Discharge Disposition: Discharge to home or self care 05/14/2025 2:00 PM CDT Office Visit [facility] Orthopedics and Sports Medicine at [address] [phone] Jace Muller MD Pain in left foot (Primary Dx); Peroneal tendonitis of left lower leg from Last 3 Months Surgical History Surgery [...] on file 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 WILY: WILY Report ID: [id number] Reading Location: [place] [address] Procedure Note Naveen Dash MD - 06/11/2025 [...] Naveen Dash M.D. WILY: WILY Report ID: [id number] Reading Location: [id number] Rashawn Cloud NP IMG CT PROCEDURES Final Result * XR Ankle [...] Jose Chan M.D. KR: JAKE Report ID: [id number] Reading Location: [id number] Procedure Note Jose Chan MD - 06/11/2025 [...] Jose Chan M.D. KR: JAKE Report ID: [id number] Reading Location: [id number] Rashawn Cloud NP IMG XR PROCEDURES Final Result * MRI [...] by Rodolfo Tapia M.D. T: Report ID: [id number] Reading Location: [id number] Procedure Note Rodolfo Tapia, DO - 06/08/2025 EXAM DESCRIPTION: MRI BRAIN WO CONTRAST REASON FOR STUDY: Mental status change, unknown cause Pt is having episodes of dementia and acting like she is a child for pastfew months. PT doesn't recall episodes. They are per her daughter TECHNIQUE: Multiplanar imaging includes non-contrasted T1, T2, FLAIR, and diffusion with ADC map sequences. Additional sequence(s) sensitive [email or web address]. Images stored on PACS. COMPARISON: None available. [...] by Rodolfo Tapia M.D. T: Report ID: [id number] Reading Location: [id number] Linden Walter MD IM MRI PROCEDURES Final Result * EEG (06/08/2025 [...] observed. Correlation with clinical findings is needed. Linden Walter MD NEUROLOGY ORDERABLES Final Resul t * XR Foot Left 3 or More Views (05/14/2025 2:59 PM CDT) Anatomical Region Laterality Modality Lower Extremities, Foot Left Computed Radiography Narrative 05/14/2025 2:59 PM CDT Healed first TMT fusion, no talar plantar flexion or forefoot abduction Jace Muller MD IMG XR PROCEDURES Vivian l Result * XR Calcaneus Left 2 or More Views (05/14/2025 2:59 PM CDT) Anatomical Region Laterality Modality Lower Extremities, Foot Left Computed Radiography Narrative 05/14/2025 2:59 PM CDT Healed MDCO Jace Muller MD IMG XR PROCEDURES Vivian [...] agrees with it. ACC# Date Time Exam [id number] May 07, 2013 13:59:00 [facility] [id number] Bilateral Tomosynthesis Technologist(s): Ashley Batista; ; [id number] May 07, 2013 13:59:00 [facility] [id number] Diag Mammogram Bilateral Technologist(s): Ashley Batista; ; [id number] May 07, 2013 14:24:00 [facility] [id number] Sono Breast (Unilateral) L EXAMINATION: BILATERAL FULL [...] diagnostic mammogram and accompanying ultrasound performed at [facility] [place] on 04/28/2013. BREAST PARENCHYMAL COMPOSITION: Heterogeneously dense, [...] has been scheduled to return to the [facility] for an ultrasound-guided core needle biopsy of [...] agrees with it. ACC# Date Time Exam [id number] May 07, 2013 13:59:00 [facility] [id number] Bilateral Tomosynthesis Technologist(s): Ashley Batista; ; [id number] May 07, 2013 13:59:00 [facility] [id number] Diag Mammogram Bilateral Technologist(s): Ashley Batista; ; [id number] May 07, 2013 14:24:00 [facility] [id number] Sono Breast (Unilateral) L EXAMINATION: BILATERAL FULL [...] diagnostic mammogram and accompanying ultrasound performed at [facility] on 04/28/2013. BREAST PARENCHYMAL COMPOSITION: [...] has been scheduled to return to the [facility] for an ultrasound-guided core needle biopsy of [...] CDT PROCEDURE REPORT Patient: CHELA MCNULTY Account: [id number] Room No: 2619-01 : 1970 Patient Type: [...] On 07/04/2011 12:56:13 PM us Historical Provider ENDOSCOPY PROCEDURES Vivian l Result from Last 3 Months or Most Recently Relevant to Health Maintenance Insurance [facility] Care Teams Testing Projects Administrator Relationship Specialty Start Date End Date Key Tolliver MD [address] [place] [id number] PCP - General Internal Medicine 12/08/24
--- OUTSIDE RECORDS SUMMARY | 2025-07-29 17:36 | XMS_ITS | Encounter Summary ---
Author Organization [facility] Address [address] [place], [place] [address] Care Team Providers Care Head Boys Tennis Coach Name Role Phone Key Tolliver MD Primary Care Provider Reason for Visit * Reason Onset Date Comments Test Results 06/09/2025 Results MRI Brai n and EEG Encounter Details Date Type Department Care Team (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 No 06/11/2025 3:16 PM CDT Mikey Padron, RN * Question Answer Date of Assessment Author 1. In the past month, have you wished you were or that you could go to sleep and not wake up? No 06/11/2025 3:16 PM CDT Mikey Padron, RN 2. In the past month, have you actually had any thoughts of killing yourself? No 06/11/2025 3:16 PM CDT Mikey Padron, RN 6. Have you ever done anything, started to do anything, or prepared to do anything to end your life? No 06/11/2025 3:16 PM CDT Mikey Sosa RN * Suicide Risk Level Answer Date of Assessment Author No risk level 06/11/2025 3:16 PM CDT Mikey Velez RN * Fall Risk Assessment Tool - MEDFRAT Question Answer Date of Assessment Author Prior Fall Event (Autopopulated from EMR) None found 06/11/2025 3:17 PM CDT Mikey Rockwell, DARRON History of falling in last 3 months, including since admission 0 06/11/2025 3:17 PM Mikey Hartman RN Confusion or disorientation 0 06/11/2025 3: 17 PM Mikey Hartman, RN Intoxicated or sedated 0 06/11/2025 3:17 PM Mikey Hartman RN Impaired gait 0 06/11/2025 3:17 PM RALPHT Mikey Willis, RN Mobility assist device used 0 06/11/2025 3: 17 PM Mikey Hartman RN Altered elimination 0 06/11/2025 3:17 PM CD T Mikey Padron RN Fall risk score: (1-2 low risk), (3-4 moderate risk), (5 or more high risk) 0 06/11/2025 3:17 PM CDT Mikey Padron RN documented as of this encounter Mental Status * Question Answer Entry Date Author Delilah (ESTELLE) ESTELLE 06/11/2025 4:41 PM CDT Anjelica Langley, DARRON documented in this encounter Miscellaneous Notes * Telephone Encounter [...] on filedocumented in this encounter Care Teams Head Boys Tennis Coach Relationship Specialty Start Date End Date Key Tolliver MD [address] [address] PCP - General Internal Medicine 12/08/24 documented as of this encounter
--- OUTSIDE RECORDS SUMMARY | 2025-07-29 17:36 | XMS_ITS | Encounter Summary ---
Author Organization [facility] Address [address] [facility] [place] [address] Care Team Providers Care Regulatory Scientist Name Role Phone Key Tolliver MD Primary Care Provider Pablo Liriano MD Unavailable [phone] Evan Willis MD Unavailable [phone] Charles Kingston MD Unavailable Reason for Referral * PT/OT/ST (Routine) - Open Specialty Diagnoses / Procedures Referred By Contac t Referred To Contact Diagnoses Neck pain Hx of cervical spine surgery Lumbar pain Lumbar radiculopathy Yandel Petersen MD [address] [place] [address] Phone: tel: fax: Referral ID Status Reason Start Date Expiration Date V isits Requested Visits Authorized [id number] Open Specialty Services Required 07/29/2025 07/29/2026 1 1 CENTER TECHNICIAN Encounter Details Date Type Department Care Team (Late st Contact Info) Description 07/16/2025 Orders Only [facility] - Orthopedics [address] [facility], [place] [address] Myriam Roman, DARRON Neck pain ; Hx of cervical spine surgery; Lumbar pain; Lumbar radiculopathy Social History Tobacco Use Types Packs/Day Years [...] on file Legal Sex Female 11:46 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 Gender Identity Not on file Sexual Orientation [...] Haylie Quijano RN documented in this encounter Miscellaneous Notes * Addendum Note - Myriam Roman RN - 07/29/2025 12:12 PM CSTAddended by: MYRIAM ROMAN on: 07/29/2025 12:12 PM Modules accepted: Orders CENTER TECHNICIAN documented in this encounter Plan of Treatment Upcoming Encounters Date Type Department Care Team (Latest Contact Info) Description 09/09/2025 11:15 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 Office Visit [facility] - Orthopedics [address] [place] [address] Yandel Petersen MD [address] [place] [address] 10/14/2025 7:20 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 Hospital Encounter [facility] [address] [place] [address] Mariano Guzmán MD [address] [place] [address] Surgery General 10/14/2025 7:20 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 - 10/14/2025 9:08 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 Surgery [facility] [address] [place] [address] Mariano Guzmán MD [address] [place] [address] ARTHROSCOPY SHOULDER BICEP TENODESIS, DEBRIDEMENT 10/22/2025 2:40 PM DATA CENTER TECHNICIAN Office Visit [facility] - Orthopedic Surgery [address] [place] [phone] Mariano Guzmán MD [address] [place] [address] 03/11/2026 2:00 PM CDT Office Visit [facility] - Rheumatology [address] [place] [address], [place] [address] Ev Lowery MD [address] [place] [address] [address] [place] [address] Scheduled Procedures Name Priority Associated Diagnoses Date/Ti me ARTHROSCOPY SHOULDER BICEP TENODESIS Chronic pain in right shoulder Biceps tendinitis of right shoulder 10/14/2025 7:20 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 Scheduled Referrals Name Type Priority Associated Diagnoses Orde r Schedule AMB REFERRAL TO PHYSICAL THERAPY Outpatient Referral Routine Neck pain Hx of cervical spine surgery Lumbar pain Lumbar radiculopathy 1 Occurrences starting 07/29/2025 until 07/16/2026 documented as of this encounter Goals Goal Patient Goal Type Associated Problems Recent Progress Patient-Stated? Author Mobility General Improving( 1:50 PM CDT) No Coreen Muñoz, DARRON Note: Expected end date: 12/01/2020 The goal is to maintain or improve your mobility at the optimum level for you. Interventions: Mobility General Worsening( 1:20 PM DATA CENTER TECHNICIAN) No Lilo Kaminski, DARRON Note: Expected end date: 11/17/2019 The goal is to maintain or improve your mobility at the optimum level for you. Interventions: PAIN General No Shira Sun, DARRON Note: Expected end date: 01/18/2020 Patient's pain/discomfort is manageable. Interventions: documented as of this encounter Visit Diagnoses Diagnosis Neck pain- Primary Cervicalgia Hx of cervical spine surgery Personal history of surgery to other organs Lumbar pain Lumbago Lumbar radiculopathy Thoracic or lumbosacral neuritis or radiculitis, unspecified Biceps tendinitis of right shoulder- Primary Chronic pain in right shoulder Pain in joint, shoulder region Chronic pain in right shoulder Pain in joint, shoulder region Biceps tendinitis of right shoulder documented in this encounter Care Teams Regulatory Scientist Relationship Specialty Start Date End Date Key Tolliver MD [address] [place], [place] [id number] PCP - General 10/22/18 Pablo Liriano MD [address] [place] [id number] Orthopedic Surgery 05/22/19 Evan Willis MD [address] [place] [id number] Medical Oncologist Medical Oncology 11/02/21 Charles Kingston MD [address] [place] [phone] Non Linear Editor Cardiology 11/03/21 documented as of this encounter
--- OUTSIDE RECORDS SUMMARY | 2025-07-29 17:36 | XMS_ITS | Data Portability ---
Author Organization [place] [employer], Main Office Address [address] [place] [address] Care Team Providers Care Customer Accounts Advisor Name Role Phone KEY AMARO Primary Care Provider [phone] KEY AMARO Referring Provider Assessment Encounter Date Assessment Date Assessment LastModified by Organization Details LastModified Time 01/06/2025 01/06/2025 Assessment: Mild atelectasis Methacholine (+) mild persistent asthma Mild OSHS, HI = 2 Plan: The following were reviewed and explained to the patient: [facility] diagnostic sleep study 06/24/14 sleep onset = 2.5 minutes, REM onset = 75.5 minutes, AHI = 10, supine AHI = 13, REM AHI = 47, PLMI = 0.0 [facility] titration sleep study 07/13/14 sleep [...] were reviewed and explained to the patient: [facility] diagnostic sleep study 06/24/14 sleep onset = 2.5 minutes, REM onset = 75.5 minutes, AHI = 10, supine AHI = 13, REM AHI = 47, PLMI = 0.0 [facility] titration sleep study 07/13/14 sleep [...] further management. Follow-up: 6 months, October 2025 [facility] [place] Not available 04/08/2025 15:55:39 Plan of Treatment Reminders Order Date Submit Date Provider Last Modified By Organization Details Last Modified Time Details Appointments Any 30 2025 01:00P Cory Conteh MD Not available Not available Not available Lab None recorded. Referral None recorded. Procedures None recorded. Surgeries None recorded. Imaging XR, tibia + fibula 2024 025 [facility] [place], [address], [place], [address], 02/05/2025 08:21:09 Medication Orders albuterol sulfate HFA 90 mcg/actua tion aerosol inhaler [address] [facility] #[id number], [address] [place], [place], [id number], 04/08/2025 15:47:30 Flovent HFA 110 mcg/actua tion aerosol inhaler 2024 [id number] [address] [place], [place], [id number], 04/08/2025 15:47:35 meloxicam 15 mg tablet 2024 025 [facility] #[id number], [address] [place], [place], [id number], 04/08/2025 15:09:53 albuterol sulfate HFA 90 mcg/actua tion aerosol inhaler 2024 025 [email or web address] [facility] #51924, [address] [place], [place], [id number], 02/04/2025 15:12:53 Flovent HFA 110 mcg/actua tion aerosol inhaler [address] [facility] #39712, [address] [place], [place], [id number], 01/06/2025 14:29:35 Patient TargetsNo targets recorded. Patient Instructions Encounter Date Encounter Id Patient Instructions Last Modified By Organization Details Last Modified Time 02/19/2025 [id number] we will start wi th a sinus CT. Not available 02/19/2025 14:47:45 04/08/2025 [id number] complete PFT w/ post bronchodilator spirometry* Not available 04/08/2025 15:47:25 05/14/2025 [id number] we have recommended a bite split but [...] fibul a No observ ation record ed. [email or web address] [facility] [place] [address], [place], [address], 02/04/2025 15:17:14 03/05/20 25 03/05/2025 CT, maxil lofac ial, w/o contr ast [facility] [address] [address] Patien t Name: CHELA SUMNER Access ion #: [id number] Sex: F : 1969 7 Dictat ed By: Ankur butt Attend ing Physic kathi: HONEY DUMONT [facility] kathi: TIM EVANS Exam Date: [...] Ankur butt at 2024 13:49: [address] (Imaging) [address] [place], [address], 03/09/2025 16:07:00 03/05/20 25 03/05/2025 CT, sinus es, w/o contr ast No observ ation record ed. [address] ([employer]) [address] [place], [address], 03/05/2025 16:19:53 03/31/20 25 03/05/2025 CT, sinus es, w/o contr ast No observ ation record ed. [address] ([employer]) [address] [place], [address], 03/31/2025 16:14:00 Result Notes Documentation Provider Name and Address Organization Details Recorded Time Ct, Maxillofacial, W/o Contrast : [facility] [address] [place] [address] Patient Name: CHELA MCNULTY Sex: F : [...] 03/05/2025 13:49 Bert Pascual Mel Olsen RN [facility], [employer] 03/09/2025 16:07:00 Problems Name Problem SNOMED Code Status Onset Date Resolution Date Notes Provider Name and Address Organization Details Recorded Time Lupus erythematos 557046668 Active MD [address], [place], [address], [employer] [facility] 17:07:42 Osteoarthri tis of knee 100252369 Active Vinnie Conteh MD [address], [place], [address], [employer] 5 17:07:39 Hypertensiv e disorder 98771084 Active MD [address], [place], [address], [employer] 5 17:07:47 Hypothyroid ism 56898366 Active Vinnie Conteh MD [address], [place], [address], [facility] 5 17:07:45 Trigger finger of right hand 6356254799080 9101 Active 2019 MD [address], [place], [address], [facility] 5 17:07:35 History of total knee arthroplast y 9106307298915 Active 2019 MD [address], [place], [address], [facility] 5 17:07:50 Trigger finger of left hand 3929297770769 9107 Active 2020 Vinnie Conteh MD [address] [place] [address] [address], [place], [address], [employer] 5 17:07:37 Acquired bilateral pes planus 3609027904301 9109 Active 2021 Vinnie Conteh MD [address], [place], [address], [employer] 5 17:07:56 Urge incontinenc e of urine 92346918 Active 2022 Vinnie Conteh MD [address], [place], [address], [facility] 5 17:08:10 Gastroesoph ageal reflux disease without esophagitis 974598993 Active 2022 Vinnie Conteh MD [address] [place] [address] [address], [place], [address], [facility] 5 17:07:54 Mild persistent asthma 671744141 Active 2024 Vinnie Conteh MD [address], [place], [address], [facility] 5 17:07:41 Pain of right temporomand ibular joint 3200387553411 9107 Active 2024 Tim Bella MD [address] [employer], [place], [address], [facility] 5 16:46:36 Notes:Medical History: Depre ssion/Anxiety COVID [...] knee revision 2024 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 Procedures Surgical History Date Name Laterality Status Provider Name and Address Organization Details Recorded Time 10/04/19 appendectomy completed Opal White [facility] [employer] [facility] 02/04/2025 15:14:33 Hysterectomy completed Not Available [facility] 11/01/2022 09:13:16 Rotator cuff surgery completed Not Available [facility] 11/01/2022 09:13:16 Knee Replacement completed Not Available [facility] 11/01/2022 09:13:16 Carpal tunnel surgery completed Not Available [facility] 11/01/2022 09:13:16 excision of bilateral breasts completed Not Available [facility] 09:13:16 Foot Surgery completed Not Available [facility] 11/01/2022 09:13:16 Endoscopy completed Not Available [place] [address] 11/01/2022 09:13:16 colonoscopy completed Not Available [facility] 11/01/2022 09:13:16 Breast Implants completed Payton fernández MA [facility] [employer] [facility] 09/24/2024 15:15:52 total shoulder [facility] [employer] [facility] 02/04/2025 15:15:03 Spinal Fusion completed Opal White [facility] [employer] [facility] 02/04/2025 15:15:23 tonsillectomy completed Mel Olsen RN [facility] [employer] [facility] 02/19/2025 14:31:25 Imaging Results None recorded. Procedure Notes None recorded. Medical Equipment None Reported. Allergies Allergen ID Allergen Name Allergen Category Reaction Reaction Severity Criticality Documentation Date Start Date Code Code System Note Provider Name and Address Organization Details Recorded Time 19750 adhesive tape environme nt,medica tion Not available Not available Not available 04/28/2024 ITCHI NG, RED Mel Olsen RN [facility] [employer] [facility] 14:32:13 34429 Adhesive agent (substanc e) environme nt,medica tion rash Not available low 07/27/20252016 91195 0007 SNOMED Not Available [facility] - External Data Service - prod 5 08:58:51 19098 [employer] liane medicatio n itching Not available high 07/27/2025 3423 RxNorm React ion: ITCHI NG Not Available [facility] - External Data Service - prod 5 08:59:44 94352 morphine medicatio n itching Not available high 07/27/2025 7052 RxNorm React ion: ITCHI NG Not Available [place] - External Data Service - prod 5 08:59:44 Medications Name Sig Start Date Stop Date [...] administe red by the provider 01/03 completed [facility]: 0003- 0494- 20 Not Available Not Available [...] glycol 3350 17 gram/dose oral powder FOLLOW OFFICE DIRECTION S active Not Available Not Available No t Available levofloxaci n 500 mg tablet active [...] administe red by the provider 01/03 completed [facility]: 0409- 4276- 17 Not Available Not Available [...] Conteh MD [address], [place], [address], [facility] [employer] [facility] 01/06/2025 14:20:35 Date Recorded Body height Body mass index (BMI) Body weight Body temperature Oxygen saturation Systolic And Diastolic Provider Name and Address Organization Details Last Updated DateTime 165.1 cm 38.1 kg/m2 918095. 65 g 98.5 [degF] 96 % 138/82 mm[Hg] Janet Zimmer MA [facility] [employer] [facility] 14:10:00 Date Recorded Body height Body mass index (BMI) Body weight Provider Name and Address Organization Details Last Updated DateTime 02/04/2025 165.1 cm 38.3 kg/m2 362340.25 g Opal White [facility] [employer] [facility] 02/04/2025 15:11:41 Date Recorded Body height Body mass index (BMI) Body weight Body temperature Provider Name and Address Organization Details Last Updated DateTime 02/19/2025 165.1 cm 38.6 kg/m2 871933.43 g 98 [degF] Mel Olsen RN [facility] [employer] [facility] 02/19/2025 14:36:46 Date Recorded Heart rate Respiratory rate Provider N josette and Address Organization Details Last Updated DateTime 04/08/2025 77 /min 14 /min Vinnie Conteh MD [address], [place], [address], [facility] 04/08/2025 15:55:15 Date Recorded Body height Body mass index (BMI) Body weight Body temperature Heart rate Oxygen saturation Systolic And Diastolic Provider Name and Address Organization Details Last Updated DateTime 165.1 cm 38.8 kg/m2 830651. 02 g 98 [degF] 77 /min 96 % 124/82 mm[Hg] Payotn Bryson MA [facility] 15:14:26 Date Recorded Body height Body mass index (BMI) Body weight Body temperature Provider Name and Address Organization Details Last Updated DateTime 05/14/2025 165.1 cm 38.3 kg/m2 354375.25 g 97.7 [degF] Mel Olsen RN [facility] 05/14/2025 16:37:15 Social History Question Answer Notes LastModified by Organizat ion Details LastModified Time Tobacco Smoking Status Never Smoker Not Available [facility] 11/01/2022 09:13:04 Do You Have An Advance Directive? No [id number] Information not available 11/01/2022 What Is Your Level Of Caffeine Consumption? None [id number] Information not available 11/01/2022 In The 14 Days Before Symptom Onset, Have You Had Close Contact With A Laboratory-confirm ed COVID-19 While That Case Was Ill? No [id number] Information not available 11/01/2022 In The 14 Days Before Symptom Onset, Have You Had Close Contact With A Person Who Is Under Investigation For COVID-19 While That Person Was Ill? No [id number] Information not available 11/01/2022 What Type Of Diet Are You Following? REGULAR [id number] 026 Information not available 11/01/2022 Do You [...] available 04/28/2024 What Is Your Relationship Status? [id number] Information not available 11/01/2022 Do You [...] Has Tobacco Cessation Counseling Been Provided? No [id number] 026 Information not available 11/01/2022 Have You Recently Traveled Abroad? No [id number] 026 Information not available 11/01/2022 Sex: Female Functional Status Question Answer Note LastModified by Organizat ion Details LastModified Time Do you use any illicit or recreational drugs? No [id number] Information not available 11/01/2022 Do you or have you ever used any other forms of tobacco or nicotine? No [id number].[id number] 026 Information not available 11/01/2022 What is your level of alcohol consumption? None [id number].[id number] 026 Information not available 11/01/2022 Are you currently employed? No Information not available 04/28/2024 Have you been exposed to chemicals or toxins? No not that aware of [email or web address] Information not available 01/06/2025 What is your exercise level? None [id number] 026 Information not available 11/01/2022 Mental Status Question Answer Note LastModified by Organization D etails LastModified Time Do you feel stressed (tense, restless, nervous, or anxious, or unable to sleep at night)? [id number] Information not available 04/28/2024 Family History Relationship Description Onset Age of this Age Resolved Age Notes LastModified by Organization Details LastModified Time Maternal Grandmother Heart disease [id number] Not available 11/01/2022 09:13:17 Maternal Aunt Heart disease [id number].261 [id number] Not available 11/01/2022 09:13:17 Father Migraine Not [...] ) Y BOWEL PROBLEMS N STROKE/TIA N ULCERS N KNEE PAIN N [...] FOOT PROBLEM N HEART VALVE DISORDERS N SOFT TISSUE INJURY N ALLERGIES/HAYFEVER N INFECTIOUS DISEASE N HEART ARRHYTHMIA N INSOMNIA N RHEUMATOID ARTHRITIS N HIGH CHOLESTEROL / HYPERLIPIDEMIA N EDEMA N CHRONIC PAIN SYNDROME N CAROTID BLOCKAGE N BACK / NECK PROBLEMS N HAVE YOU BEEN HOSPITALIZED OR SEEN IN [facility] IN THE PAST YEAR ? N BURSITIS [...] ICD10 Code Diagnosis IMO Codes Diagnosis Note [id number] Ankur Espinal MD [facility] [place] [address] [place] [address] 01/25/2021 00:00:00 01/25/2021 16:40:12 [id number] Ankur Espinal MD [facility] [place] [address] [place] [address] 04/05/2021 00:00:00 04/05/2021 14:39:42 [id number] Ankur Espinal MD [facility] [place] [address] [place] [address] 04/12/2021 00:00:00 04/12/2021 15:46:41 [id number] Ankur Espinal MD [facility] [place] [address] [place] [address] 04/19/2021 00:00:00 04/19/2021 14:45:42 [id number] Ankur Espinal MD [facility] [place] [address] [place] [address] 05/17/2021 00:00:00 05/31/2021 09:08:02 [id number] _ATHN_MIGR ATION_1 _ATHENA_M IGRATION_ DEFAULT_1 _1 , 06/15/2021 00:00:00 06/15/2021 15:14:16 [id number] Ankur Espinal MD [facility] [place] [address] [place] [address] 06/21/2021 00:00:00 06/21/2021 14:32:55 [id number] Ankur Espinal MD [facility] [place] [address] [place] [address] 08/02/2021 00:00:00 08/08/2021 14:20:31 [id number] Ankur Espinal MD [facility] [place] [address] [place] [address] 09/15/2021 00:00:00 09/15/2021 14:30:27 [id number] Ankur Espinal MD [facility] [place] [address] [place] [address] 11/17/2021 00:00:00 11/17/2021 15:28:48 [id number] [facility] [place] [address] [place] [address] 12/01/2021 00:00:00 12/01/2021 18:07:39 [id number] Ankur Espinal MD [facility] [place] [address] [place] [address] 01/03/2022 00:00:00 01/03/2022 17:30:11 [id number] [facility] [place] [address] [place] [address] 01/26/2022 00:00:00 01/27/2022 07:31:45 [id number] [facility] [place] [address] [place] [address] 02/02/2022 00:00:00 02/03/2022 09:58:36 [id number] [facility] [place] [address] [place] [address] 03/23/2022 00:00:00 03/24/2022 10:00:09 [id number] Ankur Espinal MD [facility] [place] [address] [place] [address] 04/04/2022 00:00:00 04/04/2022 15:46:20 [id number] Ankur Espinal MD [facility] [place] [address] [place] [address] 06/29/2022 00:00:00 06/29/2022 13:11:09 [id number] Ankur Espinal MD [facility] [place] [address] [place] [address] 09/07/2022 00:00:00 09/07/2022 14:14:38 [id number] Ankur Espinal MD [facility] [place] [address] [place] [address] 11/02/2022 14:09:04 11/02/2022 15:07:21 Low back pain 961610991 M54.50 Mechanical complication of implant 711943216 T85.698D Knee joint painful on movement 899837741 M25.569 Spinal hernan nosis of lumbar region 58645992 M48.061 History of left total knee replacement 8143490599 418616 Z96.652 History of right total knee replacement 8582422464 570072 Z96.651 Pain of ri ght shoulder joint 5030120127 4887943 M25.511 Tendinitis of right rotator cuff 5760601621 0948752 M67.813 [id number] Scott Lucas MD [facility] Urology [address] [facility] [address] [place] [address] 12/11/2022 14:05:05 12/11/2022 14:38:46 Urge incontinence of urine 00487110 N39.41 Negative ua, low residual, went over options, will try Gemtesa 75 mg a day. [id number] Henna Wilson MD [facility] General Surgery [address] [place] [address] 03/14/2023 15:49:07 04/04/2023 13:12:05 Gastroesophageal reflux disease without esophagitis 013204038 K21.9 [id number] Ankur Espinal MD [facility] [place] [address] [place] [address] 03/29/2023 13:07:35 03/29/2023 13:36:11 Low back pain 286645189 M54.50 History of bilateral total knee replacement 3952323663 207984 Z96.653 Bilateral sacroiliac joint pain 4531797711 1983311 M53.3 [id number] Henna Wilson MD [facility] General Surgery [address] [place] [address] 05/16/2023 15:06:28 05/16/2023 15:28:25 Gastroesophageal reflux disease without esophagitis 254749524 K21.9 [id number] Ankur Espinal MD [facility] [place] [address] [place] [address] 05/17/2023 13:06:34 05/17/2023 14:32:54 Pain of right knee joint 9754524146 14860 M25.561 History of bilateral total knee replacement 0867457003 767390 Z96.653 History of right total knee replacement 6215561994 947250 Z96.651 Mechanical complication of implant 212675230 T85.698A T84.039A [id number] Ankur Espinal MD [facility] [place] [address] [place] [address] 05/22/2023 14:43:07 05/22/2023 15:21:27 History of total knee arthroplasty 7194502045 105 Z96.457 [id number] Henna Wilson MD [facility] Surgery [address] [place] [address] 02/06/2024 14:11:19 02/06/2024 14:44:49 Gastroesophageal reflux disease without esophagitis 131073070 K21.9 [id number] Vinnie Conteh MD [address] [address] 04/28/2024 10:17:28 04/29/2024 08:48:30 Dyspnea on exertion 06504110 R06.09 R05.9 T78.40XA D89.9 C50.912 J43.9 [id number] Vinnie Conteh MD [facility] [address] [address] 06/25/2024 10:05:36 06/25/2024 12:53:26 Mild intermittent asthma 830435984 J45.20 [id number] Vinnie Conteh MD [facility] [address] [place] [address] 09/24/2024 15:04:24 09/29/2024 14:54:32 Mild persistent asthma 403052171 J45.30 [id number] Vinnie Conteh MD [facility] [address] [place] [address] 10/07/2024 11:33:54 10/07/2024 14:07:21 Mild persistent asthma 702040149 J45.30 [id number] Henna Wilson MD [facility] [place] [address] [place] [address] 10/22/2024 12:27:09 10/22/2024 12:56:20 Gastroesophageal reflux disease without esophagitis 512945873 K21.9 Liver enzy mes level above reference range 764254721 R74.01 Epigastric pain 61775518 R10.13 [id number] Henna Wilson MD [facility] [place] Surgery [address] [place] [address] 11/05/2024 15:28:46 11/05/2024 16:20:13 Gastroesophageal reflux disease without esophagitis 051350656 K21.9 Liver enzy mes level above reference range 141960527 R74.01 Epigastric pain 65328109 R10.13 OUT OF PROPORTION WITH EXAM. [id number] Vinnie Conteh MD [facility] [place] [facility] [address] [place] [address] 01/06/2025 13:57:27 01/06/2025 14:40:37 Mild persistent asthma 479388017 J45.30 [id number] Yadiel Guzman MD [facility] [place] [address] [place] [address] 02/04/2025 14:57:59 02/04/2025 16:01:27 Pain of right lower leg 4661939481 08064 M79.108 [id number] Tim Bella MD [facility] [place] [address] [place] [address] 02/19/2025 14:21:47 02/20/2025 07:58:13 Chronic sinusitis 37642669 J32.9 412709231 [id number] Vinnie Conteh MD [facility] [address] [facility] [address] [place] [address] 04/08/2025 14:56:06 04/08/2025 18:27:16 Mild persistent asthma 197719713 J45.30 [id number] Tim Bella MD [facility] [place] [address] [place] [address] 05/14/2025 16:31:42 05/15/2025 08:40:45 Pain of right temporomandibular joint 6514674115 0779458 M26.621 [id number] Health Concerns Section Related Observation LastModified by Organization Detai ls LastModified Time None Recorded Concern Status LastModified by Organization Details LastModified Time None Recorded Advance Directives Directive N: Payers Insurance Date Sequence Insurance Name Policy Number Policy Casarez Covered Member ID Casarez Member ID Guarantor Name 07/01/2025 1 [facility] ON OR AFTER 03/03/21 (MEDICAID REPLACEMENT - HMO) Chela Mcnulty [id number] Chela Mcnulty Notes Date Note Type Note [...] staircase, wipingAlleviating factors: rest Modified [employer] ([employer]) Dyspnea Scale - Grade 2Grade 0 [...] dozing. Vinnie Conteh MD [address], [place], [address], [facility] [employer] [facility] 01/06/2025 14:34:38 02/19/2025 text/html this patient reports a history of sinus surgery in 1999. Currently she has sinus congestion and facial pressure. This is mostly on the right side. She also has headaches. She has had some right ear pain as well. This has been going on for over a year Tim Bella MD [address], [place], [address], [facility] [employer] [facility] 02/19/2025 14:48:14 04/08/2025 text/html Primary care/Referring provider: [...] staircase, wipingAlleviating factors: rest Modified [employer] ([employer]) Dyspnea Scale - Grade 2Grade 0 [...] HFA 44 mcg 2 puffs BID 09/2024-01/2025Flovent WVH747 mcg 2 puffs BID since 01/2025 Other [...] dozing. Vinnie Conteh MD [address], [place] [address], [place], [address], [employer] 04/08/2025 15:56:30 05/14/2025 text/html the CT scan was normal and the patient continues to report pain with chewing on the right side. Discussed her hearing but she insists that her hearing is normal. Tim Bella MD [address], [facility] [address], [place], [address], [email or web address] 05/14/2025 16:47:30 OBGyn Episode No OBEpisode recorded."
--- OUTSIDE RECORDS SUMMARY | 2025-07-29 17:36 | XMS_ITS | Encounter Summary ---
Author Organization [facility] Address 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 Gender Identity Not on file Sexual Orientation [...] Description 12/24/2025 2:15 PM CDT Office Visit [facility] Oncology and Hematology - [place] [address] [place] [address] Evan Willis MD [address] [facility] [address] [place] [address] documented as of this encounter Visit Diagnoses Diagnosis Malignant neoplasm of upper-outer quadrant of left breast in female, estrogen receptor positive (CMS/HCC) documented in this encounter Care Teams Wire Setter Relationship Specialty [place] [address] [place] [address] PCP - General Internal Medicine 11/05/18 documented as of this encounter
--- OUTSIDE RECORDS SUMMARY | 2025-07-29 17:36 | XMS_ITS ---
Author Organization [facility] Address [address] [place] [address] Care Team Providers Care Business Manager Name Role Phone Key Tolliver MD Primary Care Provider Pablo Liriano MD Unavailable Evan Willis MD Unavailable [phone] Charles Kingston MD Unavailable Active Problems [...] feet 12/01/2021 05/03/2023 Orthopedic hardware present 12/01/2021 08/3 09/2022 Foot pain 12/01/2021 05/03/2023 Pain of both sacroiliac joints 06/21/2021 0 05/03/2023 Pain of right sacroiliac joint 06/21/2021 0 05/03/2023 Infectious disease contact 04/27/2021 Other viral disease contact 04/27/2021 0809/2022 Contact with and (suspected) exposure to other viral communicable diseases 04/27/2021 08/09/2023 Trigger finger of left hand 04/19/2021 083 09/2022 Family history of stroke 03/30/2021 Family history of hypertension 03/30/2021 Family history of hyperlipidemia 03/30/2021 Atherosclerotic heart diseas [place] coronary artery without angina pectoris 03/30/2021 Chest [...] thigh 03/25/2020 Recurrent dislocation of shoulder region 07/23/2 020 Spinal stenosis of lumbar region 03/25/2020 [...]
--- NOTE | 2025-07-29 17:54 | ED.GIBLEED ---
HPI - GI Bleed General Chief complaint: GI Bleed Stated complaint: lower pelvic pain, rectal pain and bleeding Time Seen by Provider: 07/29/25 17:40 History of Present Illness HPI Narrative: Patient is a 55-year-old female who presents to the ER with significant lower abdominal pain associated with bright red rectal bleeding. She reports her symptoms started about 3 days ago but they worsened today. Patient reports she has never experienced this before. She endorses a history of breast cancer 12 years ago, cholecystectomy, and appendectomy. According to patient's chart she has a history of anal fissures. She denies any recent fevers, urinary symptoms, or acute back pain. Related Data Home Medications ?Medication ?Instructions ?Recorded ?Confirmed ?Last Taken ?Type venlafaxine 225 mg tablet,extended 225 mg PO QAM 10/13/19 07/28/25 07/27/25 History release 24 hr famotidine 20 mg tablet 20 mg PO QAM 10/11/23 07/28/25 07/27/25 History nifedipine 30 mg tablet,extended 90 mg PO QAM 10/11/23 07/28/25 07/28/25 History release albuterol sulfate 90 mcg/actuation 2 puff inhalation Q4-6H PRN 09/16/24 07/28/25 07/27/25 History aerosol inhaler shortness of breath or wheezing omeprazole 40 mg capsule,delayed 40 mg PO QAM 09/16/24 07/28/25 07/27/25 History release losartan 25 mg tablet 25 mg PO DAILY 07/28/25 07/28/25 07/27/25 History metoprolol succinate 100 mg 100 mg PO DAILY 07/28/25 07/28/25 07/28/25 History tablet,extended release 24 hr trazodone 150 mg tablet 150 mg PO QHS 07/28/25 07/28/25 07/27/25 History Allergies Allergy/AdvReac Type Severity Reaction Status Date / Time meperidine AdvReac Severe HEADACHE Verified 07/29/25 17:43 scopolamine AdvReac Severe Headache Verified 07/29/25 17:43 adhesive tape AdvReac Unknown Rash, Verified 07/29/25 17:43 REDNESS, BURNING silver (From Tegaderm AG AdvReac BLISTER/REDNESS Verified 07/29/25 17:43 Mesh) AT SITE Review of Systems Review of Systems: All systems reviewed & are unremarkable except as noted in HPI and below PMFSH Past Medical History Medical History History of breast cancer s/p bilateral mastectomy, chemo, radiation Hypothyroidism, unspecified hx of, no longer on medications Hearing loss Gastroesophageal reflux disease History of revision of total replacement of right knee joint Systemic lupus erythematosus Eczema Pancreatitis COPD (chronic obstructive pulmonary disease) Asthma Migraines Iron deficiency anemia History of blood transfusion. Hypertension Depression Sepsis Surgical History Surgical History History of knee replacement procedure of right knee History of knee surgery 11/08/23- Rev right TKA History of hysterectomy History of repair of right rotator cuff Status post trigger finger release History of fusion of cervical spine Status post transverse rectus abdominis muscle flap breast reconstruction History of endoscopic sinus surgery History of bilateral mastectomy History of appendectomy History of cholecystectomy History of carpal tunnel release Port-A-Cath in place Family History Family History Other Family history of malignant neoplasm Hypertension Social History Social History Social History: Surrogate medical decision maker: Domingo Mcnulty, spouse. Code status: Full code. Smoking status: Never smoker Second hand tobacco smoke exposure: No Additional smoking assessment comments: chewed tobacco occassionally as a teen Alcohol intake: never Substance use: never Substance use type: does not use Lack of Transportation: No Lack of Food: Never True Current Housing: I Have Housing Concerned About Future Housing: No Difficulty Paying Gas/Electric Bills: No Difficulty Paying for Meds: No Currently Unemployed: No Education: Decline to Answer Difficulty w/ Childcare or Family Care: No Living arrangements: with family Additional living arrangements comments: HUSB Occupation/Education: unemployed Spiritual care concerns: No Exam Narrative: GENERAL: Ill appearing, well-nourished, non-toxic, in mild distress d/t pain. HEAD: Normocephalic, atraumatic. NECK: Supple. No adenopathy, no masses. RESPIRATORY: Airway patent, respirations nonlabored. Clear to auscultation bilaterally, no rales, rhonchi, wheezing. CARDIOVASCULAR: Regular rate and rhythm without murmurs, rubs, or gallops. Peripheral pulses 2+ and equal bilaterally. ABDOMINAL: Soft, lower quadrant tenderness with palpation, nondistended, no hepatosplenomegaly. Normoactive BS. MUSCULOSKELETAL: Moves all extremities. Strength/ROM intact without gross deformities. SKIN: Warm, dry, normal color. No rashes. NEURO: A&O X3. Speech clear. Cranial nerves II-XII intact. No ataxic movements. PSYCHIATRIC: Appropriate mood and affect. Normal interaction. GI/: negative hemoccult, one visible external hemorrhoid, one palpable internal hemorrhoid Course Vital Signs Vital signs: Vital Signs Temperature 36.4 C L 07/29/25 17:40 Pulse Rate 97 07/29/25 17:40 Respiratory Rate 20 07/29/25 17:40 Blood Pressure 169/99 H 07/29/25 17:40 Pulse Oximetry 100 07/29/25 17:40 Oxygen Delivery Room Air 07/29/25 17:40 Temperature 36.6 C 07/29/25 19:33 Pulse Rate 87 07/29/25 19:33 Respiratory Rate 16 07/29/25 19:33 Blood Pressure 110/64 07/29/25 19:33 Pulse Oximetry 98 07/29/25 19:33 Oxygen Delivery Room Air 07/29/25 19:33 MDM - GI Bleed MDM Narrative Medical decision making narrative: Patient is a 55-year-old female who presents to the ER with significant lower abdominal pain associated with bright red rectal bleeding. She reports her symptoms started about 3 days ago but they worsened today. Patient reports she has never experienced this before. She endorses a history of breast cancer 12 years ago, cholecystectomy, and appendectomy. According to patient's chart she has a history of anal fissures. She denies any recent fevers, urinary symptoms, or acute back pain. Labs Ordered: CBC, CMP, lipase, UA, PTT, INR, magnesium Imaging Ordered: CTA abdomen pelvis Medications Ordered: 1 L normal saline IV bolus, morphine 4 mg IV, Zofran 4 mg IV, Reglan 10 mg IV, Benadryl 25 mg IV Results: Patient's CT scan indicates No acute findings in the upper abdomen and pelvis. No active extravasation of arterial contrast within the bowel. 2. Fecal impaction of the sigmoid. 3. Hepatomegaly with fatty liver. Diagnosis: Rectal impaction, abdominal pain Patient Education/Shared MDM: Results of lab work and imaging shared with patient. She was offered a soapsuds enema here in the ER but declined and reports she would rather do it herself at home. Patient strongly advised to maintain hydration status upon discharge and follow-up with her PCP as needed. She will be discharged home with a prescription for Zofran ODT, enema, and Miralax. Strict return precautions provided. Patient verbalized understanding and is in agreement with plan. Vital signs stable at time of discharge. All questions answered. Differential Diagnosis Differential diagnosis: Likely hemorrhoids, Lower gastrointestinal hemorrhage, hematochezia and anal fissure Lab Data Attestation: I reviewed the patient's lab results. 07/29/25 18:30 07/29/25 18:42 Labs: Lab Results 07/29/25 07/29/25 Range/Units 18:30 18:42 WBC 8.8 (4.5-10.0) K/mm3 RBC 4.71 (4.2-5.4) M/mm3 Hgb 12.9 (12.0-15.0) g/dL Hct 39.6 (37.0-47.0) % MCV 84.1 (80-100) fl MCH 27.4 (26-34) pg MCHC 32.6 (32-36) g/dl RDW 14.4 (11.5-14.5) % Plt Count 269 (150-375) k/mm3 MPV 8.0 (7.4-10.4) fl Immature Gran % (Auto) 0.5 (0-0.5) % Neut % (Auto) 45.0 L (45.5-73.1) % Lymph % (Auto) 45.0 H (18.3-44.2) % Mchenry % (Auto) 8.0 (2.6-8.5) % Eos % (Auto) 1.0 (0-4.4) % Baso % (Auto) 0.5 (0.2-1.2) % Lymph # (Auto) 3.94 H (0.9-3.2) K/mm3 Mchenry # (Auto) 0.7 H (0.1-0.6) K/mm3 Eos # (Auto) 0.1 (0-0.3) K/mm3 Baso # (Auto) 0.0 (0.0-0.1) K/mm3 Abs Immat Gran (auto) 0.04 H (0.00-0.031) K/mm3 Absolute Neuts (auto) 4.0 (1.3-6.7) K/mm3 Absolute Nucleated RBC 0.000 (0.0-0.012) K/mm3 Nucleated RBC % 0.0 (0.0-0.2) % PT 12.8 (11.1-14.7) Seconds INR 1.0 APTT 23.5 (22.3-36.8) Seconds Sodium 136 L (137-145) mmol/L Potassium 3.8 (3.4-5.0) mmol/L Chloride 102 (98-107) mmol/L Carbon Dioxide 27 (22-30) mmol/L Anion Gap 7 (4-12) mmol/L BUN 9 D (7-17) mg/dL Creatinine 0.92 1.00 (0.7-1.0) mg/dL Estim Creat Clear Calc 71 66 ml/min Estimated GFR > 60 57 L (59 - ) Glucose 84 (65-110) mg/dL Calcium 9.3 (8.4-10.2) mg/dL Magnesium 1.9 (1.6-2.3) mg/dL Total Bilirubin 0.6 (0.2-1.3) mg/dL AST 40 H (14-36) U/L ALT 34 (6-35) U/L Alkaline Phosphatase 85 (38-126) U/L Total Protein 9.2 H (6.3-8.2) g/dL Albumin 4.6 (3.5-5.1) g/dL Lipase 105 (23-300) U/L Urine Color Yellow (Yellow) Urine Appearance Clear (Clear) Urine pH 6.5 (5.0-9.0) Ur Specific [place] 1.013 (1.001-1.035) Urine Protein Negative (Negative) mg/dL Urine Glucose (UA) Negative (Negative) mg/dL Urine Ketones Negative (Negative) mg/dL Ur Blood (Man) Negative (Negative) Urine Nitrate Negative (Negative) Urine Bilirubin Negative (Negative) Urine Urobilinogen 0.2 (<2.0) mg/dL Leukocyte Esterase Rfl Negative (Negative) RAEGAN/UL Imaging Data Attestation: I personally reviewed and interpreted this imaging study as follows: Radiologist's impression: Impressions Abdomen/Pelvis CTA 07/29/25 19:02 IMPRESSION: 1. No acute findings in the upper abdomen and pelvis. No active extravasation of arterial contrast within the bowel. 2. Fecal impaction of the sigmoid. 3. Hepatomegaly with fatty liver. Discharge Plan Discharge Clinical Impression: Fecal impaction in rectum, Constipation, Hemorrhoid, Abdominal pain, Nausea Patient Disposition: Home Condition: Stable Instructions: Antibiotic Form, Constipation (ED) Additional Instructions: Please return to the ER with any worsening symptoms. Follow-up with primary care provider as needed. Take all medications as prescribed, including regularly scheduled medications. Remember to drink lots of water. Patient Language: Arabic Prescriptions: [place] Enema 19-7 gram/118 mL enema 197 ml RECTAL ONCE Qty: 532 0RF ondansetron 4 mg tablet,disintegrating 4 mg PO Q8H PRN (Reason: nausea and vomiting) Qty: 20 0RF polyethylene glycol 3350 [ClearLax] 17 gram/dose powder 17 g PO DAILY Qty: 238 0RF No Action trazodone 150 mg tablet 150 mg PO QHS metoprolol succinate 100 mg tablet extended release 24 hr 100 mg PO DAILY losartan 25 mg tablet 25 mg PO DAILY venlafaxine 225 mg tablet extended release 24hr 225 mg PO QAM nifedipine 30 mg tablet extended release 90 mg PO QAM famotidine 20 mg tablet 20 mg PO QAM albuterol sulfate 90 mcg/actuation HFA aerosol inhaler 2 puff INHALATION Q4-6H PRN (Reason: shortness of breath or wheezing) omeprazole 40 mg capsule,delayed release(DR/EC) 40 mg PO QAM Follow-up/Referrals: Unruly,Manan Mackey [Primary Care Provider] Stand Alone Forms: Work/School Release IP Time of Disposition: :26
--- OUTSIDE RECORDS SUMMARY | 2025-07-29 17:56 | XMS_ITS | Encounter Summary ---
Author Organization [facility] Address [address] [place] [address] Care Team Providers Care Competitive Shopper Name Role Phone Key Tolliver MD Primary Care Provider [phone] Reason for Visit * Reason Comments Medication Refill Encounter Details Date Type Department Care Team ([facility] Contact Info) Description 11/05/2019 Refill [facility] Plastic Surgery and Burn [address] [address] Rodolfo Truong MD [address] [facility] [address] [place] [address] Social History Tobacco Use Types Packs/Day Years Used Date Smoking Tobacco: Never Smokeless Tobacco: Never Alcohol Use Standard Drinks/Week Comments No 0 (1 standard drink = 0.6 oz pur e alcohol) Comments No Sex and Gender Information Value Date Recorded Sex Assigned at Not on file 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 [address] [place] [address] Evan Willis MD [address] [facility] [address] [place] [address] documented as of this encounter Visit Diagnoses Not on filedocumented in this encounter Care Teams Competitive Shopper Relationship Specialty Start Date End Date Key Tolliver MD [address] [place] [address] PCP - General Internal Medicine 11/05/18 documented as of this encounter
--- OUTSIDE RECORDS SUMMARY | 2025-07-29 17:56 | XMS_ITS | Clinical Summary ---
Author Organization [facility] Address [address] [place] [address] Phone Care Team Providers Care Controls Operator Molded Goods Name Role Phone LEILANI MABRY, NILESH Primary Care Provider [phone] Reason for Visit and Chief Complaint The Chief Complaint is: 1 MO FU Problems Includes: Problems addressed during this encounter and other active Problems Current Visit Onset Date Resolved Date Provider Charla jones Status Chronic Pain Syndrome 07/31/2023 HARLEEN COULTER PMHNP Active Last Documented On 3 1:32PM ; [facility] Plan of Treatment Education and Decision Aids were provided during visit for: Pill Count: 25 HYSINGLA Last Documented On 4 8:54AM ; [facility] Pill Count: two HYSINGLA Last Documented On 4 9:14AM ; [facility] Pill Count: HYDROCODONE ~out of medication Last Documented On 4 9:14AM ; [facility] Assessments Includes: Assessments from this encounter Findings - Systemic lupus erythematosus [M32.9 - Systemic lupus erythematosus, unspecified] - Last Documented On 02/01/2024 9:17AM ; [facility] - Sacroiliitis [M46.1 - Sacroiliitis, not elsewhere classified] - Last Documented On 02/01/2024 9:17AM ; [facility] - Lumbar spondylosis with radiculopathy [M47.26 - Other spondylosis with radiculopathy, lumbar region] - Last Documented On 02/01/2024 9:17AM ; [facility] - Lumbar stenosis with neurogenic claudication [M48.062 - Spinal stenosis, lumbar region with neurogenic claudication] - Last Documented On 02/01/2024 9:17AM ; [facility] - Fibromyalgia [M79.7 - Fibromyalgia] - Last Documented On 02/01/2024 9:17AM ; [facility] - Chronic pain syndrome [G89.4 - Chronic pain syndrome] - Last Documented On 02/01/2024 9:17AM ; [facility] - welt insole channeler use of opiate analgesic [Z79.891 - welt insole channeler (current) use of opiate analgesic] - Last Documented On 02/01/2024 9:17AM ; [facility] Instructions Includes: Instructions from this encounter Education and Decision Aids were provided during visit for: Pill Count: 25 HYSINGLA Last Documented On 8:54AM ; [facility] Pill Count: two HYSINGLA Last Documented On 9:14AM ; [facility] Pill Count: HYDROCODONE ~out of medication Last Documented On 9:14AM ; [facility] Medical Equipment - Implanted Devices Includes: Current Devices No Medical Equipment Recorded Medications Includes: Medications discussed during this encounter and other current Medications Current Medications (continue as prescribed) Narcan 4 MG/0.1ML Nasal Liquid 01/21/2024 Provider: FELISHA SENIOR Diagnosis: Spinal stenosis, lumbar region with neurogenic claudication as directed Last Documented On 4 2:31PM By FELISHA SENIOR ; [facility] Hysingla ER 20 MG Oral Table t ER 24 Hour Abuse-Deterrent 01/21/2024 Provider: FELISHA SENIOR Diagnosis: Spinal stenosis, lumbar region with neurogenic claudication 1 tablet q 24 hours Last Documented On 4 2:31PM By FELISHA SENIOR ; [facility] oxyCODONE-Acetaminophen 10-325 MG Oral Tablet 01/15/20 Provider: Diagnosis: Last Documented On 02/01/2024 8:52AM By Lilli MAK ; [facility] traZODone HCl 100 MG Oral Tablet 11/02/2023 [...] [facility] hydrOXYzine HCl 50 MG Oral Tablet 10/26/2023 Provide r: Diagnosis: Last Documented On 4 10:16AM By Lilli MAK ; [facility] Anastrozole 1 MG Oral Tablet [...] On 02/05/2023 4:01PM By Lilli MAK ; [facility] ARIPiprazole 2 MG Oral Tablet 01/09/2023 Provider: Diagnosis: Last Documented On 02/05/2023 4:04PM By Lilli MAK ; [facility] busPIRone HCl 15 MG Oral Tablet 09/20/2022 Provider: Diagnosis: Last Documented On 02/05/2023 4:05PM By Lilli MAK ; [facility] NIFEdipine ER 30 MG Oral Tab let Extended Release 24 Hour 05/04/2022 Provider: REFUGIO AMARO MD Diagnosis: Last Documented On 05/09/2022 3:25PM By Lilli MAK ; [facility] Metoprolol Succinate ER 200M G Oral Tablet Extended Release 24 Hour 10/03/2018 Provider: Diagnosis: Last Documented On 9 3:00PM By VENKAT MAK ; [facility] Medications Administered Includes: Administered Medications from this encounter No Administered Medications Recorded Vital Signs Includes: Vital Signs from this encounter Vital Name 02/01/2024 08:50A Temp-Oral (F) 98.6 Height (in) 65 Weight (lb) 215 Body Mass Index 35.8 Body Surface Area 2 Pain Level 8 Last Documented: On 02/01/2024 8:51AM ; [facility] Results Includes: Results discussed during this encounter [...] and a report back to the [employer] internet sales representative that she was getting approximate [...] psychological evaluation and meeting with the [employer] internet sales representative. Psychological evaluation revealed no barriers [...] need a refill of hydrocodone today. [place] DIRECTOR INSTRUMENTATION appropriate. Last UDS appropriate, this will be [...] UDS appropriate. We will repeat this today. [facility] appropriate. She has exhibited no signs of [...] allows her to maintain function levels. [place] DIRECTOR INSTRUMENTATION is appropriate. UDS was appropriate Past note: [...] for visit: Provider: Privacy of provider's office. [address] [place] [address] Patient: Patient personal setting Total time spent with patient via telecommunication 15 minutes Social History Description Last Updated Tobacco non-user 11/07/2023 Last Documented On 4 8:46AM ; [facility] Alcohol 07/31/2023 Last Documented On 4 8:46AM ; [facility] Consuming 5 or more drinks per day None 07/31/2023 Last Documented On 4 8:46AM ; [facility] Current nonsmoker 07/31/2023 Last Documented On 4 8:46AM ; [facility] Drug use 07/31/2023 Last Documented On 4 8:46AM ; [facility] Lives with spouse 07/31/2023 Last Documented On 4 8:46AM ; [facility] Non-smoker 07/31/2023 Last Documented On 4 8:46AM ; [facility] Number of times used recreat ional drug/ prescription drug for nonmedical reason. None 07/31/2023 Last Documented On 4 8:46AM ; [facility] Smoking status : Never smoker 08/07/2019 Last Documented On 4 8:46AM ; [facility] Currently 10/03/2018 Last Documented On 4 8:46AM ; [facility] Procedures and Surgical History Includes: Procedures from this encounter Procedures Code Diagnosis Performing Provider Service L ocation Service Date use of tobacco assessment performed 1000F Last Documented On 4 8:52AM ; [facility] review of medications documented 1160F Last Documented On 4 8:52AM ; [facility] Clinical summary provided to patient via portal/mailed. ~ Patient understands and agrees with treatment plan. Questions answered Last Documented On 4 9:13AM ; [facility] Medical History Includes: Medical History addressed during this encounter Description Last Updated Reviewed and Unchanged 10/10/2019 Last Documented On 4 8:46AM ; [facility] Currently wearing eyeglasses 10/03/2018 Last Documented On 4 8:46AM ; [facility] Previously 3 time(s) 10/03/2018 Last Documented On 4 8:46AM ; [facility] History of arthritis 10/03/2018 Last Documented On 4 8:46AM ; [facility] History of cancer 10/03/2018 Last Documented On 4 8:46AM ; [facility] History of hypertension 10/03/2018 Last Documented On 4 8:46AM ; [facility] Family History Includes: Family History addressed during [...] [facility] Encounters Encounter Provider Location Date Check-In Time Check-Out Time Diagnosis [facility] 02/01/20 24 9:00AM 9:23AM Systemic Lupus Erythematosus,Chr onic Pain Syndrome,Sacroili itis,Fibromyalgia ,Spinal Stenosis Lumbar with Neurogenic Claudication,Spon dylosis with Radiculopathy Lumbar Region,Halfway Use of Opiate Analgesic Insurance Includes: Active Insurance Policies Plan Name Member ID Group # Subscriber Relationship Effect nieves Dates 1 - [facility] [id number] KATHY MENDENHALL Self Clinical Notes Includes: Clinical Notes from this encounter * Progress note Date Encounter Last Documented by 02/01/2024 TELEHEALTH Last documented on 02/01/2024; 9:17 AM, FELISHA SENIOR; [facility] Active Problems & Conditions - [...] spinal cord summation trial using 28 contact [employer] percutaneous leads. His replacement. Guidance. Patient tolerated the procedure well. Despite multiple efforts approved reprogramming, and a report back to the [employer] internet sales representative that she was getting approximate [...] psychological evaluation and meeting with the [employer] internet sales representative. Psychological evaluation revealed no barriers [...] need a refill of hydrocodone today. [place] DIRECTOR INSTRUMENTATION appropriate. Last UDS appropriate, this will be [...] UDS appropriate. We will repeat this today. [facility] ([place] appropriate. She has exhibited no signs of [...] allows her to maintain function levels. [place] DIRECTOR INSTRUMENTATION is appropriate. UDS was appropriate Past note: [...] syndrome [G89.4 - Chronic pain syndrome] - welt insole channeler use of opiate analgesic [Z79.891 - welt insole channeler (current) use of opiate analgesic] Therapy - [...] for visit: Provider: Privacy of provider's office. [address] [place] [id number] Patient: Patient personal setting Total time spent with patient via telecommunication 15 minutes
--- OUTSIDE RECORDS SUMMARY | 2025-07-29 17:56 | XMS_ITS | Clinical Summary ---
Author Organization [facility] Address [address] [place] [address] Phone Care Team Providers Care Dolly Pusher Name Role Phone LEILANI MABRY, NILESH Primary Care Provider [phone] Reason for Visit and Chief Complaint The Chief Complaint is: FU MEDS ~ADDED TYLENOL 500, TAKING #2 BID Problems Includes: Problems addressed during this encounter and other active Problems Current Visit Onset Date Resolved Date Provider Charla jones Status Chronic Pain Syndrome 07/31/2023 HARLEEN CASTROR PMHNP Active Last Documented On 3 1:32PM ; [facility] Plan of Treatment Education and Decision Aids were provided during visit for: Pill Count: two HYSINGLA Last Documented On 4 11:00AM ; [facility] Pill Count: HYDROCODONE ~out of medication Last Documented On 4 11:43AM ; [facility] Assessments Includes: Assessments from this encounter Findings - Systemic lupus erythematosus [M32.9 - Systemic lupus erythematosus, unspecified] - Last Documented On 12/17/2023 1:18PM ; [facility] - Sacroiliitis [M46.1 - Sacroiliitis, not elsewhere classified] - Last Documented On 12/17/2023 1:18PM ; [facility] - Lumbar spondylosis with radiculopathy [M47.26 - Other spondylosis with radiculopathy, lumbar region] - Last Documented On 12/17/2023 1:18PM ; [facility] - Lumbar stenosis with neurogenic claudication [M48.062 - Spinal stenosis, lumbar region with neurogenic claudication] - Last Documented On 12/17/2023 1:18PM ; [facility] - Fibromyalgia [M79.7 - Fibromyalgia] - Last Documented On 12/17/2023 1:18PM ; [facility] - Chronic pain syndrome [G89.4 - Chronic pain syndrome] - Last Documented On 12/17/2023 1:18PM ; [facility] - shelter use of opiate analgesic [Z79.891 - shelter (current) use of opiate analgesic] - Last Documented On 12/17/2023 1:18PM ; [facility] Instructions Includes: Instructions from this encounter Education and Decision Aids were provided during visit for: Pill Count: two HYSINGLA Last Documented On 4 11:00AM ; [facility] Pill Count: HYDROCODONE ~out of medication Last Documented On 4 11:43AM ; [facility] Medical Equipment - Implanted [...] On 4 11:11AM By FELISHA SENIOR ; [facility] New / Renewed during this visit FELISHA SENIOR on 12/17/2023 Hysingla ER 20 MG Oral Table t ER 24 Hour Abuse-Deterrent Provider: FELISHA SENIOR 30 day supply: 30 tablet, 0 refills Diagnosis: Spinal stenosis, lumbar region with neurogenic claudication 1 tablet q 24 hours [facility] [address] [facility], [phone] - Last Documented On 4 2:27PM By FELISHA SENIOR ; [facility] Current Medications (continue as prescribed) Narcan 4 MG/0.1ML Nasal Liquid 01/21/2024 [facility] Diagnosis: Spinal stenosis, lumbar region with neurogenic claudication as directed Last Documented On 4 2:31PM By [facility] ; [facility] Hysingla ER 20 MG Oral Table t ER 24 Hour Abuse-Deterrent 01/21/2024 Provider: [facility] Diagnosis: Spinal stenosis, lumbar region with neurogenic claudication 1 tablet q 24 hours Last Documented On 4 2:31PM By [facility] ; [facility] oxyCODONE-Acetaminophen 10-325 MG Oral Tablet 01/15/20 Provider: Diagnosis: Last Documented On 02/01/2024 8:52AM By Lilli MAK ; [facility] traZODone HCl 100 MG Oral Tablet 11/02/2023 Provider : Diagnosis: Last Documented On 4 10:13AM By Lilli MAK ; [facility] Cyclobenzaprine HCl 10 MG Oral Tablet 10/29/2023 Pro vider: REFUGIO AMARO MD Diagnosis: Last Documented On 4 10:15AM By Lilli MAK ; [facility] Ketoconazole 2% External Cream 10/29/2023 Provider: REFUGIO AMARO MD Diagnosis: Last Documented On 4 10:15AM By Lilli MAK ; [facility] hydrOXYzine HCl 50 MG Oral Tablet 10/26/2023 Provide r: Diagnosis: Last Documented On 4 10:16AM By Lilli MAK ; [facility] Anastrozole 1 MG Oral Tablet 10/24/2023 Provider: Diagnosis: Last Documented On 4 10:16AM By Lilli MAK ; [facility] FeroSul 325 (65 Fe) MG Oral Tablet 10/24/2023 Provid er: Diagnosis: Last Documented On 4 10:18AM By Lilli MAK ; [facility] Venlafaxine HCl ER 225 MG Oral Tablet Extended R elease 24 Hour 10/23/2023 Provider: Diagnosis: Last Documented On 4 10:18AM By Lilli MAK ; [facility] Pregabalin 200 MG Oral Capsule 10/08/2023 Provider: FELISHA WU Diagnosis: Fibromyalgia TAKE 1 CAPSULE BY MOUTH TWICE DAILY Last Documented On 4 1:51PM By FELISHA SENIOR ; [facility] Omeprazole 40 MG Oral Capsule Delayed Release 08/11/20 Provider: Diagnosis: Last Documented On 4 10:17AM By Lilli MAK ; [facility] Lisinopril 40 MG Oral Tablet 04/11/2023 Provider: REFUGIO AMARO MD Diagnosis: Last Documented On 3 10:40AM By Lilli MAK ; [facility] Famotidine 20 MG Oral Tablet 01/23/2023 Provider: Diagnosis: Last Documented On 02/05/2023 4:01PM By Lilli MAK ; [facility] ARIPiprazole 2 MG Oral Tablet 01/09/2023 Provider: Diagnosis: Last Documented On 02/05/2023 4:04PM By Lilli MAK ; [facility] busPIRone HCl 15 MG Oral Tablet 09/20/2022 Provider: Diagnosis: Last Documented On 02/05/2023 4:05PM By Lilli MAK ; [facility] NIFEdipine ER 30 MG Oral Tab let Extended Release 24 Hour 05/04/2022 Provider: REFUGIO AMARO MD Diagnosis: Last Documented On 05/09/2022 3:25PM By Lilli MAK ; [facility] Metoprolol Succinate ER 200M G Oral Tablet Extended Release 24 Hour 10/03/2018 Provider: Diagnosis: Last Documented On 9 3:00PM By VENKAT MAK ; [facility] Medications Administered Includes: Administered Medications from this encounter No Administered Medications Recorded Vital Signs Includes: Vital Signs from this encounter Vital Name 12/17/2023 10:57A Temp-Oral (F) 98.6 Height (in) 65 Weight (lb) 215 Body Mass Index 35.8 Body Surface Area 2 Pain Level 8 Last Documented: On 12/17/2023 10:59A M ; [facility] Results Includes: Results discussed during [...] spinal cord summation trial using 28 contact [employer] percutaneous leads. His replacement. Guidance. Patient tolerated the procedure well. Despite multiple efforts approved reprogramming, and a report back to the [employer] lead generation representative that she was getting approximate 75% [...] psychological evaluation and meeting with the [employer] lead generation representative. Psychological evaluation revealed no barriers to [...] need a refill of hydrocodone today. [place] CONSTRUCTION MANAGEMENT INSTRUCTOR appropriate. Last UDS appropriate, this will be [...] UDS appropriate. We will repeat this today. [facility] appropriate. She has exhibited no [...] allows her to maintain function levels. [place] CONSTRUCTION MANAGEMENT INSTRUCTOR is appropriate. UDS was appropriate Past note: [...] for visit: Provider: Privacy of provider's office. [address] [place] [address] Patient: Patient personal setting Total time spent with patient via telecommunication minutes Social History Description Last Updated Tobacco non-user 11/07/2023 Last Documented On 4 10:56AM ; [facility] Alcohol 07/31/2023 Last Documented On 4 10:56AM ; [facility] Consuming 5 or more drinks per day None 07/31/2023 Last Documented On 4 10:56AM ; [facility] Current nonsmoker 07/31/2023 Last Documented On 4 10:56AM ; [facility] Drug use 07/31/2023 Last Documented On 4 10:56AM ; [facility] Lives with spouse 07/31/2023 Last Documented On 4 10:56AM ; [facility] Non-smoker 07/31/2023 Last Documented On 4 10:56AM ; [facility] Number of times used recreat ional drug/ prescription drug for nonmedical reason. None 07/31/2023 Last Documented On 4 10:56AM ; [facility] Smoking status : Never smoker 08/07/2019 Last Documented On 4 10:56AM ; [facility] Currently 10/03/2018 Last Documented On 4 10:56AM ; [facility] Procedures and Surgical History Includes: Procedures from this encounter Procedures Code Diagnosis Performing Provider Service L ocation Service Date use of tobacco assessment performed 1000F Last Documented On 4 10:59AM ; [facility] review of medications documented 1160F Last Documented On 4 10:59AM ; [facility] Clinical summary provided to patient via portal/mailed. ~ Patient understands and agrees with treatment plan. Questions answered Last Documented On 4 11:43AM ; [facility] Medical History Includes: Medical History addressed during this encounter Description Last Updated Reviewed and Unchanged 10/10/2019 Last Documented On 4 10:56AM ; [facility] Currently wearing eyeglasses 10/03/2018 Last Documented On 4 10:56AM ; [facility] Previously 3 time(s) 10/03/2018 Last Documented On 4 10:56AM ; [facility] History of arthritis 10/03/2018 Last Documented On 4 10:56AM ; [facility] History of cancer 10/03/2018 Last Documented On 4 10:56AM ; [facility] History of hypertension 10/03/2018 Last Documented On 4 10:56AM ; [facility] Family History Includes: Family [...] Active Last Documented On 4 8:53AM ; [facility] Encounters Encounter Provider Location Date Check-In Time Check-Out Time Diagnosis TELEHEALTH FELISHA SENIOR [facility] 12/17/19 24 10:55AM 11:15AM Systemic Lupus Erythematosus,Chr onic Pain Syndrome,Sacroili itis,Fibromyalgia ,Spinal Stenosis Lumbar with Neurogenic Claudication,Spon dylosis with Radiculopathy Lumbar Region,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 Use of Opiate Analgesic Insurance Includes: Active Insurance Policies Plan Name Member ID Group # Subscriber Relationship Effect nieves Dates 1 - [facility] [id number] KATHY MCNULTY Self Clinical Notes Includes: Clinical Notes from this encounter * Progress note Date Encounter Last Documented by 12/17/2023 TELEHEALTH Last documented on 12/17/2023; 1:18 PM, FELISHA SENIOR; [facility] Active Problems & Conditions [...] and a report back to the [employer] lead generation representative that she was getting approximate 75% [...] psychological evaluation and meeting with the [employer] lead generation representative. Psychological evaluation revealed no barriers to [...] need a refill of hydrocodone today. [place] CONSTRUCTION MANAGEMENT INSTRUCTOR appropriate. Last UDS appropriate, this will be [...] UDS appropriate. We will repeat this today. [facility] appropriate. She has exhibited no [...] allows her to maintain function levels. [place] CONSTRUCTION MANAGEMENT INSTRUCTOR is appropriate. UDS was appropriate Past note: [...] syndrome [G89.4 - Chronic pain syndrome] - shelter use of opiate analgesic [Z79.891 - shelter [...] visit: Provider: Privacy of provider's office. [address] [place] [address]., [place] [address] Patient: Patient personal setting Total time spent with patient via telecommunication minutes
--- OUTSIDE RECORDS SUMMARY | 2025-07-29 17:56 | XMS_ITS | Clinical Summary ---
Author Organization [facility] Address [address] [place] [address] Phone Care Team Providers Care Wafer Production Lead Worker Name Role Phone LEILANI MABRY, NILESH Primary Care Provider [phone] Reason for Visit and Chief Complaint RX ISSUE/REFILL Problems Includes: Problems addressed during this encounter and other active Problems All Visits Onset Date Resolved Date Provider Condition S tatus Chronic Pain Syndrome 07/31/2023 NURY ECHAVARRIA PMHNP Active Last Documented On 3 1:32PM ; [facility] Plan of Treatment No Plan of [...] 2:31PM By FELISHA HERRERA-BC ; [facility] Hysingla ER 20 MG Oral Table t ER 24 Hour Abuse-Deterrent 01/21/2024 Provider: FELISHA FREEMAN ANP-BC Diagnosis: Spinal stenosis, lumbar region with neurogenic claudication 1 tablet q 24 hours Last Documented On 4 2:31PM By FELISHA SENIOR ; [facility] oxyCODONE-Acetaminophen 10-325 MG Oral Tablet 05/14/20 24 Provider: Diagnosis: Last Documented On 02/01/2024 8:52AM By Lilli MAK ; [facility] traZODone HCl 100 MG Oral Tablet 11/02/2023 Provider : Diagnosis: Last Documented On 4 10:13AM By Lilli MAK ; [facility] Cyclobenzaprine HCl 10 MG Oral Tablet 10/29/2023 Pro vider: REFUGIO AMARO MD Diagnosis: Last Documented On 4 10:15AM By Lilli MAK ; [facility] Ketoconazole 2% External Cream 10/29/2023 Provider: REFUGIO AMARO MD Diagnosis: Last Documented On 4 10:15AM By Lilli MAK ; [facility] hydrOXYzine HCl 50 MG Oral Tablet 10/26/2023 Provide r: Diagnosis: Last Documented On 4 10:16AM By Lilli MAK ; [facility] Anastrozole 1 MG Oral Tablet 10/24/2023 Provider: Diagnosis: Last Documented On 4 10:16AM By Lilli MAK ; [facility] FeroSul 325 (65 Fe) MG Oral Tablet 10/24/2023 Provid er: Diagnosis: Last Documented On 4 10:18AM By Lilli MAK ; [facility] Venlafaxine HCl ER 225 MG Oral Tablet Extended R elease 24 Hour 10/23/2023 Provider: Diagnosis: Last Documented On 4 10:18AM By Lilli MAK ; [facility] Pregabalin 200 MG Oral Capsule 10/08/2023 Provider: FELISHA SENIOR Diagnosis: Fibromyalgia TAKE 1 CAPSULE BY MOUTH TWICE DAILY Last Documented On 4 1:51PM By FELISHA SENIOR ; [facility] Omeprazole 40 MG Oral Capsule Delayed Release 08/11/20 Provider: Diagnosis: Last Documented On 4 10:17AM By Lilli MAK ; [facility] Lisinopril 40 MG Oral Tablet 04/11/2023 Provider: REFUGIO AMARO MD Diagnosis: Last Documented On 3 10:40AM By Lilli MAK ; [facility] Famotidine 20 MG Oral Tablet 01/23/2023 Provider: Diagnosis: Last Documented On 02/05/2023 4:01PM By Lilli MAK ; [facility] ARIPiprazole 2 MG Oral Tablet 01/09/2023 Provider: Diagnosis: Last Documented On 02/05/2023 4:04PM By Lilli MAK ; [facility] busPIRone HCl 15 MG Oral Tablet 09/20/2022 Provider: Diagnosis: Last Documented On 02/05/2023 4:05PM By Lilli MAK ; [facility] NIFEdipine ER 30 MG Oral Tab let Extended Release 24 Hour 05/04/2022 Provider: REFUGIO AMARO MD Diagnosis: Last Documented On 05/09/2022 3:25PM By Lilli MAK ; [facility] Metoprolol Succinate ER 200M G Oral Tablet Extended Release 24 Hour 10/03/2018 Provider: Diagnosis: Last Documented On 9 3:00PM By VENKAT MAK ; [facility] Medications Administered Includes: Administered Medications from this encounter No Administered Medications Recorded Results Includes: Results discussed during this encounter No Results Recorded For Specified Dates History of Present Illness Includes: History of Present Illness from this encounter No History of Present Illness Recorded Social History Description Last Updated Tobacco non-user 11/07/2023 Last Documented On 4 2:03PM ; [facility] Alcohol 07/31/2023 Last Documented On 4 2:03PM ; [facility] Consuming 5 or more drinks per day None 07/31/2023 Last Documented On 4 2:03PM ; [facility] Current nonsmoker 07/31/2023 Last Documented On 4 2:03PM ; [facility] Drug use 07/31/2023 Last Documented On 4 2:03PM ; [facility] Lives with spouse 07/31/2023 Last Documented On 4 2:03PM ; [facility] Non-smoker 07/31/2023 Last Documented On 4 2:03PM ; [facility] Number of times used recreat ional drug/ prescription drug for nonmedical reason. None 07/31/2023 Last Documented On 4 2:03PM ; [facility] Smoking status : Never smoker 08/07/2019 Last Documented On 4 2:03PM ; [facility] Currently 10/03/2018 Last Documented On 4 2:03PM ; [facility] Medical History Includes: Medical History addressed during this encounter Description Last Updated Reviewed and Unchanged 10/10/2019 Last Documented On 4 2:03PM ; [facility] Currently wearing eyeglasses 10/03/2018 Last Documented On 4 2:03PM ; [facility] Previously 3 time(s) 10/03/2018 Last Documented On 4 2:03PM ; [facility] History of arthritis 10/03/2018 Last Documented On 4 2:03PM ; [facility] History of cancer 10/03/2018 Last Documented On 4 2:03PM ; [facility] History of hypertension 10/03/2018 Last Documented On 4 2:03PM ; [facility] Family History Includes: Family History addressed [...] Documented On 4 8:53AM ; [facility] Encounters Encounter Provider Location Date Check-In Time Check-Out Time Diagnosis RX ISSUE/REFILL FELISHA HERRERA-TAMIKO 12/14/2023 2:04PM 11:59PM Insurance Includes: Active Insurance Policies Plan Name Member ID Group # Subscriber Relationship Effect nieves Dates 1 - [facility] [id number] KATHY Sanchez Clinical Notes Includes: Clinical Notes from this encounter * Progress note Date Encounter Last Documented by 12/14/2023 RX ISSUE/REFILL Last documented on 12/17/2023; 2:39 PM, FELISHA GIBSON ANP-; [facility] Active Problems & Conditions [...]
--- OUTSIDE RECORDS SUMMARY | 2025-07-29 17:56 | XMS_ITS | Encounter Summary ---
Author Organization [facility] Address [address] [facility] [place] [address] Care Team Providers Care Human Resources Executive Name Role Phone Key Tolliver MD Primary Care Provider Pablo Liriano MD Unavailable [phone] Evan Willis MD Unavailable [phone] Charles Kingston MD Unavailable Reason for Visit * Reason Onset Date Comments Question 02/20/2025 Encounter Details Date Type Department Care Team (Late st Contact Info) Description 02/20/2025 Telephone [facility] - Orthopedic Surgery [address] [phone] Tamie Olivas, RN Question Social [...] on file Legal Sex Female 11:46 AM HOT KNIFE CUTTER Gender Identity Not on file Sexual [...] (Latest Contact Info) Description 09/09/2025 11:15 AM HOT KNIFE CUTTER Office Visit [facility] - Orthopedics [address] [facility] [place] [address] Yandel Petersen MD [address] [place] [address] 10/14/2025 7:20 AM HOT KNIFE CUTTER Hospital Encounter [facility] Op [address] [address] Mariano Guzmán MD [address] [address] Surgery General 10/14/2025 7:20 AM HOT KNIFE CUTTER - 10/14/2025 9:08 AM HOT KNIFE CUTTER Surgery [facility] [address] [address] Mariano Guzmán MD [address] [address] ARTHROSCOPY SHOULDER BICEP TENODESIS, DEBRIDEMENT 10/22/2025 2:40 PM HOT KNIFE CUTTER Office Visit [facility] - Orthopedic Surgery [address] [place] [phone] Mariano Guzmán MD [address] [address] 03/11/2026 2:00 PM CDT Office Visit [facility] - Rheumatology [address] [place] [address], [place] [phone] Ev Lowery MD [address] [place] [address] [place] [phone] Scheduled Procedures Name Priority Associated Diagnoses Date/Ti me ARTHROSCOPY SHOULDER BICEP TENODESIS Chronic pain in right shoulder Biceps tendinitis of right shoulder 10/14/2025 7:20 AM HOT KNIFE CUTTER documented as of this encounter Goals Goal Patient Goal Type Associated Problems Recent Progress Patient-Stated? Author Mobility General Improving( 1:50 PM CDT) Coreen Rider, RN Note: Expected end date: 12/01/2020 The goal is to maintain or improve your mobility at the optimum level for you. Interventions: Mobility General Worsening( 1:20 PM HOT KNIFE CUTTER) No Lilo Kaminski RN Note: Expected end date: 11/17/2019 The goal is to maintain or improve your mobility at the optimum level for you. Interventions: PAIN General No Shira Sun RN Note: Expected end date: 01/18/2020 Patient's pain/discomfort is manageable. Interventions: documented as of this encounter Visit Diagnoses Not on filedocumented in this encounter Care Teams Human Resources Executive Relationship Specialty Start Date End Date Key Tolliver MD [address] [place] [phone] PCP - General 10/22/18 Pablo Liriano MD [address] [place] [phone] Orthopedic Surgery 05/22/19 Evan Willis MD [address] [place] [phone] Medical Oncologist Medical Oncology 11/02/21 Charles Kingston MD [address] [place] [phone] Web Press Operator Cardiology 11/03/21 documented as of this encounter
--- OUTSIDE RECORDS SUMMARY | 2025-07-29 17:57 | XMS_ITS | Clinical Summary ---
Author Organization [facility] Address [address] [place] [address] Care Team Providers Care Strapper Operator Name Role Phone Key Tolliver MD Primary [...] CDT - 06/11/2025 4:42 PM CDT Emergency [facility] Emergency Department [address] [place] [address] Fall, 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Primary Dx); Acute right-sided low back pain with right-sided sciatica; Sprain of left ankle, unspecified ligament, initial encounter Discharge Disposition: Discharge to home or self care 06/09/2025 Results Follow-Up [facility] Neurology [address] [facility] [address] [place] [phone] Peggy Reid MA EEG 06/08/2025 2:28 PM CDT - 06/08/2025 11:59 PM CDT Hospital Encounter [facility] MRI [address] [place] [address] Altered mental status, unspecified altered mental status type Discharge Disposition: Discharge to home or self care 06/08/2025 1:13 PM CDT - 06/08/2025 11:59 PM CDT Hospital Encounter [facility] Cardiac Testing [address] [place] [address] Altered mental status, unspecified altered mental status type Discharge Disposition: Discharge to home or self care 05/27/2025 Telephone [facility] Neurology [address] [place] [phone] Linden Walter Si, MD Scheduling Appointments (CALL SCHEDULING ) 05/26/2025 1:30 PM CDT Office Visit [facility] Neurology [address] [place] [phone] Linden Walter Si, MD Altered mental status, unspecified altered mental status type (Primary Dx); Stuttering 05/14/2025 2:33 PM CDT - 05/14/2025 11:59 PM CDT Hospital Encounter [facility] [address] [place] [phone] Discharge Disposition: Discharge to home or self care 05/14/2025 2:33 PM CDT - 05/14/2025 11:59 PM CDT Hospital Encounter [facility] [address] [place] [phone] Discharge Disposition: Discharge to home or self care 05/14/2025 2:00 PM CDT Office Visit [facility] Orthopedics and Sports Medicine at [address] [phone] Jace Muller MD Pain in left foot [...] on file Legal Sex Female 6:25 PM [employer] Gender Identity Not on file Sexual Orientation [...] Naveen Dash M.D. WILY: WILY Report ID: [id number] Reading Location: [place] [address] Procedure Note Naveen Dash MD - 06/11/2025 [...] Naveen Dash M.D. WILY: WILY Report ID: [id number] Reading Location: [id number] Rashawn Cloud NP IMG CT PROCEDURES Final [...] Jose Chan M.D. KR: JAKE Report ID: [id number] Reading Location: [id number] Procedure Note Jose Chan MD - 06/11/2025 [...] Jose Chan M.D. KR: JAKE Report ID: [id number] Reading Location: [id number] Rashawn Cloud NP IMG XR PROCEDURES Final [...] by Rodolfo Tapia M.D. T: Report ID: [id number] Reading Location: [id number] Procedure Note Rodolfo Tapia, DO - 06/08/2025 EXAM DESCRIPTION: MRI BRAIN WO CONTRAST REASON FOR STUDY: Mental status change, unknown cause Pt is having episodes of dementia and acting like she is a child for pastfew months. PT doesn't recall episodes. They are per her daughter TECHNIQUE: Multiplanar imaging includes non-contrasted T1, T2, FLAIR, and diffusion with ADC map sequences. Additional sequence(s) sensitive Virool. Images stored on PACS. COMPARISON: None available. [...] by Rodolfo Tapia M.D. T: Report ID: [id number] Reading Location: [id number] Linden Walter MD IM MRI PROCEDURES Final [...] abduction Jace Muller MD IMG XR PROCEDURES Viivan l Result * XR Calcaneus Left 2 [...] agrees with it. ACC# Date Time Exam [id number] May 07, 2013 13:59:00 [facility] [id number] Bilateral Tomosynthesis Technologist(s): Ashley Batista; ; [id number] May 07, 2013 13:59:00 [facility] [id number] Diag Mammogram Bilateral Technologist(s): Ashley Batista; ; [id number] May 07, 2013 14:24:00 [facility] [id number] Sono Breast (Unilateral) L EXAMINATION: BILATERAL FULL [...] diagnostic mammogram and accompanying ultrasound performed at [facility] [place] on 04/28/2013. BREAST PARENCHYMAL COMPOSITION: Heterogeneously dense, [...] been scheduled to return to the [facility] for an ultrasound-guided core needle biopsy of [...] agrees with it. ACC# Date Time Exam [id number] May 07, 2013 13:59:00 [facility] [id number] Bilateral Tomosynthesis Technologist(s): Ashley Batista; ; [id number] May 07, 2013 13:59:00 [facility] [id number] Diag Mammogram Bilateral Technologist(s): Aslhey Batista; ; [id number] May 07, 2013 14:24:00 [facility] [id number] Sono Breast (Unilateral) L EXAMINATION: BILATERAL FULL [...] diagnostic mammogram and accompanying ultrasound performed at [facility] on 04/28/2013. BREAST PARENCHYMAL COMPOSITION: Heterogeneously dense, [...] been scheduled to return to the [facility] for an ultrasound-guided core needle biopsy of [...] CDT PROCEDURE REPORT Patient: CHELA MCNULTY Account: [id number] Room No: 2619-01 : 1970 Patient Type: [...] Relevant to Health Maintenance Insurance [facility] Care Teams Strapper Operator Relationship Specialty Start Date End Date Key Tolliver MD [address] [place] [phone] PCP - General Internal Medicine 12/08/24
--- OUTSIDE RECORDS SUMMARY | 2025-07-29 17:57 | XMS_ITS | Encounter Summary ---
Author Organization [facility] Address [address] [place], [place] [id number] Care Team Providers Care Carburetor Expert Name Role Phone Key Tolliver MD Primary Care Provider Reason for Visit * Reason Onset Date Comments Test Results 06/09/2025 Results MRI Brai n and EEG Encounter Details Date Type Department Care Team ([facility] Contact Info) Description 06/09/2025 Results Follow-Up [facility] Neurology [address] [place] [phone] Peggy Reid MA EEG Social History [...] on file Legal Sex Female 6:25 PM HEAD OF ENGLISH Gender Identity Not on file Sexual Orientation [...] Impaired gait 0 06/11/2025 3:17 PM RALPHT iMkey Willis, RN Mobility assist device used 0 [...] on filedocumented in this encounter Care Teams Carburetor Expert Relationship Specialty Start Date End Date Key Tolliver MD [address] [address] PCP - General Internal Medicine 12/08/24 documented as of this encounter
--- OUTSIDE RECORDS SUMMARY | 2025-07-29 17:57 | XMS_ITS | Encounter Summary ---
Author Organization [facility] Address [address] [facility] [place] [address] Care Team Providers Care Sales Promotion Representative Name Role Phone Key Tolliver MD Primary Care Provider Pablo Liriano MD Unavailable [phone] Evan Willis MD Unavailable [phone] Charles Kingston MD Unavailable Reason for Visit * Reason Comments Refill Request Encounter Details Date Type Department Care Team (Late st Contact Info) Description 06/27/2025 Refill [facility] Orthopedic Surgery [address] [place] [phone] Latrice Salinas MD [address] [facility] [place] [address] Refill Request Social History Tobacco [...] on file Legal Sex Female 11:46 AM FOUNDRY HELPER Gender Identity Not on file Sexual Orientation [...] (Latest Contact Info) Description 09/09/2025 11:15 AM FOUNDRY HELPER Office Visit [facility] - Orthopedics [address] [facility] [place] [address] Yandel Petersen MD [address] [place] [address] 10/14/2025 7:20 AM FOUNDRY HELPER Hospital Encounter [facility] [address] [address] Mariano Guzmán MD [address] [place] [address] Surgery General 10/14/2025 7:20 AM FOUNDRY HELPER - 10/14/2025 9:08 AM FOUNDRY HELPER Surgery [facility] Op [address] [address] Mariano Guzmán MD [address] [address] ARTHROSCOPY SHOULDER BICEP TENODESIS, DEBRIDEMENT 10/22/2025 2:40 PM FOUNDRY HELPER Office Visit [facility] - Orthopedic Surgery [address] [place] [phone] Mariano Guzmán MD [address] [place] [address] 03/11/2026 2:00 PM CDT [facility] [address] [place] [address], [facility] [place] [phone] Ev Lowery MD [address] [place] [address] [place] [phone] Scheduled Procedures Name Priority Associated Diagnoses Date/Ti me ARTHROSCOPY SHOULDER BICEP TENODESIS Chronic pain in right shoulder Biceps tendinitis of right shoulder 10/14/2025 7:20 AM FOUNDRY HELPER documented as of this encounter Goals Goal Patient Goal Type Associated Problems Recent Progress Patient-Stated? Author Mobility General Improving( 1:50 PM CDT) Coreen Rider, RN Note: Expected end date: 12/01/2020 The goal is to maintain or improve your mobility at the optimum level for you. Interventions: Mobility General Worsening( 1:20 PM FOUNDRY HELPER) Lilo Xiong, DARRON Note: Expected end date: [...] shoulder documented in this encounter Care Teams Sales Promotion Representative Relationship Specialty [place] [address] [place] [phone] PCP - General 10/22/18 Pablo Liriano MD [address] [place] [phone] Orthopedic Surgery 05/22/19 Evan Willis MD [address] [place] [phone] Medical Oncologist Medical Oncology 11/02/21 Charles Kingston MD [address] [place] [phone] Financial Internship Cardiology 11/03/21 documented as of this encounter
--- OUTSIDE RECORDS SUMMARY | 2025-07-29 17:57 | XMS_ITS | Clinical Summary ---
Author Organization [facility] Address [address] [place] [address] Phone Care Team Providers Care Silk Screen Processor Name Role Phone LEILANI MABRY, NILESH Primary Care Provider [phone] Reason for Visit and Chief Complaint RX ISSUE/REFILL Problems Includes: Problems addressed during this encounter and other active Problems All Visits Onset Date Resolved Date Provider Condition S tatus Chronic Pain Syndrome 07/31/2023 NURY ECHAVARRIA PMHNP Active Last Documented On 3 1:32PM ; [facility] Plan of Treatment No Plan [...] On 4 2:31PM By FELISHA HERRERA-BC ; [facility] Hysingla ER 20 MG Oral Table t ER 24 Hour Abuse-Deterrent 01/21/2024 Provider: FELISHA FREEMAN ANP-BC Diagnosis: Spinal stenosis, lumbar region with neurogenic claudication 1 tablet q 24 hours Last Documented On 4 2:31PM By FELISHA SENIOR ; [facility] oxyCODONE-Acetaminophen 10-325 MG Oral Tablet 05/14/20 24 Provider: Diagnosis: Last Documented On 02/01/2024 8:52AM By Lilli MAK ; [facility] traZODone HCl 100 MG Oral Tablet 11/02/2023 Provider : Diagnosis: Last Documented On 4 10:13AM By Lilli MAK ; [facility] Cyclobenzaprine HCl 10 MG Oral Tablet 10/29/2023 Pro vider: REFUGIO AMARO MD Diagnosis: Last Documented On 4 10:15AM By Lilli MAK ; [facility] Ketoconazole 2% External Cream 10/29/2023 Provider: REFUGIO AMARO MD Diagnosis: Last Documented On 4 10:15AM By Lilli MAK ; [facility] hydrOXYzine HCl 50 MG Oral Tablet 10/26/2023 Provide r: Diagnosis: Last Documented On 4 10:16AM By Lilli MAK ; [facility] Anastrozole 1 MG Oral Tablet 10/24/2023 Provider: Diagnosis: Last Documented On 4 10:16AM By Lilli MAK ; [facility] FeroSul 325 (65 Fe) MG Oral Tablet 10/24/2023 Provid er: Diagnosis: Last Documented On 4 10:18AM By Lilli MAK ; [facility] Venlafaxine HCl ER 225 MG Oral Tablet Extended R elease 24 Hour 10/23/2023 Provider: Diagnosis: Last Documented On 4 10:18AM By Lilli MAK ; [facility] Pregabalin 200 MG Oral Capsule 10/08/2023 Provider: FELISHA SENIOR Diagnosis: Fibromyalgia TAKE 1 CAPSULE BY MOUTH TWICE DAILY Last Documented On 4 1:51PM By FELISHA SENIOR ; [facility] Omeprazole 40 MG Oral Capsule Delayed Release 08/11/20 Provider: Diagnosis: Last Documented On 4 10:17AM By Lilli MAK ; [facility] Lisinopril 40 MG Oral Tablet 04/11/2023 Provider: REFUGIO AMARO MD Diagnosis: Last Documented On 3 10:40AM By Lilli MAK ; [facility] Famotidine 20 MG Oral Tablet 01/23/2023 Provider: Diagnosis: Last Documented On 02/05/2023 4:01PM By Lilli MAK ; [facility] ARIPiprazole 2 MG Oral Tablet 01/09/2023 Provider: Diagnosis: Last Documented On 02/05/2023 4:04PM By Lilli MAK ; [facility] busPIRone HCl 15 MG Oral Tablet 09/20/2022 Provider: Diagnosis: Last Documented On 02/05/2023 4:05PM By Lilli MAK ; [facility] NIFEdipine ER 30 MG Oral Tab let Extended Release 24 Hour 05/04/2022 Provider: REFUGIO AMARO MD Diagnosis: Last Documented On 05/09/2022 3:25PM By Lilli MAK ; [facility] Metoprolol Succinate ER 200M G Oral Tablet Extended Release 24 Hour 10/03/2018 Provider: Diagnosis: Last Documented On 9 3:00PM By VENKAT MAK ; [facility] Medications Administered Includes: Administered Medications from this encounter No Administered Medications Recorded Results Includes: Results discussed during this encounter No Results Recorded For Specified Dates History of Present Illness Includes: History of Present Illness from this encounter No History of Present Illness Recorded Social History Description Last Updated Tobacco non-user 11/07/2023 Last Documented On 4 1:35PM ; [facility] Alcohol 07/31/2023 Last Documented On 4 1:35PM ; [facility] Consuming 5 or more drinks per day None 07/31/2023 Last Documented On 4 1:35PM ; [facility] Current nonsmoker 07/31/2023 Last Documented On 4 1:35PM ; [facility] Drug use 07/31/2023 Last Documented On 4 1:35PM ; [facility] Lives with spouse 07/31/2023 Last Documented On 4 1:35PM ; [facility] Non-smoker 07/31/2023 Last Documented On 4 1:35PM ; [facility] Number of times used recreat ional drug/ prescription drug for nonmedical reason. None 07/31/2023 Last Documented On 4 1:35PM ; [facility] Smoking status : Never smoker 08/07/2019 Last Documented On 4 1:35PM ; [facility] Currently 10/03/2018 Last Documented On 4 1:35PM ; [facility] Medical History Includes: Medical History addressed during this encounter Description Last Updated Reviewed and Unchanged 10/10/2019 Last Documented On 4 1:35PM ; [facility] Currently wearing eyeglasses 10/03/2018 Last Documented On 4 1:35PM ; [facility] Previously 3 time(s) 10/03/2018 Last Documented On 4 1:35PM ; [facility] History of arthritis 10/03/2018 Last Documented On 4 1:35PM ; [facility] History of cancer 10/03/2018 Last Documented On 4 1:35PM ; [facility] History of hypertension 10/03/2018 Last Documented On 4 1:35PM ; [facility] Family History Includes: Family History [...] Active Last Documented On 4 8:53AM ; [facility] Encounters Encounter Provider Location Date Check-In Time Check-Out Time Diagnosis RX ISSUE/REFILL FELISHA HERRERA-TAMIKO 01/18/2024 1:35PM 11:59PM Insurance Includes: Active Insurance Policies Plan Name Member ID Group # Subscriber Relationship Effect nieves Dates 1 - [facility] [id number] KATHY Sanchez Clinical Notes Includes: Clinical Notes from this encounter * Progress note Date Encounter Last Documented by 01/18/2024 RX ISSUE/REFILL Last documented on 01/21/2024; 2:27 PM, FELISHAAdore GIBSON ANP-; [facility] Active Problems & Conditions - [...]
--- OUTSIDE RECORDS SUMMARY | 2025-07-29 17:57 | XMS_ITS | Clinical Summary ---
Author Organization [facility] Address [address] [place] [address] Care Team Providers Care Toe Laster Name Role Phone Key Tolliver MD Primary Care Provider [phone] Allergies Active Allergy Reactions Criticality Noted Date [...] mouth daily. Active naloxone (NARCAN) 4 mg/spray [place], Non-Aerosol EMERGENCY USE ONLY: Administer 1 spray [...] Abstract 06/25/2025 2:00 PM CDT Office Visit [facility] On[facility] and Hematology - [place] [address] [place] [address] Evan Willis MD Malignant neoplasm of upper-outer quadrant of left breast in female, estrogen receptor positive (CMS/HCC) (Primary Dx) 06/18/2025 Orders Only [facility] H[facility]ology - [place] [address] [place] [address] Evan Willis MD 06/17/2025 Orders Only [facility] - [place] [address] [place] [address] Evan Willis MD 05/06/2025 External Device Data [...] on file Legal Sex Female 1:52 PM BAR CAPTAIN Gender Identity Not on file Sexual [...] cm (5' 5) 08/11/2024 12:5 5 PM BAR CAPTAIN Body Mass Index 37.97 08/11/2024 12:55 PM BAR CAPTAIN Plan of Treatment Upcoming Encounters Date Type Department Care Team (Late st Contact Info) Description 12/24/2025 2:15 PM CDT Office Visit [facility]cology and H[facility]ology - [place] [address] [place] [address] Evan Willis MD [address] [facility] [address] [place] [address] Health Maintenance Due Date Last [...] 09/11/2027 09/11/2017 Medical Devices Implanted Type Area General Machine Operator Device Identifier Shelf Expiration Date Model / Serial / Lot Sod Stripper Clip Surgiclip Ii Yoradn 9.75in [id number] - [id number] Implanted:Qty: 1 on 10/23/2019 by Rodolfo Truong MD at [facility] Clip N/A: Breast [employer] - COVIDIEN [id number] 06/02/2024 [id number] / / [id number] Natrelle Inspira Softtouch Breast Implant Implanted:Qty: 1 on 07/28/2024 by Rodolfo Truong MD at [facility] Other Right: Breast [employer] [id number] 10/08/2028 SSX-750 / [id number] / Natrelle Inspira Softtouch Breast Implant Implanted:Qty: 1 on 07/28/2024 by Rodolfo Truong MD at [facility] Other Left: Breast [employer] [id number] 07/16/2026 SSF-745 / [id number] / Description:Both Allergan Im plants Requisition,[id number]. Knee Replacement-Yves Plate/ Screws Of Neck Left Shoulder Replacement Explanted Type Area General Machine Operator Device Identifier Shelf Expiration Date Model / Serial / Lot Tissue Waste Cotton Cleaner W/ Suture Tabs Implanted:Qty: 1 on 10/23/2019 by Rodolfo Truong MD at [facility] Explanted:Qty: 1 on 04/06/2020 at [facility] Mammary Left: Breast [employer] [id number] 07/07/2024 133S-MX-1 3-T / [id number] / Description:Filled with 120m l 0.9% NaCl Both Allergan tissue expanders are processed on requisition [id number]. Tissue Waste Cotton Cleaner With Suture Tabs Implanted:Qty: 1 on 10/23/2019 by Rodolfo Truong MD at [facility] Explanted:Qty: 1 on 04/06/2020 at [facility] Mammary Right: Breast [employer] 04/25/2024 133S-MX-1 3-T / [id number] / Description:Requisition # [id number] Natrelle Inspira Softtouch Breast Implant 450cc Implanted:Qty: 1 on 04/06/2020 by Rodolfo Truong MD at [facility] Explanted:Qty: 1 on 08/16/2020 at [facility] Mammary Left: Breast [employer] [id number] 08/17/2024 SSF-450 / [id number] / Description:Both Allergan Br east Implants are processed on requisition [id number]. Natrelle Inspira Softtouch Breast Implant 525cc Implanted:Qty: 1 on 04/06/2020 by Rodolfo Truong MD at [facility] Explanted:Qty: 1 on 08/16/2020 at [facility] Mammary Right: Breast [employer]ICAL [id number] 12/29/2023 SSX-525 / [id number] / Description:Requisition # [id number]. Natrelle Inspira Soft Touch Ssf-560 Implanted:Qty: 1 on 08/16/2020 at [facility] Explanted:Qty: 1 on 02/22/2023 by Rodolfo Truong MD at [facility] Right: Breast [employer]ICAL [id number] 06/21/2024 SSF-560 / [id number] / Description:Requisition # [id number] left breast Imp Breast Inspira Ssx 700ml Ssx-700 - [id number] Explanted:Qty: 1 on 02/22/2023 at [facility] Right: Breast [employer]- [employer]ICAL 01/04/2026 SSX-700 / [id number] / Natrelle Inspira Softtouch Ssx-615 Implanted:Qty: 1 on 08/16/2020 at [facility] Explanted:Qty: 1 on 02/22/2023 by Rodolfo Truong MD at [facility] Right: Breast [employer]ICAL [id number] 10/15/2024 SSX-615 / [id number] / Description:both Allergan re placement breast implants are processed on requisition [id number]. Imp Breast Inspira Ssf 650ml Ssf-650 - [id number] Implanted:Qty: 1 on 02/22/2023 by Rodolfo Truong MD at [facility] Explanted:Qty: 1 on 07/28/2024 by Rodolfo Truong MD at [facility] Left: Breast [employer]- MEDICAL 09/11/2027 SSF-650 / [id number] / Imp Breast Inspira Ssx 615ml Ssx-615 - [id number] Implanted:Qty: 1 on 02/22/2023 by Rodolfo Truong MD at [facility] Explanted:Qty: 1 on 07/28/2024 by Rodolfo Truong MD at [facility] Right: Breast [employer] MEDICAL 10/15/2024 SSX-615 / [id number] / Description:Original implant placed on 08/16/2020 was [...] [facility] RX [facility] Medicaid RX [facility] [employer] Commercial GENERIC [employer] [facility] [employer] PLAN MEDICAID Advance Directives For more information, please contact: [phone] * Full Code (Latest Code Status on [...] 8:44 AM 10/23/2019 2:10 PM Care Teams Toe Laster Relationship Specialty [place] [address] [place] [id number] PCP - General Internal Medicine 11/05/18
--- OUTSIDE RECORDS SUMMARY | 2025-07-29 17:57 | XMS_ITS | Clinical Summary ---
Author Organization [facility] Address [address] [place] [address] Phone Care Team Providers Care Computer Support Technician Name Role Phone NILESH DUKE MD Primary Care Provider [phone] Reason for Visit and Chief Complaint * PHONE CALL Problems Includes: Problems addressed during this encounter and other active Problems All Visits Onset Date Resolved Date Provider Condition S tatus Chronic Pain Syndrome 07/31/2023 NURY ECHAVARRIA PMHNP Active Last Documented On 3 1:32PM ; [facility] Plan of Treatment No Plan of [...] On 4 2:31PM By FELISHA WUBC ; [facility] Hysingla ER 20 MG Oral Table t ER 24 Hour Abuse-Deterrent 01/21/2024 Provider: FELISHA FREEMAN ANP-BC Diagnosis: Spinal stenosis, lumbar region with neurogenic claudication 1 tablet q 24 hours Last Documented On 4 2:31PM By FELISHA SENIOR ; [facility] oxyCODONE-Acetaminophen 10-325 MG Oral Tablet 01/15/20 24 Provider: Diagnosis: Last Documented On 02/01/2024 8:52AM By Lilli MAK ; [facility] traZODone HCl 100 MG Oral Tablet 11/02/2023 Provider : Diagnosis: Last Documented On 4 10:13AM By Lilli MAK ; [facility] Cyclobenzaprine HCl 10 MG Oral Tablet 10/29/2023 Pro vider: REFUGIO AMARO MD Diagnosis: Last Documented On 4 10:15AM By Lilli MAK ; [facility] Ketoconazole 2% External Cream 10/29/2023 Provider: REFUGIO AMARO MD Diagnosis: Last Documented On 4 10:15AM By Lilli MAK ; [facility] hydrOXYzine HCl 50 MG Oral Tablet 10/26/2023 Provide r: Diagnosis: Last Documented On 4 10:16AM By Lilli MAK ; [facility] Anastrozole 1 MG Oral Tablet 10/24/2023 Provider: Diagnosis: Last Documented On 4 10:16AM By Lilli MAK ; [facility] FeroSul 325 (65 Fe) MG Oral Tablet 10/24/2023 Provid er: Diagnosis: Last Documented On 4 10:18AM By Lilli MAK ; [facility] Venlafaxine HCl ER 225 MG Oral Tablet Extended R elease 24 Hour 10/23/2023 Provider: Diagnosis: Last Documented On 4 10:18AM By Lilli MAK ; [facility] Pregabalin 200 MG Oral Capsule 10/08/2023 Provider: FELISHA SENIOR Diagnosis: Fibromyalgia TAKE 1 CAPSULE BY MOUTH TWICE DAILY Last Documented On 4 1:51PM By FELISHA SENIOR ; [facility] Omeprazole 40 MG Oral Capsule Delayed Release 08/11/20 Provider: Diagnosis: Last Documented On 4 10:17AM By Lilli MAK ; [facility] Lisinopril 40 MG Oral Tablet 04/11/2023 Provider: REFUGIO AMARO MD Diagnosis: Last Documented On 3 10:40AM By Lilli MAK ; [facility] Famotidine 20 MG Oral Tablet 01/23/2023 Provider: Diagnosis: Last Documented On 02/05/2023 4:01PM By Lilli MAK ; [facility] ARIPiprazole 2 MG Oral Tablet 01/09/2023 Provider: Diagnosis: Last Documented On 02/05/2023 4:04PM By Lilli MAK ; [facility] busPIRone HCl 15 MG Oral Tablet 09/20/2022 Provider: Diagnosis: Last Documented On 02/05/2023 4:05PM By Lilli MAK ; [facility] NIFEdipine ER 30 MG Oral Tab let Extended Release 24 Hour 05/04/2022 Provider: REFUGIO AMARO MD Diagnosis: Last Documented On 05/09/2022 3:25PM By Lilli MAK ; [facility] Metoprolol Succinate ER 200M G Oral Tablet Extended Release 24 Hour 10/03/2018 Provider: Diagnosis: Last Documented On 9 3:00PM By VENKAT MAK ; [facility] Medications Administered Includes: Administered Medications from this encounter No Administered Medications Recorded Results Includes: Results discussed during this encounter No Results Recorded For Specified Dates History of Present Illness Includes: History of Present Illness from this encounter No History of Present Illness Recorded Social History Description Last Updated Tobacco non-user 11/07/2023 Last Documented On 4 11:54AM ; [facility] Alcohol 07/31/2023 Last Documented On 4 11:54AM ; [facility] Consuming 5 or more drinks per day None 07/31/2023 Last Documented On 4 11:54AM ; [facility] Current nonsmoker 07/31/2023 Last Documented On 4 11:54AM ; [facility] Drug use 07/31/2023 Last Documented On 4 11:54AM ; [facility] Lives with spouse 07/31/2023 Last Documented On 4 11:54AM ; [facility] Non-smoker 07/31/2023 Last Documented On 4 11:54AM ; [facility] Number of times used recreat ional drug/ prescription drug for nonmedical reason. None 07/31/2023 Last Documented On 4 11:54AM ; [facility] Smoking status : Never smoker 08/07/2019 Last Documented On 4 11:54AM ; [facility] Currently 10/03/2018 Last Documented On 4 11:54AM ; [facility] Medical History Includes: Medical History addressed during this encounter Description Last Updated Reviewed and Unchanged 10/10/2019 Last Documented On 4 11:54AM ; [facility] Currently wearing eyeglasses 10/03/2018 Last Documented On 4 11:54AM ; [facility] Previously 3 time(s) 10/03/2018 Last Documented On 4 11:54AM ; [facility] History of arthritis 10/03/2018 Last Documented On 4 11:54AM ; [facility] History of cancer 10/03/2018 Last Documented On 4 11:54AM ; [facility] History of hypertension 10/03/2018 Last Documented On 4 11:54AM ; [facility] Family History Includes: Family History addressed during [...] Active Last Documented On 4 8:53AM ; [facility] Encounters Encounter Provider Location Date Check-In Time Check-Out Time Diagnosis * PHONE CALL FELISHA HERRERA-TAMIKO 12/21/2023 11:54AM 11:59PM Insurance Includes: Active Insurance Policies Plan Name Member ID Group # Subscriber Relationship Effect nieves Dates - [facility] [id number] KATHY Sanchez Clinical Notes Includes: Clinical Notes from this encounter * Progress note Date Encounter Last Documented by 12/21/2023 * PHONE CALL Last documented on 12/28/2023; 8:42 AM, FELISHA GIBSON ANP-; [facility] Active Problems & Conditions - Chronic Pain Syndrome Chief Complaint Phone Call - Chief Concern: reason for call:pt wanted to let you know she was given tramadol, i just picked it up but tramadol doesn't do anything for me, she just wanted you to be aware she was given this rx, michelle pt phone # for return call:[phone] date/initials:12/21/23, kms. Past Medical/Surgical History Reported: Medical: [...]
--- OUTSIDE RECORDS SUMMARY | 2025-07-29 17:57 | XMS_ITS | Clinical Summary ---
Author Organization [facility] Address [address] [place] [address] Care Team Providers Care Practice Or Student Teacher Name Role Phone Key Tolliver MD Primary Care Provider Pablo Liriano MD Unavailable [phone] Evan Willis MD Unavailable [phone] Charles Kingston MD Unavailable Source Comments [facility],non-owned Affiliates and Associated Physician Practices is amultiple site organization consisting of ambulatory clinics and hospital sitesin [place], [place] and [place]. This disclosure is being madepursuant to the Care Everywhere program and may not contain all information available regarding this patient. 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 Take 1 (one) tablet by mouth every 6 hours as needed for Pain (For right shoulder) 28 tablet 07/09/20 25 Active HYDROcodone-satish taminophen ([place]) 5-325 MG tabletIndicatio ns:Chronic left shoulder pain,History [...] Port-a-Cath 2021 Pyogenic arthritis of left s [facility], due to unspecified organism 06/13/2022 Postoperative [...] hyperlipidemia 03/30/2021 Atherosclerotic heart diseas e of [place] coronary artery without angina pectoris 03/30/2021 Chest [...] Guzmán MD Surgery Scheduling 07/16/2025 11:37 AM DOOR FURRING INSTALLER - 07/16/2025 11:59 PM DOOR FURRING INSTALLER Hospital Encounter [facility] Imaging Services - [address] [address] Yandel Petersen MD Discharge Disposition: Home or Self Care 07/16/2025 11:37 AM DOOR FURRING INSTALLER - 07/16/2025 11:59 PM DOOR FURRING INSTALLER Hospital Encounter [facility] Imaging Services - [address] [address] Yandel Petersen MD Discharge Disposition: Home or Self Care 07/16/2025 Orders Only [facility] - Orthopedics [address] [place] [phone] Myriam Roman RN Neck pain ; Hx of cervical spine surgery; Lumbar pain; Lumbar radiculopathy 07/15/2025 Orders Only [facility] - Orthopedic Surgery [facility] [address] [phone] Mariano Guzmán MD Chronic pain in right shoulder ; Biceps tendinitis of right shoulder 07/09/2025 1:00 PM DOOR FURRING INSTALLER Office Visit [facility] - Orthopedic Surgery [address] [phone] Mariano Guzmán MD 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); Biceps tendinitis of right shoulder; Osteoarthritis of right glenohumeral joint 07/09/2025 Refill [facility] - Orthopedic Surgery [facility] [address] [facility] [address] [place] [phone] Zechariah Soto LPN MEDICATION REFILL 07/09/2025 Travel 06/30/2025 Orders Only [facility] - Orthopedic Surgery [facility] [place] [phone] Yandel Petersen MD Neck pain ; Hx of cervical spine surgery; Lumbar pain; Lumbar radiculopathy 06/30/2025 Orders Only [facility] - Orthopedics [address] [place] [phone] Myriam Roman, DARRON Lumbar pain; Neck pain; Hx of cervical spine surgery 06/27/2025 Refill [facility] - Orthopedic Surgery [address] [place] [phone] Latrice Salinas MD Refill Request 06/10/2025 Telephone [facility] - Orthopedics [address] [place] [phone] Myriam Roman, RN Appointment 06/05/2025 Telephone [facility] Physician [facility] - Orthopedics [address] [place] [phone] Myriam Roman, commercial construction project manager 05/28/2025 2:30 PM CDT Office Visit [facility] Physician [facility] - Orthopedic Surgery [address] [place] [phone] Yandel Petersen MD Lumbar pain (Primary Dx); Lumbar radiculopathy; Status post cervical disc replacement; Pain in joint of right shoulder 05/28/2025 1:00 PM CDT - 05/28/2025 11:59 PM CDT Hospital Encounter [facility] Physician [facility] - Orthopedics [address] [place] [address] [address] [place] [phone] Yandel Petersen MD Discharge Disposition: Home or [...] on file Legal Sex Female 11:46 AM DOOR FURRING INSTALLER Gender Identity Not on file Sexual Orientation [...] 103 kg (227 lb) 07/09/2025 12:56 PM DOOR FURRING INSTALLER Height 165.1 cm (5' 5) 07/09/2025 12:56 PM DOOR FURRING INSTALLER Body Mass Index 37.77 07/09/2025 12:56 PM DOOR FURRING INSTALLER Plan of Treatment Upcoming Encounters Date Type Department Care Team (Latest Contact Info) Description 09/09/2025 11:15 AM DOOR FURRING INSTALLER Office Visit [facility] - Orthopedics [address] [place] [phone] Yandel Petersen MD [address] [place] [address] 10/14/2025 7:20 AM DOOR FURRING INSTALLER Hospital Encounter [facility] [address] [address] Mariano Guzmán MD [address] [place] [address] Surgery General 10/14/2025 7:20 AM DOOR FURRING INSTALLER - 10/14/2025 9:08 AM DOOR FURRING INSTALLER Surgery [facility] [address] [address] Mariano Guzmán MD [address] [address] ARTHROSCOPY SHOULDER BICEP TENODESIS, DEBRIDEMENT 10/22/2025 2:40 PM DOOR FURRING INSTALLER Office Visit [facility] - Orthopedic Surgery [address] [phone] Mariano Guzmán MD [address] [address] 03/11/2026 2:00 PM CDT Office Visit [facility] - Rheumatology [address] [place] [address], [place] [phone] Ev Lowery MD [address] [place] [address] [address] [facility] [place] [phone] Scheduled Procedures Name Priority Associated Diagnoses Date/Ti me ARTHROSCOPY SHOULDER BICEP TENODESIS Chronic pain in right shoulder Biceps tendinitis of right shoulder 10/14/2025 7:20 AM DOOR FURRING INSTALLER Health Maintenance Due Date Last Done Comments [...] you. Interventions: Mobility General Worsening( 1:20 PM DOOR FURRING INSTALLER) No Lilo Kaminski RN Note: Expected end date: 11/17/2019 The goal is to maintain or improve your mobility at the optimum level for you. Interventions: PAIN General No Shira Sun RN Note: Expected end date: 01/18/2020 Patient's pain/discomfort is manageable. Interventions: Medical Devices Implanted Type Area [employer]aterpillar Operator Device Identifier Shelf Expiration Date Model / Serial / Lot Cmnt Bone Plc R+Ggnta 40gm Lf Grn Implanted:Qty: 1 on 10/11/2017 by Rajendra Ingram MD at [facility] Left: Knee Wan [employer] 12/01/2020 [id number] / / [id number] Description:12 BEADS IN LEFT KNEE ON VICRYL SUTURE 21 BEADS IN RIGHT KNEE ON VICRYL SUTURE Brng [id number] Vngrd Arcm Kn Ant Stab Implanted:Qty: 1 on 10/16/2017 by Rajendra Ingram MD at [facility] Left: Knee [employer] 06/09/2022 [id number] / / Brng [id number] Vngrd Arcm Kn Ant Stab Implanted:Qty: 1 on 10/16/2017 by Rajendra Ingram MD at [facility] Right: Knee [employer] 07/25/2022 [id number] / / Cmpnt Tibtry Bmt As Mx Kn Intlk Prm Lck Implanted:Qty: 1 on 10/16/2017 by Rajendra Ingram MD at [facility] Left: Knee [employer] 07/11/2027 [id number] / / Cmpnt Tibtry Bmt As Mx Kn Intlk Prm Lck Implanted:Qty: 1 on 10/16/2017 by Rajendra Ingram MD at [facility] Right: Knee [employer] 06/17/2027 [id number] / / Kam Kn Tot Rev 50% Of 2014 Implanted:Qty: 1 on 10/16/2017 by Rajendra Ingram MD at [facility] Wan [employer] KR2 KNEE TO T REV WAN BILL ONLY / / Cmpnt Glnd 38mm Std Glenosphere Sckt Geovany Implanted:Qty: 1 on 03/19/2019 by Pablo Liriano MD at [facility] Left: Shoulder Depuy Orth[employer]ics Inc 11/01/2023 [id number] / / Description:DXTND GLENOSPHER E STD R10AP--26/22 LG Dxtend Mod Cent Epi 1 Ocampo Implanted:Qty: 1 on 03/19/2019 by Pablo Liriano MD at [facility] Left: Shoulder 01/01/2024 1307-20-101 / / Description:delta xtend mudu lar centered epiphysis Global Unite Std Stem Sz 8 Implanted:Qty: 1 on 03/19/2019 by Pablo Liriano MD at [facility] Left: Shoulder 08/02/2027 1100-08-100 / / Description:global unite por ocoat standard stem Dxtend Stand Pe Cup D38 +3mm Implanted:Qty: 1 on 03/19/2019 by Pablo Liriano MD at [facility] Left: Shoulder 1307-38-203 / / [id number] Description:Delta xtend lyudmila ral PE cup standard Sys Shld Tot Arthroplst Rev Implanted:Qty: 1 on 03/19/2019 by Pablo Liriano MD at [facility] Left: Shoulder [employer] Inc S4 DEPUY / / Cmpnt Glnd 27mm Std Geovany Xtend Metaglene Implanted:Qty: 1 on 03/19/2019 by Pablo Liriano MD at [facility] Left: Shoulder [employer] 12/02/2023 1307-60-000 / / Description:DXTEND METAGLENE Dxtend Screw Lock D4.5x36mm Implanted:Qty: 1 on 03/19/2019 by Pablo Liriano MD at [facility] Left: Shoulder 12/02/2023 1307-90-036 / / Description:PACK ACL TISSUE FX CSTM SRG PRC DISP Screw 4.5mm 30mm Shldr Glnd Lck Geovany Implanted:Qty: 1 on 03/19/2019 by Pablo Liriano MD at [facility] Left: Shoulder [employer] 01/01/2024 1307-90-030 / / Description:DXTEND SCREW LOC K D4.7O65PC--33/22 LG 6.5mm Canellous Screw Implanted:Qty: 1 on 10/25/2020 by Anjelica Gutierres MD at [facility] Right: Ankle Wan [employer] 486-55-01 / / 6.5mm Cancellous Screw Implanted:Qty: 1 on 10/25/2020 by Anjelica Gutierres MD at [facility] Right: Ankle [employer] / / Cortical Screw 2.7mm Implanted:Qty: 1 on 10/25/2020 by Anjelica Gutierres MD at [facility] Right: Ankle [employer] [id number] / / Screw 3.5mm 32mm 2.5mm Slf-Tap Sm Hex Implanted:Qty: 2 on 10/25/2020 by Anjelica Gutierres MD at [facility] Right: Ankle [employer] [id number] / / Screw 3.5mm 45mm 2.5mm Slf-Tap Sm Hex Implanted:Qty: 1 on 10/25/2020 by Anjelica Gutierres MD at [facility] Right: Ankle [employer] [id number] / / Graft Bone Alfs + Dbm 1cc Algrf Pst Implanted:Qty: 1 on 10/25/2020 by Anjelica Gutierres MD at [facility] Right: Ankle Allosource 04/08/2021 [id number] / / [id number] Bsplt Glnd 30mm Rsp Shldr P2 Strl Lf Implanted:Qty: 1 on 04/26/2022 by Mariano Guzmán MD at [facility] Left: Shoulder [employer] 03/23/2028 508-32-204 / / [id number] Screw 5mm 14mm Shldr Lck Rsp Glnd Bsplt Implanted:Qty: 1 on 04/26/2022 by Mariano Guzmán MD at [facility] Left: Shoulder [employer] 03/25/2028 506-03-114 / / [id number] Screw 5mm 14mm Shldr Lck Rsp Glnd Bsplt Implanted:Qty: 1 on 04/26/2022 by Mariano Guzmán MD at [facility] Left: Shoulder [employer] 04/05/2028 506-03-114 / / [id number] Screw 5mm 30mm Shldr Lck Rsp Glnd Bsplt Implanted:Qty: 1 on 04/26/2022 by Mariano Guzmán MD at [facility] Left: Shoulder [employer] 03/13/2028 506-03-130 / / [id number] Screw 5mm 30mm Shldr Lck Rsp Glnd Bsplt Implanted:Qty: 1 on 04/26/2022 by Mariano Guzmán MD at [facility] Left: Shoulder [employer] 03/18/2028 506-03-130 / / [id number] Cmnt Bone Djo Srg Cblt 40gm Hvisc Strl Implanted:Qty: 1 on 04/26/2022 by Mariano Guzmán MD at [facility] Left: Shoulder [employer] 03/16/2023 600-15-000 / / [id number] Head Glnd 32mm Rsp Ntrl Shldr Rtn Screw Implanted:Qty: 1 on 04/26/2022 by Mariano Guzmán MD at [facility] Left: Shoulder [employer] 03/22/2028 508-32-101 / / [id number] Ins Sckt Rsp Djo Srg +4mm Hum Hxe+ Implanted:Qty: 1 on 04/26/2022 by Mariano Guzmán MD at [facility] Left: Shoulder [employer] 12/26/2026 509-01-432 / / [id number] Humeral Stem Reverse Size 8mm X 108mm Implanted:Qty: 1 on 04/26/2022 by Mariano Guzmán MD at [facility] Left: Shoulder [employer] 10/05/2027 530-08-108 / / [id number] Rstrc Cmnt Cl Ct 10mm Implanted:Qty: 1 on 04/26/2022 by Mariano Guzmán MD at [facility] Left: Shoulder [employer] 07/03/2024 415-00-100 / / [id number] Rsp Humeral Socket Insert 32mm Semi-Constrain ed Implanted:Qty: 1 on 06/14/2022 by Mariano Guzmán MD at [facility] Left: Shoulder [employer] 08/12/2026 509-01-032 / / [id number] Spcr Hum Djo Srg Rsp +8mm Mnblck Strl Lf Implanted:Qty: 1 on 06/14/2022 by Mariano Guzmán MD at [facility] Left: Shoulder [employer] 04/12/2028 510-08-000 / / [id number] Head Glnd 32mm Rsp Ntrl Shldr Rtn Screw Implanted:Qty: 1 on 06/14/2022 by Mariano Guzmán MD at [facility] Left: Shoulder [employer] 05/17/2028 508-32-101 / / [id number] Screws Implanted:Qty: 1 on 08/10/2023 by Jace Muller MD at [facility] Left: Ankle AR-8935-32 / / Description:3.0-4.0 ARTHREX VENDOR TRAY Screw Implanted:Qty: 1 on 08/10/2023 by Jace Muller MD at [facility] Left: Ankle Arthrex Inc AR-8940-34 / / Description:3.0-4.0 ARTHREX TRAY Kit Bngf 3cc Aug Inj Implanted:Qty: 1 on 01/14/2024 by Jace Muller MD at [facility] Left: Ankle BERD Inc 08/30/2026 [id number] / / [id number] Graft Bone Ignite 2 Mini 4cc Pwr Mx - [id number] Implanted:Qty: 1 on 01/14/2024 by Jace Muller MD at [facility] Left: Ankle BERD Inc 07/19/2028 [id number] / [id number] / Allosync Pure 5cc Implanted:Qty: 1 on 01/14/2024 by Jace Muller MD at [facility] Left: Ankle Arthrex Inc 08/20/2028 ABS-2009-05 / / [id number] 7.0 Screw 55 Implanted:Qty: 1 on 01/14/2024 by Jace Muller MD at [facility] Left: Ankle Arthrex Inc AR-8770-5H / / 7.0 Screw 40 Implanted:Qty: 1 on 01/14/2024 by Jace Muller MD at [facility] Left: Ankle Arthrex Inc AR-8770-40H / / Explanted Type Area [employer] Operator Device Identifier Shelf Expiration Date Model / Serial / Lot Cortical Screw 3.5mm Explanted:Qty: 1 on 10/25/2020 at [facility] Right: Ankle Wan [employer]omet [id number] / / 4.0mm Screw Explanted:Qty: 1 on 08/10/2023 at [facility] Left: Ankle AR-8940-32 / / Screw 3mm 20mm T10 Ft Slf-Tap Lck Strdr Explanted:Qty: 1 on 08/10/2023 by Felipe Bourne MD at [facility] Left: Ankle Arthrex Inc AR-8933L-20 / / Screw 3mm 18mm Va Slf-Tap Sld Lck Ankl Explanted:Qty: 1 on 08/10/2023 by Felipe Bourne MD at [facility] Left: Ankle Arthrex Inc AR-8933V-18 / / Wire K .062in 6in Fx 2 Troc Explanted:Qty: 2 on 08/10/2023 at [facility] Left: Ankle [employer] [id number] / / Screw 3.5mm 28mm T15 Ft Slf-Tap Sld Hxlb Implanted:Qty: 1 on 08/10/2023 by Jace Muller MD at [facility] Explanted:Qty: 1 on 01/14/2024 by Jace Muller MD at [facility] Left: Ankle Arthrex Inc AR-8935CL-2 8 / / Screw 3.5mm 26mm T15 Ft Slf-Tap Sld Hxlb Implanted:Qty: 1 on 08/10/2023 by Jace Muller MD at [facility] Explanted:Qty: 1 on 01/14/2024 by Jace Muller MD at [facility] Left: Ankle Arthrex Inc AR-8935CL-2 6 / / Plate Calc 7.5mm Stp Bone Implanted:Qty: 1 on 08/10/2023 by Jace Muller MD at [facility] Explanted:Qty: 1 on 01/14/2024 by Jace Muller MD at [facility] Left: Ankle Arthrex Inc AR-8949-075 / / 3.5mm Locking Screw Implanted:Qty: 1 on 08/10/2023 by Jace Muller MD at [facility] Explanted:Qty: 1 on 01/14/2024 by Jace Muller MD at [facility] Left: Ankle AR-8935CL-2 4 / / Description:3.0-4.0 ARTHREX VENDOR TRAY Screw 3mm 16mm Va Slf-Tap Sld Lck Ankl Implanted:Qty: 1 on 08/10/2023 by Felipe Bourne MD at [facility] Explanted:Qty: 1 on 01/14/2024 by Jace Muller MD at [facility] Left: Ankle Arthrex Inc AR-8933V-16 / / Screw 3mm 20mm Va Slf-Tap Sld Lck Ankl Implanted:Qty: 1 on 08/10/2023 by Felipe Bourne MD at [facility] Explanted:Qty: 1 on 01/14/2024 by Jace Muller MD at [facility] Left: Ankle Arthrex Inc AR-8933V-20 / / Procedures Procedure Name Priority Date/Time Associated Diagnosis Comments MRI LUMBAR SPINE WO CONTRAST Routine 07/16/2025 1:13 PM DOOR FURRING INSTALLER Lumbar pain Lumbar radiculopathy MRI CERVICAL SPINE WO CONTRAST Routine 07/16/2025 12:40 PM DOOR FURRING INSTALLER Neck pain Hx of cervical spine surgery XR LUMBAR SPINE 2 OR 3VW Routine 05/28/2025 1:05 PM CDT Lumbar pain COMPREHENSIVE METABOLIC PANEL Routine 09/17/2024 12:09 PM DOOR FURRING INSTALLER Positive double stranded 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 ANTIBODY + HIV P24 AG PANEL AM Draw 10/12/2017 4:43 AM DOOR FURRING INSTALLER HEPATITIS C ANTIBODY Routine 12/27/2015 5:08 PM CDT from Last 3 Months or Most Recently Relevant to Health Maintenance Results * MRI Lumbar Spine Wo Contrast (07/16/2025 1:13 PM DOOR FURRING INSTALLER) Anatomical Region Laterality Modality Spine Magnetic Resonan ce 07/16/2025 1:31 PM DOOR FURRING INSTALLER Impressions 07/16/2025 1:36 PM DOOR FURRING INSTALLER IMPRESSION: 1.Negative for fracture, suspicious intrinsic bony [...] Cyrus Rodriguez MD on 07/16/2025 1:36 PM Narrative 07/16/2025 1:36 PM DOOR FURRING INSTALLER PROCEDURE: MRI LUMBAR SPINE WO CONTRAST DATE/TIME [...] on a 1.0 Rosa Maria open [facility] MRI scanner. COMPARISON: Lumbar spine [...] standard protocol on a 1.0 [facility] MRI scanner. COMPARISON: Lumbar spine radiographs, [...] Cervical Spine Wo Contrast (07/16/2025 12:40 PM DOOR FURRING INSTALLER) Anatomical Region Laterality Modality Pelvis Magnetic Resonan ce 07/16/2025 12:4 8 PM DOOR FURRING INSTALLER Impressions 07/16/2025 12:53 PM DOOR FURRING INSTALLER IMPRESSION: 1.The postsurgical changes of prosthetic device [...] 07/16/2025 12:53 PM Narrative 07/16/2025 12:53 PM DOOR FURRING INSTALLER PROCEDURE: MRI CERVICAL SPINE WO CONTRAST DATE/TIME [...] standard protocol on a 1.0 [facility] MRI scanner. COMPARISON: CT cervical spine [...] 3VW Exam Date: 05/28/2025 1:05 PM Location: [facility] Indication: M54.50: Lumbar pain Findings/impression: The study [...] 3VW Exam Date: 05/28/2025 1:05 PM Location: [facility] Indication: M54.50: Lumbar pain Findings/impression: The study [...] (ABNORMAL) COMPREHENSIVE METABOLIC PANEL (09/17/2024 12:09 PM DOOR FURRING INSTALLER) BUN 17 7 - 26 mg/dL 09/17/2024 1:09 PM DOOR FURRING INSTALLER [facility] Creatinine 1.03(H) 0.56 - 0.96 [...] Lab Venipuncture / Unknown 09/17/2024 12:09 PM [facility] 09/17/2024 12:29 PM DOOR FURRING INSTALLER us Ev Lowery MD LAB - CHEMISTRY ORDERABLES Fi nal Result Performing Organization Address [facility]/ZIP Co de Phone Number [facility] [address] [place] [address], [facility] [phone] * HIV-1 HIV-2 ANTIBODY + HIV P24 AG PANEL (10/12/2017 4:43 AM DOOR FURRING INSTALLER) HIV1/2 Ab + P24 Ag Non Reactive Non Reactive 10/12/2017 11:04 AM DOOR FURRING INSTALLER [facility] Blood BLOOD SPECIMEN / Unknown Venipuncture / Unknown 10/12/2017 4:43 AM DOOR FURRING INSTALLER 10/12/2017 4:57 AM DOOR FURRING INSTALLER Narrative [facility] - 10/12/2017 11:04 AM DOOR FURRING INSTALLER No Laboratory evidence of HIV infection. Singh Moyer MD LAB - CHEMISTRY ORDERAB LES Final Result Performing Organization Address [facility] [[email or web address]] Co de Phone Number [facility] [address] [place] [address] * HEPATITIS C ANTIBODY (12/27/2015 5:08 PM CDT) Pathologist [facility] Hepatitis C Antibody Non-react [facility] Comment: Hepatitis C Antibody screen indicates [...] ORDERABLES Fi nal Result Performing Organization Address [facility]/ZIP Co de Phone Number [facility] [address] [place] [address], [facility] [phone] from Last 3 Months or Most Recently Relevant to Health Maintenance Insurance [facility] Advance Directives * Full Code (Latest [...] 8:14 PM 04/27/2022 6:26 PM Care Teams Practice Or Student Teacher Relationship Specialty [place] [address] [place] [address] [phone] PCP - General 10/22/18 [place] [address] [place] [address] [phone] Orthopedic Surgery 05/22/19 [place] [address] [place] [address] [phone] Medical Oncologist Medical Oncology 11/02/21 Charles Kingston MD [facility] [address] [phone] Airport Location Manager Cardiology 11/03/21
--- OUTSIDE RECORDS SUMMARY | 2025-07-29 17:57 | XMS_ITS ---
Author Organization [facility] Address [address] [place] [address] Phone Care Team Providers Care Business Objects Report Developer Name Role Phone LEILANI MABRY, NILESH Primary Care Provider [phone] Problems Includes: Active, inactive, and resolved Problems All Visits Onset Date Resolved Date Provider Condition S tatus Chronic Pain Syndrome 07/31/2023 NURY ECHAVARRIA PMHNP Active Last Documented On 3 1:32PM ; [facility] Plan of Treatment Referrals To Diagnosis Pain Management [address] [address] - Radiculopathy, lumbar region Note: consent for bilateral L4-5 transforaminal epidural Last Documented On 9 3:07PM ; [facility] Pain Management [address] [address] - Radiculopathy, lumbar region Note: consent for bilateral L4-5 transforaminal epiduralDr Sami Last Documented On 9 9:01AM ; [facility] Pain Management [address] [address] - Spondylosis w/o myelopathy or radiculopathy, cervical region Note: consent for bilateral C5, C6, C7 medial branch blocks Last Documented On 2 10:14AM ; [facility] Pain Management [facility] - [address] [place] [address] - Spondylosis w/o myelopathy or radiculopathy, lumbar region Note: consent for bilateral L3, L4. L5 medial branch blocks Last Documented On 3 10:10AM ; [facility] Psychiatrist NURY ECHAVARRIA PMHNP - [facility] - [address] [place] [address] - Chronic pain syndrome Note: Psychological evaluati on for implantable device therapies (spinal cord stimulation).Diagnosis: chronic pain syndrome, lumbosacral spondylosis with stenosis and neurogenic claudication recalcitrant to conservative care. Last Documented On 4 3:51PM ; [facility] Counselor [facility] - [address] [place] [address] - Chronic pain syndrome Note: [facility] Last Documented On 4 1:40PM ; [facility] Education and Decision Aids were provided during visit for: Pill Count: 25 HYSINGLA Last Documented On 4 8:54AM ; [facility] Pill Count: two HYSINGLA Last Documented On 4 9:14AM ; [facility] Pill Count: HYDROCODONE ~out of medication Last Documented On 4 9:14AM ; [facility] Pill Count: two HYSINGLA Last Documented On 4 11:00AM ; [facility] Pill Count: HYDROCODONE ~out of medication Last Documented On 4 11:43AM ; [facility] Pill Count: HYDROCODONE ~out of medication Last Documented On 4 9:34AM ; [facility] Pill Count: HYDROCODONE ~out of medication Last Documented On 4 10:37AM ; [facility] Pill Count: HYDROCODONE ~out of medication Last Documented On 4 1:44PM ; [facility] Pill Count: two HYDROCODONE Last Documented On 4 1:15PM ; [facility] Patient education about adve rse reactions to medication Last Documented On 3 10:43AM ; [facility] Reviewed side effects and Ri sks/Benefits analysis Last Documented On 3 10:43AM ; [facility] Pill Count: 19 HYDROCODONE Last Documented On 3 2:06PM ; [facility] Pill Count: 19 HYDROCODONE Last Documented On 3 10:39AM ; [facility] Pill Count: 50 HYDROCODONE Last Documented On 3 10:50AM ; [facility] Pill Count: one HYDROCODONE Last Documented On 3 3:49PM ; [facility] Pill Count: six HYDROCODONE Last Documented On 3 10:14AM ; [facility] Pill Count: 38 HYDROCODONE Last Documented On 3 1:23PM ; [facility] Pill Count: 49 HYDROCODONE Last Documented On 2 10:01AM ; [facility] Pill Count: 62 HYDROCODONE Last Documented On 2 3:28PM ; [facility] Pill Count: 61 HYDROCODONE Last Documented On 2 4:14PM ; [facility] Pill Count: 62 HYDROCODONE Last Documented On 2 4:21PM ; [facility] Pill Count: Patient did not bring pain medication to appointment for pill count, per policy. Advised in order to continue to safely prescribe opioids, medication must be brought to each appointment Last Documented On 2 4:14PM ; [facility] Pill Count: 82 HYDROCODONE Last Documented On 2 3:55PM ; [facility] Pill Count: Patient did not bring pain medication to appointment for pill count, per policy. Advised in order to continue to safely prescribe opioids, medication must be brought to each appointment Last Documented On 2 4:19PM ; [facility] Pill Count: Patient did not bring pain medication to appointment for pill count, per policy. Advised in order to continue to safely prescribe opioids, medication must be brought to each appointment Last Documented On 1 1:41PM ; [facility] Pill Count: five Not Appropr iate Had surgery and did not fill the pain med that was given after suregery Last Documented On 1 1:11PM ; [facility] Pill Count: 21 Appropriate Last Documented On 1 3:19PM ; [facility] Pill Count: 21 Appropriate Last Documented On 1 5:34PM ; [facility] Pill Count: 21 Appropriate Last Documented On 1 5:23PM ; [facility] Pill Count: ten Not Appropri ate ; discussed taking only as prescribed for back pain not myalgia symptoms related to covid Last Documented On 1 3:58PM ; [facility] Pill Count: 0 Last Documented On 0 3:51PM ; [facility] Pill Count: Patient did not bring pain medication to appointment for pill count, per policy. Advised in order to continue to safely prescribe opioids, medication must be brought to each appointment Last Documented On 0 3:02PM ; [facility] Pill Count: two Appropriate Last Documented On 0 7:51AM ; [facility] Pill Count: seven Appropriat e Last Documented On 0 10:51AM ; [facility] Pill Count: three Appropriat e Last Documented On 0 12:30PM ; [facility] Pill Count: seven Appropriat e Last Documented On 9 9:53AM ; [facility] Assessments Includes: Assessments for all patient encounters Findings Encounter Date Chronic pain syndrome TELEHEALTH with FELISHA Hemant العراقي [facility] 02/01/2024 Last Documented On 4 9:17AM ; [facility] Fibromyalgia TELEHEALTH with FELISHA L ARTHUR [facility] 02/01/2024 Last Documented On 4 9:17AM ; [facility] use of opiate analgesic TELEHEALTH wit h FELISHA L ARTHUR [facility] 02/01/2024 Last Documented On 4 9:17AM ; [facility] Lumbar spondylosis with radiculopathy TE LEHEALTH with FELISHA L ARTHUR [facility] 02/01/2024 Last Documented On 4 9:17AM ; [facility] Lumbar stenosis with neuroge michelle claudication TELEHEALTH with FELISHA L ARTHUR [facility] 02/01/2024 Last Documented On 4 9:17AM ; [facility] Sacroiliitis TELEHEALTH with FELISHA L ARTHUR ANP-BC 02/01/2024 Last Documented On 4 9:17AM ; [facility] Systemic lupus erythematosus TELEHEALTH with NAVARRO MOISES L ARTHUR ANP-BC 02/01/2024 Last Documented On 4 9:17AM ; [facility] Chronic pain syndrome TELEHEALTH with FELISHA L B DULCE MARIA ANP-BC 12/17/2023 Last Documented On 4 1:18PM ; [facility] Fibromyalgia TELEHEALTH with FELISHA L ARTHUR ANP-BC 12/17/2023 Last Documented On 4 1:18PM ; [facility] use of opiate analgesic TELEHEALTH wit h FELISHA L ARTHUR ANP-BC 12/17/2023 Last Documented On 4 1:18PM ; [facility] Lumbar spondylosis with radiculopathy TE LEHEALTH with FELISHA L ARTHUR ANP-BC 12/17/2023 Last Documented On 4 1:18PM ; [facility] Lumbar stenosis with neuroge michelle claudication TELEHEALTH with FELISHA L ARTHUR ANP-BC 12/17/2023 Last Documented On 4 1:18PM ; [facility] Sacroiliitis TELEHEALTH with FELISHA L ARTHUR ANP-BC 12/17/2023 Last Documented On 4 1:18PM ; [facility] Systemic lupus erythematosus TELEHEALTH with NAVARRO MOISES L ARTHUR ANP-BC 12/17/2023 Last Documented On 4 1:18PM ; [facility] Chronic pain syndrome TELEHEALTH with FELISHA L B DULCE MARIA ANP-BC 11/30/2023 Last Documented On 4 9:40AM ; [facility] Fibromyalgia TELEHEALTH with FELISHA L ARTHUR ANP-BC 11/30/2023 Last Documented On 4 9:40AM ; [facility] use of opiate analgesic TELEHEALTH wit h FELISHA L ARTHUR ANP-BC 11/30/2023 Last Documented On 4 9:40AM ; [facility] Lumbar spondylosis with radiculopathy TE LEHEALTH with FELISHA L ARTHUR ANP-BC 11/30/2023 Last Documented On 4 9:40AM ; [facility] Lumbar stenosis with neuroge michelle claudication TELEHEALTH with FELISHA L ARTHUR ANP-BC 11/30/2023 Last Documented On 4 9:40AM ; [facility] Sacroiliitis TELEHEALTH with FELISHA L ARTHUR ANP-BC 11/30/2023 Last Documented On 4 9:40AM ; [facility] Systemic lupus erythematosus TELEHEALTH with NAVARRO MOISES L ARTHUR ANP-BC 11/30/2023 Last Documented On 4 9:40AM ; [facility] Chronic pain syndrome PAIN MANAGEMENT FOLLOW UP with MAX SINGLETON MD 11/23/2023 Last Documented On 4 6:28PM ; [facility] Fibromyalgia PAIN MANAGEMENT FOLLOW UP with Akosua SINGLETON MD 11/23/2023 Last Documented On 4 6:28PM ; [facility] use of opiate analgesic PAIN M ANAGEMENT FOLLOW UP with MAX SINGLETON MD 11/23/2023 Last Documented On 4 6:28PM ; [facility] Lumbar spondylosis with radiculopathy PA IN MANAGEMENT FOLLOW UP with MAX SINGLETON MD 11/23/2023 Last Documented On 4 6:28PM ; [facility] Lumbar stenosis with neuroge michelle claudication PAIN MANAGEMENT FOLLOW UP with MAX SINGLETON MD 11/23/2023 Last Documented On 4 6:28PM ; [facility] Sacroiliitis PAIN MANAGEMENT FOLLOW UP with Akosua SINGLETON MD 11/23/2023 Last Documented On 4 6:28PM ; [facility] Systemic lupus erythematosus PAIN MANAGE MENT FOLLOW UP with MAX SINGLETON MD 11/23/2023 Last Documented On 4 6:28PM ; [facility] Chronic pain syndrome PAIN MANAGEMENT FO LLOW UP with FELISHA L ARTHUR ANP-BC 11/07/2023 Last Documented On 4 3:07PM ; [facility] Fibromyalgia PAIN MANAGEMENT FOLLOW UP with T MULU L ARTHUR ANP-BC 11/07/2023 Last Documented On 4 3:07PM ; [facility] 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 PAIN M ANAGEMENT FOLLOW UP with FELISHA L ARTHUR ANP-BC 11/07/2023 Last Documented On 4 3:07PM ; [facility] Lumbar spondylosis with radiculopathy PA IN MANAGEMENT FOLLOW UP with FELISHA L ARTHUR ANP-BC 11/07/2023 Last Documented On 4 3:07PM ; [facility] Lumbar stenosis with neuroge michelle claudication PAIN MANAGEMENT FOLLOW UP with FELISHA L ARTHUR ANP-BC 11/07/2023 Last Documented On 4 3:07PM ; [facility] Sacroiliitis PAIN MANAGEMENT FOLLOW UP with T MULU L ARTHUR ANP-BC 11/07/2023 Last Documented On 4 3:07PM ; [facility] Systemic lupus erythematosus PAIN MANAGE MENT FOLLOW UP with FELISHA L ARTHUR ANP-BC 11/07/2023 Last Documented On 4 3:07PM ; [facility] Chronic pain syndrome PAIN MANAGEMENT FO LLOW UP with FELISHA L ARTHUR ANP-BC 10/08/2023 Last Documented On 4 1:55PM ; [facility] Fibromyalgia PAIN MANAGEMENT FOLLOW UP with T MULU L ARTHUR ANP-BC 10/08/2023 Last Documented On 4 1:55PM ; [facility] use of opiate analgesic PAIN M ANAGEMENT FOLLOW UP with FELISHA L ARTHUR ANP-BC 10/08/2023 Last Documented On 4 1:55PM ; [facility] Lumbar spondylosis with radiculopathy PA IN MANAGEMENT FOLLOW UP with FELISHA L ARTHUR ANP-BC 10/08/2023 Last Documented On 4 1:55PM ; [facility] Lumbar stenosis with neuroge michelle claudication PAIN MANAGEMENT FOLLOW UP with FELISHA L ARTHUR ANP-BC 10/08/2023 Last Documented On 4 1:55PM ; [facility] Sacroiliitis PAIN MANAGEMENT FOLLOW UP with Ally IGBSON ANP- 10/08/2023 Last Documented On 4 1:55PM ; [facility] Systemic lupus erythematosus PAIN MANAGE MENT FOLLOW UP with FELISHA ZENGS ANP- 10/08/2023 Last Documented On 4 1:55PM ; [facility] [G89.4 - Chronic pain syndro me] chronic pain syndrome PSYCH NEW PATIENT EXAM 17 YEARS AND OLDER with NURY ECHAVARRIA PMHNP 07/31/2023 Last Documented On 3 2:52PM ; [facility] Chronic pain syndrome PAIN MANAGEMENT FOLLOW UP with MAX SINGLETON MD 07/12/2023 Last Documented On 3 2:54PM ; [facility] Fibromyalgia PAIN MANAGEMENT FOLLOW UP with Akosua SINGLETON MD 07/12/2023 Last Documented On 3 2:54PM ; [facility] use of opiate analgesic PAIN M ANAGEMENT FOLLOW UP with MAX SINGLETON MD 07/12/2023 Last Documented On 3 2:54PM ; [facility] Lumbar spondylosis with radiculopathy PA IN MANAGEMENT FOLLOW UP with MAX SINGLETON MD 07/12/2023 Last Documented On 3 2:54PM ; [facility] Lumbar stenosis with neuroge michelle claudication PAIN MANAGEMENT FOLLOW UP with MAX SINGLETON MD 07/12/2023 Last Documented On 3 2:54PM ; [facility] Sacroiliitis PAIN MANAGEMENT FOLLOW UP with Akosua SINGLETON MD 07/12/2023 Last Documented On 3 2:54PM ; [facility] Systemic lupus erythematosus PAIN MANAGE MENT FOLLOW UP with MAX SINGLETON MD 07/12/2023 Last Documented On 3 2:54PM ; [facility] Chronic pain syndrome PAIN MANAGEMENT FO LLOW UP with [facility]HA [facility] 07/[facility]/2023 Last Documented On 3 11:17AM ; [facility] Fibromyalgia PAIN MANAGEMENT FOLLOW UP with Ally GIBSON [facility]- 07/05/2023 Last Documented On 3 11:17AM ; [facility] use of opiate analgesic PAIN M ANAGEMENT FOLLOW UP with FELISHA L ARTHUR ANP-BC 07/05/2023 Last Documented On 3 11:17AM ; [facility] Lumbar spondylosis with radiculopathy PA IN MANAGEMENT FOLLOW UP with FELISHA L ARTHUR ANP-BC 07/05/2023 Last Documented On 3 11:17AM ; [facility] Lumbar stenosis with neuroge michelle claudication PAIN MANAGEMENT FOLLOW UP with FELISHA L ARTHUR ANP-BC 07/05/2023 Last Documented On 3 11:17AM ; [facility] Sacroiliitis PAIN MANAGEMENT FOLLOW UP with T MULU L ARTHUR ANP-BC 07/05/2023 Last Documented On 3 11:17AM ; [facility] Systemic lupus erythematosus PAIN MANAGE MENT FOLLOW UP with FELISHA L ARTHUR ANP-BC 07/05/2023 Last Documented On 3 11:17AM ; [facility] Cervical spondylosis without myelopathy or radiculopathy TELEHEALTH with FELISHA L ARTHUR ANP-BC 06/05/2023 Last Documented On 3 12:57PM ; [facility] Chronic pain syndrome TELEHEALTH with FELISHA L B DULCE MARIA ANP-BC 06/05/2023 Last Documented On 3 12:57PM ; [facility] Fibromyalgia TELEHEALTH with FELISHA L ARTHUR ANP-BC 06/05/2023 Last Documented On 3 12:57PM ; [facility] use of opiate analgesic TELEHEALTH wit h FELISHA L ARTHUR ANP-BC 06/05/2023 Last Documented On 3 12:57PM ; [facility] Lumbar spondylosis with radiculopathy TE LEHEALTH with FELISHA L ARTHUR ANP-BC 06/05/2023 Last Documented On 3 12:57PM ; [facility] Lumbar stenosis with neuroge michelle claudication TELEHEALTH with FELISHA L ARTHUR ANP-BC 06/05/2023 Last Documented On 3 12:57PM ; [facility] Sacroiliitis TELEHEALTH with FELISHA L ARTHUR ANP-BC 06/05/2023 Last Documented On 3 12:57PM ; [facility] Systemic lupus erythematosus TELEHEALTH with NAVARRO MOISES L ARTHUR ANP-BC 06/05/2023 Last Documented On 3 12:57PM ; [facility] Cervical spondylosis without myelopathy or radiculopathy PAIN MANAGEMENT FOLLOW UP with FELISHA L ARTHUR ANP-BC 03/23/2023 Last Documented On 3 11:03AM ; [facility] Chronic pain syndrome PAIN MANAGEMENT FO LLOW UP with FELISHA L ARTHUR ANP-BC 03/23/2023 Last Documented On 3 11:03AM ; [facility] Fibromyalgia PAIN MANAGEMENT FOLLOW UP with T MULU L ARTHUR ANP-BC 03/23/2023 Last Documented On 3 11:03AM ; [facility] 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 PAIN M ANAGEMENT FOLLOW UP with FELISHA L ARTHUR ANP-BC 03/23/2023 Last Documented On 3 11:03AM ; [facility] Lumbar spondylosis with radiculopathy PA IN MANAGEMENT FOLLOW UP with FELISHA L ARTHUR ANP-BC 03/23/2023 Last Documented On 3 11:03AM ; [facility] Lumbar stenosis with neuroge michelle claudication PAIN MANAGEMENT FOLLOW UP with FELISHA L ARTHUR ANP-BC 03/23/2023 Last Documented On 3 11:03AM ; [facility] Sacroiliitis PAIN MANAGEMENT FOLLOW UP with T MULU L ARTHUR ANP-BC 03/23/2023 Last Documented On 3 11:03AM ; [facility] Systemic lupus erythematosus PAIN MANAGE MENT FOLLOW UP with FELISHA L ARTHUR ANP-BC 03/23/2023 Last Documented On 3 11:03AM ; [facility] Cervical spondylosis without myelopathy or radiculopathy PAIN MANAGEMENT FOLLOW UP with FELISHA L ARTHUR ANP-BC 02/05/2023 Last Documented On 3 10:23AM ; [facility] Chronic pain syndrome PAIN MANAGEMENT FO LLOW UP with FELISHA L ARTHUR ANP-BC 02/05/2023 Last Documented On 3 10:23AM ; [facility] Fibromyalgia PAIN MANAGEMENT FOLLOW UP with T MULU L ARTHUR ANP-BC 02/05/2023 Last Documented On 3 10:23AM ; [facility] use of opiate analgesic PAIN M ANAGEMENT FOLLOW UP with FELISHA L ARTHUR ANP-BC 02/05/2023 Last Documented On 3 10:23AM ; [facility] Lumbar spondylosis with radiculopathy PA IN MANAGEMENT FOLLOW UP with FELISHA L ARTHUR ANP-BC 02/05/2023 Last Documented On 3 10:23AM ; [facility] Lumbar stenosis with neuroge michelle claudication PAIN MANAGEMENT FOLLOW UP with FELISHA L ARTHUR ANP-BC 02/05/2023 Last Documented On 3 10:23AM ; [facility] Sacroiliitis PAIN MANAGEMENT FOLLOW UP with T MULU L ARTHUR ANP-BC 02/05/2023 Last Documented On 3 10:23AM ; [facility] Systemic lupus erythematosus PAIN MANAGE MENT FOLLOW UP with FELISHA L ARTHUR ANP-BC 02/05/2023 Last Documented On 3 10:23AM ; [facility] Cervical spondylosis without myelopathy or radiculopathy PAIN MANAGEMENT FOLLOW UP with FELISHA L ARTHUR ANP-BC 11/28/2022 Last Documented On 3 2:12PM ; [facility] Cervicalgia PAIN MANAGEMENT FOLLOW UP with T MULU L ARTHUR ANP-BC 11/28/2022 Last Documented On 3 2:12PM ; [facility] Chronic pain syndrome PAIN MANAGEMENT FO LLOW UP with FELISHA L ARTHUR ANP-BC 11/28/2022 Last Documented On 3 2:12PM ; [facility] Fibromyalgia PAIN MANAGEMENT FOLLOW UP with T MULU L ARTHUR ANP-BC 11/28/2022 Last Documented On 3 2:12PM ; [facility] Localized lumbar osteoarthritis PAIN MAN AGEMENT FOLLOW UP with FELISHA L ARTHUR ANP-BC 11/28/2022 Last Documented On 3 2:12PM ; [facility] 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 PAIN M ANAGEMENT FOLLOW UP with FELISHA L ARTHUR ANP-BC 11/28/2022 Last Documented On 3 2:12PM ; [facility] Lumbosacral spinal stenosis PAIN MANAGEM ENT FOLLOW UP with FELISHA L ARTHUR ANP-BC 11/28/2022 Last Documented On 3 2:12PM ; [facility] Sacroiliitis PAIN MANAGEMENT FOLLOW UP with T MULU L ARTHUR ANP-BC 11/28/2022 Last Documented On 3 2:12PM ; [facility] Systemic lupus erythematosus PAIN MANAGE MENT FOLLOW UP with FELISHA L ARTHUR ANP-BC 11/28/2022 Last Documented On 3 2:12PM ; [facility] Cervical spondylosis without myelopathy or radiculopathy PAIN MANAGEMENT FOLLOW UP with FELISHA L ARTHUR ANP-BC 08/17/2022 Last Documented On 2 10:33AM ; [facility] Cervicalgia PAIN MANAGEMENT FOLLOW UP with T MULU L ARTHUR ANP-BC 08/17/2022 Last Documented On 2 10:33AM ; [facility] Chronic pain syndrome PAIN MANAGEMENT FO LLOW UP with FELISHA L ARTHUR ANP-BC 08/17/2022 Last Documented On 2 10:33AM ; [facility] Fibromyalgia PAIN MANAGEMENT FOLLOW UP with T MULU L ARTHUR ANP-BC 08/17/2022 Last Documented On 2 10:33AM ; [facility] [facility] Localized lumbar osteoarthritis PAIN MAN AGEMENT FOLLOW UP with FELISHA L ARTHUR ANP-BC 08/17/2022 Last Documented On 2 10:33AM ; [facility] use of opiate analgesic PAIN M ANAGEMENT FOLLOW UP with FELISHA L ARTHUR ANP-BC 08/17/2022 Last Documented On 2 10:33AM ; [facility] Lumbosacral spinal stenosis PAIN MANAGEM ENT FOLLOW UP with FELISHA L ARTHUR ANP-BC 08/17/2022 Last Documented On 2 10:33AM ; [facility] Sacroiliitis PAIN MANAGEMENT FOLLOW UP with T MULU L ARTHUR ANP-BC 08/17/2022 Last Documented On 2 10:33AM ; [facility] Systemic lupus erythematosus PAIN MANAGE MENT FOLLOW UP with FELISHA L ARTHUR ANP-BC 08/17/2022 Last Documented On 2 10:33AM ; [facility] Cervical spondylosis without myelopathy or radiculopathy PAIN MANAGEMENT FOLLOW UP with FELISHA L ARTHUR ANP-BC 05/09/2022 Last Documented On 2 3:54PM ; [facility] Cervicalgia PAIN MANAGEMENT FOLLOW UP with T MULU L ARTHUR ANP-BC 05/09/2022 Last Documented On 2 3:54PM ; [facility] Chronic pain syndrome PAIN MANAGEMENT FO LLOW UP with FELISHA L ARTHUR ANP-BC 05/09/2022 Last Documented On 2 3:54PM ; [facility] Fibromyalgia PAIN MANAGEMENT FOLLOW UP with T MULU L ARTHUR ANP-BC 05/09/2022 Last Documented On 2 3:54PM ; [facility] Localized lumbar osteoarthritis PAIN MAN AGEMENT FOLLOW UP with FELISHA L ARTHUR ANP-BC 05/09/2022 Last Documented On 2 3:54PM ; [facility] 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 PAIN M ANAGEMENT FOLLOW UP with FELISHA L ARTHUR ANP-BC 05/09/2022 Last Documented On 2 3:54PM ; [facility] Lumbosacral spinal stenosis PAIN MANAGEM ENT FOLLOW UP with FELISHA L ARTHUR ANP-BC 05/09/2022 Last Documented On 2 3:54PM ; [facility] Sacroiliitis PAIN MANAGEMENT FOLLOW UP with T MULU L ARTHUR ANP-BC 05/09/2022 Last Documented On 2 3:54PM ; [facility] Systemic lupus erythematosus PAIN MANAGE MENT FOLLOW UP with FELISHA L ARTHUR ANP-BC 05/09/2022 Last Documented On 2 3:54PM ; [facility] Cervical spondylosis without myelopathy or radiculopathy PAIN MANAGEMENT FOLLOW UP with FELISHA L ARTHUR ANP-BC 02/09/2022 Last Documented On 2 4:29PM ; [facility] Cervicalgia PAIN MANAGEMENT FOLLOW UP with T MULU L ARTHUR ANP-BC 02/09/2022 Last Documented On 2 4:29PM ; [facility] Chronic pain syndrome PAIN MANAGEMENT FO LLOW UP with FELISHA L ARTHUR ANP-BC 02/09/2022 Last Documented On 2 4:29PM ; [facility] Fibromyalgia PAIN MANAGEMENT FOLLOW UP with T MULU L ARTHUR ANP-BC 02/09/2022 Last Documented On 2 4:29PM ; [facility] Localized lumbar osteoarthritis PAIN MAN AGEMENT FOLLOW UP with FELISHA L ARTHUR ANP-BC 02/09/2022 Last Documented On 2 4:29PM ; [facility] use of opiate analgesic PAIN M ANAGEMENT FOLLOW UP with FELISHA L ARTHUR ANP-BC 02/09/2022 Last Documented On 2 4:29PM ; [facility] Lumbosacral spinal stenosis PAIN MANAGEM ENT FOLLOW UP with FELISHA L ARTHUR ANP-BC 02/09/2022 Last Documented On 2 4:29PM ; [facility] Sacroiliitis PAIN MANAGEMENT FOLLOW UP with T MULU L ARTHUR ANP-BC 02/09/2022 Last Documented On 2 4:29PM ; [facility] Systemic lupus erythematosus PAIN MANAGE MENT FOLLOW UP with FELISHA L ARTHUR ANP-BC 02/09/2022 Last Documented On 2 4:29PM ; [facility] Cervical spondylosis without myelopathy or radiculopathy PAIN MANAGEMENT FOLLOW UP with FELISHA L ARTHUR ANP-BC 11/28/2021 Last Documented On 2 4:53PM ; [facility] Cervicalgia PAIN MANAGEMENT FOLLOW UP with T MULU L ARTHUR ANP-BC 11/28/2021 Last Documented On 2 4:53PM ; [facility] Chronic pain syndrome PAIN MANAGEMENT FO LLOW UP with FELISHA L ARTHUR ANP-BC 11/28/2021 Last Documented On 2 4:53PM ; [facility] Fibromyalgia PAIN MANAGEMENT FOLLOW UP with T MULU L ARTHUR ANP-BC 11/28/2021 Last Documented On 2 4:53PM ; [facility] Localized lumbar osteoarthritis PAIN MAN AGEMENT FOLLOW UP with FELISHA L ARTHUR ANP-BC 11/28/2021 Last Documented On 2 4:53PM ; [facility] 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 PAIN M ANAGEMENT FOLLOW UP with FELISHA L ARTHUR ANP-BC 11/28/2021 Last Documented On 2 4:53PM ; [facility] Lumbosacral spinal stenosis PAIN MANAGEM ENT FOLLOW UP with FELISHA L ARTHUR ANP-BC 11/28/2021 Last Documented On 2 4:53PM ; [facility] Sacroiliitis PAIN MANAGEMENT FOLLOW UP with T MULU L ARTHUR ANP-BC 11/28/2021 Last Documented On 2 4:53PM ; [facility] Systemic lupus erythematosus PAIN MANAGE MENT FOLLOW UP with FELISHA L ARTHUR ANP-BC 11/28/2021 Last Documented On 2 4:53PM ; [facility] Cervical spondylosis without myelopathy or radiculopathy PAIN MANAGEMENT FOLLOW UP with FELISHA L ARTHUR ANP-BC 09/21/2021 Last Documented On 2 8:49AM ; [facility] Cervicalgia PAIN MANAGEMENT FOLLOW UP with T MULU L ARTHUR ANP-BC 09/21/2021 Last Documented On 2 8:49AM ; [facility] Chronic pain syndrome PAIN MANAGEMENT FO LLOW UP with FELISHA L ARTHUR ANP-BC 09/21/2021 Last Documented On 2 8:49AM ; [facility] Fibromyalgia PAIN MANAGEMENT FOLLOW UP with T MULU L ARTHUR ANP-BC 09/21/2021 Last Documented On 2 8:49AM ; [facility] Localized lumbar osteoarthritis PAIN MAN AGEMENT FOLLOW UP with FELISHA L ARTHUR ANP-BC 09/21/2021 Last Documented On 2 8:49AM ; [facility] use of opiate analgesic PAIN M ANAGEMENT FOLLOW UP with FELISHA L ARTHUR ANP-BC 09/21/2021 Last Documented On 2 8:49AM ; [facility] Lumbosacral spinal stenosis PAIN MANAGEM ENT FOLLOW UP with FELISHA L ARTHUR ANP-BC 09/21/2021 Last Documented On 2 8:49AM ; [facility] Sacroiliitis PAIN MANAGEMENT FOLLOW UP with T MULU L ARTHUR ANP-BC 09/21/2021 Last Documented On 2 8:49AM ; [facility] Systemic lupus erythematosus PAIN MANAGE MENT FOLLOW UP with FELISHA L ARTHUR ANP-BC 09/21/2021 Last Documented On 2 8:49AM ; [facility] Cervical spondylosis without myelopathy or radiculopathy PAIN MANAGEMENT FOLLOW UP with FELISHA L ARTHUR ANP-BC 06/14/2021 Last Documented On 1 9:23AM ; [facility] Cervicalgia PAIN MANAGEMENT FOLLOW UP with T MULU L ARTHUR ANP-BC 06/14/2021 Last Documented On 1 9:23AM ; [facility] Chronic pain syndrome PAIN MANAGEMENT FO LLOW UP with FELISHA L ARTHUR ANP-BC 06/14/2021 Last Documented On 1 9:23AM ; [facility] Fibromyalgia PAIN MANAGEMENT FOLLOW UP with T MULU L ARTHUR ANP-BC 06/14/2021 Last Documented On 1 9:23AM ; [facility] Localized lumbar osteoarthritis PAIN MAN AGEMENT FOLLOW UP with FELISHA L ARTHUR ANP-BC 06/14/2021 Last Documented On 1 9:23AM ; [facility] use of opiate analgesic PAIN M ANAGEMENT FOLLOW UP with FELISHA L ARTHUR ANP-BC 06/14/2021 Last Documented On 1 9:23AM ; [facility] Lumbosacral spinal stenosis PAIN MANAGEM ENT FOLLOW UP with FELISHA L ARTHUR ANP-BC 06/14/2021 Last Documented On 1 9:23AM ; [facility] Sacroiliitis PAIN MANAGEMENT FOLLOW UP with T MULU L ARTHUR ANP-BC 06/14/2021 Last Documented On 1 9:23AM ; [facility] Systemic lupus erythematosus PAIN MANAGE MENT FOLLOW UP with FELISHA L ARTHUR ANP-BC 06/14/2021 Last Documented On 1 9:23AM ; [facility] Cervicalgia PAIN MANAGEMENT FOLLOW UP with T MULU L ARTHUR ANP-BC 04/13/2021 Last Documented On 1 12:19PM ; [facility] Chronic pain syndrome PAIN MANAGEMENT FO LLOW UP with FELISHA L ARTHUR ANP-BC 04/13/2021 Last Documented On 1 12:19PM ; [facility] Fibromyalgia PAIN MANAGEMENT FOLLOW UP with T MULU L ARTHUR ANP-BC 04/13/2021 Last Documented On 1 12:19PM ; [facility] Localized lumbar osteoarthritis PAIN MAN AGEMENT FOLLOW UP with FELISHA L ARTHUR ANP-BC 04/13/2021 Last Documented On 1 12:19PM ; [facility] use of opiate analgesic PAIN M ANAGEMENT FOLLOW UP with FELISHA L ARTHUR ANP-BC 04/13/2021 Last Documented On 1 12:19PM ; [facility] Lumbosacral spinal stenosis PAIN MANAGEM ENT FOLLOW UP with FELISHA L ARTHUR ANP-BC 04/13/2021 Last Documented On 1 12:19PM ; [facility] Sacroiliitis PAIN MANAGEMENT FOLLOW UP with T MULU L ARTHUR ANP-BC 04/13/2021 Last Documented On 1 12:19PM ; [facility] Systemic lupus erythematosus PAIN MANAGE MENT FOLLOW UP with FELISHA L ARTHUR ANP-BC 04/13/2021 Last Documented On 1 12:19PM ; [facility] Cervicalgia PAIN MANAGEMENT FOLLOW UP with T MULU L ARTHUR ANP-BC 2021 Last Documented On 1 4:57PM ; [facility] Chronic pain syndrome PAIN MANAGEMENT FO LLOW UP with FELISHA L ARTHUR ANP-BC 2021 Last Documented On 1 4:57PM ; [facility] Fibromyalgia PAIN MANAGEMENT FOLLOW UP with T MULU L ARTHUR ANP-BC 2021 Last Documented On 1 4:57PM ; [facility] Localized lumbar osteoarthritis PAIN MAN AGEMENT FOLLOW UP with FELISHA L ARTHUR ANP-BC 2021 Last Documented On 1 4:57PM ; [facility] use of opiate analgesic PAIN M ANAGEMENT FOLLOW UP with FELISHA L ARTHUR ANP-BC 2021 Last Documented On 1 4:57PM ; [facility] Lumbosacral spinal stenosis PAIN MANAGEM ENT FOLLOW UP with FELISHA L ARTHUR ANP-BC 2021 Last Documented On 1 4:57PM ; [facility] Sacroiliitis PAIN MANAGEMENT FOLLOW UP with T MULU L ARTHUR ANP-BC 2021 Last Documented On 1 4:57PM ; [facility] Systemic lupus erythematosus PAIN MANAGE MENT FOLLOW UP with FELISHA L ARTHUR ANP-BC 2021 Last Documented On 1 4:57PM ; [facility] Cervicalgia PAIN MANAGEMENT FOLLOW UP with T MULU L ARTHUR ANP-BC 01/04/2021 Last Documented On 1 5:35PM ; [facility] Chronic pain syndrome PAIN MANAGEMENT FO LLOW UP with FELISHA L ARTHUR ANP-BC 01/04/2021 Last Documented On 1 5:35PM ; [facility] Fibromyalgia PAIN MANAGEMENT FOLLOW UP with T MULU L ARTHUR ANP-BC 01/04/2021 Last Documented On 1 5:35PM ; [facility] Localized lumbar osteoarthritis PAIN MAN AGEMENT FOLLOW UP with FELISHA L ARTHUR ANP- 01/04/2021 Last Documented On 1 5:35PM ; [facility] use of opiate analgesic PAIN M ANAGEMENT FOLLOW UP with FELISHA L ARTHUR ANP- 01/04/2021 Last Documented On 1 5:35PM ; [facility] Lumbosacral spinal stenosis PAIN MANAGEM ENT FOLLOW UP with FELISHA L ARTHUR ANP- 01/04/2021 Last Documented On 1 5:35PM ; [facility] Sacroiliitis PAIN MANAGEMENT FOLLOW UP with T MULU L ARTHUR ANP- 01/04/2021 Last Documented On 1 5:35PM ; [facility] Systemic lupus erythematosus PAIN MANAGE MENT FOLLOW UP with FELISHA L ARTHUR ANP- 01/04/2021 Last Documented On 1 5:35PM ; [facility] Chronic pain syndrome PAIN MANAGEMENT FO LLOW UP with FELISHA L ARTHUR [facility] 10/07/2020 Last Documented On 1 8:11AM ; [facility] Fibromyalgia PAIN MANAGEMENT FOLLOW UP with T MULU L ARTHUR ANP- 10/07/2020 Last Documented On 1 8:11AM ; [facility] Lumbosacral spinal stenosis PAIN MANAGEM ENT FOLLOW UP with [facility]HA L [facility]2020 Last Documented On 1 8:11AM ; [facility] Sacroiliitis PAIN MANAGEMENT FOLLOW UP with T MULU L ARTHUR [facility] 10/07/2020 Last Documented On 1 8:11AM ; [facility] Systemic lupus erythematosus PAIN MANAGE MENT FOLLOW UP with FELISHA L AR[facility]UR [facility]/2020 Last Documented On 1 8:11AM ; [facility] Chronic pain syndrome TELEHEALTH with FELISHA Hemant [place] [facility] 09/09/2020 Last Documented On 1 4:00PM ; [facility] Fibromyalgia TELEHEALTH with FELISHA L ARTHUR [facility] 09/09/2020 Last Documented On 1 4:00PM ; [facility] Lumbosacral spinal stenosis TELEHEALTH with TAMM IE L ARTHUR ANP-BC 09/09/2020 Last Documented On 1 4:00PM ; [facility] Sacroiliitis TELEHEALTH with FELISHA L ARTHUR ANP-BC 09/09/2020 Last Documented On 1 4:00PM ; [facility] Systemic lupus erythematosus TELEHEALTH with NAVARRO MOISES L ARTHUR ANP-BC 09/09/2020 Last Documented On 1 4:00PM ; [facility] Chronic pain syndrome PAIN MANAGEMENT FO LLOW UP with FELISHA L ARTHUR ANP-BC 06/10/2020 Last Documented On 0 12:01PM ; [facility] Fibromyalgia PAIN MANAGEMENT FOLLOW UP with T MULU L ARTHUR ANP-BC 06/10/2020 Last Documented On 0 12:01PM ; [facility] Lumbosacral spinal stenosis PAIN MANAGEM ENT FOLLOW UP with FELISHA L ARTHUR ANP-BC 06/10/2020 Last Documented On 0 12:01PM ; [facility] Sacroiliitis PAIN MANAGEMENT FOLLOW UP with T MULU L ARTHUR ANP-BC 06/10/2020 Last Documented On 0 12:01PM ; [facility] Systemic lupus erythematosus PAIN MANAGE MENT FOLLOW UP with FELISHA L ARTHUR ANP-BC 06/10/2020 Last Documented On 0 12:01PM ; [facility] Chronic pain syndrome PAIN MANAGEMENT FO LLOW UP with FELISHA L ARTHUR ANP-BC 05/11/2020 Last Documented On 0 3:30PM ; [facility] Fibromyalgia PAIN MANAGEMENT FOLLOW UP with T MULU L ARTHUR ANP-BC 05/11/2020 Last Documented On 0 3:30PM ; [facility] Lumbosacral spinal stenosis PAIN MANAGEM ENT FOLLOW UP with FELISHA L ARTHUR ANP-BC 05/11/2020 Last Documented On 0 3:30PM ; [facility] Sacroiliitis PAIN MANAGEMENT FOLLOW UP with T MULU L ARTHUR ANP-BC 05/11/2020 Last Documented On 0 3:30PM ; [facility] Systemic lupus erythematosus PAIN MANAGE MENT FOLLOW UP with FELISHA L ARTHUR ANP-BC 05/11/2020 Last Documented On 0 3:30PM ; [facility] Chronic pain syndrome PAIN MANAGEMENT FO LLOW UP with FELISHA L ARTHUR ANP- 02/09/2020 Last Documented On 0 7:52AM ; [facility] Fibromyalgia PAIN MANAGEMENT FOLLOW UP with T MULU L ARTHUR ANP- 02/09/2020 Last Documented On 0 7:52AM ; [facility] Lumbosacral spinal stenosis PAIN MANAGEM ENT FOLLOW UP with FELISHA L ARTHUR ANP- 02/09/2020 Last Documented On 0 7:52AM ; [facility] Sacroiliitis PAIN MANAGEMENT FOLLOW UP with T MULU L ARTHUR ANP- 02/09/2020 Last Documented On 0 7:52AM ; [facility] Systemic lupus erythematosus PAIN MANAGE MENT FOLLOW UP with FELISHA L ARTHUR ANP- 02/09/2020 Last Documented On 0 7:52AM ; [facility] Chronic pain syndrome TELEHEALTH with FELISHA L B DULCE MARIA [facility] 01/08/2020 Last Documented On 0 11:01AM ; [facility] Fibromyalgia TELEHEALTH with FELISHA L ARTHUR [facility] 01/08/2020 Last Documented On 0 11:01AM ; [facility] Lumbosacral spinal stenosis TELEHEALTH with TAMM IE L ARTHUR [facility] 01/08/2020 Last Documented On 0 11:01AM ; [facility] Sacroiliitis TELEHEALTH with FELISHA L ARTHUR [facility] 01/08/2020 Last Documented On 0 11:01AM ; [facility] Systemic lupus erythematosus TELEHEALTH with NAVARRO MOISES L ARTHUR [facility] 01/08/2020 Last Documented On 0 11:01AM ; [facility] Chronic pain syndrome PAIN MANAGEMENT FO LLOW UP with FELISHA L ARTHUR [facility] 10/10/2019 Last Documented On 0 12:34PM ; [facility] Fibromyalgia PAIN MANAGEMENT FOLLOW UP with T MULU L ARTHUR ANP- 10/10/2019 Last Documented On 0 12:34PM ; [facility] Lumbosacral spinal stenosis PAIN MANAGEM ENT FOLLOW UP with FELISHA L [facility]THUR [facility] 10/10/2019 Last Documented On 0 12:34PM ; [facility] Sacroiliitis PAIN MANAGEMENT FOLLOW UP with T MULU L ARTHUR [facility] 10/10/2019 Last Documented On 0 12:34PM ; [facility] Systemic lupus erythematosus PAIN MANAGE MENT FOLLOW UP with FELISHA L ARTHUR [facility] 10/10/2019 Last Documented On 0 12:34PM ; [facility] Chronic pain syndrome PAIN MANAGEMENT FO LLOW UP with FELISHA L ARTHUR [facility] 08/07/2019 Last Documented On 9 9:54AM ; [facility] Fibromyalgia PAIN MANAGEMENT FOLLOW UP with T MULU L ARTHUR [facility] 08/07/2019 Last Documented On 9 9:54AM ; [facility] Lumbosacral spinal stenosis PAIN MANAGEM ENT FOLLOW UP with FELISHA L ARTHUR [facility] 08/07/2019 Last Documented On 9 9:54AM ; [facility] Sacroiliitis PAIN MANAGEMENT FOLLOW UP with T MULU L ARTHUR [facility] 08/07/2019 Last Documented On 9 9:54AM ; [facility] Systemic lupus erythematosus PAIN MANAGE MENT FOLLOW UP with FELISHA L ARTHUR [facility] 08/07/2019 Last Documented On 9 9:54AM ; [facility] Chronic pain syndrome PAIN MANAGEMENT FO LLOW UP with FELISHA L ARTHUR [facility] 06/30/2019 Last Documented On 9 3:12PM ; [facility] Fibromyalgia PAIN MANAGEMENT FOLLOW UP with T MULU L ARTHUR [facility] 06/30/2019 Last Documented On 9 3:12PM ; [facility] Lumbar radiculopathy PAIN MANAGEMENT FOL LOW UP with FELISHA L ARTHUR ANP-BC 06/30/2019 Last Documented On 9 3:12PM ; [facility] Lumbosacral spinal stenosis PAIN MANAGEM ENT FOLLOW UP with FELISHA L ARTHUR ANP-BC 06/30/2019 Last Documented On 9 3:12PM ; [facility] Myalgia PAIN MANAGEMENT FOLLOW UP with T MULU L ARTHUR ANP-BC 06/30/2019 Last Documented On 9 3:12PM ; [facility] Sacroiliitis PAIN MANAGEMENT FOLLOW UP with T MULU L ARTHUR ANP-BC 06/30/2019 Last Documented On 9 3:12PM ; [facility] Systemic lupus erythematosus PAIN MANAGE MENT FOLLOW UP with FELISHA L ARTHUR ANP-BC 06/30/2019 Last Documented On 9 3:12PM ; [facility] Chronic pain syndrome PAIN MANAGEMENT FO LLOW UP with FELISHA L ARTHUR ANP-BC 04/29/2019 Last Documented On 9 3:17PM ; [facility] Fibromyalgia PAIN MANAGEMENT FOLLOW UP with T MULU L ARTHUR ANP-BC 04/29/2019 Last Documented On 9 3:17PM ; [facility] Lumbar radiculopathy PAIN MANAGEMENT FOL LOW UP with FELISHA L ARTHUR ANP-BC 04/29/2019 Last Documented On 9 3:17PM ; [facility] Lumbosacral spinal stenosis PAIN MANAGEM ENT FOLLOW UP with FELISHA L ARTHUR ANP-BC 04/29/2019 Last Documented On 9 3:17PM ; [facility] Myalgia PAIN MANAGEMENT FOLLOW UP with T MULU L ARTHUR ANP-BC 04/29/2019 Last Documented On 9 3:17PM ; [facility] Sacroiliitis PAIN MANAGEMENT FOLLOW UP with T MULU L ARTUHR ANP-BC 04/29/2019 Last Documented On 9 3:17PM ; [facility] Systemic lupus erythematosus PAIN MANAGE MENT FOLLOW UP with FELISHA L ARTHUR ANP-BC 04/29/2019 Last Documented On 9 3:17PM ; [facility] Chronic pain syndrome PAIN MANAGEMENT FO LLOW UP with FELISHA L ARTHUR ANP-BC 02/05/2019 Last Documented On 9 3:56PM ; [facility] Fibromyalgia PAIN MANAGEMENT FOLLOW UP with T MULU L ARTHUR ANP-BC 02/05/2019 Last Documented On 9 3:56PM ; [facility] Lumbar radiculopathy PAIN MANAGEMENT FOL LOW UP with FELISHA L ARTHUR ANP-BC 02/05/2019 Last Documented On 9 3:56PM ; [facility] Lumbosacral spinal stenosis PAIN MANAGEM ENT FOLLOW UP with FELISHA L ARTHUR ANP-BC 02/05/2019 Last Documented On 9 3:56PM ; [facility] Myalgia PAIN MANAGEMENT FOLLOW UP with T MULU L ARTHUR ANP-BC 02/05/2019 Last Documented On 9 3:56PM ; [facility] Sacroiliitis PAIN MANAGEMENT FOLLOW UP with T MULU L ARTHUR ANP-BC 02/05/2019 Last Documented On 9 3:56PM ; [facility] Systemic lupus erythematosus PAIN MANAGE MENT FOLLOW UP with FELISHA L ARTHUR ANP-BC 02/05/2019 Last Documented On 9 3:56PM ; [facility] Chronic pain syndrome PAIN MANAGEMENT FO LLOW UP with FELISHA L ARTHUR ANP-BC 11/28/2018 Last Documented On 9 3:13PM ; [facility] Fibromyalgia PAIN MANAGEMENT FOLLOW UP with T MULU L ARTHUR ANP-BC 11/28/2018 Last Documented On 9 3:13PM ; [facility] Lumbar radiculopathy PAIN MANAGEMENT FOL LOW UP with FELISHA L ARTHUR ANP-BC 11/28/2018 Last Documented On 9 3:13PM ; [facility] Lumbosacral spinal stenosis PAIN MANAGEM ENT FOLLOW UP with FELISHA L ARTHUR ANP-BC 11/28/2018 Last Documented On 9 3:13PM ; [facility] Myalgia PAIN MANAGEMENT FOLLOW UP with T MULU L ARTHUR ANP-BC 11/28/2018 Last Documented On 9 3:13PM ; [facility] Sacroiliitis PAIN MANAGEMENT FOLLOW UP with T MULU L ARTHUR ANP-BC 11/28/2018 Last Documented On 9 3:13PM ; [facility] Systemic lupus erythematosus PAIN MANAGE MENT FOLLOW UP with FELISHA L ARTHUR ANP-BC 11/28/2018 Last Documented On 9 3:13PM ; [facility] Chronic pain syndrome PAIN MANAGEMENT FO LLOW UP with FELISHA L ARTHUR ANP-BC 10/31/2018 Last Documented On 9 2:44PM ; [facility] Fibromyalgia PAIN MANAGEMENT FOLLOW UP with T MULU L ARTHUR ANP-BC 10/31/2018 Last Documented On 9 2:44PM ; [facility] Lumbar radiculopathy PAIN MANAGEMENT FOL LOW UP with FELISHA L ARTHUR ANP-BC 10/31/2018 Last Documented On 9 2:44PM ; [facility] Lumbosacral spinal stenosis PAIN MANAGEM ENT FOLLOW UP with FELISHA L ARTHUR ANP-BC 10/31/2018 Last Documented On 9 2:44PM ; [facility] Myalgia PAIN MANAGEMENT FOLLOW UP with T MULU L ARTHUR ANP-BC 10/31/2018 Last Documented On 9 2:44PM ; [facility] Sacroiliitis PAIN MANAGEMENT FOLLOW UP with T MULU L ARTHUR ANP-BC 10/31/2018 Last Documented On 9 2:44PM ; [facility] Systemic lupus erythematosus PAIN MANAGE MENT FOLLOW UP with FELISHA L ARTHUR ANP-BC 10/31/2018 Last Documented On 9 2:44PM ; [facility] Chronic pain syndrome PAIN MANAGEMENT NE W CONSULT with FELISHA L ARTHUR ANP-BC 10/03/2018 Last Documented On 9 9:56AM ; [facility] Localized lumbar osteoarthritis PAIN MAN AGEMENT NEW CONSULT with FELISHA L ARTHUR ANP-BC 10/03/2018 Last Documented On 9 9:56AM ; [facility] Lumbosacral spinal stenosis PAIN MANAGEM ENT NEW CONSULT with FELISHA ZENGS [facility] 10/03/2018 Last Documented On 9 9:56AM ; [facility] Myalgia PAIN MANAGEMENT NEW CONSULT with FELISHA BHATVINS [facility] 10/03/2018 Last Documented On 9 9:56AM ; [facility] Sacroiliitis PAIN MANAGEMENT NEW CONSULT with FELISHAMOISES BHATVINS [facility] 10/03/2018 Last Documented On 9 9:56AM ; [facility] Systemic lupus erythematosus PAIN MANAGE MENT NEW CONSULT with FELISHAMOISES BHATVINS [facility] 10/03/2018 Last Documented On 9 9:56AM ; [facility] Instructions Includes: Instructions for all patient encounters Education and Decision Aids were provided during visit for: Pill Count: 25 HYSINGLA Last Documented On 4 8:54AM ; [facility] Pill Count: two HYSINGLA Last Documented On 4 9:14AM ; [facility] Pill Count: HYDROCODONE ~out of medication Last Documented On 4 9:14AM ; [facility] Pill Count: two HYSINGLA Last Documented On 4 11:00AM ; [facility] Pill Count: HYDROCODONE ~out of medication Last Documented On 4 11:43AM ; [facility] Pill Count: HYDROCODONE ~out of medication Last Documented On 4 9:34AM ; [facility] Pill Count: HYDROCODONE ~out of medication Last Documented On 4 10:37AM ; [facility] Pill Count: HYDROCODONE ~out of medication Last Documented On 4 1:44PM ; [facility] Pill Count: two HYDROCODONE Last Documented On 4 1:15PM ; [facility] Patient education about adve rse reactions to medication Last Documented On 3 10:43AM ; [facility] Reviewed side effects and Ri sks/Benefits analysis Last Documented On 3 10:43AM ; [facility] Pill Count: 19 HYDROCODONE Last Documented On 3 2:06PM ; [facility] Pill Count: 19 HYDROCODONE Last Documented On 3 10:39AM ; [facility] Pill Count: 50 HYDROCODONE Last Documented On 3 10:50AM ; [facility] Pill Count: one HYDROCODONE Last Documented On 3 3:49PM ; [facility] Pill Count: six HYDROCODONE Last Documented On 3 10:14AM ; [facility] Pill Count: 38 HYDROCODONE Last Documented On 3 1:23PM ; [facility] Pill Count: 49 HYDROCODONE Last Documented On 2 10:01AM ; [facility] Pill Count: 62 HYDROCODONE Last Documented On 2 3:28PM ; [facility] Pill Count: 61 HYDROCODONE Last Documented On 2 4:14PM ; [facility] Pill Count: 62 HYDROCODONE Last Documented On 2 4:21PM ; [facility] Pill Count: Patient did not bring pain medication to appointment for pill count, per policy. Advised in order to continue to safely prescribe opioids, medication must be brought to each appointment Last Documented On 2 4:14PM ; [facility] Pill Count: 82 HYDROCODONE Last Documented On 2 3:55PM ; [facility] Pill Count: Patient did not bring pain medication to appointment for pill count, per policy. Advised in order to continue to safely prescribe opioids, medication must be brought to each appointment Last Documented On 2 4:19PM ; [facility] Pill Count: Patient did not bring pain medication to appointment for pill count, per policy. Advised in order to continue to safely prescribe opioids, medication must be brought to each appointment Last Documented On 1 1:41PM ; [facility] Pill Count: five Not Appropr iate Had surgery and did not fill the pain med that was given after suregery Last Documented On 1 1:11PM ; [facility] Pill Count: 21 Appropriate Last Documented On 1 3:19PM ; [facility] Pill Count: 21 Appropriate Last Documented On 1 5:34PM ; [facility] Pill Count: 21 Appropriate Last Documented On 1 5:23PM ; [facility] Pill Count: ten Not Appropri ate ; discussed taking only as prescribed for back pain not myalgia symptoms related to covid Last Documented On 1 3:58PM ; [facility] Pill Count: 0 Last Documented On 0 3:51PM ; [facility] Pill Count: Patient did not bring pain medication to appointment for pill count, per policy. Advised in order to continue to safely prescribe opioids, medication must be brought to each appointment Last Documented On 0 3:02PM ; [facility] Pill Count: two Appropriate Last Documented On 0 7:51AM ; [facility] Pill Count: seven Appropriat e Last Documented On 0 10:51AM ; [facility] Pill Count: three Appropriat e Last Documented On 0 12:30PM ; [facility] Pill Count: seven Appropriat e Last Documented On 9 9:53AM ; [facility] Medical Equipment - Implanted Devices Includes: Current and historical Devices No Medical Equipment Recorded Medications Includes: Current and historical Medications Current Medications (continue as prescribed) Narcan 4 MG/0.1ML Nasal Liquid 01/21/2024 Provider: FELISHA SENIOR Diagnosis: Spinal stenosis, lumbar region with neurogenic claudication as directed Last Documented On 4 2:31PM By FELISHA SENIOR ; [facility] Hysingla ER 20 MG Oral Table t ER 24 Hour Abuse-Deterrent 01/21/2024 Provider: FELISHA SENIOR Diagnosis: Spinal stenosis, lumbar region with neurogenic claudication 1 tablet q 24 hours Last Documented On 4 2:31PM By FELISHA SENIOR ; [facility] oxyCODONE-Acetaminophen 10-325 MG Oral Tablet 01/15/20 Provider: Diagnosis: Last Documented On 02/01/2024 8:52AM By Lilli MAK ; [facility] traZODone HCl 100 MG Oral Tablet 11/02/2023 Provider : Diagnosis: Last Documented On 4 10:13AM By Lilli MAK ; [facility] Cyclobenzaprine HCl 10 MG Oral Tablet 10/29/2023 Pro vider: REFUGIO AMARO MD Diagnosis: Last Documented On 4 10:15AM By Lilli MAK ; [facility] Ketoconazole 2% External Cream 10/29/2023 Provider: REFUGIO AMARO MD Diagnosis: Last Documented On 4 10:15AM By Lilli MAK ; [facility] hydrOXYzine HCl 50 MG Oral Tablet 10/26/2023 Provide r: Diagnosis: Last Documented On 4 10:16AM By Lilli MAK ; [facility] Anastrozole 1 MG Oral Tablet 10/24/2023 Provider: Diagnosis: Last Documented On 4 10:16AM By Lilli MAK ; [facility] FeroSul 325 (65 Fe) MG Oral Tablet 10/24/2023 Provid er: Diagnosis: Last Documented On 4 10:18AM By Lilli MAK ; [facility] Venlafaxine HCl ER 225 MG Oral Tablet Extended R elease 24 Hour 10/23/2023 Provider: Diagnosis: Last Documented On 4 10:18AM By Lilli MAK ; [facility] Pregabalin 200 MG Oral Capsule 10/08/2023 [facility]: [facility] Diagnosis: Fibromyalgia TAKE 1 CAPSULE BY MOUTH TWICE DAILY Last Documented On 4 1:51PM By FELISHA WU ; [facility] Omeprazole 40 MG Oral Capsule Delayed Release 08/11/20 23 Provider: Diagnosis: Last Documented On 4 10:17AM By Lilli MAK ; [facility] Lisinopril 40 MG Oral Tablet 04/11/2023 Provider: REFUGIO AMARO MD Diagnosis: Last Documented On 3 10:40AM By Lilli MAK ; [facility] Famotidine 20 MG Oral Tablet 01/23/2023 Provider: Diagnosis: Last Documented On 02/05/2023 4:01PM By Lilli MAK ; [facility] ARIPiprazole 2 MG Oral Tablet 01/09/2023 Provider: Diagnosis: Last Documented On 02/05/2023 4:04PM By Lilli MAK ; [facility] busPIRone HCl 15 MG Oral Tablet 09/20/2022 Provider: Diagnosis: Last Documented On 02/05/2023 4:05PM By Lilli MAK ; [facility] NIFEdipine ER 30 MG Oral Tab let Extended Release 24 Hour 05/04/2022 Provider: REFUGIO AMARO MD Diagnosis: Last Documented On 05/09/2022 3:25PM By Lilli MAK ; [facility] Metoprolol Succinate ER 200M G Oral Tablet Extended Release 24 Hour 10/03/2018 Provider: Diagnosis: Last Documented On 9 3:00PM By VENKAT MAK ; [facility] Past Medications on file Hysingla ER 20 MG Oral Tablet ER 24 Hour Abuse-Deterrent 12/17/2023 - 01/18/2024 Provider: FELISHA SENIOR Diagnosis: Spinal stenosis, lumbar region with neurogenic claudication 1 tablet q 24 hours Last Documented On 4 2:27PM By FELISHA SENIOR ; [facility] Hysingla ER 20 MG Oral Tablet ER 24 Hour Abuse-Deterrent 11/14/2023 - 12/17/2023 Provider: FELISHA SENIOR Diagnosis: Spinal stenosis, lumbar region with neurogenic claudication 1 tablet q 24 hours Last Documented On 4 11:11AM By FELISHA SENIOR ; [facility] Aspirin 325 MG Oral Tablet 10/28/2023 - 11/07/2023 Pro vider: Diagnosis: Last Documented On 4 10:36AM By FELISHA SENIOR ; [facility] HYDROcodone-Acetaminophen 5- 325 MG Oral Tablet 10/08/2023 - 11/23/2023 Provider: FELISHA SENIOR Diagnosis: Other spondylosis, lumbar region 1 every 6 hours as needed for severe pain, max 4 /day Last Documented On 4 10:38AM By Yojana Shaw RN ; [facility] HYDROcodone-Acetaminophen 5- 325 MG Oral Tablet 09/06/2023 - 10/08/2023 Provider: FELISAH SENIOR Diagnosis: Other spondylosis, lumbar region 1 every 6 hours as needed for severe pain, max 4 /day Last Documented On 4 1:42PM By FELISHA SENIOR ; [facility] HYDROcodone-Acetaminophen 5- 325 MG Oral Tablet 08/06/2023 - 09/04/2023 Provider: FELISHA SENIOR Diagnosis: Other spondylosis, lumbar region 1 every 6 hours as needed for severe pain, max 4 /day Last Documented On 4 8:13AM By FELISAH SENIOR ; [facility] HYDROcodone-Acetaminophen 5- 325 MG Oral Tablet 07/05/2023 - 08/06/2023 Provider: FELISHA SENIOR Diagnosis: Other spondylosis, lumbar region 1 every 6 hours as needed fo r severe pain, max 4/day11 Last Documented On 3 12:26PM By FELISHA SENIOR ; [facility] Pregabalin 200 MG Oral Capsule 07/05/2023 - 10/08/2023 Provider: FELISHA SENIOR Diagnosis: Fibromyalgia TAKE 1 CAPSULE BY MOUTH TWICE DAILY Last Documented On 4 1:42PM By FELISHA SENIOR ; [facility] Pregabalin 200 MG Oral Capsule 06/11/2023 - 07/05/2023 Provider: NYDIA YUN [employer]KER-FPA, AREA CAPTAIN-BC Diagnosis: Fibromyalgia TAKE 1 CAPSULE BY MOUTH TWICE DAILY Last Documented On 3 10:52AM By FELISHA SENIOR ; [facility] HYDROcodone-Acetaminophen 5- 325 MG Oral Tablet 06/04/2023 - 07/05/2023 Provider: FELISHA SENIOR Diagnosis: Other spondylosis, lumbar region 1 every 6 hours as needed for severe pain, max 4 /day Last Documented On 3 10:52AM By FELISHA SENIOR ; [facility] HYDROcodone-Acetaminophen 5- 325 MG Oral Tablet 05/08/2023 - 06/04/2023 Provider: NYDIA YUN [employer]KER-FPA, BIRD Diagnosis: Other spondylosis, lumbar region 1 every 6 hours as needed fo r severe pain, max 4/day Last Documented On 3 1:44PM By FELISHA SENIOR ; [facility] HYDROcodone-Acetaminophen 5- 325 MG Oral Tablet 04/05/2023 - 05/08/2023 Provider: FELISHA SENIOR Diagnosis: Other spondylosis, lumbar region 1 every 6 hours as needed for severe pain, max 4 /day Last Documented On 3 12:02PM By NYDIA GARCIAP-BC ; [facility] HYDROcodone-Acetaminophen 5- 325 MG Oral Tablet 03/02/2023 - 04/05/2023 Provider: FELISHA SENIOR Diagnosis: Other spondylosis, lumbar region 1 every 6 hours as needed for severe pain, max 4 /day Last Documented On 3 11:56AM By FELISHA SENIOR ; [facility] HYDROcodone-Acetaminophen 5- 325 MG Oral Tablet 02/05/2023 - 03/01/2023 Provider: FELISHA SENIOR Diagnosis: Other spondylosis, lumbar region 1 every 6 hours as needed for severe pain, max 4 /day Last Documented On 3 12:02PM By FELISHA SENIOR ; [facility] Vitamin D (Ergocalciferol) 1 .25 MG (00392 UT) Oral Capsule 01/20/2023 - 11/07/2023 Provider: Diagnosis: Last Documented On 4 10:13AM By Lilli MAK ; [facility] HYDROcodone-Acetaminophen 5- 325 MG Oral Tablet 01/05/2023 - 02/05/2023 Provider: FELISHA SENIOR Diagnosis: Other spondylosis, lumbar region 1 every 6 hours as needed for severe pain, max 4 /day Last Documented On 3 4:23PM By FELISHA SENIOR ; [facility] HYDROcodone-Acetaminophen 5- 325 MG Oral Tablet 12/05/2022 - 01/05/2023 Provider: FELISHA SENIOR Diagnosis: 1 every 6 hours as needed for severe pain, max 4 /day Last Documented On 3 2:45PM By [facility] ; [facility] Pregabalin 200 MG Oral Capsule 11/28/2022 - 06/11/2023 Provider: FELISHA SENIOR Diagnosis: Fibromyalgia TAKE 1 CAPSULE BY MOUTH TWICE DAILY Last Documented On 3 11:59AM By [facility] ; [facility] HYDROcodone-Acetaminophen 5- 325 MG Oral Tablet 11/03/2022 - 12/04/2022 Provider: NYDIA FRANKEL AREA CAPTAIN-BC Diagnosis: 1 every 6 hours as needed for severe pain, max 4 /day Last Documented On 3 8:33AM By [facility] ; [facility] HYDROcodone-Acetaminophen 5- 325 MG Oral Tablet 10/06/2022 - 11/03/2022 Provider: NYDIA FRANKEL ARE[employer] CAPTAIN-BC Diagnosis: 1 every 6 hours as needed for severe pain Last Documented On 3 1:24PM By NYDIA YUN [facility] ; [facility] Anastrozole 1 MG Oral Tablet 09/19/2022 - 11/07/2023 Areli mooreder: Diagnosis: Last Documented On 4 10:16AM By Lilli Yung Alexi ; [facility] HYDROcodone-Acetaminophen 5- 325 MG Oral Tablet 09/06/2022 - 10/06/2022 Provider: NYDIA FRANKEL [employer] CAPTAIN-BC Diagnosis: 1 every 6 hours as needed for severe pain Last Documented On 3 4:40PM By NYDIA YUN [facility] ; [facility] Pregabalin 200 MG Oral Capsule 08/17/2022 - 11/28/2022 Provider: FELISHA WU Diagnosis: Fibromyalgia TAKE 1 CAPSULE BY MOUTH TWICE DAILY Last Documented On 3 2:12PM By FELISHA SENIOR ; [facility] HYDROcodone-Acetaminophen 5- 325 MG Oral Tablet 07/31/2022 - 09/05/2022 Provider: NYDIA YUN APRN-NORYA, AREA CAPTAIN-BC Diagnosis: 1 every 6 hours as needed Last Documented On 3 2:51PM By NYDIA GARCIAP- ; [facility] HYDROcodone-Acetaminophen 5- 325 MG Oral Tablet 06/29/2022 - 07/31/2022 Provider: FELISHA WUBC Diagnosis: 1 every 6 hours as needed Last Documented On 2 12:48PM By NYDIA YUN [facility] ; [facility] Ketoconazole 2% External Cream 05/30/2022 - 03/23/2023 Provider: REFUGIO AMARO MD Diagnosis: Last Documented On 3 10:47AM By Lilli Yung Alexi ; [facility] HYDROcodone-Acetaminophen 5- 325 MG Oral Tablet 05/24/2022 - 06/28/2022 Provider: FELISHA WUBC Diagnosis: 1 every 6 hours as needed Last Documented On 2 1:39PM By FELISHA HERRERA-BC ; [facility] Pregabalin 200 MG Oral Capsule 05/09/2022 - 08/17/2022 Provider: FELISHA WUBC Diagnosis: Fibromyalgia TAKE 1 CAPSULE BY MOUTH TWICE DAILY Last Documented On 2 10:30AM By FELISHA WUBC ; [facility] HYDROcodone-Acetaminophen 5- 325 MG Oral Tablet 04/24/2022 - 05/24/2022 Provider: FELISHA WUBC Diagnosis: 1 every 6 hours as needed Last Documented On 2 3:42PM By FELISHA WUBC ; [facility] HYDROcodone-Acetaminophen 5- 325 MG Oral Tablet 03/20/2022 - 04/24/2022 Provider: FELISHA WUBC Diagnosis: 1 every 6 hours as needed Last Documented On 2 5:32PM By FELISHA WUBC ; [facility] HYDROcodone-Acetaminophen 5- 325 MG Oral Tablet 02/16/2022 - 03/20/2022 Provider: NYDIA G JAMA ELECTRONIC DIE MAKER-FPA, AREA CAPTAIN-BC Diagnosis: 1 every 6 hours as needed Last Documented On 2 4:51PM By FELISHA WUBC ; [facility] HYDROcodone-Acetaminophen 5- 325 MG Oral Tablet 01/09/2022 - 02/16/2022 Provider: FELISHA WUBC Diagnosis: 1 every 6 hours as needed Last Documented On 2 10:58AM By NYDIA YUN AREA CAPTAIN-BC ; [facility] HYDROcodone-Acetaminophen 5- 325 MG Oral Tablet 12/09/2021 - 01/06/2022 Provider: FELISHA WUBC Diagnosis: 1 every 6 hours as needed Last Documented On 2 8:16AM By FELISHA HERRERA-BC ; [facility] Pregabalin 200 MG Oral Capsule 11/21/2021 - 05/09/2022 Provider: FELISHA WUBC Diagnosis: TAKE 1 CAPSULE BY MOUTH TWICE DAILY Last Documented On 2 3:53PM By FELISHA HERRERA-BC ; [facility] HYDROcodone-Acetaminophen 5- 325 MG Oral Tablet 11/10/2021 - 12/09/2021 Provider: FELISHA WUBC Diagnosis: 1 every 6 hours as needed Last Documented On 2 11:56AM By FELISHA WUBC ; [facility] HYDROcodone-Acetaminophen 5- 325 MG Oral Tablet 10/13/2021 - 11/10/2021 Provider: FELISHA WUBC Diagnosis: 1 every 6 hours as needed Last Documented On 2 6:01PM By FELISHA HERRERA-BC ; [facility] HYDROcodone-Acetaminophen 5- 325 MG Oral Tablet 09/06/2021 - 10/12/2021 Provider: FELISHA WUBC Diagnosis: 1 every 6 hours as needed Last Documented On 2 9:12AM By FELISHA WUBC ; [facility] Pregabalin 200 MG Oral Capsule 08/15/2021 - 11/21/2021 Provider: FELISHA WUBC Diagnosis: TAKE 1 CAPSULE BY MOUTH TWICE DAILY Last Documented On 2 11:37AM By FELISHA SENIOR ; [facility] HYDROcodone-Acetaminophen 5- 325 MG Oral Tablet 08/12/2021 - 09/06/2021 Provider: FELISHA SENIOR Diagnosis: Other spondylosis, cervical region 1 every 6 hours as needed Last Documented On 2 5:13PM By FELISHA SENIOR ; [facility] HYDROcodone-Acetaminophen 7. 5-325 MG Oral Tablet 07/11/2021 - 08/12/2021 Provider: FELISHA SENIOR Diagnosis: 1 po tid prn Last Documented On 1 12:06PM By FELISHA SENIOR ; [facility] HYDROcodone-Acetaminophen 7. 5-325 MG Oral Tablet 06/14/2021 - 07/11/2021 Provider: FELISHA SENIOR Diagnosis: Spinal stenosis, lumbosacral region 1 po tid prn Last Documented On 1 3:02PM By FELISHA SENIOR ; [facility] Pregabalin 200 MG Oral Capsule 06/14/2021 - 08/15/2021 Provider: FELISHA SENIOR Diagnosis: Fibromyalgia 1 CAPSULE TWO TIMES A DAY Last Documented On 1 4:32PM By FELISHA SENIOR ; [facility] [facility] Anastrozole 1 MG Oral Tablet 06/14/2021 - 02/05/2023 P rokerwinder: Diagnosis: Last Documented On 02/05/2023 4:02PM By Lilli MAK ; [facility] Pregabalin 150 MG Oral Capsule 05/30/2021 - 07/01/2021 Provider: FELISHA SENIOR Diagnosis: TAKE 1 CAPSULE BY MOUTH TWICE DAILY Last Documented On 1 9:21AM By FELISHA SENIOR ; [facility] HYDROcodone-Acetaminophen 5- 325 MG Oral Tablet 05/10/2021 - 07/01/2021 Provider: FELISHA SENIOR Diagnosis: 1 every 6 hours as needed Last Documented On 1 9:22AM By FELISHA SENIOR ; [facility] Pregabalin 150 MG Oral Capsule 04/13/2021 - 05/30/2021 Provider: FELISHA SENIOR Diagnosis: Fibromyalgia 1 CAPSULE TWO TIMES A DAY Last Documented On 1 5:36PM By FELISHA SENIOR ; [facility] Pregabalin 75 MG Oral Capsule 04/13/2021 - 06/14/2021 Provider: FELISHA SENIOR Diagnosis: Fibromyalgia 1 CAPSULE TWO TIMES A DAY Last Documented On 06/14/2021 1:42PM By Lilli MAK ; [facility] HYDROcodone-Acetaminophen 5- 325 MG Oral Tablet 04/13/2021 - 05/05/2021 Provider: FELISHA SENIOR 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, lumbar region 1 every 6 hours as needed Last Documented On 1 10:51AM By FELISHA SENIOR ; [facility] HYDROcodone-Acetaminophen 5- 325 MG Oral Tablet 2021 - 04/13/2021 Provider: FELISHA SENIOR Diagnosis: 1 po q 6-8 hours prn/ max 3 per day Last Documented On 1 1:37PM By FELISHA SENIOR ; [facility] HYDROcodone-Acetaminophen 5- 325 MG Oral Tablet 02/14/2021 - 2021 Provider: FELISHA SENIOR Diagnosis: Cervicalgia 1 po q 6-8 hours prn/ max 3 per day Last Documented On 1 4:57PM By EFLISHA SENIOR ; [facility] HYDROcodone-Acetaminophen 5- 325 MG Oral Tablet 01/11/2021 - 02/11/2021 Provider: FELISHA SENIOR Diagnosis: Chronic pain syndrome 1 po q 6-8 hours prn/ max 3 per day Last Documented On 1 10:14AM By FELISHA SENIOR ; [facility] HYDROcodone-Acetaminophen 5- 325 MG Oral Tablet 12/13/2020 - 01/10/2021 Provider: FELISHA SENIOR Diagnosis: Chronic pain syndrome 1 po q 6-8 hours prn/ max 3 per day Last Documented On 1 5:12PM By FELISHA SENIOR ; [facility] HYDROcodone-Acetaminophen 5- 325 MG Oral Tablet 11/15/2020 - 12/13/2020 Provider: FELISHA SENIOR Diagnosis: Chronic pain syndrome 1 po q 6-8 hours prn Last Documented On 1 5:03PM By FELISHA SENIOR ; [facility] HYDROcodone-Acetaminophen 5- 325 MG Oral Tablet 10/07/2020 - 11/15/2020 Provider: FELISHA SENIOR Diagnosis: Chronic pain syndrome 1 po q 6-8 hours prnThis is 15 day rx Last Documented On 1 4:59PM By FELISHA SENIOR ; [facility] [place] 5-325 MG Oral Tablet 09/13/2020 - 2021 Provider: FELISHA SENIOR Diagnosis: Spinal stenosis, lumbosacral region 1 po q 6 hours prn/ not 4 da chano every daylast 30 days Last Documented On 1 3:39PM By FELISHA SENIOR ; [facility] Pregabalin 150 MG Oral Capsule 08/24/2020 - 04/13/2021 Provider: FELISHA SENIOR Diagnosis: Fibromyalgia TAKE 1 CAPSULE BY MOUTH TWICE DAILY Last Documented On 04/13/2021 1:12PM By Jonelle MAK ; [facility] [place] 5-325 MG Oral Tablet 08/09/2020 - 09/13/2020 Provider: FELISHA SENIOR Diagnosis: Spinal stenosis, lumbosacral region 1 po q 6 hours prn/ not 4 da chano every daylast 30 daysto fill 08/11/20 Last Documented On 1 5:32PM By FELISHA SENIOR ; [facility] [place] 5-325 MG Oral Tablet 07/13/2020 - 08/09/2020 Provider: FELISHA SENIOR Diagnosis: Spinal stenosis, lumbosacral region 1 po q 6 hours prn/ not 4 da chano every daylast 30 days Last Documented On 0 6:28PM By FELISHA SENIOR ; [facility] [place] 5-325 MG Oral Tablet 06/10/2020 - 07/12/2020 Provider: FELISHA SENIOR Diagnosis: Spinal stenosis, lumbosacral region 1 po q 6 hours prn/ not 4 da chano every daylast 30 days Last Documented On 0 9:04AM By FELISHA SENIOR ; [facility] [place] 5-325 MG Oral Tablet 05/11/2020 - 06/10/2020 Provider: FELISHA SENIOR Diagnosis: Spinal stenosis, lumbosacral region 1 po q 6 hours prn/ not 4 da chano every daylast 30 days Last Documented On 0 4:06PM By FELISHA SENIOR ; [facility] Pregabalin 150 MG Oral Capsule 05/03/2020 - 08/24/2020 Provider: FELISHA SENIOR Diagnosis: Fibromyalgia TAKE 1 CAPSULE BY MOUTH TWICE DAILY Last Documented On 0 3:10PM By FELISHA SENIOR ; [facility] [place] 5-325 MG Oral Tablet 04/12/2020 - 05/11/2020 Provider: FELISHA SENIOR Diagnosis: Spinal stenosis, lumbosacral region 1 poTID prn Last Documented On 0 3:27PM By FELISHA SENIOR ; [facility] Amitiza 24 MCG Oral Capsule 04/06/2020 - 2021 Provider: FELISHA SENIOR Diagnosis: Constipation, unspecified TAKE 1 CAPSULE BY MOUTH TWICE DAILY Last Documented On 2021 3:29PM By Jonelle MAK ; [facility] [place] 5-325 MG Oral Tablet 03/09/2020 - 04/09/2020 Provider: FEILSHA SENIOR Diagnosis: Spinal stenosis, lumbosacral region 1 poTID prnto fill 03/10/20 Last Documented On 0 5:17PM By FELISHA SENIOR ; [facility] Amitiza 24 MCG Oral Capsule 02/09/2020 - 04/06/2020 Provider: FELISHA SENIOR Diagnosis: Constipation, unspecified 1 CAPSULE TWO TIMES A DAY Last Documented On 0 2:59PM By FELISHA SENIOR ; [facility] [place] 5-325 MG Oral Tablet 02/09/2020 - 03/09/2020 Provider: FELISHA SENIOR Diagnosis: Spinal stenosis, lumbosacral region 1 poTID prn Last Documented On 0 2:43PM By FELISHA SENIOR ; [facility] Pregabalin 150 MG Oral Capsule 01/30/2020 - 05/03/2020 Provider: FELISHA SENIOR Diagnosis: Fibromyalgia 1 CAPSULE TWO TIMES A DAY Last Documented On 0 9:03AM By FELISHA SENIOR ; [facility] [place] 5-325 MG Oral Tablet 01/08/2020 - 02/09/2020 Provider: FELISHA SENIOR Diagnosis: Spinal stenosis, lumbosacral region 1 poTID prnto fill 01/10/20 Last Documented On 0 2:57PM By FELISHA SENIOR ; [facility] [place] 5-325 MG Oral Tablet 12/10/2019 - 01/08/2020 Provider: FELISHA SENIOR Diagnosis: Low back pain 1 poTID prnto fill 12/11/19 Last Documented On 0 10:55AM By FELISHA SENIOR ; [facility] [place] 5-325 MG Oral Tablet 11/11/2019 - 12/09/2019 Provider: FELISHA SENIOR Diagnosis: Low back pain 1 poTID prn Last Documented On 0 2:38PM By FELISHA SENIOR ; [facility] Lyrica 150 MG Oral Capsule 10/10/2019 - 05/11/2020 Provider: FELISHA SENIOR Diagnosis: Fibromyalgia TAKE 1 CAPSULE BY MOUTH TWICE DAILY Last Documented On 0 3:14PM By FELISHA SENIOR ; [facility] [place] 5-325 MG Oral Tablet 10/09/2019 - 11/07/2019 Provider: FELISHA SENIOR Diagnosis: Low back pain 1 poTID prnto fill 10/11/19 Last Documented On 0 10:52AM By FELISHA SENIOR ; [facility] [place] 5-325 MG Oral Tablet 09/08/2019 - 10/08/2019 Provider: FELISHA SENIOR Diagnosis: Low back pain 1 poTID prn Last Documented On 0 8:45AM By FELISHA SENIOR ; [facility] [place] 5-325 MG Oral Tablet 08/07/2019 - 09/08/2019 Provider: FELISHA SENIOR Diagnosis: Low back pain 1 poTID prnto fill 08/08/19 Last Documented On 0 4:55PM By FELISHA SENIOR ; [facility] Lyrica 150 MG Oral Capsule 07/09/2019 - 10/10/2019 Provider: FELISHA SENIOR Diagnosis: Fibromyalgia TAKE 1 CAPSULE BY MOUTH TWICE DAILY Last Documented On 0 12:32PM By FELISHA SENIOR ; [facility] [place] 5-325 MG Oral Tablet 07/09/2019 - 08/07/2019 Provider: FELISHA SENIOR Diagnosis: Low back pain 1 po BID prnto fill 07/10/19 Last Documented On 9 2:09PM By FELISHA SENIOR ; [facility] [place] 5-325 MG Oral Tablet 06/10/2019 - 07/08/2019 Provider: FELISHA SENIOR Diagnosis: Low back pain 1 po BID prn Last Documented On 9 8:51AM By FELISHA SENIOR ; [facility] Lyrica 150 MG Oral Capsule 06/02/2019 - 07/08/2019 Provider: FELISHA SENIOR Diagnosis: Fibromyalgia TAKE 1 CAPSULE BY MOUTH TWICE DAILY Last Documented On 9 8:50AM By FELISHA SENIOR ; [facility] Xanax 0.5 MG Oral Tablet 04/29/2019 - 08/07/2019 Provi pan: FELISHA SENIOR Diagnosis: Low back pain as directed 1 po 1 hour prio r to procedure, 1 po 30 minutes prior to procedure and 1 immediately prior prn Last Documented On 9 2:03PM By FELISHA SENIOR ; [facility] [place] 5-325 MG Oral Tablet 04/29/2019 - 06/10/2019 Provider: FELISHA SENIOR Diagnosis: Low back pain 1 po BID prnto fill 05/01/19 Last Documented On 9 4:12PM By FELISHA SENIOR ; [facility] [place] 5-325MG Oral Tablet 04/03/2019 - 04/29/2019 Provider: FELISHA SENIOR Diagnosis: Low back pain 1 po BID prn Last Documented On 9 3:16PM By FELISHA SENIOR ; [facility] [place] 5-325MG Oral Tablet 2019 - 04/03/2019 Provider: FELISHA SENIOR Diagnosis: Low back pain 1 po BID prn Last Documented On 9 1:55PM By FELISHA SENIOR ; [facility] Lyrica 150MG Oral Capsule 03/03/2019 - 06/02/2019 Provider: FELISHA SENIOR Diagnosis: Fibromyalgia TAKE 1 CAPSULE BY MOUTH TWICE DAILY Last Documented On 9 1:26PM By FELISHA SENIOR ; [facility] [place] 5-325MG Oral Tablet 01/31/2019 - 2019 Provider: FELISHA SENIOR Diagnosis: Low back pain 1 po BID prn Last Documented On 9 9:04AM By FELISHA SENIOR ; [facility] traMADol HCl 50MG Oral Tablet 01/28/2019 - 01/31/2019 Provider: FELISHA SENIOR Diagnosis: Fibromyalgia 1 po BID prn Last Documented On 9 11:57AM By Sydnee MAK ; [facility] Lyrica 150MG Oral Capsule 01/28/2019 - 03/03/2019 Provider: FELISHA SENIOR Diagnosis: Fibromyalgia TAKE 1 CAPSULE BY MOUTH TWICE DAILY Last Documented On 9 8:22AM By FELISHA SENIOR ; [facility] [place] 5-325MG Oral Tablet 12/26/2018 - 01/31/2019 Provider: FELISHA SENIOR Diagnosis: Low back pain 1 po BID prn Last Documented On 9 11:51AM By FELISHA SENIOR ; [facility] [place] 5-325MG Oral Tablet 11/28/2018 - 12/26/2018 Provider: FELISHA SENIOR Diagnosis: Low back pain 1 po BID prn Last Documented On 9 4:54PM By FELISHA SENIOR ; [facility] Lyrica 150MG Oral Capsule, conventional 11/28/2018 - 01/28/2019 Provider: FELISHA SENIOR Diagnosis: Fibromyalgia 1 CAPSULE TWO TIMES A DAY Last Documented On 9 9:31AM By FELISHA SENIOR ; [facility] traMADol HCl 50MG Oral Tablet 10/31/2018 - 01/28/2019 Provider: FELISHA SENIOR Diagnosis: Fibromyalgia as directed 1-2 po TID prn pain Last Documented On 9 3:10PM By FELISHA SENIOR ; [facility] Lyrica 150MG Oral Capsule 10/31/2018 - 11/28/2018 Provider: FELISHA SENIOR Diagnosis: Fibromyalgia 1 CAPSULE TWO TIMES A DAY Last Documented On 9 3:12PM By FELISHA SENIOR ; [facility] Gabapentin 100MG Oral Capsule 10/03/2018 - 06/24/2019 Provider: Diagnosis: 1 morning, 1 at noon, 3 tabs at bedtime Last Documented On 9 2:28PM By FELISHA WU ; [facility] Hydroxychloroquine Sulfate 200MG Oral Tablet 9 - 03/23/2023 Provider: Diagnosis: BID Last Documented On 3 10:47AM By Lilli MAK ; [facility] TraMADol HCl 50MG Oral Tablet 10/03/2018 - 06/25/2019 Provider: Diagnosis: Twice daily Last Documented On 9 11:22AM By FELISHA WU ; [facility] Levothyroxine Sodium 50MCG Oral Tablet 10/03/2018 - Provider: Diagnosis: Last Documented On 3 10:48AM By Lilli MAK ; [facility] Lisinopril 40MG Oral Tablet 10/03/2018 - 07/05/2023 Pr ovider: Diagnosis: Last Documented On 3 10:40AM By Lilli MAK ; [facility] Venlafaxine HCl 75MG Oral Tablet 10/03/2018 - 11/07/19 24 Provider: Diagnosis: Last Documented On 4 10:19AM By Lilli MAK ; [facility] Gabapentin 300MG Oral Capsule 10/03/2018 - 02/05/2019 Provider: FELISHA SENIOR Diagnosis: Systemic lupus erythematosus, unspecified as directed Last Documented On 9 3:41PM By FELISHA SENIOR ; [facility] Omeprazole 40MG Oral Capsule Delayed Release 9 - 02/05/2023 Provider: Diagnosis: Last Documented On 02/05/2023 4:03PM By Lilli MAK ; [facility] Medications Administered Includes: Administered Medications in patient's chart Medications Administered Diagnosis Date Pro vider Ketorolac Tromethamine 30 MG/ML IJ SOLN 0 03/23/2023 FELISHA SENIOR Last Documented On 3 11:03AM By Lilli MAK ; [facility] Results Includes: Results from 07/29/2024 through 07/29/2025 No Results Recorded For Specified Dates History of Present Illness History of Present Illness not supported for this document type No History of Present Illness Recorded Social History Description Last Updated Tobacco non-user 11/07/2023 Last Documented On 4 3:07PM ; [facility] Alcohol 07/31/2023 Last Documented On 3 2:52PM ; [facility] Consuming 5 or more drinks per day None 07/31/2023 Last Documented On 3 2:52PM ; [facility] Current nonsmoker 07/31/2023 Last Documented On 3 2:52PM ; [facility] Currently not in school 07/31/2023 Last Documented On 3 2:52PM ; [facility] Drug use 07/31/2023 Last Documented On 3 2:52PM ; [facility] Lives with spouse 07/31/2023 Last Documented On 3 2:52PM ; [facility] Non-smoker 07/31/2023 Last Documented On 3 2:52PM ; [facility] Not recovering alcoholic 07/31/2023 Last Documented On 3 2:52PM ; [facility] Not recovering from substance abuse 07/05 Last Documented On 3 2:52PM ; [facility] Number of times used recreat ional drug/ prescription drug for nonmedical reason. None 07/31/2023 Last Documented On 3 2:52PM ; [facility] No family problems 07/31/2023 Last Documented On 3 2:52PM ; [facility] No recent emotional stress 07/31/2023 Last Documented On 3 2:52PM ; [facility] Smoking status : Never smoker 08/07/2019 Last Documented On 9 9:54AM ; [facility] Currently 10/03/2018 Last Documented On 9 9:56AM ; [facility] No tobacco use 10/03/2018 Last Documented On 9 9:56AM ; [facility] Medical History Includes: Medical History in patient's chart Description Last Updated Reviewed and Unchanged 10/10/2019 Last Documented On 0 12:34PM ; [facility] Currently wearing eyeglasses 10/03/2018 Last Documented On 9 9:56AM ; [facility] Previously 3 time(s) 10/03/2018 Last Documented On 9 9:56AM ; [facility] History of arthritis 10/03/2018 Last Documented On 9 9:56AM ; [facility] History of cancer 10/03/2018 Last Documented On 9 9:56AM ; [facility] History of hypertension 10/03/2018 Last Documented On 9 9:56AM ; [facility] Family History Includes: Family History in patient's chart Description Last Updated Family history of kidney disease 019 Last Documented On 9 9:56AM ; [facility] Father Hypertension 10/03/2018 Last Documented On 9 9:56AM ; [facility] Mother Gun Shot Wound 9 Last Documented On 9 9:56AM ; [facility] Review of Systems Review of Systems [...] Active Last Documented On 4 8:53AM ; [facility] Insurance Includes: Active Insurance Policies Plan Name Member ID Group # Subscriber Relationship Effect nieves Dates 1 - [facility] [id number] KATHY Sanchez Clinical Notes Includes: Signed Clinical Notes starting from 09/22/2022 No Clinical Notes Recorded
--- OUTSIDE RECORDS SUMMARY | 2025-07-29 17:57 | XMS_ITS ---
Care Plan - [facility] Created on: July 29, 2025 KATHY MENDENHALL : 1970 Sex: Female Author Organization [facility] Address [address] [place] [address] Phone Care Team Providers Care Crown Ironer Operator Name Role Phone NILESH DUKE MD Primary Care Provider [phone]
--- OUTSIDE RECORDS SUMMARY | 2025-07-29 17:57 | XMS_ITS | Clinical Summary ---
Author Organization [facility] Address [address] [place] [address] Care Team Providers Care Director Of Communications Name Role Phone Unavailable Primary Care Provider Unavailabl e Allergies Active Allergy Reactions Criticality Noted Date Comments Tape Rash Low 09/12/2016 Medications anastrozole 1 MG tablet TAKE 1 TABLET(1 MG) BY MOUTH DAILY 7 Active cholecalciferol (D3-50) 26897 units capsule Take 100,000 Units by mouth [...] A MEAL 8 Active multi vitamin/mineral s (VITAMINS/PIZZA BAKER ALS) tablet Take 1 tablet by mouth. [...] Comments Blood Pressure 146/90 08/01/2018 1:02 PM NUCLEAR FUEL PROCESSING TECHNICIAN Pulse 89 08/01/2018 1:02 PM NUCLEAR FUEL PROCESSING TECHNICIAN Temperature 36.6 C (97.9 F) 08/01/2018 1:02 PM NUCLEAR FUEL PROCESSING TECHNICIAN Respiratory Rate 20 08/01/2018 1:02 PM NUCLEAR FUEL PROCESSING TECHNICIAN Oxygen Saturation 100% 08/01/2018 1:02 PM NUCLEAR FUEL PROCESSING TECHNICIAN Inhaled Oxygen Concentration - - Weight 88 kg (194 lb) 08/01/2018 1:02 PM NUCLEAR FUEL PROCESSING TECHNICIAN Height 167.6 cm (5' 6) 08/01/2018 1:02 PM NUCLEAR FUEL PROCESSING TECHNICIAN Body Mass Index 31.31 08/01/2018 1:02 PM NUCLEAR FUEL PROCESSING TECHNICIAN Plan of Treatment Health Maintenance Due Date [...]
--- OUTSIDE RECORDS SUMMARY | 2025-07-29 17:57 | XMS_ITS | Encounter Summary ---
Author Organization [facility] Address [address] [place] [address] Care Team Providers Care Cordwainer Name Role Phone Key Tolliver MD Primary Care Provider [phone] Reason for Visit * Reason Comments Medication Refill Encounter Details Date Type Department Care Team ([facility] Contact Info) Description 05/11/2020 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 Gender Identity Not on file Sexual Orientation [...] 12/24/2025 2:15 PM CDT Office Visit [facility] [place] [address] [place] [address] Evan Willis MD [address] [facility] [address] [place] [address] documented as of this encounter Visit Diagnoses Diagnosis Malignant neoplasm of upper-outer quadrant of left breast in female, estrogen receptor positive (CMS/HCC) documented in this encounter Care Teams Cordwainer Relationship Specialty [place] [address] [place] [id number] PCP - General Internal Medicine 11/05/18 documented as of this encounter
--- OUTSIDE RECORDS SUMMARY | 2025-07-29 17:57 | XMS_ITS | Encounter Summary ---
Author Organization [facility] Address [address] [place] [address] Care Team Providers Care Aerospace Physiological Technician Name Role Phone Key Tolliver MD Primary Care Provider Pablo Liriano MD Unavailable [phone] Evan Willis MD Unavailable [phone] Charles Kingston MD Unavailable Reason for Referral * PT/OT/ST (Routine) - Open Specialty Diagnoses / Procedures Referred By Contac t Referred To Contact Diagnoses Neck pain Hx of cervical spine surgery Lumbar pain Lumbar radiculopathy Yandel Petersen MD [address] [place] [address] Phone: tel: fax: Referral ID Status Reason Start Date Expiration Date V isits Requested Visits Authorized [id number] Open Specialty Services Required 07/29/2025 07/29/2026 1 1 TRANSITION MGR Encounter Details Date Type Department Care Team (Late st Contact Info) Description 07/16/2025 Orders Only [facility] - Orthopedics [address] [facility], [place] [address] Myriam Roman, DARRON Neck pain ; Hx [...] on file Legal Sex Female 11:46 AM CARE TRANSITION MGR Gender Identity Not on file Sexual Orientation [...] on: 07/29/2025 12:12 PM Modules accepted: Orders TRANSITION MGR documented in this encounter Plan of Treatment Upcoming Encounters Date Type Department Care Team (Latest Contact Info) Description 09/09/2025 11:15 AM CARE TRANSITION MGR Office Visit [facility] - Orthopedics [address] [place] [address] Yandel Petersen MD [address] [place] [address] 10/14/2025 7:20 AM CARE TRANSITION MGR Hospital Encounter [facility] [address] [place] [address] Mariano Guzmán MD [address] [place] [address] Surgery General 10/14/2025 7:20 AM CARE TRANSITION MGR - 10/14/2025 9:08 AM CARE TRANSITION MGR Surgery [facility] [address] [place] [address] Mariano Guzmán MD [address] [place] [address] ARTHROSCOPY SHOULDER BICEP TENODESIS, DEBRIDEMENT 10/22/2025 2:40 PM CARE TRANSITION MGR Office Visit [facility] - Orthopedic Surgery [address] [place] [address] Mariano Guzmán MD [address] [place] [address] 03/11/2026 2:00 PM CDT Office Visit [facility] - Rheumatology [address] [place] [address], [place] [address] Ev Lowery MD [address] [place] [address] [address] [place] [address] Scheduled Procedures Name Priority Associated Diagnoses Date/Ti me ARTHROSCOPY SHOULDER BICEP TENODESIS Chronic pain in right shoulder Biceps tendinitis of right shoulder 10/14/2025 7:20 AM CARE TRANSITION MGR Scheduled Referrals Name Type Priority Associated Diagnoses [...] you. Interventions: Mobility General Worsening( 1:20 PM CARE TRANSITION MGR) No Lilo Kaminski, DARRON Note: Expected end date: 11/17/2019 The goal is to maintain or improve your mobility at the optimum level for you. Interventions: PAIN General No Shira Sun, ADRRON Note: Expected end date: 01/18/2020 Patient's pain/discomfort [...] shoulder documented in this encounter Care Teams Aerospace Physiological Technician Relationship Specialty Start Date End Date Key Tolliver MD [address] [place], [place] [phone] PCP - General 10/22/18 Pablo Liriano MD [address] [place] [phone] Orthopedic Surgery 05/22/19 Evan Willis MD [address] [place] [phone] Medical Oncologist Medical Oncology 11/02/21 Charles Kingston MD [address] [place] [phone] Cigar Patcher Cardiology 11/03/21 documented as of this encounter
--- OUTSIDE RECORDS SUMMARY | 2025-07-29 17:57 | XMS_ITS ---
Author Organization [facility] Address [address] [place] [address] Care Team Providers Care Magnetic Locater Name Role Phone Key Tolliver MD Primary Care Provider Pablo Liriano MD Unavailable Evan Willis MD Unavailable [phone] Charles Kingston MD Unavailable Active Problems [...] hyperlipidemia 03/30/2021 Atherosclerotic heart diseas e of [place] coronary artery without angina pectoris 03/30/2021 Chest [...]
--- OUTSIDE RECORDS SUMMARY | 2025-07-29 17:57 | XMS_ITS | Encounter Summary ---
Author Organization [facility] Address [address] [place] [address] Care Team Providers Care Roller Gold Leaf Name Role Phone Key Tolliver MD Primary Care Provider [phone] Reason for Visit * Reason Comments Medication Refill Encounter Details Date Type Department Care Team ([facility] Contact Info) Description 11/20/2021 Refill [facility] PLASTIC SURGERY [address] [facility] [address] [place] [address] Rodolfo Turong MD [address] [place] [address] Social History Tobacco Use Types Packs/Day Years Used Date Smoking Tobacco: Never Smokeless Tobacco: Never Alcohol Use Standard Drinks/Week Comments No 0 (1 standard drink = 0.6 oz pur e alcohol) Comments No Sex and Gender Information Value Date Recorded Sex Assigned at Not on file Legal Sex Female 1:52 PM SCHOOL NURSE Gender Identity Not on file Sexual Orientation Not on file documented as of this encounter Plan of Treatment Upcoming Encounters Date Type Department Care Team (Late Contact Info) Description 12/24/2025 2:15 PM CDT Office Visit [facility] Oncology and Hematology - [place] [address] [facility] [address] [place] [address] Evan Willis MD [address] [facility] [address] [place] [address] documented as of this encounter Visit Diagnoses Not on filedocumented in this encounter Care Teams Roller Gold Leaf Relationship Specialty Start Date End Date Key Tolliver MD [address] [place] [address] PCP - General Internal Medicine 11/05/18 documented as of this encounter
[2025-07-29] MEDS: MORPHINE SULFATE (*CRX) 4 MG/ML INJ IV PUSH (18:33)
[2025-07-29] MEDS: SODIUM CHLORIDE 0.9% IV 1,000 ML 999 ML IV CONT (18:33)
[2025-07-29 18:37] LABS: Add Urine Microscopic? NO; Appearance Urine Clear (Clear); Glucose Urine UA Negative (Negative); Hematocrit 39.6 % (37.0-47.0); Hemoglobin 12.9 g/dL (12.0-15.0); Immature Granulocyte Percent A 0.5 % (0-0.5); Leukocyte Esterase Ur Negative LEU/UL (Negative); Lymphocytes Absolute Auto 3.94 K/mm3 (0.9-3.2); Mean Corpuscular HGB Conc 32.6 g/dl (32-36); Mean Corpuscular Hemoglobin 27.4 pg (26-34); Mean Corpuscular Volume 84.1 fl (80-100); Nitrate Urine Negative (Negative); Nucleated Red Blood Cells Absolute Auto 0.000 K/mm3 (0.0-0.012); Nucleated Red Blood Cells Perc 0.0 % (0.0-0.2); Platelet Count Result 269 k/mm3 (150-375); Red Blood Count 4.71 M/mm3 (4.2-5.4); Specific Grav Ur 1.013 (1.001-1.035); White Blood Count 8.8 K/mm3 (4.5-10.0)
[2025-07-29] MEDS: ONDANSETRON INJ 4 MG/2 ML VIAL IV PUSH (18:38)
[2025-07-29 18:47] LABS: INR 1.0; Prothrombin Time 12.8 Seconds (11.1-14.7)
[2025-07-29 18:48] LABS: Partial Thromboplastin Time 23.5 Seconds (22.3-36.8)
[2025-07-29 19:04] LABS: Alanine Aminotransferase 34 U/L (6-35); Albumin Level 4.6 g/dL (3.5-5.1); Alkaline Phosphatase 85 U/L (38-126); Anion Gap 7 mmol/L (4-12); Aspartate Amino Transferase 40 U/L (14-36); Bilirubin,Total 0.6 mg/dL (0.2-1.3); Blood Urea Nitrogen 9 mg/dL (7-17); Calcium 9.3 mg/dL (8.4-10.2); Carbon Dioxide 27 mmol/L (22-30); Chloride 102 mmol/L (98-107); Estimated CRCL calculation 71 ml/min; Estimated Glomerular Filt Rate > 60; Glucose 84 mg/dL (65-110); Lipase 105 U/L (23-300); Magnesium 1.9 mg/dL (1.6-2.3); Potassium 3.8 mmol/L (3.4-5.0); Sodium 136 mmol/L (137-145); Total Protein 9.2 g/dL (6.3-8.2)
[2025-07-29 19:20] LABS: Estimated CRCL calculation 66 ml/min; Estimated Glomerular Filt Rate 57
[2025-07-29] MEDS: METOCLOPRAMIDE HCL INJ 10 MG/2 ML VIAL IV PUSH (19:22)
--- NOTE | 2025-07-29 20:10 | PC.NURSE ---
rn attempted to give pt enema. Pt does not want enema at this time. EDP aware.
== END 2025-07-29 20:48 | disposition home or self-care (01) ==
PROVIDERS: Emergency Provider Registered Nurse; PCP Internal Medicine Infectious Disease
DX: K56.41 Fecal impaction (principal); K64.9 Unspecified hemorrhoids; R11.0 Nausea; R10.30 Lower abdominal pain, unspecified; I10 Essential (primary) hypertension; J44.9 Chronic obstructive pulmonary disease, unspecified; M32.9 Systemic lupus erythematosus, unspecified; D50.9 Iron deficiency anemia, unspecified; K21.9 Gastro-esophageal reflux disease without esophagitis; F32.A Depression, unspecified; Z98.1 Arthrodesis status; Z96.651 Presence of right artificial knee joint; Z85.3 Personal history of malignant neoplasm of breast; Z92.21 Personal history of antineoplastic chemotherapy; Z92.3 Personal history of irradiation; Z90.49 Acquired absence of other specified parts of digestive tract; Z90.13 Acquired absence of bilateral breasts and nipples; Z87.891 Personal history of nicotine dependence; K76.0 Fatty (change of) liver, not elsewhere classified; Z79.899 Other long term (current) drug therapy
CPT/HCPCS: 36415; 74174; 80053; 81003; 83690; 83735; 85025; 85610; 85730; 96361; 96374; 96375; 99284; J1200; J2270; J2405; J2765; J7030; Q9967

== ENCOUNTER 2025-08-07 01:00 | Day surgery (SDC) | payer OTHER, SELFPAY ==
[2025-07-28 14:22] VITALS: BMI 36.6
--- NOTE | 2025-07-29 09:53 | PC.NURSE ---
Addendum entered by Mame Ge RN 07/29/25 13:25: pt was instructed to be NPO for 8 hours before her surgery, which is also noted on the purple sheet. please disregard the other instruction listed below on diet. pt was instructed, acknowledged, and vebalized her understanding she is to be NPO for 8 hours prior to surgery. Original Note: [facility] has started construction of its new state of the art ER which will open Spring 2026. With this, we anticipate parking may be a challenge for some our surgical patients and families. Parking spaces are limited but are available for all Surgical, obstetrics, and ER patients sharing this lot. If you arrive and find you are having a hard time finding a parking space, please note that we understand the challenges, please drive around the hospital and park near Hospital Entrance 1. When you enter this entrance, you can ask a volunteer to direct or take you back to the surgical waiting area to check in. We appreciate everyone?s understanding of these expected challenges while we build for your future. Report to the Outpatient Waiting Room, entrance under the green pavilion located off [facility], at time ___1015____ on date _08/07/2025 . Planned Procedure Time: _1215 .? Time changes happen often and if your time is changed the preop area will call you the afternoon before. - You and your visitor will be asked to self-screen and do not enter if you have any COVID symptoms. Please call surgeon if you need to reschedule. - A mask is optional within the hospital at this time. Patients may have clear liquids (water, carbonated beverages, clear teas, apple juice) until 3 hours prior to surgery with a maximum of 20 ounces. - No food from midnight until time of surgery and no smoking, or chewing tobacco (or any form of nicotine). No chewing gum, candy or mints. - Infants may have breast milk until 4 hours before surgery, infant formula 6 hours prior to surgery. - Children will be allowed to drink immediately following surgery.? If applicable, please bring a bottle or sippy cup to assist with drinking. Juice, water, soda, and popsicles are readily available.? For infants on formula, please bring formula the day of surgery.? Pacifiers are allowed. Take only the following medications with a SIP of water on the morning of surgery: __venlafaxine, albuteral inhaler, famotidine, nifedipine, metoprolol DO NOT STOP ANY OF YOUR OTHER PRESCRIPTION MEDICATIONS PRIOR TO SURGERY EXCEPT THE FOLLOWING Hold all vitamins and supplements for 3 days per anesthesiologist. Medications to discontinue per physician losartan Date to take last dose____08/06/2025 Please no make-up, nail romanian, hairspray, perfume, deodorant, or body powder the day of surgery.? No jewelry (including any body piercings) or valuables the day of surgery, leave them at home.? Please take a shower or bath the night before, or the morning of, surgery with an antibacterial soap.? Wear comfortable, loose fitting clothing.? Children are encouraged to wear pajamas. - Jewelry must be removed prior to entering the operating room.? Rings and piercings that are not removed may be cut off. - The hospital will not accept responsibility for valuables.? - Please leave all valuables, including medications, at home the day of surgery. If you are going home after surgery, a licensed lifter/driver must drive you home.? - NO public transportation without another adult if you receive anesthesia. - We recommend that an adult stay with you for 24 hours following discharge. - We also recommend that you do not drive, make important decision, drink alcoholic beverages, or take any drugs that were not prescribed by your health care provider for at least 24 hours after your discharge time. For Pediatric surgeries, we recommend two adults accompany the child home. Follow any additional instructions given to you from your surgeon. Telephone instructions given to Jamarcus Mcnulty and asked if any additional questions and then verbalized understanding. Patient advised to call surgeon office or pre surgery nurse liaison [phone] if any additional questions.
[2025-08-07] VITALS (16 sets, daily range): BP systolic 108–160; BP diastolic 67–100; PULSE 82–101; RESP 12–18; TEMP 36.1–36.6; O2SAT 92–97
--- OUTSIDE RECORDS SUMMARY | 2025-08-07 01:07 | XMS_ITS | Encounter Summary ---
Author Organization [facility] Address [address] [facility] [place] [address] Care Team Providers Care Senior Software Systems Engineer Name Role Phone Key Tolliver MD Primary Care Provider Pablo Liriano MD Unavailable Evan Willis MD Unavailable [phone] Charles Kingston MD Unavailable Reason for Visit * Reason Onset Date Comments Question 02/20/2025 Encounter Details Date Type Department Care Team (Late st Contact Info) Description 02/20/2025 Telephone [facility] - Orthopedic Surgery [address] [address] Tamie Olivas, RN Question Social [...] on file Legal Sex Female 11:46 AM IN ROOM DINING SERVER Gender Identity Not on file Sexual Orientation [...] (Latest Contact Info) Description 09/09/2025 11:15 AM IN ROOM DINING SERVER Office Visit [facility] - Orthopedics [address] [facility] [place] [address] Yandel Petersen MD [address] [place] [address] 10/14/2025 7:20 AM IN ROOM DINING SERVER Hospital Encounter [facility] Op [address] [place] [address] Mariano Guzmán MD [address] [place] [address] Surgery General 10/14/2025 7:20 AM IN ROOM DINING SERVER - 10/14/2025 9:08 AM IN ROOM DINING SERVER [facility] [place] [address] [address] Mariano Guzmán MD [address] [place] [address] ARTHROSCOPY SHOULDER BICEP TENODESIS, DEBRIDEMENT 10/22/2025 2:40 PM IN ROOM DINING SERVER Office Visit [facility] - Orthopedic Surgery [address] [place] [phone] Mariano Guzmán MD [address] [place] [address] 03/11/2026 2:00 PM CDT Office Visit [facility] - Rheumatology [address] [place] [address], [place] [address] Ev Lowery MD [address] [place] [address] [place] [address] Scheduled Procedures Name Priority Associated Diagnoses Date/Ti me ARTHROSCOPY SHOULDER BICEP TENODESIS Chronic pain in right shoulder Biceps tendinitis of right shoulder 10/14/2025 7:20 AM IN ROOM DINING SERVER documented as of this encounter Goals Goal Patient Goal Type Associated Problems Recent Progress Patient-Stated? Author Mobility General Improving( 1:50 PM CDT) Coreen Rider, RN Note: Expected end date: 12/01/2020 The goal is to maintain or improve your mobility at the optimum level for you. Interventions: Mobility General Worsening( 1:20 PM IN ROOM DINING SERVER) No Lilo Kaminski RN Note: Expected end date: 11/17/2019 The goal is to maintain or improve your mobility at the optimum level for you. Interventions: PAIN General No Shira Sun RN Note: Expected end date: 01/18/2020 Patient's pain/discomfort is manageable. Interventions: documented as of this encounter Visit Diagnoses Not on filedocumented in this encounter Care Teams Senior Software Systems Engineer Relationship Specialty Start Date End Date Key Tolliver MD [address] [place] [phone] PCP - General 10/22/18 Pablo Liriano MD [address] [place] [phone] Orthopedic Surgery 05/22/19 Evan Willis MD [address] [place] [phone] Medical Oncologist Medical Oncology 11/02/21 Charles Kingston MD [address] [place] [phone] Classifications Officer Cc/Cm Cardiology 11/03/21 documented as of this encounter
--- OUTSIDE RECORDS SUMMARY | 2025-08-07 01:07 | XMS_ITS | Clinical Summary ---
Author Organization [facility] Address [address] [place] [address] Care Team Providers Care Wire Coiler Name Role Phone Unavailable Primary Care Provider Unavailabl e Allergies Active Allergy Reactions Criticality Noted Date Comments Tape Rash Low 09/12/2016 Medications anastrozole 1 MG tablet TAKE 1 TABLET(1 MG) BY MOUTH DAILY 7 Active cholecalciferol (D3-50) 59861 units capsule Take 100,000 Units by mouth [...] A MEAL 8 Active multi vitamin/mineral s (VITAMINS/CREW TRUCK DRIVER ALS) tablet Take 1 tablet by mouth. [...] Comments Blood Pressure 146/90 08/01/2018 1:02 PM PRACTICE COORDINATOR Pulse 89 08/01/2018 1:02 PM PRACTICE COORDINATOR Temperature 36.6 C (97.9 F) 08/01/2018 1:02 PM PRACTICE COORDINATOR Respiratory Rate 20 08/01/2018 1:02 PM PRACTICE COORDINATOR Oxygen Saturation 100% 08/01/2018 1:02 PM PRACTICE COORDINATOR Inhaled Oxygen Concentration - - Weight 88 kg (194 lb) 08/01/2018 1:02 PM PRACTICE COORDINATOR Height 167.6 cm (5' 6) 08/01/2018 1:02 PM PRACTICE COORDINATOR Body Mass Index 31.31 08/01/2018 1:02 PM PRACTICE COORDINATOR Plan of Treatment Health Maintenance Due Date [...]
--- OUTSIDE RECORDS SUMMARY | 2025-08-07 01:07 | XMS_ITS ---
Author Organization [facility] Address [address] [place] [address] Care Team Providers Care Mangle Tender Cloth Name Role Phone Key Tolliver MD Primary Care Provider Pablo Liriano MD Unavailable Evan Willis MD Unavailable [phone] Charles Kingston MD Unavailable Active Problems [...] hyperlipidemia 03/30/2021 Atherosclerotic heart diseas e of [place] coronary artery without angina pectoris 03/30/2021 Chest [...]
--- OUTSIDE RECORDS SUMMARY | 2025-08-07 01:07 | XMS_ITS | Encounter Summary ---
Author Organization [facility] Address [address] [place] [address] Care Team Providers Care Fusing Machine Operator Name Role Phone Key Tolliver MD Primary Care Provider [phone] Reason for Visit * Reason Comments Medication Refill Encounter Details Date Type Department Care Team ([facility] Contact Info) Description 05/11/2020 [facility] [address] [facility] [address] [place] [address] Rodolfo Truong MD [address] [place] [address] Malignant neoplasm of upper-outer quadrant [...] on file Legal Sex Female 1:52 PM WINDOW SYSTEMS ADMINISTRATOR Gender Identity Not on file Sexual Orientation [...] Description 12/24/2025 2:15 PM CDT Office Visit [facility] Oncology and Hematology - [place] [address] [place] [address] Evan Willis MD [address] [facility] [address] [place] [address] documented as of this encounter Visit Diagnoses Diagnosis Malignant neoplasm of upper-outer quadrant of left breast in female, estrogen receptor positive (CMS/HCC) documented in this encounter Care Teams Fusing Machine Operator Relationship Specialty [place] [address] [place] [phone] PCP - General Internal Medicine 11/05/18 documented as of this encounter
--- OUTSIDE RECORDS SUMMARY | 2025-08-07 01:07 | XMS_ITS | Clinical Summary ---
Author Organization [facility] Address [address] [facility] [place] [address] Care Team Providers Care Exhibition Designer Name Role Phone Key Tolliver MD Primary Care Provider [phone] Allergies Active Allergy Reactions Criticality Noted Date [...] mouth daily. Active naloxone (NARCAN) 4 mg/spray [place], Non-Aerosol EMERGENCY USE ONLY: Administer 1 spray [...] Abstract 06/25/2025 2:00 PM CDT Office Visit [facility] Oncology and Hematology - [place] [address] [place] [address] Evan Willis MD Malignant neoplasm of upper-outer quadrant of left breast in female, estrogen receptor positive (CMS/HCC) (Primary Dx) 06/18/2025 Orders Only [facility] Oncology and Hematology - [place] [address] [place] [address] Evan Willis MD 06/17/2025 Orders Only [facility] Oncology and Hematology - [place] [address] [place] [address] Evan Willis MD from Last 3 Months Immunizations Immunization Administration [...] on file Legal Sex Female 1:52 PM STOCK GRADER Gender Identity Not on file Sexual Orientation Not on file Last Filed Vital Signs Vital Sign Reading Time Taken Comments Blood Pressure 140/102 06/25/2025 1:57 PM CDT man ual Pulse 79 06/25/2025 1:51 PM CDT Temperature 36.4 C (97.6 F) 06/25/2025 1:51 PM CDT Respiratory Rate 15 06/25/2025 1:51 PM CDT Oxygen Saturation 93% 06/25/2025 1:51 PM CDT Inhaled Oxygen Concentration - - Weight 103.5 kg (228 lb 3.2 oz) 06/25/2025 1:51 PM CDT Height 165.1 cm (5' 5) 08/11/2024 12:5 5 PM STOCK GRADER Body Mass Index 37.97 08/11/2024 12:55 PM STOCK GRADER Plan of Treatment Upcoming Encounters Date Type Department Care Team (Late st Contact Info) Description 12/24/2025 2:15 PM CDT Office Visit [facility] Oncology and Hematology - [place] [address] [facility] [address] [place] [address] Evan Willis MD [address] [facility] [address] [place] [address] Health Maintenance Due Date Last [...] 09/11/2027 09/11/2017 Medical Devices Implanted Type Area Loss Claim Clerk Device Identifier Shelf Expiration Date Model / Serial / Lot Production Laborer Clip Surgiclip Ii Yordan 9.75in [id number] - [id number] Implanted:Qty: 1 on 10/23/2019 by Rodolfo Truong MD at [facility] Clip N/A: Breast [employer] - COVIDIEN [id number] 06/02/2024 [id number] / / [id number] Natrelle Inspira Softtouch Breast Implant Implanted:Qty: 1 on 07/28/2024 by Rodolfo Truong MD at [facility] Other Right: Breast ALLERGAN- MEDICAL [id number] 10/08/2028 SSX-750 / [id number] / Natrelle Inspira Softtouch Breast Implant Implanted:Qty: 1 on 07/28/2024 by Rodolfo Truong MD at [facility] Other Left: Breast ALLERGAN- MEDICAL [id number] 07/16/2026 SSF-745 / [id number] / Description:Both Allergan Im plants Requisition,[id number]. Knee Replacement-Yves Plate/ Screws Of Neck Left Shoulder Replacement Explanted Type Area Loss Claim Clerk Device Identifier Shelf Expiration Date Model / Serial / Lot Tissue Technical Agronomist W/ Suture Tabs Implanted:Qty: 1 on 10/23/2019 by Rodolfo Truong MD at [facility] Explanted:Qty: 1 on 04/06/2020 at [facility] Mammary Left: Breast [employer]ERGAN- MEDICAL [id number] 07/07/2024 133S-MX-1 3-T / [id number] / Description:Filled with 120m l 0.9% NaCl Both Allergan tissue expanders are processed on requisition [id number]. Tissue Technical Agronomist With Suture Tabs Implanted:Qty: 1 on 10/23/2019 by Rodolfo Truong MD at [facility] Explanted:Qty: 1 on 04/06/2020 at [facility] Mammary Right: Breast ALLERGAN- MEDICAL 04/25/2024 133S-MX-1 3-T / [id number] / Description:Requisition # [id number] Natrelle Inspira Softtouch Breast Implant 450cc Implanted:Qty: 1 on 04/06/2020 by Rodolfo Truong MD at [facility] Explanted:Qty: 1 on 08/16/2020 at [facility] Mammary Left: Breast [employer]ER[employer]- MEDICAL [id number] 08/17/2024 SSF-450 / [id number] / Description:Both Allergan Br east Implants are processed on requisition [id number]. Natrelle Inspira Softtouch Breast Implant 525cc Implanted:Qty: 1 on 04/06/2020 by Rodolfo Truong MD at [facility] Explanted:Qty: 1 on 08/16/2020 at [facility] Mammary Right: Breast [employer]ERGAN- MEDICAL [id number] 12/29/2023 SSX-525 / [id number] / Description:Requisition # [id number]. Natrelle Inspira Soft Touch Ssf-560 Implanted:Qty: 1 on 08/16/2020 at [facility] Explanted:Qty: 1 on 02/22/2023 by Rodolfo Truong MD at [facility] Right: Breast ALLERGAN- MEDICAL [id number] 06/21/2024 SSF-560 / [id number] / Description:Requisition # [id number] left breast Imp Breast Inspira Ssx 700ml Ssx-700 - [id number] Explanted:Qty: 1 on 02/22/2023 at [facility] Right: Breast ALLERGAN- MEDICAL 01/04/2026 SSX-700 / [id number] / Natrelle Inspira Softtouch Ssx-615 Implanted:Qty: 1 on 08/16/2020 at [facility] Explanted:Qty: 1 on 02/22/2023 by Rodolfo Truong MD at [facility] Right: Breast ALLERGAN- MEDICAL [id number] 10/15/2024 SSX-615 / [id number] / Description:both Allergan re placement breast implants are processed on requisition [id number]. Imp Breast Inspira Ssf 650ml Ssf-650 - [id number] Implanted:Qty: 1 on 02/22/2023 by Rodolfo Truong MD at [facility] Explanted:Qty: 1 on 07/28/2024 by Rodolfo Truong MD at [facility] Left: Breast ALLERGAN- MEDICAL 09/11/2027 SSF-650 / [id number] / Imp Breast Inspira Ssx 615ml Ssx-615 - [id number] Implanted:Qty: 1 on 02/22/2023 by Rodolfo Truong MD at [facility] Explanted:Qty: 1 on 07/28/2024 by Rodolfo Truong MD at [facility] Right: Breast ALLERGAN- MEDICAL 10/15/2024 SSX-615 / [id number] / Description:Original implant placed on 08/16/2020 was [...] Most Recently Relevant to Health Maintenance Insurance HEALTH PLAN MEDICAID RX [place] PLANS (INTERNAL) [facility] Plans RX [employer] Medicaid RX [employer] Commercial GENERIC PAYOR [facility] MEDICAID Advance Directives For more information, please contact: [phone] * Full Code (Latest Code Status on [...] 8:44 AM 10/23/2019 2:10 PM Care Teams Exhibition Designer Relationship Specialty [place] [address] [place] [phone] PCP - General Internal Medicine 11/05/18
--- OUTSIDE RECORDS SUMMARY | 2025-08-07 01:07 | XMS_ITS | Clinical Summary ---
Author Organization [facility] Address [address] [place] [address] Care Team Providers Care Counseling Psychologist Name Role Phone Key Tolliver MD Primary Care Provider Pablo Liriano MD Unavailable [phone] Evan Willis MD Unavailable [phone] Charles Kingston MD Unavailable Source Comments [facility],non-owned Affiliates and Associated Physician Practices is amultiple site organization consisting of ambulatory clinics and hospital sitesin [place], [place], [place] and [place]. This disclosure is being madepursuant to the Care Everywhere program and may not contain all information available regarding this patient. 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 Take 1 (one) tablet by mouth every 6 hours as needed for Pain (For right shoulder) 28 tablet 07/09/20 25 Active HYDROcodone-satish taminophen (Orla) 5-325 MG tabletIndicatio ns:Chronic left shoulder pain,History [...] Port-a-Cath 2021 Pyogenic arthritis of left s [facility][note 3] region, due to unspecified organism 06/13/2022 Postoperative [...] hyperlipidemia 03/30/2021 Atherosclerotic heart diseas e of [place] coronary artery without angina pectoris 03/30/2021 Chest [...] Guzmán MD Surgery Scheduling 07/16/2025 11:37 AM SAMPLE ROOM SUPERVISOR - 07/16/2025 11:59 PM SAMPLE ROOM SUPERVISOR Hospital Encounter [facility] Imaging Services - [address] [address] Yanedl Petersen MD Discharge Disposition: Home or Self Care 07/16/2025 11:37 AM SAMPLE ROOM SUPERVISOR - 07/16/2025 11:59 PM SAMPLE ROOM SUPERVISOR Hospital Encounter [facility] Imaging Services - [address] [address] Yandel Petersen MD Discharge Disposition: Home or Self Care 07/16/2025 Orders Only [facility] - Orthopedics [address] [place] [phone] Myriam Roman RN Neck pain ; Hx of cervical spine surgery; Lumbar pain; Lumbar radiculopathy 07/15/2025 Orders Only [facility] - 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 [address] [facility] [address] [place] [phone] Zechariah Soto LPN MEDICATION REFILL 07/09/2025 Travel 06/30/2025 Orders Only [facility] - Orthopedic Surgery [facility] [place] [phone] Yandel Petersen MD Neck pain ; Hx of cervical spine surgery; Lumbar pain; Lumbar radiculopathy 06/30/2025 Orders Only [facility] - Orthopedics [address] [place] [phone] Myriam Roman, DARRON Lumbar pain; Neck pain; Hx of cervical spine surgery 06/27/2025 Refill [facility] - Orthopedic Surgery [address] [place] [phone] Latrice Salinas MD Refill Request 06/10/2025 Telephone [facility]ician [facility] [address] [place] [phone] Myriam Roman, RN Appointment 06/05/2025 Telephone [facility]ician [facility] [address] [place] [phone] Myriam Roman, fishing worker 05/28/2025 2:30 PM CDT Office Visit [facility] Physician [facility] - Orthopedic Surgery [address] [place] [phone] Yandel Petersen MD Lumbar pain (Primary Dx); Lumbar radiculopathy; Status post cervical disc replacement; Pain in joint of right shoulder 05/28/2025 1:00 PM CDT - 05/28/2025 11:59 PM CDT Hospital Encounter [facility] Physician [facility] - Orthopedics [address] [place] [address] [address] [place] [phone] Yandel Petersen MD Discharge Disposition: Home or [...] on file Legal Sex Female 11:46 AM SAMPLE ROOM SUPERVISOR Gender Identity Not on file Sexual Orientation [...] 103 kg (227 lb) 07/09/2025 12:56 PM SAMPLE ROOM SUPERVISOR Height 165.1 cm (5' 5) 07/09/2025 12:56 PM SAMPLE ROOM SUPERVISOR Body Mass Index 37.77 07/09/2025 12:56 PM SAMPLE ROOM SUPERVISOR Plan of Treatment Upcoming Encounters Date Type Department Care Team (Latest Contact Info) Description 09/09/2025 11:15 AM SAMPLE ROOM SUPERVISOR Office Visit [facility] - Orthopedics [address] [place] [phone] Yandel Petersen MD [address] [place] [address] 10/14/2025 7:20 AM SAMPLE ROOM SUPERVISOR Hospital Encounter [facility] [address] [address] Mariano Guzmán MD [address] [place] [address] Surgery General 10/14/2025 7:20 AM SAMPLE ROOM SUPERVISOR - 10/14/2025 9:08 AM SAMPLE ROOM SUPERVISOR Surgery [facility] [address] [phone] Mariano Guzmán MD [address] [address] ARTHROSCOPY SHOULDER BICEP TENODESIS, DEBRIDEMENT 10/22/2025 2:40 PM SAMPLE ROOM SUPERVISOR Office Visit [facility] - Orthopedic Surgery [address] [phone] Mariano Guzmán MD [address] [address] 03/11/2026 2:00 PM CDT Office Visit [facility] - Rheumatology [address] [place] [address], [place] [phone] Ev Lowery MD [address] [place] [address] [address] [facility] [place] [phone] Scheduled Procedures Name Priority Associated Diagnoses Date/Ti me ARTHROSCOPY SHOULDER BICEP TENODESIS Chronic pain in right shoulder Biceps tendinitis of right shoulder 10/14/2025 7:20 AM SAMPLE ROOM SUPERVISOR Health Maintenance Due Date Last Done Comments [...] you. Interventions: Mobility General Worsening( 1:20 PM SAMPLE ROOM SUPERVISOR) No Lilo Kaminski RN Note: Expected end date: 11/17/2019 The goal is to maintain or improve your mobility at the optimum level for you. Interventions: PAIN General No Shira Sun RN Note: Expected end date: 01/18/2020 Patient's pain/discomfort is manageable. Interventions: Medical Devices Implanted Type Area Drainman Device Identifier Shelf Expiration Date Model / Serial / Lot Cmnt Bone Plc R+Ggnta 40gm Lf Grn Implanted:Qty: 1 on 10/11/2017 by Rajendra Ingram MD at [facility] Left: Knee Awn Biomet 12/01/2020 [id number] / / [id number] Description:12 BEADS IN LEFT KNEE ON VICRYL SUTURE 21 BEADS IN RIGHT KNEE ON VICRYL SUTURE Brng [id number] Vngrd Arcm Kn Ant Stab Implanted:Qty: 1 on 10/16/2017 by Rajendra Ingram MD at [facility] Left: Knee Wan [employer]omet 06/09/2022 [id number] / / Brng [id number] Vngrd Arcm Kn Ant Stab Implanted:Qty: 1 on 10/16/2017 by Rajendra Ingram MD at [facility] Right: Knee Wan [employer]omet 07/25/2022 [id number] / / Cmpnt Tibtry Bmt As Mx Kn Intlk Prm Lck Implanted:Qty: 1 on 10/16/2017 by Rajendra Ingram MD at [facility] Left: Knee Wan [employer] 07/11/2027 [id number] / / Cmpnt Tibtry Bmt As Mx Kn Intlk Prm Lck Implanted:Qty: 1 on 10/16/2017 by Rajendra Ingram MD at [facility] Right: Knee Wan [employer] 06/17/2027 [id number] / / Kam Kn Tot Rev 50% Of 2014 Implanted:Qty: 1 on 10/16/2017 by Rajendra Ingram MD at [facility] Wan Biomet KR2 KNEE TO T REV WAN BILL ONLY / / Cmpnt Glnd 38mm Std Glenosphere Sckt Geovany Implanted:Qty: 1 on 03/19/2019 by Pablo Liriano MD at [facility] Left: Shoulder [employer] Inc 11/01/2023 [id number] / / Description:DXTND GLENOSPHER E STD T51AG--19/22 LG Dxtend Mod Cent Epi 1 Ocampo Implanted:Qty: 1 on 03/19/2019 by Pablo Liriano MD at [facility] Left: Shoulder 01/01/2024 1307-20-101 / / Description:delta xtend mudu lar centered epiphysis Global Unite Std Stem Sz 8 Implanted:Qty: 1 on 03/19/2019 by Pablo Liriano MD at [facility] Left: Shoulder 08/02/2027 1100-08-100 / / Description:global unite por ocoat standard stem Dxtend Stand Pe Cup D38 +3mm Implanted:Qty: 1 on 03/19/2019 by Pablo Liriano MD at [facility] Left: Shoulder 1307-38-203 / / [id number] Description:Delta xtend lyudmila ral PE cup standard Sys Shld Tot Arthroplst Rev Implanted:Qty: 1 on 03/19/2019 by Pablo Liriano MD at [facility] Left: Shoulder [employer] S4 DEPUY / / Cmpnt Glnd 27mm Std Geovany Xtend Metaglene Implanted:Qty: 1 on 03/19/2019 by Pablo Liriano MD at [facility] Left: Shoulder [employer] 12/02/2023 1307-60-000 / / Description:DXTEND METAGLENE Dxtend Screw Lock D4.5x36mm Implanted:Qty: 1 on 03/19/2019 by Pablo Liriano MD at [facility] Left: Shoulder 12/02/2023 1307-90-036 / / Description:PACK ACL TISSUE FX CSTM SRG PRC DISP Screw 4.5mm 30mm Shldr Glnd Lck Geovany Implanted:Qty: 1 on 03/19/2019 by Pablo Liriano MD at [facility] Left: Shoulder [employer] 01/01/2024 1307-90-030 / / Description:DXTEND SCREW LOC K D4.0U39AL--51/22 LG 6.5mm Canellous Screw Implanted:Qty: 1 on 10/25/2020 by Anjelica Gutierres MD at [facility] Right: Ankle Wan [employer] 486-55-01 / / 6.5mm Cancellous Screw Implanted:Qty: 1 on 10/25/2020 by Anjelica Gutierres MD at [facility] Right: Ankle Wan [employer] / / Cortical Screw 2.7mm Implanted:Qty: 1 on 10/25/2020 by Anjelica Gutierres MD at [facility] Right: Ankle Wan [employer] 09-3929-517-35 / / Screw 3.5mm 32mm 2.5mm Slf-Tap Sm Hex Implanted:Qty: 2 on 10/25/2020 by Anjelica Gutierres MD at [facility] Right: Ankle Wan [employer]omet [id number] / / Screw 3.5mm 45mm 2.5mm Slf-Tap Sm Hex Implanted:Qty: 1 on 10/25/2020 by Anjelica Gutierres MD at [facility] Right: Ankle Wan [employer]omet [id number] / / Graft Bone Alfs + Dbm 1cc Algrf Pst Implanted:Qty: 1 on 10/25/2020 by Anjelica Gutierres MD at [facility] Right: Ankle Allosource 04/08/2021 [id number] / / [id number] Bsplt Glnd 30mm Rsp Shldr P2 Strl Lf Implanted:Qty: 1 on 04/26/2022 by Mraiano Guzmán MD at [facility] Left: Shoulder [employer]ics 03/23/2028 508-32-204 / / [id number] Screw 5mm 14mm Shldr Lck Rsp Glnd Bsplt Implanted:Qty: 1 on 04/26/2022 by Mariano Guzmán MD at [facility] Left: Shoulder [employer] 03/25/2028 506-03-114 / / [id number] Screw 5mm 14mm Shldr Lck Rsp Glnd Bsplt Implanted:Qty: 1 on 04/26/2022 by Mariano Guzmán MD at [facility] Left: Shoulder [employer] 04/05/2028 506-03-114 / / [id number] Screw 5mm 30mm Shldr Lck Rsp Glnd Bsplt Implanted:Qty: 1 on 04/26/2022 by Mariano Guzmán MD at [facility] Left: Shoulder [employer] 03/13/2028 506-03-130 / / [id number] Screw 5mm 30mm Shldr Lck Rsp Glnd Bsplt Implanted:Qty: 1 on 04/26/2022 by Mariano Guzmán MD at [facility] Left: Shoulder [employer] 03/18/2028 506-03-130 / / [id number] Cmnt Bone Djo Srg Cblt 40gm Hvisc Strl Implanted:Qty: 1 on 04/26/2022 by Mariano Guzmán MD at [facility] Left: Shoulder [employer] 03/16/2023 600-15-000 / / [id number] Head Glnd 32mm Rsp Ntrl Shldr Rtn Screw Implanted:Qty: 1 on 04/26/2022 by Mariano Guzmán MD at [facility] Left: Shoulder [employer] 03/22/2028 508-32-101 / / [id number] Sckt Rsp Djo Srg +4mm Hum Hxe+ Implanted:Qty: 1 on 04/26/2022 by Mariano Guzmán MD at [facility] Left: Shoulder [employer] 12/26/2026 509-01-432 / / [id number] Humeral Stem Reverse Size 8mm X 108mm Implanted:Qty: 1 on 04/26/2022 by Mariano Guzmán MD at [facility] Left: Shoulder [employer] 10/05/2027 530-08-108 / / [id number] Rstrc Cmnt Cl Ct 10mm Implanted:Qty: 1 on 04/26/2022 by Mariano Guzmán MD at [facility] Left: Shoulder [employer] 07/03/2024 415-00-100 / / [id number] Rsp Humeral Socket Insert 32mm Semi-Constrain ed Implanted:Qty: 1 on 06/14/2022 by Mariano Guzmán MD at [facility] Left: Shoulder [employer] 08/12/2026 509-01-032 / / [id number] Spcr Hum Djo Srg Rsp +8mm Mnblck Strl Lf Implanted:Qty: 1 on 06/14/2022 by Mariano Guzmán MD at [facility] Left: Shoulder [employer] 04/12/2028 510-08-000 / / [id number] Head Glnd 32mm Rsp Ntrl Shldr Rtn Screw Implanted:Qty: 1 on 06/14/2022 by Mariano Guzmán MD at [facility] Left: Shoulder [employer] 05/17/2028 508-32-101 / / [id number] Screws Implanted:Qty: 1 on 08/10/2023 by Jace Muller MD at [facility] Left: Ankle AR-8935-32 / / Description:3.0-4.0 ARTHREX VENDOR TRAY Screw Implanted:Qty: 1 on 08/10/2023 by Jace Muller MD at [facility] Left: Ankle Arthrex Inc AR-8940-34 / / Description:3.0-4.0 ARTHREX TRAY Kit Bngf 3cc Aug Inj Implanted:Qty: 1 on 01/14/2024 by Jace Muller MD at [facility] Left: Ankle Red Aril Inc 08/30/2026 [id number] / / [id number] Graft Bone Ignite 2 Mini 4cc Pwr Mx - [id number] Implanted:Qty: 1 on 01/14/2024 by Jace Muller MD at [facility] Left: Ankle Red Aril Inc 07/19/2028 [id number] / [id number] / Allosync Pure 5cc Implanted:Qty: 1 on 01/14/2024 by Jace Muller MD at [facility] Left: Ankle Arthrex Inc 08/20/2028 ABS-2009-05 / / [id number] 7.0 Screw 55 Implanted:Qty: 1 on 01/14/2024 by Jace Muller MD at [facility] Left: Ankle Arthrex Inc AR-8770-5H / / 7.0 Screw 40 Implanted:Qty: 1 on 01/14/2024 by Jace Muller MD at [facility] Left: Ankle Arthrex Inc AR-8770-40H / / Explanted Type Area Drainman Device Identifier Shelf Expiration Date Model / Serial / Lot Cortical Screw 3.5mm Explanted:Qty: 1 on 10/25/2020 at [facility] Right: Ankle Wan Biomet 00-4835-036 -01 / / 4.0mm Screw Explanted:Qty: 1 on 08/10/2023 at [facility] Left: Ankle AR-8940-32 / / Screw 3mm 20mm T10 Ft Slf-Tap Lck Strdr Explanted:Qty: 1 on 08/10/2023 by Felipe Bourne MD at [facility] Left: Ankle Arthrex Inc AR-8933L-20 / / Screw 3mm 18mm Va Slf-Tap Sld Lck Ankl Explanted:Qty: 1 on 08/10/2023 by Felipe Bourne MD at [facility] Left: Ankle Arthrex Inc AR-8933V-18 / / Wire K .062in 6in Fx 2 Troc Explanted:Qty: 2 on 08/10/2023 at [facility] Left: Ankle [employer] [id number] / / Screw 3.5mm 28mm T15 Ft Slf-Tap Sld Hxlb Implanted:Qty: 1 on 08/10/2023 by Jace Muller MD at [facility] Explanted:Qty: 1 on 01/14/2024 by Jace Muller MD at [facility] Left: Ankle Arthrex Inc AR-8935CL-2 8 / / Screw 3.5mm 26mm T15 Ft Slf-Tap Sld Hxlb Implanted:Qty: 1 on 08/10/2023 by Jace Muller MD at [facility] Explanted:Qty: 1 on 01/14/2024 by Jace Muller MD at [facility] Left: Ankle Arthrex Inc AR-8935CL-2 6 / / Plate Calc 7.5mm Stp Bone Implanted:Qty: 1 on 08/10/2023 by Jace Muller MD at [facility] Explanted:Qty: 1 on 01/14/2024 by Jace Muller MD at [facility] Left: Ankle Arthrex Inc AR-8949-075 / / 3.5mm Locking Screw Implanted:Qty: 1 on 08/10/2023 by Jace Muller MD at [facility] Explanted:Qty: 1 on 01/14/2024 by Jace Muller MD at [facility] Left: Ankle AR-8935CL-2 4 / / Description:3.0-4.0 ARTHREX VENDOR TRAY Screw 3mm 16mm Va Slf-Tap Sld Lck Ankl Implanted:Qty: 1 on 08/10/2023 by Felipe Bourne MD at [facility] Explanted:Qty: 1 on 01/14/2024 by Jace Muller MD at [facility] Left: Ankle Arthrex Inc AR-8933V-16 / / Screw 3mm 20mm Va Slf-Tap Sld Lck Ankl Implanted:Qty: 1 on 08/10/2023 by Felipe Bourne MD at [facility] Explanted:Qty: 1 on 01/14/2024 by Jace Muller MD at [facility] Left: Ankle Arthrex Inc AR-8933V-20 / / Procedures Procedure Name Priority Date/Time Associated Diagnosis Comments MRI LUMBAR SPINE WO CONTRAST Routine 07/16/2025 1:13 PM SAMPLE ROOM SUPERVISOR Lumbar pain Lumbar radiculopathy MRI CERVICAL SPINE WO CONTRAST Routine 07/16/2025 12:40 PM SAMPLE ROOM SUPERVISOR Neck pain Hx of cervical spine surgery XR LUMBAR SPINE 2 OR 3VW Routine 05/28/2025 1:05 PM CDT Lumbar pain COMPREHENSIVE METABOLIC PANEL Routine 09/17/2024 12:09 PM SAMPLE ROOM SUPERVISOR Positive double stranded 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 ANTIBODY + HIV P24 AG PANEL AM Draw 10/12/2017 4:43 AM SAMPLE ROOM SUPERVISOR HEPATITIS C ANTIBODY Routine 12/27/2015 5:08 PM CDT from Last 3 Months or Most Recently Relevant to Health Maintenance Results * MRI Lumbar Spine Wo Contrast (07/16/2025 1:13 PM SAMPLE ROOM SUPERVISOR) Anatomical Region Laterality Modality Spine Magnetic Resonan ce 07/16/2025 1:31 PM SAMPLE ROOM SUPERVISOR Impressions 07/16/2025 1:36 PM SAMPLE ROOM SUPERVISOR IMPRESSION: 1.Negative for fracture, suspicious intrinsic bony [...] 07/16/2025 1:36 PM Narrative 07/16/2025 1:36 PM SAMPLE ROOM SUPERVISOR PROCEDURE: MRI LUMBAR SPINE WO CONTRAST DATE/TIME [...] standard protocol on a 1.0 Rosa Maria [facility] MRI scanner. COMPARISON: Lumbar spine radiographs, [...] Cervical Spine Wo Contrast (07/16/2025 12:40 PM SAMPLE ROOM SUPERVISOR) Anatomical Region Laterality Modality Pelvis Magnetic Resonan ce 07/16/2025 12:4 8 PM SAMPLE ROOM SUPERVISOR Impressions 07/16/2025 12:53 PM SAMPLE ROOM SUPERVISOR IMPRESSION: 1.The postsurgical changes of prosthetic device [...] 07/16/2025 12:53 PM Narrative 07/16/2025 12:53 PM SAMPLE ROOM SUPERVISOR PROCEDURE: MRI CERVICAL SPINE WO CONTRAST DATE/TIME [...] standard protocol on a 1.0 Rosa Maria [facility] MRI scanner. COMPARISON: CT cervical spine [...] 3VW Exam Date: 05/28/2025 1:05 PM Location: [facility] Indication: M54.50: Lumbar pain Findings/impression: The [...] 3VW Exam Date: 05/28/2025 1:05 PM Location: [facility] Indication: M54.50: Lumbar pain Findings/impression: The [...] (ABNORMAL) COMPREHENSIVE METABOLIC PANEL (09/17/2024 12:09 PM SAMPLE ROOM SUPERVISOR) BUN 17 7 - 26 mg/dL 09/17/2024 1:09 PM SAMPLE ROOM SUPERVISOR [facility] Creatinine 1.03(H) 0.56 - 0.96 mg/dL 09/17/2024 1:09 PM [facility] Sodium 139 136 - 145 mmol/L 09/17/2024 1:09 PM [facility] Potassium 3.9 3.5 - 4.5 mmol/L 09/17/2024 1:09 PM [facility] Chloride 103 98 - 107 mmol/L 09/17/2024 1:09 PM [facility] CO2 24 22 - 29 mmol/L 09/17/2024 1:09 PM [facility] Glucose 98 70 - 99 mg/dL 09/17/2024 1:09 PM [facility] Calcium 9.4 8.4 - 10.2 mg/dL 09/17/2024 1:09 PM [facility] Protein Total 8.2 6.0 - 8.3 g/dL 09/17/2024 1:09 PM [facility] Albumin 4.1 3.4 - 5.0 g/dL 09/17/2024 1:09 PM [facility] Bilirubin Total 0.4 0.2 - 1.2 mg/dL 09/17/2024 1:09 PM [facility] Alkaline Phosphatase 82 40 - 150 U/L 09/17/2024 1:09 PM [facility] ALT 30 5 - 55 U/L 09/17/2024 1:09 PM [facility] AST 32 5 - 34 U/L 09/17/2024 1:09 PM [facility] Anion Gap 12 6 - 16 09/17/2024 1:09 PM [facility] BUN/Creatinine Ratio 17 7 - 23 09/17/2024 1:09 PM [facility] Osmolality Calculated 290 275 - 295 mOsm/kg 09/17/2024 1:09 PM [facility] Albumin/Globulin Ratio 1.0(L) 1.1 - 2.3 09/17/2024 1:09 PM [facility] eGFR by CKD-EPI 64(L) >=90 mL/min/1.7 3 m2 09/17/2024 1:09 PM [facility] Blood BLOOD SPECIMEN / Unknown Lab Venipuncture / Unknown 09/17/2024 12:09 PM [facility] 09/17/2024 12:29 PM SAMPLE ROOM SUPERVISOR us Ev Lowery MD LAB - CHEMISTRY ORDERABLES Fi nal Result Performing Organization Address [facility]/ZIP Co de Phone Number [facility] [address] [place] [address], [facility] [phone] * HIV-1 HIV-2 ANTIBODY + HIV P24 AG PANEL (10/12/2017 4:43 AM SAMPLE ROOM SUPERVISOR) HIV1/2 Ab + P24 Ag Non Reactive Non Reactive 10/12/2017 11:04 AM SAMPLE ROOM SUPERVISOR [facility] Blood BLOOD SPECIMEN / Unknown Venipuncture / Unknown 10/12/2017 4:43 AM SAMPLE ROOM SUPERVISOR 10/12/2017 4:57 AM SAMPLE ROOM SUPERVISOR Narrative [facility] - 10/12/2017 11:04 AM SAMPLE ROOM SUPERVISOR No Laboratory evidence of HIV infection. Singh Moyer MD LAB - CHEMISTRY ORDERAB LES Final Result Performing Organization Address [facility] Co de Phone Number [facility] [address] [place] [address] * HEPATITIS C ANTIBODY (12/27/2015 5:08 PM CDT) Pathologist [facility] Hepatitis C Antibody Non-react [facility] Comment: Hepatitis C Antibody screen indicates no [...] ORDERABLES Fi nal Result Performing Organization Address [facility]/ZIP Co de Phone Number [facility] [address] [place] [address], [facility] [phone] from Last 3 Months or Most Recently Relevant to Health Maintenance Insurance [facility] Advance Directives * Full Code (Latest [...] 8:14 PM 04/27/2022 6:26 PM Care Teams Counseling Psychologist Relationship Specialty [place] [address] [place] [phone] PCP - General 10/22/18 [place] [address] [place] [address] [phone] Orthopedic Surgery 05/22/19 [place] [address] [place] [address] [id number] Medical Oncologist Medical Oncology 11/02/21 Charles Kingston MD [facility] [address] [phone] Senior Technical Architect Cardiology 11/03/21
--- OUTSIDE RECORDS SUMMARY | 2025-08-07 01:07 | XMS_ITS | Encounter Summary ---
Author Organization [facility] Address [address] [place] [address] Care Team Providers Care Heel Packer Name Role Phone Key Tolliver MD Primary Care Provider Reason for Visit * Reason Comments Medication Refill Encounter Details Date Type Department Care Team ([facility] Contact Info) Description 11/20/2021 Refill [facility] PLASTIC SURGERY [id number] [facility] [address] [place] [address] Rodolfo Truong MD [address] [place] [address] Social History Tobacco Use Types Packs/Day Years Used Date Smoking Tobacco: Never Smokeless Tobacco: Never Alcohol Use Standard Drinks/Week Comments No 0 (1 standard drink = 0.6 oz pur e alcohol) Comments No Sex and Gender Information Value Date Recorded Sex Assigned at Not on file Legal Sex Female 1:52 PM [employer]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 Gender Identity Not on file Sexual Orientation Not on file documented as of this encounter Plan of Treatment Upcoming Encounters Date Type Department Care Team (Late Contact Info) Description 12/24/2025 2:15 PM CDT Office Visit [facility] Oncology and Hematology - [place] [address] [place] [address] Evan Willis MD [address] [place] [address] documented as of this encounter Visit Diagnoses Not on filedocumented in this encounter Care Teams Heel Packer Relationship Specialty Start Date End Date Key Tolliver MD [address] [place] [address] PCP - General Internal Medicine 11/05/18 documented as of this encounter
--- OUTSIDE RECORDS SUMMARY | 2025-08-07 01:07 | XMS_ITS | Continuity of Care Document ---
Author Organization [place] [facility], [facility] Mark Mccarthy Address [address] [place] [address] Care Team Providers Care Lease Analyst Name Role Phone REFUGIO AMARO Primary Care Provider REFUGIO AMARO Referring Provider Assessment No assessment recorded. Plan of Treatment Reminders Order Date Submit Date Provider Last Modified By Organization Details Last Modified Time Details Appointments Any 30 026 01:00PM Vinnie Conteh MD Not available Not available Not available Lab None record ed. Referral None record ed. Procedures None record ed. Surgeries None record ed. Imaging None record ed. Medication Orders None record ed. Patient TargetsNo targets recorded. Patient Instructions Encounter Date Encounter Id Patient Instructions Last Modified By Organization Details Last Modified Time 05/14/2025 [id number] we have recommended a bite split but if ths is effective we will send her to a dentist for a custom molded splint [email or web address] Not available 05/14/2025 16:47:06 Reason for Referral None Reported. Problems Name Problem SNOMED Code Status Onset Date Resolution Date Notes Provider Name and Address Organization Details Recorded Time Lupus erythematos us 459893867 Active Vinnie Conteh MD [address], [address], [place], [address], [employer] 5 17:07:42 Osteoarthri tis of knee 792929005 Active Vinnie Conteh MD [address], [address], [place], [address], [employer] 5 17:07:39 Hypertensiv e disorder 33191090 Active Vinnie Conteh MD [address], [address], [place], [address], [employer] 5 17:07:47 Hypothyroid ism 96691660 Active Vinnei Conteh MD [address], [address], [place], [address], [employer] [facility] 5 17:07:45 Trigger finger of right hand 2913766282326 9101 Active 2019 Vinnie Conteh MD [address], [address], [place], [address], [employer] [facility] 5 17:07:35 History of total knee arthroplast y 1202488659738 Active 2019 Vinnie Conteh MD [address], [address], [place], [address], [employer] 5 17:07:50 Trigger finger of left hand 7500431556571 9107 Active 2020 Vinnie Conteh MD [address], [address], [place], [address], [employer] 5 17:07:37 Acquired bilateral pes planus 5158523513831 9109 Active 2021 Vinnie Conteh MD [address], [place] [address], [place], [address], [employer] 5 17:07:56 Urge incontinenc e of urine 14045188 Active 2022 Vinnie Conteh MD [address], [address], [place], [address], [employer] [facility] 5 17:08:10 Gastroesoph ageal reflux disease without esophagitis 191713031 Active 2022 Vinnie Conteh MD [address], [address], [place], [address], [employer] [facility] 5 17:07:54 Mild persistent asthma 165657371 Active 2024 Vinnie Conteh MD [address], [address], [place], [address], [employer] 17:07:41 Pain of right temporomand ibular joint 7510239781783 9107 Active 2024 Julio C Bella MD [address] [facility] [address], [place], [address], [employer] 16:46:36 Notes:Medical History: Depre ssion/Anxiety COVID infection Rhinitis Eosinophils 50/uL Early REM onset Obesity Methacholine (+) mild persistent asthma Mild restrictive airflow impairment Hypothyroidism Hyperlipidemia Hypertension EF 60% NATALIA Hepatic steatosis Granulomatous disease (lung, spleen) Urge urinary incontinence SLE Sepsis 2018 Vit D deficiency Osteoporosis Thoracolumbar DDD Pes planus Bilateral trigger fingers Procedure History: T&A 2000 Appendectomy 2002 Cholecystectomy 2003 ANN 2006 EGD 2010 Colonoscopy 2010 Left MRM for stage IIIB 2013 Right prophylactic mastectomy 2013 Chemotherapy/Radiation therapy 2014 Right total knee arthroplasty 2015 Left total knee arthroplasty 2016 Cardiac catheterization 2016 BSO 2017 Right foot surgery 2018 Left shoulder arthroplasties 2019, 2020 Bilateral breast implants 2020, 2023 Left knee revision 2024 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 Procedures Surgical History Date Name Laterality Status Provider Name and Address Organization Details Recorded Time 10/04/19 25 appendectomy completed Opal White [employer] 02/04/2025 15:14:33 Hysterectomy completed Not Available [facility] 11/01/2022 09:13:16 Rotator cuff surgery completed Not Available [facility] 11/01/2022 09:13:16 Knee Replacement completed Not Available [facility] 11/01/2022 09:13:16 Carpal tunnel surgery completed Not Available [facility] 11/01/2022 09:13:16 excision of bilateral breasts completed Not Available [facility] 09:13:16 Foot Surgery completed Not Available [facility] 11/01/2022 09:13:16 Endoscopy completed Not Available [facility] [address] 11/01/2022 09:13:16 colonoscopy completed Not Available [facility] 11/01/2022 09:13:16 Breast Implants completed Payton fernández MA [employer] 09/24/2024 15:15:52 total shoulder replacement completed Opal White [facility] 02/04/2025 15:15:03 Spinal Fusion completed Opal White [facility] 02/04/2025 15:15:23 tonsillectomy completed Mel Olsen RN [facility] 02/19/2025 14:31:25 Imaging Results None recorded. Procedure Notes None recorded. Medical Equipment None Reported. Allergies Allergen ID Allergen Name Allergen Category Reaction Reaction Severity Criticality Documentation Date Start Date Code Code System Note Provider Name and Address Organization Details Recorded Time 88660 adhesive tape environme nt,medica tion Not available Not available Not available 04/28/2024 ITCHI NG, RED Mel Olsen RN [facility], [facility] 14:32:13 44723 Adhesive agent (substanc e) environme nt,medica tion rash Not available low 07/27/20252016 26808 0007 SNOMED Not Available [employer] 5 08:58:51 49262 hydromorp liane medicatio n itching Not available high 07/27/2025 3423 RxNorm React ion: ITCHI NG Not Available [employer] 5 08:59:44 22767 morphine medicatio n itching Not available high 07/27/2025 7052 RxNorm React ion: ITCHI NG Not Available [employer] 5 08:59:44 Medications Name Sig Start Date [...] administe red by the provider 01/03 completed [facility]: 0003- 0494- 20 Not Available Not [...] Not Available Poly-Iron 150 mg iron capsule 10/17 /2019 completed Not Available Not Available Not Available [...] administe red by the provider 01/03 completed [facility]: 0409- 4276- 17 Not Available Not [...] Not Available Not Available Vitals Date Recorded Body height Body mass index (BMI) Body weight Body temperature Provider Name and Address Organization Details Last Updated DateTime 05/14/2025 165.1 cm 38.3 kg/m2 974356.25 g 97.7 [degF] Mel Olsen RN [place] [facility] [place] [facility] 05/14/2025 16:37:15 Social History Question Answer Notes LastModified by Organizat ion Details LastModified Time Tobacco Smoking Status Never Smoker Not Available [employer] 11/01/2022 09:13:04 Do You Have An Advance Directive? No [id number] Information not available 11/01/2022 What Is Your Level Of Caffeine Consumption? None [id number] 026 Information not available 11/01/2022 In The 14 Days Before Symptom Onset, Have You Had Close Contact With A Laboratory-confirm ed COVID-19 While That Case Was Ill? No [id number] 026 Information not available 11/01/2022 In The 14 Days Before Symptom Onset, Have You Had Close Contact With A Person Who Is Under Investigation For COVID-19 While That Person Was Ill? No [id number] 026 Information not available 11/01/2022 What Type Of Diet Are You Following? REGULAR [id number] 026 Information not available 11/01/2022 Do You [...] available 04/28/2024 What Is Your Relationship Status? [id number] 026 Information not available 11/01/2022 Do You [...] Has Tobacco Cessation Counseling Been Provided? No [id number] 026 Information not available 11/01/2022 Have You Recently Traveled Abroad? No [id number] 026 Information not available 11/01/2022 Sex: Female Functional Status Question Answer Note LastModified by [employer] ion Details LastModified Time Do you use any illicit or recreational drugs? No [id number] 026 Information not available 11/01/2022 Do you or have you ever used any other forms of tobacco or nicotine? No [id number].[id number] 026 Information not available 11/01/2022 What is your level of alcohol consumption? None [id number].[id number] 026 Information not available 11/01/2022 Are you currently employed? No Information not available 04/28/2024 Have you been exposed to chemicals or toxins? No not that aware of [email or web address] Information not available 01/06/2025 What is your exercise level? None [id number].[id number] 026 Information not available 11/01/2022 Mental Status Question Answer Note LastModified by Organization D etails LastModified Time Do you feel stressed (tense, restless, nervous, or anxious, or unable to sleep at night)? [id number] Information not available 04/28/2024 Family History Relationship Description Onset Age of this Age Resolved Age Notes LastModified by Organization Details LastModified Time Maternal Grandmother Heart disease [id number] Not available 11/01/2022 09:13:17 Maternal Aunt Heart disease [id number] Not available 11/01/2022 09:13:17 Father Migraine Not [...] HAVE YOU BEEN HOSPITALIZED OR SEEN IN [facility] ER IN THE PAST YEAR [...] ICD10 Code Diagnosis IMO Codes Diagnosis Note [id number] Julio C Bella MD [facility] [place] [address] [place] [address] 05/14/2025 16:31:42 05/15/2025 08:40:45 Pain of right temporomandibular joint [id number] [id number] M26.621 [id number] Health Concerns Section Related Observation LastModified by Organization Detai ls LastModified Time None Recorded Concern Status LastModified by Organization Details LastModified Time None Recorded Payers Encounter Date Sequence Insurance Name Policy Number Policy Casarez Covered Member ID Casarez Member ID Guarantor Name 05/14/2025 1 [facility] - DOS ON OR AFTER 21 (MEDICAID REPLACEMENT - HMO) Chela Mcnulty [id number] Chela Mcnulty Notes Date Note Type Note Provider Name and Address Organization Details Recorded Time 05/14/2025 text/html the CT scan was normal and the patient continues to report pain with chewing on the right side. Discussed her hearing but she insists that her hearing is normal. Julio C Bella MD [address] [place], [place] [address]s[address], [address], [place], [address], [place] [facility] 05/14/2025 16:47:30 OBGyn Episode No OBEpisode recorded.
--- OUTSIDE RECORDS SUMMARY | 2025-08-07 01:07 | XMS_ITS | Data Portability ---
Author Organization [place] - [employer], Main Office Address [address] [place] [address] Care Team Providers Care Traveling Crane Operator Name Role Phone KEY AMARO Primary Care Provider KEY AMARO Referring Provider Assessment Encounter Date Assessment Date Assessment LastModified by Organization Details LastModified Time 01/06/2025 01/06/2025 Assessment: Mild atelectasis Methacholine (+) mild persistent asthma Mild OSHS, HI = 2 Plan: The following were reviewed and explained to the patient: [facility] diagnostic sleep study 06/24/14 sleep onset = 2.5 minutes, REM onset = 75.5 minutes, AHI = 10, supine AHI = 13, REM AHI = 47, PLMI = 0.0 [facility] titration sleep study 07/13/14 sleep onset [...] were reviewed and explained to the patient: [facility] diagnostic sleep study 06/24/14 sleep onset = 2.5 minutes, REM onset = 75.5 minutes, AHI = 10, supine AHI = 13, REM AHI = 47, PLMI = 0.0 [facility] titration sleep study 07/13/14 sleep onset [...] further management. Follow-up: 6 months, October 2025 [facility] Not available 04/08/2025 15:55:39 Plan of Treatment Reminders Order Date Submit Date Provider Last Modified By Organization Details Last Modified Time Details Appointments Any 30 2025 01:00P Cory Conteh MD Not available Not available Not available Lab None recorded. Referral None recorded. Procedures None recorded. Surgeries None recorded. Imaging XR, tibia + fibula 2024 025 [facility] [place], [address], [place], [address], 02/05/2025 08:21:09 Medication Orders albuterol sulfate HFA 90 mcg/actua tion aerosol inhaler 2024 025 [facility] #[id number], [address] [place], [place], [id number], 04/08/2025 15:47:30 Flovent HFA 110 mcg/actua tion aerosol inhaler 2024 025 [id number] [address], [place], [id number], 04/08/2025 15:47:35 meloxicam 15 mg tablet 2024 025 [facility] #30159, [address], [place], [id number], 04/08/2025 15:09:53 albuterol sulfate HFA 90 mcg/actua tion aerosol inhaler 2024 025 [email or web address] [facility] #08475, [address], [place], [id number], 02/04/2025 15:12:53 Flovent HFA 110 mcg/actua tion aerosol inhaler 2024 025 [facility] #47472, [address], [place], [id number], 01/06/2025 14:29:35 Patient TargetsNo targets recorded. Patient Instructions Encounter Date Encounter Id Patient Instructions Last Modified By Organization Details Last Modified Time 02/19/2025 [id number] we will start wi th a sinus CT. Not available 02/19/2025 14:47:45 04/08/2025 [id number] complete PFT w/ post bronchodilator spirometry* Not available 04/08/2025 15:47:25 05/14/2025 [id number] we have recommended a bite split but [...] fibul a No observ ation record ed. [email or web address] [facility] [place] [address], [place], [address], 02/04/2025 15:17:14 03/05/20 25 03/05/2025 CT, maxil lofac ial, w/o contr ast [facility] [address] [address] [phone] Patien t Name: CHELA SUMNER Access ion #: [id number] Sex: F : 1969 7 Dictat ed By: Ankur butt Attend ing Physic kathi: [facility] D[facility]: TIM EVANS Exam Date: 2024 [...] Ankur butt at 2024 13:49: [address] (Imaging) [address] [place], [address], 03/09/2025 16:07:00 03/05/20 25 03/05/2025 CT, sinus es, w/o contr ast No observ ation record ed. [address] ([employer]) [address] [place], [address], 03/05/2025 16:19:53 03/31/20 25 03/05/2025 CT, sinus es, w/o contr ast No observ ation record ed. [address] ([employer]) [address] [place], [address], 03/31/2025 16:14:00 Result Notes Documentation Provider Name and Address Organization Details Recorded Time Ct, Maxillofacial, W/o Contrast : [facility] [address] [place] [address] Patient Name: CHELA MCNULTY Sex: F : [...] 03/05/2025 13:49 Bert Pascual Mel Olsen RN [facility], [employer] 03/09/2025 16:07:00 Problems Name Problem SNOMED Code Status Onset Date Resolution Date Notes Provider Name and Address Organization Details Recorded Time Lupus erythematos 439027190 Active MD Nicole Nunez [address], [place], [address], [employer] 17:07:42 Osteoarthri tis of knee 848326027 Active Vinnie Conteh MD [address], [place], [address], [employer] 5 17:07:39 Hypertensiv e disorder 20903110 Active MD [address], [place], [address], [employer] 5 17:07:47 Hypothyroid ism 13433080 Active Vinnie Conteh MD [address], [place], [address], [employer] 5 17:07:45 Trigger finger of right hand 0393850323910 9101 Active 2019 MD [address] N[address], [place], [address], [employer] 5 17:07:35 History of total knee arthroplast y 0598182720836 Active 2019 MD Nicole [address], [place], [address], [employer] 5 17:07:50 Trigger finger of left hand 5497329730400 9107 Active 2020 Vinnie Conteh MD [address], [address] [address], [place], [address], [employer] 5 17:07:37 Acquired bilateral pes planus 8955106570008 9109 Active 2021 Vinnie Conteh MD [address], [address] [email or web address], [place], [address], [employer] 5 17:07:56 Urge incontinenc e of urine 22644405 Active 2022 Vinnie Conteh MD [address], [address] [email or web address], [place], [address], [employer] 5 17:08:10 Gastroesoph ageal reflux disease without esophagitis 773202426 Active 2022 Vinnie Conteh MD [address], [address] [address], [place], [address], [employer] 5 17:07:54 Mild persistent asthma 699091144 Active 2024 Vinnie Conteh MD [address], [address] [email or web address], [place], [address], [employer] 5 17:07:41 Pain of right temporomand ibular joint 7422212602906 9107 Active 2024 Tim Bella MD [address], [employer], [place], [address], [employer] 5 16:46:36 Notes:Medical History: Depre ssion/Anxiety COVID [...] Left knee revision 2024 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 Procedures Surgical History Date Name Laterality Status Provider Name and Address Organization Details Recorded Time 10/04/19 appendectomy completed Opal White [facility] [employer] [facility] 02/04/2025 15:14:33 Hysterectomy completed Not Available [facility] 11/01/2022 09:13:16 Rotator cuff surgery completed Not Available [facility] 11/01/2022 09:13:16 Knee Replacement completed Not Available [facility] 11/01/2022 09:13:16 Carpal tunnel surgery completed Not Available [facility] 11/01/2022 09:13:16 excision of bilateral breasts completed Not Available [facility] 09:13:16 Foot Surgery completed Not Available [facility] 11/01/2022 09:13:16 Endoscopy completed Not Available [place] [address] 11/01/2022 09:13:16 colonoscopy completed Not Available [facility] 11/01/2022 09:13:16 Breast Implants completed Payton fernández MA [facility] [employer] [facility] 09/24/2024 15:15:52 total shoulder [facility] [employer] [facility] [facility] 02/04/2025 15:15:03 Spinal Fusion completed Opal White [facility] [employer] [facility] 02/04/2025 15:15:23 tonsillectomy completed Mel Olsen RN [facility] [employer] [facility] 02/19/2025 14:31:25 Imaging Results None recorded. Procedure Notes None recorded. Medical Equipment None Reported. Allergies Allergen ID Allergen Name Allergen Category Reaction Reaction Severity Criticality Documentation Date Start Date Code Code System Note Provider Name and Address Organization Details Recorded Time 13165 adhesive tape environme nt,medica tion Not available Not available Not available 04/28/2024 ITCHI NG, RED Mel Olsen RN [facility] [employer] [facility] 14:32:13 02386 Adhesive agent (substanc e) environme nt,medica tion rash Not available low 07/27/20252016 14939 0007 SNOMED Not Available [facility] - External Data [employer] - prod 5 08:58:51 25523 [employer] liane medicatio n itching Not available high 07/27/2025 3423 RxNorm React ion: ITCHI NG Not Available [facility] - External Data Service - prod 5 08:59:44 19849 morphine medicatio n itching Not available high 07/27/2025 7052 RxNorm React ion: ITCHI NG Not Available [facility] - External Data Service - prod 5 [...] administe red by the provider 01/03 completed [facility]: 0003- 0494- 20 Not Available Not Available [...] administe red by the provider 01/03 completed [facility]: 0409- 4276- 17 Not Available Not Available [...] Conteh MD [address], [address], [place], [address], [facility] [employer] [facility] 01/06/2025 14:20:35 Date Recorded Body height Body mass index (BMI) Body weight Body temperature Oxygen saturation Systolic And Diastolic Provider Name and Address Organization Details Last Updated DateTime 165.1 cm 38.1 kg/m2 945632. 65 g 98.5 [degF] 96 % 138/82 mm[Hg] Janet Zimmer MA [facility] [employer] [facility] 14:10:00 Date Recorded Body height Body mass index (BMI) Body weight Provider Name and Address Organization Details Last Updated DateTime 02/04/2025 165.1 cm 38.3 kg/m2 998685.25 g Opal White [facility] [employer] [facility] 02/04/2025 15:11:41 Date Recorded Body height Body mass index (BMI) Body weight Body temperature Provider Name and Address Organization Details Last Updated DateTime 02/19/2025 165.1 cm 38.6 kg/m2 115505.43 g 98 [degF] Mel Olsen RN [facility] [employer] [facility] 02/19/2025 14:36:46 Date Recorded Heart rate Respiratory rate Provider N josette and Address Organization Details Last Updated DateTime 04/08/2025 77 /min 14 /min Vinnie Conteh MD [address], [address], [place], [address], [facility] 04/08/2025 15:55:15 Date Recorded Body height Body mass index (BMI) Body weight Body temperature Heart rate Oxygen saturation Systolic And Diastolic Provider Name and Address Organization Details Last Updated DateTime 165.1 cm 38.8 kg/m2 803938. 02 g 98 [degF] 77 /min 96 % 124/82 mm[Hg] Payton Bryson MA [facility] 15:14:26 Date Recorded Body height Body mass index (BMI) Body weight Body temperature Provider Name and Address Organization Details Last Updated DateTime 05/14/2025 165.1 cm 38.3 kg/m2 497211.25 g 97.7 [degF] Mel Olsen RN [facility] 05/14/2025 16:37:15 Social History Question Answer Notes LastModified by Organizat ion Details LastModified Time Tobacco Smoking Status Never Smoker Not Available [facility] 11/01/2022 09:13:04 Do You Have An Advance Directive? No [id number] Information not available 11/01/2022 What Is Your Level Of Caffeine Consumption? None [id number] 026 Information not available 11/01/2022 In The 14 Days Before Symptom Onset, Have You Had Close Contact With A Laboratory-confirm ed COVID-19 While That Case Was Ill? No [id number].[id number] 026 Information not available 11/01/2022 In The 14 Days Before Symptom Onset, Have You Had Close Contact With A Person Who Is Under Investigation For COVID-19 While That Person Was Ill? No [id number] 026 Information not available 11/01/2022 What Type Of Diet Are You Following? REGULAR [id number].[id number] 026 Information not available 11/01/2022 Do You [...] available 04/28/2024 What Is Your Relationship Status? MIGRATION.[id number] 026 Information not available 11/01/2022 Do You [...] Has Tobacco Cessation Counseling Been Provided? No [id number] 026 Information not available 11/01/2022 Have You Recently Traveled Abroad? No MIGRATION.[id number] 026 Information not available 11/01/2022 Sex: Female Functional Status Question Answer Note LastModified by Organizat ion Details LastModified Time Do you use any illicit or recreational drugs? No [id number] 026 Information not available 11/01/2022 Do you or have you ever used any other forms of tobacco or nicotine? No MIGRATION.[id number] 026 Information not available 11/01/2022 What is your level of alcohol consumption? None MIGRATION.4513946 026 Information not available 11/01/2022 Are you currently employed? No Information not available 04/28/2024 Have you been exposed to chemicals or toxins? No not that aware of [email or web address] Information not available 01/06/2025 What is your exercise level? None MIGRATION.[id number] 026 Information not available 11/01/2022 Mental Status Question Answer Note LastModified by Organization D etails LastModified Time Do you feel stressed (tense, restless, nervous, or anxious, or unable to sleep at night)? [id number] Information not available 04/28/2024 Family History Relationship Description Onset Age of this Age Resolved Age Notes LastModified by Organization Details LastModified Time Maternal Grandmother Heart disease [id number] [id number] Not available 11/01/2022 09:13:17 Maternal Aunt Heart disease [id number] Not available 11/01/2022 09:13:17 Father Migraine Not [...] HAVE YOU BEEN HOSPITALIZED OR SEEN IN [facility] IN THE PAST YEAR ? N [...] ICD10 Code Diagnosis IMO Codes Diagnosis Note [id number] Ankur Espinal MD [facility] [place] [address] [place] [address] 01/25/2021 00:00:00 01/25/2021 16:40:12 [id number] Ankur Espinal MD [facility] [place] [address] [place] [address] 04/05/2021 00:00:00 04/05/2021 14:39:42 [id number] Ankur Espinal MD [facility] [place] [address] [place] [address] 04/12/2021 00:00:00 04/12/2021 15:46:41 [id number] Ankur Espinal MD [facility] [place] [address] [place] [address] 04/19/2021 00:00:00 04/19/2021 14:45:42 [id number] Ankur Espinal MD [facility] [place] [address] [place] [address] 05/17/2021 00:00:00 05/31/2021 09:08:02 [id number] _ATHN_MIGR ATION_1 _ATHENA_M IGRATION_ DEFAULT_1 _1 , 06/15/2021 00:00:00 06/15/2021 15:14:16 [id number] Ankur Espinal MD [facility] [place] [address] [place] [address] 06/21/2021 00:00:00 06/21/2021 14:32:55 [id number] Ankur Espinal MD [facility] [place] [address] [place] [address] 08/02/2021 00:00:00 08/08/2021 14:20:31 [id number] Ankur Espinal MD [facility] [place] [address] [place] [address] 09/15/2021 00:00:00 09/15/2021 14:30:27 [id number] Ankur Espinal MD [facility] [place] [address] [place] [address] 11/17/2021 00:00:00 11/17/2021 15:28:48 [id number] [facility] [place] [address] [place] [address] 12/01/2021 00:00:00 12/01/2021 18:07:39 [id number] Ankur Espinal MD [facility] [place] [address] [place] [address] 01/03/2022 00:00:00 01/03/2022 17:30:11 [id number] [facility] [place] [address] [place] [address] 01/26/2022 00:00:00 01/27/2022 07:31:45 [id number] [facility] [place] [address] [place] [address] 02/02/2022 00:00:00 02/03/2022 09:58:36 [id number] [facility] [place] [address] [place] [address] 03/23/2022 00:00:00 03/24/2022 10:00:09 [id number] Ankur Espinal MD [facility] [place] [address] [place] [address] 04/04/2022 00:00:00 04/04/2022 15:46:20 [id number] Ankur Espinal MD [facility] [place] [address] [place] [address] 06/29/2022 00:00:00 06/29/2022 13:11:09 [id number] [facility] [place] [address] [place] [address] 09/07/2022 00:00:00 09/07/2022 14:14:38 [id number] [facility] [place] [address] [place] [address] 11/02/2022 14:09:04 11/02/2022 15:07:21 Low back pain 585444753 M54.50 Mechanical complication of implant 530199793 T85.698D Knee joint painful on movement 540089997 M25.569 Spinal hernan nosis of lumbar region 62108682 M48.061 History of left total knee replacement 4371048015 745979 Z96.652 History of right total knee replacement 9250401329 005270 Z96.651 Pain of ri ght shoulder joint 6926880399 5257368 M25.511 Tendinitis of right rotator cuff 7133647049 7860633 M67.813 [id number] Scott Lucas MD [facility] [address] [facility] [address] [place] [address] 12/11/2022 14:05:05 12/11/2022 14:38:46 Urge incontinence of urine 97384158 N39.41 Negative ua, low residual, went over options, will try Gemtesa 75 mg a day. [id number] Henna Wilson MD [facility] General Surgery [address] [place] [address] 03/14/2023 15:49:07 04/04/2023 13:12:05 Gastroesophageal reflux disease without esophagitis 867540303 K21.9 [id number] Ankur Espinal MD [facility] [place] [address] [place] [address] 03/29/2023 13:07:35 03/29/2023 13:36:11 Low back pain 439333489 M54.50 History of bilateral total knee replacement 5443301326 803344 Z96.653 Bilateral sacroiliac joint pain 2156436708 4579339 M53.3 [id number] Henna Wilson MD [facility] General Surgery [address] [place] [address] 05/16/2023 15:06:28 05/16/2023 15:28:25 Gastroesophageal reflux disease without esophagitis 170859675 K21.9 [id number] Ankur [address]inal [address] [facility] [place] [address] [place] [address] 05/17/2023 13:06:34 05/17/2023 14:32:54 Pain of right knee joint 4190138486 09210 M25.561 History of bilateral total knee replacement 8185212507 506051 Z96.653 History of right total knee replacement 7476528443 150838 Z96.651 Mechanical complication of implant 987555416 T85.698A T84.039A [id number] Ankur Espinal MD [facility] [place] [address] [place] [address] 05/22/2023 14:43:07 05/22/2023 15:21:27 History of total knee arthroplasty 7960767163 105 Z96.882 [id number] Henna Wilson MD [facility] Surgery [address] [place] [address] 02/06/2024 14:11:19 02/06/2024 14:44:49 Gastroesophageal reflux disease without esophagitis 017629925 K21.9 [id number] Vinnie Conteh MD [address] [address] 04/28/2024 10:17:28 04/29/2024 08:48:30 Dyspnea on exertion 84478324 R06.09 R05.9 T78.40XA D89.9 C50.912 J43.9 [id number] Vinnie Conteh [address] [facility] [address] [address] 06/25/2024 10:05:36 06/25/2024 12:53:26 Mild intermittent asthma 115748704 J45.20 [id number] Vinnie Conteh MD [facility] [address] [place] [address] 09/24/2024 15:04:24 09/29/2024 14:54:32 Mild persistent asthma 590035721 J45.30 [id number] Vinnie Conteh MD [facility] [address] [place] [address] 10/07/2024 11:33:54 10/07/2024 14:07:21 Mild persistent asthma 643447911 J45.30 [id number] Henna Wilson MD [facility] General Surgery [address] [place] [address] 10/22/2024 12:27:09 10/22/2024 12:56:20 Gastroesophageal reflux disease without esophagitis 848304503 K21.9 Liver enzy mes level above reference range 935509278 R74.01 Epigastric pain 84327001 R10.13 [id number] Henna Wilson MD [facility] General Surgery [address] [place] [address] 11/05/2024 15:28:46 11/05/2024 16:20:13 Gastroesophageal reflux disease without esophagitis 897593609 K21.9 Liver enzy mes level above reference range 379081925 R74.01 Epigastric pain 62154800 R10.13 OUT OF PROPORTION WITH EXAM. [id number] Vinnie Conteh MD [facility] [address] [place] [address] 01/06/2025 13:57:27 01/06/2025 14:40:37 Mild persistent asthma 825860898 J45.30 [id number] Yadiel Guzman MD [facility] [place] [address] [place] [address] 02/04/2025 14:57:59 02/04/2025 16:01:27 Pain of right lower leg 1436209636 19532 M79.245 [id number] Tim Bella MD [facility] [place] [address] [place] [address] 02/19/2025 14:21:47 02/20/2025 07:58:13 Chronic sinusitis 59167451 J32.9 134149428 [id number] Vinnie Conteh MD [facility] Pulmonolo gy [place] [address] [employer] [address] [place] [address] 04/08/2025 14:56:06 04/08/2025 18:27:16 Mild persistent asthma 381957717 J45.30 [id number] Tim Bella MD [facility] [place] [address] [place] [address] 05/14/2025 16:31:42 05/15/2025 08:40:45 Pain of right temporomandibular joint 7789424099 0830931 M26.621 [id number] Health Concerns Section Related Observation LastModified by Organization Detai ls LastModified Time None Recorded Concern Status LastModified by Organization Details LastModified Time None Recorded Advance Directives Directive N: Payers Insurance Date Sequence Insurance Name Policy Number Policy Casarez Covered Member ID Casarez Member ID Guarantor Name 07/01/2025 1 [facility] ON OR AFTER 03/03/21 (MEDICAID REPLACEMENT - HMO) Chela Mcnulty [id number] Chela Mcnulty Notes Date Note Type Note [...] staircase, wipingAlleviating factors: rest Modified [employer] [place] (mMRC) Dyspnea Scale - Grade 2Grade 0 [...] Conteh MD [address], [address], [place], [address], [facility] [employer] [facility] 01/06/2025 14:34:38 02/19/2025 text/html this patient reports a history of sinus surgery in 1999. Currently she has sinus congestion and facial pressure. This is mostly on the right side. She also has headaches. She has had some right ear pain as well. This has been going on for over a year Tim Bella MD [address], [address], [place], [address], [facility] [employer] [facility] 02/19/2025 14:48:14 04/08/2025 text/html Primary care/Referring [...] staircase, wipingAlleviating factors: rest Modified [employer] [place] (mMRC) Dyspnea Scale - Grade 2Grade 0 [...] HFA 44 mcg 2 puffs BID 09/2024-01/2025Flovent QQA592 mcg 2 puffs BID since 01/2025 Other [...] dozing. Vinnie Conteh MD [address] [place] [address] [address], [place], [address], [employer] 04/08/2025 15:56:30 05/14/2025 text/html the CT scan was normal and the patient continues to report pain with chewing on the right side. Discussed her hearing but she insists that her hearing is normal. Tim Bella MD [address], [facility] [address], [place], [address], [employer] 05/14/2025 16:47:30 OBGyn Episode No OBEpisode recorded.
--- OUTSIDE RECORDS SUMMARY | 2025-08-07 01:07 | XMS_ITS | Encounter Summary ---
Author Organization [facility] Address [address] [place] [address] Care Team Providers Care Grocery Store Manager Name Role Phone Key Tolliver MD Primary Care Provider [phone] Reason for Visit * Reason Comments Medication Refill Encounter Details Date Type Department Care Team ([facility] Contact Info) Description 11/05/2019 Refill [facility] Plastic Surgery and Burn [address] [address] Rodolfo Truong MD [address] [facility] [address] [place] [address] Social History Tobacco Use Types Packs/Day Years Used Date Smoking Tobacco: Never Smokeless Tobacco: Never Alcohol Use Standard Drinks/Week Comments No 0 (1 standard drink = 0.6 oz pur e alcohol) Comments No Sex and Gender Information Value Date Recorded Sex Assigned at Not on file 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 [address] [place] [address] Evan Willis MD [address] [facility] [address] [place] [address] documented as of this encounter Visit Diagnoses Not on filedocumented in this encounter Care Teams Grocery Store Manager Relationship Specialty Start Date End Date Key Tolliver MD [address] [place] [address] PCP - General Internal Medicine 11/05/18 documented as of this encounter
--- OUTSIDE RECORDS SUMMARY | 2025-08-07 01:07 | XMS_ITS | Patient Health Record ---
Author Organization [facility] As [employer] Address [address] [facility] [address] [place] [address] Care Team Providers Care Yard Rigger Name Role Phone Kate Burgos Unavailable [phone] Reason For Referral No Information Medications Medication [...] ML (15 ML) ORAL SOLUTION *Reorder from 5to1 for eRx and Interaction Alerts* Active Dicyclomine HCl 20 MG Tablet Oral Active SEROquel 100 MG Tablet Oral Active Ferrous Sulfate 325 (65 Fe) MG Tablet Oral Active Plan Of Treatment No Information
--- OUTSIDE RECORDS SUMMARY | 2025-08-07 01:07 | XMS_ITS | Clinical Summary ---
Author Organization [facility] Address [address] [place] [address] Care Team Providers Care District Branch Manager Name Role Phone Key Tolliver MD [...] CDT - 06/11/2025 4:42 PM CDT Emergency [facility] Emergency Department [address] [place] [address] Fall, 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Primary Dx); Acute right-sided low back pain with right-sided sciatica; Sprain of left ankle, unspecified ligament, initial encounter Discharge Disposition: Discharge to home or self care 06/09/2025 Results Follow-Up [facility] Neurology [address] [facility] [address] [place] [phone] Peggy Reid MA EEG 06/08/2025 2:28 PM CDT - 06/08/2025 11:59 PM CDT Hospital Encounter [facility] MRI [address] [place] [address] Altered mental status, unspecified altered mental status type Discharge Disposition: Discharge to home or self care 06/08/2025 1:13 PM CDT - 06/08/2025 11:59 PM CDT Hospital Encounter [facility] Cardiac Testing [address] [place] [address] Altered mental status, unspecified altered mental status type Discharge Disposition: Discharge to home or self care 05/27/2025 Telephone [facility] Neurology [address] [place] [phone] Linden Walter Si, MD Scheduling Appointments (CALL SCHEDULING ) 05/26/2025 1:30 PM CDT Office Visit [facility] Neurology [address] [place] [phone] Linden Walter Si, MD Altered mental status, unspecified altered mental status type (Primary Dx); Stuttering 05/14/2025 2:33 PM CDT - 05/14/2025 11:59 PM CDT Hospital Encounter [facility] [address] [place] [phone] Discharge Disposition: Discharge to home or self care 05/14/2025 2:33 PM CDT - 05/14/2025 11:59 PM CDT Hospital Encounter [facility] [address] [place] [phone] Discharge Disposition: Discharge to home or self care 05/14/2025 2:00 PM CDT Office Visit [facility] Orthopedics and Sports Medicine at [address] [phone] Jace Muller MD Pain in left foot [...] on file Legal 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 WILY: WILY Report ID: [id number] Reading Location: [place] [address] Procedure Note Naveen Dash MD - 06/11/2025 [...] Naveen Dash M.D. WILY: WILY Report ID: [id number] Reading Location: [id number] Rashawn Cloud NP IMG CT PROCEDURES Final [...] Jose Chan M.D. KR: JAKE Report ID: [id number] Reading Location: [id number] Procedure Note Jose Chan MD - 06/11/2025 [...] Jose Chan M.D. KR: JAKE Report ID: [id number] Reading Location: [id number] Rashawn Cloud NP IMG XR PROCEDURES Final [...] by Rodolfo Tapia M.D. T: Report ID: [id number] Reading Location: [id number] Procedure Note Rodolfo Tapia, DO - 06/08/2025 EXAM DESCRIPTION: MRI BRAIN WO CONTRAST REASON FOR STUDY: Mental status change, unknown cause Pt is having episodes of dementia and acting like she is a child for pastfew months. PT doesn't recall episodes. They are per her daughter TECHNIQUE: Multiplanar imaging includes non-contrasted T1, T2, FLAIR, and diffusion with ADC map sequences. Additional sequence(s) sensitive [employer]. Images stored on PACS. COMPARISON: None available. [...] by Rodolfo Tapia M.D. T: Report ID: [id number] Reading Location: [id number] Linden Walter MD IM MRI PROCEDURES Final [...] agrees with it. ACC# Date Time Exam [id number] May 07, 2013 13:59:00 [facility] [id number] Bilateral Tomosynthesis Technologist(s): Ashley Batista; ; [id number] May 07, 2013 13:59:00 [facility] [id number] Diag Mammogram Bilateral Technologist(s): Ashley Batista; ; [id number] May 07, 2013 14:24:00 [facility] [id number] Sono Breast (Unilateral) L EXAMINATION: BILATERAL FULL [...] diagnostic mammogram and accompanying ultrasound performed at [facility] breast [place] on 04/28/2013. BREAST PARENCHYMAL COMPOSITION: Heterogeneously dense, [...] has been scheduled to return to the [facility] for an ultrasound-guided core needle biopsy [...] agrees with it. ACC# Date Time Exam [id number] May 07, 2013 13:59:00 [facility] [id number] Bilateral Tomosynthesis Technologist(s): Ashley Batista; ; [id number] May 07, 2013 13:59:00 [facility] [id number] Diag Mammogram Bilateral Technologist(s): Ashley Batista; ; [id number] May 07, 2013 14:24:00 [facility] [id number] Sono Breast (Unilateral) L EXAMINATION: BILATERAL FULL [...] diagnostic mammogram and accompanying ultrasound performed at [facility] [place], operated by [facility] on 04/28/2013. BREAST PARENCHYMAL COMPOSITION: Heterogeneously dense, [...] has been scheduled to return to the [facility] for an ultrasound-guided core needle biopsy [...] CDT PROCEDURE REPORT Patient: CHELA MCNULTY Account: [id number] Room No: 2619-01 : 1970 Patient Type: [...] Maintenance Insurance [facility] Care Teams District Branch Manager Relationship Specialty Start Date End Date Key Tolliver MD [address] [place] [address] PCP - General Internal Medicine 12/08/24
--- OUTSIDE RECORDS SUMMARY | 2025-08-07 01:07 | XMS_ITS | Encounter Summary ---
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
--- OUTSIDE RECORDS SUMMARY | 2025-08-07 01:07 | XMS_ITS | Encounter Summary ---
Author Organization [facility] Address [address] [place] [address] Care Team Providers Care Machine Leather Trimmer Name Role Phone Key Tolliver MD Primary Care Provider Pablo Liriano MD Unavailable [phone] Evan Willis MD Unavailable [phone] Charles Kingston MD Unavailable Reason for Visit * Reason Comments Refill Request Encounter Details Date Type Department Care Team (Late st Contact Info) Description 06/27/2025 Refill [facility] - Orthopedic Surgery [address] [place] [phone] Latrice Salinas MD [address] [facility] [place] [address] Refill Request Social History Tobacco [...] on file Legal Sex Female 11:46 AM CURRICULUM COORDINATOR Gender Identity Not on file Sexual [...] (Latest Contact Info) Description 09/09/2025 11:15 AM CURRICULUM COORDINATOR Office Visit [facility] - Orthopedics [address] [facility], [facility] [place] [address] Yandel Petersen MD [address] [place] [address] 10/14/2025 7:20 AM CURRICULUM COORDINATOR Hospital Encounter [facility] [place] Op [address] [address] Mariano Guzmán MD [address] [place] [address] Surgery General 10/14/2025 7:20 AM CURRICULUM COORDINATOR - 10/14/2025 9:08 AM CURRICULUM COORDINATOR Surgery [facility] [place] Op [address] [address] Mariano Guzmán MD [address] [place] [address] ARTHROSCOPY SHOULDER BICEP TENODESIS, DEBRIDEMENT 10/22/2025 2:40 PM CURRICULUM COORDINATOR Office Visit [facility] - Orthopedic Surgery [address] [place] [phone] Mariano Guzmán MD [address] [place] [address] 03/11/2026 2:00 PM CDT Office [facility] [address] [place] [address], [facility] [place] [phone] Ev Lowery MD [address] [place] [address] [place] [phone] Scheduled Procedures Name Priority Associated Diagnoses Date/Ti me ARTHROSCOPY SHOULDER BICEP TENODESIS Chronic pain in right shoulder Biceps tendinitis of right shoulder 10/14/2025 7:20 AM CURRICULUM COORDINATOR documented as of this encounter Goals Goal Patient Goal Type Associated Problems Recent Progress Patient-Stated? Author Mobility General Improving( 1:50 PM CDT) Coreen Rider, RN Note: Expected end date: 12/01/2020 The goal is to maintain or improve your mobility at the optimum level for you. Interventions: Mobility General Worsening( 1:20 PM CURRICULUM COORDINATOR) Lilo Xiong, DARRON Note: Expected end date: [...] shoulder documented in this encounter Care Teams Machine Leather Trimmer Relationship Specialty [place] [address] [place] [phone] PCP - General 10/22/18 Pablo Liriano MD [address] [place] [phone] Orthopedic Surgery 05/22/19 Evan Willis MD [address] [place] [phone] Medical Oncologist Medical Oncology 11/02/21 Charles Kingston MD [address] [place] [phone] Conference Planner Cardiology 11/03/21 documented as of this encounter
--- NOTE | 2025-08-07 06:57 | P.OP_ITS ---
Procedure Note - Detailed Date of Procedure 08/07/25 Pre-op Diagnosis hx of sathya breast cancer, acquired absence bilateral breasts Post-op Diagnosis Same Procedure Performed bilateral capsulotomy/capsulorrhaphy and breast implant exchange Surgeon Jose Antonio Sal MD Night Custodian mayra johnston pa-c Anesthesia General Description of Procedure Patient was seen in the preoperative holding area where the consent form was signed in the breasts were marked with the patient in the seated position. Patient was taken back to the operating room and placed on the table in the supine position. Time-out was performed with Anesthesia, surgeon, and staff agreeing on patient's name, site, and surgery to be performed. SCDs were placed on the lower extremities inflated. Antibiotics were given IV. After general anesthesia was administered the breasts were prepped and draped in the usual sterile fashion. I turned my attention 1st to the right breast where I used a 15 blade scalpel to make an elliptical incision around portion of her previous right breast scar through skin and dermis with 15 blade scalpel. Bovie cautery was used to resect this scarred tissue which was sent to pathology and dissection through subcutaneous tissue until reaching implant capsule. I used Bovie cautery to dissect along the capsule superiorly to help prevent direct applying scar incision. I then used Bovie cautery to enter the capsule and removed the intact right breast implant. It was noted that this was an Allergan SSX-750 cc implant which was significantly larger than the stated implant patient had noted preoperatively. The implant appeared intact and the capsule appeared clean in appearance though significant areas of redundancy were appreciated. Irrigated with antibiotic irrigation. I provisionally placed a 545 cc Sizer in the right breast pocket to evaluate the capsule and determined markings for capsulorrhaphy. The Sizer was removed and then using Bovie cautery I resected areas of redundant capsule medially and superolaterally to allow for capsulorrhaphy with multiple 3-0 Ethibond sutures. The Sizer was again placed noting improvement in capsular pocket and positioning appeared to improve significantly the patient's midline as it was noted there was near complete connection to the left breast reconstruction pocket. The Sizer was removed I irrigated with antibiotic irrigation and hemostasis was obtained with Bovie cautery. The skin was prepped with Betadine new towels were placed we changed our gloves and rinsed our instruments in antibiotic irrigation and I proceeded with taking a new Natrelle SCX-545 implant serial number [id number] directly from the package after rinsing in antibiotic irrigation and placed in the right breast pocket in appropriate orientation. Closure was then performed with 3-0 Vicryl for deep dermal closure 4-0 Monocryl for subcuticular closure. Next I turned my attention to the left breast where I proceeded with making an elliptical incision around the hypertrophic left breast medial scar above for latissimus muscle flap pedicle through skin and dermis with 15 blade scalpel. Bovie cautery was used to resect this thickened scar tissue. Bovie cautery was then used to dissect through subcutaneous tissue down to muscle which appeared to be remainder latissimus and I would dissected superiorly until I encountered what appeared to be consistent with the pectoralis major and latissimus flap junction. Bovie cautery was used to dissect in this interval identifying the capsule underneath. I entered the left breast capsule and removed the left breast intact silicone implant which again was different than reported preoperatively by the patient and was a new Viewbixan SS F 745 cc implant. The pocket was inspected and appeared healthy with certain areas of redundancy and stretching. The 545 cc Sizer was then placed and areas for capsulorrhaphy were marked. Further capsulotomy was performed though not as necessary to resect on this left side. 3-0 Ethibond sutures were placed for capsulorrhaphy sutures to improve pocket positioning. The Sizer was again placed and this appeared to be reasonably symmetric with improved symmetry and cosmesis to the right breast. The Sizer was removed and I irrigated the pocket with antibiotic irrigation. Hemostasis was obtained with Bovie cautery. Skin flaps were prepped with Betadine and new towels were placed down we changed our gloves and rinsed our instruments and antibiotic irrigation. Next I proceeded with taking another Natrelle SCX-545 implant serial [id number] directly from the package after rinsing it in antibiotic irrigation and placed in the left breast pocket in appropriate orientation. Latissimus was repaired to the Berrios and capsule with 3-0 Vicryl suture. 3-0 Vicryl for deep and dermal closure was performed. 4-0 Monocryl was used for subcuticular closure. There was improved and reasonable symmetry to the both breasts with viable skin flaps with good cap refill. Next I injected 20 cc of 1% lidocaine with epinephrine and 0.5% Marcaine plain along the incision and anterior axillary line of each breast. A dressing of Mastisol, Steri-Strips, 4 x 4, Tegaderm, ABDs and a surgical bra was then applied. The patient was awakened from anesthesia and transferred to the recovery room in stable condition. Complications: None Estimated blood loss: 20 cc Disposition: Patient tolerated the procedure well and will go home later today Mayra Johnston PA-C was essential for positioning, retraction, closure and dressing placement. [facility] Billing Surgery - Charge Forward: Surgery Billing ([id number],59 same for mayra adding )
--- NOTE | 2025-08-07 06:57 | WPDHPUPDATE1 ---
History and Physical Update Update Date/Time: 08/07/25 06:57 Patient seen and examined in pre-operative holding area. No interval change in medical history or symptoms. Patient remembers previous discussion of benefits and alternatives to procedure. Continues to desire to proceed with bilateral breast implant exchange with capsulectomy . I reviewed the risks including but not limited to bleeding ,infection, asymmetry, undesireable cosmetic appearance, partial/total skin loss, no change or worsening of symptoms, change in sensation, device failure, capsular contracture. I discussed the possible use of assistants and their level of participation in the case. Patient stated understanding and signed the consent form wishing to proceed
--- NOTE | 2025-08-07 10:18 | ECG_ITS ---
Test Date: 2025-08-07 10:39:21 Measurements Intervals [place] Rate: 75 P: 56 CA: 182 QRS: -12 QRSD: 99 T: 41 QT: 401 QTc: 449 Interpretive Statements SINUS RHYTHM POSSIBLE LEFT ATRIAL ENLARGEMENT POSSIBLE LEFT VENTRICULAR HYPERTROPHY CANNOT R/O SEPTAL INFARCT, AGE INDETERMINATE BORDERLINE T WAVE ABNORMALITY- ANTERIOR LEADS ABNORMAL ECG No previous ECG available for comparison Electronically Signed On 08-07-2025 10:45:29 LEVELING MACHINE OPERATOR by Scottie Montgomery D.O.
[2025-08-07] MEDS: ACETAMINOPHEN 500 MG TABLET 1000 MG PO (10:55)
[2025-08-07] MEDS: LACTATED RINGERS 1,000 ML 30 ML IV CONT ×2 (10:55→14:08)
--- NOTE | 2025-08-07 10:57 | WPDANESEPPF ---
Anes - Initial Pre Proc Eval Procedure: Operation Date: 08/07/25 12:15 Proposed Procedures p Bilateral Breast Implant Exchange with Capsulectomy - Jose Antonio Sal MD Date/Time: 08/07/25 10:57 Surgeon: Jose Antonio Sal MD Pre Op Diagnosis: hx of sathya breast cancer Patient Data Age: 55 Gender: F Height: 1.65 m Weight: 100 kg Allergies Allergy/AdvReac Type Severity Reaction Status Date / Time meperidine AdvReac Severe HEADACHE Verified 07/29/25 17:43 scopolamine AdvReac Severe Headache Verified 07/29/25 17:43 adhesive tape AdvReac Unknown Rash, Verified 07/29/25 17:43 REDNESS, BURNING silver (From Tegaderm AG AdvReac BLISTER/REDNESS Verified 07/29/25 17:43 Mesh) AT SITE Home Medications ?Medication ?Instructions ?Recorded ?Confirmed ?Type venlafaxine 225 mg tablet,extended 225 mg PO QAM 10/13/19 07/28/25 History release 24 hr famotidine 20 mg tablet 20 mg PO QAM 10/11/23 07/28/25 History nifedipine 30 mg tablet,extended 90 mg PO QAM 10/11/23 07/28/25 History release albuterol sulfate 90 mcg/actuation 2 puff inhalation Q4-6H PRN 09/16/24 07/28/25 History aerosol inhaler shortness of breath or wheezing omeprazole 40 mg capsule,delayed 40 mg PO QAM 09/16/24 07/28/25 History release losartan 25 mg tablet 25 mg PO DAILY 07/28/25 07/28/25 History metoprolol succinate 100 mg 100 mg PO DAILY 07/28/25 07/28/25 History tablet,extended release 24 hr trazodone 150 mg tablet 150 mg PO QHS 07/28/25 07/28/25 History ondansetron 4 mg disintegrating 4 mg PO Q8H PRN nausea and 07/29/25 Rx tablet vomiting #20 tabs polyethylene glycol 3350 17 17 g PO DAILY #238 grams 07/29/25 Rx gram/dose oral powder (ClearLax) sodium phosphates 19 gram-7 197 ml RECTAL ONCE #532 mL 07/29/25 Rx gram/118 mL enema (Fleet Enema) cephalexin 500 mg capsule 500 mg PO Q12H #14 caps 08/07/25 Rx hydrocodone 5 mg-acetaminophen 325 1 tablet PO Q4-6H PRN pain #16 tabs 08/07/25 Rx mg tablet Patient hx anesthesia problems: none Family hx anesthesia problems: none Results Review: All pre-operative results and documents have been reviewed as part of the pre-operative evaluation. [facility] Past Medical History Medical History History of breast cancer s/p bilateral mastectomy, chemo, radiation Hypothyroidism, unspecified hx of, no longer on medications Hearing loss Gastroesophageal reflux disease History of revision of total replacement of right knee joint Systemic lupus erythematosus Eczema Pancreatitis COPD (chronic obstructive pulmonary disease) Asthma Migraines Iron deficiency anemia History of blood transfusion. Hypertension Depression Sepsis Surgical History Surgical History History of knee replacement procedure of right knee History of knee surgery 11/08/23- Rev right TKA History of hysterectomy History of repair of right rotator cuff Status post trigger finger release History of fusion of cervical spine Status post transverse rectus abdominis muscle flap breast reconstruction History of endoscopic sinus surgery History of bilateral mastectomy History of appendectomy History of cholecystectomy History of carpal tunnel release Port-A-Cath in place Family History Family History Other Family history of malignant neoplasm Hypertension Social History Social History Social History: Surrogate medical decision maker: Domingo Mcnulty, spouse. Code status: Full code. Smoking status: Never smoker Second hand tobacco smoke exposure: No Additional smoking assessment comments: chewed tobacco occassionally as a teen Alcohol intake: never Substance use: never Substance use type: does not use Lack of Transportation: No Lack of Food: Never True Current Housing: I Have Housing Concerned About Future Housing: No Difficulty Paying Gas/Electric Bills: No Difficulty Paying for Meds: No Currently Unemployed: No Education: Decline to Answer Difficulty w/ Childcare or Family Care: No Living arrangements: with family Additional living arrangements comments: [facility]USB Occupation/Education: unemployed Spiritual care concerns: No Anes - Eval Final PreProcedure Day of Procedure 08/07/25 10:57 Patient weight: obese Heart: regular rate and rhythm Lungs: clear to auscultation Airway: Mallampati scale class III Neurological: alert and oriented Last oral intake: >/= 8 hours ASA classification: III Emergent: no Anesthetic plan: proceed Anesthesia type and monitoring: general LMA and standard monitoring Results Review: All pre-operative results and documents have been reviewed as part of the pre-operative evaluation. Informed Consent: The patient's anesthetic plan and its attendant risks and benefits were discussed with the patient/family/POA. Questions were solicited and answers provided to the satisfaction of the patient/family/POA.
[2025-08-07] MEDS: MIDAZOLAM HCL (*CRX) 2 MG/2 ML VIAL IV PUSH (11:37)
[2025-08-07] MEDS: NACL 0.9% IRRIG POUR BOTTLE 1,000 ML, GENTAMICIN SULFATE INJ 160 MG, ceFAZolin 2 GM IRRIGATION (12:25)
[2025-08-07] MEDS: ceFAZolin 2 GM in SODIUM CHLORIDE 0.9% IV 50 ML 100 ML IVPB (12:25)
[2025-08-07] MEDS: LIDO 1%/EPINEPHRINE 1:100,000 20 ML VIAL INFILTRATE (12:25)
--- NOTE | 2025-08-07 12:56 | S_PTH ---
PATIENT: Chela Mcnulty LOC: [facility] U#:[id number] AGE/SX: 55/F ROOM: RE08/07/[address]: Jose Antonio Sal MD : 1970 BED: DIS: 08/09/2025 SPEC #: [id number] RECD: 08/07/25 13:55 STATUS: TRAVIS REChen #: [id number] KALEB: 08/07/25 12:[address]: Jose Antonio Sal DEPT: [facility] Surgical RECD BY: Shaila Soto ENTERED: 08/07/25 13:56 SP TYPE: Surgical OTHR DR: Key Tolliver, MChristy Tissues: A - Breast Tissue B - Implant C - Breast Capsule D - Breast Tissue E - Implant Procedures: Gross Exam Level 1 Hematoxylin and Eosin Stain Gross and Microscopic Level 3 Gross and Microscopic Level 4
--- NOTE | 2025-08-07 13:07 | SUR.OPER ---
specimans given to Jarvis in pathlogy
[2025-08-07] MEDS: BUPivacaine HCL 0.5% 10 ML AMP 20 ML INFILTRATE (13:26)
[2025-08-07] MEDS: fentaNYL CITRATE INJ (*CRX) 100 MCG/2 ML VIAL 25 MCG IV PUSH ×8 (14:31→15:12)
[2025-08-07] MEDS: HYDROmorphone HCL INJ (*CRX) 1 MG/ML SYR 0.5 MG IV PUSH ×3 (14:55→15:49)
[2025-08-07] MEDS: oxyCODONE HCL (*CRX) 5 MG TAB IR PO (15:06)
[2025-08-07] MEDS: diazePAM INJ (*CRX) 10 MG/2 ML SYRINGE 2.5 MG IV PUSH ×2 (15:17→15:26)
[2025-08-07] MEDS: KETOROLAC 15 MG/ML VIAL (*BKC) IV PUSH ×2 (15:32→19:35)
[2025-08-07] MEDS: HALOPERIDOL LACTATE 5 MG/ML VIAL 1 MG IV PUSH (16:03)
--- NOTE | 2025-08-07 17:17 | PM.IMCN2 ---
Assessment and Plan Assessment and plan (1) Encounter for exchange of breast implant: Qualifiers: Laterality: unspecified laterality Qualified Code(s): Z45.819 - Encounter for adjustment or removal of unspecified breast implant Code(s): Z45.819 - Encounter for adjustment or removal of unspecified breast implant Status: Acute Assessment and Plan: Patient underwent successful bilateral capsulotomy/capsulorrhaphy and breast implant exchange on 08/07/25. Patient was expected to return home after recovery today. However, she experienced significant postop pain it was too uncomfortable to return home. Patient remain in the PACU for roughly 2 hours in an attempt to get her pain under control. -surgical bra for support -ketorolac 15 mg IV PQ 6 p.r.n. -hydrocodone 5/325 2 tabs Q 4 p.r.n. for 2 doses -hydrocodone 7.5/325 q.4 hours p.r.n. starting in the morning -attempt to wean patient to home dose of 5/325 before D/C -try to avoid IV narcotic test patient is set to discharge on 08/08 (2) Hypertension: Qualifiers: Hypertension type: primary hypertension Qualified Code(s): I10 - Essential (primary) hypertension Code(s): I10 - Essential (primary) hypertension Status: Chronic Assessment and Plan: Continue Cozaar, metoprolol, nifedipine Plan Diet: Heart healthy DVT prophylaxis: SCD lines/drains: PIV Fluids: Intraoperative Code status: Full Prior Studies I have reviewed the following patient records and this information was taken into consideration when formulating the assessment and plan.: previous labs, previous ER visits, previous hospitalizations and previous clinic visits Time Spent with Patient Time with patient: 45 - 74 minutes HPI Date of Consult Consult date: 08/08/25 Requesting Physician: Jose Antonio Sal MD Primary Care Provider: Key TolliverManan Consult Narrative Reason for consult: Medical management Narrative: Chela Mcnulty is a 55 year old female with a past medical history of breast cancer status post bilateral mastectomy and radiation, lupus, hypertension, COPD presents today for a planned bilateral breast implant removal and replacement. Patient elected for this procedure due to continued breast tightness, right greater than left, most notable in the right upper outer quadrant. Patient described the pain as a tightness and sharp pain that radiates to the lower part of her breast. Patient has had several interventions on her breast since the bilateral mastectomy. Complicated breast reconstruction history with previous TRAM flap then left lat flap and b/l implant placement. Most recently had bilateral fat grafting opted for implants and b/l flank liposuction July [address] Rodolfo Truong at [facility], who is no longer within network for the patient. Pre-surgical MRI with no definitive evidence of implant rupture. Patient underwent successful bilateral capsulotomy/capsulorrhaphy and breast implant exchange on 08/07/25. Patient was expected to return home after recovery today. However, she experienced significant postop pain it was too uncomfortable to return home. While in PACU patient received 5 mg diazepam, 1 mg Haldol, 5 mg oxycodone, 15 mg ketorolac, 0.5 mg hydromorphone, 25 mcg fentanyl. Patient remained in a significant amount of pain and the decision was made for her to stay overnight for pain control. Patient does take hydrocodone 5/325 mg at home for chronic pain. Review of Systems Review of Systems: All systems reviewed & are unremarkable except as noted in HPI and below PMFSH Past Medical History Medical History History of breast cancer s/p bilateral mastectomy, chemo, radiation Hypothyroidism, unspecified hx of, no longer on medications Hearing loss Gastroesophageal reflux disease History of revision of total replacement of right knee joint Systemic lupus erythematosus Eczema Pancreatitis COPD (chronic obstructive pulmonary disease) Asthma Migraines Iron deficiency anemia History of blood transfusion. Hypertension Depression Sepsis Surgical History Surgical History History of knee replacement procedure of right knee History of knee surgery 11/08/23- Rev right TKA History of hysterectomy History of repair of right rotator cuff Status post trigger finger release History of fusion of cervical spine Status post transverse rectus abdominis muscle flap breast reconstruction History of endoscopic sinus surgery History of bilateral mastectomy History of appendectomy History of cholecystectomy History of carpal tunnel release Port-A-Cath in place Family History Family History Other Family history of malignant neoplasm Hypertension Social History Social History (Reviewed 07/29/25 @ 18:03 by IBIS Escalante Social History: Surrogate medical decision maker: Domingo Mcnulty, spouse. Code status: Full code. Smoking status: Never smoker Second hand tobacco smoke exposure: No Additional smoking assessment comments: chewed tobacco occassionally as a teen Alcohol intake: never Substance use: never Substance use type: does not use Lack of Transportation: No Lack of Food: Never True Current Housing: I Have Housing Concerned About Future Housing: No Difficulty Paying Gas/Electric Bills: No Difficulty Paying for Meds: No Currently Unemployed: No Education: High School Diploma/GED Difficulty w/ Childcare or Family Care: No Living arrangements: with family Additional living arrangements comments: [facility]USB Occupation/Education: unemployed Spiritual care concerns: No Meds Home Medications and Allergies Home Medications ?Medication ?Instructions ?Recorded ?Confirmed ?Type venlafaxine 225 mg tablet,extended 225 mg PO QAM 10/13/19 07/28/25 History release 24 hr famotidine 20 mg tablet 20 mg PO QAM 10/11/23 07/28/25 History nifedipine 30 mg tablet,extended 90 mg PO QAM 10/11/23 07/28/25 History release albuterol sulfate 90 mcg/actuation 2 puff inhalation Q4-6H PRN 09/16/24 07/28/25 History aerosol inhaler shortness of breath or wheezing omeprazole 40 mg capsule,delayed 40 mg PO QAM 09/16/24 07/28/25 History release losartan 25 mg tablet 25 mg PO DAILY 07/28/25 08/07/25 History metoprolol succinate 100 mg 100 mg PO DAILY 07/28/25 08/07/25 History tablet,extended release 24 hr trazodone 150 mg tablet 150 mg PO QHS 07/28/25 07/28/25 History ondansetron 4 mg disintegrating 4 mg PO Q8H PRN nausea and 07/29/25 Rx tablet vomiting #20 tabs polyethylene glycol 3350 17 17 g PO DAILY #238 grams 07/29/25 Rx gram/dose oral powder (ClearLax) sodium phosphates 19 gram-7 197 ml RECTAL ONCE #532 mL 07/29/25 Rx gram/118 mL enema (Fleet Enema) cephalexin 500 mg capsule 500 mg PO Q12H #14 caps 08/07/25 Rx cyclobenzaprine 5 mg tablet 5 mg PO Q8H PRN muscle spasm #12 12/05/25 Rx tabs hydrocodone 5 mg-acetaminophen 325 1 tablet PO Q4-6H PRN pain #16 tabs 08/07/25 Rx mg tablet Allergies Allergy/AdvReac Type Severity Reaction Status Date / Time meperidine AdvReac Severe HEADACHE Verified 08/07/25 17:38 scopolamine AdvReac Severe Headache Verified 08/07/25 17:38 adhesive tape AdvReac Unknown Rash, Verified 08/07/25 17:38 REDNESS, BURNING silver (From [employer] AdvReac BLISTER/REDNESS Verified 08/07/25 17:38 Mesh) AT SITE Vital Signs Vital Signs - 24 hr 08/07/25 10:55 08/07/25 14:18 08/07/25 14:30 Temperature 97.6 F 97.0 F L Pulse Rate 89 84 82 Respiratory Rate 16 15 13 Blood Pressure 153/88 H 133/74 137/75 Pulse Oximetry 97 97 95 Oxygen Delivery Room Air Simple Face Mask Room Air Oxygen Flow Rate 8 08/07/25 14:45 08/07/25 15:00 08/07/25 15:15 Temperature Pulse Rate 90 83 90 Respiratory Rate 13 13 12 Blood Pressure 136/74 156/91 H 160/100 H Pulse Oximetry 92 92 96 Oxygen Delivery Room Air Room Air Nasal Cannula Oxygen Flow Rate 3 08/07/25 15:30 08/07/25 15:38 08/07/25 15:45 Temperature Pulse Rate 86 97 Respiratory Rate 14 18 Blood Pressure 148/98 H 151/100 H Pulse Oximetry 96 94 94 Oxygen Delivery Nasal Cannula Nasal Cannula Room Air Oxygen Flow Rate 2 1 08/07/25 16:00 08/07/25 16:15 08/07/25 16:30 Temperature Pulse Rate 101 H 95 90 Respiratory Rate 18 15 15 Blood Pressure 116/92 H 130/79 121/67 Pulse Oximetry 92 92 92 Oxygen Delivery Room Air Room Air Nasal Cannula Oxygen Flow Rate 2 08/07/25 16:45 08/07/25 17:00 08/07/25 17:15 Temperature 97.0 F L Pulse Rate 97 91 89 Respiratory Rate 15 15 15 Blood Pressure 108/69 120/80 122/78 Pulse Oximetry 97 97 97 Oxygen Delivery Nasal Cannula Nasal Cannula Nasal Cannula Oxygen Flow Rate 2 2 2 Exam Narrative: GENERAL: non-toxic appearing, mild distress due to pain and itching. HEAD: Normocephalic, atraumatic. EYES: PERRLA. Conjunctivae clear. NOSE: Normal no drainage. THROAT: Pharynx clear, no exudate. NECK: Trachea midline. No adenopathy, no masses. RESPIRATORY: Airway patent, respirations nonlabored. CTA. CARDIOVASCULAR: Regular rate and rhythm BREASTS: Surgical bra in place. Did not assess incisions as patient was painful GASTROINTESTINAL: Abdomen is soft and nontender. No organomegaly. Bowel sounds normal in all quadrants. GENITOURINARY: Defer MUSCULOSKELETAL: Moves all extremities. No gross deformities. SKIN: Warm, dry, normal color. NEURO: A&O X4. Speech clear. Drowsy PSYCHIATRIC: Normal interaction Quality VTE Prophylaxis VTE prophylaxis: mechanical ordered Hospitalist [facility] [place] Advance Care Plan I have confirmed that the patient's Advanced Care Plan is present, code status is documented, or surrogate decision maker is listed in patient medical record.: Yes Medication Reconciliation I have utilized all available resources to obtain, update and review the patients current medications (includes all prescriptions, OTC, herbals, cannabis, and nutritional supplements).: Yes
--- NOTE | 2025-08-07 17:29 | ADMGEN ---
This patient, Chela Mcnulty, was admitted to 3 Med Surg Room 315-01. Patient/family oriented to hospital policies and general routines including ID bracelet, bed and alarms, visiting hours, pain management, procedures, bathroom and other care routines, personal items, smoking policy, room service/diet, and visiting hours. Information on how to activate the Rapid Response Team has been discussed. Patient/Family are encouraged to report perceived risks to care and to ask questions if they do not understand what they are told or what they should do.
[2025-08-07] MEDS: hydrOXYzine HCL 12.5 MG TABLET PO (18:12)
[2025-08-07] MEDS: HYDROcodone/acetaminophen (*CRX) 5-325 MG TABLET 1 TAB PO (21:27)
[2025-08-07] MEDS: PANTOPRAZOLE 40 MG TABLET PO (21:28)
[2025-08-08] MEDS: HYDROcodone/acetaminophen (*CRX) 5-325 MG TABLET 2 TAB PO ×2 (00:02→04:10)
[2025-08-08] MEDS: KETOROLAC 15 MG/ML VIAL (*BKC) IV PUSH ×3 (01:50→18:15)
[2025-08-08 05:11] VITALS: BP 108/59; PULSE 87; RESP 16; TEMP 36.2; O2SAT 95
[2025-08-08] MEDS: HYDROcodone/acetaminophen (*CRX) 7.5-325 MG TABLET 1 TAB PO ×4 (08:05→20:55)
[2025-08-08 08:06] VITALS: PULSE 80
[2025-08-08] MEDS: METOPROLOL SUCCINATE EXT REL 100 MG TABCR PO (08:06)
[2025-08-08] MEDS: VENLAFAXINE HCL XR 75 MG CAP.ER.24H 225 MG PO (08:07)
[2025-08-08] MEDS: PANTOPRAZOLE 40 MG TABLET PO ×2 (08:07→20:55)
[2025-08-08] MEDS: FAMOTIDINE 20 MG TABLET PO (08:07)
[2025-08-08] MEDS: LOSARTAN POTASSIUM 25 MG TABLET PO (08:08)
--- NOTE | 2025-08-08 10:12 | P.PNIM_ITS ---
Assessment and Plan Assessment and Plan (1) Encounter for exchange of breast implant: Qualifiers: Laterality: unspecified laterality Qualified Code(s): Z45.819 - Encounter for adjustment or removal of unspecified breast implant Code(s): Z45.819 - Encounter for adjustment or removal of unspecified breast implant Status: Acute Assessment and Plan: Patient underwent successful bilateral capsulotomy/capsulorrhaphy and breast implant exchange on 08/07/25. Patient was expected to return home after recovery today. However, she experienced significant postop pain it was too uncomfortable to return home. Patient remain in the PACU for roughly 2 hours in an attempt to get her pain under control. -surgical bra for support -ketorolac 15 mg IV PQ 6 p.r.n. -hydrocodone 5/325 2 tabs Q 4 p.r.n. for 2 doses -hydrocodone 7.5/325 q.4 hours p.r.n. starting in the morning -attempt to wean patient to home dose of 5/325 before D/C -try to avoid IV narcotic test patient is set to discharge on 08/08 no IV pain meds overnight using norco 7.5/325 mg and pain is better VS reviewed and ok, afebrile labs reviewed and wnl -she is stable for discharge from our standpoint. (2) Hypertension: Qualifiers: Hypertension type: primary hypertension Qualified Code(s): I10 - Essential (primary) hypertension Code(s): I10 - Essential (primary) hypertension Status: Chronic Assessment and Plan: Continue Cozaar, metoprolol, nifedipine BP reviewed and stable. NO changes to regimen. Plan Diet: Heart healthy DVT prophylaxis: SCD lines/drains: PIV Fluids: Intraoperative Code status: Full Medical Record Review I have reviewed the following patient records and this information was taken into consideration when formulating the assessment and plan.: previous labs and previous hospitalizations Time Spent With Patient Time with patient: 25 - 35 minutes Subjective Date/time seen: 08/08/25 10:12 Interval history: Chela Mcnulty is a 55 year old female with a past medical history of breast cancer status post bilateral mastectomy and radiation, lupus, hypertension, COPD presents today for a planned bilateral breast implant removal and replacement. Patient elected for this procedure due to continued breast tightness, right greater than left, most notable in the right upper outer quadrant. Patient described the pain as a tightness and sharp pain that radiates to the lower part of her breast. Patient has had several interventions on her breast since the bilateral mastectomy. Complicated breast reconstruction history with previous TRAM flap then left lat flap and b/l implant placement. Most recently had bilateral fat grafting opted for implants and b/l flank liposuction July [address] Rodolfo Truong at [facility], who is no longer within network for the patient. Pre-surgical MRI with no definitive evidence of implant rupture. Patient underwent successful bilateral capsulotomy/capsulorrhaphy and breast implant exchange on 08/07/25. Patient was expected to return home after recovery today. However, she experienced significant postop pain it was too uncomfortable to return home. While in PACU patient received 5 mg diazepam, 1 mg Haldol, 5 mg oxycodone, 15 mg ketorolac, 0.5 mg hydromorphone, 25 mcg fentanyl. Patient remained in a significant amount of pain and the decision was made for her to stay overnight for pain control. Patient does take hydrocodone 5/325 mg at home for chronic pain. Pt is seen and examined. Her pain is better with Jasper. She is c/o right sided breast pain, lt is fine. Denies nausea. Review of Systems Review of Systems: All systems reviewed & are unremarkable except as noted in HPI and below Exam Narrative: GENERAL: non-toxic appearing, appears comfortable. HEAD: Normocephalic, atraumatic. EYES: PERRLA. Conjunctivae clear. NOSE: Normal no drainage. THROAT: Pharynx clear, no exudate. NECK: Trachea midline. No adenopathy, no masses. RESPIRATORY: Airway patent, respirations nonlabored. CTA. CARDIOVASCULAR: Regular rate and rhythm BREASTS: Surgical bra in place. GASTROINTESTINAL: Abdomen is soft and nontender. No organomegaly. Bowel sounds normal in all quadrants. GENITOURINARY: Defer MUSCULOSKELETAL: Moves all extremities. No gross deformities. SKIN: Warm, dry, normal color. NEURO: A&O X4. Speech clear. Drowsy PSYCHIATRIC: Normal interaction Const: General: comfortable Objective Data Vital Signs Vital Signs: Vital Signs - 24 hr 08/07/25 10:55 08/07/25 14:18 08/07/25 14:30 Temperature 97.6 F 97.0 F L Pulse Rate 89 84 82 Respiratory Rate 16 15 13 Blood Pressure 153/88 H 133/74 137/75 Pulse Oximetry 97 97 95 Oxygen Delivery Room Air Simple Face Mask Room Air Oxygen Flow Rate 8 08/07/25 14:45 08/07/25 15:00 08/07/25 15:15 Temperature Pulse Rate 90 83 90 Respiratory Rate 13 13 12 Blood Pressure 136/74 156/91 H 160/100 H Pulse Oximetry 92 92 96 Oxygen Delivery Room Air Room Air Nasal Cannula Oxygen Flow Rate 3 08/07/25 15:30 08/07/25 15:38 08/07/25 15:45 Temperature Pulse Rate 86 97 Respiratory Rate 14 18 Blood Pressure 148/98 H 151/100 H Pulse Oximetry 96 94 94 Oxygen Delivery Nasal Cannula Nasal Cannula Room Air Oxygen Flow Rate 2 1 08/07/25 16:00 08/07/25 16:15 08/07/25 16:30 Temperature Pulse Rate 101 H 95 90 Respiratory Rate 18 15 15 Blood Pressure 116/92 H 130/79 121/67 Pulse Oximetry 92 92 92 Oxygen Delivery Room Air Room Air Nasal Cannula Oxygen Flow Rate 2 08/07/25 16:45 08/07/25 17:00 08/07/25 17:15 Temperature 97.0 F L Pulse Rate 97 91 89 Respiratory Rate 15 15 15 Blood Pressure 108/69 120/80 122/78 Pulse Oximetry 97 97 97 Oxygen Delivery Nasal Cannula Nasal Cannula Nasal Cannula Oxygen Flow Rate 2 2 2 08/07/25 17:51 08/08/25 05:11 08/08/25 08:00 Temperature 97.8 F 97.2 F L Pulse Rate 95 87 Respiratory Rate 18 16 Blood Pressure 124/71 108/59 L Pulse Oximetry 94 95 Oxygen Delivery Room Air Oxygen Flow Rate 08/08/25 08:06 Temperature Pulse Rate 80 Respiratory Rate Blood Pressure Pulse Oximetry Oxygen Delivery Oxygen Flow Rate Intake/Output Intake/Output: Intake & Output 08/05/25 08/06/25 08/07/25 08/08/25 23:59 23:59 23:59 23:59 Intake Total 1000 300 Balance 1000 300 Meds/Results Medications: Active Medications Generic Name Dose Route Start Last Admin Trade Name Freq PRN Reason Stop Dose Admin Hydrocodone Bitart/Acetaminophen 1 tab 08/08/25 08:00 08/08/25 08:05 Hydrocodone/Acetaminophen (*Crx) 7.5-325 Mg Tablet PO 1 tab Q4H PRN Administration Pain Rated 4-6 Famotidine 20 mg 08/08/25 09:00 08/08/25 08:07 Famotidine 20 Mg Tablet PO 20 mg QAM HIEU Administration Ketorolac Tromethamine 15 mg 08/07/25 17:43 08/08/25 01:50 Ketorolac 15 Mg/Ml Vial (*Bkc) IV PUSH 15 mg Q6H PRN Administration Pain Rated 4-6 Losartan Potassium 25 mg 08/08/25 09:00 08/08/25 08:08 Losartan Potassium 25 Mg Tablet PO 25 mg DAILY HIEU Administration Metoprolol Succinate 100 mg 08/08/25 09:00 08/08/25 08:06 Metoprolol Succinate Ext Rel 100 Mg Tabcr PO 100 mg DAILY HIEU Administration Nifedipine 90 mg 08/08/25 09:00 08/08/25 08:07 Nifedipine 30 Mg Tab.Er.24 PO 90 mg QAM HIEU Administration Pantoprazole Sodium 40 mg 08/07/25 21:00 08/08/25 08:07 Pantoprazole 40 Mg Tablet PO 40 mg Q12HR HIEU Administration Trazodone HCl 150 mg 08/07/25 21:00 08/07/25 21:27 Trazodone Hcl 50 Mg Tablet PO 150 mg QHS HIEU Administration Venlafaxine HCl 225 mg 08/08/25 09:00 08/08/25 08:07 Venlafaxine Hcl Xr 75 Mg Cap.Er.24h PO 225 mg QAM HIEU Administration Quality VTE Prophylaxis VTE prophylaxis: mechanical ordered
--- NOTE | 2025-08-08 13:08 | WPDPN ---
Progress Note: A&P Assessment and Plan (1) Chronic pain: Qualifiers: Chronic pain type: other chronic pain Qualified Code(s): G89.29 - Other chronic pain Code(s): G89.29 - Other chronic pain Status: Chronic Assessment and Plan: 55yo female POD#1 s/p b/l breast recon revision with post-operative pain requiring admission for further monitoring and mgmt improving and doing well noting patient pleasant in conversation and exam and using right arm without clear pain exacerbation any longer. discussed impression and Dx and hopeful expectation for continued mgmt on po pain medicine with plan for discharge today or tomorrow. Plan: 1) appreciate hospitalist consult and mgmt. 2) Plan for discharge tomorrow if patient feels outpatient pain mgmt isn't possible today. - I discussed with patient I will not be available tomorrow and appreciate if hospitalist on consult can complete discharge order as indicated. 3) cont surgical bra 4) pt sceduled for in-office follow up sunday (2) Acquired absence of bilateral breasts and nipples: Code(s): Z90.13 - Acquired absence of bilateral breasts and nipples Status: Acute Subjective Date/time seen: 08/08/25 13:08 Interval history: pt. seen and examined at bedside. patient repots interval improvement in pain control. notes still having right upper chest pain and tenderness but more controlled but doesn't yet feel controlled enough to go home. Review of Systems Review of Systems: All systems reviewed & are unremarkable except as noted in HPI and below Exam Narrative: surgical bra in place with incisions intact and skin flaps viable. scant dry sanguinous staining on dressing. no appreciable hematoma or seroma. right upper pole tender compared to left noting this was where patient had pre-op sensitivity as well. no erythema or ecchymosis Objective Data Vital Signs Vital Signs: Vital Signs - 24 hr 08/07/25 14:18 08/07/25 14:30 08/07/25 14:45 Temperature 36.1 C L Pulse Rate 84 82 90 Respiratory Rate 15 13 13 Blood Pressure 133/74 137/75 136/74 Pulse Oximetry 97 95 92 Oxygen Delivery Simple Face Mask Room Air Room Air Oxygen Flow Rate 8 08/07/25 15:00 08/07/25 15:15 08/07/25 15:30 Temperature Pulse Rate 83 90 86 Respiratory Rate 13 12 14 Blood Pressure 156/91 H 160/100 H 148/98 H Pulse Oximetry 92 96 96 Oxygen Delivery Room Air Nasal Cannula Nasal Cannula Oxygen Flow Rate 3 2 08/07/25 15:38 08/07/25 15:45 08/07/25 16:00 Temperature Pulse Rate 97 101 H Respiratory Rate 18 18 Blood Pressure 151/100 H 116/92 H Pulse Oximetry 94 94 92 Oxygen Delivery Nasal Cannula Room Air Room Air Oxygen Flow Rate 1 08/07/25 16:15 08/07/25 16:30 08/07/25 16:45 Temperature Pulse Rate 95 90 97 Respiratory Rate 15 15 15 Blood Pressure 130/79 121/67 108/69 Pulse Oximetry 92 92 97 Oxygen Delivery Room Air Nasal Cannula Nasal Cannula Oxygen Flow Rate 2 2 08/07/25 17:00 08/07/25 17:15 08/07/25 17:51 Temperature 36.1 C L 36.6 C Pulse Rate 91 89 95 Respiratory Rate 15 15 18 Blood Pressure 120/80 122/78 124/71 Pulse Oximetry 97 97 94 Oxygen Delivery Nasal Cannula Nasal Cannula Oxygen Flow Rate 2 2 08/08/25 05:11 08/08/25 08:00 08/08/25 08:06 Temperature 36.2 C L Pulse Rate 87 80 Respiratory Rate 16 Blood Pressure 108/59 L Pulse Oximetry 95 Oxygen Delivery Room Air Oxygen Flow Rate Intake/Output Intake/Output: Intake & Output 08/05/25 08/06/25 08/07/25 08/08/25 23:59 23:59 23:59 23:59 Intake Total 1000 540 Balance 1000 540 Meds/Results Medications: Active Medications Generic Name Dose Route Start Last Admin Trade Name Freq PRN Reason Stop Dose Admin Hydrocodone Bitart/Acetaminophen 1 tab 08/08/25 08:00 08/08/25 12:17 Hydrocodone/Acetaminophen (*Crx) 7.5-325 Mg Tablet PO 1 tab Q4H PRN Administration Pain Rated 4-6 Famotidine 20 mg 08/08/25 09:00 08/08/25 08:07 Famotidine 20 Mg Tablet PO 20 mg QAM HIEU Administration Ketorolac Tromethamine 15 mg 08/07/25 17:43 08/08/25 12:16 Ketorolac 15 Mg/Ml Vial (*Bkc) IV PUSH 15 mg Q6H PRN Administration Pain Rated 4-6 Losartan Potassium 25 mg 08/08/25 09:00 08/08/25 08:08 Losartan Potassium 25 Mg Tablet PO 25 mg DAILY HIEU Administration Metoprolol Succinate 100 mg 08/08/25 09:00 08/08/25 08:06 Metoprolol Succinate Ext Rel 100 Mg Tabcr PO 100 mg DAILY HIEU Administration Nifedipine 90 mg 08/08/25 09:00 08/08/25 08:07 Nifedipine 30 Mg Tab.Er.24 PO 90 mg QAM HIEU Administration Pantoprazole Sodium 40 mg 08/07/25 21:00 08/08/25 08:07 Pantoprazole 40 Mg Tablet PO 40 mg Q12HR HIEU Administration Trazodone HCl 150 mg 08/07/25 21:00 08/07/25 21:27 Trazodone Hcl 50 Mg Tablet PO 150 mg QHS HIEU Administration Venlafaxine HCl 225 mg 08/08/25 09:00 08/08/25 08:07 Venlafaxine Hcl Xr 75 Mg Cap.Er.24h PO 225 mg QAM HIEU Administration
[2025-08-08 21:00] VITALS: BP 117/63; PULSE 80; RESP 20; TEMP 37.1; O2SAT 94
[2025-08-09] MEDS: KETOROLAC 15 MG/ML VIAL (*BKC) IV PUSH ×3 (00:01→11:52)
[2025-08-09] MEDS: HYDROcodone/acetaminophen (*CRX) 7.5-325 MG TABLET 1 TAB PO ×3 (02:12→14:55)
[2025-08-09] MEDS: VENLAFAXINE HCL XR 75 MG CAP.ER.24H 225 MG PO (08:36)
[2025-08-09] MEDS: PANTOPRAZOLE 40 MG TABLET PO (08:36)
[2025-08-09] MEDS: FAMOTIDINE 20 MG TABLET PO (08:37)
--- NOTE | 2025-08-09 08:53 | PM.DS ---
DS: Admitting Diagnosis Discharge Date 08/09 Admitting Diagnosis breast reconstruction and revision DS: Discharge Diagnosis Discharge Diagnosis (1) Encounter for exchange of breast implant: Qualifiers: Laterality: unspecified laterality Qualified Code(s): Z45.819 - Encounter for adjustment or removal of unspecified breast implant Code(s): Z45.819 - Encounter for adjustment or removal of unspecified breast implant Status: Acute Assessment and Plan: Patient underwent successful bilateral capsulotomy/capsulorrhaphy and breast implant exchange on 08/07/25. Patient was expected to return home after recovery today. However, she experienced significant postop pain it was too uncomfortable to return home. Patient remain in the PACU for roughly 2 hours in an attempt to get her pain under control. -surgical bra for support -ketorolac 15 mg IV PQ 6 p.r.n. -hydrocodone 5/325 2 tabs Q 4 p.r.n. for 2 doses -hydrocodone 7.5/325 q.4 hours p.r.n. starting in the morning -attempt to wean patient to home dose of 5/325 before D/C -try to avoid IV narcotic test patient is set to discharge on 08/08 no IV pain meds overnight using norco 7.5/325 mg and pain is better VS reviewed and ok, afebrile labs reviewed and wnl -she is stable for discharge from our standpoint. (2) Hypertension: Qualifiers: Hypertension type: primary hypertension Qualified Code(s): I10 - Essential (primary) hypertension Code(s): I10 - Essential (primary) hypertension Status: Chronic Assessment and Plan: Continue Cozaar, metoprolol, nifedipine BP reviewed and stable. NO changes to regimen. Plan Diet: Heart healthy DVT prophylaxis: SCD lines/drains: PIV Fluids: Intraoperative Code status: Full DS: Summary Hospital Course Hospital Course: Chela Mcnulty is a 55 year old female with a past medical history of breast cancer status post bilateral mastectomy and radiation, lupus, hypertension, COPD presents today for a planned bilateral breast implant removal and replacement. Patient elected for this procedure due to continued breast tightness, right greater than left, most notable in the right upper outer quadrant. Patient described the pain as a tightness and sharp pain that radiates to the lower part of her breast. Patient has had several interventions on her breast since the bilateral mastectomy. Complicated breast reconstruction history with previous TRAM flap then left lat flap and b/l implant placement. Most recently had bilateral fat grafting opted for implants and b/l flank liposuction July [address] Rodolfo Truong at [facility], who is no longer within network for the patient. Pre-surgical MRI with no definitive evidence of implant rupture. Patient underwent successful bilateral capsulotomy/capsulorrhaphy and breast implant exchange on 08/07/25. Patient was expected to return home after recovery the yesterday. However, she experienced significant postop pain it was too uncomfortable to return home. While in PACU patient received 5 mg diazepam, 1 mg Haldol, 5 mg oxycodone, 15 mg ketorolac, 0.5 mg hydromorphone, 25 mcg fentanyl. Patient remained in a significant amount of pain and the decision was made for her to stay overnight for pain control. Patient does take hydrocodone 5/325 mg at home for chronic pain. 08/08 her pain was better controlled with [place] and she was able to avoid IV pain meds. Primary team send rx for norco and muscle relaxant and f/u instructions were provided per plastic surgery team. Pt is stable to be discharge with a close f/u, instructions to do IS . Surgical incision mngmnt per plastic. pt is aware and has no questions. Status at Discharge Functional status at discharge: independent ambulation Overall status at discharge: patient is progressing back to baseline Time Spent with Patient Time attestation: Total time spent providing and/or coordinating discharge services: Time spent: Less than 30 minutes Exam Narrative: GENERAL: non-toxic appearing, appears comfortable. HEAD: Normocephalic, atraumatic. EYES: PERRLA. Conjunctivae clear. NOSE: Normal no drainage. THROAT: Pharynx clear, no exudate. NECK: Trachea midline. No adenopathy, no masses. RESPIRATORY: Airway patent, respirations nonlabored. CTA. CARDIOVASCULAR: Regular rate and rhythm BREASTS: Surgical bra in place. GASTROINTESTINAL: Abdomen is soft and nontender. No organomegaly. Bowel sounds normal in all quadrants. GENITOURINARY: Defer MUSCULOSKELETAL: Moves all extremities. No gross deformities. SKIN: Warm, dry, normal color. NEURO: A&O X4. Speech clear. Drowsy PSYCHIATRIC: Normal interaction Const: General: comfortable DS: Data Data Completed and Pending Pending studies at discharge: Pending at discharge 08/07/25 12:56 Surgical [PTH] Routine Surgical [PTH] Routine Surgical [PTH] Routine Surgical [PTH] Routine Surgical [PTH] Routine Discharge Plan Discharge Attending physician on discharge: Olaf Whitfield Consulting providers: Olaf Whitfield Discharging Clinician: Alisia Nelson Patient Disposition: Home Activity: other - see discharge instructions Diet: heart healthy Wound Care Instructions: other - see discharge instructions Discharge Instructions: Post-Operative Instructions Breast Reconstruction Revision Dressing Instructions: Keep bra and surgical dressings clean, dry, and in place at all times. Shower Instructions: Keep surgical dressings, incisions, and drains, dry at all times. You may shower or sponge bathe from waist down. May sponge bathe underarms and upper extremities. Activity: Avoid strenuous activity and heavy lifting/pushing/pulling until seen in office for follow up appointment. Avoid overhead arm movements. Walking is encouraged to help with bowel movement as well as help prevent blood clots in the lower extremities. Deep breathing exercises are encouraged to help prevent lung infections. Medication: May take Advil or Tylenol for pain. May take prescription pain medications as prescribed if not controlled by Advil/Tylenol. Prescription pain medication may cause constipation. Take antibiotics as prescribed. Follow up: Please follow up in office in 3-5 days. Please call the office for any questions or concerns, including uncontrolled pain, fever/chills, bleeding, redness, or unexpected changes in sensation. If after normal business hours, please request the finishing operator page the surgeon or PA. For emergent symptoms, please call 911 or seek assistance at the nearest Emergency Room. Patient Language: Slovenian Stand Alone Forms: General Discharge Instructions Follow-up/Referrals: Jose Antonio Sal MD [Physician, Plastic Surgery] - 1 Week Referral Note: please f/u in 3-5 days Unruly,Manan Mackey [Primary Care Provider] - 2 Weeks Discharge Medications: New hydrocodone-acetaminophen 5-325 mg tablet 1 tablet PO Q4-6H PRN (Reason: pain) Qty: 16 0RF cephalexin 500 mg capsule 500 mg PO Q12H Qty: 14 0RF cyclobenzaprine 5 mg tablet 5 mg PO Q8H PRN (Reason: muscle spasm) Qty: 12 0RF Continued trazodone 150 mg tablet 150 mg PO QHS metoprolol succinate 100 mg tablet extended release 24 hr 100 mg PO DAILY losartan 25 mg tablet 25 mg PO DAILY Fleet Enema 19-7 gram/118 mL enema 197 ml RECTAL ONCE Qty: 532 0RF ondansetron 4 mg tablet,disintegrating 4 mg PO Q8H PRN (Reason: nausea and vomiting) Qty: 20 0RF polyethylene glycol 3350 [ClearLax] 17 gram/dose powder 17 g PO DAILY Qty: 238 0RF venlafaxine 225 mg tablet extended release 24hr 225 mg PO QAM nifedipine 30 mg tablet extended release 90 mg PO QAM famotidine 20 mg tablet 20 mg PO QAM albuterol sulfate 90 mcg/actuation HFA aerosol inhaler 2 puff INHALATION Q4-6H PRN (Reason: shortness of breath or wheezing) omeprazole 40 mg capsule,delayed release(DR/EC) 40 mg PO QAM Date of admission: 08/07/25 17:21 Primary Care Provider: UnrulyKey Admitting Provider: Jose Antonio Sal Attending physician on admission: Jose Antonio Sal Condition: Stable Quality VTE Prophylaxis VTE prophylaxis: mechanical ordered
[2025-08-09 09:25] VITALS: BP 128/70; PULSE 95; RESP 16; TEMP 37.4; O2SAT 97
[2025-08-09 09:45] VITALS: PULSE 96
[2025-08-09] MEDS: METOPROLOL SUCCINATE EXT REL 100 MG TABCR PO (09:45)
[2025-08-09] MEDS: LOSARTAN POTASSIUM 25 MG TABLET PO (09:45)
[2025-08-09] MEDS: CYCLOBENZAPRINE HCL 5 MG TABLET PO (09:52)
[2025-08-09 14:00] VITALS: BP 122/74; PULSE 91; RESP 16; TEMP 36.1; O2SAT 96
== END 2025-08-09 18:05 | disposition home or self-care (01) ==
LOC: ANHSURGERY 09:52 → ANH3MEDSUR 08-09 08:52
PROVIDERS: PCP Internal Medicine Infectious Disease; Visit Provider Plastic Surgery
PROC: (CPT 19380; principal; 2025-08-07 12:15)
DX: N65.1 Disproportion of reconstructed breast (principal); G89.29 Other chronic pain; I10 Essential (primary) hypertension; E03.9 Hypothyroidism, unspecified; K21.9 Gastro-esophageal reflux disease without esophagitis; D50.9 Iron deficiency anemia, unspecified; F32.A Depression, unspecified; L93.0 Discoid lupus erythematosus; L30.9 Dermatitis, unspecified; J44.9 Chronic obstructive pulmonary disease, unspecified; R94.31 Abnormal electrocardiogram [ECG] [EKG]; E66.9 Obesity, unspecified; Z68.37 Body mass index [BMI] 37.0-37.9, adult; Z79.51 Long term (current) use of inhaled steroids; Z79.891 Long term (current) use of opiate analgesic; Z98.890 Other specified postprocedural states; Z98.1 Arthrodesis status; Z90.49 Acquired absence of other specified parts of digestive tract; Z90.13 Acquired absence of bilateral breasts and nipples; Z95.828 Presence of other vascular implants and grafts; Z87.891 Personal history of nicotine dependence; Z85.3 Personal history of malignant neoplasm of breast; Z92.3 Personal history of irradiation; Z92.21 Personal history of antineoplastic chemotherapy; Z80.9 Family history of malignant neoplasm, unspecified
CPT/HCPCS: 19380; 88300; 88304; 88305; 93005; J0690; A9270; C1789; J1100; J1171; J1200; J1580; J1630; J1885; J2003; J2004; J2250; J2371; J2405; J2704; J3010; J3360; J7120

== ENCOUNTER 2025-08-12 21:56 | Emergency (ER) | payer OTHER, SELFPAY ==
--- NOTE | ~2025-08-12 | CT_ITS ---
CTA CHEST CLINICAL HISTORY: recent surgery, elevated heart rate . COMPARISON: None TECHNIQUE: Helical CTA performed from thoracic inlet to upper abdomen 100 mL Omnipaque 350 Coronal, sagittal reformats. Multiplanar MIPS CT images acquired with automatic exposure control for dose reduction DLP: 675 mGy-cm FINDINGS: Pulmonary arteries: No PE. Thoracic Aorta: No dissection or aneurysm. Heart/pericardium: Unremarkable. RV/LV ratio: Normal. Lungs/Pleura: Clear. Tracheobronchial tree: Patent. Nodes: No enlarged nodes. Left hilar calcifications. Bones: No acute bony abnormality. Soft tissues: Breast implants, surrounding fluid and gas. Visualized upper abdomen: Unremarkable. IMPRESSION: 1. No PE or other acute cardiopulmonary findings. 2. Fluid and gas surrounding breast implants, presumably expected postoperative changes. Reviewed, dictated and finalized at location R. CH FACTORY LABORER IMPRESSION: 1. No PE or other acute cardiopulmonary findings. 2. Fluid and gas surrounding breast implants, presumably expected postoperativ e changes.
--- NOTE | ~2025-08-12 | CT_ITS ---
CT HEAD NON-CONTRAST Clinical History: vertigo, headache Comparison: 03/09/2023 Technique: Unenhanced axial images skull base to vertex Coronal, sagittal reformats CT images acquired with automatic exposure control for dose reduction DLP: 605 mGy-cm Findings: Sulci, ventricles: Unremarkable. No intracerebral hemorrhage. No evidence acute territorial infarct. No mass effect, midline shift. Bony calvarium intact. Visualized paranasal sinuses: Clear. Mastoid air cells: Clear. IMPRESSION: 1. No acute intracranial findings. Reviewed, dictated and finalized at location R. CLOSURE CLERK
[2025-08-12 21:58] VITALS: BP 121/73; PULSE 91; RESP 18; TEMP 36.8; O2SAT 98
--- OUTSIDE RECORDS SUMMARY | 2025-08-12 21:59 | XMS_ITS | Encounter Summary ---
Author Organization [facility] Address [address] [place] [address] Care Team Providers Care Laboratory Director Name Role Phone Key Tolliver MD Primary Care Provider Pablo Liriano MD Unavailable [phone] Evan Willis MD Unavailable [phone] Charles Kingston MD Unavailable Reason for Visit * Reason Onset Date Comments Question 02/20/2025 Encounter Details Date Type Department Care Team (Late st Contact Info) Description 02/20/2025 Telephone [facility] - Orthopedic Surgery [address] [address] Tamie Olivas, RN Question Social [...] on file Legal Sex Female 11:46 AM SLOT MACHINE KEY 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 Gender Identity Not on file Sexual Orientation [...] (Latest Contact Info) Description 09/09/2025 11:15 AM SLOT MACHINE KEY PERSON Office Visit [facility] - Orthopedics [address] [facility] [place] [address] Yandel Petersen MD [address] [place] [address] 10/14/2025 7:20 AM SLOT MACHINE KEY PERSON Hospital Encounter [facility] Op [address] [address] Mariano Guzmán MD [address] [address] Surgery General 10/14/2025 7:20 AM SLOT MACHINE KEY PERSON - 10/14/2025 9:08 AM SLOT MACHINE KEY PERSON Surgery [facility] Op [address] [address] Mariano Guzmán MD [address] [address] ARTHROSCOPY SHOULDER BICEP TENODESIS, DEBRIDEMENT 10/22/2025 2:40 PM SLOT MACHINE KEY PERSON Office Visit [facility] - Orthopedic Surgery [address], [address] [place] [phone] Mariano Guzmán MD [address] [address] 03/11/2026 2:00 PM CDT Office Visit [facility] - Rheumatology [address] [place] [address], [place] [phone] Ev Lowery MD [address] [place] [address] [place] [address] Scheduled Procedures Name Priority Associated Diagnoses Date/Ti me ARTHROSCOPY SHOULDER BICEP TENODESIS Chronic pain in right shoulder Biceps tendinitis of right shoulder 10/14/2025 7:20 AM SLOT MACHINE KEY PERSON documented as of this encounter Goals Goal Patient Goal Type Associated Problems Recent Progress Patient-Stated? Author Mobility General Improving( 1:50 PM CDT) Coreen Rider, RN Note: Expected end date: 12/01/2020 The goal is to maintain or improve your mobility at the optimum level for you. Interventions: Mobility General Worsening( 1:20 PM SLOT MACHINE KEY PERSON) No Lilo Kaminski RN Note: Expected end date: 11/17/2019 The goal is to maintain or improve your mobility at the optimum level for you. Interventions: PAIN General No Shira Sun RN Note: Expected end date: 01/18/2020 Patient's pain/discomfort is manageable. Interventions: documented as of this encounter Visit Diagnoses Not on filedocumented in this encounter Care Teams Laboratory Director Relationship Specialty Start Date End Date Key Tolliver MD [address] [place] [phone] PCP - General 10/22/18 Pablo Liriano MD [address] [place] [phone] Orthopedic Surgery 05/22/19 Evan Willis MD [address] [place] [address] [phone] Medical Oncologist Medical Oncology 11/02/21 Charles Kingston MD [address] [place] [phone] Bottle And Glass Inspector Cardiology 11/03/21 documented as of this encounter
--- OUTSIDE RECORDS SUMMARY | 2025-08-12 21:59 | XMS_ITS | Patient Health Record ---
Author Organization [facility] [employer] Address [address] [facility] [address] [place] [address] Care Team Providers Care Rn Endoscopy Name Role Phone Kate Burgos Unavailable [phone] Reason For Referral No Information Medications Medication [...] ML (15 ML) ORAL SOLUTION *Reorder from [employer] for eRx and Interaction Alerts* Active Dicyclomine HCl 20 MG Tablet Oral Active SEROquel 100 MG Tablet Oral Active Ferrous Sulfate 325 (65 Fe) MG Tablet Oral Active Plan Of Treatment No Information
--- OUTSIDE RECORDS SUMMARY | 2025-08-12 22:00 | XMS_ITS | Encounter Summary ---
Author Organization [facility] Address 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 Gender Identity Not on file Sexual Orientation [...] Description 12/24/2025 2:15 PM CDT Office Visit [facility] Oncology and Hematology - [place] [address] [place] [address] Evan Willis MD [address] [facility] [address] [place] [address] documented as of this encounter Visit Diagnoses Diagnosis Malignant neoplasm of upper-outer quadrant of left breast in female, estrogen receptor positive (CMS/HCC) documented in this encounter Care Teams Air Sealing Technician Relationship Specialty [place] [address] [place] [phone] PCP - General Internal Medicine 11/05/18 documented as of this encounter
--- OUTSIDE RECORDS SUMMARY | 2025-08-12 22:00 | XMS_ITS | Clinical Summary ---
Author Organization [facility] Address [address] [place] [address] Care Team Providers Care Home Health Manager Name Role Phone Unavailable Primary Care Provider Unavailabl e Allergies Active Allergy Reactions Criticality Noted Date Comments Tape Rash Low 09/12/2016 Medications anastrozole 1 MG tablet TAKE 1 TABLET(1 MG) BY MOUTH DAILY 7 Active cholecalciferol (D3-50) 90899 units capsule Take 100,000 Units by mouth [...] A MEAL 8 Active multi vitamin/mineral s (VITAMINS/DREDGING INSPECTOR ALS) tablet Take 1 tablet by mouth. [...] Comments Blood Pressure 146/90 08/01/2018 1:02 PM CLINICAL MASSAGE THERAPIST Pulse 89 08/01/2018 1:02 PM CLINICAL MASSAGE THERAPIST Temperature 36.6 C (97.9 F) 08/01/2018 1:02 PM CLINICAL MASSAGE THERAPIST Respiratory Rate 20 08/01/2018 1:02 PM CLINICAL MASSAGE THERAPIST Oxygen Saturation 100% 08/01/2018 1:02 PM CLINICAL MASSAGE THERAPIST Inhaled Oxygen Concentration - - Weight 88 kg (194 lb) 08/01/2018 1:02 PM CLINICAL MASSAGE THERAPIST Height 167.6 cm (5' 6) 08/01/2018 1:02 PM CLINICAL MASSAGE THERAPIST Body Mass Index 31.31 08/01/2018 1:02 PM CLINICAL MASSAGE THERAPIST Plan of Treatment Health Maintenance Due Date [...]
--- OUTSIDE RECORDS SUMMARY | 2025-08-12 22:00 | XMS_ITS | Clinical Summary ---
Author Organization [facility] Address [address] [place] [address] Care Team Providers Care Credit Union Field Examiner Name Role Phone Key Tolliver MD [...] CDT - 06/11/2025 4:42 PM CDT Emergency [facility] Emergency Department [address] [place] [address] Fall, 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Primary Dx); Acute right-sided low back pain with right-sided sciatica; Sprain of left ankle, unspecified ligament, initial encounter Discharge Disposition: Discharge to home or self care 06/09/2025 Results Follow-Up [facility] Neurology [address] [facility] [address] [place] [phone] Peggy Reid MA EEG 06/08/2025 2:28 PM CDT - 06/08/2025 11:59 PM CDT Hospital Encounter [facility] MRI [address] [place] [address] Altered mental status, unspecified altered mental status type Discharge Disposition: Discharge to home or self care 06/08/2025 1:13 PM CDT - 06/08/2025 11:59 PM CDT Hospital Encounter [facility] Cardiac Testing [address] [place] [address] Altered mental status, unspecified altered mental status type Discharge Disposition: Discharge to home or self care 05/27/2025 Telephone [facility] [address] [place] [phone] Linden Watler Si, MD Scheduling Appointments (CALL SCHEDULING ) 05/26/2025 1:30 PM CDT Office Visit [facility] [address] [place] [phone] Linden Walter Si, MD Altered mental status, unspecified altered mental status type (Primary Dx); Stuttering 05/14/2025 2:33 PM CDT - 05/14/2025 11:59 PM CDT Hospital Encounter [facility] [address] [place] [phone] Discharge Disposition: Discharge to home or self care 05/14/2025 2:33 PM CDT - 05/14/2025 11:59 PM CDT Hospital Encounter [facility] [address] [place] [phone] Discharge Disposition: Discharge to home or self care 05/14/2025 2:00 PM CDT Office Visit [facility] at [address] [phone] Jace Muller MD Pain in left foot [...] on file Legal Sex Female 6:25 PM COMPLIANCE INTERN Gender Identity Not on file Sexual Orientation [...] Naveen Dash M.D. WILY: WILY Report ID: [id number] Reading Location: [place] [address] Procedure Note Naveen Dash MD - 06/11/2025 [...] - Electronically signed by Naveen Dash M.D. IWLY: WILY Report ID: [id number] Reading Location: [id number] Rashawn Cloud NP IMG CT PROCEDURES Final [...] Jose Chan M.D. KR: JAKE Report ID: [id number] Reading Location: [id number] Procedure Note Jose Chan MD - 06/11/2025 [...] Jose Chan M.D. KR: JAKE Report ID: [id number] Reading Location: [id number] Rashawn Cloud NP IMG XR PROCEDURES Final [...] by Rodolfo Tapia M.D. T: Report ID: [id number] Reading Location: [id number] Procedure Note Rodolfo Tapia, DO - 06/08/2025 EXAM DESCRIPTION: MRI BRAIN WO CONTRAST REASON FOR STUDY: Mental status change, unknown cause Pt is having episodes of dementia and acting like she is a child for pastfew months. PT doesn't recall episodes. They are per her daughter TECHNIQUE: Multiplanar imaging includes non-contrasted T1, T2, FLAIR, and diffusion with ADC map sequences. Additional sequence(s) sensitive Advizzer. Images stored on PACS. COMPARISON: None available. [...] by Rodolfo Tapia M.D. T: Report ID: [id number] Reading Location: [id number] Linden Walter MD IM MRI PROCEDURES Final [...] agrees with it. ACC# Date Time Exam [id number] May 07, 2013 13:59:00 [facility] [id number] Bilateral Tomosynthesis Technologist(s): Ashley Batista; ; [id number] May 07, 2013 13:59:00 [facility] [address] Diag Mammogram Bilateral Technologist(s): Ashley Batista; ; [id number] May 07, 2013 14:24:00 [facility] [id number] Sono Breast (Unilateral) L EXAMINATION: BILATERAL FULL [...] diagnostic mammogram and accompanying ultrasound performed at [facility] breast [place] on 04/28/2013. BREAST PARENCHYMAL COMPOSITION: Heterogeneously dense, [...] been scheduled to return to the [facility] for an ultrasound-guided core needle [...] agrees with it. ACC# Date Time Exam [id number] May 07, 2013 13:59:00 [facility] [id number] Bilateral Tomosynthesis Technologist(s): Ashley Batista; ; [id number] May 07, 2013 13:59:00 [facility] [address] Diag Mammogram Bilateral Technologist(s): Ashley Batista; ; [id number] May 07, 2013 14:24:00 [facility] [id number] Sono Breast (Unilateral) L EXAMINATION: BILATERAL FULL [...] diagnostic mammogram and accompanying ultrasound performed at [facility] on 04/28/2013. BREAST PARENCHYMAL COMPOSITION: Heterogeneously [...] been scheduled to return to the [facility] for an ultrasound-guided core needle [...] CDT PROCEDURE REPORT Patient: CHELA MCNULTY Account: [id number] Room No: 2619-01 : 1970 Patient Type: [...] Most Recently Relevant to Health Maintenance Insurance [facility] Care Teams Credit Union Field Examiner Relationship Specialty Start Date End Date Key Tolliver MD [address] [place] [id number] PCP - General Internal Medicine 12/08/24
--- OUTSIDE RECORDS SUMMARY | 2025-08-12 22:00 | XMS_ITS ---
Author Organization [facility] Address [address] [facility] [address] [place] [address] Care Team Providers Care Corporate Compliance Officer Name Role Phone Key Tolliver MD Primary Care Provider Pablo Liriano MD Unavailable Evan Willis MD Unavailable [phone] Charles Kingston MD Unavailable Active Problems [...] hyperlipidemia 03/30/2021 Atherosclerotic heart diseas e of [place] coronary artery without angina pectoris 03/30/2021 Chest [...]
--- OUTSIDE RECORDS SUMMARY | 2025-08-12 22:00 | XMS_ITS | Encounter Summary ---
Author Organization [facility] Address [address] [place] [address] Care Team Providers Care Fur Sorter Name Role Phone Key Tolliver MD Primary Care Provider [phone] Reason for Visit * Reason Comments Medication Refill Encounter Details Date Type Department Care Team ([facility] Contact Info) Description 11/05/2019 Refill [facility] Plastic Surgery and Burn [address] [address] Rodolfo Truong MD [address] [facility] [address] [place] [address] Social History Tobacco Use Types Packs/Day Years Used Date Smoking Tobacco: Never Smokeless Tobacco: Never Alcohol Use Standard Drinks/Week Comments No 0 (1 standard drink = 0.6 oz pur e alcohol) Comments No Sex and Gender Information Value Date Recorded Sex Assigned at Not on file Legal 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 Female 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 Gender Identity Not on file Sexual Orientation Not on file documented as of this encounter Plan of Treatment Upcoming Encounters Date Type Department Care Team (Late Contact Info) Description 12/24/2025 2:15 PM CDT Office Visit [facility] Oncology and Hematology - [place] [address] [facility] [address] [place] [address] Evan Willis MD [address] [facility] [address] [place] [address] documented as of this encounter Visit Diagnoses Not on filedocumented in this encounter Care Teams Fur Sorter Relationship Specialty Start Date End Date Key Tolliver MD [address] [place] [address] PCP - General Internal Medicine 11/05/18 documented as of this encounter
--- OUTSIDE RECORDS SUMMARY | 2025-08-12 22:00 | XMS_ITS | Clinical Summary ---
Author Organization [facility] Address [address] [place] [address] Care Team Providers Care Parks Recreation Director Name Role Phone Key Tolliver MD Primary Care Provider Pablo Liriano MD Unavailable [phone] Evan Willis MD Unavailable [phone] Charles Kingston MD Unavailable Source Comments [facility],non-owned Affiliates and Associated Physician Practices is amultiple site organization consisting of ambulatory clinics and hospital sitesin [place], [place], [place] and [place]. This disclosure is being madepursuant to the Care Everywhere program and may not contain all information available regarding this patient. Last updated 18.[facility] Allergies Active Allergy Reactions Criticality Noted [...] 5 Active fish oil/omega-3 fatty acids (Promega;Cardi- [place] 3) 1000 MG capsule Take by mouth [...] 3PM WITH 8OZ OF WATER 5 Active predniSONE (Deltasone) 20 MG tablet Take [...] daily for 30 days. 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 03/30/2021 Chest [...] - Orthopedic Surgery [address] [place] [address] Mariano Guzmán MD Surgery Scheduling 07/16/2025 11:37 AM PLAN NURSE - 07/16/2025 11:59 PM PLAN NURSE Hospital Encounter [facility] Health Imaging Services - MRI [address] [place] [phone] Yandel Petersen MD Discharge Disposition: Home or Self Care 07/16/2025 11:37 AM PLAN NURSE - 07/16/2025 11:59 PM PLAN NURSE Hospital Encounter [facility] Imaging Services - [facility] [address] [place] [phone] Yandel Petersen MD Discharge Disposition: Home or Self Care 07/16/2025 Orders Only [facility] - Orthopedics [address] [place] [phone] Myriam Roman RN Neck pain ; Hx of cervical spine surgery; Lumbar pain; Lumbar radiculopathy 07/15/2025 Orders Only [facility] - Orthopedic Surgery [address] [place] [address] Mariano Guzmán MD Chronic pain in right shoulder ; Biceps tendinitis of right shoulder 07/09/2025 1:00 PM PLAN NURSE Office Visit [facility] - Orthopedic Surgery [address] [place] [address] Mariano Guzmán MD 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); Biceps tendinitis of right shoulder; Osteoarthritis of right glenohumeral joint 07/09/2025 Refill [facility] - Orthopedic Surgery [address] [place] [address] Zechariah Soto LPN MEDICATION REFILL 07/09/2025 Travel 06/30/2025 Orders Only [facility] - Orthopedic Surgery [address] [place] [phone] Yandel Petersen MD Neck pain ; Hx of cervical spine surgery; Lumbar pain; Lumbar radiculopathy 06/30/2025 Orders Only [facility] - Orthopedics [address] [place] [phone] Myriam Roman, DARRON Lumbar pain; Neck pain; Hx of cervical spine surgery 06/27/2025 Refill [facility] - Orthopedic Surgery [address] [place] [phone] Latrice Salinas MD Refill Request 06/10/2025 Telephone [facility] - Orthopedics [address] [place] [phone] Myriam Roman, DARRON Appointment 06/05/2025 Telephone [facility] Physician [facility] - Orthopedics [address] [place] [phone] Myriam Roman flat drier 05/28/2025 2:30 PM CDT Office Visit [facility] - Orthopedic Surgery [address] [place] [address] [phone] Yandel Petersen MD Lumbar pain (Primary Dx); Lumbar radiculopathy; Status post cervical disc replacement; Pain in joint of right shoulder 05/28/2025 1:00 PM CDT - 05/28/2025 11:59 PM CDT Hospital Encounter [facility] - Orthopedics [address] [place] [address], [address] [place] [phone] Yandel Petersen MD Discharge Disposition: Home or [...] on file Legal Sex Female 11:46 AM PLAN NURSE Gender Identity Not on file Sexual [...] 103 kg (227 lb) 07/09/2025 12:56 PM PLAN NURSE Height 165.1 cm (5' 5) 07/09/2025 12:56 PM PLAN NURSE Body Mass Index 37.77 07/09/2025 12:56 PM PLAN NURSE Plan of Treatment Upcoming Encounters Date Type Department Care Team (Latest Contact Info) Description 09/09/2025 11:15 AM PLAN NURSE Office Visit [facility] - Orthopedics [address] [place] [address], [place] [address] Yandel Petersen MD [address] [place] [address] 10/14/2025 7:20 AM PLAN NURSE Hospital Encounter [facility] [address] [place] [address] Mariano Guzmán MD [address] [place] [address] Surgery General 10/14/2025 7:20 AM PLAN NURSE - 10/14/2025 9:08 AM PLAN NURSE Surgery [facility] [address] [place] [address] Mariano Guzmán MD [address] [place] [address] ARTHROSCOPY SHOULDER BICEP TENODESIS, DEBRIDEMENT 10/22/2025 2:40 PM PLAN NURSE Office Visit [facility] - Orthopedic Surgery [address] [place] [phone] Mariano Guzmán MD [address] [place] [address] 03/11/2026 2:00 PM CDT Office Visit [facility] - Rheumatology [address] [place] [address], [place] [phone] Ev Lowery MD [address] [place] [address] [place] [phone] Scheduled Procedures Name Priority Associated Diagnoses Date/Ti me ARTHROSCOPY SHOULDER BICEP TENODESIS Chronic pain in right shoulder Biceps tendinitis of right shoulder 10/14/2025 7:20 AM PLAN NURSE Health Maintenance Due Date Last Done Comments [...] VACCINE (1 of 2) 2019 COVID-19 VACCINE (4 - 2024- season) 2025 08/03/2021, 12/25/2020, 12/02/2020 INFLUENZA VACCINE [...] you. Interventions: Mobility General Worsening( 1:20 PM PLAN NURSE) No Lilo Kaminski RN Note: Expected end date: 11/17/2019 The goal is to maintain or improve your mobility at the optimum level for you. Interventions: PAIN General No Shira Sun RN Note: Expected end date: 01/18/2020 Patient's pain/discomfort is manageable. Interventions: Medical Devices Implanted Type Area Pump Rebuilder Device Identifier Shelf Expiration Date Model / Serial / Lot Cmnt Bone Plc R+Ggnta 40gm Lf Grn Implanted:Qty: 1 on 10/11/2017 by Rajendra Ingram MD at [facility] Left: Knee [employer] 12/01/2020 [id number] / / [id number] Description:12 BEADS IN LEFT KNEE ON VICRYL SUTURE 21 BEADS IN RIGHT KNEE ON VICRYL SUTURE Brng [id number] Vngrd Arcm Kn Ant Stab Implanted:Qty: 1 on 10/16/2017 by Rajendra Ingram MD at [facility] Left: Knee [employer] 06/09/2022 [id number] / / Brng [id number] Vngrd Arcm Kn Ant Stab Implanted:Qty: 1 on 10/16/2017 by Rajendra Ingram MD at [facility] Right: Knee [employer] 07/25/2022 [id number] / / Cmpnt Tibtry Bmt As Mx Kn Intlk Prm Lck Implanted:Qty: 1 on 10/16/2017 by Rajendra Ingram MD at [facility] Left: Knee [employer] 07/11/2027 [id number] / / Cmpnt Tibtry Bmt As Mx Kn Intlk Prm Lck Implanted:Qty: 1 on 10/16/2017 by Rajendra Ingram MD at [facility] Right: Knee [employer] 06/17/2027 [id number] / / Kam Kn Tot Rev 50% Of 2014 Implanted:Qty: 1 on 10/16/2017 by Rajendra Ingram MD at [facility] Wan [employer] KR2 KNEE TO T REV WAN BILL ONLY / / Cmpnt Glnd 38mm Std Glenosphere Sckt Geovany Implanted:Qty: 1 on 03/19/2019 by Pablo Liriano MD at [facility] Left: Shoulder Depuy [employer] Inc 11/01/2023 [id number] / / Description:DXTND GLENOSPHER E STD [id number]--48/22 LG Dxtend Mod Cent Epi 1 Ocampo Implanted:Qty: 1 on 03/19/2019 by Pablo Liriano MD at [facility] Left: Shoulder 01/01/2024 1307-20-101 / / Description:delta xtend mudu lar centered epiphysis Global Unite Std Stem Sz 8 Implanted:Qty: 1 on 03/19/2019 by Pablo Liriano MD at [facility] Left: Shoulder 08/02/2027 1100-08-100 / / Description:global unite por ocoat standard stem Dxtend Stand Pe Cup D38 +3mm Implanted:Qty: 1 on 03/19/2019 by Pablo Liriano MD at [facility] Left: Shoulder 1307-38-203 / / [id number] Description:Delta xtend lyudmila ral PE cup standard Sys Shld Tot Arthroplst Rev Implanted:Qty: 1 on 03/19/2019 by Pablo Liriano MD at [facility] Left: Shoulder [employer] S4 DEPUY / / Cmpnt Glnd 27mm Std Geovany Xtend Metaglene Implanted:Qty: 1 on 03/19/2019 by Pablo Liriano MD at [facility] Left: Shoulder [employer] 12/02/2023 1307-60-000 / / Description:DXTEND METAGLENE Dxtend Screw Lock D4.5x36mm Implanted:Qty: 1 on 03/19/2019 by Pablo Liriano MD at [facility] Left: Shoulder 12/02/2023 1307-90-036 / / Description:PACK ACL TISSUE FX CSTM SRG PRC DISP Screw 4.5mm 30mm Shldr Glnd Lck Geovany Implanted:Qty: 1 on 03/19/2019 by Pablo Liriano MD at [facility] Left: Shoulder [employer] 01/01/2024 1307-90-030 / / Description:DXTEND SCREW LOC K D4.8A75XD--28/22 LG 6.5mm Canellous Screw Implanted:Qty: 1 on 10/25/2020 by Anjelica Gutierres MD at [facility] Right: Ankle [employer] 486-55-01 / / 6.5mm Cancellous Screw Implanted:Qty: 1 on 10/25/2020 by Anjelica Gutierres MD at [facility] Right: Ankle [employer] / / Cortical Screw 2.7mm Implanted:Qty: 1 on 10/25/2020 by Anjelica Gutierres MD at [facility] Right: Ankle [employer] [id number] / / Screw 3.5mm 32mm 2.5mm Slf-Tap Sm Hex Implanted:Qty: 2 on 10/25/2020 by Anjelica Gutierres MD at [facility] Right: Ankle [employer] [id number] / / Screw 3.5mm 45mm 2.5mm Slf-Tap Sm Hex Implanted:Qty: 1 on 10/25/2020 by Anjelica Gutierres MD at [facility] Right: Ankle [employer] [id number] / / Graft Bone Alfs + Dbm 1cc Algrf Pst Implanted:Qty: 1 on 10/25/2020 by Anjelica Gutierres MD at [facility] Right: Ankle Allosource 04/08/2021 [id number] / / [id number] Bsplt Glnd 30mm Rsp Shldr P2 Strl Lf Implanted:Qty: 1 on 04/26/2022 by Mariano Guzmán MD at [facility] Left: Shoulder [employer] 03/23/2028 508-32-204 / / [id number] Screw 5mm 14mm Shldr Lck Rsp Glnd Bsplt Implanted:Qty: 1 on 04/26/2022 by Mariano Guzmán MD at [facility] Left: Shoulder [employer] 03/25/2028 506-03-114 / / [id number] Screw 5mm 14mm Shldr Lck Rsp Glnd Bsplt Implanted:Qty: 1 on 04/26/2022 by Mariano Guzmán MD at [facility] Left: Shoulder [employer] 04/05/2028 506-03-114 / / [id number] Screw 5mm 30mm Shldr Lck Rsp Glnd Bsplt Implanted:Qty: 1 on 04/26/2022 by Mariano Guzmán MD at [facility] Left: Shoulder [employer] 03/13/2028 506-03-130 / / [id number] Screw 5mm 30mm Shldr Lck Rsp Glnd Bsplt Implanted:Qty: 1 on 04/26/2022 by Mariano Guzmán MD at [facility] Left: Shoulder [employer] 03/18/2028 506-03-130 / / [id number] Cmnt Bone Djo Srg Cblt 40gm Hvisc Strl Implanted:Qty: 1 on 04/26/2022 by Mariano Guzmán MD at [facility] Left: Shoulder [employer] 03/16/2023 600-15-000 / / [id number] Head Glnd 32mm Rsp Ntrl Shldr Rtn Screw Implanted:Qty: 1 on 04/26/2022 by Mariano Guzmán MD at [facility] Left: Shoulder [employer] 03/22/2028 508-32-101 / / [id number] Ins Sckt Rsp Djo Srg +4mm Hum Hxe+ Implanted:Qty: 1 on 04/26/2022 by Mariano Guzmán MD at [facility] Left: Shoulder [employer] 12/26/2026 509-01-432 / / [id number] Humeral Stem Reverse Size 8mm X 108mm Implanted:Qty: 1 on 04/26/2022 by Mariano Guzmán MD at [facility] Left: Shoulder [employer] 10/05/2027 530-08-108 / / [id number] Rstrc Cmnt Cl Ct 10mm Implanted:Qty: 1 on 04/26/2022 by Mariano Guzmán MD at [facility] Left: Shoulder [employer] 07/03/2024 415-00-100 / / [id number] Rsp Humeral Socket Insert 32mm Semi-Constrain ed Implanted:Qty: 1 on 06/14/2022 by Mariano Guzmán MD at [facility] Left: Shoulder [employer] 08/12/2026 509-01-032 / / [id number] Spcr Hum Djo Srg Rsp +8mm Mnblck Strl Lf Implanted:Qty: 1 on 06/14/2022 by Mariano Guzmán MD at [facility] Left: Shoulder [employer] 04/12/2028 510-08-000 / / [id number] Head Glnd 32mm Rsp Ntrl Shldr Rtn Screw Implanted:Qty: 1 on 06/14/2022 by Mariano Guzmán MD at [facility] Left: Shoulder [employer] 05/17/2028 508-32-101 / / [id number] Screws Implanted:Qty: 1 on 08/10/2023 by Jace Muller MD at [facility] Left: Ankle AR-8935-32 / / Description:3.0-4.0 ARTHREX VENDOR TRAY Screw Implanted:Qty: 1 on 08/10/2023 by Jace Muller MD at [facility] Left: Ankle Arthrex Inc AR-8940-34 / / Description:3.0-4.0 ARTHREX TRAY Kit Bngf 3cc Aug Inj Implanted:Qty: 1 on 01/14/2024 by Jace Muller MD at [facility] Left: Ankle Transbiomed 08/30/2026 [id number] / / [id number] Graft Bone Ignite 2 Mini 4cc Pwr Mx - [id number] Implanted:Qty: 1 on 01/14/2024 by Jace Muller MD at [facility] Left: Ankle Transbiomed 07/19/2028 [id number] / [id number] / Allosync Pure 5cc Implanted:Qty: 1 on 01/14/2024 by Jace Muller MD at [facility] Left: Ankle Arthrex Inc 08/20/2028 / / [id number] 7.0 Screw 55 Implanted:Qty: 1 on 01/14/2024 by Jace Muller MD at [facility] Left: Ankle Arthrex Inc AR-8770-5H / / 7.0 Screw 40 Implanted:Qty: 1 on 01/14/2024 by Jace Muller MD at [facility] Left: Ankle Arthrex Inc AR-8770-40H / / Explanted Type Area Pump Rebuilder Device Identifier Shelf Expiration Date Model / Serial / Lot Cortical Screw 3.5mm Explanted:Qty: 1 on 10/25/2020 at [facility] Right: Ankle Wan [employer] [id number] / / 4.0mm Screw Explanted:Qty: 1 on 08/10/2023 at [facility] Left: Ankle AR-8940-32 / / Screw 3mm 20mm T10 Ft Slf-Tap Lck Strdr Explanted:Qty: 1 on 08/10/2023 by Felipe Bourne MD at [facility] Left: Ankle Arthrex Inc AR-8933L-20 / / Screw 3mm 18mm Va Slf-Tap Sld Lck Ankl Explanted:Qty: 1 on 08/10/2023 by Felipe Bourne MD at [facility] Left: Ankle Arthrex Inc AR-8933V-18 / / Wire K .062in 6in Fx 2 Troc Explanted:Qty: 2 on 08/10/2023 at [facility] Left: Ankle [employer] [id number] / / Screw 3.5mm 28mm T15 Ft Slf-Tap Sld Hxlb Implanted:Qty: 1 on 08/10/2023 by Jace Muller MD at [facility] Explanted:Qty: 1 on 01/14/2024 by Jace Muller MD at [facility] Left: Ankle Arthrex Inc AR-8935CL-2 8 / / Screw 3.5mm 26mm T15 Ft Slf-Tap Sld Hxlb Implanted:Qty: 1 on 08/10/2023 by Jace Muller MD at [facility] Explanted:Qty: 1 on 01/14/2024 by Jace Muller MD at [facility] Left: Ankle Ar[employer]rex Inc AR-8935CL-2 6 / / Plate Calc 7.5mm Stp Bone Implanted:Qty: 1 on 08/10/2023 by Jace Muller MD at [facility] Explanted:Qty: 1 on 01/14/2024 by Jace Muller MD at [facility] Left: Ankle Ar[employer]rex Inc AR-8949-075 / / 3.5mm Locking Screw Implanted:Qty: 1 on 08/10/2023 by Jace Muller MD at [facility] Explanted:Qty: 1 on 01/14/2024 by Jace Muller MD at [facility] Left: Ankle AR-8935CL-2 4 / / Description:3.0-4.0 ARTHREX VENDOR TRAY Screw 3mm 16mm Va Slf-Tap Sld Lck Ankl Implanted:Qty: 1 on 08/10/2023 by Felipe Bourne MD at [facility] Explanted:Qty: 1 on 01/14/2024 by Jace Muller MD at [facility] Left: Ankle Ar[employer]rex Inc AR-8933V-16 / / Screw 3mm 20mm Va Slf-Tap Sld Lck Ankl Implanted:Qty: 1 on 08/10/2023 by Felipe Bourne MD at [facility] Explanted:Qty: 1 on 01/14/2024 by Jace Muller MD at [facility] Left: Ankle Arthrex Inc AR-8933V-20 / / Procedures Procedure Name Priority Date/Time Associated Diagnosis Comments MRI LUMBAR SPINE WO CONTRAST Routine 07/16/2025 1:13 PM PLAN NURSE Lumbar pain Lumbar radiculopathy MRI CERVICAL SPINE WO CONTRAST Routine 07/16/2025 12:40 PM PLAN NURSE Neck pain Hx of cervical spine surgery XR LUMBAR SPINE 2 OR 3VW Routine 05/28/2025 1:05 PM CDT Lumbar pain COMPREHENSIVE METABOLIC PANEL Routine 09/17/2024 12:09 PM PLAN NURSE Positive double stranded 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 ANTIBODY + HIV P24 AG PANEL AM Draw 10/12/2017 4:43 AM PLAN NURSE HEPATITIS C ANTIBODY Routine 12/27/2015 5:08 PM CDT from Last 3 Months or Most Recently Relevant to Health Maintenance Results * MRI Lumbar Spine Wo Contrast (07/16/2025 1:13 PM PLAN NURSE) Anatomical Region Laterality Modality Spine Magnetic Resonan ce 07/16/2025 1:31 PM PLAN NURSE Impressions 07/16/2025 1:36 PM PLAN NURSE IMPRESSION: 1.Negative for fracture, suspicious intrinsic bony [...] 07/16/2025 1:36 PM Narrative 07/16/2025 1:36 PM PLAN NURSE PROCEDURE: MRI LUMBAR SPINE WO CONTRAST DATE/TIME [...] on a 1.0 [facility] MRI scanner. COMPARISON: Lumbar spine radiographs, [...] Cervical Spine Wo Contrast (07/16/2025 12:40 PM PLAN NURSE) Anatomical Region Laterality Modality Pelvis Magnetic Resonan ce 07/16/2025 12:4 8 PM PLAN NURSE Impressions 07/16/2025 12:53 PM PLAN NURSE IMPRESSION: 1.The postsurgical changes of prosthetic device [...] 07/16/2025 12:53 PM Narrative 07/16/2025 12:53 PM PLAN NURSE PROCEDURE: MRI CERVICAL SPINE WO CONTRAST DATE/TIME [...] [facility] open [facility]win MRI scanner. COMPARISON: CT cervical spine [...] Exam Date: 05/28/2025 1:05 PM Location: [facility] Indication: M54.50: Lumbar pain Findings/impression: [...] Exam Date: 05/28/2025 1:05 PM Location: [facility] Indication: M54.50: Lumbar pain Findings/impression: [...] (ABNORMAL) COMPREHENSIVE METABOLIC PANEL (09/17/2024 12:09 PM [facility]) BUN 17 7 - 26 mg/dL 09/17/2024 1:09 PM [facility] Creatinine 1.03(H) 0.56 - 0.96 mg/dL 09/17/2024 1:09 PM [facility] Sodium 139 136 - 145 mmol/L 09/17/2024 1:09 PM [facility] Potassium 3.9 3.5 - 4.5 mmol/L 09/17/2024 1:09 PM [facility] Chloride 103 98 - 107 mmol/L 09/17/2024 1:09 PM PLAN NURSE [facility] CO2 24 22 - 29 mmol/L 09/17/2024 1:09 PM [facility] Glucose 98 70 - 99 mg/dL 09/17/2024 1:09 PM [facility] Calcium 9.4 8.4 - 10.2 mg/dL 09/17/2024 1:09 PM [facility] Protein Total 8.2 6.0 - 8.3 g/dL 09/17/2024 1:09 PM [facility] Albumin 4.1 3.4 - 5.0 g/dL 09/17/2024 1:09 PM [facility] Bilirubin Total 0.4 0.2 - 1.2 mg/dL 09/17/2024 1:09 PM [facility] Alkaline Phosphatase 82 40 - 150 U/L 09/17/2024 1:09 PM [facility] ALT 30 5 - 55 U/L 09/17/2024 1:09 PM [facility] AST 32 5 - 34 U/L 09/17/2024 1:09 PM [facility] Anion Gap 12 6 - 16 09/17/2024 1:09 PM [facility] BUN/Creatinine Ratio 17 7 - 23 09/17/2024 1:09 PM [facility] Osmolality Calculated 290 275 - 295 mOsm/kg 09/17/2024 1:09 PM [facility] Albumin/Globulin Ratio 1.0(L) 1.1 - 2.3 09/17/2024 1:09 PM [facility] eGFR by CKD-EPI 64(L) >=90 mL/min/1.7 3 m2 09/17/2024 1:09 PM [facility] Blood BLOOD SPECIMEN / Unknown Lab Venipuncture / Unknown 09/17/2024 12:09 PM PLAN NURSE 09/17/2024 12:29 PM [facility] us Ev Lowery MD LAB - CHEMISTRY ORDERABLES Fi nal Result [facility] [address] [place] [address], [facility] [phone] * HIV-1 HIV-2 ANTIBODY + HIV P24 AG PANEL (10/12/2017 4:43 AM PLAN NURSE) HIV1/2 Ab + P24 Ag Non Reactive Non Reactive 10/12/2017 11:04 AM PLAN NURSE [facility] Blood BLOOD SPECIMEN / Unknown Venipuncture / Unknown 10/12/2017 4:43 AM PLAN NURSE 10/12/2017 4:57 AM PLAN NURSE Narrative [facility] - 10/12/2017 11:04 AM PLAN NURSE No Laboratory evidence of HIV infection. Singh Moyer MD LAB - CHEMISTRY ORDERAB LES Final Result [facility] [address] [place] [address] * HEPATITIS C ANTIBODY (12/27/2015 5:08 PM CDT) Pathologist [facility] Hepatitis C Antibody Non-react nieves Non-reac tive [facility] Comment: Hepatitis C Antibody screen indicates [...] LAB - CHEMISTRY ORDERABLES Fi nal Result [facility] [address] [phone] from Last 3 Months or Most Recently Relevant to Health Maintenance Insurance [facility] Advance Directives * Full Code (Latest [...] 8:14 PM 04/27/2022 6:26 PM Care Teams Parks Recreation Director Relationship Specialty [place] [address] [place] [phone] PCP - General 10/22/18 Pablo Liriano MD [address] [place] [address] [phone] Orthopedic Surgery 05/22/19 Evan Willis MD [address] [place], [place] [phone] Medical Oncologist Medical Oncology 11/02/21 Charles Kingston MD [address] [address] Narrow Gauge Engineer Cardiology 11/03/21
--- OUTSIDE RECORDS SUMMARY | 2025-08-12 22:00 | XMS_ITS | Encounter Summary ---
Author Organization [facility] Address [address] [place] [address] Care Team Providers Care Wash Oil Cooler Operator Name Role Phone Key Tolliver MD Primary Care Provider [phone] Reason for Visit * Reason Comments Medication Refill Encounter Details Date Type Department Care Team ([facility] Contact Info) Description 11/20/2021 Refill [facility] [id number] [facility] [address] [place] [address] Rodolfo Truong MD [address] [place] [address] Social History Tobacco Use Types Packs/Day Years Used Date Smoking Tobacco: Never Smokeless Tobacco: Never Alcohol Use Standard Drinks/Week Comments No 0 (1 standard drink = 0.6 oz pur e alcohol) Comments No Sex and Gender Information Value Date Recorded Sex Assigned at Not on file Legal Sex Female 1:52 PM RECORDS MANAGEMENT ENGINEER Gender Identity Not on file Sexual Orientation Not on file documented as of this encounter Plan of Treatment Upcoming Encounters Date Type Department Care Team (Late Contact Info) Description 12/24/2025 2:15 PM CDT Office Visit [facility] Oncology and Hematology - [place] [address] [place] [address] Evan Willis MD [address] [facility] [address] [place] [address] documented as of this encounter Visit Diagnoses Not on filedocumented in this encounter Care Teams Wash Oil Cooler Operator Relationship Specialty Start Date End Date Key Tolliver MD [address] [place] [address] PCP - General Internal Medicine 11/05/18 documented as of this encounter
--- OUTSIDE RECORDS SUMMARY | 2025-08-12 22:00 | XMS_ITS | Encounter Summary ---
Author Organization [facility] Address [address] [place] [address] Care Team Providers Care Preboarder Name Role Phone Key Tolliver MD Primary Care Provider Pablo Liriano MD Unavailable [phone] Evan Willis MD Unavailable [phone] Charles Kingston MD Unavailable Reason for Visit * Reason Comments Refill Request Encounter Details Date Type Department Care Team (Late st Contact Info) Description 06/27/2025 Refill [facility] - Orthopedic Surgery [address] [place] [phone] Latrice Salinas MD [address] [facility] [place] [address] Refill Request Social History Tobacco [...] on file Legal Sex Female 11:46 AM UX DEVELOPER Gender Identity Not on file Sexual Orientation Not on file Occupation Industry Job Start Date Job End Date Unemployed - on disability Not on file Not on file N ot on file documented as of this encounter Functional Status * Is person deaf or have serious hearing difficulty? Answer Date of Assessment Author No 06/14/2022 12:15 AM CDT Halyie Quijano RN * Is person blind or [...] (Latest Contact Info) Description 09/09/2025 11:15 AM UX DEVELOPER Office Visit [facility] - Orthopedics [address] [facility] [place] [address] Yandel Petersen MD [address] [place] [address] 10/14/2025 7:20 AM UX DEVELOPER Hospital Encounter [facility] [place] [address] [address] Mariano Guzmán MD [address] [place] [address] Surgery General 10/14/2025 7:20 AM UX DEVELOPER - 10/14/2025 9:08 AM UX DEVELOPER Surgery [facility] [place] [address] [address] Mariano Guzmán MD [address] [place] [address] ARTHROSCOPY SHOULDER BICEP TENODESIS, DEBRIDEMENT 10/22/2025 2:40 PM UX DEVELOPER Office Visit [facility] - Orthopedic Surgery [address] [place] [phone] Mariano Guzmán MD [address] [place] [address] 03/11/2026 2:00 PM CDT Office Visit [facility] - Rheumatology [address] [place] [address], [place] [phone] Ev Lowery MD [address] [place] [address] [place] [phone] Scheduled Procedures Name Priority Associated Diagnoses Date/Ti me ARTHROSCOPY SHOULDER BICEP TENODESIS Chronic pain in right shoulder Biceps tendinitis of right shoulder 10/14/2025 7:20 AM UX DEVELOPER documented as of this encounter Goals Goal Patient Goal Type Associated Problems Recent Progress Patient-Stated? Author Mobility General Improving( 1:50 PM CDT) Coreen Rider, RN Note: Expected end date: 12/01/2020 The goal is to maintain or improve your mobility at the optimum level for you. Interventions: Mobility General Worsening( 1:20 PM UX DEVELOPER) Lilo Xiong, DARRON Note: Expected end date: [...] shoulder documented in this encounter Care Teams Preboarder Relationship Specialty [place] [address] [place] [phone] PCP - General 10/22/18 Pablo Liriano MD [address] [place] [phone] Orthopedic Surgery 05/22/19 Evan Willis MD [address] [place] [phone] Medical Oncologist Medical Oncology 11/02/21 Charles Kingston MD [address] [place] [phone] Special Events Fundraiser Cardiology 11/03/21 documented as of this encounter
--- OUTSIDE RECORDS SUMMARY | 2025-08-12 22:00 | XMS_ITS | Clinical Summary ---
Author Organization [facility] Address [address] [facility] [place] [address] Care Team Providers Care Api Developer Name Role Phone Key Tolliver MD Primary Care Provider [phone] Allergies Active Allergy Reactions Criticality Noted Date [...] mouth daily. Active naloxone (NARCAN) 4 mg/spray [place], Non-Aerosol EMERGENCY USE ONLY: Administer 1 spray [...] Abstract 06/25/2025 2:00 PM CDT Office Visit [facility] - [place] [address] [place] [address] Evan Willis MD Malignant neoplasm of upper-outer quadrant of left breast in female, estrogen receptor positive (CMS/HCC) (Primary Dx) 06/18/2025 Orders Only [facility] - [place] [address] [place] [address] Evan Willis MD 06/17/2025 Orders Only [facility] - [place] [address] [place] [address] Evan Willis MD from Last 3 Months [...] on file Legal Sex 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 Gender Identity Not on file Sexual Orientation [...] cm (5' 5) 08/11/2024 12:5 5 PM 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 Body Mass Index 37.97 08/11/2024 12:55 PM 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 Plan of Treatment Upcoming Encounters Date Type Department Care Team (Late st Contact Info) Description 12/24/2025 2:15 PM CDT Office Visit [facility] - [place] [address] [facility] [address] [place] [address] Evan Willis MD [address] [facility] [address] [place] [address] Health Maintenance Due Date Last [...] 09/11/2027 09/11/2017 Medical Devices Implanted Type Area Land Department Head Device Identifier Shelf Expiration Date Model / Serial / Lot Molding Line Operator Clip Surgiclip Ii Yordan 9.75in [id number] - [id number] Implanted:Qty: 1 on 10/23/2019 by Rodolfo Truong MD at [facility] Clip N/A: Breast [employer] - [employer] [id number] 06/02/2024 [id number] / / [id number] Natrelle Inspira Softtouch Breast Implant Implanted:Qty: 1 on 07/28/2024 by Rodolfo Truong MD at [facility] Other Right: Breast [employer] [id number] 10/08/2028 SSX-750 / [id number] / Natrelle Inspira Softtouch Breast Implant Implanted:Qty: 1 on 07/28/2024 by Rodolfo Truong MD at [facility] Other Left: Breast [employer]ICAL [id number] 07/16/2026 SSF-745 / [id number] / Description:Both Allergan Im plants Requisition,[id number]. Knee Replacement-Yves Plate/ Screws Of Neck Left Shoulder Replacement Explanted Type Area Land Department Head Device Identifier Shelf Expiration Date Model / Serial / Lot Tissue Gun Number W/ Suture Tabs Implanted:Qty: 1 on 10/23/2019 by Rodolfo Truong MD at [facility] Explanted:Qty: 1 on 04/06/2020 at [facility] Mammary Left: Breast [employer]ICAL [id number] 07/07/2024 133S-MX-1 3-T / [id number] / Description:Filled with 120m l 0.9% NaCl Both Allergan tissue expanders are processed on requisition [id number]. Tissue Gun Number With Suture Tabs Implanted:Qty: 1 on 10/23/2019 by Rodolfo Truong MD at [facility] Explanted:Qty: 1 on 04/06/2020 at [facility] Mammary Right: Breast [employer]- MEDICAL 04/25/2024 133S-MX-1 3-T / [id number] / Description:Requisition # [id number] Natrelle Inspira Softtouch Breast Implant 450cc Implanted:Qty: 1 on 04/06/2020 by Rodolfo Truong MD at [facility] Explanted:Qty: 1 on 08/16/2020 at [facility] Mammary Left: Breast [employer]ICAL [id number] 08/17/2024 SSF-450 / [id number] / Description:Both Allergan Br east Implants are processed on requisition [id number]. Natrelle Inspira Softtouch Breast Implant 525cc Implanted:Qty: 1 on 04/06/2020 by Rodolfo Truong MD at [facility] Explanted:Qty: 1 on 08/16/2020 at [facility] Mammary Right: Breast [employer]ICAL [id number] 12/29/2023 SSX-525 / [id number] / Description:Requisition # [id number]. Natrelle Inspira Soft Touch Ssf-560 Implanted:Qty: 1 on 08/16/2020 at [facility] Explanted:Qty: 1 on 02/22/2023 by Rodolfo Truong MD at [facility] Right: Breast [employer]- MEDICAL [id number] 06/21/2024 SSF-560 / [id number] / Description:Requisition # [id number] left breast Imp Breast Inspira Ssx 700ml Ssx-700 - [id number] Explanted:Qty: 1 on 02/22/2023 at [facility] [place]: Breast [employer]- MEDICAL 01/04/2026 SSX-700 / [id number] / Natrelle Inspira Softtouch Ssx-615 Implanted:Qty: 1 on 08/16/2020 at [facility] Explanted:Qty: 1 on 02/22/2023 by Rodolfo Truong MD at [facility] Right: Breast [employer]- MEDICAL [id number] 10/15/2024 SSX-615 / [id number] / Description:both Allergan re placement breast implants are processed on requisition [id number]. Imp Breast Inspira Ssf 650ml Ssf-650 - [id number] Implanted:Qty: 1 on 02/22/2023 [place]fo [place] [facility]:Qty: 1 on 07/28/2024 by Rodolfo Truong MD at [facility] Left: Breast [employer]- MEDICAL 09/11/2027 SSF-650 / [id number] / Imp Breast Inspira Ssx 615ml Ssx-615 - [id number] Implanted:Qty: 1 on 02/22/2023 by Rod[place]fo Tru[place] [facility] [place]ed:Qty: 1 on 07/28/2024 by Rodolfo Truong MD at [facility] Right: Breast [employer]- MEDICAL 10/15/2024 SSX-615 / [id number] / Description:Original implant placed on 08/16/2020 was [...] [facility] RX [employer] Medicaid RX [employer] Commercial GENERIC PAYOR [facility] MEDICAID Advance Directives For more information, please contact: [phone] * Full Code (Latest Code Status on [...] 8:44 AM 10/23/2019 2:10 PM Care Teams Api Developer Relationship Specialty [place] [address] [place] [phone] PCP - General Internal Medicine 11/05/18
[2025-08-13] VITALS (23 sets, daily range): BP systolic 116–164; BP diastolic 55–104; PULSE 81–104; RESP 14–22; O2SAT 95–100
--- NOTE | 2025-08-13 00:14 | ECG_ITS ---
Test Date: 2025-08-13 00:53:38 Measurements Intervals [place] Rate: 87 P: 51 MS: 160 QRS: -19 QRSD: 103 T: 93 QT: 388 QTc: 469 Interpretive Statements SINUS RHYTHM POSSIBLE LEFT ATRIAL ENLARGEMENT LEFT VENTRICULAR HYPERTROPHY WITH ST-T CHANGE MINIMAL Q WAVES- HIGH LATERAL LEADS CANNOT R/O SEPTAL INFARCT, AGE INDETERMINATE BORDERLINE T WAVE ABNORMALITY- ANTERIOR LEADS ABNORMAL ECG Compared to ECG 08/07/2025 10:39:21 No significant changes Electronically Signed On 08-13-2025 06:14:07 ARTS AND CRAFTS INSTRUCTOR by Scottie oMntgomery D.O.
--- NOTE | 2025-08-13 00:49 | ED_ITS ---
HPI - Dizziness General Chief Complaint: Dizziness <Amanda Whittaker APRN - Last Filed: 08/13/25 03:26> Stated Complaint: Dizziness x 1 hour <Amanda Whittaker APRN - Last Filed: 08/13/25 03:26> Time Seen by Provider: 08/13/25 00:30 <Amanda Whittaker APRN - Last Filed: 08/13/25 03:26> History of Present Illness HPI Narrative: Patient is a 55-year-old female who presents to the ER with dizziness. She reports around 4:00 p.m. this evening she you was standing up and felt as though she was going to pass out. Patient reports that the room was spinning and she developed a headache. She reports she had breast reduction surgery 5 days ago. Patient reports her pain is well controlled at this time. She denies any vomiting, abdominal pain, back pain, or chest pain. Patient endorses a history high blood pressure, hepatic steatosis, and multiple orthopedic conditions, including a knee replacement. <Amanda Whittaker APRN - Last Filed: 08/13/25 03:26> Related Data Home Medications: Home Medications ?Medication ?Instructions ?Recorded ?Confirmed ?Last Taken ?Type venlafaxine 225 mg tablet,extended 225 mg PO QAM 10/1307/28/25 07/27/25 History release 24 hr famotidine 20 mg tablet 20 mg PO QAM 10/11/2307/27/25 History nifedipine 30 mg tablet,extended 90 mg PO QAM 10/11/23 07/28/25 07/28/25 History release albuterol sulfate 90 mcg/actuation 2 puff inhalation Q 4-6H PRN 09/16/24 07/28/25 07/27/25 History aerosol inhaler shortness of breath or wheez ing omeprazole 40 mg capsule,delayed 40 mg PO QAM 09/16/24 07/28/25 07/27/25 History release losartan 25 mg tablet 25 mg PO DAILY 07/28/25 12/01/2508/06/25 History metoprolol succinate 100 mg 100 mg PO DAILY 07/28/25 1 10/08/24 08/07/25 History tablet,extended release 24 hr trazodone 150 mg tablet 150 mg PO QHS 07/28/2507/2807/27/25 History <Amanda Whittaker APRN - Last Filed: 08/13/25 03:26> Allergies/Adverse Reactions: Allergies Allergy/AdvReac Type Severity Reaction Status Date / Time meperidine AdvReac Severe HEADACHE Verified 08/11/25 15:34 scopolamine AdvReac Severe Headache Verified 08/11/25 15:34 adhesive tape AdvReac Unknown Rash, Verified 08/11/25 15:34 REDNESS, BURNING silver (From Tegaderm AG AdvReac BLISTER/REDNESS Verified 08/11/25 15:34 Mesh) AT SITE <Amanda Whittaker APRN - Last Filed: 08/13/25 03:26> Review of Systems 2 Review of Systems: All systems reviewed & are unremarkable except as noted in HPI and below <Amanda Whittaker APRN - Last Filed: 08/13/25 03:26> [facility] Past Medical History Medical History: Medical History History of breast cancer s/p bilateral mastectomy, chemo, radiation Hypothyroidism, unspecified hx of, no longer on medications Hearing loss Gastroesophageal reflux disease History of revision of total replacement of right knee joint Systemic lupus erythematosus Eczema Pancreatitis COPD (chronic obstructive pulmonary disease) Asthma Migraines Iron deficiency anemia History of blood transfusion. Hypertension Depression Sepsis <Amanda Whittaker APRN - Last Filed: 08/13/25 03:26> Surgical History Surgical History: Surgical History History of knee replacement procedure of right knee History of knee surgery 11/08/23- Rev right TKA History of hysterectomy History of repair of right rotator cuff Status post trigger finger release History of fusion of cervical spine Status post transverse rectus abdominis muscle flap breast reconstruction History of endoscopic sinus surgery History of bilateral mastectomy History of appendectomy History of cholecystectomy History of carpal tunnel release Port-A-Cath in place <Amanda Whittaker APRN - Last Filed: 08/13/25 03:26> Family History Family History: Family History Other Family history of malignant neoplasm Hypertension <Amanda Whittaker APRN - Last Filed: 08/13/25 03:26> Social History Social History: Social History Social History: Caffeine-none Surrogate medical decision maker: Domingo Mcnulty, spouse. Code status: Full code. Smoking status: Never smoker Second hand tobacco smoke exposure: No Additional smoking assessment comments: chewed tobacco occassionally as a teen Alcohol intake: never Substance use: never Substance use type: does not use Lack of Transportation: No Lack of Food: Never True Current Housing: I Have Housing Concerned About Future Housing: No Difficulty Paying Gas/Electric Bills: No Difficulty Paying for Meds: No Currently Unemployed: No Education: High School Diploma/GED Difficulty w/ Childcare or Family Care: No Living arrangements: with family Additional living arrangements comments: HUSB Occupation/Education: unemployed Spiritual care concerns: No <Amanda Whittaker APRN - Last Filed: 08/13/25 03:26> Exam 2 Narrative: GENERAL: Well appearing, well-nourished, non-toxic, in no acute distress. HEAD: Normocephalic, atraumatic. NECK: Supple. No adenopathy, no masses. RESPIRATORY: Airway patent, respirations nonlabored. Clear to auscultation bilaterally, no rales, rhonchi, wheezing. CARDIOVASCULAR: Regular rate and rhythm without murmurs. Peripheral pulses 2+ and equal bilaterally. ABDOMINAL: Soft, nontender, nondistended, no hepatosplenomegaly. Normoactive BS. MUSCULOSKELETAL: Moves all extremities. Strength/ROM intact without gross deformities. SKIN: Warm, dry, normal color. No rashes. NEURO: A&O X3. Speech clear. Cranial nerves II-XII intact. No ataxic movements. PSYCHIATRIC: Appropriate mood and affect. Normal interaction. <Amanda Whittaker APRN - Last Filed: 08/13/25 03:26> Course HEALTH INFORMATION ADMINISTRATOR/PA Physician Supervision This visit was performed by both a physician and an APC. I performed all aspects of the MDM as documented. <Anibal Rodríguez DO - Last Filed: 08/13/25 06:21> Vital Signs Vital signs: Vital Signs Temperature 98.2 F 08/12/25 21:58 Pulse Rate 91 08/12/25 21:58 Respiratory Rate 18 08/12/25 21:58 Blood Pressure 121/73 08/12/25 21:58 Pulse Oximetry 98 08/12/25 21:58 Oxygen Delivery Room Air 08/12/25 21:58 Temperature 98.2 F 08/12/25 21:58 Pulse Rate 87 08/13/25 05:01 Respiratory Rate 21 H 08/13/25 05:01 Blood Pressure 137/81 08/13/25 05:01 Pulse Oximetry 100 08/13/25 05:01 Oxygen Delivery Room Air 08/13/25 01:05 <Amanda Whittaker, STOCK CLERK [employer] - Last Filed: 08/13/25 03:26> Vital Signs Temperature 98.2 F 08/12/25 21:58 Pulse Rate 91 08/12/25 21:58 Respiratory Rate 18 08/12/25 21:58 Blood Pressure 121/73 08/12/25 21:58 Pulse Oximetry 98 08/12/25 21:58 Oxygen Delivery Room Air 08/12/25 21:58 Temperature 98.2 F 08/12/25 21:58 Pulse Rate 87 08/13/25 05:01 Respiratory Rate 21 H 08/13/25 05:01 Blood Pressure 137/81 08/13/25 05:01 Pulse Oximetry 100 08/13/25 05:01 Oxygen Delivery Room Air 08/13/25 01:05 <Anibal Rodríguez, DO - Last Filed: 08/13/25 06:21> MDM MDM Narrative Medical decision making narrative: Patient is a 55-year-old female who presents to the ER with dizziness. She reports around 4:00 p.m. this evening she you was standing up and felt as though she was going to pass out. Patient reports that the room was spinning and she developed a headache. She reports she had breast reduction surgery 5 days ago. Patient reports her pain is well controlled at this time. She denies any vomiting, abdominal pain, back pain, or chest pain. Patient endorses a history of high blood pressure, hepatic steatosis, and multiple orthopedic conditions, including a knee replacement. Labs Ordered: CBC, CMP, PTT, INR, UA, magnesium, COVID/flu/RSV Imaging Ordered: CT brain, CTA PE chest Medications Ordered: Valium 5 mg IV x2, meclizine p.o., 1 L normal saline IV bolus Results: Patient's CT brain indicates no acute hemorrhage, hydrocephalus or herniation. MDM: Pt's BP and HR elevated with standing during orthostatic vital signs. She reports her symptoms of dizziness also worsen with standing up. Pt continues to endorse a headache, but reports she felt as though she was going to pass out when she stood up. Staff report pt became diaphoretic at time of standing and they were worried she was going to fall backwards. Consults: 0300- Spoke with hospitalist, Dr. Thomas, who requests pt have a CTA PE scan to rule out a PE post-operatively. She also advised pt receive 30cc/kg Normal Saline bolus. Risks: PERC score PERC Rule for Pulmonary Embolism from [email or web address] on 08/13/2025 All calculations should be rechecked by clinician prior to use RESULT SUMMARY: 2 criteria If any criteria are positive, the PERC rule cannot be used to rule out PE in this patient. INPUTS: Age >=0 ?> 1 = Yes HR >=00 ?> 0 = No O? sat on room air <95% ?> 0 = No Unilateral leg swelling ?> 0 = No Hemoptysis ?> 0 = No Recent surgery or trauma ?> 1 = Yes Prior PE or DVT ?> 0 = No Hormone use ?> 0 = No 0300- Care signed out to Dr. Rodríguez pending CTA PE scan results. <Amanda Whittaker, STOCK CLERK [employer] - Last Filed: 08/13/25 03:26> Patient is a 55-year-old female who presents to the ER with dizziness. She reports around 4:00 p.m. this evening she you was standing up and felt as though she was going to pass out. Patient reports that the room was spinning and she developed a headache. She reports she had breast reduction surgery 5 days ago. Patient reports her pain is well controlled at this time. She denies any vomiting, abdominal pain, back pain, or chest pain. Patient endorses a history of high blood pressure, hepatic steatosis, and multiple orthopedic conditions, including a knee replacement. Labs Ordered: CBC, CMP, PTT, INR, UA, magnesium, COVID/flu/RSV Imaging Ordered: CT brain, CTA PE chest Medications Ordered: Valium 5 mg IV x2, meclizine p.o., 1 L normal saline IV bolus Results: Patient's CT brain indicates no acute hemorrhage, hydrocephalus or herniation. MDM: Pt's BP and HR elevated with standing during orthostatic vital signs. She reports her symptoms of dizziness also worsen with standing up. Pt continues to endorse a headache, but reports she felt as though she was going to pass out when she stood up. Staff report pt became diaphoretic at time of standing and they were worried she was going to fall backwards. Consults: 0300- Spoke with hospitalist, Dr. Thomas, who requests pt have a CTA PE scan to rule out a PE post-operatively. She also advised pt receive 30cc/kg Normal Saline bolus. Risks: PERC score PERC Rule for Pulmonary Embolism from [email or web address] on 08/13/2025 All calculations should be rechecked by clinician prior to use RESULT SUMMARY: 2 criteria If any criteria are positive, the PERC rule cannot be used to rule out PE in this patient. INPUTS: Age >=0 ?> 1 = Yes HR >=00 ?> 0 = No O? sat on room air <95% ?> 0 = No Unilateral leg swelling ?> 0 = No Hemoptysis ?> 0 = No Recent surgery or trauma ?> 1 = Yes Prior PE or DVT ?> 0 = No Hormone use ?> 0 = No 0300- Care signed out to Dr. Rodríguez pending CTA PE scan results. CT of the chest preliminary findings radiology impression is likely postprocedural air and fluid is seen within the bilateral breast. Fluid is seen surrounding the right and left breast implants with question of rim enhancement. This may represent expected postsurgical change with underlying developing abscess not excluded. Evaluation of the subsegmental arteries is limited due to motion. No central pulmonary artery embolism. Otherwise no acute finding seen within the chest. On reassessment patient is resting comfortably appearing in no acute distress, vital signs stable, feels overall well at this time. Patient informed of all results, potential diagnoses, we discussed orthostatic hypotension, the medications that she is on including metoprolol and nifedipine, the risk of injury. We also discussed blood pressure management in the importance of keeping a log of her blood pressures. Patient ambulated without difficulty. Suspected component of the medications that she is on with the metoprolol and nifedipine in addition to trazodone and [place] Flexeril and the diazepam that was given to her. Added additional labs including a BNP and a troponin. I talked with the hospitalist who notes no indications for any admission from a medical standpoint. Dr. Munoz paged, no call back at this time. Patient is overall slightly upset because she was told that she is going to be admitted and her went home. Patient was reassessed at the bedside. No changes in physical exam. Patient is in no acute distress. The patient has remained stable throughout the entire ED visit. We discussed all of her results, the ports of rising slowly and if she gets lightheaded to lay completely flat on the ground, reasons to immediately return to the emergency department, patient has follow-up coming up with her plastic surgeon instructed to follow-up as planned. Counseled patient regarding diagnostic results and potential diagnosis. Anticipatory guidance provided. Patient instructed to follow up with her plastic surgeon as planned. Patient counseled on: false reassurance from an emergency department evaluation; no current evidence of a medical emergency; return immediately for any new, recurrent, worsening, concerning, or refractory symptoms. Medications discussed with patient. Additional verbal and printed discharge instructions were given and discussed with the patient. Patient verbally acknowledges understanding of condition and discharge instructions. All questions were answered to the patient's satisfaction. Patient is in agreement with the plan of care. The patient is stable for discharge and was discharged without incident. 06:15 AM -I spoke with Dr. Munoz who notes no concerns from his standpoint, patient can follow-up with her primary care physician, no reason to bring patient in the hospital, agrees with plan of care for discharge and strict return precautions. <Anibal Rodríguez, DO - Last Filed: 08/13/25 06:21> Differential Diagnosis Differential Diagnosis: Vertigo, headache, dehydration, postoperative pain <Amanda Whittaker APRN - Last Filed: 08/13/25 03:26> Lab Data MDM Lab Attestation statement: I personally reviewed the patient's lab results. <Amanda Whittaker APRN - Last Filed: 08/13/25 03:26> Result diagrams: 08/13/25 01:09 08/13/25 01:09 <Amanda Whittaker APRN - Last Filed: 08/13/25 03:26> Labs: Lab Results 08/13/25 08/13/25 08/13/25 Range/Units 00:58 01:07 01:09 WBC 8.1 (4.5-10.0) K/mm3 RBC 4.70 (4.2-5.4) M/mm3 Hgb 12.7 (12.0-15.0) g/dL Hct 39.2 (37.0-47.0) % MCV 83.4 (80-100) fl MCH 27.0 (26-34) pg MCHC 32.4 (32-36) g/dl RDW 13.8 (11.5-14.5) % Plt Count 338 (150-375) k/mm3 MPV 8.2 (7.4-10.4) fl Immature Gran % (Auto) 0.4 (0-0.5) % Neut % (Auto) 52.5 (45.5-73.1) % Lymph % (Auto) 37.1 (18.3-44.2) % [place] % (Auto) 8.0 (2.6-8.5) % Eos % (Auto) 1.5 (0-4.4) % Baso % (Auto) 0.5 (0.2-1.2) % Lymph # (Auto) 3.00 (0.9-3.2) K/mm3 [place] # (Auto) 0.7 H (0.1-0.6) K/mm3 Eos # (Auto) 0.1 (0-0.3) K/mm3 Baso # (Auto) 0.0 (0.0-0.1) K/mm3 Abs Immat Gran (auto) 0.03 (0.00-0.031) K/mm3 Absolute Neuts (auto) 4.2 (1.3-6.7) K/mm3 Absolute Nucleated RBC 0.000 (0.0-0.012) K/mm3 Nucleated RBC % 0.0 (0.0-0.2) % PT 13.5 (11.1-14.7) Seconds INR 1.0 APTT 27.8 (22.3-36.8) Seconds Sodium 139 (137-145) mmol/L Potassium 3.8 (3.4-5.0) mmol/L Chloride 104 (98-107) mmol/L Carbon Dioxide 25 (22-30) mmol/L Anion Gap 10 (4-12) mmol/L BUN 10 (7-17) mg/dL Creatinine 0.80 (0.7-1.0) mg/dL Estim Creat Clear Calc 79 ml/min Estimated GFR > 60 (59 - ) Glucose 108 (65-110) mg/dL Calcium 9.4 (8.4-10.2) mg/dL Magnesium 2.2 (1.6-2.3) mg/dL Total Bilirubin 0.5 (0.2-1.3) mg/dL AST 29 (14-36) U/L ALT 23 (6-35) U/L Alkaline Phosphatase 92 (38-126) U/L Troponin I < 0.012 (0.000-0.034) ng/mL NT-Pro-B Natriuret Pep 27 (19.9-100) pg/mL Total Protein 9.4 H (6.3-8.2) g/dL Albumin 4.4 (3.5-5.1) g/dL Urine Color Yellow (Yellow) Urine Appearance Clear (Clear) Urine pH 7.0 (5.0-9.0) Ur Specific [place] 1.019 (1.001-1.035) Urine Protein Negative (Negative) mg/dL Urine Glucose (UA) Negative (Negative) mg/dL Urine Ketones Trace H (Negative) mg/dL Ur Blood (Man) Negative (Negative) Urine Nitrate Negative (Negative) Urine Bilirubin Negative (Negative) Urine Urobilinogen 1.0 (<2.0) mg/dL Leukocyte Esterase Rfl Negative (Negative) RAEGAN/UL POC Urine HCG, Qual Negative (Negative) Influenza A (RT-PCR) Negative (Negative) Influenza B (RT-PCR) Negative (Negative) RSV (RT-PCR) Negative (Negative) SARS-CoV-2 RNA (RT-PCR) Negative (Negative) <Amanda Whittaker, STOCK CLERK [employer] - Last Filed: 08/13/25 03:26> Lab Results 08/13/25 08/13/25 08/13/25 Range/Units 00:58 01:07 01:09 WBC 8.1 (4.5-10.0) K/mm3 RBC 4.70 (4.2-5.4) M/mm3 Hgb 12.7 (12.0-15.0) g/dL Hct 39.2 (37.0-47.0) % MCV 83.4 (80-100) fl MCH 27.0 (26-34) pg MCHC 32.4 (32-36) g/dl RDW 13.8 (11.5-14.5) % Plt Count 338 (150-375) k/mm3 MPV 8.2 (7.4-10.4) fl Immature Gran % (Auto) 0.4 (0-0.5) % Neut % (Auto) 52.5 (45.5-73.1) % Lymph % (Auto) 37.1 (18.3-44.2) % [place] % (Auto) 8.0 (2.6-8.5) % Eos % (Auto) 1.5 (0-4.4) % Baso % (Auto) 0.5 (0.2-1.2) % Lymph # (Auto) 3.00 (0.9-3.2) K/mm3 [place] # (Auto) 0.7 H (0.1-0.6) K/mm3 Eos # (Auto) 0.1 (0-0.3) K/mm3 Baso # (Auto) 0.0 (0.0-0.1) K/mm3 Abs Immat Gran (auto) 0.03 (0.00-0.031) K/mm3 Absolute Neuts (auto) 4.2 (1.3-6.7) K/mm3 Absolute Nucleated RBC 0.000 (0.0-0.012) K/mm3 Nucleated RBC % 0.0 (0.0-0.2) % PT 13.5 (11.1-14.7) Seconds INR 1.0 APTT 27.8 (22.3-36.8) Seconds Sodium 139 (137-145) mmol/L Potassium 3.8 (3.4-5.0) mmol/L Chloride 104 (98-107) mmol/L Carbon Dioxide 25 (22-30) mmol/L Anion Gap 10 (4-12) mmol/L BUN 10 (7-17) mg/dL Creatinine 0.80 (0.7-1.0) mg/dL Estim Creat Clear Calc 79 ml/min Estimated GFR > 60 (59 - ) Glucose 108 (65-110) mg/dL Calcium 9.4 (8.4-10.2) mg/dL Magnesium 2.2 (1.6-2.3) mg/dL Total Bilirubin 0.5 (0.2-1.3) mg/dL AST 29 (14-36) U/L ALT 23 (6-35) U/L Alkaline Phosphatase 92 (38-126) U/L Troponin I < 0.012 (0.000-0.034) ng/mL NT-Pro-B Natriuret Pep 27 (19.9-100) pg/mL Total Protein 9.4 H (6.3-8.2) g/dL Albumin 4.4 (3.5-5.1) g/dL Urine Color Yellow (Yellow) Urine Appearance Clear (Clear) Urine pH 7.0 (5.0-9.0) Ur Specific [place] 1.019 (1.001-1.035) Urine Protein Negative (Negative) mg/dL Urine Glucose (UA) Negative (Negative) mg/dL Urine Ketones Trace H (Negative) mg/dL Ur Blood (Man) Negative (Negative) Urine Nitrate Negative (Negative) Urine Bilirubin Negative (Negative) Urine Urobilinogen 1.0 (<2.0) mg/dL Leukocyte Esterase Rfl Negative (Negative) RAEGAN/UL POC Urine HCG, Qual Negative (Negative) Influenza A (RT-PCR) Negative (Negative) Influenza B (RT-PCR) Negative (Negative) RSV (RT-PCR) Negative (Negative) SARS-CoV-2 RNA (RT-PCR) Negative (Negative) <Anibal Rodríguez DO - Last Filed: 08/13/25 06:21> Imaging Data Attestation: I personally reviewed and interpreted this imaging study as follows: < Amanda Whittaker APRN - Last Filed: 08/13/25 03:26> Radiologist's impression: Patient's CT brain indicates no acute hemorrhage, hydrocephalus or herniation. <Amanda Whittaker APRN - Last Filed: 08/13/25 03:26> Discharge Plan Discharge Clinical Impression: Near syncope <Amanda Whittaker APRN - Last Filed: 08/13/25 03:26> Patient Disposition: Home <Amanda Whittaker APRN - Last Filed: 08/13/25 03:26> Condition: Stable <Amanda Whittaker APRN - Last Filed: 08/13/25 03:26> Instructions: Antibiotic Form, Near Syncope (ED) <Amanda Whittaker APRN - Last Filed: 08/13/25 03:26> Additional Instructions: Follow-up with your plastic surgeon as planned and also follow-up with your primary care physician in the next 1-2 days for reassessment, rest and stay well hydrated, rise from a lying down or seated position slowly and if you feel lightheaded immediately lay flat on the ground and if the symptoms do not pass promptly call EMS. Return immediately to the emergency department for any new or concerning symptoms especially any emergent concerns for life, limb, eyesight. <Amanda Whittaker APRN - Last Filed: 08/13/25 03:26> Patient Language: Cymraes <Amanda Whittaker APRN - Last Filed: 08/13/25 03:26> Prescriptions: No Action trazodone 150 mg tablet 150 mg PO QHS metoprolol succinate 100 mg tablet extended release 24 hr 100 mg PO DAILY losartan 25 mg tablet 25 mg PO DAILY hydrocodone-acetaminophen 5-325 mg tablet 1 tablet PO Q4-6H PRN (Reason: pain) Qty: 16 0RF cephalexin 500 mg capsule 500 mg PO Q12H Qty: 14 0RF cyclobenzaprine 5 mg tablet 5 mg PO Q8H PRN (Reason: muscle spasm) Qty: 12 0RF polyethylene glycol 3350 [ClearLax] 17 gram/dose powder 17 g PO DAILY Qty: 238 0RF venlafaxine 225 mg tablet extended release 24hr 225 mg PO QAM nifedipine 30 mg tablet extended release 90 mg PO QAM famotidine 20 mg tablet 20 mg PO QAM albuterol sulfate 90 mcg/actuation HFA aerosol inhaler 2 puff INHALATION Q4-6H PRN (Reason: shortness of breath or wheezing) omeprazole 40 mg capsule,delayed release(DR/EC) 40 mg PO QAM <Amanda Whittaker APRN - Last Filed: 08/13/25 03:26> Follow-up/Referrals: Unruly,Lu Mackey. [Primary Care Provider] - 2 Days <Amanda Whittaker APRN - Last Filed: 08/13/25 03:26> Time of Disposition: 06:07 <Amanda Whittaker APRN - Last Filed: 08/13/25 03:26> 06:07 <Anibal Rodríguez DO - Last Filed: 08/13/25 06:21>
[2025-08-13 01:05] LABS: Add Urine Microscopic? NO; Appearance Urine Clear (Clear); Glucose Urine UA Negative (Negative); Leukocyte Esterase Ur Negative LEU/UL (Negative); Nitrate Urine Negative (Negative); Specific Grav Ur 1.019 (1.001-1.035)
[2025-08-13 01:09] LABS: BEDSIDEPREGUCG Negative (Negative)
[2025-08-13] MEDS: SODIUM CHLORIDE 0.9% IV 1,000 ML 999 ML IV CONT ×3 (01:11→03:43)
[2025-08-13] MEDS: diazePAM INJ (*CRX) 10 MG/2 ML SYRINGE 5 MG IV PUSH ×2 (01:11→02:11)
[2025-08-13 01:17] LABS: Hematocrit 39.2 % (37.0-47.0); Hemoglobin 12.7 g/dL (12.0-15.0); Immature Granulocyte Percent A 0.4 % (0-0.5); Lymphocytes Absolute Auto 3.00 K/mm3 (0.9-3.2); Mean Corpuscular HGB Conc 32.4 g/dl (32-36); Mean Corpuscular Hemoglobin 27.0 pg (26-34); Mean Corpuscular Volume 83.4 fl (80-100); Nucleated Red Blood Cells Absolute Auto 0.000 K/mm3 (0.0-0.012); Nucleated Red Blood Cells Perc 0.0 % (0.0-0.2); Platelet Count Result 338 k/mm3 (150-375); Red Blood Count 4.70 M/mm3 (4.2-5.4); White Blood Count 8.1 K/mm3 (4.5-10.0)
--- OUTSIDE RECORDS SUMMARY | 2025-08-13 01:22 | XMS_ITS | Patient Health Record ---
Author Organization [facility] [employer] Address [address] [facility] [address] [place] [address] Care Team Providers Care Wet End Helper Name Role Phone Kate Burgos Unavailable [phone] Reason For Referral No Information Medications Medication [...] ML (15 ML) ORAL SOLUTION *Reorder from [facility] for eRx and Interaction Alerts* Active Dicyclomine HCl 20 MG Tablet Oral Active SEROquel 100 MG Tablet Oral Active Ferrous Sulfate 325 (65 Fe) MG Tablet Oral Active Plan Of Treatment No Information
--- OUTSIDE RECORDS SUMMARY | 2025-08-13 01:22 | XMS_ITS | Encounter Summary ---
Author Organization [facility] Address [address] [place] [address] Care Team Providers Care Cereal Popper Name Role Phone Key Tolliver MD Primary Care Provider Pablo Liriano MD Unavailable [phone] Evan Willis MD Unavailable Charles Kingston MD Unavailable Reason for Visit * Reason Onset Date Comments Question 02/20/2025 Encounter Details Date Type Department Care Team (Late st Contact Info) Description 02/20/2025 Telephone [facility] - Orthopedic Surgery [address] [address] Tamie Olivas, RN Question Social [...] on file Legal Sex Female 11:46 AM STRINGED INSTRUMENT ASSEMBLER Gender Identity Not on file Sexual Orientation [...] (Latest Contact Info) Description 09/09/2025 11:15 AM STRINGED INSTRUMENT ASSEMBLER Office Visit [facility] - Orthopedics [address] [facility] [place] [address] Yandel Petersen MD [address] [place] [address] 10/14/2025 7:20 AM STRINGED INSTRUMENT ASSEMBLER Hospital Encounter [facility] Op [address] [address] Mariano Guzmán MD [address] [address] Surgery General 10/14/2025 7:20 AM STRINGED INSTRUMENT ASSEMBLER - 10/14/2025 9:08 AM STRINGED INSTRUMENT ASSEMBLER Surgery [facility] [place] [address] [address] Mariano Guzmán MD [address] [address] ARTHROSCOPY SHOULDER BICEP TENODESIS, DEBRIDEMENT 10/22/2025 2:40 PM STRINGED INSTRUMENT ASSEMBLER Office Visit [facility] - Orthopedic Surgery [address], [address] [place] [phone] Mariano Guzmán MD [address] [address] 03/11/2026 2:00 PM CDT Office Visit [facility] - Rheumatology [address] [place] [address], [place] [phone] Ev Lowery MD [address] [place] [address] [place] [phone] Scheduled Procedures Name Priority Associated Diagnoses Date/Ti me ARTHROSCOPY SHOULDER BICEP TENODESIS Chronic pain in right shoulder Biceps tendinitis of right shoulder 10/14/2025 7:20 AM STRINGED INSTRUMENT ASSEMBLER documented as of this encounter Goals Goal Patient Goal Type Associated Problems Recent Progress Patient-Stated? Author Mobility General Improving( 1:50 PM CDT) Coreen Rider, RN Note: Expected end date: 12/01/2020 The goal is to maintain or improve your mobility at the optimum level for you. Interventions: Mobility General Worsening( 1:20 PM STRINGED INSTRUMENT ASSEMBLER) No Lilo Kaminski RN Note: Expected end date: 11/17/2019 The goal is to maintain or improve your mobility at the optimum level for you. Interventions: PAIN General No Shira Sun RN Note: Expected end date: 01/18/2020 Patient's pain/discomfort is manageable. Interventions: documented as of this encounter Visit Diagnoses Not on filedocumented in this encounter Care Teams Cereal Popper Relationship Specialty Start Date End Date Key Tolliver MD [address] [place] [phone] PCP - General 10/22/18 Pablo Liriano MD [address] [place] [phone] Orthopedic Surgery 05/22/19 Evan Willis MD [address] [place] [phone] Medical Oncologist Medical Oncology 11/02/21 Charles Kingston MD [address] [place] [phone] Strapping Machine Operator Cardiology 11/03/21 documented as of this encounter
--- OUTSIDE RECORDS SUMMARY | 2025-08-13 01:22 | XMS_ITS | Clinical Summary ---
Author Organization [facility] Address [address] [place] [address] Phone Care Team Providers Care Cereal Supervisor Name Role Phone Key Tolliver MD [...] Insurance MEDICAID [employer] Care Teams Cereal Supervisor Relationship Specialty Start Date End Date Key Tolliver MD [address] [place] [address] PCP - General Internal Medicine 03/14/20
--- OUTSIDE RECORDS SUMMARY | 2025-08-13 01:22 | XMS_ITS | Encounter Summary ---
Author Organization [facility] Address [address] [place] [address] Care Team Providers Care Animal Maintenance Supervisor Name Role Phone Key Tolliver MD Primary Care Provider [phone] Reason for Visit * Reason Comments Medication Refill Encounter Details Date Type Department Care Team ([facility] Contact Info) Description 11/05/2019 Refill [facility] Plastic Surgery and Burn [address] [address] Rodolfo Truong MD [address] [facility] [address] [place] [address] Social History Tobacco Use Types Packs/Day Years Used Date Smoking Tobacco: Never Smokeless Tobacco: Never Alcohol Use Standard Drinks/Week Comments No 0 (1 standard drink = 0.6 oz pur e alcohol) Comments No Sex and Gender Information Value Date Recorded Sex Assigned at Not on file Legal Sex Female 1:52 PM METAL NEUTRALIZER Gender Identity Not on file Sexual Orientation Not on file documented as of this encounter Plan of Treatment Upcoming Encounters Date Type Department Care Team (Late Contact Info) Description 12/24/2025 2:15 PM CDT Office Visit [facility] Oncology and Hematology - [place] [address] [facility] [address] [place] [address] Evan Willis MD [address] [facility] [address] [place] [address] documented as of this encounter Visit Diagnoses Not on filedocumented in this encounter Care Teams Animal Maintenance Supervisor Relationship Specialty Start Date End Date Key Tolliver MD [address] [place] [address] PCP - General Internal Medicine 11/05/18 documented as of this encounter
--- OUTSIDE RECORDS SUMMARY | 2025-08-13 01:23 | XMS_ITS | Clinical Summary ---
Author Organization [facility] Address [address] [facility] [place] [address] Care Team Providers Care Hunting And Fishing Guide Name Role Phone Key Tolliver MD Primary Care Provider [phone] Allergies Active Allergy Reactions Criticality Noted Date [...] mouth daily. Active naloxone (NARCAN) 4 mg/spray [place], Non-Aerosol EMERGENCY USE ONLY: Administer 1 spray [...] Abstract 06/25/2025 2:00 PM CDT Office Visit [facility] Oncology and Hematology - [place] [address] [place] [address] Evan Willis MD Malignant neoplasm of upper-outer quadrant of left breast in female, estrogen receptor positive (CMS/HCC) (Primary Dx) 06/18/2025 Orders Only [facility] Oncology and Hematology - [place] [address] [place] [address] Evan Willis MD 06/17/2025 Orders Only [facility] Oncology and Hematology - [place] [address] [place] [address] Evan Willis MD from Last 3 Months [...] on file Legal Sex Female 1:52 PM PUNCH MOLDER Gender Identity Not on file Sexual Orientation [...] cm (5' 5) 08/11/2024 12:5 5 PM PUNCH MOLDER Body Mass Index 37.97 08/11/2024 12:55 PM PUNCH MOLDER Plan of Treatment Upcoming Encounters Date Type Department Care Team (Late st Contact Info) Description 12/24/2025 2:15 PM CDT Office Visit [facility] Oncology and Hematology - [place] [address] [facility] [address] [place] [address] Evan Willis MD [address] [facility] [address] [place] [address] Health Maintenance Due Date Last [...] 09/11/2027 09/11/2017 Medical Devices Implanted Type Area Bpm Analyst Device Identifier Shelf Expiration Date Model / Serial / Lot Home Health Care Physician Clip Surgiclip Ii Yordan 9.75in [id number] - [id number] Implanted:Qty: 1 on 10/23/2019 by Rodolfo Truong MD at [facility] Clip N/A: Breast [employer] - COVIDIEN [id number] 06/02/2024 [id number] / / [id number] Natrelle Inspira Softtouch Breast Implant Implanted:Qty: 1 on 07/28/2024 by Rodolfo Truong MD at [facility] Other Right: Breast [employer] MEDICAL [id number] 10/08/2028 SSX-750 / [id number] / Natrelle Inspira Softtouch Breast Implant Implanted:Qty: 1 on 07/28/2024 by Rodolfo Truong MD at [facility] Other Left: Breast [employer]- MEDICAL [id number] 07/16/2026 SSF-745 / [id number] / Description:Both Allergan Im plants Requisition,[id number]. Knee Replacement-Yves Plate/ Screws Of Neck Left Shoulder Replacement Explanted Type Area Bpm Analyst Device Identifier Shelf Expiration Date Model / Serial / Lot Tissue Infection Control Manager W/ Suture Tabs Implanted:Qty: 1 on 10/23/2019 by Rodolfo Truong MD at [facility] Explanted:Qty: 1 on 04/06/2020 at [facility] Mammary Left: Breast [employer]ICAL [id number] 07/07/2024 133S-MX-1 3-T / [id number] / Description:Filled with 120m l 0.9% NaCl Both Allergan tissue expanders are processed on requisition [id number]. Tissue Infection Control Manager With Suture Tabs Implanted:Qty: 1 on 10/23/2019 by Rodolfo Truong MD at [facility] Explanted:Qty: 1 on 04/06/2020 at [facility] Mammary Right: Breast [employer]- MEDICAL 04/25/2024 133S-MX-1 3-T / [id number] / Description:Requisition # [id number] Natrelle Inspira Softtouch Breast Implant 450cc Implanted:Qty: 1 on 04/06/2020 by Rodolfo Truong MD at [facility] Explanted:Qty: 1 on 08/16/2020 at [facility] Mammary Left: Breast [employer]- MEDICAL [id number] 08/17/2024 SSF-450 / [id number] / Description:Both Allergan Br east Implants are processed on requisition [id number]. Natrelle Inspira Softtouch Breast Implant 525cc Implanted:Qty: 1 on 04/06/2020 by Rodolfo Truong MD at [facility] Explanted:Qty: 1 on 08/16/2020 at [facility] Mammary Right: Breast [employer]- MEDICAL [id number] 12/29/2023 SSX-525 / [id number] / Description:Requisition # [id number]. Natrelle Inspira Soft Touch Ssf-560 Implanted:Qty: 1 on 08/16/2020 at [facility] Explanted:Qty: 1 on 02/22/2023 by Rodolfo Truong MD at [facility] Right: Breast [employer]- MEDICAL [id number] 06/21/2024 SSF-560 / [id number] / Description:Requisition # [id number] left breast Imp Breast Inspira Ssx 700ml Ssx-700 - [id number] Explanted:Qty: 1 on 02/22/2023 at [facility] Right: Breast [employer] MEDICAL 01/04/2026 SSX-700 / [id number] / Natrelle Inspira Softtouch Ssx-615 Implanted:Qty: 1 on 08/16/2020 at [facility] Explanted:Qty: 1 on 02/22/2023 by Rodolfo Truong MD at [facility] Right: Breast [employer] MEDICAL [id number] 10/15/2024 SSX-615 / [id number] / Description:both Allergan re placement breast implants are processed on requisition [id number]. Imp Breast Inspira Ssf 650ml Ssf-650 - [id number] Implanted:Qty: 1 on 02/22/2023 by Rodolfo Truong MD at [facility] [place] [place] Explanted:Qty: 1 on 07/28/2024 by Rodolfo Truong MD at [facility] Left: Breast [employer]- MEDICAL 09/11/2027 SSF-650 / [id number] / Imp Breast Inspira Ssx 615ml Ssx-615 - [id number] Implanted:Qty: 1 on 02/22/2023 by Rodolfo Truong MD at [facility] [place] [place] Explanted:Qty: 1 on 07/28/2024 by Rodolfo Truong MD at [facility] Right: Breast [employer]- MEDICAL 10/15/2024 SSX-615 / [id number] / Description:Original implant placed on 08/16/2020 was [...] [facility] RX [employer] Medicaid RX [facility] Commercial GENERIC PA[facility]OR [facility] MEDICAID Advance Directives For more information, please contact: [phone] * Full Code (Latest Code Status on [...] 8:44 AM 10/23/2019 2:10 PM Care Teams Hunting And Fishing Guide Relationship Specialty [place] [address] [place] [phone] PCP - General Internal Medicine 11/05/18
--- OUTSIDE RECORDS SUMMARY | 2025-08-13 01:23 | XMS_ITS | Clinical Summary ---
Author Organization [facility] Address [address] [place] [address] Care Team Providers Care Bridge Maintainer Name Role Phone Key Tolliver MD Primary Care Provider Pablo Liriano MD Unavailable [phone] Evan Willis MD Unavailable [phone] Charles Kingston MD Unavailable Source Comments [facility],non-owned Affiliates and Associated Physician Practices is amultiple site organization consisting of ambulatory clinics and hospital sitesin [place], [place], [place] and [place]. This disclosure is being madepursuant to the Care Everywhere program and may not contain all information available regarding this patient. Last updated 18.[facility] Allergies Active Allergy Reactions Criticality [...] 5 Active fish oil/omega-3 fatty acids (Promega;Cardi- [place] 3) 1000 MG capsule Take by mouth [...] days. 95 capsule 5 Active HYDROcodone-satish taminophen ([place]) 5-325 MG tabletIndicatio ns:Chronic left shoulder pain,History [...] hyperlipidemia 03/30/2021 Atherosclerotic heart diseas e of [place] coronary artery without angina pectoris 03/30/2021 Chest [...] Orthopedic Surgery [address] [place] [address] Mariano Guzmán MD Surgery Scheduling 07/16/2025 11:37 AM PASSENGER CAR CLEANING SUPERVISOR - 07/16/2025 11:59 PM PASSENGER CAR CLEANING SUPERVISOR Hospital Encounter [facility] Health Imaging Services - [place] [address] [place] [address] Yandel Petersen MD Discharge Disposition: Home or Self Care 07/16/2025 11:37 AM PASSENGER CAR CLEANING SUPERVISOR - 07/16/2025 11:59 PM PASSENGER CAR CLEANING SUPERVISOR Hospital Encounter [facility] Imaging Services - [facility] [address] [place] [address] Yandel Petersen MD Discharge Disposition: Home or Self Care 07/16/2025 Orders Only [facility] - Orthopedics [address] [place] [phone] Myriam Roman RN Neck pain ; Hx of cervical spine surgery; Lumbar pain; Lumbar radiculopathy 07/15/2025 Orders Only [facility] - Orthopedic Surgery [address] [place] [address] Mariano Guzmán MD Chronic pain in right shoulder ; Biceps tendinitis of right shoulder 07/09/2025 1:00 PM PASSENGER CAR CLEANING SUPERVISOR Office Visit [facility] - Orthopedic Surgery [address] [place] [address] Mariano Guzmán MD 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); Biceps tendinitis of right shoulder; Osteoarthritis of right glenohumeral joint 07/09/2025 Refill [facility] - Orthopedic Surgery [address] [place] [address] Zechariah Soto LPN MEDICATION REFILL 07/09/2025 Travel 06/30/2025 Orders Only [facility] - Orthopedic Surgery [address] [place] [phone] Yandel Petersen MD Neck pain ; Hx of cervical spine surgery; Lumbar pain; Lumbar radiculopathy 06/30/2025 Orders Only [facility] - Orthopedics [address] [place] [phone] Myriam Roman, DARRON Lumbar pain; Neck pain; Hx of cervical spine surgery 06/27/2025 Refill [facility] - Orthopedic Surgery [address] [place] [address] [phone] Latrice Salinas MD Refill Request 06/10/2025 Telephone [facility] - Orthopedics [address] [place] [phone] Myriam Roman, DARRON Appointment 06/05/2025 Telephone [facility] Physician [facility] - Orthopedics [address] [place] [phone] Myriam Roman fishing boat mate 05/28/2025 2:30 PM CDT Office Visit [facility] - Orthopedic Surgery [address] [place] [address] [phone] Yandel Petersen MD Lumbar pain (Primary Dx); Lumbar radiculopathy; Status post cervical disc replacement; Pain in joint of right shoulder 05/28/2025 1:00 PM CDT - 05/28/2025 11:59 PM CDT Hospital Encounter [facility] - Orthopedics [address] [place] [address], [address] [place] [phone] Yandel Petersen MD Discharge Disposition: Home or [...] on file Legal Sex Female 11:46 AM PASSENGER CAR CLEANING SUPERVISOR Gender Identity Not on file Sexual [...] 103 kg (227 lb) 07/09/2025 12:56 PM PASSENGER CAR CLEANING SUPERVISOR Height 165.1 cm (5' 5) 07/09/2025 12:56 PM PASSENGER CAR CLEANING SUPERVISOR Body Mass Index 37.77 07/09/2025 12:56 PM PASSENGER CAR CLEANING SUPERVISOR Plan of Treatment Upcoming Encounters Date Type Department Care Team (Latest Contact Info) Description 09/09/2025 11:15 AM PASSENGER CAR CLEANING SUPERVISOR Office Visit [facility] - Orthopedics [address] [place] [address], [place] [phone] Yandel Petersen MD [address] [place] [address] 10/14/2025 7:20 AM PASSENGER CAR CLEANING SUPERVISOR Hospital Encounter [facility] [place] [address] [place] [address] Mariano Guzmán MD [address] [place] [address] Surgery General 10/14/2025 7:20 AM PASSENGER CAR CLEANING SUPERVISOR - 10/14/2025 9:08 AM PASSENGER CAR CLEANING SUPERVISOR Surgery [facility] [place] [facility] [address] [place] [address] Mariano Guzmán MD [address] [place] [address] ARTHROSCOPY SHOULDER BICEP TENODESIS, DEBRIDEMENT 10/22/2025 2:40 PM PASSENGER CAR CLEANING SUPERVISOR Office Visit [facility] - Orthopedic Surgery [address] [place] [phone] Mariano Guzmán MD [address] [place] [address] 03/11/2026 2:00 PM CDT Office Visit [facility] - Rheumatology [address] [place] [address], [place] [phone] Ev Lowery MD [address] [place] [address] [place] [phone] Scheduled Procedures Name Priority Associated Diagnoses Date/Ti me ARTHROSCOPY SHOULDER BICEP TENODESIS Chronic pain in right shoulder Biceps tendinitis of right shoulder 10/14/2025 7:20 AM PASSENGER CAR CLEANING SUPERVISOR Health Maintenance Due Date Last Done [...] you. Interventions: Mobility General Worsening( 1:20 PM PASSENGER CAR CLEANING SUPERVISOR) No Lilo Kaminski RN Note: Expected end date: 11/17/2019 The goal is to maintain or improve your mobility at the optimum level for you. Interventions: PAIN General No Shira Sun RN Note: Expected end date: 01/18/2020 Patient's pain/discomfort is manageable. Interventions: Medical Devices Implanted Type Area Medical Insurance Coder Device Identifier Shelf Expiration Date Model / Serial / Lot Cmnt Bone Plc R+Ggnta 40gm Lf Grn Implanted:Qty: 1 on 10/11/2017 by Rajendra Ingram MD at [facility] Left: Knee [employer] 12/01/2020 [id number] / / [id number] Description:12 BEADS IN LEFT KNEE ON VICRYL SUTURE 21 BEADS IN RIGHT KNEE ON VICRYL SUTURE Brng [id number] Vngrd Arcm Kn Ant Stab Implanted:Qty: 1 on 10/16/2017 by Rajendra Ingram MD at [facility] Left: Knee [employer] 06/09/2022 [id number] / / Brng [id number] Vngrd Arcm Kn Ant Stab Implanted:Qty: 1 on 10/16/2017 by Rajendra Ingram MD at [facility] Right: Knee [employer] 07/25/2022 [id number] / / Cmpnt Tibtry Bmt As Mx Kn Intlk Prm Lck Implanted:Qty: 1 on 10/16/2017 by Rajendra Ingram MD at [facility] Left: Knee [employer] 07/11/2027 [id number] / / Cmpnt Tibtry Bmt As Mx Kn Intlk Prm Lck Implanted:Qty: 1 on 10/16/2017 by Rajendra Ingram MD at [facility] Right: Knee [employer] 06/17/2027 [id number] / / Kam Kn Tot Rev 50% Of 2014 Implanted:Qty: 1 on 10/16/2017 by Rajendra Ingram MD at [facility] Wan [employer] KR2 KNEE TO T REV WAN BILL ONLY / / Cmpnt Glnd 38mm Std Glenosphere Sckt Geovany Implanted:Qty: 1 on 03/19/2019 by Pablo Liriano MD at [facility] Left: Shoulder [employer] Inc 11/01/2023 [id number] / / Description:DXTND GLENOSPHER E STD K72DQ--61/22 LG Dxtend Mod Cent Epi 1 Ocampo Implanted:Qty: 1 on 03/19/2019 by Pablo Liriano MD at [facility] Left: Shoulder 01/01/2024 1307-20-101 / / Description:delta xtend mudu lar centered epiphysis Global Unite Std Stem Sz 8 Implanted:Qty: 1 on 03/19/2019 by Pablo Liriano MD at [facility] Left: Shoulder 08/02/2027 1100-08-100 / / Description:global unite por ocoat standard stem Dxtend Stand Pe Cup D38 +3mm Implanted:Qty: 1 on 03/19/2019 by Pablo Liriano MD at [facility] Left: Shoulder 1307-38-203 / / [id number] Description:Delta xtend lyudmila ral PE cup standard Sys Shld Tot Arthroplst Rev Implanted:Qty: 1 on 03/19/2019 by Pablo Liriano MD at [facility] Left: Shoulder [employer] S4 DEPUY / / Cmpnt Glnd 27mm Std Geovany Xtend Metaglene Implanted:Qty: 1 on 03/19/2019 by Pablo Liriano MD at [facility] Left: Shoulder [employer] 12/02/2023 1307-60-000 / / Description:DXTEND METAGLENE Dxtend Screw Lock D4.5x36mm Implanted:Qty: 1 on 03/19/2019 by Pablo Liriano MD at [facility] Left: Shoulder 12/02/2023 1307-90-036 / / Description:PACK ACL TISSUE FX CSTM SRG PRC DISP Screw 4.5mm 30mm Shldr Glnd Lck Geovany Implanted:Qty: 1 on 03/19/2019 by Pablo iLriano MD at [facility] Left: Shoulder [employer] 01/01/2024 1307-90-030 / / Description:DXTEND SCREW LOC K D4.8Z55GQ--25/22 LG 6.5mm Canellous Screw Implanted:Qty: 1 on 10/25/2020 by Anjelica Gutierres MD at [facility] Right: Ankle [employer] 486-55-01 / / 6.5mm Cancellous Screw Implanted:Qty: 1 on 10/25/2020 by Anjelica Gutierres MD at [facility] Right: Ankle [employer] / / Cortical Screw 2.7mm Implanted:Qty: 1 on 10/25/2020 by Anjelica Gutierres MD at [facility] Right: Ankle [employer] [id number] / / Screw 3.5mm 32mm 2.5mm Slf-Tap Sm Hex Implanted:Qty: 2 on 10/25/2020 by Anjelica Gutierres MD at [facility] Right: Ankle [employer] [id number] / / Screw 3.5mm 45mm 2.5mm Slf-Tap Sm Hex Implanted:Qty: 1 on 10/25/2020 by Anjelica Gutierres MD at [facility] Right: Ankle [employer] [id number] / / Graft Bone Alfs + Dbm 1cc Algrf Pst Implanted:Qty: 1 on 10/25/2020 by Anjelica Gutierres MD at [facility] Right: Ankle Allosource 04/08/2021 [id number] / / [id number] Bsplt Glnd 30mm Rsp Shldr P2 Strl Lf Implanted:Qty: 1 on 04/26/2022 by Mariano Guzmán MD at [facility] Left: Shoulder [employer] 03/23/2028 508-32-204 / / [id number] Screw 5mm 14mm Shldr Lck Rsp Glnd Bsplt Implanted:Qty: 1 on 04/26/2022 by Mariano Guzmán MD at [facility] Left: Shoulder [employer] 03/25/2028 506-03-114 / / [id number] Screw 5mm 14mm Shldr Lck Rsp Glnd Bsplt Implanted:Qty: 1 on 04/26/2022 by Mariano Guzmán MD at [facility] Left: Shoulder [employer] 04/05/2028 506-03-114 / / [id number] Screw 5mm 30mm Shldr Lck Rsp Glnd Bsplt Implanted:Qty: 1 on 04/26/2022 by Mariano Guzmán MD at [facility] Left: Shoulder [employer] 03/13/2028 506-03-130 / / [id number] Screw 5mm 30mm Shldr Lck Rsp Glnd Bsplt Implanted:Qty: 1 on 04/26/2022 by Mariano Guzmán MD at [facility] Left: Shoulder [employer] 03/18/2028 506-03-130 / / [id number] Cmnt Bone Djo Srg Cblt 40gm Hvisc Strl Implanted:Qty: 1 on 04/26/2022 by Mariano Guzmán MD at [facility] Left: Shoulder [employer] 03/16/2023 600-15-000 / / [id number] Head Glnd 32mm Rsp Ntrl Shldr Rtn Screw Implanted:Qty: 1 on 04/26/2022 by Mariano Guzmán MD at [facility] Left: Shoulder [employer] 03/22/2028 508-32-101 / / [id number] Ins Sckt Rsp Djo Srg +4mm Hum Hxe+ Implanted:Qty: 1 on 04/26/2022 by Mariano Guzmán MD at [facility] Left: Shoulder [employer] 12/26/2026 509-01-432 / / [id number] Humeral Stem Reverse Size 8mm X 108mm Implanted:Qty: 1 on 04/26/2022 by Mariano Guzmán MD at [facility] Left: Shoulder [employer] 10/05/2027 530-08-108 / / [id number] Rstr[address]mnt Cl Ct 10mm Implanted:Qty: 1 on 04/26/2022 by Mariano Guzmán MD at [facility] Left: Shoulder [employer] 07/03/2024 415-00-100 / / [id number] Rsp Humeral Socket Insert 32mm Semi-Constrain ed Implanted:Qty: 1 on 06/14/2022 by Mariano Guzmán MD at [facility] Left: Shoulder [employer] 08/12/2026 509-01-032 / / [id number] Spcr Hum Djo Srg Rsp +8mm Mnblck Strl Lf Implanted:Qty: 1 on 06/14/2022 by Mariano Guzmán MD at [facility] Left: Shoulder [employer] 04/12/2028 510-08-000 / / [id number] Head Glnd 32mm Rsp Ntrl Shldr Rtn Screw Implanted:Qty: 1 on 06/14/2022 by Mariano Guzmán MD at [facility] Left: Shoulder [employer] 05/17/2028 508-32-101 / / [id number] Screws Implanted:Qty: 1 on 08/10/2023 by Jace Muller MD at [facility] Left: Ankle AR-8935-32 / / Description:3.0-4.0 ARTHREX VENDOR TRAY Screw Implanted:Qty: 1 on 08/10/2023 by Jace Muller MD at [facility] Left: Ankle Arthrex Inc AR-8940-34 / / Description:3.0-4.0 ARTHREX TRAY Kit Bngf 3cc Aug Inj Implanted:Qty: 1 on 01/14/2024 by Jace Muller MD at [facility] Left: Ankle OnetoOnetext 08/30/2026 [id number] / / [id number] Graft Bone Ignite 2 Mini 4cc Pwr Mx - [id number] Implanted:Qty: 1 on 01/14/2024 by Jace Muller MD at [facility] Left: Ankle OnetoOnetext 07/19/2028 [id number] / [id number] / Allosync Pure 5cc Implanted:Qty: 1 on 01/14/2024 by Jace Muller MD at [facility] Left: Ankle Arthrex Inc 08/20/2028 / / [id number] 7.0 Screw 55 Implanted:Qty: 1 on 01/14/2024 by Jace Muller MD at [facility] Left: Ankle Arthrex Inc AR-8770-5H / / 7.0 Screw 40 Implanted:Qty: 1 on 01/14/2024 by Jace Muller MD at [facility] Left: Ankle Arthrex Inc AR-8770-40H / / Explanted Type Area Medical Insurance Coder Device Identifier Shelf Expiration Date Model / Serial / Lot Cortical Screw 3.5mm Explanted:Qty: 1 on 10/25/2020 at [facility] Right: Ankle Wan [employer] [id number] / / 4.0mm Screw Explanted:Qty: 1 on 08/10/2023 at [facility] Left: Ankle AR-8940-32 / / Screw 3mm 20mm T10 Ft Slf-Tap Lck Strdr Explanted:Qty: 1 on 08/10/2023 by Felipe Bourne MD at [facility] Left: Ankle Arthrex Inc AR-8933L-20 / / Screw 3mm 18mm Va Slf-Tap Sld Lck Ankl Explanted:Qty: 1 on 08/10/2023 by Felipe Bourne MD at [facility] Left: Ankle Arthrex Inc AR-8933V-18 / / Wire K .062in 6in Fx 2 Troc Explanted:Qty: 2 on 08/10/2023 at [facility] Left: Ankle [employer] [id number] / / Screw 3.5mm 28mm T15 Ft Slf-Tap Sld Hxlb Implanted:Qty: 1 on 08/10/2023 by Jace Muller MD at [facility] Explanted:Qty: 1 on 01/14/2024 by Jace Muller MD at [facility] Left: Ankle Arthrex Inc AR-8935CL-2 8 / / Screw 3.5mm 26mm T15 Ft Slf-Tap Sld Hxlb Implanted:Qty: 1 on 08/10/2023 by Jace Muller MD at [facility] Explanted:Qty: 1 on 01/14/2024 by Jace Muller MD at [facility] Left: Ankle Arthrex Inc AR-8935CL-2 6 / / Plate Calc 7.5mm Stp Bone Implanted:Qty: 1 on 08/10/2023 by Jace Muller MD at [facility] Explanted:Qty: 1 on 01/14/2024 by Jace Muller MD at [facility] Left: Ankle Arthrex Inc AR-8949-075 / / 3.5mm Locking Screw Implanted:Qty: 1 on 08/10/2023 by Jace Muller MD at [facility] Explanted:Qty: 1 on 01/14/2024 by Jace Muller MD at [facility] Left: Ankle AR-8935CL-2 4 / / Description:3.0-4.0 ARTHREX VENDOR TRAY Screw 3mm 16mm Va Slf-Tap Sld Lck Ankl Implanted:Qty: 1 on 08/10/2023 by Felipe Bourne MD at [facility] Explanted:Qty: 1 on 01/14/2024 by Jace Muller MD at [facility] Left: Ankle Arthrex Inc AR-8933V-16 / / Screw 3mm 20mm Va Slf-Tap Sld Lck Ankl Implanted:Qty: 1 on 08/10/2023 by Felipe Bourne MD at [facility] Explanted:Qty: 1 on 01/14/2024 by Jace Muller MD at [facility] Left: Ankle Arthrex Inc AR-8933V-20 / / Procedures Procedure Name Priority Date/Time Associated Diagnosis Comments MRI LUMBAR SPINE WO CONTRAST Routine 07/16/2025 1:13 PM PASSENGER CAR CLEANING SUPERVISOR Lumbar pain Lumbar radiculopathy MRI CERVICAL SPINE WO CONTRAST Routine 07/16/2025 12:40 PM PASSENGER CAR CLEANING SUPERVISOR Neck pain Hx of cervical spine surgery XR LUMBAR SPINE 2 OR 3VW Routine 05/28/2025 1:05 PM CDT Lumbar pain COMPREHENSIVE METABOLIC PANEL Routine 09/17/2024 12:09 PM PASSENGER CAR CLEANING SUPERVISOR Positive double stranded 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 ANTIBODY + HIV P24 AG PANEL AM Draw 10/12/2017 4:43 AM PASSENGER CAR CLEANING SUPERVISOR HEPATITIS C ANTIBODY Routine 12/27/2015 5:08 PM CDT from Last 3 Months or Most Recently Relevant to Health Maintenance Results * MRI Lumbar Spine Wo Contrast (07/16/2025 1:13 PM PASSENGER CAR CLEANING SUPERVISOR) Anatomical Region Laterality Modality Spine Magnetic Resonan ce 07/16/2025 1:31 PM PASSENGER CAR CLEANING SUPERVISOR Impressions 07/16/2025 1:36 PM PASSENGER CAR CLEANING SUPERVISOR IMPRESSION: 1.Negative for fracture, suspicious intrinsic [...] 07/16/2025 1:36 PM Narrative 07/16/2025 1:36 PM PASSENGER CAR CLEANING SUPERVISOR PROCEDURE: MRI LUMBAR SPINE WO CONTRAST [...] standard protocol on a 1.0 [facility] MRI scanner. COMPARISON: Lumbar spine [...] Cervical Spine Wo Contrast (07/16/2025 12:40 PM PASSENGER CAR CLEANING SUPERVISOR) Anatomical Region Laterality Modality Pelvis Magnetic Resonan ce 07/16/2025 12:4 8 PM PASSENGER CAR CLEANING SUPERVISOR Impressions 07/16/2025 12:53 PM PASSENGER CAR CLEANING SUPERVISOR IMPRESSION: 1.The postsurgical changes of prosthetic [...] 07/16/2025 12:53 PM Narrative 07/16/2025 12:53 PM PASSENGER CAR CLEANING SUPERVISOR PROCEDURE: MRI CERVICAL SPINE WO CONTRAST [...] 3VW Exam Date: 05/28/2025 1:05 PM Location: [facility] Indication: M54.50: Lumbar pain Findings/impression: [...] 3VW Exam Date: 05/28/2025 1:05 PM Location: [facility] Indication: M54.50: Lumbar pain Findings/impression: [...] (ABNORMAL) COMPREHENSIVE METABOLIC PANEL (09/17/2024 12:09 PM [facility]) BUN 17 7 - 26 mg/dL 09/17/2024 1:[address] [facility] Creatinine 1.03(H) 0.56 - 0.96 mg/dL 09/17/2024 1:[address] [facility] Sodium 139 136 - 145 mmol/L 09/17/2024 1:09 PM [facility] Potassium 3.9 3.5 - 4.5 mmol/L 09/17/2024 1:09 PM [facility] Chloride 103 98 - 107 mmol/L 09/17/2024 1:09 PM PASSENGER CAR CLEANING SUPERVISOR [facility] CO2 24 22 - 29 mmol/L 09/17/2024 1:09 PM [facility] Glucose 98 70 - 99 mg/dL 09/17/2024 1:09 PM [facility] Calcium 9.4 8.4 - 10.2 mg/dL 09/17/2024 1:09 PM [facility] Protein Total 8.2 6.0 - 8.3 g/dL 09/17/2024 1:09 PM [facility] Albumin 4.1 3.4 - 5.0 g/dL 09/17/2024 1:09 PM [facility] Bilirubin Total 0.4 0.2 - 1.2 mg/dL 09/17/2024 1:09 PM [facility] Alkaline Phosphatase 82 40 - 150 U/L 09/17/2024 1:09 PM [facility] ALT 30 5 - 55 U/L 09/17/2024 1:09 PM [facility] AST 32 5 - 34 U/L 09/17/2024 1:09 PM [facility] Anion Gap 12 6 - 16 09/17/2024 1:09 PM [facility] BUN/Creatinine Ratio 17 7 - 23 09/17/2024 1:09 PM [facility] Osmolality Calculated 290 275 - 295 mOsm/kg 09/17/2024 1:09 PM [facility] Albumin/Globulin Ratio 1.0(L) 1.1 - 2.3 09/17/2024 1:09 PM [facility] eGFR by CKD-EPI 64(L) >=90 mL/min/1.7 3 m2 09/17/2024 1:09 PM [facility] Blood BLOOD SPECIMEN / Unknown Lab Venipuncture / Unknown 09/17/2024 12:09 PM PASSENGER CAR CLEANING SUPERVISOR 09/17/2024 12:29 PM [facility] us Ev Lowery MD LAB - CHEMISTRY ORDERABLES Fi nal Result [facility] [address] [place] [address], [facility] [phone] * HIV-1 HIV-2 ANTIBODY + HIV P24 AG PANEL (10/12/2017 4:43 AM PASSENGER CAR CLEANING SUPERVISOR) HIV1/2 Ab + P24 Ag Non Reactive Non Reactive 10/12/2017 11:04 AM PASSENGER CAR CLEANING SUPERVISOR [facility] Blood BLOOD SPECIMEN / Unknown Venipuncture / Unknown 10/12/2017 4:43 AM PASSENGER CAR CLEANING SUPERVISOR 10/12/2017 4:57 AM PASSENGER CAR CLEANING SUPERVISOR Narrative [facility] - 10/12/2017 11:04 AM PASSENGER CAR CLEANING SUPERVISOR No Laboratory evidence of HIV infection. Singh Moyer MD LAB - CHEMISTRY ORDERAB LES Final Result [facility] [address] [place] [address] * HEPATITIS C ANTIBODY (12/27/2015 5:08 PM CDT) Pathologist [facility] Hepatitis C Antibody Non-react nieves Non-reac tive [facility] Comment: Hepatitis C Antibody screen indicates [...] LAB - CHEMISTRY ORDERABLES Fi nal Result [facility] [address] [phone] from Last 3 Months or Most Recently Relevant to Health Maintenance Insurance [facility] Advance Directives * Full Code (Latest [...] 8:14 PM 04/27/2022 6:26 PM Care Teams Bridge Maintainer Relationship Specialty [place] [address] [place] [phone] PCP - General 10/22/18 Pablo Liriano MD [address] [place] [address] [phone] Orthopedic Surgery 05/22/19 Evan Willis MD [address] [place], [place] [phone] Medical Oncologist Medical Oncology 11/02/21 Charles Kingston MD [address] [phone] Accident Report Clerk Cardiology 11/03/21
--- OUTSIDE RECORDS SUMMARY | 2025-08-13 01:23 | XMS_ITS | Encounter Summary ---
Author Organization [facility] Address [address] [place] [address] Care Team Providers Care Government Affairs Researcher Name Role Phone Key Tolliver MD Primary Care Provider Pablo Liriaon MD Unavailable [phone] Evan Willis MD Unavailable [phone] Charles Kingston MD Unavailable Reason for Visit * Reason Comments Refill Request Encounter Details Date Type Department Care Team (Late st Contact Info) Description 06/27/2025 Refill [facility] - Orthopedic Surgery [address] [place] [phone] Latrice Salinas MD [address] [facility] ORTHOPAED[place] [address] Refill Request Social History Tobacco [...] on file Legal Sex Female 11:46 AM ADVANCED NURSING PROFESSOR Gender Identity Not on file Sexual [...] (Latest Contact Info) Description 09/09/2025 11:15 AM ADVANCED NURSING PROFESSOR Office Visit [facility] - Orthopedics [address] [facility] [place] [address] Yandel Petersen MD [address] [place] [address] 10/14/2025 7:20 AM ADVANCED NURSING PROFESSOR Hospital Encounter [facility] [address] [address] Mariano Guzmán MD [address] [place] [address] Surgery General 10/14/2025 7:20 AM ADVANCED NURSING PROFESSOR - 10/14/2025 9:08 AM ADVANCED NURSING PROFESSOR Surgery [facility] [address] [address] Mariano Guzmán MD [address] [place] [place] [address] ARTHROSCOPY SHOULDER BICEP TENODESIS, DEBRIDEMENT 10/22/2025 2:40 PM ADVANCED NURSING PROFESSOR Office Visit [facility] - Orth[facility] Surgery [address] [place] [phone] Mariano Guzmán MD [address] [place] [address] 03/11/2026 2:00 PM CDT [facility]ology [address] [place] [address], [facility] [place] [phone] Ev Lowery MD [address] [place] [address] [place] [phone] Scheduled Procedures Name Priority Associated Diagnoses Date/Ti me ARTHROSCOPY SHOULDER BICEP TENODESIS Chronic pain in right shoulder Biceps tendinitis of right shoulder 10/14/2025 7:20 AM ADVANCED NURSING PROFESSOR documented as of this encounter Goals Goal Patient Goal Type Associated Problems Recent Progress Patient-Stated? Author Mobility General Improving( 1:50 PM CDT) Coreen Rider, RN Note: Expected end date: 12/01/2020 The goal is to maintain or improve your mobility at the optimum level for you. Interventions: Mobility General Worsening( 1:20 PM ADVANCED NURSING PROFESSOR) Lilo Xiong, DARRON Note: Expected end date: [...] shoulder documented in this encounter Care Teams Government Affairs Researcher Relationship Specialty [place] [address] [place] [phone] PCP - General 10/22/18 Pablo Liriano MD [address] [place] [id number] Orthopedic Surgery 05/22/19 Evan Willis MD [address] [place] [id number] Medical Oncologist Medical Oncology 11/02/21 Charles Kingston MD [address] [place] [phone] Agency Trainer Cardiology 11/03/21 documented as of this encounter
--- OUTSIDE RECORDS SUMMARY | 2025-08-13 01:23 | XMS_ITS | Encounter Summary ---
Author Organization [facility] Address [address] [place] [address] Care Team Providers Care Mine Engineering Supervisor Name Role Phone Key Tolliver MD Primary Care Provider [phone] Reason for Visit * Reason Comments Medication Refill Encounter Details Date Type Department Care Team ([facility] Contact Info) Description 05/11/2020 [facility] [address] [facility] [address] [place] [address] Rodolfo Truong MD [address] [place] [address] Malignant neoplasm of upper-outer quadrant [...] on file Legal Sex Female 1:52 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 Gender Identity Not on file Sexual Orientation [...] [facility] Oncology and Hematology - [place] [address] [place] [address] Evan Willis MD [address] [facility] [address] [place] [address] documented as of this encounter Visit Diagnoses Diagnosis Malignant neoplasm of upper-outer quadrant of left breast in female, estrogen receptor positive (CMS/HCC) documented in this encounter Care Teams Mine Engineering Supervisor Relationship Specialty [place] [address] [place] [phone] PCP - General Internal Medicine 11/05/18 documented as of this encounter
--- OUTSIDE RECORDS SUMMARY | 2025-08-13 01:23 | XMS_ITS | Clinical Summary ---
Author Organization [facility] Address [address] [place] [address] Care Team Providers Care Network Administrator Name Role Phone Key Tolliver MD [...] CDT - 06/11/2025 4:42 PM CDT Emergency [facility] Emergency Department [address] [place] [address] Fall, 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Primary Dx); Acute right-sided low back pain with right-sided sciatica; Sprain of left ankle, unspecified ligament, initial encounter Discharge Disposition: Discharge to home or self care 06/09/2025 Results Follow-Up [facility] Neurology [address] [facility] [address] [place] [phone] Peggy Reid MA EEG 06/08/2025 2:28 PM CDT - 06/08/2025 11:59 PM CDT Hospital Encounter [facility] MRI [address] [place] [address] Altered mental status, unspecified altered mental status type Discharge Disposition: Discharge to home or self care 06/08/2025 1:13 PM CDT - 06/08/2025 11:59 PM CDT Hospital Encounter [facility] Cardiac Testing [address] [place] [address] Altered mental status, unspecified altered mental status type Discharge Disposition: Discharge to home or self care 05/27/2025 Telephone [facility] Neurology [address] [place] [phone] Linden Walter Si, MD Scheduling Appointments (CALL SCHEDULING ) 05/26/2025 1:30 PM CDT Office Visit [facility] Neurology [address] [place] [phone] Linden Walter Si, MD Altered mental status, unspecified altered mental status type (Primary Dx); Stuttering 05/14/2025 2:33 PM CDT - 05/14/2025 11:59 PM CDT Hospital Encounter [facility] [address] [place] [phone] Discharge Disposition: Discharge to home or self care 05/14/2025 2:33 PM CDT - 05/14/2025 11:59 PM CDT Hospital Encounter [facility] [address] [place] [phone] Discharge Disposition: Discharge to home or self care 05/14/2025 2:00 PM CDT Office Visit [facility] Orthopedics and Sports Medicine at [address] [phone] Jace Muller MD Pain in left foot [...] on file Legal 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 WILY: WILY Report ID: [id number] Reading Location: [place] [address] Procedure Note Naveen Dash MD - 06/11/2025 [...] Naveen Dash M.D. WILY: WILY Report ID: [id number] Reading Location: [id number] Rashawn Cloud NP IMG CT PROCEDURES Final [...] Jose Chan M.D. KR: JAKE Report ID: [id number] Reading Location: [id number] Procedure Note Jose Chan MD - 06/11/2025 [...] Jose Chan M.D. KR: JAKE Report ID: [id number] Reading Location: [id number] Rashawn Cloud NP IMG XR PROCEDURES Final [...] by Rodolfo Tapia M.D. T: Report ID: [id number] Reading Location: [id number] Procedure Note Rodolfo Tapia, DO - 06/08/2025 EXAM DESCRIPTION: MRI BRAIN WO CONTRAST REASON FOR STUDY: Mental status change, unknown cause Pt is having episodes of dementia and acting like she is a child for pastfew months. PT doesn't recall episodes. They are per her daughter TECHNIQUE: Multiplanar imaging includes non-contrasted T1, T2, FLAIR, and diffusion with ADC map sequences. Additional sequence(s) sensitive [employer]. Images stored on PACS. COMPARISON: None available. [...] by Rodolfo Tapia M.D. T: Report ID: [id number] Reading Location: [id number] Linden Walter MD IM MRI PROCEDURES Final [...] agrees with it. ACC# Date Time Exam [id number] May 07, 2013 13:59:00 [facility] [id number] Bilateral Tomosynthesis Technologist(s): Ashley Batista; ; [id number] May 07, 2013 13:59:00 [facility] [id number] Diag Mammogram Bilateral Technologist(s): Ashley Batista; ; [id number] May 07, 2013 14:24:00 [facility] [id number] Sono Breast (Unilateral) L EXAMINATION: BILATERAL FULL [...] diagnostic mammogram and accompanying ultrasound performed at [facility] breast [place] on 04/28/2013. BREAST PARENCHYMAL COMPOSITION: Heterogeneously dense, [...] has been scheduled to return to the [facility] for an ultrasound-guided core needle biopsy [...] agrees with it. ACC# Date Time Exam [id number] May 07, 2013 13:59:00 [facility] [id number] Bilateral Tomosynthesis Technologist(s): Ashley Batista; ; [id number] May 07, 2013 13:59:00 [facility] [id number] Diag Mammogram Bilateral Technologist(s): Ashley Batista; ; [id number] May 07, 2013 14:24:00 [facility] [id number] Sono Breast (Unilateral) L EXAMINATION: BILATERAL FULL [...] diagnostic mammogram and accompanying ultrasound performed at [facility] on 04/28/2013. BREAST PARENCHYMAL COMPOSITION: Heterogeneously [...] has been scheduled to return to the [facility] for an ultrasound-guided core needle biopsy [...] 12:00 AM CDT PROCEDURE REPORT Patient: CHELA MCNULYT Account: [id number] Room No: 2619-01 : 1970 Patient Type: [...] Most Recently Relevant to Health Maintenance Insurance [facility] Care Teams Network Administrator Relationship Specialty Start Date End Date Key Tolliver MD [address] [place] [id number] PCP - General Internal Medicine 12/08/24
--- OUTSIDE RECORDS SUMMARY | 2025-08-13 01:23 | XMS_ITS | Clinical Summary ---
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 [...] Comments Blood Pressure 146/90 08/01/2018 1:02 PM SPECIAL TECHNICAL OPERATIONS OFFICER Pulse 89 08/01/2018 1:02 PM SPECIAL TECHNICAL OPERATIONS OFFICER Temperature 36.6 C (97.9 F) 08/01/2018 1:02 PM SPECIAL TECHNICAL OPERATIONS OFFICER Respiratory Rate 20 08/01/2018 1:02 PM SPECIAL TECHNICAL OPERATIONS OFFICER Oxygen Saturation 100% 08/01/2018 1:02 PM SPECIAL TECHNICAL OPERATIONS OFFICER Inhaled Oxygen Concentration - - Weight 88 kg (194 lb) 08/01/2018 1:02 PM SPECIAL TECHNICAL OPERATIONS OFFICER Height 167.6 cm (5' 6) 08/01/2018 1:02 PM SPECIAL TECHNICAL OPERATIONS OFFICER Body Mass Index 31.31 08/01/2018 1:02 PM SPECIAL TECHNICAL OPERATIONS OFFICER Plan of Treatment Health Maintenance Due Date [...]
--- OUTSIDE RECORDS SUMMARY | 2025-08-13 01:23 | XMS_ITS | Encounter Summary ---
Author Organization [facility] Address [address] [place] [address] Care Team Providers Care Conduit Bender Name Role Phone Key Tolliver MD Primary Care Provider [phone] Reason for Visit * Reason Comments Medication Refill Encounter Details Date Type Department Care Team ([facility] Contact Info) Description 11/20/2021 Refill [facility] [address] [facility] [address] [place] [address] Rodolfo Truong MD [address] [place] [address] Social History Tobacco Use Types Packs/Day Years Used Date Smoking Tobacco: Never Smokeless Tobacco: Never Alcohol Use Standard Drinks/Week Comments No 0 (1 standard drink = 0.6 oz pur e alcohol) Comments No Sex and Gender Information Value Date Recorded Sex Assigned at Not on file 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 Gender Identity Not on file Sexual Orientation Not on file documented as of this encounter Plan of Treatment Upcoming Encounters Date Type Department Care Team (Late Contact Info) Description 12/24/2025 2:15 PM CDT Office Visit [facility] Oncology and Hematology - [place] [address] [facility] [address] [place] [address] Evan Willis MD [address] [facility] [address] [place] [address] documented as of this encounter Visit Diagnoses Not on filedocumented in this encounter Care Teams Conduit Bender Relationship Specialty Start Date End Date Key Tolliver MD [address] [place] [address] PCP - General Internal Medicine 11/05/18 documented as of this encounter
--- OUTSIDE RECORDS SUMMARY | 2025-08-13 01:23 | XMS_ITS ---
Author Organization [facility] Address [address] [place] [address] Care Team Providers Care Agriculture Science Teacher Name Role Phone Key Tolliver MD Primary Care Provider Pablo Liriano MD Unavailable Evan Willis MD Unavailable [phone] Charles Kingston MD Unavailable Active Problems [...]
[2025-08-13 01:29] LABS: INR 1.0; Prothrombin Time 13.5 Seconds (11.1-14.7)
[2025-08-13 01:30] LABS: Partial Thromboplastin Time 27.8 Seconds (22.3-36.8)
[2025-08-13 01:34] LABS: Alanine Aminotransferase 23 U/L (6-35); Albumin Level 4.4 g/dL (3.5-5.1); Alkaline Phosphatase 92 U/L (38-126); Anion Gap 10 mmol/L (4-12); Aspartate Amino Transferase 29 U/L (14-36); Bilirubin,Total 0.5 mg/dL (0.2-1.3); Blood Urea Nitrogen 10 mg/dL (7-17); Calcium 9.4 mg/dL (8.4-10.2); Carbon Dioxide 25 mmol/L (22-30); Chloride 104 mmol/L (98-107); Estimated CRCL calculation 79 ml/min; Estimated Glomerular Filt Rate > 60; Glucose 108 mg/dL (65-110); Magnesium 2.2 mg/dL (1.6-2.3); Potassium 3.8 mmol/L (3.4-5.0); Sodium 139 mmol/L (137-145); Total Protein 9.4 g/dL (6.3-8.2)
[2025-08-13 01:40] LABS: Influenza A QL RT-PCR Negative (Negative); Influenza B QL RT-PCR Negative (Negative); RSV RNA, RT-PCR Negative (Negative); SARS-CoV-2 RNA PCR Negative (Negative)
[2025-08-13] MEDS: MECLIZINE HCL 25 MG TABLET PO (02:11)
[2025-08-13] MEDS: ACETAMINOPHEN 500 MG TABLET 1000 MG PO (04:50)
[2025-08-13 05:36] LABS: NT Pro B Type Natriuretic Pept 27 pg/mL (19.9-100); Troponin I < 0.012 ng/mL (0.000-0.034)
--- NOTE | 2025-08-13 06:32 | PC.NURSE ---
This RN walked with pt to ed exit with steady gait. Pt would get dizzy when she first went from sitting to standing position but felt better once she was up. Pt states she feels fine while walking to ED exit at this time.
== END 2025-08-13 06:34 | disposition home or self-care (01) ==
PROVIDERS: Emergency Provider Student in an Organized Health Care Education/Training Program; PCP Internal Medicine Infectious Disease
DX: R55 Syncope and collapse (principal); Z20.822 Contact with and (suspected) exposure to COVID-19; Z98.890 Other specified postprocedural states; I10 Essential (primary) hypertension; Z96.651 Presence of right artificial knee joint; Z98.1 Arthrodesis status; Z87.891 Personal history of nicotine dependence; Z90.710 Acquired absence of both cervix and uterus; Z90.13 Acquired absence of bilateral breasts and nipples; Z90.49 Acquired absence of other specified parts of digestive tract; Z79.899 Other long term (current) drug therapy; I51.7 Cardiomegaly; R94.31 Abnormal electrocardiogram [ECG] [EKG]
CPT/HCPCS: 36415; 70450; 71275; 80053; 81003; 81025; 83735; 83880; 84484; 85025; 85610; 85730; 87637; 93005; 96361; 96374; 96376; 99284; A9270; J3360; J7030; Q9967